=== PATIENT | male | born 1960 | race American Indian/Alaskan Native ===

== ENCOUNTER 2016-12-31 20:50 | Inpatient (IN) | payer MEDICAID ==
[2016-12-31 20:51] VITALS: BMI 26.4
[2016-12-31] MEDS ORDERED: Vitamins A & D Oint UD Foilpak ONE (23:17)
[2017-01-01 00:01] LABS: BASO % 0.5 % (0.0-2.0); EOS # 0.2 K/uL (0.0-0.7); EOS % 7.2 % (0.0-4.0); HEMATOCRIT 36.8 % (35.0-51.0); LYMPH # 1.5 K/uL (1.0-4.3); LYMPH % 43.6 % (20.0-40.0); MEAN CELL VOLUME 104.8 fL (80.0-94.0); MEAN CORPUSCULAR HEMOGLOBIN 35.3 pg (27.0-31.0); MEAN CORPUSCULAR HGB CONC 33.7 g/dL (33.0-37.0); MEAN PLATELET VOLUME 9.3 fL (7.2-11.7); MONO # 0.3 K/uL (0.0-0.8); NRBC % 0.4 % (0.0-2.0); RED CELL DISTRIBUTION WIDTH 13.4 % (11.5-14.5); WHITE BLOOD COUNT 3.4 K/uL (4.8-10.8)
[2017-01-01 00:06] LABS: CHLORIDE 97 mmol/L (98-107)
[2017-01-01 00:07] LABS: POTASSIUM 3.4 mmol/L (3.6-5.2)
[2017-01-01 00:09] LABS: AST/SGOT 153 U/L (17-59); BILIRUBIN,TOTAL 0.8 mg/dL (0.2-1.3); CARBON DIOXIDE 24 mmol/L (22-30); GFR AFRICAN-AMERICAN > 60
[2017-01-01 00:10] LABS: ALB/GLOB RATIO 0.9 (1.0-2.1); ALCOHOL SERUM 296 mg/dl (0-10); ALKALINE PHOSPHATASE 102 U/L (38-126); ALT/SGPT 23 U/L (21-72); BLOOD UREA NITROGEN 15 mg/dL (9-20); CALCIUM 8.8 mg/dl (8.6-10.4); GLUCOSE,RANDOM 123 mg/dL (75-110); TOTAL PROTEIN 9.1 g/dL (6.3-8.3)
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
[2017-01-01 01:11] LABS: SODIUM 147 mmol/L (132-148)
[2017-01-01] MEDS ORDERED: Potassium Chloride 20 mEq ER Tab PO STA (01:57)
--- NOTE | 2017-01-01 03:30 | CP.PCM.HP ---
<Carla Aldridge - Last Filed: 01/01/17 03:24> History of Present Illness - History of Present Illness History of Present Illness: CC: "seizures" HPI: Patient is a 56 year old male with medical history pertinent for alcohol abuse. Patient states he came to the hospital due to increased seizure activity today. Patient does not recall seizures. He admits to drinking 3 pints of vodka daily. He cannot recall when he last had seizures from withdrawal. Patient's last drink was earlier this evening. He denies tremors, visual, auditory and tactile hallucinations. He denies chest pain, shortness of breath, nausea, vomiting, urinary symptoms, diarrhea, constipation. Patient admits to umbilical and left lower quadrant abdominal pain. PMD: Dr. Huang PMH: Alcohol abuse, seizures, hypertension Medications: Dilantin 100 mg , Phenobarbital Allergies: NKDA Family History: not pertinent Social: Denies tobacco and illicit drug use. Drinks 3 pints of vodka daily. Present on Admission - Present on Admission Any Indicators Present on Admission: No History of DVT/PE: No History of Uncontrolled Diabetes: No Urinary Catheter: No Decubitus Ulcer Present: No Review of Systems - Constitutional Constitutional: absent: Chills, Fever - EENT Eyes: absent: Change in Vision - Cardiovascular Cardiovascular: absent: Chest Pain, Dyspnea - Respiratory Respiratory: absent: Cough, Dyspnea, Dyspnea on Exertion - Gastrointestinal Gastrointestinal: Abdominal Pain. absent: Constipation, Diarrhea, Nausea, Vomiting - Genitourinary Genitourinary: absent: Change in Urinary Stream - Integumentary Integumentary: Dry Skin - Neurological Neurological: absent: Tremor - Psychiatric Psychiatric: Anxiety, Depression. absent: Auditory Hallucinations, Hallucinations, Visual Hallucinations Past Patient History - Infectious Disease Hx of Infectious Diseases: None - Past Medical History & Family History Past Medical History?: Yes - Past Social History Smoking Status: Never Smoked - CARDIAC Hx Hypertension: Yes - PULMONARY Hx Bronchitis: Yes - NEUROLOGICAL Hx Seizures: Yes - HEENT Hx HEENT Problems: No - RENAL Hx Chronic Kidney Disease: Yes - ENDOCRINE/METABOLIC Hx Endocrine Disorders: No - INTEGUMENTARY Hx Dermatological Problems: Yes Other/Comment: multiple pimple like dark spots at the back/chest - MUSCULOSKELETAL/RHEUMATOLOGICAL Hx Arthritis: Yes Hx Fractures: Yes Hx Rheumatoid Arthritis: Yes - GASTROINTESTINAL Hx Gall Bladder Disease: Yes (s/p cholecystectomy) Hx Gastritis: Yes - PSYCHIATRIC Hx Anxiety: Yes Hx Depression: Yes Hx Post Traumatic Stress Disorder: Yes Hx Substance Use: No - SURGICAL HISTORY Hx Cholecystectomy: Yes - ANESTHESIA Hx Anesthesia: Yes Hx Anesthesia Reactions: No Hx Malignant Hyperthermia: No Meds Allergies/Adverse Reactions: Allergies Allergy/AdvReac Type Severity Reaction Status Date / Time No Known Allergies Allergy Verified 12/31/16 21:17 Physical Exam - Constitutional Appears: Non-toxic, No Acute Distress - Head Exam Head Exam: ATRAUMATIC, NORMAL INSPECTION, NORMOCEPHALIC - Eye Exam Eye Exam: EOMI, Normal appearance, PERRL - ENT Exam ENT Exam: Mucous Membranes Moist - Neck Exam Neck exam: Positive for: Normal Inspection - Respiratory Exam Respiratory Exam: Clear to Auscultation Bilateral, NORMAL BREATHING PATTERN. absent: Rales, Rhonchi, Wheezes - Cardiovascular Exam Cardiovascular Exam: +S1, +S2 - GI/Abdominal Exam GI & Abdominal Exam: Guarding, Normal Bowel Sounds, Soft, Tenderness - Extremities Exam Extremities exam: Positive for: normal inspection - Neurological Exam Neurological exam: Alert, Oriented x3 - Psychiatric Exam Psychiatric exam: Normal Affect, Normal Mood - Skin Skin Exam: Dry, Rash Results - Vital Signs Recent Vital Signs: Last Vital Signs Temp 98.1 F 01/01/17 02:30 Pulse 106 H 01/01/17 02:30 Resp 20 01/01/17 02:30 BP 131/76 01/01/17 02:30 Pulse Ox 96 01/01/17 02:30 - Labs Result Diagrams: 12/31/16 23:55 12/31/16 23:55 Assessment & Plan - Assessment and Plan (Free Text) Assessment: 1. EtOH Abuse Ativan 1 mg IVP Q3 PRN Ativan 1 mg po q6 MARISA Folic acid po daily MV po daily Thiamine po daily f/u CMP, Mag, Phos AM f/u hepatitis panel, hiv aspiration precautions seizure precautions 2. Seizures Dilantin 100 mg po TID Phenobarbital 32.4 mg po daily seizure precautions neuro checks 3. Prophylaxis SCD Protonix 20 mg po daily - Date & Time Date: 01/01/17 Time: 03:41 <Maxim Ugarte - Last Filed: 01/01/17 06:35> Results - Vital Signs Recent Vital Signs: Last Vital Signs Temp 98.1 F 01/01/17 02:30 Pulse 106 H 01/01/17 02:30 Resp 20 01/01/17 03:08 BP 131/76 01/01/17 02:30 Pulse Ox 96 01/01/17 03:08 - Labs Result Diagrams: 01/01/17 06:03 12/31/16 23:55 Labs: Laboratory Results - last 24 hr 01/01/17 06:03 WBC 3.1 L RBC 2.96 L Hgb 10.6 L Hct 30.9 L MCV 104.4 H MCH 35.8 H MCHC 34.2 RDW 12.9 Plt Count 83 L D MPV 8.5 Neut % (Auto) 39.3 L Lymph % (Auto) 35.5 [place] % (Auto) 18.1 H Eos % (Auto) 6.0 H Baso % (Auto) 1.1 Neut # 1.2 L Lymph # 1.1 [place] # 0.6 Eos # 0.2 Baso # 0.0 Assessment & Plan - Date & Time Date: 01/01/17 (I have seen and examined the patient. I agree with the findings and plan of care as documented by Dr. Aldridge. Patient with alcohol abuse and history of seizure. [facility] protocol. Monitor for withdrawal symptoms. Monitor for acute changes.) Time: 06:33 Attending/Attestation - Attestation I have personally seen and examined this patient.: Yes I have fully participated in the care of the patient.: Yes I have reviewed all pertinent clinical information: Yes
[2017-01-01 06:17] LABS: BASO % 1.1 % (0.0-2.0); EOS # 0.2 K/uL (0.0-0.7); HEMATOCRIT 30.9 % (35.0-51.0); LYMPH # 1.1 K/uL (1.0-4.3); LYMPH % 35.5 % (20.0-40.0); MEAN CELL VOLUME 104.4 fL (80.0-94.0); MEAN CORPUSCULAR HEMOGLOBIN 35.8 pg (27.0-31.0); MEAN CORPUSCULAR HGB CONC 34.2 g/dL (33.0-37.0); MEAN PLATELET VOLUME 8.5 fL (7.2-11.7); MONO # 0.6 K/uL (0.0-0.8); MONO % 18.1 % (0.0-10.0); NRBC % 0.4 % (0.0-2.0); RED CELL DISTRIBUTION WIDTH 12.9 % (11.5-14.5); WHITE BLOOD COUNT 3.1 K/uL (4.8-10.8)
[2017-01-01 06:21] LABS: CHLORIDE 97 mmol/L (98-107); POTASSIUM 3.1 mmol/L (3.6-5.2); SODIUM 141 mmol/L (132-148)
[2017-01-01 06:23] LABS: ALB/GLOB RATIO 0.9 (1.0-2.1); AST/SGOT 129 U/L (17-59); BILIRUBIN,TOTAL 0.8 mg/dL (0.2-1.3); CARBON DIOXIDE 26 mmol/L (22-30); GFR AFRICAN-AMERICAN > 60; TOTAL PROTEIN 7.5 g/dL (6.3-8.3)
[2017-01-01 06:24] LABS: ALKALINE PHOSPHATASE 85 U/L (38-126); ALT/SGPT 33 U/L (21-72); BLOOD UREA NITROGEN 12 mg/dL (9-20); GLUCOSE,RANDOM 96 mg/dL (75-110); MAGNESIUM 1.4 mg/dL (1.6-2.3); PHOSPHOROUS 3.9 mg/dL (2.5-4.5)
[2017-01-01] MEDS ORDERED: Potassium Chloride 20 mEq 100 ML IVPB ONE ×2 (08:00→10:00)
[2017-01-01] MEDS: Multiple Vitamins Tab PO SCH (10:24)
[2017-01-01] MEDS: Pantoprazole 20 mg EC Tab PO SCH (10:27)
--- NOTE | 2017-01-01 11:40 | CP.PCM.PN ---
<GovindimeldaBranden chappell - Last Filed: 01/01/17 11:43> Subjective - Date & Time of Evaluation Date of Evaluation: 01/01/17 Time of Evaluation: 08:00 - Subjective Subjective: PGY-1 Medicine Progress Note for Dr. Rich Patient seen and examined at bedside. No acute event overnight. Patient complaining of tremors which was not present yesterday. Patient currently denying any pain. Tolerating PO intake. Patient has no other complaints at this time. Denied fever/chills, cp, sob, palpitations, abd pain, n/v/d, constipation , incontinence. Objective - Vital Signs/Intake and Output Vital Signs (last 24 hours): Temp Pulse Resp BP Pulse Ox 98.1 F 97 H 18 166/96 H 96 01/01/17 08:57 01/01/17 08:57 01/01/17 08:57 01/01/17 08:57 01/01/17 03:08 Intake and Output: 01/01/17 01/01/17 06:59 18:59 Intake Total 280 Balance 280 - Medications Medications: Current Medications Chlordiazepoxide (Librium) 25 mg PO Q6 MARISA PRN Reason: Taper Stop: 01/04/17 11:59 Folic Acid (Folic Acid) 1 mg PO DAILY [facility] Last Admin: 01/01/17 10:24 Dose: 1 mg Potassium Chloride (Potassium Chloride 20 Meq/100 Ml) 100 mls @ 50 mls/hr IVPB ONCE ONE Stop: 01/01/17 11:59 Lorazepam (Ativan) 2 mg IVP Q2 PRN PRN Reason: Seizure activity Multivitamins (Hexavitamin) 1 tab PO DAILY [facility] Last Admin: 01/01/17 10:24 Dose: 1 tab Pantoprazole Sodium (Protonix Ec Tab) 20 mg PO DAILY [facility] Last Admin: 01/01/17 10:27 Dose: 20 mg Phenytoin Sodium (Dilantin) 100 mg PO TID [facility] Last Admin: 01/01/17 10:24 Dose: 100 mg Thiamine HCl (Vitamin B1 Tab) 100 mg PO DAILY [facility] Last Admin: 01/01/17 10:24 Dose: 100 mg - Labs Labs: 01/01/17 06:03 01/01/17 06:03 - Constitutional Appears: No Acute Distress - Head Exam Head Exam: ATRAUMATIC, NORMOCEPHALIC - Eye Exam Eye Exam: EOMI, Normal appearance Pupil Exam: PERRL - ENT Exam ENT Exam: Mucous Membranes Dry - Respiratory Exam Respiratory Exam: Clear to Ausculation Bilateral, NORMAL BREATHING PATTERN - Cardiovascular Exam Cardiovascular Exam: REGULAR RHYTHM, +S1, +S2 - GI/Abdominal Exam GI & Abdominal Exam: Soft, Normal Bowel Sounds. absent: Distended, Firm, Guarding, Rigid, Tenderness - Extremities Exam Extremities Exam: Normal Capillary Refill - Back Exam Back Exam: absent: CVA tenderness (L), CVA tenderness (R) - Neurological Exam Neurological Exam: Alert, Awake, CN II-XII Intact, Oriented x3 - Psychiatric Exam Psychiatric exam: Normal Affect, Normal Mood - Skin Skin Exam: Dry, Normal Color, Warm Assessment and Plan - Assessment and Plan (Free Text) Plan: 1. EtOH Abuse Ativan 2 mg IVP Q2 PRN Ativan 2 mg IM once Librium taper Folic acid po daily MV po daily Thiamine po daily f/u hepatitis panel, hiv aspiration precautions seizure precautions f/u daily labs 2. Seizures Dilantin 100 mg po TID seizure precautions neuro checks 3. Hypokalemia K+ 3.1 Potassium chloride 40 meq PO x 1 and 20 mEq IVPB 4. Hypomagnesemia Mg 1.4 Mag sulfate 1 gm x 1 5. Prophylaxis SCD Protonix 20 mg po daily <Ana Rich V - Last Filed: 01/01/17 19:25> Objective - Vital Signs/Intake and Output Vital Signs (last 24 hours): Temp Pulse Resp BP Pulse Ox 98.1 F 97 H 20 156/87 H 96 01/01/17 16:00 01/01/17 16:13 01/01/17 16:00 01/01/17 16:00 01/01/17 16:00 Intake and Output: 01/01/17 01/02/17 18:59 06:59 Intake Total 700 Balance 700 - Medications Medications: Current Medications Chlordiazepoxide (Librium) 25 mg PO Q8 MARISA PRN Reason: Taper Stop: 01/04/17 11:59 Last Admin: 01/01/17 14:25 Dose: 25 mg Folic Acid (Folic Acid) 1 mg PO DAILY [facility] Last Admin: 01/01/17 10:24 Dose: 1 mg Lorazepam (Ativan) 2 mg IVP Q2 PRN PRN Reason: Seizure activity Multivitamins (Hexavitamin) 1 tab PO DAILY [facility] Last Admin: 01/01/17 10:24 Dose: 1 tab Pantoprazole Sodium (Protonix Ec Tab) 20 mg PO DAILY [facility] Last Admin: 01/01/17 10:27 Dose: 20 mg Phenytoin Sodium (Dilantin) 100 mg PO TID [facility] Last Admin: 01/01/17 17:38 Dose: 100 mg Thiamine HCl (Vitamin B1 Tab) 100 mg PO DAILY [facility] Last Admin: 01/01/17 10:24 Dose: 100 mg - Labs Labs: 01/01/17 06:03 01/01/17 06:03 Attending/Attestation - Attestation I have personally seen and examined this patient.: Yes I have fully participated in the care of the patient.: Yes I have reviewed all pertinent clinical information, including history, physical exam and plan: Yes Notes (Text): patient seen, examined and case discussed with day time resident. patient seen at bedside. patient reporting mild tremors. patient had lack of peripheral IV access. Patient's Ativan changed to 2mg IV 2H PRN seizure activity and recieved IM dose at bedside while awaiting access. Patient started on librium taper 25mg PO Q 8 hours since patient is heavy alcohol user, daily user, and will monitor LFTs while on Librium. Hep panel is negative. Patient had mild tremors on examination but is conversant. Patient had lipase drawn which was negative. patient's electrolytes repleted. patient's phenobarbital d/c since it did not appear patient is actually on this medication. ordered for dilantin level. Patient is thrombocytopenia likely secondary to alcohol associated bone marrow suppression. Will continue to monitor. VTE contraindication secondary to thrombocytopenia.
[2017-01-02 08:11] LABS: BASO % 0.7 % (0.0-2.0); EOS # 0.1 K/uL (0.0-0.7); EOS % 3.9 % (0.0-4.0); HEMATOCRIT 35.3 % (35.0-51.0); LYMPH # 0.8 K/uL (1.0-4.3); MEAN CELL VOLUME 104.1 fL (80.0-94.0); MEAN CORPUSCULAR HEMOGLOBIN 35.9 pg (27.0-31.0); MEAN CORPUSCULAR HGB CONC 34.5 g/dL (33.0-37.0); MEAN PLATELET VOLUME 8.9 fL (7.2-11.7); MONO # 0.6 K/uL (0.0-0.8); MONO % 14.6 % (0.0-10.0); NRBC % 0.8 % (0.0-2.0); RED CELL DISTRIBUTION WIDTH 13.1 % (11.5-14.5); WHITE BLOOD COUNT 3.8 K/uL (4.8-10.8)
[2017-01-02 08:22] LABS: CHLORIDE 95 mmol/L (98-107); POTASSIUM 3.1 mmol/L (3.6-5.2); SODIUM 137 mmol/L (132-148)
[2017-01-02 08:24] LABS: ALB/GLOB RATIO 0.8 (1.0-2.1); ALKALINE PHOSPHATASE 75 U/L (38-126); AST/SGOT 117 U/L (17-59); BILIRUBIN,TOTAL 1.5 mg/dL (0.2-1.3); BLOOD UREA NITROGEN 7 mg/dL (9-20); CARBON DIOXIDE 27 mmol/L (22-30); GFR AFRICAN-AMERICAN > 60; TOTAL PROTEIN 8.3 g/dL (6.3-8.3)
[2017-01-02 08:25] LABS: ALT/SGPT 35 U/L (21-72); GLUCOSE,RANDOM 100 mg/dL (75-110); MAGNESIUM 1.9 mg/dL (1.6-2.3); PHOSPHOROUS 3.8 mg/dL (2.5-4.5)
--- NOTE | 2017-01-02 08:28 | CP.PCM.PN ---
<Moon Hansen - Last Filed: 01/02/17 11:41> Subjective - Date & Time of Evaluation Date of Evaluation: 01/02/17 Time of Evaluation: 07:15 - Subjective Subjective: Internal medicine progress note for Dr. Rich- Moon Hansen, PGY-1 Pt S & E at bedside. Pt reports that he has been sweating, feeling things crawling under his skin, been urinating more than usual, has had poor intermittent sleep, and hasn't had a BM in 2 days (reports usual BM daily). No other complaints at this time. Denies N/V/F/C, SOB, CP, abdominal pain. Objective - Vital Signs/Intake and Output Vital Signs (last 24 hours): Temp Pulse Resp BP Pulse Ox 98.4 F 97 H 20 144/94 H 98 01/02/17 07:30 01/02/17 07:30 01/02/17 07:30 01/02/17 07:30 01/02/17 07:30 Intake and Output: 01/02/17 01/02/17 06:59 18:59 Intake Total 540 Balance 540 - Medications Medications: Current Medications Chlordiazepoxide (Librium) 25 mg PO Q8 MARISA PRN Reason: Taper Stop: 01/04/17 11:59 Last Admin: 01/02/17 05:42 Dose: 25 mg Folic Acid (Folic Acid) 1 mg PO DAILY [facility] Last Admin: 01/01/17 10:24 Dose: 1 mg Lorazepam (Ativan) 2 mg IVP Q2 PRN PRN Reason: Seizure activity Multivitamins (Hexavitamin) 1 tab PO DAILY [facility] Last Admin: 01/01/17 10:24 Dose: 1 tab Pantoprazole Sodium (Protonix Ec Tab) 20 mg PO DAILY [facility] Last Admin: 01/01/17 10:27 Dose: 20 mg Phenytoin Sodium (Dilantin) 100 mg PO TID [facility] Last Admin: 01/01/17 17:38 Dose: 100 mg Thiamine HCl (Vitamin B1 Tab) 100 mg PO DAILY [facility] Last Admin: 01/01/17 10:24 Dose: 100 mg - Labs Labs: 01/02/17 08:03 01/01/17 06:03 - Constitutional Appears: Non-toxic, No Acute Distress - Head Exam Head Exam: ATRAUMATIC, NORMAL INSPECTION, NORMOCEPHALIC - Eye Exam Eye Exam: EOMI, Normal appearance, Nystagmus (lateral, B/L), PERRL Pupil Exam: NORMAL ACCOMODATION, PERRL - ENT Exam ENT Exam: Mucous Membranes Moist, Normal Exam Additional comments: Poor dentition - Neck Exam Neck Exam: Full ROM, Normal Inspection - Respiratory Exam Respiratory Exam: Clear to Ausculation Bilateral, NORMAL BREATHING PATTERN. absent: Accessory Muscle Use, Rales, Rhonchi, Wheezes - Cardiovascular Exam Cardiovascular Exam: REGULAR RHYTHM, +S1, +S2 - GI/Abdominal Exam GI & Abdominal Exam: Soft, Normal Bowel Sounds. absent: Distended, Firm, Guarding, Tenderness - Extremities Exam Extremities Exam: Full ROM. absent: Normal Inspection (Right hand with fine tremors upon inspection), Pedal Edema, Tenderness - Back Exam Back Exam: NORMAL INSPECTION. absent: CVA tenderness (L), CVA tenderness (R) - Neurological Exam Neurological Exam: Alert, Awake, CN II-XII Intact, Oriented x3 - Psychiatric Exam Psychiatric exam: Normal Affect, Normal Mood - Skin Skin Exam: Dry, Warm. absent: Normal Color (Multiple small circular scars over upper extremities, some in linear distribution) Assessment and Plan - Assessment and Plan (Free Text) Assessment: 1. EtOH Abuse/Withdrawal Ativan 2 mg IVP Q2 PRN Librium 25mg stat x 1 Librium taper Folic acid po daily MV po daily Thiamine po daily Hepatitis A, B, C neg HIV Neg aspiration precautions seizure precautions f/u daily labs Transfer to tele 2. Seizures Dilantin 100 mg po TID seizure precautions neuro checks Re-started Phenobarbitol 60mg daily 3. Hypokalemia K 3.1 Potassium chloride 60 meq PO x 1 Monitor 4. Hypomagnesemia- resolved Mg 1.9 Monitor 5. Pancytopenia likely 2/2 ETOH abuse WBC 3.8 Plt 92 Appears to be chronic Noted on previous labs 6. Prophylaxis SCD Protonix 20 mg po daily VTE ppx contraindicated 2/2 pancytopenia 7. Dispo Transfer to tele monitor for DTs DW attending <Ana Rich V - Last Filed: 01/03/17 09:27> Objective - Vital Signs/Intake and Output Vital Signs (last 24 hours): Temp Pulse Resp BP Pulse Ox 97.9 F 85 18 154/100 H 97 01/03/17 08:37 01/03/17 08:37 01/03/17 08:37 01/03/17 08:37 01/03/17 08:37 - Medications Medications: Current Medications Folic Acid (Folic Acid) 1 mg PO DAILY [facility] Last Admin: 01/03/17 09:11 Dose: 1 mg Lorazepam (Ativan) 2 mg IVP Q2 PRN PRN Reason: Seizure activity Last Admin: 01/03/17 00:46 Dose: 2 mg Lorazepam (Ativan) 1 mg PO Q4H PRN PRN Reason: Symptoms of alcohol withdrawl Last Admin: 01/03/17 05:57 Dose: 1 mg Lorazepam (Ativan) 1 mg PO Q4 MARISA PRN Reason: Taper Stop: 01/06/17 15:44 Last Admin: 01/03/17 09:10 Dose: 1 mg Multivitamins (Hexavitamin) 1 tab PO DAILY [facility] Last Admin: 01/03/17 09:11 Dose: 1 tab Pantoprazole Sodium (Protonix Ec Tab) 20 mg PO DAILY [facility] Last Admin: 01/03/17 09:11 Dose: 20 mg Phenobarbital (Phenobarbital Tab) 64.8 mg PO DAILY [facility] Last Admin: 01/03/17 09:11 Dose: 64.8 mg Phenytoin Sodium (Dilantin) 100 mg PO TID [facility] Last Admin: 01/03/17 09:11 Dose: 100 mg Thiamine HCl (Vitamin B1 Tab) 100 mg PO DAILY [facility] Last Admin: 01/03/17 09:11 Dose: 100 mg Trazodone HCl (Desyrel) 50 mg PO HS PRN PRN Reason: Insomnia - Labs Labs: 01/03/17 07:22 01/03/17 07:22 Attending/Attestation - Attestation I have personally seen and examined this patient.: Yes I have fully participated in the care of the patient.: Yes I have reviewed all pertinent clinical information, including history, physical exam and plan: Yes Notes (Text): This is late computer entry for 01/02/17. Patient seen, examined and case discussed with day-time resident. Patient reporting mild tremors and tactile hallucinations. Patient have received IV ativan prior to my arrival; reports symptoms have approved. Patient given additional Libirium 25mg PO X1 in addition to his current taper. Patient ient Discussed with patient's nurse, Sandy, ordered for telemetry given patient's heavy alcohol use and concern for DTs. Patient to move to [id number] per discussion with the nurse. Patient reports he takes both Dilantin and Phenobarbital, and he does not take them while he drinks. He has insight that it can kill if he does both. Patient is pending Dilantin level. Ordered again dilantin level. Patient's thrombocytopenia mildly improving. Electrolyte repleted today. Patient's status changed to inpatient given patient's is withdrawing from alcohol and further monitoring for possible delirium tremens.
[2017-01-02] MEDS: Multiple Vitamins Tab PO SCH (10:46)
[2017-01-02] MEDS: Pantoprazole 20 mg EC Tab PO SCH (10:48)
[2017-01-02] MEDS ORDERED: Potassium Chloride 20 mEq ER Tab PO ONE ×3 (11:45→15:00)
[2017-01-02] MEDS: Potassium Chloride 20 mEq ER Tab PO ONE (14:02)
--- NOTE | 2017-01-02 15:42 | PCM.PSYCH ---
Initial Psychiatric Evaluation - Initial Psychiatric Evaluation Type of Admission: Voluntary Legal Status: Capacity Chief Complaint (in patient's own words): "I need to stop drinking so much" History of Present Illness and Precipitating Events: Pt seen, chart reviewed, case discussed with team. 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 Previous notes indicates patient is homeless. Pt is well known to the ED staff for recurrent episodes of alcohol intoxication, the patient was admitted this time due to increase in seizure activity. Pt has extensive history of EtOH use d/o. Psych was consulted on this patient for treatment and management of EtOH use. The pt is aware of his problem and is aware of his need to stop and is concerned about how his drinking may effect a future with his son. The pt reported that he started drinking at 16 and drank progressively more as time went on, he currently drinks about 3 pints of vodka daily. He came to the ED due to increased withdrawal symptoms and stated that before he was given medication he was shaking so much he couldn't even hold a cup still. The pt was in rehab at the [facility] 1-2 years ago, and reported that was sober during those 8 months as well as 5 months afterwards before he relapsed. The pt attended AA meetings during that time as the only outpt therapy. He is very amenable to treatment and agrees that he needs help and is willing to work with the team here. Pt currently denies any suicidal ideation, self harming behaviors , hallucinations, or delusions. Psych: EtOH use d/o PMH: seizures, hypertension Medications: Dilantin 100 mg , Phenobarbital Allergies: NKDA Family History: no significant psychiatric history Social: Denies tobacco and illicit drug use. Drinks 3 pints of vodka daily. Current Medications: Active Medications Generic Name Dose Route Start Last Admin Trade Name Freq PRN Reason Stop Dose Admin Folic Acid 1 mg 01/01/17 10:00 01/02/17 13:31 Folic Acid PO 1 mg DAILY MARISA Administration Lorazepam 2 mg 01/02/17 11:17 Ativan IVP Q2 PRN Seizure activity Lorazepam 1 mg 01/02/17 15:38 Ativan PO Q4H PRN Symptoms of alcohol withdrawl Lorazepam 0 mg 01/02/17 15:45 Ativan PO 01/06/17 15:44 .TAPER MARISA Taper Multivitamins 1 tab 01/01/17 10:00 01/02/17 10:46 Hexavitamin PO 1 tab DAILY MARISA Administration Pantoprazole Sodium 20 mg 01/01/17 10:00 01/02/17 10:48 Protonix Ec Tab PO 20 mg DAILY MARISA Administration Phenobarbital 64.8 mg 01/02/17 14:00 01/02/17 13:36 Phenobarbital Tab PO 64.8 mg DAILY MARISA Administration Phenytoin Sodium 100 mg 01/01/17 10:00 01/02/17 13:22 Dilantin PO 100 mg TID MARISA Administration Thiamine HCl 100 mg 01/01/17 10:00 01/02/17 10:46 Vitamin B1 Tab PO 100 mg DAILY MARISA Administration Trazodone HCl 50 mg 01/02/17 15:38 Desyrel PO HS PRN Insomnia Past Psychiatric History - Past Psychiatric History Previous Treatment History: None Pertinent Medical Hx (Current Medical&Sleep Prob, Allergies): Allergies Allergy/AdvReac Type Severity Reaction Status Date / Time No Known Allergies Allergy Verified 12/31/16 21:17 Phenobarbital 60 mg PO DAILY 01/01/17 Phenytoin, Extended [Dilantin Kapseals] 100 mg PO TID 01/01/17 Review of Systems - Review of Systems All systems: reviewed and no additional remarkable complaints except - Neurological Neurological: Tremor (mild) - Psychiatric Psychiatric: Anxiety, Irritability. absent: Auditory Hallucinations, Suicidal Ideation, Visual Hallucinations Mental Status Examination - Personal Presentation Personal Presentation: Looks stated age - Affect Affect: Constricted - Motor Activity Motor Activity: Calm - Reliability in Providing Information Reliability in Providing Information: Good - Speech Speech: Organized - Mood Mood: Anxious - Formal Thought Process Formal Thought Process: No Impairment - Obsessions/Compulsions Obsessions: No Compulsions: No - Cognitive Functions Orientation: Person, Place, Situation, Time Sensorium: Alert Attention/Concentration: Attentive Abstract Thinking: [place] Estimate of Intelligence: Below average Judgement: Imparied, as evidence by: Poor judgement, Intact, as evidence by: Insight regarding need for hospitalization - Risk Risk: Elopement, Seizure, Withdrawal, Falls, Diminished functioning - Strength & Assets Inventory Strength & Assets Inventory: Employment history - Limitations Limitations: Living alone DSM 5 DX - DSM 5 DSM 5 Diagnosis: Alcohol use disorder severe Alcohol withdrawal uncomplicated - Recommended/Plan of Treatment Treatment Recommendations and Plan of Treatment: Alcohol use disorder severe CBT Psychoeducation Supportive therapy, individual therapy Use TX for abstinence Alcohol withdrawal uncomplicated CBT Psychoeducation Supportive therapy, individual therapy Ativan when necessary Start Ativan taper Start folic acid/thiamine/multivitamin - Smoking Cessation Smoking Cessation Initiated: No
[2017-01-03 07:41] LABS: BASO % 0.7 % (0.0-2.0); EOS # 0.2 K/uL (0.0-0.7); EOS % 6.7 % (0.0-4.0); HEMATOCRIT 36.6 % (35.0-51.0); LYMPH # 0.8 K/uL (1.0-4.3); LYMPH % 22.7 % (20.0-40.0); MEAN CELL VOLUME 105.7 fL (80.0-94.0); MEAN CORPUSCULAR HEMOGLOBIN 36.4 pg (27.0-31.0); MEAN CORPUSCULAR HGB CONC 34.5 g/dL (33.0-37.0); MEAN PLATELET VOLUME 8.6 fL (7.2-11.7); MONO # 0.6 K/uL (0.0-0.8); NRBC % 0.4 % (0.0-2.0); RED CELL DISTRIBUTION WIDTH 13.1 % (11.5-14.5); WHITE BLOOD COUNT 3.4 K/uL (4.8-10.8)
[2017-01-03 08:22] LABS: CHLORIDE 97 mmol/L (98-107)
[2017-01-03 08:23] LABS: POTASSIUM 3.4 mmol/L (3.6-5.2); SODIUM 139 mmol/L (132-148)
[2017-01-03 08:25] LABS: ALB/GLOB RATIO 0.8 (1.0-2.1); ALKALINE PHOSPHATASE 71 U/L (38-126); ALT/SGPT 40 U/L (21-72); AST/SGOT 145 U/L (17-59); BILIRUBIN,TOTAL 1.1 mg/dL (0.2-1.3); BLOOD UREA NITROGEN 8 mg/dL (9-20); CARBON DIOXIDE 28 mmol/L (22-30); GFR AFRICAN-AMERICAN > 60; TOTAL PROTEIN 8.3 g/dL (6.3-8.3)
[2017-01-03 08:26] LABS: GLUCOSE,RANDOM 102 mg/dL (75-110); PHOSPHOROUS 4.2 mg/dL (2.5-4.5)
[2017-01-03] MEDS: Multiple Vitamins Tab PO SCH (09:11)
[2017-01-03] MEDS: Pantoprazole 20 mg EC Tab PO SCH (09:11)
[2017-01-03] MEDS ORDERED: Potassium Chloride 20 mEq ER Tab PO ONE ×3 (10:00→12:00)
--- NOTE | 2017-01-03 16:34 | CP.PCM.PN ---
Subjective - Date & Time of Evaluation Date of Evaluation: 01/03/17 Time of Evaluation: 07:30 - Subjective Subjective: Internal medicine progress note for Dr. Mendez Hansen, PGY-1 Pt S & E at bedside. Pt continue to report diaphoresis, feeling things crawling under his skin, been urinating more than usual, poor intermittent sleep, and hasn't had a BM in 3 days (reports usual BM daily). No other complaints at this time. Denies N/V/F/C , SOB, CP, abdominal pain. Objective - Vital Signs/Intake and Output Vital Signs (last 24 hours): Temp Pulse Resp BP Pulse Ox 97.9 F 85 18 154/100 H 97 01/03/17 08:37 01/03/17 08:37 01/03/17 08:37 01/03/17 08:37 01/03/17 08:37 - Medications Medications: Current Medications Bisacodyl (Dulcolax) 5 mg PO ONCE ONE Stop: 01/03/17 16:27 Folic Acid (Folic Acid) 1 mg PO DAILY [facility] Last Admin: 01/03/17 09:11 Dose: 1 mg Lorazepam (Ativan) 2 mg IVP Q2 PRN PRN Reason: Seizure activity Last Admin: 01/03/17 00:46 Dose: 2 mg Lorazepam (Ativan) 1 mg PO Q4H PRN PRN Reason: Symptoms of alcohol withdrawl Last Admin: 01/03/17 05:57 Dose: 1 mg Lorazepam (Ativan) 1 mg PO Q6 MARISA PRN Reason: Taper Stop: 01/06/17 15:44 Last Admin: 01/03/17 13:55 Dose: 1 mg Multivitamins (Hexavitamin) 1 tab PO DAILY [facility] Last Admin: 01/03/17 09:11 Dose: 1 tab Pantoprazole Sodium (Protonix Ec Tab) 20 mg PO DAILY [facility] Last Admin: 01/03/17 09:11 Dose: 20 mg Phenobarbital (Phenobarbital Tab) 64.8 mg PO DAILY [facility] Last Admin: 01/03/17 09:11 Dose: 64.8 mg Phenytoin Sodium (Dilantin) 100 mg PO TID [facility] Last Admin: 01/03/17 13:57 Dose: 100 mg Thiamine HCl (Vitamin B1 Tab) 100 mg PO DAILY [facility] Last Admin: 01/03/17 09:11 Dose: 100 mg Trazodone HCl (Desyrel) 50 mg PO HS PRN PRN Reason: Insomnia - Labs Labs: 01/03/17 07:22 01/03/17 07:22 - Constitutional Appears: Non-toxic, No Acute Distress - Head Exam Head Exam: ATRAUMATIC, NORMAL INSPECTION, NORMOCEPHALIC - Eye Exam Eye Exam: EOMI, Normal appearance, PERRL Pupil Exam: NORMAL ACCOMODATION, PERRL - ENT Exam ENT Exam: Mucous Membranes Moist. absent: Normal Exam (poor dentition) - Neck Exam Neck Exam: Normal Inspection - Respiratory Exam Respiratory Exam: Clear to Ausculation Bilateral, NORMAL BREATHING PATTERN. absent: Rales, Rhonchi, Wheezes - Cardiovascular Exam Cardiovascular Exam: REGULAR RHYTHM, +S1, +S2 - GI/Abdominal Exam GI & Abdominal Exam: Soft, Normal Bowel Sounds. absent: Distended, Tenderness - Extremities Exam Extremities Exam: absent: Normal Inspection (Right hand with fine tremors), Pedal Edema - Neurological Exam Neurological Exam: Alert, Awake, CN II-XII Intact, Oriented x3 - Psychiatric Exam Psychiatric exam: Depressed, Normal Affect - Skin Skin Exam: Dry, Intact, Warm. absent: Normal Color (multiple well healed scars in over upper extremities, some in linear distribution) Assessment and Plan - Assessment and Plan (Free Text) Assessment: 1. EtOH Abuse/Withdrawal Ativan 2 mg IVP Q2 PRN Librium 25mg stat x 1 Librium taper Folic acid po daily MV po daily Thiamine po daily Hepatitis A, B, C neg HIV Neg aspiration precautions seizure precautions f/u daily labs Psych following- started pt on Ativan taper 2. Seizures Dilantin 100 mg po TID seizure precautions neuro checks Cont Phenobarbitol 60mg daily Ativan 2mg Q2H PRN 3. Hypokalemia K 3.4 Potassium chloride 60 meq PO x 1 Monitor 4. Constipation Dulcolax once Monitor 5. Pancytopenia likely 2/2 ETOH abuse WBC 3.4 from 3.8 Plt 103 from 92 Appears to be chronic Noted on previous labs 6. Prophylaxis SCD Protonix 20 mg po daily VTE ppx contraindicated 2/2 pancytopenia 7. Dispo Continue on tele monitor for DTs PT/OT clarita BLEVINS attending
[2017-01-03] MEDS ORDERED: Bisacodyl 5mg EC Tab PO ONE (16:45)
[2017-01-03 17:16] VITALS: RESP 20
[2017-01-04 06:55] LABS: CHLORIDE 97 mmol/L (98-107); SODIUM 140 mmol/L (132-148)
[2017-01-04 06:56] LABS: POTASSIUM 4.6 mmol/L (3.6-5.2)
[2017-01-04 06:57] LABS: GFR AFRICAN-AMERICAN > 60
[2017-01-04 06:58] LABS: ALB/GLOB RATIO 0.9 (1.0-2.1); ALKALINE PHOSPHATASE 70 U/L (38-126); ALT/SGPT 37 U/L (21-72); AST/SGOT 121 U/L (17-59); BILIRUBIN,TOTAL 1.2 mg/dL (0.2-1.3); BLOOD UREA NITROGEN 11 mg/dL (9-20); CALCIUM 9.4 mg/dl (8.6-10.4); CARBON DIOXIDE 30 mmol/L (22-30); GLUCOSE,RANDOM 94 mg/dL (75-110); PHOSPHOROUS 4.5 mg/dL (2.5-4.5); TOTAL PROTEIN 8.5 g/dL (6.3-8.3)
[2017-01-04 07:22] LABS: BASO % 0.7 % (0.0-2.0); EOS # 0.3 K/uL (0.0-0.7); EOS % 5.8 % (0.0-4.0); HEMATOCRIT 38.6 % (35.0-51.0); LYMPH # 1.1 K/uL (1.0-4.3); LYMPH % 21.9 % (20.0-40.0); MEAN CELL VOLUME 106.7 fL (80.0-94.0); MEAN CORPUSCULAR HEMOGLOBIN 35.9 pg (27.0-31.0); MEAN CORPUSCULAR HGB CONC 33.6 g/dL (33.0-37.0); MEAN PLATELET VOLUME 8.9 fL (7.2-11.7); MONO # 0.9 K/uL (0.0-0.8); MONO % 17.3 % (0.0-10.0); NRBC % 0.1 % (0.0-2.0); RED CELL DISTRIBUTION WIDTH 13.4 % (11.5-14.5); WHITE BLOOD COUNT 4.9 K/uL (4.8-10.8)
[2017-01-04 07:47] VITALS: BP 144/100; PULSE 88; TEMP 98.4; O2SAT 97
--- NOTE | 2017-01-04 08:46 | CP.PCM.PN ---
Subjective - Date & Time of Evaluation Date of Evaluation: 01/04/17 Time of Evaluation: 07:15 - Subjective Subjective: PGY1 Medicine note - Dr. Link Unfortunately, this patient eloped 01/04/17. A code echo was called, and he was gone without notifying staff. He had not fully completed his detox. Patient seen and examined at bedside. No overnight events per nursing. Pt reports he is starting to feel better today. Reports decreasing diaphoresis, decreasing feeling of things crawling under his skin. He again reports poor sleep, increased urination, and persistent constipation (reports usual BM daily) . No other complaints at this time. Asking when he can go home. Denies N/V/F/C , SOB, CP, abdominal pain. Objective - Vital Signs/Intake and Output Vital Signs (last 24 hours): Temp Pulse Resp BP Pulse Ox 98.4 F 88 20 144/100 H 97 01/04/17 07:45 01/04/17 08:00 01/04/17 07:45 01/04/17 07:45 01/04/17 07:45 Intake and Output: 01/04/17 01/04/17 06:59 18:59 Output Total 200 Balance -200 - Medications Medications: Current Medications Folic Acid (Folic Acid) 1 mg PO DAILY [facility] Last Admin: 01/03/17 09:11 Dose: 1 mg Lorazepam (Ativan) 2 mg IVP Q2 PRN PRN Reason: Seizure activity Last Admin: 01/03/17 00:46 Dose: 2 mg Lorazepam (Ativan) 1 mg PO Q4H PRN PRN Reason: Symptoms of alcohol withdrawl Last Admin: 01/03/17 21:43 Dose: 1 mg Lorazepam (Ativan) 1 mg PO Q6 MARISA PRN Reason: Taper Stop: 01/06/17 15:44 Last Admin: 01/04/17 05:53 Dose: 1 mg Multivitamins (Hexavitamin) 1 tab PO DAILY [facility] Last Admin: 01/03/17 09:11 Dose: 1 tab Pantoprazole Sodium (Protonix Ec Tab) 20 mg PO DAILY [facility] Last Admin: 01/03/17 09:11 Dose: 20 mg Phenobarbital (Phenobarbital Tab) 64.8 mg PO DAILY [facility] Last Admin: 01/03/17 09:11 Dose: 64.8 mg Phenytoin Sodium (Dilantin) 100 mg PO TID [facility] Last Admin: 01/03/17 17:19 Dose: 100 mg Thiamine HCl (Vitamin B1 Tab) 100 mg PO DAILY [facility] Last Admin: 01/03/17 09:11 Dose: 100 mg Trazodone HCl (Desyrel) 50 mg PO HS PRN PRN Reason: Insomnia - Labs Labs: 01/04/17 06:40 01/04/17 06:40 - Additional Findings Additional findings: - Constitutional Appears: Non-toxic, No Acute Distress - Head Exam Head Exam: ATRAUMATIC, NORMAL INSPECTION, NORMOCEPHALIC - Eye Exam Eye Exam: EOMI, Normal appearance, PERRL Pupil Exam: NORMAL ACCOMODATION, PERRL - ENT Exam ENT Exam: Mucous Membranes Moist. absent: Normal Exam (poor dentition) - Neck Exam Neck Exam: Normal Inspection - Respiratory Exam Respiratory Exam: Clear to Ausculation Bilateral, NORMAL BREATHING PATTERN. absent: Rales, Rhonchi, Wheezes - Cardiovascular Exam Cardiovascular Exam: REGULAR RHYTHM, +S1, +S2 - GI/Abdominal Exam GI & Abdominal Exam: Soft, Normal Bowel Sounds. absent: Distended, Tenderness - Extremities Exam Extremities Exam: absent: Normal Inspection (Right hand with fine tremors, improving), Pedal Edema - Neurological Exam Neurological Exam: Alert, Awake, CN II-XII Intact, Oriented x3 - Psychiatric Exam Psychiatric exam: Depressed, Normal Affect - Skin Skin Exam: Dry, Intact, Warm. absent: Normal Color (multiple well healed scars in over upper extremities, some in linear distribution) Assessment and Plan - Assessment and Plan (Free Text) Assessment: 1. EtOH Abuse/Withdrawal Ativan 2 mg IVP Q2 PRN Librium 25mg stat x 1 Librium taper Folic acid po daily MV po daily Thiamine po daily Hepatitis A, B, C neg HIV Neg aspiration precautions seizure precautions f/u daily labs Psych following, no room on psych floor on 01/04 for transfer- Continue Ativan taper 2. Seizures Dilantin 100 mg po TID seizure precautions neuro checks Cont Phenobarbitol 60mg daily Ativan 2mg Q2H PRN 3. Hypokalemia 01/04: resolved Monitor and replete Potassium chloride 60 meq PO x 1 Monitor 4. Constipation Dulcolax once Monitor 5. Pancytopenia 01/04: resolving likely 2/2 ETOH abuse WBC 3.4 from 3.8 Plt 103 from 92 Appears to be chronic Noted on previous labs 6. Prophylaxis SCD Protonix 20 mg po daily VTE ppx contraindicated 2/2 pancytopenia 7. Dispo Continue on tele monitor for DTs PT/OT eval
[2017-01-04] MEDS: Multiple Vitamins Tab PO SCH (09:30)
[2017-01-04] MEDS: Pantoprazole 20 mg EC Tab PO SCH (09:30)
== END 2017-01-04 17:14 | disposition left against medical advice (07) | DRG 749 ==
LOC: C.ER 20:50 → C.3T 01-01 01:30 → C.6T 01-02 14:35 → OBSVTOIN 01-02 14:42
PROVIDERS: ADMIT Hospitalist; ATTEND Hospitalist
DX: F10.120 Alcohol abuse with intoxication, uncomplicated (principal); E11.9 Type 2 diabetes mellitus without complications; Y90.8 Blood alcohol level of 240 mg/100 ml or more; I25.10 Atherosclerotic heart disease of native coronary artery without angina pectoris; F41.8 Other specified anxiety disorders; Z79.4 Long term (current) use of insulin

== ENCOUNTER 2017-01-05 03:04 | Observation (INO) | payer MEDICAID ==
[2017-01-05 03:04] VITALS: BMI 26.4
[2017-01-05 03:18] VITALS: RESP 18
--- NOTE | 2017-01-05 03:18 | C.PDOC ---
History Of Present Illness Patient presents to the emergency room with ETOH intoxication. Patient is well known to the ED with multiple prior visits for ETOH intoxication. Patient denies any physical complaints. Time Seen by Provider: 01/05/17 03:16 Chief Complaint (Nursing): Substance Abuse History Per: Patient History/Exam Limitations: no limitations Onset/Duration Of Symptoms: Hrs Current Symptoms Are (Timing): Still Present Suicide/Self Injury Attempted (Context): None Modifying Factor(s): Alcohol Severity: None Associated Symptoms: denies: Suicidal Thoughts, Suicidal Plan Involuntary Hold By: None Recent travel outside of the [place]: No Past Medical History Reviewed: Historical Data, Nursing Documentation, Vital Signs Vital Signs: Last Vital Signs Temp 98.1 F 01/05/17 05:57 Pulse 98 H 01/05/17 05:57 Resp 18 01/05/17 05:57 BP 120/85 01/05/17 05:57 Pulse Ox 98 01/05/17 05:57 - Medical History PMH: Anxiety, Arthritis, Bronchitis, CAD, Depression, 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 insurance underwriter sales, not aware), Fractures, Gastritis, Gall Bladder Disease (s/p cholecystectomy), HTN, Post Traumatic Stress Disorder, Chronic Kidney Disease, Rheumatoid Arthritis, Seizures, Chronic Pain Surgical History: Cholecystectomy - [facility] Procedures ALCOHOL DETOXIFICATION (07/04/15) APPLICATION OF SPLINT (03/20/13) CLOSURE SKIN & SUBCUTANEOUS NEC (08/14/13) DETOXIFICATION SERVICES FOR SUBSTANCE ABUSE TREATMENT (03/22/16) ESOPHAGOGASTRODUODENOSCOPY [EGD] W/CLOSED BIOPSY (02/16/15) OTHER GROUP THERAPY (03/12/13) PHYSICAL THERAPY NEC (07/04/15) TETANUS TOXOID ADMINIST (01/19/14) Family History: States: No Known Family Hx - Social History Hx Tobacco Use: No Hx Alcohol Use: Yes Hx Substance Use: No - Immunization History Hx Tetanus Toxoid Vaccination: Yes Hx Influenza Vaccination: No Hx Pneumococcal Vaccination: No Review Of Systems Constitutional: Positive for: Other (ETOH intoxication). Negative for: Fever, Chills Gastrointestinal: Negative for: Nausea, Vomiting, Diarrhea Physical Exam - Physical Exam Appears: Non-toxic, No Acute Distress, Other (ETOH on breath) Skin: Warm, Dry Extremity: Normal ROM, No Tenderness Neurological/Psych: Oriented x3 ED Course And Treatment O2 Sat by Pulse Oximetry: 99 Pulse Ox Interpretation: Normal - CT Scan/US CT Head Other Rad Studies (CT/US): Read By Radiologist, Radiology Report Reviewed CT/US Interpretation: IMPRESSION: 1. No evidence for acute intracranial abnormality or displaced calvarial fracture. 2. Additional incidental and/or chronic findings as described. Progress Note: 3:45AM Pt walked to the bathroom and fell aganist the wall. No LOC. Head - no crepitus., no evidence of bleeding. neuro - pt inibriated, buyt responds appropriatly Reevaluation Time: 06:23 Reassessment Condition: Improved Disposition Counseled Patient/Family Regarding: Studies Performed, Diagnosis, Need For Followup - Disposition Referrals: [facility] [Outside] Disposition: HOME/ ROUTINE Disposition Time: 03:17 Condition: FAIR - Clinical Impression Clinical Impression: Alcohol abuse with intoxication, Minor head injury without loss of consciousness - Scribe Statement The provider has reviewed the documentation as recorded by the Scribe Grey Orozco All medical record entries made by the Rominaibjosé miguel were at my direction and personally dictated by me. I have reviewed the chart and agree that the record accurately reflects my personal performance of the history, physical exam, medical decision making, and the department course for this patient. I have also personally directed, reviewed, and agree with the discharge instructions and disposition.
--- NOTE | 2017-01-05 04:35 | CT ---
EXAM: CT Head Without Intravenous Contrast. CLINICAL HISTORY: 56 years old, male; Pain; Headache and other: Fall; Patient HX: 12-03-16 TECHNIQUE: Axial computed tomography images of the head/brain without intravenous contrast. This CT exam was performed using one or more of the following dose reduction techniques: automated exposure control, adjustment of the mA and/or kV according to patient size, and/or use of iterative reconstruction technique. COMPARISON: CT - HEAD W/O CONTRAST 12/03/2016 10:12:02 PM FINDINGS: Brain: There is mild prominence of ventricles and sulci, compatible with mild atrophy. There is no evidence of intracranial hemorrhage. No evidence of acute territorial infarction. No significant white matter disease. No edema. Ventricles: See above. Bones/joints: Unremarkable. No acute fracture. Soft tissues: Unremarkable. Sinuses: There is opacification of both maxillary sinuses. Mastoid air cells: Unremarkable as visualized. No mastoid effusion. IMPRESSION: 1. No evidence for acute intracranial abnormality or displaced calvarial fracture. 2. Additional incidental and/or chronic findings as described.
[2017-01-05 05:59] VITALS: BP 120/85; PULSE 98; TEMP 98.1
[2017-01-05 06:26] VITALS: O2SAT 99
== END 2017-01-05 06:25 | disposition home or self-care (01) ==
LOC: C.ER 03:04 → C.9OBSV 03:20
PROVIDERS: ADMIT Emergency Medicine; ATTEND Emergency Medicine
DX: F10.120 Alcohol abuse with intoxication, uncomplicated (principal); S09.90XA Unspecified injury of head, initial encounter; W18.30XA Fall on same level, unspecified, initial encounter; Y92.231 Patient bathroom in hospital as the place of occurrence of the external cause

== ENCOUNTER → 2017-01-05 21:11 | Emergency (ER) | payer MEDICAID ==
[2017-01-05 21:11] VITALS: BMI 26.4
== END | disposition left against medical advice (07) ==
LOC: C.ER 21:11
DX: F19.10 Other psychoactive substance abuse, uncomplicated (principal); Z02.9 Encounter for administrative examinations, unspecified

== ENCOUNTER 2017-01-06 00:24 | Emergency (ER) | payer MEDICAID ==
[2017-01-06 00:25] VITALS: BMI 26.4
--- NOTE | 2017-01-06 01:39 | C.PDOC ---
History Of Present Illness Patient presents to the emergency room with ETOH intoxication. Patient is well known to the ED with multiple prior visits for ETOH intoxication. Patient denies any fever, nausea, vomiting, diarrhea, or any other complaints. Time Seen by Provider: 01/06/17 00:59 Chief Complaint (Nursing): Altered Mental Status History Per: Patient History/Exam Limitations: no limitations Onset/Duration Of Symptoms: Hrs Current Symptoms Are (Timing): Still Present Suicide/Self Injury Attempted (Context): None Modifying Factor(s): Alcohol Severity: None Recent travel outside of the [place]: No Past Medical History Reviewed: Historical Data, Nursing Documentation, Vital Signs Vital Signs: Last Vital Signs Temp 97.8 F 01/06/17 00:42 Pulse 90 01/06/17 00:42 Resp 14 01/06/17 00:42 BP 142/82 01/06/17 00:42 Pulse Ox 98 01/06/17 01:39 - Medical History PMH: Anxiety, Arthritis, Bronchitis, CAD, Depression, 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, not aware), Fractures, Gastritis, Gall Bladder Disease (s/p cholecystectomy), HTN, Post Traumatic Stress Disorder, Chronic Kidney Disease, Rheumatoid Arthritis, Seizures, Chronic Pain Surgical History: Cholecystectomy - [facility] Procedures ALCOHOL DETOXIFICATION (07/04/15) APPLICATION OF SPLINT (03/20/13) CLOSURE SKIN & SUBCUTANEOUS NEC (08/14/13) DETOXIFICATION SERVICES FOR SUBSTANCE ABUSE TREATMENT (03/22/16) ESOPHAGOGASTRODUODENOSCOPY [EGD] W/CLOSED BIOPSY (02/16/15) OTHER GROUP THERAPY (03/12/13) PHYSICAL THERAPY NEC (07/04/15) TETANUS TOXOID ADMINIST (01/19/14) Family History: States: Unknown Family Hx - Social History Hx Tobacco Use: No Hx Alcohol Use: Yes Hx Substance Use: No - Immunization History Hx Tetanus Toxoid Vaccination: Yes Hx Influenza Vaccination: No Hx Pneumococcal Vaccination: No Review Of Systems Constitutional: Positive for: Other (ETOH intoxication). Negative for: Fever Gastrointestinal: Negative for: Nausea, Vomiting, Diarrhea Physical Exam - Physical Exam Appears: No Acute Distress, Other (ETOH on breath) Skin: Normal Color, Warm, Dry Extremity: Normal ROM, No Tenderness Neurological/Psych: Oriented x3 ED Course And Treatment O2 Sat by Pulse Oximetry: 98 Medical Decision Making Medical Decision Making: Pt dc with steady gait, Disposition - Disposition Disposition: HOME/ ROUTINE Disposition Time: 05:58 Condition: FAIR Forms: General Discharge Instructions - Clinical Impression Clinical Impression: Homelessness - Scribe Statement The provider has reviewed the documentation as recorded by the Scribe Grey Orozco All medical record entries made by the Rominaibe were at my direction and personally dictated by me. I have reviewed the chart and agree that the record accurately reflects my personal performance of the history, physical exam, medical decision making, and the department course for this patient. I have also personally directed, reviewed, and agree with the discharge instructions and disposition.
[2017-01-06 06:26] VITALS: BP 139/84; PULSE 88; RESP 17; TEMP 98; O2SAT 99
== END 2017-01-06 06:32 | disposition home or self-care (01) ==
LOC: C.ER 00:24
DX: F10.120 Alcohol abuse with intoxication, uncomplicated (principal); Y90.9 Presence of alcohol in blood, level not specified; Z59.0 Homelessness

== ENCOUNTER 2017-01-07 20:49 | Emergency (ER) | payer MEDICAID ==
[2017-01-07 20:50] VITALS: BMI 26.4
[2017-01-07 23:02] VITALS: TEMP 97.9; O2SAT 98
--- NOTE | 2017-01-08 01:54 | C.PDOC ---
History Of Present Illness 56 year old patient presents to the ED for acute alcohol intoxication. Patient is well known in the ED. Patient admits to drinking alcohol today and requests a place to sleep. Patient denies all other complaints at this time. Time Seen by Provider: 01/08/17 00:46 Chief Complaint (Nursing): Substance Abuse History Per: Patient History/Exam Limitations: intoxication Onset/Duration Of Symptoms: Other Current Symptoms Are (Timing): Still Present Suicide/Self Injury Attempted (Context): None Modifying Factor(s): Alcohol Severity: None Pain Scale Rating Of: 0 Recent travel outside of the [place]: No Additional History Per: Prior Records Past Medical History Reviewed: Historical Data, Nursing Documentation, Vital Signs Vital Signs: Last Vital Signs Temp 97.9 F 01/07/17 22:55 Pulse 71 01/07/17 22:55 Resp 20 01/07/17 22:55 BP 137/89 01/07/17 22:55 Pulse Ox 98 01/08/17 01:54 - Medical History PMH: Anxiety, Arthritis, Bronchitis, CAD, Depression, 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 real estate underwriter, not aware), Fractures, Gastritis, Gall Bladder Disease (s/p cholecystectomy), HTN, Post Traumatic Stress Disorder, Chronic Kidney Disease, Rheumatoid Arthritis, Seizures, Chronic Pain Surgical History: Cholecystectomy - [facility] Procedures ALCOHOL DETOXIFICATION (07/04/15) APPLICATION OF SPLINT (03/20/13) CLOSURE SKIN & SUBCUTANEOUS NEC (08/14/13) DETOXIFICATION SERVICES FOR SUBSTANCE ABUSE TREATMENT (03/22/16) ESOPHAGOGASTRODUODENOSCOPY [EGD] W/CLOSED BIOPSY (02/16/15) OTHER GROUP THERAPY (03/12/13) PHYSICAL THERAPY NEC (07/04/15) TETANUS TOXOID ADMINIST (01/19/14) Family History: States: Unknown Family Hx - Social History Hx Tobacco Use: No Hx Alcohol Use: Yes Hx Substance Use: No - Immunization History Hx Tetanus Toxoid Vaccination: Yes Hx Influenza Vaccination: No Hx Pneumococcal Vaccination: No Review Of Systems Except As Marked, All Systems Reviewed And Found Negative. Constitutional: Negative for: Fever Cardiovascular: Negative for: Chest Pain Respiratory: Negative for: Shortness of Breath Gastrointestinal: Negative for: Abdominal Pain Psych: Negative for: Suicidal ideation Physical Exam - Physical Exam Appears: Non-toxic, No Acute Distress, Other (EtOH on breath) Skin: Warm, Dry Head: Atraumatic, Normacephalic Neck: Normal ROM, Supple Chest: Symmetrical Respiratory: No Accessory Muscle Use Gastrointestinal/Abdominal: Soft, No Tenderness Back: Normal Inspection Extremity: Normal ROM Neurological/Psych: Oriented x3 ED Course And Treatment O2 Sat by Pulse Oximetry: 98 (RA) Pulse Ox Interpretation: Normal Medical Decision Making Medical Decision Makin: pt awake alert ambulatory, steady gait, stable for d.c ED OBSERVATION Date of observation admission: 01/08/17 Time of observation admission: 00:57 - Observation admission statement Patient is being placed in observation because:: acute alcohol intoxication - Goals of Observation Goals of observation are:: sobriety Disposition - Disposition Disposition: HOME/ ROUTINE Disposition Time: 05:38 Condition: STABLE - Clinical Impression Clinical Impression: Alcohol abuse - Scribe Statement The provider has reviewed the documentation as recorded by the Rominaibjosé miguel Fajardo Provider Attestation: All medical record entries made by the Rominaibe were at my direction and personally dictated by me. I have reviewed the chart and agree that the record accurately reflects my personal performance of the history, physical exam, medical decision making, and the department course for this patient. I have also personally directed, reviewed, and agree with the discharge instructions and disposition.
[2017-01-08 06:24] VITALS: BP 146/83; PULSE 82; RESP 16
== END 2017-01-08 05:35 | disposition home or self-care (01) ==
LOC: C.ER 20:49
DX: F10.10 Alcohol abuse, uncomplicated (principal); Y90.9 Presence of alcohol in blood, level not specified

== ENCOUNTER 2017-01-08 21:42 | Observation (INO) | payer MEDICAID ==
[2017-01-08 21:42] VITALS: BMI 26.4
--- NOTE | 2017-01-08 21:56 | C.PDOC ---
History Of Present Illness 56 year old patient presents to the ED for acute alcohol intoxication. Patient is well known in the ED. Patient admits to drinking alcohol today and requests a place to sleep. Patient denies all other complaints at this time. Time Seen by Provider: 01/08/17 21:46 Chief Complaint (Nursing): Substance Abuse History Per: Patient History/Exam Limitations: no limitations Onset/Duration Of Symptoms: Hrs Current Symptoms Are (Timing): Still Present Suicide/Self Injury Attempted (Context): None Modifying Factor(s): Alcohol Severity: Mild Associated Symptoms: denies: Suicidal Thoughts, Suicidal Plan Past Medical History Reviewed: Historical Data, Nursing Documentation, Vital Signs Vital Signs: Last Vital Signs Temp 98.2 F 01/08/17 21:57 Pulse 87 01/09/17 02:29 Resp 20 01/09/17 02:29 BP 142/70 01/09/17 02:29 Pulse Ox 96 01/09/17 02:29 - Medical History PMH: Anxiety, Arthritis, Bronchitis, CAD, Depression, 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 pattern chart writer, not aware), Fractures, Gastritis, Gall Bladder Disease (s/p cholecystectomy), HTN, Post Traumatic Stress Disorder, Chronic Kidney Disease, Rheumatoid Arthritis, Seizures, Chronic Pain Surgical History: Cholecystectomy - [facility] Procedures ALCOHOL DETOXIFICATION (07/04/15) APPLICATION OF SPLINT (03/20/13) CLOSURE SKIN & SUBCUTANEOUS NEC (08/14/13) DETOXIFICATION SERVICES FOR SUBSTANCE ABUSE TREATMENT (03/22/16) ESOPHAGOGASTRODUODENOSCOPY [EGD] W/CLOSED BIOPSY (02/16/15) OTHER GROUP THERAPY (03/12/13) PHYSICAL THERAPY NEC (07/04/15) TETANUS TOXOID ADMINIST (01/19/14) Family History: States: Unknown Family Hx - Social History Hx Tobacco Use: No Hx Alcohol Use: Yes Hx Substance Use: No - Immunization History Hx Tetanus Toxoid Vaccination: Yes Hx Influenza Vaccination: No Hx Pneumococcal Vaccination: No Review Of Systems Except As Marked, All Systems Reviewed And Found Negative. Constitutional: Positive for: Other (+Intoxication). Negative for: Fever, Chills Respiratory: Negative for: Shortness of Breath Gastrointestinal: Negative for: Nausea, Vomiting Physical Exam - Physical Exam Appears: Non-toxic, No Acute Distress, Other (Intoxicated (+AOB)) Skin: Warm, Dry Head: Atraumatic, Normacephalic Eye(s): bilateral: Normal Inspection Oral Mucosa: Moist Chest: Symmetrical Cardiovascular: Rhythm Regular Respiratory: Normal Breath Sounds, No Accessory Muscle Use, No Rales, No Rhonchi , No Wheezing Gastrointestinal/Abdominal: Soft, No Tenderness, No Guarding, No Rebound Neurological/Psych: Oriented x3 ED Course And Treatment O2 Sat by Pulse Oximetry: 95 (Room air) Pulse Ox Interpretation: Normal Medical Decision Making Medical Decision Making: pt ambulatory with steady gait. ED OBSERVATION Date of observation admission: 01/08/17 Time of observation admission: 21:59 - Observation admission statement Patient is being placed in observation because:: Pending sobriety - Goals of Observation Goals of observation are:: Sobriety - Progress Note Progress Note: 01/08/17 22:00 Pending for sobriety Disposition - Disposition Disposition: HOME/ ROUTINE Disposition Time: 06:00 Condition: STABLE - Clinical Impression Clinical Impression: Alcohol intoxication - Scribe Statement The provider has reviewed the documentation as recorded by the Scribjosé miguel morillo All medical record entries made by the Rominaibjosé miguel were at my direction and personally dictated by me. I have reviewed the chart and agree that the record accurately reflects my personal performance of the history, physical exam, medical decision making, and the department course for this patient. I have also personally directed, reviewed, and agree with the discharge instructions and disposition.
[2017-01-08 21:57] VITALS: RESP 20
[2017-01-09 05:37] VITALS: BP 145/72; PULSE 90; TEMP 97.9; O2SAT 96
== END 2017-01-09 05:33 | disposition home or self-care (01) ==
LOC: C.ER 21:42 → C.9OBSV 22:00
PROVIDERS: ADMIT Student in an Organized Health Care Education/Training Program; ATTEND Student in an Organized Health Care Education/Training Program
DX: F10.129 Alcohol abuse with intoxication, unspecified (principal); E11.9 Type 2 diabetes mellitus without complications
CPT/HCPCS: 82948; G0378 ×2

== ENCOUNTER 2017-01-09 20:07 | Observation (INO) | payer MEDICAID ==
[2017-01-09 20:07] VITALS: BMI 26.4
--- NOTE | 2017-01-09 20:37 | C.PDOC ---
History Of Present Illness 56 year old male presents to the ED due to alcohol intoxication. Patient has a history of alcohol abuse and is well known to the ED for frequent visits. He has no physical complaints at this time. Chief Complaint (Nursing): Substance Abuse History Per: Patient History/Exam Limitations: no limitations Onset/Duration Of Symptoms: Hrs Current Symptoms Are (Timing): Still Present Suicide/Self Injury Attempted (Context): None Modifying Factor(s): Alcohol Severity: Mild Past Medical History Reviewed: Historical Data, Nursing Documentation, Vital Signs Vital Signs: Last Vital Signs Temp 98.2 F 01/10/17 04:36 Pulse 88 01/10/17 04:36 Resp 16 01/10/17 04:36 BP 104/65 01/10/17 04:36 Pulse Ox 95 01/10/17 04:36 - Medical History PMH: Anxiety, Arthritis, Bronchitis, CAD, Depression, 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 screen writer, not aware), Fractures, Gastritis, Gall Bladder Disease (s/p cholecystectomy), HTN, Post Traumatic Stress Disorder, Chronic Kidney Disease, Rheumatoid Arthritis, Seizures, Chronic Pain Surgical History: Cholecystectomy - [facility] Procedures ALCOHOL DETOXIFICATION (07/04/15) APPLICATION OF SPLINT (03/20/13) CLOSURE SKIN & SUBCUTANEOUS NEC (08/14/13) DETOXIFICATION SERVICES FOR SUBSTANCE ABUSE TREATMENT (03/22/16) ESOPHAGOGASTRODUODENOSCOPY [EGD] W/CLOSED BIOPSY (02/16/15) OTHER GROUP THERAPY (03/12/13) PHYSICAL THERAPY NEC (07/04/15) TETANUS TOXOID ADMINIST (01/19/14) Family History: States: Unknown Family Hx - Social History Hx Tobacco Use: No Hx Alcohol Use: Yes Hx Substance Use: No - Immunization History Hx Tetanus Toxoid Vaccination: Yes Hx Influenza Vaccination: No Hx Pneumococcal Vaccination: No Review Of Systems Except As Marked, All Systems Reviewed And Found Negative. Constitutional: Positive for: Other (+Intoxicated). Negative for: Fever, Chills Cardiovascular: Negative for: Chest Pain Respiratory: Negative for: Shortness of Breath Neurological: Negative for: Weakness, Numbness Physical Exam - Physical Exam Appears: Non-toxic, No Acute Distress, Other (+Intoxicated + AOB) Skin: Normal Color, Warm, Dry Head: Atraumatic, Normacephalic Eye(s): bilateral: Normal Inspection Oral Mucosa: Moist Chest: Symmetrical Cardiovascular: Rhythm Regular Respiratory: Normal Breath Sounds, No Accessory Muscle Use Extremity: Normal ROM Neurological/Psych: Oriented x3 ED Course And Treatment O2 Sat by Pulse Oximetry: 96 (Room air) Pulse Ox Interpretation: Normal ED OBSERVATION Date of observation admission: 01/09/17 Time of observation admission: 20:36 - Observation admission statement Patient is being placed in observation because:: Acute alcohol intoxication. - Goals of Observation Goals of observation are:: Sobriety. Disposition Counseled Patient/Family Regarding: Diagnosis - Disposition Disposition: HOME/ ROUTINE Disposition Time: 06:00 Condition: STABLE - POA Present On Arrival: None - Clinical Impression Clinical Impression: Alcohol abuse with intoxication - Scribe Statement The provider has reviewed the documentation as recorded by the Scribe john fenton. Provider Attestation: All medical record entries made by the Scribe were at my direction and personally dictated by me. I have reviewed the chart and agree that the record accurately reflects my personal performance of the history, physical exam, medical decision making, and the department course for this patient. I have also personally directed, reviewed, and agree with the discharge instructions and disposition.
[2017-01-10 04:39] VITALS: BP 104/65; PULSE 88; RESP 16; TEMP 98.2
[2017-01-10 06:05] VITALS: O2SAT 96
== END 2017-01-10 06:30 | disposition home or self-care (01) ==
LOC: C.ER 20:07 → C.9OBSV 20:53
PROVIDERS: ADMIT Emergency Medicine; ATTEND Emergency Medicine
DX: F10.129 Alcohol abuse with intoxication, unspecified (principal); I25.10 Atherosclerotic heart disease of native coronary artery without angina pectoris; E11.22 Type 2 diabetes mellitus with diabetic chronic kidney disease; I12.9 Hypertensive chronic kidney disease with stage 1 through stage 4 chronic kidney disease, or unspecified chronic kidney disease; N18.9 Chronic kidney disease, unspecified; M06.9 Rheumatoid arthritis, unspecified; R56.9 Unspecified convulsions; G89.29 Other chronic pain; F41.9 Anxiety disorder, unspecified; F32.9 Major depressive disorder, single episode, unspecified; F43.10 Post-traumatic stress disorder, unspecified; Z87.19 Personal history of other diseases of the digestive system; Z90.49 Acquired absence of other specified parts of digestive tract; Z98.890 Other specified postprocedural states

== ENCOUNTER 2017-01-10 20:15 | Observation (INO) | payer MEDICAID ==
[2017-01-10 20:15] VITALS: BMI 26.4
[2017-01-10 21:04] VITALS: TEMP 97.4
--- NOTE | 2017-01-10 22:30 | C.PDOC ---
History Of Present Illness Pt states that he is homeless and drunk. Time Seen by Provider: 01/10/17 21:52 Chief Complaint (Nursing): Substance Abuse History Per: Patient History/Exam Limitations: intoxication Onset/Duration Of Symptoms: Unknown (today) Current Symptoms Are (Timing): Still Present Suicide/Self Injury Attempted (Context): None Modifying Factor(s): Alcohol Severity: Moderate Associated Symptoms: denies: Suicidal Thoughts, Suicidal Plan Additional History Per: Prior Records Past Medical History Reviewed: Historical Data, Nursing Documentation, Vital Signs Vital Signs: Last Vital Signs Temp 97.4 F L 01/11/17 05:43 Pulse 84 01/11/17 05:43 Resp 16 01/11/17 05:43 BP 143/88 01/11/17 05:43 Pulse Ox 96 01/11/17 05:43 - Medical History PMH: Anxiety, Arthritis, Bronchitis, CAD, Depression, 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 mechanic, not aware), Fractures, Gastritis, Gall Bladder Disease (s/p cholecystectomy), HTN, Post Traumatic Stress Disorder, Chronic Kidney Disease, Rheumatoid Arthritis, Seizures, Chronic Pain Other PMH: Alcohol abuse Surgical History: Cholecystectomy - [facility] Procedures ALCOHOL DETOXIFICATION (07/04/15) APPLICATION OF SPLINT (03/20/13) CLOSURE SKIN & SUBCUTANEOUS NEC (08/14/13) DETOXIFICATION SERVICES FOR SUBSTANCE ABUSE TREATMENT (03/22/16) ESOPHAGOGASTRODUODENOSCOPY [EGD] W/CLOSED BIOPSY (02/16/15) OTHER GROUP THERAPY (03/12/13) PHYSICAL THERAPY NEC (07/04/15) TETANUS TOXOID ADMINIST (01/19/14) Family History: States: Unknown Family Hx - Social History Hx Tobacco Use: No Hx Alcohol Use: Yes Hx Substance Use: No - Immunization History Hx Tetanus Toxoid Vaccination: Yes Hx Influenza Vaccination: No Hx Pneumococcal Vaccination: No Review Of Systems Review Of Systems: ROS cannot be obtained secondary to pt's inabilty to answer questions. Physical Exam - Physical Exam Appears: No Acute Distress, Unkempt, Other (AOB, intoxicated) Skin: Normal Color, Warm, Dry Head: Atraumatic Eye(s): bilateral: PERRL Neck: Normal ROM, No Midline Cervical Tenderness, No Step Off Deformity, Supple Chest: Symmetrical, No Deformity Cardiovascular: Rhythm Regular Respiratory: Normal Breath Sounds, No Accessory Muscle Use Gastrointestinal/Abdominal: Soft Extremity: Normal ROM, No Deformity Neurological/Psych: Other (Moving all extremities. Sleeping but arrousable with loud verbal stimuli) Gait: Unable To Assess ED Course And Treatment O2 Sat by Pulse Oximetry: 97 Pulse Ox Interpretation: Normal Reassessment Condition: Improved ED OBSERVATION Discharge: Yes Date of observation admission: 01/10/17 Time of observation admission: 22:00 - Observation admission statement Patient is being placed in observation because:: Alcohol intoxication. - Goals of Observation Goals of observation are:: Sobriety. - Progress Note Progress Note: Pt was checked every 2 hours and remained stable throughout ED stay. Pt is now AAOx3. Clinically sober. Waking in a steady gait. Disposition Counseled Patient/Family Regarding: Diagnosis, Need For Followup - Disposition Disposition: HOME/ ROUTINE Disposition Time: 05:53 Condition: IMPROVED - Clinical Impression Clinical Impression: Alcoholism /alcohol abuse
[2017-01-11 05:44] VITALS: BP 143/88; PULSE 84; RESP 16
[2017-01-11 05:54] VITALS: O2SAT 97
== END 2017-01-11 05:54 | disposition home or self-care (01) ==
LOC: C.ER 20:15 → C.9OBSV 22:30
PROVIDERS: ADMIT Emergency Medicine; ATTEND Emergency Medicine
DX: F10.20 Alcohol dependence, uncomplicated (principal); Z59.0 Homelessness
CPT/HCPCS: 99285; G0378 ×2

== ENCOUNTER 2017-01-11 18:00 | Observation (INO) | payer MEDICAID ==
[2017-01-11 18:16] VITALS: BMI 29.7
[2017-01-11 18:24] VITALS: RESP 20
--- NOTE | 2017-01-11 23:55 | C.PDOC ---
History Of Present Illness Pt was BIBEMS due to public alcohol intoxication. Time Seen by Provider: 01/11/17 19:19 Chief Complaint (Nursing): Substance Abuse History Per: Patient, EMS History/Exam Limitations: intoxication Onset/Duration Of Symptoms: Unknown (today) Current Symptoms Are (Timing): Still Present Modifying Factor(s): Alcohol Severity: Severe Associated Symptoms: denies: Suicidal Thoughts, Suicidal Plan Additional History Per: Prior Records Past Medical History Reviewed: Historical Data, Nursing Documentation, Vital Signs Vital Signs: Last Vital Signs Temp 98.4 F 01/11/17 18:17 Pulse 88 01/11/17 18:17 Resp 20 01/11/17 18:17 BP 120/76 01/11/17 18:17 Pulse Ox 99 01/11/17 23:55 - Medical History PMH: Anxiety, Arthritis, Bronchitis, CAD, Depression, 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 chief writer, not aware), Fractures, Gastritis, Gall Bladder Disease (s/p cholecystectomy), HTN, Post Traumatic Stress Disorder, Chronic Kidney Disease, Rheumatoid Arthritis, Seizures, Chronic Pain Other PMH: Alcohol abuse Surgical History: Cholecystectomy - [facility] Procedures ALCOHOL DETOXIFICATION (07/04/15) APPLICATION OF SPLINT (03/20/13) CLOSURE SKIN & SUBCUTANEOUS NEC (08/14/13) DETOXIFICATION SERVICES FOR SUBSTANCE ABUSE TREATMENT (03/22/16) ESOPHAGOGASTRODUODENOSCOPY [EGD] W/CLOSED BIOPSY (02/16/15) OTHER GROUP THERAPY (03/12/13) PHYSICAL THERAPY NEC (07/04/15) TETANUS TOXOID ADMINIST (01/19/14) Family History: States: Unknown Family Hx - Social History Hx Tobacco Use: No Hx Alcohol Use: Yes Hx Substance Use: No - Immunization History Hx Tetanus Toxoid Vaccination: Yes Hx Influenza Vaccination: No Hx Pneumococcal Vaccination: No Review Of Systems Review Of Systems: ROS cannot be obtained secondary to pt's inabilty to answer questions. Physical Exam - Physical Exam Appears: No Acute Distress, Other (AOB. Intoxicated. ) Skin: Normal Color, Warm, Dry, No Rash Head: Atraumatic Eye(s): bilateral: PERRL Neck: Normal ROM, No Midline Cervical Tenderness, No Step Off Deformity, Supple Chest: Symmetrical, No Deformity Cardiovascular: Rhythm Regular Respiratory: Normal Breath Sounds, No Accessory Muscle Use Gastrointestinal/Abdominal: Soft Extremity: Normal ROM, No Deformity Neurological/Psych: Eyes Open With Command, Other (Moving all extremities) Pain Response: Withdraws With Pain Gait: Unable To Assess ED Course And Treatment O2 Sat by Pulse Oximetry: 99 Pulse Ox Interpretation: Normal Reassessment Condition: Improved ED OBSERVATION Discharge: Yes Date of observation admission: 01/11/17 Time of observation admission: 19:30 - Observation admission statement Patient is being placed in observation because:: Alcohol intoxication. - Goals of Observation Goals of observation are:: Sobriety. - Progress Note Progress Note: 01/12/17 03:44 Pt was checked every 2 hours and remained stable throughout ED stay. Pt is now AAOx3. Waking in at steady gait and requesting discharge. Disposition Counseled Patient/Family Regarding: Diagnosis, Need For Followup - Disposition Disposition: HOME/ ROUTINE Disposition Time: 03:45 Condition: IMPROVED - Clinical Impression Clinical Impression: Alcoholism /alcohol abuse
[2017-01-12 05:11] VITALS: BP 128/72; PULSE 82; TEMP 98; O2SAT 98
== END 2017-01-12 03:46 | disposition home or self-care (01) ==
LOC: C.ER 18:00 → C.9OBSV 23:55
PROVIDERS: ADMIT Emergency Medicine; ATTEND Emergency Medicine
DX: F10.229 Alcohol dependence with intoxication, unspecified (principal); E11.9 Type 2 diabetes mellitus without complications; I25.10 Atherosclerotic heart disease of native coronary artery without angina pectoris
CPT/HCPCS: 82948; 99283; G0378 ×2

== ENCOUNTER 2017-01-12 20:28 | Observation (INO) | payer MEDICAID ==
[2017-01-12 20:29] VITALS: BMI 29.7
[2017-01-12 20:49] VITALS: TEMP 98
--- NOTE | 2017-01-12 20:56 | C.PDOC ---
History Of Present Illness The patient, a 56y/o male, presents to the ED with public alcohol intoxication for an unknown duration. Patient is familiar to the ED and has had multiple visits concerning alcohol intoxication. Patient admits to drinking earlier today. He denies suicidal/homicidal ideation and has no physical complaints at this time. Time Seen by Provider: 01/12/17 20:55 Chief Complaint (Nursing): Substance Abuse History Per: Patient History/Exam Limitations: intoxication Onset/Duration Of Symptoms: Unknown Current Symptoms Are (Timing): Still Present Suicide/Self Injury Attempted (Context): None Modifying Factor(s): Alcohol Associated Symptoms: denies: Suicidal Thoughts, Suicidal Plan Involuntary Hold By: None Recent travel outside of the [place]: No Additional History Per: Patient Past Medical History Reviewed: Historical Data, Nursing Documentation, Vital Signs Vital Signs: Last Vital Signs Temp 98.0 F 01/12/17 20:46 Pulse 92 H 01/13/17 04:34 Resp 18 01/13/17 04:34 BP 132/79 01/13/17 04:34 Pulse Ox 97 01/13/17 04:34 - Medical History PMH: Anxiety, Arthritis, Bronchitis, CAD, Depression, 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 policy writer, not aware), Fractures, Gastritis, Gall Bladder Disease (s/p cholecystectomy), HTN, Post Traumatic Stress Disorder, Chronic Kidney Disease, Rheumatoid Arthritis, Seizures, Chronic Pain Surgical History: Cholecystectomy - [facility] Procedures ALCOHOL DETOXIFICATION (07/04/15) APPLICATION OF SPLINT (03/20/13) CLOSURE SKIN & SUBCUTANEOUS NEC (08/14/13) DETOXIFICATION SERVICES FOR SUBSTANCE ABUSE TREATMENT (03/22/16) ESOPHAGOGASTRODUODENOSCOPY [EGD] W/CLOSED BIOPSY (02/16/15) OTHER GROUP THERAPY (03/12/13) PHYSICAL THERAPY NEC (07/04/15) TETANUS TOXOID ADMINIST (01/19/14) Family History: States: Unknown Family Hx - Social History Hx Tobacco Use: No Hx Alcohol Use: Yes Hx Substance Use: No - Immunization History Hx Tetanus Toxoid Vaccination: Yes Hx Influenza Vaccination: No Hx Pneumococcal Vaccination: No Review Of Systems Except As Marked, All Systems Reviewed And Found Negative. Constitutional: Positive for: Other (+ETOH intoxication ) Psych: Negative for: Suicidal ideation Physical Exam - Physical Exam Appears: No Acute Distress, Other (visibly intoxicated ) Skin: Normal Color, Warm, Dry Head: Atraumatic Eye(s): bilateral: Normal Inspection Oral Mucosa: Moist, Other (alcohol on breath ) Neck: Supple Chest: Symmetrical, No Deformity, No Tenderness Cardiovascular: Rhythm Regular Respiratory: Normal Breath Sounds Extremity: Normal ROM, Capillary Refill (less than 2 seconds ) Neurological/Psych: Other (arousable to touch and verbal stimuli ) Gait: Unsteady ED Course And Treatment O2 Sat by Pulse Oximetry: 95 (on RA) Pulse Ox Interpretation: Normal Progress Note: Patient is placed in ED OBS for acute alcohol intoxication and is pending sobriety. ED OBSERVATION Discharge: Yes Date of observation admission: 01/12/17 Time of observation admission: 21:00 - Observation admission statement Patient is being placed in observation because:: ETOH INTOX - Goals of Observation Goals of observation are:: SOBRIETY - Progress Note Progress Note: 01/13/17 05:52 CLEAR SPEECH THOUGHT STEADY GAIT. NO ACUTE INTOX Disposition Counseled Patient/Family Regarding: Diagnosis, Need For Followup - Disposition Disposition: HOME/ ROUTINE Disposition Time: 05:52 Condition: IMPROVED - Clinical Impression Clinical Impression: Alcohol intoxication - Scribe Statement The provider has reviewed the documentation as recorded by the Scribe (Kari Fajardo) Provider Attestation: All medical record entries made by the Scribe were at my direction and personally dictated by me. I have reviewed the chart and agree that the record accurately reflects my personal performance of the history, physical exam, medical decision making, and the department course for this patient. I have also personally directed, reviewed, and agree with the discharge instructions and disposition.
[2017-01-13 04:36] VITALS: BP 132/79; PULSE 92; RESP 18
[2017-01-13 05:53] VITALS: O2SAT 95
== END 2017-01-13 05:53 | disposition home or self-care (01) ==
LOC: C.ER 20:28 → C.9OBSV 20:56
PROVIDERS: ADMIT Emergency Medicine; ATTEND Emergency Medicine
DX: F10.129 Alcohol abuse with intoxication, unspecified (principal)
CPT/HCPCS: 99283; G0378 ×2

== ENCOUNTER 2017-01-13 19:30 | Observation (INO) | payer MEDICAID ==
[2017-01-13 19:31] VITALS: BMI 29.7
--- NOTE | 2017-01-13 19:54 | C.PDOC ---
History Of Present Illness 56 y/o male with PMHx of etoh abuse presents to ED requesting a place to stay. Patient is well known to ER staff with multiple similar prior presentations. Denies any injuries or trauma. No other medical complaints at this time. Chief Complaint (Nursing): Substance Abuse History Per: Patient History/Exam Limitations: no limitations Onset/Duration Of Symptoms: Persistent Current Symptoms Are (Timing): Still Present Modifying Factor(s): Alcohol Associated Symptoms: denies: Anger, Agitation, Suicidal Thoughts, Suicidal Plan Recent travel outside of the [place]: No Past Medical History Reviewed: Historical Data, Nursing Documentation, Vital Signs Vital Signs: Last Vital Signs Temp 98.2 F 01/14/17 05:52 Pulse 85 01/14/17 05:52 Resp 20 01/14/17 05:52 BP 119/60 01/14/17 05:52 Pulse Ox 98 01/14/17 05:52 - Medical History PMH: Anxiety, Arthritis, Bronchitis, CAD, Depression, 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 writer, not aware), Fractures, Gastritis, Gall Bladder Disease (s/p cholecystectomy), HTN, Post Traumatic Stress Disorder, Chronic Kidney Disease, Rheumatoid Arthritis, Seizures, Chronic Pain Surgical History: Cholecystectomy - [facility] Procedures ALCOHOL DETOXIFICATION (07/04/15) APPLICATION OF SPLINT (03/20/13) CLOSURE SKIN & SUBCUTANEOUS NEC (08/14/13) DETOXIFICATION SERVICES FOR SUBSTANCE ABUSE TREATMENT (03/22/16) ESOPHAGOGASTRODUODENOSCOPY [EGD] W/CLOSED BIOPSY (02/16/15) OTHER GROUP THERAPY (03/12/13) PHYSICAL THERAPY NEC (07/04/15) TETANUS TOXOID ADMINIST (01/19/14) Family History: States: Unknown Family Hx - Social History Hx Tobacco Use: No Hx Alcohol Use: Yes Hx Substance Use: No - Immunization History Hx Tetanus Toxoid Vaccination: Yes Hx Influenza Vaccination: No Hx Pneumococcal Vaccination: No Review Of Systems Except As Marked, All Systems Reviewed And Found Negative. Constitutional: Negative for: Fever Cardiovascular: Negative for: Chest Pain Respiratory: Negative for: Shortness of Breath Gastrointestinal: Negative for: Vomiting, Abdominal Pain Skin: Negative for: Rash Neurological: Negative for: Headache, Dizziness Psych: Negative for: Withdrawal Physical Exam - Physical Exam Appears: Non-toxic, No Acute Distress, Other (+EtOH odor on breath) Skin: Normal Color, Warm, Dry Head: Atraumatic, Normacephalic Chest: Symmetrical Cardiovascular: Rhythm Regular Respiratory: Normal Breath Sounds, No Rales, No Rhonchi, No Wheezing Gastrointestinal/Abdominal: Soft, No Tenderness, No Guarding, No Rebound Back: Normal Inspection Extremity: Normal ROM, Capillary Refill (< 2 sec. ) Neurological/Psych: Oriented x3, Normal Speech, Normal Cognition ED Course And Treatment O2 Sat by Pulse Oximetry: 95 (RA) Pulse Ox Interpretation: Normal Disposition Counseled Patient/Family Regarding: Diagnosis - Disposition Disposition: HOME/ ROUTINE Disposition Time: 05:53 Condition: STABLE - POA Present On Arrival: None - Clinical Impression Clinical Impression: Alcohol intoxication - Scribe Statement The provider has reviewed the documentation as recorded by the Jada Castro Provider Attestation: Provider Scribe Attestation: All medical record entries made by the Scribe were at my direction and personally dictated by me. I have reviewed the chart and agree that the record accurately reflects my personal performance of the history, physical exam, medical decision making, and the department course for this patient. I have also personally directed, reviewed, and agree with the discharge instructions and disposition.
[2017-01-13 23:30] VITALS: RESP 20
[2017-01-14 05:52] VITALS: BP 119/60; PULSE 85; TEMP 98.2
[2017-01-14 05:54] VITALS: O2SAT 95
== END 2017-01-14 05:51 | disposition home or self-care (01) ==
LOC: C.ER 19:30 → C.9OBSV 19:47
PROVIDERS: ADMIT Emergency Medicine; ATTEND Emergency Medicine
DX: F10.229 Alcohol dependence with intoxication, unspecified (principal); F32.9 Major depressive disorder, single episode, unspecified; I25.10 Atherosclerotic heart disease of native coronary artery without angina pectoris; E11.9 Type 2 diabetes mellitus without complications; I10 Essential (primary) hypertension; F43.10 Post-traumatic stress disorder, unspecified; M06.9 Rheumatoid arthritis, unspecified
CPT/HCPCS: 82948; 99285; G0378 ×2

== ENCOUNTER 2017-01-14 21:19 | Observation (INO) | payer MEDICAID ==
[2017-01-14 21:20] VITALS: BMI 29.7
--- NOTE | 2017-01-14 23:47 | C.PDOC ---
History Of Present Illness 56 year old patient presents to the ED for acute alcohol intoxication. Patient admits to drinking alcohol prior to arrival. Patient is well known in the ED for intoxication. Patient denies all other complaints at this time. Time Seen by Provider: 01/14/17 22:48 Chief Complaint (Nursing): Substance Abuse History Per: Patient History/Exam Limitations: intoxication Onset/Duration Of Symptoms: Other Current Symptoms Are (Timing): Still Present Suicide/Self Injury Attempted (Context): None Modifying Factor(s): Alcohol Severity: None Pain Scale Rating Of: 0 Involuntary Hold By: None Recent travel outside of the [place]: No Additional History Per: Prior Records Past Medical History Reviewed: Historical Data, Nursing Documentation, Vital Signs Vital Signs: Last Vital Signs Temp 97.8 F 01/15/17 05:15 Pulse 92 H 01/15/17 05:15 Resp 18 01/15/17 05:15 BP 130/79 01/15/17 05:15 Pulse Ox 95 01/15/17 05:15 - Medical History PMH: Anxiety, Arthritis, Bronchitis, CAD, Depression, 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 sports writer, not aware), Fractures, Gastritis, Gall Bladder Disease (s/p cholecystectomy), HTN, Post Traumatic Stress Disorder, Chronic Kidney Disease, Rheumatoid Arthritis, Seizures, Chronic Pain Surgical History: Cholecystectomy - [facility] Procedures ALCOHOL DETOXIFICATION (07/04/15) APPLICATION OF SPLINT (03/20/13) CLOSURE SKIN & SUBCUTANEOUS NEC (08/14/13) DETOXIFICATION SERVICES FOR SUBSTANCE ABUSE TREATMENT (03/22/16) ESOPHAGOGASTRODUODENOSCOPY [EGD] W/CLOSED BIOPSY (02/16/15) OTHER GROUP THERAPY (03/12/13) PHYSICAL THERAPY NEC (07/04/15) TETANUS TOXOID ADMINIST (01/19/14) Family History: States: Unknown Family Hx - Social History Hx Tobacco Use: No Hx Alcohol Use: Yes Hx Substance Use: No - Immunization History Hx Tetanus Toxoid Vaccination: Yes Hx Influenza Vaccination: No Hx Pneumococcal Vaccination: No Review Of Systems Except As Marked, All Systems Reviewed And Found Negative. Constitutional: Negative for: Fever Cardiovascular: Negative for: Chest Pain Neurological: Negative for: Weakness, Numbness Psych: Negative for: Suicidal ideation Physical Exam - Physical Exam Appears: Non-toxic, No Acute Distress, Other (EtOH on breath) Skin: Warm, Dry Head: Atraumatic, Normacephalic Neck: Normal ROM, Supple Chest: Symmetrical Cardiovascular: Rhythm Regular Back: Normal Inspection, No CVA Tenderness Extremity: Normal ROM Neurological/Psych: Oriented x3 Gait: Unsteady ED Course And Treatment O2 Sat by Pulse Oximetry: 96 (RA) Pulse Ox Interpretation: Normal Reevaluation Time: 06:14 Reassessment Condition: Improved Disposition Doctor Will See Patient In The: Office Counseled Patient/Family Regarding: Studies Performed, Diagnosis - Disposition Disposition: HOME/ ROUTINE Disposition Time: 06:14 Condition: GOOD - Clinical Impression Clinical Impression: Alcohol abuse - Scribe Statement The provider has reviewed the documentation as recorded by the Scribjosé miguel Fajardo Provider Attestation: All medical record entries made by the Rominaibe were at my direction and personally dictated by me. I have reviewed the chart and agree that the record accurately reflects my personal performance of the history, physical exam, medical decision making, and the department course for this patient. I have also personally directed, reviewed, and agree with the discharge instructions and disposition.
[2017-01-15 05:27] VITALS: BP 130/79; PULSE 92; RESP 18; TEMP 97.8
[2017-01-15 06:15] VITALS: O2SAT 96
== END 2017-01-15 06:14 | disposition home or self-care (01) ==
LOC: C.ER 21:19 → C.9OBSV 22:48
PROVIDERS: ADMIT Internal Medicine; ATTEND Internal Medicine
DX: F10.229 Alcohol dependence with intoxication, unspecified (principal); E11.22 Type 2 diabetes mellitus with diabetic chronic kidney disease; I13.10 Hypertensive heart and chronic kidney disease without heart failure, with stage 1 through stage 4 chronic kidney disease, or unspecified chronic kidney disease; N18.9 Chronic kidney disease, unspecified; F41.8 Other specified anxiety disorders
CPT/HCPCS: 99284; G0378 ×2

== ENCOUNTER 2017-01-15 19:53 | Observation (INO) | payer MEDICAID ==
[2017-01-15 19:54] VITALS: BMI 29.7
[2017-01-15 20:21] VITALS: RESP 18
--- NOTE | 2017-01-15 20:21 | C.PDOC ---
History Of Present Illness Patient presents to the ER intoxicated, looking for a place to stay the night. Denies any injury or trauma. Time Seen by Provider: 01/15/17 20:19 Chief Complaint (Nursing): Substance Abuse History Per: Patient History/Exam Limitations: no limitations, intoxication Onset/Duration Of Symptoms: Hrs Current Symptoms Are (Timing): Still Present Modifying Factor(s): Alcohol Past Medical History Reviewed: Historical Data, Nursing Documentation, Vital Signs Vital Signs: Last Vital Signs Temp 97.9 F 01/15/17 20:13 Pulse 91 H 01/15/17 20:13 Resp 18 01/15/17 20:13 BP 167/108 H 01/15/17 20:13 Pulse Ox 99 01/16/17 00:40 - Medical History PMH: Anxiety, Arthritis, Bronchitis, CAD, Depression, 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 aware), Fractures, Gastritis, Gall Bladder Disease (s/p cholecystectomy), HTN, Post Traumatic Stress Disorder, Chronic Kidney Disease, Rheumatoid Arthritis, Seizures, Chronic Pain Surgical History: Cholecystectomy - [facility] Procedures ALCOHOL DETOXIFICATION (07/04/15) APPLICATION OF SPLINT (03/20/13) CLOSURE SKIN & SUBCUTANEOUS NEC (08/14/13) DETOXIFICATION SERVICES FOR SUBSTANCE ABUSE TREATMENT (03/22/16) ESOPHAGOGASTRODUODENOSCOPY [EGD] W/CLOSED BIOPSY (02/16/15) OTHER GROUP THERAPY (03/12/13) PHYSICAL THERAPY NEC (07/04/15) TETANUS TOXOID ADMINIST (01/19/14) Family History: States: No Known Family Hx - Social History Hx Tobacco Use: No Hx Alcohol Use: Yes Hx Substance Use: No - Immunization History Hx Tetanus Toxoid Vaccination: Yes Hx Influenza Vaccination: No Hx Pneumococcal Vaccination: No Review Of Systems Constitutional: Negative for: Fever, Chills Cardiovascular: Negative for: Chest Pain, Palpitations Gastrointestinal: Negative for: Nausea, Vomiting Physical Exam - Physical Exam Appears: Well, Non-toxic, Other (ETOH on breath) Skin: Warm, Dry Oral Mucosa: Moist Chest: Symmetrical Cardiovascular: Rhythm Regular Respiratory: No Rales, No Rhonchi, No Wheezing Gastrointestinal/Abdominal: Soft, No Tenderness ED Course And Treatment O2 Sat by Pulse Oximetry: 99 Pulse Ox Interpretation: Normal Progress Note: 21:19 pt with possible seizure. 2 mg IM ativan given. vitals stable Reevaluation Time: 05:22 Reassessment Condition: Improved ED OBSERVATION Discharge: Yes Date of observation admission: 01/15/17 Time of observation admission: 20:20 - Observation admission statement Patient is being placed in observation because:: acute alcohol intoxication - Goals of Observation Goals of observation are:: sobriety - Progress Note Progress Note: 01/15/17 20:20 vitals stable, no complaints 01/15/17 22:20 no complaints 01/16/17 00:21 vitals stable 01/16/17 02:22 arousable, 01/16/17 04:20 ambulating to the bathroom Disposition Counseled Patient/Family Regarding: Studies Performed, Diagnosis, Need For Followup - Disposition Disposition: HOME/ ROUTINE Disposition Time: 20:20 Condition: FAIR - Clinical Impression Clinical Impression: Seizure disorder, Alcohol abuse with intoxication - Scribe Statement Fabián Ramirez All medical record entries made by the Scribe were at my direction and personally dictated by me. I have reviewed the chart and agree that the record accurately reflects my personal performance of the history, physical exam, medical decision making, and the department course for this patient. I have also personally directed, reviewed, and agree with the discharge instructions and disposition.
[2017-01-16 05:43] VITALS: BP 136/89; PULSE 85; TEMP 98.4; O2SAT 97
== END 2017-01-16 05:23 | disposition home or self-care (01) ==
LOC: C.ER 19:53 → C.9OBSV 20:21
PROVIDERS: ADMIT Emergency Medicine; ATTEND Emergency Medicine
DX: F10.229 Alcohol dependence with intoxication, unspecified (principal); F41.8 Other specified anxiety disorders; E11.22 Type 2 diabetes mellitus with diabetic chronic kidney disease; I13.10 Hypertensive heart and chronic kidney disease without heart failure, with stage 1 through stage 4 chronic kidney disease, or unspecified chronic kidney disease; N18.9 Chronic kidney disease, unspecified; Z79.4 Long term (current) use of insulin; G40.909 Epilepsy, unspecified, not intractable, without status epilepticus
CPT/HCPCS: 96372; 99285; G0378; J2060

== ENCOUNTER 2017-01-16 19:10 | Observation (INO) | payer MEDICAID ==
[2017-01-16 19:11] VITALS: BMI 29.7
[2017-01-16 19:24] VITALS: O2SAT 98
--- NOTE | 2017-01-16 21:03 | C.PDOC ---
History Of Present Illness 56 y/o male presents to the ER intoxicated, looking for a place to stay for the night. Denies any injury or complaints. Chief Complaint (Nursing): Substance Abuse History Per: Patient History/Exam Limitations: no limitations Suicide/Self Injury Attempted (Context): None Modifying Factor(s): Alcohol Severity: Mild Involuntary Hold By: None Recent travel outside of the [place]: No Past Medical History Reviewed: Historical Data, Nursing Documentation, Vital Signs Vital Signs: Last Vital Signs Temp 98.1 F 01/16/17 21:59 Pulse 94 H 01/16/17 21:59 Resp 16 01/16/17 21:59 BP 149/88 01/16/17 21:59 Pulse Ox 98 01/17/17 04:11 - Medical History PMH: Anxiety, Arthritis, Bronchitis, CAD, Depression, 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 card writer hand, not aware), Fractures, Gastritis, Gall Bladder Disease (s/p cholecystectomy), HTN, Post Traumatic Stress Disorder, Chronic Kidney Disease, Rheumatoid Arthritis, Seizures, Chronic Pain Surgical History: Cholecystectomy - [facility] Procedures ALCOHOL DETOXIFICATION (07/04/15) APPLICATION OF SPLINT (03/20/13) CLOSURE SKIN & SUBCUTANEOUS NEC (08/14/13) DETOXIFICATION SERVICES FOR SUBSTANCE ABUSE TREATMENT (03/22/16) ESOPHAGOGASTRODUODENOSCOPY [EGD] W/CLOSED BIOPSY (02/16/15) OTHER GROUP THERAPY (03/12/13) PHYSICAL THERAPY NEC (07/04/15) TETANUS TOXOID ADMINIST (01/19/14) Family History: States: Unknown Family Hx - Social History Hx Tobacco Use: No Hx Alcohol Use: Yes Hx Substance Use: No - Immunization History Hx Tetanus Toxoid Vaccination: Yes Hx Influenza Vaccination: No Hx Pneumococcal Vaccination: No Review Of Systems Except As Marked, All Systems Reviewed And Found Negative. Physical Exam - Physical Exam Appears: Non-toxic, No Acute Distress Skin: Warm, Dry, No Rash Head: Atraumatic, Normacephalic Neck: Normal ROM, Supple Chest: Symmetrical Cardiovascular: Rhythm Regular, No Murmur Respiratory: Normal Breath Sounds, No Rales, No Rhonchi, No Wheezing Gastrointestinal/Abdominal: Soft Extremity: Normal ROM Extremity: Bilateral: Atraumatic Neurological/Psych: Oriented x3 ED Course And Treatment O2 Sat by Pulse Oximetry: 98 (on room air) Pulse Ox Interpretation: Normal Disposition Counseled Patient/Family Regarding: Diagnosis - Disposition Disposition: HOME/ ROUTINE Disposition Time: 04:13 Condition: STABLE - POA Present On Arrival: None - Clinical Impression Clinical Impression: Alcohol intoxication - Scribe Statement The provider has reviewed the documentation as recorded by the Jada Anaya Provider Attestation: All medical record entries made by the Jada were at my direction and personally dictated by me. I have reviewed the chart and agree that the record accurately reflects my personal performance of the history, physical exam, medical decision making, and the department course for this patient. I have also personally directed, reviewed, and agree with the discharge instructions and disposition.
[2017-01-16 22:00] VITALS: BP 149/88; PULSE 94; RESP 16; TEMP 98.1
== END 2017-01-17 04:10 | disposition home or self-care (01) ==
LOC: C.ER 19:10 → C.9OBSV 22:01
PROVIDERS: ADMIT Emergency Medicine; ATTEND Emergency Medicine
DX: F10.229 Alcohol dependence with intoxication, unspecified (principal); E11.9 Type 2 diabetes mellitus without complications; E11.22 Type 2 diabetes mellitus with diabetic chronic kidney disease; I13.10 Hypertensive heart and chronic kidney disease without heart failure, with stage 1 through stage 4 chronic kidney disease, or unspecified chronic kidney disease; N18.9 Chronic kidney disease, unspecified; Z79.4 Long term (current) use of insulin; F41.8 Other specified anxiety disorders
CPT/HCPCS: 82948; 99283; G0378

== ENCOUNTER 2017-01-17 19:30 | Observation (INO) | payer MEDICAID ==
--- NOTE | 2017-01-17 19:54 | C.PDOC ---
History Of Present Illness Patient presents to the emergency room with ETOH intoxication. Patient is well known to the ED with multiple visits for ETOH intoxication. Patient wants a place to stay. Patient denies any physical complaints. Time Seen by Provider: 01/17/17 19:51 History Per: Patient History/Exam Limitations: no limitations Onset/Duration Of Symptoms: Hrs Current Symptoms Are (Timing): Still Present Suicide/Self Injury Attempted (Context): None Modifying Factor(s): Alcohol Recent travel outside of the [place]: No Past Medical History Reviewed: Historical Data, Nursing Documentation, Vital Signs Vital Signs: Last Vital Signs Temp 98 F 01/18/17 03:04 Pulse 74 01/18/17 03:04 Resp 20 01/18/17 03:04 BP 145/74 01/18/17 03:04 Pulse Ox 100 01/18/17 03:04 - Medical History PMH: Anxiety, Arthritis, Bronchitis, CAD, Depression, 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, not aware), Fractures, Gastritis, Gall Bladder Disease (s/p cholecystectomy), HTN, Post Traumatic Stress Disorder, Chronic Kidney Disease, Rheumatoid Arthritis, Seizures, Chronic Pain Surgical History: Cholecystectomy - [facility] Procedures ALCOHOL DETOXIFICATION (07/04/15) APPLICATION OF SPLINT (03/20/13) CLOSURE SKIN & SUBCUTANEOUS NEC (08/14/13) DETOXIFICATION SERVICES FOR SUBSTANCE ABUSE TREATMENT (03/22/16) ESOPHAGOGASTRODUODENOSCOPY [EGD] W/CLOSED BIOPSY (02/16/15) OTHER GROUP THERAPY (03/12/13) PHYSICAL THERAPY NEC (07/04/15) TETANUS TOXOID ADMINIST (01/19/14) Family History: States: Unknown Family Hx - Social History Hx Tobacco Use: No Hx Alcohol Use: Yes Hx Substance Use: No - Immunization History Hx Tetanus Toxoid Vaccination: Yes Hx Influenza Vaccination: No Hx Pneumococcal Vaccination: No Review Of Systems Constitutional: Positive for: Other (ETOH intoxication) Gastrointestinal: Negative for: Nausea, Vomiting, Diarrhea Physical Exam - Physical Exam Appears: Non-toxic, No Acute Distress Skin: Warm, Dry Extremity: Normal ROM, No Tenderness Neurological/Psych: Oriented x3, Normal Speech ED Course And Treatment O2 Sat by Pulse Oximetry: 100 Pulse Ox Interpretation: Normal Reevaluation Time: 04:41 Reassessment Condition: Improved ED OBSERVATION Discharge: Yes Date of observation admission: 01/17/17 Time of observation admission: 19:53 - Observation admission statement Patient is being placed in observation because:: acute alcohol intoxication - Goals of Observation Goals of observation are:: sobriety - Progress Note Progress Note: 01/17/17 19:54 vitals stable, no complaints 01/17/17 21:54 vitals stable 01/17/17 23:55 arousable Disposition Counseled Patient/Family Regarding: Studies Performed, Diagnosis, Need For Followup - Disposition Disposition: HOME/ ROUTINE Disposition Time: 19:52 Condition: FAIR - Clinical Impression Clinical Impression: Alcohol abuse with intoxication - Scribe Statement The provider has reviewed the documentation as recorded by the Rominaibjosé miguel Orozco All medical record entries made by the Jada were at my direction and personally dictated by me. I have reviewed the chart and agree that the record accurately reflects my personal performance of the history, physical exam, medical decision making, and the department course for this patient. I have also personally directed, reviewed, and agree with the discharge instructions and disposition.
[2017-01-17 19:57] VITALS: BMI 31.9
[2017-01-17 20:07] VITALS: RESP 20
[2017-01-18 03:05] VITALS: BP 145/74; PULSE 74; TEMP 98; O2SAT 100
== END 2017-01-18 04:42 | disposition home or self-care (01) ==
LOC: C.ER 19:30 → C.9OBSV 19:53
PROVIDERS: ADMIT Emergency Medicine; ATTEND Emergency Medicine
DX: F10.229 Alcohol dependence with intoxication, unspecified (principal); E11.22 Type 2 diabetes mellitus with diabetic chronic kidney disease; I12.9 Hypertensive chronic kidney disease with stage 1 through stage 4 chronic kidney disease, or unspecified chronic kidney disease; N18.9 Chronic kidney disease, unspecified; Z79.4 Long term (current) use of insulin; F41.8 Other specified anxiety disorders; F43.10 Post-traumatic stress disorder, unspecified; M06.9 Rheumatoid arthritis, unspecified
CPT/HCPCS: 82948; 99284; G0378

== ENCOUNTER 2017-01-18 16:36 | Observation (INO) | payer MEDICAID ==
[2017-01-18 16:36] VITALS: BMI 31.9
[2017-01-18 17:20] VITALS: RESP 16; TEMP 97.5
--- NOTE | 2017-01-18 17:32 | C.PDOC ---
History Of Present Illness 56 year old homeless male with a history of alcohol abuse presents to the ED requesting a place to stay. Patient is well known to the ED for frequent visits for the same and admits to drinking today. He has no complaints at this time. Time Seen by Provider: 01/18/17 17:21 Chief Complaint (Nursing): Substance Abuse History Per: Patient History/Exam Limitations: no limitations Onset/Duration Of Symptoms: Hrs Current Symptoms Are (Timing): Still Present Suicide/Self Injury Attempted (Context): None Modifying Factor(s): Alcohol Past Medical History Reviewed: Historical Data, Nursing Documentation, Vital Signs Vital Signs: Last Vital Signs Temp 97.5 F L 01/18/17 17:17 Pulse 88 01/18/17 17:17 Resp 16 01/18/17 17:17 BP 122/88 01/18/17 17:17 Pulse Ox 99 01/18/17 17:52 - Medical History PMH: Anxiety, Arthritis, Bronchitis, CAD, Depression, 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 software writer, not aware), Fractures, Gastritis, Gall Bladder Disease (s/p cholecystectomy), HTN, Post Traumatic Stress Disorder, Chronic Kidney Disease, Rheumatoid Arthritis, Seizures, Chronic Pain Surgical History: Cholecystectomy - [facility] Procedures ALCOHOL DETOXIFICATION (07/04/15) APPLICATION OF SPLINT (03/20/13) CLOSURE SKIN & SUBCUTANEOUS NEC (08/14/13) DETOXIFICATION SERVICES FOR SUBSTANCE ABUSE TREATMENT (03/22/16) ESOPHAGOGASTRODUODENOSCOPY [EGD] W/CLOSED BIOPSY (02/16/15) OTHER GROUP THERAPY (03/12/13) PHYSICAL THERAPY NEC (07/04/15) TETANUS TOXOID ADMINIST (01/19/14) Family History: States: Unknown Family Hx - Social History Hx Tobacco Use: No Hx Alcohol Use: Yes Hx Substance Use: No - Immunization History Hx Tetanus Toxoid Vaccination: Yes Hx Influenza Vaccination: No Hx Pneumococcal Vaccination: No Review Of Systems Except As Marked, All Systems Reviewed And Found Negative. Constitutional: Positive for: Other (+Intoxication). Negative for: Fever, Chills Respiratory: Negative for: Shortness of Breath Gastrointestinal: Negative for: Vomiting Physical Exam - Physical Exam Appears: Non-toxic, No Acute Distress, Other (+AOB + Intoxicated) Skin: Normal Color, Warm, Dry Head: Atraumatic, Normacephalic Eye(s): bilateral: Normal Inspection Oral Mucosa: Moist Chest: Symmetrical, No Deformity Cardiovascular: Rhythm Regular Respiratory: Normal Breath Sounds, No Accessory Muscle Use Extremity: Normal ROM Neurological/Psych: Oriented x3 ED Course And Treatment O2 Sat by Pulse Oximetry: 99 (Room air) Pulse Ox Interpretation: Normal Reevaluation Time: 01:00 Reassessment Condition: Improved Disposition - Disposition Disposition Time: 01:00 Condition: GOOD - Clinical Impression Clinical Impression: Alcohol abuse - Scribe Statement The provider has reviewed the documentation as recorded by the Scribe Cory Lee. Provider Attestation: All medical record entries made by the Scribe were at my direction and personally dictated by me. I have reviewed the chart and agree that the record accurately reflects my personal performance of the history, physical exam, medical decision making, and the department course for this patient. I have also personally directed, reviewed, and agree with the discharge instructions and disposition. Physician Patient Turnover Patient Signed Over To: Radha Sow Handoff Comments: dispo in AM when sober
--- NOTE | 2017-01-18 17:37 | C.PDOC ---
<Andrey Craig - Last Filed: 01/18/17 17:37> <Radha Sow - Last Filed: 01/19/17 02:17> Time Seen by Provider: 01/18/17 17:21 Chief Complaint (Nursing): Substance Abuse Past Medical History - Medical History PMH: Anxiety, Arthritis, Bronchitis, CAD, Depression, 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 bond underwriter, not aware), Fractures, Gastritis, Gall Bladder Disease (s/p cholecystectomy), HTN, Post Traumatic Stress Disorder, Chronic Kidney Disease, Rheumatoid Arthritis, Seizures, Chronic Pain Surgical History: Cholecystectomy Family History: States: Unknown Family Hx - Social History Hx Tobacco Use: No Hx Alcohol Use: Yes Hx Substance Use: No - Immunization History Hx Tetanus Toxoid Vaccination: Yes Hx Influenza Vaccination: No Hx Pneumococcal Vaccination: No <Andrey Craig - Last Filed: 01/18/17 17:37> Family History: States: No Known Family Hx <Radha Sow - Last Filed: 01/19/17 02:17> Vital Signs: Last Vital Signs Temp 97.5 F L 01/19/17 00:57 Pulse 96 H 01/19/17 00:57 Resp 16 01/19/17 00:57 BP 122/78 01/19/17 00:57 Pulse Ox 97 01/19/17 00:57 - [facility] Procedures ALCOHOL DETOXIFICATION (07/04/15) APPLICATION OF SPLINT (03/20/13) CLOSURE SKIN & SUBCUTANEOUS NEC (08/14/13) DETOXIFICATION SERVICES FOR SUBSTANCE ABUSE TREATMENT (03/22/16) ESOPHAGOGASTRODUODENOSCOPY [EGD] W/CLOSED BIOPSY (02/16/15) OTHER GROUP THERAPY (03/12/13) PHYSICAL THERAPY NEC (07/04/15) TETANUS TOXOID ADMINIST (01/19/14) ED Course And Treatment O2 Sat by Pulse Oximetry: 99 <Andrey Craig - Last Filed: 01/18/17 17:37> Disposition <Andrey Craig - Last Filed: 01/18/17 17:37> Counseled Patient/Family Regarding: Studies Performed, Diagnosis, Need For Followup - Disposition Disposition Time: 01:00 <Radha Sow - Last Filed: 01/19/17 02:17> - Disposition Disposition: HOME/ ROUTINE Condition: FAIR - Clinical Impression Clinical Impression: Alcohol abuse
[2017-01-19 00:58] VITALS: BP 122/78; PULSE 96; O2SAT 97
== END 2017-01-19 02:18 | disposition home or self-care (01) ==
LOC: C.ER 16:36 → C.9OBSV 18:03
PROVIDERS: ADMIT Internal Medicine; ATTEND Internal Medicine
DX: F10.229 Alcohol dependence with intoxication, unspecified (principal); F41.8 Other specified anxiety disorders; E11.22 Type 2 diabetes mellitus with diabetic chronic kidney disease; I12.9 Hypertensive chronic kidney disease with stage 1 through stage 4 chronic kidney disease, or unspecified chronic kidney disease; N18.9 Chronic kidney disease, unspecified
CPT/HCPCS: 99284; G0378

== ENCOUNTER 2017-01-19 05:55 | Observation (INO) | payer MEDICAID ==
[2017-01-19 05:56] VITALS: BMI 31.9
[2017-01-19 06:54] VITALS: RESP 16
--- NOTE | 2017-01-19 07:27 | C.PDOC ---
History Of Present Illness 56 yr old male presents to the ER intoxicated. Patient has multiple ER visits in the past for alcohol intoxication. Patient was seen last night also for same , was discharged in stable condition but returned again today. Patient currently fever, chest pain, SOB, nausea, vomiting, weakness or numbness. Time Seen by Provider: 01/19/17 07:10 Chief Complaint (Nursing): Substance Abuse History Per: Patient History/Exam Limitations: no limitations Onset/Duration Of Symptoms: Persistent Current Symptoms Are (Timing): Still Present Suicide/Self Injury Attempted (Context): None Modifying Factor(s): Alcohol Severity: None Associated Symptoms: denies: Anger, Anxiety, Suicidal Thoughts Involuntary Hold By: None Recent travel outside of the [place]: No Additional History Per: Prior Records Past Medical History Reviewed: Historical Data, Nursing Documentation, Vital Signs Vital Signs: Last Vital Signs Temp 98.5 F 01/19/17 07:45 Pulse 92 H 01/19/17 07:45 Resp 16 01/19/17 07:45 BP 144/98 H 01/19/17 07:45 Pulse Ox 100 01/19/17 07:45 - Medical History PMH: Anxiety, Arthritis, Bronchitis, CAD, Depression, 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 entry writer, not aware), Fractures, Gastritis, Gall Bladder Disease (s/p cholecystectomy), HTN, Post Traumatic Stress Disorder, Chronic Kidney Disease, Rheumatoid Arthritis, Seizures, Chronic Pain Surgical History: Cholecystectomy - [facility] Procedures ALCOHOL DETOXIFICATION (07/04/15) APPLICATION OF SPLINT (03/20/13) CLOSURE SKIN & SUBCUTANEOUS NEC (08/14/13) DETOXIFICATION SERVICES FOR SUBSTANCE ABUSE TREATMENT (03/22/16) ESOPHAGOGASTRODUODENOSCOPY [EGD] W/CLOSED BIOPSY (02/16/15) OTHER GROUP THERAPY (03/12/13) PHYSICAL THERAPY NEC (07/04/15) TETANUS TOXOID ADMINIST (01/19/14) Family History: States: No Known Family Hx - Social History Hx Tobacco Use: No Hx Alcohol Use: Yes Hx Substance Use: No - Immunization History Hx Tetanus Toxoid Vaccination: Yes Review Of Systems Except As Marked, All Systems Reviewed And Found Negative. Constitutional: Negative for: Fever Cardiovascular: Negative for: Chest Pain Respiratory: Negative for: Shortness of Breath Gastrointestinal: Negative for: Nausea, Vomiting Neurological: Negative for: Weakness, Numbness Physical Exam - Physical Exam Appears: Non-toxic, No Acute Distress, Unkempt Skin: Warm, Dry, No Rash Head: Atraumatic, Normacephalic Oral Mucosa: Moist Cardiovascular: Rhythm Regular Respiratory: Normal Breath Sounds Extremity: Normal ROM Neurological/Psych: Oriented x3, Normal Speech ED Course And Treatment O2 Sat by Pulse Oximetry: 97 Medical Decision Making Medical Decision Making: Pt with steady gait Stable for DC Disposition - Disposition Disposition: HOME/ ROUTINE Disposition Time: 11:12 Condition: FAIR - Clinical Impression Clinical Impression: Homeless single person - Scribe Statement The provider has reviewed the documentation as recorded by the Scribe Lissett Alves Provider Attestation: All medical record entries made by the Scribe were at my direction and personally dictated by me. I have reviewed the chart and agree that the record accurately reflects my personal performance of the history, physical exam, medical decision making, and the department course for this patient. I have also personally directed, reviewed, and agree with the discharge instructions and disposition.
[2017-01-19 11:03] VITALS: BP 144/98; PULSE 92; TEMP 98.5
[2017-01-19 11:15] VITALS: O2SAT 97
== END 2017-01-19 11:12 | disposition home or self-care (01) ==
LOC: C.ER 05:55 → C.9OBSV 07:21
PROVIDERS: ADMIT Emergency Medicine; ATTEND Emergency Medicine
DX: F10.229 Alcohol dependence with intoxication, unspecified (principal); E11.22 Type 2 diabetes mellitus with diabetic chronic kidney disease; I13.10 Hypertensive heart and chronic kidney disease without heart failure, with stage 1 through stage 4 chronic kidney disease, or unspecified chronic kidney disease; N18.9 Chronic kidney disease, unspecified; F41.8 Other specified anxiety disorders; R56.9 Unspecified convulsions
CPT/HCPCS: 99283; G0378

== ENCOUNTER 2017-01-19 22:27 | Observation (INO) | payer MEDICAID ==
--- NOTE | 2017-01-19 22:32 | C.PDOC ---
History Of Present Illness Patient presents to the ER intoxicated and looking for a place to stay. Patient has multiple ER visits in the past for alcohol intoxication. Patient was seen earlier this morning for same the, was discharged in stable condition but returned again tonight. Patient currently denies fever, chills, nausea, and vomiting. Time Seen by Provider: 01/19/17 22:30 History Per: Patient History/Exam Limitations: no limitations Onset/Duration Of Symptoms: Hrs Current Symptoms Are (Timing): Still Present Suicide/Self Injury Attempted (Context): None Modifying Factor(s): Alcohol Past Medical History Reviewed: Historical Data, Nursing Documentation, Vital Signs Vital Signs: Last Vital Signs Temp 98.2 F 01/20/17 03:20 Pulse 83 01/20/17 03:20 Resp 18 01/20/17 03:20 BP 132/86 01/20/17 03:20 Pulse Ox 96 01/20/17 03:20 - Medical History PMH: Anxiety, Arthritis, Bronchitis, CAD, Depression, 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 policy writer typist, not aware), Fractures, Gastritis, Gall Bladder Disease (s/p cholecystectomy), HTN, Post Traumatic Stress Disorder, Chronic Kidney Disease, Rheumatoid Arthritis, Seizures, Chronic Pain Surgical History: Cholecystectomy - [facility] Procedures ALCOHOL DETOXIFICATION (07/04/15) APPLICATION OF SPLINT (03/20/13) CLOSURE SKIN & SUBCUTANEOUS NEC (08/14/13) DETOXIFICATION SERVICES FOR SUBSTANCE ABUSE TREATMENT (03/22/16) ESOPHAGOGASTRODUODENOSCOPY [EGD] W/CLOSED BIOPSY (02/16/15) OTHER GROUP THERAPY (03/12/13) PHYSICAL THERAPY NEC (07/04/15) TETANUS TOXOID ADMINIST (01/19/14) Family History: States: No Known Family Hx - Social History Hx Tobacco Use: No Hx Alcohol Use: Yes Hx Substance Use: No - Immunization History Hx Tetanus Toxoid Vaccination: Yes Hx Influenza Vaccination: No Hx Pneumococcal Vaccination: No Review Of Systems Constitutional: Negative for: Fever, Chills Cardiovascular: Negative for: Palpitations Respiratory: Negative for: Cough, Shortness of Breath Gastrointestinal: Negative for: Nausea, Vomiting Physical Exam - Physical Exam Appears: Well, Non-toxic, Other (ETOH on breath) Skin: Warm, Dry Oral Mucosa: Moist Chest: Symmetrical Cardiovascular: Rhythm Regular Respiratory: No Rales, No Rhonchi, No Wheezing Gastrointestinal/Abdominal: Soft, No Tenderness Neurological/Psych: Oriented x3, Normal Speech ED Course And Treatment O2 Sat by Pulse Oximetry: 99 Pulse Ox Interpretation: Normal Reevaluation Time: 04:46 Reassessment Condition: Improved ED OBSERVATION Discharge: Yes Disposition Counseled Patient/Family Regarding: Studies Performed, Diagnosis, Need For Followup - Disposition Disposition: HOME/ ROUTINE Disposition Time: 22:31 Condition: FAIR - Clinical Impression Clinical Impression: Acute alcohol intoxication, Noncompliance with medications, Alcohol abuse, daily use - Scribe Statement The provider has reviewed the documentation as recorded by the Scribjosé miguel Ramirez All medical record entries made by the Rominaibjos émiguel were at my direction and personally dictated by me. I have reviewed the chart and agree that the record accurately reflects my personal performance of the history, physical exam, medical decision making, and the department course for this patient. I have also personally directed, reviewed, and agree with the discharge instructions and disposition.
[2017-01-19 22:40] VITALS: BMI 29.8
[2017-01-20 03:22] VITALS: BP 132/86; PULSE 83; RESP 18; TEMP 98.2
[2017-01-20 04:49] VITALS: O2SAT 99
== END 2017-01-20 04:49 | disposition home or self-care (01) ==
LOC: C.ER 22:27 → C.9OBSV 22:40
PROVIDERS: ADMIT Emergency Medicine; ATTEND Emergency Medicine
DX: F10.229 Alcohol dependence with intoxication, unspecified (principal); E11.22 Type 2 diabetes mellitus with diabetic chronic kidney disease; I12.9 Hypertensive chronic kidney disease with stage 1 through stage 4 chronic kidney disease, or unspecified chronic kidney disease; N18.9 Chronic kidney disease, unspecified; F32.9 Major depressive disorder, single episode, unspecified
CPT/HCPCS: 82948; 99283; G0378

== ENCOUNTER 2017-01-20 22:24 | Emergency (ER) | payer MEDICAID ==
[2017-01-20 22:24] VITALS: BMI 29.8
[2017-01-20 22:31] VITALS: BP 151/90; PULSE 99; RESP 16; TEMP 98.1; O2SAT 97
--- NOTE | 2017-01-20 23:00 | C.PDOC ---
History Of Present Illness 56 year old male presents to the ED seeking a place to sleep and is intoxicated. Patient denies any other complaints at this time. Time Seen by Provider: 01/20/17 22:47 Chief Complaint (Nursing): Substance Abuse History Per: Patient History/Exam Limitations: no limitations Past Medical History Vital Signs: Last Vital Signs Temp 98.1 F 01/20/17 22:28 Pulse 99 H 01/20/17 22:28 Resp 16 01/20/17 22:28 BP 151/90 H 01/20/17 22:28 Pulse Ox 97 01/23/17 11:47 - Medical History PMH: Anxiety, Arthritis, Bronchitis, CAD, Depression, 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 promotion writer, not aware), Fractures, Gastritis, Gall Bladder Disease (s/p cholecystectomy), HTN, Post Traumatic Stress Disorder, Chronic Kidney Disease, Rheumatoid Arthritis, Seizures, Chronic Pain Surgical History: Cholecystectomy - [facility] Procedures ALCOHOL DETOXIFICATION (07/04/15) APPLICATION OF SPLINT (03/20/13) CLOSURE SKIN & SUBCUTANEOUS NEC (08/14/13) DETOXIFICATION SERVICES FOR SUBSTANCE ABUSE TREATMENT (03/22/16) ESOPHAGOGASTRODUODENOSCOPY [EGD] W/CLOSED BIOPSY (02/16/15) OTHER GROUP THERAPY (03/12/13) PHYSICAL THERAPY NEC (07/04/15) TETANUS TOXOID ADMINIST (01/19/14) Family History: States: No Known Family Hx - Social History Hx Tobacco Use: No Hx Alcohol Use: Yes Hx Substance Use: No - Immunization History Hx Tetanus Toxoid Vaccination: Yes Hx Influenza Vaccination: No Hx Pneumococcal Vaccination: No Review Of Systems Constitutional: Negative for: Fever Gastrointestinal: Negative for: Nausea, Vomiting, Diarrhea Physical Exam - Physical Exam Appears: Non-toxic, No Acute Distress, Other (alcohol on breath ) Skin: Warm, Dry Neck: Supple Cardiovascular: Rhythm Regular Respiratory: No Accessory Muscle Use, No Rales, No Rhonchi, No Stridor, No Wheezing ED Course And Treatment O2 Sat by Pulse Oximetry: 97 ED OBSERVATION Date of observation admission: 01/20/17 Time of observation admission: 22:58 - Observation admission statement Patient is being placed in observation because:: alcohol intoxication - Goals of Observation Goals of observation are:: sobriety - Progress Note Progress Note: 01/20/17 22:59 Patient sleeping, easily arousable. Unsteady gait. 01/21/17 00:11 Pending sobriety. Will sign out to ER night team. Disposition - Disposition Disposition Time: 00:00 Condition: STABLE - Clinical Impression Clinical Impression: Alcohol intoxication - Scribe Statement The provider has reviewed the documentation as recorded by the Scribe Tiffany Noel All medical record entries made by the Rominaibe were at my direction and personally dictated by me. I have reviewed the chart and agree that the record accurately reflects my personal performance of the history, physical exam, medical decision making, and the department course for this patient. I have also personally directed, reviewed, and agree with the discharge instructions and disposition.
== END 2017-01-21 05:36 | disposition home or self-care (01) ==
LOC: C.ER 22:24
DX: F10.120 Alcohol abuse with intoxication, uncomplicated (principal); Y90.9 Presence of alcohol in blood, level not specified

== ENCOUNTER 2017-01-21 23:02 | Emergency (ER) | payer MEDICAID ==
[2017-01-21 23:02] VITALS: BMI 29.8
--- NOTE | 2017-01-21 23:53 | C.PDOC ---
History Of Present Illness 56 year old patient is brought to the ED by ambulance for acute alcohol intoxication. Patient was found intoxicated on the street. Patient admits to drinking alcohol prior to arrival. Patient is well known in the ED for the same complaint. Patient denies any chest pain, shortness of breath, vomiting, abdominal pain, suicidal or homicidal ideation. Time Seen by Provider: 01/21/17 23:18 Chief Complaint (Nursing): Substance Abuse History Per: Patient, EMS History/Exam Limitations: intoxication Onset/Duration Of Symptoms: Other Suicide/Self Injury Attempted (Context): None Modifying Factor(s): Alcohol Severity: None Pain Scale Rating Of: 0 Recent travel outside of the [place]: No Additional History Per: Prior Records Past Medical History Reviewed: Historical Data, Nursing Documentation, Vital Signs Vital Signs: Last Vital Signs Temp 98.5 F 01/22/17 02:08 Pulse 70 01/22/17 02:08 Resp 20 01/22/17 02:08 BP 110/70 01/22/17 02:08 Pulse Ox 98 01/22/17 02:08 - Medical History PMH: Anxiety, Arthritis, Bronchitis, CAD, Depression, 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 creative services writer, not aware), Fractures, Gastritis, Gall Bladder Disease (s/p cholecystectomy), HTN, Post Traumatic Stress Disorder, Chronic Kidney Disease, Rheumatoid Arthritis, Seizures, Chronic Pain Surgical History: Cholecystectomy - [facility] Procedures ALCOHOL DETOXIFICATION (07/04/15) APPLICATION OF SPLINT (03/20/13) CLOSURE SKIN & SUBCUTANEOUS NEC (08/14/13) DETOXIFICATION SERVICES FOR SUBSTANCE ABUSE TREATMENT (03/22/16) ESOPHAGOGASTRODUODENOSCOPY [EGD] W/CLOSED BIOPSY (02/16/15) OTHER GROUP THERAPY (03/12/13) PHYSICAL THERAPY NEC (07/04/15) TETANUS TOXOID ADMINIST (01/19/14) Family History: States: Unknown Family Hx - Social History Hx Tobacco Use: No Hx Alcohol Use: Yes Hx Substance Use: No - Immunization History Hx Tetanus Toxoid Vaccination: Yes Hx Influenza Vaccination: No Hx Pneumococcal Vaccination: No Review Of Systems Except As Marked, All Systems Reviewed And Found Negative. Cardiovascular: Negative for: Chest Pain Respiratory: Negative for: Shortness of Breath Gastrointestinal: Negative for: Vomiting, Abdominal Pain Psych: Negative for: Suicidal ideation Physical Exam - Physical Exam Appears: Non-toxic, No Acute Distress, Other (EtOH on breath) Skin: Warm, Dry Head: Atraumatic, Normacephalic Neck: Normal ROM, Supple Chest: Symmetrical Cardiovascular: Rhythm Regular Respiratory: Normal Breath Sounds, No Accessory Muscle Use, No Rales, No Rhonchi , No Wheezing Gastrointestinal/Abdominal: Soft, No Tenderness Extremity: Normal ROM ED Course And Treatment O2 Sat by Pulse Oximetry: 97 (RA) Pulse Ox Interpretation: Normal Medical Decision Making Medical Decision Making: Pt ambulatory with usual gait Stable for DC ED OBSERVATION Date of observation admission: 01/21/17 Time of observation admission: 23:52 - Observation admission statement Patient is being placed in observation because:: homelessness - Goals of Observation Goals of observation are:: safe place to sleep - Progress Note Progress Note: 01/22/17 04:54 pt stable over night Disposition - Disposition Referrals: [facility] [Outside] Disposition: HOME/ ROUTINE Disposition Time: 04:55 Condition: FAIR Forms: General Discharge Instructions - Clinical Impression Clinical Impression: Alcoholic intoxication, Homeless single person - Scribe Statement The provider has reviewed the documentation as recorded by the Scribjosé miguel Fajardo Provider Attestation: All medical record entries made by the Scribe were at my direction and personally dictated by me. I have reviewed the chart and agree that the record accurately reflects my personal performance of the history, physical exam, medical decision making, and the department course for this patient. I have also personally directed, reviewed, and agree with the discharge instructions and disposition.
[2017-01-22 02:09] VITALS: RESP 20
[2017-01-22 05:55] VITALS: BP 112/60; PULSE 85; TEMP 98.2; O2SAT 99
== END 2017-01-22 05:56 | disposition home or self-care (01) ==
LOC: C.ER 23:02
DX: F10.129 Alcohol abuse with intoxication, unspecified (principal); Y90.9 Presence of alcohol in blood, level not specified; Z59.0 Homelessness

== ENCOUNTER 2017-01-22 22:32 | Observation (INO) | payer MEDICAID ==
[2017-01-22 22:32] VITALS: BMI 29.8
--- NOTE | 2017-01-22 22:42 | C.PDOC ---
History Of Present Illness 56 year old male with a history of seizures and alcohol abuse, presents to the ED via EMS s/p seizure in [facility]. Patient is also intoxicated and well known to the ED for frequent visits for the same. Time Seen by Provider: 01/22/17 22:41 History Per: EMS History/Exam Limitations: intoxication Onset/Duration Of Symptoms: Hrs Current Symptoms Are (Timing): Still Present Modifying Factor(s): Alcohol Past Medical History Reviewed: Historical Data Vital Signs: Last Vital Signs Temp 97.6 F 01/23/17 03:27 Pulse 86 01/23/17 03:27 Resp 16 01/23/17 03:27 BP 117/80 01/23/17 03:27 Pulse Ox 100 01/23/17 03:27 - Medical History PMH: Anxiety, Arthritis, Bronchitis, CAD, Depression, 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 newspaper writer, not aware), Fractures, Gastritis, Gall Bladder Disease (s/p cholecystectomy), HTN, Post Traumatic Stress Disorder, Chronic Kidney Disease, Rheumatoid Arthritis, Seizures, Chronic Pain Surgical History: Cholecystectomy - [facility] Procedures ALCOHOL DETOXIFICATION (07/04/15) APPLICATION OF SPLINT (03/20/13) CLOSURE SKIN & SUBCUTANEOUS NEC (08/14/13) DETOXIFICATION SERVICES FOR SUBSTANCE ABUSE TREATMENT (03/22/16) ESOPHAGOGASTRODUODENOSCOPY [EGD] W/CLOSED BIOPSY (02/16/15) OTHER GROUP THERAPY (03/12/13) PHYSICAL THERAPY NEC (07/04/15) TETANUS TOXOID ADMINIST (01/19/14) Family History: States: No Known Family Hx - Social History Hx Tobacco Use: No Hx Alcohol Use: Yes Hx Substance Use: No - Immunization History Hx Tetanus Toxoid Vaccination: Yes Hx Influenza Vaccination: No Hx Pneumococcal Vaccination: No Review Of Systems Review Of Systems: ROS cannot be obtained secondary to pt's inabilty to answer questions. (Intoxication) Physical Exam - Physical Exam Appears: Non-toxic, No Acute Distress, Other (+AOB + Intoxicated) Skin: Warm, Dry Head: Atraumatic, Normacephalic Oral Mucosa: Moist Neck: Supple Chest: Symmetrical Cardiovascular: Rhythm Regular Respiratory: No Accessory Muscle Use Extremity: No Deformity ED Course And Treatment - Laboratory Results Result Diagrams: 01/22/17 23:43 01/22/17 23:43 O2 Sat by Pulse Oximetry: 100 (Room air) Pulse Ox Interpretation: Normal Progress Note: Blood work ordered and reviewed. Reevaluation Time: 05:28 Reassessment Condition: Improved ED OBSERVATION Discharge: Yes Date of observation admission: 01/22/17 Time of observation admission: 23:01 - Observation admission statement Patient is being placed in observation because:: Acute alcohol intoxication. - Goals of Observation Goals of observation are:: Sobriety. - Progress Note Progress Note: 01/22/17 23:34 Vitals stable. patient resting 01/22/17 01:45 Patient resting, no complaints 01/23/17 02:10 vitals stable, patient continues to sleep 01/23/17 04:36 Patient resting comfortably 01/23/17 05:55 Patient is awake and sober and ready for discharge. Disposition Counseled Patient/Family Regarding: Studies Performed, Diagnosis, Need For Followup - Disposition Disposition: HOME/ ROUTINE Disposition Time: 22:42 Condition: FAIR - Clinical Impression Clinical Impression: Seizure disorder, Alcohol intoxication, Alcohol abuse with intoxication - Scribe Statement The provider has reviewed the documentation as recorded by the Scribe Cory Lee. Provider Attestation: All medical record entries made by the Scribe were at my direction and personally dictated by me. I have reviewed the chart and agree that the record accurately reflects my personal performance of the history, physical exam, medical decision making, and the department course for this patient. I have also personally directed, reviewed, and agree with the discharge instructions and disposition.
[2017-01-22 23:01] VITALS: TEMP 97.6
[2017-01-22] MEDS ORDERED: Sodium Chloride 0.9% 1,000 ML IV ONE (23:02)
[2017-01-22] MEDS ORDERED: Sodium Chloride 0.9% 1,000 ML ONE (23:44)
[2017-01-22 23:46] LABS: BASO # 0.1 K/uL (0.0-0.2); BASO % 1.2 % (0.0-2.0); EOS # 0.2 K/uL (0.0-0.7); EOS % 4.2 % (0.0-4.0); HEMATOCRIT 37.8 % (35.0-51.0); LYMPH # 1.5 K/uL (1.0-4.3); LYMPH % 36.2 % (20.0-40.0); MEAN CORPUSCULAR HEMOGLOBIN 35.4 pg (27.0-31.0); MEAN PLATELET VOLUME 8.4 fL (7.2-11.7); MONO # 0.5 K/uL (0.0-0.8); MONO % 12.2 % (0.0-10.0); NRBC % 0.1 % (0.0-2.0); RED CELL DISTRIBUTION WIDTH 13.1 % (11.5-14.5); WHITE BLOOD COUNT 4.1 K/uL (4.8-10.8)
[2017-01-22 23:52] LABS: MEAN CELL VOLUME 104.3 fL (80.0-94.0)
[2017-01-23] LABS: CHLORIDE 98 mmol/L (98-107)
[2017-01-23 00:01] LABS: POTASSIUM 4.1 mmol/L (3.6-5.2); SODIUM 144 mmol/L (132-148)
[2017-01-23 00:04] LABS: ALB/GLOB RATIO 0.9 (1.0-2.1); ALKALINE PHOSPHATASE 105 U/L (38-126); ALT/SGPT 28 U/L (21-72); AST/SGOT 141 U/L (17-59); BILIRUBIN,TOTAL 0.7 mg/dL (0.2-1.3); BLOOD UREA NITROGEN 11 mg/dL (9-20); CALCIUM 9.2 mg/dl (8.6-10.4); CARBON DIOXIDE 23 mmol/L (22-30); GFR AFRICAN-AMERICAN > 60; GLUCOSE,RANDOM 101 mg/dL (75-110); TOTAL PROTEIN 9.4 g/dL (6.3-8.3)
[2017-01-23] MEDS ORDERED: Fosphenytoin 1,000 MG in Sodium Chloride 0.9% 50 ML IV STA (01:05)
[2017-01-23 01:48] LABS: ALCOHOL SERUM 328 mg/dl (0-10)
[2017-01-23 03:28] VITALS: BP 117/80; PULSE 86; RESP 16; O2SAT 100
== END 2017-01-23 05:30 | disposition home or self-care (01) ==
LOC: C.ER 22:32 → C.9OBSV 23:01
PROVIDERS: ADMIT Emergency Medicine; ATTEND Emergency Medicine
DX: F10.120 Alcohol abuse with intoxication, uncomplicated (principal); G40.909 Epilepsy, unspecified, not intractable, without status epilepticus
CPT/HCPCS: 80053; 80185; 80320; 82948; 85025; 96360; 99283; G0378; J7040; Q2009

== ENCOUNTER 2017-01-24 00:27 | Emergency (ER) | payer MEDICAID ==
[2017-01-24 05:26] VITALS: BP 150/88; PULSE 87; RESP 20; TEMP 98.2; O2SAT 95
== END 2017-01-24 05:40 | disposition home or self-care (01) ==
LOC: C.ER 00:27
DX: F10.129 Alcohol abuse with intoxication, unspecified (principal); Y90.9 Presence of alcohol in blood, level not specified

== ENCOUNTER 2017-01-24 21:44 | Observation (INO) | payer MEDICAID ==
[2017-01-24 21:45] VITALS: BMI 29.8
--- NOTE | 2017-01-24 22:11 | C.PDOC ---
History Of Present Illness Patient is brought to the ED by ambulance for acute alcohol intoxication. Patient had a seizure prior to arrival in the ED. Patient is well known in the ED and to the staff for alcohol intoxication. Review of systems cannot be obtained at this time due to patient's inability to answer questions. Time Seen by Provider: 01/24/17 21:48 Chief Complaint (Nursing): Substance Abuse History Per: EMS History/Exam Limitations: clinical condition Onset/Duration Of Symptoms: Other Current Symptoms Are (Timing): Still Present Suicide/Self Injury Attempted (Context): None Modifying Factor(s): Alcohol Involuntary Hold By: None Recent travel outside of the [place]: No Additional History Per: Prior Records Past Medical History Reviewed: Historical Data, Nursing Documentation, Vital Signs Vital Signs: Last Vital Signs Temp 97.7 F 01/25/17 00:20 Pulse 85 01/25/17 00:20 Resp 15 01/25/17 00:20 BP 115/77 01/25/17 00:20 Pulse Ox 99 01/25/17 00:20 - Medical History PMH: Anxiety, Arthritis, Bronchitis, CAD, Depression, 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 copywriter, not aware), Fractures, Gastritis, Gall Bladder Disease (s/p cholecystectomy), HTN, Post Traumatic Stress Disorder, Chronic Kidney Disease, Rheumatoid Arthritis, Seizures, Chronic Pain Surgical History: Cholecystectomy - [facility] Procedures ALCOHOL DETOXIFICATION (07/04/15) APPLICATION OF SPLINT (03/20/13) CLOSURE SKIN & SUBCUTANEOUS NEC (08/14/13) DETOXIFICATION SERVICES FOR SUBSTANCE ABUSE TREATMENT (03/22/16) ESOPHAGOGASTRODUODENOSCOPY [EGD] W/CLOSED BIOPSY (02/16/15) OTHER GROUP THERAPY (03/12/13) PHYSICAL THERAPY NEC (07/04/15) TETANUS TOXOID ADMINIST (01/19/14) Family History: States: Unknown Family Hx - Social History Hx Tobacco Use: No Hx Alcohol Use: Yes Hx Substance Use: No - Immunization History Hx Tetanus Toxoid Vaccination: Yes Hx Influenza Vaccination: No Hx Pneumococcal Vaccination: No Review Of Systems Review Of Systems: ROS cannot be obtained secondary to pt's inabilty to answer questions. Physical Exam - Physical Exam Appears: Other (postictal, EtOH on breath) Skin: Warm, Dry Head: Atraumatic, Normacephalic Neck: Supple Chest: Symmetrical Cardiovascular: Rhythm Regular Respiratory: No Rales, No Rhonchi, No Wheezing Gastrointestinal/Abdominal: Soft, No Tenderness Back: No CVA Tenderness Extremity: Bilateral: Atraumatic ED Course And Treatment O2 Sat by Pulse Oximetry: 100 (RA) Pulse Ox Interpretation: Normal Reevaluation Time: 05:16 Reassessment Condition: Improved ED OBSERVATION Discharge: Yes Date of observation admission: 01/24/17 Time of observation admission: 22:37 - Observation admission statement Patient is being placed in observation because:: acute alcohol intoxication, seizure - Goals of Observation Goals of observation are:: sobriety - Progress Note Progress Note: 01/24/17 22:37 vitals stable, no complaints 01/25/17 00:36 no seizure 01/25/17 02:38 vitals stable Disposition Counseled Patient/Family Regarding: Studies Performed, Diagnosis, Need For Followup - Disposition Disposition: HOME/ ROUTINE Disposition Time: 01:00 Condition: FAIR - Clinical Impression Clinical Impression: Alcohol abuse with intoxication, Seizure - Scribe Statement The provider has reviewed the documentation as recorded by the Rominaibjosé miguel Fajardo Provider Attestation: All medical record entries made by the Rominaibjosé miguel were at my direction and personally dictated by me. I have reviewed the chart and agree that the record accurately reflects my personal performance of the history, physical exam, medical decision making, and the department course for this patient. I have also personally directed, reviewed, and agree with the discharge instructions and disposition.
[2017-01-25 05:46] VITALS: BP 122/73; PULSE 81; RESP 16; TEMP 98.1; O2SAT 98
== END 2017-01-25 05:19 | disposition left against medical advice (07) ==
LOC: C.ER 21:44 → C.9OBSV 22:31
PROVIDERS: ADMIT Emergency Medicine; ATTEND Emergency Medicine
DX: F10.129 Alcohol abuse with intoxication, unspecified (principal); R56.9 Unspecified convulsions; I25.10 Atherosclerotic heart disease of native coronary artery without angina pectoris; M19.90 Unspecified osteoarthritis, unspecified site; F32.9 Major depressive disorder, single episode, unspecified; F41.9 Anxiety disorder, unspecified; I12.9 Hypertensive chronic kidney disease with stage 1 through stage 4 chronic kidney disease, or unspecified chronic kidney disease; E11.22 Type 2 diabetes mellitus with diabetic chronic kidney disease; N18.9 Chronic kidney disease, unspecified; M06.9 Rheumatoid arthritis, unspecified; F43.10 Post-traumatic stress disorder, unspecified
CPT/HCPCS: 82948; 99284; G0378

== ENCOUNTER 2017-01-25 20:18 | Observation (INO) | payer MEDICAID ==
[2017-01-25 20:18] VITALS: BMI 29.8
--- NOTE | 2017-01-25 21:00 | C.PDOC ---
History Of Present Illness 56 y/o male with PMHx of etoh abuse presents to ED for public intoxication, requesting a place to stay. Patient denies trauma, pain, or any other associated symptoms. Time Seen by Provider: 01/25/17 20:57 Chief Complaint (Nursing): Substance Abuse History Per: Patient History/Exam Limitations: no limitations Onset/Duration Of Symptoms: Persistent Current Symptoms Are (Timing): Still Present Suicide/Self Injury Attempted (Context): None Modifying Factor(s): Alcohol Pain Scale Rating Of: 0 Associated Symptoms: denies: Agitation, Suicidal Thoughts, Suicidal Plan Involuntary Hold By: None Recent travel outside of the [place]: No Past Medical History Reviewed: Historical Data, Nursing Documentation, Vital Signs Vital Signs: Last Vital Signs Temp 97.4 F L 01/26/17 04:06 Pulse 98 H 01/26/17 04:06 Resp 18 01/26/17 04:06 BP 113/67 01/26/17 04:06 Pulse Ox 97 01/26/17 04:36 - Medical History PMH: Anxiety, Arthritis, Bronchitis, CAD, Depression, 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 mortgage loan underwriter, not aware), Fractures, Gastritis, Gall Bladder Disease (s/p cholecystectomy), HTN, Post Traumatic Stress Disorder, Chronic Kidney Disease, Rheumatoid Arthritis, Seizures, Chronic Pain Surgical History: Cholecystectomy - [facility] Procedures ALCOHOL DETOXIFICATION (07/04/15) APPLICATION OF SPLINT (03/20/13) CLOSURE SKIN & SUBCUTANEOUS NEC (08/14/13) DETOXIFICATION SERVICES FOR SUBSTANCE ABUSE TREATMENT (03/22/16) ESOPHAGOGASTRODUODENOSCOPY [EGD] W/CLOSED BIOPSY (02/16/15) OTHER GROUP THERAPY (03/12/13) PHYSICAL THERAPY NEC (07/04/15) TETANUS TOXOID ADMINIST (01/19/14) Family History: States: Unknown Family Hx - Social History Hx Tobacco Use: No Hx Alcohol Use: Yes Hx Substance Use: No - Immunization History Hx Tetanus Toxoid Vaccination: Yes Hx Influenza Vaccination: No Hx Pneumococcal Vaccination: No Review Of Systems Constitutional: Negative for: Fever Cardiovascular: Negative for: Chest Pain, Palpitations Respiratory: Negative for: Cough, Shortness of Breath, Wheezing Gastrointestinal: Negative for: Vomiting Skin: Negative for: Rash Physical Exam - Physical Exam Appears: Non-toxic, No Acute Distress Skin: Warm, Dry Head: Atraumatic Chest: Symmetrical Cardiovascular: Rhythm Regular Respiratory: No Rales, No Rhonchi, No Wheezing Gastrointestinal/Abdominal: Soft, No Tenderness, No Guarding, No Rebound Extremity: Normal ROM, Capillary Refill (< 2 sec.) Neurological/Psych: Oriented x3 ED Course And Treatment O2 Sat by Pulse Oximetry: 97 Pulse Ox Interpretation: Normal Progress Note: Plan is to oberve pt in ER pending sobriety. Reevaluation Time: 04:36 Reassessment Condition: Improved ED OBSERVATION Discharge: Yes Date of observation admission: 01/25/17 Time of observation admission: 20:58 - Observation admission statement Patient is being placed in observation because:: intoxication - Goals of Observation Goals of observation are:: sobriety Disposition Counseled Patient/Family Regarding: Studies Performed, Diagnosis, Need For Followup - Disposition Disposition Time: 20:57 Condition: FAIR - Clinical Impression Clinical Impression: Alcoholism /alcohol abuse, Alcoholic intoxication - Scribe Statement The provider has reviewed the documentation as recorded by the Jada Castro Provider Attestation: Provider Scribe Attestation: All medical record entries made by the Jada were at my direction and personally dictated by me. I have reviewed the chart and agree that the record accurately reflects my personal performance of the history, physical exam, medical decision making, and the department course for this patient. I have also personally directed, reviewed, and agree with the discharge instructions and disposition.
[2017-01-25 23:40] VITALS: RESP 18; O2SAT 97
[2017-01-26 04:08] VITALS: BP 113/67; PULSE 98; TEMP 97.4
== END 2017-01-26 05:00 | disposition home or self-care (01) ==
LOC: C.ER 20:18 → C.9OBSV 20:58
PROVIDERS: ADMIT Emergency Medicine; ATTEND Emergency Medicine
DX: F10.229 Alcohol dependence with intoxication, unspecified (principal); F41.8 Other specified anxiety disorders; I10 Essential (primary) hypertension; I25.10 Atherosclerotic heart disease of native coronary artery without angina pectoris; M06.9 Rheumatoid arthritis, unspecified
CPT/HCPCS: 82948; 99284; G0378

== ENCOUNTER 2017-01-26 19:52 | Observation (INO) | payer MEDICAID ==
[2017-01-26 19:53] VITALS: BMI 29.8
[2017-01-26 20:16] VITALS: TEMP 97.5
--- NOTE | 2017-01-26 20:44 | C.PDOC ---
History Of Present Illness The patient, a 56 y/o male, presents to the ED for evaluation of alcohol intoxication for an unknown duration. Patient is familiar to the ED and has had many prior visits concerning alcohol intoxication. Patient admits to drinking earlier today. He denies suicidal/homicidal ideation and has no physical complaints at this time. Chief Complaint (Nursing): Substance Abuse History Per: Patient History/Exam Limitations: intoxication Onset/Duration Of Symptoms: Unknown Current Symptoms Are (Timing): Still Present Suicide/Self Injury Attempted (Context): None Modifying Factor(s): Alcohol Associated Symptoms: denies: Suicidal Thoughts, Suicidal Plan Involuntary Hold By: None Recent travel outside of the [place]: No Additional History Per: Patient Past Medical History Reviewed: Historical Data, Nursing Documentation, Vital Signs Vital Signs: Last Vital Signs Temp 97.5 F L 01/26/17 20:13 Pulse 86 01/26/17 20:13 Resp 16 01/26/17 20:13 BP 122/76 01/26/17 20:13 Pulse Ox 97 01/26/17 20:53 - Medical History PMH: Anxiety, Arthritis, Bronchitis, CAD, Depression, 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), Fractures, Gastritis, Gall Bladder Disease (s/p cholecystectomy), HTN, Post Traumatic Stress Disorder, Chronic Kidney Disease, Rheumatoid Arthritis, Seizures, Chronic Pain Surgical History: Cholecystectomy - [facility] Procedures ALCOHOL DETOXIFICATION (07/04/15) APPLICATION OF SPLINT (03/20/13) CLOSURE SKIN & SUBCUTANEOUS NEC (08/14/13) DETOXIFICATION SERVICES FOR SUBSTANCE ABUSE TREATMENT (03/22/16) ESOPHAGOGASTRODUODENOSCOPY [EGD] W/CLOSED BIOPSY (02/16/15) OTHER GROUP THERAPY (03/12/13) PHYSICAL THERAPY NEC (07/04/15) TETANUS TOXOID ADMINIST (01/19/14) Family History: States: Unknown Family Hx - Social History Hx Tobacco Use: No Hx Alcohol Use: Yes Hx Substance Use: No - Immunization History Hx Tetanus Toxoid Vaccination: Yes Hx Influenza Vaccination: No Hx Pneumococcal Vaccination: No Review Of Systems Except As Marked, All Systems Reviewed And Found Negative. Constitutional: Positive for: Other (+ETOH intoxication ) Psych: Negative for: Suicidal ideation Physical Exam - Physical Exam Appears: No Acute Distress, Other (visibly intoxicated ) Skin: Normal Color, Warm, Dry Head: Atraumatic, Normacephalic Eye(s): bilateral: Normal Inspection, EOMI Oral Mucosa: Moist, Other (alcohol on breath ) Neck: Normal ROM, Supple Chest: Symmetrical, No Deformity, No Tenderness Cardiovascular: Rhythm Regular, No Murmur Respiratory: Normal Breath Sounds, No Rales, No Rhonchi, No Wheezing Back: Normal Inspection, No Vertebral Tenderness, No Paraspinal Tenderness Extremity: Normal ROM, Capillary Refill (less than 2 seconds ) Neurological/Psych: Other (arousable to touch and verbal stimuli ) Gait: Unsteady ED Course And Treatment O2 Sat by Pulse Oximetry: 97 (on RA) Pulse Ox Interpretation: Normal ED OBSERVATION Discharge: Yes Date of observation admission: 01/26/17 - Observation admission statement Patient is being placed in observation because:: acute alcohol intoxication - Goals of Observation Goals of observation are:: sobriety - Progress Note Progress Note: 01/26/17 20:53 Patient is resting comfortably, vital are stable. Disposition - Disposition Disposition: HOME/ ROUTINE Disposition Time: 06:00 Condition: IMPROVED - Clinical Impression Clinical Impression: Alcohol abuse
[2017-01-27 05:58] VITALS: BP 117/65; PULSE 79; RESP 17; O2SAT 98
== END 2017-01-27 05:42 | disposition home or self-care (01) ==
LOC: C.ER 19:52 → C.9OBSV 20:05
PROVIDERS: ADMIT Emergency Medicine; ATTEND Emergency Medicine
DX: F10.229 Alcohol dependence with intoxication, unspecified (principal); F43.10 Post-traumatic stress disorder, unspecified; I12.9 Hypertensive chronic kidney disease with stage 1 through stage 4 chronic kidney disease, or unspecified chronic kidney disease; N18.9 Chronic kidney disease, unspecified; G40.909 Epilepsy, unspecified, not intractable, without status epilepticus
CPT/HCPCS: 82948; 99283; G0378

== ENCOUNTER 2017-01-27 19:50 | Observation (INO) | payer MEDICAID ==
[2017-01-27 19:51] VITALS: BMI 29.8
[2017-01-27 20:31] VITALS: O2SAT 99
--- NOTE | 2017-01-27 21:05 | C.PDOC ---
History Of Present Illness The patient, a 56 y/o male, presents to the ED c/o right wrist pain that occurred prior to arrival and for evaluation of alcohol intoxication for an unknown duration. Patient is unaware of fall or injury to the hand or wrist. Patient is familiar to the ED and has had many prior visits concerning alcohol intoxication. Patient admits to drinking earlier today. He denies suicidal/ homicidal ideation and has no physical complaints at this time. Chief Complaint (Nursing): Substance Abuse History Per: Patient History/Exam Limitations: no limitations Onset/Duration Of Symptoms: Hrs Current Symptoms Are (Timing): Still Present Modifying Factor(s): Alcohol Severity: Mild Recent travel outside of the [place]: No Past Medical History Reviewed: Historical Data, Nursing Documentation, Vital Signs Vital Signs: Last Vital Signs Temp 97.9 F 01/28/17 00:07 Pulse 88 01/28/17 00:07 Resp 16 01/28/17 00:07 BP 129/77 01/28/17 00:07 Pulse Ox 99 01/28/17 00:07 - Medical History PMH: Anxiety, Arthritis, Bronchitis, CAD, Depression, 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 abstract writer, not aware), Fractures, Gastritis, Gall Bladder Disease (s/p cholecystectomy), HTN, Post Traumatic Stress Disorder, Chronic Kidney Disease, Rheumatoid Arthritis, Seizures, Chronic Pain Surgical History: Cholecystectomy - [facility] Procedures ALCOHOL DETOXIFICATION (07/04/15) APPLICATION OF SPLINT (03/20/13) CLOSURE SKIN & SUBCUTANEOUS NEC (08/14/13) DETOXIFICATION SERVICES FOR SUBSTANCE ABUSE TREATMENT (03/22/16) ESOPHAGOGASTRODUODENOSCOPY [EGD] W/CLOSED BIOPSY (02/16/15) OTHER GROUP THERAPY (03/12/13) PHYSICAL THERAPY NEC (07/04/15) TETANUS TOXOID ADMINIST (01/19/14) Family History: States: Unknown Family Hx - Social History Hx Tobacco Use: No Hx Alcohol Use: Yes Hx Substance Use: No - Immunization History Hx Tetanus Toxoid Vaccination: Yes Hx Influenza Vaccination: No Hx Pneumococcal Vaccination: No Review Of Systems Except As Marked, All Systems Reviewed And Found Negative. Constitutional: Positive for: Other (EtOH intoxicated) Musculoskeletal: Positive for: Hand Pain (Right wrist pain) Psych: Negative for: Suicidal ideation Physical Exam - Physical Exam Appears: Non-toxic, No Acute Distress, Other (+AOB. EtOH intoxicated) Skin: Warm, Dry Head: Atraumatic, Normacephalic Eye(s): bilateral: Normal Inspection Cardiovascular: Rhythm Regular, No Murmur Respiratory: Normal Breath Sounds, No Rales, No Rhonchi, No Wheezing Gastrointestinal/Abdominal: Soft, No Tenderness Neurological/Psych: Oriented x3, Normal Speech ED Course And Treatment O2 Sat by Pulse Oximetry: 99 (Room air) Pulse Ox Interpretation: Normal Medical Decision Making Medical Decision Making: Pt is admitted to ED Observation Plans: -X-Ray wrist -Reassess and disposition ED OBSERVATION Discharge: Yes Date of observation admission: 01/27/17 Time of observation admission: 21:10 - Observation admission statement Patient is being placed in observation because:: Alcohol intoxication - Goals of Observation Goals of observation are:: Alcohol detox Disposition - Disposition Disposition Time: 05:00 Condition: IMPROVED - Clinical Impression Clinical Impression: Alcohol intoxication - Scribe Statement The provider has reviewed the documentation as recorded by the Scribe Rhoda morillo All medical record entries made by the Scribe were at my direction and personally dictated by me. I have reviewed the chart and agree that the record accurately reflects my personal performance of the history, physical exam, medical decision making, and the department course for this patient. I have also personally directed, reviewed, and agree with the discharge instructions and disposition.
[2017-01-28 00:08] VITALS: BP 129/77; PULSE 88; RESP 16; TEMP 97.9
--- NOTE | 2017-01-28 10:53 | RAD ---
PROCEDURE: Right Wrist Radiographs. HISTORY: r/o fx COMPARISON: None. FINDINGS: BONES: No acute fracture. Radiographic findings adjacent to the distal radius and scaphoid likely the sequela of prior/ remote trauma. JOINTS: Normal. No dislocation. SOFT TISSUES: Normal. OTHER FINDINGS: None. IMPRESSION: No acute findings related to/accounting for the clinical presentation.
== END 2017-01-28 04:52 | disposition home or self-care (01) ==
LOC: C.ER 19:50 → C.9OBSV 20:33
PROVIDERS: ADMIT Emergency Medicine; ATTEND Emergency Medicine
DX: F10.129 Alcohol abuse with intoxication, unspecified (principal); I10 Essential (primary) hypertension; M06.9 Rheumatoid arthritis, unspecified
CPT/HCPCS: 73100; 82948; G0378

== ENCOUNTER 2017-01-29 21:47 | Observation (INO) | payer MEDICAID ==
[2017-01-29 21:48] VITALS: BMI 29.8
[2017-01-29 22:40] VITALS: RESP 20
--- NOTE | 2017-01-30 00:15 | C.PDOC ---
History Of Present Illness 56 year old male BIBA for alcohol intoxication. Patient has multiple prior visits to their ED for same. He denies physical complaints, and admits to drinking alcohol tdoay. Time Seen by Provider: 01/29/17 22:20 Chief Complaint (Nursing): Substance Abuse History Per: Patient History/Exam Limitations: intoxication Onset/Duration Of Symptoms: Persistent Current Symptoms Are (Timing): Still Present Modifying Factor(s): Alcohol Severity: Moderate Past Medical History Reviewed: Historical Data, Nursing Documentation, Vital Signs Vital Signs: Last Vital Signs Temp 98 F 01/30/17 06:58 Pulse 82 01/30/17 06:58 Resp 20 01/30/17 06:58 BP 130/76 01/30/17 06:58 Pulse Ox 95 02/07/17 18:48 - Medical History PMH: Anxiety, Arthritis, Bronchitis, CAD, Depression, 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 proposal writer, not aware), Fractures, Gastritis, Gall Bladder Disease (s/p cholecystectomy), HTN, Post Traumatic Stress Disorder, Chronic Kidney Disease, Rheumatoid Arthritis, Seizures, Chronic Pain Surgical History: Cholecystectomy - [facility] Procedures ALCOHOL DETOXIFICATION (07/04/15) APPLICATION OF SPLINT (03/20/13) CLOSURE SKIN & SUBCUTANEOUS NEC (08/14/13) DETOXIFICATION SERVICES FOR SUBSTANCE ABUSE TREATMENT (03/22/16) ESOPHAGOGASTRODUODENOSCOPY [EGD] W/CLOSED BIOPSY (02/16/15) OTHER GROUP THERAPY (03/12/13) PHYSICAL THERAPY NEC (07/04/15) TETANUS TOXOID ADMINIST (01/19/14) Family History: States: No Known Family Hx - Social History Hx Tobacco Use: No Hx Alcohol Use: Yes Hx Substance Use: No - Immunization History Hx Tetanus Toxoid Vaccination: Yes Hx Influenza Vaccination: No Hx Pneumococcal Vaccination: Yes Review Of Systems Except As Marked, All Systems Reviewed And Found Negative. Cardiovascular: Negative for: Chest Pain, Palpitations Respiratory: Negative for: Shortness of Breath Gastrointestinal: Negative for: Nausea, Vomiting, Abdominal Pain, Diarrhea Psych: Positive for: Other (ALCOHOL INTOXICATION) Physical Exam - Physical Exam Appears: Well, Non-toxic, Other (ETOH on breath) Skin: Normal Color, Warm Head: Atraumatic, Normacephalic Eye(s): bilateral: Normal Inspection Oral Mucosa: Moist Neck: Normal, Normal ROM, No Midline Cervical Tenderness, No Paracervical Tenderness, No Step Off Deformity, Supple Chest: Symmetrical Cardiovascular: Rhythm Regular Respiratory: Normal Breath Sounds, No Rales, No Rhonchi, No Wheezing Gastrointestinal/Abdominal: Normal Exam, Bowel Sounds, Soft, No Tenderness Extremity: Normal ROM, No Tenderness, No Deformity Neurological/Psych: Other (awake, alert, intoxicated, moving all 4 extremities spontaneously) ED Course And Treatment O2 Sat by Pulse Oximetry: 95 (Room air) Pulse Ox Interpretation: Normal Progress Note: Accucheck ordered and reviewed. Patient placed in ED observation pending sobriety. 2:50AM - Patient reassessed, is currently sleeping comfortably, easily arousable. Patient pending sobriety. Reevaluation Time: 06:05 Reassessment Condition: Improved (Patient reassessed, is currently AAOx3, ambulating normally in the ED. He is clinically sober at this time, will discharge.) Disposition Counseled Patient/Family Regarding: Diagnosis, Need For Followup - Disposition Disposition: HOME/ ROUTINE Disposition Time: 06:05 Condition: STABLE - POA Present On Arrival: None - Clinical Impression Clinical Impression: Alcohol intoxication - Scribe Statement The provider has reviewed the documentation as recorded by the Scribjosé miguel Ramirez All medical record entries made by the Rominaibjosé miguel were at my direction and personally dictated by me. I have reviewed the chart and agree that the record accurately reflects my personal performance of the history, physical exam, medical decision making, and the department course for this patient. I have also personally directed, reviewed, and agree with the discharge instructions and disposition.
[2017-01-30 06:59] VITALS: BP 130/76; PULSE 82; TEMP 98
[2017-02-07 18:02] VITALS: O2SAT 95
== END 2017-01-30 06:03 | disposition home or self-care (01) ==
LOC: C.ER 21:47 → C.9OBSV 22:28
PROVIDERS: ADMIT Emergency Medicine; ATTEND Emergency Medicine
DX: F10.120 Alcohol abuse with intoxication, uncomplicated (principal); I25.10 Atherosclerotic heart disease of native coronary artery without angina pectoris; E11.22 Type 2 diabetes mellitus with diabetic chronic kidney disease; I12.9 Hypertensive chronic kidney disease with stage 1 through stage 4 chronic kidney disease, or unspecified chronic kidney disease; N18.9 Chronic kidney disease, unspecified; M06.9 Rheumatoid arthritis, unspecified; R56.9 Unspecified convulsions; M19.90 Unspecified osteoarthritis, unspecified site; G89.29 Other chronic pain; F43.10 Post-traumatic stress disorder, unspecified; F32.9 Major depressive disorder, single episode, unspecified; F41.9 Anxiety disorder, unspecified; Z87.19 Personal history of other diseases of the digestive system; Z90.49 Acquired absence of other specified parts of digestive tract
CPT/HCPCS: 82948; G0378

== ENCOUNTER 2017-01-30 20:42 | Observation (INO) | payer MEDICAID ==
[2017-01-30 20:42] VITALS: BMI 29.8
--- NOTE | 2017-01-30 20:54 | C.PDOC ---
History Of Present Illness Patient presents to the ER for ETOH intoxication and looking for a place to spend the night. Has no physical complaints at this time. Time Seen by Provider: 01/30/17 20:51 Chief Complaint (Nursing): Substance Abuse History Per: Patient History/Exam Limitations: no limitations, intoxication Onset/Duration Of Symptoms: Hrs Current Symptoms Are (Timing): Still Present Modifying Factor(s): Alcohol Past Medical History Reviewed: Historical Data, Nursing Documentation, Vital Signs Vital Signs: Last Vital Signs Temp 98 F 01/31/17 03:23 Pulse 78 01/31/17 03:23 Resp 20 01/31/17 03:23 BP 128/76 01/31/17 03:23 Pulse Ox 97 01/31/17 03:23 - Medical History PMH: Anxiety, Arthritis, Bronchitis, CAD, Depression, 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 report writer, not aware), Fractures, Gastritis, Gall Bladder Disease (s/p cholecystectomy), HTN, Post Traumatic Stress Disorder, Chronic Kidney Disease, Rheumatoid Arthritis, Seizures, Chronic Pain Surgical History: Cholecystectomy - [facility] Procedures ALCOHOL DETOXIFICATION (07/04/15) APPLICATION OF SPLINT (03/20/13) CLOSURE SKIN & SUBCUTANEOUS NEC (08/14/13) DETOXIFICATION SERVICES FOR SUBSTANCE ABUSE TREATMENT (03/22/16) ESOPHAGOGASTRODUODENOSCOPY [EGD] W/CLOSED BIOPSY (02/16/15) OTHER GROUP THERAPY (03/12/13) PHYSICAL THERAPY NEC (07/04/15) TETANUS TOXOID ADMINIST (01/19/14) Family History: States: Unknown Family Hx - Social History Hx Tobacco Use: No Hx Alcohol Use: Yes Hx Substance Use: No - Immunization History Hx Tetanus Toxoid Vaccination: Yes Hx Influenza Vaccination: No Hx Pneumococcal Vaccination: Yes Review Of Systems Constitutional: Negative for: Fever, Chills Cardiovascular: Negative for: Chest Pain, Palpitations Respiratory: Negative for: Cough, Shortness of Breath Gastrointestinal: Negative for: Nausea, Vomiting, Abdominal Pain, Diarrhea Physical Exam - Physical Exam Appears: Non-toxic, Other (ETOH on breath) Skin: Warm, Dry Oral Mucosa: Moist Chest: Symmetrical Cardiovascular: Rhythm Regular Respiratory: No Rales, No Rhonchi, No Wheezing Gastrointestinal/Abdominal: Soft, No Tenderness Neurological/Psych: Oriented x3 ED Course And Treatment O2 Sat by Pulse Oximetry: 98 (Room air) Pulse Ox Interpretation: Normal Reevaluation Time: 04:09 Reassessment Condition: Improved ED OBSERVATION Discharge: Yes Date of observation admission: 01/30/17 Time of observation admission: 20:54 - Observation admission statement Patient is being placed in observation because:: acute alcohol intoxication - Goals of Observation Goals of observation are:: sobriety - Progress Note Progress Note: 01/30/17 20:54 vitals stable 01/30/17 22:54 arousable 01/31/17 00:54 no complaints 01/31/17 02:55 vitals stable 01/31/17 04:09 ambulating without difficulty Disposition Counseled Patient/Family Regarding: Studies Performed, Diagnosis, Need For Followup - Disposition Disposition: HOME/ ROUTINE Disposition Time: 20:51 Condition: FAIR - Clinical Impression Clinical Impression: Alcoholic intoxication, Alcoholism /alcohol abuse - Scribe Statement The provider has reviewed the documentation as recorded by the Scribe Fabián Ramirez All medical record entries made by the Rominaibe were at my direction and personally dictated by me. I have reviewed the chart and agree that the record accurately reflects my personal performance of the history, physical exam, medical decision making, and the department course for this patient. I have also personally directed, reviewed, and agree with the discharge instructions and disposition.
[2017-01-31 03:26] VITALS: BP 128/76; PULSE 78; RESP 20; TEMP 98
[2017-01-31 04:10] VITALS: O2SAT 98
== END 2017-01-31 04:10 | disposition home or self-care (01) ==
LOC: C.ER 20:42 → C.9OBSV 20:52
PROVIDERS: ADMIT Emergency Medicine; ATTEND Emergency Medicine
DX: F10.220 Alcohol dependence with intoxication, uncomplicated (principal); Y90.9 Presence of alcohol in blood, level not specified
CPT/HCPCS: 82948; G0378

== ENCOUNTER 2017-01-31 20:12 | Observation (INO) | payer MEDICAID ==
[2017-01-31 20:12] VITALS: BMI 29.8
[2017-01-31 20:51] VITALS: TEMP 98.2
--- NOTE | 2017-01-31 21:01 | C.PDOC ---
History Of Present Illness Patient presents to the emergency room with ETOH intoxication. Patient is well known to the ED with multiple prior visits for ETOH intoxication. Patient denies fever, chills, nausea, vomiting, diarrhea, or any complaints. Time Seen by Provider: 01/31/17 20:58 Chief Complaint (Nursing): Substance Abuse History Per: Patient History/Exam Limitations: no limitations Onset/Duration Of Symptoms: Hrs Current Symptoms Are (Timing): Still Present Suicide/Self Injury Attempted (Context): None Modifying Factor(s): Alcohol Severity: None Associated Symptoms: denies: Suicidal Thoughts, Suicidal Plan Recent travel outside of the [place]: No Past Medical History Reviewed: Historical Data, Nursing Documentation, Vital Signs Vital Signs: Last Vital Signs Temp 98.2 F 01/31/17 22:16 Pulse 82 02/01/17 01:11 Resp 18 02/01/17 01:11 BP 134/86 02/01/17 01:11 Pulse Ox 97 02/01/17 01:11 - Medical History PMH: Anxiety, Arthritis, Bronchitis, CAD, Depression, 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 credit underwriter, not aware), Fractures, Gastritis, Gall Bladder Disease (s/p cholecystectomy), HTN, Post Traumatic Stress Disorder, Chronic Kidney Disease, Rheumatoid Arthritis, Seizures, Chronic Pain Surgical History: Cholecystectomy - [facility] Procedures ALCOHOL DETOXIFICATION (07/04/15) APPLICATION OF SPLINT (03/20/13) CLOSURE SKIN & SUBCUTANEOUS NEC (08/14/13) DETOXIFICATION SERVICES FOR SUBSTANCE ABUSE TREATMENT (03/22/16) ESOPHAGOGASTRODUODENOSCOPY [EGD] W/CLOSED BIOPSY (02/16/15) OTHER GROUP THERAPY (03/12/13) PHYSICAL THERAPY NEC (07/04/15) TETANUS TOXOID ADMINIST (01/19/14) Family History: States: Unknown Family Hx - Social History Hx Tobacco Use: No Hx Alcohol Use: Yes Hx Substance Use: No - Immunization History Hx Tetanus Toxoid Vaccination: Yes Hx Influenza Vaccination: No Hx Pneumococcal Vaccination: Yes Review Of Systems Constitutional: Positive for: Other (ETOH intoxication). Negative for: Fever, Chills Gastrointestinal: Negative for: Nausea, Vomiting, Diarrhea Physical Exam - Physical Exam Appears: Non-toxic Skin: Warm, Dry Extremity: Normal ROM, No Tenderness Neurological/Psych: Oriented x3, Normal Speech ED Course And Treatment O2 Sat by Pulse Oximetry: 96 Pulse Ox Interpretation: Normal Reevaluation Time: 04:42 Reassessment Condition: Improved ED OBSERVATION Discharge: Yes Date of observation admission: 01/31/17 Time of observation admission: 21:00 - Observation admission statement Patient is being placed in observation because:: acute alcohol intoxication - Goals of Observation Goals of observation are:: sobriety - Progress Note Progress Note: 01/31/17 21:00 vitals stable, no complaints 01/31/17 23:01 vitals stable Disposition Counseled Patient/Family Regarding: Studies Performed, Diagnosis, Need For Followup - Disposition Disposition: HOME/ ROUTINE Disposition Time: 20:59 Condition: FAIR - Clinical Impression Clinical Impression: Alcohol abuse with intoxication - Scribe Statement The provider has reviewed the documentation as recorded by the Rominaibjosé miguel Orozco All medical record entries made by the Rominaibjosé miguel were at my direction and personally dictated by me. I have reviewed the chart and agree that the record accurately reflects my personal performance of the history, physical exam, medical decision making, and the department course for this patient. I have also personally directed, reviewed, and agree with the discharge instructions and disposition. Decision To Admit - . Patient Diagnosis: Alcohol abuse with intoxication
[2017-01-31 22:17] VITALS: RESP 18
[2017-02-01 04:59] VITALS: BP 140/82; PULSE 80; O2SAT 98
== END 2017-02-01 04:43 | disposition home or self-care (01) ==
LOC: C.ER 20:12 → C.9OBSV 21:01
PROVIDERS: ADMIT Emergency Medicine; ATTEND Emergency Medicine
DX: F10.129 Alcohol abuse with intoxication, unspecified (principal); I25.10 Atherosclerotic heart disease of native coronary artery without angina pectoris; M19.90 Unspecified osteoarthritis, unspecified site; F32.9 Major depressive disorder, single episode, unspecified; F41.9 Anxiety disorder, unspecified; F43.10 Post-traumatic stress disorder, unspecified; E11.22 Type 2 diabetes mellitus with diabetic chronic kidney disease; I12.9 Hypertensive chronic kidney disease with stage 1 through stage 4 chronic kidney disease, or unspecified chronic kidney disease; N18.9 Chronic kidney disease, unspecified; M06.9 Rheumatoid arthritis, unspecified
CPT/HCPCS: 82948; 99285; G0378

== ENCOUNTER 2017-02-01 18:34 | Observation (INO) | payer MEDICAID ==
[2017-02-01 18:35] VITALS: BMI 29.8
--- NOTE | 2017-02-01 19:25 | C.PDOC ---
History Of Present Illness 56 y/o M well known to this ER for alcohol intoxication p/w chest pain. He states it began yesterday. Appears intoxicated, full ROS unobtainable. Time Seen by Provider: 02/01/17 19:19 Chief Complaint (Nursing): Chest Pain Past Medical History Vital Signs: Last Vital Signs Temp 98.1 F 02/01/17 18:40 Pulse 84 02/02/17 02:58 Resp 14 02/02/17 02:58 BP 134/87 02/02/17 02:58 Pulse Ox 98 02/02/17 02:58 - Medical History PMH: Anxiety, Arthritis, Bronchitis, CAD, Depression, 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 instructional writer, not aware), Fractures, Gastritis, Gall Bladder Disease (s/p cholecystectomy), HTN, Post Traumatic Stress Disorder, Chronic Kidney Disease, Rheumatoid Arthritis, Seizures, Chronic Pain Surgical History: Cholecystectomy - [facility] Procedures ALCOHOL DETOXIFICATION (07/04/15) APPLICATION OF SPLINT (03/20/13) CLOSURE SKIN & SUBCUTANEOUS NEC (08/14/13) DETOXIFICATION SERVICES FOR SUBSTANCE ABUSE TREATMENT (03/22/16) ESOPHAGOGASTRODUODENOSCOPY [EGD] W/CLOSED BIOPSY (02/16/15) OTHER GROUP THERAPY (03/12/13) PHYSICAL THERAPY NEC (07/04/15) TETANUS TOXOID ADMINIST (01/19/14) Family History: States: Unknown Family Hx - Social History Hx Tobacco Use: No Hx Alcohol Use: Yes Hx Substance Use: No - Immunization History Hx Tetanus Toxoid Vaccination: Yes Hx Influenza Vaccination: No Hx Pneumococcal Vaccination: Yes Review Of Systems Review Of Systems: ROS cannot be obtained secondary to pt's inabilty to answer questions. Physical Exam - Physical Exam Additional Physical Exam Comments: Constitutional: No acute distress. Intoxicated. Head: Normocephalic. Atraumatic. Eyes: PERRL. ENT: Moist mucous membranes. Neck: Supple. Cardiovascular: Regular rate. Chest: L sided chest pain reproducible in focal area. Respiratory: Clear to auscultation bilaterally. GI: Soft. Nontender. Nondistended. Back: No CVA tenderness. Musculoskeletal: No tenderness or swelling of extremities. Skin: No rash. Neurologic: Alert, no focal deficit. ED Course And Treatment O2 Sat by Pulse Oximetry: 95 Medical Decision Making Medical Decision Making: EKG NSR 85 bpm, no ST elevations, normal intervals. Will rule out with 1 set cardiac enzymes for this pain since yesterday in this patient who typically does not complain of chest pain. ED OBSERVATION Discharge: Yes Date of observation admission: 02/01/17 Time of observation admission: 19:25 - Observation admission statement Patient is being placed in observation because:: alcohol intoxication - Progress Note Progress Note: 2124 In no distress. 2300 In no distress. 0100 Sleeping. 0300 Sleeping. 0500 Awake, steady gait. Disposition - Disposition Disposition: HOME/ ROUTINE Disposition Time: 05:16 Condition: STABLE - Clinical Impression Clinical Impression: Alcoholic intoxication, Chest pain - Scribe Statement The provider has reviewed the documentation as recorded by the Scribe Grey Orozco All medical record entries made by the Jada were at my direction and personally dictated by me. I have reviewed the chart and agree that the record accurately reflects my personal performance of the history, physical exam, medical decision making, and the department course for this patient. I have also personally directed, reviewed, and agree with the discharge instructions and disposition.
[2017-02-02 05:21] VITALS: BP 136/80; PULSE 82; RESP 16; TEMP 97.9; O2SAT 99
== END 2017-02-02 05:18 | disposition home or self-care (01) ==
LOC: C.ER 18:34 → C.9OBSV 19:25
PROVIDERS: ADMIT Student in an Organized Health Care Education/Training Program; ATTEND Student in an Organized Health Care Education/Training Program
DX: F10.129 Alcohol abuse with intoxication, unspecified (principal); R07.9 Chest pain, unspecified
CPT/HCPCS: 36415; 84484; 99285; G0378

== ENCOUNTER 2017-02-02 18:47 | Observation (INO) | payer MEDICAID ==
[2017-02-02 18:47] VITALS: BMI 29.8
--- NOTE | 2017-02-02 19:49 | C.PDOC ---
History Of Present Illness Patient is a 56 year old male who presents to the ER intoxicated and looking for a place to spend the night. Denies any physical complaints at this time. Time Seen by Provider: 02/02/17 19:27 Chief Complaint (Nursing): Substance Abuse History Per: Patient History/Exam Limitations: no limitations, intoxication Onset/Duration Of Symptoms: Hrs Current Symptoms Are (Timing): Still Present Modifying Factor(s): Alcohol Past Medical History Reviewed: Historical Data, Nursing Documentation, Vital Signs Vital Signs: Last Vital Signs Temp 96.4 F L 02/03/17 00:47 Pulse 76 02/03/17 00:47 Resp 20 02/03/17 00:47 BP 148/74 02/03/17 00:47 Pulse Ox 98 02/03/17 00:47 - Medical History PMH: Anxiety, Arthritis, Bronchitis, CAD, Depression, 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 commercial lines underwriter, not aware), Fractures, Gastritis, Gall Bladder Disease (s/p cholecystectomy), HTN, Post Traumatic Stress Disorder, Chronic Kidney Disease, Rheumatoid Arthritis, Seizures, Chronic Pain Surgical History: Cholecystectomy - [facility] Procedures ALCOHOL DETOXIFICATION (07/04/15) APPLICATION OF SPLINT (03/20/13) CLOSURE SKIN & SUBCUTANEOUS NEC (08/14/13) DETOXIFICATION SERVICES FOR SUBSTANCE ABUSE TREATMENT (03/22/16) ESOPHAGOGASTRODUODENOSCOPY [EGD] W/CLOSED BIOPSY (02/16/15) OTHER GROUP THERAPY (03/12/13) PHYSICAL THERAPY NEC (07/04/15) TETANUS TOXOID ADMINIST (01/19/14) Family History: States: Unknown Family Hx - Social History Hx Tobacco Use: No Hx Alcohol Use: Yes Hx Substance Use: No - Immunization History Hx Tetanus Toxoid Vaccination: Yes Hx Influenza Vaccination: No Hx Pneumococcal Vaccination: Yes Review Of Systems Constitutional: Negative for: Fever, Chills Cardiovascular: Negative for: Palpitations Respiratory: Negative for: Cough, Shortness of Breath Gastrointestinal: Negative for: Nausea, Vomiting Physical Exam - Physical Exam Additional Physical Exam Comments: Constitutional: No acute distress, ETOH on breath. Head: Normocephalic. Atraumatic. Eyes: PERRL. ENT: Moist mucous membranes. Neck: Supple. Cardiovascular: Regular rate. Radial pulses 2+ bilaterally. Chest: No tenderness. Respiratory: Clear to auscultation bilaterally. GI: Soft. No tenderness. Nondistended. Back: No tenderness. Musculoskeletal: No tenderness or swelling of extremities. Skin: No rash. Neurologic: Alert, no focal deficit. ED Course And Treatment O2 Sat by Pulse Oximetry: 99 ED OBSERVATION Discharge: Yes Date of observation admission: 02/02/17 Time of observation admission: 19:48 - Observation admission statement Patient is being placed in observation because:: Acute ETOH intoxication - Goals of Observation Goals of observation are:: Sobriety - Progress Note Progress Note: 2100 Sleeping. 2300 Sleeping. 0100 Sleeping. 0300 Sleeping. 0500 Awake, steady gait. Disposition - Disposition Disposition: HOME/ ROUTINE Disposition Time: 05:00 Condition: STABLE - Clinical Impression Clinical Impression: Alcoholic intoxication - Scribe Statement The provider has reviewed the documentation as recorded by the Scribjosé miguel Ramirez All medical record entries made by the Rominaibjosé miguel were at my direction and personally dictated by me. I have reviewed the chart and agree that the record accurately reflects my personal performance of the history, physical exam, medical decision making, and the department course for this patient. I have also personally directed, reviewed, and agree with the discharge instructions and disposition.
[2017-02-03 05:01] VITALS: O2SAT 99
[2017-02-03 05:38] VITALS: BP 140/78; PULSE 72; RESP 18; TEMP 98.2
== END 2017-02-03 05:01 | disposition home or self-care (01) ==
LOC: C.ER 18:47 → C.9OBSV 19:48
PROVIDERS: ADMIT Student in an Organized Health Care Education/Training Program; ATTEND Student in an Organized Health Care Education/Training Program
DX: F10.129 Alcohol abuse with intoxication, unspecified (principal); I25.10 Atherosclerotic heart disease of native coronary artery without angina pectoris; E11.9 Type 2 diabetes mellitus without complications; M19.90 Unspecified osteoarthritis, unspecified site; F32.9 Major depressive disorder, single episode, unspecified; F41.9 Anxiety disorder, unspecified; I12.9 Hypertensive chronic kidney disease with stage 1 through stage 4 chronic kidney disease, or unspecified chronic kidney disease; N18.9 Chronic kidney disease, unspecified; F43.10 Post-traumatic stress disorder, unspecified; M06.9 Rheumatoid arthritis, unspecified
CPT/HCPCS: G0378 ×2

== ENCOUNTER 2017-02-04 20:47 | Observation (INO) | payer MEDICAID ==
[2017-02-04 20:47] VITALS: BMI 29.8
[2017-02-04 21:44] VITALS: TEMP 98
--- NOTE | 2017-02-04 21:53 | C.PDOC ---
History Of Present Illness Patient presents to the ED for acute alcohol intoxication. Patient is well known in the ED for this. He admits to drinking alcohol prior to arrival. Patient denies any chest pain, shortness of breath, suicidal/homidical ideation , or any other complaints at this time. Time Seen by Provider: 02/04/17 21:52 Chief Complaint (Nursing): Substance Abuse History Per: Patient History/Exam Limitations: intoxication Onset/Duration Of Symptoms: Other Suicide/Self Injury Attempted (Context): None Modifying Factor(s): Alcohol Severity: None Pain Scale Rating Of: 0 Associated Symptoms: Other Involuntary Hold By: None Recent travel outside of the [place]: No Additional History Per: Prior Records Past Medical History Reviewed: Historical Data, Nursing Documentation, Vital Signs Vital Signs: Last Vital Signs Temp 98.0 F 02/04/17 21:40 Pulse 102 H 02/04/17 21:40 Resp 18 02/04/17 21:40 BP 114/78 02/04/17 21:40 Pulse Ox 98 02/04/17 22:00 - Medical History PMH: Anxiety, Arthritis, Bronchitis, CAD, Depression, 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 video games storywriter, not aware), Fractures, Gastritis, Gall Bladder Disease (s/p cholecystectomy), HTN, Post Traumatic Stress Disorder, Chronic Kidney Disease, Rheumatoid Arthritis, Seizures, Chronic Pain Surgical History: Cholecystectomy - [facility] Procedures ALCOHOL DETOXIFICATION (07/04/15) APPLICATION OF SPLINT (03/20/13) CLOSURE SKIN & SUBCUTANEOUS NEC (08/14/13) DETOXIFICATION SERVICES FOR SUBSTANCE ABUSE TREATMENT (03/22/16) ESOPHAGOGASTRODUODENOSCOPY [EGD] W/CLOSED BIOPSY (02/16/15) OTHER GROUP THERAPY (03/12/13) PHYSICAL THERAPY NEC (07/04/15) TETANUS TOXOID ADMINIST (01/19/14) Family History: States: Unknown Family Hx - Social History Hx Tobacco Use: No Hx Alcohol Use: Yes Hx Substance Use: No - Immunization History Hx Tetanus Toxoid Vaccination: Yes Hx Influenza Vaccination: No Hx Pneumococcal Vaccination: Yes Review Of Systems Cardiovascular: Negative for: Chest Pain Respiratory: Negative for: Shortness of Breath Psych: Negative for: Suicidal ideation Physical Exam - Physical Exam Appears: Non-toxic, No Acute Distress, Other (intoxicated) Skin: Warm, Dry Head: Atraumatic, Normacephalic Neck: Supple Chest: Symmetrical Cardiovascular: Rhythm Regular Respiratory: No Rales, No Rhonchi, No Wheezing Back: Normal Inspection Extremity: Bilateral: Atraumatic Neurological/Psych: Oriented x3 Gait: Unsteady ED Course And Treatment O2 Sat by Pulse Oximetry: 98 (RA) Pulse Ox Interpretation: Normal Reevaluation Time: 04:47 Reassessment Condition: Improved ED OBSERVATION Discharge: Yes Disposition Counseled Patient/Family Regarding: Studies Performed, Diagnosis, Need For Followup - Disposition Disposition: HOME/ ROUTINE Disposition Time: 21:52 Condition: FAIR - Clinical Impression Clinical Impression: Alcohol intoxication - Scribe Statement The provider has reviewed the documentation as recorded by the Scribe Bing Fajardo Provider Attestation: All medical record entries made by the Scribe were at my direction and personally dictated by me. I have reviewed the chart and agree that the record accurately reflects my personal performance of the history, physical exam, medical decision making, and the department course for this patient. I have also personally directed, reviewed, and agree with the discharge instructions and disposition.
[2017-02-05 05:28] VITALS: BP 114/74; PULSE 99; RESP 20; O2SAT 99
== END 2017-02-05 04:49 | disposition home or self-care (01) ==
LOC: C.ER 20:47 → C.9OBSV 21:53
PROVIDERS: ADMIT Emergency Medicine; ATTEND Emergency Medicine
DX: F10.120 Alcohol abuse with intoxication, uncomplicated (principal); Y90.9 Presence of alcohol in blood, level not specified
CPT/HCPCS: G0378 ×2

== ENCOUNTER 2017-02-05 18:12 | Observation (INO) | payer MEDICAID ==
[2017-02-05 18:12] VITALS: BMI 29.8
[2017-02-05 18:33] VITALS: RESP 18
[2017-02-05] MEDS ORDERED: Sodium Chloride 0.9% 1,000 ML IV ONE (19:20)
[2017-02-05] MEDS ORDERED: Sodium Chloride 0.9% 1,000 ML ONE (20:06)
[2017-02-05 20:11] LABS: EOS # 0.3 K/uL (0.0-0.7); LYMPH # 1.4 K/uL (1.0-4.3); MEAN CORPUSCULAR HEMOGLOBIN 35.5 pg (27.0-31.0); MONO # 0.5 K/uL (0.0-0.8)
[2017-02-05 20:17] LABS: EOS % 7.1 % (0.0-4.0); HEMATOCRIT 33.2 % (35.0-51.0); LYMPH % 36.6 % (20.0-40.0); MEAN CELL VOLUME 104.3 fL (80.0-94.0); MEAN CORPUSCULAR HGB CONC 34.1 g/dL (33.0-37.0); MEAN PLATELET VOLUME 8.9 fL (7.2-11.7); MONO % 11.9 % (0.0-10.0); NRBC % 0.3 % (0.0-2.0); RED CELL DISTRIBUTION WIDTH 13.7 % (11.5-14.5); WHITE BLOOD COUNT 3.8 K/uL (4.8-10.8)
[2017-02-05 20:18] LABS: CHLORIDE 106 mmol/L (98-107)
[2017-02-05 20:19] LABS: POTASSIUM 4.2 mmol/L (3.6-5.2); SODIUM 147 mmol/L (132-148)
[2017-02-05 20:21] LABS: ALKALINE PHOSPHATASE 92 U/L (38-126); AST/SGOT 101 U/L (17-59); BILIRUBIN,TOTAL 1.1 mg/dL (0.2-1.3); BLOOD UREA NITROGEN 9 mg/dL (9-20); CARBON DIOXIDE 23 mmol/L (22-30); GFR AFRICAN-AMERICAN > 60; TOTAL PROTEIN 8.3 g/dL (6.3-8.3)
[2017-02-05 20:22] LABS: CALCIUM 8.4 mg/dl (8.6-10.4); GLUCOSE,RANDOM 97 mg/dL (75-110)
[2017-02-05 20:26] LABS: ALT/SGPT < 6 U/L (21-72)
[2017-02-05 20:38] LABS: ALCOHOL SERUM 323 mg/dl (0-10)
[2017-02-05] MEDS ORDERED: Multivitamin With Minerals Tab PO STA (20:43)
--- NOTE | 2017-02-05 21:35 | C.PDOC ---
Time Seen by Provider: 02/05/17 19:12 Chief Complaint (Nursing): Abdominal Pain History Per: Patient History/Exam Limitations: intoxication Onset/Duration Of Symptoms: Unknown Current Symptoms Are (Timing): Still Present Context: Other (Alcohol abuse) Severity: Moderate Quality Of Discomfort: Unable To Describe, "Pain" Additional History Per: Prior Records Past Medical History Reviewed: Historical Data, Nursing Documentation, Vital Signs Vital Signs: Last Vital Signs Temp 97.6 F 02/06/17 04:09 Pulse 82 02/06/17 04:09 Resp 18 02/06/17 04:09 BP 150/83 02/06/17 04:09 Pulse Ox 98 02/06/17 04:09 - Medical History PMH: Anxiety, Arthritis, Bronchitis, CAD, Depression, 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 story writer, not aware), Fractures, Gastritis, Gall Bladder Disease (s/p cholecystectomy), HTN, Post Traumatic Stress Disorder, Chronic Kidney Disease, Rheumatoid Arthritis, Seizures, Chronic Pain Other PMH: Alcohol abuse Surgical History: Cholecystectomy - [facility] Procedures ALCOHOL DETOXIFICATION (07/04/15) APPLICATION OF SPLINT (03/20/13) CLOSURE SKIN & SUBCUTANEOUS NEC (08/14/13) DETOXIFICATION SERVICES FOR SUBSTANCE ABUSE TREATMENT (03/22/16) ESOPHAGOGASTRODUODENOSCOPY [EGD] W/CLOSED BIOPSY (02/16/15) OTHER GROUP THERAPY (03/12/13) PHYSICAL THERAPY NEC (07/04/15) TETANUS TOXOID ADMINIST (01/19/14) Family History: States: Unknown Family Hx - Social History Hx Tobacco Use: No Hx Alcohol Use: Yes Hx Substance Use: No - Immunization History Hx Tetanus Toxoid Vaccination: Yes Hx Influenza Vaccination: No Hx Pneumococcal Vaccination: Yes Review Of Systems Review Of Systems: ROS cannot be obtained secondary to pt's inabilty to answer questions. Physical Exam - Physical Exam Appears: No Acute Distress, Unkempt, Other (AOB) Skin: Warm, Dry Head: Atraumatic Eye(s): bilateral: PERRL Neck: Normal ROM, No Midline Cervical Tenderness, No Step Off Deformity, Supple Chest: Symmetrical, No Deformity Cardiovascular: Rhythm Regular Respiratory: Normal Breath Sounds, No Accessory Muscle Use Gastrointestinal/Abdominal: Soft Extremity: Normal ROM, No Deformity Neurological/Psych: Other (Moving all extremties) Gait: Unable To Assess ED Course And Treatment - Laboratory Results Result Diagrams: 02/05/17 20:05 02/05/17 20:05 O2 Sat by Pulse Oximetry: 97 Pulse Ox Interpretation: Normal Reassessment Condition: Improved ED OBSERVATION Discharge: Yes Date of observation admission: 02/05/17 Time of observation admission: 19:30 - Observation admission statement Patient is being placed in observation because:: Alcohol intoxication. Abdominal pain. - Goals of Observation Goals of observation are:: Sobriety. Reassessment of pain. - Progress Note Progress Note: Pt was checked every 2 hours and remained stable throughout ED stay. Pt is now clinically sober. AAOx3. Steady gait. He states that his abdominal pain is gone and wants to leave now. Disposition Counseled Patient/Family Regarding: Studies Performed, Diagnosis, Need For Followup, Rx Given - Disposition Disposition: HOME/ ROUTINE Disposition Time: 04:52 Condition: IMPROVED - Clinical Impression Clinical Impression: Abdominal pain, Alcoholism /alcohol abuse
[2017-02-06 04:09] VITALS: BP 150/83; PULSE 82; TEMP 97.6
[2017-02-06 04:53] VITALS: O2SAT 97
== END 2017-02-06 04:54 | disposition home or self-care (01) ==
LOC: C.ER 18:12 → C.9OBSV 21:35
PROVIDERS: ADMIT Emergency Medicine; ATTEND Emergency Medicine
DX: F10.220 Alcohol dependence with intoxication, uncomplicated (principal); Y90.8 Blood alcohol level of 240 mg/100 ml or more; R10.9 Unspecified abdominal pain
CPT/HCPCS: 80053; 80320; 83690; 83735; 85025; G0378

== ENCOUNTER 2017-02-06 19:28 | Observation (INO) | payer MEDICAID ==
[2017-02-06 19:28] VITALS: BMI 29.8
--- NOTE | 2017-02-06 20:30 | C.PDOC ---
History Of Present Illness Pt states that he is drunk. Time Seen by Provider: 02/06/17 20:02 Chief Complaint (Nursing): Substance Abuse History Per: Patient History/Exam Limitations: intoxication Onset/Duration Of Symptoms: Unknown (today) Current Symptoms Are (Timing): Still Present Suicide/Self Injury Attempted (Context): None Modifying Factor(s): Alcohol Severity: Moderate Associated Symptoms: denies: Suicidal Thoughts, Suicidal Plan Additional History Per: Prior Records Past Medical History Reviewed: Historical Data, Nursing Documentation, Vital Signs Vital Signs: Last Vital Signs Temp 98.1 F 02/06/17 19:48 Pulse 85 02/06/17 19:48 Resp 20 02/06/17 19:48 BP 144/86 02/06/17 19:48 Pulse Ox 96 02/06/17 20:30 - Medical History PMH: Anxiety, Arthritis, Bronchitis, CAD, Depression, 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 scientific technical writer, not aware), Fractures, Gastritis, Gall Bladder Disease (s/p cholecystectomy), HTN, Post Traumatic Stress Disorder, Chronic Kidney Disease, Rheumatoid Arthritis, Seizures, Chronic Pain Other PMH: Alcohol abuse Surgical History: Cholecystectomy - [facility] Procedures ALCOHOL DETOXIFICATION (07/04/15) APPLICATION OF SPLINT (03/20/13) CLOSURE SKIN & SUBCUTANEOUS NEC (08/14/13) DETOXIFICATION SERVICES FOR SUBSTANCE ABUSE TREATMENT (03/22/16) ESOPHAGOGASTRODUODENOSCOPY [EGD] W/CLOSED BIOPSY (02/16/15) OTHER GROUP THERAPY (03/12/13) PHYSICAL THERAPY NEC (07/04/15) TETANUS TOXOID ADMINIST (01/19/14) Family History: States: Unknown Family Hx - Social History Hx Tobacco Use: No Hx Alcohol Use: Yes Hx Substance Use: No - Immunization History Hx Tetanus Toxoid Vaccination: Yes Hx Influenza Vaccination: No Hx Pneumococcal Vaccination: Yes Review Of Systems Review Of Systems: ROS cannot be obtained secondary to pt's inabilty to answer questions. Physical Exam - Physical Exam Appears: No Acute Distress, Unkempt, Other (AOB, intoxicated) Skin: Normal Color, Warm, Dry Head: Atraumatic Eye(s): bilateral: PERRL Neck: Normal ROM, No Midline Cervical Tenderness, No Step Off Deformity, Supple Cardiovascular: Rhythm Regular Respiratory: Normal Breath Sounds, No Accessory Muscle Use Gastrointestinal/Abdominal: Soft Extremity: Normal ROM, No Deformity Neurological/Psych: Slow To Respond With Command, Other (Moving all extremities) Gait: Unable To Assess ED Course And Treatment O2 Sat by Pulse Oximetry: 96 Pulse Ox Interpretation: Normal Reassessment Condition: Improved ED OBSERVATION Discharge: Yes Date of observation admission: 02/06/17 Time of observation admission: 20:30 - Observation admission statement Patient is being placed in observation because:: Alcohol intoxication. - Goals of Observation Goals of observation are:: Sobriety. - Progress Note Progress Note: 02/07/17 04:33 Pt was checked every 2 hours and remained stable throughout ED stay. Pt is now AAOx3. Steady gait. He wants to leave right now. Disposition Counseled Patient/Family Regarding: Diagnosis, Need For Followup - Disposition Disposition: HOME/ ROUTINE Disposition Time: 04:34 Condition: IMPROVED - Clinical Impression Clinical Impression: Alcoholism /alcohol abuse
[2017-02-07 06:01] VITALS: BP 130/70; PULSE 80; RESP 14; TEMP 97; O2SAT 97
== END 2017-02-07 04:35 | disposition home or self-care (01) ==
LOC: C.ER 19:28 → C.9OBSV 20:30
PROVIDERS: ADMIT Emergency Medicine; ATTEND Emergency Medicine
DX: F10.220 Alcohol dependence with intoxication, uncomplicated (principal); Y90.9 Presence of alcohol in blood, level not specified
CPT/HCPCS: 82948; G0378

== ENCOUNTER 2017-02-08 21:20 | Observation (INO) | payer MEDICAID ==
[2017-02-08 21:20] VITALS: BMI 29.8
--- NOTE | 2017-02-08 22:11 | C.PDOC ---
History Of Present Illness Patient presents to the ED inebriated and seeking a place to sleep. Patient denies any complaints at this time. Time Seen by Provider: 02/08/17 22:08 Chief Complaint (Nursing): Substance Abuse History Per: Patient History/Exam Limitations: no limitations Onset/Duration Of Symptoms: Hrs Current Symptoms Are (Timing): Still Present Involuntary Hold By: None Recent travel outside of the [place]: No Past Medical History Reviewed: Historical Data, Nursing Documentation, Vital Signs Vital Signs: Last Vital Signs Temp 98.4 F 02/09/17 05:05 Pulse 94 H 02/09/17 05:05 Resp 16 02/09/17 05:05 BP 121/68 02/09/17 05:05 Pulse Ox 96 02/09/17 05:05 - Medical History PMH: Anxiety, Arthritis, Bronchitis, CAD, Depression, 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 commercial lines underwriter, not aware), Fractures, Gastritis, Gall Bladder Disease (s/p cholecystectomy), HTN, Post Traumatic Stress Disorder, Chronic Kidney Disease, Rheumatoid Arthritis, Seizures, Chronic Pain Surgical History: Cholecystectomy - [facility] Procedures ALCOHOL DETOXIFICATION (07/04/15) APPLICATION OF SPLINT (03/20/13) CLOSURE SKIN & SUBCUTANEOUS NEC (08/14/13) DETOXIFICATION SERVICES FOR SUBSTANCE ABUSE TREATMENT (03/22/16) ESOPHAGOGASTRODUODENOSCOPY [EGD] W/CLOSED BIOPSY (02/16/15) OTHER GROUP THERAPY (03/12/13) PHYSICAL THERAPY NEC (07/04/15) TETANUS TOXOID ADMINIST (01/19/14) Family History: States: No Known Family Hx - Social History Hx Tobacco Use: No Hx Alcohol Use: Yes Hx Substance Use: No - Immunization History Hx Tetanus Toxoid Vaccination: Yes Hx Influenza Vaccination: No Hx Pneumococcal Vaccination: Yes Review Of Systems Constitutional: Negative for: Fever, Chills, Sweats Cardiovascular: Negative for: Chest Pain Respiratory: Negative for: Shortness of Breath Gastrointestinal: Negative for: Nausea, Vomiting, Abdominal Pain, Diarrhea Physical Exam - Physical Exam Appears: Non-toxic, No Acute Distress, Other (EtOH on breath ) Skin: Warm, Dry Neck: Supple Cardiovascular: Rhythm Regular Respiratory: No Rales, No Rhonchi, No Stridor, No Wheezing Gastrointestinal/Abdominal: Soft, No Tenderness, No Distention, No Guarding, No Rebound Extremity: Normal ROM, No Tenderness Neurological/Psych: Oriented x3 ED Course And Treatment O2 Sat by Pulse Oximetry: 96 Pulse Ox Interpretation: Normal Reevaluation Time: 05:16 Reassessment Condition: Improved ED OBSERVATION Discharge: Yes Date of observation admission: 02/08/17 Time of observation admission: 22:14 - Goals of Observation Goals of observation are:: Sobriety Disposition Counseled Patient/Family Regarding: Studies Performed, Diagnosis, Need For Followup - Disposition Disposition: HOME/ ROUTINE Disposition Time: 22:09 Condition: FAIR - Clinical Impression Clinical Impression: Alcohol abuse with intoxication - Scribe Statement The provider has reviewed the documentation as recorded by the Rominaibjosé miguel Noel All medical record entries made by the Jada were at my direction and personally dictated by me. I have reviewed the chart and agree that the record accurately reflects my personal performance of the history, physical exam, medical decision making, and the department course for this patient. I have also personally directed, reviewed, and agree with the discharge instructions and disposition.
[2017-02-09 00:54] VITALS: PULSE 94
[2017-02-09 05:07] VITALS: BP 121/68; RESP 16; TEMP 98.4; O2SAT 96
== END 2017-02-09 06:25 | disposition home or self-care (01) ==
LOC: C.ER 21:20 → C.9OBSV 22:10
PROVIDERS: ADMIT Emergency Medicine; ATTEND Emergency Medicine
DX: F10.129 Alcohol abuse with intoxication, unspecified (principal); Y90.9 Presence of alcohol in blood, level not specified
CPT/HCPCS: 99284; G0378

== ENCOUNTER 2017-02-09 21:37 | Observation (INO) | payer MEDICAID ==
[2017-02-09 21:38] VITALS: BMI 29.8
--- NOTE | 2017-02-09 21:49 | C.PDOC ---
History Of Present Illness The patient, a 56 y/o male, presents to the ED with public alcohol intoxication for an unknown duration. Patient is familiar to the ED and has had many prior visits concerning alcohol intoxication. Patient admits to drinking earlier today. He denies suicidal/homicidal ideation and has no physical complaints at this time. Time Seen by Provider: 02/09/17 21:42 History Per: Patient History/Exam Limitations: intoxication Onset/Duration Of Symptoms: Unknown Current Symptoms Are (Timing): Still Present Suicide/Self Injury Attempted (Context): None Modifying Factor(s): Alcohol Associated Symptoms: denies: Suicidal Thoughts, Suicidal Plan Involuntary Hold By: None Recent travel outside of the [place]: No Additional History Per: Patient Past Medical History Reviewed: Historical Data, Nursing Documentation, Vital Signs Vital Signs: Last Vital Signs Temp 98.0 F 02/09/17 21:58 Pulse 94 H 02/09/17 21:58 Resp 18 02/09/17 21:58 BP 107/67 02/09/17 21:58 Pulse Ox 98 02/09/17 21:58 - Medical History PMH: Anxiety, Arthritis, Bronchitis, CAD, Depression, 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 procedure writer, not aware), Fractures, Gastritis, Gall Bladder Disease (s/p cholecystectomy), HTN, Post Traumatic Stress Disorder, Chronic Kidney Disease, Rheumatoid Arthritis, Seizures, Chronic Pain Surgical History: Cholecystectomy - [facility] Procedures ALCOHOL DETOXIFICATION (07/04/15) APPLICATION OF SPLINT (03/20/13) CLOSURE SKIN & SUBCUTANEOUS NEC (08/14/13) DETOXIFICATION SERVICES FOR SUBSTANCE ABUSE TREATMENT (03/22/16) ESOPHAGOGASTRODUODENOSCOPY [EGD] W/CLOSED BIOPSY (02/16/15) OTHER GROUP THERAPY (03/12/13) PHYSICAL THERAPY NEC (07/04/15) TETANUS TOXOID ADMINIST (01/19/14) Family History: States: Unknown Family Hx - Social History Hx Tobacco Use: No Hx Alcohol Use: Yes Hx Substance Use: No - Immunization History Hx Tetanus Toxoid Vaccination: Yes Hx Influenza Vaccination: No Hx Pneumococcal Vaccination: Yes Review Of Systems Except As Marked, All Systems Reviewed And Found Negative. Constitutional: Positive for: Other (+alcohol intoxication ) Psych: Negative for: Suicidal ideation Physical Exam - Physical Exam Additional Physical Exam Comments: Constitutional: No acute distress. Visibly intoxicated. Head: Normocephalic. Atraumatic. Eyes: PERRL. ENT: Moist mucous membranes. alcohol on breath. Neck: Supple. Cardiovascular: Regular rate. Chest: No tenderness. Respiratory: Clear to auscultation bilaterally. GI: Soft. Nontender. Nondistended. Back: No CVA tenderness. Musculoskeletal: No tenderness or swelling of extremities. Skin: No rash. Neurologic: Arousable to touch and verbal stimulation ED OBSERVATION Date of observation admission: 02/09/17 Time of observation admission: 23:14 - Observation admission statement Patient is being placed in observation because:: alcohol intoxication - Goals of Observation Goals of observation are:: sobriety - Progress Note Progress Note: 02/09/17 23:14 patient is resting comfortably, vitals are stable. 02/09/17 23:59 Will sign out to ER night team pending sobriety. Disposition - Disposition Disposition Time: 01:00 Condition: STABLE - Clinical Impression Clinical Impression: Alcohol intoxication - Scribe Statement The provider has reviewed the documentation as recorded by the Scribe (Kari Fajardo) Provider Attestation: All medical record entries made by the Scribe were at my direction and personally dictated by me. I have reviewed the chart and agree that the record accurately reflects my personal performance of the history, physical exam, medical decision making, and the department course for this patient. I have also personally directed, reviewed, and agree with the discharge instructions and disposition.
[2017-02-09 22:01] VITALS: RESP 18; TEMP 98; O2SAT 98
[2017-02-10 05:40] VITALS: BP 118/76; PULSE 86
== END 2017-02-10 05:27 | disposition home or self-care (01) ==
LOC: C.ER 21:37 → C.9OBSV 23:14
PROVIDERS: ADMIT Student in an Organized Health Care Education/Training Program; ATTEND Student in an Organized Health Care Education/Training Program
DX: F10.129 Alcohol abuse with intoxication, unspecified (principal); Y90.9 Presence of alcohol in blood, level not specified
CPT/HCPCS: 82948; G0378

== ENCOUNTER 2017-02-10 21:47 | Emergency (ER) | payer MEDICAID ==
[2017-02-10 21:48] VITALS: BMI 29.8
--- NOTE | 2017-02-11 00:02 | C.PDOC ---
History Of Present Illness 56year old male presents to the emergency department for alcohol intoxication. The patient is well known to emergency room staff and has a history of multiple prior visits for ETOH intoxication. Patient admits to ETOH use today, and has no other medical complaints at this time. He is requesting a place to stay overnight. He denies suicidal ideation, homicidal ideation, fever, chills, shortness of breath, cough, chest pain, palpitations, abdominal pain, nausea, vomiting, dysuria, hematuria, headache, and dizziness. Time Seen by Provider: 02/10/17 22:59 Chief Complaint (Nursing): Substance Abuse History Per: Patient History/Exam Limitations: no limitations Onset/Duration Of Symptoms: Persistent Current Symptoms Are (Timing): Still Present Modifying Factor(s): Alcohol Associated Symptoms: denies: Suicidal Thoughts, Suicidal Plan Recent travel outside of the [place]: No Past Medical History Reviewed: Historical Data, Nursing Documentation, Vital Signs Vital Signs: Last Vital Signs Temp 97.7 F 02/11/17 03:25 Pulse 69 02/11/17 03:25 Resp 20 02/11/17 03:25 BP 110/62 02/11/17 03:25 Pulse Ox 96 02/11/17 03:25 - Medical History PMH: Anxiety, Arthritis, Bronchitis, CAD, Depression, 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 copy writer, not aware), Fractures, Gastritis, Gall Bladder Disease (s/p cholecystectomy), HTN, Post Traumatic Stress Disorder, Chronic Kidney Disease, Rheumatoid Arthritis, Seizures, Chronic Pain Surgical History: Cholecystectomy - [facility] Procedures ALCOHOL DETOXIFICATION (07/04/15) APPLICATION OF SPLINT (03/20/13) CLOSURE SKIN & SUBCUTANEOUS NEC (08/14/13) DETOXIFICATION SERVICES FOR SUBSTANCE ABUSE TREATMENT (03/22/16) ESOPHAGOGASTRODUODENOSCOPY [EGD] W/CLOSED BIOPSY (02/16/15) OTHER GROUP THERAPY (03/12/13) PHYSICAL THERAPY NEC (07/04/15) TETANUS TOXOID ADMINIST (01/19/14) Family History: States: Unknown Family Hx - Social History Hx Tobacco Use: No Hx Alcohol Use: Yes Hx Substance Use: No - Immunization History Hx Tetanus Toxoid Vaccination: Yes Hx Influenza Vaccination: No Hx Pneumococcal Vaccination: Yes Review Of Systems Except As Marked, All Systems Reviewed And Found Negative. Constitutional: Negative for: Fever, Chills Cardiovascular: Negative for: Chest Pain Respiratory: Negative for: Shortness of Breath Gastrointestinal: Negative for: Nausea, Vomiting, Abdominal Pain Skin: Negative for: Rash Neurological: Negative for: Headache Physical Exam - Physical Exam Appears: Non-toxic, No Acute Distress, Other (EtOH on breath) Skin: Normal Color, Warm, Dry Head: Atraumatic, Normacephalic Chest: Symmetrical Cardiovascular: Rhythm Regular Respiratory: Normal Breath Sounds, No Rales, No Rhonchi, No Wheezing Gastrointestinal/Abdominal: Soft, No Tenderness, No Guarding, No Rebound Back: Normal Inspection Extremity: Normal ROM, Capillary Refill (< 2 sec. ) Neurological/Psych: Oriented x3, Normal Speech, Normal Cognition ED Course And Treatment O2 Sat by Pulse Oximetry: 97 (RA) Pulse Ox Interpretation: Normal Reevaluation Time: 05:30 Reassessment Condition: Improved Disposition Doctor Will See Patient In The: Office Counseled Patient/Family Regarding: Studies Performed, Diagnosis - Disposition Disposition: HOME/ ROUTINE Disposition Time: 04:53 Condition: GOOD - Clinical Impression Clinical Impression: Alcohol abuse - Scribe Statement The provider has reviewed the documentation as recorded by the Rominaibjosé miguel Castro All medical record entries made by the Jada were at my direction and personally dictated by me. I have reviewed the chart and agree that the record accurately reflects my personal performance of the history, physical exam, medical decision making, and the department course for this patient. I have also personally directed, reviewed, and agree with the discharge instructions and disposition.
[2017-02-11 01:25] VITALS: RESP 20
[2017-02-11 05:55] VITALS: BP 146/72; PULSE 72; TEMP 98.2; O2SAT 96
== END 2017-02-11 05:55 | disposition home or self-care (01) ==
LOC: C.ER 21:47
DX: F10.10 Alcohol abuse, uncomplicated (principal); Y90.9 Presence of alcohol in blood, level not specified

== ENCOUNTER 2017-02-11 20:39 | Observation (INO) | payer MEDICAID ==
[2017-02-11 20:39] VITALS: BMI 29.8
[2017-02-11 23:23] VITALS: TEMP 97.8
--- NOTE | 2017-02-11 23:51 | C.PDOC ---
History Of Present Illness Patient presents to the ED complaining of acute alcohol intoxication. Patient is well known in the ED and to the staff. He admits to drinking alcohol prior to arrival. Patient denies any chest pain, nausea, vomiting, shortness of breath , suicidal/homicidal ideation or any other complaints at this time. Time Seen by Provider: 02/11/17 23:49 Chief Complaint (Nursing): Substance Abuse History Per: Patient History/Exam Limitations: intoxication Onset/Duration Of Symptoms: Other Current Symptoms Are (Timing): Still Present Suicide/Self Injury Attempted (Context): None Modifying Factor(s): Alcohol Severity: None Pain Scale Rating Of: 0 Associated Symptoms: Other Involuntary Hold By: None Recent travel outside of the [place]: No Additional History Per: Prior Records Past Medical History Reviewed: Historical Data, Nursing Documentation, Vital Signs Vital Signs: Last Vital Signs Temp 97.8 F 02/11/17 23:20 Pulse 82 02/11/17 23:20 Resp 16 02/11/17 23:20 BP 148/94 H 02/11/17 23:20 Pulse Ox 96 02/12/17 00:59 - Medical History PMH: Anxiety, Arthritis, Bronchitis, CAD, Depression, 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 sports book writer, not aware), Fractures, Gastritis, Gall Bladder Disease (s/p cholecystectomy), HTN, Post Traumatic Stress Disorder, Chronic Kidney Disease, Rheumatoid Arthritis, Seizures, Chronic Pain Surgical History: Cholecystectomy - [facility] Procedures ALCOHOL DETOXIFICATION (07/04/15) APPLICATION OF SPLINT (03/20/13) CLOSURE SKIN & SUBCUTANEOUS NEC (08/14/13) DETOXIFICATION SERVICES FOR SUBSTANCE ABUSE TREATMENT (03/22/16) ESOPHAGOGASTRODUODENOSCOPY [EGD] W/CLOSED BIOPSY (02/16/15) OTHER GROUP THERAPY (03/12/13) PHYSICAL THERAPY NEC (07/04/15) TETANUS TOXOID ADMINIST (01/19/14) Family History: States: No Known Family Hx - Social History Hx Tobacco Use: No Hx Alcohol Use: Yes Hx Substance Use: No - Immunization History Hx Tetanus Toxoid Vaccination: Yes Hx Influenza Vaccination: No Hx Pneumococcal Vaccination: Yes Review Of Systems Cardiovascular: Negative for: Chest Pain Respiratory: Negative for: Shortness of Breath Gastrointestinal: Negative for: Nausea, Vomiting Psych: Negative for: Suicidal ideation Physical Exam - Physical Exam Appears: Non-toxic, No Acute Distress, Other (intoxicated) Skin: Warm, Dry Head: Atraumatic, Normacephalic Neck: Supple Chest: Symmetrical Cardiovascular: Rhythm Regular Respiratory: No Accessory Muscle Use, No Rales, No Rhonchi, No Wheezing Back: No CVA Tenderness Extremity: Bilateral: Atraumatic ED Course And Treatment O2 Sat by Pulse Oximetry: 96 (room air) Pulse Ox Interpretation: Normal Disposition Counseled Patient/Family Regarding: Studies Performed, Diagnosis, Need For Followup - Disposition Disposition Time: 23:50 Condition: FAIR - Clinical Impression Clinical Impression: Alcohol abuse, daily use - Scribe Statement The provider has reviewed the documentation as recorded by the Scribe Bing Fajardo Provider Attestation: All medical record entries made by the Scribe were at my direction and personally dictated by me. I have reviewed the chart and agree that the record accurately reflects my personal performance of the history, physical exam, medical decision making, and the department course for this patient. I have also personally directed, reviewed, and agree with the discharge instructions and disposition.
[2017-02-12 01:47] VITALS: BP 152/87; PULSE 89; RESP 15; O2SAT 97
== END 2017-02-12 06:00 | disposition home or self-care (01) ==
LOC: C.ER 20:39 → C.9OBSV 23:51
PROVIDERS: ADMIT Emergency Medicine; ATTEND Emergency Medicine
DX: F10.129 Alcohol abuse with intoxication, unspecified (principal); Y90.9 Presence of alcohol in blood, level not specified
CPT/HCPCS: 82948; G0378

== ENCOUNTER 2017-02-12 20:17 | Observation (INO) | payer MEDICAID ==
[2017-02-12 20:17] VITALS: BMI 29.8
--- NOTE | 2017-02-12 20:49 | C.PDOC ---
Time Seen by Provider: 02/12/17 20:47 Chief Complaint (Nursing): Substance Abuse Past Medical History - Medical History PMH: Anxiety, Arthritis, Bronchitis, CAD, Depression, 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 radio script writer, not aware), Fractures, Gastritis, Gall Bladder Disease (s/p cholecystectomy), HTN, Post Traumatic Stress Disorder, Chronic Kidney Disease, Rheumatoid Arthritis, Seizures, Chronic Pain Surgical History: Cholecystectomy - [facility] Procedures ALCOHOL DETOXIFICATION (07/04/15) APPLICATION OF SPLINT (03/20/13) CLOSURE SKIN & SUBCUTANEOUS NEC (08/14/13) DETOXIFICATION SERVICES FOR SUBSTANCE ABUSE TREATMENT (03/22/16) ESOPHAGOGASTRODUODENOSCOPY [EGD] W/CLOSED BIOPSY (02/16/15) OTHER GROUP THERAPY (03/12/13) PHYSICAL THERAPY NEC (07/04/15) TETANUS TOXOID ADMINIST (01/19/14) Family History: States: Unknown Family Hx - Social History Hx Tobacco Use: No Hx Alcohol Use: Yes Hx Substance Use: No - Immunization History Hx Tetanus Toxoid Vaccination: Yes Hx Influenza Vaccination: No Hx Pneumococcal Vaccination: Yes ED OBSERVATION Date of observation admission: 02/12/17 Time of observation admission: 20:48 - Observation admission statement Patient is being placed in observation because:: acute alcohol intoxication - Goals of Observation Goals of observation are:: sobriety - Progress Note Progress Note: 02/12/17 20:48 vitals stable, no complaints Disposition Counseled Patient/Family Regarding: Studies Performed, Diagnosis - Disposition Disposition Time: 20:48
--- NOTE | 2017-02-12 20:51 | C.PDOC ---
History Of Present Illness 56 y/o male presents to ED for public intoxication. Known to ER staff with multiple similar past visits. Denies any pain or medical complaints. Time Seen by Provider: 02/12/17 20:47 Chief Complaint (Nursing): Substance Abuse History Per: Patient History/Exam Limitations: no limitations Onset/Duration Of Symptoms: Persistent Current Symptoms Are (Timing): Still Present Modifying Factor(s): Alcohol Associated Symptoms: denies: Suicidal Thoughts, Suicidal Plan Recent travel outside of the [place]: No Past Medical History Reviewed: Historical Data, Nursing Documentation, Vital Signs Vital Signs: Last Vital Signs Temp 97.9 F 02/13/17 01:26 Pulse 79 02/13/17 01:26 Resp 14 02/13/17 01:26 BP 130/89 02/13/17 01:26 Pulse Ox 94 L 02/13/17 01:26 - Medical History PMH: Anxiety, Arthritis, Bronchitis, CAD, Depression, 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 underwriter solicitation director, not aware), Fractures, Gastritis, Gall Bladder Disease (s/p cholecystectomy), HTN, Post Traumatic Stress Disorder, Chronic Kidney Disease, Rheumatoid Arthritis, Seizures, Chronic Pain Surgical History: Cholecystectomy - [facility] Procedures ALCOHOL DETOXIFICATION (07/04/15) APPLICATION OF SPLINT (03/20/13) CLOSURE SKIN & SUBCUTANEOUS NEC (08/14/13) DETOXIFICATION SERVICES FOR SUBSTANCE ABUSE TREATMENT (03/22/16) ESOPHAGOGASTRODUODENOSCOPY [EGD] W/CLOSED BIOPSY (02/16/15) OTHER GROUP THERAPY (03/12/13) PHYSICAL THERAPY NEC (07/04/15) TETANUS TOXOID ADMINIST (01/19/14) Family History: States: Unknown Family Hx - Social History Hx Tobacco Use: No Hx Alcohol Use: Yes Hx Substance Use: No - Immunization History Hx Tetanus Toxoid Vaccination: Yes Hx Influenza Vaccination: No Hx Pneumococcal Vaccination: Yes Review Of Systems Constitutional: Negative for: Fever, Chills Cardiovascular: Negative for: Chest Pain Respiratory: Negative for: Shortness of Breath Gastrointestinal: Negative for: Nausea, Vomiting, Abdominal Pain Skin: Negative for: Rash Physical Exam - Physical Exam Appears: Non-toxic Skin: Warm, Dry Head: Atraumatic, Normacephalic Chest: Symmetrical Cardiovascular: Rhythm Regular Respiratory: No Rales, No Rhonchi, No Wheezing Gastrointestinal/Abdominal: Soft, No Tenderness Extremity: Normal ROM, Capillary Refill (< 2 sec. ) Neurological/Psych: Oriented x3 ED Course And Treatment O2 Sat by Pulse Oximetry: 97 (ra) Pulse Ox Interpretation: Normal Reevaluation Time: : Reassessment Condition: Improved ED OBSERVATION Discharge: Yes Date of observation admission: 02/12/17 Time of observation admission: 20:48 - Observation admission statement Patient is being placed in observation because:: acute alcohol intoxication - Goals of Observation Goals of observation are:: sobriety - Progress Note Progress Note: 02/12/17 20:48 vitals stable, no complaints 02/12/17 22:48 no complaints 02/13/17 00:48 vitals stable 02/13/17 02:50 ambulating to the bathroom 02/13/17 04:15 no complaints, wants to go home Disposition Counseled Patient/Family Regarding: Studies Performed, Diagnosis, Need For Followup - Disposition Disposition: HOME/ ROUTINE Disposition Time: 20:48 Condition: FAIR - Clinical Impression Clinical Impression: Alcohol abuse with intoxication - Scribe Statement The provider has reviewed the documentation as recorded by the Jada Castro Provider Scribe Attestation: All medical record entries made by the Jada were at my direction and personally dictated by me. I have reviewed the chart and agree that the record accurately reflects my personal performance of the history, physical exam, medical decision making, and the department course for this patient. I have also personally directed, reviewed, and agree with the discharge instructions and disposition.
[2017-02-13 01:26] VITALS: BP 130/89; PULSE 79; RESP 14; TEMP 97.9
[2017-02-13 04:15] VITALS: O2SAT 97
== END 2017-02-13 04:17 | disposition home or self-care (01) ==
LOC: C.ER 20:17 → C.9OBSV 20:49
PROVIDERS: ADMIT Emergency Medicine; ATTEND Emergency Medicine
DX: F10.129 Alcohol abuse with intoxication, unspecified (principal); Y90.9 Presence of alcohol in blood, level not specified
CPT/HCPCS: 82948; G0378

== ENCOUNTER 2017-02-14 20:27 | Observation (INO) | payer MEDICAID ==
[2017-02-14 20:27] VITALS: BMI 29.8
[2017-02-14 20:50] VITALS: TEMP 98.2
--- NOTE | 2017-02-14 21:30 | C.PDOC ---
History Of Present Illness 56 y/o male presents to ED for public intoxication. Known to ER staff with multiple similar past visits. Denies any pain or medical complaints. Chief Complaint (Nursing): Substance Abuse History Per: Patient History/Exam Limitations: no limitations Onset/Duration Of Symptoms: Hrs Current Symptoms Are (Timing): Still Present Suicide/Self Injury Attempted (Context): None Modifying Factor(s): Alcohol Severity: Mild Associated Symptoms: denies: Suicidal Thoughts, Suicidal Plan Involuntary Hold By: None Recent travel outside of the [place]: No Additional History Per: Patient, Prior Records Past Medical History Reviewed: Historical Data, Nursing Documentation, Vital Signs Vital Signs: Last Vital Signs Temp 98.2 F 02/14/17 20:48 Pulse 82 02/15/17 00:49 Resp 18 02/15/17 00:49 BP 134/75 02/15/17 00:49 Pulse Ox 95 02/15/17 05:31 - Medical History PMH: Anxiety, Arthritis, Bronchitis, CAD, Depression, 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 senior technical writer, not aware), Fractures, Gastritis, Gall Bladder Disease (s/p cholecystectomy), HTN, Post Traumatic Stress Disorder, Chronic Kidney Disease, Rheumatoid Arthritis, Seizures, Chronic Pain Surgical History: Cholecystectomy - [facility] Procedures ALCOHOL DETOXIFICATION (07/04/15) APPLICATION OF SPLINT (03/20/13) CLOSURE SKIN & SUBCUTANEOUS NEC (08/14/13) DETOXIFICATION SERVICES FOR SUBSTANCE ABUSE TREATMENT (03/22/16) ESOPHAGOGASTRODUODENOSCOPY [EGD] W/CLOSED BIOPSY (02/16/15) OTHER GROUP THERAPY (03/12/13) PHYSICAL THERAPY NEC (07/04/15) TETANUS TOXOID ADMINIST (01/19/14) Family History: States: Unknown Family Hx - Social History Hx Tobacco Use: No Hx Alcohol Use: Yes Hx Substance Use: No - Immunization History Hx Tetanus Toxoid Vaccination: Yes Hx Influenza Vaccination: No Hx Pneumococcal Vaccination: Yes Review Of Systems Except As Marked, All Systems Reviewed And Found Negative. Constitutional: Positive for: Other (Appears intoxicated). Negative for: Fever , Chills Gastrointestinal: Negative for: Nausea, Vomiting, Diarrhea Psych: Negative for: Suicidal ideation Physical Exam - Physical Exam Appears: Non-toxic, No Acute Distress, Other ((+) AOB, (+) intoxication) Skin: Warm, Dry Head: Atraumatic, Normacephalic Eye(s): bilateral: Normal Inspection Cardiovascular: Rhythm Regular, No Murmur Respiratory: Normal Breath Sounds, No Rales, No Rhonchi, No Wheezing Gastrointestinal/Abdominal: Soft, No Tenderness Neurological/Psych: Oriented x3, Normal Speech, Normal Cognition, Normal Motor, No Other (No focal deficit) ED Course And Treatment O2 Sat by Pulse Oximetry: 95 (Room air) Pulse Ox Interpretation: Normal Medical Decision Making Medical Decision Making: Plans: -ED observation -Reassess and disposition ED OBSERVATION Discharge: Yes Date of observation admission: 02/14/17 Time of observation admission: 21:35 - Observation admission statement Patient is being placed in observation because:: EToH Intoxicationalcohol intoxication. - Goals of Observation Goals of observation are:: sobriety - Progress Note Progress Note: 02/15/17 05:32 Patient noted to be alert , conscious, orientated and steady of gait. Disposition Counseled Patient/Family Regarding: Diagnosis - Disposition Disposition: HOME/ ROUTINE Disposition Time: 05:31 Condition: STABLE - POA Present On Arrival: None - Clinical Impression Clinical Impression: Alcohol intoxication - Scribe Statement The provider has reviewed the documentation as recorded by the Jada morillo Provider Attestation: All medical record entries made by the Jada were at my direction and personally dictated by me. I have reviewed the chart and agree that the record accurately reflects my personal performance of the history, physical exam, medical decision making, and the department course for this patient. I have also personally directed, reviewed, and agree with the discharge instructions and disposition.
[2017-02-15 00:50] VITALS: BP 134/75; PULSE 82; RESP 18
[2017-02-15 02:37] VITALS: O2SAT 95
== END 2017-02-15 05:30 | disposition home or self-care (01) ==
LOC: C.ER 20:27 → C.9OBSV 02-15 00:09
PROVIDERS: ADMIT Emergency Medicine; ATTEND Emergency Medicine
DX: F10.129 Alcohol abuse with intoxication, unspecified (principal); Y90.9 Presence of alcohol in blood, level not specified
CPT/HCPCS: 99283; G0378

== ENCOUNTER 2017-02-15 22:04 | Observation (INO) | payer MEDICAID ==
[2017-02-15 22:05] VITALS: BMI 29.8
--- NOTE | 2017-02-15 22:10 | C.PDOC ---
History Of Present Illness Patient presents to the ER for acute ETOH intoxication. Patient admits to ETOH use. Denies any physical complaints at this time. Time Seen by Provider: 02/15/17 22:09 Chief Complaint (Nursing): Substance Abuse History Per: Patient History/Exam Limitations: no limitations, intoxication Onset/Duration Of Symptoms: Hrs Current Symptoms Are (Timing): Still Present Suicide/Self Injury Attempted (Context): None Modifying Factor(s): Alcohol Associated Symptoms: denies: Depression, Suicidal Thoughts, Suicidal Plan Involuntary Hold By: None Recent travel outside of the [place]: No Past Medical History Reviewed: Historical Data, Nursing Documentation, Vital Signs Vital Signs: Last Vital Signs Temp 97.5 F L 02/15/17 22:07 Pulse 87 02/16/17 04:10 Resp 14 02/16/17 04:10 BP 120/70 02/16/17 04:10 Pulse Ox 96 02/16/17 04:10 - Medical History PMH: Anxiety, Arthritis, Bronchitis, CAD, Depression, 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), Fractures, Gastritis, Gall Bladder Disease (s/p cholecystectomy), HTN, Post Traumatic Stress Disorder, Chronic Kidney Disease, Rheumatoid Arthritis, Seizures, Chronic Pain Surgical History: Cholecystectomy - [facility] Procedures ALCOHOL DETOXIFICATION (07/04/15) APPLICATION OF SPLINT (03/20/13) CLOSURE SKIN & SUBCUTANEOUS NEC (08/14/13) DETOXIFICATION SERVICES FOR SUBSTANCE ABUSE TREATMENT (03/22/16) ESOPHAGOGASTRODUODENOSCOPY [EGD] W/CLOSED BIOPSY (02/16/15) OTHER GROUP THERAPY (03/12/13) PHYSICAL THERAPY NEC (07/04/15) TETANUS TOXOID ADMINIST (01/19/14) Family History: States: Unknown Family Hx - Social History Hx Tobacco Use: No Hx Alcohol Use: Yes Hx Substance Use: No - Immunization History Hx Tetanus Toxoid Vaccination: Yes Hx Influenza Vaccination: No Hx Pneumococcal Vaccination: Yes Review Of Systems Constitutional: Negative for: Fever, Chills Gastrointestinal: Negative for: Nausea, Vomiting, Diarrhea Physical Exam - Physical Exam Appears: Well, Non-toxic, Other (ETOH on breath) Skin: Warm, Dry Oral Mucosa: Moist Chest: Symmetrical, No Tenderness Cardiovascular: Rhythm Regular, No Murmur Respiratory: No Rales, No Rhonchi, No Wheezing Gastrointestinal/Abdominal: Soft, No Tenderness Neurological/Psych: Oriented x3 ED Course And Treatment O2 Sat by Pulse Oximetry: 97 Pulse Ox Interpretation: Normal Reevaluation Time: 05:34 Reassessment Condition: Improved ED OBSERVATION Discharge: Yes Date of observation admission: 02/15/17 Time of observation admission: 22:10 - Observation admission statement Patient is being placed in observation because:: Acute ETOH intoxication - Goals of Observation Goals of observation are:: Sobriety - Progress Note Progress Note: 02/15/17 22:10 no complaints, vitals stable Disposition Counseled Patient/Family Regarding: Studies Performed, Diagnosis - Disposition Disposition Time: 22:09 Condition: FAIR - Clinical Impression Clinical Impression: Alcohol abuse with intoxication - Scribe Statement The provider has reviewed the documentation as recorded by the Scribjosé miguel Ramirez All medical record entries made by the Rominaibjosé miguel were at my direction and personally dictated by me. I have reviewed the chart and agree that the record accurately reflects my personal performance of the history, physical exam, medical decision making, and the department course for this patient. I have also personally directed, reviewed, and agree with the discharge instructions and disposition.
[2017-02-16 04:10] VITALS: BP 120/70; PULSE 87; RESP 14
[2017-02-16 05:35] VITALS: O2SAT 97
[2017-02-16 06:01] VITALS: TEMP 97.2
== END 2017-02-16 05:35 | disposition home or self-care (01) ==
LOC: C.ER 22:04 → C.9OBSV 23:18
PROVIDERS: ADMIT Emergency Medicine; ATTEND Emergency Medicine
DX: F10.129 Alcohol abuse with intoxication, unspecified (principal); Y90.9 Presence of alcohol in blood, level not specified
CPT/HCPCS: 99283; G0378

== ENCOUNTER 2017-02-17 20:25 | Observation (INO) | payer MEDICAID ==
[2017-02-17 20:25] VITALS: BMI 29.8
--- NOTE | 2017-02-17 20:56 | C.PDOC ---
History Of Present Illness 56 yr old male presents to the ER intoxicated. Patient has multiple previous visits for alcohol intoxication. ROS is unable to be obtained due to intoxication. Time Seen by Provider: 02/17/17 20:55 Chief Complaint (Nursing): Substance Abuse History Per: Patient, Other (Prior records. ) History/Exam Limitations: intoxication Onset/Duration Of Symptoms: Persistent Current Symptoms Are (Timing): Still Present Modifying Factor(s): Alcohol Past Medical History Reviewed: Historical Data, Nursing Documentation, Vital Signs Vital Signs: Last Vital Signs Temp 97.7 F 02/18/17 05:11 Pulse 87 02/18/17 05:11 Resp 16 02/18/17 05:11 BP 142/90 02/18/17 05:11 Pulse Ox 100 02/18/17 05:11 - Medical History PMH: Anxiety, Arthritis, Bronchitis, CAD, Depression, 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), Fractures, Gastritis, Gall Bladder Disease (s/p cholecystectomy), HTN, Post Traumatic Stress Disorder, Chronic Kidney Disease, Rheumatoid Arthritis, Seizures, Chronic Pain Surgical History: Cholecystectomy - [facility] Procedures ALCOHOL DETOXIFICATION (07/04/15) APPLICATION OF SPLINT (03/20/13) CLOSURE SKIN & SUBCUTANEOUS NEC (08/14/13) DETOXIFICATION SERVICES FOR SUBSTANCE ABUSE TREATMENT (03/22/16) ESOPHAGOGASTRODUODENOSCOPY [EGD] W/CLOSED BIOPSY (02/16/15) OTHER GROUP THERAPY (03/12/13) PHYSICAL THERAPY NEC (07/04/15) TETANUS TOXOID ADMINIST (01/19/14) Family History: States: No Known Family Hx - Social History Hx Tobacco Use: No Hx Alcohol Use: Yes Hx Substance Use: No - Immunization History Hx Tetanus Toxoid Vaccination: Yes Hx Influenza Vaccination: No Hx Pneumococcal Vaccination: Yes Review Of Systems Review Of Systems: ROS cannot be obtained secondary to pt's inabilty to answer questions. Physical Exam - Physical Exam Appears: Non-toxic, Unkempt Skin: Warm, Dry, No Rash Head: Atraumatic, Normacephalic Oral Mucosa: Moist Chest: Symmetrical, No Tenderness Cardiovascular: Rhythm Regular, No Murmur Respiratory: No Rales, No Rhonchi, No Stridor, No Wheezing Extremity: No Tenderness, No Swelling Neurological/Psych: Other (Patient is intoxicated. Alert and oriented appropriately. ) ED Course And Treatment O2 Sat by Pulse Oximetry: 98 Pulse Ox Interpretation: Normal Reevaluation Time: 05:29 Reassessment Condition: Improved ED OBSERVATION Discharge: Yes Date of observation admission: 02/17/17 Time of observation admission: 20:56 Disposition Counseled Patient/Family Regarding: Studies Performed, Diagnosis, Need For Followup - Disposition Disposition: HOME/ ROUTINE Disposition Time: 20:55 Condition: FAIR - Clinical Impression Clinical Impression: Alcoholic intoxication - Scribe Statement The provider has reviewed the documentation as recorded by the Jada Alves Provider Attestation: All medical record entries made by the Jada were at my direction and personally dictated by me. I have reviewed the chart and agree that the record accurately reflects my personal performance of the history, physical exam, medical decision making, and the department course for this patient. I have also personally directed, reviewed, and agree with the discharge instructions and disposition.
[2017-02-18 05:11] VITALS: BP 142/90; PULSE 87; RESP 16; TEMP 97.7
[2017-02-18 05:29] VITALS: O2SAT 98
== END 2017-02-18 05:29 | disposition home or self-care (01) ==
LOC: C.ER 20:25 → C.9OBSV 20:56
PROVIDERS: ADMIT Emergency Medicine; ATTEND Emergency Medicine
DX: F10.120 Alcohol abuse with intoxication, uncomplicated (principal); Y90.9 Presence of alcohol in blood, level not specified
CPT/HCPCS: G0378 ×2

== ENCOUNTER 2017-02-18 21:11 | Observation (INO) | payer MEDICAID ==
[2017-02-18 21:12] VITALS: BMI 29.8
--- NOTE | 2017-02-18 21:41 | C.PDOC ---
History Of Present Illness The patient presents to the ED for acute alcohol intoxication for an unknown duration. Patient is familiar to the ED and has multiple prior ED evaluations for alcohol intoxication. Patient admits to drinking earlier today. He denies suicidal/homicidal ideation and has no physical complaints at this time. Chief Complaint (Nursing): Substance Abuse History Per: Patient History/Exam Limitations: intoxication Onset/Duration Of Symptoms: Unknown Current Symptoms Are (Timing): Still Present Suicide/Self Injury Attempted (Context): None Modifying Factor(s): Alcohol Associated Symptoms: denies: Suicidal Thoughts, Suicidal Plan Involuntary Hold By: None Recent travel outside of the [place]: No Additional History Per: Patient Past Medical History Reviewed: Historical Data, Nursing Documentation, Vital Signs Vital Signs: Last Vital Signs Temp 97.7 F 02/19/17 06:00 Pulse 85 02/19/17 06:00 Resp 16 02/19/17 06:00 BP 124/75 02/19/17 06:00 Pulse Ox 99 02/19/17 06:00 - Medical History PMH: Anxiety, Arthritis, Bronchitis, CAD, Depression, 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 senior copywriter, not aware), Fractures, Gastritis, Gall Bladder Disease (s/p cholecystectomy), HTN, Post Traumatic Stress Disorder, Chronic Kidney Disease, Rheumatoid Arthritis, Seizures, Chronic Pain Surgical History: Cholecystectomy - [facility] Procedures ALCOHOL DETOXIFICATION (07/04/15) APPLICATION OF SPLINT (03/20/13) CLOSURE SKIN & SUBCUTANEOUS NEC (08/14/13) DETOXIFICATION SERVICES FOR SUBSTANCE ABUSE TREATMENT (03/22/16) ESOPHAGOGASTRODUODENOSCOPY [EGD] W/CLOSED BIOPSY (02/16/15) OTHER GROUP THERAPY (03/12/13) PHYSICAL THERAPY NEC (07/04/15) TETANUS TOXOID ADMINIST (01/19/14) Family History: States: Unknown Family Hx - Social History Hx Tobacco Use: No Hx Alcohol Use: Yes Hx Substance Use: No - Immunization History Hx Tetanus Toxoid Vaccination: Yes Hx Influenza Vaccination: No Hx Pneumococcal Vaccination: Yes Review Of Systems Except As Marked, All Systems Reviewed And Found Negative. Constitutional: Positive for: Other (+alcohol intoxication ) Physical Exam - Physical Exam Appears: No Acute Distress, Other (visibly intoxicated ) Skin: Normal Color, Warm, Dry Head: Atraumatic Eye(s): bilateral: Normal Inspection Oral Mucosa: Moist, Other (+alcohol on breath ) Neck: Supple Chest: Symmetrical, No Deformity, No Tenderness Cardiovascular: Rhythm Regular, No Murmur Respiratory: Normal Breath Sounds, No Rales, No Rhonchi, No Wheezing Extremity: Normal ROM, Capillary Refill (less than 2 seconds ) Neurological/Psych: Other (arousable to touch and verbal stimuli ) Gait: Steady ED Course And Treatment O2 Sat by Pulse Oximetry: 95 (on RA) Pulse Ox Interpretation: Normal ED OBSERVATION Date of observation admission: 02/18/17 Time of observation admission: 22:51 - Observation admission statement Patient is being placed in observation because:: acute alcohol intoxication - Goals of Observation Goals of observation are:: sobriety - Progress Note Progress Note: 02/18/17 22:51 patient is resting comfortably, vitals are stable. Disposition Counseled Patient/Family Regarding: Diagnosis - Disposition Disposition: HOME/ ROUTINE Disposition Time: 06:27 Condition: STABLE - POA Present On Arrival: None - Clinical Impression Clinical Impression: Alcohol intoxication - Scribe Statement The provider has reviewed the documentation as recorded by the Scribe (Kari Fajardo) Provider Attestation: All medical record entries made by the Scribe were at my direction and personally dictated by me. I have reviewed the chart and agree that the record accurately reflects my personal performance of the history, physical exam, medical decision making, and the department course for this patient. I have also personally directed, reviewed, and agree with the discharge instructions and disposition.
[2017-02-18] MEDS ORDERED: Ammonia 2% Inhalant ONE (21:56)
[2017-02-19 04:23] VITALS: RESP 16
[2017-02-19 06:01] VITALS: BP 124/75; PULSE 85; TEMP 97.7
[2017-02-19 06:27] VITALS: O2SAT 95
== END 2017-02-19 06:27 | disposition home or self-care (01) ==
LOC: C.ER 21:11 → C.9OBSV 21:43
PROVIDERS: ADMIT Emergency Medicine; ATTEND Emergency Medicine
DX: F10.120 Alcohol abuse with intoxication, uncomplicated (principal); Y90.9 Presence of alcohol in blood, level not specified
CPT/HCPCS: 82948; G0378

== ENCOUNTER 2017-02-19 21:04 | Observation (INO) | payer MEDICAID ==
[2017-02-19 21:04] VITALS: BMI 29.8
--- NOTE | 2017-02-19 21:53 | C.PDOC ---
History Of Present Illness Pt c/o drinking too much alcohol tonight. Time Seen by Provider: 02/19/17 21:43 Chief Complaint (Nursing): Substance Abuse History Per: Patient History/Exam Limitations: intoxication Onset/Duration Of Symptoms: Unknown (today) Current Symptoms Are (Timing): Still Present Suicide/Self Injury Attempted (Context): None Modifying Factor(s): Alcohol Severity: Moderate Associated Symptoms: denies: Suicidal Thoughts, Suicidal Plan Additional History Per: Prior Records Past Medical History Reviewed: Historical Data, Nursing Documentation, Vital Signs Vital Signs: Last Vital Signs Temp 98.4 F 02/20/17 05:14 Pulse 92 H 02/20/17 05:14 Resp 18 02/20/17 05:14 BP 158/86 H 02/20/17 05:14 Pulse Ox 95 02/20/17 05:14 - Medical History PMH: Anxiety, Arthritis, Bronchitis, CAD, Depression, 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 senior copywriter, not aware), Fractures, Gastritis, Gall Bladder Disease (s/p cholecystectomy), HTN, Post Traumatic Stress Disorder, Chronic Kidney Disease, Rheumatoid Arthritis, Seizures, Chronic Pain Other PMH: Alcohol abuse Surgical History: Cholecystectomy - [facility] Procedures ALCOHOL DETOXIFICATION (07/04/15) APPLICATION OF SPLINT (03/20/13) CLOSURE SKIN & SUBCUTANEOUS NEC (08/14/13) DETOXIFICATION SERVICES FOR SUBSTANCE ABUSE TREATMENT (03/22/16) ESOPHAGOGASTRODUODENOSCOPY [EGD] W/CLOSED BIOPSY (02/16/15) OTHER GROUP THERAPY (03/12/13) PHYSICAL THERAPY NEC (07/04/15) TETANUS TOXOID ADMINIST (01/19/14) Family History: States: Unknown Family Hx - Social History Hx Tobacco Use: No Hx Alcohol Use: Yes Hx Substance Use: No - Immunization History Hx Tetanus Toxoid Vaccination: Yes Hx Influenza Vaccination: No Hx Pneumococcal Vaccination: Yes Review Of Systems Review Of Systems: ROS cannot be obtained secondary to pt's inabilty to answer questions. Physical Exam - Physical Exam Appears: Non-toxic, No Acute Distress, Unkempt, Other (AOB, intoxicated) Skin: Normal Color, Warm, Dry Head: Atraumatic Eye(s): bilateral: PERRL Neck: Normal ROM, No Midline Cervical Tenderness, No Step Off Deformity, Supple Cardiovascular: Rhythm Regular Respiratory: Normal Breath Sounds, No Accessory Muscle Use Gastrointestinal/Abdominal: Soft Extremity: Normal ROM, No Deformity Neurological/Psych: No Normal Speech (slurred), Eyes Open With Command, Slow To Respond With Command, Other (Moving all extremities) Gait: Unable To Assess ED Course And Treatment O2 Sat by Pulse Oximetry: 96 Pulse Ox Interpretation: Normal Reassessment Condition: Improved ED OBSERVATION Discharge: Yes Date of observation admission: 02/19/17 Time of observation admission: 22:00 - Observation admission statement Patient is being placed in observation because:: Alcohol intoxication. - Goals of Observation Goals of observation are:: Sobriety. - Progress Note Progress Note: 02/20/17 05:23 Pt was checked every 2 hours and remained stable throughout ED stay. Pt is now clinically sober. Disposition Counseled Patient/Family Regarding: Diagnosis, Need For Followup - Disposition Disposition: HOME/ ROUTINE Disposition Time: 05:23 Condition: IMPROVED - Clinical Impression Clinical Impression: Alcoholism /alcohol abuse
[2017-02-20 05:15] VITALS: BP 158/86; PULSE 92; RESP 18; TEMP 98.4
[2017-02-20 05:24] VITALS: O2SAT 96
== END 2017-02-20 05:24 | disposition home or self-care (01) ==
LOC: C.ER 21:04 → C.9OBSV 21:55
PROVIDERS: ADMIT Emergency Medicine; ATTEND Emergency Medicine
DX: F10.220 Alcohol dependence with intoxication, uncomplicated (principal); Y90.9 Presence of alcohol in blood, level not specified
CPT/HCPCS: 82948; G0378

== ENCOUNTER 2017-02-20 23:42 | Observation (INO) | payer MEDICAID ==
[2017-02-20 23:42] VITALS: BMI 29.8
--- NOTE | 2017-02-20 23:50 | C.PDOC ---
History Of Present Illness Patient was brought into the ER via EMS for public ETOH intoxication. Patient is homeless and denies any physical complaints at this time. Time Seen by Provider: 02/20/17 23:49 History Per: Patient, EMS History/Exam Limitations: no limitations Onset/Duration Of Symptoms: Hrs Current Symptoms Are (Timing): Still Present Suicide/Self Injury Attempted (Context): None Modifying Factor(s): Alcohol Severity: None Pain Scale Rating Of: 0 Associated Symptoms: denies: Depression, Suicidal Thoughts, Suicidal Plan Involuntary Hold By: None Recent travel outside of the [place]: No Past Medical History Reviewed: Historical Data, Nursing Documentation, Vital Signs Vital Signs: Last Vital Signs Temp 97.5 F L 02/20/17 23:55 Pulse 88 02/20/17 23:55 Resp 20 02/20/17 23:55 BP 132/79 02/20/17 23:55 Pulse Ox 96 02/20/17 23:55 - Medical History PMH: Anxiety, Arthritis, Bronchitis, CAD, Depression, 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 contract writer, not aware), Fractures, Gastritis, Gall Bladder Disease (s/p cholecystectomy), HTN, Post Traumatic Stress Disorder, Chronic Kidney Disease, Rheumatoid Arthritis, Seizures, Chronic Pain Surgical History: Cholecystectomy - [facility] Procedures ALCOHOL DETOXIFICATION (07/04/15) APPLICATION OF SPLINT (03/20/13) CLOSURE SKIN & SUBCUTANEOUS NEC (08/14/13) DETOXIFICATION SERVICES FOR SUBSTANCE ABUSE TREATMENT (03/22/16) ESOPHAGOGASTRODUODENOSCOPY [EGD] W/CLOSED BIOPSY (02/16/15) OTHER GROUP THERAPY (03/12/13) PHYSICAL THERAPY NEC (07/04/15) TETANUS TOXOID ADMINIST (01/19/14) Family History: States: No Known Family Hx - Social History Hx Tobacco Use: No Hx Alcohol Use: Yes Hx Substance Use: No - Immunization History Hx Tetanus Toxoid Vaccination: Yes Hx Influenza Vaccination: No Hx Pneumococcal Vaccination: Yes Review Of Systems Neurological: Positive for: Other (ETOH intoxication) Physical Exam - Physical Exam Appears: Well, Non-toxic, Other (ETOH on breath) Skin: Warm, Dry Oral Mucosa: Moist Chest: Symmetrical, No Tenderness Cardiovascular: Rhythm Regular, No Murmur Respiratory: No Rales, No Rhonchi, No Wheezing Gastrointestinal/Abdominal: Soft, No Tenderness Neurological/Psych: Oriented x3 ED Course And Treatment O2 Sat by Pulse Oximetry: 96 Pulse Ox Interpretation: Normal Reevaluation Time: 05:16 Reassessment Condition: Improved ED OBSERVATION Discharge: Yes Date of observation admission: 02/20/17 Time of observation admission: 23:53 - Observation admission statement Patient is being placed in observation because:: acute alcohol intoxication - Goals of Observation Goals of observation are:: sobriety - Progress Note Progress Note: 02/20/17 23:53 vitals stable, no complaints 02/21/17 01:55 no complaints 02/21/17 03:55 vitals stable Disposition Counseled Patient/Family Regarding: Studies Performed, Diagnosis, Need For Followup - Disposition Disposition: HOME/ ROUTINE Disposition Time: :17 Condition: FAIR - Clinical Impression Clinical Impression: Alcoholic intoxication - Scribe Statement The provider has reviewed the documentation as recorded by the Scribjosé miguel Ramirez All medical record entries made by the Rominaibjosé miguel were at my direction and personally dictated by me. I have reviewed the chart and agree that the record accurately reflects my personal performance of the history, physical exam, medical decision making, and the department course for this patient. I have also personally directed, reviewed, and agree with the discharge instructions and disposition. Decision To Admit - . Patient Diagnosis: Alcoholic intoxication
[2017-02-21 05:39] VITALS: BP 130/69; PULSE 77; RESP 16; TEMP 97.4; O2SAT 98
== END 2017-02-21 05:17 | disposition home or self-care (01) ==
LOC: C.ER 23:42 → C.9OBSV 23:52
PROVIDERS: ADMIT Emergency Medicine; ATTEND Emergency Medicine
DX: F10.120 Alcohol abuse with intoxication, uncomplicated (principal); Y90.9 Presence of alcohol in blood, level not specified; Z59.0 Homelessness
CPT/HCPCS: 82948; G0378

== ENCOUNTER 2017-02-21 20:05 | Observation (INO) | payer MEDICAID ==
[2017-02-21 20:05] VITALS: BMI 29.8
[2017-02-21 20:32] VITALS: TEMP 97
--- NOTE | 2017-02-21 20:52 | C.PDOC ---
History Of Present Illness Patient presents to the emergency room with ETOH intoxication. Patient is well known to the ED with multiple prior visits for ETOH intoxication. Patient denies any physical complaints. Time Seen by Provider: 02/21/17 20:49 Chief Complaint (Nursing): Abdominal Pain History Per: Patient History/Exam Limitations: no limitations Onset/Duration Of Symptoms: Hrs Current Symptoms Are (Timing): Still Present Severity: None Radiation Of Pain To:: None Quality Of Discomfort: denies: "Pain" Associated Symptoms: denies: Fever, Nausea, Vomiting, Diarrhea Exacerbating Factors: None Alleviating Factors: None Recent travel outside of the [place]: No Past Medical History Reviewed: Historical Data, Nursing Documentation, Vital Signs Vital Signs: Last Vital Signs Temp 97 F L 02/21/17 20:26 Pulse 89 02/21/17 23:17 Resp 18 02/21/17 23:17 BP 136/79 02/21/17 23:17 Pulse Ox 97 02/21/17 23:17 - Medical History PMH: Anxiety, Arthritis, Bronchitis, CAD, Depression, 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 jingle writer, not aware), Fractures, Gastritis, Gall Bladder Disease (s/p cholecystectomy), HTN, Post Traumatic Stress Disorder, Chronic Kidney Disease, Rheumatoid Arthritis, Seizures, Chronic Pain Surgical History: Cholecystectomy - [facility] Procedures ALCOHOL DETOXIFICATION (07/04/15) APPLICATION OF SPLINT (03/20/13) CLOSURE SKIN & SUBCUTANEOUS NEC (08/14/13) DETOXIFICATION SERVICES FOR SUBSTANCE ABUSE TREATMENT (03/22/16) ESOPHAGOGASTRODUODENOSCOPY [EGD] W/CLOSED BIOPSY (02/16/15) OTHER GROUP THERAPY (03/12/13) PHYSICAL THERAPY NEC (07/04/15) TETANUS TOXOID ADMINIST (01/19/14) Family History: States: Unknown Family Hx - Social History Hx Tobacco Use: No Hx Alcohol Use: Yes Hx Substance Use: No - Immunization History Hx Tetanus Toxoid Vaccination: Yes Hx Influenza Vaccination: Yes Hx Pneumococcal Vaccination: Yes Review Of Systems Constitutional: Positive for: Other (ETOH intoxication). Negative for: Fever, Chills Gastrointestinal: Negative for: Nausea, Vomiting, Diarrhea Physical Exam - Physical Exam Appears: Non-toxic, Other (ETOH on breath) Skin: Warm, Dry, No Rash Extremity: Normal ROM, No Tenderness Neurological/Psych: Oriented x3, Normal Speech ED Course And Treatment O2 Sat by Pulse Oximetry: 98 Pulse Ox Interpretation: Normal Reevaluation Time: 05:36 Reassessment Condition: Improved ED OBSERVATION Discharge: Yes Date of observation admission: 02/21/17 Time of observation admission: 20:51 - Observation admission statement Patient is being placed in observation because:: acute alcohol intoxication - Goals of Observation Goals of observation are:: sobriety - Progress Note Progress Note: 02/21/17 20:52 vitasl stable, no complaints 02/21/17 20:52 arousable 02/22/17 00:36 no complaints 02/22/17 02:37 vitals stable 02/22/17 04:37 ambulating unassisted to the bathroom Disposition Counseled Patient/Family Regarding: Studies Performed, Diagnosis, Need For Followup - Disposition Disposition: HOME/ ROUTINE Disposition Time: 20:50 Condition: FAIR - Clinical Impression Clinical Impression: Alcohol intoxication, Alcohol abuse with intoxication - Scribe Statement The provider has reviewed the documentation as recorded by the Jada Orozco Provider Scribe Attestation: All medical record entries made by the Jada were at my direction and personally dictated by me. I have reviewed the chart and agree that the record accurately reflects my personal performance of the history, physical exam, medical decision making, and the department course for this patient. I have also personally directed, reviewed, and agree with the discharge instructions and disposition.
[2017-02-21 21:25] VITALS: RESP 18
[2017-02-21 23:18] VITALS: BP 136/79; PULSE 89
[2017-02-22 05:37] VITALS: O2SAT 98
== END 2017-02-22 05:38 | disposition home or self-care (01) ==
LOC: C.ER 20:05 → C.9OBSV 20:50
PROVIDERS: ADMIT Emergency Medicine; ATTEND Emergency Medicine
DX: F10.120 Alcohol abuse with intoxication, uncomplicated (principal); Y90.9 Presence of alcohol in blood, level not specified
CPT/HCPCS: 99284; G0378

== ENCOUNTER 2017-02-22 21:00 | Observation (INO) | payer MEDICAID ==
[2017-02-22 21:01] VITALS: BMI 29.8
[2017-02-22 21:21] VITALS: RESP 18; TEMP 97.7
--- NOTE | 2017-02-22 22:04 | C.PDOC ---
History Of Present Illness 56 year old male brought in by EMS for public ETOH intoxication. Patient denies any physical complaints at this time. Time Seen by Provider: 02/22/17 21:06 Chief Complaint (Nursing): Substance Abuse History Per: Patient, EMS History/Exam Limitations: intoxication Onset/Duration Of Symptoms: Unknown Current Symptoms Are (Timing): Still Present Suicide/Self Injury Attempted (Context): None Modifying Factor(s): Alcohol Associated Symptoms: denies: Suicidal Thoughts, Suicidal Plan Involuntary Hold By: Emergency Physician Past Medical History Reviewed: Historical Data, Nursing Documentation, Vital Signs Vital Signs: Last Vital Signs Temp 97.7 F 02/22/17 21:19 Pulse 77 02/23/17 01:13 Resp 18 02/23/17 01:13 BP 123/74 02/23/17 01:13 Pulse Ox 96 02/23/17 01:14 - Medical History PMH: Anxiety, Arthritis, Bronchitis, CAD, Depression, 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 proposal lead writer, not aware), Fractures, Gastritis, Gall Bladder Disease (s/p cholecystectomy), HTN, Post Traumatic Stress Disorder, Chronic Kidney Disease, Rheumatoid Arthritis, Seizures, Chronic Pain Surgical History: Cholecystectomy - [facility] Procedures ALCOHOL DETOXIFICATION (07/04/15) APPLICATION OF SPLINT (03/20/13) CLOSURE SKIN & SUBCUTANEOUS NEC (08/14/13) DETOXIFICATION SERVICES FOR SUBSTANCE ABUSE TREATMENT (03/22/16) ESOPHAGOGASTRODUODENOSCOPY [EGD] W/CLOSED BIOPSY (02/16/15) OTHER GROUP THERAPY (03/12/13) PHYSICAL THERAPY NEC (07/04/15) TETANUS TOXOID ADMINIST (01/19/14) Family History: States: No Known Family Hx - Social History Hx Tobacco Use: No Hx Alcohol Use: Yes Hx Substance Use: No - Immunization History Hx Tetanus Toxoid Vaccination: Yes Hx Influenza Vaccination: Yes Hx Pneumococcal Vaccination: Yes Review Of Systems Except As Marked, All Systems Reviewed And Found Negative. Cardiovascular: Negative for: Chest Pain, Palpitations Respiratory: Negative for: Cough, Shortness of Breath Gastrointestinal: Negative for: Vomiting, Abdominal Pain Psych: Positive for: Other (alcohol intoxication) Physical Exam - Physical Exam Appears: Well, Non-toxic, Other (ETOH on breath) Skin: Normal Color, Warm, Dry Head: Atraumatic, Normacephalic Eye(s): bilateral: Normal Inspection Oral Mucosa: Moist Cardiovascular: Rhythm Regular Respiratory: Normal Breath Sounds, No Rales, No Rhonchi, No Wheezing Gastrointestinal/Abdominal: Normal Exam, Bowel Sounds, Soft, No Tenderness Neurological/Psych: Other (awake, alert, intoxicated, moving all 4 extremities spontaneously ) ED Course And Treatment O2 Sat by Pulse Oximetry: 96 (Room air) Pulse Ox Interpretation: Normal Progress Note: Accucheck ordered and reviewed. Patient placed in ED observation. 12:45am- Nurse noticed that patient has small bugs crawling on him. Permethrin ordered and patient will be cleaned/showered. Reevaluation Time: 01:15 Reassessment Condition: Improved (Patient apparently eloped from ED.) ED OBSERVATION Date of observation admission: 02/22/17 Time of observation admission: 21:12 - Observation admission statement Patient is being placed in observation because:: Acute ETOH intoxication - Goals of Observation Goals of observation are:: Sobriety Disposition - Disposition Disposition: ELOPEMENT - ER ONLY Disposition Time: 01:15 Condition: STABLE - Clinical Impression Clinical Impression: Acute alcohol intoxication - Scribe Statement The provider has reviewed the documentation as recorded by the Scribjosé miguel Ramirez All medical record entries made by the Rominaibjosé miguel were at my direction and personally dictated by me. I have reviewed the chart and agree that the record accurately reflects my personal performance of the history, physical exam, medical decision making, and the department course for this patient. I have also personally directed, reviewed, and agree with the discharge instructions and disposition.
[2017-02-23] MEDS ORDERED: Permethrin 1% Kit 59 ML BOTTLE TOP STA (00:54)
[2017-02-23 01:14] VITALS: BP 123/74; PULSE 77
[2017-02-23 01:15] VITALS: O2SAT 96
== END 2017-02-23 01:15 | disposition home or self-care (01) ==
LOC: C.ER 21:00 → C.9OBSV 21:48
PROVIDERS: ADMIT Emergency Medicine; ATTEND Emergency Medicine
DX: F10.120 Alcohol abuse with intoxication, uncomplicated (principal); Y90.9 Presence of alcohol in blood, level not specified
CPT/HCPCS: 82948; 99282; G0378

== ENCOUNTER 2017-02-24 21:12 | Observation (INO) | payer MEDICAID ==
[2017-02-24 21:13] VITALS: BMI 29.8
[2017-02-24 21:36] VITALS: TEMP 97.2
[2017-02-24] MEDS ORDERED: Permethrin 5% Cream(60 gm) TOP ONE (22:10)
--- NOTE | 2017-02-24 22:13 | C.PDOC ---
History Of Present Illness 56 y/o male brought to ED for acute alcohol intoxication. Patient is well known to ER staff with multiple similar past visits. Denies any pain, trauma, or injury. Time Seen by Provider: 02/24/17 22:08 Chief Complaint (Nursing): Substance Abuse History Per: Patient History/Exam Limitations: no limitations Onset/Duration Of Symptoms: Persistent Suicide/Self Injury Attempted (Context): None Modifying Factor(s): Alcohol Associated Symptoms: denies: Suicidal Thoughts, Suicidal Plan Recent travel outside of the [place]: No Past Medical History Reviewed: Historical Data, Nursing Documentation, Vital Signs Vital Signs: Last Vital Signs Temp 97.2 F L 02/24/17 21:35 Pulse 85 02/25/17 04:51 Resp 19 02/25/17 04:51 BP 118/76 02/25/17 04:51 Pulse Ox 99 02/25/17 04:51 - Medical History PMH: Anxiety, Arthritis, Bronchitis, CAD, Depression, 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 marketing copywriter, not aware), Fractures, Gastritis, Gall Bladder Disease (s/p cholecystectomy), HTN, Post Traumatic Stress Disorder, Chronic Kidney Disease, Rheumatoid Arthritis, Seizures, Chronic Pain Surgical History: Cholecystectomy - [facility] Procedures ALCOHOL DETOXIFICATION (07/04/15) APPLICATION OF SPLINT (03/20/13) CLOSURE SKIN & SUBCUTANEOUS NEC (08/14/13) DETOXIFICATION SERVICES FOR SUBSTANCE ABUSE TREATMENT (03/22/16) ESOPHAGOGASTRODUODENOSCOPY [EGD] W/CLOSED BIOPSY (02/16/15) OTHER GROUP THERAPY (03/12/13) PHYSICAL THERAPY NEC (07/04/15) TETANUS TOXOID ADMINIST (01/19/14) Family History: States: Unknown Family Hx - Social History Hx Tobacco Use: No Hx Alcohol Use: Yes Hx Substance Use: No - Immunization History Hx Tetanus Toxoid Vaccination: Yes Hx Influenza Vaccination: Yes Hx Pneumococcal Vaccination: Yes Review Of Systems Constitutional: Negative for: Fever, Chills Cardiovascular: Negative for: Chest Pain Respiratory: Negative for: Cough, Shortness of Breath, Wheezing Gastrointestinal: Negative for: Nausea, Vomiting, Abdominal Pain, Diarrhea Skin: Negative for: Rash Neurological: Negative for: Headache, Dizziness Physical Exam - Physical Exam Appears: Non-toxic, No Acute Distress, Other (+AOB) Skin: Warm, Dry Head: Atraumatic, Normacephalic Chest: Symmetrical Cardiovascular: Rhythm Regular, No Murmur Respiratory: No Rales, No Rhonchi, No Wheezing Gastrointestinal/Abdominal: Soft, No Tenderness Extremity: Normal ROM, Capillary Refill (< 2 sec. ) Neurological/Psych: Oriented x3, Normal Speech, Normal Cognition ED Course And Treatment O2 Sat by Pulse Oximetry: 98 (RA) Pulse Ox Interpretation: Normal Reevaluation Time: 05:21 Reassessment Condition: Improved ED OBSERVATION Discharge: Yes Date of observation admission: 02/24/17 Time of observation admission: 22:14 - Observation admission statement Patient is being placed in observation because:: acute alcohol intoxication - Goals of Observation Goals of observation are:: sobriety - Progress Note Progress Note: 02/24/17 22:14 vitals stable, no complaints 02/25/17 00:15 no complaints 02/25/17 02:15 vitals stable 02/25/17 04:17 ambulating to the bathroom unassisted Disposition Counseled Patient/Family Regarding: Studies Performed, Diagnosis, Need For Followup - Disposition Disposition: HOME/ ROUTINE Disposition Time: 23:00 Condition: FAIR - Clinical Impression Clinical Impression: Alcohol intoxication - Scribe Statement The provider has reviewed the documentation as recorded by the Jada Castro Provider Scribe Attestation: All medical record entries made by the Rominaibjosé miguel were at my direction and personally dictated by me. I have reviewed the chart and agree that the record accurately reflects my personal performance of the history, physical exam, medical decision making, and the department course for this patient. I have also personally directed, reviewed, and agree with the discharge instructions and disposition.
[2017-02-24] MEDS ORDERED: Permethrin 1% Kit 59 ML BOTTLE TOP ONE ×2 (22:15→22:30)
[2017-02-25 06:37] VITALS: BP 141/76; PULSE 81; RESP 18; O2SAT 99
== END 2017-02-25 05:22 | disposition home or self-care (01) ==
LOC: C.ER 21:12 → C.9OBSV 22:37
PROVIDERS: ADMIT Emergency Medicine; ATTEND Emergency Medicine
DX: F10.120 Alcohol abuse with intoxication, uncomplicated (principal); Y90.9 Presence of alcohol in blood, level not specified
CPT/HCPCS: 82948; G0378

== ENCOUNTER 2017-02-26 21:56 | Observation (INO) | payer MEDICAID ==
[2017-02-26 21:57] VITALS: BMI 29.8
[2017-02-26 22:02] VITALS: RESP 20
--- NOTE | 2017-02-26 22:06 | C.PDOC ---
History Of Present Illness 56 y/o male brought to ED for acute alcohol intoxication. Patient is well known to ER staff with multiple similar past visits. Denies any pain, trauma, injury, suicidal or homicidal ideation. Time Seen by Provider: 02/26/17 21:58 Chief Complaint (Nursing): Substance Abuse History Per: Patient History/Exam Limitations: no limitations Onset/Duration Of Symptoms: Hrs Current Symptoms Are (Timing): Still Present Suicide/Self Injury Attempted (Context): None Modifying Factor(s): Alcohol Severity: Mild Associated Symptoms: denies: Suicidal Thoughts, Suicidal Plan Past Medical History Reviewed: Historical Data, Nursing Documentation, Vital Signs Vital Signs: Last Vital Signs Temp 98.2 F 02/27/17 06:16 Pulse 86 02/27/17 06:16 Resp 20 02/27/17 06:16 BP 131/87 02/27/17 06:16 Pulse Ox 96 02/27/17 06:16 - Medical History PMH: Anxiety, Arthritis, Bronchitis, CAD, Depression, 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 loan underwriter, not aware), Fractures, Gastritis, Gall Bladder Disease (s/p cholecystectomy), HTN, Post Traumatic Stress Disorder, Chronic Kidney Disease, Rheumatoid Arthritis, Seizures, Chronic Pain Surgical History: Cholecystectomy - [facility] Procedures ALCOHOL DETOXIFICATION (07/04/15) APPLICATION OF SPLINT (03/20/13) CLOSURE SKIN & SUBCUTANEOUS NEC (08/14/13) DETOXIFICATION SERVICES FOR SUBSTANCE ABUSE TREATMENT (03/22/16) ESOPHAGOGASTRODUODENOSCOPY [EGD] W/CLOSED BIOPSY (02/16/15) OTHER GROUP THERAPY (03/12/13) PHYSICAL THERAPY NEC (07/04/15) TETANUS TOXOID ADMINIST (01/19/14) Family History: States: Unknown Family Hx - Social History Hx Tobacco Use: No Hx Alcohol Use: Yes Hx Substance Use: No - Immunization History Hx Tetanus Toxoid Vaccination: Yes Hx Influenza Vaccination: Yes Hx Pneumococcal Vaccination: Yes Review Of Systems Except As Marked, All Systems Reviewed And Found Negative. Constitutional: Positive for: Other (ETOH intoxication). Negative for: Fever, Chills Musculoskeletal: Negative for: Other (Trauma or injury) Psych: Negative for: Suicidal ideation Physical Exam - Physical Exam Appears: Non-toxic, No Acute Distress, Unkempt, Other ((+)AOB, ETOH intoxicated) Skin: Warm, Dry Head: Atraumatic, Normacephalic Eye(s): bilateral: Normal Inspection Cardiovascular: Rhythm Regular, No Murmur Respiratory: Normal Breath Sounds, No Rales, No Rhonchi, No Wheezing Gastrointestinal/Abdominal: Soft, No Tenderness Neurological/Psych: Oriented x3, Normal Speech, No Other (No focal deficit) ED Course And Treatment O2 Sat by Pulse Oximetry: 97 (RA) Pulse Ox Interpretation: Normal Medical Decision Making Medical Decision Making: Plans: -ED Obs -Reassess and disposition 410: pt sleeping in nad 550: pt awake ,alert, ambulatory in nad, stable for d/c. 620: pt reassessed. awake, alert ambulatory ED OBSERVATION Date of observation admission: 02/26/17 Time of observation admission: 22:14 - Observation admission statement Patient is being placed in observation because:: ETOH intoxication - Goals of Observation Goals of observation are:: Sobriety - Progress Note Progress Note: 02/27/17 02:00 pt sleeping in nad Disposition - Disposition Disposition: HOME/ ROUTINE Disposition Time: 06:00 Condition: STABLE - Clinical Impression Clinical Impression: Homelessness - Scribe Statement The provider has reviewed the documentation as recorded by the Scribe Rhoda morillo All medical record entries made by the Rominaibjosé miguel were at my direction and personally dictated by me. I have reviewed the chart and agree that the record accurately reflects my personal performance of the history, physical exam, medical decision making, and the department course for this patient. I have also personally directed, reviewed, and agree with the discharge instructions and disposition.
[2017-02-27 06:17] VITALS: BP 131/87; PULSE 86; TEMP 98.2
[2017-02-27 06:23] VITALS: O2SAT 97
== END 2017-02-27 05:40 | disposition home or self-care (01) ==
LOC: C.ER 21:56 → C.9OBSV 22:09
PROVIDERS: ADMIT Student in an Organized Health Care Education/Training Program; ATTEND Student in an Organized Health Care Education/Training Program
DX: F10.129 Alcohol abuse with intoxication, unspecified (principal); Z59.0 Homelessness
CPT/HCPCS: 82948; G0378

== ENCOUNTER 2017-02-27 22:09 | Observation (INO) | payer MEDICAID ==
[2017-02-27 22:10] VITALS: BMI 29.8
--- NOTE | 2017-02-27 22:45 | C.PDOC ---
History Of Present Illness 56 y/o male who is well known to this department presents this evening complaining of diffuse abdominal pain for an unknown duration. Denies nausea, vomiting, diarrhea, or other complaints. He has been drinking vodka all day. Of note: patient is intoxicated and is a poor historian secondary to this. Time Seen by Provider: 02/27/17 22:17 Chief Complaint (Nursing): Substance Abuse History Per: Patient History/Exam Limitations: intoxication Onset/Duration Of Symptoms: Unknown Current Symptoms Are (Timing): Still Present Modifying Factor(s): Alcohol Severity: Moderate Recent travel outside of the [place]: No Additional History Per: Patient Past Medical History Vital Signs: Last Vital Signs Temp 98.6 F 02/27/17 22:13 Pulse 80 02/27/17 22:13 Resp 18 02/27/17 22:13 BP 153/86 H 02/27/17 22:13 Pulse Ox 98 02/28/17 00:04 - Medical History PMH: Anxiety, Arthritis, Bronchitis, CAD, Depression, 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 speech writer, not aware), Fractures, Gastritis, Gall Bladder Disease (s/p cholecystectomy), HTN, Post Traumatic Stress Disorder, Chronic Kidney Disease, Rheumatoid Arthritis, Seizures, Chronic Pain Surgical History: Cholecystectomy - [facility] Procedures ALCOHOL DETOXIFICATION (07/04/15) APPLICATION OF SPLINT (03/20/13) CLOSURE SKIN & SUBCUTANEOUS NEC (08/14/13) DETOXIFICATION SERVICES FOR SUBSTANCE ABUSE TREATMENT (03/22/16) ESOPHAGOGASTRODUODENOSCOPY [EGD] W/CLOSED BIOPSY (02/16/15) OTHER GROUP THERAPY (03/12/13) PHYSICAL THERAPY NEC (07/04/15) TETANUS TOXOID ADMINIST (01/19/14) Family History: States: Unknown Family Hx - Social History Hx Tobacco Use: No Hx Alcohol Use: Yes Hx Substance Use: No - Immunization History Hx Tetanus Toxoid Vaccination: Yes Hx Influenza Vaccination: Yes Hx Pneumococcal Vaccination: Yes Review Of Systems Review Of Systems: ROS cannot be obtained secondary to pt's inabilty to answer questions. Gastrointestinal: Positive for: Abdominal Pain Physical Exam - Physical Exam Appears: Well, No Acute Distress, Other (intoxicated) Skin: Normal Color, Warm, Dry Eye(s): bilateral: Normal Inspection, PERRL, EOMI Nose: Normal Throat: Normal Neck: Normal Cardiovascular: Rhythm Regular Respiratory: Normal Breath Sounds Gastrointestinal/Abdominal: Tenderness (epigastric and RUQ) Back: Normal Inspection Extremity: Normal ROM Neurological/Psych: Other (intoxicated) ED Course And Treatment - Laboratory Results Result Diagrams: 02/27/17 23:15 Lab Interpretation: No Acute Changes (CMP hemolyzed) O2 Sat by Pulse Oximetry: 98 (RA) Pulse Ox Interpretation: Normal Reevaluation Time: 00:03 Reassessment Condition: Improved Medical Decision Making Medical Decision Making: Initial Plan: - Labs - Analgesia - Recheck Disposition - Disposition Disposition Time: 00:49 Condition: IMPROVED - Clinical Impression Clinical Impression: Alcohol intoxication - Scribe Statement The provider has reviewed the documentation as recorded by the Scribe Fransisca Herrera Physician Patient Turnover Patient Signed Over To: Valeriano Stuart Handoff Comments: pendig sobriety
[2017-02-27 23:29] LABS: BASO % 0.2 % (0.0-2.0); EOS # 0.2 K/uL (0.0-0.7); EOS % 5.2 % (0.0-4.0); HEMATOCRIT 35.2 % (35.0-51.0); LYMPH # 1.5 K/uL (1.0-4.3); LYMPH % 40.1 % (20.0-40.0); MEAN CORPUSCULAR HEMOGLOBIN 36.1 pg (27.0-31.0); MEAN CORPUSCULAR HGB CONC 34.2 g/dL (33.0-37.0); MEAN PLATELET VOLUME 8.2 fL (7.2-11.7); MONO # 0.6 K/uL (0.0-0.8); MONO % 16.9 % (0.0-10.0); NRBC % 0.3 % (0.0-2.0); RED CELL DISTRIBUTION WIDTH 15.4 % (11.5-14.5); WHITE BLOOD COUNT 3.7 K/uL (4.8-10.8)
[2017-02-28 00:57] LABS: MEAN CELL VOLUME 105.7 fL (80.0-94.0)
[2017-02-28 01:39] VITALS: RESP 16
[2017-02-28 04:58] VITALS: BP 115/72; PULSE 88; TEMP 97.9; O2SAT 98
== END 2017-02-28 05:29 | disposition home or self-care (01) ==
LOC: SUPCPDRO 22:09 → C.ER 22:09 → C.9OBSV 22:25
PROVIDERS: ADMIT Emergency Medicine; ATTEND Emergency Medicine
DX: F10.229 Alcohol dependence with intoxication, unspecified (principal); I10 Essential (primary) hypertension; M06.9 Rheumatoid arthritis, unspecified; F41.8 Other specified anxiety disorders; I25.10 Atherosclerotic heart disease of native coronary artery without angina pectoris
CPT/HCPCS: 36415; 82948; 85025; 99284; G0378

== ENCOUNTER 2017-02-28 20:36 | Emergency (ER) | payer MEDICAID ==
[2017-02-28 20:36] VITALS: BMI 29.8
== END 2017-02-28 20:59 | disposition left against medical advice (07) ==
LOC: C.ER 20:36
DX: F19.10 Other psychoactive substance abuse, uncomplicated (principal); Z02.9 Encounter for administrative examinations, unspecified

== ENCOUNTER 2017-03-01 20:15 | Observation (INO) | payer MEDICAID ==
[2017-03-01 20:16] VITALS: BMI 29.8
--- NOTE | 2017-03-01 21:57 | C.PDOC ---
History Of Present Illness Patient presents to the ER with acute ETOH intoxication. Patient is well known to the ER for chronic ETOH intoxication. Denies any physical complaints at this time. Time Seen by Provider: 03/01/17 21:53 Chief Complaint (Nursing): Substance Abuse History Per: Patient History/Exam Limitations: no limitations Onset/Duration Of Symptoms: Hrs Current Symptoms Are (Timing): Still Present Suicide/Self Injury Attempted (Context): None Modifying Factor(s): Alcohol Severity: None Pain Scale Rating Of: 0 Associated Symptoms: denies: Depression, Suicidal Thoughts, Suicidal Plan Involuntary Hold By: None Recent travel outside of the [place]: No Past Medical History Reviewed: Historical Data, Nursing Documentation, Vital Signs Vital Signs: Last Vital Signs Temp 97.7 F 03/02/17 01:38 Pulse 83 03/02/17 01:38 Resp 20 03/02/17 01:38 BP 119/75 03/02/17 01:38 Pulse Ox 95 03/02/17 01:38 - Medical History PMH: Anxiety, Arthritis, Bronchitis, CAD, Depression, 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 proposal writer, not aware), Fractures, Gastritis, Gall Bladder Disease (s/p cholecystectomy), HTN, Post Traumatic Stress Disorder, Chronic Kidney Disease, Rheumatoid Arthritis, Seizures, Chronic Pain Surgical History: Cholecystectomy - [facility] Procedures ALCOHOL DETOXIFICATION (07/04/15) APPLICATION OF SPLINT (03/20/13) CLOSURE SKIN & SUBCUTANEOUS NEC (08/14/13) DETOXIFICATION SERVICES FOR SUBSTANCE ABUSE TREATMENT (03/22/16) ESOPHAGOGASTRODUODENOSCOPY [EGD] W/CLOSED BIOPSY (02/16/15) OTHER GROUP THERAPY (03/12/13) PHYSICAL THERAPY NEC (07/04/15) TETANUS TOXOID ADMINIST (01/19/14) Family History: States: No Known Family Hx - Social History Hx Tobacco Use: No Hx Alcohol Use: Yes Hx Substance Use: No - Immunization History Hx Tetanus Toxoid Vaccination: Yes Hx Influenza Vaccination: Yes Hx Pneumococcal Vaccination: Yes Review Of Systems Constitutional: Negative for: Fever, Chills Gastrointestinal: Negative for: Nausea, Vomiting Neurological: Positive for: Other (ETOH intoxication) Physical Exam - Physical Exam Appears: Non-toxic, Other (ETOH on breath) Skin: Warm, Dry Oral Mucosa: Moist Chest: Symmetrical, No Tenderness Cardiovascular: Rhythm Regular, No Murmur Respiratory: No Rales, No Rhonchi, No Wheezing Gastrointestinal/Abdominal: Soft, No Tenderness Neurological/Psych: Oriented x3 ED Course And Treatment O2 Sat by Pulse Oximetry: 97 (Room air) ED OBSERVATION Discharge: Yes Date of observation admission: 03/01/17 Time of observation admission: 21:55 - Observation admission statement Patient is being placed in observation because:: acute alcohol intox - Goals of Observation Goals of observation are:: sobriety - Progress Note Progress Note: 03/01/17 21:56 vitals stable 03/01/17 23:56 no complaints Disposition Counseled Patient/Family Regarding: Studies Performed, Diagnosis, Need For Followup - Disposition Disposition: HOME/ ROUTINE Disposition Time: 21:55 Condition: FAIR - Clinical Impression Clinical Impression: Alcohol intoxication, Alcohol abuse with intoxication - Scribe Statement The provider has reviewed the documentation as recorded by the Scribjosé miguel Ramirez All medical record entries made by the Rominaibjosé miguel were at my direction and personally dictated by me. I have reviewed the chart and agree that the record accurately reflects my personal performance of the history, physical exam, medical decision making, and the department course for this patient. I have also personally directed, reviewed, and agree with the discharge instructions and disposition.
[2017-03-02 01:44] VITALS: BP 119/75
[2017-03-02 06:08] VITALS: PULSE 74; RESP 16; TEMP 97.8; O2SAT 96
== END 2017-03-02 05:44 | disposition home or self-care (01) ==
LOC: C.ER 20:15 → C.9OBSV 21:57
PROVIDERS: ADMIT Emergency Medicine; ATTEND Emergency Medicine
DX: F10.229 Alcohol dependence with intoxication, unspecified (principal); F41.8 Other specified anxiety disorders; I25.10 Atherosclerotic heart disease of native coronary artery without angina pectoris; E11.22 Type 2 diabetes mellitus with diabetic chronic kidney disease; I12.9 Hypertensive chronic kidney disease with stage 1 through stage 4 chronic kidney disease, or unspecified chronic kidney disease; N18.9 Chronic kidney disease, unspecified
CPT/HCPCS: 82948; 99284; G0378

== ENCOUNTER 2017-03-02 21:04 | Observation (INO) | payer MEDICAID ==
[2017-03-02 21:04] VITALS: BMI 29.8
[2017-03-02 21:31] VITALS: TEMP 98.2
--- NOTE | 2017-03-02 23:02 | C.PDOC ---
History Of Present Illness Patient presents to the ER with acute ETOH intoxication. Patient is well known to the ER for chronic ETOH intoxication. Denies any physical complaints at this time. Time Seen by Provider: 03/02/17 22:03 Chief Complaint (Nursing): Substance Abuse History Per: Patient History/Exam Limitations: no limitations Onset/Duration Of Symptoms: Hrs Current Symptoms Are (Timing): Still Present Suicide/Self Injury Attempted (Context): None Modifying Factor(s): Alcohol Severity: Mild Pain Scale Rating Of: 0 Associated Symptoms: denies: Suicidal Thoughts, Suicidal Plan Involuntary Hold By: None Additional History Per: Patient Past Medical History Reviewed: Historical Data, Nursing Documentation, Vital Signs Vital Signs: Last Vital Signs Temp 98.2 F 03/03/17 02:00 Pulse 87 03/03/17 04:00 Resp 16 03/03/17 04:00 BP 142/81 03/03/17 04:00 Pulse Ox 100 03/03/17 04:00 - Medical History PMH: Anxiety, Arthritis, Bronchitis, CAD, Depression, 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 writer producer, not aware), Fractures, Gastritis, Gall Bladder Disease (s/p cholecystectomy), HTN, Post Traumatic Stress Disorder, Chronic Kidney Disease, Rheumatoid Arthritis, Seizures, Chronic Pain Surgical History: Cholecystectomy - [facility] Procedures ALCOHOL DETOXIFICATION (07/04/15) APPLICATION OF SPLINT (03/20/13) CLOSURE SKIN & SUBCUTANEOUS NEC (08/14/13) DETOXIFICATION SERVICES FOR SUBSTANCE ABUSE TREATMENT (03/22/16) ESOPHAGOGASTRODUODENOSCOPY [EGD] W/CLOSED BIOPSY (02/16/15) OTHER GROUP THERAPY (03/12/13) PHYSICAL THERAPY NEC (07/04/15) TETANUS TOXOID ADMINIST (01/19/14) Family History: States: Unknown Family Hx - Social History Hx Tobacco Use: No Hx Alcohol Use: Yes Hx Substance Use: No - Immunization History Hx Tetanus Toxoid Vaccination: Yes Hx Influenza Vaccination: Yes Hx Pneumococcal Vaccination: Yes Review Of Systems Except As Marked, All Systems Reviewed And Found Negative. Constitutional: Positive for: Other (ETOH intoxicated) Gastrointestinal: Negative for: Abdominal Pain Psych: Negative for: Suicidal ideation Physical Exam - Physical Exam Appears: Non-toxic, No Acute Distress, Other (+AOB, ETOH intoxicated) Skin: Warm, Dry Head: Atraumatic, Normacephalic Cardiovascular: Rhythm Regular, No Murmur Respiratory: Normal Breath Sounds, No Rales, No Rhonchi, No Wheezing Gastrointestinal/Abdominal: Soft, No Tenderness Neurological/Psych: Oriented x3 ED Course And Treatment O2 Sat by Pulse Oximetry: 98 (RA) Pulse Ox Interpretation: Normal Medical Decision Making Medical Decision Making: Plans: -Reassess and disposition On reassessment, patient is resting comfortably, and is in no acute distress. Patient was instructed to follow up with physician/clinic in 1-2 days for further evaluation. Disposition Counseled Patient/Family Regarding: Diagnosis - Disposition Disposition: HOME/ ROUTINE Disposition Time: 06:00 Condition: STABLE - POA Present On Arrival: None - Clinical Impression Clinical Impression: Alcohol intoxication - Scribe Statement The provider has reviewed the documentation as recorded by the Scribe Rhoda morillo All medical record entries made by the Rominaibe were at my direction and personally dictated by me. I have reviewed the chart and agree that the record accurately reflects my personal performance of the history, physical exam, medical decision making, and the department course for this patient. I have also personally directed, reviewed, and agree with the discharge instructions and disposition.
[2017-03-03 01:18] VITALS: RESP 16
[2017-03-03 04:00] VITALS: BP 142/81; PULSE 87
[2017-03-03 06:01] VITALS: O2SAT 98
== END 2017-03-03 05:30 | disposition home or self-care (01) ==
LOC: C.ER 21:04 → C.9OBSV 03-03 04:13
PROVIDERS: ADMIT Emergency Medicine; ATTEND Emergency Medicine
DX: F10.229 Alcohol dependence with intoxication, unspecified (principal); F41.8 Other specified anxiety disorders; I25.10 Atherosclerotic heart disease of native coronary artery without angina pectoris; E11.9 Type 2 diabetes mellitus without complications; I10 Essential (primary) hypertension; F43.10 Post-traumatic stress disorder, unspecified
CPT/HCPCS: 99283; G0378

== ENCOUNTER 2017-03-03 19:26 | Observation (INO) | payer MEDICAID ==
[2017-03-03 19:27] VITALS: BMI 29.8
--- NOTE | 2017-03-03 19:38 | C.PDOC ---
History Of Present Illness 56 y/o male, well known to ER staff with multiple prior visits, presents to ER for alcohol intoxication. Pt with known history of alcohol abuse. Denies any medical complaints, trauma, or pain. Time Seen by Provider: 03/03/17 19:38 Chief Complaint (Nursing): Substance Abuse History Per: Patient History/Exam Limitations: no limitations Onset/Duration Of Symptoms: Persistent Current Symptoms Are (Timing): Still Present Modifying Factor(s): Alcohol Associated Symptoms: denies: Suicidal Thoughts, Suicidal Plan Recent travel outside of the [place]: No Past Medical History Reviewed: Historical Data, Nursing Documentation, Vital Signs Vital Signs: Last Vital Signs Temp 97.1 F L 03/04/17 06:32 Pulse 89 03/04/17 06:32 Resp 20 03/04/17 06:32 BP 141/77 03/04/17 06:32 Pulse Ox 99 03/04/17 06:32 - Medical History PMH: Anxiety, Arthritis, Bronchitis, CAD, Depression, 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, not aware), Fractures, Gastritis, Gall Bladder Disease (s/p cholecystectomy), HTN, Post Traumatic Stress Disorder, Chronic Kidney Disease, Rheumatoid Arthritis, Seizures, Chronic Pain Surgical History: Cholecystectomy - [facility] Procedures ALCOHOL DETOXIFICATION (07/04/15) APPLICATION OF SPLINT (03/20/13) CLOSURE SKIN & SUBCUTANEOUS NEC (08/14/13) DETOXIFICATION SERVICES FOR SUBSTANCE ABUSE TREATMENT (03/22/16) ESOPHAGOGASTRODUODENOSCOPY [EGD] W/CLOSED BIOPSY (02/16/15) OTHER GROUP THERAPY (03/12/13) PHYSICAL THERAPY NEC (07/04/15) TETANUS TOXOID ADMINIST (01/19/14) Family History: States: Unknown Family Hx - Social History Hx Tobacco Use: No Hx Alcohol Use: Yes Hx Substance Use: No - Immunization History Hx Tetanus Toxoid Vaccination: Yes Hx Influenza Vaccination: Yes Hx Pneumococcal Vaccination: Yes Review Of Systems Except As Marked, All Systems Reviewed And Found Negative. Constitutional: Negative for: Fever, Chills Cardiovascular: Negative for: Chest Pain Respiratory: Negative for: Cough Gastrointestinal: Negative for: Nausea, Vomiting Skin: Negative for: Rash Psych: Negative for: Withdrawal Physical Exam - Physical Exam Appears: Non-toxic, No Acute Distress, Other (+AOB) Skin: Normal Color, Warm, Dry Head: Atraumatic, Normacephalic Chest: Symmetrical Cardiovascular: Rhythm Regular Respiratory: Normal Breath Sounds, No Rales, No Rhonchi, No Wheezing Gastrointestinal/Abdominal: Soft, No Tenderness Back: Normal Inspection Extremity: Normal ROM, Capillary Refill (< 2 sec.) Neurological/Psych: Oriented x3, Normal Speech, Normal Cognition ED Course And Treatment O2 Sat by Pulse Oximetry: 98 (RA) Pulse Ox Interpretation: Normal ED OBSERVATION Discharge: Yes Date of observation admission: 03/03/17 Time of observation admission: 19:30 - Observation admission statement Patient is being placed in observation because:: intox - Goals of Observation Goals of observation are:: SOBRIETY - Progress Note Progress Note: 03/04/17 0600 clear speech and thought steady gait Disposition Counseled Patient/Family Regarding: Diagnosis, Need For Followup - Disposition Disposition: HOME/ ROUTINE Disposition Time: 18:00 Condition: IMPROVED - Clinical Impression Clinical Impression: Acute alcohol intoxication - Scribe Statement The provider has reviewed the documentation as recorded by the Jada Castro Provider Scribe Attestation: All medical record entries made by the Jada were at my direction and personally dictated by me. I have reviewed the chart and agree that the record accurately reflects my personal performance of the history, physical exam, medical decision making, and the department course for this patient. I have also personally directed, reviewed, and agree with the discharge instructions and disposition.
[2017-03-04 06:33] VITALS: BP 141/77; PULSE 89; RESP 20; TEMP 97.1
[2017-03-06 10:33] VITALS: O2SAT 98
== END 2017-03-04 05:52 | disposition home or self-care (01) ==
LOC: C.ER 19:26 → C.9OBSV 19:30
PROVIDERS: ADMIT Emergency Medicine; ATTEND Emergency Medicine
DX: F10.229 Alcohol dependence with intoxication, unspecified (principal); E11.22 Type 2 diabetes mellitus with diabetic chronic kidney disease; I12.9 Hypertensive chronic kidney disease with stage 1 through stage 4 chronic kidney disease, or unspecified chronic kidney disease; N18.9 Chronic kidney disease, unspecified; I25.10 Atherosclerotic heart disease of native coronary artery without angina pectoris; I10 Essential (primary) hypertension; M06.9 Rheumatoid arthritis, unspecified; R56.9 Unspecified convulsions
CPT/HCPCS: 82948; 99285; G0378

== ENCOUNTER → 2017-03-05 21:37 | Emergency (ER) | payer MEDICAID ==
[2017-03-05 21:39] VITALS: BMI 29.8
== END | disposition left against medical advice (07) ==
LOC: C.ER 21:37
DX: F19.10 Other psychoactive substance abuse, uncomplicated (principal); Z02.9 Encounter for administrative examinations, unspecified

== ENCOUNTER 2017-03-07 23:25 | Emergency (ER) | payer MEDICAID ==
[2017-03-07 23:26] VITALS: BMI 29.8
[2017-03-07 23:35] VITALS: RESP 20; O2SAT 96
--- NOTE | 2017-03-08 00:15 | C.PDOC ---
History Of Present Illness 56 year old patient presents to the ED for acute alcohol intoxication. Patient is well known in the ED for this complaint. Patient admits to drinking alcohol prior to arrival. Patient denies fever, chest pain, shortness of breath, nausea , vomiting, or any other complaints at this time. Time Seen by Provider: 03/07/17 23:49 Chief Complaint (Nursing): Substance Abuse History Per: Patient History/Exam Limitations: intoxication Onset/Duration Of Symptoms: Other Suicide/Self Injury Attempted (Context): None Modifying Factor(s): Alcohol Severity: None Pain Scale Rating Of: 0 Recent travel outside of the [place]: No Additional History Per: Prior Records Past Medical History Reviewed: Historical Data, Nursing Documentation, Vital Signs Vital Signs: Last Vital Signs Temp 97.8 F 03/08/17 06:48 Pulse 88 03/08/17 06:48 Resp 20 03/08/17 06:48 BP 131/77 03/08/17 06:48 Pulse Ox 96 03/08/17 06:48 - Medical History PMH: Anxiety, Arthritis, Bronchitis, CAD, Depression, 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 aware), Fractures, Gastritis, Gall Bladder Disease (s/p cholecystectomy), HTN, Post Traumatic Stress Disorder, Chronic Kidney Disease, Rheumatoid Arthritis, Seizures, Chronic Pain Surgical History: Cholecystectomy - [facility] Procedures ALCOHOL DETOXIFICATION (07/04/15) APPLICATION OF SPLINT (03/20/13) CLOSURE SKIN & SUBCUTANEOUS NEC (08/14/13) DETOXIFICATION SERVICES FOR SUBSTANCE ABUSE TREATMENT (03/22/16) ESOPHAGOGASTRODUODENOSCOPY [EGD] W/CLOSED BIOPSY (02/16/15) OTHER GROUP THERAPY (03/12/13) PHYSICAL THERAPY NEC (07/04/15) TETANUS TOXOID ADMINIST (01/19/14) Family History: States: Unknown Family Hx - Social History Hx Tobacco Use: No Hx Alcohol Use: Yes Hx Substance Use: No - Immunization History Hx Tetanus Toxoid Vaccination: Yes Hx Influenza Vaccination: Yes Hx Pneumococcal Vaccination: Yes Review Of Systems Except As Marked, All Systems Reviewed And Found Negative. Constitutional: Negative for: Fever Cardiovascular: Negative for: Chest Pain Respiratory: Negative for: Shortness of Breath Gastrointestinal: Negative for: Nausea, Vomiting Physical Exam - Physical Exam Appears: Non-toxic, No Acute Distress, Other (intoxicated) Skin: Warm, Dry Head: Atraumatic, Normacephalic Neck: Normal ROM, Supple Chest: Symmetrical Cardiovascular: Rhythm Regular Respiratory: Normal Breath Sounds, No Rales, No Rhonchi, No Wheezing Extremity: Normal ROM Neurological/Psych: Oriented x3 ED Course And Treatment O2 Sat by Pulse Oximetry: 96 (room air) Pulse Ox Interpretation: Normal ED OBSERVATION Date of observation admission: 03/08/17 Time of observation admission: 23:49 - Observation admission statement Patient is being placed in observation because:: acute alcohol intoxication - Goals of Observation Goals of observation are:: sobriety Disposition Counseled Patient/Family Regarding: Diagnosis - Disposition Referrals: [facility] [Outside] Disposition: HOME/ ROUTINE Disposition Time: 05:30 Condition: STABLE - POA Present On Arrival: None - Clinical Impression Clinical Impression: Acute alcohol intoxication - Scribe Statement The provider has reviewed the documentation as recorded by the Scribe Bing Fajardo Provider Attestation: All medical record entries made by the Scribe were at my direction and personally dictated by me. I have reviewed the chart and agree that the record accurately reflects my personal performance of the history, physical exam, medical decision making, and the department course for this patient. I have also personally directed, reviewed, and agree with the discharge instructions and disposition.
[2017-03-08 07:21] VITALS: BP 131/77; PULSE 88; TEMP 97.8
== END 2017-03-08 06:54 | disposition home or self-care (01) ==
LOC: C.ER 23:25
DX: F10.129 Alcohol abuse with intoxication, unspecified (principal); Y90.9 Presence of alcohol in blood, level not specified

== ENCOUNTER 2017-03-09 23:13 | Observation (INO) | payer MEDICAID ==
[2017-03-09 23:13] VITALS: BMI 29.8
--- NOTE | 2017-03-09 23:14 | C.PDOC ---
History Of Present Illness Patient was brought to the ED by EMS after being found intoxicated. Patient has EtOH on breath and denies any diarrhea, fever, or other complaints at this time. Time Seen by Provider: 03/09/17 23:14 History/Exam Limitations: no limitations Onset/Duration Of Symptoms: Hrs Current Symptoms Are (Timing): Still Present Suicide/Self Injury Attempted (Context): None Modifying Factor(s): Alcohol Associated Symptoms: denies: Anger, Agitation, Suicidal Thoughts, Suicidal Plan Involuntary Hold By: None Recent travel outside of the [place]: No Additional History Per: EMS Past Medical History Reviewed: Historical Data, Nursing Documentation, Vital Signs Vital Signs: Last Vital Signs Temp 97.4 F L 03/09/17 23:24 Pulse 91 H 03/09/17 23:24 Resp 18 03/09/17 23:24 BP 129/83 03/09/17 23:24 Pulse Ox 97 03/09/17 23:24 - Medical History PMH: Anxiety, Arthritis, Bronchitis, CAD, Depression, 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 music writer, not aware), Fractures, Gastritis, Gall Bladder Disease (s/p cholecystectomy), HTN, Post Traumatic Stress Disorder, Chronic Kidney Disease, Rheumatoid Arthritis, Seizures, Chronic Pain Surgical History: Cholecystectomy - [facility] Procedures ALCOHOL DETOXIFICATION (07/04/15) APPLICATION OF SPLINT (03/20/13) CLOSURE SKIN & SUBCUTANEOUS NEC (08/14/13) DETOXIFICATION SERVICES FOR SUBSTANCE ABUSE TREATMENT (03/22/16) ESOPHAGOGASTRODUODENOSCOPY [EGD] W/CLOSED BIOPSY (02/16/15) OTHER GROUP THERAPY (03/12/13) PHYSICAL THERAPY NEC (07/04/15) TETANUS TOXOID ADMINIST (01/19/14) Family History: States: Unknown Family Hx - Social History Hx Tobacco Use: No Hx Alcohol Use: Yes Hx Substance Use: No - Immunization History Hx Tetanus Toxoid Vaccination: Yes Hx Influenza Vaccination: Yes Hx Pneumococcal Vaccination: Yes Review Of Systems Constitutional: Negative for: Fever, Chills, Sweats Cardiovascular: Negative for: Chest Pain, Palpitations Respiratory: Negative for: Cough, Shortness of Breath Gastrointestinal: Negative for: Nausea, Vomiting, Abdominal Pain, Diarrhea Physical Exam - Physical Exam Appears: Non-toxic, No Acute Distress, Other (EtOH on breath ) Skin: Warm, Dry Head: Atraumatic Neck: Supple Cardiovascular: Rhythm Regular Respiratory: No Rales, No Rhonchi, No Stridor, No Wheezing Gastrointestinal/Abdominal: Soft, No Tenderness, No Distention, No Guarding, No Rebound Extremity: Normal ROM, No Tenderness Neurological/Psych: Oriented x3 ED Course And Treatment O2 Sat by Pulse Oximetry: 97 Pulse Ox Interpretation: Normal Reevaluation Time: 04:56 Reassessment Condition: Improved ED OBSERVATION Discharge: Yes Date of observation admission: 03/09/17 Time of observation admission: 23:31 - Observation admission statement Patient is being placed in observation because:: acute alcohol intoxication - Goals of Observation Goals of observation are:: sobriety - Progress Note Progress Note: 03/09/17 23:31 vitals stable, no complaints 03/10/17 01:36 vitals stable 03/10/17 03:37 arousable Disposition Counseled Patient/Family Regarding: Studies Performed, Diagnosis, Need For Followup - Disposition Disposition: HOME/ ROUTINE Disposition Time: 23:14 Condition: FAIR - Clinical Impression Clinical Impression: Alcohol abuse with intoxication, Chronic alcoholism - Scribe Statement Tiffany Noel All medical record entries made by the Scribe were at my direction and personally dictated by me. I have reviewed the chart and agree that the record accurately reflects my personal performance of the history, physical exam, medical decision making, and the department course for this patient. I have also personally directed, reviewed, and agree with the discharge instructions and disposition.
[2017-03-09 23:26] VITALS: TEMP 97.4
[2017-03-10 06:01] VITALS: BP 133/84; PULSE 83; RESP 16; O2SAT 96
== END 2017-03-10 05:00 | disposition home or self-care (01) ==
LOC: C.ER 23:13 → C.9OBSV 23:30
PROVIDERS: ADMIT Emergency Medicine; ATTEND Emergency Medicine
DX: F10.220 Alcohol dependence with intoxication, uncomplicated (principal); Y90.9 Presence of alcohol in blood, level not specified; E11.9 Type 2 diabetes mellitus without complications
CPT/HCPCS: G0378 ×2

== ENCOUNTER 2017-03-12 22:52 | Emergency (ER) | payer MEDICAID ==
[2017-03-12 22:52] VITALS: BMI 29.8
== END 2017-03-12 22:57 | disposition left against medical advice (07) ==
LOC: C.ER 22:52
DX: Z02.89 Encounter for other administrative examinations (principal); F19.10 Other psychoactive substance abuse, uncomplicated

== ENCOUNTER 2017-03-15 23:50 | Observation (INO) | payer MEDICAID ==
[2017-03-15 23:51] VITALS: BMI 29.8
--- NOTE | 2017-03-15 23:59 | C.PDOC ---
History Of Present Illness Patient is a 56 year old male brought in by EMS for acute ETOH intoxication. Denies any physical complaints at this time. Chief Complaint (Nursing): Substance Abuse History Per: Patient History/Exam Limitations: no limitations Onset/Duration Of Symptoms: Hrs Current Symptoms Are (Timing): Still Present Suicide/Self Injury Attempted (Context): None Modifying Factor(s): Alcohol Associated Symptoms: denies: Depression, Suicidal Thoughts, Suicidal Plan Involuntary Hold By: None Recent travel outside of the [place]: No Past Medical History Reviewed: Historical Data, Nursing Documentation, Vital Signs Vital Signs: Last Vital Signs Temp 97.7 F 03/15/17 23:53 Pulse 83 03/16/17 04:00 Resp 20 03/16/17 04:00 BP 134/65 03/16/17 04:00 Pulse Ox 97 03/16/17 04:00 - Medical History PMH: Anxiety, Arthritis, Bronchitis, CAD, Depression, 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 signwriter, not aware), Fractures, Gastritis, Gall Bladder Disease (s/p cholecystectomy), HTN, Post Traumatic Stress Disorder, Chronic Kidney Disease, Rheumatoid Arthritis, Seizures, Chronic Pain Surgical History: Cholecystectomy - [facility] Procedures ALCOHOL DETOXIFICATION (07/04/15) APPLICATION OF SPLINT (03/20/13) CLOSURE SKIN & SUBCUTANEOUS NEC (08/14/13) DETOXIFICATION SERVICES FOR SUBSTANCE ABUSE TREATMENT (03/22/16) ESOPHAGOGASTRODUODENOSCOPY [EGD] W/CLOSED BIOPSY (02/16/15) OTHER GROUP THERAPY (03/12/13) PHYSICAL THERAPY NEC (07/04/15) TETANUS TOXOID ADMINIST (01/19/14) Family History: States: Unknown Family Hx - Social History Hx Tobacco Use: No Hx Alcohol Use: Yes Hx Substance Use: No - Immunization History Hx Tetanus Toxoid Vaccination: Yes Hx Influenza Vaccination: Yes Hx Pneumococcal Vaccination: Yes Review Of Systems Constitutional: Negative for: Fever, Chills Gastrointestinal: Negative for: Nausea, Vomiting, Diarrhea Neurological: Positive for: Other (ETOH intoxication) Physical Exam - Physical Exam Appears: Non-toxic, No Acute Distress, Other (ETOH on breath) Skin: Normal Color, Warm, Dry Head: Atraumatic, Normacephalic Eye(s): bilateral: Normal Inspection, EOMI Oral Mucosa: Moist Chest: Symmetrical, No Tenderness Cardiovascular: Rhythm Regular, No Murmur Respiratory: Normal Breath Sounds, No Rales, No Rhonchi, No Wheezing Gastrointestinal/Abdominal: Soft, No Tenderness Neurological/Psych: Oriented x3, Normal Speech, Normal Cognition ED OBSERVATION Date of observation admission: 03/16/17 Time of observation admission: 00:03 - Observation admission statement Patient is being placed in observation because:: Acute ETOH intoxication - Goals of Observation Goals of observation are:: Sobriety Disposition Counseled Patient/Family Regarding: Diagnosis - Disposition Disposition: HOME/ ROUTINE Disposition Time: 05:39 Condition: STABLE - POA Present On Arrival: None - Clinical Impression Clinical Impression: Alcohol intoxication - Scribe Statement The provider has reviewed the documentation as recorded by the Scribe Fabián Ramirez All medical record entries made by the Rominaibjosé miguel were at my direction and personally dictated by me. I have reviewed the chart and agree that the record accurately reflects my personal performance of the history, physical exam, medical decision making, and the department course for this patient. I have also personally directed, reviewed, and agree with the discharge instructions and disposition.
[2017-03-16] VITALS: RESP 20; TEMP 97.7
[2017-03-16 05:50] VITALS: BP 136/70; PULSE 90; O2SAT 99
== END 2017-03-16 04:49 | disposition home or self-care (01) ==
LOC: C.ER 23:50 → C.9OBSV 03-16 03:22
PROVIDERS: ADMIT Emergency Medicine; ATTEND Emergency Medicine
DX: F10.120 Alcohol abuse with intoxication, uncomplicated (principal); I25.10 Atherosclerotic heart disease of native coronary artery without angina pectoris; E11.9 Type 2 diabetes mellitus without complications; M19.90 Unspecified osteoarthritis, unspecified site; J40 Bronchitis, not specified as acute or chronic; F41.9 Anxiety disorder, unspecified; F32.9 Major depressive disorder, single episode, unspecified
CPT/HCPCS: 82948; 99284; G0378

== ENCOUNTER 2017-03-23 22:02 | Emergency (ER) | payer MEDICAID, OTHER ==
[2017-03-23 22:05] VITALS: BP 136/83; PULSE 100; RESP 18; TEMP 98; O2SAT 95
--- NOTE | 2017-03-23 22:11 | C.PDOC ---
History Of Present Illness Patient presents to the ED inebriated and seeking a place to stay. Upon exam, patient was found to have bugs and was informed he would be showered. Patient refused the shower and eloped. Time Seen by Provider: 03/23/17 22:10 History Per: Patient History/Exam Limitations: no limitations Onset/Duration Of Symptoms: Hrs Current Symptoms Are (Timing): Still Present Suicide/Self Injury Attempted (Context): None Pain Scale Rating Of: 0 Involuntary Hold By: None Recent travel outside of the [place]: No Past Medical History Reviewed: Historical Data, Nursing Documentation, Vital Signs Vital Signs: Last Vital Signs Temp 98.0 F 03/23/17 22:04 Pulse 100 H 03/23/17 22:04 Resp 18 03/23/17 22:04 BP 136/83 03/23/17 22:04 Pulse Ox 95 03/23/17 22:21 - Medical History PMH: Anxiety, Arthritis, Bronchitis, CAD, Depression, 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 sports book writer, not aware), Fractures, Gastritis, Gall Bladder Disease (s/p cholecystectomy), HTN, Post Traumatic Stress Disorder, Chronic Kidney Disease, Rheumatoid Arthritis, Seizures, Chronic Pain Surgical History: Cholecystectomy - [facility] Procedures ALCOHOL DETOXIFICATION (07/04/15) APPLICATION OF SPLINT (03/20/13) CLOSURE SKIN & SUBCUTANEOUS NEC (08/14/13) DETOXIFICATION SERVICES FOR SUBSTANCE ABUSE TREATMENT (03/22/16) ESOPHAGOGASTRODUODENOSCOPY [EGD] W/CLOSED BIOPSY (02/16/15) OTHER GROUP THERAPY (03/12/13) PHYSICAL THERAPY NEC (07/04/15) TETANUS TOXOID ADMINIST (01/19/14) Family History: States: No Known Family Hx - Social History Hx Tobacco Use: No Hx Alcohol Use: Yes Hx Substance Use: No - Immunization History Hx Tetanus Toxoid Vaccination: Yes Hx Influenza Vaccination: Yes Hx Pneumococcal Vaccination: Yes Review Of Systems Constitutional: Negative for: Fever, Chills, Sweats Cardiovascular: Negative for: Chest Pain, Palpitations Respiratory: Negative for: Cough, Shortness of Breath Gastrointestinal: Negative for: Nausea, Vomiting, Abdominal Pain, Diarrhea Psych: Negative for: Suicidal ideation Physical Exam - Physical Exam Appears: Non-toxic, No Acute Distress, Unkempt (patient had bugs on himself and his clothes that appeared to be flees ) Skin: Warm, Dry Head: Atraumatic Cardiovascular: Rhythm Regular Respiratory: No Rales, No Rhonchi, No Stridor, No Wheezing ED Course And Treatment O2 Sat by Pulse Oximetry: 95 Pulse Ox Interpretation: Normal Progress Note: pt refused to shower(pt infested with bugs ) and left ED OBSERVATION Discharge: Yes Date of observation admission: 03/23/17 Time of observation admission: 22:11 - Observation admission statement Patient is being placed in observation because:: acute alcohol intoxication - Goals of Observation Goals of observation are:: sobriety - Progress Note Progress Note: 03/23/17 22:12 vitals stable Disposition Counseled Patient/Family Regarding: Studies Performed, Diagnosis, Need For Followup - Disposition Referrals: [facility] at [facility] [Outside] Disposition: ELOPEMENT - ER ONLY Disposition Time: 22:11 Condition: FAIR Instructions: Alcohol Intoxication (DC) - Clinical Impression Clinical Impression: Alcohol abuse with intoxication, Chronic alcoholism - Scribe Statement The provider has reviewed the documentation as recorded by the Scribjosé miguel Noel All medical record entries made by the Rominaibjosé miguel were at my direction and personally dictated by me. I have reviewed the chart and agree that the record accurately reflects my personal performance of the history, physical exam, medical decision making, and the department course for this patient. I have also personally directed, reviewed, and agree with the discharge instructions and disposition.
[2017-03-23 22:14] VITALS: BMI 26.4
== END 2017-03-23 22:28 | disposition left against medical advice (07) ==
LOC: C.ER 22:02
DX: F10.229 Alcohol dependence with intoxication, unspecified (principal); Y90.9 Presence of alcohol in blood, level not specified; B88.9 Infestation, unspecified

== ENCOUNTER 2017-03-25 21:23 | Emergency (ER) | payer MEDICAID, OTHER ==
[2017-03-25 21:23] VITALS: BMI 26.4
== END 2017-03-25 21:28 | disposition left against medical advice (07) ==
LOC: C.ER 21:23
DX: Z02.89 Encounter for other administrative examinations (principal); R26.81 Unsteadiness on feet

== ENCOUNTER → 2017-03-25 22:32 | Emergency (ER) | payer MEDICAID, OTHER ==
[2017-03-25 22:32] VITALS: BMI 26.4
== END | disposition left against medical advice (07) ==
LOC: C.ER 22:32
DX: Z02.89 Encounter for other administrative examinations (principal); F19.10 Other psychoactive substance abuse, uncomplicated

== ENCOUNTER 2017-03-27 23:06 | Emergency (ER) | payer MEDICAID ==
[2017-03-27 23:06] VITALS: BMI 26.4
[2017-03-27 23:22] VITALS: TEMP 98.7
--- NOTE | 2017-03-27 23:52 | C.PDOC ---
History Of Present Illness Patient is brought to the ED by ambulance for acute alcohol intoxication. Patient is well known in the ED for the same complaint. He admits to drinking alcohol today. Patient denies any other complaints at this time. Time Seen by Provider: 03/27/17 23:50 Chief Complaint (Nursing): Substance Abuse History Per: Patient History/Exam Limitations: intoxication Onset/Duration Of Symptoms: Other Current Symptoms Are (Timing): Still Present Suicide/Self Injury Attempted (Context): None Modifying Factor(s): Alcohol Severity: None Pain Scale Rating Of: 0 Recent travel outside of the [place]: No Additional History Per: Prior Records Past Medical History Reviewed: Historical Data, Nursing Documentation, Vital Signs Vital Signs: Last Vital Signs Temp 98.7 F 03/27/17 23:20 Pulse 104 H 03/28/17 03:22 Resp 18 03/28/17 03:22 BP 143/96 H 03/28/17 03:22 Pulse Ox 100 03/28/17 03:22 - Medical History PMH: Anxiety, Arthritis, Bronchitis, CAD, Depression, 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 administrative underwriter, not aware), Fractures, Gastritis, Gall Bladder Disease (s/p cholecystectomy), HTN, Post Traumatic Stress Disorder, Chronic Kidney Disease, Rheumatoid Arthritis, Seizures, Chronic Pain Surgical History: Cholecystectomy - [facility] Procedures ALCOHOL DETOXIFICATION (07/04/15) APPLICATION OF SPLINT (03/20/13) CLOSURE SKIN & SUBCUTANEOUS NEC (08/14/13) DETOXIFICATION SERVICES FOR SUBSTANCE ABUSE TREATMENT (03/22/16) ESOPHAGOGASTRODUODENOSCOPY [EGD] W/CLOSED BIOPSY (02/16/15) OTHER GROUP THERAPY (03/12/13) PHYSICAL THERAPY NEC (07/04/15) TETANUS TOXOID ADMINIST (01/19/14) Family History: States: Unknown Family Hx - Social History Hx Tobacco Use: No Hx Alcohol Use: Yes Hx Substance Use: No - Immunization History Hx Tetanus Toxoid Vaccination: Yes Hx Influenza Vaccination: Yes Hx Pneumococcal Vaccination: Yes Review Of Systems Constitutional: Positive for: Other (intoxication). Negative for: Fever Gastrointestinal: Negative for: Nausea, Vomiting Psych: Negative for: Suicidal ideation Physical Exam - Physical Exam Appears: Other (intoxicated) Skin: Warm, Dry Head: Atraumatic, Normacephalic Neck: Normal ROM, Supple Cardiovascular: Rhythm Regular Respiratory: No Accessory Muscle Use, No Rales, No Rhonchi, No Wheezing Extremity: Bilateral: Atraumatic Neurological/Psych: Oriented x3 ED Course And Treatment O2 Sat by Pulse Oximetry: 98 (room air) Pulse Ox Interpretation: Normal Reevaluation Time: 05:08 Reassessment Condition: Improved ED OBSERVATION Discharge: Yes Date of observation admission: 03/27/17 Time of observation admission: 23:52 - Observation admission statement Patient is being placed in observation because:: acute alcohol intoxication - Goals of Observation Goals of observation are:: sobriety - Progress Note Progress Note: 03/27/17 23:52 vitals stable Disposition Counseled Patient/Family Regarding: Studies Performed, Diagnosis, Need For Followup - Disposition Referrals: [facility] at [facility] [Outside] Disposition: HOME/ ROUTINE Disposition Time: 23:51 Condition: FAIR Instructions: Alcohol Intoxication (DC) - Clinical Impression Clinical Impression: Alcohol abuse with intoxication - Scribe Statement The provider has reviewed the documentation as recorded by the Scribe Bing Fajardo Provider Attestation: All medical record entries made by the Scribe were at my direction and personally dictated by me. I have reviewed the chart and agree that the record accurately reflects my personal performance of the history, physical exam, medical decision making, and the department course for this patient. I have also personally directed, reviewed, and agree with the discharge instructions and disposition. Decision To Admit - . Patient Diagnosis: Alcohol abuse with intoxication
[2017-03-28 03:22] VITALS: BP 143/96; PULSE 104; RESP 18
[2017-03-28 05:09] VITALS: O2SAT 98
== END 2017-03-28 05:39 | disposition home or self-care (01) ==
LOC: C.ER 23:06
DX: F10.129 Alcohol abuse with intoxication, unspecified (principal); E11.9 Type 2 diabetes mellitus without complications

== ENCOUNTER 2017-04-02 02:17 | Emergency (ER) | payer MEDICAID ==
[2017-04-02 02:17] VITALS: BMI 26.4
--- NOTE | 2017-04-02 02:23 | C.PDOC ---
History Of Present Illness Patient presents to the ER with acute ETOH intoxication. Denies any physical complaints at this time. Time Seen by Provider: 04/02/17 02:21 History Per: Patient History/Exam Limitations: no limitations Onset/Duration Of Symptoms: Hrs Current Symptoms Are (Timing): Still Present Suicide/Self Injury Attempted (Context): None Modifying Factor(s): Alcohol Severity: None Pain Scale Rating Of: 0 Associated Symptoms: denies: Depression, Suicidal Thoughts, Suicidal Plan Involuntary Hold By: None Recent travel outside of the [place]: No Past Medical History Reviewed: Historical Data, Nursing Documentation, Vital Signs Vital Signs: Last Vital Signs Temp 98.1 F 04/02/17 02:27 Pulse 88 04/02/17 02:27 Resp 16 04/02/17 02:27 BP 136/84 04/02/17 02:27 Pulse Ox 97 04/02/17 02:27 - Medical History PMH: Anxiety, Arthritis, Bronchitis, CAD, Depression, 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, not aware), Fractures, Gastritis, Gall Bladder Disease (s/p cholecystectomy), HTN, Post Traumatic Stress Disorder, Chronic Kidney Disease, Rheumatoid Arthritis, Seizures, Chronic Pain Surgical History: Cholecystectomy - [facility] Procedures ALCOHOL DETOXIFICATION (07/04/15) APPLICATION OF SPLINT (03/20/13) CLOSURE SKIN & SUBCUTANEOUS NEC (08/14/13) DETOXIFICATION SERVICES FOR SUBSTANCE ABUSE TREATMENT (03/22/16) ESOPHAGOGASTRODUODENOSCOPY [EGD] W/CLOSED BIOPSY (02/16/15) OTHER GROUP THERAPY (03/12/13) PHYSICAL THERAPY NEC (07/04/15) TETANUS TOXOID ADMINIST (01/19/14) Family History: States: No Known Family Hx - Social History Hx Tobacco Use: No Hx Alcohol Use: Yes Hx Substance Use: No - Immunization History Hx Tetanus Toxoid Vaccination: Yes Hx Influenza Vaccination: Yes Hx Pneumococcal Vaccination: Yes Review Of Systems Constitutional: Negative for: Fever, Chills Gastrointestinal: Negative for: Nausea, Vomiting, Diarrhea Neurological: Positive for: Other (ETOH intoxication) Physical Exam - Physical Exam Appears: Non-toxic, Other (ETOH on breath) Skin: Warm, Dry Oral Mucosa: Moist Chest: Symmetrical, No Tenderness Cardiovascular: Rhythm Regular, No Murmur Respiratory: No Rales, No Rhonchi, No Wheezing Gastrointestinal/Abdominal: Soft, No Tenderness Neurological/Psych: Oriented x3 ED Course And Treatment O2 Sat by Pulse Oximetry: 97 Pulse Ox Interpretation: Normal Reevaluation Time: 06:29 Reassessment Condition: Improved ED OBSERVATION Discharge: Yes Date of observation admission: 04/02/17 Time of observation admission: 02:33 - Observation admission statement Patient is being placed in observation because:: acute alcohol intoxication - Goals of Observation Goals of observation are:: sobriety - Progress Note Progress Note: 04/02/17 02:33 vitals stable 04/02/17 05:29 no complaints Disposition Counseled Patient/Family Regarding: Studies Performed, Diagnosis, Need For Followup - Disposition Referrals: [facility] at [facility] [Outside] Disposition: HOME/ ROUTINE Disposition Time: 02:22 Condition: FAIR Instructions: Alcohol Intoxication (DC) - Clinical Impression Clinical Impression: Alcohol abuse with intoxication - Scribe Statement The provider has reviewed the documentation as recorded by the Scribe Fabián Ramirez All medical record entries made by the Scribe were at my direction and personally dictated by me. I have reviewed the chart and agree that the record accurately reflects my personal performance of the history, physical exam, medical decision making, and the department course for this patient. I have also personally directed, reviewed, and agree with the discharge instructions and disposition.
[2017-04-02 02:29] VITALS: BP 136/84; PULSE 88; RESP 16; TEMP 98.1; O2SAT 97
== END 2017-04-02 06:48 | disposition home or self-care (01) ==
LOC: C.ER 02:17
DX: F10.120 Alcohol abuse with intoxication, uncomplicated (principal); Y90.9 Presence of alcohol in blood, level not specified

== ENCOUNTER 2017-04-03 22:39 | Emergency (ER) | payer MEDICAID ==
[2017-04-03 22:39] VITALS: BMI 26.4
--- NOTE | 2017-04-03 23:06 | C.PDOC ---
History Of Present Illness Patient presents to the ER with acute ETOH intoxication. Denies any physical complaints at this time. Time Seen by Provider: 04/03/17 23:06 Chief Complaint (Nursing): Substance Abuse History Per: Patient History/Exam Limitations: no limitations Onset/Duration Of Symptoms: Hrs Current Symptoms Are (Timing): Still Present Suicide/Self Injury Attempted (Context): None Modifying Factor(s): Alcohol Severity: None Pain Scale Rating Of: 0 Associated Symptoms: denies: Depression, Suicidal Thoughts, Suicidal Plan Involuntary Hold By: None Recent travel outside of the [place]: No Past Medical History Reviewed: Historical Data, Nursing Documentation, Vital Signs Vital Signs: Last Vital Signs Temp 97.9 F 04/03/17 22:49 Pulse 91 H 04/03/17 22:49 Resp 17 04/03/17 22:49 BP 129/80 04/03/17 22:49 Pulse Ox 96 04/03/17 23:19 - Medical History PMH: Anxiety, Arthritis, Bronchitis, CAD, Depression, 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 automotive service writer, not aware), Fractures, Gastritis, Gall Bladder Disease (s/p cholecystectomy), HTN, Post Traumatic Stress Disorder, Chronic Kidney Disease, Rheumatoid Arthritis, Seizures, Chronic Pain Surgical History: Cholecystectomy - [facility] Procedures ALCOHOL DETOXIFICATION (07/04/15) APPLICATION OF SPLINT (03/20/13) CLOSURE SKIN & SUBCUTANEOUS NEC (08/14/13) DETOXIFICATION SERVICES FOR SUBSTANCE ABUSE TREATMENT (03/22/16) ESOPHAGOGASTRODUODENOSCOPY [EGD] W/CLOSED BIOPSY (02/16/15) OTHER GROUP THERAPY (03/12/13) PHYSICAL THERAPY NEC (07/04/15) TETANUS TOXOID ADMINIST (01/19/14) Family History: States: No Known Family Hx - Social History Hx Tobacco Use: No Hx Alcohol Use: Yes Hx Substance Use: No - Immunization History Hx Tetanus Toxoid Vaccination: Yes Hx Influenza Vaccination: Yes Hx Pneumococcal Vaccination: Yes Review Of Systems Constitutional: Negative for: Fever, Chills Gastrointestinal: Negative for: Nausea, Vomiting, Diarrhea Neurological: Positive for: Other (ETOH intoxication) Physical Exam - Physical Exam Appears: Non-toxic Skin: Warm, Dry Oral Mucosa: Moist Chest: Symmetrical, No Tenderness Cardiovascular: Rhythm Regular, No Murmur Respiratory: No Rales, No Rhonchi, No Wheezing Gastrointestinal/Abdominal: Soft, No Tenderness Neurological/Psych: Oriented x3 ED Course And Treatment O2 Sat by Pulse Oximetry: 96 Pulse Ox Interpretation: Normal ED OBSERVATION Discharge: Yes Date of observation admission: 04/03/17 Time of observation admission: 23:08 - Observation admission statement Patient is being placed in observation because:: acute alcohol intoxication - Goals of Observation Goals of observation are:: sobriety - Progress Note Progress Note: 04/03/17 23:08 vitals stable 04/04/17 03:30 no complaints Disposition Counseled Patient/Family Regarding: Studies Performed, Diagnosis, Need For Followup - Disposition Disposition: HOME/ ROUTINE Disposition Time: 23:06 Condition: FAIR Instructions: Alcohol Intoxication (DC) - Clinical Impression Clinical Impression: Alcohol intoxication, Chronic alcoholism - Scribe Statement The provider has reviewed the documentation as recorded by the Scribjosé miguel Ramirez All medical record entries made by the Rominaibjosé miguel were at my direction and personally dictated by me. I have reviewed the chart and agree that the record accurately reflects my personal performance of the history, physical exam, medical decision making, and the department course for this patient. I have also personally directed, reviewed, and agree with the discharge instructions and disposition.
[2017-04-04 06:04] VITALS: RESP 20
[2017-04-04 06:07] VITALS: BP 118/82; PULSE 90; TEMP 98.2; O2SAT 97
== END 2017-04-04 06:07 | disposition home or self-care (01) ==
LOC: C.ER 22:39
DX: F10.229 Alcohol dependence with intoxication, unspecified (principal); Y90.9 Presence of alcohol in blood, level not specified

== ENCOUNTER 2017-04-06 20:24 | Observation (INO) | payer MEDICAID ==
[2017-04-06 20:25] VITALS: BMI 26.4
[2017-04-06 20:44] VITALS: RESP 18
--- NOTE | 2017-04-06 21:05 | C.PDOC ---
History Of Present Illness 56 y/o male presents to the ED for public intoxication. Pt with frequent visits to the ED for same. No physical complaints at this time. Time Seen by Provider: 04/06/17 21:00 Chief Complaint (Nursing): Substance Abuse History Per: Patient History/Exam Limitations: no limitations Onset/Duration Of Symptoms: Hrs Current Symptoms Are (Timing): Still Present Suicide/Self Injury Attempted (Context): None Modifying Factor(s): Alcohol Severity: Mild Associated Symptoms: denies: Suicidal Thoughts Involuntary Hold By: None Recent travel outside of the [place]: No Past Medical History Reviewed: Historical Data, Nursing Documentation, Vital Signs Vital Signs: Last Vital Signs Temp 98.3 F 04/06/17 20:31 Pulse 88 04/06/17 20:31 Resp 18 04/06/17 20:31 BP 132/86 04/06/17 20:31 Pulse Ox 98 04/06/17 21:05 - Medical History PMH: Anxiety, Arthritis, Bronchitis, CAD, Depression, 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 script writer, not aware), Fractures, Gastritis, Gall Bladder Disease (s/p cholecystectomy), HTN, Post Traumatic Stress Disorder, Chronic Kidney Disease, Rheumatoid Arthritis, Seizures, Chronic Pain Surgical History: Cholecystectomy - [facility] Procedures ALCOHOL DETOXIFICATION (07/04/15) APPLICATION OF SPLINT (03/20/13) CLOSURE SKIN & SUBCUTANEOUS NEC (08/14/13) DETOXIFICATION SERVICES FOR SUBSTANCE ABUSE TREATMENT (03/22/16) ESOPHAGOGASTRODUODENOSCOPY [EGD] W/CLOSED BIOPSY (02/16/15) OTHER GROUP THERAPY (03/12/13) PHYSICAL THERAPY NEC (07/04/15) TETANUS TOXOID ADMINIST (01/19/14) Family History: States: Unknown Family Hx - Social History Hx Tobacco Use: No Hx Alcohol Use: Yes Hx Substance Use: No - Immunization History Hx Tetanus Toxoid Vaccination: Yes Hx Influenza Vaccination: Yes Hx Pneumococcal Vaccination: Yes Review Of Systems Except As Marked, All Systems Reviewed And Found Negative. Constitutional: Negative for: Fever Cardiovascular: Negative for: Chest Pain Respiratory: Negative for: Shortness of Breath Gastrointestinal: Negative for: Vomiting, Abdominal Pain Psych: Negative for: Suicidal ideation Physical Exam - Physical Exam Appears: Non-toxic, No Acute Distress, Other (intoxicated, alcohol on breath) Skin: Warm, Dry, No Rash Head: Atraumatic, Normacephalic Nose: Normal, No Epistaxis Oral Mucosa: Moist Throat: Normal, No Erythema Neck: Normal, Normal ROM, Supple Chest: Symmetrical Cardiovascular: Rhythm Regular, No Murmur Respiratory: Normal Breath Sounds, No Rales, No Rhonchi, No Wheezing Gastrointestinal/Abdominal: Normal Exam, Soft, No Tenderness Extremity: No Pedal Edema Extremity: Bilateral: Atraumatic Neurological/Psych: Oriented x3 ED Course And Treatment O2 Sat by Pulse Oximetry: 98 (room air) Pulse Ox Interpretation: Normal Reevaluation Time: :14 Reassessment Condition: Improved (stable gait) Medical Decision Making Medical Decision Making: persistent alcohol abuse. Disposition Doctor Will See Patient In The: Office Counseled Patient/Family Regarding: Studies Performed, Diagnosis - Disposition Disposition: HOME/ ROUTINE Disposition Time: :15 Condition: GOOD - Clinical Impression Clinical Impression: Alcohol abuse with intoxication - Scribe Statement The provider has reviewed the documentation as recorded by the Jada Anaya Provider Attestation: All medical record entries made by the Jada were at my direction and personally dictated by me. I have reviewed the chart and agree that the record accurately reflects my personal performance of the history, physical exam, medical decision making, and the department course for this patient. I have also personally directed, reviewed, and agree with the discharge instructions and disposition.
[2017-04-07 01:20] VITALS: BP 112/70; PULSE 95; TEMP 97.5; O2SAT 95
== END 2017-04-07 01:14 | disposition home or self-care (01) ==
LOC: C.ER 20:24 → C.9OBSV 21:02
PROVIDERS: ADMIT Internal Medicine; ATTEND Internal Medicine
DX: F10.129 Alcohol abuse with intoxication, unspecified (principal); Y90.9 Presence of alcohol in blood, level not specified
CPT/HCPCS: 99284; G0378

== ENCOUNTER 2017-04-08 21:50 | Observation (INO) | payer MEDICAID ==
[2017-04-08 21:50] VITALS: BMI 26.4
[2017-04-08 21:56] VITALS: O2SAT 98
--- NOTE | 2017-04-08 22:47 | C.PDOC ---
History Of Present Illness Patient presents to the ER with acute ETOH intoxication. Patient denies any physical complaints at this time. Time Seen by Provider: 04/08/17 22:46 Chief Complaint (Nursing): Substance Abuse History Per: Patient History/Exam Limitations: no limitations Onset/Duration Of Symptoms: Hrs Current Symptoms Are (Timing): Still Present Suicide/Self Injury Attempted (Context): None Modifying Factor(s): Alcohol Severity: None Pain Scale Rating Of: 0 Associated Symptoms: denies: Depression, Suicidal Thoughts, Suicidal Plan Involuntary Hold By: None Recent travel outside of the [place]: No Past Medical History Reviewed: Historical Data, Nursing Documentation, Vital Signs Vital Signs: Last Vital Signs Temp 98.1 F 04/08/17 21:53 Pulse 94 H 04/08/17 21:53 Resp 16 04/08/17 21:53 BP 140/91 H 04/08/17 21:53 Pulse Ox 98 04/09/17 00:23 - Medical History PMH: Anxiety, Arthritis, Bronchitis, CAD, Depression, 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), Fractures, Gastritis, Gall Bladder Disease (s/p cholecystectomy), HTN, Post Traumatic Stress Disorder, Chronic Kidney Disease, Rheumatoid Arthritis, Seizures, Chronic Pain Surgical History: Cholecystectomy - [facility] Procedures ALCOHOL DETOXIFICATION (07/04/15) APPLICATION OF SPLINT (03/20/13) CLOSURE SKIN & SUBCUTANEOUS NEC (08/14/13) DETOXIFICATION SERVICES FOR SUBSTANCE ABUSE TREATMENT (03/22/16) ESOPHAGOGASTRODUODENOSCOPY [EGD] W/CLOSED BIOPSY (02/16/15) OTHER GROUP THERAPY (03/12/13) PHYSICAL THERAPY NEC (07/04/15) TETANUS TOXOID ADMINIST (01/19/14) Family History: States: No Known Family Hx - Social History Hx Tobacco Use: No Hx Alcohol Use: Yes Hx Substance Use: No - Immunization History Hx Tetanus Toxoid Vaccination: Yes Hx Influenza Vaccination: Yes Hx Pneumococcal Vaccination: Yes Review Of Systems Constitutional: Negative for: Fever, Chills Gastrointestinal: Negative for: Nausea, Vomiting, Diarrhea Neurological: Positive for: Other (ETOH intoxication) Physical Exam - Physical Exam Appears: Non-toxic, Other (ETOH on breath) Skin: Warm, Dry Oral Mucosa: Moist Chest: Symmetrical, No Tenderness Cardiovascular: Rhythm Regular, No Murmur Respiratory: No Rales, No Rhonchi, No Wheezing Gastrointestinal/Abdominal: Soft, No Tenderness Neurological/Psych: Oriented x3 ED Course And Treatment O2 Sat by Pulse Oximetry: 98 (Room air) Pulse Ox Interpretation: Normal ED OBSERVATION Discharge: Yes Date of observation admission: 04/08/17 Time of observation admission: 22:48 - Observation admission statement Patient is being placed in observation because:: acute alcohol intoxication - Goals of Observation Goals of observation are:: sobriety - Progress Note Progress Note: 04/08/17 22:48 vitals stable 04/09/17 02:56 vitals stable 04/09/17 04:56 no complaints Disposition Counseled Patient/Family Regarding: Studies Performed, Diagnosis - Disposition Disposition: HOME/ ROUTINE Disposition Time: 22:47 Condition: FAIR - Clinical Impression Clinical Impression: Acute alcohol intoxication - Scribe Statement The provider has reviewed the documentation as recorded by the Rominaibjosé miguel Ramirez All medical record entries made by the Rominaibjosé miguel were at my direction and personally dictated by me. I have reviewed the chart and agree that the record accurately reflects my personal performance of the history, physical exam, medical decision making, and the department course for this patient. I have also personally directed, reviewed, and agree with the discharge instructions and disposition.
[2017-04-09 06:41] VITALS: RESP 20
[2017-04-09 06:43] VITALS: BP 148/76; PULSE 89; TEMP 97.7
== END 2017-04-09 05:57 | disposition home or self-care (01) ==
LOC: C.ER 21:50 → C.9OBSV 22:47
PROVIDERS: ADMIT Emergency Medicine; ATTEND Emergency Medicine
DX: F10.120 Alcohol abuse with intoxication, uncomplicated (principal)
CPT/HCPCS: G0378 ×2

== ENCOUNTER 2017-04-14 01:20 | Observation (INO) | payer MEDICAID ==
[2017-04-14 01:21] VITALS: BMI 26.4
[2017-04-14 01:37] VITALS: PULSE 83
--- NOTE | 2017-04-14 03:14 | C.PDOC ---
History Of Present Illness Pt was BIBEMS due to public alcohol intoxication. Time Seen by Provider: 04/14/17 02:33 Chief Complaint (Nursing): Substance Abuse History Per: Patient, EMS History/Exam Limitations: intoxication Onset/Duration Of Symptoms: Unknown (tonight) Current Symptoms Are (Timing): Still Present Modifying Factor(s): Alcohol Severity: Severe Additional History Per: Prior Records Past Medical History Reviewed: Historical Data, Nursing Documentation, Vital Signs Vital Signs: Last Vital Signs Temp 97.4 F L 04/14/17 01:23 Pulse 83 04/14/17 01:23 Resp 20 04/14/17 01:23 BP 136/89 04/14/17 01:23 Pulse Ox 96 04/14/17 03:14 - Medical History PMH: Anxiety, Arthritis, Bronchitis, CAD, Depression, 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 hand sign writer, not aware), Fractures, Gastritis, Gall Bladder Disease (s/p cholecystectomy), HTN, Post Traumatic Stress Disorder, Chronic Kidney Disease, Rheumatoid Arthritis, Seizures, Chronic Pain Other PMH: Alcohol abuse Surgical History: Cholecystectomy - [facility] Procedures ALCOHOL DETOXIFICATION (07/04/15) APPLICATION OF SPLINT (03/20/13) CLOSURE SKIN & SUBCUTANEOUS NEC (08/14/13) DETOXIFICATION SERVICES FOR SUBSTANCE ABUSE TREATMENT (03/22/16) ESOPHAGOGASTRODUODENOSCOPY [EGD] W/CLOSED BIOPSY (02/16/15) OTHER GROUP THERAPY (03/12/13) PHYSICAL THERAPY NEC (07/04/15) TETANUS TOXOID ADMINIST (01/19/14) Family History: States: Unknown Family Hx - Social History Hx Tobacco Use: No Hx Alcohol Use: Yes Hx Substance Use: No - Immunization History Hx Tetanus Toxoid Vaccination: Yes Hx Influenza Vaccination: Yes Hx Pneumococcal Vaccination: Yes Review Of Systems Review Of Systems: ROS cannot be obtained secondary to pt's inabilty to answer questions. Physical Exam - Physical Exam Appears: No Acute Distress, Unkempt, Other (AOB, intoxicated) Skin: Normal Color, Warm, Dry Head: Atraumatic Eye(s): bilateral: PERRL Neck: Normal ROM, No Midline Cervical Tenderness, No Step Off Deformity, Supple Chest: Symmetrical, No Deformity Cardiovascular: Rhythm Regular Respiratory: Normal Breath Sounds, No Accessory Muscle Use Gastrointestinal/Abdominal: Soft Extremity: Normal ROM, No Deformity Neurological/Psych: Eyes Open With Command, Other (Moving all extremities) Gait: Unable To Assess ED Course And Treatment O2 Sat by Pulse Oximetry: 96 Pulse Ox Interpretation: Normal Reassessment Condition: Improved ED OBSERVATION Discharge: Yes Date of observation admission: 04/14/17 Time of observation admission: 03:00 - Observation admission statement Patient is being placed in observation because:: Alcohol intoxication. - Goals of Observation Goals of observation are:: Sobriety. - Progress Note Progress Note: 04/14/17 05:46 Pt was checked every 2 hours and remained stable. Pt is now clinically sober. AAOx3. Steady gait. Disposition Counseled Patient/Family Regarding: Diagnosis, Need For Followup - Disposition Disposition: HOME/ ROUTINE Disposition Time: 05:46 Condition: IMPROVED - Clinical Impression Clinical Impression: Alcohol abuse
[2017-04-14 06:18] VITALS: BP 136/80; RESP 18; TEMP 98.6; O2SAT 99
== END 2017-04-14 05:48 | disposition home or self-care (01) ==
LOC: C.ER 01:20 → C.9OBSV 03:14
PROVIDERS: ADMIT Emergency Medicine; ATTEND Emergency Medicine
DX: F10.129 Alcohol abuse with intoxication, unspecified (principal); Y90.9 Presence of alcohol in blood, level not specified
CPT/HCPCS: 99282; G0378

== ENCOUNTER 2017-04-16 02:46 | Observation (INO) | payer MEDICAID ==
[2017-04-16 02:46] VITALS: BMI 26.4
--- NOTE | 2017-04-16 05:28 | C.PDOC ---
History Of Present Illness Patient is a 56 year old male who presents to the ER with acute ETOH intoxication. Denies any physical complaints at this time. Time Seen by Provider: 04/16/17 03:54 Chief Complaint (Nursing): Substance Abuse History Per: Patient History/Exam Limitations: no limitations Onset/Duration Of Symptoms: Hrs Current Symptoms Are (Timing): Still Present Suicide/Self Injury Attempted (Context): None Modifying Factor(s): Alcohol Associated Symptoms: denies: Depression, Suicidal Thoughts, Suicidal Plan Involuntary Hold By: None Recent travel outside of the [place]: No Past Medical History Reviewed: Historical Data, Nursing Documentation, Vital Signs Vital Signs: Last Vital Signs Temp 98.9 F 04/16/17 06:33 Pulse 92 H 04/16/17 06:33 Resp 16 04/16/17 06:33 BP 131/82 04/16/17 06:33 Pulse Ox 98 04/16/17 06:33 - Medical History PMH: Anxiety, Arthritis, Bronchitis, CAD, Depression, 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 ticket writer, not aware), Fractures, Gastritis, Gall Bladder Disease (s/p cholecystectomy), HTN, Post Traumatic Stress Disorder, Chronic Kidney Disease, Rheumatoid Arthritis, Seizures, Chronic Pain Surgical History: Cholecystectomy - [facility] Procedures ALCOHOL DETOXIFICATION (07/04/15) APPLICATION OF SPLINT (03/20/13) CLOSURE SKIN & SUBCUTANEOUS NEC (08/14/13) DETOXIFICATION SERVICES FOR SUBSTANCE ABUSE TREATMENT (03/22/16) ESOPHAGOGASTRODUODENOSCOPY [EGD] W/CLOSED BIOPSY (02/16/15) OTHER GROUP THERAPY (03/12/13) PHYSICAL THERAPY NEC (07/04/15) TETANUS TOXOID ADMINIST (01/19/14) Family History: States: Unknown Family Hx - Social History Hx Tobacco Use: No Hx Alcohol Use: Yes Hx Substance Use: No - Immunization History Hx Tetanus Toxoid Vaccination: Yes Hx Influenza Vaccination: Yes Hx Pneumococcal Vaccination: Yes Review Of Systems Constitutional: Negative for: Fever, Chills Gastrointestinal: Negative for: Nausea, Vomiting, Diarrhea Physical Exam - Physical Exam Appears: Non-toxic, No Acute Distress, Other (ETOH on breath) Skin: Normal Color, Warm, Dry Head: Atraumatic, Normacephalic Oral Mucosa: Moist Neck: Normal Chest: Symmetrical, No Tenderness Cardiovascular: Rhythm Regular, No Murmur Respiratory: Normal Breath Sounds, No Wheezing Gastrointestinal/Abdominal: Soft, No Tenderness Neurological/Psych: Oriented x3, Other (slurred speech) Gait: Unsteady ED Course And Treatment O2 Sat by Pulse Oximetry: 100 (Room air) Pulse Ox Interpretation: Normal Disposition - Disposition Disposition Time: 07:15 Condition: STABLE - Clinical Impression Clinical Impression: Alcohol intoxication - Scribe Statement The provider has reviewed the documentation as recorded by the Scribe Fabián Ramirez All medical record entries made by the Rominaibjosé miguel were at my direction and personally dictated by me. I have reviewed the chart and agree that the record accurately reflects my personal performance of the history, physical exam, medical decision making, and the department course for this patient. I have also personally directed, reviewed, and agree with the discharge instructions and disposition.
[2017-04-16 06:34] VITALS: BP 131/82; PULSE 92; RESP 16; TEMP 98.9
[2017-04-16 07:16] VITALS: O2SAT 100
== END 2017-04-16 10:27 | disposition home or self-care (01) ==
LOC: C.ER 02:46 → C.9OBSV 08:02
PROVIDERS: ADMIT Emergency Medicine; ATTEND Emergency Medicine
DX: F10.129 Alcohol abuse with intoxication, unspecified (principal); Y90.9 Presence of alcohol in blood, level not specified
CPT/HCPCS: 99284; G0378

== ENCOUNTER 2017-04-16 21:34 | Emergency (ER) | payer MEDICAID ==
[2017-04-16 21:34] VITALS: BMI 26.4
[2017-04-16 22:01] VITALS: RESP 20
--- NOTE | 2017-04-16 23:32 | C.PDOC ---
History Of Present Illness Patient presents to the ED after being found wandering intoxicated. Patient is a chronic alcoholic whom presents to the ED on numerous occasions for intoxication. Patient denies any physical complaints at this time. Time Seen by Provider: 04/16/17 23:29 Chief Complaint (Nursing): Substance Abuse History Per: Patient History/Exam Limitations: no limitations Onset/Duration Of Symptoms: Hrs, Other (Chronic Alcoholism ) Current Symptoms Are (Timing): Still Present Suicide/Self Injury Attempted (Context): None Severity: None Pain Scale Rating Of: 0 Associated Symptoms: denies: Suicidal Thoughts, Suicidal Plan Involuntary Hold By: None Recent travel outside of the [place]: No Additional History Per: Prior Records Past Medical History Reviewed: Historical Data, Nursing Documentation, Vital Signs Vital Signs: Last Vital Signs Temp 97.9 F 04/16/17 21:59 Pulse 89 04/16/17 21:59 Resp 20 04/16/17 21:59 BP 164/98 H 04/16/17 21:59 Pulse Ox 97 04/17/17 00:31 - Medical History PMH: Anxiety, Arthritis, Bronchitis, CAD, Depression, 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 communications writer, not aware), Fractures, Gastritis, Gall Bladder Disease (s/p cholecystectomy), HTN, Post Traumatic Stress Disorder, Chronic Kidney Disease, Rheumatoid Arthritis, Seizures, Chronic Pain Surgical History: Cholecystectomy - [facility] Procedures ALCOHOL DETOXIFICATION (07/04/15) APPLICATION OF SPLINT (03/20/13) CLOSURE SKIN & SUBCUTANEOUS NEC (08/14/13) DETOXIFICATION SERVICES FOR SUBSTANCE ABUSE TREATMENT (03/22/16) ESOPHAGOGASTRODUODENOSCOPY [EGD] W/CLOSED BIOPSY (02/16/15) OTHER GROUP THERAPY (03/12/13) PHYSICAL THERAPY NEC (07/04/15) TETANUS TOXOID ADMINIST (01/19/14) Family History: States: Unknown Family Hx - Social History Hx Tobacco Use: No Hx Alcohol Use: Yes Hx Substance Use: No - Immunization History Hx Tetanus Toxoid Vaccination: Yes Hx Influenza Vaccination: Yes Hx Pneumococcal Vaccination: Yes Review Of Systems Constitutional: Negative for: Fever, Chills Cardiovascular: Negative for: Chest Pain, Palpitations Respiratory: Negative for: Cough, Shortness of Breath Gastrointestinal: Negative for: Nausea, Vomiting, Abdominal Pain, Diarrhea Psych: Negative for: Suicidal ideation Physical Exam - Physical Exam Appears: Non-toxic, No Acute Distress, Other (EtOH on breath ) Skin: Warm, Dry Oral Mucosa: Moist Neck: Supple Chest: Symmetrical, No Deformity Cardiovascular: Rhythm Regular Respiratory: No Rales, No Rhonchi, No Wheezing Gastrointestinal/Abdominal: Soft, No Tenderness, No Distention, No Guarding, No Rebound Extremity: Normal ROM, No Tenderness Neurological/Psych: Oriented x3 ED Course And Treatment O2 Sat by Pulse Oximetry: 97 (room air ) Pulse Ox Interpretation: Normal Reevaluation Time: 04:28 Reassessment Condition: Improved ED OBSERVATION Discharge: Yes Date of observation admission: 04/16/17 Time of observation admission: 23:31 - Observation admission statement Patient is being placed in observation because:: acute alcohol intoxication - Goals of Observation Goals of observation are:: sobriety - Progress Note Progress Note: 04/16/17 23:31 vitals stable, 04/17/17 02:28 no complaints Disposition Counseled Patient/Family Regarding: Studies Performed, Diagnosis, Need For Followup - Disposition Referrals: [facility] [Outside] Disposition: HOME/ ROUTINE Disposition Time: 23:30 Condition: FAIR Instructions: Alcohol Intoxication (DC) - Clinical Impression Clinical Impression: Alcoholic intoxication, Chronic alcoholism - Scribe Statement The provider has reviewed the documentation as recorded by the Scribe Tiffany Noel All medical record entries made by the Scribe were at my direction and personally dictated by me. I have reviewed the chart and agree that the record accurately reflects my personal performance of the history, physical exam, medical decision making, and the department course for this patient. I have also personally directed, reviewed, and agree with the discharge instructions and disposition. Decision To Admit - . Patient Diagnosis: Alcoholic intoxication, Chronic alcoholism
[2017-04-17 04:42] VITALS: BP 140/75; PULSE 72; TEMP 98.2; O2SAT 98
== END 2017-04-17 04:44 | disposition home or self-care (01) ==
LOC: C.ER 21:34
DX: F10.229 Alcohol dependence with intoxication, unspecified (principal)

== ENCOUNTER 2017-04-17 22:04 | Emergency (ER) | payer MEDICAID ==
[2017-04-17 22:06] VITALS: BMI 26.4
[2017-04-17 23:28] VITALS: TEMP 97.8
--- NOTE | 2017-04-18 00:34 | C.PDOC ---
History Of Present Illness Patient is a 56 year old male who presents to the ER with acute ETOH intoxication. Denies any physical complaints at this time. Chief Complaint (Nursing): Substance Abuse History Per: Patient History/Exam Limitations: no limitations Onset/Duration Of Symptoms: Hrs Current Symptoms Are (Timing): Still Present Suicide/Self Injury Attempted (Context): None Modifying Factor(s): Alcohol Associated Symptoms: denies: Depression, Suicidal Thoughts, Suicidal Plan Involuntary Hold By: None Recent travel outside of the [place]: No Past Medical History Reviewed: Historical Data, Nursing Documentation, Vital Signs Vital Signs: Last Vital Signs Temp 97.8 F 04/17/17 23:17 Pulse 78 04/18/17 04:15 Resp 14 04/18/17 04:15 BP 130/80 04/18/17 04:15 Pulse Ox 96 04/18/17 04:15 - Medical History PMH: Anxiety, Arthritis, Bronchitis, CAD, Depression, 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 gag writer, not aware), Fractures, Gastritis, Gall Bladder Disease (s/p cholecystectomy), HTN, Post Traumatic Stress Disorder, Rheumatoid Arthritis, Seizures, Chronic Pain Surgical History: Cholecystectomy - [facility] Procedures ALCOHOL DETOXIFICATION (07/04/15) APPLICATION OF SPLINT (03/20/13) CLOSURE SKIN & SUBCUTANEOUS NEC (08/14/13) DETOXIFICATION SERVICES FOR SUBSTANCE ABUSE TREATMENT (03/22/16) ESOPHAGOGASTRODUODENOSCOPY [EGD] W/CLOSED BIOPSY (02/16/15) OTHER GROUP THERAPY (03/12/13) PHYSICAL THERAPY NEC (07/04/15) TETANUS TOXOID ADMINIST (01/19/14) Family History: States: Unknown Family Hx - Social History Hx Tobacco Use: No Hx Alcohol Use: Yes Hx Substance Use: No - Immunization History Hx Tetanus Toxoid Vaccination: Yes Hx Influenza Vaccination: Yes Hx Pneumococcal Vaccination: Yes Review Of Systems Constitutional: Negative for: Fever, Chills Gastrointestinal: Negative for: Nausea, Vomiting, Diarrhea Physical Exam - Physical Exam Appears: Non-toxic, No Acute Distress, Other (ETOH on breath) Skin: Normal Color, Warm, Dry Head: Atraumatic, Normacephalic Oral Mucosa: Moist Chest: Symmetrical, No Tenderness Cardiovascular: Rhythm Regular, No Murmur Respiratory: Normal Breath Sounds, No Rales, No Rhonchi, No Wheezing Gastrointestinal/Abdominal: Soft, No Tenderness Neurological/Psych: Oriented x3, Normal Speech, Normal Cognition ED Course And Treatment O2 Sat by Pulse Oximetry: 97 (Room air) Pulse Ox Interpretation: Normal Disposition Counseled Patient/Family Regarding: Diagnosis - Disposition Referrals: [facility] [Outside] Disposition Time: 05:41 Condition: STABLE Instructions: Abuse of Alcohol (ED) - POA Present On Arrival: None - Clinical Impression Clinical Impression: Alcohol intoxication - Scribe Statement The provider has reviewed the documentation as recorded by the Scribjosé miguel Ramirez All medical record entries made by the Rominaibe were at my direction and personally dictated by me. I have reviewed the chart and agree that the record accurately reflects my personal performance of the history, physical exam, medical decision making, and the department course for this patient. I have also personally directed, reviewed, and agree with the discharge instructions and disposition.
[2017-04-18 04:16] VITALS: BP 130/80; PULSE 78; RESP 14
[2017-04-18 05:43] VITALS: O2SAT 97
== END 2017-04-18 05:53 | disposition home or self-care (01) ==
LOC: C.ER 22:04
DX: F10.120 Alcohol abuse with intoxication, uncomplicated (principal); Y90.9 Presence of alcohol in blood, level not specified

== ENCOUNTER 2017-04-18 22:06 | Observation (INO) | payer MEDICAID ==
[2017-04-18 22:07] VITALS: BMI 26.4
[2017-04-18 23:02] VITALS: O2SAT 95
--- NOTE | 2017-04-18 23:10 | C.PDOC ---
History Of Present Illness 56 year old male was brought to the ED by EMS after being found wandering while intoxicated. Patient denies any suicidal, homicidal ideations, or physical complaints at this time. Time Seen by Provider: 04/18/17 22:26 Chief Complaint (Nursing): Substance Abuse History Per: Patient, EMS History/Exam Limitations: no limitations Onset/Duration Of Symptoms: Hrs Current Symptoms Are (Timing): Still Present Suicide/Self Injury Attempted (Context): None Modifying Factor(s): Alcohol Severity: None Pain Scale Rating Of: 0 Associated Symptoms: denies: Suicidal Thoughts, Suicidal Plan Involuntary Hold By: None Recent travel outside of the [place]: No Additional History Per: Prior Records Past Medical History Reviewed: Historical Data, Nursing Documentation, Vital Signs Vital Signs: Last Vital Signs Temp 98.4 F 04/19/17 02:12 Pulse 93 H 04/19/17 02:12 Resp 16 04/19/17 02:12 BP 123/72 04/19/17 02:12 Pulse Ox 95 04/19/17 02:12 - Medical History PMH: Anxiety, Arthritis, Bronchitis, CAD, Depression, 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 mechanic, not aware), Fractures, Gastritis, Gall Bladder Disease (s/p cholecystectomy), HTN, Post Traumatic Stress Disorder, Rheumatoid Arthritis, Seizures, Chronic Pain Surgical History: Cholecystectomy - [facility] Procedures ALCOHOL DETOXIFICATION (07/04/15) APPLICATION OF SPLINT (03/20/13) CLOSURE SKIN & SUBCUTANEOUS NEC (08/14/13) DETOXIFICATION SERVICES FOR SUBSTANCE ABUSE TREATMENT (03/22/16) ESOPHAGOGASTRODUODENOSCOPY [EGD] W/CLOSED BIOPSY (02/16/15) OTHER GROUP THERAPY (03/12/13) PHYSICAL THERAPY NEC (07/04/15) TETANUS TOXOID ADMINIST (01/19/14) Family History: States: Unknown Family Hx - Social History Hx Tobacco Use: No Hx Alcohol Use: Yes Hx Substance Use: No - Immunization History Hx Tetanus Toxoid Vaccination: Yes Hx Influenza Vaccination: Yes Hx Pneumococcal Vaccination: Yes Review Of Systems Except As Marked, All Systems Reviewed And Found Negative. Constitutional: Negative for: Fever Cardiovascular: Negative for: Chest Pain Respiratory: Negative for: Shortness of Breath Physical Exam - Physical Exam Additional Physical Exam Comments: Constitutional: No acute distress. Head: Normocephalic. Atraumatic. Eyes: PERRL. ENT: Moist mucous membranes. Neck: Supple. Cardiovascular: Regular rate. Radial pulse 2+ bilaterally. Chest: No tenderness. Respiratory: Clear to auscultation bilaterally. GI: Soft. Nontender. Nondistended. Back: No CVA tenderness. Musculoskeletal: No tenderness or swelling of extremities. Skin: No rash. Neurologic: Alert, no focal deficit. ED Course And Treatment O2 Sat by Pulse Oximetry: 95 (room air ) ED OBSERVATION Discharge: Yes Date of observation admission: 04/18/17 Time of observation admission: 23:08 - Observation admission statement Patient is being placed in observation because:: Patient is intoxicated. - Goals of Observation Goals of observation are:: Sobriety. - Progress Note Progress Note: 2308 Sleeping. 0100 Sleeping. 0300 Sleeping. 0500 Sleeping. 0600 Awake, alert, steady on feet. Will discharge. Disposition - Disposition Disposition: HOME/ ROUTINE Disposition Time: 06:00 Condition: STABLE - Clinical Impression Clinical Impression: Alcohol intoxication - Scribe Statement The provider has reviewed the documentation as recorded by the Scribjosé miguel Noel All medical record entries made by the Jada were at my direction and personally dictated by me. I have reviewed the chart and agree that the record accurately reflects my personal performance of the history, physical exam, medical decision making, and the department course for this patient. I have also personally directed, reviewed, and agree with the discharge instructions and disposition.
[2017-04-19 02:13] VITALS: RESP 16
[2017-04-19 05:46] VITALS: BP 138/78; PULSE 88; TEMP 97.6
== END 2017-04-19 05:37 | disposition home or self-care (01) ==
LOC: C.ER 22:06 → C.9OBSV 23:05
PROVIDERS: ADMIT Student in an Organized Health Care Education/Training Program; ATTEND Student in an Organized Health Care Education/Training Program
DX: F10.129 Alcohol abuse with intoxication, unspecified (principal); E11.9 Type 2 diabetes mellitus without complications; Y90.9 Presence of alcohol in blood, level not specified
CPT/HCPCS: 82948; 99284; G0378

== ENCOUNTER 2017-04-19 22:55 | Emergency (ER) | payer MEDICAID ==
[2017-04-19 22:56] VITALS: BMI 26.4
--- NOTE | 2017-04-20 05:00 | C.PDOC ---
History Of Present Illness 56 year old male presents to the ED intoxicated with EtOH on breath. Patient admits to consuming alcohol and alcohol abuse but denies any physical complaints at this time. Time Seen by Provider: 04/20/17 00:47 Chief Complaint (Nursing): Substance Abuse History Per: Patient History/Exam Limitations: no limitations Onset/Duration Of Symptoms: Hrs Current Symptoms Are (Timing): Still Present Suicide/Self Injury Attempted (Context): None Modifying Factor(s): Alcohol Associated Symptoms: denies: Suicidal Thoughts, Suicidal Plan Involuntary Hold By: None Recent travel outside of the [place]: No Additional History Per: Prior Records Past Medical History Reviewed: Historical Data, Nursing Documentation, Vital Signs - Medical History PMH: Anxiety, Arthritis, Bronchitis, CAD, Depression, 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 sheet writer, not aware), Fractures, Gastritis, Gall Bladder Disease (s/p cholecystectomy), HTN, Post Traumatic Stress Disorder, Rheumatoid Arthritis, Seizures, Chronic Pain Surgical History: Cholecystectomy - [facility] Procedures ALCOHOL DETOXIFICATION (07/04/15) APPLICATION OF SPLINT (03/20/13) CLOSURE SKIN & SUBCUTANEOUS NEC (08/14/13) DETOXIFICATION SERVICES FOR SUBSTANCE ABUSE TREATMENT (03/22/16) ESOPHAGOGASTRODUODENOSCOPY [EGD] W/CLOSED BIOPSY (02/16/15) OTHER GROUP THERAPY (03/12/13) PHYSICAL THERAPY NEC (07/04/15) TETANUS TOXOID ADMINIST (01/19/14) Family History: States: Unknown Family Hx - Social History Hx Tobacco Use: No Hx Alcohol Use: Yes Hx Substance Use: No - Immunization History Hx Tetanus Toxoid Vaccination: Yes Hx Influenza Vaccination: Yes Hx Pneumococcal Vaccination: Yes Review Of Systems Constitutional: Positive for: Fever, Chills Cardiovascular: Negative for: Chest Pain, Palpitations Respiratory: Negative for: Cough, Shortness of Breath Gastrointestinal: Negative for: Nausea, Abdominal Pain, Diarrhea Neurological: Negative for: Headache Psych: Negative for: Suicidal ideation Physical Exam - Physical Exam Appears: Non-toxic, No Acute Distress Skin: Warm, Dry Head: Atraumatic Eye(s): bilateral: Normal Inspection Oral Mucosa: Moist Neck: Supple Chest: Symmetrical, No Deformity Cardiovascular: Rhythm Regular Respiratory: No Rales, No Rhonchi, No Stridor, No Wheezing Gastrointestinal/Abdominal: Soft, No Tenderness, No Distention, No Guarding, No Rebound Extremity: Normal ROM, No Tenderness Neurological/Psych: Oriented x3 ED Course And Treatment Reevaluation Time: 05:04 Reassessment Condition: Improved Medical Decision Making Medical Decision Making: chronic substance abuse ED OBSERVATION Date of observation admission: 04/20/17 Time of observation admission: 02:00 - Observation admission statement Patient is being placed in observation because:: Intoxication - Goals of Observation Goals of observation are:: sobriety - Progress Note Progress Note: 04/20/17 02:03 Patient is resting comfortably and in no acute distress. Disposition Doctor Will See Patient In The: Office Counseled Patient/Family Regarding: Studies Performed, Diagnosis - Disposition Disposition: HOME/ ROUTINE Disposition Time: 05:04 Condition: GOOD - Clinical Impression Clinical Impression: Alcohol intoxication - Scribe Statement The provider has reviewed the documentation as recorded by the Rominaibjosé miguel Noel All medical record entries made by the Jada were at my direction and personally dictated by me. I have reviewed the chart and agree that the record accurately reflects my personal performance of the history, physical exam, medical decision making, and the department course for this patient. I have also personally directed, reviewed, and agree with the discharge instructions and disposition.
[2017-04-20 05:15] VITALS: BP 150/86; PULSE 76; RESP 16; TEMP 97.5; O2SAT 100
== END 2017-04-20 05:02 | disposition home or self-care (01) ==
LOC: C.ER 22:55
DX: F10.129 Alcohol abuse with intoxication, unspecified (principal)

== ENCOUNTER 2017-04-21 22:15 | Observation (INO) | payer MEDICAID ==
[2017-04-21 22:16] VITALS: BMI 26.4
[2017-04-21 22:22] VITALS: RESP 20; O2SAT 95
--- NOTE | 2017-04-22 02:22 | C.PDOC ---
History Of Present Illness 56 year old male presents to the ED intoxicated with EtOH on breath. Patient has numerous visit in the ER for the same complaints. Patient admits to consuming alcohol and alcohol abuse but denies any physical complaints at this time. Time Seen by Provider: 04/21/17 23:11 Chief Complaint (Nursing): Abdominal Pain History Per: Patient History/Exam Limitations: no limitations Onset/Duration Of Symptoms: Hrs Current Symptoms Are (Timing): Still Present Severity: Mild Associated Symptoms: denies: Fever, Chills, Nausea, Vomiting Recent travel outside of the [place]: No Additional History Per: Patient Past Medical History Reviewed: Historical Data, Nursing Documentation, Vital Signs Vital Signs: Last Vital Signs Temp 97.9 F 04/21/17 22:19 Pulse 97 H 04/21/17 22:19 Resp 20 04/21/17 22:19 BP 133/83 04/21/17 22:19 Pulse Ox 95 04/22/17 02:28 - Medical History PMH: Anxiety, Arthritis, Bronchitis, CAD, Depression, 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 continuity writer, not aware), Fractures, Gastritis, Gall Bladder Disease (s/p cholecystectomy), HTN, Post Traumatic Stress Disorder, Rheumatoid Arthritis, Seizures, Chronic Pain Denies: Chronic Kidney Disease Surgical History: Cholecystectomy - [facility] Procedures ALCOHOL DETOXIFICATION (07/04/15) APPLICATION OF SPLINT (03/20/13) CLOSURE SKIN & SUBCUTANEOUS NEC (08/14/13) DETOXIFICATION SERVICES FOR SUBSTANCE ABUSE TREATMENT (03/22/16) ESOPHAGOGASTRODUODENOSCOPY [EGD] W/CLOSED BIOPSY (02/16/15) OTHER GROUP THERAPY (03/12/13) PHYSICAL THERAPY NEC (07/04/15) TETANUS TOXOID ADMINIST (01/19/14) Family History: States: Unknown Family Hx - Social History Hx Tobacco Use: No Hx Alcohol Use: Yes Hx Substance Use: No - Immunization History Hx Tetanus Toxoid Vaccination: Yes Hx Influenza Vaccination: Yes Hx Pneumococcal Vaccination: Yes Review Of Systems Except As Marked, All Systems Reviewed And Found Negative. Constitutional: Positive for: Other (ETOH Intoxicated). Negative for: Fever, Chills Cardiovascular: Negative for: Chest Pain Respiratory: Negative for: Shortness of Breath Gastrointestinal: Negative for: Nausea, Vomiting, Abdominal Pain, Diarrhea Psych: Negative for: Suicidal ideation, Other (Homicidal ideation) Physical Exam - Physical Exam Appears: Non-toxic, No Acute Distress, Other (Intoxicated, (+) AOB) Skin: Warm, Dry Head: Atraumatic, Normacephalic Eye(s): bilateral: Normal Inspection Cardiovascular: Rhythm Regular Respiratory: Normal Breath Sounds, No Accessory Muscle Use, No Rales, No Rhonchi , No Wheezing Gastrointestinal/Abdominal: Soft, No Tenderness Neurological/Psych: Oriented x3, No Normal Speech (Slurred speak), Other (No focal deficit) Gait: Unsteady ED Course And Treatment O2 Sat by Pulse Oximetry: 95 (RA) Pulse Ox Interpretation: Normal Reevaluation Time: 04:41 Reassessment Condition: Improved Medical Decision Making Medical Decision Making: Impression: 56 year old male presents to the ED intoxicated with EtOH on breath. Plans: -ED Obs -Reassess ED OBSERVATION Date of observation admission: 04/21/17 Time of observation admission: 23:26 - Observation admission statement Patient is being placed in observation because:: ETOH intoxication - Goals of Observation Goals of observation are:: Sobriety Disposition Doctor Will See Patient In The: Office Counseled Patient/Family Regarding: Studies Performed, Diagnosis - Disposition Disposition: HOME/ ROUTINE Disposition Time: 04:41 Condition: GOOD - Clinical Impression Clinical Impression: Alcohol abuse with intoxication - Scribe Statement The provider has reviewed the documentation as recorded by the Scribe Rhoda morillo All medical record entries made by the Rominaibjosé miguel were at my direction and personally dictated by me. I have reviewed the chart and agree that the record accurately reflects my personal performance of the history, physical exam, medical decision making, and the department course for this patient. I have also personally directed, reviewed, and agree with the discharge instructions and disposition.
[2017-04-22 05:37] VITALS: BP 131/79; PULSE 90; TEMP 98
== END 2017-04-22 04:41 | disposition home or self-care (01) ==
LOC: C.ER 22:15 → C.9OBSV 23:12
PROVIDERS: ADMIT Internal Medicine; ATTEND Internal Medicine
DX: F10.129 Alcohol abuse with intoxication, unspecified (principal); E11.9 Type 2 diabetes mellitus without complications
CPT/HCPCS: 82948; 99285; G0378

== ENCOUNTER 2017-04-24 22:11 | Observation (INO) | payer MEDICAID ==
[2017-04-24 22:11] VITALS: BMI 26.4
[2017-04-24 23:01] VITALS: TEMP 97.8
--- NOTE | 2017-04-24 23:15 | C.PDOC ---
History Of Present Illness Patient presents to ER with acute ETOH intoxication. Denies any physical complaints at this time. Time Seen by Provider: 04/24/17 23:13 Chief Complaint (Nursing): Substance Abuse History Per: Patient History/Exam Limitations: no limitations Onset/Duration Of Symptoms: Hrs Current Symptoms Are (Timing): Still Present Suicide/Self Injury Attempted (Context): None Modifying Factor(s): Alcohol Severity: None Pain Scale Rating Of: 0 Associated Symptoms: denies: Depression, Suicidal Thoughts, Suicidal Plan Involuntary Hold By: None Recent travel outside of the [place]: No Past Medical History Reviewed: Historical Data, Nursing Documentation, Vital Signs Vital Signs: Last Vital Signs Temp 97.8 F 04/24/17 23:01 Pulse 82 04/25/17 03:27 Resp 16 04/25/17 03:27 BP 135/85 04/25/17 03:27 Pulse Ox 97 04/25/17 03:27 - Medical History PMH: Anxiety, Arthritis, Bronchitis, CAD, Depression, 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 sports book writer, not aware), Fractures, Gastritis, Gall Bladder Disease (s/p cholecystectomy), HTN, Post Traumatic Stress Disorder, Rheumatoid Arthritis, Seizures, Chronic Pain Surgical History: [facility]cystectomy - [facility] Procedures ALCOHOL DETOXIFICATION (07/04/15) APPLICATION OF SPLINT (03/20/13) CLOSURE SKIN & SUBCUTANEOUS NEC (08/14/13) DETOXIFICATION SERVICES FOR SUBSTANCE ABUSE TREATMENT (03/22/16) ESOPHAGOGASTRODUODENOSCOPY [EGD] W/CLOSED BIOPSY (02/16/15) OTHER GROUP THERAPY (03/12/13) PHYSICAL THERAPY NEC (07/04/15) TETANUS TOXOID ADMINIST (01/19/14) Family History: States: No Known Family Hx - Social History Hx Tobacco Use: No Hx Alcohol Use: Yes Hx Substance Use: No - Immunization History Hx Tetanus Toxoid Vaccination: Yes Hx Influenza Vaccination: Yes Hx Pneumococcal Vaccination: Yes Review Of Systems Constitutional: Negative for: Fever, Chills Gastrointestinal: Negative for: Nausea, Vomiting Physical Exam - Physical Exam Appears: Non-toxic, Other (ETOH on breath) Skin: Warm, Dry Oral Mucosa: Moist Chest: Symmetrical, No Tenderness Cardiovascular: Rhythm Regular, No Murmur Respiratory: No Rales, No Rhonchi, No Wheezing Gastrointestinal/Abdominal: Soft, No Tenderness Neurological/Psych: Oriented x3 ED Course And Treatment O2 Sat by Pulse Oximetry: 98 Pulse Ox Interpretation: Normal Reevaluation Time: 05:20 Reassessment Condition: Improved ED OBSERVATION Discharge: Yes Date of observation admission: 04/24/17 Time of observation admission: 22:51 - Observation admission statement Patient is being placed in observation because:: Acute ETOH intoxication - Goals of Observation Goals of observation are:: Sobriety - Progress Note Progress Note: 04/25/17 00:21 vitals stable 04/25/17 01:26 arousable Disposition Counseled Patient/Family Regarding: Studies Performed, Diagnosis, Need For Followup - Disposition Disposition: HOME/ ROUTINE Disposition Time: 23:14 Condition: FAIR - Clinical Impression Clinical Impression: Alcohol abuse with intoxication - Scribe Statement The provider has reviewed the documentation as recorded by the Scribjosé miguel Ramirez All medical record entries made by the Rominaibjosé miguel were at my direction and personally dictated by me. I have reviewed the chart and agree that the record accurately reflects my personal performance of the history, physical exam, medical decision making, and the department course for this patient. I have also personally directed, reviewed, and agree with the discharge instructions and disposition.
[2017-04-25 03:27] VITALS: BP 135/85; PULSE 82; RESP 16
[2017-04-25 05:21] VITALS: O2SAT 98
== END 2017-04-25 05:21 | disposition home or self-care (01) ==
LOC: C.ER 22:11 → C.9OBSV 23:15
PROVIDERS: ADMIT Emergency Medicine; ATTEND Emergency Medicine
DX: F10.129 Alcohol abuse with intoxication, unspecified (principal); Y90.9 Presence of alcohol in blood, level not specified
CPT/HCPCS: G0378 ×2

== ENCOUNTER 2017-04-25 20:54 | Emergency (ER) | payer MEDICAID ==
[2017-04-25 20:54] VITALS: BMI 26.4
[2017-04-25 21:46] VITALS: RESP 16
--- NOTE | 2017-04-26 03:07 | C.PDOC ---
History Of Present Illness 56 year old male who presents to the ER with acute ETOH intoxication. Denies physical complaints at this time. Time Seen by Provider: 04/26/17 00:07 Chief Complaint (Nursing): Substance Abuse History Per: Patient History/Exam Limitations: no limitations Onset/Duration Of Symptoms: Hrs Current Symptoms Are (Timing): Still Present Suicide/Self Injury Attempted (Context): None Modifying Factor(s): Alcohol Associated Symptoms: denies: Depression, Suicidal Thoughts, Suicidal Plan Involuntary Hold By: None Recent travel outside of the [place]: No Past Medical History Reviewed: Historical Data, Nursing Documentation, Vital Signs Vital Signs: Last Vital Signs Temp 97.7 F 04/26/17 01:23 Pulse 73 04/26/17 01:23 Resp 16 04/26/17 01:23 BP 143/80 04/26/17 01:23 Pulse Ox 99 04/26/17 03:09 - Medical History PMH: Anxiety, Arthritis, Bronchitis, CAD, Depression, 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 chief, not aware), Fractures, Gastritis, Gall Bladder Disease (s/p cholecystectomy), HTN, Post Traumatic Stress Disorder, Rheumatoid Arthritis, Seizures, Chronic Pain Surgical History: Cholecystectomy - [facility] Procedures ALCOHOL DETOXIFICATION (07/04/15) APPLICATION OF SPLINT (03/20/13) CLOSURE SKIN & SUBCUTANEOUS NEC (08/14/13) DETOXIFICATION SERVICES FOR SUBSTANCE ABUSE TREATMENT (03/22/16) ESOPHAGOGASTRODUODENOSCOPY [EGD] W/CLOSED BIOPSY (02/16/15) OTHER GROUP THERAPY (03/12/13) PHYSICAL THERAPY NEC (07/04/15) TETANUS TOXOID ADMINIST (01/19/14) Family History: States: Unknown Family Hx - Social History Hx Tobacco Use: No Hx Alcohol Use: Yes Hx Substance Use: No - Immunization History Hx Tetanus Toxoid Vaccination: Yes Hx Influenza Vaccination: Yes Hx Pneumococcal Vaccination: Yes Review Of Systems Constitutional: Negative for: Fever, Chills Gastrointestinal: Negative for: Nausea, Vomiting Physical Exam - Physical Exam Appears: Non-toxic, No Acute Distress, Other (ETOH on breath) Skin: Normal Color, Warm, Dry Head: Atraumatic, Normacephalic Oral Mucosa: Moist Chest: Symmetrical, No Tenderness Cardiovascular: Rhythm Regular, No Murmur Respiratory: Normal Breath Sounds, No Rales, No Rhonchi, No Wheezing Neurological/Psych: Oriented x3, Normal Speech, Normal Cognition ED Course And Treatment O2 Sat by Pulse Oximetry: 99 (Room air) Pulse Ox Interpretation: Normal Reevaluation Time: 05:18 Reassessment Condition: Improved (stable gait, as usual) Disposition Doctor Will See Patient In The: Office Counseled Patient/Family Regarding: Studies Performed, Diagnosis - Disposition Disposition: HOME/ ROUTINE Disposition Time: 05:18 Condition: GOOD - Clinical Impression Clinical Impression: Alcoholic intoxication - Scribe Statement The provider has reviewed the documentation as recorded by the Scribjosé miguel Ramirez All medical record entries made by the Rominaibjosé miguel were at my direction and personally dictated by me. I have reviewed the chart and agree that the record accurately reflects my personal performance of the history, physical exam, medical decision making, and the department course for this patient. I have also personally directed, reviewed, and agree with the discharge instructions and disposition.
[2017-04-26 05:32] VITALS: BP 132/78; PULSE 78; TEMP 97.9; O2SAT 98
== END 2017-04-26 05:32 | disposition home or self-care (01) ==
LOC: C.ER 20:54
DX: F10.129 Alcohol abuse with intoxication, unspecified (principal); Y90.9 Presence of alcohol in blood, level not specified

== ENCOUNTER 2017-04-27 23:55 | Observation (INO) | payer MEDICAID ==
[2017-04-27 23:56] VITALS: BMI 26.4
--- NOTE | 2017-04-28 00:12 | C.PDOC ---
History Of Present Illness Patient presents to the ER with acute ETOH intoxication. Denies any physical complaints at this time. Time Seen by Provider: 04/28/17 00:09 Chief Complaint (Nursing): Substance Abuse History Per: Patient History/Exam Limitations: no limitations Onset/Duration Of Symptoms: Hrs Current Symptoms Are (Timing): Still Present Suicide/Self Injury Attempted (Context): None Modifying Factor(s): Alcohol Severity: None Pain Scale Rating Of: 0 Associated Symptoms: denies: Depression, Suicidal Thoughts, Suicidal Plan Involuntary Hold By: None Recent travel outside of the [place]: No Past Medical History Reviewed: Historical Data, Nursing Documentation, Vital Signs Vital Signs: Last Vital Signs Temp 97.1 F L 04/28/17 05:04 Pulse 82 04/28/17 05:04 Resp 20 04/28/17 05:04 BP 157/84 H 04/28/17 05:04 Pulse Ox 96 04/28/17 05:04 - Medical History PMH: Anxiety, Arthritis, Bronchitis, CAD, Depression, 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 letterer or painter, not aware), Fractures, Gastritis, Gall Bladder Disease (s/p cholecystectomy), HTN, Post Traumatic Stress Disorder, Rheumatoid Arthritis, Seizures, Chronic Pain Surgical History: Cholecystectomy - [facility] Procedures ALCOHOL DETOXIFICATION (07/04/15) APPLICATION OF SPLINT (03/20/13) CLOSURE SKIN & SUBCUTANEOUS NEC (08/14/13) DETOXIFICATION SERVICES FOR SUBSTANCE ABUSE TREATMENT (03/22/16) ESOPHAGOGASTRODUODENOSCOPY [EGD] W/CLOSED BIOPSY (02/16/15) OTHER GROUP THERAPY (03/12/13) PHYSICAL THERAPY NEC (07/04/15) TETANUS TOXOID ADMINIST (01/19/14) Family History: States: No Known Family Hx - Social History Hx Tobacco Use: No Hx Alcohol Use: Yes Hx Substance Use: No - Immunization History Hx Tetanus Toxoid Vaccination: Yes Hx Influenza Vaccination: Yes Hx Pneumococcal Vaccination: Yes Review Of Systems Constitutional: Negative for: Fever, Chills Gastrointestinal: Negative for: Nausea, Vomiting, Diarrhea Physical Exam - Physical Exam Appears: Non-toxic, No Acute Distress, Other (ETOH on breath) Skin: Warm, Dry Oral Mucosa: Moist Chest: Symmetrical, No Tenderness Cardiovascular: Rhythm Regular, No Murmur Respiratory: No Rales, No Rhonchi, No Wheezing Gastrointestinal/Abdominal: Soft, No Tenderness Neurological/Psych: Oriented x3 ED OBSERVATION Discharge: Yes Date of observation admission: 04/28/17 Time of observation admission: 00:11 - Observation admission statement Patient is being placed in observation because:: acute alcohol intoxication - Goals of Observation Goals of observation are:: sobriety - Progress Note Progress Note: 04/28/17 00:11 vitals stable 04/28/17 04:06 no complaints. arousable Disposition Counseled Patient/Family Regarding: Studies Performed, Diagnosis, Need For Followup - Disposition Disposition: HOME/ ROUTINE Disposition Time: 00:09 Condition: FAIR - Clinical Impression Clinical Impression: Alcoholism /alcohol abuse, Alcohol abuse with intoxication - Scribe Statement The provider has reviewed the documentation as recorded by the Scribjosé miguel Ramirez All medical record entries made by the Rominaibjosé miguel were at my direction and personally dictated by me. I have reviewed the chart and agree that the record accurately reflects my personal performance of the history, physical exam, medical decision making, and the department course for this patient. I have also personally directed, reviewed, and agree with the discharge instructions and disposition.
[2017-04-28 01:06] VITALS: TEMP 97.1
[2017-04-28 05:05] VITALS: BP 157/84; PULSE 82; RESP 20; O2SAT 96
== END 2017-04-28 05:58 | disposition home or self-care (01) ==
LOC: C.ER 23:55 → C.9OBSV 04-28 00:12
PROVIDERS: ADMIT Emergency Medicine; ATTEND Emergency Medicine
DX: F10.129 Alcohol abuse with intoxication, unspecified (principal)
CPT/HCPCS: 82948; 99284; G0378

== ENCOUNTER 2017-04-28 22:06 | Observation (INO) | payer MEDICAID ==
[2017-04-28 22:07] VITALS: BMI 26.4
[2017-04-28 22:21] VITALS: RESP 18
--- NOTE | 2017-04-28 22:36 | C.PDOC ---
History Of Present Illness Patient presents to the ED for evaluation of acute alcohol intoxication for an unknown duration. Patient is familiar to ED staff and has had many prior presentations concerning alcohol intoxication. Patient admits to drinking earlier today. He denies suicidal/homicidal ideation and has no physical complaints at this time. Time Seen by Provider: 04/28/17 22:32 Chief Complaint (Nursing): Substance Abuse History Per: Patient History/Exam Limitations: intoxication Onset/Duration Of Symptoms: Unknown Current Symptoms Are (Timing): Still Present Suicide/Self Injury Attempted (Context): None Modifying Factor(s): Alcohol Severity: Mild Pain Scale Rating Of: 3 Associated Symptoms: denies: Suicidal Thoughts, Suicidal Plan Involuntary Hold By: None Recent travel outside of the [place]: No Additional History Per: Patient Past Medical History Reviewed: Historical Data, Nursing Documentation, Vital Signs Vital Signs: Last Vital Signs Temp 98.1 F 04/28/17 22:38 Pulse 80 04/28/17 22:38 Resp 18 04/28/17 22:38 BP 132/84 04/28/17 22:38 Pulse Ox 96 04/28/17 22:54 - Medical History PMH: Anxiety, Arthritis, Bronchitis, CAD, Depression, 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 appeals writer, not aware), Fractures, Gastritis, Gall Bladder Disease (s/p cholecystectomy), HTN, Post Traumatic Stress Disorder, Rheumatoid Arthritis, Seizures, Chronic Pain Surgical History: Cholecystectomy - [facility] Procedures ALCOHOL DETOXIFICATION (07/04/15) APPLICATION OF SPLINT (03/20/13) CLOSURE SKIN & SUBCUTANEOUS NEC (08/14/13) DETOXIFICATION SERVICES FOR SUBSTANCE ABUSE TREATMENT (03/22/16) ESOPHAGOGASTRODUODENOSCOPY [EGD] W/CLOSED BIOPSY (02/16/15) OTHER GROUP THERAPY (03/12/13) PHYSICAL THERAPY NEC (07/04/15) TETANUS TOXOID ADMINIST (01/19/14) Family History: States: Unknown Family Hx - Social History Hx Tobacco Use: No Hx Alcohol Use: Yes Hx Substance Use: No - Immunization History Hx Tetanus Toxoid Vaccination: Yes Hx Influenza Vaccination: Yes Hx Pneumococcal Vaccination: Yes Review Of Systems Constitutional: Negative for: Fever, Chills Cardiovascular: Negative for: Chest Pain, Palpitations Gastrointestinal: Negative for: Nausea, Vomiting, Abdominal Pain, Diarrhea, Constipation Skin: Negative for: Rash, Lesions, Jaundice, Bruising Psych: Positive for: Other (+ETOH intoxication ). Negative for: Suicidal ideation Physical Exam - Physical Exam Appears: No Acute Distress, Other (+visibly intoxicated ) Skin: Normal Color, Warm, Dry Head: Normacephalic Eye(s): bilateral: Normal Inspection Oral Mucosa: Moist, Other (+alcohol on breath ) Neck: Supple Chest: Symmetrical, No Deformity, No Tenderness Cardiovascular: Rhythm Regular, No Murmur Respiratory: No Rales, No Rhonchi, No Wheezing Extremity: Normal ROM, Capillary Refill (less than 2 seconds ) Neurological/Psych: Other (arousable to touch and verbal stimuli ) Gait: Unsteady ED Course And Treatment O2 Sat by Pulse Oximetry: 96 (on RA) Pulse Ox Interpretation: Normal Reevaluation Time: 05:26 Reassessment Condition: Improved ED OBSERVATION Discharge: Yes Date of observation admission: 04/28/17 Time of observation admission: 22:34 - Observation admission statement Patient is being placed in observation because:: acute alcohol intoxication - Goals of Observation Goals of observation are:: sobriety - Progress Note Progress Note: 04/28/17 22:34 vitals stable 04/29/17 02:26 no complaints 04/29/17 05:27 ambulating to the bathroom unassisted Disposition Counseled Patient/Family Regarding: Studies Performed, Diagnosis, Need For Followup - Disposition Disposition: HOME/ ROUTINE Disposition Time: 22:33 Condition: FAIR - Clinical Impression Clinical Impression: Acute alcohol intoxication, Chronic alcoholism
[2017-04-28 22:39] VITALS: TEMP 98.1
[2017-04-29 07:12] VITALS: BP 136/87; PULSE 78; O2SAT 100
== END 2017-04-29 05:28 | disposition home or self-care (01) ==
LOC: C.ER 22:06 → C.9OBSV 22:34
PROVIDERS: ADMIT Emergency Medicine; ATTEND Emergency Medicine
DX: F10.129 Alcohol abuse with intoxication, unspecified (principal); E11.9 Type 2 diabetes mellitus without complications
CPT/HCPCS: 82948; G0378

== ENCOUNTER 2017-04-30 22:26 | Emergency (ER) | payer MEDICAID ==
[2017-04-30 22:27] VITALS: BMI 26.4
[2017-04-30 22:58] VITALS: TEMP 98.3
--- NOTE | 2017-04-30 23:00 | C.PDOC ---
History Of Present Illness 56 year old male who presents to the ER with acute ETOH intoxication. Denies any physical complaints at this time. Time Seen by Provider: 04/30/17 22:59 Chief Complaint (Nursing): Substance Abuse History Per: Patient History/Exam Limitations: no limitations Onset/Duration Of Symptoms: Hrs Current Symptoms Are (Timing): Still Present Suicide/Self Injury Attempted (Context): None Modifying Factor(s): Alcohol Associated Symptoms: denies: Depression, Suicidal Thoughts, Suicidal Plan Involuntary Hold By: None Recent travel outside of the [place]: No Past Medical History Reviewed: Historical Data, Nursing Documentation, Vital Signs Vital Signs: Last Vital Signs Temp 98.3 F 04/30/17 22:54 Pulse 77 05/01/17 04:55 Resp 16 05/01/17 04:55 BP 154/86 H 05/01/17 04:55 Pulse Ox 97 05/01/17 05:33 - Medical History PMH: Anxiety, Arthritis, Bronchitis, CAD, Depression, 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 senior grant writer, not aware), Fractures, Gastritis, Gall Bladder Disease (s/p cholecystectomy), HTN, Post Traumatic Stress Disorder, Rheumatoid Arthritis, Seizures, Chronic Pain Surgical History: Cholecystectomy - [facility] Procedures ALCOHOL DETOXIFICATION (07/04/15) APPLICATION OF SPLINT (03/20/13) CLOSURE SKIN & SUBCUTANEOUS NEC (08/14/13) DETOXIFICATION SERVICES FOR SUBSTANCE ABUSE TREATMENT (03/22/16) ESOPHAGOGASTRODUODENOSCOPY [EGD] W/CLOSED BIOPSY (02/16/15) OTHER GROUP THERAPY (03/12/13) PHYSICAL THERAPY NEC (07/04/15) TETANUS TOXOID ADMINIST (01/19/14) Family History: States: Unknown Family Hx - Social History Hx Tobacco Use: No Hx Alcohol Use: Yes Hx Substance Use: No - Immunization History Hx Tetanus Toxoid Vaccination: Yes Hx Influenza Vaccination: Yes Hx Pneumococcal Vaccination: Yes Review Of Systems Constitutional: Negative for: Fever, Chills Cardiovascular: Negative for: Chest Pain, Palpitations Respiratory: Negative for: Cough, Shortness of Breath, Wheezing Gastrointestinal: Negative for: Nausea, Vomiting, Abdominal Pain, Diarrhea Skin: Negative for: Rash Neurological: Negative for: Weakness, Numbness Physical Exam - Physical Exam Appears: Non-toxic, No Acute Distress, Other (ETOH on breath) Skin: Normal Color, Warm, Dry Head: Atraumatic, Normacephalic Oral Mucosa: Moist Chest: Symmetrical, No Tenderness Cardiovascular: Rhythm Regular, No Murmur Respiratory: Normal Breath Sounds, No Rales, No Rhonchi, No Wheezing Gastrointestinal/Abdominal: Soft, No Tenderness Neurological/Psych: Oriented x3, Normal Speech, Normal Cognition ED Course And Treatment O2 Sat by Pulse Oximetry: 97 (Room air) Pulse Ox Interpretation: Normal Medical Decision Making Medical Decision Making: the pt was a&ox3 and ambulatory w steady gait prior to dc ED OBSERVATION Discharge: Yes Date of observation admission: 04/30/17 Time of observation admission: 23:28 - Observation admission statement Patient is being placed in observation because:: Acute ETOH intoxication - Goals of Observation Goals of observation are:: Sobriety Disposition - Disposition Referrals: Non [facility] Provider, [Primary Care Provider] - Disposition: HOME/ ROUTINE Disposition Time: 05:32 Condition: STABLE Forms: General Discharge Instructions - Clinical Impression Clinical Impression: Alcohol intoxication - Scribe Statement The provider has reviewed the documentation as recorded by the Scribjosé miguel Ramirez All medical record entries made by the Scribe were at my direction and personally dictated by me. I have reviewed the chart and agree that the record accurately reflects my personal performance of the history, physical exam, medical decision making, and the department course for this patient. I have also personally directed, reviewed, and agree with the discharge instructions and disposition.
[2017-05-01 04:55] VITALS: BP 154/86; PULSE 77; RESP 16
[2017-05-01 05:33] VITALS: O2SAT 97
== END 2017-05-01 06:17 | disposition home or self-care (01) ==
LOC: C.ER 22:26 → SUPCPDRO 22:26 → C.ER 05-01 06:17
DX: F10.120 Alcohol abuse with intoxication, uncomplicated (principal); Y90.9 Presence of alcohol in blood, level not specified

== ENCOUNTER 2017-05-01 21:32 | Observation (INO) | payer MEDICAID ==
[2017-05-01 21:32] VITALS: BMI 26.4
--- NOTE | 2017-05-01 22:48 | C.PDOC ---
History Of Present Illness Patient is a 56 y/o male that presents to the ED requesting a place to stay. Patient is well known to ED staff for multiple prior visits for alcohol intoxication. Patient admits to drinking today. Otherwise, denies any injury, trauma, or any other physical complaints at this time. Chief Complaint (Nursing): Substance Abuse History Per: Patient History/Exam Limitations: intoxication Onset/Duration Of Symptoms: Gradual Current Symptoms Are (Timing): Still Present Suicide/Self Injury Attempted (Context): None Modifying Factor(s): Alcohol Severity: None Pain Scale Rating Of: 0 Associated Symptoms: denies: Suicidal Thoughts, Suicidal Plan Involuntary Hold By: None Recent travel outside of the [place]: No Additional History Per: Prior Records Past Medical History Reviewed: Historical Data, Nursing Documentation, Vital Signs Vital Signs: Last Vital Signs Temp 98.0 F 05/02/17 05:51 Pulse 93 H 05/02/17 05:51 Resp 20 05/02/17 05:51 BP 119/78 05/02/17 05:51 Pulse Ox 98 05/02/17 05:51 - Medical History PMH: Anxiety, Arthritis, Bronchitis, CAD, Depression, 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 news writer, not aware), Fractures (Rt. Fa.), Gastritis, Gall Bladder Disease (s/p cholecystectomy), HTN, Post Traumatic Stress Disorder, Rheumatoid Arthritis, Seizures, Chronic Pain Denies: Chronic Kidney Disease Surgical History: Cholecystectomy - [facility] Procedures ALCOHOL DETOXIFICATION (07/04/15) APPLICATION OF SPLINT (03/20/13) CLOSURE SKIN & SUBCUTANEOUS NEC (08/14/13) DETOXIFICATION SERVICES FOR SUBSTANCE ABUSE TREATMENT (03/22/16) ESOPHAGOGASTRODUODENOSCOPY [EGD] W/CLOSED BIOPSY (02/16/15) OTHER GROUP THERAPY (03/12/13) PHYSICAL THERAPY NEC (07/04/15) TETANUS TOXOID ADMINIST (01/19/14) Family History: States: Unknown Family Hx - Social History Hx Tobacco Use: No Hx Alcohol Use: Yes Hx Substance Use: No - Immunization History Hx Tetanus Toxoid Vaccination: Yes Hx Influenza Vaccination: Yes Hx Pneumococcal Vaccination: Yes Review Of Systems Except As Marked, All Systems Reviewed And Found Negative. Constitutional: Negative for: Fever, Chills Cardiovascular: Negative for: Chest Pain, Palpitations Respiratory: Negative for: Cough, Shortness of Breath Gastrointestinal: Negative for: Nausea, Vomiting, Abdominal Pain Skin: Negative for: Rash, Bruising Neurological: Negative for: Headache, Dizziness Psych: Negative for: Suicidal ideation Physical Exam - Physical Exam Appears: Non-toxic, No Acute Distress, Other (EtOH on breath; no signs of injury ) Skin: Normal Color, Warm, Dry Head: Atraumatic, Normacephalic Neck: Normal ROM, Supple Chest: Symmetrical Extremity: Normal ROM, No Deformity Neurological/Psych: Oriented x3, Normal Speech ED Course And Treatment O2 Sat by Pulse Oximetry: 97 (on RA) Pulse Ox Interpretation: Normal ED OBSERVATION Date of observation admission: 05/01/17 Time of observation admission: 22:50 - Observation admission statement Patient is being placed in observation because:: Alcohol intoxication - Goals of Observation Goals of observation are:: Sobriety - Progress Note Progress Note: 05/01/17 22:51 Patient is resting comfortably in bed, no acute distress. 05/02/17 05:07 Patient resting comfortably, denies any complaints. Disposition Counseled Patient/Family Regarding: Diagnosis - Disposition Disposition: HOME/ ROUTINE Disposition Time: 05:50 Condition: STABLE - POA Present On Arrival: None - Clinical Impression Clinical Impression: Alcohol intoxication - Scribe Statement The provider has reviewed the documentation as recorded by the Rominaibjosé miguel Fajardo All medical record entries made by the Jada were at my direction and personally dictated by me. I have reviewed the chart and agree that the record accurately reflects my personal performance of the history, physical exam, medical decision making, and the department course for this patient. I have also personally directed, reviewed, and agree with the discharge instructions and disposition.
[2017-05-02 05:51] VITALS: BP 119/78; PULSE 93; RESP 20; TEMP 98
[2017-05-02 13:00] VITALS: O2SAT 97
== END 2017-05-02 05:58 | disposition home or self-care (01) ==
LOC: C.ER 21:32 → C.9OBSV 22:17
PROVIDERS: ADMIT Emergency Medicine; ATTEND Emergency Medicine
DX: F10.129 Alcohol abuse with intoxication, unspecified (principal); I25.10 Atherosclerotic heart disease of native coronary artery without angina pectoris; E11.9 Type 2 diabetes mellitus without complications; I10 Essential (primary) hypertension; M19.90 Unspecified osteoarthritis, unspecified site; J40 Bronchitis, not specified as acute or chronic; R56.9 Unspecified convulsions; G89.29 Other chronic pain; F43.10 Post-traumatic stress disorder, unspecified; F41.9 Anxiety disorder, unspecified; F32.9 Major depressive disorder, single episode, unspecified; Z87.19 Personal history of other diseases of the digestive system; Z90.49 Acquired absence of other specified parts of digestive tract; Z98.890 Other specified postprocedural states

== ENCOUNTER 2017-05-02 21:24 | Observation (INO) | payer MEDICAID ==
[2017-05-02 21:25] VITALS: BMI 26.4
--- NOTE | 2017-05-02 21:41 | C.PDOC ---
History Of Present Illness Patient is a 56 y/o male that is brought to the ED by EMS for alcohol intoxication. Pt is well known to ED staff for multiple prior visits for intoxication. Pt admits to drinking today. Otherwise, denies any injury, fall, or any other physical complaints at this time. Time Seen by Provider: 05/02/17 21:29 Chief Complaint (Nursing): Abdominal Pain History Per: Patient History/Exam Limitations: no limitations Onset/Duration Of Symptoms: Gradual Current Symptoms Are (Timing): Still Present Severity: None Pain Scale Rating Of: 0 Radiation Of Pain To:: None Exacerbating Factors: None Alleviating Factors: None Recent travel outside of the [place]: No Additional History Per: Prior Records Past Medical History Reviewed: Historical Data, Nursing Documentation, Vital Signs - Medical History PMH: Anxiety, Arthritis, Bronchitis, CAD, Depression, 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 short story writer, not aware), Fractures (Rt. Fa.), Gastritis, Gall Bladder Disease (s/p cholecystectomy), HTN, Post Traumatic Stress Disorder, Rheumatoid Arthritis, Seizures, Chronic Pain Denies: Chronic Kidney Disease Surgical History: Cholecystectomy - [facility] Procedures ALCOHOL DETOXIFICATION (07/04/15) APPLICATION OF SPLINT (03/20/13) CLOSURE SKIN & SUBCUTANEOUS NEC (08/14/13) DETOXIFICATION SERVICES FOR SUBSTANCE ABUSE TREATMENT (03/22/16) ESOPHAGOGASTRODUODENOSCOPY [EGD] W/CLOSED BIOPSY (02/16/15) OTHER GROUP THERAPY (03/12/13) PHYSICAL THERAPY NEC (07/04/15) TETANUS TOXOID ADMINIST (01/19/14) Family History: States: Unknown Family Hx - Social History Hx Tobacco Use: No Hx Alcohol Use: Yes Hx Substance Use: No - Immunization History Hx Tetanus Toxoid Vaccination: Yes Hx Influenza Vaccination: Yes Hx Pneumococcal Vaccination: Yes Review Of Systems Except As Marked, All Systems Reviewed And Found Negative. Constitutional: Negative for: Fever, Chills Cardiovascular: Negative for: Chest Pain, Palpitations Respiratory: Negative for: Cough, Shortness of Breath Gastrointestinal: Negative for: Nausea, Vomiting, Abdominal Pain Skin: Negative for: Rash, Bruising Neurological: Negative for: Headache, Dizziness Psych: Negative for: Suicidal ideation Physical Exam - Physical Exam Appears: Non-toxic, No Acute Distress, Other (EtOH on breath; no signs of injury ) Skin: Normal Color, Warm, Dry, No Rash Head: Atraumatic, Normacephalic Eye(s): bilateral: Normal Inspection Neck: Normal ROM, Supple Chest: Symmetrical Cardiovascular: Rhythm Regular, No Murmur Respiratory: Normal Breath Sounds, No Accessory Muscle Use, No Rales, No Rhonchi , No Wheezing Gastrointestinal/Abdominal: Normal Exam, Soft, No Tenderness, No Distention, No Guarding, No Rebound Extremity: Normal ROM, No Deformity Extremity: Bilateral: Atraumatic Neurological/Psych: Oriented x3, Normal Speech Gait: Unsteady ED Course And Treatment - Laboratory Results Result Diagrams: 05/02/17 22:18 05/02/17 22:58 Medical Decision Making Medical Decision Making: Blood work ordered and reviewed. Patient was given IV fluids, and Thiamine. Contrary to triage, abdomen in neither firm nor distended. Abdomen is soft, and non-tender. 515 pt up and ambulatory w steady gait, says "I'm on the move." ED OBSERVATION Discharge: Yes Date of observation admission: 05/02/17 Time of observation admission: 21:43 - Observation admission statement Patient is being placed in observation because:: alcohol intoxication - Goals of Observation Goals of observation are:: sobriety - Progress Note Progress Note: 05/02/17 21:43 Patient is resting comfortably, no acute distress. Disposition - Disposition Disposition: HOME/ ROUTINE Disposition Time: 05:21 Condition: IMPROVED - Clinical Impression Clinical Impression: Alcohol intoxication - Scribe Statement The provider has reviewed the documentation as recorded by the Rominaibjosé miguel Fajardo All medical record entries made by the Rominaibjosé miguel were at my direction and personally dictated by me. I have reviewed the chart and agree that the record accurately reflects my personal performance of the history, physical exam, medical decision making, and the department course for this patient. I have also personally directed, reviewed, and agree with the discharge instructions and disposition.
[2017-05-02] MEDS ORDERED: Sodium Chloride 0.9% 1,000 ML IV ONE (21:51)
[2017-05-02] MEDS ORDERED: Thiamine 100 mg/ml Inj IV ONE (21:51)
[2017-05-02 22:36] LABS: BASO % 1.2 % (0.0-2.0); EOS # 0.1 K/uL (0.0-0.7); EOS % 3.5 % (0.0-4.0); LYMPH # 1.1 K/uL (1.0-4.3); LYMPH % 29.4 % (20.0-40.0); MEAN CELL VOLUME 108.1 fL (80.0-94.0); MEAN CORPUSCULAR HEMOGLOBIN 35.6 pg (27.0-31.0); MEAN CORPUSCULAR HGB CONC 32.9 g/dL (33.0-37.0); MEAN PLATELET VOLUME 9.1 fL (7.2-11.7); MONO # 0.7 K/uL (0.0-0.8); MONO % 18.4 % (0.0-10.0); NEUT # 1.8 K/uL (1.8-7.0); NEUT % 47.5 % (50.0-75.0); NRBC % 0.3 % (0.0-2.0); RBC 3.1 Mil/uL (4.40-5.90); RED CELL DISTRIBUTION WIDTH 15.9 % (11.5-14.5); WHITE BLOOD COUNT 3.8 K/uL (4.8-10.8)
[2017-05-02 23:11] LABS: ALBUMIN 3.8 g/dL (3.5-5.0)
[2017-05-02 23:14] LABS: ALB/GLOB RATIO 0.9 (1.0-2.1); ALT/SGPT 47 U/L (21-72); AST/SGOT 239 U/L (17-59); BLOOD UREA NITROGEN 8 mg/dL (9-20); GFR AFRICAN-AMERICAN > 60; GFR NON-AFRICAN AMERICAN > 60
[2017-05-02 23:15] LABS: CALCIUM 8.4 mg/dl (8.6-10.4)
[2017-05-03] MEDS ORDERED: Potassium Chloride 20 mEq ER Tab PO STA (00:18)
[2017-05-03 06:49] VITALS: BP 134/88; PULSE 88; RESP 20; TEMP 98.4; O2SAT 97
== END 2017-05-03 05:22 | disposition home or self-care (01) ==
LOC: C.ER 21:24 → C.9OBSV 21:41
PROVIDERS: ADMIT Emergency Medicine; ATTEND Emergency Medicine
DX: F10.129 Alcohol abuse with intoxication, unspecified (principal); R10.9 Unspecified abdominal pain; I25.10 Atherosclerotic heart disease of native coronary artery without angina pectoris; E11.9 Type 2 diabetes mellitus without complications; M19.90 Unspecified osteoarthritis, unspecified site; F41.9 Anxiety disorder, unspecified; F32.9 Major depressive disorder, single episode, unspecified
CPT/HCPCS: 80053; 82948; 85025; 99285; G0378; J3411; J7040

== ENCOUNTER 2017-05-03 22:33 | Observation (INO) | payer MEDICAID ==
[2017-05-03 22:34] VITALS: BMI 26.4
--- NOTE | 2017-05-03 23:34 | C.PDOC ---
History Of Present Illness A 56 y/o M with numerous ER visits, c/o ETOH intoxication. Denies suicidal, homicidal ideation or any physical complaints at this time. Time Seen by Provider: 05/03/17 23:00 Chief Complaint (Nursing): Substance Abuse History Per: Patient History/Exam Limitations: no limitations Onset/Duration Of Symptoms: Hrs Current Symptoms Are (Timing): Still Present Suicide/Self Injury Attempted (Context): None Modifying Factor(s): Alcohol Severity: Mild Associated Symptoms: denies: Suicidal Thoughts, Suicidal Plan Involuntary Hold By: None Recent travel outside of the [place]: No Additional History Per: Patient Past Medical History Reviewed: Historical Data, Nursing Documentation, Vital Signs Vital Signs: Last Vital Signs Temp 97.5 F L 05/04/17 02:01 Pulse 82 05/04/17 02:01 Resp 20 05/04/17 02:01 BP 144/83 05/04/17 02:01 Pulse Ox 96 05/04/17 02:01 - Medical History PMH: Anxiety, Arthritis, Bronchitis, CAD, Depression, 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 sheet writer, not aware), Fractures (Rt. Fa.), Gastritis, Gall Bladder Disease (s/p cholecystectomy), HTN, Post Traumatic Stress Disorder, Rheumatoid Arthritis, Seizures, Chronic Pain Denies: Chronic Kidney Disease Surgical History: Cholecystectomy - [facility] Procedures ALCOHOL DETOXIFICATION (07/04/15) APPLICATION OF SPLINT (03/20/13) CLOSURE SKIN & SUBCUTANEOUS NEC (08/14/13) DETOXIFICATION SERVICES FOR SUBSTANCE ABUSE TREATMENT (03/22/16) ESOPHAGOGASTRODUODENOSCOPY [EGD] W/CLOSED BIOPSY (02/16/15) OTHER GROUP THERAPY (03/12/13) PHYSICAL THERAPY NEC (07/04/15) TETANUS TOXOID ADMINIST (01/19/14) Family History: States: Unknown Family Hx - Social History Hx Tobacco Use: No Hx Alcohol Use: Yes Hx Substance Use: No - Immunization History Hx Tetanus Toxoid Vaccination: Yes Hx Influenza Vaccination: Yes Hx Pneumococcal Vaccination: Yes Review Of Systems Except As Marked, All Systems Reviewed And Found Negative. Constitutional: Positive for: Other (ETOH Intoxicated). Negative for: Fever, Chills Cardiovascular: Negative for: Chest Pain Respiratory: Negative for: Shortness of Breath Gastrointestinal: Negative for: Nausea, Vomiting, Abdominal Pain, Diarrhea Psych: Negative for: Suicidal ideation, Other (Homicidal ideation) Physical Exam - Physical Exam Appears: Non-toxic, No Acute Distress, Other (ETOH intoxicated, (+) AOB) Skin: Warm, Dry Head: Atraumatic, Normacephalic Eye(s): bilateral: Normal Inspection Cardiovascular: Rhythm Regular Respiratory: Normal Breath Sounds, No Accessory Muscle Use, No Rales, No Rhonchi , No Wheezing Gastrointestinal/Abdominal: Soft, No Tenderness Neurological/Psych: Oriented x3, Other (Awake and alert. No focal deficit) ED Course And Treatment O2 Sat by Pulse Oximetry: 97 (RA) Pulse Ox Interpretation: Normal Medical Decision Making Medical Decision Making: Impression: A 56 y/o M with numerous ER visits, c/o ETOH intoxication. ED OBSERVATION Date of observation admission: 05/04/17 Time of observation admission: 00:40 - Observation admission statement Patient is being placed in observation because:: ETOH intoxication - Goals of Observation Goals of observation are:: Sobriety Disposition Counseled Patient/Family Regarding: Diagnosis - Disposition Disposition: HOME/ ROUTINE Disposition Time: 06:24 Condition: STABLE - POA Present On Arrival: None - Clinical Impression Clinical Impression: Alcohol intoxication - Scribe Statement The provider has reviewed the documentation as recorded by the Scribe Rhoda morillo All medical record entries made by the Scribe were at my direction and personally dictated by me. I have reviewed the chart and agree that the record accurately reflects my personal performance of the history, physical exam, medical decision making, and the department course for this patient. I have also personally directed, reviewed, and agree with the discharge instructions and disposition.
[2017-05-04 12:18] VITALS: BP 139/78; PULSE 89; RESP 20; TEMP 97.7; O2SAT 98
== END 2017-05-04 06:23 | disposition home or self-care (01) ==
LOC: C.ER 22:33 → C.9OBSV 23:39
PROVIDERS: ADMIT Emergency Medicine; ATTEND Emergency Medicine
DX: F10.129 Alcohol abuse with intoxication, unspecified (principal); I25.10 Atherosclerotic heart disease of native coronary artery without angina pectoris; E11.9 Type 2 diabetes mellitus without complications; M19.90 Unspecified osteoarthritis, unspecified site; F41.9 Anxiety disorder, unspecified; F32.9 Major depressive disorder, single episode, unspecified; I10 Essential (primary) hypertension; M06.9 Rheumatoid arthritis, unspecified
CPT/HCPCS: 99285; G0378

== ENCOUNTER 2017-05-04 21:11 | Observation (INO) | payer MEDICAID ==
[2017-05-04 21:12] VITALS: BMI 26.4
[2017-05-04] MEDS ORDERED: Multivitamin With Minerals Tab PO STA (21:47)
[2017-05-04] MEDS ORDERED: Pantoprazole 40 mg EC Tab PO STA (21:47)
[2017-05-04] MEDS ORDERED: Pantoprazole 40 mg EC Tab PO ONE (22:11)
--- NOTE | 2017-05-04 22:41 | C.PDOC ---
History Of Present Illness Pt was BIBEMS due to public alcohol intoxication. Time Seen by Provider: 05/04/17 21:42 Chief Complaint (Nursing): Substance Abuse History Per: Patient, EMS History/Exam Limitations: intoxication Onset/Duration Of Symptoms: Unknown (tonight) Current Symptoms Are (Timing): Still Present Suicide/Self Injury Attempted (Context): None Modifying Factor(s): Alcohol Severity: Severe Associated Symptoms: denies: Suicidal Thoughts, Suicidal Plan Additional History Per: Prior Records Past Medical History Reviewed: Historical Data, Nursing Documentation, Vital Signs Vital Signs: Last Vital Signs Temp 97.9 F 05/05/17 03:04 Pulse 89 05/05/17 03:04 Resp 16 05/05/17 03:04 BP 145/84 05/05/17 03:04 Pulse Ox 97 05/05/17 03:04 - Medical History PMH: Anxiety, Arthritis, Bronchitis, CAD, Depression, 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 commercial lines underwriter, not aware), Fractures (Rt. Fa.), Gastritis, Gall Bladder Disease (s/p cholecystectomy), HTN, Post Traumatic Stress Disorder, Rheumatoid Arthritis, Seizures, Chronic Pain Other PMH: Alcohol abuse Surgical History: Cholecystectomy - [facility] Procedures ALCOHOL DETOXIFICATION (07/04/15) APPLICATION OF SPLINT (03/20/13) CLOSURE SKIN & SUBCUTANEOUS NEC (08/14/13) DETOXIFICATION SERVICES FOR SUBSTANCE ABUSE TREATMENT (03/22/16) ESOPHAGOGASTRODUODENOSCOPY [EGD] W/CLOSED BIOPSY (02/16/15) OTHER GROUP THERAPY (03/12/13) PHYSICAL THERAPY NEC (07/04/15) TETANUS TOXOID ADMINIST (01/19/14) Family History: States: Unknown Family Hx - Social History Hx Tobacco Use: No Hx Alcohol Use: Yes Hx Substance Use: No - Immunization History Hx Tetanus Toxoid Vaccination: Yes Hx Influenza Vaccination: Yes Hx Pneumococcal Vaccination: Yes Review Of Systems Review Of Systems: ROS cannot be obtained secondary to pt's inabilty to answer questions. Physical Exam - Physical Exam Appears: No Acute Distress, Unkempt, Other (AOB, intoxicated) Skin: Normal Color, Warm, Dry Head: Atraumatic Eye(s): bilateral: PERRL Neck: Normal ROM, No Midline Cervical Tenderness, No Step Off Deformity, Supple Chest: Symmetrical, No Deformity Cardiovascular: Rhythm Regular Respiratory: Normal Breath Sounds, No Accessory Muscle Use Gastrointestinal/Abdominal: Soft Extremity: Normal ROM, No Deformity Neurological/Psych: Eyes Open With Command, Other (Moving all extremities) Gait: Unable To Assess ED Course And Treatment O2 Sat by Pulse Oximetry: 98 Pulse Ox Interpretation: Normal Reassessment Condition: Improved ED OBSERVATION Discharge: Yes Date of observation admission: 05/04/17 Time of observation admission: 22:00 - Observation admission statement Patient is being placed in observation because:: Alcohol intoxication. - Goals of Observation Goals of observation are:: Sobriety - Progress Note Progress Note: 05/05/17 05:02 Pt is now AAOx3. Steady gait. Clinically sober. Disposition Counseled Patient/Family Regarding: Diagnosis, Need For Followup - Disposition Disposition: HOME/ ROUTINE Disposition Time: 05:03 Condition: IMPROVED - Clinical Impression Clinical Impression: Alcoholism /alcohol abuse
[2017-05-05 03:06] VITALS: RESP 16
[2017-05-05 05:11] VITALS: BP 144/84; PULSE 88; TEMP 97.5; O2SAT 97
== END 2017-05-05 05:03 | disposition home or self-care (01) ==
LOC: C.ER 21:11 → C.9OBSV 22:42
PROVIDERS: ADMIT Emergency Medicine; ATTEND Emergency Medicine
DX: F10.229 Alcohol dependence with intoxication, unspecified (principal); I25.10 Atherosclerotic heart disease of native coronary artery without angina pectoris; E11.9 Type 2 diabetes mellitus without complications; M19.90 Unspecified osteoarthritis, unspecified site; F41.9 Anxiety disorder, unspecified; F32.9 Major depressive disorder, single episode, unspecified
CPT/HCPCS: 82948; G0378

== ENCOUNTER 2017-05-05 22:03 | Emergency (ER) | payer MEDICAID ==
[2017-05-05 22:03] VITALS: BMI 26.4
[2017-05-05] MEDS ORDERED: Pantoprazole 40 mg EC Tab PO STA (22:18)
[2017-05-05] MEDS ORDERED: Multivitamin With Minerals Tab PO STA (22:19)
[2017-05-05] MEDS ORDERED: Pantoprazole 40 mg EC Tab PO ONE (22:24)
--- NOTE | 2017-05-05 23:43 | C.PDOC ---
Time Seen by Provider: 05/05/17 22:13 Chief Complaint (Nursing): Substance Abuse History Per: Patient, EMS History/Exam Limitations: intoxication Onset/Duration Of Symptoms: Unknown (tonight) Current Symptoms Are (Timing): Still Present Suicide/Self Injury Attempted (Context): None Modifying Factor(s): Alcohol Severity: Moderate Associated Symptoms: denies: Suicidal Thoughts, Suicidal Plan Additional History Per: Prior Records Past Medical History Reviewed: Historical Data, Nursing Documentation, Vital Signs Vital Signs: Last Vital Signs Temp 98.0 F 05/06/17 05:41 Pulse 80 05/06/17 05:41 Resp 16 05/06/17 05:41 BP 149/94 H 05/06/17 05:41 Pulse Ox 98 05/06/17 05:41 - Medical History PMH: Anxiety, Arthritis, Bronchitis, CAD, Depression, 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 policy writer sales, not aware), Fractures (Rt. Fa.), Gastritis, Gall Bladder Disease (s/p cholecystectomy), HTN, Post Traumatic Stress Disorder, Rheumatoid Arthritis, Seizures, Chronic Pain Other PMH: Alcohol abuse Surgical History: Cholecystectomy - [facility] Procedures ALCOHOL DETOXIFICATION (07/04/15) APPLICATION OF SPLINT (03/20/13) CLOSURE SKIN & SUBCUTANEOUS NEC (08/14/13) DETOXIFICATION SERVICES FOR SUBSTANCE ABUSE TREATMENT (03/22/16) ESOPHAGOGASTRODUODENOSCOPY [EGD] W/CLOSED BIOPSY (02/16/15) OTHER GROUP THERAPY (03/12/13) PHYSICAL THERAPY NEC (07/04/15) TETANUS TOXOID ADMINIST (01/19/14) Family History: States: Unknown Family Hx - Social History Hx Tobacco Use: No Hx Alcohol Use: Yes Hx Substance Use: No - Immunization History Hx Tetanus Toxoid Vaccination: Yes Hx Influenza Vaccination: Yes Hx Pneumococcal Vaccination: Yes Review Of Systems Review Of Systems: ROS cannot be obtained secondary to pt's inabilty to answer questions. Physical Exam - Physical Exam Appears: Non-toxic, No Acute Distress, Other (AOB, intoxicated) Skin: Normal Color, Warm, Dry, No Rash Head: Atraumatic, Normacephalic Eye(s): bilateral: Normal Inspection, PERRL, EOMI Neck: Normal ROM, No Midline Cervical Tenderness, No Step Off Deformity, Supple Chest: Symmetrical, No Deformity Cardiovascular: Rhythm Regular Respiratory: Normal Breath Sounds, No Accessory Muscle Use Gastrointestinal/Abdominal: Soft Extremity: Normal ROM, No Deformity Neurological/Psych: Eyes Open With Command, Other (Moving all extremities) Gait: Unable To Assess ED Course And Treatment O2 Sat by Pulse Oximetry: 95 Pulse Ox Interpretation: Normal Reassessment Condition: Improved ED OBSERVATION Discharge: Yes Date of observation admission: 05/05/17 Time of observation admission: 22:30 - Observation admission statement Patient is being placed in observation because:: Alcohol intoxication. - Goals of Observation Goals of observation are:: Sobriety. - Progress Note Progress Note: 05/06/17 05:49 Pt is now clinically sober. AAOx3. Steady gait. Disposition Counseled Patient/Family Regarding: Diagnosis, Need For Followup - Disposition Referrals: [facility] at [facility] [Outside] Disposition: HOME/ ROUTINE Disposition Time: 05:50 Condition: IMPROVED Additional Instructions: Follow up with your doctor or in the clinic. Return to the ER if you develop worsening of symptoms or if you have any other concerns. Instructions: Abuse of Alcohol (ED) - Clinical Impression Clinical Impression: Alcoholism /alcohol abuse
[2017-05-06 00:43] VITALS: RESP 16
[2017-05-06 05:42] VITALS: BP 149/94; PULSE 80; TEMP 98
[2017-05-06 05:51] VITALS: O2SAT 95
== END 2017-05-06 05:56 | disposition home or self-care (01) ==
LOC: C.ER 22:03
DX: F10.229 Alcohol dependence with intoxication, unspecified (principal); Y90.9 Presence of alcohol in blood, level not specified

== ENCOUNTER 2017-05-06 20:13 | Emergency (ER) | payer MEDICAID ==
[2017-05-06 20:13] VITALS: BMI 26.4
--- NOTE | 2017-05-06 20:33 | C.PDOC ---
History Of Present Illness 56 year old male who presents to the ER with acute ETOH intoxication. Denies any physical complaints at this time. Chief Complaint (Nursing): Substance Abuse History Per: Patient History/Exam Limitations: no limitations Onset/Duration Of Symptoms: Hrs Current Symptoms Are (Timing): Still Present Suicide/Self Injury Attempted (Context): None Modifying Factor(s): Alcohol Associated Symptoms: denies: Depression, Suicidal Thoughts, Suicidal Plan Involuntary Hold By: None Recent travel outside of the [place]: No Past Medical History Reviewed: Historical Data, Nursing Documentation, Vital Signs Vital Signs: Last Vital Signs Temp 98.2 F 05/07/17 02:13 Pulse 82 05/07/17 02:13 Resp 18 05/07/17 02:13 BP 117/66 05/07/17 02:13 Pulse Ox 95 05/07/17 02:13 - Medical History PMH: Anxiety, Arthritis, Bronchitis, CAD, Depression, 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 chart writer, not aware), Fractures (Rt. Fa.), Gastritis, Gall Bladder Disease (s/p cholecystectomy), HTN, Post Traumatic Stress Disorder, Rheumatoid Arthritis, Seizures, Chronic Pain Surgical History: Cholecystectomy - [facility] Procedures ALCOHOL DETOXIFICATION (07/04/15) APPLICATION OF SPLINT (03/20/13) CLOSURE SKIN & SUBCUTANEOUS NEC (08/14/13) DETOXIFICATION SERVICES FOR SUBSTANCE ABUSE TREATMENT (03/22/16) ESOPHAGOGASTRODUODENOSCOPY [EGD] W/CLOSED BIOPSY (02/16/15) OTHER GROUP THERAPY (03/12/13) PHYSICAL THERAPY NEC (07/04/15) TETANUS TOXOID ADMINIST (01/19/14) Family History: States: Unknown Family Hx - Social History Hx Tobacco Use: No Hx Alcohol Use: Yes Hx Substance Use: No - Immunization History Hx Tetanus Toxoid Vaccination: Yes Hx Influenza Vaccination: Yes Hx Pneumococcal Vaccination: Yes Review Of Systems Constitutional: Negative for: Fever, Chills Gastrointestinal: Negative for: Nausea, Vomiting, Diarrhea Physical Exam - Physical Exam Appears: Non-toxic, No Acute Distress, Other (ETOH on breath) Skin: Normal Color, Warm, Dry Head: Atraumatic, Normacephalic Oral Mucosa: Moist Chest: Symmetrical, No Tenderness Cardiovascular: Rhythm Regular, No Murmur Respiratory: Normal Breath Sounds, No Rales, No Rhonchi, No Wheezing Gastrointestinal/Abdominal: Soft, No Tenderness Neurological/Psych: Oriented x3, Normal Speech, Normal Cognition ED Course And Treatment - Laboratory Results Result Diagrams: 05/06/17 21:27 05/06/17 22:31 - CT Scan/US CT Head Other Rad Studies (CT/US): Read By Radiologist, Radiology Report Reviewed CT/US Interpretation: EXAM: CT Head Without Intravenous Contrast. CLINICAL HISTORY: 56 years old, male; Pain; Headache; Patient HX: 3-17; Additional info: Seizure/alcoholic. TECHNIQUE: Axial computed tomography images of the head/brain without intravenous contrast. This CT exam. was performed using one or more of the following dose reduction techniques: automated exposure. control , adjustment of the mA and/or kV according to patient size, and/or use of iterative. reconstruction technique. COMPARISON: CT - HEAD W/O CONTRAST 2015 9:48:14 PM. FINDINGS: Brain: Iqby-kv-octihixo atrophy. No intracranial hemorrhage. No mass. No definite edema. Ventricles: No hydrocephalus. Bones/ joints: No acute fracture. Soft tissues: Unremarkable. Sinuses: Complete opacification of maxillary sinuses. Scattered minimal to mild mucosal thickening. of frontal, ethmoid sinuses. Mastoid air cells: No mastoid effusion. Orbits: Unremarkable as visualized. Dental: Dental caries. IMPRESSION: 1. No definite acute intracranial abnormality. 2. Sinus disease. 3. Incidental/non-acute findings are described above. Progress Note: While in his bed in the hallway, patient had a seizure with positive foam in the mouth. Patient was moved into bed 12; EKG and blood work ordered. Ativan and IV fluids administered. ED OBSERVATION Date of observation admission: 05/06/17 Time of observation admission: 20:00 - Observation admission statement Patient is being placed in observation because:: Acute ETOH intoxication - Goals of Observation Goals of observation are:: Sobriety Disposition Counseled Patient/Family Regarding: Diagnosis - Disposition Referrals: [facility] at [facility] [Outside] Disposition: HOME/ ROUTINE Disposition Time: 06:45 Condition: STABLE Prescriptions: Phenytoin [Dilantin Oral Susp] 100 mg PO TID #60 udc Potassium Chloride 10 meq PO BID #20 [email or web address] Instructions: Hypokalemia (DC), Epilepsy (GEN), Abuse of Alcohol (ED) - POA Present On Arrival: None - Clinical Impression Clinical Impression: Alcohol intoxication, Seizure, Hypokalemia - Scribe Statement The provider has reviewed the documentation as recorded by the Scribe Fabián Ramirez All medical record entries made by the Rominaibe were at my direction and personally dictated by me. I have reviewed the chart and agree that the record accurately reflects my personal performance of the history, physical exam, medical decision making, and the department course for this patient. I have also personally directed, reviewed, and agree with the discharge instructions and disposition.
[2017-05-06] MEDS ORDERED: Multivitamin (MVI) 10 ML, Thiamine 100 MG, Folic Acid 1 MG in Sodium Chloride 0.9% 1,00... IV ONE (20:54)
[2017-05-06 21:34] LABS: EOS # 0.1 K/uL (0.0-0.7); EOS % 2.8 % (0.0-4.0); HEMOGLOBIN 11.1 g/dL (12.0-18.0); LYMPH # 1.2 K/uL (1.0-4.3); LYMPH % 27.8 % (20.0-40.0); MEAN CELL VOLUME 107.5 fL (80.0-94.0); MEAN CORPUSCULAR HEMOGLOBIN 36.1 pg (27.0-31.0); MEAN CORPUSCULAR HGB CONC 33.5 g/dL (33.0-37.0); MONO # 0.9 K/uL (0.0-0.8); MONO % 20.6 % (0.0-10.0); NEUT # 2.1 K/uL (1.8-7.0); NEUT % 47.8 % (50.0-75.0); NRBC % 0.3 % (0.0-2.0); PLATELET COUNT 110 K/uL (130-400); RBC 3.07 Mil/uL (4.40-5.90); RED CELL DISTRIBUTION WIDTH 15.6 % (11.5-14.5); WHITE BLOOD COUNT 4.3 K/uL (4.8-10.8)
[2017-05-06 22:08] LABS: ANISOCYTOSIS SLIGHT; BANDS 1 % (0-2); EOSINOPHIL 2 % (0-4); HYPOCHROMIC SLIGHT; LYMPHOCYTE 32 % (20-40); MONOCYTE 19 % (0-10); NEUTROPHIL 46 % (50-75); PLATELET ESTIMATE SLIGHTLY DECREASED (NORMAL); POIKILOCYTOSIS SLIGHT; TOTAL CELLS COUNTED 100
[2017-05-06] MEDS ORDERED: Fosphenytoin 1,000 MG in Sodium Chloride 0.9% 50 ML IV STA (22:29)
[2017-05-06 22:47] LABS: ALBUMIN 3.7 g/dL (3.5-5.0)
[2017-05-06 22:49] LABS: GFR AFRICAN-AMERICAN > 60; GFR NON-AFRICAN AMERICAN > 60
[2017-05-06 22:50] LABS: ALB/GLOB RATIO 0.9 (1.0-2.1); ALT/SGPT 48 U/L (21-72); AST/SGOT 252 U/L (17-59); BLOOD UREA NITROGEN 7 mg/dL (9-20)
--- NOTE | 2017-05-07 04:17 | CT ---
EXAM: CT Head Without Intravenous Contrast CLINICAL HISTORY: 56 years old, male; Pain; Headache; Patient HX: 3; Additional info: Seizure/alcoholic TECHNIQUE: Axial computed tomography images of the head/brain without intravenous contrast. This CT exam was performed using one or more of the following dose reduction techniques: automated exposure control, adjustment of the mA and/or kV according to patient size, and/or use of iterative reconstruction technique. COMPARISON: CT - HEAD W/O CONTRAST 01/24/2016 9:48:14 PM FINDINGS: Brain: Upel-zv-rouyidht atrophy. No intracranial hemorrhage. No mass. No definite edema. Ventricles: No hydrocephalus. Bones/joints: No acute fracture. Soft tissues: Unremarkable. Sinuses: Complete opacification of maxillary sinuses. Scattered minimal to mild mucosal thickening of frontal, ethmoid sinuses. Mastoid air cells: No mastoid effusion. Orbits: Unremarkable as visualized. Dental: Dental caries. IMPRESSION: 1. No definite acute intracranial abnormality. 2. Sinus disease. 3. Incidental/non-acute findings are described above.
[2017-05-07 06:31] VITALS: BP 145/87; PULSE 85; RESP 19; TEMP 98.3; O2SAT 96
== END 2017-05-07 06:34 | disposition home or self-care (01) ==
LOC: C.ER 20:13
DX: F10.120 Alcohol abuse with intoxication, uncomplicated (principal); Y90.8 Blood alcohol level of 240 mg/100 ml or more; E87.6 Hypokalemia; G40.909 Epilepsy, unspecified, not intractable, without status epilepticus
CPT/HCPCS: 70450; 80053; 80185; 80320; 82948; 85025; 96365; 96372; 96375; 99285; J2060; J3411; J7040; Q2009

== ENCOUNTER 2017-05-09 00:05 | Emergency (ER) | payer MEDICAID ==
[2017-05-09 00:05] VITALS: BMI 26.4
[2017-05-09 00:42] VITALS: RESP 16
--- NOTE | 2017-05-09 00:46 | C.PDOC ---
History Of Present Illness Patient presents to the ER with acute ETOH intoxication. Denies physical complaints at this time. Time Seen by Provider: 05/09/17 00:45 Chief Complaint (Nursing): Substance Abuse History Per: Patient History/Exam Limitations: no limitations Onset/Duration Of Symptoms: Hrs Current Symptoms Are (Timing): Still Present Suicide/Self Injury Attempted (Context): None Modifying Factor(s): Alcohol Severity: None Pain Scale Rating Of: 0 Associated Symptoms: denies: Depression, Suicidal Thoughts, Suicidal Plan Involuntary Hold By: None Recent travel outside of the [place]: No Past Medical History Reviewed: Historical Data, Nursing Documentation, Vital Signs Vital Signs: Last Vital Signs Temp 97 F L 05/09/17 04:23 Pulse 90 05/09/17 04:23 Resp 16 05/09/17 04:23 BP 150/85 05/09/17 04:23 Pulse Ox 97 05/09/17 04:23 - Medical History PMH: Anxiety, Arthritis, Bronchitis, CAD, Depression, 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 software writer, not aware), Fractures (Rt. Fa.), Gastritis, Gall Bladder Disease (s/p cholecystectomy), HTN, Post Traumatic Stress Disorder, Rheumatoid Arthritis, Seizures, Chronic Pain Surgical History: Cholecystectomy - [facility] Procedures ALCOHOL DETOXIFICATION (07/04/15) APPLICATION OF SPLINT (03/20/13) CLOSURE SKIN & SUBCUTANEOUS NEC (08/14/13) DETOXIFICATION SERVICES FOR SUBSTANCE ABUSE TREATMENT (03/22/16) ESOPHAGOGASTRODUODENOSCOPY [EGD] W/CLOSED BIOPSY (02/16/15) OTHER GROUP THERAPY (03/12/13) PHYSICAL THERAPY NEC (07/04/15) TETANUS TOXOID ADMINIST (01/19/14) Family History: States: Unknown Family Hx - Social History Hx Tobacco Use: No Hx Alcohol Use: Yes Hx Substance Use: No - Immunization History Hx Tetanus Toxoid Vaccination: Yes Hx Influenza Vaccination: Yes Hx Pneumococcal Vaccination: Yes Review Of Systems Constitutional: Negative for: Fever, Chills Gastrointestinal: Negative for: Nausea, Vomiting, Diarrhea Physical Exam - Physical Exam Appears: Non-toxic, Other (ETOH on breath) Skin: Warm, Dry Oral Mucosa: Moist Chest: Symmetrical, No Tenderness Cardiovascular: Rhythm Regular, No Murmur Respiratory: No Rales, No Rhonchi, No Wheezing Gastrointestinal/Abdominal: Soft, No Tenderness Neurological/Psych: Oriented x3 ED Course And Treatment O2 Sat by Pulse Oximetry: 98 (Room air) Pulse Ox Interpretation: Normal Reevaluation Time: 05:36 Reassessment Condition: Improved ED OBSERVATION Discharge: Yes Date of observation admission: 05/09/17 Time of observation admission: 00:47 - Observation admission statement Patient is being placed in observation because:: acute alcohol intoxication - Goals of Observation Goals of observation are:: sobriety - Progress Note Progress Note: 05/09/17 00:47 vitals stable Disposition Counseled Patient/Family Regarding: Studies Performed, Diagnosis, Need For Followup - Disposition Referrals: [facility] at [facility] [Outside] Disposition: HOME/ ROUTINE Disposition Time: 00:45 Condition: FAIR Instructions: Alcohol Intoxication (DC) - Clinical Impression Clinical Impression: Alcohol abuse, Acute alcohol intoxication - Scribe Statement The provider has reviewed the documentation as recorded by the Scribe Fabián Ramirez All medical record entries made by the Scribe were at my direction and personally dictated by me. I have reviewed the chart and agree that the record accurately reflects my personal performance of the history, physical exam, medical decision making, and the department course for this patient. I have also personally directed, reviewed, and agree with the discharge instructions and disposition.
[2017-05-09 04:24] VITALS: TEMP 97
[2017-05-09 05:47] VITALS: BP 150/89; PULSE 95; O2SAT 100
== END 2017-05-09 05:45 | disposition home or self-care (01) ==
LOC: C.ER 00:05
DX: F10.129 Alcohol abuse with intoxication, unspecified (principal); Y90.9 Presence of alcohol in blood, level not specified

== ENCOUNTER 2017-05-09 21:16 | Observation (INO) | payer MEDICAID ==
[2017-05-09 21:16] VITALS: BMI 26.4
[2017-05-09 21:49] VITALS: RESP 20
--- NOTE | 2017-05-09 21:53 | C.PDOC ---
History Of Present Illness 56 y/o male presents to ED with ETOH intoxication and looking for a place to stay. No physical complaints at this time. Time Seen by Provider: 05/09/17 21:52 Chief Complaint (Nursing): Substance Abuse History Per: Patient History/Exam Limitations: no limitations Onset/Duration Of Symptoms: Hrs Current Symptoms Are (Timing): Still Present Modifying Factor(s): Alcohol Past Medical History Reviewed: Historical Data, Nursing Documentation, Vital Signs Vital Signs: Last Vital Signs Temp 97.3 F L 05/09/17 21:47 Pulse 90 05/09/17 21:47 Resp 20 05/09/17 21:47 BP 124/83 05/09/17 21:47 Pulse Ox 96 05/09/17 21:57 - Medical History PMH: Anxiety, Arthritis, Bronchitis, CAD, Depression, 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 proposal manager writer, not aware), Fractures (Rt. Fa.), Gastritis, Gall Bladder Disease (s/p cholecystectomy), HTN, Post Traumatic Stress Disorder, Rheumatoid Arthritis, Seizures, Chronic Pain Surgical History: Cholecystectomy - [facility] Procedures ALCOHOL DETOXIFICATION (07/04/15) APPLICATION OF SPLINT (03/20/13) CLOSURE SKIN & SUBCUTANEOUS NEC (08/14/13) DETOXIFICATION SERVICES FOR SUBSTANCE ABUSE TREATMENT (03/22/16) ESOPHAGOGASTRODUODENOSCOPY [EGD] W/CLOSED BIOPSY (02/16/15) OTHER GROUP THERAPY (03/12/13) PHYSICAL THERAPY NEC (07/04/15) TETANUS TOXOID ADMINIST (01/19/14) Family History: States: Unknown Family Hx - Social History Hx Tobacco Use: No Hx Alcohol Use: Yes Hx Substance Use: No - Immunization History Hx Tetanus Toxoid Vaccination: Yes Hx Influenza Vaccination: Yes Hx Pneumococcal Vaccination: Yes Review Of Systems Constitutional: Negative for: Fever, Chills Gastrointestinal: Negative for: Nausea, Vomiting, Diarrhea Psych: Negative for: Anxiety Physical Exam - Physical Exam Appears: No Acute Distress, Other (ETOH in breath) Skin: Warm Head: Normacephalic Oral Mucosa: Moist Cardiovascular: No Murmur Respiratory: No Rales, No Rhonchi, No Wheezing Gastrointestinal/Abdominal: No Tenderness, No Guarding, No Rebound Neurological/Psych: Oriented x3 ED Course And Treatment O2 Sat by Pulse Oximetry: 96 (RA) ED OBSERVATION Date of observation admission: 05/09/17 Time of observation admission: 21:59 - Observation admission statement Patient is being placed in observation because:: Alcohol intoxication - Goals of Observation Goals of observation are:: Sobriety - Progress Note Progress Note: 05/09/17 22:00 vital stable Disposition Counseled Patient/Family Regarding: Studies Performed, Diagnosis, Need For Followup - Disposition Referrals: [facility] at [facility] [Outside] Disposition Time: 21:52 Condition: FAIR Instructions: Alcohol Intoxication (DC) - Clinical Impression Clinical Impression: Chronic alcoholism, Alcohol abuse with intoxication - Scribe Statement The provider has reviewed the documentation as recorded by the Scribe Raffy Contreras All medical record entries made by the Rominaibjosé miguel were at my direction and personally dictated by me. I have reviewed the chart and agree that the record accurately reflects my personal performance of the history, physical exam, medical decision making, and the department course for this patient. I have also personally directed, reviewed, and agree with the discharge instructions and disposition.
--- NOTE | 2017-05-09 21:53 | C.PDOC ---
Time Seen by Provider: 05/09/17 21:52 Chief Complaint (Nursing): Substance Abuse Past Medical History Vital Signs: Last Vital Signs Temp 97.3 F L 05/09/17 21:47 Pulse 90 05/09/17 21:47 Resp 20 05/09/17 21:47 BP 124/83 05/09/17 21:47 Pulse Ox 96 05/09/17 21:47 - Medical History PMH: Anxiety, Arthritis, Bronchitis, CAD, Depression, 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 designer/writer, not aware), Fractures (Rt. Fa.), Gastritis, Gall Bladder Disease (s/p cholecystectomy), HTN, Post Traumatic Stress Disorder, Rheumatoid Arthritis, Seizures, Chronic Pain Denies: Chronic Kidney Disease Surgical History: Cholecystectomy - [facility] Procedures ALCOHOL DETOXIFICATION (07/04/15) APPLICATION OF SPLINT (03/20/13) CLOSURE SKIN & SUBCUTANEOUS NEC (08/14/13) DETOXIFICATION SERVICES FOR SUBSTANCE ABUSE TREATMENT (03/22/16) ESOPHAGOGASTRODUODENOSCOPY [EGD] W/CLOSED BIOPSY (02/16/15) OTHER GROUP THERAPY (03/12/13) PHYSICAL THERAPY NEC (07/04/15) TETANUS TOXOID ADMINIST (01/19/14) Family History: States: Unknown Family Hx - Social History Hx Tobacco Use: No Hx Alcohol Use: Yes Hx Substance Use: No - Immunization History Hx Tetanus Toxoid Vaccination: Yes Hx Influenza Vaccination: Yes Hx Pneumococcal Vaccination: Yes ED Course And Treatment O2 Sat by Pulse Oximetry: 96 ED OBSERVATION Date of observation admission: 05/09/17
[2017-05-09] MEDS ORDERED: Albuterol 0.042% Inhal Sol (1.25 mg/3 mL) UD ONE (23:32)
[2017-05-10 01:51] VITALS: O2SAT 98
[2017-05-10 05:55] VITALS: BP 132/82; PULSE 87; TEMP 98.3
== END 2017-05-10 05:15 | disposition home or self-care (01) ==
LOC: C.ER 21:16 → C.9OBSV 21:53
PROVIDERS: ADMIT Emergency Medicine; ATTEND Emergency Medicine
DX: F10.129 Alcohol abuse with intoxication, unspecified (principal); E11.9 Type 2 diabetes mellitus without complications; I25.10 Atherosclerotic heart disease of native coronary artery without angina pectoris
CPT/HCPCS: 82948; 99284; G0378

== ENCOUNTER 2017-05-10 22:40 | Emergency (ER) | payer MEDICAID ==
[2017-05-10 22:41] VITALS: BMI 26.4
[2017-05-10 22:50] VITALS: RESP 20
--- NOTE | 2017-05-11 01:37 | C.PDOC ---
History Of Present Illness 56 year old male who presents to the ER with acute ETOH intoxication. Denies physical complaints at this time. Chief Complaint (Nursing): Substance Abuse History Per: Patient History/Exam Limitations: no limitations Onset/Duration Of Symptoms: Hrs Current Symptoms Are (Timing): Still Present Suicide/Self Injury Attempted (Context): None Modifying Factor(s): Alcohol Associated Symptoms: denies: Depression, Suicidal Thoughts, Suicidal Plan Involuntary Hold By: None Recent travel outside of the [place]: No Past Medical History Reviewed: Historical Data, Nursing Documentation, Vital Signs Vital Signs: Last Vital Signs Temp 97.6 F 05/11/17 05:23 Pulse 88 05/11/17 05:23 Resp 20 05/11/17 05:23 BP 141/88 05/11/17 05:23 Pulse Ox 96 05/11/17 05:25 - Medical History PMH: Anxiety, Arthritis, Bronchitis, CAD, Depression, 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 short story writer, not aware), Fractures (Rt. Fa.), Gastritis, Gall Bladder Disease (s/p cholecystectomy), HTN, Post Traumatic Stress Disorder, Rheumatoid Arthritis, Seizures, Chronic Pain Surgical History: Cholecystectomy - [facility] Procedures ALCOHOL DETOXIFICATION (07/04/15) APPLICATION OF SPLINT (03/20/13) CLOSURE SKIN & SUBCUTANEOUS NEC (08/14/13) DETOXIFICATION SERVICES FOR SUBSTANCE ABUSE TREATMENT (03/22/16) ESOPHAGOGASTRODUODENOSCOPY [EGD] W/CLOSED BIOPSY (02/16/15) OTHER GROUP THERAPY (03/12/13) PHYSICAL THERAPY NEC (07/04/15) TETANUS TOXOID ADMINIST (01/19/14) Family History: States: Unknown Family Hx - Social History Hx Tobacco Use: No Hx Alcohol Use: Yes Hx Substance Use: No - Immunization History Hx Tetanus Toxoid Vaccination: Yes Hx Influenza Vaccination: Yes Hx Pneumococcal Vaccination: Yes Review Of Systems Constitutional: Negative for: Fever, Chills Gastrointestinal: Negative for: Nausea, Vomiting, Diarrhea Physical Exam - Physical Exam Appears: Non-toxic, No Acute Distress, Other (ETOH on breath) Skin: Normal Color, Warm, Dry Head: Atraumatic, Normacephalic Oral Mucosa: Moist Chest: Symmetrical, No Tenderness Cardiovascular: Rhythm Regular, No Murmur Respiratory: Normal Breath Sounds, No Rales, No Rhonchi, No Wheezing Gastrointestinal/Abdominal: Soft, No Tenderness Neurological/Psych: Oriented x3, Normal Speech, Normal Cognition ED Course And Treatment O2 Sat by Pulse Oximetry: 96 (Room air) Pulse Ox Interpretation: Normal Progress Note: On reevaluation, patient is alert, awake, conscious, and walking with a steady gait; will discharge home. Disposition Counseled Patient/Family Regarding: Diagnosis - Disposition Referrals: [facility] at [facility] [Outside] Disposition: HOME/ ROUTINE Disposition Time: 05:20 Condition: STABLE Instructions: Alcohol Intoxication (ED) - POA Present On Arrival: None - Clinical Impression Clinical Impression: Alcohol intoxication - Scribe Statement The provider has reviewed the documentation as recorded by the Scribe Fabián Ramirez All medical record entries made by the Scribe were at my direction and personally dictated by me. I have reviewed the chart and agree that the record accurately reflects my personal performance of the history, physical exam, medical decision making, and the department course for this patient. I have also personally directed, reviewed, and agree with the discharge instructions and disposition.
[2017-05-11 05:22] VITALS: O2SAT 96
[2017-05-11 05:44] VITALS: BP 141/88; PULSE 88; TEMP 97.6
== END 2017-05-11 05:44 | disposition home or self-care (01) ==
LOC: C.ER 22:40
DX: F10.120 Alcohol abuse with intoxication, uncomplicated (principal); Y90.9 Presence of alcohol in blood, level not specified

== ENCOUNTER 2017-05-11 21:29 | Observation (INO) | payer MEDICAID ==
[2017-05-11 21:29] VITALS: BMI 26.4
--- NOTE | 2017-05-11 22:26 | C.PDOC ---
History Of Present Illness 56 year old male who presents to the ER with acute ETOH intoxication. Denies physical complaints at this time. Time Seen by Provider: 05/11/17 22:11 Chief Complaint (Nursing): Substance Abuse History Per: Patient History/Exam Limitations: no limitations Onset/Duration Of Symptoms: Hrs Current Symptoms Are (Timing): Still Present Suicide/Self Injury Attempted (Context): None Modifying Factor(s): Alcohol Associated Symptoms: denies: Depression, Suicidal Thoughts, Suicidal Plan Involuntary Hold By: None Recent travel outside of the [place]: No Past Medical History Reviewed: Historical Data, Nursing Documentation, Vital Signs Vital Signs: Last Vital Signs Temp 98.1 F 05/11/17 22:21 Pulse 97 H 05/11/17 22:21 Resp 18 05/11/17 22:21 BP 124/79 05/11/17 22:21 Pulse Ox 98 05/12/17 05:14 - Medical History PMH: Anxiety, Arthritis, Bronchitis, CAD, Depression, 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 scenario writer, not aware), Fractures (Rt. Fa.), Gastritis, Gall Bladder Disease (s/p cholecystectomy), HTN, Post Traumatic Stress Disorder, Rheumatoid Arthritis, Seizures, Chronic Pain Surgical History: Cholecystectomy - [facility] Procedures ALCOHOL DETOXIFICATION (07/04/15) APPLICATION OF SPLINT (03/20/13) CLOSURE SKIN & SUBCUTANEOUS NEC (08/14/13) DETOXIFICATION SERVICES FOR SUBSTANCE ABUSE TREATMENT (03/22/16) ESOPHAGOGASTRODUODENOSCOPY [EGD] W/CLOSED BIOPSY (02/16/15) OTHER GROUP THERAPY (03/12/13) PHYSICAL THERAPY NEC (07/04/15) TETANUS TOXOID ADMINIST (01/19/14) Family History: States: Unknown Family Hx - Social History Hx Tobacco Use: No Hx Alcohol Use: Yes Hx Substance Use: No - Immunization History Hx Tetanus Toxoid Vaccination: Yes Hx Influenza Vaccination: Yes Hx Pneumococcal Vaccination: Yes Review Of Systems Constitutional: Negative for: Fever, Chills Gastrointestinal: Negative for: Nausea, Vomiting, Diarrhea Physical Exam - Physical Exam Appears: Non-toxic, No Acute Distress, Other (ETOH on breath) Skin: Normal Color, Warm, Dry Head: Atraumatic, Normacephalic Oral Mucosa: Moist Chest: Symmetrical, No Tenderness Cardiovascular: Rhythm Regular, No Murmur Respiratory: Normal Breath Sounds, No Rales, No Rhonchi, No Wheezing Gastrointestinal/Abdominal: Soft, No Tenderness Neurological/Psych: Oriented x3, Normal Speech, Normal Cognition ED Course And Treatment O2 Sat by Pulse Oximetry: 98 (Room air) Pulse Ox Interpretation: Normal Medical Decision Making Medical Decision Making: Impression: 56 year old male with acute ETOH intoxication. Plan: * Observation * 1130: pt sleeping in nad. 300: pt sleeping in nad 530: pt awake, aler,t in and, ambulatory steady gait, seen ambulating out of er. ED OBSERVATION Date of observation admission: 05/11/17 Time of observation admission: 22:17 - Observation admission statement Patient is being placed in observation because:: Acute ETOH intoxication - Goals of Observation Goals of observation are:: Sobriety Disposition - Disposition Disposition: HOME/ ROUTINE Disposition Time: 05:13 Condition: STABLE - Clinical Impression Clinical Impression: Alcohol abuse - Scribe Statement The provider has reviewed the documentation as recorded by the Scribjosé miguel Ramirez All medical record entries made by the Rominaibjosé miguel were at my direction and personally dictated by me. I have reviewed the chart and agree that the record accurately reflects my personal performance of the history, physical exam, medical decision making, and the department course for this patient. I have also personally directed, reviewed, and agree with the discharge instructions and disposition.
[2017-05-12 05:26] VITALS: BP 120/74; PULSE 88; RESP 16; TEMP 98; O2SAT 97
== END 2017-05-12 05:12 | disposition home or self-care (01) ==
LOC: C.ER 21:29 → C.9OBSV 22:16
PROVIDERS: ADMIT Student in an Organized Health Care Education/Training Program; ATTEND Student in an Organized Health Care Education/Training Program
DX: F10.129 Alcohol abuse with intoxication, unspecified (principal); I25.10 Atherosclerotic heart disease of native coronary artery without angina pectoris; E11.9 Type 2 diabetes mellitus without complications; Y90.9 Presence of alcohol in blood, level not specified
CPT/HCPCS: 82948; 99284; G0378

== ENCOUNTER 2017-05-12 20:47 | Observation (INO) | payer MEDICAID ==
[2017-05-12 20:48] VITALS: BMI 26.4
--- NOTE | 2017-05-12 21:08 | C.PDOC ---
History Of Present Illness A 56 y/o M presents to the ER c/o alcohol intoxication. Pt admits to drinking alcohol [employer]. Pt has numerous prior visits to the ER for the same complaint. Denies suicidal, homicidal ideation, or any physical complaints. Time Seen by Provider: 05/12/17 20:59 Chief Complaint (Nursing): Substance Abuse History Per: Patient History/Exam Limitations: no limitations Onset/Duration Of Symptoms: Hrs Current Symptoms Are (Timing): Still Present Suicide/Self Injury Attempted (Context): None Modifying Factor(s): Alcohol Severity: Mild Associated Symptoms: denies: Suicidal Thoughts, Suicidal Plan Involuntary Hold By: None Recent travel outside of the [place]: No Additional History Per: Patient Past Medical History Reviewed: Historical Data, Nursing Documentation, Vital Signs Vital Signs: Last Vital Signs Temp 97.6 F 05/12/17 21:02 Pulse 87 05/12/17 21:02 Resp 14 05/12/17 21:02 BP 130/70 05/12/17 21:02 Pulse Ox 97 05/13/17 05:12 - Medical History PMH: Anxiety, Arthritis, Bronchitis, CAD, Depression, 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 chief underwriter, not aware), Fractures (Rt. Fa.), Gastritis, Gall Bladder Disease (s/p cholecystectomy), HTN, Post Traumatic Stress Disorder, Rheumatoid Arthritis, Seizures, Chronic Pain Denies: Chronic Kidney Disease Surgical History: Cholecystectomy - [facility] Procedures ALCOHOL DETOXIFICATION (07/04/15) APPLICATION OF SPLINT (03/20/13) CLOSURE SKIN & SUBCUTANEOUS NEC (08/14/13) DETOXIFICATION SERVICES FOR SUBSTANCE ABUSE TREATMENT (03/22/16) ESOPHAGOGASTRODUODENOSCOPY [EGD] W/CLOSED BIOPSY (02/16/15) OTHER GROUP THERAPY (03/12/13) PHYSICAL THERAPY NEC (07/04/15) TETANUS TOXOID ADMINIST (01/19/14) Family History: States: Unknown Family Hx - Social History Hx Tobacco Use: No Hx Alcohol Use: Yes Hx Substance Use: No - Immunization History Hx Tetanus Toxoid Vaccination: Yes Hx Influenza Vaccination: Yes Hx Pneumococcal Vaccination: Yes Review Of Systems Except As Marked, All Systems Reviewed And Found Negative. Constitutional: Positive for: Other (Alcohol intoxication) Psych: Negative for: Suicidal ideation, Other (Homicidal ideation) Physical Exam - Physical Exam Appears: Non-toxic, No Acute Distress, Other ((+) AOB, Alcohol intoxicated) Skin: Warm, Dry Head: Atraumatic, Normacephalic Cardiovascular: Rhythm Regular Respiratory: Normal Breath Sounds, No Rales, No Rhonchi, No Wheezing Gastrointestinal/Abdominal: Soft, No Tenderness Neurological/Psych: Oriented x3 (Awake and alert), Other (No focal deficit. ) ED Course And Treatment O2 Sat by Pulse Oximetry: 97 (RA) Pulse Ox Interpretation: Normal Medical Decision Making Medical Decision Making: Impression: A 56 y/o M presents to the ER c/o alcohol intoxication. Multiple prior ER visits for the same complaint. Plans: -ED obs -Blood sugar -Reassess 1150 pt sleeping in nad 511: pt awake alert in nad. ambulatory. stable for d/c ED OBSERVATION Date of observation admission: 05/12/17 Time of observation admission: 21:08 - Observation admission statement Patient is being placed in observation because:: ALcohol intoxication - Goals of Observation Goals of observation are:: Sobriety - Progress Note Progress Note: 05/13/17 04:16 Resting comfortably, no acute distress Disposition - Disposition Disposition: HOME/ ROUTINE Disposition Time: 05:13 Condition: STABLE - Clinical Impression Clinical Impression: Alcohol intoxication, Homelessness - Scribe Statement The provider has reviewed the documentation as recorded by the Scribjosé miguel morillo All medical record entries made by the Rominaibjosé miguel were at my direction and personally dictated by me. I have reviewed the chart and agree that the record accurately reflects my personal performance of the history, physical exam, medical decision making, and the department course for this patient. I have also personally directed, reviewed, and agree with the discharge instructions and disposition.
[2017-05-12 21:10] VITALS: RESP 14; TEMP 97.6; O2SAT 97
[2017-05-13 05:57] VITALS: BP 118/78; PULSE 89
== END 2017-05-13 04:59 | disposition home or self-care (01) ==
LOC: C.ER 20:47 → C.9OBSV 21:08
PROVIDERS: ADMIT Student in an Organized Health Care Education/Training Program; ATTEND Student in an Organized Health Care Education/Training Program
DX: F10.129 Alcohol abuse with intoxication, unspecified (principal); Z59.0 Homelessness; Y90.9 Presence of alcohol in blood, level not specified
CPT/HCPCS: 82948; G0378

== ENCOUNTER 2017-05-13 21:22 | Observation (INO) | payer MEDICAID ==
[2017-05-13 21:23] VITALS: BMI 26.4
--- NOTE | 2017-05-13 21:43 | C.PDOC ---
History Of Present Illness 56 y/o male presents to ED with alcohol intoxication. Pt with frequent visits to ED for the same. No physical complaints at this time. Time Seen by Provider: 05/13/17 21:42 Chief Complaint (Nursing): Substance Abuse History Per: Patient History/Exam Limitations: no limitations Suicide/Self Injury Attempted (Context): None Modifying Factor(s): Alcohol Severity: Mild Associated Symptoms: denies: Suicidal Thoughts Involuntary Hold By: None Recent travel outside of the [place]: No Past Medical History Reviewed: Historical Data, Nursing Documentation, Vital Signs - Medical History PMH: Anxiety, Arthritis, Bronchitis, CAD, Depression, 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 Fa.), Gastritis, Gall Bladder Disease (s/p cholecystectomy), HTN, Post Traumatic Stress Disorder, Rheumatoid Arthritis, Seizures, Chronic Pain Surgical History: Cholecystectomy - [facility] Procedures ALCOHOL DETOXIFICATION (07/04/15) APPLICATION OF SPLINT (03/20/13) CLOSURE SKIN & SUBCUTANEOUS NEC (08/14/13) DETOXIFICATION SERVICES FOR SUBSTANCE ABUSE TREATMENT (03/22/16) ESOPHAGOGASTRODUODENOSCOPY [EGD] W/CLOSED BIOPSY (02/16/15) OTHER GROUP THERAPY (03/12/13) PHYSICAL THERAPY NEC (07/04/15) TETANUS TOXOID ADMINIST (01/19/14) Family History: States: Unknown Family Hx - Social History Hx Tobacco Use: No Hx Alcohol Use: Yes Hx Substance Use: No - Immunization History Hx Tetanus Toxoid Vaccination: Yes Hx Influenza Vaccination: Yes Hx Pneumococcal Vaccination: Yes Review Of Systems Constitutional: Negative for: Fever Cardiovascular: Negative for: Chest Pain Respiratory: Negative for: Shortness of Breath Gastrointestinal: Negative for: Vomiting, Abdominal Pain Neurological: Negative for: Headache Physical Exam - Physical Exam Appears: Non-toxic, No Acute Distress, Other (intoxicated) Skin: Warm, Dry, No Rash Head: Atraumatic, Normacephalic Neck: Supple Chest: Symmetrical Cardiovascular: Rhythm Regular, No Murmur Respiratory: No Accessory Muscle Use, No Rales, No Rhonchi, No Wheezing Gastrointestinal/Abdominal: Soft, No Tenderness Extremity: No Pedal Edema Extremity: Bilateral: Atraumatic Neurological/Psych: Oriented x3 ED Course And Treatment O2 Sat by Pulse Oximetry: 98 Pulse Ox Interpretation: Normal ED OBSERVATION Discharge: Yes Date of observation admission: 05/13/17 Time of observation admission: 21:45 - Observation admission statement Patient is being placed in observation because:: Pending sobriety. Disposition Counseled Patient/Family Regarding: Studies Performed, Diagnosis, Need For Followup - Disposition Disposition: HOME/ ROUTINE Disposition Time: 21:42 Condition: FAIR - Clinical Impression Clinical Impression: Alcohol abuse with intoxication - Scribe Statement The provider has reviewed the documentation as recorded by the Jada Anaya Provider Attestation: All medical record entries made by the Jada were at my direction and personally dictated by me. I have reviewed the chart and agree that the record accurately reflects my personal performance of the history, physical exam, medical decision making, and the department course for this patient. I have also personally directed, reviewed, and agree with the discharge instructions and disposition.
[2017-05-14 05:31] VITALS: BP 142/96; PULSE 90; RESP 18; TEMP 98.4; O2SAT 96
== END 2017-05-14 05:01 | disposition home or self-care (01) ==
LOC: C.ER 21:22 → C.9OBSV 21:43
PROVIDERS: ADMIT Emergency Medicine; ATTEND Emergency Medicine
DX: F10.129 Alcohol abuse with intoxication, unspecified (principal); Y90.9 Presence of alcohol in blood, level not specified
CPT/HCPCS: 99284; G0378

== ENCOUNTER 2017-05-14 21:09 | Observation (INO) | payer MEDICAID ==
[2017-05-14 21:09] VITALS: BMI 26.4
[2017-05-14 21:51] VITALS: TEMP 98
--- NOTE | 2017-05-14 22:13 | C.PDOC ---
History Of Present Illness A 56 y/o M here for acute alcohol intoxication and wants a place to stay. Pt has numerous visits in the ER for the same complaint. Denies suicidal, homicidal ideation, or any physical complaints at this time. Time Seen by Provider: 05/14/17 22:12 Chief Complaint (Nursing): Substance Abuse History Per: Patient History/Exam Limitations: no limitations Onset/Duration Of Symptoms: Hrs Current Symptoms Are (Timing): Still Present Suicide/Self Injury Attempted (Context): None Modifying Factor(s): Alcohol Severity: Mild Associated Symptoms: denies: Suicidal Thoughts, Suicidal Plan Involuntary Hold By: None Recent travel outside of the [place]: No Additional History Per: Patient Past Medical History Reviewed: Historical Data, Nursing Documentation, Vital Signs Vital Signs: Last Vital Signs Temp 98 F 05/14/17 21:48 Pulse 83 05/14/17 21:48 Resp 20 05/14/17 21:48 BP 136/94 H 05/14/17 21:48 Pulse Ox 98 05/14/17 22:25 - Medical History PMH: Anxiety, Arthritis, Bronchitis, CAD, Depression, 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 conventional mortgage underwriter, not aware), Fractures (Rt. Fa.), Gastritis, Gall Bladder Disease (s/p cholecystectomy), HTN, Post Traumatic Stress Disorder, Rheumatoid Arthritis, Seizures, Chronic Pain Denies: Chronic Kidney Disease Surgical History: Cholecystectomy - [facility] Procedures ALCOHOL DETOXIFICATION (07/04/15) APPLICATION OF SPLINT (03/20/13) CLOSURE SKIN & SUBCUTANEOUS NEC (08/14/13) DETOXIFICATION SERVICES FOR SUBSTANCE ABUSE TREATMENT (03/22/16) ESOPHAGOGASTRODUODENOSCOPY [EGD] W/CLOSED BIOPSY (02/16/15) OTHER GROUP THERAPY (03/12/13) PHYSICAL THERAPY NEC (07/04/15) TETANUS TOXOID ADMINIST (01/19/14) Family History: States: No Known Family Hx - Social History Hx Tobacco Use: No Hx Alcohol Use: Yes Hx Substance Use: No - Immunization History Hx Tetanus Toxoid Vaccination: Yes Hx Influenza Vaccination: Yes Hx Pneumococcal Vaccination: Yes Review Of Systems Constitutional: Positive for: Other (Acute alcohol intoxication). Negative for : Fever, Chills Cardiovascular: Negative for: Chest Pain Respiratory: Negative for: Shortness of Breath Gastrointestinal: Negative for: Nausea, Vomiting, Abdominal Pain, Diarrhea Skin: Negative for: Rash Psych: Negative for: Suicidal ideation, Other (Homicidal ideation) Physical Exam - Physical Exam Appears: Non-toxic, No Acute Distress, Other ((+) AOB, Acute alcohol intoxication) Skin: Warm, Dry Head: Normacephalic Neck: Supple Cardiovascular: Rhythm Regular Respiratory: No Rales, No Rhonchi, No Wheezing Gastrointestinal/Abdominal: Soft, No Tenderness Neurological/Psych: Oriented x3 (Awake and alert) Gait: Unsteady ED Course And Treatment O2 Sat by Pulse Oximetry: 98 (RA) Pulse Ox Interpretation: Normal Reevaluation Time: 05:07 Reassessment Condition: Improved ED OBSERVATION Discharge: Yes Date of observation admission: 05/14/17 Time of observation admission: 22:15 - Observation admission statement Patient is being placed in observation because:: acute alcohol intoxication - Goals of Observation Goals of observation are:: sobriety - Progress Note Progress Note: 05/14/17 22:15 vitals stable 05/15/17 02:08 no complaints Disposition Counseled Patient/Family Regarding: Studies Performed, Diagnosis, Need For Followup - Disposition Disposition: HOME/ ROUTINE Disposition Time: 22:13 Condition: FAIR - Clinical Impression Clinical Impression: Alcohol intoxication, Alcoholism /alcohol abuse - Scribe Statement The provider has reviewed the documentation as recorded by the Scribjosé miguel morillo All medical record entries made by the Rominaibjosé miguel were at my direction and personally dictated by me. I have reviewed the chart and agree that the record accurately reflects my personal performance of the history, physical exam, medical decision making, and the department course for this patient. I have also personally directed, reviewed, and agree with the discharge instructions and disposition.
[2017-05-15 06:36] VITALS: BP 128/72; PULSE 84; RESP 20; O2SAT 95
== END 2017-05-15 05:08 | disposition home or self-care (01) ==
LOC: C.ER 21:09 → C.9OBSV 22:13
PROVIDERS: ADMIT Emergency Medicine; ATTEND Emergency Medicine
DX: F10.229 Alcohol dependence with intoxication, unspecified (principal); E11.9 Type 2 diabetes mellitus without complications; I25.10 Atherosclerotic heart disease of native coronary artery without angina pectoris; F41.9 Anxiety disorder, unspecified; M19.90 Unspecified osteoarthritis, unspecified site; J40 Bronchitis, not specified as acute or chronic; F32.89 Other specified depressive episodes; K29.70 Gastritis, unspecified, without bleeding; I10 Essential (primary) hypertension; Z90.49 Acquired absence of other specified parts of digestive tract; F43.10 Post-traumatic stress disorder, unspecified; M06.9 Rheumatoid arthritis, unspecified; R56.9 Unspecified convulsions; G89.29 Other chronic pain; Z87.81 Personal history of (healed) traumatic fracture; Y90.8 Blood alcohol level of 240 mg/100 ml or more
CPT/HCPCS: 82948; 99285; G0378

== ENCOUNTER 2017-05-15 20:57 | Observation (INO) | payer MEDICAID ==
[2017-05-15 20:58] VITALS: BMI 26.4
--- NOTE | 2017-05-15 21:05 | C.PDOC ---
History Of Present Illness A 56 y/o M here for acute alcohol intoxication and wants a place to stay. Pt has numerous visits in the ER for the same complaint. Denies suicidal, homicidal ideation, or any physical complaints at this time. Time Seen by Provider: 05/15/17 21:06 Chief Complaint (Nursing): Substance Abuse History Per: Patient History/Exam Limitations: no limitations Onset/Duration Of Symptoms: Hrs Current Symptoms Are (Timing): Still Present Suicide/Self Injury Attempted (Context): None Modifying Factor(s): Alcohol Severity: Mild Associated Symptoms: denies: Suicidal Thoughts, Suicidal Plan Involuntary Hold By: None Recent travel outside of the [place]: No Additional History Per: Patient Past Medical History Reviewed: Historical Data, Nursing Documentation, Vital Signs Vital Signs: Last Vital Signs Temp 97.8 F 05/15/17 21:02 Pulse 81 05/15/17 21:02 Resp 18 05/15/17 21:02 BP 136/93 H 05/15/17 21:02 Pulse Ox 97 05/16/17 04:52 - Medical History PMH: Anxiety, Arthritis, Bronchitis, CAD, Depression, 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 news writer, not aware), Fractures (Rt. Fa.), Gastritis, Gall Bladder Disease (s/p cholecystectomy), HTN, Post Traumatic Stress Disorder, Rheumatoid Arthritis, Seizures, Chronic Pain Denies: Chronic Kidney Disease Surgical History: Cholecystectomy - [facility] Procedures ALCOHOL DETOXIFICATION (07/04/15) APPLICATION OF SPLINT (03/20/13) CLOSURE SKIN & SUBCUTANEOUS NEC (08/14/13) DETOXIFICATION SERVICES FOR SUBSTANCE ABUSE TREATMENT (03/22/16) ESOPHAGOGASTRODUODENOSCOPY [EGD] W/CLOSED BIOPSY (02/16/15) OTHER GROUP THERAPY (03/12/13) PHYSICAL THERAPY NEC (07/04/15) TETANUS TOXOID ADMINIST (01/19/14) Family History: States: Unknown Family Hx - Social History Hx Tobacco Use: No Hx Alcohol Use: Yes Hx Substance Use: No - Immunization History Hx Tetanus Toxoid Vaccination: Yes Hx Influenza Vaccination: Yes Hx Pneumococcal Vaccination: Yes Review Of Systems Except As Marked, All Systems Reviewed And Found Negative. Constitutional: Positive for: Other Psych: Negative for: Suicidal ideation, Other (Homicidal ideation) Physical Exam - Physical Exam Appears: Non-toxic, No Acute Distress, Other ((+) AOB, Acute alcohol intoxication) Skin: Warm, Dry Head: Atraumatic, Normacephalic Cardiovascular: Rhythm Regular Respiratory: Normal Breath Sounds, No Rales, No Rhonchi, No Wheezing Gastrointestinal/Abdominal: Soft, No Tenderness Neurological/Psych: Oriented x3 Gait: Unsteady ED Course And Treatment O2 Sat by Pulse Oximetry: 97 (RA) Pulse Ox Interpretation: Normal Medical Decision Making Medical Decision Making: Impression: A 56 y/o M here for acute alcohol intoxication and wants a place to stay. Plans: -ED Obs -Reassess ED OBSERVATION Date of observation admission: 05/15/17 Time of observation admission: 21:09 - Observation admission statement Patient is being placed in observation because:: Acute alcohol intoxication - Goals of Observation Goals of observation are:: Sobriety Disposition Counseled Patient/Family Regarding: Diagnosis - Disposition Disposition: HOME/ ROUTINE Disposition Time: 05:15 Condition: STABLE - POA Present On Arrival: None - Clinical Impression Clinical Impression: Alcohol intoxication, Alcohol abuse - Scribe Statement The provider has reviewed the documentation as recorded by the Scribjosé miguel morillo All medical record entries made by the Rominaibjosé miguel were at my direction and personally dictated by me. I have reviewed the chart and agree that the record accurately reflects my personal performance of the history, physical exam, medical decision making, and the department course for this patient. I have also personally directed, reviewed, and agree with the discharge instructions and disposition.
[2017-05-16 05:39] VITALS: BP 140/82; PULSE 80; RESP 16; TEMP 98; O2SAT 98
== END 2017-05-16 04:51 | disposition home or self-care (01) ==
LOC: C.ER 20:57 → C.9OBSV 21:08
PROVIDERS: ADMIT Emergency Medicine; ATTEND Emergency Medicine
DX: F10.129 Alcohol abuse with intoxication, unspecified (principal); I25.10 Atherosclerotic heart disease of native coronary artery without angina pectoris; E11.9 Type 2 diabetes mellitus without complications; Y90.9 Presence of alcohol in blood, level not specified
CPT/HCPCS: 82948; G0378

== ENCOUNTER 2017-05-16 21:26 | Observation (INO) | payer MEDICAID ==
[2017-05-16 21:27] VITALS: BMI 26.4
--- NOTE | 2017-05-16 21:40 | C.PDOC ---
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 Fa.), Gastritis, Gall Bladder Disease (s/p cholecystectomy), HTN, Post Traumatic Stress Disorder, Rheumatoid Arthritis, Seizures, Chronic Pain Denies: Chronic Kidney Disease Surgical History: Cholecystectomy - [facility] Procedures ALCOHOL DETOXIFICATION (07/04/15) APPLICATION OF SPLINT (03/20/13) CLOSURE SKIN & SUBCUTANEOUS NEC (08/14/13) DETOXIFICATION SERVICES FOR SUBSTANCE ABUSE TREATMENT (03/22/16) ESOPHAGOGASTRODUODENOSCOPY [EGD] W/CLOSED BIOPSY (02/16/15) OTHER GROUP THERAPY (03/12/13) PHYSICAL THERAPY NEC (07/04/15) TETANUS TOXOID ADMINIST (01/19/14) Family History: States: Unknown Family Hx - Social History Hx Tobacco Use: No Hx Alcohol Use: Yes Hx Substance Use: No - Immunization History Hx Tetanus Toxoid Vaccination: Yes Hx Influenza Vaccination: Yes Hx Pneumococcal Vaccination: Yes Disposition Counseled Patient/Family Regarding: Studies Performed, Diagnosis - Disposition Disposition Time: 21:40 Forms: [employer] (Romansh)
--- NOTE | 2017-05-16 21:42 | C.PDOC ---
History Of Present Illness 56 year old male presents to the emergency department for alcohol intoxication. The patient is well known to the emergency room staff and has a history of multiple prior visits for ETOH intoxication. Patient admits to ETOH use today, and has no other medical complaints at this time. He is requesting a place to stay overnight. Denies fever, chills, nausea, vomiting. Time Seen by Provider: 05/16/17 21:39 Chief Complaint (Nursing): Substance Abuse History Per: Patient History/Exam Limitations: no limitations Onset/Duration Of Symptoms: Persistent Current Symptoms Are (Timing): Still Present Modifying Factor(s): Alcohol Associated Symptoms: denies: Suicidal Thoughts, Suicidal Plan Recent travel outside of the [place]: No Past Medical History Reviewed: Historical Data, Nursing Documentation, Vital Signs Vital Signs: Last Vital Signs Temp 97.4 F L 05/16/17 21:35 Pulse 80 05/17/17 02:14 Resp 18 05/17/17 02:14 BP 132/75 05/17/17 02:14 Pulse Ox 98 05/17/17 02:14 - Medical History PMH: Anxiety, Arthritis, Bronchitis, CAD, Depression, 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 Fa.), Gastritis, Gall Bladder Disease (s/p cholecystectomy), HTN, Post Traumatic Stress Disorder, Rheumatoid Arthritis, Seizures, Chronic Pain Surgical History: Cholecystectomy - [facility] Procedures ALCOHOL DETOXIFICATION (07/04/15) APPLICATION OF SPLINT (03/20/13) CLOSURE SKIN & SUBCUTANEOUS NEC (08/14/13) DETOXIFICATION SERVICES FOR SUBSTANCE ABUSE TREATMENT (03/22/16) ESOPHAGOGASTRODUODENOSCOPY [EGD] W/CLOSED BIOPSY (02/16/15) OTHER GROUP THERAPY (03/12/13) PHYSICAL THERAPY NEC (07/04/15) TETANUS TOXOID ADMINIST (01/19/14) Family History: States: Unknown Family Hx - Social History Hx Tobacco Use: No Hx Alcohol Use: Yes Hx Substance Use: No - Immunization History Hx Tetanus Toxoid Vaccination: Yes Hx Influenza Vaccination: Yes Hx Pneumococcal Vaccination: Yes Review Of Systems Constitutional: Negative for: Fever, Chills Cardiovascular: Negative for: Chest Pain Respiratory: Negative for: Shortness of Breath, Wheezing Gastrointestinal: Negative for: Nausea, Vomiting Skin: Negative for: Rash Psych: Negative for: Suicidal ideation, Withdrawal Physical Exam - Physical Exam Appears: Non-toxic, No Acute Distress, Other (etoh on breath) Skin: Warm, Dry Head: Atraumatic, Normacephalic Chest: Symmetrical Cardiovascular: Rhythm Regular Respiratory: No Rales, No Rhonchi, No Wheezing Gastrointestinal/Abdominal: Soft, No Tenderness, No Guarding Extremity: Normal ROM, Capillary Refill (< 2 sec. ) Neurological/Psych: Oriented x3 ED Course And Treatment O2 Sat by Pulse Oximetry: 98 Pulse Ox Interpretation: Normal Reevaluation Time: 05:51 Reassessment Condition: Improved ED OBSERVATION Discharge: Yes Date of observation admission: 05/16/17 Time of observation admission: 21:42 - Observation admission statement Patient is being placed in observation because:: etoh intoxication - Goals of Observation Goals of observation are:: clinical sobriety - Progress Note Progress Note: 05/17/17 01:15 vitals stable Disposition Counseled Patient/Family Regarding: Studies Performed, Need For Followup - Disposition Disposition: HOME/ ROUTINE Disposition Time: 21:40 Condition: FAIR - Clinical Impression Clinical Impression: Alcoholic intoxication - Scribe Statement The provider has reviewed the documentation as recorded by the Rominaibjosé miguel Castro All medical record entries made by the Rominaibjosé miguel were at my direction and personally dictated by me. I have reviewed the chart and agree that the record accurately reflects my personal performance of the history, physical exam, medical decision making, and the department course for this patient. I have also personally directed, reviewed, and agree with the discharge instructions and disposition.
[2017-05-17 02:14] VITALS: O2SAT 98
[2017-05-17 06:01] VITALS: BP 136/72; PULSE 84; RESP 20; TEMP 97.9
== END 2017-05-17 05:52 | disposition home or self-care (01) ==
LOC: SUPCPDRO 21:26 → C.ER 21:26 → C.9OBSV 21:55
PROVIDERS: ADMIT Emergency Medicine; ATTEND Emergency Medicine
DX: F10.129 Alcohol abuse with intoxication, unspecified (principal); Y90.9 Presence of alcohol in blood, level not specified
CPT/HCPCS: 96372; 99284; G0378; J2060

== ENCOUNTER 2017-05-17 20:17 | Observation (INO) | payer MEDICAID ==
[2017-05-17 20:18] VITALS: BMI 26.4
[2017-05-17 20:33] VITALS: RESP 16; TEMP 97.9; O2SAT 97
--- NOTE | 2017-05-17 21:23 | C.PDOC ---
History Of Present Illness 56 year old male was brought to the emergency department by EMS after being found wandering with alcohol on breath. Patient is well known to this emergency department and denies any physical complaints at this time. Chief Complaint (Nursing): Substance Abuse History Per: Patient History/Exam Limitations: no limitations Suicide/Self Injury Attempted (Context): None Associated Symptoms: denies: Suicidal Thoughts, Suicidal Plan Involuntary Hold By: None Recent travel outside of the [place]: No Additional History Per: EMS Past Medical History Reviewed: Historical Data, Nursing Documentation, Vital Signs Vital Signs: Last Vital Signs Temp 97.9 F 05/18/17 04:11 Pulse 84 05/18/17 04:11 Resp 16 05/18/17 04:11 BP 160/82 H 05/18/17 04:11 Pulse Ox 97 05/18/17 04:11 - Medical History PMH: Anxiety, Arthritis, Bronchitis, CAD, Depression, 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 writer/runner, not aware), Fractures (Rt. Fa.), Gastritis, Gall Bladder Disease (s/p cholecystectomy), HTN, Post Traumatic Stress Disorder, Rheumatoid Arthritis, Seizures, Chronic Pain Surgical History: Cholecystectomy - [facility] Procedures ALCOHOL DETOXIFICATION (07/04/15) APPLICATION OF SPLINT (03/20/13) CLOSURE SKIN & SUBCUTANEOUS NEC (08/14/13) DETOXIFICATION SERVICES FOR SUBSTANCE ABUSE TREATMENT (03/22/16) ESOPHAGOGASTRODUODENOSCOPY [EGD] W/CLOSED BIOPSY (02/16/15) OTHER GROUP THERAPY (03/12/13) PHYSICAL THERAPY NEC (07/04/15) TETANUS TOXOID ADMINIST (01/19/14) Family History: States: Unknown Family Hx - Social History Hx Tobacco Use: No Hx Alcohol Use: Yes Hx Substance Use: No - Immunization History Hx Tetanus Toxoid Vaccination: Yes Hx Influenza Vaccination: Yes Hx Pneumococcal Vaccination: Yes Review Of Systems Constitutional: Negative for: Fever, Chills Cardiovascular: Negative for: Chest Pain Respiratory: Negative for: Shortness of Breath Gastrointestinal: Negative for: Nausea, Vomiting, Abdominal Pain, Diarrhea Psych: Negative for: Suicidal ideation Physical Exam - Physical Exam Appears: Non-toxic, No Acute Distress, Other (EtOH on breath ) Skin: Warm, Dry Head: Atraumatic Oral Mucosa: Moist Neck: Supple Chest: Symmetrical, No Deformity Cardiovascular: Rhythm Regular Respiratory: Normal Breath Sounds, No Rhonchi, No Wheezing Gastrointestinal/Abdominal: Soft, No Tenderness, No Distention, No Guarding, No Rebound Extremity: Normal ROM, No Tenderness Neurological/Psych: Oriented x3 ED Course And Treatment O2 Sat by Pulse Oximetry: 97 (room air ) ED OBSERVATION Date of observation admission: 05/17/17 Time of observation admission: 21:23 - Observation admission statement Patient is being placed in observation because:: intoxication. - Goals of Observation Goals of observation are:: sobriety. Disposition Counseled Patient/Family Regarding: Diagnosis - Disposition Disposition: HOME/ ROUTINE Disposition Time: 05:30 Condition: STABLE - POA Present On Arrival: None - Clinical Impression Clinical Impression: Acute alcohol intoxication - Scribe Statement The provider has reviewed the documentation as recorded by the Rominaibjosé miguel Noel All medical record entries made by the Rominaibjosé miguel were at my direction and personally dictated by me. I have reviewed the chart and agree that the record accurately reflects my personal performance of the history, physical exam, medical decision making, and the department course for this patient. I have also personally directed, reviewed, and agree with the discharge instructions and disposition.
[2017-05-18 04:12] VITALS: BP 160/82; PULSE 84
== END 2017-05-18 05:26 | disposition home or self-care (01) ==
LOC: C.ER 20:17 → C.9E 21:18 → C.9OBSV 22:57
PROVIDERS: ADMIT Emergency Medicine; ATTEND Emergency Medicine
DX: F10.129 Alcohol abuse with intoxication, unspecified (principal); Y90.9 Presence of alcohol in blood, level not specified
CPT/HCPCS: 99282; G0378

== ENCOUNTER 2017-05-18 20:59 | Observation (INO) | payer MEDICAID ==
[2017-05-18 21:00] VITALS: BMI 26.4
[2017-05-18 21:08] VITALS: RESP 20
--- NOTE | 2017-05-18 21:15 | C.PDOC ---
History Of Present Illness Patient presents to the ER with acute ETOH intoxication. Denies physical complaints at this time. Time Seen by Provider: 05/18/17 21:12 Chief Complaint (Nursing): Substance Abuse History Per: Patient History/Exam Limitations: no limitations Onset/Duration Of Symptoms: Hrs Current Symptoms Are (Timing): Still Present Suicide/Self Injury Attempted (Context): None Modifying Factor(s): Alcohol Severity: None Pain Scale Rating Of: 0 Associated Symptoms: denies: Depression, Suicidal Thoughts, Suicidal Plan Involuntary Hold By: None Recent travel outside of the [place]: No Past Medical History Reviewed: Historical Data, Nursing Documentation, Vital Signs Vital Signs: Last Vital Signs Temp 97.9 F 05/18/17 21:07 Pulse 92 H 05/18/17 21:07 Resp 20 05/18/17 21:07 BP 120/79 05/18/17 21:07 Pulse Ox 98 05/18/17 22:18 - Medical History PMH: Anxiety, Arthritis, Bronchitis, CAD, Depression, 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 insurance underwriter, not aware), Fractures (Rt. Fa.), Gastritis, Gall Bladder Disease (s/p cholecystectomy), HTN, Post Traumatic Stress Disorder, Rheumatoid Arthritis, Seizures, Chronic Pain Surgical History: Cholecystectomy - [facility] Procedures ALCOHOL DETOXIFICATION (07/04/15) APPLICATION OF SPLINT (03/20/13) CLOSURE SKIN & SUBCUTANEOUS NEC (08/14/13) DETOXIFICATION SERVICES FOR SUBSTANCE ABUSE TREATMENT (03/22/16) ESOPHAGOGASTRODUODENOSCOPY [EGD] W/CLOSED BIOPSY (02/16/15) OTHER GROUP THERAPY (03/12/13) PHYSICAL THERAPY NEC (07/04/15) TETANUS TOXOID ADMINIST (01/19/14) Family History: States: Unknown Family Hx - Social History Hx Tobacco Use: No Hx Alcohol Use: Yes Hx Substance Use: No - Immunization History Hx Tetanus Toxoid Vaccination: Yes Hx Influenza Vaccination: Yes Hx Pneumococcal Vaccination: Yes Review Of Systems Constitutional: Negative for: Fever, Chills Gastrointestinal: Negative for: Nausea, Vomiting, Diarrhea Physical Exam - Physical Exam Appears: Non-toxic, No Acute Distress, Other (ETOH on breath) Skin: Warm, Dry Oral Mucosa: Moist Chest: Symmetrical, No Tenderness Cardiovascular: Rhythm Regular, No Murmur Respiratory: No Rales, No Rhonchi, No Wheezing Gastrointestinal/Abdominal: Soft, No Tenderness Neurological/Psych: Oriented x3 ED Course And Treatment O2 Sat by Pulse Oximetry: 98 (Room air) Pulse Ox Interpretation: Normal ED OBSERVATION Discharge: Yes Date of observation admission: 05/18/17 Time of observation admission: 21:14 - Observation admission statement Patient is being placed in observation because:: acute alcohol intoxication - Goals of Observation Goals of observation are:: sobriety - Progress Note Progress Note: 05/18/17 21:14 vitals stable 05/19/17 01:39 no complaints 05/19/17 04:40 vitals stable Disposition Counseled Patient/Family Regarding: Studies Performed, Diagnosis, Need For Followup - Disposition Disposition: HOME/ ROUTINE Disposition Time: 21:13 Condition: FAIR - Clinical Impression Clinical Impression: Alcohol abuse - Scribe Statement The provider has reviewed the documentation as recorded by the Scribjosé miguel Ramirez All medical record entries made by the Rominaibjosé miguel were at my direction and personally dictated by me. I have reviewed the chart and agree that the record accurately reflects my personal performance of the history, physical exam, medical decision making, and the department course for this patient. I have also personally directed, reviewed, and agree with the discharge instructions and disposition.
[2017-05-19 06:20] VITALS: TEMP 98.1
[2017-05-19 06:24] VITALS: BP 149/80; PULSE 90; O2SAT 100
== END 2017-05-19 05:40 | disposition home or self-care (01) ==
LOC: C.ER 20:59 → C.9OBSV 21:15
PROVIDERS: ADMIT Emergency Medicine; ATTEND Emergency Medicine
DX: F10.120 Alcohol abuse with intoxication, uncomplicated (principal); Y90.9 Presence of alcohol in blood, level not specified
CPT/HCPCS: 82948; 99284; G0378

== ENCOUNTER 2017-05-19 22:48 | Emergency (ER) | payer MEDICAID ==
[2017-05-19 22:48] VITALS: BMI 26.4
[2017-05-19 23:13] VITALS: RESP 20
--- NOTE | 2017-05-19 23:22 | C.PDOC ---
History Of Present Illness Patient presents to the ER with acute ETOH intoxication. Denies physical complaints at this time. Time Seen by Provider: 05/19/17 23:21 Chief Complaint (Nursing): Substance Abuse History Per: Patient History/Exam Limitations: no limitations Onset/Duration Of Symptoms: Hrs Current Symptoms Are (Timing): Still Present Suicide/Self Injury Attempted (Context): None Modifying Factor(s): Alcohol Severity: None Pain Scale Rating Of: 0 Associated Symptoms: denies: Depression, Suicidal Thoughts, Suicidal Plan Involuntary Hold By: None Recent travel outside of the [place]: No Past Medical History Reviewed: Historical Data, Nursing Documentation, Vital Signs Vital Signs: Last Vital Signs Temp 97.6 F 05/20/17 04:31 Pulse 81 05/20/17 04:31 Resp 20 05/20/17 04:31 BP 134/85 05/20/17 04:31 Pulse Ox 96 05/20/17 04:31 - Medical History PMH: Anxiety, Arthritis, Bronchitis, CAD, Depression, 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 check writer, not aware), Fractures (Rt. Fa.), Gastritis, Gall Bladder Disease (s/p cholecystectomy), HTN, Post Traumatic Stress Disorder, Rheumatoid Arthritis, Seizures, Chronic Pain Surgical History: Cholecystectomy - [facility] Procedures ALCOHOL DETOXIFICATION (07/04/15) APPLICATION OF SPLINT (03/20/13) CLOSURE SKIN & SUBCUTANEOUS NEC (08/14/13) DETOXIFICATION SERVICES FOR SUBSTANCE ABUSE TREATMENT (03/22/16) ESOPHAGOGASTRODUODENOSCOPY [EGD] W/CLOSED BIOPSY (02/16/15) OTHER GROUP THERAPY (03/12/13) PHYSICAL THERAPY NEC (07/04/15) TETANUS TOXOID ADMINIST (01/19/14) Family History: States: Unknown Family Hx - Social History Hx Tobacco Use: No Hx Alcohol Use: Yes Hx Substance Use: No - Immunization History Hx Tetanus Toxoid Vaccination: Yes Hx Influenza Vaccination: Yes Hx Pneumococcal Vaccination: Yes Review Of Systems Constitutional: Negative for: Fever, Chills Gastrointestinal: Negative for: Nausea, Vomiting, Diarrhea Physical Exam - Physical Exam Appears: Non-toxic Skin: Warm, Dry Oral Mucosa: Moist Chest: Symmetrical, No Tenderness Cardiovascular: Rhythm Regular, No Murmur Respiratory: No Rales, No Rhonchi, No Wheezing Gastrointestinal/Abdominal: Soft, No Tenderness Neurological/Psych: Oriented x3 ED Course And Treatment O2 Sat by Pulse Oximetry: 99 (Room air) Pulse Ox Interpretation: Normal Reevaluation Time: 05:21 Reassessment Condition: Improved ED OBSERVATION Discharge: Yes Date of observation admission: 05/19/17 Time of observation admission: 23:23 - Observation admission statement Patient is being placed in observation because:: acute alcohol intoxication - Goals of Observation Goals of observation are:: sobriety - Progress Note Progress Note: 05/19/17 23:24 vitals stable 05/20/17 03:24 no complaints Disposition Counseled Patient/Family Regarding: Studies Performed, Diagnosis, Need For Followup - Disposition Referrals: Fabián Huang MD [Primary Care Provider] - Disposition: HOME/ ROUTINE Disposition Time: 23:21 Condition: FAIR Instructions: Alcohol Intoxication (DC) Forms: [facility] (Belarusian) - Clinical Impression Clinical Impression: Alcohol abuse with intoxication - Scribe Statement The provider has reviewed the documentation as recorded by the Scribe Fabián Ramirez All medical record entries made by the Scribe were at my direction and personally dictated by me. I have reviewed the chart and agree that the record accurately reflects my personal performance of the history, physical exam, medical decision making, and the department course for this patient. I have also personally directed, reviewed, and agree with the discharge instructions and disposition.
[2017-05-20 04:31] VITALS: BP 134/85; PULSE 81; TEMP 97.6
[2017-05-20 05:21] VITALS: O2SAT 99
== END 2017-05-20 05:30 | disposition home or self-care (01) ==
LOC: C.ER 22:48 → SUPCPDRO 22:48 → C.ER 05-20 05:30
DX: F10.129 Alcohol abuse with intoxication, unspecified (principal)

== ENCOUNTER 2017-05-20 22:28 | Observation (INO) | payer MEDICAID ==
[2017-05-20 22:28] VITALS: BMI 26.4
--- NOTE | 2017-05-20 23:15 | C.PDOC ---
History Of Present Illness 56 year old male who presents to the ER with acute ETOH intoxication. Denies physical complaints at this time. Time Seen by Provider: 05/20/17 22:49 Chief Complaint (Nursing): Substance Abuse History Per: Patient History/Exam Limitations: no limitations Onset/Duration Of Symptoms: Hrs Current Symptoms Are (Timing): Still Present Suicide/Self Injury Attempted (Context): None Modifying Factor(s): Alcohol Associated Symptoms: denies: Depression, Suicidal Thoughts, Suicidal Plan Involuntary Hold By: None Recent travel outside of the [place]: No Past Medical History Reviewed: Historical Data, Nursing Documentation, Vital Signs Vital Signs: Last Vital Signs Temp 97.7 F 05/21/17 05:44 Pulse 73 05/21/17 05:44 Resp 20 05/21/17 05:44 BP 159/89 H 05/21/17 05:44 Pulse Ox 96 05/21/17 05:44 - Medical History PMH: Anxiety, Arthritis, Bronchitis, CAD, Depression, 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 writer, not aware), Fractures (Rt. Fa.), Gastritis, Gall Bladder Disease (s/p cholecystectomy), HTN, Post Traumatic Stress Disorder, Rheumatoid Arthritis, Seizures, Chronic Pain Surgical History: Cholecystectomy - [facility] Procedures ALCOHOL DETOXIFICATION (07/04/15) APPLICATION OF SPLINT (03/20/13) CLOSURE SKIN & SUBCUTANEOUS NEC (08/14/13) DETOXIFICATION SERVICES FOR SUBSTANCE ABUSE TREATMENT (03/22/16) ESOPHAGOGASTRODUODENOSCOPY [EGD] W/CLOSED BIOPSY (02/16/15) OTHER GROUP THERAPY (03/12/13) PHYSICAL THERAPY NEC (07/04/15) TETANUS TOXOID ADMINIST (01/19/14) Family History: States: Unknown Family Hx - Social History Hx Tobacco Use: No Hx Alcohol Use: Yes Hx Substance Use: No - Immunization History Hx Tetanus Toxoid Vaccination: Yes Hx Influenza Vaccination: Yes Hx Pneumococcal Vaccination: Yes Review Of Systems Except As Marked, All Systems Reviewed And Found Negative. Constitutional: Negative for: Fever, Chills Gastrointestinal: Negative for: Nausea, Vomiting, Diarrhea Physical Exam - Physical Exam Appears: Non-toxic, No Acute Distress, Other (ETOH on breath) Skin: Normal Color, Warm, Dry Head: Atraumatic, Normacephalic Oral Mucosa: Moist Chest: Symmetrical, No Tenderness Cardiovascular: Rhythm Regular, No Murmur Respiratory: Other (Speaking in complete sentences, no respiratory distress) Gastrointestinal/Abdominal: Soft, No Tenderness Neurological/Psych: Oriented x3, Normal Speech, Normal Cognition ED Course And Treatment O2 Sat by Pulse Oximetry: 97 ED OBSERVATION Discharge: Yes Date of observation admission: 05/20/17 Time of observation admission: 23:00 - Observation admission statement Patient is being placed in observation because:: ETOH INTOX - Goals of Observation Goals of observation are:: SOBRIETY - Progress Note Progress Note: 05/21/17 05:43 CLEAR SPEECH AND THOUGHT STEADY GAIT. NO SIGNS ACUTE INTOX Disposition Counseled Patient/Family Regarding: Diagnosis - Disposition Disposition: HOME/ ROUTINE Disposition Time: 06:00 Condition: IMPROVED - Clinical Impression Clinical Impression: Alcohol intoxication - Scribe Statement The provider has reviewed the documentation as recorded by the Scribjosé miguel Ramirez All medical record entries made by the Rominaibjosé miguel were at my direction and personally dictated by me. I have reviewed the chart and agree that the record accurately reflects my personal performance of the history, physical exam, medical decision making, and the department course for this patient. I have also personally directed, reviewed, and agree with the discharge instructions and disposition.
[2017-05-21 05:45] VITALS: BP 159/89; PULSE 73; RESP 20; TEMP 97.7
[2017-05-23 10:06] VITALS: O2SAT 97
== END 2017-05-21 05:43 | disposition home or self-care (01) ==
LOC: C.ER 22:28 → C.9OBSV 23:00
PROVIDERS: ADMIT Emergency Medicine; ATTEND Emergency Medicine
DX: F10.129 Alcohol abuse with intoxication, unspecified (principal); Y90.9 Presence of alcohol in blood, level not specified
CPT/HCPCS: 82948; 99283; G0378

== ENCOUNTER 2017-05-21 22:49 | Emergency (ER) | payer MEDICAID ==
[2017-05-21 22:50] VITALS: BMI 26.4
--- NOTE | 2017-05-22 00:20 | C.PDOC ---
History Of Present Illness 56 year old male who presents to the ER with acute ETOH intoxication. Denies physical complaints at this time. Chief Complaint (Nursing): Substance Abuse History Per: Patient History/Exam Limitations: no limitations Onset/Duration Of Symptoms: Hrs Current Symptoms Are (Timing): Still Present Suicide/Self Injury Attempted (Context): None Modifying Factor(s): Alcohol Associated Symptoms: denies: Depression, Suicidal Thoughts, Suicidal Plan Involuntary Hold By: None Recent travel outside of the [place]: No Past Medical History Reviewed: Historical Data, Nursing Documentation, Vital Signs Vital Signs: Last Vital Signs Temp 98.3 F 05/21/17 22:57 Pulse 90 05/21/17 22:57 Resp 20 05/21/17 22:57 BP 119/71 05/21/17 22:57 Pulse Ox 96 05/22/17 00:22 - Medical History PMH: Anxiety, Arthritis, Bronchitis, CAD, Depression, 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 medical underwriter, not aware), Fractures (Rt. Fa.), Gastritis, Gall Bladder Disease (s/p cholecystectomy), HTN, Post Traumatic Stress Disorder, Rheumatoid Arthritis, Seizures, Chronic Pain Surgical History: Cholecystectomy - [facility] Procedures ALCOHOL DETOXIFICATION (07/04/15) APPLICATION OF SPLINT (03/20/13) CLOSURE SKIN & SUBCUTANEOUS NEC (08/14/13) DETOXIFICATION SERVICES FOR SUBSTANCE ABUSE TREATMENT (03/22/16) ESOPHAGOGASTRODUODENOSCOPY [EGD] W/CLOSED BIOPSY (02/16/15) OTHER GROUP THERAPY (03/12/13) PHYSICAL THERAPY NEC (07/04/15) TETANUS TOXOID ADMINIST (01/19/14) Family History: States: Unknown Family Hx - Social History Hx Tobacco Use: No Hx Alcohol Use: Yes Hx Substance Use: No - Immunization History Hx Tetanus Toxoid Vaccination: Yes Hx Influenza Vaccination: Yes Hx Pneumococcal Vaccination: Yes Review Of Systems Constitutional: Negative for: Fever, Chills Gastrointestinal: Negative for: Nausea, Vomiting, Diarrhea Physical Exam - Physical Exam Appears: Non-toxic, No Acute Distress, Other (ETOH on breath) Skin: Normal Color, Warm, Dry Head: Atraumatic, Normacephalic Oral Mucosa: Moist Chest: Symmetrical, No Tenderness Cardiovascular: Rhythm Regular, No Murmur Respiratory: Normal Breath Sounds, No Rales, No Rhonchi, No Wheezing Gastrointestinal/Abdominal: Soft, No Tenderness Neurological/Psych: Oriented x3, Normal Speech, Normal Cognition ED Course And Treatment O2 Sat by Pulse Oximetry: 96 (Room air) Pulse Ox Interpretation: Normal Disposition - Disposition Referrals: [facility] [Outside] Disposition: HOME/ ROUTINE Disposition Time: 05:52 Condition: STABLE Instructions: Alcohol Intoxication (GEN) Forms: [facility] (Trinidadian) - Clinical Impression Clinical Impression: Alcohol intoxication - Scribe Statement The provider has reviewed the documentation as recorded by the Scribe Fabián Ramirez All medical record entries made by the Scribe were at my direction and personally dictated by me. I have reviewed the chart and agree that the record accurately reflects my personal performance of the history, physical exam, medical decision making, and the department course for this patient. I have also personally directed, reviewed, and agree with the discharge instructions and disposition.
[2017-05-22 05:57] VITALS: BP 142/88; PULSE 91; RESP 16; TEMP 97.9; O2SAT 98
== END 2017-05-22 06:01 | disposition home or self-care (01) ==
LOC: C.ER 22:49
DX: F10.129 Alcohol abuse with intoxication, unspecified (principal)

== ENCOUNTER 2017-05-22 22:29 | Emergency (ER) | payer MEDICAID ==
[2017-05-22 22:30] VITALS: BMI 26.4
[2017-05-22 22:44] VITALS: O2SAT 96
--- NOTE | 2017-05-22 22:48 | C.PDOC ---
History Of Present Illness Patient presents to the ER with acute ETOH intoxication. Denies physical complaints at this time. Time Seen by Provider: 05/22/17 22:46 Chief Complaint (Nursing): Substance Abuse History Per: Patient History/Exam Limitations: no limitations Onset/Duration Of Symptoms: Hrs Current Symptoms Are (Timing): Still Present Suicide/Self Injury Attempted (Context): None Modifying Factor(s): Alcohol Severity: None Pain Scale Rating Of: 0 Associated Symptoms: denies: Depression, Suicidal Thoughts, Suicidal Plan Involuntary Hold By: None Recent travel outside of the [place]: No Past Medical History Reviewed: Historical Data, Nursing Documentation, Vital Signs Vital Signs: Last Vital Signs Temp 97.8 F 05/23/17 04:33 Pulse 82 05/23/17 04:33 Resp 18 05/23/17 04:33 BP 124/71 05/23/17 04:33 Pulse Ox 96 05/23/17 04:33 - Medical History PMH: Anxiety, Arthritis, Bronchitis, CAD, Depression, 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 automatic typewriter inspector, not aware), Fractures (Rt. Fa.), Gastritis, Gall Bladder Disease (s/p cholecystectomy), HTN, Post Traumatic Stress Disorder, Rheumatoid Arthritis, Seizures, Chronic Pain Surgical History: Cholecystectomy - [facility] Procedures ALCOHOL DETOXIFICATION (07/04/15) APPLICATION OF SPLINT (03/20/13) CLOSURE SKIN & SUBCUTANEOUS NEC (08/14/13) DETOXIFICATION SERVICES FOR SUBSTANCE ABUSE TREATMENT (03/22/16) ESOPHAGOGASTRODUODENOSCOPY [EGD] W/CLOSED BIOPSY (02/16/15) OTHER GROUP THERAPY (03/12/13) PHYSICAL THERAPY NEC (07/04/15) TETANUS TOXOID ADMINIST (01/19/14) Family History: States: Unknown Family Hx - Social History Hx Tobacco Use: No Hx Alcohol Use: Yes Hx Substance Use: No - Immunization History Hx Tetanus Toxoid Vaccination: Yes Hx Influenza Vaccination: Yes Hx Pneumococcal Vaccination: Yes Review Of Systems Constitutional: Negative for: Fever, Chills Gastrointestinal: Negative for: Nausea, Vomiting, Diarrhea Physical Exam - Physical Exam Appears: Non-toxic, No Acute Distress, Other (ETOH on breath) Skin: Warm, Dry Oral Mucosa: Moist Chest: Symmetrical, No Tenderness Cardiovascular: Rhythm Regular, No Murmur Respiratory: No Rales, No Rhonchi, No Wheezing Gastrointestinal/Abdominal: Soft, No Tenderness Neurological/Psych: Oriented x3 ED Course And Treatment O2 Sat by Pulse Oximetry: 96 (Room air) Pulse Ox Interpretation: Normal Reevaluation Time: 05:08 Reassessment Condition: Improved ED OBSERVATION Discharge: Yes Date of observation admission: 05/22/17 Time of observation admission: 22:48 - Observation admission statement Patient is being placed in observation because:: acute alcohol intoxication - Goals of Observation Goals of observation are:: sobriety - Progress Note Progress Note: 05/22/17 22:48 vitals stable 05/23/17 01:38 no complaints 05/23/17 04:38 ambulating without difficulty Disposition Counseled Patient/Family Regarding: Studies Performed, Diagnosis, Need For Followup - Disposition Referrals: [facility] [Outside] Disposition: HOME/ ROUTINE Disposition Time: 22:47 Condition: FAIR Instructions: Alcohol Intoxication (DC) Forms: [facility] (Nigerian) - Clinical Impression Clinical Impression: Alcoholic intoxication - Scribe Statement The provider has reviewed the documentation as recorded by the Scribjosé miguel Ramirez All medical record entries made by the Scribe were at my direction and personally dictated by me. I have reviewed the chart and agree that the record accurately reflects my personal performance of the history, physical exam, medical decision making, and the department course for this patient. I have also personally directed, reviewed, and agree with the discharge instructions and disposition.
[2017-05-23 02:41] VITALS: RESP 18
[2017-05-23 04:34] VITALS: BP 124/71; PULSE 82; TEMP 97.8
== END 2017-05-23 05:40 | disposition home or self-care (01) ==
LOC: C.ER 22:29
DX: F10.129 Alcohol abuse with intoxication, unspecified (principal)

== ENCOUNTER 2017-05-23 21:31 | Observation (INO) | payer MEDICAID ==
[2017-05-23 21:32] VITALS: BMI 26.4
--- NOTE | 2017-05-23 22:31 | C.PDOC ---
History Of Present Illness Patient presents to ED with acute ETOH intoxication. No physical complaints at this time Time Seen by Provider: 05/23/17 22:25 Chief Complaint (Nursing): Substance Abuse History Per: Patient History/Exam Limitations: no limitations Onset/Duration Of Symptoms: Hrs Current Symptoms Are (Timing): Still Present Suicide/Self Injury Attempted (Context): None Modifying Factor(s): Alcohol Severity: Mild Pain Scale Rating Of: 2 Associated Symptoms: denies: Anxiety Involuntary Hold By: None Recent travel outside of the [place]: No Past Medical History Reviewed: Historical Data, Nursing Documentation, Vital Signs Vital Signs: Last Vital Signs Temp 98.3 F 05/24/17 03:13 Pulse 86 05/24/17 03:13 Resp 18 05/24/17 03:13 BP 153/84 H 05/24/17 03:13 Pulse Ox 98 05/24/17 03:13 - Medical History PMH: Anxiety, Arthritis, Bronchitis, CAD, Depression, 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 rfp writer, not aware), Fractures (Rt. Fa.), Gastritis, Gall Bladder Disease (s/p cholecystectomy), HTN, Post Traumatic Stress Disorder, Rheumatoid Arthritis, Seizures, Chronic Pain Surgical History: Cholecystectomy - [facility] Procedures ALCOHOL DETOXIFICATION (07/04/15) APPLICATION OF SPLINT (03/20/13) CLOSURE SKIN & SUBCUTANEOUS NEC (08/14/13) DETOXIFICATION SERVICES FOR SUBSTANCE ABUSE TREATMENT (03/22/16) ESOPHAGOGASTRODUODENOSCOPY [EGD] W/CLOSED BIOPSY (02/16/15) OTHER GROUP THERAPY (03/12/13) PHYSICAL THERAPY NEC (07/04/15) TETANUS TOXOID ADMINIST (01/19/14) Family History: States: No Known Family Hx - Social History Hx Tobacco Use: No Hx Alcohol Use: Yes Hx Substance Use: No - Immunization History Hx Tetanus Toxoid Vaccination: Yes Hx Influenza Vaccination: Yes Hx Pneumococcal Vaccination: Yes Review Of Systems Constitutional: Negative for: Fever, Chills Gastrointestinal: Negative for: Nausea, Vomiting, Diarrhea Skin: Negative for: Rash Psych: Negative for: Anxiety Physical Exam - Physical Exam Appears: Non-toxic, No Acute Distress, Other (Alcohol in breath) Skin: Warm, Dry Head: Normacephalic Oral Mucosa: Moist Chest: Symmetrical Cardiovascular: Rhythm Regular Respiratory: No Rales, No Rhonchi, No Wheezing Gastrointestinal/Abdominal: Soft, No Tenderness, No Guarding, No Rebound Neurological/Psych: Oriented x3 ED Course And Treatment O2 Sat by Pulse Oximetry: 96 (RA) Pulse Ox Interpretation: Normal Reevaluation Time: 04:56 Reassessment Condition: Improved ED OBSERVATION Discharge: Yes Date of observation admission: 05/23/17 Time of observation admission: 22:31 - Observation admission statement Patient is being placed in observation because:: acute alcohol intoxication - Goals of Observation Goals of observation are:: sobriety - Progress Note Progress Note: 05/23/17 22:32 vitals stable 05/24/17 01:57 no complaints 05/24/17 04:57 ambulating without difficulty Disposition Counseled Patient/Family Regarding: Studies Performed, Diagnosis, Need For Followup - Disposition Disposition: HOME/ ROUTINE Disposition Time: 22:25 Condition: FAIR - Clinical Impression Clinical Impression: Acute alcohol intoxication - Scribe Statement The provider has reviewed the documentation as recorded by the Jada Contreras All medical record entries made by the Rominaibjosé miguel were at my direction and personally dictated by me. I have reviewed the chart and agree that the record accurately reflects my personal performance of the history, physical exam, medical decision making, and the department course for this patient. I have also personally directed, reviewed, and agree with the discharge instructions and disposition. Decision To Admit - . Patient Diagnosis: Acute alcohol intoxication
[2017-05-24 03:14] VITALS: RESP 18; TEMP 98.3
[2017-05-24 05:28] VITALS: BP 151/83; PULSE 83; O2SAT 95
== END 2017-05-24 04:57 | disposition home or self-care (01) ==
LOC: C.ER 21:31 → C.9OBSV 22:32
PROVIDERS: ADMIT Emergency Medicine; ATTEND Emergency Medicine
DX: F10.129 Alcohol abuse with intoxication, unspecified (principal); Y90.9 Presence of alcohol in blood, level not specified
CPT/HCPCS: 82948; 99285; G0378

== ENCOUNTER 2017-05-24 20:23 | Observation (INO) | payer MEDICAID ==
[2017-05-24 20:23] VITALS: BMI 26.4
--- NOTE | 2017-05-24 20:34 | C.PDOC ---
History Of Present Illness 56 year old male who presents to the ER with acute ETOH intoxication. Denies physical complaints at this time. Time Seen by Provider: 05/24/17 20:34 History Per: Patient History/Exam Limitations: no limitations Onset/Duration Of Symptoms: Days Current Symptoms Are (Timing): Still Present Suicide/Self Injury Attempted (Context): None Modifying Factor(s): Alcohol Severity: None Pain Scale Rating Of: 0 Associated Symptoms: denies: Depression, Suicidal Thoughts, Suicidal Plan Involuntary Hold By: None Recent travel outside of the [place]: No Past Medical History Reviewed: Historical Data, Nursing Documentation, Vital Signs Vital Signs: Last Vital Signs Temp 98 F 05/24/17 20:44 Pulse 79 05/24/17 20:44 Resp 20 05/24/17 20:44 BP 123/67 05/24/17 20:44 Pulse Ox 97 05/24/17 20:44 - Medical History PMH: Anxiety, Arthritis, Bronchitis, CAD, Depression, 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 investment underwriter, not aware), Fractures (Rt. Fa.), Gastritis, Gall Bladder Disease (s/p cholecystectomy), HTN, Post Traumatic Stress Disorder, Rheumatoid Arthritis, Seizures, Chronic Pain Surgical History: Cholecystectomy - [facility] Procedures ALCOHOL DETOXIFICATION (07/04/15) APPLICATION OF SPLINT (03/20/13) CLOSURE SKIN & SUBCUTANEOUS NEC (08/14/13) DETOXIFICATION SERVICES FOR SUBSTANCE ABUSE TREATMENT (03/22/16) ESOPHAGOGASTRODUODENOSCOPY [EGD] W/CLOSED BIOPSY (02/16/15) OTHER GROUP THERAPY (03/12/13) PHYSICAL THERAPY NEC (07/04/15) TETANUS TOXOID ADMINIST (01/19/14) Family History: States: No Known Family Hx - Social History Hx Tobacco Use: No Hx Alcohol Use: Yes Hx Substance Use: No - Immunization History Hx Tetanus Toxoid Vaccination: Yes Hx Influenza Vaccination: Yes Hx Pneumococcal Vaccination: Yes Review Of Systems Constitutional: Negative for: Fever, Chills Gastrointestinal: Negative for: Nausea, Vomiting, Diarrhea Physical Exam - Physical Exam Appears: Non-toxic, No Acute Distress, Other (ETOH on breath) Skin: Warm, Dry Oral Mucosa: Moist Chest: Symmetrical, No Tenderness Cardiovascular: Rhythm Regular, No Murmur Respiratory: No Rales, No Rhonchi, No Wheezing Gastrointestinal/Abdominal: Soft, No Tenderness Neurological/Psych: Oriented x3 ED Course And Treatment O2 Sat by Pulse Oximetry: 97 Pulse Ox Interpretation: Normal ED OBSERVATION Discharge: Yes Date of observation admission: 05/24/17 Time of observation admission: 20:50 - Observation admission statement Patient is being placed in observation because:: Acute ETOH intoxication - Goals of Observation Goals of observation are:: Sobriety - Progress Note Progress Note: 05/24/17 22:42 vitals stable 05/25/17 01:52 no complaints 05/25/17 04:52 ambulating to the bathroom with steady gait Disposition Counseled Patient/Family Regarding: Studies Performed, Diagnosis - Disposition Disposition: HOME/ ROUTINE Disposition Time: 20:34 Condition: FAIR - Clinical Impression Clinical Impression: Acute alcohol intoxication - Scribe Statement The provider has reviewed the documentation as recorded by the Scribjosé miguel Ramirez All medical record entries made by the Rominaibjosé miguel were at my direction and personally dictated by me. I have reviewed the chart and agree that the record accurately reflects my personal performance of the history, physical exam, medical decision making, and the department course for this patient. I have also personally directed, reviewed, and agree with the discharge instructions and disposition.
[2017-05-24 20:49] VITALS: RESP 20
[2017-05-25 06:06] VITALS: BP 135/85; PULSE 80; TEMP 98; O2SAT 99
== END 2017-05-25 04:53 | disposition home or self-care (01) ==
LOC: C.ER 20:23 → C.9OBSV 22:41
PROVIDERS: ADMIT Emergency Medicine; ATTEND Emergency Medicine
DX: F10.129 Alcohol abuse with intoxication, unspecified (principal); Y90.9 Presence of alcohol in blood, level not specified
CPT/HCPCS: 82948; 99283; G0378

== ENCOUNTER 2017-05-25 21:33 | Observation (INO) | payer MEDICAID ==
[2017-05-25 21:34] VITALS: BMI 26.4
[2017-05-25 21:42] VITALS: BP 127/69; PULSE 84; RESP 16; TEMP 97.9; O2SAT 95
--- NOTE | 2017-05-25 22:05 | C.PDOC ---
History Of Present Illness 56 year old male was brought to the ED by EMS after being found with EtOH on breath. Patient is well known to this ED and is seeking a place to stay. He denies any physical complaints at this time. Chief Complaint (Nursing): Substance Abuse History Per: Patient, EMS History/Exam Limitations: no limitations Suicide/Self Injury Attempted (Context): None Associated Symptoms: denies: Suicidal Thoughts, Suicidal Plan Involuntary Hold By: None Recent travel outside of the [place]: No Additional History Per: Prior Records Past Medical History Reviewed: Historical Data, Nursing Documentation, Vital Signs Vital Signs: Last Vital Signs Temp 97.9 F 05/25/17 21:41 Pulse 84 05/25/17 21:41 Resp 16 05/25/17 21:41 BP 127/69 05/25/17 21:41 Pulse Ox 95 05/26/17 00:41 - Medical History PMH: Anxiety, Arthritis, Bronchitis, CAD, Depression, 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 commercial real estate underwriter, not aware), Fractures (Rt. Fa.), Gastritis, Gall Bladder Disease (s/p cholecystectomy), HTN, Post Traumatic Stress Disorder, Rheumatoid Arthritis, Seizures, Chronic Pain Surgical History: Cholecystectomy - [facility] Procedures ALCOHOL DETOXIFICATION (07/04/15) APPLICATION OF SPLINT (03/20/13) CLOSURE SKIN & SUBCUTANEOUS NEC (08/14/13) DETOXIFICATION SERVICES FOR SUBSTANCE ABUSE TREATMENT (03/22/16) ESOPHAGOGASTRODUODENOSCOPY [EGD] W/CLOSED BIOPSY (02/16/15) OTHER GROUP THERAPY (03/12/13) PHYSICAL THERAPY NEC (07/04/15) TETANUS TOXOID ADMINIST (01/19/14) Family History: States: Unknown Family Hx - Social History Hx Tobacco Use: No Hx Alcohol Use: Yes Hx Substance Use: No - Immunization History Hx Tetanus Toxoid Vaccination: Yes Hx Influenza Vaccination: Yes Hx Pneumococcal Vaccination: Yes Review Of Systems Constitutional: Negative for: Fever, Chills Cardiovascular: Negative for: Chest Pain Respiratory: Negative for: Shortness of Breath Gastrointestinal: Negative for: Nausea, Vomiting, Abdominal Pain Psych: Negative for: Suicidal ideation Physical Exam - Physical Exam Appears: Non-toxic, No Acute Distress, Unkempt Skin: Warm, Dry Head: Atraumatic Eye(s): bilateral: Normal Inspection, PERRL, EOMI Oral Mucosa: Moist Neck: Supple Chest: Symmetrical, No Deformity Cardiovascular: Rhythm Regular Respiratory: Normal Breath Sounds, No Rhonchi, No Wheezing Gastrointestinal/Abdominal: Soft, No Tenderness, No Distention, No Guarding, No Rebound Neurological/Psych: Oriented x3 ED Course And Treatment O2 Sat by Pulse Oximetry: 95 (room air ) ED OBSERVATION Date of observation admission: 05/25/17 Time of observation admission: 21:50 - Observation admission statement Patient is being placed in observation because:: patient is intoxicated. - Goals of Observation Goals of observation are:: sobriety. - Progress Note Progress Note: 05/26/17 00:40 Patient is resting comfortably and is in no acute distress. Disposition Counseled Patient/Family Regarding: Diagnosis - Disposition Disposition: HOME/ ROUTINE Disposition Time: 06:09 Condition: STABLE - POA Present On Arrival: None - Clinical Impression Clinical Impression: Alcohol intoxication - Scribe Statement The provider has reviewed the documentation as recorded by the Rominaibjosé miguel Noel All medical record entries made by the Rominaibjosé miguel were at my direction and personally dictated by me. I have reviewed the chart and agree that the record accurately reflects my personal performance of the history, physical exam, medical decision making, and the department course for this patient. I have also personally directed, reviewed, and agree with the discharge instructions and disposition.
== END 2017-05-26 06:08 | disposition home or self-care (01) ==
LOC: C.ER 21:33 → C.9OBSV 22:07
PROVIDERS: ADMIT Emergency Medicine; ATTEND Emergency Medicine
DX: F10.129 Alcohol abuse with intoxication, unspecified (principal); Y90.9 Presence of alcohol in blood, level not specified
CPT/HCPCS: 82948; 99283; G0378

== ENCOUNTER 2017-05-26 22:44 | Emergency (ER) | payer MEDICAID ==
[2017-05-26 22:45] VITALS: BMI 26.4
[2017-05-26 23:35] VITALS: RESP 20
--- NOTE | 2017-05-27 01:33 | C.PDOC ---
History Of Present Illness 56 year old male presents to the ED intoxicated and seeking a place to stay. Patient is well known to this ED and denies any physical complaints at this time. Time Seen by Provider: 05/26/17 23:14 Chief Complaint (Nursing): Substance Abuse History Per: Patient History/Exam Limitations: no limitations Suicide/Self Injury Attempted (Context): None Associated Symptoms: denies: Suicidal Thoughts Involuntary Hold By: None Recent travel outside of the [place]: No Additional History Per: Prior Records Past Medical History Reviewed: Historical Data, Nursing Documentation, Vital Signs Vital Signs: Last Vital Signs Temp 98.2 F 05/27/17 04:19 Pulse 74 05/27/17 04:19 Resp 20 05/27/17 04:19 BP 134/84 05/27/17 04:19 Pulse Ox 98 05/27/17 04:19 - Medical History PMH: Anxiety, Arthritis, Bronchitis, CAD, Depression, 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), Fractures (Rt. Fa.), Gastritis, Gall Bladder Disease (s/p cholecystectomy), HTN, Post Traumatic Stress Disorder, Rheumatoid Arthritis, Seizures, Chronic Pain Surgical History: Cholecystectomy - [facility] Procedures ALCOHOL DETOXIFICATION (07/04/15) APPLICATION OF SPLINT (03/20/13) CLOSURE SKIN & SUBCUTANEOUS NEC (08/14/13) DETOXIFICATION SERVICES FOR SUBSTANCE ABUSE TREATMENT (03/22/16) ESOPHAGOGASTRODUODENOSCOPY [EGD] W/CLOSED BIOPSY (02/16/15) OTHER GROUP THERAPY (03/12/13) PHYSICAL THERAPY NEC (07/04/15) TETANUS TOXOID ADMINIST (01/19/14) Family History: States: Unknown Family Hx - Social History Hx Tobacco Use: No Hx Alcohol Use: Yes Hx Substance Use: No - Immunization History Hx Tetanus Toxoid Vaccination: Yes Hx Influenza Vaccination: Yes Hx Pneumococcal Vaccination: Yes Review Of Systems Constitutional: Negative for: Fever Cardiovascular: Negative for: Chest Pain Respiratory: Negative for: Shortness of Breath Gastrointestinal: Negative for: Nausea, Vomiting, Abdominal Pain, Diarrhea Physical Exam - Physical Exam Appears: Non-toxic, No Acute Distress, Unkempt, Other (Disheveled and foul smelling ) Skin: Warm, Dry Head: Atraumatic Eye(s): bilateral: Normal Inspection, PERRL, EOMI Oral Mucosa: Moist Neck: Supple Chest: Symmetrical, No Deformity Cardiovascular: Rhythm Regular Respiratory: Normal Breath Sounds, No Wheezing Gastrointestinal/Abdominal: Soft, No Tenderness, No Distention, No Guarding, No Rebound Neurological/Psych: Oriented x3 ED Course And Treatment O2 Sat by Pulse Oximetry: 95 (room air ) Reevaluation Time: 05:30 Reassessment Condition: Improved Medical Decision Making Medical Decision Making: typical alcohol abuse and malingering ED OBSERVATION Discharge: Yes Date of observation admission: 05/27/17 Time of observation admission: 01:31 - Observation admission statement Patient is being placed in observation because:: patient is intoxicated. - Goals of Observation Goals of observation are:: sobriety. Disposition Doctor Will See Patient In The: Office Counseled Patient/Family Regarding: Studies Performed, Diagnosis - Disposition Disposition: HOME/ ROUTINE Disposition Time: 04:47 Condition: GOOD Forms: [facility] (Micronesian) - Clinical Impression Clinical Impression: Alcohol abuse with intoxication - Scribe Statement The provider has reviewed the documentation as recorded by the Rominaibjosé miguel Noel All medical record entries made by the Jada were at my direction and personally dictated by me. I have reviewed the chart and agree that the record accurately reflects my personal performance of the history, physical exam, medical decision making, and the department course for this patient. I have also personally directed, reviewed, and agree with the discharge instructions and disposition.
[2017-05-27 02:14] VITALS: TEMP 98.2
[2017-05-27 04:20] VITALS: BP 134/84; PULSE 74
[2017-05-27 04:47] VITALS: O2SAT 95
== END 2017-05-27 05:20 | disposition home or self-care (01) ==
LOC: C.ER 22:44
DX: F10.129 Alcohol abuse with intoxication, unspecified (principal); Y90.9 Presence of alcohol in blood, level not specified

== ENCOUNTER 2017-05-27 21:18 | Observation (INO) | payer MEDICAID ==
[2017-05-27 21:19] VITALS: BMI 26.4
--- NOTE | 2017-05-27 21:24 | C.PDOC ---
History Of Present Illness Patient presents to the ER with acute ETOH intoxication. Denies physical complaints at this time. Time Seen by Provider: 05/27/17 21:21 History Per: Patient History/Exam Limitations: no limitations Onset/Duration Of Symptoms: Hrs Current Symptoms Are (Timing): Still Present Suicide/Self Injury Attempted (Context): None Modifying Factor(s): Alcohol Severity: None Pain Scale Rating Of: 0 Associated Symptoms: denies: Depression, Suicidal Thoughts, Suicidal Plan Involuntary Hold By: None Recent travel outside of the [place]: No Past Medical History Reviewed: Historical Data, Nursing Documentation, Vital Signs Vital Signs: Last Vital Signs Temp 98 F 05/28/17 05:46 Pulse 82 05/28/17 05:46 Resp 12 05/28/17 05:46 BP 130/70 05/28/17 05:46 Pulse Ox 98 05/28/17 05:46 - Medical History PMH: Anxiety, Arthritis, Bronchitis, CAD, Depression, 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 proposal manager writer, not aware), Fractures (Rt. Fa.), Gastritis, Gall Bladder Disease (s/p cholecystectomy), HTN, Post Traumatic Stress Disorder, Rheumatoid Arthritis, Seizures, Chronic Pain Surgical History: Cholecystectomy - [facility] Procedures ALCOHOL DETOXIFICATION (07/04/15) APPLICATION OF SPLINT (03/20/13) CLOSURE SKIN & SUBCUTANEOUS NEC (08/14/13) DETOXIFICATION SERVICES FOR SUBSTANCE ABUSE TREATMENT (03/22/16) ESOPHAGOGASTRODUODENOSCOPY [EGD] W/CLOSED BIOPSY (02/16/15) OTHER GROUP THERAPY (03/12/13) PHYSICAL THERAPY NEC (07/04/15) TETANUS TOXOID ADMINIST (01/19/14) Family History: States: No Known Family Hx - Social History Hx Tobacco Use: No Hx Alcohol Use: Yes Hx Substance Use: No - Immunization History Hx Tetanus Toxoid Vaccination: Yes Hx Influenza Vaccination: Yes Hx Pneumococcal Vaccination: Yes Review Of Systems Constitutional: Negative for: Fever, Chills Gastrointestinal: Negative for: Nausea, Vomiting, Diarrhea Physical Exam - Physical Exam Appears: Non-toxic, Other (ETOH on breath) Skin: Warm, Dry Oral Mucosa: Moist Chest: Symmetrical, No Tenderness Cardiovascular: Rhythm Regular, No Murmur Respiratory: No Rales, No Rhonchi, No Wheezing Gastrointestinal/Abdominal: Soft, No Tenderness Neurological/Psych: Oriented x3 ED Course And Treatment O2 Sat by Pulse Oximetry: 98 Pulse Ox Interpretation: Normal ED OBSERVATION Discharge: Yes Date of observation admission: 05/27/17 Time of observation admission: 21:39 - Observation admission statement Patient is being placed in observation because:: acute alcohol intoxication - Goals of Observation Goals of observation are:: sobriety - Progress Note Progress Note: 05/27/17 21:39 vitals stable 05/28/17 00:39 no complaints 05/28/17 04:39 vitals stable, ambulating to the bathroom unassisted Disposition Counseled Patient/Family Regarding: Studies Performed, Diagnosis - Disposition Disposition: HOME/ ROUTINE Disposition Time: 21:23 Condition: FAIR - Clinical Impression Clinical Impression: Alcohol abuse with intoxication - Scribe Statement The provider has reviewed the documentation as recorded by the Scribjosé miguel Ramirez All medical record entries made by the Rominaibjosé miguel were at my direction and personally dictated by me. I have reviewed the chart and agree that the record accurately reflects my personal performance of the history, physical exam, medical decision making, and the department course for this patient. I have also personally directed, reviewed, and agree with the discharge instructions and disposition.
[2017-05-28 05:47] VITALS: BP 130/70; PULSE 82; RESP 12; TEMP 98; O2SAT 98
== END 2017-05-28 06:35 | disposition home or self-care (01) ==
LOC: C.ER 21:18 → C.9OBSV 21:38
PROVIDERS: ADMIT Emergency Medicine; ATTEND Emergency Medicine
DX: F10.129 Alcohol abuse with intoxication, unspecified (principal); Y90.9 Presence of alcohol in blood, level not specified
CPT/HCPCS: 82948; G0378

== ENCOUNTER 2017-05-28 21:12 | Observation (INO) | payer MEDICAID | END 2017-05-29 05:07 | disposition home or self-care (01) | LOC: C.ER 21:12 → C.9OBSV 21:58 | PROVIDERS: ADMIT Emergency Medicine | CPT/HCPCS: G0378 ×2 ==

== ENCOUNTER 2017-05-29 20:26 | Emergency (ER) | payer MEDICAID ==
[2017-05-29 20:26] VITALS: BMI 26.4
--- NOTE | 2017-05-30 00:52 | C.PDOC ---
History Of Present Illness 56 year old male who presents to the ER with acute ETOH intoxication. Denies physical complaints at this time. Chief Complaint (Nursing): Substance Abuse History Per: Patient History/Exam Limitations: no limitations Onset/Duration Of Symptoms: Hrs Current Symptoms Are (Timing): Still Present Suicide/Self Injury Attempted (Context): None Modifying Factor(s): Alcohol Associated Symptoms: denies: Depression, Suicidal Thoughts, Suicidal Plan Involuntary Hold By: None Recent travel outside of the [place]: No Past Medical History Reviewed: Historical Data, Nursing Documentation, Vital Signs Vital Signs: Last Vital Signs Temp 98.5 F 05/30/17 04:35 Pulse 86 05/30/17 04:35 Resp 16 05/30/17 04:35 BP 150/87 05/30/17 04:35 Pulse Ox 98 05/30/17 04:35 - Medical History PMH: Anxiety, Arthritis, Bronchitis, CAD, Depression, 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 senior mortgage underwriter, not aware), Fractures (Rt. Fa.), Gastritis, Gall Bladder Disease (s/p cholecystectomy), HTN, Post Traumatic Stress Disorder, Rheumatoid Arthritis, Seizures, Chronic Pain Surgical History: Cholecystectomy - [facility] Procedures ALCOHOL DETOXIFICATION (07/04/15) APPLICATION OF SPLINT (03/20/13) CLOSURE SKIN & SUBCUTANEOUS NEC (08/14/13) DETOXIFICATION SERVICES FOR SUBSTANCE ABUSE TREATMENT (03/22/16) ESOPHAGOGASTRODUODENOSCOPY [EGD] W/CLOSED BIOPSY (02/16/15) OTHER GROUP THERAPY (03/12/13) PHYSICAL THERAPY NEC (07/04/15) TETANUS TOXOID ADMINIST (01/19/14) Family History: States: Unknown Family Hx - Social History Hx Tobacco Use: No Hx Alcohol Use: Yes Hx Substance Use: No - Immunization History Hx Tetanus Toxoid Vaccination: Yes Hx Influenza Vaccination: Yes Hx Pneumococcal Vaccination: Yes Review Of Systems Constitutional: Negative for: Fever, Chills Gastrointestinal: Negative for: Nausea, Vomiting, Diarrhea Physical Exam - Physical Exam Appears: Non-toxic, No Acute Distress, Other (ETOH on breath) Skin: Normal Color, Warm, Dry Head: Atraumatic, Normacephalic Oral Mucosa: Moist Chest: Symmetrical, No Tenderness Cardiovascular: Rhythm Regular, No Murmur Respiratory: Normal Breath Sounds, No Rales, No Rhonchi, No Wheezing Gastrointestinal/Abdominal: Soft, No Tenderness Neurological/Psych: Oriented x3, Normal Speech, Normal Cognition ED Course And Treatment O2 Sat by Pulse Oximetry: 96 (Room air) Pulse Ox Interpretation: Normal ED OBSERVATION Date of observation admission: 05/29/17 Time of observation admission: 22:30 - Observation admission statement Patient is being placed in observation because:: Acute ETOH intoxication - Goals of Observation Goals of observation are:: Sobriety Disposition Counseled Patient/Family Regarding: Diagnosis - Disposition Referrals: [facility] [Outside] Disposition: HOME/ ROUTINE Disposition Time: 05:49 Condition: STABLE Instructions: Abuse of Alcohol (ED) Forms: [employer] (Syriac) - POA Present On Arrival: None - Clinical Impression Clinical Impression: Alcohol intoxication - Scribe Statement The provider has reviewed the documentation as recorded by the Scribe Fabián Ramirez All medical record entries made by the Scribe were at my direction and personally dictated by me. I have reviewed the chart and agree that the record accurately reflects my personal performance of the history, physical exam, medical decision making, and the department course for this patient. I have also personally directed, reviewed, and agree with the discharge instructions and disposition.
[2017-05-30 04:36] VITALS: BP 150/87; PULSE 86; RESP 16; TEMP 98.5
[2017-05-30 05:50] VITALS: O2SAT 96
== END 2017-05-30 05:30 | disposition home or self-care (01) ==
LOC: C.ER 20:26
DX: F10.120 Alcohol abuse with intoxication, uncomplicated (principal); Y90.9 Presence of alcohol in blood, level not specified

== ENCOUNTER 2017-05-30 21:12 | Observation (INO) | payer MEDICAID ==
[2017-05-30 21:12] VITALS: BMI 26.4
--- NOTE | 2017-05-30 21:49 | C.PDOC ---
History Of Present Illness Pt states he is here because he drank too much alcohol. Time Seen by Provider: 05/30/17 21:36 Chief Complaint (Nursing): Substance Abuse History Per: Patient History/Exam Limitations: intoxication Onset/Duration Of Symptoms: Unknown (tonight) Current Symptoms Are (Timing): Still Present Suicide/Self Injury Attempted (Context): None Modifying Factor(s): Alcohol Severity: Moderate Associated Symptoms: denies: Suicidal Thoughts, Suicidal Plan Additional History Per: Prior Records Past Medical History Reviewed: Historical Data, Nursing Documentation, Vital Signs Vital Signs: Last Vital Signs Temp 98.1 F 05/31/17 05:25 Pulse 88 05/31/17 05:25 Resp 18 05/31/17 05:25 BP 137/77 05/31/17 05:25 Pulse Ox 96 05/31/17 05:25 - Medical History PMH: Anxiety, Arthritis, Bronchitis, CAD, Depression, 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 pattern chart writer, not aware), Fractures (Rt. Fa.), Gastritis, Gall Bladder Disease (s/p cholecystectomy), HTN, Post Traumatic Stress Disorder, Rheumatoid Arthritis, Seizures, Chronic Pain Other PMH: Alcohol abuse Surgical History: Cholecystectomy - [facility] Procedures ALCOHOL DETOXIFICATION (07/04/15) APPLICATION OF SPLINT (03/20/13) CLOSURE SKIN & SUBCUTANEOUS NEC (08/14/13) DETOXIFICATION SERVICES FOR SUBSTANCE ABUSE TREATMENT (03/22/16) ESOPHAGOGASTRODUODENOSCOPY [EGD] W/CLOSED BIOPSY (02/16/15) OTHER GROUP THERAPY (03/12/13) PHYSICAL THERAPY NEC (07/04/15) TETANUS TOXOID ADMINIST (01/19/14) Family History: States: Unknown Family Hx - Social History Hx Tobacco Use: No Hx Alcohol Use: Yes Hx Substance Use: No - Immunization History Hx Tetanus Toxoid Vaccination: Yes Hx Influenza Vaccination: Yes Hx Pneumococcal Vaccination: Yes Review Of Systems Review Of Systems: ROS cannot be obtained secondary to pt's inabilty to answer questions. Physical Exam - Physical Exam Appears: Non-toxic, No Acute Distress, Other (AOB, intoxicated) Skin: Normal Color, Warm, Dry Head: Atraumatic, Normacephalic Eye(s): bilateral: PERRL, EOMI Neck: Normal ROM, No Midline Cervical Tenderness, No Step Off Deformity, Supple Chest: Symmetrical, No Deformity Cardiovascular: Rhythm Regular Respiratory: Normal Breath Sounds, No Accessory Muscle Use Gastrointestinal/Abdominal: Soft Extremity: Normal ROM, No Deformity Neurological/Psych: No Normal Speech (slurred), Slow To Respond With Command, Other (Moving all extremities) Gait: Unsteady ED Course And Treatment O2 Sat by Pulse Oximetry: 97 Pulse Ox Interpretation: Normal Reassessment Condition: Improved ED OBSERVATION Discharge: Yes Date of observation admission: 05/30/17 Time of observation admission: 21:49 - Observation admission statement Patient is being placed in observation because:: Alcohol intoxication. - Goals of Observation Goals of observation are:: Sobriety. - Progress Note Progress Note: 05/31/17 05:42 Pt was checked every 2 hours and remained stable throughout ED stay. He is now AAOx3. Clinically sober. Steady gait. Disposition Counseled Patient/Family Regarding: Diagnosis, Need For Followup - Disposition Disposition: HOME/ ROUTINE Disposition Time: 05:43 Condition: IMPROVED - Clinical Impression Clinical Impression: Alcoholism /alcohol abuse
[2017-05-31 01:11] VITALS: RESP 18
[2017-05-31 05:26] VITALS: BP 137/77; PULSE 88; TEMP 98.1
[2017-05-31 05:43] VITALS: O2SAT 97
== END 2017-05-31 05:43 | disposition home or self-care (01) ==
LOC: C.ER 21:12 → C.9OBSV 21:50
PROVIDERS: ADMIT Emergency Medicine; ATTEND Emergency Medicine
DX: F10.20 Alcohol dependence, uncomplicated (principal); F41.9 Anxiety disorder, unspecified; E11.9 Type 2 diabetes mellitus without complications; I10 Essential (primary) hypertension; F43.10 Post-traumatic stress disorder, unspecified; M06.9 Rheumatoid arthritis, unspecified; G89.29 Other chronic pain

== ENCOUNTER 2017-06-01 01:12 | Observation (INO) | payer MEDICAID ==
--- NOTE | 2017-06-01 01:21 | C.PDOC ---
History Of Present Illness Patient presents to the ED for evaluation of acute alcohol intoxication for an unknown duration. Patient is familiar to the ED and has had multiple prior presentations to the ED for similar complaints. Patient admits to drinking earlier today. He denies suicidal/homicidal ideation and has no physical complaints at this time. Time Seen by Provider: 06/01/17 01:21 History Per: Patient History/Exam Limitations: intoxication Onset/Duration Of Symptoms: Unknown Current Symptoms Are (Timing): Still Present Suicide/Self Injury Attempted (Context): None Modifying Factor(s): Alcohol Severity: Mild Pain Scale Rating Of: 3 Associated Symptoms: denies: Suicidal Thoughts, Suicidal Plan Involuntary Hold By: None Recent travel outside of the [place]: No Additional History Per: Patient Past Medical History Reviewed: Historical Data, Nursing Documentation, Vital Signs Vital Signs: Last Vital Signs Temp 97.3 F L 06/01/17 01:25 Pulse 74 06/01/17 01:25 Resp 20 06/01/17 01:25 BP 156/97 H 06/01/17 01:25 Pulse Ox 100 06/01/17 02:16 - Medical History PMH: Anxiety, Arthritis, Bronchitis, CAD, Depression, 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 chart writer, not aware), Fractures (Rt. Fa.), Gastritis, Gall Bladder Disease (s/p cholecystectomy), HTN, Post Traumatic Stress Disorder, Rheumatoid Arthritis, Seizures, Chronic Pain Surgical History: Cholecystectomy - [facility] Procedures ALCOHOL DETOXIFICATION (07/04/15) APPLICATION OF SPLINT (03/20/13) CLOSURE SKIN & SUBCUTANEOUS NEC (08/14/13) DETOXIFICATION SERVICES FOR SUBSTANCE ABUSE TREATMENT (03/22/16) ESOPHAGOGASTRODUODENOSCOPY [EGD] W/CLOSED BIOPSY (02/16/15) OTHER GROUP THERAPY (03/12/13) PHYSICAL THERAPY NEC (07/04/15) TETANUS TOXOID ADMINIST (01/19/14) Family History: States: Unknown Family Hx - Social History Hx Tobacco Use: No Hx Alcohol Use: Yes Hx Substance Use: No - Immunization History Hx Tetanus Toxoid Vaccination: Yes Hx Influenza Vaccination: Yes Hx Pneumococcal Vaccination: Yes Review Of Systems Constitutional: Positive for: Other (+ETOH intoxication ) Cardiovascular: Negative for: Chest Pain Respiratory: Negative for: Cough, Shortness of Breath Gastrointestinal: Negative for: Nausea, Vomiting, Abdominal Pain Skin: Negative for: Rash, Lesions, Jaundice, Bruising Neurological: Negative for: Weakness, Numbness Psych: Negative for: Suicidal ideation Physical Exam - Physical Exam Appears: No Acute Distress, Other (+visibly intoxicated ) Skin: Warm, Dry Head: Normacephalic Eye(s): bilateral: Normal Inspection Oral Mucosa: Moist, Other (alcohol on breath ) Neck: Supple Chest: Symmetrical, No Deformity, No Tenderness Cardiovascular: Rhythm Regular, No Murmur Respiratory: No Rales, No Rhonchi, No Wheezing Extremity: Normal ROM, Capillary Refill (less than 2 seconds ) Neurological/Psych: Other (arousable to touch and verbal stimuli ) Gait: Steady ED Course And Treatment O2 Sat by Pulse Oximetry: 100 (on RA) Pulse Ox Interpretation: Normal Progress Note: Patient placed in ED observation and is pending sobriety. Reevaluation Time: 05:41 Reassessment Condition: Improved ED OBSERVATION Date of observation admission: 06/01/17 Time of observation admission: 01:25 - Observation admission statement Patient is being placed in observation because:: acute alcohol intoxication - Goals of Observation Goals of observation are:: sobriety - Progress Note Progress Note: 06/01/17 01:25 vitals stable Disposition Counseled Patient/Family Regarding: Studies Performed, Diagnosis, Need For Followup - Disposition Disposition: HOME/ ROUTINE Disposition Time: 01:21 Condition: FAIR - Clinical Impression Clinical Impression: Alcohol intoxication - Scribe Statement The provider has reviewed the documentation as recorded by the Scribe (Kari Fajardo) Provider Attestation: All medical record entries made by the Scribe were at my direction and personally dictated by me. I have reviewed the chart and agree that the record accurately reflects my personal performance of the history, physical exam, medical decision making, and the department course for this patient. I have also personally directed, reviewed, and agree with the discharge instructions and disposition.
[2017-06-01 01:24] VITALS: BMI 28.9
[2017-06-01 01:26] VITALS: BP 156/97; PULSE 74; RESP 20; TEMP 97.3; O2SAT 100
== END 2017-06-02 05:00 | disposition home or self-care (01) ==
LOC: C.ER 01:12 → C.9OBSV 01:24
PROVIDERS: ADMIT Emergency Medicine; ATTEND Emergency Medicine
DX: F10.129 Alcohol abuse with intoxication, unspecified (principal); Y90.9 Presence of alcohol in blood, level not specified; I25.10 Atherosclerotic heart disease of native coronary artery without angina pectoris

== ENCOUNTER 2017-06-02 02:56 | Observation (INO) | payer MEDICAID ==
--- NOTE | 2017-06-02 03:04 | C.PDOC ---
History Of Present Illness Patient presents to the ED seeking a place to stay and admits to drinking alcohol prior to arrival. Patient denies physical complaints, suicidal, or homicidal ideations at this time. Time Seen by Provider: 06/02/17 03:04 History Per: Patient History/Exam Limitations: no limitations Suicide/Self Injury Attempted (Context): None Modifying Factor(s): Alcohol Severity: None Pain Scale Rating Of: 0 Associated Symptoms: denies: Suicidal Thoughts, Suicidal Plan Involuntary Hold By: None Recent travel outside of the [place]: No Additional History Per: Prior Records Past Medical History Reviewed: Historical Data, Nursing Documentation, Vital Signs Vital Signs: Last Vital Signs Temp 98 F 06/02/17 03:44 Pulse 82 06/02/17 03:44 Resp 20 06/02/17 03:44 BP 129/76 06/02/17 03:44 Pulse Ox 97 06/02/17 03:44 - Medical History PMH: Anxiety, Arthritis, Bronchitis, CAD, Depression, 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 medical technical writer, not aware), Fractures (Rt. Fa.), Gastritis, Gall Bladder Disease (s/p cholecystectomy), HTN, Post Traumatic Stress Disorder, Rheumatoid Arthritis, Seizures, Chronic Pain Surgical History: Cholecystectomy - [facility] Procedures ALCOHOL DETOXIFICATION (07/04/15) APPLICATION OF SPLINT (03/20/13) CLOSURE SKIN & SUBCUTANEOUS NEC (08/14/13) DETOXIFICATION SERVICES FOR SUBSTANCE ABUSE TREATMENT (03/22/16) ESOPHAGOGASTRODUODENOSCOPY [EGD] W/CLOSED BIOPSY (02/16/15) OTHER GROUP THERAPY (03/12/13) PHYSICAL THERAPY NEC (07/04/15) TETANUS TOXOID ADMINIST (01/19/14) Family History: States: No Known Family Hx - Social History Hx Tobacco Use: No Hx Alcohol Use: Yes Hx Substance Use: No - Immunization History Hx Tetanus Toxoid Vaccination: Yes Hx Influenza Vaccination: Yes Hx Pneumococcal Vaccination: Yes Review Of Systems Constitutional: Negative for: Fever, Chills Cardiovascular: Negative for: Chest Pain Respiratory: Negative for: Shortness of Breath Gastrointestinal: Negative for: Nausea, Vomiting Psych: Negative for: Suicidal ideation Physical Exam - Physical Exam Appears: Non-toxic, No Acute Distress, Unkempt Skin: Warm, Dry Head: Atraumatic Eye(s): bilateral: Normal Inspection, EOMI Oral Mucosa: Moist Neck: Supple Chest: Symmetrical Cardiovascular: Rhythm Regular Respiratory: No Rales, No Rhonchi, No Wheezing Gastrointestinal/Abdominal: Soft, No Tenderness, No Distention, No Guarding, No Rebound Extremity: Normal ROM, No Tenderness Neurological/Psych: Oriented x3 ED OBSERVATION Date of observation admission: 06/02/17 Time of observation admission: 03:14 - Observation admission statement Patient is being placed in observation because:: patient is intoxicated. - Goals of Observation Goals of observation are:: sobriety. - Progress Note Progress Note: 06/02/17 03:29 vitals stable, Disposition Counseled Patient/Family Regarding: Studies Performed, Diagnosis - Disposition Disposition Time: 03:04 Condition: UNKNOWN - Clinical Impression Clinical Impression: Alcohol intoxication, Chronic alcoholism - Scribe Statement The provider has reviewed the documentation as recorded by the Scribjosé miguel Noel All medical record entries made by the Rominaibjosé miguel were at my direction and personally dictated by me. I have reviewed the chart and agree that the record accurately reflects my personal performance of the history, physical exam, medical decision making, and the department course for this patient. I have also personally directed, reviewed, and agree with the discharge instructions and disposition. Physician Patient Turnover Patient Signed Over To: Maine Romero Handoff Comments: pending sobriety and disposition
[2017-06-02 03:28] VITALS: BMI 28.8
[2017-06-02 06:59] VITALS: BP 128/76; PULSE 80; RESP 16; TEMP 97.9; O2SAT 99
== END 2017-06-02 06:59 | disposition home or self-care (01) ==
LOC: C.ER 02:56 → C.9OBSV 03:28
PROVIDERS: ADMIT Emergency Medicine; ATTEND Emergency Medicine
DX: F10.220 Alcohol dependence with intoxication, uncomplicated (principal); Y90.9 Presence of alcohol in blood, level not specified
CPT/HCPCS: 82948; G0378

== ENCOUNTER 2017-06-02 22:12 | Observation (INO) | payer MEDICAID ==
[2017-06-02 22:12] VITALS: BMI 28.8
[2017-06-02 22:23] VITALS: PULSE 79; RESP 16
--- NOTE | 2017-06-02 22:32 | C.PDOC ---
History Of Present Illness Patient presents to the ED for evaluation of acute alcohol intoxication for an unknown duration. Patient is familiar to the ED and has had multiple visits concerning alcohol intoxication. Patient admits to drinking earlier today. He denies any physical complaints at this time. Time Seen by Provider: 06/02/17 22:30 Chief Complaint (Nursing): Substance Abuse History Per: Patient History/Exam Limitations: intoxication Onset/Duration Of Symptoms: Unknown Current Symptoms Are (Timing): Still Present Suicide/Self Injury Attempted (Context): None Modifying Factor(s): Alcohol Severity: Mild Pain Scale Rating Of: 3 Associated Symptoms: denies: Suicidal Thoughts, Suicidal Plan Involuntary Hold By: None Recent travel outside of the [place]: No Additional History Per: Patient Past Medical History Reviewed: Historical Data, Nursing Documentation, Vital Signs Vital Signs: Last Vital Signs Temp 97.4 F L 06/03/17 03:16 Pulse 79 06/03/17 03:16 Resp 16 06/03/17 03:16 BP 134/78 06/03/17 03:16 Pulse Ox 99 06/03/17 03:16 - Medical History PMH: Anxiety, Arthritis, Bronchitis, CAD, Depression, 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 automatic typewriter inspector, not aware), Fractures (Rt. Fa.), Gastritis, Gall Bladder Disease (s/p cholecystectomy), HTN, Post Traumatic Stress Disorder, Rheumatoid Arthritis, Seizures, Chronic Pain Surgical History: Cholecystectomy - [facility] Procedures ALCOHOL DETOXIFICATION (07/04/15) APPLICATION OF SPLINT (03/20/13) CLOSURE SKIN & SUBCUTANEOUS NEC (08/14/13) DETOXIFICATION SERVICES FOR SUBSTANCE ABUSE TREATMENT (03/22/16) ESOPHAGOGASTRODUODENOSCOPY [EGD] W/CLOSED BIOPSY (02/16/15) OTHER GROUP THERAPY (03/12/13) PHYSICAL THERAPY NEC (07/04/15) TETANUS TOXOID ADMINIST (01/19/14) Family History: States: Unknown Family Hx - Social History Hx Tobacco Use: No Hx Alcohol Use: Yes Hx Substance Use: No - Immunization History Hx Tetanus Toxoid Vaccination: Yes Hx Influenza Vaccination: Yes Hx Pneumococcal Vaccination: Yes Review Of Systems Constitutional: Positive for: Other (+ETOH intoxicatoin ) Cardiovascular: Negative for: Chest Pain, Palpitations Respiratory: Negative for: Cough, Shortness of Breath Gastrointestinal: Negative for: Nausea, Vomiting, Abdominal Pain Skin: Negative for: Rash, Lesions, Jaundice, Bruising Neurological: Negative for: Weakness, Numbness Psych: Negative for: Suicidal ideation Physical Exam - Physical Exam Appears: No Acute Distress, Other (visibly intoxicated ) Skin: Warm, Dry Head: Normacephalic Eye(s): bilateral: Normal Inspection Oral Mucosa: Moist, Other (alcohol on breath ) Neck: Supple Chest: Symmetrical, No Deformity Cardiovascular: Rhythm Regular, No Murmur Respiratory: No Rales, No Rhonchi, No Wheezing Gastrointestinal/Abdominal: Soft, No Tenderness Extremity: Normal ROM, Capillary Refill (less than 2 seconds ) Neurological/Psych: Other (arousable to touch and verbal stimuli ) Gait: Unsteady ED Course And Treatment O2 Sat by Pulse Oximetry: 96 (on RA) Pulse Ox Interpretation: Normal Progress Note: Patient placed in ED OBS for acute alcohol intoxication and is pending sobriety. Reevaluation Time: 05:01 Reassessment Condition: Improved ED OBSERVATION Date of observation admission: 06/02/17 Time of observation admission: 22:31 - Observation admission statement Patient is being placed in observation because:: acute alcohol intoxication - Goals of Observation Goals of observation are:: sobriety - Progress Note Progress Note: 06/02/17 22:32 vitals stable 06/03/17 02:36 arousable Disposition Counseled Patient/Family Regarding: Studies Performed, Diagnosis - Disposition Disposition: HOME/ ROUTINE Disposition Time: 05:01 Condition: FAIR - Clinical Impression Clinical Impression: Acute alcohol intoxication, Chronic alcoholism - Scribe Statement The provider has reviewed the documentation as recorded by the Scribe (Kari Fajardo) Provider Attestation: All medical record entries made by the Rominaibe were at my direction and personally dictated by me. I have reviewed the chart and agree that the record accurately reflects my personal performance of the history, physical exam, medical decision making, and the department course for this patient. I have also personally directed, reviewed, and agree with the discharge instructions and disposition.
[2017-06-03 03:19] VITALS: TEMP 97.4
[2017-06-03 05:16] VITALS: BP 128/81; O2SAT 97
== END 2017-06-03 05:48 | disposition home or self-care (01) ==
LOC: C.ER 22:12 → C.9OBSV 22:32
PROVIDERS: ADMIT Emergency Medicine; ATTEND Emergency Medicine
DX: F10.129 Alcohol abuse with intoxication, unspecified (principal); Y90.9 Presence of alcohol in blood, level not specified
CPT/HCPCS: 82948; G0378

== ENCOUNTER 2017-06-03 22:25 | Emergency (ER) | payer MEDICAID ==
[2017-06-03 22:26] VITALS: BMI 28.8
[2017-06-03 23:03] VITALS: RESP 16; O2SAT 97
--- NOTE | 2017-06-04 03:08 | C.PDOC ---
History Of Present Illness 56 year old male who presents to the ER with acute ETOH intoxication. Denies physical complaints at this time. Chief Complaint (Nursing): Substance Abuse History Per: Patient History/Exam Limitations: no limitations Onset/Duration Of Symptoms: Hrs Current Symptoms Are (Timing): Still Present Suicide/Self Injury Attempted (Context): None Modifying Factor(s): Alcohol Associated Symptoms: denies: Depression, Suicidal Thoughts, Suicidal Plan Involuntary Hold By: None Recent travel outside of the [place]: No Past Medical History Reviewed: Historical Data, Nursing Documentation, Vital Signs Vital Signs: Last Vital Signs Temp 97.8 F 06/04/17 03:00 Pulse 78 06/04/17 03:00 Resp 16 06/04/17 03:00 BP 117/70 06/04/17 03:00 Pulse Ox 97 06/04/17 03:13 - Medical History PMH: Anxiety, Arthritis, Bronchitis, CAD, Depression, 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), Fractures (Rt. Fa.), Gastritis, Gall Bladder Disease (s/p cholecystectomy), HTN, Post Traumatic Stress Disorder, Rheumatoid Arthritis, Seizures, Chronic Pain Surgical History: Cholecystectomy - [facility] Procedures ALCOHOL DETOXIFICATION (07/04/15) APPLICATION OF SPLINT (03/20/13) CLOSURE SKIN & SUBCUTANEOUS NEC (08/14/13) DETOXIFICATION SERVICES FOR SUBSTANCE ABUSE TREATMENT (03/22/16) ESOPHAGOGASTRODUODENOSCOPY [EGD] W/CLOSED BIOPSY (02/16/15) OTHER GROUP THERAPY (03/12/13) PHYSICAL THERAPY NEC (07/04/15) TETANUS TOXOID ADMINIST (01/19/14) Family History: States: Unknown Family Hx - Social History Hx Tobacco Use: No Hx Alcohol Use: Yes Hx Substance Use: No - Immunization History Hx Tetanus Toxoid Vaccination: Yes Hx Influenza Vaccination: Yes Hx Pneumococcal Vaccination: Yes Review Of Systems Constitutional: Negative for: Fever, Chills Gastrointestinal: Negative for: Nausea, Vomiting, Diarrhea Physical Exam - Physical Exam Appears: Non-toxic, No Acute Distress, Other (ETOH on breath) Skin: Normal Color, Warm, Dry Head: Atraumatic, Normacephalic Oral Mucosa: Moist Chest: Symmetrical, No Tenderness Cardiovascular: Rhythm Regular, No Murmur Respiratory: Normal Breath Sounds, No Rales, No Rhonchi, No Wheezing Gastrointestinal/Abdominal: Soft, No Tenderness Neurological/Psych: Oriented x3, Normal Speech, Normal Cognition ED Course And Treatment O2 Sat by Pulse Oximetry: 97 (Room air) Pulse Ox Interpretation: Normal ED OBSERVATION Date of observation admission: 06/03/17 Time of observation admission: 21:00 - Observation admission statement Patient is being placed in observation because:: Acute ETOH intoxication - Goals of Observation Goals of observation are:: Sobriety Disposition Counseled Patient/Family Regarding: Diagnosis - Disposition Referrals: [facility] [Outside] Disposition: HOME/ ROUTINE Disposition Time: 05:32 Condition: STABLE Instructions: Alcohol Intoxication (GEN) Forms: [employer] (Latvian) - POA Present On Arrival: None - Clinical Impression Clinical Impression: Alcohol intoxication - Scribe Statement The provider has reviewed the documentation as recorded by the Scribe Fabián Ramirez All medical record entries made by the Scribe were at my direction and personally dictated by me. I have reviewed the chart and agree that the record accurately reflects my personal performance of the history, physical exam, medical decision making, and the department course for this patient. I have also personally directed, reviewed, and agree with the discharge instructions and disposition.
[2017-06-04 03:38] VITALS: BP 117/70; PULSE 78; TEMP 97.8
== END 2017-06-04 05:38 | disposition home or self-care (01) ==
LOC: C.ER 22:25
DX: F10.129 Alcohol abuse with intoxication, unspecified (principal); Y90.9 Presence of alcohol in blood, level not specified

== ENCOUNTER 2017-06-04 20:35 | Emergency (ER) | payer MEDICAID ==
[2017-06-04 20:36] VITALS: BMI 28.8
[2017-06-04] MEDS ORDERED: Sodium Chloride 0.9% 1,000 ML IV ONE (21:20)
--- NOTE | 2017-06-04 21:23 | C.PDOC ---
History Of Present Illness 56 y/o male brought to ED by EMS for evaluation of alcohol intoxication while walking on street with unsteady gait. 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 He denies chest pain, SOB, fever, dysuria. Time Seen by Provider: 06/04/17 21:05 Chief Complaint (Nursing): Substance Abuse History Per: Patient, EMS History/Exam Limitations: intoxication Onset/Duration Of Symptoms: Hrs Current Symptoms Are (Timing): Better Suicide/Self Injury Attempted (Context): None Modifying Factor(s): Alcohol Severity: Moderate Past Medical History Reviewed: Historical Data, Nursing Documentation, Vital Signs Vital Signs: Last Vital Signs Temp 98.2 F 06/04/17 20:39 Pulse 81 06/04/17 20:39 Resp 20 06/04/17 20:39 BP 148/98 H 06/04/17 20:39 Pulse Ox 96 06/04/17 21:24 - Medical History PMH: Anxiety, Arthritis, Bronchitis, CAD, Depression, 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 marketing copywriter, not aware), Fractures (Rt. Fa.), Gastritis, Gall Bladder Disease (s/p cholecystectomy), HTN, Post Traumatic Stress Disorder, Rheumatoid Arthritis, Seizures, Chronic Pain Surgical History: Cholecystectomy - [facility] Procedures ALCOHOL DETOXIFICATION (07/04/15) APPLICATION OF SPLINT (03/20/13) CLOSURE SKIN & SUBCUTANEOUS NEC (08/14/13) DETOXIFICATION SERVICES FOR SUBSTANCE ABUSE TREATMENT (03/22/16) ESOPHAGOGASTRODUODENOSCOPY [EGD] W/CLOSED BIOPSY (02/16/15) OTHER GROUP THERAPY (03/12/13) PHYSICAL THERAPY NEC (07/04/15) TETANUS TOXOID ADMINIST (01/19/14) Family History: States: No Known Family Hx - Social History Hx Tobacco Use: No Hx Alcohol Use: Yes Hx Substance Use: No - Immunization History Hx Tetanus Toxoid Vaccination: Yes Hx Influenza Vaccination: Yes Hx Pneumococcal Vaccination: Yes Review Of Systems Except As Marked, All Systems Reviewed And Found Negative. Constitutional: Negative for: Fever, Chills Cardiovascular: Negative for: Chest Pain, Palpitations Respiratory: Negative for: Cough, Shortness of Breath Gastrointestinal: Positive for: Nausea, Vomiting, Abdominal Pain. Negative for : Diarrhea, Constipation Genitourinary: Negative for: Dysuria Skin: Negative for: Rash Physical Exam - Physical Exam Appears: Well, Non-toxic, Unkempt, Other (ETOH on breath, Intoxicated, Malodorous) Skin: Normal Color, Warm, Dry, No Rash Head: Atraumatic, Normacephalic Eye(s): bilateral: Normal Inspection Oral Mucosa: Moist Cardiovascular: Rhythm Regular Respiratory: Normal Breath Sounds, No Rales, No Rhonchi, No Wheezing Gastrointestinal/Abdominal: Bowel Sounds, Soft, Tenderness (mild epigastric TTP) , Distention (Mild), No Guarding, No Rebound, Other ((-) Montero's, (-) McBurney' s) Back: No CVA Tenderness Extremity: Normal ROM Extremity: Bilateral: Atraumatic Neurological/Psych: Other (awake, alert, intoxicated) ED Course And Treatment - Laboratory Results Result Diagrams: 06/04/17 21:54 06/04/17 21:54 O2 Sat by Pulse Oximetry: 96 (RA) Pulse Ox Interpretation: Normal Progress Note: Blood work ordered and reviewed. Patient given IV NS bolus, IV Zofran, IV protonic, and IV banana bag. On reassessment, patient sleeping comfortably, easily arousable, states his abdominal pain has improved. Medical Decision Making Medical Decision Making: Plan: * Blood work * IV fluids * Protonic * Zofran Disposition - Disposition Referrals: Non [facility] Provider, [Primary Care Provider] - Disposition Time: 01:00 Condition: STABLE Forms: [facility] (Turkish) - Clinical Impression Clinical Impression: Alcohol intoxication, Abdominal pain - PA / PARTY PLAN SALES CONSULTANT / Resident Statement MD/DO has examined the patient and agrees with the treatment plan. - Scribe Statement The provider has reviewed the documentation as recorded by the Rominaibjosé miguel Contreras All medical record entries made by the Rominaibjosé miguel were at my direction and personally dictated by me. I have reviewed the chart and agree that the record accurately reflects my personal performance of the history, physical exam, medical decision making, and the department course for this patient. I have also personally directed, reviewed, and agree with the discharge instructions and disposition. Physician Patient Turnover Patient Signed Over To: Andrey Craig Handoff Comments: pending reassessment, disposition
[2017-06-04] MEDS ORDERED: Sodium Chloride 0.9% 1,000 ML ONE (21:50)
[2017-06-04 22:01] LABS: EOS # 0.1 K/uL (0.0-0.7); HEMATOCRIT 33.7 % (35.0-51.0); LYMPH # 1.3 K/uL (1.0-4.3); MEAN CELL VOLUME 106.1 fL (80.0-94.0); MEAN CORPUSCULAR HEMOGLOBIN 35.9 pg (27.0-31.0); MEAN CORPUSCULAR HGB CONC 33.8 g/dL (33.0-37.0); MEAN PLATELET VOLUME 8.3 fL (7.2-11.7); MONO # 0.7 K/uL (0.0-0.8); MONO % 17.6 % (0.0-10.0); NRBC % 0.2 % (0.0-2.0); WHITE BLOOD COUNT 4.1 K/uL (4.8-10.8)
[2017-06-04 22:11] LABS: CHLORIDE 101 mmol/L (98-107); SODIUM 145 mmol/L (132-148)
[2017-06-04 22:12] LABS: POTASSIUM 3.7 mmol/L (3.6-5.2)
[2017-06-04 22:14] LABS: ALB/GLOB RATIO 0.8 (1.0-2.1); ALKALINE PHOSPHATASE 107 U/L (38-126); ALT/SGPT 49 U/L (21-72); AST/SGOT 265 U/L (17-59); BLOOD UREA NITROGEN 8 mg/dL (9-20); CALCIUM 8.9 mg/dl (8.6-10.4); CARBON DIOXIDE 28 mmol/L (22-30); GFR AFRICAN-AMERICAN > 60; GLUCOSE,RANDOM 100 mg/dL (75-110); TOTAL PROTEIN 8.5 g/dL (6.3-8.3)
[2017-06-04] MEDS ORDERED: Multivitamin (MVI) 10 ML, Thiamine 100 MG, Folic Acid 1 MG in Sodium Chloride 0.9% 1,00... IVPB ONE (23:34)
[2017-06-05 02:15] VITALS: RESP 18
[2017-06-05 05:23] VITALS: BP 120/79; PULSE 82; TEMP 98.3; O2SAT 99
== END 2017-06-05 05:25 | disposition home or self-care (01) ==
LOC: C.ER 20:35 → SUPCPDRO 20:35 → C.ER 06-05 05:25
DX: F10.120 Alcohol abuse with intoxication, uncomplicated (principal); Y90.9 Presence of alcohol in blood, level not specified; R10.13 Epigastric pain
CPT/HCPCS: 80053; 83690; 85025; 96361; 96365; 96366; 96375; 99285; C9113; J2405; J3411; J7040

== ENCOUNTER 2017-06-05 20:52 | Observation (INO) | payer MEDICAID ==
[2017-06-05 20:53] VITALS: BMI 28.8
--- NOTE | 2017-06-05 21:30 | C.PDOC ---
History Of Present Illness 56 y/o male here because of acute alcohol intoxication. Patient has numerous prior visits in the ER for the same condition. Denies any somatic complaints. Time Seen by Provider: 06/05/17 21:29 Chief Complaint (Nursing): Substance Abuse History Per: Patient History/Exam Limitations: no limitations Onset/Duration Of Symptoms: Hrs Current Symptoms Are (Timing): Still Present Suicide/Self Injury Attempted (Context): None Modifying Factor(s): Alcohol Severity: Mild Associated Symptoms: denies: Suicidal Thoughts, Suicidal Plan Involuntary Hold By: None Recent travel outside of the [place]: No Additional History Per: Patient Past Medical History Reviewed: Historical Data, Nursing Documentation, Vital Signs Vital Signs: Last Vital Signs Temp 97.9 F 06/06/17 03:08 Pulse 77 06/06/17 03:08 Resp 18 06/06/17 03:08 BP 128/81 06/06/17 03:08 Pulse Ox 98 06/06/17 03:08 - Medical History PMH: Anxiety, Arthritis, Bronchitis, CAD, Depression, 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 service writer advisor, not aware), Fractures (Rt. Fa.), Gastritis, Gall Bladder Disease (s/p cholecystectomy), HTN, Post Traumatic Stress Disorder, Rheumatoid Arthritis, Seizures, Chronic Pain Denies: Chronic Kidney Disease Surgical History: Cholecystectomy - [facility] Procedures ALCOHOL DETOXIFICATION (07/04/15) APPLICATION OF SPLINT (03/20/13) CLOSURE SKIN & SUBCUTANEOUS NEC (08/14/13) DETOXIFICATION SERVICES FOR SUBSTANCE ABUSE TREATMENT (03/22/16) ESOPHAGOGASTRODUODENOSCOPY [EGD] W/CLOSED BIOPSY (02/16/15) OTHER GROUP THERAPY (03/12/13) PHYSICAL THERAPY NEC (07/04/15) TETANUS TOXOID ADMINIST (01/19/14) Family History: States: Unknown Family Hx - Social History Hx Tobacco Use: No Hx Alcohol Use: Yes Hx Substance Use: No - Immunization History Hx Tetanus Toxoid Vaccination: Yes Hx Influenza Vaccination: No Hx Pneumococcal Vaccination: No Review Of Systems Constitutional: Positive for: Other (Alcohol intoxicated. NO trauma). Negative for: Fever, Chills ENT: Negative for: Ear Pain, Throat Pain Cardiovascular: Negative for: Chest Pain, Palpitations Respiratory: Negative for: Cough, Shortness of Breath Gastrointestinal: Negative for: Nausea, Vomiting, Abdominal Pain, Diarrhea Genitourinary: Negative for: Dysuria Musculoskeletal: Negative for: Leg Pain, Foot Pain Skin: Negative for: Rash, Lesions Neurological: Negative for: Headache Psych: Negative for: Anxiety Physical Exam - Physical Exam Appears: Non-toxic, No Acute Distress, Other (Acute alcohol intoxicated, (+)AOB) Skin: Warm, Dry Head: Normacephalic Oral Mucosa: Moist Neck: Supple Cardiovascular: Rhythm Regular Respiratory: No Rales, No Rhonchi, No Wheezing Gastrointestinal/Abdominal: Soft, No Tenderness Back: No CVA Tenderness Extremity: Normal ROM Extremity: Bilateral: Normal ROM Neurological/Psych: Oriented x3, Other (No focal deficit) Gait: Unsteady ED Course And Treatment O2 Sat by Pulse Oximetry: 98 (RA) Pulse Ox Interpretation: Normal Reevaluation Time: 05:03 Reassessment Condition: Improved ED OBSERVATION Discharge: Yes Date of observation admission: 06/05/17 Time of observation admission: 21:00 - Observation admission statement Patient is being placed in observation because:: acute alcohol intoxication - Goals of Observation Goals of observation are:: sobriety - Progress Note Progress Note: 06/05/17 21:00 vitals stable 06/06/17 02:49 no complaints 06/06/17 05:03 ambulating to the bathroom unassisted Disposition Counseled Patient/Family Regarding: Studies Performed, Diagnosis, Need For Followup - Disposition Disposition Time: 21:30 Condition: FAIR - Clinical Impression Clinical Impression: Chronic alcoholism, Alcohol abuse with intoxication - Scribe Statement The provider has reviewed the documentation as recorded by the Rominaibjosé miguel morillo All medical record entries made by the Jada were at my direction and personally dictated by me. I have reviewed the chart and agree that the record accurately reflects my personal performance of the history, physical exam, medical decision making, and the department course for this patient. I have also personally directed, reviewed, and agree with the discharge instructions and disposition.
[2017-06-05 23:48] VITALS: RESP 18
[2017-06-06 02:49] VITALS: O2SAT 98
[2017-06-06 03:11] VITALS: BP 128/81; PULSE 77; TEMP 97.9
== END 2017-06-06 05:03 | disposition home or self-care (01) ==
LOC: C.ER 20:52 → C.9OBSV 21:31
PROVIDERS: ADMIT Emergency Medicine; ATTEND Emergency Medicine
DX: F10.229 Alcohol dependence with intoxication, unspecified (principal); Y90.9 Presence of alcohol in blood, level not specified
CPT/HCPCS: 82948; G0378

== ENCOUNTER 2017-06-07 20:27 | Observation (INO) | payer MEDICAID ==
[2017-06-07 20:28] VITALS: BMI 28.8
--- NOTE | 2017-06-07 21:50 | C.PDOC ---
History Of Present Illness 56 year old male who presents to the ER with acute ETOH intoxication. Denies physical complaints at this time. Chief Complaint (Nursing): Substance Abuse History Per: Patient History/Exam Limitations: no limitations Onset/Duration Of Symptoms: Hrs Current Symptoms Are (Timing): Still Present Suicide/Self Injury Attempted (Context): None Modifying Factor(s): Alcohol Associated Symptoms: denies: Depression, Suicidal Thoughts, Suicidal Plan Involuntary Hold By: None Recent travel outside of the [place]: No Past Medical History Reviewed: Historical Data, Nursing Documentation, Vital Signs Vital Signs: Last Vital Signs Temp 97.6 F 06/08/17 02:54 Pulse 69 06/08/17 02:54 Resp 20 06/08/17 02:54 BP 154/72 H 06/08/17 02:54 Pulse Ox 97 06/08/17 02:54 - Medical History PMH: Anxiety, Arthritis, Bronchitis, CAD, Depression, 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 abstract writer, not aware), Fractures (Rt. Fa.), Gastritis, Gall Bladder Disease (s/p cholecystectomy), HTN, Post Traumatic Stress Disorder, Rheumatoid Arthritis, Seizures, Chronic Pain Surgical History: Cholecystectomy - [facility] Procedures ALCOHOL DETOXIFICATION (07/04/15) APPLICATION OF SPLINT (03/20/13) CLOSURE SKIN & SUBCUTANEOUS NEC (08/14/13) DETOXIFICATION SERVICES FOR SUBSTANCE ABUSE TREATMENT (03/22/16) ESOPHAGOGASTRODUODENOSCOPY [EGD] W/CLOSED BIOPSY (02/16/15) OTHER GROUP THERAPY (03/12/13) PHYSICAL THERAPY NEC (07/04/15) TETANUS TOXOID ADMINIST (01/19/14) Family History: States: Unknown Family Hx - Social History Hx Tobacco Use: No Hx Alcohol Use: Yes Hx Substance Use: No - Immunization History Hx Tetanus Toxoid Vaccination: Yes Hx Influenza Vaccination: No Hx Pneumococcal Vaccination: No Review Of Systems Constitutional: Negative for: Fever, Chills Gastrointestinal: Negative for: Nausea, Vomiting, Diarrhea Physical Exam - Physical Exam Appears: Non-toxic, Other (ETOH on breath) Skin: Normal Color, Warm, Dry Head: Atraumatic, Normacephalic Oral Mucosa: Moist Chest: Symmetrical, No Tenderness Cardiovascular: Rhythm Regular, No Murmur Respiratory: Normal Breath Sounds, No Rales, No Rhonchi, No Wheezing Gastrointestinal/Abdominal: Soft, No Tenderness Neurological/Psych: Oriented x3, Normal Speech, Normal Cognition Disposition Counseled Patient/Family Regarding: Diagnosis - Disposition Disposition: HOME/ ROUTINE Disposition Time: 05:11 Condition: STABLE - POA Present On Arrival: None - Clinical Impression Clinical Impression: Alcohol abuse with intoxication - Scribe Statement The provider has reviewed the documentation as recorded by the Scribe Fabián Ramirez All medical record entries made by the Rominaibe were at my direction and personally dictated by me. I have reviewed the chart and agree that the record accurately reflects my personal performance of the history, physical exam, medical decision making, and the department course for this patient. I have also personally directed, reviewed, and agree with the discharge instructions and disposition.
[2017-06-08 02:55] VITALS: RESP 20
[2017-06-08 05:16] VITALS: BP 149/70; PULSE 82; TEMP 97.5; O2SAT 98
== END 2017-06-08 05:10 | disposition home or self-care (01) ==
LOC: C.ER 20:27 → C.9OBSV 21:48
PROVIDERS: ADMIT Emergency Medicine; ATTEND Emergency Medicine
DX: F10.129 Alcohol abuse with intoxication, unspecified (principal); Y90.9 Presence of alcohol in blood, level not specified
CPT/HCPCS: 82948; 99284; G0378

== ENCOUNTER 2017-06-08 23:49 | Observation (INO) | payer MEDICAID ==
[2017-06-08 23:50] VITALS: BMI 28.8
--- NOTE | 2017-06-09 00:48 | C.PDOC ---
History Of Present Illness 56 year old male presents to the ER with acute ETOH intoxication. He denies physical complaints at this time. Time Seen by Provider: 06/09/17 00:12 Chief Complaint (Nursing): Substance Abuse History Per: Patient History/Exam Limitations: no limitations Onset/Duration Of Symptoms: Hrs Current Symptoms Are (Timing): Still Present Suicide/Self Injury Attempted (Context): None Modifying Factor(s): Alcohol Severity: Moderate Associated Symptoms: denies: Depression, Suicidal Thoughts, Suicidal Plan Involuntary Hold By: Emergency Physician Past Medical History Reviewed: Historical Data, Nursing Documentation, Vital Signs Vital Signs: Last Vital Signs Temp 98.4 F 06/09/17 05:39 Pulse 85 06/09/17 05:39 Resp 20 06/09/17 05:39 BP 150/87 06/09/17 05:39 Pulse Ox 95 06/09/17 05:48 - Medical History PMH: Anxiety, Arthritis, Bronchitis, CAD, Depression, 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 service writer advisor, not aware), Fractures (Rt. Fa.), Gastritis, Gall Bladder Disease (s/p cholecystectomy), HTN, Post Traumatic Stress Disorder, Rheumatoid Arthritis, Seizures, Chronic Pain Surgical History: Cholecystectomy - [facility] Procedures ALCOHOL DETOXIFICATION (07/04/15) APPLICATION OF SPLINT (03/20/13) CLOSURE SKIN & SUBCUTANEOUS NEC (08/14/13) DETOXIFICATION SERVICES FOR SUBSTANCE ABUSE TREATMENT (03/22/16) ESOPHAGOGASTRODUODENOSCOPY [EGD] W/CLOSED BIOPSY (02/16/15) OTHER GROUP THERAPY (03/12/13) PHYSICAL THERAPY NEC (07/04/15) TETANUS TOXOID ADMINIST (01/19/14) Family History: States: No Known Family Hx - Social History Hx Tobacco Use: No Hx Alcohol Use: Yes Hx Substance Use: No - Immunization History Hx Tetanus Toxoid Vaccination: Yes Hx Influenza Vaccination: No Hx Pneumococcal Vaccination: No Review Of Systems Except As Marked, All Systems Reviewed And Found Negative. Constitutional: Positive for: Other (alcohol intoxication) Cardiovascular: Negative for: Chest Pain Respiratory: Negative for: Shortness of Breath Gastrointestinal: Negative for: Vomiting Physical Exam - Physical Exam Appears: Non-toxic, No Acute Distress, Unkempt, Other (ETOH on breath) Skin: Normal Color, Warm, Dry Head: Atraumatic, Normacephalic Oral Mucosa: Moist Neck: Normal, Normal ROM, Supple Cardiovascular: Rhythm Regular Respiratory: Normal Breath Sounds, No Rales, No Rhonchi, No Wheezing Gastrointestinal/Abdominal: Normal Exam, Bowel Sounds, Soft, No Tenderness Extremity: Normal ROM, No Pedal Edema, No Deformity Extremity: Bilateral: Atraumatic, Normal ROM Neurological/Psych: Other (awake, alert, intoxicated ) ED Course And Treatment O2 Sat by Pulse Oximetry: 95 (Room air) Pulse Ox Interpretation: Normal Progress Note: Accucheck ordered and reviewed. Patient placed in ED observation pending sobriety. 2:50am - Patient reassessed, is sleeping comfortably, arousable to verbal stimuli. Reevaluation Time: 06:10 Reassessment Condition: Improved (Patient currently AAOx3, ambulating normally in the ED. Patient clinically sober at this time, will discharge.) Disposition Counseled Patient/Family Regarding: Diagnosis, Need For Followup - Disposition Disposition: HOME/ ROUTINE Disposition Time: 06:00 Condition: STABLE - POA Present On Arrival: None - Clinical Impression Clinical Impression: Acute alcohol intoxication - Scribe Statement The provider has reviewed the documentation as recorded by the Scribjosé miguel Ramirez All medical record entries made by the Rominaibjosé miguel were at my direction and personally dictated by me. I have reviewed the chart and agree that the record accurately reflects my personal performance of the history, physical exam, medical decision making, and the department course for this patient. I have also personally directed, reviewed, and agree with the discharge instructions and disposition.
[2017-06-09 05:40] VITALS: BP 150/87; PULSE 85; RESP 20; TEMP 98.4
[2017-06-09 05:48] VITALS: O2SAT 95
== END 2017-06-09 05:48 | disposition home or self-care (01) ==
LOC: C.ER 23:49 → C.9OBSV 06-09 00:19
PROVIDERS: ADMIT Emergency Medicine; ATTEND Emergency Medicine
DX: F10.129 Alcohol abuse with intoxication, unspecified (principal); E11.9 Type 2 diabetes mellitus without complications; I25.10 Atherosclerotic heart disease of native coronary artery without angina pectoris
CPT/HCPCS: 82948; 99283; G0378

== ENCOUNTER 2017-06-09 21:45 | Observation (INO) | payer MEDICAID ==
[2017-06-09 21:45] VITALS: BMI 28.8
[2017-06-09 22:29] VITALS: O2SAT 97
--- NOTE | 2017-06-09 23:15 | C.PDOC ---
History Of Present Illness 56 year old male presents to the ED looking for a place to sleep, admits to drinking alcohol today. Patient denies phyiscal complaints at this time. Time Seen by Provider: 06/09/17 22:18 Chief Complaint (Nursing): Substance Abuse History Per: Patient History/Exam Limitations: intoxication Modifying Factor(s): Alcohol Severity: Moderate Associated Symptoms: denies: Suicidal Thoughts, Suicidal Plan Involuntary Hold By: Emergency Physician Additional History Per: Prior Records Past Medical History Reviewed: Historical Data, Nursing Documentation, Vital Signs Vital Signs: Last Vital Signs Temp 97.9 F 06/10/17 06:20 Pulse 78 06/10/17 06:20 Resp 16 06/10/17 06:20 BP 130/78 06/10/17 06:20 Pulse Ox 97 06/10/17 06:20 - Medical History PMH: Anxiety, Arthritis, Bronchitis, CAD, Depression, 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 financial writer, not aware), Fractures (Rt. Fa.), Gastritis, Gall Bladder Disease (s/p cholecystectomy), HTN, Post Traumatic Stress Disorder, Rheumatoid Arthritis, Seizures, Chronic Pain Surgical History: Cholecystectomy - [facility] Procedures ALCOHOL DETOXIFICATION (07/04/15) APPLICATION OF SPLINT (03/20/13) CLOSURE SKIN & SUBCUTANEOUS NEC (08/14/13) DETOXIFICATION SERVICES FOR SUBSTANCE ABUSE TREATMENT (03/22/16) ESOPHAGOGASTRODUODENOSCOPY [EGD] W/CLOSED BIOPSY (02/16/15) OTHER GROUP THERAPY (03/12/13) PHYSICAL THERAPY NEC (07/04/15) TETANUS TOXOID ADMINIST (01/19/14) Family History: States: No Known Family Hx - Social History Hx Tobacco Use: No Hx Alcohol Use: Yes Hx Substance Use: No - Immunization History Hx Tetanus Toxoid Vaccination: Yes Hx Influenza Vaccination: No Hx Pneumococcal Vaccination: No Review Of Systems Except As Marked, All Systems Reviewed And Found Negative. Constitutional: Negative for: Fever Cardiovascular: Negative for: Chest Pain, Palpitations Respiratory: Negative for: Cough, Shortness of Breath Gastrointestinal: Negative for: Nausea, Vomiting, Abdominal Pain, Diarrhea Neurological: Negative for: Headache Psych: Negative for: Suicidal ideation Physical Exam - Physical Exam Appears: Well, Non-toxic, No Acute Distress Skin: Warm, Dry Head: Atraumatic, Normacephalic Eye(s): bilateral: Normal Inspection Oral Mucosa: Moist Neck: Supple Cardiovascular: Rhythm Regular Respiratory: Normal Breath Sounds, No Rhonchi, No Wheezing Gastrointestinal/Abdominal: Normal Exam, Bowel Sounds, Soft, No Tenderness Extremity: Normal ROM, No Tenderness Neurological/Psych: Other (awake, alert, intoxicated, moving all 4 extremities spontaneously ) ED Course And Treatment O2 Sat by Pulse Oximetry: 97 (room air ) Pulse Ox Interpretation: Normal Progress Note: Accucheck ordered and reviewed. Patient placed in ED observation , pending sobriety. 2:10am- Patient sleeping on stretcher comfortably, arousable to verbal stimuli. Pending sobriety. Reevaluation Time: 06:00 Reassessment Condition: Improved (Patient currently AAOx3, ambulating normally in the ED. He is clinically sober at this time, will discharge.) ED OBSERVATION Date of observation admission: 06/09/17 Time of observation admission: 22:20 - Observation admission statement Patient is being placed in observation because:: patient is intoxicated. - Goals of Observation Goals of observation are:: sobriety. Disposition Counseled Patient/Family Regarding: Diagnosis, Need For Followup - Disposition Disposition: HOME/ ROUTINE Disposition Time: 06:05 Condition: STABLE - Clinical Impression Clinical Impression: Alcohol intoxication - Scribe Statement The provider has reviewed the documentation as recorded by the Scribjosé miguel Noel All medical record entries made by the Rominaibjosé miguel were at my direction and personally dictated by me. I have reviewed the chart and agree that the record accurately reflects my personal performance of the history, physical exam, medical decision making, and the department course for this patient. I have also personally directed, reviewed, and agree with the discharge instructions and disposition.
[2017-06-10 06:21] VITALS: BP 130/78; PULSE 78; RESP 16; TEMP 97.9
== END 2017-06-10 05:53 | disposition home or self-care (01) ==
LOC: C.ER 21:45 → C.9OBSV 22:40
PROVIDERS: ADMIT Emergency Medicine; ATTEND Emergency Medicine
DX: F10.129 Alcohol abuse with intoxication, unspecified (principal); Y90.9 Presence of alcohol in blood, level not specified
CPT/HCPCS: 82948; 99284; G0378

== ENCOUNTER 2017-06-10 22:26 | Emergency (ER) | payer MEDICAID ==
[2017-06-10 22:26] VITALS: BMI 28.8
[2017-06-10 23:37] VITALS: BP 121/79; PULSE 85; RESP 18; TEMP 97.5; O2SAT 95
--- NOTE | 2017-06-11 00:34 | C.PDOC ---
History Of Present Illness 56 year old male who presents to the ER with acute ETOH intoxication. Denies physical complaints at this time. Chief Complaint (Nursing): Substance Abuse History Per: Patient History/Exam Limitations: no limitations Onset/Duration Of Symptoms: Hrs Current Symptoms Are (Timing): Still Present Suicide/Self Injury Attempted (Context): None Modifying Factor(s): Alcohol Associated Symptoms: denies: Depression, Suicidal Thoughts, Suicidal Plan Involuntary Hold By: None Recent travel outside of the [place]: No Past Medical History Reviewed: Historical Data, Nursing Documentation, Vital Signs Vital Signs: Last Vital Signs Temp 97.5 F L 06/10/17 23:37 Pulse 85 06/10/17 23:37 Resp 18 06/10/17 23:37 BP 121/79 06/10/17 23:37 Pulse Ox 95 06/11/17 05:46 - Medical History PMH: Anxiety, Arthritis, Bronchitis, CAD, Depression, 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 writer producer, not aware), Fractures (Rt. Fa.), Gastritis, Gall Bladder Disease (s/p cholecystectomy), HTN, Post Traumatic Stress Disorder, Rheumatoid Arthritis, Seizures, Chronic Pain Surgical History: Cholecystectomy - [facility] Procedures ALCOHOL DETOXIFICATION (07/04/15) APPLICATION OF SPLINT (03/20/13) CLOSURE SKIN & SUBCUTANEOUS NEC (08/14/13) DETOXIFICATION SERVICES FOR SUBSTANCE ABUSE TREATMENT (03/22/16) ESOPHAGOGASTRODUODENOSCOPY [EGD] W/CLOSED BIOPSY (02/16/15) OTHER GROUP THERAPY (03/12/13) PHYSICAL THERAPY NEC (07/04/15) TETANUS TOXOID ADMINIST (01/19/14) Family History: States: Unknown Family Hx - Social History Hx Tobacco Use: No Hx Alcohol Use: Yes Hx Substance Use: No - Immunization History Hx Tetanus Toxoid Vaccination: Yes Hx Influenza Vaccination: No Hx Pneumococcal Vaccination: No Review Of Systems Constitutional: Negative for: Fever, Chills Gastrointestinal: Negative for: Nausea, Vomiting, Abdominal Pain, Diarrhea Neurological: Negative for: Weakness, Numbness Physical Exam - Physical Exam Appears: Non-toxic, No Acute Distress, Other (ETOH on breath) Skin: Normal Color, Warm, Dry Head: Atraumatic, Normacephalic Oral Mucosa: Moist Chest: Symmetrical, No Tenderness Cardiovascular: Rhythm Regular, No Murmur Respiratory: Normal Breath Sounds, No Rales, No Rhonchi, No Wheezing Gastrointestinal/Abdominal: Soft, No Tenderness Neurological/Psych: Oriented x3, Normal Speech, Normal Cognition ED Course And Treatment O2 Sat by Pulse Oximetry: 95 (Room air) Pulse Ox Interpretation: Normal Disposition - Disposition Referrals: [facility] [Outside] Disposition: HOME/ ROUTINE Disposition Time: 05:46 Condition: STABLE Instructions: Abuse of Alcohol (ED) Forms: [employer] (Mac[place]) - POA Present On Arrival: None - Clinical Impression Clinical Impression: Alcohol intoxication - Scribe Statement The provider has reviewed the documentation as recorded by the Scribe Fabián Ramirez All medical record entries made by the Scribe were at my direction and personally dictated by me. I have reviewed the chart and agree that the record accurately reflects my personal performance of the history, physical exam, medical decision making, and the department course for this patient. I have also personally directed, reviewed, and agree with the discharge instructions and disposition.
== END 2017-06-11 05:43 | disposition home or self-care (01) ==
LOC: C.ER 22:26
DX: F10.120 Alcohol abuse with intoxication, uncomplicated (principal); Y90.9 Presence of alcohol in blood, level not specified

== ENCOUNTER 2017-06-11 22:41 | Observation (INO) | payer MEDICAID ==
[2017-06-11 22:41] VITALS: BMI 28.8
[2017-06-11 22:59] VITALS: TEMP 98
--- NOTE | 2017-06-11 23:04 | C.PDOC ---
History Of Present Illness 56 y/o male comes in for acute alcohol intoxication. Patient has multiple prior visits for the same complaints. Denies SI, HI, or somatic complaints. Time Seen by Provider: 06/11/17 23:02 Chief Complaint (Nursing): Substance Abuse History Per: Patient History/Exam Limitations: no limitations Onset/Duration Of Symptoms: Hrs Current Symptoms Are (Timing): Still Present Suicide/Self Injury Attempted (Context): None Modifying Factor(s): Alcohol Severity: Mild Associated Symptoms: denies: Suicidal Thoughts, Suicidal Plan Involuntary Hold By: None Recent travel outside of the [place]: No Additional History Per: Patient Past Medical History Reviewed: Historical Data, Nursing Documentation, Vital Signs Vital Signs: Last Vital Signs Temp 98.0 F 06/11/17 22:58 Pulse 82 06/12/17 00:47 Resp 18 06/12/17 00:47 BP 132/79 06/12/17 00:47 Pulse Ox 95 06/12/17 02:39 - Medical History PMH: Anxiety, Arthritis, Bronchitis, CAD, Depression, 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 medical technical writer, not aware), Fractures (Rt. Fa.), Gastritis, Gall Bladder Disease (s/p cholecystectomy), HTN, Post Traumatic Stress Disorder, Rheumatoid Arthritis, Seizures, Chronic Pain Denies: Chronic Kidney Disease Surgical History: Cholecystectomy - [facility] Procedures ALCOHOL DETOXIFICATION (07/04/15) APPLICATION OF SPLINT (03/20/13) CLOSURE SKIN & SUBCUTANEOUS NEC (08/14/13) DETOXIFICATION SERVICES FOR SUBSTANCE ABUSE TREATMENT (03/22/16) ESOPHAGOGASTRODUODENOSCOPY [EGD] W/CLOSED BIOPSY (02/16/15) OTHER GROUP THERAPY (03/12/13) PHYSICAL THERAPY NEC (07/04/15) TETANUS TOXOID ADMINIST (01/19/14) Family History: States: Unknown Family Hx - Social History Hx Tobacco Use: No Hx Alcohol Use: Yes Hx Substance Use: No - Immunization History Hx Tetanus Toxoid Vaccination: Yes Hx Influenza Vaccination: No Hx Pneumococcal Vaccination: No Review Of Systems Constitutional: Positive for: Other (Alcohol intoxicated). Negative for: Fever , Chills Eyes: Negative for: Vision Change ENT: Negative for: Throat Pain Cardiovascular: Negative for: Chest Pain, Palpitations Respiratory: Negative for: Shortness of Breath Gastrointestinal: Negative for: Nausea, Vomiting, Abdominal Pain, Diarrhea Skin: Negative for: Rash Neurological: Negative for: Headache Psych: Negative for: Suicidal ideation, Other (Homicidal ideation) Physical Exam - Physical Exam Appears: Non-toxic, No Acute Distress, Other (Alcohol intoxicated, (+) AOB) Skin: Warm, Dry Head: Atraumatic, Normacephalic Oral Mucosa: Moist Cardiovascular: Rhythm Regular Respiratory: No Rales, No Rhonchi, No Wheezing Gastrointestinal/Abdominal: Soft, No Tenderness Back: No CVA Tenderness Neurological/Psych: Oriented x3, Normal Speech, Normal Cognition ED Course And Treatment O2 Sat by Pulse Oximetry: 95 (RA) Pulse Ox Interpretation: Normal ED OBSERVATION Discharge: Yes Date of observation admission: 06/11/17 Time of observation admission: 23:03 - Observation admission statement Patient is being placed in observation because:: acute alcohol intoxication - Goals of Observation Goals of observation are:: sobriety - Progress Note Progress Note: 06/11/17 23:03 vitals stable 06/12/17 02:38 no complaints 06/12/17 04:39 arousable Disposition Counseled Patient/Family Regarding: Studies Performed, Diagnosis, Need For Followup - Disposition Disposition: HOME/ ROUTINE Disposition Time: 23:02 Condition: FAIR - Clinical Impression Clinical Impression: Alcohol intoxication - Scribe Statement The provider has reviewed the documentation as recorded by the Scribjosé miguel morillo All medical record entries made by the Rominaibjosé miguel were at my direction and personally dictated by me. I have reviewed the chart and agree that the record accurately reflects my personal performance of the history, physical exam, medical decision making, and the department course for this patient. I have also personally directed, reviewed, and agree with the discharge instructions and disposition.
[2017-06-12 02:39] VITALS: O2SAT 95
[2017-06-12 05:17] VITALS: BP 132/76; PULSE 78; RESP 18
== END 2017-06-12 05:09 | disposition home or self-care (01) ==
LOC: SUPCPDRO 22:41 → C.ER 22:41 → C.9OBSV 23:04
PROVIDERS: ADMIT Emergency Medicine; ATTEND Emergency Medicine
DX: F10.129 Alcohol abuse with intoxication, unspecified (principal); Y90.9 Presence of alcohol in blood, level not specified
CPT/HCPCS: G0378 ×2

== ENCOUNTER 2017-06-12 20:23 | Observation (INO) | payer MEDICAID ==
[2017-06-12 20:23] VITALS: BMI 28.8
--- NOTE | 2017-06-12 20:31 | C.PDOC ---
History Of Present Illness 56 y/o male comes in for acute alcohol intoxication. Patient admits to drinking tonight. Patient has numerous prior visits for the same complaints. Denies suicidal, homicidal ideation, or any somatic complaints. Time Seen by Provider: 06/12/17 20:30 History Per: Patient History/Exam Limitations: no limitations Onset/Duration Of Symptoms: Hrs Current Symptoms Are (Timing): Still Present Suicide/Self Injury Attempted (Context): None Modifying Factor(s): Alcohol Severity: Mild Associated Symptoms: denies: Suicidal Thoughts, Suicidal Plan Involuntary Hold By: None Recent travel outside of the [place]: No Additional History Per: Patient Past Medical History Reviewed: Historical Data, Nursing Documentation, Vital Signs Vital Signs: Last Vital Signs Temp 97.8 F 06/12/17 20:44 Pulse 78 06/13/17 01:40 Resp 18 06/13/17 01:40 BP 122/86 06/13/17 01:40 Pulse Ox 99 06/13/17 01:40 - Medical History PMH: Anxiety, Arthritis, Bronchitis, CAD, Depression, 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 mortgage underwriter, not aware), Fractures (Rt. Fa.), Gastritis, Gall Bladder Disease (s/p cholecystectomy), HTN, Post Traumatic Stress Disorder, Rheumatoid Arthritis, Seizures, Chronic Pain Denies: Chronic Kidney Disease Surgical History: Cholecystectomy - [facility] Procedures ALCOHOL DETOXIFICATION (07/04/15) APPLICATION OF SPLINT (03/20/13) CLOSURE SKIN & SUBCUTANEOUS NEC (08/14/13) DETOXIFICATION SERVICES FOR SUBSTANCE ABUSE TREATMENT (03/22/16) ESOPHAGOGASTRODUODENOSCOPY [EGD] W/CLOSED BIOPSY (02/16/15) OTHER GROUP THERAPY (03/12/13) PHYSICAL THERAPY NEC (07/04/15) TETANUS TOXOID ADMINIST (01/19/14) Family History: States: Unknown Family Hx - Social History Hx Tobacco Use: No Hx Alcohol Use: Yes Hx Substance Use: No - Immunization History Hx Tetanus Toxoid Vaccination: Yes Hx Influenza Vaccination: No Hx Pneumococcal Vaccination: No Review Of Systems Except As Marked, All Systems Reviewed And Found Negative. Constitutional: Positive for: Other (Acute alcohol intoxication, no signs of trauma). Negative for: Fever, Chills Cardiovascular: Negative for: Chest Pain Respiratory: Negative for: Shortness of Breath Gastrointestinal: Negative for: Abdominal Pain Genitourinary: Negative for: Dysuria Psych: Negative for: Suicidal ideation, Other (Homicidal ideation) Physical Exam - Physical Exam Appears: Non-toxic, No Acute Distress, Other (Alcohol intoxicated, (+) AOB) Skin: Warm, Dry Head: Atraumatic, Normacephalic Throat: Normal, No Erythema, No Exudate Neck: Supple Cardiovascular: Rhythm Regular Respiratory: Normal Breath Sounds, No Rales, No Rhonchi, No Wheezing Gastrointestinal/Abdominal: Soft, No Tenderness Neurological/Psych: Oriented x3 (Awake and alert) ED Course And Treatment Pulse Ox Interpretation: Normal Medical Decision Making Medical Decision Making: Impression: 56 y/o male comes in for acute alcohol intoxication. Patient admits to drinking tonight. Plans: * ED Obs ED OBSERVATION Date of observation admission: 06/12/17 Time of observation admission: 20:44 - Observation admission statement Patient is being placed in observation because:: Acute alcohol intoxication - Goals of Observation Goals of observation are:: Sobriety Disposition Counseled Patient/Family Regarding: Diagnosis - Disposition Disposition: HOME/ ROUTINE Disposition Time: 04:33 Condition: STABLE - POA Present On Arrival: None - Clinical Impression Clinical Impression: Alcohol abuse with intoxication - Scribe Statement The provider has reviewed the documentation as recorded by the Scribe Rhoda morillo All medical record entries made by the Rominaibe were at my direction and personally dictated by me. I have reviewed the chart and agree that the record accurately reflects my personal performance of the history, physical exam, medical decision making, and the department course for this patient. I have also personally directed, reviewed, and agree with the discharge instructions and disposition.
[2017-06-12 20:45] VITALS: TEMP 97.8
[2017-06-13 02:10] VITALS: BP 122/86; PULSE 78; RESP 18; O2SAT 99
== END 2017-06-13 04:30 | disposition home or self-care (01) ==
LOC: C.ER 20:23 → C.9OBSV 20:58
PROVIDERS: ADMIT Emergency Medicine; ATTEND Emergency Medicine
DX: F10.129 Alcohol abuse with intoxication, unspecified (principal); Y90.9 Presence of alcohol in blood, level not specified

== ENCOUNTER 2017-06-13 20:18 | Observation (INO) | payer MEDICAID ==
[2017-06-13 20:18] VITALS: BMI 28.8
--- NOTE | 2017-06-13 20:26 | C.PDOC ---
History Of Present Illness Patient is a 56 y/o male brought to ED by ambulance for alcohol intoxication. Patient is well known to ED staff for multiple prior visits for alcohol intoxication. Patient denies any trauma, fall, SI, HI, or any physical complaints at this time. Time Seen by Provider: 06/13/17 20:25 Chief Complaint (Nursing): Substance Abuse History Per: Patient History/Exam Limitations: intoxication Onset/Duration Of Symptoms: Gradual Current Symptoms Are (Timing): Still Present Suicide/Self Injury Attempted (Context): None Modifying Factor(s): Alcohol Severity: None Pain Scale Rating Of: 0 Associated Symptoms: denies: Suicidal Thoughts, Suicidal Plan Involuntary Hold By: None Recent travel outside of the [place]: No Additional History Per: Prior Records Past Medical History Reviewed: Historical Data, Nursing Documentation, Vital Signs Vital Signs: Last Vital Signs Temp 98.1 F 06/14/17 02:45 Pulse 86 06/14/17 04:55 Resp 16 06/14/17 04:55 BP 118/72 06/14/17 04:55 Pulse Ox 95 06/14/17 04:55 - Medical History PMH: Anxiety, Arthritis, Bronchitis, CAD, Depression, 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 magazine writer, not aware), Fractures (Rt. Fa.), Gastritis, Gall Bladder Disease (s/p cholecystectomy), HTN, Post Traumatic Stress Disorder, Rheumatoid Arthritis, Seizures, Chronic Pain Denies: Chronic Kidney Disease Surgical History: Cholecystectomy - [facility] Procedures ALCOHOL DETOXIFICATION (07/04/15) APPLICATION OF SPLINT (03/20/13) CLOSURE SKIN & SUBCUTANEOUS NEC (08/14/13) DETOXIFICATION SERVICES FOR SUBSTANCE ABUSE TREATMENT (03/22/16) ESOPHAGOGASTRODUODENOSCOPY [EGD] W/CLOSED BIOPSY (02/16/15) OTHER GROUP THERAPY (03/12/13) PHYSICAL THERAPY NEC (07/04/15) TETANUS TOXOID ADMINIST (01/19/14) Family History: States: Unknown Family Hx - Social History Hx Tobacco Use: No Hx Alcohol Use: Yes Hx Substance Use: No - Immunization History Hx Tetanus Toxoid Vaccination: Yes Hx Influenza Vaccination: No Hx Pneumococcal Vaccination: No Review Of Systems Constitutional: Positive for: Other (+EtOH intoxication). Negative for: Fever, Chills Cardiovascular: Negative for: Chest Pain, Palpitations, Light Headedness Respiratory: Negative for: Cough, Shortness of Breath Gastrointestinal: Negative for: Nausea, Vomiting, Abdominal Pain, Diarrhea, Constipation Musculoskeletal: Negative for: Neck Pain, Back Pain Skin: Negative for: Rash, Lesions, Bruising Neurological: Negative for: Headache, Dizziness Psych: Negative for: Suicidal ideation Physical Exam - Physical Exam Appears: Non-toxic, No Acute Distress, Other (+visibly intoxicated) Skin: Warm, Dry Head: Normacephalic Eye(s): bilateral: Normal Inspection Oral Mucosa: Moist, Other (+EtOH on breath) Neck: Supple Chest: Symmetrical Cardiovascular: Rhythm Regular Respiratory: No Rales, No Rhonchi, No Wheezing Gastrointestinal/Abdominal: Soft, No Tenderness Extremity: Normal ROM Extremity: Bilateral: Atraumatic, Normal ROM Neurological/Psych: Oriented x3 ED OBSERVATION Discharge: Yes Date of observation admission: 06/13/17 Time of observation admission: 20:52 - Observation admission statement Patient is being placed in observation because:: Alcohol intoxication - Goals of Observation Goals of observation are:: Sobriety - Progress Note Progress Note: 06/13/17 20:53 Patient is resting comfortably, no acute distress. No physical complaints at this time. 06/13/17 22:50 vitals stable Disposition Counseled Patient/Family Regarding: Studies Performed, Diagnosis, Need For Followup - Disposition Disposition: HOME/ ROUTINE Disposition Time: 20:25 Condition: FAIR - Clinical Impression Clinical Impression: Alcoholic intoxication, Chronic alcoholism - Scribe Statement The provider has reviewed the documentation as recorded by the Jada Fajardo All medical record entries made by the Jada were at my direction and personally dictated by me. I have reviewed the chart and agree that the record accurately reflects my personal performance of the history, physical exam, medical decision making, and the department course for this patient. I have also personally directed, reviewed, and agree with the discharge instructions and disposition.
[2017-06-14 05:48] VITALS: O2SAT 95
[2017-06-14 05:49] VITALS: TEMP 98.1
[2017-06-14 05:50] VITALS: BP 118/72; PULSE 86; RESP 16
== END 2017-06-14 05:56 | disposition home or self-care (01) ==
LOC: C.ER 20:18 → C.9OBSV 20:26
PROVIDERS: ADMIT Emergency Medicine; ATTEND Emergency Medicine
DX: F10.229 Alcohol dependence with intoxication, unspecified (principal); Y90.9 Presence of alcohol in blood, level not specified
CPT/HCPCS: 82948; 99285; G0378

== ENCOUNTER 2017-06-14 20:56 | Observation (INO) | payer MEDICAID ==
[2017-06-14 20:57] VITALS: BMI 28.8
--- NOTE | 2017-06-14 20:59 | C.PDOC ---
History Of Present Illness Patient presents to the ER with acute ETOH intoxication; denies physical complaints at this time. Time Seen by Provider: 06/14/17 20:58 History Per: Patient History/Exam Limitations: no limitations Onset/Duration Of Symptoms: Hrs Current Symptoms Are (Timing): Still Present Suicide/Self Injury Attempted (Context): None Modifying Factor(s): Alcohol Severity: None Pain Scale Rating Of: 0 Associated Symptoms: denies: Depression, Suicidal Thoughts, Suicidal Plan Involuntary Hold By: None Recent travel outside of the [place]: No Past Medical History Reviewed: Historical Data, Nursing Documentation, Vital Signs - Medical History PMH: Anxiety, Arthritis, Bronchitis, CAD, Depression, 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 mechanic, not aware), Fractures (Rt. Fa.), Gastritis, Gall Bladder Disease (s/p cholecystectomy), HTN, Post Traumatic Stress Disorder, Rheumatoid Arthritis, Seizures, Chronic Pain Surgical History: Cholecystectomy - [facility] Procedures ALCOHOL DETOXIFICATION (07/04/15) APPLICATION OF SPLINT (03/20/13) CLOSURE SKIN & SUBCUTANEOUS NEC (08/14/13) DETOXIFICATION SERVICES FOR SUBSTANCE ABUSE TREATMENT (03/22/16) ESOPHAGOGASTRODUODENOSCOPY [EGD] W/CLOSED BIOPSY (02/16/15) OTHER GROUP THERAPY (03/12/13) PHYSICAL THERAPY NEC (07/04/15) TETANUS TOXOID ADMINIST (01/19/14) Family History: States: No Known Family Hx - Social History Hx Tobacco Use: No Hx Alcohol Use: Yes Hx Substance Use: No - Immunization History Hx Tetanus Toxoid Vaccination: Yes Hx Influenza Vaccination: No Hx Pneumococcal Vaccination: No Review Of Systems Constitutional: Negative for: Fever, Chills Gastrointestinal: Negative for: Nausea, Vomiting, Diarrhea Physical Exam - Physical Exam Appears: Non-toxic, Other (ETOH on breath) Skin: Warm, Dry Oral Mucosa: Moist Chest: Symmetrical, No Tenderness Cardiovascular: Rhythm Regular, No Murmur Respiratory: No Rales, No Rhonchi, No Wheezing Gastrointestinal/Abdominal: Soft, No Tenderness Neurological/Psych: Oriented x3 ED OBSERVATION Date of observation admission: 06/14/17 Time of observation admission: 21:04 - Observation admission statement Patient is being placed in observation because:: Acute ETOH intoxication - Goals of Observation Goals of observation are:: Sobriety Disposition Counseled Patient/Family Regarding: Studies Performed, Diagnosis, Need For Followup - Disposition Referrals: [facility] [Outside] Disposition: HOME/ ROUTINE Disposition Time: 20:59 Condition: FAIR Instructions: Alcohol Intoxication (DC) - Clinical Impression Clinical Impression: Alcohol abuse with intoxication - Scribe Statement The provider has reviewed the documentation as recorded by the Scribjosé miguel Ramirez All medical record entries made by the Rominaibe were at my direction and personally dictated by me. I have reviewed the chart and agree that the record accurately reflects my personal performance of the history, physical exam, medical decision making, and the department course for this patient. I have also personally directed, reviewed, and agree with the discharge instructions and disposition.
[2017-06-14 21:07] VITALS: TEMP 97.7
[2017-06-15 01:53] VITALS: BP 118/70; PULSE 70; RESP 14; O2SAT 96
== END 2017-06-15 05:25 | disposition home or self-care (01) ==
LOC: C.ER 20:56 → C.9OBSV 21:10
PROVIDERS: ADMIT Emergency Medicine; ATTEND Emergency Medicine
DX: F10.129 Alcohol abuse with intoxication, unspecified (principal); Y90.9 Presence of alcohol in blood, level not specified
CPT/HCPCS: 82948; 99283; G0378

== ENCOUNTER 2017-06-16 21:48 | Observation (INO) | payer MEDICAID ==
[2017-06-16 21:48] VITALS: BMI 28.8
--- NOTE | 2017-06-16 22:07 | C.PDOC ---
History Of Present Illness 56 year old male who presents to the ER with acute ETOH intoxication. Denies physical complaints a this time. Chief Complaint (Nursing): Substance Abuse History Per: Patient History/Exam Limitations: no limitations Onset/Duration Of Symptoms: Hrs Current Symptoms Are (Timing): Still Present Suicide/Self Injury Attempted (Context): None Modifying Factor(s): Alcohol Associated Symptoms: denies: Depression, Suicidal Thoughts, Suicidal Plan Involuntary Hold By: None Recent travel outside of the [place]: No Past Medical History Reviewed: Historical Data, Nursing Documentation, Vital Signs Vital Signs: Last Vital Signs Temp 97.7 F 06/17/17 04:01 Pulse 88 06/17/17 04:01 Resp 16 06/17/17 04:01 BP 128/84 06/17/17 04:01 Pulse Ox 98 06/17/17 05:13 - Medical History PMH: Anxiety, Arthritis, Bronchitis, CAD, Depression, 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 signwriter, not aware), Fractures (Rt. Fa.), Gastritis, Gall Bladder Disease (s/p cholecystectomy), HTN, Post Traumatic Stress Disorder, Rheumatoid Arthritis, Seizures, Chronic Pain Surgical History: Cholecystectomy - [facility] Procedures ALCOHOL DETOXIFICATION (07/04/15) APPLICATION OF SPLINT (03/20/13) CLOSURE SKIN & SUBCUTANEOUS NEC (08/14/13) DETOXIFICATION SERVICES FOR SUBSTANCE ABUSE TREATMENT (03/22/16) ESOPHAGOGASTRODUODENOSCOPY [EGD] W/CLOSED BIOPSY (02/16/15) OTHER GROUP THERAPY (03/12/13) PHYSICAL THERAPY NEC (07/04/15) TETANUS TOXOID ADMINIST (01/19/14) Family History: States: Unknown Family Hx - Social History Hx Tobacco Use: No Hx Alcohol Use: Yes Hx Substance Use: No - Immunization History Hx Tetanus Toxoid Vaccination: Yes Hx Influenza Vaccination: No Hx Pneumococcal Vaccination: No Review Of Systems Constitutional: Negative for: Fever, Chills Gastrointestinal: Negative for: Nausea, Vomiting, Diarrhea Physical Exam - Physical Exam Appears: Non-toxic, No Acute Distress, Other (ETOH on breath) Skin: Normal Color, Warm, Dry Head: Atraumatic, Normacephalic Oral Mucosa: Moist Chest: Symmetrical, No Tenderness Cardiovascular: Rhythm Regular, No Murmur Respiratory: Normal Breath Sounds, No Rales, No Rhonchi, No Wheezing Gastrointestinal/Abdominal: Soft, No Tenderness Neurological/Psych: Oriented x3, Normal Speech, Normal Cognition ED Course And Treatment O2 Sat by Pulse Oximetry: 98 (Room air) Pulse Ox Interpretation: Normal ED OBSERVATION Date of observation admission: 06/16/17 Time of observation admission: 22:00 - Observation admission statement Patient is being placed in observation because:: Acute ETOH intoxication - Goals of Observation Goals of observation are:: Sobriety Disposition Counseled Patient/Family Regarding: Diagnosis - Disposition Disposition: HOME/ ROUTINE Disposition Time: 06:01 Condition: STABLE - Clinical Impression Clinical Impression: Alcohol intoxication - Scribe Statement The provider has reviewed the documentation as recorded by the Scribe Fabián Ramirez All medical record entries made by the Rominaibjosé miguel were at my direction and personally dictated by me. I have reviewed the chart and agree that the record accurately reflects my personal performance of the history, physical exam, medical decision making, and the department course for this patient. I have also personally directed, reviewed, and agree with the discharge instructions and disposition.
[2017-06-17 04:01] VITALS: BP 128/84; PULSE 88; RESP 16; TEMP 97.7
[2017-06-17 05:10] VITALS: O2SAT 98
== END 2017-06-17 05:09 | disposition home or self-care (01) ==
LOC: C.ER 21:48 → C.9OBSV 22:45
PROVIDERS: ADMIT Emergency Medicine; ATTEND Emergency Medicine
DX: F10.229 Alcohol dependence with intoxication, unspecified (principal); F41.8 Other specified anxiety disorders; I25.10 Atherosclerotic heart disease of native coronary artery without angina pectoris; I10 Essential (primary) hypertension
CPT/HCPCS: 82948; G0378

== ENCOUNTER 2017-06-18 20:35 | Observation (INO) | payer MEDICAID ==
[2017-06-18 20:36] VITALS: BMI 28.8
[2017-06-18 20:45] VITALS: TEMP 98
--- NOTE | 2017-06-18 20:52 | C.PDOC ---
History Of Present Illness 56 y/o male presents to ED with an acute ETOH intoxication and requesting a place to sleep. Patient is well known at ED for similar complaints. No physical complaints at this time. Time Seen by Provider: 06/18/17 20:45 Chief Complaint (Nursing): Substance Abuse History Per: Patient History/Exam Limitations: no limitations Onset/Duration Of Symptoms: Hrs Current Symptoms Are (Timing): Still Present Suicide/Self Injury Attempted (Context): None Modifying Factor(s): Alcohol Past Medical History Reviewed: Historical Data, Nursing Documentation, Vital Signs Vital Signs: Last Vital Signs Temp 98 F 06/18/17 20:42 Pulse 80 06/19/17 02:56 Resp 20 06/19/17 02:56 BP 134/86 06/19/17 02:56 Pulse Ox 95 06/19/17 02:56 - Medical History PMH: Anxiety, Arthritis, Bronchitis, CAD, Depression, 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 card writer hand, not aware), Fractures (Rt. Fa.), Gastritis, Gall Bladder Disease (s/p cholecystectomy), HTN, Post Traumatic Stress Disorder, Rheumatoid Arthritis, Seizures, Chronic Pain Surgical History: Cholecystectomy - [facility] Procedures ALCOHOL DETOXIFICATION (07/04/15) APPLICATION OF SPLINT (03/20/13) CLOSURE SKIN & SUBCUTANEOUS NEC (08/14/13) DETOXIFICATION SERVICES FOR SUBSTANCE ABUSE TREATMENT (03/22/16) ESOPHAGOGASTRODUODENOSCOPY [EGD] W/CLOSED BIOPSY (02/16/15) OTHER GROUP THERAPY (03/12/13) PHYSICAL THERAPY NEC (07/04/15) TETANUS TOXOID ADMINIST (01/19/14) Family History: States: Unknown Family Hx - Social History Hx Tobacco Use: No Hx Alcohol Use: Yes Hx Substance Use: No - Immunization History Hx Tetanus Toxoid Vaccination: Yes Hx Influenza Vaccination: No Hx Pneumococcal Vaccination: No Review Of Systems Except As Marked, All Systems Reviewed And Found Negative. Gastrointestinal: Negative for: Nausea, Vomiting Skin: Negative for: Rash Physical Exam - Physical Exam Additional Physical Exam Comments: Constitutional: No acute distress. ETOH on breath Head: Normocephalic. Atraumatic. Eyes: PERRL. ENT: Moist mucous membranes. Neck: Supple. Cardiovascular: Regular rate. Radial pulse 2+ bilaterally. Chest: Midsternal chest tenderness Respiratory: Clear to auscultation bilaterally. GI: Soft. Nontender. Nondistended. Back: No CVA tenderness. Musculoskeletal: No tenderness or swelling of extremities. Skin: No rash. Neurologic: Alert, no focal deficit. ED Course And Treatment O2 Sat by Pulse Oximetry: 98 (RA) Pulse Ox Interpretation: Normal - Radiology CXR: Interpreted by Me CXR Interpretation: Yes: No Acute Disease, Mediastinum. No: Fracture, Pnemothorax Medical Decision Making Medical Decision Making: Plan: * ED observation * CXR ED OBSERVATION Discharge: Yes Date of observation admission: 06/18/17 Time of observation admission: 20:52 - Observation admission statement Patient is being placed in observation because:: ETOH intoxication - Goals of Observation Goals of observation are:: Sobreity - Progress Note Progress Note: 06/18/17 20:52 Vital signs stable 2252 Sleeping. 0050 Sleeping. 0250 Sleeping. 0450 Sleeping. 0600 Awake, steady gait. Disposition - Disposition Disposition Time: 20:52 Condition: STABLE - Clinical Impression Clinical Impression: Alcohol intoxication - PA / BATTERY PARTS ASSEMBLER / Resident Statement MD/DO has examined the patient and agrees with the treatment plan. - Scribe Statement The provider has reviewed the documentation as recorded by the Rominaibjosé miguel Contreras All medical record entries made by the Jada were at my direction and personally dictated by me. I have reviewed the chart and agree that the record accurately reflects my personal performance of the history, physical exam, medical decision making, and the department course for this patient. I have also personally directed, reviewed, and agree with the discharge instructions and disposition.
[2017-06-19 02:56] VITALS: PULSE 80; RESP 20
[2017-06-19 06:06] VITALS: O2SAT 98
[2017-06-19 06:38] VITALS: BP 140/81
--- NOTE | 2017-06-19 11:13 | RAD ---
HISTORY: chest tenderness COMPARISON: 12/14/2016. FINDINGS: LUNGS: There are low lung volumes. No focal consolidation. PLEURA: No significant pleural effusion identified, no pneumothorax apparent. CARDIOVASCULAR: Normal. OSSEOUS STRUCTURES: No significant abnormalities. VISUALIZED UPPER ABDOMEN: Normal. OTHER FINDINGS: None. IMPRESSION: No active pulmonary disease. Low lung volumes may be related to poor inspiratory effort.
== END 2017-06-19 06:06 | disposition home or self-care (01) ==
LOC: SUPCPDRO 20:35 → C.ER 20:35 → C.9OBSV 20:49
PROVIDERS: ADMIT Student in an Organized Health Care Education/Training Program; ATTEND Student in an Organized Health Care Education/Training Program
DX: F10.129 Alcohol abuse with intoxication, unspecified (principal); M06.9 Rheumatoid arthritis, unspecified; E11.9 Type 2 diabetes mellitus without complications; I10 Essential (primary) hypertension
CPT/HCPCS: 71010; 82948; G0378

== ENCOUNTER 2017-06-19 21:38 | Emergency (ER) | payer MEDICAID ==
[2017-06-19 21:39] VITALS: BMI 28.8
[2017-06-19 21:56] VITALS: RESP 20
--- NOTE | 2017-06-19 22:08 | C.PDOC ---
History Of Present Illness Patient comes in for acute alcohol intoxication. 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 Patient has numerous visits in the ER for the same complaint. Denies SI, HI, or somatic complaints. Time Seen by Provider: 06/19/17 22:06 Chief Complaint (Nursing): Substance Abuse History Per: Patient History/Exam Limitations: no limitations Onset/Duration Of Symptoms: Hrs Current Symptoms Are (Timing): Still Present Suicide/Self Injury Attempted (Context): None Modifying Factor(s): Alcohol Severity: Mild Associated Symptoms: denies: Suicidal Thoughts, Suicidal Plan Involuntary Hold By: None Recent travel outside of the [place]: No Additional History Per: Patient Past Medical History Reviewed: Historical Data, Nursing Documentation, Vital Signs Vital Signs: Last Vital Signs Temp 97.2 F L 06/19/17 21:52 Pulse 87 06/20/17 02:15 Resp 20 06/20/17 02:15 BP 141/70 06/20/17 02:15 Pulse Ox 96 06/20/17 04:54 - Medical History PMH: Anxiety, Arthritis, Bronchitis, CAD, Depression, 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 financial underwriter, not aware), Fractures (Rt. Fa.), Gastritis, Gall Bladder Disease (s/p cholecystectomy), HTN, Post Traumatic Stress Disorder, Rheumatoid Arthritis, Seizures, Chronic Pain Denies: Chronic Kidney Disease Surgical History: Cholecystectomy - [facility] Procedures ALCOHOL DETOXIFICATION (07/04/15) APPLICATION OF SPLINT (03/20/13) CLOSURE SKIN & SUBCUTANEOUS NEC (08/14/13) DETOXIFICATION SERVICES FOR SUBSTANCE ABUSE TREATMENT (03/22/16) ESOPHAGOGASTRODUODENOSCOPY [EGD] W/CLOSED BIOPSY (02/16/15) OTHER GROUP THERAPY (03/12/13) PHYSICAL THERAPY NEC (07/04/15) TETANUS TOXOID ADMINIST (01/19/14) Family History: States: Unknown Family Hx - Social History Hx Tobacco Use: No Hx Alcohol Use: Yes Hx Substance Use: No - Immunization History Hx Tetanus Toxoid Vaccination: Yes Hx Influenza Vaccination: No Hx Pneumococcal Vaccination: No Review Of Systems Except As Marked, All Systems Reviewed And Found Negative. Constitutional: Positive for: Other (Acute alcohol intoxication) Psych: Negative for: Suicidal ideation, Other (HOmicidal ideation) Physical Exam - Physical Exam Appears: Non-toxic, No Acute Distress, Other ((+) AOB) Skin: Warm, Dry Head: Atraumatic, Normacephalic Oral Mucosa: Moist Throat: Normal, No Erythema Cardiovascular: Rhythm Regular Respiratory: Normal Breath Sounds, No Rales, No Rhonchi, No Wheezing Gastrointestinal/Abdominal: Soft, No Tenderness Back: Normal Inspection, No CVA Tenderness Neurological/Psych: Oriented x3 (Awake and alert), No Normal Speech (Slurred ) Gait: Unsteady ED Course And Treatment - Laboratory Results Result Diagrams: 06/19/17 22:45 06/19/17 22:45 O2 Sat by Pulse Oximetry: 96 (RA) Pulse Ox Interpretation: Normal Medical Decision Making Medical Decision Making: Impression: Patient comes in for acute alcohol intoxication. Plans: * ED Obs ED OBSERVATION Date of observation admission: 06/19/17 Time of observation admission: 22:09 - Observation admission statement Patient is being placed in observation because:: Acute alcohol intoxication - Goals of Observation Goals of observation are:: Sobriety Disposition Counseled Patient/Family Regarding: Diagnosis - Disposition Referrals: [facility] [Outside] Disposition: HOME/ ROUTINE Disposition Time: 05:45 Condition: STABLE Prescriptions: Potassium Chloride [K-Dur 20] 20 meq PO DAILY #14 tab Instructions: Abuse of Alcohol (ED) Forms: [facility] ([place]) - POA Present On Arrival: None - Clinical Impression Clinical Impression: Alcohol intoxication, Hypokalemia - Scribe Statement The provider has reviewed the documentation as recorded by the Scribe Zoie morillo All medical record entries made by the Scribe were at my direction and personally dictated by me. I have reviewed the chart and agree that the record accurately reflects my personal performance of the history, physical exam, medical decision making, and the department course for this patient. I have also personally directed, reviewed, and agree with the discharge instructions and disposition.
[2017-06-19 22:58] LABS: CHLORIDE 101 mmol/L (98-107)
[2017-06-19 22:59] LABS: POTASSIUM 3.2 mmol/L (3.6-5.2); SODIUM 145 mmol/L (132-148)
[2017-06-19 23:01] LABS: ALB/GLOB RATIO 0.8 (1.0-2.1); ALKALINE PHOSPHATASE 109 U/L (38-126); AST/SGOT 241 U/L (17-59); BILIRUBIN,TOTAL 0.9 mg/dL (0.2-1.3); BLOOD UREA NITROGEN 11 mg/dL (9-20); CARBON DIOXIDE 26 mmol/L (22-30); GFR AFRICAN-AMERICAN > 60; TOTAL PROTEIN 8.2 g/dL (6.3-8.3)
[2017-06-19 23:02] LABS: ALT/SGPT 45 U/L (21-72); CALCIUM 8.9 mg/dl (8.6-10.4); EOS # 0.1 K/uL (0.0-0.7); EOS % 2.5 % (0.0-4.0); GLUCOSE,RANDOM 101 mg/dL (75-110); HEMATOCRIT 33.6 % (35.0-51.0); LYMPH # 1.4 K/uL (1.0-4.3); LYMPH % 37.7 % (20.0-40.0); MEAN CELL VOLUME 104.4 fL (80.0-94.0); MEAN CORPUSCULAR HEMOGLOBIN 35.6 pg (27.0-31.0); MEAN CORPUSCULAR HGB CONC 34.1 g/dL (33.0-37.0); MEAN PLATELET VOLUME 8.5 fL (7.2-11.7); MONO # 0.6 K/uL (0.0-0.8); MONO % 15.7 % (0.0-10.0); NRBC % 0.4 % (0.0-2.0); RED CELL DISTRIBUTION WIDTH 13.6 % (11.5-14.5); WHITE BLOOD COUNT 3.8 K/uL (4.8-10.8)
[2017-06-19 23:21] LABS: INR 1.3
[2017-06-19] MEDS ORDERED: Potassium Chloride 20 mEq ER Tab PO STA (23:31)
[2017-06-19] MEDS ORDERED: Potassium Chloride 20 mEq ER Tab PO ONE (23:34)
[2017-06-19 23:39] LABS: ALCOHOL SERUM 341 mg/dl (0-10)
[2017-06-20 03:37] VITALS: BP 141/70
[2017-06-20 06:04] VITALS: PULSE 69; TEMP 97.1; O2SAT 97
== END 2017-06-20 06:04 | disposition home or self-care (01) ==
LOC: C.ER 21:38
DX: E87.6 Hypokalemia (principal); F10.129 Alcohol abuse with intoxication, unspecified; Y90.8 Blood alcohol level of 240 mg/100 ml or more; E11.9 Type 2 diabetes mellitus without complications; I10 Essential (primary) hypertension; I25.10 Atherosclerotic heart disease of native coronary artery without angina pectoris

== ENCOUNTER 2017-06-20 20:45 | Observation (INO) | payer MEDICAID ==
--- NOTE | 2017-06-20 21:06 | C.PDOC ---
History Of Present Illness 56 year old male who presents to the ER with acute ETOH intoxication. Denies physical complaints at this time. Time Seen by Provider: 06/20/17 21:03 History Per: Patient History/Exam Limitations: no limitations Onset/Duration Of Symptoms: Hrs Current Symptoms Are (Timing): Still Present Suicide/Self Injury Attempted (Context): None Modifying Factor(s): Alcohol Associated Symptoms: denies: Depression, Suicidal Thoughts, Suicidal Plan Involuntary Hold By: None Recent travel outside of the [place]: No Past Medical History Reviewed: Historical Data, Nursing Documentation, Vital Signs Vital Signs: Last Vital Signs Temp 98.2 F 06/21/17 05:08 Pulse 82 06/21/17 05:08 Resp 18 06/21/17 05:08 BP 122/68 06/21/17 05:08 Pulse Ox 97 06/21/17 05:08 - Medical History PMH: Anxiety, Arthritis, Bronchitis, CAD, Depression, 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 database report writer, not aware), Fractures (Rt. Fa.), Gastritis, Gall Bladder Disease (s/p cholecystectomy), HTN, Post Traumatic Stress Disorder, Rheumatoid Arthritis, Seizures, Chronic Pain Surgical History: Cholecystectomy - [facility] Procedures ALCOHOL DETOXIFICATION (07/04/15) APPLICATION OF SPLINT (03/20/13) CLOSURE SKIN & SUBCUTANEOUS NEC (08/14/13) DETOXIFICATION SERVICES FOR SUBSTANCE ABUSE TREATMENT (03/22/16) ESOPHAGOGASTRODUODENOSCOPY [EGD] W/CLOSED BIOPSY (02/16/15) OTHER GROUP THERAPY (03/12/13) PHYSICAL THERAPY NEC (07/04/15) TETANUS TOXOID ADMINIST (01/19/14) Family History: States: Unknown Family Hx - Social History Hx Tobacco Use: No Hx Alcohol Use: Yes Hx Substance Use: No - Immunization History Hx Tetanus Toxoid Vaccination: Yes Hx Influenza Vaccination: No Hx Pneumococcal Vaccination: No Review Of Systems Constitutional: Negative for: Fever, Chills Gastrointestinal: Negative for: Nausea, Vomiting, Diarrhea Physical Exam - Physical Exam Appears: Non-toxic, No Acute Distress, Other (ETOH on breath) Skin: Normal Color, Warm, Dry Head: Atraumatic, Normacephalic Oral Mucosa: Moist Chest: Symmetrical, No Tenderness Cardiovascular: Rhythm Regular, No Murmur Respiratory: Other (Speaking in complete sentences. No respiratory distress.) Gastrointestinal/Abdominal: Soft, No Tenderness Neurological/Psych: Oriented x3, Normal Speech, Normal Cognition Progress - Data Reviewed Data Reviewed: Old records ED OBSERVATION Discharge: Yes Date of observation admission: 06/20/17 Time of observation admission: 21:00 - Observation admission statement Patient is being placed in observation because:: INTOX - Goals of Observation Goals of observation are:: SOBRIETY, NEURO INTACT - Progress Note Progress Note: 06/21/17 05:14 CLEAR SPEECH AND THOUGHT STEADY GAIT NO S/S ACUTE INTOX Disposition Counseled Patient/Family Regarding: Diagnosis, Need For Followup - Disposition Disposition: HOME/ ROUTINE Disposition Time: 05:00 Condition: IMPROVED - Clinical Impression Clinical Impression: Alcohol intoxication - Scribe Statement The provider has reviewed the documentation as recorded by the Scribjosé miguel Ramirez All medical record entries made by the Rominaibjosé miguel were at my direction and personally dictated by me. I have reviewed the chart and agree that the record accurately reflects my personal performance of the history, physical exam, medical decision making, and the department course for this patient. I have also personally directed, reviewed, and agree with the discharge instructions and disposition.
[2017-06-20 22:07] VITALS: RESP 18
[2017-06-21 05:08] VITALS: BP 122/68; PULSE 82; TEMP 98.2; O2SAT 97
== END 2017-06-21 05:14 | disposition home or self-care (01) ==
LOC: C.ER 20:45 → C.9OBSV 21:00
PROVIDERS: ADMIT Emergency Medicine; ATTEND Emergency Medicine
DX: F10.129 Alcohol abuse with intoxication, unspecified (principal); I25.10 Atherosclerotic heart disease of native coronary artery without angina pectoris; E11.9 Type 2 diabetes mellitus without complications; M19.90 Unspecified osteoarthritis, unspecified site; F41.9 Anxiety disorder, unspecified; F32.9 Major depressive disorder, single episode, unspecified
CPT/HCPCS: 99285; G0378

== ENCOUNTER 2017-06-21 19:55 | Observation (INO) | payer MEDICAID ==
--- NOTE | 2017-06-21 20:11 | C.PDOC ---
History Of Present Illness Patient is a 56 yo male presented to the ER with acute ETOH intoxication. Denies physical complaints at this time. History Per: Patient History/Exam Limitations: no limitations Onset/Duration Of Symptoms: Hrs Current Symptoms Are (Timing): Still Present Suicide/Self Injury Attempted (Context): None Modifying Factor(s): Alcohol Associated Symptoms: denies: Depression, Suicidal Thoughts, Suicidal Plan Recent travel outside of the [place]: No Past Medical History Reviewed: Historical Data, Nursing Documentation, Vital Signs Vital Signs: Last Vital Signs Temp 98.3 F 06/22/17 02:13 Pulse 87 06/22/17 02:13 Resp 18 06/22/17 05:30 BP 142/90 06/22/17 02:13 Pulse Ox 98 06/22/17 05:30 - Medical History PMH: No Chronic Diseases, Anxiety, Arthritis, Bronchitis, CAD, Depression, 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 promotion writer, not aware), Fractures (Rt. Fa.), Gastritis, Gall Bladder Disease (s/p cholecystectomy), HTN, Post Traumatic Stress Disorder, Rheumatoid Arthritis, Seizures, Chronic Pain Surgical History: Cholecystectomy - [facility] Procedures ALCOHOL DETOXIFICATION (07/04/15) APPLICATION OF SPLINT (03/20/13) CLOSURE SKIN & SUBCUTANEOUS NEC (08/14/13) DETOXIFICATION SERVICES FOR SUBSTANCE ABUSE TREATMENT (03/22/16) ESOPHAGOGASTRODUODENOSCOPY [EGD] W/CLOSED BIOPSY (02/16/15) OTHER GROUP THERAPY (03/12/13) PHYSICAL THERAPY NEC (07/04/15) TETANUS TOXOID ADMINIST (01/19/14) Family History: States: Unknown Family Hx - Social History Hx Tobacco Use: No Hx Alcohol Use: Yes Hx Substance Use: No - Immunization History Hx Tetanus Toxoid Vaccination: Yes Hx Influenza Vaccination: No Hx Pneumococcal Vaccination: No Review Of Systems Constitutional: Negative for: Fever, Chills, Sweats Cardiovascular: Negative for: Chest Pain, Palpitations Respiratory: Negative for: Shortness of Breath, Wheezing Gastrointestinal: Negative for: Nausea, Vomiting Physical Exam - Physical Exam Appears: Non-toxic, Other (ETOH on breath) Skin: Normal Color, Warm, Dry Head: Atraumatic, Normacephalic Oral Mucosa: Moist Chest: Symmetrical, No Tenderness Cardiovascular: Rhythm Regular, No Murmur Respiratory: Normal Breath Sounds, No Rales, No Rhonchi, No Wheezing Gastrointestinal/Abdominal: Soft, No Tenderness Extremity: Normal ROM (x4) Neurological/Psych: Oriented x3, Normal Speech, Normal Cognition, Other ED OBSERVATION Date of observation admission: 06/21/17 Time of observation admission: 20:33 - Observation admission statement Patient is being placed in observation because:: Acute ETOH intoxication - Goals of Observation Goals of observation are:: Sobriety Disposition Counseled Patient/Family Regarding: Diagnosis - Disposition Disposition: HOME/ ROUTINE Disposition Time: 05:50 Condition: STABLE - POA Present On Arrival: None - Clinical Impression Clinical Impression: Alcohol intoxication - Scribe Statement The provider has reviewed the documentation as recorded by the Scribe Yamilet Madrigal All medical record entries made by the Scribe were at my direction and personally dictated by me. I have reviewed the chart and agree that the record accurately reflects my personal performance of the history, physical exam, medical decision making, and the department course for this patient. I have also personally directed, reviewed, and agree with the discharge instructions and disposition.
[2017-06-21 23:02] VITALS: O2SAT 98
[2017-06-22 02:14] VITALS: BP 142/90; PULSE 87; TEMP 98.3
[2017-06-22 05:45] VITALS: RESP 18
== END 2017-06-22 05:48 | disposition home or self-care (01) ==
LOC: C.ER 19:55 → C.9OBSV 21:55
PROVIDERS: ADMIT Emergency Medicine; ATTEND Emergency Medicine
DX: F10.129 Alcohol abuse with intoxication, unspecified (principal)
CPT/HCPCS: 82948; 99285; G0378

== ENCOUNTER 2017-06-23 20:37 | Observation (INO) | payer MEDICAID ==
[2017-06-23 20:51] VITALS: TEMP 97.9
--- NOTE | 2017-06-23 21:47 | C.PDOC ---
History Of Present Illness 56 yo male presents to the ED with acute ETOH intoxication; [facility] ambulance. Patient admits to having several drinks today. Consistent hx of prior visits to ED for the same complaints. Denies any physical complaints at this time. Time Seen by Provider: 06/23/17 20:43 Chief Complaint (Nursing): Substance Abuse History Per: Patient, EMS History/Exam Limitations: intoxication Onset/Duration Of Symptoms: Unknown Current Symptoms Are (Timing): Still Present Suicide/Self Injury Attempted (Context): None Modifying Factor(s): Alcohol Severity: Moderate Associated Symptoms: denies: Depression, Suicidal Thoughts, Suicidal Plan Involuntary Hold By: Emergency Physician Past Medical History Reviewed: Historical Data, Nursing Documentation, Vital Signs Vital Signs: Last Vital Signs Temp 97.9 F 06/23/17 20:43 Pulse 83 06/24/17 06:18 Resp 18 06/24/17 06:18 BP 132/76 06/24/17 06:18 Pulse Ox 100 06/24/17 06:18 - Medical History PMH: Anxiety, Arthritis, Bronchitis, CAD, Depression, 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 assembly instructions writer, not aware), Fractures (Rt. Fa.), Gastritis, Gall Bladder Disease (s/p cholecystectomy), HTN, Post Traumatic Stress Disorder, Rheumatoid Arthritis, Seizures, Chronic Pain Surgical History: Cholecystectomy - [facility] Procedures ALCOHOL DETOXIFICATION (07/04/15) APPLICATION OF SPLINT (03/20/13) CLOSURE SKIN & SUBCUTANEOUS NEC (08/14/13) DETOXIFICATION SERVICES FOR SUBSTANCE ABUSE TREATMENT (03/22/16) ESOPHAGOGASTRODUODENOSCOPY [EGD] W/CLOSED BIOPSY (02/16/15) OTHER GROUP THERAPY (03/12/13) PHYSICAL THERAPY NEC (07/04/15) TETANUS TOXOID ADMINIST (01/19/14) Family History: States: No Known Family Hx - Social History Hx Tobacco Use: No Hx Alcohol Use: Yes Hx Substance Use: No - Immunization History Hx Tetanus Toxoid Vaccination: Yes Hx Influenza Vaccination: No Hx Pneumococcal Vaccination: No Review Of Systems Except As Marked, All Systems Reviewed And Found Negative. Cardiovascular: Negative for: Chest Pain Respiratory: Negative for: Shortness of Breath Gastrointestinal: Negative for: Nausea, Vomiting, Abdominal Pain, Diarrhea Neurological: Negative for: Headache Psych: Positive for: Other (alcohol intoxication) Physical Exam - Physical Exam Appears: Well, Non-toxic, Unkempt, Other (intoxicated.) Skin: Normal Color, Warm, Dry Head: Atraumatic, Normacephalic Eye(s): bilateral: Normal Inspection Oral Mucosa: Moist Cardiovascular: Rhythm Regular Respiratory: Normal Breath Sounds, No Rales, No Rhonchi, No Wheezing Gastrointestinal/Abdominal: Normal Exam, Bowel Sounds, Soft, No Tenderness Extremity: Normal ROM, No Deformity Extremity: Bilateral: Atraumatic, Normal Color And Temperature, Normal ROM Neurological/Psych: Other (awake, alert, intoxicated, moving all 4 extremities spontaneously) ED Course And Treatment O2 Sat by Pulse Oximetry: 97 (Room air.) Pulse Ox Interpretation: Normal Progress Note: Accucheck ordered and reviewed. Patient placed in ED observation pending sobriety. 11:35pm- Patient sleeping comfortably, arousable to verbal stimuli. Pending sobriety. 2:20am - Patient sleeping comfortably, arousable to verbal stimuli. Pending sobriety. 5:50am- Patient currently AAOx3 , ambulating normally in the ED. Patient is clinically sober at this time, will discharge. Reevaluation Time: 05:50 Reassessment Condition: Improved Disposition - Disposition Disposition: HOME/ ROUTINE Disposition Time: 05:50 Condition: STABLE - Clinical Impression Clinical Impression: Alcohol intoxication - Scribe Statement The provider has reviewed the documentation as recorded by the Scribe Yamilet Madrigal All medical record entries made by the Scribe were at my direction and personally dictated by me. I have reviewed the chart and agree that the record accurately reflects my personal performance of the history, physical exam, medical decision making, and the department course for this patient. I have also personally directed, reviewed, and agree with the discharge instructions and disposition.
[2017-06-24 06:19] VITALS: BP 132/76; PULSE 83; RESP 18
[2017-06-24 06:23] VITALS: O2SAT 97
== END 2017-06-24 05:46 | disposition home or self-care (01) ==
LOC: C.ER 20:37 → C.9OBSV 20:58
PROVIDERS: ADMIT Emergency Medicine; ATTEND Emergency Medicine
DX: F10.229 Alcohol dependence with intoxication, unspecified (principal); F32.9 Major depressive disorder, single episode, unspecified
CPT/HCPCS: 82948; 99284; G0378

== ENCOUNTER 2017-06-27 20:11 | Emergency (ER) | payer MEDICAID ==
--- NOTE | 2017-06-27 21:07 | C.PDOC ---
History Of Present Illness 56 y/o male here for acute alcohol intoxication. Patient has numerous prior visits for the same complaint. Denies SI, HI, and somatic complaints. Time Seen by Provider: 06/27/17 20:41 Chief Complaint (Nursing): Substance Abuse History Per: Patient History/Exam Limitations: no limitations Onset/Duration Of Symptoms: Hrs Current Symptoms Are (Timing): Still Present Suicide/Self Injury Attempted (Context): None Modifying Factor(s): Alcohol Severity: Mild Associated Symptoms: denies: Suicidal Thoughts, Suicidal Plan Involuntary Hold By: None Recent travel outside of the [place]: No Additional History Per: Patient Past Medical History Reviewed: Historical Data, Nursing Documentation, Vital Signs Vital Signs: Last Vital Signs Temp 97.9 F 06/28/17 04:18 Pulse 78 06/28/17 04:18 Resp 18 06/28/17 04:18 BP 139/78 06/28/17 04:18 Pulse Ox 99 06/28/17 04:18 - Medical History PMH: Anxiety, Arthritis, Bronchitis, CAD, Depression, 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, not aware), Fractures (Rt. Fa.), Gastritis, Gall Bladder Disease (s/p cholecystectomy), HTN, Post Traumatic Stress Disorder, Rheumatoid Arthritis, Seizures, Chronic Pain Denies: Chronic Kidney Disease Surgical History: Cholecystectomy - [facility] Procedures ALCOHOL DETOXIFICATION (07/04/15) APPLICATION OF SPLINT (03/20/13) CLOSURE SKIN & SUBCUTANEOUS NEC (08/14/13) DETOXIFICATION SERVICES FOR SUBSTANCE ABUSE TREATMENT (03/22/16) ESOPHAGOGASTRODUODENOSCOPY [EGD] W/CLOSED BIOPSY (02/16/15) OTHER GROUP THERAPY (03/12/13) PHYSICAL THERAPY NEC (07/04/15) TETANUS TOXOID ADMINIST (01/19/14) Family History: States: Unknown Family Hx - Social History Hx Tobacco Use: No Hx Alcohol Use: Yes Hx Substance Use: No - Immunization History Hx Tetanus Toxoid Vaccination: Yes Hx Influenza Vaccination: No Hx Pneumococcal Vaccination: No Review Of Systems Except As Marked, All Systems Reviewed And Found Negative. Constitutional: Positive for: Other (Acute alcohol intoxication) Psych: Negative for: Suicidal ideation, Other (Homicidal ideation) Physical Exam - Physical Exam Additional Physical Exam Comments: Constitutional: No acute distress. Acute alcohol intoxication (+) AOB Head: Normocephalic. Atraumatic. Eyes: PERRL. ENT: Moist mucous membranes. Neck: Supple. Cardiovascular: Regular rate. Radial pulse 2+ bilaterally. Chest: No tenderness. Respiratory: Clear to auscultation bilaterally. GI: Soft. Nontender. Nondistended. Back: No CVA tenderness. Musculoskeletal: No tenderness or swelling of extremities. Skin: No rash. Neurologic: Alert, no focal deficit. Slurred speech. Gait: Unsteady ED Course And Treatment O2 Sat by Pulse Oximetry: 98 (RA) Pulse Ox Interpretation: Normal Medical Decision Making Medical Decision Making: Plans: EDS obs, reassess ED OBSERVATION Discharge: Yes Date of observation admission: 06/27/17 Time of observation admission: 21:05 - Observation admission statement Patient is being placed in observation because:: Acute alcohol intoxication - Goals of Observation Goals of observation are:: Sobriety - Progress Note Progress Note: 2105 Sleeping. 2305 Sleeping. 0100 Sleeping. 0300 Sleeping. 0500 Sleeping. 0520 Patient awake, walking steadily, walked out of ED without papers. Disposition - Disposition Disposition: HOME/ ROUTINE Disposition Time: 21:05 Condition: STABLE Forms: [facility] (Irish) - Clinical Impression Clinical Impression: Alcohol intoxication - Scribe Statement The provider has reviewed the documentation as recorded by the Scribe Rhoda morillo All medical record entries made by the Rominaibjosé miguel were at my direction and personally dictated by me. I have reviewed the chart and agree that the record accurately reflects my personal performance of the history, physical exam, medical decision making, and the department course for this patient. I have also personally directed, reviewed, and agree with the discharge instructions and disposition.
[2017-06-28 04:18] VITALS: BP 139/78; PULSE 78; RESP 18; TEMP 97.9
[2017-06-28 05:25] VITALS: O2SAT 98
== END 2017-06-28 05:26 | disposition home or self-care (01) ==
LOC: C.ER 20:11
DX: F10.129 Alcohol abuse with intoxication, unspecified (principal); Y90.9 Presence of alcohol in blood, level not specified

== ENCOUNTER 2017-06-28 20:14 | Observation (INO) | payer MEDICAID ==
--- NOTE | 2017-06-28 21:34 | C.PDOC ---
History Of Present Illness Patient is a 56 y/o male with a hx of substance abuse who presents to the ED with ETOH intoxication and an unsteady gait. Patient has extensive hx of similar visits with same complaint; denies SI, HI, or somatic complaints at this time. Chief Complaint (Nursing): Substance Abuse History Per: Patient History/Exam Limitations: no limitations Onset/Duration Of Symptoms: Hrs Current Symptoms Are (Timing): Still Present Associated Symptoms: denies: Suicidal Thoughts, Suicidal Plan Recent travel outside of the [place]: No Past Medical History Reviewed: Historical Data, Nursing Documentation, Vital Signs Vital Signs: Last Vital Signs Temp 97.9 F 06/29/17 00:59 Pulse 89 06/29/17 00:59 Resp 18 06/29/17 00:59 BP 148/90 06/29/17 00:59 Pulse Ox 95 06/29/17 00:59 - Medical History PMH: Anxiety, Arthritis, Bronchitis, CAD, Depression, 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 mechanic, not aware), Fractures (Rt. Fa.), Gastritis, Gall Bladder Disease (s/p cholecystectomy), HTN, Post Traumatic Stress Disorder, Rheumatoid Arthritis, Seizures, Chronic Pain Denies: Chronic Kidney Disease Surgical History: Cholecystectomy - [facility] Procedures ALCOHOL DETOXIFICATION (07/04/15) APPLICATION OF SPLINT (03/20/13) CLOSURE SKIN & SUBCUTANEOUS NEC (08/14/13) DETOXIFICATION SERVICES FOR SUBSTANCE ABUSE TREATMENT (03/22/16) ESOPHAGOGASTRODUODENOSCOPY [EGD] W/CLOSED BIOPSY (02/16/15) OTHER GROUP THERAPY (03/12/13) PHYSICAL THERAPY NEC (07/04/15) TETANUS TOXOID ADMINIST (01/19/14) Family History: States: Unknown Family Hx - Social History Hx Tobacco Use: No Hx Alcohol Use: Yes Hx Substance Use: No - Immunization History Hx Tetanus Toxoid Vaccination: Yes Hx Influenza Vaccination: No Hx Pneumococcal Vaccination: No Review Of Systems Constitutional: Negative for: Fever, Chills Cardiovascular: Negative for: Chest Pain Respiratory: Negative for: Shortness of Breath Gastrointestinal: Negative for: Nausea, Vomiting, Diarrhea Psych: Negative for: Suicidal ideation Physical Exam - Physical Exam Appears: Well, No Acute Distress, Other (ETOH on breath) Skin: Normal Color, Warm, Dry Head: Atraumatic, Normacephalic Oral Mucosa: Moist Chest: Symmetrical Cardiovascular: Rhythm Regular, No Murmur Respiratory: Normal Breath Sounds, No Rales, No Rhonchi, No Wheezing Gastrointestinal/Abdominal: Soft, No Tenderness Extremity: Normal ROM (x4) Neurological/Psych: Oriented x3, Normal Speech, Normal Cognition Gait: Unsteady ED Course And Treatment O2 Sat by Pulse Oximetry: 94 (room air) Pulse Ox Interpretation: Normal Disposition Counseled Patient/Family Regarding: Diagnosis - Disposition Disposition: HOME/ ROUTINE Disposition Time: 05:25 Condition: STABLE - POA Present On Arrival: None - Clinical Impression Clinical Impression: Alcohol intoxication - Scribe Statement The provider has reviewed the documentation as recorded by the Scribe Yamilet Madrigal All medical record entries made by the Scribe were at my direction and personally dictated by me. I have reviewed the chart and agree that the record accurately reflects my personal performance of the history, physical exam, medical decision making, and the department course for this patient. I have also personally directed, reviewed, and agree with the discharge instructions and disposition.
[2017-06-29 01:06] VITALS: RESP 18
[2017-06-29 05:25] VITALS: O2SAT 94
[2017-06-29 05:30] VITALS: BP 133/87; PULSE 84; TEMP 98
== END 2017-06-29 05:26 | disposition home or self-care (01) ==
LOC: C.ER 20:14 → C.9OBSV 06-29 00:25
PROVIDERS: ADMIT Emergency Medicine; ATTEND Emergency Medicine
DX: F10.129 Alcohol abuse with intoxication, unspecified (principal)
CPT/HCPCS: 99284; G0378

== ENCOUNTER 2017-06-30 20:33 | Observation (INO) | payer MEDICAID ==
[2017-06-30 20:53] VITALS: O2SAT 98
--- NOTE | 2017-06-30 20:59 | C.PDOC ---
History Of Present Illness Patient presents to the ER with acute ETOH intoxication. Denies physical complaints at this time. Time Seen by Provider: 06/30/17 20:57 Chief Complaint (Nursing): Substance Abuse History Per: Patient History/Exam Limitations: no limitations Onset/Duration Of Symptoms: Hrs Current Symptoms Are (Timing): Still Present Suicide/Self Injury Attempted (Context): None Modifying Factor(s): Alcohol Severity: None Pain Scale Rating Of: 0 Associated Symptoms: denies: Depression, Suicidal Thoughts, Suicidal Plan Involuntary Hold By: None Recent travel outside of the [place]: No Past Medical History Reviewed: Historical Data, Nursing Documentation, Vital Signs Vital Signs: Last Vital Signs Temp 97.8 F 07/01/17 02:46 Pulse 81 07/01/17 02:46 Resp 16 07/01/17 02:46 BP 126/78 07/01/17 02:46 Pulse Ox 98 07/01/17 04:01 - Medical History PMH: Anxiety, Arthritis, Bronchitis, CAD, Depression, 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 data analyst report writer, not aware), Fractures (Rt. Fa.), Gastritis, Gall Bladder Disease (s/p cholecystectomy), HTN, Post Traumatic Stress Disorder, Rheumatoid Arthritis, Seizures, Chronic Pain Surgical History: Cholecystectomy - [facility] Procedures ALCOHOL DETOXIFICATION (07/04/15) APPLICATION OF SPLINT (03/20/13) CLOSURE SKIN & SUBCUTANEOUS NEC (08/14/13) DETOXIFICATION SERVICES FOR SUBSTANCE ABUSE TREATMENT (03/22/16) ESOPHAGOGASTRODUODENOSCOPY [EGD] W/CLOSED BIOPSY (02/16/15) OTHER GROUP THERAPY (03/12/13) PHYSICAL THERAPY NEC (07/04/15) TETANUS TOXOID ADMINIST (01/19/14) Family History: States: Unknown Family Hx - Social History Hx Tobacco Use: No Hx Alcohol Use: Yes Hx Substance Use: No - Immunization History Hx Tetanus Toxoid Vaccination: Yes Hx Influenza Vaccination: No Hx Pneumococcal Vaccination: No Review Of Systems Constitutional: Negative for: Fever, Chills Gastrointestinal: Negative for: Nausea, Vomiting, Diarrhea Physical Exam - Physical Exam Appears: Non-toxic, No Acute Distress, Other (ETOH on breath) Skin: Warm, Dry Oral Mucosa: Moist Chest: Symmetrical Cardiovascular: Rhythm Regular Respiratory: No Rales, No Rhonchi, No Wheezing Gastrointestinal/Abdominal: Soft, No Tenderness Neurological/Psych: Oriented x3 ED Course And Treatment O2 Sat by Pulse Oximetry: 98 Pulse Ox Interpretation: Normal Reevaluation Time: 05:02 Reassessment Condition: Improved ED OBSERVATION Discharge: Yes Date of observation admission: 06/30/17 Time of observation admission: 21:43 - Observation admission statement Patient is being placed in observation because:: Acute ETOH intoxication - Goals of Observation Goals of observation are:: Sobriety - Progress Note Progress Note: 06/30/17 21:43 Vitals stable 07/01/17 01:00 no complaints 07/01/17 04:00 vitals stable Disposition Counseled Patient/Family Regarding: Studies Performed, Diagnosis, Need For Followup - Disposition Disposition: HOME/ ROUTINE Disposition Time: 20:58 Condition: FAIR - Clinical Impression Clinical Impression: Alcoholic intoxication - Scribe Statement The provider has reviewed the documentation as recorded by the Scribjosé miguel Ramirez All medical record entries made by the Rominaibjosé miguel were at my direction and personally dictated by me. I have reviewed the chart and agree that the record accurately reflects my personal performance of the history, physical exam, medical decision making, and the department course for this patient. I have also personally directed, reviewed, and agree with the discharge instructions and disposition.
[2017-07-01 02:47] VITALS: PULSE 81
[2017-07-01 05:06] VITALS: BP 129/76; RESP 18; TEMP 97
== END 2017-07-01 05:02 | disposition home or self-care (01) ==
LOC: C.ER 20:33 → C.9OBSV 21:03
PROVIDERS: ADMIT Emergency Medicine; ATTEND Emergency Medicine
DX: F10.129 Alcohol abuse with intoxication, unspecified (principal); E11.9 Type 2 diabetes mellitus without complications; I10 Essential (primary) hypertension; M06.9 Rheumatoid arthritis, unspecified
CPT/HCPCS: 82948; G0378

== ENCOUNTER 2017-07-01 20:47 | Observation (INO) | payer MEDICAID ==
[2017-07-01 21:12] VITALS: RESP 18
--- NOTE | 2017-07-02 00:27 | C.PDOC ---
History Of Present Illness 56 year old male who presents to the ER with acute ETOH intoxication. Denies physical complaints at this time. Chief Complaint (Nursing): Substance Abuse History Per: Patient History/Exam Limitations: no limitations Onset/Duration Of Symptoms: Hrs Current Symptoms Are (Timing): Still Present Suicide/Self Injury Attempted (Context): None Modifying Factor(s): Alcohol Associated Symptoms: denies: Depression, Suicidal Thoughts, Suicidal Plan Involuntary Hold By: None Recent travel outside of the [place]: No Past Medical History Reviewed: Historical Data, Nursing Documentation, Vital Signs Vital Signs: Last Vital Signs Temp 97.8 F 07/02/17 02:44 Pulse 96 H 07/02/17 02:44 Resp 18 07/02/17 02:44 BP 155/80 H 07/02/17 02:44 Pulse Ox 95 07/02/17 02:44 - Medical History PMH: Anxiety, Arthritis, Bronchitis, CAD, Depression, 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 automotive service writer, not aware), Fractures (Rt. Fa.), Gastritis, Gall Bladder Disease (s/p cholecystectomy), HTN, Post Traumatic Stress Disorder, Rheumatoid Arthritis, Seizures, Chronic Pain Surgical History: Cholecystectomy - [facility] Procedures ALCOHOL DETOXIFICATION (07/04/15) APPLICATION OF SPLINT (03/20/13) CLOSURE SKIN & SUBCUTANEOUS NEC (08/14/13) DETOXIFICATION SERVICES FOR SUBSTANCE ABUSE TREATMENT (03/22/16) ESOPHAGOGASTRODUODENOSCOPY [EGD] W/CLOSED BIOPSY (02/16/15) OTHER GROUP THERAPY (03/12/13) PHYSICAL THERAPY NEC (07/04/15) TETANUS TOXOID ADMINIST (01/19/14) Family History: States: Unknown Family Hx - Social History Hx Tobacco Use: No Hx Alcohol Use: Yes Hx Substance Use: No - Immunization History Hx Tetanus Toxoid Vaccination: Yes Hx Influenza Vaccination: No Hx Pneumococcal Vaccination: No Review Of Systems Constitutional: Negative for: Fever, Chills Gastrointestinal: Negative for: Nausea, Vomiting, Diarrhea Physical Exam - Physical Exam Appears: Non-toxic, No Acute Distress, Other (ETOH on breath) Skin: Normal Color, Warm, Dry Head: Atraumatic, Normacephalic Oral Mucosa: Moist Chest: Symmetrical, No Tenderness Cardiovascular: Rhythm Regular, No Murmur Respiratory: Normal Breath Sounds, No Rales, No Rhonchi, No Wheezing Gastrointestinal/Abdominal: Soft, No Tenderness Neurological/Psych: Oriented x3, Normal Speech, Normal Cognition ED Course And Treatment O2 Sat by Pulse Oximetry: 98 (Room air) Pulse Ox Interpretation: Normal ED OBSERVATION Date of observation admission: 07/01/17 Time of observation admission: 21:45 - Observation admission statement Patient is being placed in observation because:: Acute ETOH intoxication - Goals of Observation Goals of observation are:: Sobriety - Progress Note Progress Note: 07/02/17 00:29 Vitals stable Disposition Counseled Patient/Family Regarding: Diagnosis - Disposition Disposition: HOME/ ROUTINE Disposition Time: 05:35 Condition: STABLE - POA Present On Arrival: None - Clinical Impression Clinical Impression: Alcohol intoxication - Scribe Statement The provider has reviewed the documentation as recorded by the Scribjosé miguel Ramirez All medical record entries made by the Rominaibjosé miguel were at my direction and personally dictated by me. I have reviewed the chart and agree that the record accurately reflects my personal performance of the history, physical exam, medical decision making, and the department course for this patient. I have also personally directed, reviewed, and agree with the discharge instructions and disposition.
[2017-07-02 02:44] VITALS: PULSE 96
[2017-07-02 05:40] VITALS: BP 149/73; TEMP 98; O2SAT 95
== END 2017-07-02 05:33 | disposition home or self-care (01) ==
LOC: C.ER 20:47 → C.9OBSV 21:49
PROVIDERS: ADMIT Emergency Medicine; ATTEND Emergency Medicine
DX: F10.229 Alcohol dependence with intoxication, unspecified (principal); F41.9 Anxiety disorder, unspecified; I25.10 Atherosclerotic heart disease of native coronary artery without angina pectoris; I10 Essential (primary) hypertension; F43.10 Post-traumatic stress disorder, unspecified
CPT/HCPCS: 82948; G0378

== ENCOUNTER 2017-07-02 21:41 | Observation (INO) | payer MEDICAID ==
--- NOTE | 2017-07-02 21:53 | C.PDOC ---
History Of Present Illness 56 y/o male brought to ED by EMS after being found in street with unsteady gait and in an acute ETOH intoxication. Patient is well known at ED for prior visits with similar complaints. No other complaints at this time Time Seen by Provider: 07/02/17 21:48 Chief Complaint (Nursing): Substance Abuse History Per: Patient History/Exam Limitations: no limitations Onset/Duration Of Symptoms: Hrs Current Symptoms Are (Timing): Still Present Suicide/Self Injury Attempted (Context): None Modifying Factor(s): Alcohol Past Medical History Reviewed: Historical Data, Nursing Documentation, Vital Signs Vital Signs: Last Vital Signs Temp 97.5 F L 07/03/17 04:15 Pulse 89 07/03/17 04:15 Resp 18 07/03/17 04:15 BP 115/77 07/03/17 04:15 Pulse Ox 95 07/03/17 04:15 - Medical History PMH: Anxiety, Arthritis, Bronchitis, CAD, Depression, 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 mortgage or loan underwriter, not aware), Fractures (Rt. Fa.), Gastritis, Gall Bladder Disease (s/p cholecystectomy), HTN, Post Traumatic Stress Disorder, Rheumatoid Arthritis, Seizures, Chronic Pain Surgical History: Cholecystectomy - [facility] Procedures ALCOHOL DETOXIFICATION (07/04/15) APPLICATION OF SPLINT (03/20/13) CLOSURE SKIN & SUBCUTANEOUS NEC (08/14/13) DETOXIFICATION SERVICES FOR SUBSTANCE ABUSE TREATMENT (03/22/16) ESOPHAGOGASTRODUODENOSCOPY [EGD] W/CLOSED BIOPSY (02/16/15) OTHER GROUP THERAPY (03/12/13) PHYSICAL THERAPY NEC (07/04/15) TETANUS TOXOID ADMINIST (01/19/14) Family History: States: No Known Family Hx - Social History Hx Tobacco Use: No Hx Alcohol Use: Yes Hx Substance Use: No - Immunization History Hx Tetanus Toxoid Vaccination: Yes Hx Influenza Vaccination: No Hx Pneumococcal Vaccination: No Review Of Systems Constitutional: Negative for: Fever, Chills Cardiovascular: Negative for: Chest Pain Respiratory: Negative for: Shortness of Breath Skin: Negative for: Rash Neurological: Negative for: Weakness, Numbness Psych: Negative for: Suicidal ideation Physical Exam - Physical Exam Appears: Other (ETOH on breath) Skin: Warm, Dry, No Rash Head: Atraumatic, Normacephalic Eye(s): bilateral: PERRL, EOMI Nose: No Epistaxis Oral Mucosa: Moist Neck: Normal ROM, Supple Chest: Symmetrical Cardiovascular: Rhythm Regular, No Murmur Respiratory: Normal Breath Sounds, No Rales, No Rhonchi, No Wheezing Gastrointestinal/Abdominal: Soft, No Tenderness, No Guarding, No Rebound Neurological/Psych: Oriented x3 ED Course And Treatment O2 Sat by Pulse Oximetry: 100 (RA) Pulse Ox Interpretation: Normal Medical Decision Making Medical Decision Makinam pt is up and amb w steady gait, a&ox3 ED OBSERVATION Discharge: Yes Date of observation admission: 07/02/17 Time of observation admission: 21:52 - Observation admission statement Patient is being placed in observation because:: ETOH intoxication - Goals of Observation Goals of observation are:: Sobreity - Progress Note Progress Note: 07/02/17 21:52 Vital signs stable Disposition - Disposition Disposition: HOME/ ROUTINE Disposition Time: 05:07 Condition: STABLE - Clinical Impression Clinical Impression: Alcohol intoxication - Scribe Statement The provider has reviewed the documentation as recorded by the Jada Contreras All medical record entries made by the Jada were at my direction and personally dictated by me. I have reviewed the chart and agree that the record accurately reflects my personal performance of the history, physical exam, medical decision making, and the department course for this patient. I have also personally directed, reviewed, and agree with the discharge instructions and disposition.
[2017-07-03 04:17] VITALS: BP 115/77; PULSE 89; RESP 18; TEMP 97.5
[2017-07-03 05:08] VITALS: O2SAT 100
== END 2017-07-03 05:08 | disposition home or self-care (01) ==
LOC: SUPCPDRO 21:41 → C.ER 21:41 → C.9OBSV 22:09
PROVIDERS: ADMIT Emergency Medicine; ATTEND Emergency Medicine
DX: F10.129 Alcohol abuse with intoxication, unspecified (principal); Y90.9 Presence of alcohol in blood, level not specified
CPT/HCPCS: 82948; G0378

== ENCOUNTER 2017-07-03 21:45 | Emergency (ER) | payer MEDICAID ==
--- NOTE | 2017-07-03 22:31 | C.PDOC ---
History Of Present Illness Patient presents to the ER with acute ETOH intoxication. Denies physical complaints at this time. Time Seen by Provider: 07/03/17 22:29 Chief Complaint (Nursing): Substance Abuse History Per: Patient History/Exam Limitations: no limitations Onset/Duration Of Symptoms: Hrs Current Symptoms Are (Timing): Still Present Suicide/Self Injury Attempted (Context): None Modifying Factor(s): Alcohol Associated Symptoms: denies: Depression, Suicidal Thoughts, Suicidal Plan Involuntary Hold By: None Recent travel outside of the [place]: No Past Medical History Reviewed: Historical Data, Nursing Documentation, Vital Signs Vital Signs: Last Vital Signs Temp 98 F 07/04/17 04:59 Pulse 90 07/04/17 04:59 Resp 20 07/04/17 04:59 BP 142/80 07/04/17 04:59 Pulse Ox 97 07/04/17 04:59 - Medical History PMH: Anxiety, Arthritis, Bronchitis, CAD, Depression, 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 investigative writer, not aware), Fractures (Rt. Fa.), Gastritis, Gall Bladder Disease (s/p cholecystectomy), HTN, Post Traumatic Stress Disorder, Rheumatoid Arthritis, Seizures, Chronic Pain Surgical History: Cholecystectomy - [facility] Procedures ALCOHOL DETOXIFICATION (07/04/15) APPLICATION OF SPLINT (03/20/13) CLOSURE SKIN & SUBCUTANEOUS NEC (08/14/13) DETOXIFICATION SERVICES FOR SUBSTANCE ABUSE TREATMENT (03/22/16) ESOPHAGOGASTRODUODENOSCOPY [EGD] W/CLOSED BIOPSY (02/16/15) OTHER GROUP THERAPY (03/12/13) PHYSICAL THERAPY NEC (07/04/15) TETANUS TOXOID ADMINIST (01/19/14) Family History: States: Unknown Family Hx - Social History Hx Tobacco Use: No Hx Alcohol Use: Yes Hx Substance Use: No - Immunization History Hx Tetanus Toxoid Vaccination: Yes Hx Influenza Vaccination: No Hx Pneumococcal Vaccination: No Review Of Systems Constitutional: Negative for: Fever, Chills Gastrointestinal: Negative for: Nausea, Vomiting, Diarrhea Physical Exam - Physical Exam Appears: Non-toxic, No Acute Distress, Other (ETOH on breath) Skin: Warm, Dry Head: Normacephalic Oral Mucosa: Moist Chest: Symmetrical, No Tenderness Cardiovascular: Rhythm Regular Respiratory: No Rales, No Rhonchi, No Wheezing Gastrointestinal/Abdominal: Soft, No Tenderness Neurological/Psych: Oriented x3 ED Course And Treatment O2 Sat by Pulse Oximetry: 97 Pulse Ox Interpretation: Normal Reevaluation Time: 05:04 Reassessment Condition: Improved ED OBSERVATION Discharge: Yes Date of observation admission: 07/03/17 Time of observation admission: 23:04 - Observation admission statement Patient is being placed in observation because:: acute alcohol intoxication - Goals of Observation Goals of observation are:: sobriety - Progress Note Progress Note: 07/03/17 23:08 vitals stable 07/04/17 02:32 arousable 07/04/17 04:32 vitals stable Disposition Counseled Patient/Family Regarding: Studies Performed, Diagnosis - Disposition Referrals: [facility] [Outside] Disposition: HOME/ ROUTINE Disposition Time: 22:30 Condition: FAIR Instructions: Alcohol Intoxication (DC) Forms: [facility] [employer] [facility] (French) - Clinical Impression Clinical Impression: Alcoholism /alcohol abuse, Alcohol abuse with intoxication - Scribe Statement The provider has reviewed the documentation as recorded by the Scribe Fabián Ramirez All medical record entries made by the Scribe were at my direction and personally dictated by me. I have reviewed the chart and agree that the record accurately reflects my personal performance of the history, physical exam, medical decision making, and the department course for this patient. I have also personally directed, reviewed, and agree with the discharge instructions and disposition.
[2017-07-03 22:41] VITALS: RESP 20
[2017-07-04 05:00] VITALS: BP 142/80; PULSE 90; TEMP 98; O2SAT 97
== END 2017-07-04 05:11 | disposition home or self-care (01) ==
LOC: C.ER 21:45
DX: F10.129 Alcohol abuse with intoxication, unspecified (principal); Y90.9 Presence of alcohol in blood, level not specified

== ENCOUNTER 2017-07-04 20:27 | Observation (INO) | payer MEDICAID ==
--- NOTE | 2017-07-04 21:01 | C.PDOC ---
History Of Present Illness Patient presents to the ER with acute ETOH intoxication. He currently offers no medical complaints. Time Seen by Provider: 07/04/17 20:59 Chief Complaint (Nursing): Substance Abuse History Per: Patient History/Exam Limitations: intoxication Onset/Duration Of Symptoms: Hrs Current Symptoms Are (Timing): Still Present Suicide/Self Injury Attempted (Context): None Modifying Factor(s): Alcohol Severity: Mild Pain Scale Rating Of: 3 Associated Symptoms: denies: Suicidal Thoughts, Suicidal Plan Involuntary Hold By: None Recent travel outside of the [place]: No Additional History Per: Patient Past Medical History Reviewed: Historical Data, Nursing Documentation, Vital Signs Vital Signs: Last Vital Signs Temp 98.4 F 07/04/17 20:46 Pulse 84 07/05/17 00:35 Resp 14 07/05/17 00:35 BP 129/73 07/05/17 00:35 Pulse Ox 97 07/05/17 03:24 - Medical History PMH: Anxiety, Arthritis, Bronchitis, CAD, Depression, 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 junior underwriter, not aware), Fractures (Rt. Fa.), Gastritis, Gall Bladder Disease (s/p cholecystectomy), HTN, Post Traumatic Stress Disorder, Rheumatoid Arthritis, Seizures, Chronic Pain Denies: Chronic Kidney Disease Surgical History: Cholecystectomy - [facility] Procedures ALCOHOL DETOXIFICATION (07/04/15) APPLICATION OF SPLINT (03/20/13) CLOSURE SKIN & SUBCUTANEOUS NEC (08/14/13) DETOXIFICATION SERVICES FOR SUBSTANCE ABUSE TREATMENT (03/22/16) ESOPHAGOGASTRODUODENOSCOPY [EGD] W/CLOSED BIOPSY (02/16/15) OTHER GROUP THERAPY (03/12/13) PHYSICAL THERAPY NEC (07/04/15) TETANUS TOXOID ADMINIST (01/19/14) Family History: States: Unknown Family Hx - Social History Hx Tobacco Use: No Hx Alcohol Use: Yes Hx Substance Use: No - Immunization History Hx Tetanus Toxoid Vaccination: Yes Hx Influenza Vaccination: No Hx Pneumococcal Vaccination: No Review Of Systems Constitutional: Negative for: Fever, Chills Cardiovascular: Negative for: Chest Pain Respiratory: Negative for: Shortness of Breath Gastrointestinal: Negative for: Abdominal Pain Psych: Positive for: Other (EtOH intoxication). Negative for: Suicidal ideation Physical Exam - Physical Exam Appears: No Acute Distress, Other (visibly intoxicated) Skin: Warm, Dry Head: Normacephalic Oral Mucosa: Moist, Other (alcohol on breath) Neck: Supple Chest: Symmetrical Cardiovascular: Rhythm Regular Respiratory: No Decreased Breath Sounds, No Accessory Muscle Use Gastrointestinal/Abdominal: Bowel Sounds, Soft, No Tenderness Extremity: No Deformity, No Swelling Neurological/Psych: Oriented x3 Gait: Unsteady ED Course And Treatment O2 Sat by Pulse Oximetry: 97 (RA) Pulse Ox Interpretation: Normal ED OBSERVATION Discharge: Yes Date of observation admission: 07/04/17 Time of observation admission: 21:00 - Observation admission statement Patient is being placed in observation because:: patient acutely intoxicated - Goals of Observation Goals of observation are:: patient awaiting clinical sobriety - Progress Note Progress Note: 07/04/17 21:07 patient resting in room, vitals stable. 07/04/17 23:24 Vitals stable. 07/05/17 02:24 Vitals stable. 07/05/17 04:56 ambulating to the bathroom unassisted Disposition Counseled Patient/Family Regarding: Studies Performed, Diagnosis, Need For Followup - Disposition Disposition: HOME/ ROUTINE Disposition Time: 21:00 Condition: FAIR - Clinical Impression Clinical Impression: Acute alcohol intoxication - Scribe Statement The provider has reviewed the documentation as recorded by the Jada Estrada Provider Attestation: All medical record entries made by the Jada were at my direction and personally dictated by me. I have reviewed the chart and agree that the record accurately reflects my personal performance of the history, physical exam, medical decision making, and the department course for this patient. I have also personally directed, reviewed, and agree with the discharge instructions and disposition.
[2017-07-05 04:57] VITALS: BP 122/70; PULSE 80; RESP 16; TEMP 97.8; O2SAT 97
== END 2017-07-05 05:30 | disposition home or self-care (01) ==
LOC: C.ER 20:27 → C.9OBSV 21:01
PROVIDERS: ADMIT Emergency Medicine; ATTEND Emergency Medicine
DX: F10.129 Alcohol abuse with intoxication, unspecified (principal); I25.10 Atherosclerotic heart disease of native coronary artery without angina pectoris; E11.9 Type 2 diabetes mellitus without complications; Y90.9 Presence of alcohol in blood, level not specified
CPT/HCPCS: 99285; G0378

== ENCOUNTER 2017-07-05 20:49 | Observation (INO) | payer MEDICAID ==
--- NOTE | 2017-07-05 21:51 | C.PDOC ---
History Of Present Illness Patient presents to the ER with acute ETOH intoxication. He denies any suicidal or homicidal ideation and at present, offers no additional medical complaints. Time Seen by Provider: 07/05/17 21:48 Chief Complaint (Nursing): Substance Abuse History Per: Patient History/Exam Limitations: intoxication Onset/Duration Of Symptoms: Days Current Symptoms Are (Timing): Still Present Suicide/Self Injury Attempted (Context): None Modifying Factor(s): Alcohol Severity: Mild Pain Scale Rating Of: 3 Associated Symptoms: denies: Suicidal Thoughts, Suicidal Plan Involuntary Hold By: None Recent travel outside of the [place]: No Additional History Per: Patient Past Medical History Reviewed: Historical Data, Nursing Documentation, Vital Signs Vital Signs: Last Vital Signs Temp 97.5 F L 07/05/17 21:16 Pulse 68 07/06/17 03:40 Resp 20 07/06/17 03:40 BP 139/70 07/06/17 03:40 Pulse Ox 98 07/06/17 05:07 - Medical History PMH: Anxiety, Arthritis, Bronchitis, CAD, Depression, 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 creative services writer, not aware), Fractures (Rt. Fa.), Gastritis, Gall Bladder Disease (s/p cholecystectomy), HTN, Post Traumatic Stress Disorder, Rheumatoid Arthritis, Seizures, Chronic Pain Denies: Chronic Kidney Disease Surgical History: Cholecystectomy - [facility] Procedures ALCOHOL DETOXIFICATION (07/04/15) APPLICATION OF SPLINT (03/20/13) CLOSURE SKIN & SUBCUTANEOUS NEC (08/14/13) DETOXIFICATION SERVICES FOR SUBSTANCE ABUSE TREATMENT (03/22/16) ESOPHAGOGASTRODUODENOSCOPY [EGD] W/CLOSED BIOPSY (02/16/15) OTHER GROUP THERAPY (03/12/13) PHYSICAL THERAPY NEC (07/04/15) TETANUS TOXOID ADMINIST (01/19/14) Family History: States: Unknown Family Hx - Social History Hx Tobacco Use: No Hx Alcohol Use: Yes Hx Substance Use: No - Immunization History Hx Tetanus Toxoid Vaccination: Yes Hx Influenza Vaccination: No Hx Pneumococcal Vaccination: No Review Of Systems Constitutional: Negative for: Fever, Chills Cardiovascular: Negative for: Chest Pain Respiratory: Negative for: Shortness of Breath Gastrointestinal: Negative for: Abdominal Pain Psych: Positive for: Other (EtOH ingestion) Physical Exam - Physical Exam Appears: No Acute Distress, Other (visibly intoxicated) Skin: Warm, Dry Head: Normacephalic Oral Mucosa: Moist, Other (alcohol on breath) Neck: Supple Chest: Symmetrical Cardiovascular: Rhythm Regular Respiratory: No Rales, No Rhonchi, No Wheezing Extremity: No Deformity, No Swelling Neurological/Psych: Oriented x3, Normal Speech, Normal Cognition Gait: Unsteady ED Course And Treatment O2 Sat by Pulse Oximetry: 98 (RA) Pulse Ox Interpretation: Normal ED OBSERVATION Discharge: Yes Date of observation admission: 07/05/17 Time of observation admission: 21:50 - Observation admission statement Patient is being placed in observation because:: acute alcohol intoxication - Goals of Observation Goals of observation are:: sobriety - Progress Note Progress Note: 07/05/17 21:50 vitals stable 07/05/17 23:55 resting in bed, vitals stable. 07/06/17 02:11 Resting in bed, vitals stable. 07/06/17 04:17 Vitals stable. 07/06/17 05:06 Patient awake, alert and oriented x3 with steady gait. Stable for discharge home. Disposition Counseled Patient/Family Regarding: Studies Performed, Diagnosis - Disposition Disposition: HOME/ ROUTINE Disposition Time: 21:49 Condition: FAIR - Clinical Impression Clinical Impression: Chronic alcoholism, Alcohol abuse with intoxication - Scribe Statement The provider has reviewed the documentation as recorded by the Jada Estrada Provider Attestation: All medical record entries made by the Jada were at my direction and personally dictated by me. I have reviewed the chart and agree that the record accurately reflects my personal performance of the history, physical exam, medical decision making, and the department course for this patient. I have also personally directed, reviewed, and agree with the discharge instructions and disposition.
[2017-07-06 04:05] VITALS: RESP 20
[2017-07-06 05:40] VITALS: BP 131/70; PULSE 69; TEMP 97.6; O2SAT 97
== END 2017-07-06 05:14 | disposition home or self-care (01) ==
LOC: C.ER 20:49 → C.9OBSV 21:48
PROVIDERS: ADMIT Emergency Medicine; ATTEND Emergency Medicine
DX: F10.129 Alcohol abuse with intoxication, unspecified (principal); Y90.9 Presence of alcohol in blood, level not specified
CPT/HCPCS: 99284; G0378

== ENCOUNTER 2017-07-06 22:21 | Emergency (ER) | payer MEDICAID ==
[2017-07-06 22:45] VITALS: BP 132/78; PULSE 79; RESP 20; TEMP 98; O2SAT 97
--- NOTE | 2017-07-07 00:26 | C.PDOC ---
History Of Present Illness Pt was BIBEMS due to public alcohol intoxication. Time Seen by Provider: 07/06/17 23:50 Chief Complaint (Nursing): Substance Abuse History Per: Patient, EMS History/Exam Limitations: intoxication Onset/Duration Of Symptoms: Unknown (tonight) Current Symptoms Are (Timing): Still Present Suicide/Self Injury Attempted (Context): None Modifying Factor(s): Alcohol Severity: Severe Associated Symptoms: denies: Suicidal Thoughts, Suicidal Plan Additional History Per: Prior Records Past Medical History Reviewed: Historical Data, Nursing Documentation, Vital Signs Vital Signs: Last Vital Signs Temp 98 F 07/06/17 22:42 Pulse 79 07/06/17 22:42 Resp 20 07/06/17 22:42 BP 132/78 07/06/17 22:42 Pulse Ox 97 07/07/17 00:26 - Medical History PMH: Anxiety, Arthritis, Bronchitis, CAD, Depression, 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 script writer, not aware), Fractures (Rt. Fa.), Gastritis, Gall Bladder Disease (s/p cholecystectomy), HTN, Post Traumatic Stress Disorder, Rheumatoid Arthritis, Seizures, Chronic Pain Other PMH: Alcohol abuse Surgical History: Cholecystectomy - [facility] Procedures ALCOHOL DETOXIFICATION (07/04/15) APPLICATION OF SPLINT (03/20/13) CLOSURE SKIN & SUBCUTANEOUS NEC (08/14/13) DETOXIFICATION SERVICES FOR SUBSTANCE ABUSE TREATMENT (03/22/16) ESOPHAGOGASTRODUODENOSCOPY [EGD] W/CLOSED BIOPSY (02/16/15) OTHER GROUP THERAPY (03/12/13) PHYSICAL THERAPY NEC (07/04/15) TETANUS TOXOID ADMINIST (01/19/14) Family History: States: Unknown Family Hx - Social History Hx Tobacco Use: No Hx Alcohol Use: Yes Hx Substance Use: No - Immunization History Hx Tetanus Toxoid Vaccination: Yes Hx Influenza Vaccination: No Hx Pneumococcal Vaccination: No Review Of Systems Review Of Systems: ROS cannot be obtained secondary to pt's inabilty to answer questions. Physical Exam - Physical Exam Appears: Non-toxic, No Acute Distress, Other (AOB, intoxicated) Skin: Normal Color, Warm, Dry Head: Atraumatic Eye(s): bilateral: PERRL Neck: Normal ROM, No Midline Cervical Tenderness, No Step Off Deformity, Supple Chest: Symmetrical, No Deformity Cardiovascular: Rhythm Regular Respiratory: Normal Breath Sounds, No Accessory Muscle Use Gastrointestinal/Abdominal: Soft Extremity: Normal ROM, No Deformity Neurological/Psych: Eyes Open With Command, Other (Moving all extremities) Gait: Unable To Assess ED Course And Treatment O2 Sat by Pulse Oximetry: 97 Pulse Ox Interpretation: Normal ED OBSERVATION Discharge: Yes Date of observation admission: 07/06/17 Time of observation admission: 23:55 - Observation admission statement Patient is being placed in observation because:: Alcohol intoxication. - Goals of Observation Goals of observation are:: Sobriety. - Progress Note Progress Note: 07/07/17 03:06 Pt is now AAOx3. Steady gait. Clinically sober and is requesting to be discharged. Disposition Counseled Patient/Family Regarding: Diagnosis, Need For Followup - Disposition Referrals: [facility] [Outside] Disposition: HOME/ ROUTINE Disposition Time: 03:07 Condition: IMPROVED Instructions: Abuse of Alcohol (ED) - Clinical Impression Clinical Impression: Alcoholism /alcohol abuse
== END 2017-07-07 03:09 | disposition home or self-care (01) ==
LOC: C.ER 22:21
DX: F10.20 Alcohol dependence, uncomplicated (principal)

== ENCOUNTER 2017-07-07 21:26 | Observation (INO) | payer MEDICAID ==
[2017-07-07 21:35] VITALS: RESP 18; O2SAT 95
--- NOTE | 2017-07-07 22:11 | C.PDOC ---
History Of Present Illness 56 year old male who presents to the ER with acute ETOH intoxication. Denies physical complaints at this time. Chief Complaint (Nursing): Substance Abuse History Per: Patient History/Exam Limitations: no limitations Onset/Duration Of Symptoms: Hrs Current Symptoms Are (Timing): Still Present Suicide/Self Injury Attempted (Context): None Modifying Factor(s): Alcohol Associated Symptoms: denies: Depression, Suicidal Thoughts, Suicidal Plan Involuntary Hold By: None Recent travel outside of the [place]: No Past Medical History Reviewed: Historical Data, Nursing Documentation, Vital Signs Vital Signs: Last Vital Signs Temp 97.6 F 07/07/17 21:33 Pulse 89 07/07/17 21:33 Resp 18 07/07/17 21:33 BP 119/66 07/07/17 21:33 Pulse Ox 95 07/08/17 03:15 - Medical History PMH: Anxiety, Arthritis, Bronchitis, CAD, Depression, 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 technical publications writer, not aware), Fractures (Rt. Fa.), Gastritis, Gall Bladder Disease (s/p cholecystectomy), HTN, Post Traumatic Stress Disorder, Rheumatoid Arthritis, Seizures, Chronic Pain Surgical History: Cholecystectomy - [facility] Procedures ALCOHOL DETOXIFICATION (07/04/15) APPLICATION OF SPLINT (03/20/13) CLOSURE SKIN & SUBCUTANEOUS NEC (08/14/13) DETOXIFICATION SERVICES FOR SUBSTANCE ABUSE TREATMENT (03/22/16) ESOPHAGOGASTRODUODENOSCOPY [EGD] W/CLOSED BIOPSY (02/16/15) OTHER GROUP THERAPY (03/12/13) PHYSICAL THERAPY NEC (07/04/15) TETANUS TOXOID ADMINIST (01/19/14) Family History: States: Unknown Family Hx - Social History Hx Tobacco Use: No Hx Alcohol Use: Yes Hx Substance Use: No - Immunization History Hx Tetanus Toxoid Vaccination: Yes Hx Influenza Vaccination: No Hx Pneumococcal Vaccination: No Review Of Systems Constitutional: Negative for: Fever, Chills Gastrointestinal: Negative for: Nausea, Vomiting, Diarrhea Physical Exam - Physical Exam Appears: Non-toxic, No Acute Distress, Other (ETOH on breath) Skin: Normal Color, Warm, Dry Head: Atraumatic, Normacephalic Oral Mucosa: Moist Chest: Symmetrical, No Tenderness Cardiovascular: Rhythm Regular, No Murmur Respiratory: Normal Breath Sounds, No Rales, No Rhonchi, No Wheezing Gastrointestinal/Abdominal: Soft, No Tenderness Extremity: Normal ROM (x4) Neurological/Psych: Oriented x3, Normal Speech, Normal Cognition ED Course And Treatment O2 Sat by Pulse Oximetry: 95 (Room air) Pulse Ox Interpretation: Normal ED OBSERVATION Date of observation admission: 07/07/17 Time of observation admission: 21:30 - Observation admission statement Patient is being placed in observation because:: Acute ETOH intoxication - Goals of Observation Goals of observation are:: Sobriety - Progress Note Progress Note: 07/08/17 00:15 Vitals stable. Disposition - Disposition Disposition: HOME/ ROUTINE Disposition Time: 03:17 Condition: STABLE - POA Present On Arrival: None - Clinical Impression Clinical Impression: Alcohol intoxication - Scribe Statement The provider has reviewed the documentation as recorded by the Scribjosé miguel Ramirez All medical record entries made by the Rominaibjosé miguel were at my direction and personally dictated by me. I have reviewed the chart and agree that the record accurately reflects my personal performance of the history, physical exam, medical decision making, and the department course for this patient. I have also personally directed, reviewed, and agree with the discharge instructions and disposition.
[2017-07-08 03:18] VITALS: BP 127/89; PULSE 81; TEMP 98
== END 2017-07-08 03:15 | disposition home or self-care (01) ==
LOC: SUPCPDRO 21:26 → C.ER 21:26 → C.9OBSV 22:38
PROVIDERS: ADMIT Emergency Medicine; ATTEND Emergency Medicine
DX: F10.129 Alcohol abuse with intoxication, unspecified (principal); I25.10 Atherosclerotic heart disease of native coronary artery without angina pectoris; E11.9 Type 2 diabetes mellitus without complications; Y90.9 Presence of alcohol in blood, level not specified
CPT/HCPCS: 99283; G0378

== ENCOUNTER 2017-07-08 23:04 | Emergency (ER) | payer MEDICAID ==
[2017-07-08 23:36] VITALS: TEMP 97.5
--- NOTE | 2017-07-08 23:44 | C.PDOC ---
History Of Present Illness Patient presents to the ER via EMS after being found intoxicated in public. Denies physical complaints at this time. Time Seen by Provider: 07/08/17 23:42 Chief Complaint (Nursing): Substance Abuse History Per: Patient, EMS History/Exam Limitations: no limitations Onset/Duration Of Symptoms: Hrs Current Symptoms Are (Timing): Still Present Suicide/Self Injury Attempted (Context): None Modifying Factor(s): Alcohol Severity: None Pain Scale Rating Of: 0 Associated Symptoms: denies: Depression, Suicidal Thoughts, Suicidal Plan Involuntary Hold By: None Recent travel outside of the [place]: No Past Medical History Reviewed: Historical Data, Nursing Documentation, Vital Signs Vital Signs: Last Vital Signs Temp 97.5 F L 07/08/17 23:29 Pulse 79 07/09/17 05:30 Resp 18 07/09/17 05:30 BP 127/88 07/09/17 05:30 Pulse Ox 98 07/09/17 05:30 - Medical History PMH: Anxiety, Arthritis, Bronchitis, CAD, Depression, 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 commercial underwriter, not aware), Fractures (Rt. Fa.), Gastritis, Gall Bladder Disease (s/p cholecystectomy), HTN, Post Traumatic Stress Disorder, Rheumatoid Arthritis, Seizures, Chronic Pain Surgical History: Cholecystectomy - [facility] Procedures ALCOHOL DETOXIFICATION (07/04/15) APPLICATION OF SPLINT (03/20/13) CLOSURE SKIN & SUBCUTANEOUS NEC (08/14/13) DETOXIFICATION SERVICES FOR SUBSTANCE ABUSE TREATMENT (03/22/16) ESOPHAGOGASTRODUODENOSCOPY [EGD] W/CLOSED BIOPSY (02/16/15) OTHER GROUP THERAPY (03/12/13) PHYSICAL THERAPY NEC (07/04/15) TETANUS TOXOID ADMINIST (01/19/14) Family History: States: No Known Family Hx - Social History Hx Tobacco Use: No Hx Alcohol Use: Yes Hx Substance Use: No - Immunization History Hx Tetanus Toxoid Vaccination: Yes Hx Influenza Vaccination: No Hx Pneumococcal Vaccination: No Review Of Systems Constitutional: Negative for: Fever, Chills Gastrointestinal: Negative for: Nausea, Vomiting, Diarrhea Physical Exam - Physical Exam Appears: Non-toxic, Other (ETOH on breath) Skin: Warm, Dry Head: Normacephalic Oral Mucosa: Moist Chest: Symmetrical, No Tenderness Cardiovascular: Rhythm Regular Respiratory: No Rales, No Rhonchi, No Wheezing Gastrointestinal/Abdominal: Soft, No Tenderness Neurological/Psych: Oriented x3 ED Course And Treatment O2 Sat by Pulse Oximetry: 95 ED OBSERVATION Discharge: Yes Date of observation admission: 07/08/17 Time of observation admission: 23:43 - Observation admission statement Patient is being placed in observation because:: acute alcohol intoxication - Goals of Observation Goals of observation are:: sobriety - Progress Note Progress Note: 07/08/17 23:44 vitals stable Disposition Counseled Patient/Family Regarding: Studies Performed, Diagnosis, Need For Followup - Disposition Referrals: [facility] at [facility] [Outside] Disposition: HOME/ ROUTINE Disposition Time: 23:43 Condition: FAIR Instructions: Alcohol Intoxication (DC) Forms: VCV (Chinese) - Clinical Impression Clinical Impression: Alcohol intoxication - Scribe Statement The provider has reviewed the documentation as recorded by the Scribjosé miguel Ramirez All medical record entries made by the Scribe were at my direction and personally dictated by me. I have reviewed the chart and agree that the record accurately reflects my personal performance of the history, physical exam, medical decision making, and the department course for this patient. I have also personally directed, reviewed, and agree with the discharge instructions and disposition.
[2017-07-09 04:05] VITALS: RESP 18
[2017-07-09 06:31] VITALS: BP 127/88; PULSE 79
[2017-07-09 06:52] VITALS: O2SAT 95
== END 2017-07-09 05:35 | disposition home or self-care (01) ==
LOC: C.ER 23:04
DX: F10.129 Alcohol abuse with intoxication, unspecified (principal); E11.9 Type 2 diabetes mellitus without complications

== ENCOUNTER 2017-07-09 23:01 | Emergency (ER) | payer MEDICAID ==
--- NOTE | 2017-07-09 23:11 | C.PDOC ---
History Of Present Illness Patient presents to the ED with acute alcohol intoxication for an unknown duration. Patient is familiar to the ED and has had many prior visits concerning alcohol intoxication. Patient has no physical complaints at this time. History Per: Patient History/Exam Limitations: intoxication Onset/Duration Of Symptoms: Unknown Current Symptoms Are (Timing): Still Present Suicide/Self Injury Attempted (Context): None Modifying Factor(s): Alcohol Severity: None Pain Scale Rating Of: 0 Associated Symptoms: denies: Suicidal Thoughts, Suicidal Plan Involuntary Hold By: None Recent travel outside of the [place]: No Additional History Per: Patient Past Medical History Reviewed: Historical Data, Nursing Documentation, Vital Signs Vital Signs: Last Vital Signs Temp 97.5 F L 07/10/17 03:51 Pulse 83 07/10/17 03:51 Resp 18 07/10/17 03:51 BP 142/87 07/10/17 03:51 Pulse Ox 96 07/10/17 03:51 - Medical History PMH: Anxiety, Arthritis, Bronchitis, CAD, Depression, 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 aware), Fractures (Rt. Fa.), Gastritis, Gall Bladder Disease (s/p cholecystectomy), HTN, Post Traumatic Stress Disorder, Rheumatoid Arthritis, Seizures, Chronic Pain Denies: Chronic Kidney Disease Surgical History: Cholecystectomy - [facility] Procedures ALCOHOL DETOXIFICATION (07/04/15) APPLICATION OF SPLINT (03/20/13) CLOSURE SKIN & SUBCUTANEOUS NEC (08/14/13) DETOXIFICATION SERVICES FOR SUBSTANCE ABUSE TREATMENT (03/22/16) ESOPHAGOGASTRODUODENOSCOPY [EGD] W/CLOSED BIOPSY (02/16/15) OTHER GROUP THERAPY (03/12/13) PHYSICAL THERAPY NEC (07/04/15) TETANUS TOXOID ADMINIST (01/19/14) Family History: States: Unknown Family Hx - Social History Hx Tobacco Use: No Hx Alcohol Use: Yes Hx Substance Use: No - Immunization History Hx Tetanus Toxoid Vaccination: Yes Hx Influenza Vaccination: No Hx Pneumococcal Vaccination: No Review Of Systems Constitutional: Positive for: Other (+ETOH intoxication). Negative for: Fever, Chills Cardiovascular: Negative for: Chest Pain, Palpitations Respiratory: Negative for: Cough, Shortness of Breath Gastrointestinal: Negative for: Nausea, Vomiting, Abdominal Pain Skin: Negative for: Rash, Lesions, Jaundice, Bruising Neurological: Negative for: Weakness, Numbness Psych: Negative for: Suicidal ideation Physical Exam - Physical Exam Appears: No Acute Distress, Other (visibly intoxicated ) Skin: Warm, Dry Head: Normacephalic Eye(s): bilateral: Normal Inspection Oral Mucosa: Moist, Other (alcohol on breath ) Neck: Supple Chest: Symmetrical Cardiovascular: Rhythm Regular Respiratory: No Rales, No Rhonchi, No Wheezing Extremity: Normal ROM, Capillary Refill (less than 2 seconds ) Neurological/Psych: Other (arousable to touch and verbal stimuli ) Gait: Unsteady ED Course And Treatment O2 Sat by Pulse Oximetry: 96 Pulse Ox Interpretation: Normal Reevaluation Time: 05:19 Reassessment Condition: Improved ED OBSERVATION Discharge: Yes Date of observation admission: 07/09/17 Time of observation admission: 23:53 - Observation admission statement Patient is being placed in observation because:: acute alcohol intoxication - Goals of Observation Goals of observation are:: sobriety - Progress Note Progress Note: 07/09/17 23:53 vitals stable 07/10/17 02:20 arousable 07/10/17 05:00 vitals stable Disposition Counseled Patient/Family Regarding: Studies Performed, Diagnosis, Need For Followup - Disposition Referrals: [facility] [place] [Outside] Disposition: HOME/ ROUTINE Disposition Time: 23:10 Condition: FAIR Instructions: Alcohol Intoxication (DC) - Clinical Impression Clinical Impression: Alcohol intoxication, Alcoholism /alcohol abuse - Scribe Statement The provider has reviewed the documentation as recorded by the Scribe (Kari Fajardo) Provider Attestation: All medical record entries made by the Scribe were at my direction and personally dictated by me. I have reviewed the chart and agree that the record accurately reflects my personal performance of the history, physical exam, medical decision making, and the department course for this patient. I have also personally directed, reviewed, and agree with the discharge instructions and disposition.
--- NOTE | 2017-07-09 23:12 | C.PDOC ---
History Of Present Illness Patient presents to the ED with acute alcohol intoxication for an unknown duration. Patient is familiar to the ED and has had many prior visits concerning alcohol intoxication. Patient has no physical complaints at this time. History Per: Patient History/Exam Limitations: intoxication Onset/Duration Of Symptoms: Hrs Current Symptoms Are (Timing): Still Present Suicide/Self Injury Attempted (Context): None Modifying Factor(s): Alcohol Severity: Mild Pain Scale Rating Of: 3 Associated Symptoms: denies: Suicidal Thoughts, Suicidal Plan Involuntary Hold By: None Recent travel outside of the [place]: No Additional History Per: Patient Past Medical History Reviewed: Historical Data, Nursing Documentation, Vital Signs - Medical History PMH: Anxiety, Arthritis, Bronchitis, CAD, Depression, 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 racebook writer, not aware), Fractures (Rt. Fa.), Gastritis, Gall Bladder Disease (s/p cholecystectomy), HTN, Post Traumatic Stress Disorder, Rheumatoid Arthritis, Seizures, Chronic Pain Denies: Chronic Kidney Disease Surgical History: Cholecystectomy - [facility] Procedures ALCOHOL DETOXIFICATION (07/04/15) APPLICATION OF SPLINT (03/20/13) CLOSURE SKIN & SUBCUTANEOUS NEC (08/14/13) DETOXIFICATION SERVICES FOR SUBSTANCE ABUSE TREATMENT (03/22/16) ESOPHAGOGASTRODUODENOSCOPY [EGD] W/CLOSED BIOPSY (02/16/15) OTHER GROUP THERAPY (03/12/13) PHYSICAL THERAPY NEC (07/04/15) TETANUS TOXOID ADMINIST (01/19/14) Family History: States: Unknown Family Hx - Social History Hx Tobacco Use: No Hx Alcohol Use: Yes Hx Substance Use: No - Immunization History Hx Tetanus Toxoid Vaccination: Yes Hx Influenza Vaccination: No Hx Pneumococcal Vaccination: No Review Of Systems Constitutional: Positive for: Other (+ETOH intoxication ). Negative for: Fever , Chills Cardiovascular: Negative for: Chest Pain, Palpitations Respiratory: Negative for: Shortness of Breath Gastrointestinal: Negative for: Nausea, Vomiting Skin: Negative for: Rash, Lesions, Jaundice, Bruising Neurological: Negative for: Weakness, Numbness Psych: Negative for: Suicidal ideation Physical Exam - Physical Exam Appears: No Acute Distress, Other (visibly intoxicated ) Skin: Warm, Dry Head: Normacephalic Eye(s): bilateral: Normal Inspection Oral Mucosa: Moist, Other (alcohol on breath ) Neck: Supple Chest: Symmetrical Cardiovascular: Rhythm Regular Respiratory: No Rales, No Rhonchi, No Wheezing Extremity: Normal ROM Neurological/Psych: Other (arousable to touch and verbal stimuli ) Gait: Unsteady ED OBSERVATION Date of observation admission: 07/09/17 - Observation admission statement Patient is being placed in observation because:: acute alcohol intoxication - Goals of Observation Goals of observation are:: sobriety - Scribe Statement The provider has reviewed the documentation as recorded by the Scribe (Kari Fajardo) Provider Attestation: All medical record entries made by the Scribe were at my direction and personally dictated by me. I have reviewed the chart and agree that the record accurately reflects my personal performance of the history, physical exam, medical decision making, and the department course for this patient. I have also personally directed, reviewed, and agree with the discharge instructions and disposition.
[2017-07-09 23:14] VITALS: RESP 18
[2017-07-10 03:51] VITALS: O2SAT 96
[2017-07-10 05:36] VITALS: BP 135/79; PULSE 78; TEMP 98
== END 2017-07-10 05:38 | disposition home or self-care (01) ==
LOC: C.ER 23:01 → SUPCPDRO 23:01 → C.ER 07-10 05:38
DX: F10.229 Alcohol dependence with intoxication, unspecified (principal); Y90.9 Presence of alcohol in blood, level not specified

== ENCOUNTER 2017-07-10 20:18 | Observation (INO) | payer MEDICAID ==
[2017-07-10 20:46] VITALS: O2SAT 96
--- NOTE | 2017-07-10 20:51 | C.PDOC ---
History Of Present Illness 56 y/o male presents to ED for acute EtOH intoxication. Denies trauma or any injuries. No other medical complaints upon arrival. Patient well known to ED staff with many prior similar presentations. Chief Complaint (Nursing): Substance Abuse History Per: Patient History/Exam Limitations: no limitations Onset/Duration Of Symptoms: Days Current Symptoms Are (Timing): Still Present Modifying Factor(s): Alcohol Recent travel outside of the [place]: No Past Medical History Reviewed: Historical Data, Nursing Documentation, Vital Signs Vital Signs: Last Vital Signs Temp 98.2 F 07/11/17 04:08 Pulse 72 07/11/17 04:08 Resp 20 07/11/17 04:08 BP 123/78 07/11/17 04:08 Pulse Ox 96 07/11/17 04:08 - Medical History PMH: Anxiety, Arthritis, Bronchitis, CAD, Depression, 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 Fa.), Gastritis, Gall Bladder Disease (s/p cholecystectomy), HTN, Post Traumatic Stress Disorder, Rheumatoid Arthritis, Seizures, Chronic Pain Surgical History: Cholecystectomy - [facility] Procedures ALCOHOL DETOXIFICATION (07/04/15) APPLICATION OF SPLINT (03/20/13) CLOSURE SKIN & SUBCUTANEOUS NEC (08/14/13) DETOXIFICATION SERVICES FOR SUBSTANCE ABUSE TREATMENT (03/22/16) ESOPHAGOGASTRODUODENOSCOPY [EGD] W/CLOSED BIOPSY (02/16/15) OTHER GROUP THERAPY (03/12/13) PHYSICAL THERAPY NEC (07/04/15) TETANUS TOXOID ADMINIST (01/19/14) Family History: States: Unknown Family Hx - Social History Hx Tobacco Use: No Hx Alcohol Use: Yes Hx Substance Use: No - Immunization History Hx Tetanus Toxoid Vaccination: Yes Hx Influenza Vaccination: No Hx Pneumococcal Vaccination: No Review Of Systems Except As Marked, All Systems Reviewed And Found Negative. Constitutional: Negative for: Fever, Chills Cardiovascular: Negative for: Chest Pain Respiratory: Negative for: Cough, Shortness of Breath, Wheezing Gastrointestinal: Negative for: Nausea, Vomiting, Abdominal Pain Skin: Negative for: Rash Physical Exam - Physical Exam Appears: Non-toxic, No Acute Distress Skin: Normal Color, Warm, Dry Head: Atraumatic, Normacephalic Chest: Symmetrical Cardiovascular: Rhythm Regular Respiratory: Normal Breath Sounds, No Rales, No Rhonchi, No Wheezing Gastrointestinal/Abdominal: Soft, No Tenderness, No Guarding, No Rebound Back: Normal Inspection Extremity: Normal ROM, Capillary Refill (< 2 sec.) Neurological/Psych: Oriented x3, Normal Speech, Normal Cognition ED Course And Treatment O2 Sat by Pulse Oximetry: 96 (RA) Pulse Ox Interpretation: Normal Disposition Counseled Patient/Family Regarding: Diagnosis - Disposition Disposition: HOME/ ROUTINE Disposition Time: 05:45 Condition: GOOD - Clinical Impression Clinical Impression: Alcohol intoxication - Scribe Statement The provider has reviewed the documentation as recorded by the Scribe SM All medical record entries made by the Scribe were at my direction and personally dictated by me. I have reviewed the chart and agree that the record accurately reflects my personal performance of the history, physical exam, medical decision making, and the department course for this patient. I have also personally directed, reviewed, and agree with the discharge instructions and disposition.
[2017-07-11 04:09] VITALS: BP 123/78; PULSE 72; RESP 20; TEMP 98.2
== END 2017-07-11 06:00 | disposition home or self-care (01) ==
LOC: C.ER 20:18 → C.9OBSV 21:02
PROVIDERS: ADMIT Emergency Medicine; ATTEND Emergency Medicine
DX: F10.120 Alcohol abuse with intoxication, uncomplicated (principal); Y90.8 Blood alcohol level of 240 mg/100 ml or more; E11.9 Type 2 diabetes mellitus without complications; I25.10 Atherosclerotic heart disease of native coronary artery without angina pectoris; I10 Essential (primary) hypertension
CPT/HCPCS: G0378 ×2

== ENCOUNTER 2017-07-11 21:26 | Observation (INO) | payer MEDICAID ==
--- NOTE | 2017-07-11 21:40 | C.PDOC ---
History Of Present Illness 56 y/o male presents to the ED s/p four witnessed seizures which occurred prior to arrival. Patient was witnessed by bystanders to have two seizures, and had two more en route with EMS. Symptoms have now resolved. Patient states he has not drank all day. Additional history limited secondary to patient's clinical condition. LIMITED DUE TO CLIN COND S/P WITNESSED SZ X 4 WET SANDER. WITNESSED BY BYSTANDERS TO HAVE 2, HAD 2 EN ROUTE W EMS. NOW RESOLVED. PT SAID HASNT DRANK ALL DAY EXAM NARD NONTOXIC HEENT +TONGUE TRAUMA NO ACTIVE BLEED NEURO NO ACTIVE SZ PSYCH MILD ACUTE INTOX Time Seen by Provider: 07/11/17 21:38 Chief Complaint (Nursing): Seizure History Per: Patient, EMS History/Exam Limitations: clinical condition Recent Seizure Activity Began: Just Before Arrival Number Of Seizures: Multiple (4) Length Of Seizures (Duration): Unknown Additional History Per: Patient, EMS Past Medical History Reviewed: Historical Data, Nursing Documentation, Vital Signs Vital Signs: Last Vital Signs Temp 98.4 F 07/12/17 04:50 Pulse 87 07/12/17 04:50 Resp 20 07/12/17 04:50 BP 131/89 07/12/17 04:50 Pulse Ox 95 07/12/17 04:50 - Medical History PMH: Anxiety, Arthritis, Bronchitis, CAD, Depression, 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 public relations writer, not aware), Fractures (Rt. Fa.), Gastritis, Gall Bladder Disease (s/p cholecystectomy), HTN, Post Traumatic Stress Disorder, Rheumatoid Arthritis, Seizures, Chronic Pain Denies: Chronic Kidney Disease Surgical History: Cholecystectomy - [facility] Procedures ALCOHOL DETOXIFICATION (07/04/15) APPLICATION OF SPLINT (03/20/13) CLOSURE SKIN & SUBCUTANEOUS NEC (08/14/13) DETOXIFICATION SERVICES FOR SUBSTANCE ABUSE TREATMENT (03/22/16) ESOPHAGOGASTRODUODENOSCOPY [EGD] W/CLOSED BIOPSY (02/16/15) OTHER GROUP THERAPY (03/12/13) PHYSICAL THERAPY NEC (07/04/15) TETANUS TOXOID ADMINIST (01/19/14) Family History: States: Unknown Family Hx - Social History Hx Tobacco Use: No Hx Alcohol Use: Yes Hx Substance Use: No - Immunization History Hx Tetanus Toxoid Vaccination: Yes Hx Influenza Vaccination: No Hx Pneumococcal Vaccination: No Review Of Systems Neurological: Positive for: Seizures Physical Exam - Physical Exam Appears: Non-toxic, Other (no acute respiratory distress ) Skin: Normal Color, Warm, Dry Head: Atraumatic, Normacephalic Eye(s): bilateral: Normal Inspection Ear(s): Bilateral: Normal Nose: Normal, No Discharge Oral Mucosa: Moist Tongue: Other (trauma. no active bleeding) Neck: Supple Chest: Symmetrical, No Deformity, No Tenderness Cardiovascular: Rhythm Regular, No Murmur Respiratory: Normal Breath Sounds, No Rales, No Rhonchi, No Wheezing Extremity: Normal ROM, Capillary Refill (less than 2 seconds ) Neurological/Psych: Other (no active seizure. mild acute intoxication ) ED Course And Treatment - Laboratory Results Result Diagrams: 07/11/17 22:18 07/11/17 22:18 O2 Sat by Pulse Oximetry: 94 (on RA) Pulse Ox Interpretation: Normal Progress Note: labs ordered and reviewed. Patient received Ativan IVP and IV Fluids. Progress - Data Reviewed Data Reviewed: Lab, Old records ED OBSERVATION Discharge: Yes Date of observation admission: 07/11/17 Time of observation admission: 21:30 - Observation admission statement Patient is being placed in observation because:: BREAKTHROUGH SZ; ETOH ABUSE - Goals of Observation Goals of observation are:: SOBRIETY, NEURO INTACT - Progress Note Progress Note: 07/12/17 05:55 CLEAR SPEECH AND STEADY GAIT. NO S/S ACUT EINTOX. NO SZ DURING ER EVAL Disposition Counseled Patient/Family Regarding: Studies Performed, Diagnosis - Disposition Disposition: HOME/ ROUTINE Disposition Time: 04:45 Condition: IMPROVED - Clinical Impression Clinical Impression: Alcoholism /alcohol abuse, Breakthrough seizure - Scribe Statement The provider has reviewed the documentation as recorded by the Scribe (Kari Fajardo) Provider Attestation: All medical record entries made by the Scribe were at my direction and personally dictated by me. I have reviewed the chart and agree that the record accurately reflects my personal performance of the history, physical exam, medical decision making, and the department course for this patient. I have also personally directed, reviewed, and agree with the discharge instructions and disposition.
[2017-07-11] MEDS ORDERED: Sodium Chloride 0.9% 1,000 ML IV ONE (21:46)
[2017-07-11] MEDS ORDERED: Sodium Chloride 0.9% 1,000 ML ONE (22:01)
[2017-07-11 22:23] LABS: HEMATOCRIT 33.1 % (35.0-51.0); MEAN CELL VOLUME 105.6 fL (80.0-94.0); MEAN CORPUSCULAR HEMOGLOBIN 35.8 pg (27.0-31.0); MEAN CORPUSCULAR HGB CONC 33.9 g/dL (33.0-37.0); MEAN PLATELET VOLUME 8.3 fL (7.2-11.7); RED CELL DISTRIBUTION WIDTH 14.4 % (11.5-14.5); WHITE BLOOD COUNT 4.8 K/uL (4.8-10.8)
[2017-07-11 22:33] LABS: CHLORIDE 105 mmol/L (98-107); POTASSIUM 3.3 mmol/L (3.6-5.2); SODIUM 145 mmol/L (132-148)
[2017-07-11 22:35] LABS: GFR AFRICAN-AMERICAN > 60
[2017-07-11 22:36] LABS: BLOOD UREA NITROGEN 7 mg/dL (9-20); CALCIUM 8.5 mg/dl (8.6-10.4); CARBON DIOXIDE 22 mmol/L (22-30); GLUCOSE,RANDOM 100 mg/dL (75-110)
[2017-07-12 05:54] VITALS: BP 131/89; PULSE 87; RESP 20; TEMP 98.4
[2017-07-12 05:56] VITALS: O2SAT 94
== END 2017-07-12 05:56 | disposition home or self-care (01) ==
LOC: C.ER 21:26 → C.9OBSV 21:30
PROVIDERS: ADMIT Emergency Medicine; ATTEND Emergency Medicine
DX: R56.9 Unspecified convulsions (principal); F10.20 Alcohol dependence, uncomplicated
CPT/HCPCS: 36415; 80048; 80320; 85027; 96361; 96374; 99285; G0378

== ENCOUNTER 2017-07-12 20:10 | Observation (INO) | payer MEDICAID ==
[2017-07-12 20:38] VITALS: TEMP 98.2
--- NOTE | 2017-07-12 20:58 | C.PDOC ---
History Of Present Illness Patient presents to the ED seeking a place to sleep. Patient has EtOH on breath and denies any physical complaints, suicidal, or homicidal ideations. Time Seen by Provider: 07/12/17 20:58 Chief Complaint (Nursing): Substance Abuse History Per: Patient History/Exam Limitations: no limitations Suicide/Self Injury Attempted (Context): None Modifying Factor(s): Alcohol Severity: None Pain Scale Rating Of: 0 Associated Symptoms: denies: Suicidal Thoughts, Suicidal Plan Involuntary Hold By: None Recent travel outside of the [place]: No Past Medical History Reviewed: Historical Data, Nursing Documentation, Vital Signs Vital Signs: Last Vital Signs Temp 98.2 F 07/12/17 20:35 Pulse 82 07/13/17 04:34 Resp 16 07/13/17 04:34 BP 137/79 07/13/17 04:34 Pulse Ox 97 07/13/17 04:34 - Medical History PMH: Anxiety, Arthritis, Bronchitis, CAD, Depression, 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 mortgage or loan underwriter, not aware), Fractures (Rt. Fa.), Gastritis, Gall Bladder Disease (s/p cholecystectomy), HTN, Post Traumatic Stress Disorder, Rheumatoid Arthritis, Seizures, Chronic Pain Surgical History: Cholecystectomy - [facility] Procedures ALCOHOL DETOXIFICATION (07/04/15) APPLICATION OF SPLINT (03/20/13) CLOSURE SKIN & SUBCUTANEOUS NEC (08/14/13) DETOXIFICATION SERVICES FOR SUBSTANCE ABUSE TREATMENT (03/22/16) ESOPHAGOGASTRODUODENOSCOPY [EGD] W/CLOSED BIOPSY (02/16/15) OTHER GROUP THERAPY (03/12/13) PHYSICAL THERAPY NEC (07/04/15) TETANUS TOXOID ADMINIST (01/19/14) Family History: States: Unknown Family Hx - Social History Hx Tobacco Use: No Hx Alcohol Use: Yes Hx Substance Use: No - Immunization History Hx Tetanus Toxoid Vaccination: Yes Hx Influenza Vaccination: No Hx Pneumococcal Vaccination: No Review Of Systems Constitutional: Negative for: Fever, Chills Cardiovascular: Negative for: Chest Pain, Palpitations Respiratory: Negative for: Cough, Shortness of Breath Gastrointestinal: Negative for: Nausea, Vomiting, Abdominal Pain Psych: Negative for: Suicidal ideation Physical Exam - Physical Exam Appears: Non-toxic, No Acute Distress, Other (EtOH on breath ) Skin: Warm, Dry Head: Atraumatic Eye(s): bilateral: Normal Inspection Oral Mucosa: Moist Neck: Supple Chest: Symmetrical, No Deformity Cardiovascular: Rhythm Regular, No Murmur Respiratory: No Rales, No Rhonchi, No Wheezing Gastrointestinal/Abdominal: Soft, No Tenderness Extremity: Normal ROM, No Tenderness Neurological/Psych: Oriented x3 ED Course And Treatment O2 Sat by Pulse Oximetry: 96 (room air ) Pulse Ox Interpretation: Normal Reevaluation Time: 05:16 Reassessment Condition: Improved ED OBSERVATION Date of observation admission: 07/12/17 Time of observation admission: 21:00 - Observation admission statement Patient is being placed in observation because:: acute alcohol intoxication - Goals of Observation Goals of observation are:: sobriety - Progress Note Progress Note: 07/12/17 21:00 vitals stable 07/13/17 00:02 no complaints 07/13/17 02:02 vitals stable 07/13/17 05:16 ambulating unassisted to the bathroom Disposition Counseled Patient/Family Regarding: Studies Performed, Diagnosis - Disposition Disposition: HOME/ ROUTINE Disposition Time: 20:58 Condition: FAIR - Clinical Impression Clinical Impression: Alcohol intoxication - Scribe Statement The provider has reviewed the documentation as recorded by the Scribe Tiffany Noel All medical record entries made by the Scribe were at my direction and personally dictated by me. I have reviewed the chart and agree that the record accurately reflects my personal performance of the history, physical exam, medical decision making, and the department course for this patient. I have also personally directed, reviewed, and agree with the discharge instructions and disposition. Decision To Admit - . Patient Diagnosis: Acute alcohol intoxication, Chronic alcoholism
[2017-07-13 04:35] VITALS: BP 137/79; PULSE 82; RESP 16
[2017-07-13 05:17] VITALS: O2SAT 96
== END 2017-07-13 05:17 | disposition home or self-care (01) ==
LOC: C.ER 20:10 → C.9OBSV 20:59
PROVIDERS: ADMIT Emergency Medicine; ATTEND Emergency Medicine
DX: F10.229 Alcohol dependence with intoxication, unspecified (principal); E11.9 Type 2 diabetes mellitus without complications; I25.10 Atherosclerotic heart disease of native coronary artery without angina pectoris; I10 Essential (primary) hypertension

== ENCOUNTER 2017-07-15 20:54 | Emergency (ER) | payer MEDICAID ==
--- NOTE | 2017-07-16 03:01 | C.PDOC ---
History Of Present Illness 56 year old male presents to the ED seeking a place to stay. Patient admits to drinking alcohol today and denies any physical complaints, suicidal, or homicidal ideations. Chief Complaint (Nursing): Substance Abuse History Per: Patient History/Exam Limitations: no limitations Suicide/Self Injury Attempted (Context): None Modifying Factor(s): Alcohol Severity: None Pain Scale Rating Of: 0 Associated Symptoms: denies: Suicidal Thoughts, Suicidal Plan Involuntary Hold By: None Recent travel outside of the [place]: No Additional History Per: Prior Records Past Medical History Reviewed: Historical Data, Nursing Documentation, Vital Signs Vital Signs: Last Vital Signs Temp 97.6 F 07/16/17 06:02 Pulse 83 07/16/17 06:02 Resp 20 07/16/17 06:02 BP 128/74 07/16/17 06:02 Pulse Ox 96 07/16/17 06:02 - Medical History PMH: Anxiety, Arthritis, Bronchitis, CAD, Depression, 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 aware), Fractures (Rt. Fa.), Gastritis, Gall Bladder Disease (s/p cholecystectomy), HTN, Post Traumatic Stress Disorder, Rheumatoid Arthritis, Seizures, Chronic Pain Surgical History: Cholecystectomy - [facility] Procedures ALCOHOL DETOXIFICATION (07/04/15) APPLICATION OF SPLINT (03/20/13) CLOSURE SKIN & SUBCUTANEOUS NEC (08/14/13) DETOXIFICATION SERVICES FOR SUBSTANCE ABUSE TREATMENT (03/22/16) ESOPHAGOGASTRODUODENOSCOPY [EGD] W/CLOSED BIOPSY (02/16/15) OTHER GROUP THERAPY (03/12/13) PHYSICAL THERAPY NEC (07/04/15) TETANUS TOXOID ADMINIST (01/19/14) Family History: States: Unknown Family Hx - Social History Hx Tobacco Use: No Hx Alcohol Use: Yes Hx Substance Use: No - Immunization History Hx Tetanus Toxoid Vaccination: Yes Hx Influenza Vaccination: No Hx Pneumococcal Vaccination: No Review Of Systems Constitutional: Negative for: Fever, Chills Cardiovascular: Negative for: Chest Pain, Palpitations Respiratory: Negative for: Cough, Shortness of Breath Gastrointestinal: Negative for: Nausea, Vomiting, Abdominal Pain, Diarrhea Psych: Negative for: Suicidal ideation Physical Exam - Physical Exam Appears: Non-toxic, No Acute Distress, Other (EtOH on breath ) Skin: Warm, Dry Head: Atraumatic, Normacephalic Eye(s): bilateral: Normal Inspection Oral Mucosa: Moist Neck: Supple Chest: Symmetrical, No Deformity Cardiovascular: Rhythm Regular, No Murmur Respiratory: Normal Breath Sounds, No Rales, No Rhonchi, No Wheezing Gastrointestinal/Abdominal: Soft, No Tenderness, No Distention, No Guarding, No Rebound Extremity: Normal ROM, No Tenderness Neurological/Psych: Oriented x3 ED Course And Treatment O2 Sat by Pulse Oximetry: 98 (room air ) ED OBSERVATION Date of observation admission: 07/15/17 Time of observation admission: 23:25 - Observation admission statement Patient is being placed in observation because:: patient is intoxicated. - Goals of Observation Goals of observation are:: Sobriety. Disposition - Disposition Referrals: [facility] [Outside] Disposition: HOME/ ROUTINE Disposition Time: 06:25 Condition: STABLE Instructions: Alcohol Intoxication (GEN), Abuse of Alcohol (ED) Forms: [employer] (Azeri) - Clinical Impression Clinical Impression: Acute alcohol intoxication - Scribe Statement The provider has reviewed the documentation as recorded by the Scribjosé miguel Noel All medical record entries made by the Scribe were at my direction and personally dictated by me. I have reviewed the chart and agree that the record accurately reflects my personal performance of the history, physical exam, medical decision making, and the department course for this patient. I have also personally directed, reviewed, and agree with the discharge instructions and disposition.
[2017-07-16 06:23] VITALS: BP 128/74; PULSE 83; RESP 20; TEMP 97.6
[2017-07-16 06:25] VITALS: O2SAT 98
== END 2017-07-16 06:18 | disposition home or self-care (01) ==
LOC: C.ER 20:54
DX: F10.129 Alcohol abuse with intoxication, unspecified (principal); Y90.9 Presence of alcohol in blood, level not specified

== ENCOUNTER 2017-07-16 21:21 | Emergency (ER) | payer MEDICAID ==
[2017-07-16 22:16] VITALS: TEMP 97.9; O2SAT 97
--- NOTE | 2017-07-16 23:14 | C.PDOC ---
History Of Present Illness Patient presents to the ED with alcohol on breath and admits to drinking prior to arrival. Patient denies physical complaints, suicidal, or homicidal ideations. Time Seen by Provider: 07/16/17 23:10 Chief Complaint (Nursing): Substance Abuse History Per: Patient History/Exam Limitations: no limitations Suicide/Self Injury Attempted (Context): None Modifying Factor(s): Alcohol Severity: None Pain Scale Rating Of: 0 Associated Symptoms: denies: Suicidal Thoughts, Suicidal Plan Involuntary Hold By: None Recent travel outside of the [place]: No Additional History Per: Prior Records Past Medical History Reviewed: Historical Data, Nursing Documentation, Vital Signs Vital Signs: Last Vital Signs Temp 97.9 F 07/16/17 22:13 Pulse 93 H 07/16/17 22:13 Resp 20 07/16/17 22:13 BP 143/73 07/16/17 22:13 Pulse Ox 97 07/17/17 03:08 - Medical History PMH: Anxiety, Arthritis, Bronchitis, CAD, Depression, 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 signwriter, not aware), Fractures (Rt. Fa.), Gastritis, Gall Bladder Disease (s/p cholecystectomy), HTN, Post Traumatic Stress Disorder, Rheumatoid Arthritis, Seizures, Chronic Pain Surgical History: Cholecystectomy - [facility] Procedures ALCOHOL DETOXIFICATION (07/04/15) APPLICATION OF SPLINT (03/20/13) CLOSURE SKIN & SUBCUTANEOUS NEC (08/14/13) DETOXIFICATION SERVICES FOR SUBSTANCE ABUSE TREATMENT (03/22/16) ESOPHAGOGASTRODUODENOSCOPY [EGD] W/CLOSED BIOPSY (02/16/15) OTHER GROUP THERAPY (03/12/13) PHYSICAL THERAPY NEC (07/04/15) TETANUS TOXOID ADMINIST (01/19/14) Family History: States: Unknown Family Hx - Social History Hx Tobacco Use: No Hx Alcohol Use: Yes Hx Substance Use: No - Immunization History Hx Tetanus Toxoid Vaccination: Yes Hx Influenza Vaccination: No Hx Pneumococcal Vaccination: No Review Of Systems Constitutional: Negative for: Fever, Chills Gastrointestinal: Negative for: Nausea, Vomiting Physical Exam - Physical Exam Appears: Non-toxic, No Acute Distress, Other (EtOH on breath ) Skin: Warm, Dry Head: Atraumatic Eye(s): bilateral: Normal Inspection Oral Mucosa: Moist Neck: Supple Chest: Symmetrical, No Deformity Cardiovascular: Rhythm Regular, No Murmur Respiratory: No Rales, No Rhonchi, No Wheezing Gastrointestinal/Abdominal: Soft, No Tenderness, No Distention, No Guarding, No Rebound Extremity: Normal ROM, No Tenderness Neurological/Psych: Oriented x3 Gait: Steady ED Course And Treatment O2 Sat by Pulse Oximetry: 97 (room air ) ED OBSERVATION Discharge: Yes Date of observation admission: 07/16/17 Time of observation admission: 23:14 - Observation admission statement Patient is being placed in observation because:: acute alcohol intoxication - Goals of Observation Goals of observation are:: sobriety - Progress Note Progress Note: 07/16/17 23:15 vitals stable 07/17/17 02:08 vitals stable 07/17/17 05:31 ambulating to the bathroom unassisted Disposition Counseled Patient/Family Regarding: Studies Performed, Diagnosis, Need For Followup - Disposition Referrals: [facility] [Outside] Disposition: HOME/ ROUTINE Disposition Time: 23:11 Condition: FAIR Instructions: Alcohol Intoxication (DC) Forms: [employer] (Amharic) - Clinical Impression Clinical Impression: Alcohol intoxication, Chronic alcoholism - Scribe Statement The provider has reviewed the documentation as recorded by the Scribe Tiffany Noel All medical record entries made by the Scribe were at my direction and personally dictated by me. I have reviewed the chart and agree that the record accurately reflects my personal performance of the history, physical exam, medical decision making, and the department course for this patient. I have also personally directed, reviewed, and agree with the discharge instructions and disposition.
[2017-07-17 06:19] VITALS: BP 139/82; PULSE 71; RESP 20
== END 2017-07-17 06:22 | disposition home or self-care (01) ==
LOC: C.ER 21:21
DX: F10.229 Alcohol dependence with intoxication, unspecified (principal)

== ENCOUNTER 2017-07-17 22:13 | Observation (INO) | payer MEDICAID ==
[2017-07-17 22:30] VITALS: RESP 20
--- NOTE | 2017-07-17 22:41 | C.PDOC ---
History Of Present Illness Patient presents to the ED seeking a place to sleep and has alcohol on breath. Patient admits to drinking alcohol prior to arrival and denies physical complaints, suicidal, or homicidal ideations. Time Seen by Provider: 07/17/17 22:39 Chief Complaint (Nursing): Substance Abuse History Per: Patient History/Exam Limitations: no limitations Suicide/Self Injury Attempted (Context): None Modifying Factor(s): Alcohol Severity: None Pain Scale Rating Of: 0 Associated Symptoms: denies: Suicidal Thoughts, Suicidal Plan Involuntary Hold By: None Recent travel outside of the [place]: No Additional History Per: Prior Records Past Medical History Reviewed: Historical Data, Nursing Documentation, Vital Signs Vital Signs: Last Vital Signs Temp 98.3 F 07/17/17 22:20 Pulse 72 07/18/17 02:56 Resp 20 07/18/17 02:56 BP 144/72 07/18/17 02:56 Pulse Ox 96 07/18/17 04:17 - Medical History PMH: Anxiety, Arthritis, Bronchitis, CAD, Depression, 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 aligner, not aware), Fractures (Rt. Fa.), Gastritis, Gall Bladder Disease (s/p cholecystectomy), HTN, Post Traumatic Stress Disorder, Rheumatoid Arthritis, Seizures, Chronic Pain Surgical History: Cholecystectomy - [facility] Procedures ALCOHOL DETOXIFICATION (07/04/15) APPLICATION OF SPLINT (03/20/13) CLOSURE SKIN & SUBCUTANEOUS NEC (08/14/13) DETOXIFICATION SERVICES FOR SUBSTANCE ABUSE TREATMENT (03/22/16) ESOPHAGOGASTRODUODENOSCOPY [EGD] W/CLOSED BIOPSY (02/16/15) OTHER GROUP THERAPY (03/12/13) PHYSICAL THERAPY NEC (07/04/15) TETANUS TOXOID ADMINIST (01/19/14) Family History: States: No Known Family Hx - Social History Hx Tobacco Use: No Hx Alcohol Use: Yes Hx Substance Use: No - Immunization History Hx Tetanus Toxoid Vaccination: Yes Hx Influenza Vaccination: No Hx Pneumococcal Vaccination: No Review Of Systems Constitutional: Negative for: Fever, Chills Gastrointestinal: Negative for: Nausea, Vomiting, Abdominal Pain, Diarrhea Physical Exam - Physical Exam Appears: Non-toxic, No Acute Distress, Other (EtOH on breath ) Skin: Warm, Dry Head: Atraumatic Eye(s): bilateral: Normal Inspection Oral Mucosa: Moist Neck: Supple Chest: Symmetrical, No Deformity Cardiovascular: Rhythm Regular, No Murmur Respiratory: No Rales, No Rhonchi, No Wheezing Gastrointestinal/Abdominal: Soft, No Tenderness, No Distention, No Guarding, No Rebound Extremity: Normal ROM Neurological/Psych: Oriented x3 Gait: Steady ED Course And Treatment O2 Sat by Pulse Oximetry: 96 (RA) Pulse Ox Interpretation: Normal ED OBSERVATION Discharge: Yes Date of observation admission: 07/17/17 Time of observation admission: 22:41 - Observation admission statement Patient is being placed in observation because:: acute alcohol intoxication - Goals of Observation Goals of observation are:: sobriety - Progress Note Progress Note: 07/17/17 22:41 vitals stable 07/18/17 01:16 vitals stable 07/18/17 04:17 no complaints Disposition Counseled Patient/Family Regarding: Studies Performed, Diagnosis, Need For Followup - Disposition Disposition: HOME/ ROUTINE Disposition Time: 22:40 Condition: FAIR - Clinical Impression Clinical Impression: Alcohol abuse with intoxication, Chronic alcoholism - Scribe Statement The provider has reviewed the documentation as recorded by the Rominaibjosé miguel Noel All medical record entries made by the Rominaibjosé miguel were at my direction and personally dictated by me. I have reviewed the chart and agree that the record accurately reflects my personal performance of the history, physical exam, medical decision making, and the department course for this patient. I have also personally directed, reviewed, and agree with the discharge instructions and disposition. Decision To Admit - . Patient Diagnosis: Alcohol abuse with intoxication, Chronic alcoholism
[2017-07-18 02:57] VITALS: BP 144/72
[2017-07-18 04:17] VITALS: O2SAT 96
[2017-07-18 05:11] VITALS: PULSE 70; TEMP 98
== END 2017-07-18 05:10 | disposition home or self-care (01) ==
LOC: C.ER 22:13 → C.9OBSV 22:41
PROVIDERS: ADMIT Emergency Medicine; ATTEND Emergency Medicine
DX: F10.229 Alcohol dependence with intoxication, unspecified (principal); Y90.9 Presence of alcohol in blood, level not specified
CPT/HCPCS: G0378 ×2

== ENCOUNTER 2017-07-18 21:11 | Observation (INO) | payer MEDICAID ==
--- NOTE | 2017-07-18 21:49 | C.PDOC ---
History Of Present Illness Patient brought in via EMS after he was found intoxicated in public. Denies physical complaints at this time. Time Seen by Provider: 07/18/17 21:47 Chief Complaint (Nursing): Substance Abuse History Per: Patient History/Exam Limitations: no limitations Onset/Duration Of Symptoms: Hrs Current Symptoms Are (Timing): Still Present Suicide/Self Injury Attempted (Context): None Modifying Factor(s): Alcohol Severity: None Pain Scale Rating Of: 0 Associated Symptoms: denies: Depression, Suicidal Thoughts, Suicidal Plan Involuntary Hold By: None Recent travel outside of the [place]: No Past Medical History Reviewed: Historical Data, Nursing Documentation, Vital Signs Vital Signs: Last Vital Signs Temp 98.7 F 07/19/17 02:10 Pulse 88 07/19/17 02:10 Resp 18 07/19/17 02:10 BP 135/80 07/19/17 02:10 Pulse Ox 95 07/19/17 02:10 - Medical History PMH: Anxiety, Arthritis, Bronchitis, CAD, Depression, 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 check writer, not aware), Fractures (Rt. Fa.), Gastritis, Gall Bladder Disease (s/p cholecystectomy), HTN, Post Traumatic Stress Disorder, Rheumatoid Arthritis, Seizures, Chronic Pain Surgical History: Cholecystectomy - [facility] Procedures ALCOHOL DETOXIFICATION (07/04/15) APPLICATION OF SPLINT (03/20/13) CLOSURE SKIN & SUBCUTANEOUS NEC (08/14/13) DETOXIFICATION SERVICES FOR SUBSTANCE ABUSE TREATMENT (03/22/16) ESOPHAGOGASTRODUODENOSCOPY [EGD] W/CLOSED BIOPSY (02/16/15) OTHER GROUP THERAPY (03/12/13) PHYSICAL THERAPY NEC (07/04/15) TETANUS TOXOID ADMINIST (01/19/14) Family History: States: No Known Family Hx - Social History Hx Tobacco Use: No Hx Alcohol Use: Yes Hx Substance Use: No - Immunization History Hx Tetanus Toxoid Vaccination: Yes Hx Influenza Vaccination: No Hx Pneumococcal Vaccination: No Review Of Systems Constitutional: Negative for: Fever, Chills Gastrointestinal: Negative for: Nausea, Vomiting, Diarrhea Physical Exam - Physical Exam Appears: Non-toxic, Other (ETOH on breath) Skin: Warm, Dry Head: Normacephalic Oral Mucosa: Moist Chest: Symmetrical, No Tenderness Cardiovascular: Rhythm Regular Respiratory: No Rales, No Rhonchi, No Wheezing Gastrointestinal/Abdominal: Soft, No Tenderness Neurological/Psych: Oriented x3 ED Course And Treatment O2 Sat by Pulse Oximetry: 98 (Room air) Pulse Ox Interpretation: Normal Reevaluation Time: 05:07 Reassessment Condition: Improved ED OBSERVATION Discharge: Yes Date of observation admission: 07/18/17 Time of observation admission: 21:50 - Observation admission statement Patient is being placed in observation because:: acute alcohol intoxication - Goals of Observation Goals of observation are:: sobriety - Progress Note Progress Note: 07/18/17 21:50 vitals stable 07/19/17 00:07 no complaints 07/19/17 03:07 vitals stable Disposition Counseled Patient/Family Regarding: Studies Performed, Diagnosis, Need For Followup - Disposition Disposition: HOME/ ROUTINE Disposition Time: 21:48 Condition: FAIR - Clinical Impression Clinical Impression: Alcohol intoxication, Chronic alcoholism - Scribe Statement The provider has reviewed the documentation as recorded by the Scribjosé miguel Ramirez All medical record entries made by the Rominaibjosé miguel were at my direction and personally dictated by me. I have reviewed the chart and agree that the record accurately reflects my personal performance of the history, physical exam, medical decision making, and the department course for this patient. I have also personally directed, reviewed, and agree with the discharge instructions and disposition.
[2017-07-19 06:30] VITALS: BP 130/82; PULSE 84; RESP 20; TEMP 98; O2SAT 97
== END 2017-07-19 05:08 | disposition home or self-care (01) ==
LOC: C.ER 21:11 → C.9OBSV 21:49
PROVIDERS: ADMIT Emergency Medicine; ATTEND Emergency Medicine
DX: F10.220 Alcohol dependence with intoxication, uncomplicated (principal); Y90.9 Presence of alcohol in blood, level not specified
CPT/HCPCS: 82948; 99283; G0378

== ENCOUNTER 2017-07-19 20:49 | Observation (INO) | payer MEDICAID ==
--- NOTE | 2017-07-19 21:21 | C.PDOC ---
History Of Present Illness 56 year old male presents to the ED seeking a place to sleep. Patient had EtOH on breath and admits to drinking alcohol prior to arrival. He denies any physical complaints, suicidal, or homicidal ideations. Chief Complaint (Nursing): Substance Abuse History Per: Patient History/Exam Limitations: no limitations Suicide/Self Injury Attempted (Context): None Modifying Factor(s): Alcohol Associated Symptoms: denies: Suicidal Thoughts, Suicidal Plan Involuntary Hold By: None Recent travel outside of the [place]: No Past Medical History Vital Signs: Last Vital Signs Temp 97.9 F 07/20/17 03:59 Pulse 94 H 07/20/17 03:59 Resp 16 07/20/17 03:59 BP 130/80 07/20/17 03:59 Pulse Ox 95 07/20/17 03:59 - Medical History PMH: Anxiety, Arthritis, Bronchitis, CAD, Depression, 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 real estate underwriter, not aware), Fractures (Rt. Fa.), Gastritis, Gall Bladder Disease (s/p cholecystectomy), HTN, Post Traumatic Stress Disorder, Rheumatoid Arthritis, Seizures, Chronic Pain Denies: Chronic Kidney Disease Surgical History: Cholecystectomy - [facility] Procedures ALCOHOL DETOXIFICATION (07/04/15) APPLICATION OF SPLINT (03/20/13) CLOSURE SKIN & SUBCUTANEOUS NEC (08/14/13) DETOXIFICATION SERVICES FOR SUBSTANCE ABUSE TREATMENT (03/22/16) ESOPHAGOGASTRODUODENOSCOPY [EGD] W/CLOSED BIOPSY (02/16/15) OTHER GROUP THERAPY (03/12/13) PHYSICAL THERAPY NEC (07/04/15) TETANUS TOXOID ADMINIST (01/19/14) Family History: States: Unknown Family Hx - Social History Hx Tobacco Use: No Hx Alcohol Use: Yes Hx Substance Use: No - Immunization History Hx Tetanus Toxoid Vaccination: Yes Hx Influenza Vaccination: No Hx Pneumococcal Vaccination: No Review Of Systems Constitutional: Negative for: Fever, Chills Cardiovascular: Negative for: Chest Pain, Palpitations Respiratory: Negative for: Cough, Shortness of Breath Gastrointestinal: Negative for: Nausea, Vomiting, Abdominal Pain, Diarrhea Physical Exam - Physical Exam Appears: Non-toxic, No Acute Distress, Other (EtOH on breath) Skin: Warm, Dry Head: Atraumatic, Normacephalic Eye(s): bilateral: Normal Inspection, PERRL, EOMI Oral Mucosa: Moist Neck: Supple Chest: Symmetrical, No Deformity Cardiovascular: Rhythm Regular, No Murmur Respiratory: Normal Breath Sounds, No Rales, No Rhonchi, No Wheezing Gastrointestinal/Abdominal: Soft, No Tenderness, No Distention, No Guarding, No Rebound Extremity: Normal ROM, No Tenderness Neurological/Psych: Oriented x3 Gait: Steady ED Course And Treatment O2 Sat by Pulse Oximetry: 99 (RA) ED OBSERVATION Date of observation admission: 07/19/17 Time of observation admission: 21:21 - Observation admission statement Patient is being placed in observation because:: Patient is intoxicated. - Goals of Observation Goals of observation are:: Sobriety. Disposition Counseled Patient/Family Regarding: Diagnosis - Disposition Disposition: HOME/ ROUTINE Disposition Time: 04:30 Condition: STABLE - POA Present On Arrival: None - Clinical Impression Clinical Impression: Alcohol intoxication, Alcohol abuse - Scribe Statement The provider has reviewed the documentation as recorded by the Rominaibjosé miguel Noel All medical record entries made by the Rominaibjosé miguel were at my direction and personally dictated by me. I have reviewed the chart and agree that the record accurately reflects my personal performance of the history, physical exam, medical decision making, and the department course for this patient. I have also personally directed, reviewed, and agree with the discharge instructions and disposition.
[2017-07-20 03:59] VITALS: BP 130/80; PULSE 94; RESP 16; TEMP 97.9
[2017-07-20 04:31] VITALS: O2SAT 99
== END 2017-07-20 04:29 | disposition home or self-care (01) ==
LOC: C.ER 20:49 → C.9OBSV 22:23
PROVIDERS: ADMIT Emergency Medicine; ATTEND Emergency Medicine
DX: F10.129 Alcohol abuse with intoxication, unspecified (principal); Y90.9 Presence of alcohol in blood, level not specified
CPT/HCPCS: 82948; 99283; G0378

== ENCOUNTER 2017-07-20 22:41 | Observation (INO) | payer MEDICAID ==
--- NOTE | 2017-07-20 23:11 | C.PDOC ---
History Of Present Illness 56 year old male presents to the ED seeking a place to sleep. Patient admits to drinking alcohol prior to arrival and has EtOH on breath. He denies physical complaints, suicidal, or homicidal ideations. Time Seen by Provider: 07/20/17 22:42 Chief Complaint (Nursing): Substance Abuse History Per: Patient History/Exam Limitations: no limitations Suicide/Self Injury Attempted (Context): None Modifying Factor(s): Alcohol Severity: None Pain Scale Rating Of: 0 Associated Symptoms: denies: Suicidal Thoughts, Suicidal Plan Involuntary Hold By: None Recent travel outside of the [place]: No Additional History Per: Prior Records Past Medical History Reviewed: Historical Data, Nursing Documentation, Vital Signs Vital Signs: Last Vital Signs Temp 97.5 F L 07/21/17 03:23 Pulse 89 07/21/17 03:23 Resp 18 07/21/17 03:23 BP 130/83 07/21/17 03:23 Pulse Ox 96 07/21/17 03:23 - Medical History PMH: Anxiety, Arthritis, Bronchitis, CAD, Depression, 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 procedure writer, not aware), Fractures (Rt. Fa.), Gastritis, Gall Bladder Disease (s/p cholecystectomy), HTN, Post Traumatic Stress Disorder, Rheumatoid Arthritis, Seizures, Chronic Pain Surgical History: Cholecystectomy - [facility] Procedures ALCOHOL DETOXIFICATION (07/04/15) APPLICATION OF SPLINT (03/20/13) CLOSURE SKIN & SUBCUTANEOUS NEC (08/14/13) DETOXIFICATION SERVICES FOR SUBSTANCE ABUSE TREATMENT (03/22/16) ESOPHAGOGASTRODUODENOSCOPY [EGD] W/CLOSED BIOPSY (02/16/15) OTHER GROUP THERAPY (03/12/13) PHYSICAL THERAPY NEC (07/04/15) TETANUS TOXOID ADMINIST (01/19/14) Family History: States: Unknown Family Hx - Social History Hx Tobacco Use: No Hx Alcohol Use: Yes Hx Substance Use: No - Immunization History Hx Tetanus Toxoid Vaccination: Yes Hx Influenza Vaccination: No Hx Pneumococcal Vaccination: No Review Of Systems Constitutional: Negative for: Fever, Chills Cardiovascular: Negative for: Chest Pain, Palpitations Respiratory: Negative for: Cough, Shortness of Breath Gastrointestinal: Negative for: Nausea, Vomiting, Abdominal Pain Physical Exam - Physical Exam Appears: Non-toxic, No Acute Distress, Other (EtOh on breath ) Skin: Warm, Dry Head: Atraumatic Eye(s): bilateral: Normal Inspection Oral Mucosa: Moist Neck: Supple Chest: Symmetrical, No Deformity Cardiovascular: Rhythm Regular, No Murmur Respiratory: Normal Breath Sounds, No Rales, No Rhonchi, No Wheezing Gastrointestinal/Abdominal: Soft, No Tenderness, No Distention, No Guarding, No Rebound Extremity: Normal ROM, No Tenderness Neurological/Psych: Oriented x3 ED OBSERVATION Date of observation admission: 07/20/17 Time of observation admission: 23:08 - Observation admission statement Patient is being placed in observation because:: Patient is intoxicated. - Goals of Observation Goals of observation are:: Sobriety. - Progress Note Progress Note: 07/21/17 04:40 Patient is awake, alert, and oriented. He is ambulatory and was given water. Patient states he is "on the move" and ready for discharge. Disposition - Disposition Disposition: HOME/ ROUTINE Disposition Time: 04:45 Condition: STABLE - Clinical Impression Clinical Impression: Alcohol intoxication, Homelessness - Scribe Statement The provider has reviewed the documentation as recorded by the Scribjosé miguel Noel All medical record entries made by the Rominaibjosé miguel were at my direction and personally dictated by me. I have reviewed the chart and agree that the record accurately reflects my personal performance of the history, physical exam, medical decision making, and the department course for this patient. I have also personally directed, reviewed, and agree with the discharge instructions and disposition.
[2017-07-20 23:15] VITALS: RESP 18
[2017-07-21 03:44] VITALS: BP 130/83; PULSE 89; TEMP 97.5; O2SAT 96
== END 2017-07-21 04:32 | disposition home or self-care (01) ==
LOC: C.ER 22:41 → C.9OBSV 23:01
PROVIDERS: ADMIT Student in an Organized Health Care Education/Training Program; ATTEND Student in an Organized Health Care Education/Training Program
DX: F10.129 Alcohol abuse with intoxication, unspecified (principal); Z59.0 Homelessness; Y90.9 Presence of alcohol in blood, level not specified
CPT/HCPCS: 82948; 99284; G0378

== ENCOUNTER 2017-07-21 20:50 | Observation (INO) | payer MEDICAID ==
--- NOTE | 2017-07-21 21:40 | C.PDOC ---
History Of Present Illness The patient presents to the ED with acute alcohol intoxication for an unknown duration. Patient is familiar to this ED and has had multiple evaluations related to alcohol intoxication. Patient admits to drinking earlier tonight and has no physical complaints at this time. Time Seen by Provider: 07/21/17 21:37 Chief Complaint (Nursing): Substance Abuse History Per: Patient History/Exam Limitations: intoxication Onset/Duration Of Symptoms: Unknown Current Symptoms Are (Timing): Still Present Suicide/Self Injury Attempted (Context): None Modifying Factor(s): Alcohol Severity: None Pain Scale Rating Of: 0 Associated Symptoms: denies: Suicidal Thoughts, Suicidal Plan Involuntary Hold By: None Recent travel outside of the [place]: No Additional History Per: Patient Past Medical History Reviewed: Historical Data, Nursing Documentation, Vital Signs Vital Signs: Last Vital Signs Temp 97.5 F L 07/21/17 21:31 Pulse 80 07/21/17 21:31 Resp 14 07/21/17 21:31 BP 106/74 07/21/17 21:31 Pulse Ox 97 07/21/17 21:58 - Medical History PMH: Anxiety, Arthritis, Bronchitis, CAD, Depression, 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 Fa.), Gastritis, Gall Bladder Disease (s/p cholecystectomy), HTN, Post Traumatic Stress Disorder, Rheumatoid Arthritis, Seizures, Chronic Pain Surgical History: Cholecystectomy - [facility] Procedures ALCOHOL DETOXIFICATION (07/04/15) APPLICATION OF SPLINT (03/20/13) CLOSURE SKIN & SUBCUTANEOUS NEC (08/14/13) DETOXIFICATION SERVICES FOR SUBSTANCE ABUSE TREATMENT (03/22/16) ESOPHAGOGASTRODUODENOSCOPY [EGD] W/CLOSED BIOPSY (02/16/15) OTHER GROUP THERAPY (03/12/13) PHYSICAL THERAPY NEC (07/04/15) TETANUS TOXOID ADMINIST (01/19/14) Family History: States: Unknown Family Hx - Social History Hx Tobacco Use: No Hx Alcohol Use: Yes Hx Substance Use: No - Immunization History Hx Tetanus Toxoid Vaccination: Yes Hx Influenza Vaccination: No Hx Pneumococcal Vaccination: No Review Of Systems Constitutional: Positive for: Other (EtOH intoxication ). Negative for: Fever, Chills Cardiovascular: Negative for: Chest Pain, Palpitations Respiratory: Negative for: Cough, Shortness of Breath Gastrointestinal: Negative for: Nausea, Vomiting, Abdominal Pain Skin: Negative for: Rash, Lesions, Jaundice, Bruising Neurological: Negative for: Weakness, Numbness Psych: Negative for: Suicidal ideation Physical Exam - Physical Exam Appears: No Acute Distress, Other (visibly intoxicated ) Skin: Warm, Dry Head: Atraumatic Eye(s): bilateral: Normal Inspection Oral Mucosa: Moist, Other (alcohol on breath ) Neck: Supple Chest: Symmetrical, No Deformity Cardiovascular: Rhythm Regular, No Murmur Respiratory: No Rales, No Rhonchi, No Wheezing Extremity: Normal ROM, Capillary Refill (less than 2 seconds ) Neurological/Psych: Other (arousable to touch verbal stimuli ) Gait: Unsteady ED Course And Treatment O2 Sat by Pulse Oximetry: 97 (on RA) Pulse Ox Interpretation: Normal ED OBSERVATION Date of observation admission: 07/21/17 Time of observation admission: 21:40 - Observation admission statement Patient is being placed in observation because:: acute alcohol intoxication - Goals of Observation Goals of observation are:: sobriety - Progress Note Progress Note: 07/21/17 21:40 vitals stable 07/22/17 00:14 vitals stable 07/22/17 02:16 no complaints Disposition Counseled Patient/Family Regarding: Studies Performed, Diagnosis, Need For Followup - Disposition Disposition Time: 21:38 Condition: FAIR - Clinical Impression Clinical Impression: Alcohol intoxication, Chronic alcoholism
--- NOTE | 2017-07-21 21:43 | C.PDOC ---
History Of Present Illness 56 year old male presents to the ED for evaluation of acute alcohol intoxication for an unknown duration. Patient is familiar to this ED and has had multiple prior presentations concerning similar symptoms. Patient admits to drinking alcohol earlier today and has no physical complaints at this time. Time Seen by Provider: 07/21/17 21:37 Chief Complaint (Nursing): Substance Abuse History Per: Patient History/Exam Limitations: intoxication Onset/Duration Of Symptoms: Unknown Current Symptoms Are (Timing): Gone Suicide/Self Injury Attempted (Context): None Modifying Factor(s): Alcohol Severity: None Pain Scale Rating Of: 0 Associated Symptoms: denies: Suicidal Thoughts, Suicidal Plan Involuntary Hold By: None Recent travel outside of the [place]: No Additional History Per: Patient Past Medical History Reviewed: Historical Data, Nursing Documentation, Vital Signs Vital Signs: Last Vital Signs Temp 97.5 F L 07/21/17 21:31 Pulse 80 07/21/17 21:31 Resp 14 07/21/17 21:31 BP 106/74 07/21/17 21:31 Pulse Ox 97 07/21/17 21:31 - Medical History PMH: Anxiety, Arthritis, Bronchitis, CAD, Depression, 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 web content writer, not aware), Fractures (Rt. Fa.), Gastritis, Gall Bladder Disease (s/p cholecystectomy), HTN, Post Traumatic Stress Disorder, Rheumatoid Arthritis, Seizures, Chronic Pain Surgical History: Cholecystectomy - [facility] Procedures ALCOHOL DETOXIFICATION (07/04/15) APPLICATION OF SPLINT (03/20/13) CLOSURE SKIN & SUBCUTANEOUS NEC (08/14/13) DETOXIFICATION SERVICES FOR SUBSTANCE ABUSE TREATMENT (03/22/16) ESOPHAGOGASTRODUODENOSCOPY [EGD] W/CLOSED BIOPSY (02/16/15) OTHER GROUP THERAPY (03/12/13) PHYSICAL THERAPY NEC (07/04/15) TETANUS TOXOID ADMINIST (01/19/14) Family History: States: Unknown Family Hx - Social History Hx Tobacco Use: No Hx Alcohol Use: Yes Hx Substance Use: No - Immunization History Hx Tetanus Toxoid Vaccination: Yes Hx Influenza Vaccination: No Hx Pneumococcal Vaccination: No Review Of Systems Constitutional: Negative for: Fever, Chills Cardiovascular: Negative for: Chest Pain, Palpitations Respiratory: Negative for: Cough, Shortness of Breath Gastrointestinal: Negative for: Nausea, Vomiting Neurological: Negative for: Weakness, Numbness Psych: Positive for: Other (EtOH intoxication ). Negative for: Suicidal ideation Physical Exam - Physical Exam Appears: No Acute Distress, Other (visibly intoxicated ) Skin: Warm, Dry Head: Atraumatic Eye(s): bilateral: Normal Inspection Oral Mucosa: Moist, Other (alcohol on breath ) Neck: Supple Chest: Symmetrical, No Deformity Cardiovascular: Rhythm Regular, No Murmur Respiratory: No Rales, No Rhonchi, No Wheezing Extremity: Normal ROM, Capillary Refill (less than 2 seconds ) Neurological/Psych: Other (arousable to touch and verbal stimuli ) Gait: Unsteady ED Course And Treatment O2 Sat by Pulse Oximetry: 97 (on RA) Pulse Ox Interpretation: Normal ED OBSERVATION Date of observation admission: 07/21/17 Time of observation admission: 21:38 - Observation admission statement Patient is being placed in observation because:: acute alcohol intoxication - Goals of Observation Goals of observation are:: sobriety - Progress Note Progress Note: 07/21/17 21:46 Patient is resting comfortably, with no complaints. Vitals are stable. Disposition - Disposition Forms: [employer] Connect (Ar[place]ine) - Scribe Statement The provider has reviewed the documentation as recorded by the Scribe (Kari Fajardo) Provider Attestation: All medical record entries made by the Scribe were at my direction and personally dictated by me. I have reviewed the chart and agree that the record accurately reflects my personal performance of the history, physical exam, medical decision making, and the department course for this patient. I have also personally directed, reviewed, and agree with the discharge instructions and disposition.
[2017-07-22 04:59] VITALS: RESP 20
[2017-07-22 05:10] VITALS: BP 124/78; PULSE 82; TEMP 98.2; O2SAT 97
== END 2017-07-22 06:47 | disposition home or self-care (01) ==
LOC: C.ER 20:50 → C.9OBSV 21:38
PROVIDERS: ADMIT Emergency Medicine; ATTEND Emergency Medicine
DX: F10.220 Alcohol dependence with intoxication, uncomplicated (principal); Y90.9 Presence of alcohol in blood, level not specified; I25.10 Atherosclerotic heart disease of native coronary artery without angina pectoris; E11.9 Type 2 diabetes mellitus without complications
CPT/HCPCS: 99285; G0378

== ENCOUNTER 2017-07-22 20:19 | Observation (INO) | payer MEDICAID ==
--- NOTE | 2017-07-22 21:47 | C.PDOC ---
History Of Present Illness Patient presents to the ER with acute ETOH intoxication. Denies physical complaints at this time. Time Seen by Provider: 07/22/17 21:45 History Per: Patient History/Exam Limitations: no limitations Onset/Duration Of Symptoms: Hrs Current Symptoms Are (Timing): Still Present Suicide/Self Injury Attempted (Context): None Modifying Factor(s): Alcohol Severity: None Pain Scale Rating Of: 0 Associated Symptoms: denies: Depression, Suicidal Thoughts, Suicidal Plan Involuntary Hold By: None Recent travel outside of the [place]: No Past Medical History Reviewed: Historical Data, Nursing Documentation, Vital Signs Vital Signs: Last Vital Signs Temp 98.3 F 07/23/17 04:41 Pulse 90 07/23/17 04:41 Resp 20 07/23/17 04:41 BP 109/72 07/23/17 04:41 Pulse Ox 95 07/23/17 04:41 - Medical History PMH: Anxiety, Arthritis, Bronchitis, CAD, Depression, 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 law writer, not aware), Fractures (Rt. Fa.), Gastritis, Gall Bladder Disease (s/p cholecystectomy), HTN, Post Traumatic Stress Disorder, Rheumatoid Arthritis, Seizures, Chronic Pain Surgical History: Cholecystectomy - [facility] Procedures ALCOHOL DETOXIFICATION (07/04/15) APPLICATION OF SPLINT (03/20/13) CLOSURE SKIN & SUBCUTANEOUS NEC (08/14/13) DETOXIFICATION SERVICES FOR SUBSTANCE ABUSE TREATMENT (03/22/16) ESOPHAGOGASTRODUODENOSCOPY [EGD] W/CLOSED BIOPSY (02/16/15) OTHER GROUP THERAPY (03/12/13) PHYSICAL THERAPY NEC (07/04/15) TETANUS TOXOID ADMINIST (01/19/14) Family History: States: No Known Family Hx - Social History Hx Tobacco Use: No Hx Alcohol Use: Yes Hx Substance Use: No - Immunization History Hx Tetanus Toxoid Vaccination: Yes Hx Influenza Vaccination: No Hx Pneumococcal Vaccination: No Review Of Systems Constitutional: Negative for: Fever, Chills Gastrointestinal: Negative for: Nausea, Vomiting, Diarrhea Physical Exam - Physical Exam Appears: Non-toxic, No Acute Distress, Other (ETOH on breath) Skin: Warm, Dry Head: Normacephalic Oral Mucosa: Moist Chest: Symmetrical Cardiovascular: Rhythm Regular Respiratory: No Rales, No Rhonchi, No Wheezing Gastrointestinal/Abdominal: Soft, No Tenderness Neurological/Psych: Oriented x3 ED Course And Treatment O2 Sat by Pulse Oximetry: 98 Pulse Ox Interpretation: Normal Reevaluation Time: 05:27 Reassessment Condition: Improved ED OBSERVATION Discharge: Yes Date of observation admission: 07/22/17 Time of observation admission: 21:47 - Observation admission statement Patient is being placed in observation because:: acute alcohol intoxication - Goals of Observation Goals of observation are:: sobriety - Progress Note Progress Note: 07/22/17 21:47 vitals stable 07/23/17 00:31 arousable 07/23/17 03:31 vitals stable Disposition Counseled Patient/Family Regarding: Studies Performed, Diagnosis, Need For Followup - Disposition Disposition: HOME/ ROUTINE Disposition Time: 21:46 Condition: FAIR - Clinical Impression Clinical Impression: Alcohol intoxication - Scribe Statement The provider has reviewed the documentation as recorded by the Scribjosé miguel Ramirez All medical record entries made by the Rominaibjosé miguel were at my direction and personally dictated by me. I have reviewed the chart and agree that the record accurately reflects my personal performance of the history, physical exam, medical decision making, and the department course for this patient. I have also personally directed, reviewed, and agree with the discharge instructions and disposition.
[2017-07-22 21:50] VITALS: BMI 23.1
[2017-07-23 04:42] VITALS: BP 109/72; PULSE 90; RESP 20; TEMP 98.3
[2017-07-23 05:27] VITALS: O2SAT 98
== END 2017-07-23 05:30 | disposition home or self-care (01) ==
LOC: C.ER 20:19 → C.9OBSV 21:50
PROVIDERS: ADMIT Emergency Medicine; ATTEND Emergency Medicine
DX: F10.129 Alcohol abuse with intoxication, unspecified (principal); Y90.9 Presence of alcohol in blood, level not specified
CPT/HCPCS: 82948; 99283; G0378

== ENCOUNTER 2017-07-23 19:37 | Emergency (ER) | payer MEDICAID ==
[2017-07-23 19:37] VITALS: BMI 23.1
[2017-07-23 21:11] VITALS: RESP 20; TEMP 98; O2SAT 99
--- NOTE | 2017-07-23 21:48 | C.PDOC ---
History Of Present Illness 56 year old male presents to the emergency department for alcohol intoxication. The patient is well known to the emergency room and has a history of multiple prior visits for ETOH intoxication. Patient admits to ETOH use today, and has no other medical complaints at this time. He is requesting a place to stay overnight. He denies suicidal ideation, homicidal ideation, fever, chills, shortness of breath, cough, chest pain, palpitations, abdominal pain, nausea, vomiting, dysuria, hematuria, headache, and dizziness. Chief Complaint (Nursing): Substance Abuse History Per: Patient History/Exam Limitations: no limitations Current Symptoms Are (Timing): Still Present Modifying Factor(s): Alcohol Associated Symptoms: denies: Suicidal Thoughts, Suicidal Plan Recent travel outside of the [place]: No Past Medical History Reviewed: Historical Data, Nursing Documentation, Vital Signs Vital Signs: Last Vital Signs Temp 98.0 F 07/23/17 21:08 Pulse 87 07/23/17 21:08 Resp 20 07/23/17 21:08 BP 112/73 07/23/17 21:08 Pulse Ox 99 07/24/17 05:03 - Medical History PMH: Anxiety, Arthritis, Bronchitis, CAD, Depression, 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 remote mortgage underwriter, not aware), Fractures (Rt. Fa.), Gastritis, Gall Bladder Disease (s/p cholecystectomy), HTN, Post Traumatic Stress Disorder, Rheumatoid Arthritis, Seizures, Chronic Pain Surgical History: Cholecystectomy - [facility] Procedures ALCOHOL DETOXIFICATION (07/04/15) APPLICATION OF SPLINT (03/20/13) CLOSURE SKIN & SUBCUTANEOUS NEC (08/14/13) DETOXIFICATION SERVICES FOR SUBSTANCE ABUSE TREATMENT (03/22/16) ESOPHAGOGASTRODUODENOSCOPY [EGD] W/CLOSED BIOPSY (02/16/15) OTHER GROUP THERAPY (03/12/13) PHYSICAL THERAPY NEC (07/04/15) TETANUS TOXOID ADMINIST (01/19/14) Family History: States: Unknown Family Hx - Social History Hx Tobacco Use: No Hx Alcohol Use: Yes Hx Substance Use: No - Immunization History Hx Tetanus Toxoid Vaccination: Yes Hx Influenza Vaccination: No Hx Pneumococcal Vaccination: No Review Of Systems Except As Marked, All Systems Reviewed And Found Negative. Constitutional: Negative for: Fever, Chills Cardiovascular: Negative for: Chest Pain, Palpitations Respiratory: Negative for: Cough, Shortness of Breath, Wheezing Gastrointestinal: Negative for: Nausea, Vomiting Skin: Negative for: Rash Neurological: Negative for: Headache, Dizziness Physical Exam - Physical Exam Appears: Non-toxic, No Acute Distress Skin: Normal Color, Warm, Dry Head: Atraumatic, Normacephalic Oral Mucosa: Moist Neck: Normal ROM, Supple Chest: Symmetrical Cardiovascular: Rhythm Regular, No Murmur Respiratory: Normal Breath Sounds, No Rales, No Rhonchi, No Wheezing Gastrointestinal/Abdominal: Soft, No Tenderness, No Guarding, No Rebound Back: Normal Inspection Extremity: Normal ROM, Capillary Refill (< 2 sec. ) Neurological/Psych: Oriented x3, Normal Speech, Normal Cognition ED Course And Treatment O2 Sat by Pulse Oximetry: 99 (RA) Pulse Ox Interpretation: Normal Disposition Counseled Patient/Family Regarding: Diagnosis - Disposition Referrals: [facility] [Outside] Disposition: HOME/ ROUTINE Disposition Time: 05:03 Condition: STABLE Instructions: Abuse of Alcohol (ED) Forms: [employer] Connect (Filipino) - POA Present On Arrival: None - Clinical Impression Clinical Impression: Alcohol intoxication - Scribe Statement The provider has reviewed the documentation as recorded by the Scribe Miguel Angel Castro All medical record entries made by the Scribe were at my direction and personally dictated by me. I have reviewed the chart and agree that the record accurately reflects my personal performance of the history, physical exam, medical decision making, and the department course for this patient. I have also personally directed, reviewed, and agree with the discharge instructions and disposition.
[2017-07-24 05:16] VITALS: BP 140/81; PULSE 90
== END 2017-07-24 04:30 | disposition home or self-care (01) ==
LOC: C.ER 19:37
DX: F10.129 Alcohol abuse with intoxication, unspecified (principal); Y90.9 Presence of alcohol in blood, level not specified

== ENCOUNTER 2017-07-24 20:24 | Observation (INO) | payer MEDICAID ==
[2017-07-24 20:25] VITALS: BMI 23.1
[2017-07-24 21:00] VITALS: RESP 18; O2SAT 96
--- NOTE | 2017-07-24 21:01 | C.PDOC ---
History Of Present Illness Patient is a 56 y/o male who presents to the ED with a complaint of acute EtOH intoxication. Patient admits to drinking alcohol today and is a frequent ED visitor. Patient has an unsteady gait. Denies any fever or chills. No other complaints at this time. Time Seen by Provider: 07/24/17 21:01 Chief Complaint (Nursing): Substance Abuse History Per: Patient History/Exam Limitations: no limitations Onset/Duration Of Symptoms: Hrs Current Symptoms Are (Timing): Still Present Modifying Factor(s): Alcohol Recent travel outside of the [place]: No Past Medical History Reviewed: Historical Data, Nursing Documentation, Vital Signs Vital Signs: Last Vital Signs Temp 98.4 F 07/24/17 20:58 Pulse 91 H 07/25/17 00:25 Resp 18 07/25/17 00:25 BP 104/65 07/25/17 00:25 Pulse Ox 96 07/25/17 04:32 - Medical History PMH: Anxiety, Arthritis, Bronchitis, CAD, Depression, 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 board writer, not aware), Fractures (Rt. Fa.), Gastritis, Gall Bladder Disease (s/p cholecystectomy), HTN, Post Traumatic Stress Disorder, Rheumatoid Arthritis, Seizures, Chronic Pain Denies: Chronic Kidney Disease Surgical History: Cholecystectomy - [facility] Procedures ALCOHOL DETOXIFICATION (07/04/15) APPLICATION OF SPLINT (03/20/13) CLOSURE SKIN & SUBCUTANEOUS NEC (08/14/13) DETOXIFICATION SERVICES FOR SUBSTANCE ABUSE TREATMENT (03/22/16) ESOPHAGOGASTRODUODENOSCOPY [EGD] W/CLOSED BIOPSY (02/16/15) OTHER GROUP THERAPY (03/12/13) PHYSICAL THERAPY NEC (07/04/15) TETANUS TOXOID ADMINIST (01/19/14) Family History: States: Unknown Family Hx - Social History Hx Tobacco Use: No Hx Alcohol Use: Yes Hx Substance Use: No - Immunization History Hx Tetanus Toxoid Vaccination: Yes Hx Influenza Vaccination: No Hx Pneumococcal Vaccination: No Review Of Systems Constitutional: Negative for: Fever, Chills Cardiovascular: Negative for: Chest Pain Respiratory: Negative for: Shortness of Breath Gastrointestinal: Negative for: Nausea, Vomiting, Abdominal Pain Physical Exam - Physical Exam Appears: Well, Non-toxic, Other (AAOx3) Skin: Warm, Dry Head: Normacephalic Oral Mucosa: Moist Chest: Symmetrical Cardiovascular: Rhythm Regular, No Murmur Respiratory: No Rales, No Rhonchi, No Wheezing Gastrointestinal/Abdominal: Soft, No Tenderness Neurological/Psych: Oriented x3 ED Course And Treatment O2 Sat by Pulse Oximetry: 96 ED OBSERVATION Discharge: Yes Date of observation admission: 07/24/17 - Observation admission statement Patient is placed on observation because of need: for resolution of acute symptoms - Goals of Observation Goals of Observation: Clinical sobriety - Progress Note Time:: 21:05 Observation Progress Note: Patient is awake, vitals are stable, but symptoms persist Progress Note: 07/25/17 04:31 vitals stable Disposition Counseled Patient/Family Regarding: Studies Performed, Diagnosis - Disposition Disposition: HOME/ ROUTINE Disposition Time: 21:01 Condition: FAIR - Clinical Impression Clinical Impression: Alcohol intoxication - Scribe Statement The provider has reviewed the documentation as recorded by the Scribe Yamilet Madrigal All medical record entries made by the Rominaibe were at my direction and personally dictated by me. I have reviewed the chart and agree that the record accurately reflects my personal performance of the history, physical exam, medical decision making, and the department course for this patient. I have also personally directed, reviewed, and agree with the discharge instructions and disposition.
[2017-07-25 05:08] VITALS: BP 110/69; PULSE 90; TEMP 98.5
== END 2017-07-25 05:00 | disposition home or self-care (01) ==
LOC: C.ER 20:24 → C.9OBSV 21:03
PROVIDERS: ADMIT Emergency Medicine; ATTEND Emergency Medicine
DX: F10.129 Alcohol abuse with intoxication, unspecified (principal); Y90.9 Presence of alcohol in blood, level not specified
CPT/HCPCS: G0378 ×2

== ENCOUNTER 2017-07-25 20:56 | Observation (INO) | payer MEDICAID, OTHER ==
--- NOTE | 2017-07-25 21:20 | C.PDOC ---
History Of Present Illness Patient presents to the ER with acute ETOH intoxication. Denies physical complaints at this time. Time Seen by Provider: 07/25/17 21:19 History Per: Patient History/Exam Limitations: no limitations Onset/Duration Of Symptoms: Hrs Current Symptoms Are (Timing): Still Present Suicide/Self Injury Attempted (Context): None Modifying Factor(s): Alcohol Severity: None Pain Scale Rating Of: 0 Associated Symptoms: denies: Depression, Suicidal Thoughts, Suicidal Plan Involuntary Hold By: None Recent travel outside of the [place]: No Past Medical History Reviewed: Historical Data, Nursing Documentation, Vital Signs Vital Signs: Last Vital Signs Temp 97.6 F 07/26/17 05:19 Pulse 78 07/26/17 05:19 Resp 20 07/26/17 05:19 BP 138/78 07/26/17 05:19 Pulse Ox 98 07/26/17 05:19 - Medical History PMH: Anxiety, Arthritis, Bronchitis, CAD, Depression, 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 film writer, not aware), Fractures (Rt. Fa.), Gastritis, Gall Bladder Disease (s/p cholecystectomy), HTN, Post Traumatic Stress Disorder, Rheumatoid Arthritis, Seizures, Chronic Pain Surgical History: Cholecystectomy - [facility] Procedures ALCOHOL DETOXIFICATION (07/04/15) APPLICATION OF SPLINT (03/20/13) CLOSURE SKIN & SUBCUTANEOUS NEC (08/14/13) DETOXIFICATION SERVICES FOR SUBSTANCE ABUSE TREATMENT (03/22/16) ESOPHAGOGASTRODUODENOSCOPY [EGD] W/CLOSED BIOPSY (02/16/15) OTHER GROUP THERAPY (03/12/13) PHYSICAL THERAPY NEC (07/04/15) TETANUS TOXOID ADMINIST (01/19/14) Family History: States: No Known Family Hx - Social History Hx Tobacco Use: No Hx Alcohol Use: Yes Hx Substance Use: No - Immunization History Hx Tetanus Toxoid Vaccination: Yes Hx Influenza Vaccination: No Hx Pneumococcal Vaccination: No Review Of Systems Constitutional: Negative for: Fever, Chills Gastrointestinal: Negative for: Nausea, Vomiting, Diarrhea Physical Exam - Physical Exam Appears: Non-toxic, No Acute Distress, Other (ETOH on breath) Skin: Warm, Dry Head: Normacephalic Oral Mucosa: Moist Chest: Symmetrical Cardiovascular: Rhythm Regular Respiratory: No Rales, No Rhonchi, No Wheezing Gastrointestinal/Abdominal: Soft, No Tenderness Neurological/Psych: Oriented x3 ED OBSERVATION Discharge: Yes Date of observation admission: 07/25/17 Time of observation admission: 21:20 - Observation admission statement Patient is placed on observation because of need: for serial examinations to determine stability for disposition - Goals of Observation Goals of Observation: Clinical sobriety - Progress Note Time:: 21:20 Observation Progress Note: Patient is awake, vitals are stable, but symptoms persist Progress Note: 07/26/17 01:57 vitals stable 07/26/17 04:58 no complaints 07/26/17 05:58 Disposition Counseled Patient/Family Regarding: Studies Performed, Diagnosis - Disposition Disposition: HOME/ ROUTINE Disposition Time: 21:20 Condition: FAIR - Clinical Impression Clinical Impression: Alcohol intoxication - Scribe Statement The provider has reviewed the documentation as recorded by the Scribjosé miguel Ramirez All medical record entries made by the Rominaibjosé miguel were at my direction and personally dictated by me. I have reviewed the chart and agree that the record accurately reflects my personal performance of the history, physical exam, medical decision making, and the department course for this patient. I have also personally directed, reviewed, and agree with the discharge instructions and disposition.
[2017-07-25 21:22] VITALS: BMI 26.4
[2017-07-25 21:30] VITALS: RESP 20
[2017-07-26 05:20] VITALS: BP 138/78; PULSE 78; TEMP 97.6; O2SAT 98
== END 2017-07-26 05:59 | disposition home or self-care (01) ==
LOC: C.ER 20:56 → C.9OBSV 21:21
PROVIDERS: ADMIT Emergency Medicine; ATTEND Emergency Medicine
DX: F10.129 Alcohol abuse with intoxication, unspecified (principal); E11.9 Type 2 diabetes mellitus without complications; I25.10 Atherosclerotic heart disease of native coronary artery without angina pectoris; M06.9 Rheumatoid arthritis, unspecified; F32.9 Major depressive disorder, single episode, unspecified
CPT/HCPCS: 82948; 99284; G0378

== ENCOUNTER 2017-07-26 19:47 | Emergency (ER) | payer MEDICAID, OTHER ==
[2017-07-26 19:47] VITALS: BMI 26.4
[2017-07-26 20:38] VITALS: O2SAT 96
[2017-07-26 23:03] VITALS: BP 146/96; PULSE 86; RESP 18; TEMP 97.7
--- NOTE | 2017-07-27 00:54 | C.PDOC ---
History Of Present Illness 56 year old male who presents to the ER with acute ETOH intoxication. Denies physical complaints at this time. Time Seen by Provider: 07/26/17 23:19 Chief Complaint (Nursing): Substance Abuse History Per: Patient History/Exam Limitations: no limitations Onset/Duration Of Symptoms: Hrs Current Symptoms Are (Timing): Still Present Suicide/Self Injury Attempted (Context): None Modifying Factor(s): Alcohol Associated Symptoms: denies: Depression, Suicidal Thoughts, Suicidal Plan Involuntary Hold By: None Recent travel outside of the [place]: No Past Medical History Reviewed: Historical Data, Nursing Documentation, Vital Signs Vital Signs: Last Vital Signs Temp 97.7 F 07/26/17 23:02 Pulse 86 07/26/17 23:02 Resp 18 07/26/17 23:02 BP 146/96 H 07/26/17 23:02 Pulse Ox 96 07/27/17 00:53 - Medical History PMH: Anxiety, Arthritis, Bronchitis, CAD, Depression, 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 screen writer, not aware), Fractures (Rt. Fa.), Gastritis, Gall Bladder Disease (s/p cholecystectomy), HTN, Post Traumatic Stress Disorder, Rheumatoid Arthritis, Seizures, Chronic Pain Surgical History: Cholecystectomy - [facility] Procedures ALCOHOL DETOXIFICATION (07/04/15) APPLICATION OF SPLINT (03/20/13) CLOSURE SKIN & SUBCUTANEOUS NEC (08/14/13) DETOXIFICATION SERVICES FOR SUBSTANCE ABUSE TREATMENT (03/22/16) ESOPHAGOGASTRODUODENOSCOPY [EGD] W/CLOSED BIOPSY (02/16/15) OTHER GROUP THERAPY (03/12/13) PHYSICAL THERAPY NEC (07/04/15) TETANUS TOXOID ADMINIST (01/19/14) Family History: States: Unknown Family Hx - Social History Hx Tobacco Use: No Hx Alcohol Use: Yes Hx Substance Use: No - Immunization History Hx Tetanus Toxoid Vaccination: Yes Hx Influenza Vaccination: No Hx Pneumococcal Vaccination: No Review Of Systems Except As Marked, All Systems Reviewed And Found Negative. Constitutional: Positive for: Other (Intoxicated). Negative for: Fever, Chills Physical Exam - Physical Exam Additional Physical Exam Comments: Constitutional: ETOH on breath. Head: Normocephalic. Atraumatic. Eyes: PERRL. EOMI. ENT: Moist mucous membranes. Neck: Supple. Cardiovascular: Regular rate. Radial pulses 2+ bilaterally. Chest: No tenderness. Respiratory: Clear to auscultation bilaterally. GI: Soft. Nontender. Nondistended. Back: No CVA tenderness. Musculoskeletal: No tenderness or swelling of extremities. Skin: No rash. Neurologic: Alert, no focal deficit. ED Course And Treatment O2 Sat by Pulse Oximetry: 96 Disposition - Disposition Disposition: ELOPEMENT - ER ONLY Disposition Time: 00:53 Condition: STABLE Forms: [facility] (Arabic) - Clinical Impression Clinical Impression: Alcohol intoxication - Scribe Statement The provider has reviewed the documentation as recorded by the Scribjosé miguel Ramirez All medical record entries made by the Rominaibjosé miguel were at my direction and personally dictated by me. I have reviewed the chart and agree that the record accurately reflects my personal performance of the history, physical exam, medical decision making, and the department course for this patient. I have also personally directed, reviewed, and agree with the discharge instructions and disposition.
== END 2017-07-27 00:40 | disposition left against medical advice (07) ==
LOC: C.ER 19:47
DX: F10.129 Alcohol abuse with intoxication, unspecified (principal)

== ENCOUNTER 2017-07-28 21:20 | Emergency (ER) | payer MEDICAID ==
[2017-07-28 21:20] VITALS: BMI 26.4
[2017-07-28 22:46] VITALS: BP 137/79; PULSE 84; RESP 20; TEMP 98; O2SAT 96
== END 2017-07-28 22:03 | disposition left against medical advice (07) ==
LOC: C.ER 21:20
DX: Z02.89 Encounter for other administrative examinations (principal)

== ENCOUNTER 2017-07-29 21:51 | Emergency (ER) | payer MEDICAID ==
[2017-07-29 21:52] VITALS: BMI 26.4
--- NOTE | 2017-07-29 22:02 | C.PDOC ---
History Of Present Illness Patient brought to ED by EMS with acute ETOH intoxication. 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 Patient denies any physical complaints at this time. Time Seen by Provider: 07/29/17 22:02 Chief Complaint (Nursing): Substance Abuse History Per: Patient History/Exam Limitations: no limitations Onset/Duration Of Symptoms: Hrs Current Symptoms Are (Timing): Still Present Suicide/Self Injury Attempted (Context): None Modifying Factor(s): Alcohol Severity: Mild Pain Scale Rating Of: 2 Associated Symptoms: denies: Anxiety, Suicidal Thoughts Involuntary Hold By: None Recent travel outside of the [place]: No Past Medical History Reviewed: Historical Data, Nursing Documentation, Vital Signs Vital Signs: Last Vital Signs Temp 97.9 F 07/29/17 22:00 Pulse 76 07/30/17 02:11 Resp 18 07/30/17 02:11 BP 142/77 07/30/17 02:11 Pulse Ox 98 07/30/17 02:11 - Medical History PMH: Anxiety, Arthritis, Bronchitis, CAD, Depression, 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 medical writer, not aware), Fractures (Rt. Fa.), Gastritis, Gall Bladder Disease (s/p cholecystectomy), HTN, Post Traumatic Stress Disorder, Rheumatoid Arthritis, Seizures, Chronic Pain Surgical History: Cholecystectomy - [facility] Procedures ALCOHOL DETOXIFICATION (07/04/15) APPLICATION OF SPLINT (03/20/13) CLOSURE SKIN & SUBCUTANEOUS NEC (08/14/13) DETOXIFICATION SERVICES FOR SUBSTANCE ABUSE TREATMENT (03/22/16) ESOPHAGOGASTRODUODENOSCOPY [EGD] W/CLOSED BIOPSY (02/16/15) OTHER GROUP THERAPY (03/12/13) PHYSICAL THERAPY NEC (07/04/15) TETANUS TOXOID ADMINIST (01/19/14) Family History: States: No Known Family Hx - Social History Hx Tobacco Use: No Hx Alcohol Use: Yes Hx Substance Use: No - Immunization History Hx Tetanus Toxoid Vaccination: Yes Hx Influenza Vaccination: No Hx Pneumococcal Vaccination: No Review Of Systems Constitutional: Negative for: Fever, Chills Cardiovascular: Negative for: Chest Pain Respiratory: Negative for: Shortness of Breath Gastrointestinal: Negative for: Nausea, Vomiting Skin: Negative for: Rash Psych: Negative for: Anxiety, Suicidal ideation Physical Exam - Physical Exam Appears: No Acute Distress, Other (Intoxicated, ETOH on breath) Skin: Warm, Dry, No Rash Head: Normacephalic Oral Mucosa: Moist Cardiovascular: Rhythm Regular Respiratory: No Rales, No Rhonchi, No Wheezing Gastrointestinal/Abdominal: Soft, No Tenderness, No Guarding, No Rebound Neurological/Psych: Oriented x3 ED Course And Treatment O2 Sat by Pulse Oximetry: 100 (RA) Pulse Ox Interpretation: Normal Disposition Counseled Patient/Family Regarding: Studies Performed, Diagnosis, Need For Followup - Disposition Referrals: [facility] [Outside] Disposition: HOME/ ROUTINE Disposition Time: 22:02 Condition: FAIR Instructions: Alcohol Intoxication (DC) Forms: [employer] (Slovak) - Clinical Impression Clinical Impression: Alcohol intoxication, Alcoholism /alcohol abuse - Scribe Statement The provider has reviewed the documentation as recorded by the Scribjosé miguel Contreras All medical record entries made by the Rominaibjosé miguel were at my direction and personally dictated by me. I have reviewed the chart and agree that the record accurately reflects my personal performance of the history, physical exam, medical decision making, and the department course for this patient. I have also personally directed, reviewed, and agree with the discharge instructions and disposition.
[2017-07-29 22:04] VITALS: RESP 18; TEMP 97.9
[2017-07-30 02:13] VITALS: BP 142/77; PULSE 76
[2017-07-30 05:22] VITALS: O2SAT 100
== END 2017-07-30 05:30 | disposition home or self-care (01) ==
LOC: C.ER 21:51 → SUPCPDRO 21:51 → C.ER 07-30 05:30
DX: F10.229 Alcohol dependence with intoxication, unspecified (principal); Y90.9 Presence of alcohol in blood, level not specified

== ENCOUNTER 2017-07-30 23:10 | Emergency (ER) | payer MEDICAID ==
[2017-07-30 23:11] VITALS: BMI 26.4
--- NOTE | 2017-07-30 23:17 | C.PDOC ---
History Of Present Illness Patient presents to the ED with acute ETOH intoxication. Patient denies any physical complaints. Time Seen by Provider: 07/30/17 23:15 History Per: Patient History/Exam Limitations: no limitations Onset/Duration Of Symptoms: Hrs, Sudden Onset Suicide/Self Injury Attempted (Context): None Modifying Factor(s): Alcohol Severity: None Pain Scale Rating Of: 0 Associated Symptoms: denies: Suicidal Thoughts, Suicidal Plan Recent travel outside of the [place]: No Additional History Per: Patient Past Medical History Reviewed: Historical Data, Nursing Documentation, Vital Signs Vital Signs: Last Vital Signs Temp 98.1 F 07/30/17 23:50 Pulse 79 07/30/17 23:50 Resp 18 07/30/17 23:50 BP 137/90 07/30/17 23:50 Pulse Ox 97 07/31/17 00:17 - Medical History PMH: Anxiety, Arthritis, Bronchitis, CAD, Depression, 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 creative writer, not aware), Fractures (Rt. Fa.), Gastritis, Gall Bladder Disease (s/p cholecystectomy), HTN, Post Traumatic Stress Disorder, Rheumatoid Arthritis, Seizures, Chronic Pain Denies: Chronic Kidney Disease Surgical History: Cholecystectomy - [facility] Procedures ALCOHOL DETOXIFICATION (07/04/15) APPLICATION OF SPLINT (03/20/13) CLOSURE SKIN & SUBCUTANEOUS NEC (08/14/13) DETOXIFICATION SERVICES FOR SUBSTANCE ABUSE TREATMENT (03/22/16) ESOPHAGOGASTRODUODENOSCOPY [EGD] W/CLOSED BIOPSY (02/16/15) OTHER GROUP THERAPY (03/12/13) PHYSICAL THERAPY NEC (07/04/15) TETANUS TOXOID ADMINIST (01/19/14) Family History: States: Unknown Family Hx - Social History Hx Tobacco Use: No Hx Alcohol Use: Yes Hx Substance Use: No - Immunization History Hx Tetanus Toxoid Vaccination: Yes Hx Influenza Vaccination: No Hx Pneumococcal Vaccination: No Review Of Systems Constitutional: Negative for: Fever Gastrointestinal: Negative for: Nausea, Vomiting Skin: Positive for: Other (bed bugs) Neurological: Negative for: Altered Mental Status Psych: Negative for: Anxiety, Depression, Suicidal ideation Physical Exam - Physical Exam Appears: Non-toxic, Other (ETOH on breath) Skin: Warm, Dry Head: Normacephalic Oral Mucosa: Moist Chest: Symmetrical Cardiovascular: Rhythm Regular Respiratory: No Rales, No Rhonchi, No Wheezing Gastrointestinal/Abdominal: Soft, No Tenderness Neurological/Psych: Oriented x3 Gait: Unsteady ED Course And Treatment O2 Sat by Pulse Oximetry: 97 (room air) Pulse Ox Interpretation: Normal Reevaluation Time: 05:12 Reassessment Condition: Improved Disposition Counseled Patient/Family Regarding: Studies Performed, Diagnosis, Need For Followup - Disposition Referrals: [facility] [Outside] Disposition: HOME/ ROUTINE Disposition Time: 23:16 Condition: FAIR Instructions: Alcohol Intoxication (DC), Bed Bugs (ED) - Clinical Impression Clinical Impression: Alcohol abuse with intoxication, Infestation by bed bug - Scribe Statement The provider has reviewed the documentation as recorded by the Jada Lopez Provider Attestation: All medical record entries made by the Jada were at my direction and personally dictated by me. I have reviewed the chart and agree that the record accurately reflects my personal performance of the history, physical exam, medical decision making, and the department course for this patient. I have also personally directed, reviewed, and agree with the discharge instructions and disposition.
[2017-07-30 23:53] VITALS: RESP 18; TEMP 98.1
[2017-07-31] MEDS ORDERED: Permethrin 5% Cream(60 gm) TOP ONE (00:18)
[2017-07-31 06:31] VITALS: BP 142/81; PULSE 74; O2SAT 99
== END 2017-07-31 06:31 | disposition home or self-care (01) ==
LOC: C.ER 23:10
DX: F10.120 Alcohol abuse with intoxication, uncomplicated (principal); Y90.9 Presence of alcohol in blood, level not specified; B88.8 Other specified infestations; E11.9 Type 2 diabetes mellitus without complications

== ENCOUNTER 2017-07-31 22:28 | Emergency (ER) | payer MEDICAID ==
[2017-07-31 22:39] VITALS: BMI 24.3
[2017-07-31 22:43] VITALS: RESP 16; TEMP 97.8
--- NOTE | 2017-08-01 01:00 | C.PDOC ---
History Of Present Illness Patient is a 56 y/o male who presents to the ED with complaint of acute EtOH intoxication. Patient has Hx of SI, depression, and anxiety. Patient frequently visits ED with similar complaints. Denies fever or chills. No other physical complaints at this time. Chief Complaint (Nursing): Substance Abuse History Per: Patient History/Exam Limitations: no limitations Onset/Duration Of Symptoms: Hrs Current Symptoms Are (Timing): Still Present Modifying Factor(s): Alcohol Associated Symptoms: Suicidal Thoughts Recent travel outside of the [place]: No Additional History Per: Patient Past Medical History Reviewed: Historical Data, Nursing Documentation, Vital Signs Vital Signs: Last Vital Signs Temp 97.8 F 07/31/17 22:41 Pulse 83 08/01/17 02:51 Resp 16 08/01/17 02:51 BP 138/86 08/01/17 02:51 Pulse Ox 97 08/01/17 03:47 - Medical History PMH: Anxiety, Arthritis, Bronchitis, CAD, Depression, 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), Fractures (Rt. Fa.), Gastritis, Gall Bladder Disease (s/p cholecystectomy), HTN, Post Traumatic Stress Disorder, Rheumatoid Arthritis, Seizures, Chronic Pain Denies: Chronic Kidney Disease Surgical History: Cholecystectomy - [facility] Procedures ALCOHOL DETOXIFICATION (07/04/15) APPLICATION OF SPLINT (03/20/13) CLOSURE SKIN & SUBCUTANEOUS NEC (08/14/13) DETOXIFICATION SERVICES FOR SUBSTANCE ABUSE TREATMENT (03/22/16) ESOPHAGOGASTRODUODENOSCOPY [EGD] W/CLOSED BIOPSY (02/16/15) OTHER GROUP THERAPY (03/12/13) PHYSICAL THERAPY NEC (07/04/15) TETANUS TOXOID ADMINIST (01/19/14) Family History: States: Unknown Family Hx - Social History Hx Tobacco Use: No Hx Alcohol Use: Yes Hx Substance Use: No - Immunization History Hx Tetanus Toxoid Vaccination: Yes Hx Influenza Vaccination: No Hx Pneumococcal Vaccination: No Review Of Systems Constitutional: Negative for: Fever, Chills Cardiovascular: Negative for: Chest Pain Respiratory: Negative for: Shortness of Breath Gastrointestinal: Negative for: Nausea, Vomiting Neurological: Positive for: Incoordination Psych: Positive for: Anxiety, Depression Physical Exam - Physical Exam Appears: No Acute Distress, Other (intoxicated; EtOH on breath. ) Skin: Normal Color, Warm, Dry Head: Atraumatic, Normacephalic Oral Mucosa: Moist Chest: Symmetrical Cardiovascular: Rhythm Regular, No Murmur Respiratory: Normal Breath Sounds, No Rales, No Rhonchi, No Wheezing Gastrointestinal/Abdominal: Soft, No Tenderness Neurological/Psych: Oriented x3, Other Gait: Unsteady ED Course And Treatment O2 Sat by Pulse Oximetry: 97 (room air) Pulse Ox Interpretation: Normal Disposition Counseled Patient/Family Regarding: Diagnosis - Disposition Referrals: [facility] [Outside] Disposition: HOME/ ROUTINE Disposition Time: 05:43 Condition: STABLE Instructions: Abuse of Alcohol (ED) Forms: [employer] (Greenlandic) - POA Present On Arrival: None - Clinical Impression Clinical Impression: Alcohol intoxication, Alcohol abuse - Scribe Statement The provider has reviewed the documentation as recorded by the Scribe Yamilet Madrigal All medical record entries made by the Scribe were at my direction and personally dictated by me. I have reviewed the chart and agree that the record accurately reflects my personal performance of the history, physical exam, medical decision making, and the department course for this patient. I have also personally directed, reviewed, and agree with the discharge instructions and disposition.
[2017-08-01 02:52] VITALS: BP 138/86; PULSE 83
[2017-08-01 03:47] VITALS: O2SAT 97
== END 2017-08-01 06:15 | disposition home or self-care (01) ==
LOC: C.ER 22:28
DX: F10.129 Alcohol abuse with intoxication, unspecified (principal); Y90.9 Presence of alcohol in blood, level not specified

== ENCOUNTER 2017-08-01 21:44 | Emergency (ER) | payer MEDICAID ==
[2017-08-01 21:44] VITALS: BMI 24.3
--- NOTE | 2017-08-01 22:47 | C.PDOC ---
History Of Present Illness 56 year old male brought in by EMS after being found intoxicated in public with a bottle of vodka in his hand. Patient has no physical complaints at his time. Chief Complaint (Nursing): Substance Abuse History Per: Patient History/Exam Limitations: no limitations Onset/Duration Of Symptoms: Hrs Current Symptoms Are (Timing): Still Present Suicide/Self Injury Attempted (Context): None Modifying Factor(s): Alcohol Associated Symptoms: denies: Depression, Suicidal Thoughts, Suicidal Plan Involuntary Hold By: None Recent travel outside of the [place]: No Past Medical History Reviewed: Historical Data, Nursing Documentation, Vital Signs Vital Signs: Last Vital Signs Temp 98 F 08/02/17 05:29 Pulse 85 08/02/17 05:29 Resp 16 08/02/17 05:29 BP 125/76 08/02/17 05:29 Pulse Ox 97 08/02/17 05:34 - Medical History PMH: Anxiety, Arthritis, Bronchitis, CAD, Depression, 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 policy writer sales, not aware), Fractures (Rt. Fa.), Gastritis, Gall Bladder Disease (s/p cholecystectomy), HTN, Post Traumatic Stress Disorder, Rheumatoid Arthritis, Seizures, Chronic Pain Surgical History: Cholecystectomy - [facility] Procedures ALCOHOL DETOXIFICATION (07/04/15) APPLICATION OF SPLINT (03/20/13) CLOSURE SKIN & SUBCUTANEOUS NEC (08/14/13) DETOXIFICATION SERVICES FOR SUBSTANCE ABUSE TREATMENT (03/22/16) ESOPHAGOGASTRODUODENOSCOPY [EGD] W/CLOSED BIOPSY (02/16/15) OTHER GROUP THERAPY (03/12/13) PHYSICAL THERAPY NEC (07/04/15) TETANUS TOXOID ADMINIST (01/19/14) Family History: States: Unknown Family Hx - Social History Hx Tobacco Use: No Hx Alcohol Use: Yes Hx Substance Use: No - Immunization History Hx Tetanus Toxoid Vaccination: Yes Hx Influenza Vaccination: No Hx Pneumococcal Vaccination: No Review Of Systems Constitutional: Positive for: Other (Inebriated). Negative for: Fever, Chills Gastrointestinal: Negative for: Nausea, Vomiting, Diarrhea Physical Exam - Physical Exam Appears: Non-toxic, No Acute Distress, Other (Arousable, ETOH on breath) Skin: Normal Color, Warm, Dry Head: Atraumatic, Normacephalic Oral Mucosa: Moist Chest: Symmetrical Cardiovascular: Rhythm Regular Respiratory: Normal Breath Sounds, No Rales, No Rhonchi, No Wheezing Gastrointestinal/Abdominal: Soft, No Tenderness Neurological/Psych: Oriented x3 Additional Physical Exam Comments: No signs of injury or trauma noted. ED Course And Treatment O2 Sat by Pulse Oximetry: 97 (Room air) Pulse Ox Interpretation: Normal Disposition - Disposition Referrals: [facility] [Outside] Disposition: HOME/ ROUTINE Disposition Time: 05:23 Condition: FAIR Forms: [employer] [facility] (Djiboutian) - Clinical Impression Clinical Impression: Alcohol intoxication, Alcohol abuse counseling and surveillance of alcoholic - Scribe Statement The provider has reviewed the documentation as recorded by the Scribjosé miguel Ramirez All medical record entries made by the Rominaibe were at my direction and personally dictated by me. I have reviewed the chart and agree that the record accurately reflects my personal performance of the history, physical exam, medical decision making, and the department course for this patient. I have also personally directed, reviewed, and agree with the discharge instructions and disposition.
[2017-08-02 02:46] VITALS: TEMP 98
[2017-08-02 05:30] VITALS: BP 125/76; PULSE 85; RESP 16
[2017-08-02 05:34] VITALS: O2SAT 97
== END 2017-08-02 05:31 | disposition home or self-care (01) ==
LOC: C.ER 21:44
DX: F10.129 Alcohol abuse with intoxication, unspecified (principal); Y90.9 Presence of alcohol in blood, level not specified

== ENCOUNTER 2017-08-02 20:22 | Emergency (ER) | payer MEDICAID ==
[2017-08-02 20:22] VITALS: BMI 24.3
[2017-08-02 20:32] VITALS: O2SAT 98
--- NOTE | 2017-08-02 20:36 | C.PDOC ---
History Of Present Illness 56 y/o male presents to the ER with acute ETOH intoxication. Patient does not report any physical complaints. Time Seen by Provider: 08/02/17 20:34 Chief Complaint (Nursing): Substance Abuse History Per: Patient History/Exam Limitations: no limitations Onset/Duration Of Symptoms: Hrs Suicide/Self Injury Attempted (Context): None Modifying Factor(s): Alcohol Severity: None Pain Scale Rating Of: 0 Associated Symptoms: denies: Suicidal Thoughts, Suicidal Plan Recent travel outside of the [place]: No Past Medical History Reviewed: Historical Data, Nursing Documentation, Vital Signs Vital Signs: Last Vital Signs Temp 97.8 F 08/02/17 20:29 Pulse 80 08/02/17 20:29 Resp 18 08/02/17 20:29 BP 155/94 H 08/02/17 20:29 Pulse Ox 98 08/02/17 21:20 - Medical History PMH: Anxiety, Arthritis, Bronchitis, CAD, Depression, 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 life insurance underwriter, not aware), Fractures (Rt. Fa.), Gastritis, Gall Bladder Disease (s/p cholecystectomy), HTN, Post Traumatic Stress Disorder, Rheumatoid Arthritis, Seizures, Chronic Pain Surgical History: Cholecystectomy - [facility] Procedures ALCOHOL DETOXIFICATION (07/04/15) APPLICATION OF SPLINT (03/20/13) CLOSURE SKIN & SUBCUTANEOUS NEC (08/14/13) DETOXIFICATION SERVICES FOR SUBSTANCE ABUSE TREATMENT (03/22/16) ESOPHAGOGASTRODUODENOSCOPY [EGD] W/CLOSED BIOPSY (02/16/15) OTHER GROUP THERAPY (03/12/13) PHYSICAL THERAPY NEC (07/04/15) TETANUS TOXOID ADMINIST (01/19/14) Family History: States: No Known Family Hx - Social History Hx Tobacco Use: No Hx Alcohol Use: Yes Hx Substance Use: No - Immunization History Hx Tetanus Toxoid Vaccination: Yes Hx Influenza Vaccination: No Hx Pneumococcal Vaccination: No Review Of Systems Constitutional: Negative for: Fever Gastrointestinal: Negative for: Nausea, Vomiting Psych: Negative for: Suicidal ideation Physical Exam - Physical Exam Appears: Non-toxic, Other (ETOH on breath) Skin: Warm, Dry Head: Normacephalic Oral Mucosa: Moist Chest: Symmetrical Cardiovascular: Rhythm Regular Respiratory: No Rales, No Rhonchi, No Wheezing Gastrointestinal/Abdominal: Soft, No Tenderness Neurological/Psych: Oriented x3 ED Course And Treatment O2 Sat by Pulse Oximetry: 98 (room air) Pulse Ox Interpretation: Normal Reevaluation Time: 04:54 Reassessment Condition: Improved Disposition Counseled Patient/Family Regarding: Studies Performed, Diagnosis - Disposition Referrals: [facility] [Outside] Disposition: HOME/ ROUTINE Disposition Time: 20:35 Condition: FAIR Instructions: Alcohol Intoxication (DC) Forms: [employer] [employer] (Dutch) - Clinical Impression Clinical Impression: Chronic alcoholism, Alcohol intoxication - Scribe Statement The provider has reviewed the documentation as recorded by the Jada Lopez Provider Attestation: All medical record entries made by the Jada were at my direction and personally dictated by me. I have reviewed the chart and agree that the record accurately reflects my personal performance of the history, physical exam, medical decision making, and the department course for this patient. I have also personally directed, reviewed, and agree with the discharge instructions and disposition.
[2017-08-03 06:59] VITALS: BP 129/67; PULSE 83; RESP 20; TEMP 98
== END 2017-08-03 06:57 | disposition home or self-care (01) ==
LOC: C.ER 20:22
DX: F10.229 Alcohol dependence with intoxication, unspecified (principal); Y90.9 Presence of alcohol in blood, level not specified; E11.9 Type 2 diabetes mellitus without complications

== ENCOUNTER 2017-08-03 21:46 | Emergency (ER) | payer MEDICAID ==
[2017-08-03 21:47] VITALS: BMI 24.3
[2017-08-03 22:14] VITALS: RESP 18
--- NOTE | 2017-08-03 22:37 | C.PDOC ---
History Of Present Illness Patient presents to the ED seeking a place to sleep. Patient admits to drinking alcohol prior to arrival. He denies any physical complaints, suicidal, or homicidal ideations. Time Seen by Provider: 08/03/17 22:36 Chief Complaint (Nursing): Substance Abuse History Per: Patient History/Exam Limitations: no limitations Onset/Duration Of Symptoms: Hrs Current Symptoms Are (Timing): Still Present Suicide/Self Injury Attempted (Context): None Modifying Factor(s): Alcohol Severity: None Pain Scale Rating Of: 0 Associated Symptoms: denies: Suicidal Thoughts, Suicidal Plan Involuntary Hold By: None Recent travel outside of the [place]: No Additional History Per: Prior Records Past Medical History Reviewed: Historical Data, Nursing Documentation, Vital Signs Vital Signs: Last Vital Signs Temp 97.8 F 08/04/17 02:30 Pulse 88 08/04/17 02:30 Resp 18 08/04/17 02:30 BP 116/72 08/04/17 02:30 Pulse Ox 95 08/04/17 02:30 - Medical History PMH: Anxiety, Arthritis, Bronchitis, CAD, Depression, 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 aligner typewriter, not aware), Fractures (Rt. Fa.), Gastritis, Gall Bladder Disease (s/p cholecystectomy), HTN, Post Traumatic Stress Disorder, Rheumatoid Arthritis, Seizures, Chronic Pain Surgical History: Cholecystectomy - [facility] Procedures ALCOHOL DETOXIFICATION (07/04/15) APPLICATION OF SPLINT (03/20/13) CLOSURE SKIN & SUBCUTANEOUS NEC (08/14/13) DETOXIFICATION SERVICES FOR SUBSTANCE ABUSE TREATMENT (03/22/16) ESOPHAGOGASTRODUODENOSCOPY [EGD] W/CLOSED BIOPSY (02/16/15) OTHER GROUP THERAPY (03/12/13) PHYSICAL THERAPY NEC (07/04/15) TETANUS TOXOID ADMINIST (01/19/14) Family History: States: Unknown Family Hx - Social History Hx Tobacco Use: No Hx Alcohol Use: Yes Hx Substance Use: No - Immunization History Hx Tetanus Toxoid Vaccination: Yes Hx Influenza Vaccination: No Hx Pneumococcal Vaccination: No Review Of Systems Constitutional: Negative for: Fever, Chills Gastrointestinal: Negative for: Nausea, Vomiting Physical Exam - Physical Exam Appears: Non-toxic, No Acute Distress, Other (EtOH on breath ) Skin: Warm, Dry Head: Atraumatic Eye(s): bilateral: Normal Inspection Oral Mucosa: Moist Neck: Supple Chest: Symmetrical, No Deformity Cardiovascular: Rhythm Regular, No Murmur Respiratory: No Rales, No Rhonchi, No Wheezing Gastrointestinal/Abdominal: Soft, No Tenderness, No Distention, No Guarding, No Rebound Neurological/Psych: Oriented x3 ED Course And Treatment O2 Sat by Pulse Oximetry: 95 Pulse Ox Interpretation: Normal Disposition Counseled Patient/Family Regarding: Studies Performed, Diagnosis, Need For Followup - Disposition Referrals: [facility] at [facility] [Outside] Disposition: HOME/ ROUTINE Disposition Time: 22:36 Condition: FAIR Instructions: Alcohol Intoxication (DC) Forms: [employer] (Hungarian) - Clinical Impression Clinical Impression: Chronic alcoholism, Alcohol intoxication - Scribe Statement The provider has reviewed the documentation as recorded by the Scribe Tiffany Noel All medical record entries made by the Scribe were at my direction and personally dictated by me. I have reviewed the chart and agree that the record accurately reflects my personal performance of the history, physical exam, medical decision making, and the department course for this patient. I have also personally directed, reviewed, and agree with the discharge instructions and disposition.
[2017-08-04 03:14] VITALS: O2SAT 95
[2017-08-04 05:41] VITALS: BP 145/87; PULSE 80; TEMP 97.7
== END 2017-08-04 06:35 | disposition home or self-care (01) ==
LOC: C.ER 21:46
DX: F10.229 Alcohol dependence with intoxication, unspecified (principal); Y90.9 Presence of alcohol in blood, level not specified

== ENCOUNTER 2017-08-04 22:57 | Emergency (ER) | payer MEDICAID ==
[2017-08-04 22:57] VITALS: BMI 24.3
--- NOTE | 2017-08-04 23:17 | C.PDOC ---
History Of Present Illness 56 y/o male comes in for acute alcohol intoxication and wanting to spend a night. Patient has numerous prior visits for the same complaint. Denies SI, HI, or somatic complaints. Time Seen by Provider: 08/04/17 23:16 Chief Complaint (Nursing): Substance Abuse History Per: Patient History/Exam Limitations: no limitations Onset/Duration Of Symptoms: Hrs Current Symptoms Are (Timing): Still Present Suicide/Self Injury Attempted (Context): None Modifying Factor(s): Alcohol Severity: Mild Associated Symptoms: denies: Suicidal Thoughts, Suicidal Plan Involuntary Hold By: None Recent travel outside of the [place]: No Additional History Per: Patient Past Medical History Reviewed: Historical Data, Nursing Documentation, Vital Signs Vital Signs: Last Vital Signs Temp 98.2 F 08/05/17 04:49 Pulse 85 08/05/17 04:49 Resp 20 08/05/17 04:49 BP 158/85 H 08/05/17 04:49 Pulse Ox 97 08/05/17 04:49 - Medical History PMH: Anxiety, Arthritis, Bronchitis, CAD, Depression, 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 aware), Fractures (Rt. Fa.), Gastritis, Gall Bladder Disease (s/p cholecystectomy), HTN, Post Traumatic Stress Disorder, Rheumatoid Arthritis, Seizures, Chronic Pain Denies: Chronic Kidney Disease Surgical History: Cholecystectomy - [facility] Procedures ALCOHOL DETOXIFICATION (07/04/15) APPLICATION OF SPLINT (03/20/13) CLOSURE SKIN & SUBCUTANEOUS NEC (08/14/13) DETOXIFICATION SERVICES FOR SUBSTANCE ABUSE TREATMENT (03/22/16) ESOPHAGOGASTRODUODENOSCOPY [EGD] W/CLOSED BIOPSY (02/16/15) OTHER GROUP THERAPY (03/12/13) PHYSICAL THERAPY NEC (07/04/15) TETANUS TOXOID ADMINIST (01/19/14) Family History: States: Unknown Family Hx - Social History Hx Tobacco Use: No Hx Alcohol Use: Yes Hx Substance Use: No - Immunization History Hx Tetanus Toxoid Vaccination: Yes Hx Influenza Vaccination: No Hx Pneumococcal Vaccination: No Review Of Systems Except As Marked, All Systems Reviewed And Found Negative. Constitutional: Positive for: Other (Acute alcohol intoxication) Psych: Negative for: Suicidal ideation, Other (HI) Physical Exam - Physical Exam Appears: Non-toxic, No Acute Distress, Other (Acute alcohol intoxication. (+) AOB) Skin: Warm, Dry Head: Atraumatic, Normacephalic Oral Mucosa: Moist Chest: Symmetrical Cardiovascular: Rhythm Regular, No Murmur Respiratory: Normal Breath Sounds, No Rales, No Rhonchi, No Wheezing Gastrointestinal/Abdominal: Soft, No Tenderness Neurological/Psych: Oriented x3 Gait: Steady ED Course And Treatment Pulse Ox Interpretation: Normal Medical Decision Making Medical Decision Making: Patient has numerous visits for the same complaint. Wants a place to stay for the night. Disposition Counseled Patient/Family Regarding: Diagnosis - Disposition Referrals: [facility] at [facility] [Outside] Disposition Time: 05:12 Condition: STABLE Instructions: Abuse of Alcohol (ED), Alcohol Use Disorder (ED) Forms: [employer] (Citizen Of [place]) - POA Present On Arrival: None - Clinical Impression Clinical Impression: Alcohol abuse with intoxication - Scribe Statement The provider has reviewed the documentation as recorded by the Scribe Rhoda morillo All medical record entries made by the Scribe were at my direction and personally dictated by me. I have reviewed the chart and agree that the record accurately reflects my personal performance of the history, physical exam, medical decision making, and the department course for this patient. I have also personally directed, reviewed, and agree with the discharge instructions and disposition.
[2017-08-05 01:55] VITALS: RESP 20
[2017-08-05 04:50] VITALS: BP 158/85; PULSE 85
[2017-08-05 05:25] VITALS: TEMP 97.9; O2SAT 95
== END 2017-08-05 05:25 | disposition home or self-care (01) ==
LOC: C.ER 22:57
DX: F10.120 Alcohol abuse with intoxication, uncomplicated (principal); Y90.9 Presence of alcohol in blood, level not specified; E11.9 Type 2 diabetes mellitus without complications

== ENCOUNTER 2017-08-05 20:34 | Emergency (ER) | payer MEDICAID ==
[2017-08-05 20:34] VITALS: BMI 24.3
--- NOTE | 2017-08-05 20:50 | C.PDOC ---
History Of Present Illness Patient presents to the ER with acute ETOH intoxication; denies physical complaints at this time. Time Seen by Provider: 08/05/17 20:45 History Per: Patient History/Exam Limitations: no limitations Onset/Duration Of Symptoms: Hrs Current Symptoms Are (Timing): Still Present Suicide/Self Injury Attempted (Context): None Modifying Factor(s): Alcohol Severity: None Pain Scale Rating Of: 0 Associated Symptoms: denies: Depression, Suicidal Thoughts, Suicidal Plan Involuntary Hold By: None Recent travel outside of the [place]: No Past Medical History Reviewed: Historical Data, Nursing Documentation, Vital Signs Vital Signs: Last Vital Signs Temp 98 F 08/05/17 22:34 Pulse 92 H 08/06/17 03:44 Resp 18 08/06/17 03:44 BP 122/78 08/06/17 03:44 Pulse Ox 100 08/06/17 03:44 - Medical History PMH: Anxiety, Arthritis, Bronchitis, CAD, Depression, 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 Fa.), Gastritis, Gall Bladder Disease (s/p cholecystectomy), HTN, Post Traumatic Stress Disorder, Rheumatoid Arthritis, Seizures, Chronic Pain Surgical History: Cholecystectomy - [facility] Procedures ALCOHOL DETOXIFICATION (07/04/15) APPLICATION OF SPLINT (03/20/13) CLOSURE SKIN & SUBCUTANEOUS NEC (08/14/13) DETOXIFICATION SERVICES FOR SUBSTANCE ABUSE TREATMENT (03/22/16) ESOPHAGOGASTRODUODENOSCOPY [EGD] W/CLOSED BIOPSY (02/16/15) OTHER GROUP THERAPY (03/12/13) PHYSICAL THERAPY NEC (07/04/15) TETANUS TOXOID ADMINIST (01/19/14) Family History: States: No Known Family Hx - Social History Hx Tobacco Use: No Hx Alcohol Use: Yes Hx Substance Use: No - Immunization History Hx Tetanus Toxoid Vaccination: Yes Hx Influenza Vaccination: No Hx Pneumococcal Vaccination: No Review Of Systems Constitutional: Negative for: Fever, Chills Gastrointestinal: Negative for: Nausea, Vomiting, Diarrhea Physical Exam - Physical Exam Appears: Non-toxic, No Acute Distress, Other (ETOH on breath) Skin: Warm, Dry Head: Normacephalic Oral Mucosa: Moist Chest: Symmetrical Cardiovascular: Rhythm Regular Respiratory: No Rales, No Rhonchi, No Wheezing Gastrointestinal/Abdominal: Soft, No Tenderness Neurological/Psych: Oriented x3 ED Course And Treatment O2 Sat by Pulse Oximetry: 100 Pulse Ox Interpretation: Normal Disposition Counseled Patient/Family Regarding: Studies Performed, Diagnosis, Need For Followup - Disposition Referrals: [facility] at [facility] [Outside] Disposition: HOME/ ROUTINE Disposition Time: 20:50 Condition: FAIR Instructions: Alcohol Intoxication (DC) - Clinical Impression Clinical Impression: Alcohol intoxication, Chronic alcoholism - Scribe Statement The provider has reviewed the documentation as recorded by the Scribjosé miguel Ramirez All medical record entries made by the Rominaibjosé miguel were at my direction and personally dictated by me. I have reviewed the chart and agree that the record accurately reflects my personal performance of the history, physical exam, medical decision making, and the department course for this patient. I have also personally directed, reviewed, and agree with the discharge instructions and disposition.
[2017-08-05 22:35] VITALS: TEMP 98
[2017-08-06 03:08] VITALS: RESP 18
[2017-08-06 05:48] VITALS: BP 138/71; PULSE 75; O2SAT 98
== END 2017-08-06 05:48 | disposition home or self-care (01) ==
LOC: C.ER 20:34
DX: F10.229 Alcohol dependence with intoxication, unspecified (principal); Y90.9 Presence of alcohol in blood, level not specified

== ENCOUNTER 2017-08-06 19:38 | Emergency (ER) | payer MEDICAID ==
[2017-08-06 19:38] VITALS: BMI 24.3
[2017-08-06 20:08] VITALS: RESP 18
--- NOTE | 2017-08-06 20:10 | C.PDOC ---
Time Seen by Provider: 08/06/17 20:08 Chief Complaint (Nursing): Substance Abuse Past Medical History Vital Signs: Last Vital Signs Temp 98.3 F 08/06/17 20:07 Pulse 83 08/06/17 20:07 Resp 18 08/06/17 20:07 BP 141/97 H 08/06/17 20:07 Pulse Ox 97 08/06/17 20:07 - Medical History PMH: Anxiety, Arthritis, Bronchitis, CAD, Depression, 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 writer / runner, not aware), Fractures (Rt. Fa.), Gastritis, Gall Bladder Disease (s/p cholecystectomy), HTN, Post Traumatic Stress Disorder, Rheumatoid Arthritis, Seizures, Chronic Pain Denies: Chronic Kidney Disease Surgical History: Cholecystectomy - [facility] Procedures ALCOHOL DETOXIFICATION (07/04/15) APPLICATION OF SPLINT (03/20/13) CLOSURE SKIN & SUBCUTANEOUS NEC (08/14/13) DETOXIFICATION SERVICES FOR SUBSTANCE ABUSE TREATMENT (03/22/16) ESOPHAGOGASTRODUODENOSCOPY [EGD] W/CLOSED BIOPSY (02/16/15) OTHER GROUP THERAPY (03/12/13) PHYSICAL THERAPY NEC (07/04/15) TETANUS TOXOID ADMINIST (01/19/14) Family History: States: Unknown Family Hx - Social History Hx Tobacco Use: No Hx Alcohol Use: Yes Hx Substance Use: No - Immunization History Hx Tetanus Toxoid Vaccination: Yes Hx Influenza Vaccination: No Hx Pneumococcal Vaccination: No ED Course And Treatment O2 Sat by Pulse Oximetry: 97 Disposition Counseled Patient/Family Regarding: Studies Performed, Diagnosis, Need For Followup - Disposition Referrals: [facility] at [facility] [Outside] Disposition Time: 20:09 Condition: FAIR Instructions: Alcohol Intoxication (DC) - Clinical Impression Clinical Impression: Alcohol intoxication, Chronic alcoholism
--- NOTE | 2017-08-06 20:15 | C.PDOC ---
History Of Present Illness Patient presents to the ED with alcohol on breath, seeking a place to sleep. Patient admits to drinking alcohol earlier today and denies physical complaints , suicidal, or homicidal ideations. Time Seen by Provider: 08/06/17 20:08 Chief Complaint (Nursing): Substance Abuse History Per: Patient History/Exam Limitations: no limitations Onset/Duration Of Symptoms: Hrs Current Symptoms Are (Timing): Still Present Suicide/Self Injury Attempted (Context): None Modifying Factor(s): Alcohol Severity: None Pain Scale Rating Of: 0 Associated Symptoms: denies: Suicidal Thoughts, Suicidal Plan Involuntary Hold By: None Recent travel outside of the [place]: No Additional History Per: Prior Records Past Medical History Reviewed: Historical Data, Nursing Documentation, Vital Signs Vital Signs: Last Vital Signs Temp 98.2 F 08/07/17 04:13 Pulse 83 08/07/17 04:13 Resp 18 08/07/17 04:13 BP 147/81 08/07/17 04:13 Pulse Ox 97 08/07/17 04:13 - Medical History PMH: Anxiety, Arthritis, Bronchitis, CAD, Depression, 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), Fractures (Rt. Fa.), Gastritis, Gall Bladder Disease (s/p cholecystectomy), HTN, Post Traumatic Stress Disorder, Rheumatoid Arthritis, Seizures, Chronic Pain Surgical History: Cholecystectomy - [facility] Procedures ALCOHOL DETOXIFICATION (07/04/15) APPLICATION OF SPLINT (03/20/13) CLOSURE SKIN & SUBCUTANEOUS NEC (08/14/13) DETOXIFICATION SERVICES FOR SUBSTANCE ABUSE TREATMENT (03/22/16) ESOPHAGOGASTRODUODENOSCOPY [EGD] W/CLOSED BIOPSY (02/16/15) OTHER GROUP THERAPY (03/12/13) PHYSICAL THERAPY NEC (07/04/15) TETANUS TOXOID ADMINIST (01/19/14) Family History: States: Unknown Family Hx - Social History Hx Tobacco Use: No Hx Alcohol Use: Yes Hx Substance Use: No - Immunization History Hx Tetanus Toxoid Vaccination: Yes Hx Influenza Vaccination: No Hx Pneumococcal Vaccination: No Review Of Systems Constitutional: Negative for: Fever, Chills Cardiovascular: Negative for: Chest Pain Respiratory: Negative for: Shortness of Breath Gastrointestinal: Negative for: Nausea, Vomiting, Abdominal Pain Psych: Negative for: Suicidal ideation Physical Exam - Physical Exam Appears: Non-toxic, No Acute Distress Skin: Warm, Dry Head: Atraumatic Eye(s): bilateral: Normal Inspection Oral Mucosa: Moist Neck: Supple Chest: Symmetrical, No Deformity Cardiovascular: Rhythm Regular, No Murmur Respiratory: No Rales, No Rhonchi, No Wheezing Gastrointestinal/Abdominal: Soft, No Tenderness, No Distention, No Guarding, No Rebound Extremity: Normal ROM, No Tenderness Neurological/Psych: Oriented x3 Gait: Steady ED Course And Treatment O2 Sat by Pulse Oximetry: 97 (RA) Pulse Ox Interpretation: Normal Reevaluation Time: 05:19 Reassessment Condition: Improved Disposition Counseled Patient/Family Regarding: Studies Performed, Diagnosis, Need For Followup - Disposition Referrals: [facility] at [facility] [Outside] Disposition: HOME/ ROUTINE Disposition Time: 20:09 Condition: FAIR Instructions: Alcohol Intoxication (DC) Forms: [facility] (Georgian) - Clinical Impression Clinical Impression: Alcohol intoxication, Chronic alcoholism - Scribe Statement The provider has reviewed the documentation as recorded by the Scribjosé miguel Noel All medical record entries made by the Scribe were at my direction and personally dictated by me. I have reviewed the chart and agree that the record accurately reflects my personal performance of the history, physical exam, medical decision making, and the department course for this patient. I have also personally directed, reviewed, and agree with the discharge instructions and disposition.
[2017-08-07 02:04] VITALS: O2SAT 97
[2017-08-07 04:13] VITALS: TEMP 98.2
[2017-08-07 05:26] VITALS: BP 137/68; PULSE 84
== END 2017-08-07 05:39 | disposition home or self-care (01) ==
LOC: SUPCPDRO 19:38 → C.ER 19:38
DX: F10.229 Alcohol dependence with intoxication, unspecified (principal); Y90.9 Presence of alcohol in blood, level not specified; E11.9 Type 2 diabetes mellitus without complications

== ENCOUNTER 2017-08-07 20:30 | Emergency (ER) | payer MEDICAID ==
[2017-08-07 20:30] VITALS: BMI 24.3
--- NOTE | 2017-08-07 20:59 | C.PDOC ---
History Of Present Illness 56 y/o male comes in for acute alcohol intoxication and wanting to spend a night. Patient has numerous prior visits for the same complaint. Denies SI, HI, or somatic complaints. Time Seen by Provider: 08/07/17 21:01 Chief Complaint (Nursing): Substance Abuse History Per: Patient History/Exam Limitations: no limitations Onset/Duration Of Symptoms: Hrs Current Symptoms Are (Timing): Still Present Suicide/Self Injury Attempted (Context): None Modifying Factor(s): Alcohol Severity: Mild Associated Symptoms: denies: Suicidal Thoughts, Suicidal Plan Recent travel outside of the [place]: No Additional History Per: Patient Past Medical History Reviewed: Historical Data, Nursing Documentation, Vital Signs Vital Signs: Last Vital Signs Temp 97.2 F L 08/08/17 02:14 Pulse 81 08/08/17 02:14 Resp 16 08/08/17 02:14 BP 131/80 08/08/17 02:14 Pulse Ox 98 08/08/17 02:14 - Medical History PMH: Anxiety, Arthritis, Bronchitis, CAD, Depression, 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 casualty underwriter, not aware), Fractures (Rt. Fa.), Gastritis, Gall Bladder Disease (s/p cholecystectomy), HTN, Post Traumatic Stress Disorder, Rheumatoid Arthritis, Seizures, Chronic Pain Denies: Chronic Kidney Disease Surgical History: Cholecystectomy - [facility] Procedures ALCOHOL DETOXIFICATION (07/04/15) APPLICATION OF SPLINT (03/20/13) CLOSURE SKIN & SUBCUTANEOUS NEC (08/14/13) DETOXIFICATION SERVICES FOR SUBSTANCE ABUSE TREATMENT (03/22/16) ESOPHAGOGASTRODUODENOSCOPY [EGD] W/CLOSED BIOPSY (02/16/15) OTHER GROUP THERAPY (03/12/13) PHYSICAL THERAPY NEC (07/04/15) TETANUS TOXOID ADMINIST (01/19/14) Family History: States: Unknown Family Hx - Social History Hx Tobacco Use: No Hx Alcohol Use: Yes Hx Substance Use: No - Immunization History Hx Tetanus Toxoid Vaccination: Yes Hx Influenza Vaccination: No Hx Pneumococcal Vaccination: No Review Of Systems Except As Marked, All Systems Reviewed And Found Negative. Constitutional: Positive for: Other (Alcohol intoxicated) Psych: Negative for: Suicidal ideation, Other (HI) Physical Exam - Physical Exam Appears: Non-toxic, No Acute Distress, Other (Alcohol intoxication. (+) AOB. No signs of trauma.) Skin: Warm, Dry Head: Atraumatic, Normacephalic Oral Mucosa: Moist Chest: Symmetrical Cardiovascular: Rhythm Regular, No Murmur Respiratory: Normal Breath Sounds, No Rales, No Rhonchi, No Wheezing Gastrointestinal/Abdominal: Soft, No Tenderness Neurological/Psych: Oriented x3, No Normal Speech (Slurred), Other (No focal deficit) Gait: Unsteady ED Course And Treatment O2 Sat by Pulse Oximetry: 96 (RA) Pulse Ox Interpretation: Normal Disposition Counseled Patient/Family Regarding: Diagnosis - Disposition Referrals: [facility] at [facility] [Outside] Disposition: HOME/ ROUTINE Disposition Time: 05:06 Condition: STABLE Instructions: Abuse of Alcohol (ED) Forms: [employer] [facility] (Vietnamese) - POA Present On Arrival: None - Clinical Impression Clinical Impression: Alcohol abuse with intoxication, uncomplicated - Scribe Statement The provider has reviewed the documentation as recorded by the Scribe Rhoda morillo All medical record entries made by the Scribe were at my direction and personally dictated by me. I have reviewed the chart and agree that the record accurately reflects my personal performance of the history, physical exam, medical decision making, and the department course for this patient. I have also personally directed, reviewed, and agree with the discharge instructions and disposition.
[2017-08-08 02:15] VITALS: RESP 16
[2017-08-08 05:20] VITALS: BP 151/91; PULSE 94; TEMP 98.6; O2SAT 97
== END 2017-08-08 05:20 | disposition home or self-care (01) ==
LOC: C.ER 20:30
DX: F10.129 Alcohol abuse with intoxication, unspecified (principal); Y90.9 Presence of alcohol in blood, level not specified

== ENCOUNTER 2017-08-08 19:45 | Emergency (ER) | payer MEDICAID ==
[2017-08-08 19:45] VITALS: BMI 24.3
[2017-08-08 19:57] VITALS: TEMP 98
--- NOTE | 2017-08-08 23:00 | C.PDOC ---
History Of Present Illness 56 year old male presents to the ED with acute alcohol intoxication for an unknown duration. Patient is familiar to the ED and has had multiple prior visits concerning alcohol intoxication. Patient admits to drinking earlier today and denies any physical complaints at this time. Time Seen by Provider: 08/08/17 22:59 Chief Complaint (Nursing): Substance Abuse History Per: Patient History/Exam Limitations: intoxication Onset/Duration Of Symptoms: Hrs Current Symptoms Are (Timing): Still Present Suicide/Self Injury Attempted (Context): None Modifying Factor(s): Alcohol Associated Symptoms: denies: Suicidal Thoughts, Suicidal Plan Involuntary Hold By: None Recent travel outside of the [place]: No Additional History Per: Patient Past Medical History Reviewed: Historical Data, Nursing Documentation, Vital Signs Vital Signs: Last Vital Signs Temp 98 F 08/08/17 19:54 Pulse 80 08/09/17 00:00 Resp 18 08/09/17 00:00 BP 131/80 08/09/17 00:00 Pulse Ox 99 08/09/17 00:00 - Medical History PMH: Anxiety, Arthritis, Bronchitis, CAD, Depression, 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 financial underwriter, not aware), Fractures (Rt. Fa.), Gastritis, Gall Bladder Disease (s/p cholecystectomy), HTN, Post Traumatic Stress Disorder, Rheumatoid Arthritis, Seizures, Chronic Pain Surgical History: Cholecystectomy - [facility] Procedures ALCOHOL DETOXIFICATION (07/04/15) APPLICATION OF SPLINT (03/20/13) CLOSURE SKIN & SUBCUTANEOUS NEC (08/14/13) DETOXIFICATION SERVICES FOR SUBSTANCE ABUSE TREATMENT (03/22/16) ESOPHAGOGASTRODUODENOSCOPY [EGD] W/CLOSED BIOPSY (02/16/15) OTHER GROUP THERAPY (03/12/13) PHYSICAL THERAPY NEC (07/04/15) TETANUS TOXOID ADMINIST (01/19/14) Family History: States: Unknown Family Hx - Social History Hx Tobacco Use: No Hx Alcohol Use: Yes Hx Substance Use: No - Immunization History Hx Tetanus Toxoid Vaccination: Yes Hx Influenza Vaccination: No Hx Pneumococcal Vaccination: No Review Of Systems Psych: Positive for: Other (EtOH intoxication ) Physical Exam - Physical Exam Appears: No Acute Distress, Other (visibly intoxicated ) Skin: Normal Color, Warm, Dry Head: Atraumatic, Normacephalic Eye(s): bilateral: Normal Inspection Oral Mucosa: Moist, Other (alcohol on breath ) Neck: Supple Chest: Symmetrical, No Deformity, No Tenderness Cardiovascular: Rhythm Regular, No Murmur Respiratory: Normal Breath Sounds Extremity: Normal ROM, Capillary Refill (less than 2 seconds ) Neurological/Psych: Other (arousable to touch and verbal stimuli ) Gait: Unsteady ED Course And Treatment O2 Sat by Pulse Oximetry: 98 (on RA) Pulse Ox Interpretation: Normal Reevaluation Time: 05:22 Reassessment Condition: Improved (CLEAR SPEECH AND THOUGHT STEADY GAIT NO S/S ACUTE INTOX) Disposition Counseled Patient/Family Regarding: Diagnosis, Need For Followup - Disposition Disposition: HOME/ ROUTINE Disposition Time: 05:22 Condition: IMPROVED Forms: [facility] (Mozambican), General Discharge Instructions - Clinical Impression Clinical Impression: Alcohol intoxication - Scribe Statement The provider has reviewed the documentation as recorded by the Scribe (Kari Fajardo) Provider Attestation: All medical record entries made by the Scribe were at my direction and personally dictated by me. I have reviewed the chart and agree that the record accurately reflects my personal performance of the history, physical exam, medical decision making, and the department course for this patient. I have also personally directed, reviewed, and agree with the discharge instructions and disposition.
[2017-08-09 05:23] VITALS: O2SAT 98
[2017-08-09 05:24] VITALS: BP 127/69; PULSE 79; RESP 22
== END 2017-08-09 05:28 | disposition home or self-care (01) ==
LOC: C.ER 19:45
DX: F10.129 Alcohol abuse with intoxication, unspecified (principal); E11.9 Type 2 diabetes mellitus without complications; I10 Essential (primary) hypertension; I25.10 Atherosclerotic heart disease of native coronary artery without angina pectoris

== ENCOUNTER 2017-08-09 19:34 | Emergency (ER) | payer MEDICAID ==
[2017-08-09 19:34] VITALS: BMI 24.3
--- NOTE | 2017-08-10 01:55 | C.PDOC ---
History Of Present Illness 56 year old male is a well known visitor to the ED, presents today with ETOH intoxication. Patient is somnolent, unable to speak, currently in deep sleep and is responsive to tactile touch, patient opens his eyes but does not speak. Patient shows no other visible medical problems at the time. Chief Complaint (Nursing): Substance Abuse History Per: Patient History/Exam Limitations: intoxication Onset/Duration Of Symptoms: Hrs Current Symptoms Are (Timing): Still Present Suicide/Self Injury Attempted (Context): None Modifying Factor(s): Alcohol Associated Symptoms: denies: Suicidal Thoughts, Suicidal Plan Involuntary Hold By: None Recent travel outside of the [place]: No Additional History Per: Patient Past Medical History Reviewed: Historical Data, Nursing Documentation, Vital Signs Vital Signs: Last Vital Signs Temp 97.8 F 08/10/17 05:28 Pulse 89 08/10/17 05:28 Resp 16 08/10/17 05:28 BP 152/93 H 08/10/17 05:28 Pulse Ox 100 08/10/17 05:28 - Medical History PMH: Anxiety, Arthritis, Bronchitis, CAD, Depression, 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 chart writer, not aware), Fractures (Rt. Fa.), Gastritis, Gall Bladder Disease (s/p cholecystectomy), HTN, Post Traumatic Stress Disorder, Rheumatoid Arthritis, Seizures, Chronic Pain Denies: Chronic Kidney Disease Surgical History: Cholecystectomy - [facility] Procedures ALCOHOL DETOXIFICATION (07/04/15) APPLICATION OF SPLINT (03/20/13) CLOSURE SKIN & SUBCUTANEOUS NEC (08/14/13) DETOXIFICATION SERVICES FOR SUBSTANCE ABUSE TREATMENT (03/22/16) ESOPHAGOGASTRODUODENOSCOPY [EGD] W/CLOSED BIOPSY (02/16/15) OTHER GROUP THERAPY (03/12/13) PHYSICAL THERAPY NEC (07/04/15) TETANUS TOXOID ADMINIST (01/19/14) Family History: States: Unknown Family Hx - Social History Hx Tobacco Use: No Hx Alcohol Use: Yes Hx Substance Use: No - Immunization History Hx Tetanus Toxoid Vaccination: Yes Hx Influenza Vaccination: No Hx Pneumococcal Vaccination: No Review Of Systems Constitutional: Negative for: Fever, Chills, Sweats Cardiovascular: Negative for: Chest Pain, Palpitations Respiratory: Negative for: Shortness of Breath Gastrointestinal: Negative for: Nausea, Vomiting Neurological: Negative for: Weakness, Numbness Physical Exam - Physical Exam Appears: Non-toxic, No Acute Distress, Other (somnolent) Skin: Normal Color, Warm, Dry Head: Atraumatic, Normacephalic Cardiovascular: Rhythm Regular, No Friction Rub, No Murmur Respiratory: Normal Breath Sounds, No Rales, No Rhonchi, No Wheezing Gastrointestinal/Abdominal: Soft, No Tenderness, No Guarding, No Rebound Neurological/Psych: Eyes Open With Command ED Course And Treatment O2 Sat by Pulse Oximetry: 96 (On RA) Pulse Ox Interpretation: Normal Medical Decision Making Medical Decision Making: Impression : 56 y/o male present with ETOH intoxication ETOH intoxication, patient will be observed thought the night or until he is medically sober. Disposition - Disposition Referrals: Alcoholics Anonymous [Outside] Disposition: HOME/ ROUTINE Disposition Time: 05:09 Condition: FAIR Forms: [employer] (Telugu) - Clinical Impression Clinical Impression: Alcohol abuse - Scribe Statement The provider has reviewed the documentation as recorded by the Scribe Woo Brown All medical record entries made by the Scribe were at my direction and personally dictated by me. I have reviewed the chart and agree that the record accurately reflects my personal performance of the history, physical exam, medical decision making, and the department course for this patient. I have also personally directed, reviewed, and agree with the discharge instructions and disposition.
[2017-08-10 05:29] VITALS: BP 152/93; PULSE 89; RESP 16; TEMP 97.8
[2017-08-10 19:25] VITALS: O2SAT 96
== END 2017-08-10 05:15 | disposition home or self-care (01) ==
LOC: C.ER 19:34
DX: F10.10 Alcohol abuse, uncomplicated (principal); Y90.9 Presence of alcohol in blood, level not specified

== ENCOUNTER 2017-08-11 00:28 | Emergency (ER) | payer MEDICAID ==
[2017-08-11 00:28] VITALS: BMI 24.3
[2017-08-11] MEDS ORDERED: Sodium Chloride 0.9% 1,000 ML IV ONE (00:51)
[2017-08-11 01:14] LABS: BASO % 0.7 % (0.0-2.0); EOS # 0.2 K/uL (0.0-0.7); EOS % 3.1 % (0.0-4.0); HEMATOCRIT 35.2 % (35.0-51.0); LYMPH # 1.1 K/uL (1.0-4.3); LYMPH % 18.6 % (20.0-40.0); MEAN CELL VOLUME 106.5 fL (80.0-94.0); MEAN CORPUSCULAR HEMOGLOBIN 35.8 pg (27.0-31.0); MEAN CORPUSCULAR HGB CONC 33.7 g/dL (33.0-37.0); MEAN PLATELET VOLUME 9.4 fL (7.2-11.7); MONO # 1.1 K/uL (0.0-0.8); MONO % 18.1 % (0.0-10.0); NRBC % 0.3 % (0.0-2.0); RED CELL DISTRIBUTION WIDTH 15.5 % (11.5-14.5); WHITE BLOOD COUNT 6.1 K/uL (4.8-10.8)
--- NOTE | 2017-08-11 01:20 | C.PDOC ---
History Of Present Illness <JasonRyan Sarah - Last Filed: 08/11/17 09:02> <Billie Atkins - Last Filed: 08/12/17 15:19> 56 y/o male presents to the ER with seizures. Patient also presents with acute ETOH intoxication. Patient was found seizing on the sidewalk. Patient denies any nausea or vomiting. (Billie Atkins) <Ryan Gomez - Last Filed: 08/11/17 09:02> History Per: Patient History/Exam Limitations: no limitations Onset/Duration Of Symptoms: Hrs Suicide/Self Injury Attempted (Context): None Modifying Factor(s): Alcohol Associated Symptoms: denies: Suicidal Thoughts, Suicidal Plan Recent travel outside of the [place]: No <Billie Atkins - Last Filed: 08/12/17 15:19> Time Seen by Provider: 08/11/17 00:51 Chief Complaint (Nursing): Seizure Past Medical History Reviewed: Historical Data, Nursing Documentation, Vital Signs - Medical History PMH: Anxiety, Arthritis, Bronchitis, CAD, Depression, 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 story writer, not aware), Fractures (Rt. Fa.), Gastritis, Gall Bladder Disease (s/p cholecystectomy), HTN, Post Traumatic Stress Disorder, Rheumatoid Arthritis, Seizures, Chronic Pain Surgical History: Cholecystectomy Family History: States: Unknown Family Hx - Social History Hx Tobacco Use: No Hx Alcohol Use: Yes Hx Substance Use: No - Immunization History Hx Tetanus Toxoid Vaccination: Yes Hx Influenza Vaccination: No Hx Pneumococcal Vaccination: No <Billie Atkins - Last Filed: 08/12/17 15:19> Vital Signs: Last Vital Signs Temp 98.2 F 08/11/17 09:00 Pulse 84 08/11/17 09:00 Resp 18 08/11/17 09:00 BP 142/93 H 08/11/17 09:00 Pulse Ox 100 08/11/17 09:00 - [facility] Procedures ALCOHOL DETOXIFICATION (07/04/15) APPLICATION OF SPLINT (03/20/13) CLOSURE SKIN & SUBCUTANEOUS NEC (08/14/13) DETOXIFICATION SERVICES FOR SUBSTANCE ABUSE TREATMENT (03/22/16) ESOPHAGOGASTRODUODENOSCOPY [EGD] W/CLOSED BIOPSY (02/16/15) OTHER GROUP THERAPY (03/12/13) PHYSICAL THERAPY NEC (07/04/15) TETANUS TOXOID ADMINIST (01/19/14) Review Of Systems Except As Marked, All Systems Reviewed And Found Negative. Constitutional: Negative for: Fever, Chills Gastrointestinal: Negative for: Nausea, Vomiting Psych: Negative for: Suicidal ideation <Billie Atkins - Last Filed: 08/12/17 15:19> Physical Exam - Physical Exam Appears: Non-toxic, No Acute Distress Skin: Normal Color, Warm, Dry Head: Atraumatic, Normacephalic Eye(s): bilateral: PERRL, Scleral Icterus (muddy sclera) Neck: Supple Chest: Symmetrical Cardiovascular: No JVD, Other (S1,S2 normal limits) Respiratory: Normal Breath Sounds Gastrointestinal/Abdominal: Soft, No Tenderness, No Guarding, No Rebound Neurological/Psych: Oriented x3, Normal Speech, Normal Cognition <Billie Atkins - Last Filed: 08/12/17 15:19> ED Course And Treatment - Laboratory Results Result Diagrams: 08/11/17 01:05 08/11/17 01:05 <Ryan Gomez - Last Filed: 08/11/17 09:02> - Laboratory Results Result Diagrams: 08/11/17 01:05 08/11/17 01:05 O2 Sat by Pulse Oximetry: 96 (room air) Pulse Ox Interpretation: Normal Progress Note: Impressions: alcohol withdrawal with seizures, will begin alcohol withdrawal protocol, inquire into admission <Billie Atkins - Last Filed: 08/12/17 15:19> Medical Decision Making <Ryan Gomez - Last Filed: 08/11/17 09:02> <Billie Atkins - Last Filed: 08/12/17 15:19> Medical Decision Making: Patient signed out to me at change of shift pending sobriety. No further seizures in ED. Head atraumatic. Patient awake at 9am, steady gait, normal behavior as compared to many previous ED visits. Will discharge. (Ryan Gomez) Plans- Blood tests, Urinalysis Meds- Ativan, IV fluid (Billie Atkins) Disposition - Disposition Disposition Time: 09:03 <Ryan Gomez - Last Filed: 08/11/17 09:02> <Billie Atkins - Last Filed: 08/12/17 15:19> - Disposition Disposition: HOME/ ROUTINE Condition: STABLE Instructions: Abuse of Alcohol (ED) Forms: [employer] (Thai) - Clinical Impression Clinical Impression: Seizure, Alcohol intoxication <Ryan Gomez - Last Filed: 08/11/17 09:02> - Scribe Statement The provider has reviewed the documentation as recorded by the Scribe <Billie Atkins - Last Filed: 08/12/17 15:19> - Scribe Statement Donaldo Lopez (Billie Atkins) Provider Attestation: All medical record entries made by the Scribe were at my direction and personally dictated by me. I have reviewed the chart and agree that the record accurately reflects my personal performance of the history, physical exam, medical decision making, and the department course for this patient. I have also personally directed, reviewed, and agree with the discharge instructions and disposition. (Billie Atkins)
[2017-08-11 01:22] LABS: CHLORIDE 99 mmol/L (98-107); SODIUM 142 mmol/L (132-148)
[2017-08-11 01:25] LABS: ALB/GLOB RATIO 0.7 (1.0-2.1); ALKALINE PHOSPHATASE 108 U/L (38-126); AST/SGOT 209 U/L (17-59); BILIRUBIN,TOTAL 1.5 mg/dL (0.2-1.3); BLOOD UREA NITROGEN 11 mg/dL (9-20); CARBON DIOXIDE 24 mmol/L (22-30); GFR AFRICAN-AMERICAN > 60; TOTAL PROTEIN 9.5 g/dL (6.3-8.3)
[2017-08-11 01:26] LABS: ALT/SGPT 39 U/L (21-72); CALCIUM 8.8 mg/dl (8.6-10.4); GLUCOSE,RANDOM 100 mg/dL (75-110)
[2017-08-11] MEDS ORDERED: Potassium Chloride 20 mEq ER Tab PO ONE (08:59)
[2017-08-11 09:10] VITALS: BP 142/93; PULSE 84; RESP 18; TEMP 98.2
[2017-08-11] MEDS ORDERED: Potassium Chloride 20 mEq ER Tab PO SCH (10:00)
[2017-08-12 15:19] VITALS: O2SAT 96
== END 2017-08-11 09:19 | disposition home or self-care (01) ==
LOC: C.ER 00:28
DX: G40.909 Epilepsy, unspecified, not intractable, without status epilepticus (principal); F10.129 Alcohol abuse with intoxication, unspecified; Y90.8 Blood alcohol level of 240 mg/100 ml or more; E87.6 Hypokalemia
CPT/HCPCS: 80053; 80185; 80320; 85025; 96361; 96374; 99285; J2060; J7040

== ENCOUNTER 2017-08-11 19:12 | Emergency (ER) | payer MEDICAID ==
[2017-08-11 19:13] VITALS: BMI 24.3
[2017-08-11 20:01] VITALS: O2SAT 97
--- NOTE | 2017-08-11 20:20 | C.PDOC ---
History Of Present Illness 56 year old male well known to the ED, history of alcohol abuse, BIBA for alcohol intoxication. Patient appears intoxicated, and admits alcohol use. No acute complaints at this time. Time Seen by Provider: 08/11/17 19:14 Chief Complaint (Nursing): Substance Abuse History Per: Patient, EMS History/Exam Limitations: intoxication Modifying Factor(s): Alcohol Severity: Moderate Past Medical History Reviewed: Historical Data, Nursing Documentation, Vital Signs Vital Signs: Last Vital Signs Temp 98 F 08/12/17 05:36 Pulse 88 08/12/17 05:36 Resp 20 08/12/17 05:36 BP 134/88 08/12/17 05:36 Pulse Ox 97 08/12/17 05:36 - Medical History PMH: Anxiety, Arthritis, Bronchitis, CAD, Depression, 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 life insurance underwriter, not aware), Fractures (Rt. Fa.), Gastritis, Gall Bladder Disease (s/p cholecystectomy), HTN, Post Traumatic Stress Disorder, Rheumatoid Arthritis, Seizures, Chronic Pain Denies: Chronic Kidney Disease Surgical History: Cholecystectomy - [facility] Procedures ALCOHOL DETOXIFICATION (07/04/15) APPLICATION OF SPLINT (03/20/13) CLOSURE SKIN & SUBCUTANEOUS NEC (08/14/13) DETOXIFICATION SERVICES FOR SUBSTANCE ABUSE TREATMENT (03/22/16) ESOPHAGOGASTRODUODENOSCOPY [EGD] W/CLOSED BIOPSY (02/16/15) OTHER GROUP THERAPY (03/12/13) PHYSICAL THERAPY NEC (07/04/15) TETANUS TOXOID ADMINIST (01/19/14) Family History: States: No Known Family Hx - Social History Hx Tobacco Use: No Hx Alcohol Use: Yes Hx Substance Use: No - Immunization History Hx Tetanus Toxoid Vaccination: Yes Hx Influenza Vaccination: No Hx Pneumococcal Vaccination: No Review Of Systems Review Of Systems: ROS cannot be obtained secondary to pt's inabilty to answer questions. (Intoxicated) Physical Exam - Physical Exam Appears: Non-toxic, No Acute Distress, Other (Malododorous and appears intoxicated ) Skin: Normal Color, Warm, Dry Head: Atraumatic, Normacephalic Eye(s): bilateral: Normal Inspection, PERRL, EOMI Neck: Normal, Normal ROM, Supple Cardiovascular: Rhythm Regular (Rate Regular ) Respiratory: Normal Breath Sounds, No Rales, No Rhonchi, No Wheezing Gastrointestinal/Abdominal: Normal Exam, Bowel Sounds, Soft, No Tenderness Extremity: Normal ROM, No Pedal Edema, No Calf Tenderness Extremity: Bilateral: Atraumatic, Normal Color And Temperature, Normal ROM Neurological/Psych: Other (awake, alert, intoxicated, moving all 4 extremities spontaneously) ED Course And Treatment O2 Sat by Pulse Oximetry: 97 (RA) Pulse Ox Interpretation: Normal Progress Note: Accucheck ordered and reviewed - WNL. 10:40pm- Patient arousable to verbal stimuli. Pending sobriety. 3:15am- Patient arousable to verbal stimuli. Pending sobriety. 5:35am- Patient AAOx3, ambulating normally in ED. He is clinically sober at this time, will discharge. Reevaluation Time: 05:35 Reassessment Condition: Improved Disposition Counseled Patient/Family Regarding: Diagnosis, Need For Followup - Disposition Referrals: [facility] [Outside] Disposition: HOME/ ROUTINE Disposition Time: 05:35 Condition: STABLE Instructions: Alcohol Intoxication (ED) Forms: [employer] (South Sudanese) Print Language: SAUDI ARABIAN - Clinical Impression Clinical Impression: Alcoholic intoxication - Scribe Statement The provider has reviewed the documentation as recorded by the Rominaibjosé miguel Sanchez Provider Attestation: All medical record entries made by the Rominaibe were at my direction and personally dictated by me. I have reviewed the chart and agree that the record accurately reflects my personal performance of the history, physical exam, medical decision making, and the department course for this patient. I have also personally directed, reviewed, and agree with the discharge instructions and disposition.
[2017-08-12 05:37] VITALS: BP 134/88; PULSE 88; RESP 20; TEMP 98
== END 2017-08-12 05:40 | disposition home or self-care (01) ==
LOC: C.ER 19:12
DX: F10.129 Alcohol abuse with intoxication, unspecified (principal); Y90.9 Presence of alcohol in blood, level not specified

== ENCOUNTER 2017-08-12 18:59 | Emergency (ER) | payer MEDICAID ==
[2017-08-12 18:59] VITALS: BMI 24.3
[2017-08-12 21:06] LABS: BASO # 0.1 K/uL (0.0-0.2); BASO % 1.3 % (0.0-2.0); EOS # 0.2 K/uL (0.0-0.7); EOS % 4.2 % (0.0-4.0); HEMATOCRIT 31.7 % (35.0-51.0); LYMPH # 1.1 K/uL (1.0-4.3); LYMPH % 22.3 % (20.0-40.0); MEAN CELL VOLUME 106.8 fL (80.0-94.0); MEAN CORPUSCULAR HEMOGLOBIN 35.9 pg (27.0-31.0); MEAN CORPUSCULAR HGB CONC 33.6 g/dL (33.0-37.0); MEAN PLATELET VOLUME 8.1 fL (7.2-11.7); MONO # 0.8 K/uL (0.0-0.8); MONO % 17.3 % (0.0-10.0); NRBC % 0.3 % (0.0-2.0); RED CELL DISTRIBUTION WIDTH 15.7 % (11.5-14.5); WHITE BLOOD COUNT 4.8 K/uL (4.8-10.8)
[2017-08-12 21:26] LABS: CHLORIDE 102 mmol/L (98-107); POTASSIUM 3.1 mmol/L (3.6-5.2); SODIUM 140 mmol/L (132-148)
[2017-08-12 21:28] LABS: ALB/GLOB RATIO 0.7 (1.0-2.1); ALKALINE PHOSPHATASE 94 U/L (38-126); ALT/SGPT 35 U/L (21-72); AST/SGOT 176 U/L (17-59); BILIRUBIN,TOTAL 0.9 mg/dL (0.2-1.3); BLOOD UREA NITROGEN 8 mg/dL (9-20); CARBON DIOXIDE 27 mmol/L (22-30); GFR AFRICAN-AMERICAN > 60; GLUCOSE,RANDOM 95 mg/dL (75-110); TOTAL PROTEIN 8.7 g/dL (6.3-8.3)
[2017-08-12 21:29] LABS: CALCIUM 8.8 mg/dl (8.6-10.4); MAGNESIUM 1.6 mg/dL (1.6-2.3)
[2017-08-12] MEDS ORDERED: Potassium Chloride 20 mEq ER Tab PO STA (21:38)
[2017-08-12] MEDS ORDERED: Multivitamin (MVI) 10 ML, Thiamine 100 MG, Folic Acid 1 MG in Sodium Chloride 0.9% 1,00... IV STA (21:39)
[2017-08-12] MEDS ORDERED: Potassium Chloride 20 mEq ER Tab PO ONE (21:49)
[2017-08-12 21:53] LABS: ALCOHOL SERUM 306 mg/dl (0-10)
--- NOTE | 2017-08-12 21:57 | C.PDOC ---
Time Seen by Provider: 08/12/17 19:27 Chief Complaint (Nursing): Substance Abuse History Per: Patient History/Exam Limitations: intoxication Onset/Duration Of Symptoms: Unknown Current Symptoms Are (Timing): Still Present Suicide/Self Injury Attempted (Context): None Modifying Factor(s): Alcohol Severity: Moderate Associated Symptoms: denies: Suicidal Thoughts, Suicidal Plan Additional History Per: Prior Records Past Medical History Reviewed: Historical Data, Nursing Documentation, Vital Signs Vital Signs: Last Vital Signs Temp 98 F 08/12/17 22:15 Pulse 82 08/12/17 22:15 Resp 18 08/12/17 22:15 BP 130/72 08/12/17 22:15 Pulse Ox 98 08/12/17 22:15 - Medical History PMH: Anxiety, Arthritis, Bronchitis, CAD, Depression, 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 aligner typewriter, not aware), Fractures (Rt. Fa.), Gastritis, Gall Bladder Disease (s/p cholecystectomy), HTN, Post Traumatic Stress Disorder, Rheumatoid Arthritis, Seizures, Chronic Pain Other PMH: Alcohol abuse Surgical History: Cholecystectomy - [facility] Procedures ALCOHOL DETOXIFICATION (07/04/15) APPLICATION OF SPLINT (03/20/13) CLOSURE SKIN & SUBCUTANEOUS NEC (08/14/13) DETOXIFICATION SERVICES FOR SUBSTANCE ABUSE TREATMENT (03/22/16) ESOPHAGOGASTRODUODENOSCOPY [EGD] W/CLOSED BIOPSY (02/16/15) OTHER GROUP THERAPY (03/12/13) PHYSICAL THERAPY NEC (07/04/15) TETANUS TOXOID ADMINIST (01/19/14) Family History: States: Unknown Family Hx - Social History Hx Tobacco Use: No Hx Alcohol Use: Yes Hx Substance Use: No - Immunization History Hx Tetanus Toxoid Vaccination: Yes Hx Influenza Vaccination: No Hx Pneumococcal Vaccination: No Review Of Systems Constitutional: Negative for: Fever Cardiovascular: Negative for: Chest Pain Respiratory: Negative for: Shortness of Breath Gastrointestinal: Positive for: Abdominal Pain Genitourinary: Negative for: Dysuria Musculoskeletal: Negative for: Neck Pain Physical Exam - Physical Exam Appears: No Acute Distress, Unkempt, Other (AOB, intoxicated. ) Skin: Warm, Dry Head: Atraumatic Eye(s): bilateral: PERRL Neck: Normal ROM, No Midline Cervical Tenderness, No Step Off Deformity, Supple Chest: Symmetrical, No Deformity Cardiovascular: Rhythm Regular Respiratory: Normal Breath Sounds, No Accessory Muscle Use Gastrointestinal/Abdominal: Soft Extremity: Normal ROM, No Deformity Neurological/Psych: Eyes Open With Command, Slow To Respond With Command, Other (Moving all extremities) Gait: Unable To Assess ED Course And Treatment - Laboratory Results Result Diagrams: 08/12/17 21:03 08/12/17 21:03 O2 Sat by Pulse Oximetry: 97 Pulse Ox Interpretation: Normal Progress Note: Pt is now AAOx3. Steady gait. Clinically sober. Reassessment Condition: Improved Disposition Counseled Patient/Family Regarding: Studies Performed, Diagnosis, Need For Followup - Disposition Disposition: HOME/ ROUTINE Disposition Time: 05:45 Condition: IMPROVED Instructions: Abuse of Alcohol (ED) - Clinical Impression Clinical Impression: Alcohol intoxication
[2017-08-13 06:29] VITALS: BP 147/94; PULSE 72; RESP 20; TEMP 98.7; O2SAT 96
== END 2017-08-13 06:25 | disposition home or self-care (01) ==
LOC: C.ER 18:59
DX: F10.129 Alcohol abuse with intoxication, unspecified (principal); E11.9 Type 2 diabetes mellitus without complications; I10 Essential (primary) hypertension
CPT/HCPCS: 80053; 80320; 82948; 83690; 83735; 85025; 96374; 99285; C9113; J3411; J7040

== ENCOUNTER 2017-08-13 18:46 | Emergency (ER) | payer MEDICAID ==
[2017-08-13 18:46] VITALS: BMI 24.3
[2017-08-13 19:45] VITALS: PULSE 89
--- NOTE | 2017-08-13 21:17 | C.PDOC ---
History Of Present Illness Pt came to the ED due to alcohol intoxication. Time Seen by Provider: 08/13/17 19:20 Chief Complaint (Nursing): Substance Abuse History Per: Patient History/Exam Limitations: intoxication Onset/Duration Of Symptoms: Unknown (today) Current Symptoms Are (Timing): Still Present Suicide/Self Injury Attempted (Context): None Modifying Factor(s): Alcohol Severity: Moderate Associated Symptoms: denies: Suicidal Thoughts, Suicidal Plan Additional History Per: Prior Records Past Medical History Reviewed: Historical Data, Nursing Documentation, Vital Signs Vital Signs: Last Vital Signs Temp 98 F 08/14/17 02:09 Pulse 89 08/14/17 02:09 Resp 18 08/14/17 02:09 BP 123/69 08/14/17 02:09 Pulse Ox 98 08/14/17 02:09 - Medical History PMH: Anxiety, Arthritis, Bronchitis, CAD, Depression, 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 greeting card writer, not aware), Fractures (Rt. Fa.), Gastritis, Gall Bladder Disease (s/p cholecystectomy), HTN, Post Traumatic Stress Disorder, Rheumatoid Arthritis, Seizures, Chronic Pain Other PMH: Alcohol abuse Surgical History: Cholecystectomy - [facility] Procedures ALCOHOL DETOXIFICATION (07/04/15) APPLICATION OF SPLINT (03/20/13) CLOSURE SKIN & SUBCUTANEOUS NEC (08/14/13) DETOXIFICATION SERVICES FOR SUBSTANCE ABUSE TREATMENT (03/22/16) ESOPHAGOGASTRODUODENOSCOPY [EGD] W/CLOSED BIOPSY (02/16/15) OTHER GROUP THERAPY (03/12/13) PHYSICAL THERAPY NEC (07/04/15) TETANUS TOXOID ADMINIST (01/19/14) Family History: States: Unknown Family Hx - Social History Hx Tobacco Use: No Hx Alcohol Use: Yes Hx Substance Use: No - Immunization History Hx Tetanus Toxoid Vaccination: Yes Hx Influenza Vaccination: No Hx Pneumococcal Vaccination: No Review Of Systems Review Of Systems: ROS cannot be obtained secondary to pt's inabilty to answer questions. Physical Exam - Physical Exam Appears: No Acute Distress, Unkempt, Other (AOB, intoxicated) Skin: Normal Color, Warm, Dry Head: Atraumatic, Normacephalic Eye(s): bilateral: PERRL Neck: Normal ROM, No Midline Cervical Tenderness, No Step Off Deformity, Supple Chest: Symmetrical, No Deformity Cardiovascular: Rhythm Regular Respiratory: Normal Breath Sounds, No Accessory Muscle Use Gastrointestinal/Abdominal: Soft, No Tenderness Extremity: Normal ROM, No Deformity Neurological/Psych: Eyes Open With Command, Other (Moving all extremities) Gait: Unable To Assess ED Course And Treatment O2 Sat by Pulse Oximetry: 97 Pulse Ox Interpretation: Normal Progress Note: Pt is now AAOx3. Steady gait. Requesting discharge. Reevaluation Time: 05:00 Reassessment Condition: Improved Disposition Counseled Patient/Family Regarding: Diagnosis, Need For Followup - Disposition Referrals: [facility] [Outside] Disposition: HOME/ ROUTINE Disposition Time: 05:15 Condition: IMPROVED Instructions: Abuse of Alcohol (ED) - Clinical Impression Clinical Impression: Alcohol abuse, daily use
[2017-08-14 02:09] VITALS: TEMP 98
[2017-08-14 05:15] VITALS: O2SAT 97
[2017-08-14 05:16] VITALS: BP 118/69; RESP 16
== END 2017-08-14 05:15 | disposition home or self-care (01) ==
LOC: C.ER 18:46
DX: F10.10 Alcohol abuse, uncomplicated (principal); Y90.9 Presence of alcohol in blood, level not specified

== ENCOUNTER 2017-08-14 19:52 | Emergency (ER) | payer MEDICAID ==
[2017-08-14 19:52] VITALS: BMI 24.3
--- NOTE | 2017-08-14 22:48 | C.PDOC ---
History Of Present Illness Patient is a 56 y/o male who presents to the ED with a complaint of acute EtOH intoxication. Patient is frequent ED visitor with extensive history of similar symptoms. Patient walks with unsteady gait and requests for a place to sleep. Denies fever or chills. No other physical complaints. Chief Complaint (Nursing): Substance Abuse History Per: Patient History/Exam Limitations: no limitations Onset/Duration Of Symptoms: Hrs Current Symptoms Are (Timing): Still Present Modifying Factor(s): Alcohol Recent travel outside of the [place]: No Past Medical History Reviewed: Historical Data, Nursing Documentation, Vital Signs Vital Signs: Last Vital Signs Temp 98.1 F 08/15/17 03:08 Pulse 88 08/15/17 03:08 Resp 18 08/15/17 05:39 BP 138/94 H 08/15/17 03:08 Pulse Ox 98 08/15/17 03:08 - Medical History PMH: Anxiety, Arthritis, Bronchitis, CAD, Depression, 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 procedure writer, not aware), Fractures (Rt. Fa.), Gastritis, Gall Bladder Disease (s/p cholecystectomy), HTN, Post Traumatic Stress Disorder, Rheumatoid Arthritis, Seizures, Chronic Pain Denies: Chronic Kidney Disease Surgical History: Cholecystectomy - [facility] Procedures ALCOHOL DETOXIFICATION (07/04/15) APPLICATION OF SPLINT (03/20/13) CLOSURE SKIN & SUBCUTANEOUS NEC (08/14/13) DETOXIFICATION SERVICES FOR SUBSTANCE ABUSE TREATMENT (03/22/16) ESOPHAGOGASTRODUODENOSCOPY [EGD] W/CLOSED BIOPSY (02/16/15) OTHER GROUP THERAPY (03/12/13) PHYSICAL THERAPY NEC (07/04/15) TETANUS TOXOID ADMINIST (01/19/14) Family History: States: Unknown Family Hx - Social History Hx Tobacco Use: No Hx Alcohol Use: Yes Hx Substance Use: No - Immunization History Hx Tetanus Toxoid Vaccination: Yes Hx Influenza Vaccination: No Hx Pneumococcal Vaccination: No Review Of Systems Constitutional: Negative for: Fever, Chills Cardiovascular: Negative for: Chest Pain Respiratory: Negative for: Shortness of Breath Neurological: Positive for: Incoordination (unsteady gait) Physical Exam - Physical Exam Appears: No Acute Distress, Other (appears drunk) Skin: Normal Color, Warm, Dry Head: Atraumatic, Normacephalic Oral Mucosa: Moist Chest: Symmetrical Cardiovascular: Rhythm Regular, No Murmur Respiratory: Normal Breath Sounds, No Rales, No Rhonchi, No Stridor Gastrointestinal/Abdominal: Soft, No Tenderness Gait: Unsteady ED Course And Treatment O2 Sat by Pulse Oximetry: 96 Disposition - Disposition Referrals: [facility] [Outside] [facility] [Outside] Disposition: HOME/ ROUTINE Disposition Time: 05:00 Condition: IMPROVED Additional Instructions: Thank you for letting us take care of you today. You were treated for alcohol intoxication. The emergency medical care you received today was directed at your acute symptoms. If you were prescribed any medication, please fill it and take as directed. It may take several days for your symptoms to resolve. Return to the Emergency Department if your symptoms worsen, do not improve, or if you have any other problems. Please contact your doctor or call one of the physicians/clinics you have been referred to that are listed on the Patient Visit Information form that is included in your discharge packet. Bring any paperwork you were given at discharge with you along with any medications you are taking to your follow up visit. Our treatment cannot replace ongoing medical care by a primary care provider (PCP) outside of the emergency department. Thank you for allowing the [facility] team to be part of your care today. Follow up in the clinic for outpatient care. Instructions: Alcohol Intoxication (ED) Forms: [employer] (Hungarian) - Clinical Impression Clinical Impression: Alcohol intoxication - Scribe Statement The provider has reviewed the documentation as recorded by the Scribe Yamilet Madrigal All medical record entries made by the Scribe were at my direction and personally dictated by me. I have reviewed the chart and agree that the record accurately reflects my personal performance of the history, physical exam, medical decision making, and the department course for this patient. I have also personally directed, reviewed, and agree with the discharge instructions and disposition.
[2017-08-15 03:10] VITALS: BP 138/94; PULSE 88; TEMP 98.1
[2017-08-15 05:43] VITALS: RESP 18
[2017-08-15 06:02] VITALS: O2SAT 96
== END 2017-08-15 05:38 | disposition home or self-care (01) ==
LOC: C.ER 19:52
DX: F10.129 Alcohol abuse with intoxication, unspecified (principal); Y90.9 Presence of alcohol in blood, level not specified

== ENCOUNTER 2017-08-15 20:00 | Emergency (ER) | payer MEDICAID ==
[2017-08-15 20:00] VITALS: BMI 24.3
[2017-08-15 20:31] VITALS: BP 132/84; PULSE 79; RESP 20; TEMP 97.7; O2SAT 96
--- NOTE | 2017-08-16 00:20 | C.PDOC ---
History Of Present Illness 56 y/o male presents to ED with an unsteady gait and ETOH odor. Patient is well known at ED for ETOH intoxication. Patient states he wants to sleep at ED and has no physical complaints at this time. Chief Complaint (Nursing): Substance Abuse History Per: Patient History/Exam Limitations: no limitations Onset/Duration Of Symptoms: Days Current Symptoms Are (Timing): Still Present Suicide/Self Injury Attempted (Context): None Modifying Factor(s): Alcohol Past Medical History Reviewed: Historical Data, Nursing Documentation, Vital Signs Vital Signs: Last Vital Signs Temp 97.7 F 08/15/17 20:26 Pulse 79 08/15/17 20:26 Resp 20 08/15/17 20:26 BP 132/84 08/15/17 20: Pulse Ox 96 08/16/17 00:21 - Medical History PMH: Anxiety, Arthritis, Bronchitis, CAD, Depression, 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 letterer or painter, not aware), Fractures (Rt. Fa.), Gastritis, Gall Bladder Disease (s/p cholecystectomy), HTN, Post Traumatic Stress Disorder, Rheumatoid Arthritis, Seizures, Chronic Pain Surgical History: Cholecystectomy - [facility] Procedures ALCOHOL DETOXIFICATION (07/04/15) APPLICATION OF SPLINT (03/20/13) CLOSURE SKIN & SUBCUTANEOUS NEC (08/14/13) DETOXIFICATION SERVICES FOR SUBSTANCE ABUSE TREATMENT (03/22/16) ESOPHAGOGASTRODUODENOSCOPY [EGD] W/CLOSED BIOPSY (02/16/15) OTHER GROUP THERAPY (03/12/13) PHYSICAL THERAPY NEC (07/04/15) TETANUS TOXOID ADMINIST (01/19/14) Family History: States: No Known Family Hx - Social History Hx Tobacco Use: No Hx Alcohol Use: Yes Hx Substance Use: No - Immunization History Hx Tetanus Toxoid Vaccination: Yes Hx Influenza Vaccination: No Hx Pneumococcal Vaccination: No Review Of Systems Constitutional: Negative for: Fever, Chills Cardiovascular: Negative for: Chest Pain Respiratory: Negative for: Shortness of Breath Gastrointestinal: Negative for: Nausea, Vomiting Skin: Negative for: Rash Physical Exam - Physical Exam Appears: Well, Non-toxic, Other (ETOH on breath) Skin: Warm, Dry, No Rash Head: Atraumatic, Normacephalic Eye(s): bilateral: Normal Inspection Oral Mucosa: Moist Neck: Normal ROM, Supple Chest: Symmetrical Cardiovascular: Rhythm Regular Respiratory: Normal Breath Sounds, No Rales, No Rhonchi, No Wheezing Gastrointestinal/Abdominal: Soft, No Tenderness, No Guarding, No Rebound Neurological/Psych: Oriented x3, Normal Speech, Normal Motor, Normal Sensation ED Course And Treatment O2 Sat by Pulse Oximetry: 96 (RA) Pulse Ox Interpretation: Normal Disposition - Disposition Referrals: [facility] [Outside] [facility] [Outside] Disposition: HOME/ ROUTINE Disposition Time: 05:30 Condition: IMPROVED Additional Instructions: Thank you for letting us take care of you today. The emergency medical care you received today was directed at your acute symptoms. If you were prescribed any medication, please fill it and take as directed. It may take several days for your symptoms to resolve. Return to the Emergency Department if your symptoms worsen, do not improve, or if you have any other problems. Please contact your doctor or call one of the physicians/clinics you have been referred to that are listed on the Patient Visit Information form that is included in your discharge packet. Bring any paperwork you were given at discharge with you along with any medications you are taking to your follow up visit. Our treatment cannot replace ongoing medical care by a primary care provider (PCP) outside of the emergency department. Thank you for allowing the [facility] team to be part of your care today. Follow up in the clinic for outpatient care. Instructions: Alcohol Intoxication (ED) Forms: [facility] (Serbian) - Clinical Impression Clinical Impression: Alcohol intoxication - Scribe Statement The provider has reviewed the documentation as recorded by the Rominaibjosé miguel Contreras All medical record entries made by the Scribe were at my direction and personally dictated by me. I have reviewed the chart and agree that the record accurately reflects my personal performance of the history, physical exam, medical decision making, and the department course for this patient. I have also personally directed, reviewed, and agree with the discharge instructions and disposition.
== END 2017-08-16 05:39 | disposition home or self-care (01) ==
LOC: C.ER 20:00
DX: F10.129 Alcohol abuse with intoxication, unspecified (principal); E11.9 Type 2 diabetes mellitus without complications; I10 Essential (primary) hypertension; I25.10 Atherosclerotic heart disease of native coronary artery without angina pectoris

== ENCOUNTER 2017-08-17 02:09 | Emergency (ER) | payer MEDICAID ==
[2017-08-17 02:10] VITALS: BMI 24.3
--- NOTE | 2017-08-17 05:23 | C.PDOC ---
History Of Present Illness 56 year old male brought in by EMS for public intoxication. Denies physical complaints at this time. Time Seen by Provider: 08/17/17 02:16 Chief Complaint (Nursing): Substance Abuse History Per: Patient History/Exam Limitations: no limitations Onset/Duration Of Symptoms: Hrs Current Symptoms Are (Timing): Still Present Suicide/Self Injury Attempted (Context): None Modifying Factor(s): Alcohol Associated Symptoms: denies: Depression, Suicidal Thoughts, Suicidal Plan Involuntary Hold By: None Recent travel outside of the [place]: No Past Medical History Reviewed: Historical Data, Nursing Documentation, Vital Signs Vital Signs: Last Vital Signs Temp 97.8 F 08/17/17 02:24 Pulse 83 08/17/17 02:24 Resp 20 08/17/17 02:24 BP 135/84 08/17/17 02:24 Pulse Ox 95 08/17/17 05:22 - Medical History PMH: Anxiety, Arthritis, Bronchitis, CAD, Depression, 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 aware), Fractures (Rt. Fa.), Gastritis, Gall Bladder Disease (s/p cholecystectomy), HTN, Post Traumatic Stress Disorder, Rheumatoid Arthritis, Seizures, Chronic Pain Surgical History: Cholecystectomy - [facility] Procedures ALCOHOL DETOXIFICATION (07/04/15) APPLICATION OF SPLINT (03/20/13) CLOSURE SKIN & SUBCUTANEOUS NEC (08/14/13) DETOXIFICATION SERVICES FOR SUBSTANCE ABUSE TREATMENT (03/22/16) ESOPHAGOGASTRODUODENOSCOPY [EGD] W/CLOSED BIOPSY (02/16/15) OTHER GROUP THERAPY (03/12/13) PHYSICAL THERAPY NEC (07/04/15) TETANUS TOXOID ADMINIST (01/19/14) Family History: States: Unknown Family Hx - Social History Hx Tobacco Use: No Hx Alcohol Use: Yes Hx Substance Use: No - Immunization History Hx Tetanus Toxoid Vaccination: Yes Hx Influenza Vaccination: No Hx Pneumococcal Vaccination: No Review Of Systems Constitutional: Negative for: Fever, Chills Gastrointestinal: Negative for: Nausea, Vomiting, Diarrhea Physical Exam - Physical Exam Appears: Non-toxic, No Acute Distress, Other (ETOH on breath, clean shaven) Skin: Normal Color, Warm, Dry Head: Atraumatic, Normacephalic Eye(s): bilateral: Normal Inspection Oral Mucosa: Moist Chest: Symmetrical, No Tenderness Cardiovascular: Rhythm Regular Respiratory: Normal Breath Sounds, No Accessory Muscle Use Gastrointestinal/Abdominal: Soft, No Tenderness Extremity: Normal ROM (x4) Neurological/Psych: Oriented x3, Normal Speech, Normal Cognition ED Course And Treatment O2 Sat by Pulse Oximetry: 95 Reevaluation Time: 05:22 Reassessment Condition: Improved (stable gait) Disposition Doctor Will See Patient In The: Office Counseled Patient/Family Regarding: Studies Performed, Diagnosis - Disposition Referrals: [facility] [Outside] [facility] [Outside] [facility] [Outside] Disposition: HOME/ ROUTINE Disposition Time: 05:22 Condition: GOOD Additional Instructions: seek nightly [facility] placement and alcohol detox services Instructions: Abuse of Alcohol (ED) Forms: [facility] (Occitan) - Clinical Impression Clinical Impression: Alcoholic intoxication - Scribe Statement The provider has reviewed the documentation as recorded by the Scribjosé miguel Ramirez All medical record entries made by the Scribe were at my direction and personally dictated by me. I have reviewed the chart and agree that the record accurately reflects my personal performance of the history, physical exam, medical decision making, and the department course for this patient. I have also personally directed, reviewed, and agree with the discharge instructions and disposition.
[2017-08-17 05:40] VITALS: BP 154/84; PULSE 96; RESP 18; TEMP 97.7; O2SAT 94
== END 2017-08-17 06:15 | disposition home or self-care (01) ==
LOC: C.ER 02:09
DX: F10.129 Alcohol abuse with intoxication, unspecified (principal)

== ENCOUNTER 2017-08-17 19:18 | Emergency (ER) | payer MEDICAID ==
[2017-08-17 19:18] VITALS: BMI 24.3
[2017-08-17 20:21] VITALS: PULSE 78; RESP 16; TEMP 97.6; O2SAT 97
--- NOTE | 2017-08-17 20:31 | C.PDOC ---
History Of Present Illness 56 y/o male presents of the ED with EtOH abuse. The patient denies fever, dizziness, headaches, vomiting, and diarrhea. Time Seen by Provider: 08/17/17 20:22 Chief Complaint (Nursing): Substance Abuse Past Medical History Vital Signs: Last Vital Signs Temp 97.6 F 08/17/17 20:19 Pulse 78 08/17/17 20:19 Resp 16 08/18/17 05:56 BP 119/66 08/18/17 05:56 Pulse Ox 97 08/18/17 05:56 - Medical History PMH: Anxiety, Arthritis, Bronchitis, CAD, Depression, 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 underwriter, not aware), Fractures (Rt. Fa.), Gastritis, Gall Bladder Disease (s/p cholecystectomy), HTN, Post Traumatic Stress Disorder, Rheumatoid Arthritis, Seizures, Chronic Pain Denies: Chronic Kidney Disease Surgical History: Cholecystectomy - [facility] Procedures ALCOHOL DETOXIFICATION (07/04/15) APPLICATION OF SPLINT (03/20/13) CLOSURE SKIN & SUBCUTANEOUS NEC (08/14/13) DETOXIFICATION SERVICES FOR SUBSTANCE ABUSE TREATMENT (03/22/16) ESOPHAGOGASTRODUODENOSCOPY [EGD] W/CLOSED BIOPSY (02/16/15) OTHER GROUP THERAPY (03/12/13) PHYSICAL THERAPY NEC (07/04/15) TETANUS TOXOID ADMINIST (01/19/14) Family History: States: Unknown Family Hx - Social History Hx Tobacco Use: No Hx Alcohol Use: Yes Hx Substance Use: No - Immunization History Hx Tetanus Toxoid Vaccination: Yes Hx Influenza Vaccination: No Hx Pneumococcal Vaccination: No Review Of Systems Except As Marked, All Systems Reviewed And Found Negative. Constitutional: Negative for: Fever, Chills Respiratory: Negative for: Cough, Shortness of Breath Gastrointestinal: Negative for: Nausea, Vomiting, Diarrhea Physical Exam - Physical Exam Appears: Non-toxic, Other (intoxicated ) Skin: Warm, Dry, No Diaphoretic Head: Atraumatic, Normacephalic Oral Mucosa: Moist Neck: Supple Chest: Symmetrical Cardiovascular: Rhythm Regular Respiratory: Normal Breath Sounds, No Rales, No Rhonchi, No Wheezing Gastrointestinal/Abdominal: Soft, No Tenderness, No Guarding, No Rebound Extremity: Normal ROM, Capillary Refill (<2sec.) Neurological/Psych: Other (under the influence) ED Course And Treatment O2 Sat by Pulse Oximetry: 97 (RA) Medical Decision Making Medical Decision Making: Plan: The patient is being monitored for any further changes. Patient slept in ED. Now awake, alert, steady gait. Walked out. Disposition - Disposition Disposition: HOME/ ROUTINE Disposition Time: 05:30 Condition: GOOD Forms: [facility] (Bermudian) - Clinical Impression Clinical Impression: Alcohol intoxication - Scribe Statement The provider has reviewed the documentation as recorded by the Scribjosé miguel Worthington All medical record entries made by the Rominaibjosé miguel were at my direction and personally dictated by me. I have reviewed the chart and agree that the record accurately reflects my personal performance of the history, physical exam, medical decision making, and the department course for this patient. I have also personally directed, reviewed, and agree with the discharge instructions and disposition.
[2017-08-18 05:58] VITALS: BP 119/66
== END 2017-08-18 05:56 | disposition home or self-care (01) ==
LOC: C.ER 19:18
DX: F10.129 Alcohol abuse with intoxication, unspecified (principal); E11.9 Type 2 diabetes mellitus without complications; I10 Essential (primary) hypertension; I25.10 Atherosclerotic heart disease of native coronary artery without angina pectoris

== ENCOUNTER 2017-08-19 18:52 | Emergency (ER) | payer MEDICAID ==
[2017-08-19 18:52] VITALS: BMI 24.3
--- NOTE | 2017-08-19 23:13 | C.PDOC ---
History Of Present Illness 56 y/o male with a hx of alcohol abuse, comes in complaining of dizziness today. Patient admits drinking today. Denies HI, SI, or somatic complaints. Time Seen by Provider: 08/19/17 22:21 Chief Complaint (Nursing): Dizziness/Lightheaded History Per: Patient History/Exam Limitations: no limitations Onset/Duration Of Symptoms: Hrs Current Symptoms Are (Timing): Still Present Severity: Mild Recent travel outside of the [place]: No Additional History Per: Patient Past Medical History Reviewed: Historical Data, Nursing Documentation, Vital Signs Vital Signs: Last Vital Signs Temp 97.5 F L 08/20/17 00:19 Pulse 89 08/20/17 03:06 Resp 18 08/20/17 03:06 BP 143/84 08/20/17 03:06 Pulse Ox 98 08/20/17 03:07 - Medical History PMH: Anxiety, Arthritis, Bronchitis, CAD, Depression, 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 senior technical writer, not aware), Fractures (Rt. Fa.), Gastritis, Gall Bladder Disease (s/p cholecystectomy), HTN, Post Traumatic Stress Disorder, Rheumatoid Arthritis, Seizures, Chronic Pain Denies: Chronic Kidney Disease Surgical History: Cholecystectomy - [facility] Procedures ALCOHOL DETOXIFICATION (07/04/15) APPLICATION OF SPLINT (03/20/13) CLOSURE SKIN & SUBCUTANEOUS NEC (08/14/13) DETOXIFICATION SERVICES FOR SUBSTANCE ABUSE TREATMENT (03/22/16) ESOPHAGOGASTRODUODENOSCOPY [EGD] W/CLOSED BIOPSY (02/16/15) OTHER GROUP THERAPY (03/12/13) PHYSICAL THERAPY NEC (07/04/15) TETANUS TOXOID ADMINIST (01/19/14) Family History: States: Unknown Family Hx - Social History Hx Tobacco Use: No Hx Alcohol Use: Yes Hx Substance Use: No - Immunization History Hx Tetanus Toxoid Vaccination: Yes Hx Influenza Vaccination: No Hx Pneumococcal Vaccination: No Review Of Systems Except As Marked, All Systems Reviewed And Found Negative. Constitutional: Positive for: Other (Alcohol use. No signs of injury) Neurological: Positive for: Dizziness Psych: Negative for: Suicidal ideation, Other (HI) Physical Exam - Physical Exam Appears: Non-toxic Skin: Warm, Dry Head: Atraumatic, Normacephalic Chest: Symmetrical Cardiovascular: Rhythm Regular, No Murmur Respiratory: Normal Breath Sounds, No Rales, No Rhonchi, No Wheezing Gastrointestinal/Abdominal: Soft, No Tenderness Neurological/Psych: Oriented x3 ED Course And Treatment O2 Sat by Pulse Oximetry: 98 (RA) Pulse Ox Interpretation: Normal Disposition - Disposition Disposition Time: 03:14 Condition: STABLE Forms: [facility] (Macanese) - Clinical Impression Clinical Impression: Alcohol intoxication - Scribe Statement The provider has reviewed the documentation as recorded by the Scribe Rhoda morillo All medical record entries made by the Scribe were at my direction and personally dictated by me. I have reviewed the chart and agree that the record accurately reflects my personal performance of the history, physical exam, medical decision making, and the department course for this patient. I have also personally directed, reviewed, and agree with the discharge instructions and disposition. Physician Patient Turnover Patient Signed Over To: Victoriano Pierson Handoff Comments: sobriety
[2017-08-20 00:19] VITALS: RESP 18; TEMP 97.5
[2017-08-20 03:07] VITALS: BP 143/84; PULSE 89; O2SAT 98
== END 2017-08-20 05:02 | disposition home or self-care (01) ==
LOC: C.ER 18:52
DX: F10.129 Alcohol abuse with intoxication, unspecified (principal); Y90.9 Presence of alcohol in blood, level not specified

== ENCOUNTER 2017-08-20 20:30 | Emergency (ER) | payer MEDICAID ==
[2017-08-20 20:31] VITALS: BMI 24.3
--- NOTE | 2017-08-20 21:39 | C.PDOC ---
History Of Present Illness 56 year old male presents to the ER with acute ETOH intoxication. He denies physical complaints at this time. Time Seen by Provider: 08/20/17 20:34 Chief Complaint (Nursing): Substance Abuse History Per: Patient History/Exam Limitations: intoxication Onset/Duration Of Symptoms: Persistent Current Symptoms Are (Timing): Still Present Suicide/Self Injury Attempted (Context): None Modifying Factor(s): Alcohol Severity: Moderate Associated Symptoms: denies: Depression, Suicidal Thoughts, Suicidal Plan Involuntary Hold By: Emergency Physician Past Medical History Reviewed: Historical Data, Nursing Documentation, Vital Signs Vital Signs: Last Vital Signs Temp 98 F 08/21/17 05:34 Pulse 90 08/21/17 05:34 Resp 20 08/21/17 05:34 BP 148/70 08/21/17 05:34 Pulse Ox 98 08/21/17 05:34 - Medical History PMH: Anxiety, Arthritis, Bronchitis, CAD, Depression, 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 Fa.), Gastritis, Gall Bladder Disease (s/p cholecystectomy), HTN, Post Traumatic Stress Disorder, Rheumatoid Arthritis, Seizures, Chronic Pain Surgical History: Cholecystectomy - [facility] Procedures ALCOHOL DETOXIFICATION (07/04/15) APPLICATION OF SPLINT (03/20/13) CLOSURE SKIN & SUBCUTANEOUS NEC (08/14/13) DETOXIFICATION SERVICES FOR SUBSTANCE ABUSE TREATMENT (03/22/16) ESOPHAGOGASTRODUODENOSCOPY [EGD] W/CLOSED BIOPSY (02/16/15) OTHER GROUP THERAPY (03/12/13) PHYSICAL THERAPY NEC (07/04/15) TETANUS TOXOID ADMINIST (01/19/14) Family History: States: No Known Family Hx - Social History Hx Tobacco Use: No Hx Alcohol Use: Yes Hx Substance Use: No - Immunization History Hx Tetanus Toxoid Vaccination: Yes Hx Influenza Vaccination: No Hx Pneumococcal Vaccination: No Review Of Systems Except As Marked, All Systems Reviewed And Found Negative. Constitutional: Negative for: Fever Cardiovascular: Negative for: Chest Pain Respiratory: Negative for: Shortness of Breath Gastrointestinal: Negative for: Nausea, Vomiting, Abdominal Pain Psych: Positive for: Other (alcohol intoxication). Negative for: Depression, Suicidal ideation Physical Exam - Physical Exam Appears: Well, Non-toxic, No Acute Distress, Other (ETOH on breath) Skin: Normal Color, Warm, Dry Head: Atraumatic, Normacephalic Eye(s): bilateral: Normal Inspection Oral Mucosa: Moist Neck: Normal, No Midline Cervical Tenderness, No Paracervical Tenderness, No Step Off Deformity, Supple Cardiovascular: Rhythm Regular Respiratory: Normal Breath Sounds, No Rales, No Rhonchi, No Wheezing Gastrointestinal/Abdominal: Normal Exam, Bowel Sounds, Soft, No Tenderness Extremity: Normal ROM Extremity: Bilateral: Atraumatic, Normal Color And Temperature, Normal ROM Neurological/Psych: Other (awake, alert, intoxicated, moving all 4 extremities spontaneously) ED Course And Treatment O2 Sat by Pulse Oximetry: 99 (Room air) Pulse Ox Interpretation: Normal Progress Note: Accucheck ordered and reviewed. Patient pending sobriety. 23:30 - Patient sleeping, arousable to verbal stimuli. In no distress. 2:45- Patient arousable to verbal stimuli, still mildly intoxicated. Pending sobriety. Reevaluation Time: 05:30 Reassessment Condition: Improved (Patient is AAOx3, ambulating normally in ED, and clinically sober at this time. Will discharge.) Disposition Counseled Patient/Family Regarding: Diagnosis, Need For Followup - Disposition Referrals: [facility] [Outside] Disposition: HOME/ ROUTINE Disposition Time: 05:30 Condition: STABLE Instructions: Alcohol Intoxication (ED) Forms: [facility] (Kazakh) Print Language: YORUBA - POA Present On Arrival: None - Clinical Impression Clinical Impression: Alcohol intoxication - Scribe Statement The provider has reviewed the documentation as recorded by the Scribe Fabián Ramirez All medical record entries made by the Scribe were at my direction and personally dictated by me. I have reviewed the chart and agree that the record accurately reflects my personal performance of the history, physical exam, medical decision making, and the department course for this patient. I have also personally directed, reviewed, and agree with the discharge instructions and disposition.
[2017-08-21 02:24] VITALS: RESP 20
[2017-08-21 05:36] VITALS: BP 148/70; PULSE 90; TEMP 98
[2017-08-21 19:51] VITALS: O2SAT 99
== END 2017-08-21 05:35 | disposition home or self-care (01) ==
LOC: C.ER 20:30
DX: F10.129 Alcohol abuse with intoxication, unspecified (principal); E11.9 Type 2 diabetes mellitus without complications; I10 Essential (primary) hypertension; I25.10 Atherosclerotic heart disease of native coronary artery without angina pectoris

== ENCOUNTER 2017-08-22 19:02 | Emergency (ER) | payer MEDICAID ==
[2017-08-22 19:03] VITALS: BMI 24.3
--- NOTE | 2017-08-22 19:34 | C.PDOC ---
History Of Present Illness 56 y/o male presents to ED with alcohol intoxication. Pt is well known to ED staff for multiple prior visits for similar reason. Denies any active physical complaints at this time. Time Seen by Provider: 08/22/17 19:33 Chief Complaint (Nursing): Medical Clearance History Per: Patient History/Exam Limitations: no limitations Onset/Duration Of Symptoms: Gradual Current Symptoms Are (Timing): Still Present Severity: None Pain Scale Rating Of: 0 Reports Recently: Seen In ED, Treated By A Physician Recent travel outside of the [place]: No Additional History Per: Prior Records Past Medical History Reviewed: Historical Data, Nursing Documentation, Vital Signs Vital Signs: Last Vital Signs Temp 97.2 F L 08/23/17 04:51 Pulse 79 08/23/17 04:51 Resp 20 08/23/17 04:51 BP 123/74 08/23/17 04:51 Pulse Ox 96 08/23/17 04:51 - Medical History PMH: Anxiety, Arthritis, Bronchitis, CAD, Depression, 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 life underwriter, not aware), Fractures (Rt. Fa.), Gastritis, Gall Bladder Disease (s/p cholecystectomy), HTN, Post Traumatic Stress Disorder, Rheumatoid Arthritis, Seizures, Chronic Pain Denies: Chronic Kidney Disease Surgical History: Cholecystectomy - [facility] Procedures ALCOHOL DETOXIFICATION (07/04/15) APPLICATION OF SPLINT (03/20/13) CLOSURE SKIN & SUBCUTANEOUS NEC (08/14/13) DETOXIFICATION SERVICES FOR SUBSTANCE ABUSE TREATMENT (03/22/16) ESOPHAGOGASTRODUODENOSCOPY [EGD] W/CLOSED BIOPSY (02/16/15) OTHER GROUP THERAPY (03/12/13) PHYSICAL THERAPY NEC (07/04/15) TETANUS TOXOID ADMINIST (01/19/14) Family History: States: No Known Family Hx - Social History Hx Tobacco Use: No Hx Alcohol Use: Yes Hx Substance Use: No - Immunization History Hx Tetanus Toxoid Vaccination: Yes Hx Influenza Vaccination: No Hx Pneumococcal Vaccination: No Review Of Systems Constitutional: Negative for: Fever, Chills Cardiovascular: Negative for: Chest Pain, Palpitations Respiratory: Negative for: Cough, Shortness of Breath Gastrointestinal: Negative for: Nausea, Vomiting, Abdominal Pain, Diarrhea Genitourinary: Negative for: Dysuria, Frequency, Hematuria Neurological: Negative for: Headache, Dizziness Psych: Negative for: Suicidal ideation Physical Exam - Physical Exam Appears: Non-toxic, No Acute Distress Skin: Warm, Dry Head: Normacephalic Oral Mucosa: Moist Neck: Supple Chest: Symmetrical Cardiovascular: Rhythm Regular, No Murmur Respiratory: No Accessory Muscle Use, No Rales, No Rhonchi, No Wheezing Extremity: Normal ROM, No Deformity Neurological/Psych: Oriented x3 ED Course And Treatment O2 Sat by Pulse Oximetry: 96 (RA) Pulse Ox Interpretation: Normal Progress Note: On re-eval, pt is resting comfortably, no acute distress. Disposition Counseled Patient/Family Regarding: Studies Performed, Diagnosis, Need For Followup - Disposition Referrals: [facility] [Outside] Disposition: HOME/ ROUTINE Disposition Time: 19:33 Condition: FAIR Instructions: Alcohol Intoxication (DC) Forms: [facility] (Barbadian) - Clinical Impression Clinical Impression: Alcohol intoxication - Scribe Statement The provider has reviewed the documentation as recorded by the Scribe Channing Fajardo All medical record entries made by the Scribe were at my direction and personally dictated by me. I have reviewed the chart and agree that the record accurately reflects my personal performance of the history, physical exam, medical decision making, and the department course for this patient. I have also personally directed, reviewed, and agree with the discharge instructions and disposition.
[2017-08-23 02:43] VITALS: RESP 20; O2SAT 96
[2017-08-23 04:52] VITALS: BP 123/74; PULSE 79; TEMP 97.2
== END 2017-08-23 05:15 | disposition home or self-care (01) ==
LOC: C.ER 19:02
DX: F10.129 Alcohol abuse with intoxication, unspecified (principal); E11.9 Type 2 diabetes mellitus without complications; I10 Essential (primary) hypertension

== ENCOUNTER 2017-08-29 21:00 | Emergency (ER) | payer MEDICAID ==
[2017-08-29 21:04] VITALS: BMI 24.3
--- NOTE | 2017-08-29 22:11 | C.PDOC ---
History Of Present Illness Patient is a 56 y/o male who presents to the ED with a complaint of EtOH intoxication. Patient has extremely extensive history of ED visits for the same complaint. Denies fever or chills. No other physical complaints at this time. Time Seen by Provider: 08/29/17 21:28 Chief Complaint (Nursing): Substance Abuse History Per: Patient History/Exam Limitations: no limitations Onset/Duration Of Symptoms: Hrs Current Symptoms Are (Timing): Still Present Modifying Factor(s): Alcohol Recent travel outside of the [place]: No Past Medical History Reviewed: Historical Data, Nursing Documentation, Vital Signs Vital Signs: Last Vital Signs Temp 97.9 F 08/30/17 05:23 Pulse 83 08/30/17 05:23 Resp 20 08/30/17 05:23 BP 136/84 08/30/17 05:23 Pulse Ox 98 08/30/17 05:23 - Medical History PMH: Anxiety, Arthritis, Bronchitis, CAD, Depression, 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 play writer, not aware), Fractures (Rt. Fa.), Gastritis, Gall Bladder Disease (s/p cholecystectomy), HTN, Post Traumatic Stress Disorder, Rheumatoid Arthritis, Seizures, Chronic Pain Denies: Chronic Kidney Disease Surgical History: Cholecystectomy - [facility] Procedures ALCOHOL DETOXIFICATION (07/04/15) APPLICATION OF SPLINT (03/20/13) CLOSURE SKIN & SUBCUTANEOUS NEC (08/14/13) DETOXIFICATION SERVICES FOR SUBSTANCE ABUSE TREATMENT (03/22/16) ESOPHAGOGASTRODUODENOSCOPY [EGD] W/CLOSED BIOPSY (02/16/15) OTHER GROUP THERAPY (03/12/13) PHYSICAL THERAPY NEC (07/04/15) TETANUS TOXOID ADMINIST (01/19/14) Family History: States: Unknown Family Hx - Social History Hx Tobacco Use: No Hx Alcohol Use: Yes Hx Substance Use: No - Immunization History Hx Tetanus Toxoid Vaccination: No Hx Influenza Vaccination: No Hx Pneumococcal Vaccination: No Review Of Systems Constitutional: Negative for: Fever, Chills Physical Exam - Physical Exam Appears: Well, Non-toxic, Other (EtOH on breath) Skin: Normal Color, Warm, Dry Head: Atraumatic, Normacephalic Oral Mucosa: Moist Chest: Symmetrical Cardiovascular: Rhythm Regular, No Murmur Respiratory: Normal Breath Sounds, No Rales, No Rhonchi, No Wheezing Gait: Unsteady ED Course And Treatment O2 Sat by Pulse Oximetry: 96 Disposition - Disposition Referrals: Alcoholics Anonymous [Outside] Disposition: HOME/ ROUTINE Disposition Time: 06:17 Condition: FAIR Instructions: Alcohol Intoxication (ED), At-Risk Alcohol Use (ED) Forms: [employer] (Hungarian) Print Language: PRYDEINIG - Clinical Impression Clinical Impression: Alcohol intoxication - Scribe Statement The provider has reviewed the documentation as recorded by the Scribe Yamilet Madrigal All medical record entries made by the Scribe were at my direction and personally dictated by me. I have reviewed the chart and agree that the record accurately reflects my personal performance of the history, physical exam, medical decision making, and the department course for this patient. I have also personally directed, reviewed, and agree with the discharge instructions and disposition.
[2017-08-30 05:31] VITALS: BP 136/84; PULSE 83; RESP 20; TEMP 97.9
[2017-08-30 06:17] VITALS: O2SAT 96
== END 2017-08-30 05:32 | disposition home or self-care (01) ==
LOC: C.ER 21:00
DX: F10.129 Alcohol abuse with intoxication, unspecified (principal); Y90.9 Presence of alcohol in blood, level not specified

== ENCOUNTER 2017-08-31 13:51 | Emergency (ER) | payer MEDICAID ==
[2017-08-31 13:51] VITALS: BMI 24.3
[2017-08-31 14:11] VITALS: BP 133/89; PULSE 73; RESP 18; TEMP 97.4; O2SAT 98
--- NOTE | 2017-08-31 14:17 | C.PDOC ---
History Of Present Illness 56 year old male presents to the ED for evaluation of public alcohol intoxication for an unknown duration. Patient is familiar to this ED and has had many prior visits concerning alcohol intoxication. Patient admits to drinking earlier today and has no physical complaints at this time. Time Seen by Provider: 08/31/17 14:12 Chief Complaint (Nursing): Substance Abuse History Per: Patient History/Exam Limitations: intoxication Onset/Duration Of Symptoms: Unknown Current Symptoms Are (Timing): Still Present Suicide/Self Injury Attempted (Context): None Modifying Factor(s): Alcohol Associated Symptoms: denies: Suicidal Thoughts, Suicidal Plan Involuntary Hold By: None Recent travel outside of the [place]: No Additional History Per: Patient Past Medical History Reviewed: Historical Data, Nursing Documentation, Vital Signs Vital Signs: Last Vital Signs Temp 97.4 F L 08/31/17 14:10 Pulse 73 08/31/17 14:10 Resp 18 08/31/17 14:10 BP 133/89 08/31/17 14:10 Pulse Ox 98 08/31/17 17:40 - Medical History PMH: Anxiety, Arthritis, Bronchitis, CAD, Depression, 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 advertising writer, not aware), Fractures (Rt. Fa.), Gastritis, Gall Bladder Disease (s/p cholecystectomy), HTN, Post Traumatic Stress Disorder, Rheumatoid Arthritis, Seizures, Chronic Pain Denies: Chronic Kidney Disease Surgical History: Cholecystectomy - [facility] Procedures ALCOHOL DETOXIFICATION (07/04/15) APPLICATION OF SPLINT (03/20/13) CLOSURE SKIN & SUBCUTANEOUS NEC (08/14/13) DETOXIFICATION SERVICES FOR SUBSTANCE ABUSE TREATMENT (03/22/16) ESOPHAGOGASTRODUODENOSCOPY [EGD] W/CLOSED BIOPSY (02/16/15) OTHER GROUP THERAPY (03/12/13) PHYSICAL THERAPY NEC (07/04/15) TETANUS TOXOID ADMINIST (01/19/14) Family History: States: Unknown Family Hx - Social History Hx Tobacco Use: No Hx Alcohol Use: Yes Hx Substance Use: No - Immunization History Hx Tetanus Toxoid Vaccination: No Hx Influenza Vaccination: No Hx Pneumococcal Vaccination: No Review Of Systems Psych: Positive for: Other (EtOH intoxication ) Physical Exam - Physical Exam Appears: No Acute Distress, Other (visibly intoxicated) Skin: Normal Color, Warm, Dry Head: Atraumatic, Normacephalic Eye(s): bilateral: Normal Inspection Oral Mucosa: Moist, Other (alcohol on breath ) Neck: Supple Chest: Symmetrical, No Deformity, No Tenderness Cardiovascular: Rhythm Regular, No Murmur Respiratory: Normal Breath Sounds, No Rales, No Rhonchi, No Wheezing Extremity: Normal ROM, Capillary Refill (less than 2 seconds ) Neurological/Psych: Other (arousable to touch and verbal stimuli ) Gait: Unsteady ED Course And Treatment O2 Sat by Pulse Oximetry: 98 (on RA) Pulse Ox Interpretation: Normal Reevaluation Time: 17:55 Reassessment Condition: Improved (stable gait in hallway, wants d/c to street now. Sheltere placement or with his Sister aramis encouraged due to cold temperatures.) Disposition Doctor Will See Patient In The: Office Counseled Patient/Family Regarding: Studies Performed, Diagnosis - Disposition Disposition: HOME/ ROUTINE Disposition Time: 17:56 Condition: GOOD Forms: [facility] (Tongan) - Clinical Impression Clinical Impression: Alcohol abuse, daily use - Scribe Statement The provider has reviewed the documentation as recorded by the Scribe (Kari Fajardo) Provider Attestation: All medical record entries made by the Scribe were at my direction and personally dictated by me. I have reviewed the chart and agree that the record accurately reflects my personal performance of the history, physical exam, medical decision making, and the department course for this patient. I have also personally directed, reviewed, and agree with the discharge instructions and disposition.
== END 2017-08-31 18:47 | disposition home or self-care (01) ==
LOC: C.ER 13:51
DX: F10.129 Alcohol abuse with intoxication, unspecified (principal); Y90.9 Presence of alcohol in blood, level not specified

== ENCOUNTER 2017-09-01 18:11 | Emergency (ER) | payer MEDICAID ==
[2017-09-01 18:11] VITALS: BMI 24.3
--- NOTE | 2017-09-01 19:12 | C.PDOC ---
History Of Present Illness Patient presents to the ER with acute ETOH intoxication. Patient is well known to the ER for ETOH abuse. Denies physical complaints at this time. Time Seen by Provider: 09/01/17 19:10 Chief Complaint (Nursing): Substance Abuse History Per: Patient History/Exam Limitations: no limitations Onset/Duration Of Symptoms: Hrs Current Symptoms Are (Timing): Still Present Suicide/Self Injury Attempted (Context): None Modifying Factor(s): Alcohol Severity: None Pain Scale Rating Of: 0 Associated Symptoms: denies: Depression, Suicidal Thoughts, Suicidal Plan Involuntary Hold By: None Recent travel outside of the [place]: No Past Medical History Reviewed: Historical Data, Nursing Documentation, Vital Signs Vital Signs: Last Vital Signs Temp 98 F 09/02/17 04:15 Pulse 90 09/02/17 04:15 Resp 18 09/02/17 04:15 BP 146/94 H 09/02/17 04:15 Pulse Ox 95 09/02/17 04:15 - Medical History PMH: Anxiety, Arthritis, Bronchitis, CAD, Depression, 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 assembly instructions writer, not aware), Fractures (Rt. Fa.), Gastritis, Gall Bladder Disease (s/p cholecystectomy), HTN, Post Traumatic Stress Disorder, Rheumatoid Arthritis, Seizures, Chronic Pain Surgical History: Cholecystectomy - [facility] Procedures ALCOHOL DETOXIFICATION (07/04/15) APPLICATION OF SPLINT (03/20/13) CLOSURE SKIN & SUBCUTANEOUS NEC (08/14/13) DETOXIFICATION SERVICES FOR SUBSTANCE ABUSE TREATMENT (03/22/16) ESOPHAGOGASTRODUODENOSCOPY [EGD] W/CLOSED BIOPSY (02/16/15) OTHER GROUP THERAPY (03/12/13) PHYSICAL THERAPY NEC (07/04/15) TETANUS TOXOID ADMINIST (01/19/14) Family History: States: Unknown Family Hx - Social History Hx Tobacco Use: No Hx Alcohol Use: Yes Hx Substance Use: No - Immunization History Hx Tetanus Toxoid Vaccination: No Hx Influenza Vaccination: No Hx Pneumococcal Vaccination: No Review Of Systems Constitutional: Negative for: Fever, Chills Gastrointestinal: Negative for: Nausea, Vomiting, Diarrhea Physical Exam - Physical Exam Appears: Non-toxic, No Acute Distress, Other (ETOH on breath) Skin: Warm, Dry Head: Normacephalic Oral Mucosa: Moist Chest: Symmetrical, No Tenderness Cardiovascular: Rhythm Regular Respiratory: No Rales, No Rhonchi, No Wheezing Gastrointestinal/Abdominal: Soft, No Tenderness Neurological/Psych: Oriented x3 ED Course And Treatment O2 Sat by Pulse Oximetry: 98 (Room air) Pulse Ox Interpretation: Normal Reevaluation Time: 05:37 Reassessment Condition: Improved Disposition Counseled Patient/Family Regarding: Studies Performed, Diagnosis, Need For Followup - Disposition Referrals: [facility] [Outside] Disposition: HOME/ ROUTINE Disposition Time: 19:11 Condition: FAIR Instructions: Alcohol Intoxication (DC) Forms: [employer] (Romansh) - Clinical Impression Clinical Impression: Chronic alcoholism, Alcoholic intoxication - Scribe Statement The provider has reviewed the documentation as recorded by the Scribe Fabián Ramirez All medical record entries made by the Scribe were at my direction and personally dictated by me. I have reviewed the chart and agree that the record accurately reflects my personal performance of the history, physical exam, medical decision making, and the department course for this patient. I have also personally directed, reviewed, and agree with the discharge instructions and disposition.
[2017-09-02 05:20] VITALS: BP 146/94; PULSE 90; RESP 18; TEMP 98
[2017-09-02 05:38] VITALS: O2SAT 98
== END 2017-09-02 05:15 | disposition home or self-care (01) ==
LOC: C.ER 18:11
DX: F10.229 Alcohol dependence with intoxication, unspecified (principal); Y90.9 Presence of alcohol in blood, level not specified

== ENCOUNTER 2017-09-02 18:19 | Emergency (ER) | payer MEDICAID ==
[2017-09-02 18:20] VITALS: BMI 24.3
--- NOTE | 2017-09-02 19:47 | C.PDOC ---
History Of Present Illness Patient presents to ED in an acute ETOH intoxication. Patient at ED states "I was drinking". No physical complaints at this time. Time Seen by Provider: 09/02/17 19:33 Chief Complaint (Nursing): Substance Abuse History Per: Patient History/Exam Limitations: no limitations Onset/Duration Of Symptoms: Hrs Current Symptoms Are (Timing): Still Present Suicide/Self Injury Attempted (Context): None Modifying Factor(s): Alcohol Severity: Mild Pain Scale Rating Of: 2 Associated Symptoms: denies: Anger, Anxiety, Suicidal Thoughts Involuntary Hold By: None Past Medical History Reviewed: Historical Data, Nursing Documentation, Vital Signs Vital Signs: Last Vital Signs Temp 97.6 F 09/02/17 18:31 Pulse 72 09/03/17 00:43 Resp 18 09/03/17 00:43 BP 144/68 09/03/17 00:43 Pulse Ox 97 09/03/17 00:43 - Medical History PMH: Anxiety, Arthritis, Bronchitis, CAD, Depression, 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 credit underwriter, not aware), Fractures (Rt. Fa.), Gastritis, Gall Bladder Disease (s/p cholecystectomy), HTN, Post Traumatic Stress Disorder, Rheumatoid Arthritis, Seizures, Chronic Pain Surgical History: Cholecystectomy - [facility] Procedures ALCOHOL DETOXIFICATION (07/04/15) APPLICATION OF SPLINT (03/20/13) CLOSURE SKIN & SUBCUTANEOUS NEC (08/14/13) DETOXIFICATION SERVICES FOR SUBSTANCE ABUSE TREATMENT (03/22/16) ESOPHAGOGASTRODUODENOSCOPY [EGD] W/CLOSED BIOPSY (02/16/15) OTHER GROUP THERAPY (03/12/13) PHYSICAL THERAPY NEC (07/04/15) TETANUS TOXOID ADMINIST (01/19/14) Family History: States: No Known Family Hx - Social History Hx Tobacco Use: No Hx Alcohol Use: Yes Hx Substance Use: No - Immunization History Hx Tetanus Toxoid Vaccination: No Hx Influenza Vaccination: No Hx Pneumococcal Vaccination: No Review Of Systems Constitutional: Negative for: Fever, Chills Cardiovascular: Negative for: Chest Pain Respiratory: Negative for: Shortness of Breath Gastrointestinal: Negative for: Nausea, Vomiting Skin: Negative for: Rash Psych: Negative for: Anxiety, Suicidal ideation Physical Exam - Physical Exam Appears: Non-toxic, No Acute Distress, Other (ETOH on breath) Skin: Warm, Dry, No Rash Head: Normacephalic Oral Mucosa: Moist Cardiovascular: Rhythm Regular Respiratory: No Rales, No Rhonchi, No Wheezing Gastrointestinal/Abdominal: Soft, No Tenderness, No Guarding, No Rebound Neurological/Psych: Oriented x3 ED Course And Treatment O2 Sat by Pulse Oximetry: 96 (RA) Pulse Ox Interpretation: Normal Reevaluation Time: 05:17 Reassessment Condition: Improved Disposition Counseled Patient/Family Regarding: Studies Performed, Diagnosis, Need For Followup - Disposition Referrals: [facility] [Outside] Disposition: HOME/ ROUTINE Disposition Time: 05:17 Condition: FAIR Instructions: Alcohol Intoxication (DC) Forms: [employer] (Hungarian) - Clinical Impression Clinical Impression: Alcohol intoxication, H/O alcohol abuse, Alcohol abuse, daily use - Scribe Statement The provider has reviewed the documentation as recorded by the Scribjosé miguel Contreras All medical record entries made by the Scribe were at my direction and personally dictated by me. I have reviewed the chart and agree that the record accurately reflects my personal performance of the history, physical exam, medical decision making, and the department course for this patient. I have also personally directed, reviewed, and agree with the discharge instructions and disposition.
[2017-09-03 06:03] VITALS: BP 138/76; PULSE 79; RESP 20; TEMP 97.4; O2SAT 97
== END 2017-09-03 06:03 | disposition home or self-care (01) ==
LOC: C.ER 18:19
DX: F10.129 Alcohol abuse with intoxication, unspecified (principal); Y90.9 Presence of alcohol in blood, level not specified

== ENCOUNTER 2017-09-03 19:46 | Emergency (ER) | payer MEDICAID ==
[2017-09-03 19:46] VITALS: BMI 24.3
[2017-09-03 20:29] VITALS: RESP 18; O2SAT 98
[2017-09-03 22:44] VITALS: BP 117/71; PULSE 86; TEMP 98.2
--- NOTE | 2017-09-04 00:45 | C.PDOC ---
History Of Present Illness 56 year old male with Hx of ETOH abuse presents to the ED intoxicated. Patient is a local homeless man that is intoxicated, disheveled, malodorous. He denies any physical complaints at the time. Time Seen by Provider: 09/03/17 21:28 Chief Complaint (Nursing): Substance Abuse History Per: Patient History/Exam Limitations: intoxication Onset/Duration Of Symptoms: Hrs Current Symptoms Are (Timing): Still Present Suicide/Self Injury Attempted (Context): None Modifying Factor(s): Alcohol Associated Symptoms: denies: Suicidal Thoughts, Suicidal Plan Involuntary Hold By: None Recent travel outside of the [place]: No Additional History Per: Patient Past Medical History Reviewed: Historical Data, Nursing Documentation, Vital Signs Vital Signs: Last Vital Signs Temp 98.2 F 09/03/17 22:43 Pulse 86 09/03/17 22:43 Resp 18 09/03/17 22:43 BP 117/71 09/03/17 22:43 Pulse Ox 98 09/04/17 00:47 - Medical History PMH: Anxiety, Arthritis, Bronchitis, CAD, Depression, 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 senior medical writer, not aware), Fractures (Rt. Fa.), Gastritis, Gall Bladder Disease (s/p cholecystectomy), HTN, Post Traumatic Stress Disorder, Rheumatoid Arthritis, Seizures, Chronic Pain Denies: Chronic Kidney Disease Surgical History: Cholecystectomy - [facility] Procedures ALCOHOL DETOXIFICATION (07/04/15) APPLICATION OF SPLINT (03/20/13) CLOSURE SKIN & SUBCUTANEOUS NEC (08/14/13) DETOXIFICATION SERVICES FOR SUBSTANCE ABUSE TREATMENT (03/22/16) ESOPHAGOGASTRODUODENOSCOPY [EGD] W/CLOSED BIOPSY (02/16/15) OTHER GROUP THERAPY (03/12/13) PHYSICAL THERAPY NEC (07/04/15) TETANUS TOXOID ADMINIST (01/19/14) Family History: States: Unknown Family Hx - Social History Hx Tobacco Use: No Hx Alcohol Use: Yes Hx Substance Use: No - Immunization History Hx Tetanus Toxoid Vaccination: No Hx Influenza Vaccination: No Hx Pneumococcal Vaccination: No Review Of Systems Constitutional: Negative for: Fever, Chills, Weakness Cardiovascular: Negative for: Chest Pain, Palpitations Respiratory: Negative for: Cough, Shortness of Breath Gastrointestinal: Negative for: Nausea, Vomiting, Abdominal Pain Genitourinary: Negative for: Incontinence Neurological: Negative for: Weakness, Numbness Psych: Negative for: Suicidal ideation Physical Exam - Physical Exam Appears: Other (Intoxicated, disheveled, malodorous) Skin: Normal Color, Warm, Dry Head: Atraumatic, Normacephalic Oral Mucosa: Moist Chest: Symmetrical Cardiovascular: Rhythm Regular, No Murmur Respiratory: Normal Breath Sounds, No Accessory Muscle Use, No Rales, No Rhonchi , No Wheezing Gastrointestinal/Abdominal: Soft, No Tenderness Extremity: Normal ROM, No Pedal Edema, No Calf Tenderness, No Swelling Neurological/Psych: Oriented x3, Normal Speech, Normal Cognition Gait: Steady ED Course And Treatment O2 Sat by Pulse Oximetry: 98 (On RA) Pulse Ox Interpretation: Normal Disposition Doctor Will See Patient In The: Office Counseled Patient/Family Regarding: Studies Performed, Diagnosis - Disposition Disposition: HOME/ ROUTINE Disposition Time: 22:00 Condition: GOOD Forms: [facility] (Maldivian) - Clinical Impression Clinical Impression: Chronic alcoholism - Scribe Statement The provider has reviewed the documentation as recorded by the Scribe Woo Brown All medical record entries made by the Scribe were at my direction and personally dictated by me. I have reviewed the chart and agree that the record accurately reflects my personal performance of the history, physical exam, medical decision making, and the department course for this patient. I have also personally directed, reviewed, and agree with the discharge instructions and disposition.
== END 2017-09-03 23:33 | disposition home or self-care (01) ==
LOC: C.ER 19:46
DX: F10.20 Alcohol dependence, uncomplicated (principal); Y90.9 Presence of alcohol in blood, level not specified; Z59.0 Homelessness

== ENCOUNTER 2017-09-04 19:56 | Emergency (ER) | payer MEDICAID ==
[2017-09-04 19:56] VITALS: BMI 24.3
--- NOTE | 2017-09-04 20:16 | C.PDOC ---
History Of Present Illness 56 y/o male presents with acute alcohol intoxication. Patient has multiple prior visit to the ER for the same complaint. Patient denies HI, SI, or somatic complaints. Time Seen by Provider: 09/04/17 20:17 History Per: Patient Onset/Duration Of Symptoms: Hrs Current Symptoms Are (Timing): Still Present Suicide/Self Injury Attempted (Context): None Modifying Factor(s): Alcohol Severity: Mild Associated Symptoms: denies: Suicidal Thoughts, Suicidal Plan Involuntary Hold By: None Recent travel outside of the [place]: No Additional History Per: Patient Past Medical History Reviewed: Historical Data, Nursing Documentation, Vital Signs Vital Signs: Last Vital Signs Temp 97.9 F 09/04/17 21:24 Pulse 82 09/04/17 21:24 Resp 18 09/04/17 21:24 BP 126/72 09/04/17 21:24 Pulse Ox 96 09/04/17 21:24 - Medical History PMH: Anxiety, Arthritis, Bronchitis, CAD, Depression, 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 chart writer, not aware), Fractures (Rt. Fa.), Gastritis, Gall Bladder Disease (s/p cholecystectomy), HTN, Post Traumatic Stress Disorder, Rheumatoid Arthritis, Seizures, Chronic Pain Denies: Chronic Kidney Disease Surgical History: Cholecystectomy - [facility] Procedures ALCOHOL DETOXIFICATION (07/04/15) APPLICATION OF SPLINT (03/20/13) CLOSURE SKIN & SUBCUTANEOUS NEC (08/14/13) DETOXIFICATION SERVICES FOR SUBSTANCE ABUSE TREATMENT (03/22/16) ESOPHAGOGASTRODUODENOSCOPY [EGD] W/CLOSED BIOPSY (02/16/15) OTHER GROUP THERAPY (03/12/13) PHYSICAL THERAPY NEC (07/04/15) TETANUS TOXOID ADMINIST (01/19/14) Family History: States: Unknown Family Hx - Social History Hx Tobacco Use: No Hx Alcohol Use: Yes Hx Substance Use: No - Immunization History Hx Tetanus Toxoid Vaccination: No Hx Influenza Vaccination: No Hx Pneumococcal Vaccination: No Review Of Systems Except As Marked, All Systems Reviewed And Found Negative. Constitutional: Positive for: Other (Acute alcohol intoxication). Negative for : Fever, Chills Cardiovascular: Negative for: Chest Pain, Palpitations Respiratory: Negative for: Shortness of Breath Gastrointestinal: Negative for: Abdominal Pain Psych: Negative for: Suicidal ideation, Other (HI) Physical Exam - Physical Exam Appears: Non-toxic, No Acute Distress, Other (Acute alcohol intoxication, (+) AOB, no signs of truma) Skin: Warm, Dry Head: Atraumatic, Normacephalic Eye(s): bilateral: Normal Inspection Oral Mucosa: Moist Chest: Symmetrical Cardiovascular: Rhythm Regular, No Murmur Respiratory: Normal Breath Sounds, No Rales, No Rhonchi, No Wheezing Gastrointestinal/Abdominal: Soft, No Tenderness Back: No CVA Tenderness Neurological/Psych: Oriented x3, No Normal Speech (Slurred) Gait: Unsteady ED Course And Treatment Pulse Ox Interpretation: Normal Disposition Counseled Patient/Family Regarding: Diagnosis - Disposition Referrals: [facility] [Outside] Disposition: HOME/ ROUTINE Disposition Time: 05:36 Condition: GOOD Instructions: Abuse of Alcohol (ED) Forms: [facility] (Croatian) - POA Present On Arrival: None - Clinical Impression Clinical Impression: Alcohol abuse with intoxication - Scribe Statement The provider has reviewed the documentation as recorded by the Scribe Rhoda morillo All medical record entries made by the Scribe were at my direction and personally dictated by me. I have reviewed the chart and agree that the record accurately reflects my personal performance of the history, physical exam, medical decision making, and the department course for this patient. I have also personally directed, reviewed, and agree with the discharge instructions and disposition.
[2017-09-04 21:27] VITALS: BP 126/72; PULSE 82; RESP 18; TEMP 97.9; O2SAT 96
== END 2017-09-05 04:30 | disposition home or self-care (01) ==
LOC: C.ER 19:56
DX: F10.129 Alcohol abuse with intoxication, unspecified (principal); Y90.9 Presence of alcohol in blood, level not specified

== ENCOUNTER 2017-09-05 19:54 | Emergency (ER) | payer MEDICAID ==
[2017-09-05 19:54] VITALS: BMI 24.3
--- NOTE | 2017-09-05 20:23 | C.PDOC ---
History Of Present Illness Patient presents to ED in an acute ETOH intoxication and with an unsteady gait looking for a place to rest. Patient is a frequent ED visitor for same reasons. No physical complaints at this time. Time Seen by Provider: 09/05/17 20:22 History Per: Patient History/Exam Limitations: no limitations Onset/Duration Of Symptoms: Days Current Symptoms Are (Timing): Still Present Suicide/Self Injury Attempted (Context): None Modifying Factor(s): Alcohol Severity: Mild Pain Scale Rating Of: 2 Associated Symptoms: denies: Anger, Anxiety Involuntary Hold By: None Past Medical History Reviewed: Historical Data, Nursing Documentation, Vital Signs Vital Signs: Last Vital Signs Temp 97.5 F L 09/05/17 20:23 Pulse 80 09/05/17 20:23 Resp 14 09/05/17 20:23 BP 150/80 09/05/17 20:23 Pulse Ox 100 09/05/17 20:34 - Medical History PMH: Anxiety, Arthritis, Bronchitis, CAD, Depression, 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), Fractures (Rt. Fa.), Gastritis, Gall Bladder Disease (s/p cholecystectomy), HTN, Post Traumatic Stress Disorder, Rheumatoid Arthritis, Seizures, Chronic Pain Surgical History: Cholecystectomy - [facility] Procedures ALCOHOL DETOXIFICATION (07/04/15) APPLICATION OF SPLINT (03/20/13) CLOSURE SKIN & SUBCUTANEOUS NEC (08/14/13) DETOXIFICATION SERVICES FOR SUBSTANCE ABUSE TREATMENT (03/22/16) ESOPHAGOGASTRODUODENOSCOPY [EGD] W/CLOSED BIOPSY (02/16/15) OTHER GROUP THERAPY (03/12/13) PHYSICAL THERAPY NEC (07/04/15) TETANUS TOXOID ADMINIST (01/19/14) Family History: States: No Known Family Hx - Social History Hx Tobacco Use: No Hx Alcohol Use: Yes Hx Substance Use: No - Immunization History Hx Tetanus Toxoid Vaccination: No Hx Influenza Vaccination: No Hx Pneumococcal Vaccination: No Review Of Systems Constitutional: Negative for: Fever, Chills Cardiovascular: Negative for: Chest Pain Respiratory: Negative for: Shortness of Breath Gastrointestinal: Negative for: Nausea, Vomiting Skin: Negative for: Rash Psych: Negative for: Anxiety, Suicidal ideation Physical Exam - Physical Exam Appears: Non-toxic, Other (ETOH on breath) Skin: Warm, Dry, No Rash Head: Normacephalic Eye(s): bilateral: PERRL, EOMI Oral Mucosa: Moist Neck: Supple Cardiovascular: Rhythm Regular Respiratory: No Rales, No Rhonchi, No Wheezing Gastrointestinal/Abdominal: Soft, No Tenderness, No Guarding, No Rebound Neurological/Psych: Oriented x3 Gait: Unsteady ED Course And Treatment O2 Sat by Pulse Oximetry: 100 (RA) Pulse Ox Interpretation: Normal Reevaluation Time: 05:14 Reassessment Condition: Improved Disposition Counseled Patient/Family Regarding: Studies Performed, Diagnosis, Need For Followup - Disposition Referrals: [facility] at [facility] [Outside] Disposition: HOME/ ROUTINE Disposition Time: 20:23 Condition: FAIR Instructions: Alcohol Intoxication (DC) - Clinical Impression Clinical Impression: Chronic alcoholism, Alcohol intoxication - Scribe Statement The provider has reviewed the documentation as recorded by the Scribjosé miguel Contreras All medical record entries made by the Scribe were at my direction and personally dictated by me. I have reviewed the chart and agree that the record accurately reflects my personal performance of the history, physical exam, medical decision making, and the department course for this patient. I have also personally directed, reviewed, and agree with the discharge instructions and disposition.
[2017-09-06 05:45] VITALS: BP 134/78; PULSE 95; RESP 20; TEMP 98; O2SAT 97
== END 2017-09-06 05:45 | disposition home or self-care (01) ==
LOC: C.ER 19:54
DX: F10.229 Alcohol dependence with intoxication, unspecified (principal); E11.9 Type 2 diabetes mellitus without complications; I10 Essential (primary) hypertension; M06.9 Rheumatoid arthritis, unspecified

== ENCOUNTER 2017-09-06 21:13 | Emergency (ER) | payer MEDICAID ==
[2017-09-06 21:14] VITALS: BMI 24.3
--- NOTE | 2017-09-06 21:17 | C.PDOC ---
History Of Present Illness Patient brought in via EMS after being found intoxicated in public. Denies physical complaints at this time. Time Seen by Provider: 09/06/17 21:16 History Per: Patient History/Exam Limitations: no limitations Onset/Duration Of Symptoms: Hrs Current Symptoms Are (Timing): Still Present Suicide/Self Injury Attempted (Context): None Modifying Factor(s): Alcohol Severity: None Pain Scale Rating Of: 0 Associated Symptoms: denies: Depression, Suicidal Thoughts, Suicidal Plan Involuntary Hold By: None Recent travel outside of the [place]: No Past Medical History Reviewed: Historical Data, Nursing Documentation, Vital Signs Vital Signs: Last Vital Signs Temp 97.6 F 09/06/17 21:25 Pulse 70 09/07/17 01:05 Resp 14 09/07/17 01:05 BP 120/70 09/07/17 01:05 Pulse Ox 96 09/07/17 01:05 - Medical History PMH: Anxiety, Arthritis, Bronchitis, CAD, Depression, 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 handbook writer, not aware), Fractures (Rt. Fa.), Gastritis, Gall Bladder Disease (s/p cholecystectomy), HTN, Post Traumatic Stress Disorder, Rheumatoid Arthritis, Seizures, Chronic Pain Surgical History: Cholecystectomy - [facility] Procedures ALCOHOL DETOXIFICATION (07/04/15) APPLICATION OF SPLINT (03/20/13) CLOSURE SKIN & SUBCUTANEOUS NEC (08/14/13) DETOXIFICATION SERVICES FOR SUBSTANCE ABUSE TREATMENT (03/22/16) ESOPHAGOGASTRODUODENOSCOPY [EGD] W/CLOSED BIOPSY (02/16/15) OTHER GROUP THERAPY (03/12/13) PHYSICAL THERAPY NEC (07/04/15) TETANUS TOXOID ADMINIST (01/19/14) Family History: States: No Known Family Hx - Social History Hx Tobacco Use: No Hx Alcohol Use: Yes Hx Substance Use: No - Immunization History Hx Tetanus Toxoid Vaccination: No Hx Influenza Vaccination: No Hx Pneumococcal Vaccination: No Review Of Systems Constitutional: Negative for: Fever, Chills Gastrointestinal: Negative for: Nausea, Vomiting, Diarrhea Physical Exam - Physical Exam Appears: Non-toxic, No Acute Distress, Other (ETOH on breath) Skin: Warm, Dry Head: Normacephalic Oral Mucosa: Moist Chest: Symmetrical Cardiovascular: Rhythm Regular Respiratory: No Rales, No Rhonchi, No Wheezing Gastrointestinal/Abdominal: Soft, No Tenderness Neurological/Psych: Oriented x3 ED Course And Treatment O2 Sat by Pulse Oximetry: 96 Pulse Ox Interpretation: Normal Reevaluation Time: 05:20 Reassessment Condition: Improved Disposition Counseled Patient/Family Regarding: Studies Performed, Diagnosis, Need For Followup - Disposition Referrals: [facility] at [facility] [Outside] Disposition: HOME/ ROUTINE Disposition Time: 21:16 Condition: FAIR Instructions: Alcohol Intoxication (DC) - Clinical Impression Clinical Impression: Alcohol intoxication, Alcohol abuse, daily use - Scribe Statement The provider has reviewed the documentation as recorded by the Scribjosé miguel Ramirez All medical record entries made by the Scribe were at my direction and personally dictated by me. I have reviewed the chart and agree that the record accurately reflects my personal performance of the history, physical exam, medical decision making, and the department course for this patient. I have also personally directed, reviewed, and agree with the discharge instructions and disposition.
[2017-09-06 21:28] VITALS: TEMP 97.6; O2SAT 96
[2017-09-07 01:06] VITALS: BP 120/70; PULSE 70; RESP 14
== END 2017-09-07 05:32 | disposition home or self-care (01) ==
LOC: C.ER 21:13
DX: F10.129 Alcohol abuse with intoxication, unspecified (principal); E11.9 Type 2 diabetes mellitus without complications; I10 Essential (primary) hypertension; I25.10 Atherosclerotic heart disease of native coronary artery without angina pectoris

== ENCOUNTER 2017-09-07 19:52 | Emergency (ER) | payer MEDICAID ==
[2017-09-07 19:52] VITALS: BMI 24.3
[2017-09-07 20:40] VITALS: RESP 20; TEMP 97.2
--- NOTE | 2017-09-07 20:43 | C.PDOC ---
History Of Present Illness 56 year old male presents to ED with ETOH intoxication. Patient is a well known homeless that has Hx with ETOH intoxication, he denies any physical complaints at the time. Time Seen by Provider: 09/07/17 20:41 Chief Complaint (Nursing): Substance Abuse History Per: Patient History/Exam Limitations: intoxication Onset/Duration Of Symptoms: Hrs Current Symptoms Are (Timing): Still Present Suicide/Self Injury Attempted (Context): None Modifying Factor(s): Alcohol Associated Symptoms: denies: Suicidal Thoughts, Suicidal Plan Involuntary Hold By: None Recent travel outside of the [place]: No Additional History Per: Patient Past Medical History Reviewed: Historical Data, Nursing Documentation, Vital Signs Vital Signs: Last Vital Signs Temp 97.2 F L 09/07/17 20:37 Pulse 97 H 09/07/17 20:37 Resp 20 09/07/17 20:37 BP 141/93 H 09/07/17 20:37 Pulse Ox 95 09/07/17 20:43 - Medical History PMH: Anxiety, Arthritis, Bronchitis, CAD, Depression, 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 journalists and other writers, not aware), Fractures (Rt. Fa.), Gastritis, Gall Bladder Disease (s/p cholecystectomy), HTN, Post Traumatic Stress Disorder, Rheumatoid Arthritis, Seizures, Chronic Pain Denies: Chronic Kidney Disease Surgical History: Cholecystectomy - [facility] Procedures ALCOHOL DETOXIFICATION (07/04/15) APPLICATION OF SPLINT (03/20/13) CLOSURE SKIN & SUBCUTANEOUS NEC (08/14/13) DETOXIFICATION SERVICES FOR SUBSTANCE ABUSE TREATMENT (03/22/16) ESOPHAGOGASTRODUODENOSCOPY [EGD] W/CLOSED BIOPSY (02/16/15) OTHER GROUP THERAPY (03/12/13) PHYSICAL THERAPY NEC (07/04/15) TETANUS TOXOID ADMINIST (01/19/14) Family History: States: Unknown Family Hx - Social History Hx Tobacco Use: No Hx Alcohol Use: Yes Hx Substance Use: No - Immunization History Hx Tetanus Toxoid Vaccination: No Hx Influenza Vaccination: No Hx Pneumococcal Vaccination: No Review Of Systems Constitutional: Negative for: Fever, Chills Cardiovascular: Negative for: Chest Pain, Palpitations Respiratory: Negative for: Cough, Shortness of Breath Gastrointestinal: Negative for: Nausea, Vomiting, Abdominal Pain Neurological: Negative for: Weakness, Numbness Psych: Negative for: Suicidal ideation Physical Exam - Physical Exam Appears: Other (Intoxicated, malodorous ) Skin: Normal Color, Warm, Dry Head: Atraumatic, Normacephalic Oral Mucosa: Moist Neck: Normal ROM, Supple Chest: Symmetrical Cardiovascular: Rhythm Regular, No Murmur Respiratory: Normal Breath Sounds, No Rales, No Rhonchi, No Wheezing Gastrointestinal/Abdominal: Soft, No Tenderness Extremity: Normal ROM, No Pedal Edema, No Calf Tenderness, No Swelling Neurological/Psych: Oriented x3, Normal Speech, Normal Cognition Gait: Steady ED Course And Treatment O2 Sat by Pulse Oximetry: 95 (On RA) Pulse Ox Interpretation: Normal Medical Decision Making Medical Decision Making: alcohol abuse, malingering stable gait ok to d/c Custodial placement info given Disposition Doctor Will See Patient In The: Office Counseled Patient/Family Regarding: Studies Performed, Diagnosis - Disposition Referrals: [facility] [Outside] [facility] [Outside] [facility] [Outside] Disposition: HOME/ ROUTINE Disposition Time: 20:42 Condition: GOOD Additional Instructions: seek help for your alcohol abuse Seek nightly Custodial placement Instructions: Abuse of Alcohol (ED) Forms: [facility] (Sao Tomean) - Clinical Impression Clinical Impression: Alcohol abuse, Malingering - Scribe Statement The provider has reviewed the documentation as recorded by the Scribe Woo Brown All medical record entries made by the Scribe were at my direction and personally dictated by me. I have reviewed the chart and agree that the record accurately reflects my personal performance of the history, physical exam, medical decision making, and the department course for this patient. I have also personally directed, reviewed, and agree with the discharge instructions and disposition.
[2017-09-07 23:54] VITALS: BP 139/90; PULSE 84; O2SAT 96
== END 2017-09-08 00:20 | disposition home or self-care (01) ==
LOC: C.ER 19:52
DX: F10.129 Alcohol abuse with intoxication, unspecified (principal); I10 Essential (primary) hypertension; E11.9 Type 2 diabetes mellitus without complications; I25.10 Atherosclerotic heart disease of native coronary artery without angina pectoris; Z59.0 Homelessness

== ENCOUNTER 2017-09-08 18:21 | Emergency (ER) | payer MEDICAID ==
[2017-09-08 18:22] VITALS: BMI 24.3
--- NOTE | 2017-09-08 19:23 | C.PDOC ---
History Of Present Illness Wally Pina is a 56-year-old male who presents to the ED for alcohol intoxication. Patient admits to alcohol use today. Ambulates with unsteady gait. No obvious injury or trauma noted. PMD: None Time Seen by Provider: 09/08/17 19:10 Chief Complaint (Nursing): Substance Abuse History Per: Patient History/Exam Limitations: no limitations Onset/Duration Of Symptoms: Days (x 1) Current Symptoms Are (Timing): Still Present Modifying Factor(s): Alcohol Past Medical History Reviewed: Historical Data, Nursing Documentation, Vital Signs Vital Signs: Last Vital Signs Temp 98 F 09/09/17 03:13 Pulse 85 09/09/17 03:13 Resp 16 09/09/17 03:13 BP 145/86 09/09/17 03:13 Pulse Ox 99 09/09/17 03:13 - Medical History PMH: Anxiety, Arthritis, Bronchitis, CAD, Depression, 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 tester, not aware), Fractures (Rt. Fa.), Gastritis, Gall Bladder Disease (s/p cholecystectomy), HTN, Post Traumatic Stress Disorder, Rheumatoid Arthritis, Seizures, Chronic Pain Denies: Chronic Kidney Disease Surgical History: Cholecystectomy - [facility] Procedures ALCOHOL DETOXIFICATION (07/04/15) APPLICATION OF SPLINT (03/20/13) CLOSURE SKIN & SUBCUTANEOUS NEC (08/14/13) DETOXIFICATION SERVICES FOR SUBSTANCE ABUSE TREATMENT (03/22/16) ESOPHAGOGASTRODUODENOSCOPY [EGD] W/CLOSED BIOPSY (02/16/15) OTHER GROUP THERAPY (03/12/13) PHYSICAL THERAPY NEC (07/04/15) TETANUS TOXOID ADMINIST (01/19/14) Family History: States: Unknown Family Hx - Social History Hx Tobacco Use: No Hx Alcohol Use: Yes Hx Substance Use: No - Immunization History Hx Tetanus Toxoid Vaccination: No Hx Influenza Vaccination: No Hx Pneumococcal Vaccination: No Review Of Systems Except As Marked, All Systems Reviewed And Found Negative. Musculoskeletal: Negative for: Other (pain or injury) Psych: Positive for: Other (Alcohol use) Physical Exam - Physical Exam Appears: Non-toxic, No Acute Distress Skin: Normal Color, Warm, Dry Head: Atraumatic, Normacephalic Eye(s): bilateral: Normal Inspection, PERRL, EOMI Oral Mucosa: Moist Neck: Normal, Supple Chest: Symmetrical Cardiovascular: Rhythm Regular, No Murmur Respiratory: Normal Breath Sounds, No Accessory Muscle Use Gastrointestinal/Abdominal: Normal Exam, Soft, No Tenderness Back: Normal Inspection Extremity: Normal ROM, No Pedal Edema, No Deformity Neurological/Psych: Oriented x3, Other (Slurred speech. Alcohol on breath) Gait: Unsteady ED Course And Treatment O2 Sat by Pulse Oximetry: 95 (RA) Pulse Ox Interpretation: Normal Progress Note: Pt is pending clinical sobriety Disposition Counseled Patient/Family Regarding: Diagnosis - Disposition Referrals: [facility] at [facility] [Outside] Disposition: HOME/ ROUTINE Disposition Time: 04:33 Condition: STABLE Instructions: Abuse of Alcohol (ED) Forms: [facility] (Hungarian) - POA Present On Arrival: None - Clinical Impression Clinical Impression: Alcohol abuse with intoxication - Scribe Statement The provider has reviewed the documentation as recorded by the Scribjosé miguel Gunter All medical record entries made by the Scribe were at my direction and personally dictated by me. I have reviewed the chart and agree that the record accurately reflects my personal performance of the history, physical exam, medical decision making, and the department course for this patient. I have also personally directed, reviewed, and agree with the discharge instructions and disposition.
[2017-09-08 22:55] VITALS: RESP 16; TEMP 98
[2017-09-09 03:13] VITALS: BP 145/86
[2017-09-09 04:37] VITALS: PULSE 83; O2SAT 99
== END 2017-09-09 04:37 | disposition home or self-care (01) ==
LOC: C.ER 18:21
DX: F10.129 Alcohol abuse with intoxication, unspecified (principal); Y90.9 Presence of alcohol in blood, level not specified

== ENCOUNTER 2017-09-09 17:12 | Emergency (ER) | payer MEDICAID ==
[2017-09-09 17:12] VITALS: BMI 24.3
--- NOTE | 2017-09-09 19:19 | C.PDOC ---
Time Seen by Provider: 09/09/17 19:17 Chief Complaint (Nursing): Substance Abuse Past Medical History Vital Signs: Last Vital Signs Temp 98.7 F 09/09/17 17:33 Pulse 88 09/09/17 17:33 Resp 20 09/09/17 17:33 BP 125/84 09/09/17 17:33 Pulse Ox 97 09/09/17 17:33 - Medical History PMH: Anxiety, Arthritis, Bronchitis, CAD, Depression, 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 commercial lines underwriter, not aware), Fractures (Rt. Fa.), Gastritis, Gall Bladder Disease (s/p cholecystectomy), HTN, Post Traumatic Stress Disorder, Rheumatoid Arthritis, Seizures (etoh induced), Chronic Pain Denies: Chronic Kidney Disease Surgical History: Cholecystectomy - [facility] Procedures ALCOHOL DETOXIFICATION (07/04/15) APPLICATION OF SPLINT (03/20/13) CLOSURE SKIN & SUBCUTANEOUS NEC (08/14/13) DETOXIFICATION SERVICES FOR SUBSTANCE ABUSE TREATMENT (03/22/16) ESOPHAGOGASTRODUODENOSCOPY [EGD] W/CLOSED BIOPSY (02/16/15) OTHER GROUP THERAPY (03/12/13) PHYSICAL THERAPY NEC (07/04/15) TETANUS TOXOID ADMINIST (01/19/14) Family History: States: Unknown Family Hx - Social History Hx Tobacco Use: No Hx Alcohol Use: Yes Hx Substance Use: No - Immunization History Hx Tetanus Toxoid Vaccination: No Hx Influenza Vaccination: No Hx Pneumococcal Vaccination: No ED Course And Treatment O2 Sat by Pulse Oximetry: 97 Disposition Counseled Patient/Family Regarding: Studies Performed, Diagnosis - Disposition Referrals: [facility] at [facility] [Outside] Disposition: HOME/ ROUTINE Disposition Time: 19:18 Condition: FAIR Instructions: Alcohol Intoxication (DC) - Clinical Impression Clinical Impression: Alcoholic intoxication, Chronic alcoholism
--- NOTE | 2017-09-09 19:20 | C.PDOC ---
History Of Present Illness Patient presents to ED in an acute ETOH intoxication. Patient has frequent visits to ED for ETOH intoxication. No physical complaints at this time. Time Seen by Provider: 09/09/17 19:17 Chief Complaint (Nursing): Substance Abuse History Per: Patient History/Exam Limitations: no limitations Onset/Duration Of Symptoms: Hrs Current Symptoms Are (Timing): Still Present Suicide/Self Injury Attempted (Context): None Modifying Factor(s): Alcohol Associated Symptoms: denies: Anger, Anxiety Past Medical History Reviewed: Historical Data, Nursing Documentation, Vital Signs Vital Signs: Last Vital Signs Temp 98.7 F 09/09/17 17:33 Pulse 88 09/09/17 17:33 Resp 20 09/09/17 17:33 BP 125/84 09/09/17 17:33 Pulse Ox 97 09/09/17 19:22 - Medical History PMH: Anxiety, Arthritis, Bronchitis, CAD, Depression, 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 public relations writer, not aware), Fractures (Rt. Fa.), Gastritis, Gall Bladder Disease (s/p cholecystectomy), HTN, Post Traumatic Stress Disorder, Rheumatoid Arthritis, Seizures (etoh induced), Chronic Pain Surgical History: Cholecystectomy - [facility] Procedures ALCOHOL DETOXIFICATION (07/04/15) APPLICATION OF SPLINT (03/20/13) CLOSURE SKIN & SUBCUTANEOUS NEC (08/14/13) DETOXIFICATION SERVICES FOR SUBSTANCE ABUSE TREATMENT (03/22/16) ESOPHAGOGASTRODUODENOSCOPY [EGD] W/CLOSED BIOPSY (02/16/15) OTHER GROUP THERAPY (03/12/13) PHYSICAL THERAPY NEC (07/04/15) TETANUS TOXOID ADMINIST (01/19/14) Family History: States: No Known Family Hx - Social History Hx Tobacco Use: No Hx Alcohol Use: Yes Hx Substance Use: No - Immunization History Hx Tetanus Toxoid Vaccination: No Hx Influenza Vaccination: No Hx Pneumococcal Vaccination: No Review Of Systems Constitutional: Negative for: Fever, Chills Cardiovascular: Negative for: Chest Pain Respiratory: Negative for: Shortness of Breath Gastrointestinal: Negative for: Nausea, Vomiting Skin: Negative for: Rash Psych: Negative for: Anxiety Physical Exam - Physical Exam Appears: Non-toxic, Other (ETOH on breath) Skin: Warm, Dry, No Rash Head: Normacephalic Eye(s): bilateral: Normal Inspection Oral Mucosa: Moist Neck: Supple Chest: Symmetrical Cardiovascular: Rhythm Regular Respiratory: No Rales, No Rhonchi, No Wheezing Gastrointestinal/Abdominal: Soft, No Tenderness, No Guarding, No Rebound Neurological/Psych: Oriented x3 Gait: Unsteady ED Course And Treatment O2 Sat by Pulse Oximetry: 97 (RA) Pulse Ox Interpretation: Normal Disposition - Disposition Referrals: [facility] [Outside] Disposition Time: 19:18 Condition: STABLE Instructions: Alcohol Intoxication (DC) Forms: [facility] (Romansh) - Clinical Impression Clinical Impression: Alcoholic intoxication, Chronic alcoholism - Scribe Statement The provider has reviewed the documentation as recorded by the Scribe Raffy Contreras All medical record entries made by the Rominaibe were at my direction and personally dictated by me. I have reviewed the chart and agree that the record accurately reflects my personal performance of the history, physical exam, medical decision making, and the department course for this patient. I have also personally directed, reviewed, and agree with the discharge instructions and disposition.
[2017-09-09 21:54] VITALS: BP 138/79; PULSE 79; RESP 18; TEMP 98.2; O2SAT 95
== END 2017-09-09 21:57 | disposition home or self-care (01) ==
LOC: C.ER 17:12
DX: F10.229 Alcohol dependence with intoxication, unspecified (principal); Y90.9 Presence of alcohol in blood, level not specified

== ENCOUNTER 2017-09-10 18:14 | Emergency (ER) | payer MEDICAID ==
[2017-09-10 18:14] VITALS: BMI 24.3
[2017-09-10 20:17] VITALS: RESP 18
--- NOTE | 2017-09-10 20:35 | C.PDOC ---
History Of Present Illness Patient presents to the ER with acute ETOH intoxication. Denies physical complaints at this time. Time Seen by Provider: 09/10/17 20:34 Chief Complaint (Nursing): Substance Abuse History Per: Patient History/Exam Limitations: no limitations Onset/Duration Of Symptoms: Hrs Current Symptoms Are (Timing): Still Present Suicide/Self Injury Attempted (Context): None Modifying Factor(s): Alcohol Severity: None Pain Scale Rating Of: 0 Associated Symptoms: denies: Depression, Suicidal Thoughts, Suicidal Plan Involuntary Hold By: None Recent travel outside of the [place]: No Past Medical History Reviewed: Historical Data, Nursing Documentation, Vital Signs Vital Signs: Last Vital Signs Temp 98.4 F 09/10/17 20:14 Pulse 92 H 09/10/17 20:14 Resp 18 09/10/17 20:14 BP 136/74 09/10/17 20:14 Pulse Ox 98 09/10/17 20:35 - Medical History PMH: Anxiety, Arthritis, Bronchitis, CAD, Depression, 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 screenplay writer, not aware), Fractures (Rt. Fa.), Gastritis, Gall Bladder Disease (s/p cholecystectomy), HTN, Post Traumatic Stress Disorder, Rheumatoid Arthritis, Seizures (etoh induced), Chronic Pain Surgical History: Cholecystectomy - [facility] Procedures ALCOHOL DETOXIFICATION (07/04/15) APPLICATION OF SPLINT (03/20/13) CLOSURE SKIN & SUBCUTANEOUS NEC (08/14/13) DETOXIFICATION SERVICES FOR SUBSTANCE ABUSE TREATMENT (03/22/16) ESOPHAGOGASTRODUODENOSCOPY [EGD] W/CLOSED BIOPSY (02/16/15) OTHER GROUP THERAPY (03/12/13) PHYSICAL THERAPY NEC (07/04/15) TETANUS TOXOID ADMINIST (01/19/14) Family History: States: No Known Family Hx - Social History Hx Tobacco Use: No Hx Alcohol Use: Yes Hx Substance Use: No - Immunization History Hx Tetanus Toxoid Vaccination: No Hx Influenza Vaccination: No Hx Pneumococcal Vaccination: No Review Of Systems Constitutional: Negative for: Fever, Chills Gastrointestinal: Negative for: Nausea, Vomiting, Diarrhea Physical Exam - Physical Exam Appears: Non-toxic, Other (ETOH on breath) Skin: Warm, Dry Head: Normacephalic Oral Mucosa: Moist Chest: Symmetrical Cardiovascular: Rhythm Regular Respiratory: No Rales, No Rhonchi, No Wheezing Gastrointestinal/Abdominal: Soft, No Tenderness Neurological/Psych: Oriented x3 ED Course And Treatment O2 Sat by Pulse Oximetry: 98 (Room air) Pulse Ox Interpretation: Normal Disposition Counseled Patient/Family Regarding: Studies Performed, Diagnosis - Disposition Referrals: [facility] [Outside] Disposition Time: 20:35 Condition: FAIR Instructions: Alcohol Intoxication (DC) Forms: [facility] (South Korean) - Clinical Impression Clinical Impression: Alcohol intoxication, Alcohol abuse, daily use - Scribe Statement The provider has reviewed the documentation as recorded by the Scribe Fabián Ramirez All medical record entries made by the Scribe were at my direction and personally dictated by me. I have reviewed the chart and agree that the record accurately reflects my personal performance of the history, physical exam, medical decision making, and the department course for this patient. I have also personally directed, reviewed, and agree with the discharge instructions and disposition.
[2017-09-11 00:54] VITALS: O2SAT 95
[2017-09-11 03:32] VITALS: BP 122/75; PULSE 90; TEMP 98.2
== END 2017-09-11 03:32 | disposition home or self-care (01) ==
LOC: SUPCPDRO 18:14 → C.ER 18:14
DX: F10.129 Alcohol abuse with intoxication, unspecified (principal); Y90.9 Presence of alcohol in blood, level not specified

== ENCOUNTER 2017-09-11 19:49 | Emergency (ER) | payer MEDICAID ==
[2017-09-11 19:49] VITALS: BMI 24.3
[2017-09-11 20:15] VITALS: RESP 20
--- NOTE | 2017-09-11 21:00 | C.PDOC ---
History Of Present Illness 56 year old male presents to the ER with acute ETOH intoxication, requesting a place to stay the night. Denies physical complaints at this time. Chief Complaint (Nursing): Substance Abuse History Per: Patient History/Exam Limitations: no limitations Onset/Duration Of Symptoms: Hrs Current Symptoms Are (Timing): Still Present Suicide/Self Injury Attempted (Context): None Modifying Factor(s): Alcohol Associated Symptoms: denies: Depression, Suicidal Thoughts, Suicidal Plan Involuntary Hold By: None Recent travel outside of the [place]: No Past Medical History Reviewed: Historical Data, Nursing Documentation, Vital Signs Vital Signs: Last Vital Signs Temp 97.2 F L 09/12/17 04:11 Pulse 69 09/12/17 04:11 Resp 20 09/12/17 04:11 BP 149/79 09/12/17 04:11 Pulse Ox 98 09/12/17 04:53 - Medical History PMH: Anxiety, Arthritis, Bronchitis, CAD, Depression, 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 data analyst report writer, not aware), Fractures (Rt. Fa.), Gastritis, Gall Bladder Disease (s/p cholecystectomy), HTN, Post Traumatic Stress Disorder, Rheumatoid Arthritis, Seizures (etoh induced), Chronic Pain Surgical History: Cholecystectomy - [facility] Procedures ALCOHOL DETOXIFICATION (07/04/15) APPLICATION OF SPLINT (03/20/13) CLOSURE SKIN & SUBCUTANEOUS NEC (08/14/13) DETOXIFICATION SERVICES FOR SUBSTANCE ABUSE TREATMENT (03/22/16) ESOPHAGOGASTRODUODENOSCOPY [EGD] W/CLOSED BIOPSY (02/16/15) OTHER GROUP THERAPY (03/12/13) PHYSICAL THERAPY NEC (07/04/15) TETANUS TOXOID ADMINIST (01/19/14) Family History: States: Unknown Family Hx - Social History Hx Tobacco Use: No Hx Alcohol Use: Yes Hx Substance Use: No - Immunization History Hx Tetanus Toxoid Vaccination: No Hx Influenza Vaccination: No Hx Pneumococcal Vaccination: No Review Of Systems Constitutional: Negative for: Fever, Chills Gastrointestinal: Negative for: Nausea, Vomiting, Diarrhea Physical Exam - Physical Exam Appears: Non-toxic, No Acute Distress, Other (ETOH on breath) Skin: Normal Color, Warm, Dry Head: Atraumatic, Normacephalic Eye(s): bilateral: Normal Inspection, PERRL, EOMI Oral Mucosa: Moist Neck: Normal, Supple Chest: Symmetrical Cardiovascular: Rhythm Regular Respiratory: Normal Breath Sounds, No Rales, No Rhonchi, No Wheezing Gastrointestinal/Abdominal: Soft, No Tenderness Neurological/Psych: Oriented x3, Normal Speech, Normal Cognition ED Course And Treatment O2 Sat by Pulse Oximetry: 98 Disposition Counseled Patient/Family Regarding: Diagnosis - Disposition Referrals: [facility] at [facility] [Outside] Disposition: HOME/ ROUTINE Disposition Time: 04:53 Condition: STABLE Forms: [facility] (Hungarian) - POA Present On Arrival: None - Clinical Impression Clinical Impression: Alcohol abuse with intoxication - Scribe Statement The provider has reviewed the documentation as recorded by the Scribe Fabián Ramirez All medical record entries made by the Scribe were at my direction and personally dictated by me. I have reviewed the chart and agree that the record accurately reflects my personal performance of the history, physical exam, medical decision making, and the department course for this patient. I have also personally directed, reviewed, and agree with the discharge instructions and disposition.
[2017-09-12 04:12] VITALS: BP 149/79; PULSE 69; TEMP 97.2
[2017-09-12 04:54] VITALS: O2SAT 98
== END 2017-09-12 05:02 | disposition home or self-care (01) ==
LOC: C.ER 19:49
DX: F10.129 Alcohol abuse with intoxication, unspecified (principal); Y90.9 Presence of alcohol in blood, level not specified

== ENCOUNTER 2017-09-12 18:14 | Emergency (ER) | payer MEDICAID ==
[2017-09-12 18:15] VITALS: BMI 24.3
--- NOTE | 2017-09-12 19:07 | C.PDOC ---
History Of Present Illness 56 y/o male presents to the ED inebriated . The patient denies vomiting, dizziness, nausea, and headaches. Just wants a place to sleep Time Seen by Provider: 09/12/17 19:06 Chief Complaint (Nursing): Substance Abuse History Per: Patient History/Exam Limitations: intoxication Onset/Duration Of Symptoms: Hrs Current Symptoms Are (Timing): Still Present Suicide/Self Injury Attempted (Context): None Modifying Factor(s): Alcohol Severity: None Associated Symptoms: denies: Anger, Anxiety Involuntary Hold By: None Recent travel outside of the [place]: No Additional History Per: Patient Past Medical History Reviewed: Historical Data, Nursing Documentation, Vital Signs Vital Signs: Last Vital Signs Temp 98 F 09/13/17 01:00 Pulse 87 09/13/17 01:00 Resp 16 09/13/17 01:00 BP 135/79 09/13/17 01:00 Pulse Ox 99 09/13/17 01:00 - Medical History PMH: Anxiety, Arthritis, Bronchitis, CAD, Depression, 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 proposal writer, not aware), Fractures (Rt. Fa.), Gastritis, Gall Bladder Disease (s/p cholecystectomy), HTN, Post Traumatic Stress Disorder, Rheumatoid Arthritis, Seizures (etoh induced), Chronic Pain Denies: Chronic Kidney Disease Surgical History: Cholecystectomy - [facility] Procedures ALCOHOL DETOXIFICATION (07/04/15) APPLICATION OF SPLINT (03/20/13) CLOSURE SKIN & SUBCUTANEOUS NEC (08/14/13) DETOXIFICATION SERVICES FOR SUBSTANCE ABUSE TREATMENT (03/22/16) ESOPHAGOGASTRODUODENOSCOPY [EGD] W/CLOSED BIOPSY (02/16/15) OTHER GROUP THERAPY (03/12/13) PHYSICAL THERAPY NEC (07/04/15) TETANUS TOXOID ADMINIST (01/19/14) Family History: States: No Known Family Hx - Social History Hx Tobacco Use: No Hx Alcohol Use: Yes Hx Substance Use: No - Immunization History Hx Tetanus Toxoid Vaccination: No Hx Influenza Vaccination: No Hx Pneumococcal Vaccination: No Review Of Systems Except As Marked, All Systems Reviewed And Found Negative. Constitutional: Negative for: Fever, Chills Cardiovascular: Negative for: Chest Pain Respiratory: Negative for: Shortness of Breath Gastrointestinal: Negative for: Nausea, Vomiting, Abdominal Pain Neurological: Negative for: Headache, Dizziness Psych: Negative for: Anxiety Physical Exam - Physical Exam Appears: Non-toxic, No Acute Distress Skin: Warm, Dry Head: Normacephalic Oral Mucosa: Moist Neck: Supple Chest: Symmetrical Cardiovascular: Rhythm Regular Respiratory: No Decreased Breath Sounds, No Rales, No Rhonchi, No Wheezing Gastrointestinal/Abdominal: Soft, No Tenderness, No Guarding Extremity: Capillary Refill (2<sec.) Extremity: Bilateral: Normal ROM Neurological/Psych: Oriented x3 Gait: Unsteady ED Course And Treatment O2 Sat by Pulse Oximetry: 96 (RA) Pulse Ox Interpretation: Normal Reevaluation Time: 05:06 Reassessment Condition: Improved Disposition Counseled Patient/Family Regarding: Studies Performed, Diagnosis, Need For Followup - Disposition Referrals: [facility] [Outside] Disposition: HOME/ ROUTINE Disposition Time: 19:07 Condition: FAIR Instructions: Alcohol Intoxication (DC) Forms: [facility] (Korean) - Clinical Impression Clinical Impression: Alcohol intoxication, Alcohol abuse - PA / NIB ASSEMBLER / 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 - Scribe Statement The provider has reviewed the documentation as recorded by the Scribjosé miguel Worthington All medical record entries made by the Rominaibjosé miguel were at my direction and personally dictated by me. I have reviewed the chart and agree that the record accurately reflects my personal performance of the history, physical exam, medical decision making, and the department course for this patient. I have also personally directed, reviewed, and agree with the discharge instructions and disposition.
[2017-09-13 01:00] VITALS: RESP 16
[2017-09-13 05:43] VITALS: BP 134/84; PULSE 84; TEMP 97.9; O2SAT 99
== END 2017-09-13 05:42 | disposition home or self-care (01) ==
LOC: C.ER 18:14
DX: F10.129 Alcohol abuse with intoxication, unspecified (principal)

== ENCOUNTER 2017-09-13 19:00 | Emergency (ER) | payer MEDICAID ==
[2017-09-13 19:00] VITALS: BMI 24.3
[2017-09-13 20:45] VITALS: RESP 18; TEMP 97.2
--- NOTE | 2017-09-13 20:49 | C.PDOC ---
History Of Present Illness 56 y/o male presents to the ED intoxicated. The patient appeared in [facility] ED yesterday for the same behavior.The patient denies dizziness, vomiting, and headaches. Time Seen by Provider: 09/13/17 20:47 Chief Complaint (Nursing): Substance Abuse History Per: Patient History/Exam Limitations: intoxication Onset/Duration Of Symptoms: Hrs Current Symptoms Are (Timing): Still Present Modifying Factor(s): Alcohol Additional History Per: Patient Past Medical History Reviewed: Historical Data, Nursing Documentation, Vital Signs Vital Signs: Last Vital Signs Temp 97.2 F L 09/13/17 20:40 Pulse 97 H 09/13/17 21:05 Resp 18 09/13/17 21:05 BP 120/69 09/13/17 21:05 Pulse Ox 96 09/13/17 21:40 - Medical History PMH: Anxiety, Arthritis, Bronchitis, CAD, Depression, 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 script writer, not aware), Fractures (Rt. Fa.), Gastritis, Gall Bladder Disease (s/p cholecystectomy), HTN, Post Traumatic Stress Disorder, Rheumatoid Arthritis, Seizures (etoh induced), Chronic Pain Denies: Chronic Kidney Disease Surgical History: Cholecystectomy - [facility] Procedures ALCOHOL DETOXIFICATION (07/04/15) APPLICATION OF SPLINT (03/20/13) CLOSURE SKIN & SUBCUTANEOUS NEC (08/14/13) DETOXIFICATION SERVICES FOR SUBSTANCE ABUSE TREATMENT (03/22/16) ESOPHAGOGASTRODUODENOSCOPY [EGD] W/CLOSED BIOPSY (02/16/15) OTHER GROUP THERAPY (03/12/13) PHYSICAL THERAPY NEC (07/04/15) TETANUS TOXOID ADMINIST (01/19/14) Family History: States: No Known Family Hx - Social History Hx Tobacco Use: No Hx Alcohol Use: Yes Hx Substance Use: No - Immunization History Hx Tetanus Toxoid Vaccination: No Hx Influenza Vaccination: No Hx Pneumococcal Vaccination: No Review Of Systems Except As Marked, All Systems Reviewed And Found Negative. Constitutional: Negative for: Fever, Chills Respiratory: Negative for: Cough, Shortness of Breath Gastrointestinal: Negative for: Nausea, Vomiting, Abdominal Pain Neurological: Positive for: Other (intoxicated ) Physical Exam - Physical Exam Appears: Other (disheveled, and alcohol on the breath) Skin: Warm, Dry Head: Normacephalic Eye(s): bilateral: Normal Inspection Oral Mucosa: Moist Neck: Supple Chest: Symmetrical Cardiovascular: Rhythm Regular Respiratory: Normal Breath Sounds, No Rales, No Rhonchi, No Wheezing Gastrointestinal/Abdominal: Soft, No Tenderness, No Guarding, No Rebound Extremity: Capillary Refill (2<sec.) Neurological/Psych: Other (intoxicated and is ambulatory around the ED) Gait: Unsteady ED Course And Treatment O2 Sat by Pulse Oximetry: 96 (RA) Medical Decision Making Medical Decision Making: typical alcohol abuse and malingering stable gait, conversing casually and walking w stable gait into and around ED Disposition Doctor Will See Patient In The: Office Counseled Patient/Family Regarding: Studies Performed, Diagnosis - Disposition Referrals: [facility] [Outside] [facility] [Outside] [facility] [Outside] Disposition: HOME/ ROUTINE Disposition Time: 20:48 Condition: GOOD Additional Instructions: seek nightly correction placement you may NOT stay in the Emergency Department overnight without an acute medical issue. Instructions: Abuse of Alcohol (ED) Forms: [facility] (Polish) - Clinical Impression Clinical Impression: Alcohol abuse, Malingering - Scribe Statement The provider has reviewed the documentation as recorded by the Scribe Denita Worthington All medical record entries made by the Scribe were at my direction and personally dictated by me. I have reviewed the chart and agree that the record accurately reflects my personal performance of the history, physical exam, medical decision making, and the department course for this patient. I have also personally directed, reviewed, and agree with the discharge instructions and disposition.
[2017-09-13 21:06] VITALS: BP 120/69; PULSE 97
[2017-09-13 21:40] VITALS: O2SAT 96
== END 2017-09-13 21:06 | disposition home or self-care (01) ==
LOC: C.ER 19:00
DX: F10.10 Alcohol abuse, uncomplicated (principal); Y90.9 Presence of alcohol in blood, level not specified; Z76.5 Malingerer [conscious simulation]

== ENCOUNTER 2017-09-14 20:39 | Emergency (ER) | payer MEDICAID ==
[2017-09-14 20:40] VITALS: BMI 24.3
--- NOTE | 2017-09-14 22:02 | C.PDOC ---
History Of Present Illness 56 year old male presents to the ER with acute ETOH intoxication. Denies physical complaints at this time. Time Seen by Provider: 09/14/17 20:44 Chief Complaint (Nursing): Substance Abuse History Per: Patient History/Exam Limitations: no limitations Onset/Duration Of Symptoms: Hrs Current Symptoms Are (Timing): Still Present Suicide/Self Injury Attempted (Context): None Modifying Factor(s): Alcohol Associated Symptoms: denies: Depression, Suicidal Thoughts, Suicidal Plan Involuntary Hold By: None Recent travel outside of the [place]: No Past Medical History Reviewed: Historical Data, Nursing Documentation, Vital Signs Vital Signs: Last Vital Signs Temp 98.1 F 09/15/17 05:37 Pulse 81 09/15/17 05:37 Resp 18 09/15/17 05:37 BP 124/73 09/15/17 05:37 Pulse Ox 96 09/15/17 05:37 - Medical History PMH: Anxiety, Arthritis, Bronchitis, CAD, Depression, 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 content writer, not aware), Fractures (Rt. Fa.), Gastritis, Gall Bladder Disease (s/p cholecystectomy), HTN, Post Traumatic Stress Disorder, Rheumatoid Arthritis, Seizures (etoh induced), Chronic Pain Surgical History: Cholecystectomy - [facility] Procedures ALCOHOL DETOXIFICATION (07/04/15) APPLICATION OF SPLINT (03/20/13) CLOSURE SKIN & SUBCUTANEOUS NEC (08/14/13) DETOXIFICATION SERVICES FOR SUBSTANCE ABUSE TREATMENT (03/22/16) ESOPHAGOGASTRODUODENOSCOPY [EGD] W/CLOSED BIOPSY (02/16/15) OTHER GROUP THERAPY (03/12/13) PHYSICAL THERAPY NEC (07/04/15) TETANUS TOXOID ADMINIST (01/19/14) Family History: States: Unknown Family Hx - Social History Hx Tobacco Use: No Hx Alcohol Use: Yes Hx Substance Use: No - Immunization History Hx Tetanus Toxoid Vaccination: No Hx Influenza Vaccination: No Hx Pneumococcal Vaccination: No Review Of Systems Constitutional: Negative for: Fever, Chills Gastrointestinal: Negative for: Nausea, Vomiting, Diarrhea Physical Exam - Physical Exam Appears: Non-toxic, No Acute Distress, Other (ETOH on breath, no injuries noted) Skin: Normal Color, Warm, Dry Head: Atraumatic, Normacephalic Eye(s): bilateral: Normal Inspection Oral Mucosa: Moist Chest: Symmetrical, No Tenderness Cardiovascular: Rhythm Regular Respiratory: Normal Breath Sounds, No Rales, No Rhonchi, No Wheezing Gastrointestinal/Abdominal: Soft, No Tenderness Neurological/Psych: Oriented x3, Normal Speech, Other (No focal deficits) ED Course And Treatment O2 Sat by Pulse Oximetry: 97 (Room air) Pulse Ox Interpretation: Normal Disposition - Disposition Disposition: HOME/ ROUTINE Disposition Time: 11:29 Condition: STABLE Forms: [facility] (Lithuanian) - Clinical Impression Clinical Impression: Homelessness - Scribe Statement The provider has reviewed the documentation as recorded by the Scribjosé miguel Ramirez All medical record entries made by the Rominaibjosé miguel were at my direction and personally dictated by me. I have reviewed the chart and agree that the record accurately reflects my personal performance of the history, physical exam, medical decision making, and the department course for this patient. I have also personally directed, reviewed, and agree with the discharge instructions and disposition.
[2017-09-15 05:38] VITALS: BP 124/73; PULSE 81; RESP 18; TEMP 98.1
[2017-09-16 11:29] VITALS: O2SAT 97
== END 2017-09-15 05:38 | disposition home or self-care (01) ==
LOC: C.ER 20:39
DX: Z59.0 Homelessness (principal)

== ENCOUNTER 2017-09-15 19:39 | Emergency (ER) | payer MEDICAID ==
[2017-09-15 19:39] VITALS: BMI 24.3
[2017-09-15 19:59] VITALS: BP 113/65; PULSE 102; RESP 16; TEMP 98.2; O2SAT 97
--- NOTE | 2017-09-15 20:44 | C.PDOC ---
History Of Present Illness 56 year old male presents to the ER intoxicated and requesting a place to spend the night. Denies physical complaints at this time. Chief Complaint (Nursing): Substance Abuse History Per: Patient History/Exam Limitations: no limitations Onset/Duration Of Symptoms: Hrs Current Symptoms Are (Timing): Still Present Suicide/Self Injury Attempted (Context): None Modifying Factor(s): Alcohol Associated Symptoms: denies: Depression, Suicidal Thoughts, Suicidal Plan Involuntary Hold By: None Recent travel outside of the [place]: No Past Medical History Reviewed: Historical Data, Nursing Documentation, Vital Signs Vital Signs: Last Vital Signs Temp 98.2 F 09/15/17 19:57 Pulse 102 H 09/15/17 19:57 Resp 16 09/15/17 19:57 BP 113/65 09/15/17 19:57 Pulse Ox 97 09/15/17 20:44 - Medical History PMH: Anxiety, Arthritis, Bronchitis, CAD, Depression, 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 sba underwriter, not aware), Fractures (Rt. Fa.), Gastritis, Gall Bladder Disease (s/p cholecystectomy), HTN, Post Traumatic Stress Disorder, Rheumatoid Arthritis, Seizures (etoh induced), Chronic Pain Surgical History: Cholecystectomy - [facility] Procedures ALCOHOL DETOXIFICATION (07/04/15) APPLICATION OF SPLINT (03/20/13) CLOSURE SKIN & SUBCUTANEOUS NEC (08/14/13) DETOXIFICATION SERVICES FOR SUBSTANCE ABUSE TREATMENT (03/22/16) ESOPHAGOGASTRODUODENOSCOPY [EGD] W/CLOSED BIOPSY (02/16/15) OTHER GROUP THERAPY (03/12/13) PHYSICAL THERAPY NEC (07/04/15) TETANUS TOXOID ADMINIST (01/19/14) Family History: States: Unknown Family Hx - Social History Hx Tobacco Use: No Hx Alcohol Use: Yes Hx Substance Use: No - Immunization History Hx Tetanus Toxoid Vaccination: No Hx Influenza Vaccination: No Hx Pneumococcal Vaccination: No Review Of Systems Constitutional: Negative for: Fever, Chills Gastrointestinal: Negative for: Nausea, Vomiting, Diarrhea Physical Exam - Physical Exam Appears: Non-toxic, No Acute Distress, Other (ETOH on breath) Skin: Normal Color, Warm, Dry Head: Atraumatic, Normacephalic Eye(s): bilateral: Normal Inspection Oral Mucosa: Moist Chest: Symmetrical Cardiovascular: Rhythm Regular Respiratory: Normal Breath Sounds, No Rales, No Rhonchi, No Wheezing Gastrointestinal/Abdominal: Soft, No Tenderness Neurological/Psych: Oriented x3, Normal Speech, Other (No focal deficits) ED Course And Treatment O2 Sat by Pulse Oximetry: 97 Disposition - Disposition Referrals: [facility] [Outside] Disposition: HOME/ ROUTINE Disposition Time: 21:02 Condition: STABLE Instructions: Abuse of Alcohol (ED) Forms: [facility] (Maori) - POA Present On Arrival: None - Clinical Impression Clinical Impression: Alcoholism /alcohol abuse - Scribe Statement The provider has reviewed the documentation as recorded by the Scribe Fabián Ramirez All medical record entries made by the Scribe were at my direction and personally dictated by me. I have reviewed the chart and agree that the record accurately reflects my personal performance of the history, physical exam, medical decision making, and the department course for this patient. I have also personally directed, reviewed, and agree with the discharge instructions and disposition.
== END 2017-09-15 21:11 | disposition home or self-care (01) ==
LOC: C.ER 19:39
DX: F10.20 Alcohol dependence, uncomplicated (principal); Y90.9 Presence of alcohol in blood, level not specified

== ENCOUNTER 2017-09-16 04:15 | Emergency (ER) | payer MEDICAID ==
[2017-09-16 04:15] VITALS: BMI 24.3
--- NOTE | 2017-09-16 04:38 | C.PDOC ---
History Of Present Illness <StuartValeriano R - Last Filed: 09/16/17 05:06> <Nara Perez A - Last Filed: 09/16/17 09:14> 56 year old male presents to the ER with acute ETOH intoxication. Patient was seen earlier and left; he comes back now intoxicated again. Denies new complaints. (Valeriano Stuart) History Per: Patient History/Exam Limitations: no limitations Onset/Duration Of Symptoms: Hrs Current Symptoms Are (Timing): Still Present Suicide/Self Injury Attempted (Context): None Modifying Factor(s): Alcohol Associated Symptoms: denies: Depression, Suicidal Thoughts, Suicidal Plan Involuntary Hold By: None Recent travel outside of the [place]: No <NarcisoValeriano Bautista - Last Filed: 09/16/17 05:06> <Nara Perez A - Last Filed: 09/16/17 09:14> Chief Complaint (Nursing): Substance Abuse Past Medical History Reviewed: Historical Data, Nursing Documentation, Vital Signs - Medical History PMH: Anxiety, Arthritis, Bronchitis, CAD, Depression, 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 lead technical writer, not aware), Fractures (Rt. Fa.), Gastritis, Gall Bladder Disease (s/p cholecystectomy), HTN, Post Traumatic Stress Disorder, Rheumatoid Arthritis, Seizures (etoh induced), Chronic Pain Surgical History: Cholecystectomy Family History: States: Unknown Family Hx - Social History Hx Tobacco Use: No Hx Alcohol Use: Yes Hx Substance Use: No - Immunization History Hx Tetanus Toxoid Vaccination: No Hx Influenza Vaccination: No Hx Pneumococcal Vaccination: No <NarcisoValeriano Bautista - Last Filed: 09/16/17 05:06> Vital Signs: Last Vital Signs Temp 98.0 F 09/16/17 08:55 Pulse 92 H 09/16/17 08:55 Resp 18 09/16/17 08:55 BP 129/79 09/16/17 08:55 Pulse Ox 98 09/16/17 08:55 - [facility] Procedures ALCOHOL DETOXIFICATION (07/04/15) APPLICATION OF SPLINT (03/20/13) CLOSURE SKIN & SUBCUTANEOUS NEC (08/14/13) DETOXIFICATION SERVICES FOR SUBSTANCE ABUSE TREATMENT (03/22/16) ESOPHAGOGASTRODUODENOSCOPY [EGD] W/CLOSED BIOPSY (02/16/15) OTHER GROUP THERAPY (03/12/13) PHYSICAL THERAPY NEC (07/04/15) TETANUS TOXOID ADMINIST (01/19/14) Review Of Systems Constitutional: Negative for: Fever, Chills Gastrointestinal: Negative for: Nausea, Vomiting, Diarrhea <Valeriano Stuart - Last Filed: 09/16/17 05:06> Physical Exam - Physical Exam Appears: Non-toxic, No Acute Distress, Other (ETOH on breath) Skin: Normal Color, Warm, Dry Head: Atraumatic, Normacephalic Oral Mucosa: Moist Chest: Symmetrical Cardiovascular: Rhythm Regular Respiratory: Normal Breath Sounds, No Rales, No Rhonchi, No Wheezing Gastrointestinal/Abdominal: Soft, No Tenderness Neurological/Psych: Oriented x3, Normal Speech, Other (No focal deficits) <Valeriano Stuart - Last Filed: 09/16/17 05:06> ED Course And Treatment O2 Sat by Pulse Oximetry: 96 <Valeriano Stuart - Last Filed: 09/16/17 05:06> Disposition Counseled Patient/Family Regarding: Diagnosis - POA Present On Arrival: None <Valeriano Stuart - Last Filed: 09/16/17 05:06> - Disposition Disposition Time: 09:15 <Nara Perez - Last Filed: 09/16/17 09:14> - Disposition Referrals: [facility] [Outside] Disposition: HOME/ ROUTINE Condition: STABLE Instructions: Alcohol Intoxication (GEN) Forms: [facility] (Ugandan) - Clinical Impression Clinical Impression: Alcohol intoxication - Scribe Statement The provider has reviewed the documentation as recorded by the Scribe <Valeriano Stuart - Last Filed: 09/16/17 05:06> <Nara Perez - Last Filed: 09/16/17 09:14> - Scribe Statement Fabián Ramirez All medical record entries made by the Scribe were at my direction and personally dictated by me. I have reviewed the chart and agree that the record accurately reflects my personal performance of the history, physical exam, medical decision making, and the department course for this patient. I have also personally directed, reviewed, and agree with the discharge instructions and disposition. (Valeriano Stuart)
[2017-09-16 08:56] VITALS: BP 129/79; PULSE 92; RESP 18; TEMP 98; O2SAT 98
== END 2017-09-16 09:00 | disposition home or self-care (01) ==
LOC: C.ER 04:15
DX: F10.129 Alcohol abuse with intoxication, unspecified (principal); Y90.9 Presence of alcohol in blood, level not specified

== ENCOUNTER 2017-09-16 18:01 | Emergency (ER) | payer MEDICAID ==
[2017-09-16 18:01] VITALS: BMI 24.3
--- NOTE | 2017-09-16 18:22 | C.PDOC ---
History Of Present Illness 56 year old male with prior Hx of ETOH abuse presents to the ED looking for a place to sleep. 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 Otherwise, Patient denies any associated complaints. Time Seen by Provider: 09/16/17 18:20 History Per: Patient History/Exam Limitations: intoxication Onset/Duration Of Symptoms: Hrs Current Symptoms Are (Timing): Still Present Suicide/Self Injury Attempted (Context): None Modifying Factor(s): Alcohol Associated Symptoms: denies: Suicidal Thoughts, Suicidal Plan Involuntary Hold By: None Recent travel outside of the [place]: No Additional History Per: Patient Past Medical History Reviewed: Historical Data, Nursing Documentation, Vital Signs Vital Signs: Last Vital Signs Temp 98.2 F 09/16/17 18:54 Pulse 100 H 09/16/17 18:54 Resp 20 09/16/17 18:54 BP 114/75 09/16/17 18:54 Pulse Ox 99 09/16/17 18:54 - Medical History PMH: Anxiety, Arthritis, Bronchitis, CAD, Depression, 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, not aware), Fractures (Rt. Fa.), Gastritis, Gall Bladder Disease (s/p cholecystectomy), HTN, Post Traumatic Stress Disorder, Rheumatoid Arthritis, Seizures (etoh induced), Chronic Pain Denies: Chronic Kidney Disease Surgical History: Cholecystectomy - [facility] Procedures ALCOHOL DETOXIFICATION (07/04/15) APPLICATION OF SPLINT (03/20/13) CLOSURE SKIN & SUBCUTANEOUS NEC (08/14/13) DETOXIFICATION SERVICES FOR SUBSTANCE ABUSE TREATMENT (03/22/16) ESOPHAGOGASTRODUODENOSCOPY [EGD] W/CLOSED BIOPSY (02/16/15) OTHER GROUP THERAPY (03/12/13) PHYSICAL THERAPY NEC (07/04/15) TETANUS TOXOID ADMINIST (01/19/14) Family History: States: Unknown Family Hx - Social History Hx Tobacco Use: No Hx Alcohol Use: Yes Hx Substance Use: No - Immunization History Hx Tetanus Toxoid Vaccination: No Hx Influenza Vaccination: No Hx Pneumococcal Vaccination: No Review Of Systems Constitutional: Negative for: Fever, Chills Cardiovascular: Negative for: Chest Pain, Palpitations Respiratory: Negative for: Cough, Shortness of Breath Gastrointestinal: Negative for: Nausea, Vomiting, Abdominal Pain Skin: Negative for: Rash Neurological: Negative for: Weakness, Numbness, Headache Psych: Negative for: Suicidal ideation Physical Exam - Physical Exam Appears: Other (Disheveled, foul smelling, intoxicated) Skin: Normal Color, Warm, Dry Head: Atraumatic, Normacephalic Nose: No Discharge, No Deformity Oral Mucosa: Moist, No Drooling Throat: Normal, No Erythema, No Exudate Neck: Normal ROM, Supple Cardiovascular: Rhythm Regular, No Murmur Respiratory: Normal Breath Sounds, No Rales, No Rhonchi, No Wheezing Gastrointestinal/Abdominal: Soft, No Tenderness, No Guarding, No Rebound Back: No CVA Tenderness Extremity: Normal ROM, No Deformity, No Swelling Neurological/Psych: Oriented x3, Normal Speech, Normal Cognition Gait: Steady Medical Decision Making Medical Decision Making: malingering, stable gait, foul smelling Disposition Doctor Will See Patient In The: Office Counseled Patient/Family Regarding: Studies Performed, Diagnosis - Disposition Referrals: Alcoholics Anonymous [Outside] [facility] [Outside] [facility] [Outside] Disposition: HOME/ ROUTINE Disposition Time: 18:21 Condition: GOOD Additional Instructions: seek [place] [facility] Seek AA Instructions: Abuse of Alcohol (ED) - Clinical Impression Clinical Impression: Alcohol abuse, Malingering - Scribe Statement The provider has reviewed the documentation as recorded by the Scribe Woo Brown All medical record entries made by the Scribe were at my direction and personally dictated by me. I have reviewed the chart and agree that the record accurately reflects my personal performance of the history, physical exam, medical decision making, and the department course for this patient. I have also personally directed, reviewed, and agree with the discharge instructions and disposition.
[2017-09-16 18:55] VITALS: TEMP 98.2; O2SAT 99
[2017-09-16 21:27] VITALS: BP 138/81; PULSE 97; RESP 18
== END 2017-09-16 21:28 | disposition home or self-care (01) ==
LOC: C.ER 18:01
DX: F10.10 Alcohol abuse, uncomplicated (principal); Y90.9 Presence of alcohol in blood, level not specified; Z76.5 Malingerer [conscious simulation]

== ENCOUNTER 2017-09-17 20:06 | Emergency (ER) | payer MEDICAID ==
[2017-09-17 20:06] VITALS: BMI 24.3
--- NOTE | 2017-09-18 00:13 | C.PDOC ---
History Of Present Illness 57 year old male presents to the ER with acute ETOH intoxication, requesting a place to spend the night. Denies complaints at this time. Chief Complaint (Nursing): Substance Abuse History Per: Patient History/Exam Limitations: no limitations Onset/Duration Of Symptoms: Hrs Current Symptoms Are (Timing): Still Present Suicide/Self Injury Attempted (Context): None Modifying Factor(s): Alcohol Associated Symptoms: denies: Depression, Suicidal Thoughts, Suicidal Plan Involuntary Hold By: None Recent travel outside of the [place]: No Past Medical History Reviewed: Historical Data, Nursing Documentation, Vital Signs Vital Signs: Last Vital Signs Temp 98.0 F 09/18/17 00:16 Pulse 104 H 09/18/17 00:16 Resp 20 09/18/17 00:16 BP 110/66 09/18/17 00:16 Pulse Ox 99 09/18/17 00:16 - Medical History PMH: Anxiety, Arthritis, Bronchitis, CAD, Depression, 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 health underwriter, not aware), Fractures (Rt. Fa.), Gastritis, Gall Bladder Disease (s/p cholecystectomy), HTN, Post Traumatic Stress Disorder, Rheumatoid Arthritis, Seizures (etoh induced), Chronic Pain Surgical History: Cholecystectomy - [facility] Procedures ALCOHOL DETOXIFICATION (07/04/15) APPLICATION OF SPLINT (03/20/13) CLOSURE SKIN & SUBCUTANEOUS NEC (08/14/13) DETOXIFICATION SERVICES FOR SUBSTANCE ABUSE TREATMENT (03/22/16) ESOPHAGOGASTRODUODENOSCOPY [EGD] W/CLOSED BIOPSY (02/16/15) OTHER GROUP THERAPY (03/12/13) PHYSICAL THERAPY NEC (07/04/15) TETANUS TOXOID ADMINIST (01/19/14) Family History: States: Unknown Family Hx - Social History Hx Tobacco Use: No Hx Alcohol Use: Yes Hx Substance Use: No - Immunization History Hx Tetanus Toxoid Vaccination: No Hx Influenza Vaccination: No Hx Pneumococcal Vaccination: No Review Of Systems Constitutional: Negative for: Fever, Chills Gastrointestinal: Negative for: Nausea, Vomiting, Diarrhea Physical Exam - Physical Exam Appears: Non-toxic, No Acute Distress, Other (ETOH on breath, no injury noted) Skin: Normal Color, Warm, Dry Head: Atraumatic, Normacephalic Eye(s): bilateral: Normal Inspection Oral Mucosa: Moist Neck: Normal, Supple Chest: Symmetrical, No Tenderness Cardiovascular: Rhythm Regular Respiratory: Normal Breath Sounds, No Rales, No Rhonchi, No Wheezing Gastrointestinal/Abdominal: Soft, No Tenderness Extremity: Normal ROM (x4) Neurological/Psych: Oriented x3, Normal Speech, Other (No focal deficits) ED Course And Treatment O2 Sat by Pulse Oximetry: 96 (Room air) Pulse Ox Interpretation: Normal Disposition Counseled Patient/Family Regarding: Diagnosis - Disposition Referrals: [facility] at [facility] [Outside] Disposition: HOME/ ROUTINE Disposition Time: 03:12 Condition: STABLE Instructions: Abuse of Alcohol (ED) Forms: [employer] (Japanese) - POA Present On Arrival: None - Clinical Impression Clinical Impression: Alcoholism /alcohol abuse - Scribe Statement The provider has reviewed the documentation as recorded by the Scribe Fabián Ramirez All medical record entries made by the Scribe were at my direction and personally dictated by me. I have reviewed the chart and agree that the record accurately reflects my personal performance of the history, physical exam, medical decision making, and the department course for this patient. I have also personally directed, reviewed, and agree with the discharge instructions and disposition.
[2017-09-18 00:17] VITALS: BP 110/66; PULSE 104; RESP 20; TEMP 98
[2017-09-18 03:13] VITALS: O2SAT 96
== END 2017-09-18 03:00 | disposition home or self-care (01) ==
LOC: C.ER 20:06
DX: F10.229 Alcohol dependence with intoxication, unspecified (principal); Y90.9 Presence of alcohol in blood, level not specified

== ENCOUNTER 2017-09-18 18:14 | Emergency (ER) | payer MEDICAID ==
[2017-09-18 18:15] VITALS: BMI 24.3
--- NOTE | 2017-09-18 21:47 | C.PDOC ---
History Of Present Illness Patient is a 57 y/o male who presents to the ED with a complaint of acute EtOH and requesting a place to stay for the night. Patient has an extensive history of similar ED visits. Denies any physical complaints at this time. Time Seen by Provider: 09/18/17 21:46 Chief Complaint (Nursing): Substance Abuse History Per: Patient History/Exam Limitations: no limitations Modifying Factor(s): Alcohol Recent travel outside of the [place]: No Past Medical History Reviewed: Historical Data, Nursing Documentation, Vital Signs Vital Signs: Last Vital Signs Temp 97.8 F 09/18/17 21:42 Pulse 72 09/19/17 02:30 Resp 20 09/19/17 02:30 BP 149/91 H 09/19/17 02:30 Pulse Ox 98 09/19/17 02:30 - Medical History PMH: Anxiety, Arthritis, Bronchitis, CAD, Depression, 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 auto service writer, not aware), Fractures (Rt. Fa.), Gastritis, Gall Bladder Disease (s/p cholecystectomy), HTN, Post Traumatic Stress Disorder, Rheumatoid Arthritis, Seizures (etoh induced), Chronic Pain Denies: Chronic Kidney Disease Surgical History: Cholecystectomy - [facility] Procedures ALCOHOL DETOXIFICATION (07/04/15) APPLICATION OF SPLINT (03/20/13) CLOSURE SKIN & SUBCUTANEOUS NEC (08/14/13) DETOXIFICATION SERVICES FOR SUBSTANCE ABUSE TREATMENT (03/22/16) ESOPHAGOGASTRODUODENOSCOPY [EGD] W/CLOSED BIOPSY (02/16/15) OTHER GROUP THERAPY (03/12/13) PHYSICAL THERAPY NEC (07/04/15) TETANUS TOXOID ADMINIST (01/19/14) Family History: States: Unknown Family Hx - Social History Hx Tobacco Use: No Hx Alcohol Use: Yes Hx Substance Use: No - Immunization History Hx Tetanus Toxoid Vaccination: No Hx Influenza Vaccination: No Hx Pneumococcal Vaccination: No Review Of Systems Constitutional: Negative for: Fever, Chills Gastrointestinal: Negative for: Abdominal Pain Physical Exam - Physical Exam Appears: Well, No Acute Distress, Other (EtOH intoxicated) Skin: Normal Color Head: Normacephalic Oral Mucosa: Moist Respiratory: Normal Breath Sounds, No Rhonchi, No Stridor, No Wheezing Gastrointestinal/Abdominal: Soft, No Tenderness Neurological/Psych: Other ED Course And Treatment O2 Sat by Pulse Oximetry: 98 (room air) Pulse Ox Interpretation: Normal Reevaluation Time: 04:49 Reassessment Condition: Improved Disposition Counseled Patient/Family Regarding: Studies Performed, Diagnosis, Need For Followup - Disposition Referrals: [facility] [Outside] Disposition: HOME/ ROUTINE Disposition Time: 21:46 Condition: FAIR Instructions: Alcohol Intoxication (DC) Forms: [facility] (Norwegian) - Clinical Impression Clinical Impression: Alcohol abuse, Alcohol intoxication - Scribe Statement The provider has reviewed the documentation as recorded by the Scribe Yamilet Madrigal All medical record entries made by the Scribe were at my direction and personally dictated by me. I have reviewed the chart and agree that the record accurately reflects my personal performance of the history, physical exam, medical decision making, and the department course for this patient. I have also personally directed, reviewed, and agree with the discharge instructions and disposition.
[2017-09-19 04:42] VITALS: RESP 20
[2017-09-19 04:55] VITALS: BP 144/69; PULSE 77; TEMP 97.1; O2SAT 97
== END 2017-09-19 04:55 | disposition home or self-care (01) ==
LOC: C.ER 18:14
DX: F10.129 Alcohol abuse with intoxication, unspecified (principal); Y90.9 Presence of alcohol in blood, level not specified

== ENCOUNTER 2017-09-19 21:06 | Emergency (ER) | payer MEDICAID ==
[2017-09-19 21:06] VITALS: BMI 24.3
--- NOTE | 2017-09-19 21:37 | C.PDOC ---
History Of Present Illness 57 year old male presents to the ED with acute alcohol intoxication for an unknown duration. Patient is familiar to this ED and has had multiple visits concerning alcohol intoxication. He admits to drinking earlier today and has no other complaints at this time. Chief Complaint (Nursing): Substance Abuse History Per: Patient History/Exam Limitations: intoxication Onset/Duration Of Symptoms: Unknown Current Symptoms Are (Timing): Still Present Suicide/Self Injury Attempted (Context): None Modifying Factor(s): Alcohol Associated Symptoms: denies: Suicidal Thoughts, Suicidal Plan Involuntary Hold By: None Recent travel outside of the [place]: No Additional History Per: Patient Past Medical History Reviewed: Historical Data, Nursing Documentation, Vital Signs Vital Signs: Last Vital Signs Temp 98 F 09/20/17 05:08 Pulse 86 09/20/17 05:08 Resp 18 09/20/17 05:08 BP 141/82 09/20/17 05:08 Pulse Ox 96 09/20/17 05:08 - Medical History PMH: Anxiety, Arthritis, Bronchitis, CAD, Depression, 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 software writer, not aware), Fractures (Rt. Fa.), Gastritis, Gall Bladder Disease (s/p cholecystectomy), HTN, Post Traumatic Stress Disorder, Rheumatoid Arthritis, Seizures (etoh induced), Chronic Pain Denies: Chronic Kidney Disease Surgical History: Cholecystectomy - [facility] Procedures ALCOHOL DETOXIFICATION (07/04/15) APPLICATION OF SPLINT (03/20/13) CLOSURE SKIN & SUBCUTANEOUS NEC (08/14/13) DETOXIFICATION SERVICES FOR SUBSTANCE ABUSE TREATMENT (03/22/16) ESOPHAGOGASTRODUODENOSCOPY [EGD] W/CLOSED BIOPSY (02/16/15) OTHER GROUP THERAPY (03/12/13) PHYSICAL THERAPY NEC (07/04/15) TETANUS TOXOID ADMINIST (01/19/14) Family History: States: Unknown Family Hx - Social History Hx Tobacco Use: No Hx Alcohol Use: Yes Hx Substance Use: No - Immunization History Hx Tetanus Toxoid Vaccination: No Hx Influenza Vaccination: No Hx Pneumococcal Vaccination: No Review Of Systems Psych: Positive for: Other (EtOH intoxication ). Negative for: Suicidal ideation Physical Exam - Physical Exam Appears: Non-toxic, No Acute Distress, Other (visibly intoxicated ) Skin: Normal Color, Warm, Dry Head: Atraumatic, Normacephalic Eye(s): bilateral: Normal Inspection Oral Mucosa: Moist, Other (alcohol on breath ) Neck: Supple Chest: Symmetrical, No Deformity, No Tenderness Cardiovascular: Rhythm Regular, No Murmur Respiratory: Normal Breath Sounds, No Rales, No Rhonchi, No Wheezing Extremity: Normal ROM, Capillary Refill (less than 2 seconds ) Neurological/Psych: Other (arousable to touch and verbal stimuli ) Gait: Unsteady ED Course And Treatment O2 Sat by Pulse Oximetry: 96 (on RA) Pulse Ox Interpretation: Normal Disposition - Disposition Referrals: [facility] [Outside] Disposition: HOME/ ROUTINE Disposition Time: 05:25 Condition: STABLE Forms: [employer] (Sami) - POA Present On Arrival: None - Clinical Impression Clinical Impression: Alcoholism /alcohol abuse - Scribe Statement The provider has reviewed the documentation as recorded by the Scribe (Kari Fajardo) Provider Attestation: All medical record entries made by the Scribe were at my direction and personally dictated by me. I have reviewed the chart and agree that the record accurately reflects my personal performance of the history, physical exam, medical decision making, and the department course for this patient. I have also personally directed, reviewed, and agree with the discharge instructions and disposition.
[2017-09-20 05:52] VITALS: BP 141/82; PULSE 86; RESP 18; TEMP 98; O2SAT 96
== END 2017-09-20 05:42 | disposition home or self-care (01) ==
LOC: C.ER 21:06
DX: F10.229 Alcohol dependence with intoxication, unspecified (principal); Y90.9 Presence of alcohol in blood, level not specified

== ENCOUNTER 2017-09-20 18:31 | Emergency (ER) | payer SELFPAY ==
[2017-09-20 18:31] VITALS: BMI 24.3
--- NOTE | 2017-09-20 21:42 | C.PDOC ---
History Of Present Illness 57 year old male presents to the ER with acute ETOH intoxication, asking for bed to sleep in. He admits to drinking alcohol, and denies physical complaints. Time Seen by Provider: 09/20/17 19:09 Chief Complaint (Nursing): Substance Abuse History Per: Patient History/Exam Limitations: intoxication Onset/Duration Of Symptoms: Unknown Current Symptoms Are (Timing): Still Present Suicide/Self Injury Attempted (Context): None Modifying Factor(s): Alcohol Severity: Moderate Associated Symptoms: denies: Depression, Suicidal Thoughts, Suicidal Plan Involuntary Hold By: Emergency Physician Past Medical History Reviewed: Historical Data, Nursing Documentation, Vital Signs Vital Signs: Last Vital Signs Temp 98.4 F 09/21/17 00:10 Pulse 101 H 09/21/17 00:10 Resp 17 09/21/17 00:10 BP 144/92 H 09/21/17 00:10 Pulse Ox 99 09/21/17 00:14 - Medical History PMH: Anxiety, Arthritis, Bronchitis, CAD, Depression, Diabetes (Pt. did not disclose to medical technical writer, not aware), Fractures (Rt. Fa.), Gastritis, Gall Bladder Disease (s/p cholecystectomy), HTN, Post Traumatic Stress Disorder, Rheumatoid Arthritis, Seizures (etoh induced), Chronic Pain Surgical History: Cholecystectomy - [facility] Procedures ALCOHOL DETOXIFICATION (07/04/15) APPLICATION OF SPLINT (03/20/13) CLOSURE SKIN & SUBCUTANEOUS NEC (08/14/13) DETOXIFICATION SERVICES FOR SUBSTANCE ABUSE TREATMENT (03/22/16) ESOPHAGOGASTRODUODENOSCOPY [EGD] W/CLOSED BIOPSY (02/16/15) OTHER GROUP THERAPY (03/12/13) PHYSICAL THERAPY NEC (07/04/15) TETANUS TOXOID ADMINIST (01/19/14) Family History: States: No Known Family Hx - Social History Hx Tobacco Use: No Hx Alcohol Use: Yes Hx Substance Use: No - Immunization History Hx Tetanus Toxoid Vaccination: No Hx Influenza Vaccination: No Hx Pneumococcal Vaccination: No Review Of Systems Except As Marked, All Systems Reviewed And Found Negative. Constitutional: Positive for: Other (Intoxicated) Cardiovascular: Negative for: Chest Pain Respiratory: Negative for: Cough, Shortness of Breath Gastrointestinal: Negative for: Nausea, Vomiting, Abdominal Pain, Diarrhea Physical Exam - Physical Exam Appears: Well, Non-toxic, No Acute Distress, Unkempt, Other (ETOH on breath) Skin: Normal Color, Warm, Dry Head: Atraumatic, Normacephalic Eye(s): bilateral: Normal Inspection Oral Mucosa: Moist Cardiovascular: Rhythm Regular Respiratory: Normal Breath Sounds, No Rales, No Rhonchi, No Wheezing Gastrointestinal/Abdominal: Normal Exam, Bowel Sounds, Soft, No Tenderness Extremity: Bilateral: Atraumatic Neurological/Psych: Other (awake, alert, intoxicated ) ED Course And Treatment O2 Sat by Pulse Oximetry: 99 (room air) Pulse Ox Interpretation: Normal Progress Note: Accucheck ordered and reviewed. Patient pending sobriety. 9: 45pm- Patient sleeping on stretcher, arousable to verbal stimuli. Pending sobriety. 12:45am- Patient arousable to verbal stimuli. He is resting on stretcher, in no acute distress. Pending sobriety. Disposition - Disposition Disposition Time: 01:00 Condition: STABLE Forms: [facility] (Malagasy) - Clinical Impression Clinical Impression: Acute alcohol intoxication - Scribe Statement The provider has reviewed the documentation as recorded by the Scribe Fabián Ramirez All medical record entries made by the Scribe were at my direction and personally dictated by me. I have reviewed the chart and agree that the record accurately reflects my personal performance of the history, physical exam, medical decision making, and the department course for this patient. I have also personally directed, reviewed, and agree with the discharge instructions and disposition. Physician Patient Turnover Patient Signed Over To: Billie Atkins Handoff Comments: pending sobriety
[2017-09-21 03:35] VITALS: BP 141/81; PULSE 91; RESP 20; TEMP 97.8; O2SAT 96
== END 2017-09-21 04:58 | disposition home or self-care (01) ==
LOC: C.ER 18:31
DX: F10.129 Alcohol abuse with intoxication, unspecified (principal); E11.9 Type 2 diabetes mellitus without complications; I25.10 Atherosclerotic heart disease of native coronary artery without angina pectoris; I10 Essential (primary) hypertension

== ENCOUNTER 2017-09-21 17:41 | Emergency (ER) | payer SELFPAY ==
[2017-09-21 18:30] VITALS: RESP 18; BMI 29.7
--- NOTE | 2017-09-21 19:18 | C.PDOC ---
History Of Present Illness 57 year old male with Hx of ETOH abuse presents to the ED intoxicated. Patient ambulated into the ED with unstable gait, no signs of external trauma, answering questions ,calm and cooperative. Patient denies any other physical complaints at the time. Chief Complaint (Nursing): Substance Abuse History Per: Patient History/Exam Limitations: intoxication Onset/Duration Of Symptoms: Hrs Current Symptoms Are (Timing): Still Present Suicide/Self Injury Attempted (Context): None Modifying Factor(s): Alcohol Associated Symptoms: denies: Depression, Suicidal Thoughts, Suicidal Plan Recent travel outside of the [place]: No Additional History Per: Patient Past Medical History Reviewed: Historical Data, Nursing Documentation, Vital Signs Vital Signs: Last Vital Signs Temp 98.6 F 09/21/17 23:39 Pulse 94 H 09/21/17 23:39 Resp 18 09/21/17 23:39 BP 130/80 09/21/17 23:39 Pulse Ox 95 09/21/17 23:39 - Medical History PMH: Anxiety, Arthritis, Bronchitis, CAD, Depression, Diabetes (Pt. did not disclose to business writer, not aware), Fractures (Rt. Fa.), Gastritis, Gall Bladder Disease (s/p cholecystectomy), HTN, Post Traumatic Stress Disorder, Rheumatoid Arthritis, Seizures (etoh induced), Chronic Pain Surgical History: Cholecystectomy - [facility] Procedures ALCOHOL DETOXIFICATION (07/04/15) APPLICATION OF SPLINT (03/20/13) CLOSURE SKIN & SUBCUTANEOUS NEC (08/14/13) DETOXIFICATION SERVICES FOR SUBSTANCE ABUSE TREATMENT (03/22/16) ESOPHAGOGASTRODUODENOSCOPY [EGD] W/CLOSED BIOPSY (02/16/15) OTHER GROUP THERAPY (03/12/13) PHYSICAL THERAPY NEC (07/04/15) TETANUS TOXOID ADMINIST (01/19/14) Family History: States: Unknown Family Hx - Social History Hx Tobacco Use: No Hx Alcohol Use: Yes Hx Substance Use: No - Immunization History Hx Tetanus Toxoid Vaccination: No Hx Influenza Vaccination: No Hx Pneumococcal Vaccination: No Review Of Systems Constitutional: Negative for: Fever, Chills Cardiovascular: Negative for: Chest Pain, Palpitations Respiratory: Negative for: Cough, Shortness of Breath Gastrointestinal: Negative for: Nausea, Vomiting, Abdominal Pain Skin: Negative for: Rash Neurological: Negative for: Weakness, Numbness Psych: Negative for: Depression, Suicidal ideation Physical Exam - Physical Exam Appears: Other (Intoxicated) Skin: Normal Color, Warm, Dry Head: Atraumatic, Normacephalic Eye(s): bilateral: Normal Inspection Ear(s): Bilateral: Normal Nose: No Discharge, No Deformity Oral Mucosa: Moist, No Drooling Throat: Normal, No Erythema, No Exudate Neck: Normal ROM, Supple Chest: Symmetrical Cardiovascular: Rhythm Regular, Murmur Respiratory: Normal Breath Sounds, No Rales, No Rhonchi, No Wheezing Gastrointestinal/Abdominal: Soft, No Tenderness, No Distention, No Guarding, No Rebound Extremity: Normal ROM, No Pedal Edema, No Calf Tenderness, No Swelling Neurological/Psych: Slow To Respond With Command (Only to tactile stimuli) Gait: Unsteady (due to ETOH intoxciation) ED Course And Treatment O2 Sat by Pulse Oximetry: 97 (On RA) Pulse Ox Interpretation: Normal Medical Decision Making Medical Decision Making: Impression : 57 y/o male well known homeless alcoholic. Disposition - Disposition Disposition: HOME/ ROUTINE Disposition Time: 04:35 Condition: GOOD Forms: [employer] [employer] (New Zealander) - Clinical Impression Clinical Impression: Alcohol intoxication, Homeless single person - Scribe Statement The provider has reviewed the documentation as recorded by the Scribe Woo Brown All medical record entries made by the Scribe were at my direction and personally dictated by me. I have reviewed the chart and agree that the record accurately reflects my personal performance of the history, physical exam, medical decision making, and the department course for this patient. I have also personally directed, reviewed, and agree with the discharge instructions and disposition.
[2017-09-21 23:41] VITALS: BP 130/80; PULSE 94; TEMP 98.6
[2017-09-22 04:35] VITALS: O2SAT 97
== END 2017-09-22 02:45 | disposition home or self-care (01) ==
LOC: C.ER 17:41
DX: F10.129 Alcohol abuse with intoxication, unspecified (principal); Z59.0 Homelessness; E11.9 Type 2 diabetes mellitus without complications; I10 Essential (primary) hypertension; I25.10 Atherosclerotic heart disease of native coronary artery without angina pectoris

== ENCOUNTER 2017-09-22 18:16 | Emergency (ER) | payer SELFPAY ==
[2017-09-22 18:35] VITALS: BMI 29.7
[2017-09-22 19:26] VITALS: RESP 18; TEMP 98.4
--- NOTE | 2017-09-22 19:27 | C.PDOC ---
History Of Present Illness 57 year old male presents to the ED intoxicated looking for a place to sleep. 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 Patient denies any other physical complaints at the time. Chief Complaint (Nursing): Substance Abuse History Per: Patient History/Exam Limitations: intoxication Onset/Duration Of Symptoms: Hrs Current Symptoms Are (Timing): Still Present Suicide/Self Injury Attempted (Context): None Modifying Factor(s): Alcohol Associated Symptoms: denies: Depression, Suicidal Thoughts, Suicidal Plan Involuntary Hold By: None Recent travel outside of the [place]: No Additional History Per: Patient Past Medical History Reviewed: Historical Data, Nursing Documentation, Vital Signs Vital Signs: Last Vital Signs Temp 98.4 F 09/22/17 19:25 Pulse 82 09/22/17 22:00 Resp 18 09/22/17 22:00 BP 126/85 09/22/17 22:00 Pulse Ox 96 09/22/17 22:13 - Medical History PMH: Anxiety, Arthritis, Bronchitis, CAD, Depression, Diabetes (Pt. did not disclose to newspaper writer, not aware), Fractures (Rt. Fa.), Gastritis, Gall Bladder Disease (s/p cholecystectomy), HTN, Post Traumatic Stress Disorder, Rheumatoid Arthritis, Seizures (etoh induced), Chronic Pain Surgical History: Cholecystectomy - [facility] Procedures ALCOHOL DETOXIFICATION (07/04/15) APPLICATION OF SPLINT (03/20/13) CLOSURE SKIN & SUBCUTANEOUS NEC (08/14/13) DETOXIFICATION SERVICES FOR SUBSTANCE ABUSE TREATMENT (03/22/16) ESOPHAGOGASTRODUODENOSCOPY [EGD] W/CLOSED BIOPSY (02/16/15) OTHER GROUP THERAPY (03/12/13) PHYSICAL THERAPY NEC (07/04/15) TETANUS TOXOID ADMINIST (01/19/14) Family History: States: Unknown Family Hx - Social History Hx Tobacco Use: No Hx Alcohol Use: Yes Hx Substance Use: No - Immunization History Hx Tetanus Toxoid Vaccination: No Hx Influenza Vaccination: No Hx Pneumococcal Vaccination: No Review Of Systems Constitutional: Negative for: Fever, Chills Cardiovascular: Negative for: Chest Pain Respiratory: Negative for: Cough, Shortness of Breath Gastrointestinal: Negative for: Nausea, Vomiting, Abdominal Pain Skin: Negative for: Rash Neurological: Negative for: Weakness, Numbness Physical Exam - Physical Exam Appears: Non-toxic, Other (Intoxicated, strong ETOH smell) Skin: Normal Color, Warm, Dry Head: Atraumatic, Normacephalic Nose: No Discharge, No Deformity Oral Mucosa: Moist Neck: Normal ROM, Supple Chest: Symmetrical Cardiovascular: Rhythm Regular, No Murmur Respiratory: Normal Breath Sounds, No Rales, No Rhonchi, No Wheezing Gastrointestinal/Abdominal: Soft, No Tenderness, No Guarding, No Rebound Extremity: Normal ROM, No Pedal Edema, No Calf Tenderness, No Deformity, No Swelling Neurological/Psych: Oriented x3, Normal Speech, Normal Cognition ED Course And Treatment O2 Sat by Pulse Oximetry: 96 (On RA) Pulse Ox Interpretation: Normal Disposition Counseled Patient/Family Regarding: Diagnosis - Disposition Referrals: [facility] at [facility] [Outside] Disposition Time: 22:14 Condition: STABLE Instructions: Abuse of Alcohol (ED) Forms: [facility] (Angolan) - POA Present On Arrival: None - Clinical Impression Clinical Impression: Alcohol abuse - Scribe Statement The provider has reviewed the documentation as recorded by the Scribe Woo Brown All medical record entries made by the Scribe were at my direction and personally dictated by me. I have reviewed the chart and agree that the record accurately reflects my personal performance of the history, physical exam, medical decision making, and the department course for this patient. I have also personally directed, reviewed, and agree with the discharge instructions and disposition.
[2017-09-22 22:01] VITALS: BP 126/85; PULSE 82
[2017-09-22 22:14] VITALS: O2SAT 96
== END 2017-09-22 22:17 | disposition home or self-care (01) ==
LOC: C.ER 18:16
DX: F10.10 Alcohol abuse, uncomplicated (principal); Y90.9 Presence of alcohol in blood, level not specified

== ENCOUNTER 2017-09-23 18:44 | Emergency (ER) | payer SELFPAY ==
[2017-09-23 18:45] VITALS: BMI 29.7
--- NOTE | 2017-09-23 19:23 | C.PDOC ---
History Of Present Illness Patient presents to the ER with acute ETOH intoxication, requesting a place to spend the night. Denies physical complaints at this time. Time Seen by Provider: 09/23/17 19:23 Chief Complaint (Nursing): Substance Abuse History Per: Patient History/Exam Limitations: no limitations Onset/Duration Of Symptoms: Hrs Current Symptoms Are (Timing): Still Present Suicide/Self Injury Attempted (Context): None Modifying Factor(s): Alcohol Severity: None Pain Scale Rating Of: 0 Associated Symptoms: denies: Depression, Suicidal Thoughts, Suicidal Plan Involuntary Hold By: None Recent travel outside of the [place]: No Past Medical History Reviewed: Historical Data, Nursing Documentation, Vital Signs Vital Signs: Last Vital Signs Temp 98.6 F 09/23/17 20:33 Pulse 68 09/23/17 20:33 Resp 20 09/23/17 20:33 BP 138/77 09/23/17 20:33 Pulse Ox 98 09/23/17 20:33 - Medical History PMH: Anxiety, Arthritis, Bronchitis, CAD, Depression, 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 Fa.), Gastritis, Gall Bladder Disease (s/p cholecystectomy), HTN, Post Traumatic Stress Disorder, Rheumatoid Arthritis, Seizures (etoh induced), Chronic Pain Surgical History: Cholecystectomy - [facility] Procedures ALCOHOL DETOXIFICATION (07/04/15) APPLICATION OF SPLINT (03/20/13) CLOSURE SKIN & SUBCUTANEOUS NEC (08/14/13) DETOXIFICATION SERVICES FOR SUBSTANCE ABUSE TREATMENT (03/22/16) ESOPHAGOGASTRODUODENOSCOPY [EGD] W/CLOSED BIOPSY (02/16/15) OTHER GROUP THERAPY (03/12/13) PHYSICAL THERAPY NEC (07/04/15) TETANUS TOXOID ADMINIST (01/19/14) Family History: States: No Known Family Hx - Social History Hx Tobacco Use: No Hx Alcohol Use: Yes Hx Substance Use: No - Immunization History Hx Tetanus Toxoid Vaccination: No Hx Influenza Vaccination: No Hx Pneumococcal Vaccination: No Review Of Systems Constitutional: Negative for: Fever, Chills Gastrointestinal: Negative for: Nausea, Vomiting, Diarrhea Physical Exam - Physical Exam Appears: Non-toxic, No Acute Distress, Other (ETOH on breath) Skin: Warm, Dry Head: Normacephalic Oral Mucosa: Moist Chest: Symmetrical Cardiovascular: Rhythm Regular Respiratory: No Rales, No Rhonchi, No Wheezing Gastrointestinal/Abdominal: Soft, No Tenderness Neurological/Psych: Oriented x3 ED Course And Treatment O2 Sat by Pulse Oximetry: 98 (Room air) Pulse Ox Interpretation: Normal Disposition Counseled Patient/Family Regarding: Studies Performed, Diagnosis, Need For Followup - Disposition Referrals: [facility] at [facility] [Outside] Disposition: HOME/ ROUTINE Disposition Time: 19:23 Condition: FAIR Instructions: Alcohol Intoxication (DC) Forms: [employer] (Israeli) - Clinical Impression Clinical Impression: Alcohol intoxication, Alcohol intoxication, Chronic alcoholism - Scribe Statement The provider has reviewed the documentation as recorded by the Scribe Fabián Ramirez All medical record entries made by the Scribe were at my direction and personally dictated by me. I have reviewed the chart and agree that the record accurately reflects my personal performance of the history, physical exam, medical decision making, and the department course for this patient. I have also personally directed, reviewed, and agree with the discharge instructions and disposition.
[2017-09-23 23:38] VITALS: RESP 18; TEMP 98; O2SAT 99
[2017-09-24 03:54] VITALS: BP 139/87; PULSE 101
== END 2017-09-24 03:54 | disposition home or self-care (01) ==
LOC: C.ER 18:44
DX: F10.229 Alcohol dependence with intoxication, unspecified (principal); I10 Essential (primary) hypertension; I25.10 Atherosclerotic heart disease of native coronary artery without angina pectoris

== ENCOUNTER 2017-09-24 20:47 | Emergency (ER) | payer SELFPAY ==
[2017-09-24 20:48] VITALS: BMI 29.7
--- NOTE | 2017-09-24 21:19 | C.PDOC ---
History Of Present Illness The patient presents to the ED for evaluation of acute alcohol intoxication for an unknown duration. Patient is familiar to this ED and has had multiple presentations concerning alcohol intoxication. Patient admits to drinking earlier today and has no complaints at this time. Time Seen by Provider: 09/24/17 21:18 Chief Complaint (Nursing): Substance Abuse History Per: Patient History/Exam Limitations: intoxication Onset/Duration Of Symptoms: Unknown Current Symptoms Are (Timing): Still Present Suicide/Self Injury Attempted (Context): None Modifying Factor(s): Alcohol Severity: None Pain Scale Rating Of: 0 Associated Symptoms: denies: Suicidal Thoughts, Suicidal Plan Involuntary Hold By: None Recent travel outside of the [place]: No Additional History Per: Patient Past Medical History Reviewed: Historical Data, Nursing Documentation, Vital Signs Vital Signs: Last Vital Signs Temp 97.8 F 09/24/17 21:08 Pulse 87 09/25/17 00:15 Resp 20 09/25/17 00:15 BP 141/89 09/25/17 00:15 Pulse Ox 100 09/25/17 00:15 - Medical History PMH: Anxiety, Arthritis, Bronchitis, CAD, Depression, Diabetes (Pt. did not disclose to fiction writer, not aware), Fractures (Rt. Fa.), Gastritis, Gall Bladder Disease (s/p cholecystectomy), HTN, Post Traumatic Stress Disorder, Rheumatoid Arthritis, Seizures (etoh induced), Chronic Pain Surgical History: Cholecystectomy - [facility] Procedures ALCOHOL DETOXIFICATION (07/04/15) APPLICATION OF SPLINT (03/20/13) CLOSURE SKIN & SUBCUTANEOUS NEC (08/14/13) DETOXIFICATION SERVICES FOR SUBSTANCE ABUSE TREATMENT (03/22/16) ESOPHAGOGASTRODUODENOSCOPY [EGD] W/CLOSED BIOPSY (02/16/15) OTHER GROUP THERAPY (03/12/13) PHYSICAL THERAPY NEC (07/04/15) TETANUS TOXOID ADMINIST (01/19/14) Family History: States: Unknown Family Hx - Social History Hx Tobacco Use: No Hx Alcohol Use: Yes Hx Substance Use: No - Immunization History Hx Tetanus Toxoid Vaccination: No Hx Influenza Vaccination: No Hx Pneumococcal Vaccination: No Review Of Systems Constitutional: Negative for: Fever, Chills Cardiovascular: Negative for: Chest Pain, Palpitations Respiratory: Negative for: Cough, Shortness of Breath Gastrointestinal: Negative for: Nausea, Vomiting, Abdominal Pain Skin: Negative for: Rash, Lesions, Jaundice, Bruising Neurological: Negative for: Weakness, Numbness Psych: Positive for: Other (EtOH intoxication ). Negative for: Suicidal ideation Physical Exam - Physical Exam Appears: No Acute Distress, Other (visibly intoxicated ) Skin: Warm, Dry Head: Normacephalic Oral Mucosa: Moist, Other (alcohol on breath ) Neck: Supple Chest: Symmetrical, No Deformity, No Tenderness Cardiovascular: Rhythm Regular, No Murmur Respiratory: No Rales, No Rhonchi, No Wheezing Extremity: Normal ROM, Capillary Refill (less than 2 seconds ) Neurological/Psych: Other (arousable to touch and verbal stimuli ) Gait: Unsteady ED Course And Treatment O2 Sat by Pulse Oximetry: 100 Pulse Ox Interpretation: Normal Reevaluation Time: 05:22 Reassessment Condition: Improved Disposition Counseled Patient/Family Regarding: Studies Performed, Diagnosis - Disposition Referrals: [facility] at [facility] [Outside] Disposition: HOME/ ROUTINE Disposition Time: 21:18 Condition: FAIR Instructions: Alcohol Intoxication (DC) Forms: [employer] (Belarusian) - Clinical Impression Clinical Impression: Alcohol intoxication, Chronic alcoholism - Scribe Statement The provider has reviewed the documentation as recorded by the Scribe (Kari Fajardo) Provider Attestation: All medical record entries made by the Scribe were at my direction and personally dictated by me. I have reviewed the chart and agree that the record accurately reflects my personal performance of the history, physical exam, medical decision making, and the department course for this patient. I have also personally directed, reviewed, and agree with the discharge instructions and disposition.
[2017-09-24 23:35] VITALS: TEMP 97.8
[2017-09-25 03:50] VITALS: O2SAT 100
[2017-09-25 05:24] VITALS: BP 131/76; PULSE 77; RESP 18
== END 2017-09-25 05:15 | disposition home or self-care (01) ==
LOC: SUPCPDRO 20:47 → C.ER 20:47
DX: F10.229 Alcohol dependence with intoxication, unspecified (principal); Y90.9 Presence of alcohol in blood, level not specified

== ENCOUNTER 2017-09-25 18:32 | Emergency (ER) | payer SELFPAY ==
[2017-09-25 18:33] VITALS: BMI 29.7
[2017-09-25 19:11] VITALS: O2SAT 95
--- NOTE | 2017-09-25 19:32 | C.PDOC ---
History Of Present Illness 57 year old male with Hx of ETOH abuse presents to the ED intoxicated and looking for a place to sleep. 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 Chief Complaint (Nursing): Substance Abuse History Per: Patient History/Exam Limitations: intoxication Onset/Duration Of Symptoms: Hrs Current Symptoms Are (Timing): Still Present Suicide/Self Injury Attempted (Context): None Modifying Factor(s): Alcohol Associated Symptoms: denies: Depression, Suicidal Thoughts, Suicidal Plan Involuntary Hold By: None Recent travel outside of the [place]: No Additional History Per: Patient Past Medical History Reviewed: Historical Data, Nursing Documentation, Vital Signs Vital Signs: Last Vital Signs Temp 98.0 F 09/26/17 04:28 Pulse 91 H 09/26/17 04:28 Resp 16 09/26/17 04:28 BP 131/63 09/26/17 04:28 Pulse Ox 95 09/26/17 04:28 - Medical History PMH: Anxiety, Arthritis, Bronchitis, CAD, Depression, Diabetes (Pt. did not disclose to ticket writer, not aware), Fractures (Rt. Fa.), Gastritis, Gall Bladder Disease (s/p cholecystectomy), HTN, Post Traumatic Stress Disorder, Rheumatoid Arthritis, Seizures (withdrawal induced), Chronic Pain Surgical History: Cholecystectomy - [facility] Procedures ALCOHOL DETOXIFICATION (07/04/15) APPLICATION OF SPLINT (03/20/13) CLOSURE SKIN & SUBCUTANEOUS NEC (08/14/13) DETOXIFICATION SERVICES FOR SUBSTANCE ABUSE TREATMENT (03/22/16) ESOPHAGOGASTRODUODENOSCOPY [EGD] W/CLOSED BIOPSY (02/16/15) OTHER GROUP THERAPY (03/12/13) PHYSICAL THERAPY NEC (07/04/15) TETANUS TOXOID ADMINIST (01/19/14) Family History: States: Unknown Family Hx - Social History Hx Tobacco Use: No Hx Alcohol Use: Yes Hx Substance Use: No - Immunization History Hx Tetanus Toxoid Vaccination: No Hx Influenza Vaccination: No Hx Pneumococcal Vaccination: No Review Of Systems Constitutional: Negative for: Fever, Chills Cardiovascular: Negative for: Chest Pain, Palpitations Respiratory: Negative for: Cough, Shortness of Breath Gastrointestinal: Negative for: Nausea, Vomiting, Abdominal Pain Genitourinary: Negative for: Dysuria, Hematuria Musculoskeletal: Negative for: Back Pain Skin: Negative for: Rash Neurological: Negative for: Weakness, Numbness Psych: Negative for: Depression, Suicidal ideation Physical Exam - Physical Exam Appears: Non-toxic, No Acute Distress Skin: Normal Color, Warm, Dry Head: Atraumatic, Normacephalic Nose: No Discharge Oral Mucosa: Moist Neck: Normal ROM, Supple Chest: Symmetrical Cardiovascular: Rhythm Regular, No Murmur Respiratory: Normal Breath Sounds, No Rales, No Rhonchi, No Wheezing Gastrointestinal/Abdominal: Soft, No Tenderness Extremity: Normal ROM, No Pedal Edema, No Calf Tenderness, No Swelling Neurological/Psych: Oriented x3, Normal Speech, Normal Cognition Gait: Steady ED Course And Treatment O2 Sat by Pulse Oximetry: 95 (On RA) Pulse Ox Interpretation: Normal Disposition Counseled Patient/Family Regarding: Diagnosis - Disposition Referrals: [facility] at [facility] [Outside] Disposition: HOME/ ROUTINE Disposition Time: 06:00 Condition: STABLE Instructions: Alcohol Intoxication (GEN), Abuse of Alcohol (ED) Forms: [employer] (Niuean) - POA Present On Arrival: None - Clinical Impression Clinical Impression: Alcohol intoxication, H/O alcohol abuse - Scribe Statement The provider has reviewed the documentation as recorded by the Scribe Woo Brown All medical record entries made by the Scribe were at my direction and personally dictated by me. I have reviewed the chart and agree that the record accurately reflects my personal performance of the history, physical exam, medical decision making, and the department course for this patient. I have also personally directed, reviewed, and agree with the discharge instructions and disposition.
[2017-09-26 04:29] VITALS: BP 131/63; PULSE 91; RESP 16; TEMP 98
== END 2017-09-26 05:17 | disposition home or self-care (01) ==
LOC: C.ER 18:32
DX: F10.129 Alcohol abuse with intoxication, unspecified (principal); Y90.9 Presence of alcohol in blood, level not specified

== ENCOUNTER 2017-09-26 17:33 | Emergency (ER) | payer SELFPAY ==
[2017-09-26 17:33] VITALS: BMI 29.7
[2017-09-26 17:44] VITALS: BP 123/79; TEMP 98.3; O2SAT 97
--- NOTE | 2017-09-26 17:56 | C.PDOC ---
History Of Present Illness 57 year old male with Hx of ETOH abuse is brought to the ED via EMS for ETOH intoxication. Patient has no visible signs of trauma, injury, presents disheveled, and intoxicated. Patient denies any SI/HI, auditory or visual hallucinations. Time Seen by Provider: 09/26/17 17:38 Chief Complaint (Nursing): Substance Abuse History Per: Patient, EMS History/Exam Limitations: intoxication Onset/Duration Of Symptoms: Hrs Current Symptoms Are (Timing): Still Present Suicide/Self Injury Attempted (Context): None Modifying Factor(s): Alcohol Associated Symptoms: denies: Depression, Suicidal Thoughts, Suicidal Plan Recent travel outside of the [place]: No Additional History Per: Patient, EMS Past Medical History Reviewed: Historical Data, Nursing Documentation, Vital Signs Vital Signs: Last Vital Signs Temp 98.3 F 09/26/17 17:35 Pulse 83 09/26/17 19:56 Resp 20 09/26/17 19:56 BP 123/79 09/26/17 17:35 Pulse Ox 97 09/26/17 19:47 - Medical History PMH: Anxiety, Arthritis, Bronchitis, CAD, Depression, Diabetes (Pt. did not disclose to curriculum writer, not aware), Fractures (Rt. Fa.), Gastritis, Gall Bladder Disease (s/p cholecystectomy), HTN, Post Traumatic Stress Disorder, Rheumatoid Arthritis, Seizures (withdrawal induced), Chronic Pain Surgical History: Cholecystectomy - [facility] Procedures ALCOHOL DETOXIFICATION (07/04/15) APPLICATION OF SPLINT (03/20/13) CLOSURE SKIN & SUBCUTANEOUS NEC (08/14/13) DETOXIFICATION SERVICES FOR SUBSTANCE ABUSE TREATMENT (03/22/16) ESOPHAGOGASTRODUODENOSCOPY [EGD] W/CLOSED BIOPSY (02/16/15) OTHER GROUP THERAPY (03/12/13) PHYSICAL THERAPY NEC (07/04/15) TETANUS TOXOID ADMINIST (01/19/14) Family History: States: Unknown Family Hx - Social History Hx Tobacco Use: No Hx Alcohol Use: Yes Hx Substance Use: No - Immunization History Hx Tetanus Toxoid Vaccination: No Hx Influenza Vaccination: No Hx Pneumococcal Vaccination: No Review Of Systems Constitutional: Negative for: Fever, Chills Cardiovascular: Negative for: Chest Pain, Palpitations Respiratory: Negative for: Cough, Shortness of Breath Gastrointestinal: Negative for: Nausea, Vomiting, Abdominal Pain Skin: Negative for: Rash Neurological: Negative for: Weakness, Numbness Psych: Negative for: Depression, Suicidal ideation Physical Exam - Physical Exam Appears: Non-toxic, No Acute Distress, Other (Intoxicated ) Skin: Normal Color, Warm, Dry Head: Atraumatic, Normacephalic Nose: No Discharge, No Deformity Oral Mucosa: Moist Neck: Normal ROM, Supple Chest: Symmetrical Cardiovascular: Rhythm Regular, No Murmur Respiratory: Normal Breath Sounds, No Rales, No Rhonchi, No Wheezing Gastrointestinal/Abdominal: Soft, No Tenderness Extremity: Normal ROM, No Calf Tenderness, No Deformity, No Swelling Neurological/Psych: Oriented x3 ED Course And Treatment O2 Sat by Pulse Oximetry: 97 (On RA) Pulse Ox Interpretation: Normal Medical Decision Making Medical Decision Making: FS:85 7:47PM On reevaluation, patient is AAOx3. He is ambulating around ED with steady gait and has no complaints. Will dc Disposition - Disposition Disposition: HOME/ ROUTINE Disposition Time: 19:47 Condition: GOOD Forms: [facility] (Brazilian) - Clinical Impression Clinical Impression: Alcohol abuse - Scribe Statement The provider has reviewed the documentation as recorded by the Scribe Woo Brown All medical record entries made by the Scribe were at my direction and personally dictated by me. I have reviewed the chart and agree that the record accurately reflects my personal performance of the history, physical exam, medical decision making, and the department course for this patient. I have also personally directed, reviewed, and agree with the discharge instructions and disposition.
[2017-09-26 19:57] VITALS: PULSE 83; RESP 20
== END 2017-09-26 19:55 | disposition home or self-care (01) ==
LOC: C.ER 17:33
DX: F10.10 Alcohol abuse, uncomplicated (principal); Y90.9 Presence of alcohol in blood, level not specified

== ENCOUNTER 2017-09-28 00:32 | Emergency (ER) | payer SELFPAY ==
[2017-09-28 00:33] VITALS: BMI 29.7
[2017-09-28 00:43] VITALS: TEMP 98.1
--- NOTE | 2017-09-28 01:30 | C.PDOC ---
History Of Present Illness 57 yr old male presents to ED intoxicated, states last drink was in the afternoon "while the sun was still up". Patient is arousable to verbal stimuli and reports no acute complaints. Chief Complaint (Nursing): Substance Abuse History Per: Patient History/Exam Limitations: intoxication Onset/Duration Of Symptoms: Hrs Current Symptoms Are (Timing): Still Present Suicide/Self Injury Attempted (Context): None Modifying Factor(s): Alcohol Associated Symptoms: denies: Depression, Suicidal Thoughts, Suicidal Plan Involuntary Hold By: None Recent travel outside of the [place]: No Past Medical History Reviewed: Historical Data, Nursing Documentation, Vital Signs Vital Signs: Last Vital Signs Temp 98.1 F 09/28/17 00:38 Pulse 81 09/28/17 01:53 Resp 16 09/28/17 01:53 BP 119/76 09/28/17 01:53 Pulse Ox 94 L 09/28/17 01:53 - Medical History PMH: Anxiety, Arthritis, Bronchitis, CAD, Depression, Diabetes (Pt. did not disclose to resume writer, not aware), Fractures (RIGHT ARM), Gastritis, Gall Bladder Disease (s/p cholecystectomy), HTN, Post Traumatic Stress Disorder, Rheumatoid Arthritis, Seizures, Chronic Pain Surgical History: Cholecystectomy - [facility] Procedures ALCOHOL DETOXIFICATION (07/04/15) APPLICATION OF SPLINT (03/20/13) CLOSURE SKIN & SUBCUTANEOUS NEC (08/14/13) DETOXIFICATION SERVICES FOR SUBSTANCE ABUSE TREATMENT (03/22/16) ESOPHAGOGASTRODUODENOSCOPY [EGD] W/CLOSED BIOPSY (02/16/15) OTHER GROUP THERAPY (03/12/13) PHYSICAL THERAPY NEC (07/04/15) TETANUS TOXOID ADMINIST (01/19/14) Family History: States: Unknown Family Hx - Social History Hx Tobacco Use: No Hx Alcohol Use: Yes Hx Substance Use: No - Immunization History Hx Tetanus Toxoid Vaccination: No Hx Influenza Vaccination: No Hx Pneumococcal Vaccination: No Review Of Systems Constitutional: Negative for: Fever, Chills Gastrointestinal: Negative for: Nausea, Vomiting, Diarrhea Physical Exam - Physical Exam Appears: No Acute Distress, Other (Somnolent, No trauma noted, arousable to verbal stimuli) Skin: Normal Color, Warm, Dry Head: Atraumatic, Normacephalic Eye(s): bilateral: Normal Inspection Oral Mucosa: Moist Neck: Normal, Supple Chest: Symmetrical Cardiovascular: Rhythm Regular Respiratory: Normal Breath Sounds, No Rales, No Rhonchi, No Wheezing Gastrointestinal/Abdominal: Soft, No Tenderness Neurological/Psych: Oriented x3, No Normal Speech (Slurred speech ) ED Course And Treatment O2 Sat by Pulse Oximetry: 97 (Room air) Pulse Ox Interpretation: Normal Medical Decision Making Medical Decision Making: Impression: Chronic Alcoholism, will be observed with frequent neuro checks until sober. Disposition - Disposition Referrals: at [facility] [Outside] Disposition: HOME/ ROUTINE Disposition Time: 06:16 Condition: FAIR Instructions: Alcohol Dependence (ED) Forms: [employer] (Moldovan) - Clinical Impression Clinical Impression: Alcohol intoxication - Scribe Statement The provider has reviewed the documentation as recorded by the Scribjosé miguel Rosales All medical record entries made by the Scribe were at my direction and personally dictated by me. I have reviewed the chart and agree that the record accurately reflects my personal performance of the history, physical exam, medical decision making, and the department course for this patient. I have also personally directed, reviewed, and agree with the discharge instructions and disposition.
[2017-09-28 01:54] VITALS: BP 119/76; PULSE 81; RESP 16
[2017-09-28 06:18] VITALS: O2SAT 97
== END 2017-09-28 06:37 | disposition home or self-care (01) ==
LOC: C.ER 00:32
DX: F10.129 Alcohol abuse with intoxication, unspecified (principal); Y90.9 Presence of alcohol in blood, level not specified

== ENCOUNTER → 2017-09-28 20:11 | Emergency (ER) | payer SELFPAY ==
[2017-09-28 20:12] VITALS: BMI 29.7
== END | disposition left against medical advice (07) ==
LOC: C.ER 20:11
DX: Z02.89 Encounter for other administrative examinations (principal); F10.10 Alcohol abuse, uncomplicated

== ENCOUNTER 2017-10-01 22:23 | Emergency (ER) | payer SELFPAY ==
[2017-10-01 22:23] VITALS: BMI 29.7
--- NOTE | 2017-10-01 23:25 | C.PDOC ---
History Of Present Illness 57 year male presents to the ER with acute ETOH intoxication. Denies physical complaints at this time. Time Seen by Provider: 10/01/17 23:20 Chief Complaint (Nursing): Substance Abuse History Per: Patient History/Exam Limitations: no limitations Onset/Duration Of Symptoms: Hrs Current Symptoms Are (Timing): Still Present Suicide/Self Injury Attempted (Context): None Modifying Factor(s): Alcohol Associated Symptoms: denies: Depression, Suicidal Thoughts, Suicidal Plan Involuntary Hold By: None Recent travel outside of the [place]: No Past Medical History Reviewed: Historical Data, Nursing Documentation, Vital Signs Vital Signs: Last Vital Signs Temp 98.1 F 10/02/17 05:00 Pulse 99 H 10/02/17 05:00 Resp 18 10/02/17 05:00 BP 114/62 10/02/17 05:00 Pulse Ox 95 10/02/17 05:00 - Medical History PMH: Anxiety, Arthritis, Bronchitis, CAD, Depression, Diabetes (Pt. did not disclose to television script writer, not aware), Fractures (RIGHT ARM), Gastritis, Gall Bladder Disease (s/p cholecystectomy), HTN, Post Traumatic Stress Disorder, Rheumatoid Arthritis, Seizures, Chronic Pain Surgical History: Cholecystectomy - [facility] Procedures ALCOHOL DETOXIFICATION (07/04/15) APPLICATION OF SPLINT (03/20/13) CLOSURE SKIN & SUBCUTANEOUS NEC (08/14/13) DETOXIFICATION SERVICES FOR SUBSTANCE ABUSE TREATMENT (03/22/16) ESOPHAGOGASTRODUODENOSCOPY [EGD] W/CLOSED BIOPSY (02/16/15) OTHER GROUP THERAPY (03/12/13) PHYSICAL THERAPY NEC (07/04/15) TETANUS TOXOID ADMINIST (01/19/14) Family History: States: Unknown Family Hx - Social History Hx Tobacco Use: No Hx Alcohol Use: Yes Hx Substance Use: No - Immunization History Hx Tetanus Toxoid Vaccination: No Hx Influenza Vaccination: No Hx Pneumococcal Vaccination: No Review Of Systems Constitutional: Negative for: Fever, Chills Gastrointestinal: Negative for: Nausea, Vomiting, Diarrhea Physical Exam - Physical Exam Appears: Non-toxic, No Acute Distress, Other (ETOH on breath) Skin: Normal Color, Warm, Dry Head: Atraumatic, Normacephalic Eye(s): bilateral: Normal Inspection Oral Mucosa: Moist Chest: Symmetrical Cardiovascular: Rhythm Regular Respiratory: Normal Breath Sounds, No Rales, No Rhonchi, No Wheezing Gastrointestinal/Abdominal: Soft, No Tenderness Neurological/Psych: Oriented x3, Normal Speech ED Course And Treatment O2 Sat by Pulse Oximetry: 97 (room air) Pulse Ox Interpretation: Normal Disposition - Disposition Referrals: [facility] [Outside] [facility] [Outside] Disposition: HOME/ ROUTINE Disposition Time: 05:00 Condition: IMPROVED Additional Instructions: Thank you for letting us take care of you today. The emergency medical care you received today was directed at your acute symptoms. If you were prescribed any medication, please fill it and take as directed. It may take several days for your symptoms to resolve. Return to the Emergency Department if your symptoms worsen, do not improve, or if you have any other problems. Please contact your doctor or call one of the physicians/clinics you have been referred to that are listed on the Patient Visit Information form that is included in your discharge packet. Bring any paperwork you were given at discharge with you along with any medications you are taking to your follow up visit. Our treatment cannot replace ongoing medical care by a primary care provider (PCP) outside of the emergency department. Thank you for allowing the [facility] team to be part of your care today. Follow up in the clinic in 3-5 days for outpatient care and further management. Instructions: Alcohol Intoxication (ED) Forms: [employer] (Ukrainian) - Clinical Impression Clinical Impression: Alcohol intoxication - Scribe Statement The provider has reviewed the documentation as recorded by the Scribe Fabián Ramierz All medical record entries made by the Scribe were at my direction and personally dictated by me. I have reviewed the chart and agree that the record accurately reflects my personal performance of the history, physical exam, medical decision making, and the department course for this patient. I have also personally directed, reviewed, and agree with the discharge instructions and disposition.
[2017-10-02 00:58] VITALS: RESP 18
[2017-10-02 05:01] VITALS: BP 114/62; PULSE 99; TEMP 98.1
[2017-10-02 05:54] VITALS: O2SAT 97
== END 2017-10-02 05:44 | disposition home or self-care (01) ==
LOC: C.ER 22:23
DX: F10.129 Alcohol abuse with intoxication, unspecified (principal); E11.9 Type 2 diabetes mellitus without complications; I25.10 Atherosclerotic heart disease of native coronary artery without angina pectoris

== ENCOUNTER 2017-10-02 21:46 | Emergency (ER) | payer SELFPAY ==
[2017-10-02 21:46] VITALS: BMI 29.7
[2017-10-02 21:52] VITALS: RESP 16
--- NOTE | 2017-10-02 22:09 | C.PDOC ---
History Of Present Illness The patient presents to the ED with acute alcohol intoxication for an unknown duration. Patient is familiar to this ED and has had many prior visits concerning alcohol intoxication. Patient admits to drinking earlier today and has no physical complaints at this time. Time Seen by Provider: 10/02/17 22:08 Chief Complaint (Nursing): Substance Abuse History Per: Patient History/Exam Limitations: intoxication Onset/Duration Of Symptoms: Unknown Current Symptoms Are (Timing): Still Present Suicide/Self Injury Attempted (Context): None Modifying Factor(s): Alcohol Severity: None Pain Scale Rating Of: 0 Associated Symptoms: denies: Suicidal Thoughts, Suicidal Plan Involuntary Hold By: None Recent travel outside of the [place]: No Additional History Per: Patient Past Medical History Reviewed: Historical Data, Nursing Documentation, Vital Signs Vital Signs: Last Vital Signs Temp 98.6 F 10/02/17 21:50 Pulse 86 10/03/17 01:45 Resp 16 10/03/17 01:45 BP 102/78 10/03/17 01:45 Pulse Ox 97 10/03/17 01:45 - Medical History PMH: Anxiety, Arthritis, Bronchitis, CAD, Depression, Diabetes (Pt. did not disclose to information writer, not aware), Fractures (RIGHT ARM), Gastritis, Gall Bladder Disease (s/p cholecystectomy), HTN, Post Traumatic Stress Disorder, Rheumatoid Arthritis, Seizures, Chronic Pain Surgical History: Cholecystectomy - [facility] Procedures ALCOHOL DETOXIFICATION (07/04/15) APPLICATION OF SPLINT (03/20/13) CLOSURE SKIN & SUBCUTANEOUS NEC (08/14/13) DETOXIFICATION SERVICES FOR SUBSTANCE ABUSE TREATMENT (03/22/16) ESOPHAGOGASTRODUODENOSCOPY [EGD] W/CLOSED BIOPSY (02/16/15) OTHER GROUP THERAPY (03/12/13) PHYSICAL THERAPY NEC (07/04/15) TETANUS TOXOID ADMINIST (01/19/14) Family History: States: Unknown Family Hx - Social History Hx Tobacco Use: No Hx Alcohol Use: Yes Hx Substance Use: No - Immunization History Hx Tetanus Toxoid Vaccination: No Hx Influenza Vaccination: No Hx Pneumococcal Vaccination: No Review Of Systems Constitutional: Negative for: Fever, Chills Cardiovascular: Negative for: Chest Pain, Palpitations Respiratory: Negative for: Cough, Shortness of Breath Gastrointestinal: Negative for: Nausea, Vomiting, Abdominal Pain Skin: Negative for: Rash, Lesions, Jaundice, Bruising Neurological: Negative for: Weakness, Numbness Psych: Positive for: Other (EtOH intoxication ) Physical Exam - Physical Exam Appears: Non-toxic, No Acute Distress, Other (visibly intoxicated ) Skin: Warm, Dry Head: Normacephalic Eye(s): bilateral: Normal Inspection Oral Mucosa: Moist, Other (alcohol on breath ) Neck: Supple Chest: Symmetrical, No Deformity, No Tenderness Cardiovascular: Rhythm Regular, No Murmur Respiratory: No Rales, No Rhonchi, No Wheezing Extremity: Normal ROM, Capillary Refill (less than 2 seconds ) Neurological/Psych: Other (arousable to touch and verbal stimuli ) Gait: Unsteady ED Course And Treatment O2 Sat by Pulse Oximetry: 100 (on RA) Pulse Ox Interpretation: Normal Reevaluation Time: 04:58 Reassessment Condition: Improved Disposition Counseled Patient/Family Regarding: Studies Performed, Diagnosis - Disposition Referrals: [facility] [Outside] Disposition: HOME/ ROUTINE Disposition Time: 22:08 Condition: FAIR Instructions: Alcohol Intoxication (DC) Forms: [employer] (Irish) - Clinical Impression Clinical Impression: Alcohol intoxication, Chronic alcoholism - Scribe Statement The provider has reviewed the documentation as recorded by the Scribe (Kari Fajardo) Provider Attestation: All medical record entries made by the Scribe were at my direction and personally dictated by me. I have reviewed the chart and agree that the record accurately reflects my personal performance of the history, physical exam, medical decision making, and the department course for this patient. I have also personally directed, reviewed, and agree with the discharge instructions and disposition.
[2017-10-03 05:36] VITALS: BP 112/83; PULSE 79; TEMP 98; O2SAT 99
== END 2017-10-03 05:36 | disposition home or self-care (01) ==
LOC: C.ER 21:46
DX: F10.229 Alcohol dependence with intoxication, unspecified (principal); Y90.9 Presence of alcohol in blood, level not specified

== ENCOUNTER 2017-10-03 21:47 | Emergency (ER) | payer SELFPAY ==
[2017-10-03 21:47] VITALS: BMI 29.7
--- NOTE | 2017-10-03 22:09 | C.PDOC ---
History Of Present Illness Patient presents to the ER with acute ETOH intoxication. Denies physical complaints at this time. Time Seen by Provider: 10/03/17 22:08 Chief Complaint (Nursing): Substance Abuse History Per: Patient History/Exam Limitations: no limitations Onset/Duration Of Symptoms: Hrs Current Symptoms Are (Timing): Still Present Suicide/Self Injury Attempted (Context): None Modifying Factor(s): Alcohol Severity: None Pain Scale Rating Of: 0 Associated Symptoms: denies: Depression, Suicidal Thoughts, Suicidal Plan Involuntary Hold By: None Recent travel outside of the [place]: No Past Medical History Reviewed: Historical Data, Nursing Documentation, Vital Signs Vital Signs: Last Vital Signs Temp 98.6 F 10/03/17 22:05 Pulse 74 10/04/17 02:32 Resp 12 10/04/17 02:32 BP 120/78 10/04/17 02:32 Pulse Ox 97 10/04/17 02:32 - Medical History PMH: Anxiety, Arthritis, Bronchitis, CAD, Depression, Diabetes (Pt. did not disclose to investigative writer, not aware), Fractures (RIGHT ARM), Gastritis, Gall Bladder Disease (s/p cholecystectomy), HTN, Post Traumatic Stress Disorder, Rheumatoid Arthritis, Seizures, Chronic Pain Surgical History: Cholecystectomy - [facility] Procedures ALCOHOL DETOXIFICATION (07/04/15) APPLICATION OF SPLINT (03/20/13) CLOSURE SKIN & SUBCUTANEOUS NEC (08/14/13) DETOXIFICATION SERVICES FOR SUBSTANCE ABUSE TREATMENT (03/22/16) ESOPHAGOGASTRODUODENOSCOPY [EGD] W/CLOSED BIOPSY (02/16/15) OTHER GROUP THERAPY (03/12/13) PHYSICAL THERAPY NEC (07/04/15) TETANUS TOXOID ADMINIST (01/19/14) Family History: States: No Known Family Hx - Social History Hx Tobacco Use: No Hx Alcohol Use: Yes Hx Substance Use: No - Immunization History Hx Tetanus Toxoid Vaccination: No Hx Influenza Vaccination: No Hx Pneumococcal Vaccination: No Review Of Systems Constitutional: Negative for: Fever, Chills Gastrointestinal: Negative for: Nausea, Vomiting, Diarrhea Physical Exam - Physical Exam Appears: Non-toxic, No Acute Distress, Other (ETOH on breath. No injuries noted. ) Skin: Warm, Dry Head: Normacephalic Oral Mucosa: Moist Chest: Symmetrical, No Tenderness Cardiovascular: Rhythm Regular Respiratory: No Rales, No Rhonchi, No Wheezing Gastrointestinal/Abdominal: Soft, No Tenderness Neurological/Psych: Oriented x3 ED Course And Treatment O2 Sat by Pulse Oximetry: 98 (room air) Pulse Ox Interpretation: Normal Reevaluation Time: 05:46 Reassessment Condition: Improved Disposition Counseled Patient/Family Regarding: Studies Performed, Diagnosis, Need For Followup - Disposition Referrals: [facility] [Outside] Disposition Time: 22:09 Condition: FAIR Instructions: Alcohol Intoxication (DC) Forms: [employer] (Upper Sorbian) - Clinical Impression Clinical Impression: Alcohol intoxication, Chronic alcoholism - Scribe Statement The provider has reviewed the documentation as recorded by the Scribe Fabián Ramirez All medical record entries made by the Scribe were at my direction and personally dictated by me. I have reviewed the chart and agree that the record accurately reflects my personal performance of the history, physical exam, medical decision making, and the department course for this patient. I have also personally directed, reviewed, and agree with the discharge instructions and disposition.
--- NOTE | 2017-10-03 22:16 | C.PDOC ---
Time Seen by Provider: 10/03/17 22:08 Chief Complaint (Nursing): Substance Abuse Past Medical History Vital Signs: Last Vital Signs Temp 98.6 F 10/03/17 22:05 Pulse 84 10/03/17 22:05 Resp 18 10/03/17 22:05 BP 128/79 10/03/17 22:05 Pulse Ox 98 10/03/17 22:05 - Medical History PMH: Anxiety, Arthritis, Bronchitis, CAD, Depression, Diabetes (Pt. did not disclose to junior underwriter, not aware), Fractures (RIGHT ARM), Gastritis, Gall Bladder Disease (s/p cholecystectomy), HTN, Post Traumatic Stress Disorder, Rheumatoid Arthritis, Seizures, Chronic Pain Surgical History: Cholecystectomy - [facility] Procedures ALCOHOL DETOXIFICATION (07/04/15) APPLICATION OF SPLINT (03/20/13) CLOSURE SKIN & SUBCUTANEOUS NEC (08/14/13) DETOXIFICATION SERVICES FOR SUBSTANCE ABUSE TREATMENT (03/22/16) ESOPHAGOGASTRODUODENOSCOPY [EGD] W/CLOSED BIOPSY (02/16/15) OTHER GROUP THERAPY (03/12/13) PHYSICAL THERAPY NEC (07/04/15) TETANUS TOXOID ADMINIST (01/19/14) Family History: States: Unknown Family Hx - Social History Hx Tobacco Use: No Hx Alcohol Use: Yes Hx Substance Use: No - Immunization History Hx Tetanus Toxoid Vaccination: No Hx Influenza Vaccination: No Hx Pneumococcal Vaccination: No ED Course And Treatment O2 Sat by Pulse Oximetry: 98 Disposition - Disposition
[2017-10-04 05:03] VITALS: PULSE 74
[2017-10-04 05:58] VITALS: BP 121/70; RESP 14; TEMP 98; O2SAT 99
== END 2017-10-04 06:07 | disposition home or self-care (01) ==
LOC: C.ER 21:47
DX: F10.229 Alcohol dependence with intoxication, unspecified (principal); E11.9 Type 2 diabetes mellitus without complications; I25.10 Atherosclerotic heart disease of native coronary artery without angina pectoris

== ENCOUNTER 2017-10-04 20:03 | Emergency (ER) | payer SELFPAY ==
[2017-10-04 20:03] VITALS: BMI 29.7
--- NOTE | 2017-10-04 21:04 | C.PDOC ---
History Of Present Illness <Jing Riley - Last Filed: 10/04/17 21:01> <Hugo Collins - Last Filed: 10/05/17 05:55> 57yo male, presents to ED requesting his blood pressure to be checked. Patient admits to drinking alcohol today and when informed his blood pressure was within normal limits, he states "that's good." Patient has no somatic complaints , denies any chest pain, back pain or trauma. Contrary to triage note, patient denies any shortness of breath as well. (Jing Riley) History Per: Patient History/Exam Limitations: no limitations Onset/Duration Of Symptoms: Hrs Current Symptoms Are (Timing): Still Present Modifying Factor(s): Alcohol <Jing Riley - Last Filed: 10/04/17 21:01> <Hugo Collins - Last Filed: 10/05/17 05:55> Time Seen by Provider: 10/04/17 20:54 Chief Complaint (Nursing): Substance Abuse Past Medical History Reviewed: Historical Data, Nursing Documentation, Vital Signs - Medical History PMH: Anxiety, Arthritis, Bronchitis, CAD, Depression, Diabetes (Pt. 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, not aware), Fractures (RIGHT ARM), Gastritis, Gall Bladder Disease (s/p cholecystectomy), HTN, Post Traumatic Stress Disorder, Rheumatoid Arthritis, Seizures, Chronic Pain Surgical History: Cholecystectomy Family History: States: Unknown Family Hx - Social History Hx Tobacco Use: No Hx Alcohol Use: Yes Hx Substance Use: No - Immunization History Hx Tetanus Toxoid Vaccination: No Hx Influenza Vaccination: No Hx Pneumococcal Vaccination: No <Jing Riley - Last Filed: 10/04/17 21:01> Vital Signs: Last Vital Signs Temp 98.3 F 10/05/17 04:51 Pulse 97 H 10/05/17 04:51 Resp 18 10/05/17 04:51 BP 137/81 10/05/17 04:51 Pulse Ox 97 10/05/17 04:51 - [facility] Procedures ALCOHOL DETOXIFICATION (07/04/15) APPLICATION OF SPLINT (03/20/13) CLOSURE SKIN & SUBCUTANEOUS NEC (08/14/13) DETOXIFICATION SERVICES FOR SUBSTANCE ABUSE TREATMENT (03/22/16) ESOPHAGOGASTRODUODENOSCOPY [EGD] W/CLOSED BIOPSY (02/16/15) OTHER GROUP THERAPY (03/12/13) PHYSICAL THERAPY NEC (07/04/15) TETANUS TOXOID ADMINIST (01/19/14) Review Of Systems Except As Marked, All Systems Reviewed And Found Negative. Cardiovascular: Negative for: Chest Pain Respiratory: Negative for: Shortness of Breath Musculoskeletal: Negative for: Back Pain <Jing Riley - Last Filed: 10/04/17 21:01> Physical Exam - Physical Exam Appears: No Acute Distress Head: Atraumatic Neck: Supple Cardiovascular: Rhythm Regular Respiratory: Normal Breath Sounds Gastrointestinal/Abdominal: Soft, No Tenderness Back: Normal Inspection Extremity: Normal ROM (moving all extremities) <Jing Riley - Last Filed: 10/04/17 21:01> ED Course And Treatment O2 Sat by Pulse Oximetry: 95 <Jing Riley - Last Filed: 10/04/17 21:01> Reevaluation Time: 05:45 (stable for d/c) <Hugo Collins - Last Filed: 10/05/17 05:55> Medical Decision Making <Jing Riley - Last Filed: 10/04/17 21:01> <Hugo Collins - Last Filed: 10/05/17 05:55> Medical Decision Making: Fingerstick 97, within normal limits. (Jing Riley) Time: 2350 Patient signed out to me pending clinical sobriety. (Hugo Collins) Disposition <Jing Riley - Last Filed: 10/04/17 21:01> - Disposition Disposition Time: 06:00 <Hugo Collins - Last Filed: 10/05/17 05:55> - Disposition Disposition: HOME/ ROUTINE Condition: IMPROVED Forms: [facility] (Guinean) - Clinical Impression Clinical Impression: Alcohol abuse, Alcohol intoxication - Scribe Statement The provider has reviewed the documentation as recorded by the Scribe <Jing Rilye - Last Filed: 10/04/17 21:01> <Hugo Collins - Last Filed: 10/05/17 05:55> - Scribe Statement Val Estrada (Jing Riley) Provider Attestation: All medical record entries made by the Scribe were at my direction and personally dictated by me. I have reviewed the chart and agree that the record accurately reflects my personal performance of the history, physical exam, medical decision making, and the department course for this patient. I have also personally directed, reviewed, and agree with the discharge instructions and disposition. (Jing Riley)
[2017-10-05 04:53] VITALS: BP 137/81; PULSE 97; RESP 18; TEMP 98.3; O2SAT 97
== END 2017-10-05 06:00 | disposition home or self-care (01) ==
LOC: C.ER 20:03
DX: F10.129 Alcohol abuse with intoxication, unspecified (principal); Y90.9 Presence of alcohol in blood, level not specified

== ENCOUNTER 2017-10-05 18:33 | Emergency (ER) | payer SELFPAY ==
[2017-10-05 18:33] VITALS: BMI 29.7
--- NOTE | 2017-10-05 21:25 | C.PDOC ---
Time Seen by Provider: 10/05/17 19:57 Chief Complaint (Nursing): Substance Abuse Past Medical History Vital Signs: Last Vital Signs Temp 98.0 F 10/05/17 19:02 Pulse 103 H 10/05/17 19:02 Resp 20 10/05/17 19:02 BP 120/79 10/05/17 19:02 Pulse Ox 94 L 10/05/17 19:02 - Medical History PMH: Anxiety, Arthritis, Bronchitis, CAD, Depression, Diabetes (Pt. did not disclose to writer editor, not aware), Fractures (RIGHT ARM), Gastritis, Gall Bladder Disease (s/p cholecystectomy), HTN, Post Traumatic Stress Disorder, Rheumatoid Arthritis, Seizures, Chronic Pain Surgical History: Cholecystectomy - [facility] Procedures ALCOHOL DETOXIFICATION (07/04/15) APPLICATION OF SPLINT (03/20/13) CLOSURE SKIN & SUBCUTANEOUS NEC (08/14/13) DETOXIFICATION SERVICES FOR SUBSTANCE ABUSE TREATMENT (03/22/16) ESOPHAGOGASTRODUODENOSCOPY [EGD] W/CLOSED BIOPSY (02/16/15) OTHER GROUP THERAPY (03/12/13) PHYSICAL THERAPY NEC (07/04/15) TETANUS TOXOID ADMINIST (01/19/14) Family History: States: Unknown Family Hx - Social History Hx Tobacco Use: No Hx Alcohol Use: Yes Hx Substance Use: No - Immunization History Hx Tetanus Toxoid Vaccination: No Hx Influenza Vaccination: No Hx Pneumococcal Vaccination: No ED Course And Treatment O2 Sat by Pulse Oximetry: 94 Disposition - Disposition Disposition: HOME/ ROUTINE Condition: IMPROVED - Clinical Impression Clinical Impression: Alcohol abuse, Alcohol intoxication
--- NOTE | 2017-10-05 21:30 | C.PDOC ---
History Of Present Illness 57 year old male with Hx of ETOH abuse presents to the ED intoxicated. Patient shows no clear signs of injury, trauma or fall, still presents with ETOH on breath. Patient looks disheveled, unkept, malodorous. Patient denies any SI/HI, hallucinations or other physical complaints at this time. Time Seen by Provider: 10/05/17 19:57 Chief Complaint (Nursing): Substance Abuse History Per: Patient History/Exam Limitations: intoxication Onset/Duration Of Symptoms: Hrs Current Symptoms Are (Timing): Still Present Suicide/Self Injury Attempted (Context): None Modifying Factor(s): Alcohol Associated Symptoms: denies: Depression, Suicidal Thoughts, Suicidal Plan Involuntary Hold By: None Recent travel outside of the [place]: No Additional History Per: Patient Past Medical History Reviewed: Historical Data, Nursing Documentation, Vital Signs Vital Signs: Last Vital Signs Temp 98.9 F 10/05/17 21:33 Pulse 88 10/05/17 21:33 Resp 16 10/05/17 21:33 BP 122/72 10/05/17 21:33 Pulse Ox 97 10/05/17 21:33 - Medical History PMH: Anxiety, Arthritis, Bronchitis, CAD, Depression, Diabetes (Pt. did not disclose to racebook writer, not aware), Fractures (RIGHT ARM), Gastritis, Gall Bladder Disease (s/p cholecystectomy), HTN, Post Traumatic Stress Disorder, Rheumatoid Arthritis, Seizures, Chronic Pain Surgical History: Cholecystectomy - [facility] Procedures ALCOHOL DETOXIFICATION (07/04/15) APPLICATION OF SPLINT (03/20/13) CLOSURE SKIN & SUBCUTANEOUS NEC (08/14/13) DETOXIFICATION SERVICES FOR SUBSTANCE ABUSE TREATMENT (03/22/16) ESOPHAGOGASTRODUODENOSCOPY [EGD] W/CLOSED BIOPSY (02/16/15) OTHER GROUP THERAPY (03/12/13) PHYSICAL THERAPY NEC (07/04/15) TETANUS TOXOID ADMINIST (01/19/14) Family History: States: Unknown Family Hx - Social History Hx Tobacco Use: No Hx Alcohol Use: Yes Hx Substance Use: No - Immunization History Hx Tetanus Toxoid Vaccination: No Hx Influenza Vaccination: No Hx Pneumococcal Vaccination: No Review Of Systems Constitutional: Negative for: Fever, Chills Cardiovascular: Negative for: Chest Pain, Palpitations Respiratory: Negative for: Cough, Shortness of Breath Gastrointestinal: Negative for: Nausea, Vomiting, Abdominal Pain Musculoskeletal: Negative for: Back Pain Skin: Negative for: Rash Neurological: Negative for: Weakness, Numbness, Headache Psych: Negative for: Depression, Suicidal ideation Physical Exam - Physical Exam Appears: Non-toxic, Unkempt, Other (Intoxicated) Skin: Normal Color, Warm, Dry Head: Atraumatic, Normacephalic Nose: No Discharge, No Deformity Oral Mucosa: Moist Neck: Normal ROM, Supple Chest: Symmetrical Cardiovascular: Rhythm Regular, No Murmur Respiratory: Normal Breath Sounds, No Rales, No Rhonchi, No Wheezing Gastrointestinal/Abdominal: Soft, No Tenderness Extremity: Normal ROM, No Pedal Edema, No Calf Tenderness, No Deformity, No Swelling Neurological/Psych: Oriented x3, Normal Speech, Normal Cognition Gait: Steady ED Course And Treatment O2 Sat by Pulse Oximetry: 94 (On RA) Pulse Ox Interpretation: Normal Medical Decision Making Medical Decision Making: On reevaluation patient is waling around the ED with a stable gait and stable enough to be d/c. Disposition - Disposition Disposition: HOME/ ROUTINE Disposition Time: 21:30 Condition: IMPROVED Forms: [email or web address] (Ecuadorean) - Clinical Impression Clinical Impression: Alcohol abuse, Alcohol intoxication - Scribe Statement The provider has reviewed the documentation as recorded by the Scribe Woo Brown All medical record entries made by the Scribe were at my direction and personally dictated by me. I have reviewed the chart and agree that the record accurately reflects my personal performance of the history, physical exam, medical decision making, and the department course for this patient. I have also personally directed, reviewed, and agree with the discharge instructions and disposition.
[2017-10-05 21:35] VITALS: BP 122/72; PULSE 88; RESP 16; TEMP 98.9
[2017-10-05 21:37] VITALS: O2SAT 94
== END 2017-10-05 21:33 | disposition home or self-care (01) ==
LOC: C.ER 18:33
DX: F10.129 Alcohol abuse with intoxication, unspecified (principal); E11.9 Type 2 diabetes mellitus without complications; I25.10 Atherosclerotic heart disease of native coronary artery without angina pectoris

== ENCOUNTER 2017-10-06 19:51 | Emergency (ER) | payer SELFPAY ==
[2017-10-06 19:51] VITALS: BMI 29.7
--- NOTE | 2017-10-06 20:15 | C.PDOC ---
History Of Present Illness Patient presents to ED with acute ETOH intoxication. Denies physcial complaints at this time. Time Seen by Provider: 10/06/17 20:13 History Per: Patient History/Exam Limitations: no limitations Onset/Duration Of Symptoms: Hrs Current Symptoms Are (Timing): Still Present Suicide/Self Injury Attempted (Context): None Modifying Factor(s): Alcohol Severity: None Pain Scale Rating Of: 0 Associated Symptoms: denies: Depression, Suicidal Thoughts, Suicidal Plan Involuntary Hold By: None Recent travel outside of the [place]: No Past Medical History Reviewed: Historical Data, Nursing Documentation, Vital Signs Vital Signs: Last Vital Signs Temp 98.2 F 10/06/17 20:18 Pulse 93 H 10/06/17 20:18 Resp 20 10/06/17 20:18 BP 137/78 10/06/17 20:18 Pulse Ox 98 10/06/17 20:18 - Medical History PMH: Anxiety, Arthritis, Bronchitis, CAD, Depression, Diabetes (Pt. did not disclose to report writer, not aware), Fractures (RIGHT ARM), Gastritis, Gall Bladder Disease (s/p cholecystectomy), HTN, Post Traumatic Stress Disorder, Rheumatoid Arthritis, Seizures, Chronic Pain Surgical History: Cholecystectomy - [facility] Procedures ALCOHOL DETOXIFICATION (07/04/15) APPLICATION OF SPLINT (03/20/13) CLOSURE SKIN & SUBCUTANEOUS NEC (08/14/13) DETOXIFICATION SERVICES FOR SUBSTANCE ABUSE TREATMENT (03/22/16) ESOPHAGOGASTRODUODENOSCOPY [EGD] W/CLOSED BIOPSY (02/16/15) OTHER GROUP THERAPY (03/12/13) PHYSICAL THERAPY NEC (07/04/15) TETANUS TOXOID ADMINIST (01/19/14) Family History: States: No Known Family Hx - Social History Hx Tobacco Use: No Hx Alcohol Use: Yes Hx Substance Use: No - Immunization History Hx Tetanus Toxoid Vaccination: No Hx Influenza Vaccination: No Hx Pneumococcal Vaccination: No Review Of Systems Constitutional: Negative for: Fever, Chills Gastrointestinal: Negative for: Nausea, Vomiting, Diarrhea Physical Exam - Physical Exam Appears: Non-toxic, Other (ETOH on breath) Skin: Warm, Dry Head: Normacephalic Eye(s): bilateral: Normal Inspection Oral Mucosa: Moist Chest: Symmetrical, No Tenderness Cardiovascular: Rhythm Regular Respiratory: No Rales, No Rhonchi, No Wheezing Gastrointestinal/Abdominal: Soft, No Tenderness Neurological/Psych: Oriented x3 Disposition Counseled Patient/Family Regarding: Studies Performed, Diagnosis, Need For Followup - Disposition Referrals: [facility] [Outside] Disposition: HOME/ ROUTINE Disposition Time: 20:14 Condition: FAIR Instructions: Alcohol Intoxication (DC) - Clinical Impression Clinical Impression: Alcohol intoxication, Chronic alcoholism - Scribe Statement The provider has reviewed the documentation as recorded by the Rominaibjosé miguel Rosales All medical record entries made by the Rominaibjosé miguel were at my direction and personally dictated by me. I have reviewed the chart and agree that the record accurately reflects my personal performance of the history, physical exam, medical decision making, and the department course for this patient. I have also personally directed, reviewed, and agree with the discharge instructions and disposition.
[2017-10-07 02:23] VITALS: TEMP 98.3
[2017-10-07 05:47] VITALS: BP 113/78; PULSE 90; RESP 20; O2SAT 97
== END 2017-10-07 05:30 | disposition home or self-care (01) ==
LOC: C.ER 19:51
DX: F10.229 Alcohol dependence with intoxication, unspecified (principal); Y90.9 Presence of alcohol in blood, level not specified

== ENCOUNTER 2017-10-07 18:30 | Emergency (ER) | payer SELFPAY ==
[2017-10-07 18:31] VITALS: BMI 29.7
--- NOTE | 2017-10-07 20:18 | C.PDOC ---
History Of Present Illness Patient is a 57 y/o male who presents to the ED with acute EtOH intoxication. Patient has extensive past ED visits. Patient has PMHx of anxiety, depression, and SI/HI. Denies any SI/HI or plan. No other physical complaints at this time. Time Seen by Provider: 10/07/17 20:17 Chief Complaint (Nursing): Substance Abuse History Per: Patient History/Exam Limitations: no limitations Onset/Duration Of Symptoms: Hrs Current Symptoms Are (Timing): Still Present Modifying Factor(s): Alcohol Associated Symptoms: Anxiety, Depression. denies: Suicidal Thoughts, Suicidal Plan Past Medical History Reviewed: Historical Data, Nursing Documentation, Vital Signs Vital Signs: Last Vital Signs Temp 97.8 F 10/08/17 01:10 Pulse 104 H 10/08/17 01:10 Resp 15 10/08/17 01:10 BP 114/58 L 10/08/17 01:10 Pulse Ox 97 10/08/17 05:01 - Medical History PMH: Anxiety, Arthritis, Bronchitis, CAD, Depression, Diabetes (Pt. did not disclose to investment underwriter, not aware), Fractures (RIGHT ARM), Gastritis, Gall Bladder Disease (s/p cholecystectomy), HTN, Post Traumatic Stress Disorder, Rheumatoid Arthritis, Seizures, Chronic Pain Surgical History: Cholecystectomy - [facility] Procedures ALCOHOL DETOXIFICATION (07/04/15) APPLICATION OF SPLINT (03/20/13) CLOSURE SKIN & SUBCUTANEOUS NEC (08/14/13) DETOXIFICATION SERVICES FOR SUBSTANCE ABUSE TREATMENT (03/22/16) ESOPHAGOGASTRODUODENOSCOPY [EGD] W/CLOSED BIOPSY (02/16/15) OTHER GROUP THERAPY (03/12/13) PHYSICAL THERAPY NEC (07/04/15) TETANUS TOXOID ADMINIST (01/19/14) Family History: States: Unknown Family Hx - Social History Hx Tobacco Use: No Hx Alcohol Use: Yes Hx Substance Use: No - Immunization History Hx Tetanus Toxoid Vaccination: No Hx Influenza Vaccination: No Hx Pneumococcal Vaccination: No Review Of Systems Constitutional: Negative for: Fever, Chills Gastrointestinal: Negative for: Nausea, Vomiting Psych: Positive for: Anxiety, Depression Physical Exam - Physical Exam Appears: Well, No Acute Distress, Other (EtOH on breath) Skin: Normal Color, Warm, Diaphoretic Head: Normacephalic Oral Mucosa: Moist Chest: Symmetrical Cardiovascular: Rhythm Regular, No Murmur Respiratory: Normal Breath Sounds, No Rales, No Rhonchi, No Wheezing Gastrointestinal/Abdominal: Soft, No Tenderness ED Course And Treatment O2 Sat by Pulse Oximetry: 97 (room air) Pulse Ox Interpretation: Normal Progress Note: . Reevaluation Time: 05:36 Disposition Counseled Patient/Family Regarding: Studies Performed, Diagnosis, Need For Followup - Disposition Referrals: [facility] [Outside] Disposition: HOME/ ROUTINE Disposition Time: 20:18 Condition: FAIR Instructions: Alcohol Intoxication (DC) Forms: [employer] (Iraqi) - Clinical Impression Clinical Impression: Alcohol intoxication, Chronic alcoholism - Scribe Statement The provider has reviewed the documentation as recorded by the Scribe Yamilet Madrigal All medical record entries made by the Scribe were at my direction and personally dictated by me. I have reviewed the chart and agree that the record accurately reflects my personal performance of the history, physical exam, medical decision making, and the department course for this patient. I have also personally directed, reviewed, and agree with the discharge instructions and disposition.
[2017-10-08 06:32] VITALS: BP 156/88; PULSE 78; RESP 18; TEMP 97.3; O2SAT 96
== END 2017-10-08 05:30 | disposition home or self-care (01) ==
LOC: C.ER 18:30
DX: F10.229 Alcohol dependence with intoxication, unspecified (principal); E11.9 Type 2 diabetes mellitus without complications; I25.10 Atherosclerotic heart disease of native coronary artery without angina pectoris

== ENCOUNTER 2017-10-08 18:48 | Emergency (ER) | payer SELFPAY ==
[2017-10-08 18:48] VITALS: BMI 29.7
[2017-10-08 20:06] VITALS: BP 132/83; PULSE 104; RESP 18; TEMP 98.1; O2SAT 97
== END 2017-10-08 23:32 | disposition left against medical advice (07) ==
LOC: C.ER 18:48
DX: Z02.89 Encounter for other administrative examinations (principal)

== ENCOUNTER 2017-10-09 21:00 | Emergency (ER) | payer SELFPAY ==
[2017-10-09 21:00] VITALS: BMI 29.7
[2017-10-09 21:16] VITALS: O2SAT 98
--- NOTE | 2017-10-09 23:36 | C.PDOC ---
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 Patient smells of EtOH and has extensive history for similar symptoms and ED visits. Patient denies SI/HI, fever, or chills. No other physical complaints at this time. Time Seen by Provider: 10/09/17 22:57 Chief Complaint (Nursing): Substance Abuse History Per: Patient History/Exam Limitations: no limitations Onset/Duration Of Symptoms: Hrs Current Symptoms Are (Timing): Still Present Modifying Factor(s): Alcohol Associated Symptoms: denies: Suicidal Thoughts, Suicidal Plan Recent travel outside of the [place]: No Past Medical History Reviewed: Historical Data, Nursing Documentation, Vital Signs Vital Signs: Last Vital Signs Temp 98.4 F 10/09/17 21:06 Pulse 103 H 10/09/17 21:06 Resp 20 10/09/17 21:06 BP 123/76 10/09/17 21:06 Pulse Ox 98 10/09/17 23:38 - Medical History PMH: Anxiety, Arthritis, Bronchitis, CAD, Depression, Diabetes (Pt. did not disclose to technical document writer, not aware), Fractures (RIGHT ARM), Gastritis, Gall Bladder Disease (s/p cholecystectomy), HTN, Post Traumatic Stress Disorder, Rheumatoid Arthritis, Seizures, Chronic Pain Denies: Chronic Kidney Disease Surgical History: Cholecystectomy - [facility] Procedures ALCOHOL DETOXIFICATION (07/04/15) APPLICATION OF SPLINT (03/20/13) CLOSURE SKIN & SUBCUTANEOUS NEC (08/14/13) DETOXIFICATION SERVICES FOR SUBSTANCE ABUSE TREATMENT (03/22/16) ESOPHAGOGASTRODUODENOSCOPY [EGD] W/CLOSED BIOPSY (02/16/15) OTHER GROUP THERAPY (03/12/13) PHYSICAL THERAPY NEC (07/04/15) TETANUS TOXOID ADMINIST (01/19/14) Family History: States: Unknown Family Hx - Social History Hx Tobacco Use: No Hx Alcohol Use: Yes Hx Substance Use: No - Immunization History Hx Tetanus Toxoid Vaccination: No Hx Influenza Vaccination: No Hx Pneumococcal Vaccination: No Review Of Systems Constitutional: Negative for: Fever, Chills Neurological: Positive for: Headache Psych: Negative for: Suicidal ideation Physical Exam - Physical Exam Appears: Well, No Acute Distress, Other (disheveled, EtOH on breath) Skin: Normal Color, Warm, Dry, Ecchymosis (bruise to left zygoma ) Head: Normacephalic Oral Mucosa: Moist Chest: Symmetrical Cardiovascular: Rhythm Regular, No Murmur Respiratory: Normal Breath Sounds, No Rales, No Rhonchi, No Wheezing Neurological/Psych: Oriented x3 ED Course And Treatment O2 Sat by Pulse Oximetry: 98 (room air) Pulse Ox Interpretation: Normal Progress Note: CT head ordered. Disposition - Disposition Disposition Time: 00:23 Condition: STABLE Forms: [facility] (Sami) - Clinical Impression Clinical Impression: Alcohol intoxication - Scribe Statement The provider has reviewed the documentation as recorded by the Scribe Yamilet Madrigal All medical record entries made by the Scribe were at my direction and personally dictated by me. I have reviewed the chart and agree that the record accurately reflects my personal performance of the history, physical exam, medical decision making, and the department course for this patient. I have also personally directed, reviewed, and agree with the discharge instructions and disposition. Physician Patient Turnover Handoff Comments: pending sobriety and CT results
[2017-10-10 00:25] VITALS: TEMP 97.9
--- NOTE | 2017-10-10 00:45 | CT ---
EXAM: CT Head Without Intravenous Contrast CLINICAL HISTORY: 57 years old, male; Pain and injury or trauma; Fall; Initial encounter; Swelling (edema); Headache; Patient HX: 05-07-17; Additional info: Head injury TECHNIQUE: Axial computed tomography images of the head/brain without intravenous contrast. All CT scans at this facility use one or more dose reduction techniques, viz.: automated exposure control; ma/kV adjustment per patient size (including targeted exams where dose is matched to indication; i.e. head); or iterative reconstruction technique. Coronal and sagittal reformatted images were created and reviewed. COMPARISON: CT - HEAD W/O CONTRAST 2016-01-24 21:48 FINDINGS: Limitations: Suboptimal positioning. Brain: [id number] atrophy. No intracranial hemorrhage. No mass. No edema. Ventricles: No hydrocephalus. Bones/joints: No acute fracture. Soft tissues: Unremarkable. Vasculature: Minimal atherosclerotic disease of intracranial arteries. Sinuses: Near complete opacification of RIGHT maxillary sinus. Moderate mucosal thickening of LEFT maxillary sinus. Mastoid air cells: No mastoid effusion. Orbits: Unremarkable as visualized. Dental: Dental caries. IMPRESSION: 1. No intracranial hemorrhage. 2. Incidental/non-acute findings are described above.
[2017-10-10 03:44] VITALS: BP 121/75; PULSE 93; RESP 18
== END 2017-10-10 05:52 | disposition home or self-care (01) ==
LOC: C.ER 21:00
DX: F10.129 Alcohol abuse with intoxication, unspecified (principal); I25.10 Atherosclerotic heart disease of native coronary artery without angina pectoris; E11.9 Type 2 diabetes mellitus without complications

== ENCOUNTER 2017-10-10 20:42 | Emergency (ER) | payer SELFPAY ==
[2017-10-10 20:42] VITALS: BMI 29.7
[2017-10-10 20:55] VITALS: RESP 20
--- NOTE | 2017-10-10 21:18 | C.PDOC ---
History Of Present Illness 57 year old male presents to the ED with acute alcohol intoxication for an unknown duration. Patient is familiar to this ED and has had multiple visits concerning alcohol intoxication. Patient admits to drinking earlier today and has no physical complaints at this time. (Azar Welch) History Per: Patient History/Exam Limitations: intoxication Onset/Duration Of Symptoms: Unknown Current Symptoms Are (Timing): Still Present Suicide/Self Injury Attempted (Context): None Modifying Factor(s): Alcohol Associated Symptoms: denies: Suicidal Thoughts, Suicidal Plan Involuntary Hold By: None Recent travel outside of the [place]: No Additional History Per: Patient Time Seen by Provider: 10/10/17 21:15 Chief Complaint (Nursing): Substance Abuse Past Medical History Reviewed: Historical Data, Nursing Documentation, Vital Signs - Medical History PMH: Anxiety, Arthritis, Bronchitis, CAD, Depression, Diabetes (Pt. 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 mechanic, not aware), Fractures (RIGHT ARM), Gastritis, Gall Bladder Disease (s/p cholecystectomy), HTN, Post Traumatic Stress Disorder, Rheumatoid Arthritis, Seizures, Chronic Pain Denies: Chronic Kidney Disease Surgical History: Cholecystectomy Family History: States: Unknown Family Hx - Social History Hx Tobacco Use: No Hx Alcohol Use: Yes Hx Substance Use: No - Immunization History Hx Tetanus Toxoid Vaccination: No Hx Influenza Vaccination: No Hx Pneumococcal Vaccination: No Vital Signs: Last Vital Signs Temp 98 F 10/11/17 04:17 Pulse 69 10/11/17 04:17 Resp 20 10/11/17 04:17 BP 138/66 10/11/17 04:17 Pulse Ox 98 10/11/17 04:17 - [facility] Procedures ALCOHOL DETOXIFICATION (07/04/15) APPLICATION OF SPLINT (03/20/13) CLOSURE SKIN & SUBCUTANEOUS NEC (08/14/13) DETOXIFICATION SERVICES FOR SUBSTANCE ABUSE TREATMENT (03/22/16) ESOPHAGOGASTRODUODENOSCOPY [EGD] W/CLOSED BIOPSY (02/16/15) OTHER GROUP THERAPY (03/12/13) PHYSICAL THERAPY NEC (07/04/15) TETANUS TOXOID ADMINIST (01/19/14) Review Of Systems Psych: Positive for: Other (EtOH intoxication ) Physical Exam - Physical Exam Appears: No Acute Distress, Other (visibly intoxicated ) Skin: Normal Color, Warm, Dry Head: Atraumatic, Normacephalic Eye(s): bilateral: Normal Inspection Oral Mucosa: Moist, Other (alcohol on breath ) Neck: Supple Chest: Symmetrical, No Deformity, No Tenderness Cardiovascular: Rhythm Regular, No Murmur Respiratory: Normal Breath Sounds Extremity: Normal ROM, Capillary Refill (less than 2 seconds ) Neurological/Psych: Other (arousable to touch and verbal stimuli ) Gait: Unsteady ED Course And Treatment O2 Sat by Pulse Oximetry: 100 (on RA) Pulse Ox Interpretation: Normal Medical Decision Making Medical Decision Makin:35 - Patient was drunk, sleeping on the ED, now pt is walking clinically sober and stable enough for d/c (Victoriano Pierson) Disposition - Disposition Disposition Time: 23:00 - Disposition Referrals: [facility] [place] [facility] [Outside] [facility] [place] [Outside] Disposition: HOME/ ROUTINE Condition: STABLE Additional Instructions: return for worsening symptoms. pt reached clinical sobriety prior to discharge with steady gait and clear speech. Forms: [employer] ([place] [employer]) - Clinical Impression Clinical Impression: Alcohol intoxication - Scribe Statement The provider has reviewed the documentation as recorded by the Scribe (Kari Fajardo) - Scribe Statement Provider Attestation: All medical record entries made by the Scribe were at my direction and personally dictated by me. I have reviewed the chart and agree that the record accurately reflects my personal performance of the history, physical exam, medical decision making, and the department course for this patient. I have also personally directed, reviewed, and agree with the discharge instructions and disposition. (Azar Welch) Physician Patient Turnover Patient Signed Over To: Victoriano Pierson Handoff Comments: [id number] pending sobriety
[2017-10-11 04:17] VITALS: BP 138/66; PULSE 69; TEMP 98; O2SAT 98
== END 2017-10-11 04:47 | disposition home or self-care (01) ==
LOC: C.ER 20:42
DX: F10.129 Alcohol abuse with intoxication, unspecified (principal); E11.9 Type 2 diabetes mellitus without complications; I25.10 Atherosclerotic heart disease of native coronary artery without angina pectoris

== ENCOUNTER 2017-10-11 19:30 | Emergency (ER) | payer SELFPAY ==
[2017-10-11 19:30] VITALS: BMI 29.7
--- NOTE | 2017-10-11 21:31 | C.PDOC ---
History Of Present Illness Patient is a 57 y/o male who presents to the ED with a complaint of acute EtOH intoxication. Patient has extensive history of similar ED presentations for the same symptoms. Patient has a PMHx of anxiety, depression, and SI. No other physical complaints at this time. Time Seen by Provider: 10/11/17 20:22 Chief Complaint (Nursing): Substance Abuse History Per: Patient History/Exam Limitations: no limitations Onset/Duration Of Symptoms: Hrs Current Symptoms Are (Timing): Still Present Modifying Factor(s): Alcohol Associated Symptoms: Anxiety, Depression Recent travel outside of the [place]: No Past Medical History Reviewed: Historical Data, Nursing Documentation, Vital Signs Vital Signs: Last Vital Signs Temp 98.2 F 10/11/17 19:46 Pulse 97 H 10/11/17 19:46 Resp 16 10/11/17 19:46 BP 120/90 10/11/17 19:46 Pulse Ox 97 10/11/17 19:46 - Medical History PMH: Anxiety, Arthritis, Bronchitis, CAD, Depression, Diabetes (Pt. did not disclose to job specification writer, not aware), Fractures (RIGHT ARM), Gastritis, Gall Bladder Disease (s/p cholecystectomy), HTN, Post Traumatic Stress Disorder, Rheumatoid Arthritis, Seizures, Chronic Pain Denies: Chronic Kidney Disease Surgical History: Cholecystectomy - [facility] Procedures ALCOHOL DETOXIFICATION (07/04/15) APPLICATION OF SPLINT (03/20/13) CLOSURE SKIN & SUBCUTANEOUS NEC (08/14/13) DETOXIFICATION SERVICES FOR SUBSTANCE ABUSE TREATMENT (03/22/16) ESOPHAGOGASTRODUODENOSCOPY [EGD] W/CLOSED BIOPSY (02/16/15) OTHER GROUP THERAPY (03/12/13) PHYSICAL THERAPY NEC (07/04/15) TETANUS TOXOID ADMINIST (01/19/14) Family History: States: Unknown Family Hx - Social History Hx Tobacco Use: No Hx Alcohol Use: Yes Hx Substance Use: No - Immunization History Hx Tetanus Toxoid Vaccination: No Hx Influenza Vaccination: No Hx Pneumococcal Vaccination: No Review Of Systems Constitutional: Negative for: Fever, Chills Psych: Positive for: Anxiety, Depression Physical Exam - Physical Exam Appears: Well, Non-toxic, No Acute Distress, Other (EtOH on breath) Skin: Normal Color, Warm, Dry Head: Atraumatic, Normacephalic Oral Mucosa: Moist Chest: Symmetrical Cardiovascular: Rhythm Regular, No Murmur Respiratory: Normal Breath Sounds, No Rales, No Rhonchi, No Wheezing Gastrointestinal/Abdominal: Soft, No Tenderness Neurological/Psych: Oriented x3 ED Course And Treatment O2 Sat by Pulse Oximetry: 97 Progress Note: Patient to be discharged upon sobriety. Disposition - Disposition - Scribe Statement The provider has reviewed the documentation as recorded by the Scribe Yamilet Madrigal All medical record entries made by the Scribe were at my direction and personally dictated by me. I have reviewed the chart and agree that the record accurately reflects my personal performance of the history, physical exam, medical decision making, and the department course for this patient. I have also personally directed, reviewed, and agree with the discharge instructions and disposition.
[2017-10-12 02:01] VITALS: BP 135/64; PULSE 100; RESP 20; TEMP 98.5
[2017-10-12 03:17] VITALS: O2SAT 97
== END 2017-10-12 03:10 | disposition home or self-care (01) ==
LOC: C.ER 19:30
DX: F10.20 Alcohol dependence, uncomplicated (principal); E11.9 Type 2 diabetes mellitus without complications; I25.10 Atherosclerotic heart disease of native coronary artery without angina pectoris

== ENCOUNTER 2017-10-12 20:11 | Emergency (ER) | payer OTHER ==
[2017-10-12 20:11] VITALS: BMI 29.7
--- NOTE | 2017-10-12 20:45 | C.PDOC ---
History Of Present Illness 57 year old male with Hx of ETOH abuse presents to the ED intoxicated. Patient has many visits to the ED for similar symptoms in the past. Upon arrival to the ED patient is lethargic, intoxicated, with poor hygiene. Patient denies any injuries, trauma, SI/HI, hallucinations. Time Seen by Provider: 10/12/17 20:42 History Per: Patient History/Exam Limitations: intoxication Onset/Duration Of Symptoms: Hrs Current Symptoms Are (Timing): Still Present Suicide/Self Injury Attempted (Context): None Modifying Factor(s): Alcohol Associated Symptoms: denies: Depression, Suicidal Thoughts, Suicidal Plan Recent travel outside of the [place]: No Additional History Per: Patient Past Medical History Reviewed: Historical Data, Nursing Documentation, Vital Signs Vital Signs: Last Vital Signs Temp 97.9 F 10/13/17 02:42 Pulse 95 H 10/13/17 02:42 Resp 20 10/13/17 02:42 BP 135/85 10/13/17 02:42 Pulse Ox 98 10/13/17 02:42 - Medical History PMH: Anxiety, Arthritis, Bronchitis, CAD, Depression, Diabetes (Pt. 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s functional tester, not aware), Fractures (RIGHT ARM), Gastritis, Gall Bladder Disease (s/p cholecystectomy), HTN, Post Traumatic Stress Disorder, Rheumatoid Arthritis, Seizures, Chronic Pain Denies: Chronic Kidney Disease Surgical History: Cholecystectomy - [facility] Procedures ALCOHOL DETOXIFICATION (07/04/15) APPLICATION OF SPLINT (03/20/13) CLOSURE SKIN & SUBCUTANEOUS NEC (08/14/13) DETOXIFICATION SERVICES FOR SUBSTANCE ABUSE TREATMENT (03/22/16) ESOPHAGOGASTRODUODENOSCOPY [EGD] W/CLOSED BIOPSY (02/16/15) OTHER GROUP THERAPY (03/12/13) PHYSICAL THERAPY NEC (07/04/15) TETANUS TOXOID ADMINIST (01/19/14) Family History: States: Unknown Family Hx - Social History Hx Tobacco Use: No Hx Alcohol Use: Yes Hx Substance Use: No - Immunization History Hx Tetanus Toxoid Vaccination: No Hx Influenza Vaccination: No Hx Pneumococcal Vaccination: No Review Of Systems Constitutional: Negative for: Fever, Chills Cardiovascular: Negative for: Chest Pain, Palpitations Respiratory: Negative for: Cough, Shortness of Breath Gastrointestinal: Negative for: Nausea, Vomiting, Abdominal Pain Skin: Negative for: Rash Neurological: Negative for: Weakness, Numbness Psych: Negative for: Depression, Suicidal ideation Physical Exam - Physical Exam Appears: Non-toxic, No Acute Distress Skin: Normal Color, Warm, Dry Head: Atraumatic, Normacephalic Nose: No Discharge, No Deformity Oral Mucosa: Moist Neck: Normal ROM, Supple Chest: Symmetrical Cardiovascular: Rhythm Regular, No Murmur Respiratory: Normal Breath Sounds, No Rales, No Rhonchi, No Wheezing Gastrointestinal/Abdominal: Soft, No Tenderness Extremity: Normal ROM, No Pedal Edema, No Calf Tenderness, No Swelling Neurological/Psych: Oriented x3 Disposition - Disposition Disposition: HOME/ ROUTINE Disposition Time: 06:00 Condition: IMPROVED - Clinical Impression Clinical Impression: Alcoholism, Alcohol intoxication - Scribe Statement The provider has reviewed the documentation as recorded by the Scribe Woo Brown All medical record entries made by the Scribe were at my direction and personally dictated by me. I have reviewed the chart and agree that the record accurately reflects my personal performance of the history, physical exam, medical decision making, and the department course for this patient. I have also personally directed, reviewed, and agree with the discharge instructions and disposition.
[2017-10-13 02:42] VITALS: RESP 20
[2017-10-13 04:59] VITALS: BP 120/79; PULSE 90; TEMP 98.1; O2SAT 96
== END 2017-10-13 05:29 | disposition home or self-care (01) ==
LOC: SUPCPDRO 20:11 → C.ER 20:11
DX: F10.229 Alcohol dependence with intoxication, unspecified (principal); Y90.9 Presence of alcohol in blood, level not specified

== ENCOUNTER 2017-10-13 18:12 | Emergency (ER) | payer OTHER ==
[2017-10-13 18:37] VITALS: BMI 30.5
[2017-10-13 18:39] VITALS: TEMP 98.2
--- NOTE | 2017-10-13 19:20 | C.PDOC ---
History Of Present Illness Wally Pina is a 57 year old male, with a past medical history of alcohol abuse, who presents to the emergency department intoxicated. Patient is well known in the ED for similar symptoms in the past. Patient appears intoxicated, and with poor hygiene. He denies any injuries, suicidal or homicidal ideation. No further medical complaints. PMD: Fabián Huang Time Seen by Provider: 10/13/17 19:18 Chief Complaint (Nursing): Substance Abuse History Per: Patient History/Exam Limitations: no limitations Onset/Duration Of Symptoms: Days (x1) Current Symptoms Are (Timing): Still Present Suicide/Self Injury Attempted (Context): None Severity: None Pain Scale Rating Of: 0 Associated Symptoms: denies: Suicidal Thoughts, Suicidal Plan Involuntary Hold By: None Recent travel outside of the [place]: No Past Medical History Reviewed: Historical Data, Nursing Documentation, Vital Signs Vital Signs: Last Vital Signs Temp 98.2 F 10/13/17 18:38 Pulse 80 10/13/17 23:36 Resp 18 10/13/17 21:00 BP 147/88 10/13/17 21:00 Pulse Ox 100 10/13/17 23:36 - Medical History PMH: Anxiety, Arthritis, Bronchitis, CAD, Depression, Diabetes (Pt. did not disclose to fiction and nonfiction prose writer, not aware), Fractures (RIGHT ARM), Gastritis, Gall Bladder Disease (s/p cholecystectomy), HTN, Post Traumatic Stress Disorder, Rheumatoid Arthritis, Seizures, Chronic Pain Denies: Chronic Kidney Disease Surgical History: Cholecystectomy - [facility] Procedures ALCOHOL DETOXIFICATION (07/04/15) APPLICATION OF SPLINT (03/20/13) CLOSURE SKIN & SUBCUTANEOUS NEC (08/14/13) DETOXIFICATION SERVICES FOR SUBSTANCE ABUSE TREATMENT (03/22/16) ESOPHAGOGASTRODUODENOSCOPY [EGD] W/CLOSED BIOPSY (02/16/15) OTHER GROUP THERAPY (03/12/13) PHYSICAL THERAPY NEC (07/04/15) TETANUS TOXOID ADMINIST (01/19/14) Family History: States: Unknown Family Hx - Social History Hx Tobacco Use: No Hx Alcohol Use: Yes Hx Substance Use: No - Immunization History Hx Tetanus Toxoid Vaccination: No Hx Influenza Vaccination: No Hx Pneumococcal Vaccination: No Review Of Systems Constitutional: Positive for: Other (ETOH intoxicated) Psych: Negative for: Suicidal ideation (or homicidal ideation) Physical Exam - Physical Exam Skin: Warm, Dry Head: Normacephalic Neck: Normal ROM, Supple Cardiovascular: Rhythm Regular Respiratory: Normal Breath Sounds (clear lungs), No Accessory Muscle Use Gastrointestinal/Abdominal: Soft, No Tenderness Extremity: Normal ROM, No Deformity, No Swelling Neurological/Psych: Normal Speech, Other (Awake and alert) Gait: Steady ED Course And Treatment O2 Sat by Pulse Oximetry: 97 (RA) Pulse Ox Interpretation: Normal Progress Note: Initial Impression: ETOH abuse Reevaluation Time: 01:55 Reassessment Condition: Improved Disposition Counseled Patient/Family Regarding: Studies Performed, Diagnosis, Need For Followup - Disposition Referrals: [facility] at [facility] [Outside] Disposition: HOME/ ROUTINE Disposition Time: 19:18 Condition: FAIR Instructions: Alcohol Intoxication (DC) Forms: [employer] (Greek) - Clinical Impression Clinical Impression: Alcohol intoxication - Scribe Statement Blake Denise Provider Attestation: All medical record entries made by the Scribe were at my direction and personally dictated by me. I have reviewed the chart and agree that the record accurately reflects my personal performance of the history, physical exam, medical decision making, and the department course for this patient. I have also personally directed, reviewed, and agree with the discharge instructions and disposition.
[2017-10-13 21:01] VITALS: BP 147/88; RESP 18
[2017-10-13 23:37] VITALS: PULSE 80
[2017-10-14 01:56] VITALS: O2SAT 97
== END 2017-10-13 23:36 | disposition home or self-care (01) ==
LOC: C.ER 18:12
DX: F10.129 Alcohol abuse with intoxication, unspecified (principal); Y90.9 Presence of alcohol in blood, level not specified

== ENCOUNTER 2017-10-14 16:44 | Emergency (ER) | payer SELFPAY ==
[2017-10-14 16:44] VITALS: BMI 30.5
--- NOTE | 2017-10-14 18:04 | C.PDOC ---
History Of Present Illness Patient LWOBS. Time Seen by Provider: 10/14/17 18:02 Chief Complaint (Nursing): Dizziness/Lightheaded Past Medical History Vital Signs: Last Vital Signs Temp Pulse Resp 20 10/14/17 18:12 BP Pulse Ox - Medical History PMH: Anxiety, Arthritis, Bronchitis, CAD, Depression, Diabetes (Pt. did not disclose to video game script writer, not aware), Fractures (RIGHT ARM), Gastritis, Gall Bladder Disease (s/p cholecystectomy), HTN, Post Traumatic Stress Disorder, Rheumatoid Arthritis, Seizures, Chronic Pain Denies: Chronic Kidney Disease Surgical History: Cholecystectomy - [facility] Procedures ALCOHOL DETOXIFICATION (07/04/15) APPLICATION OF SPLINT (03/20/13) CLOSURE SKIN & SUBCUTANEOUS NEC (08/14/13) DETOXIFICATION SERVICES FOR SUBSTANCE ABUSE TREATMENT (03/22/16) ESOPHAGOGASTRODUODENOSCOPY [EGD] W/CLOSED BIOPSY (02/16/15) OTHER GROUP THERAPY (03/12/13) PHYSICAL THERAPY NEC (07/04/15) TETANUS TOXOID ADMINIST (01/19/14) Family History: States: Unknown Family Hx - Social History Hx Tobacco Use: No Hx Alcohol Use: Yes Hx Substance Use: No - Immunization History Hx Tetanus Toxoid Vaccination: No Hx Influenza Vaccination: No Hx Pneumococcal Vaccination: No Disposition - Disposition Disposition: HOME/ ROUTINE Disposition Time: 18:12 Condition: UNKNOWN Forms: [facility] (Sami) - Clinical Impression Clinical Impression: Patient left without being seen
[2017-10-14 18:12] VITALS: RESP 20
== END 2017-10-14 18:11 | disposition left against medical advice (07) ==
LOC: C.ER 16:44
DX: Z02.89 Encounter for other administrative examinations (principal); R42 Dizziness and giddiness

== ENCOUNTER 2017-10-15 02:12 | Emergency (ER) | payer SELFPAY ==
[2017-10-15 02:12] VITALS: BMI 30.5
--- NOTE | 2017-10-15 02:49 | C.PDOC ---
History Of Present Illness Patient brought in via EMS after he was found intoxicated in public. Denies physical complaints at this time. Time Seen by Provider: 10/15/17 02:48 Chief Complaint (Nursing): Substance Abuse History Per: Patient, EMS History/Exam Limitations: no limitations Onset/Duration Of Symptoms: Hrs Current Symptoms Are (Timing): Still Present Suicide/Self Injury Attempted (Context): None Modifying Factor(s): Alcohol Severity: None Pain Scale Rating Of: 0 Associated Symptoms: denies: Depression, Suicidal Thoughts, Suicidal Plan Involuntary Hold By: None Recent travel outside of the [place]: No Past Medical History Reviewed: Historical Data, Nursing Documentation, Vital Signs Vital Signs: Last Vital Signs Temp 97.9 F 10/15/17 02:35 Pulse 88 10/15/17 02:35 Resp 20 10/15/17 02:35 BP 126/88 10/15/17 02:35 Pulse Ox 97 10/15/17 02:35 - Medical History PMH: Anxiety, Arthritis, Bronchitis, CAD, Depression, Diabetes (Pt. did not disclose to senior medical writer, not aware), Fractures (RIGHT ARM), Gastritis, Gall Bladder Disease (s/p cholecystectomy), HTN, Post Traumatic Stress Disorder, Rheumatoid Arthritis, Seizures, Chronic Pain Surgical History: Cholecystectomy - [facility] Procedures ALCOHOL DETOXIFICATION (07/04/15) APPLICATION OF SPLINT (03/20/13) CLOSURE SKIN & SUBCUTANEOUS NEC (08/14/13) DETOXIFICATION SERVICES FOR SUBSTANCE ABUSE TREATMENT (03/22/16) ESOPHAGOGASTRODUODENOSCOPY [EGD] W/CLOSED BIOPSY (02/16/15) OTHER GROUP THERAPY (03/12/13) PHYSICAL THERAPY NEC (07/04/15) TETANUS TOXOID ADMINIST (01/19/14) Family History: States: No Known Family Hx - Social History Hx Tobacco Use: No Hx Alcohol Use: Yes Hx Substance Use: No - Immunization History Hx Tetanus Toxoid Vaccination: No Hx Influenza Vaccination: No Hx Pneumococcal Vaccination: No Review Of Systems Constitutional: Negative for: Fever, Chills Gastrointestinal: Negative for: Nausea, Vomiting, Diarrhea Physical Exam - Physical Exam Appears: Non-toxic, No Acute Distress, Other (ETOH on breath) Skin: Warm, Dry Head: Normacephalic Oral Mucosa: Moist Chest: Symmetrical, No Tenderness Cardiovascular: Rhythm Regular Respiratory: No Rales, No Rhonchi, No Wheezing Gastrointestinal/Abdominal: Soft, No Tenderness Neurological/Psych: Oriented x3 Disposition Counseled Patient/Family Regarding: Studies Performed, Diagnosis - Disposition Referrals: [facility] [Outside] Disposition: HOME/ ROUTINE Disposition Time: 02:49 Condition: FAIR Instructions: Alcohol Intoxication (DC) Forms: [employer] (German) - Clinical Impression Clinical Impression: Alcohol intoxication, Chronic alcoholism - Scribe Statement The provider has reviewed the documentation as recorded by the Scribjosé miguel Ramirez All medical record entries made by the Rominaibjosé miguel were at my direction and personally dictated by me. I have reviewed the chart and agree that the record accurately reflects my personal performance of the history, physical exam, medical decision making, and the department course for this patient. I have also personally directed, reviewed, and agree with the discharge instructions and disposition.
[2017-10-15 05:54] VITALS: BP 135/86; PULSE 89; RESP 16; TEMP 98; O2SAT 98
== END 2017-10-15 05:54 | disposition home or self-care (01) ==
LOC: C.ER 02:12
DX: F10.229 Alcohol dependence with intoxication, unspecified (principal); E11.9 Type 2 diabetes mellitus without complications; I25.10 Atherosclerotic heart disease of native coronary artery without angina pectoris

== ENCOUNTER 2017-10-15 21:05 | Emergency (ER) | payer SELFPAY ==
[2017-10-15 21:06] VITALS: BMI 30.5
--- NOTE | 2017-10-15 22:12 | C.PDOC ---
History Of Present Illness Patient presents to ED with acute ETOH intoxication. Patient states admits to drinking today and denies any other complaints. Time Seen by Provider: 10/15/17 22:10 Chief Complaint (Nursing): Substance Abuse History Per: Patient History/Exam Limitations: no limitations Onset/Duration Of Symptoms: Hrs Current Symptoms Are (Timing): Still Present Suicide/Self Injury Attempted (Context): None Modifying Factor(s): Alcohol Severity: None Pain Scale Rating Of: 0 Associated Symptoms: denies: Depression, Suicidal Thoughts, Suicidal Plan Involuntary Hold By: None Recent travel outside of the [place]: No Past Medical History Reviewed: Historical Data, Nursing Documentation, Vital Signs Vital Signs: Last Vital Signs Temp 99 F 10/15/17 22:01 Pulse 96 H 10/15/17 22:01 Resp 20 10/15/17 22:01 BP 117/66 10/15/17 22:01 Pulse Ox 95 10/15/17 22:46 - Medical History PMH: Anxiety, Arthritis, Bronchitis, CAD, Depression, Diabetes (Pt. did not disclose to automotive service writer, not aware), Fractures (RIGHT ARM), Gastritis, Gall Bladder Disease (s/p cholecystectomy), HTN, Post Traumatic Stress Disorder, Rheumatoid Arthritis, Seizures, Chronic Pain Surgical History: Cholecystectomy - [facility] Procedures ALCOHOL DETOXIFICATION (07/04/15) APPLICATION OF SPLINT (03/20/13) CLOSURE SKIN & SUBCUTANEOUS NEC (08/14/13) DETOXIFICATION SERVICES FOR SUBSTANCE ABUSE TREATMENT (03/22/16) ESOPHAGOGASTRODUODENOSCOPY [EGD] W/CLOSED BIOPSY (02/16/15) OTHER GROUP THERAPY (03/12/13) PHYSICAL THERAPY NEC (07/04/15) TETANUS TOXOID ADMINIST (01/19/14) Family History: States: No Known Family Hx - Social History Hx Tobacco Use: No Hx Alcohol Use: Yes Hx Substance Use: No - Immunization History Hx Tetanus Toxoid Vaccination: No Hx Influenza Vaccination: No Hx Pneumococcal Vaccination: No Review Of Systems Constitutional: Negative for: Fever, Chills Gastrointestinal: Negative for: Nausea, Vomiting, Diarrhea Physical Exam - Physical Exam Appears: Non-toxic, Other (Awake and alert, ETOH on breath) Skin: Warm, Dry Head: Normacephalic Eye(s): bilateral: Normal Inspection Oral Mucosa: Moist Chest: Symmetrical, No Tenderness Cardiovascular: Rhythm Regular Respiratory: No Rales, No Rhonchi, No Wheezing Gastrointestinal/Abdominal: Soft, No Tenderness Neurological/Psych: Oriented x3 ED Course And Treatment O2 Sat by Pulse Oximetry: 95 (Room air) Pulse Ox Interpretation: Normal Disposition Counseled Patient/Family Regarding: Studies Performed, Diagnosis, Need For Followup - Disposition Referrals: [facility] at [facility] [Outside] Disposition: HOME/ ROUTINE Disposition Time: 22:11 Condition: FAIR Instructions: Alcohol Intoxication (DC) Forms: [employer] (Kinyarwanda) - Clinical Impression Clinical Impression: Alcohol intoxication, Chronic alcoholism - Scribe Statement The provider has reviewed the documentation as recorded by the Scribe Jessenia Rosales All medical record entries made by the Rominaibe were at my direction and personally dictated by me. I have reviewed the chart and agree that the record accurately reflects my personal performance of the history, physical exam, medical decision making, and the department course for this patient. I have also personally directed, reviewed, and agree with the discharge instructions and disposition.
[2017-10-16 04:44] VITALS: BP 125/70; PULSE 92; RESP 18; TEMP 98.5; O2SAT 95
== END 2017-10-16 05:08 | disposition home or self-care (01) ==
LOC: C.ER 21:05
DX: F10.229 Alcohol dependence with intoxication, unspecified (principal); E11.9 Type 2 diabetes mellitus without complications; I25.10 Atherosclerotic heart disease of native coronary artery without angina pectoris

== ENCOUNTER 2017-10-16 18:28 | Emergency (ER) | payer SELFPAY ==
[2017-10-16 18:47] VITALS: BMI 29.7
[2017-10-16] MEDS ORDERED: Albuterol-Ipratrop 3 mg / 0.5 (3 ml) UD IH STA (19:10)
[2017-10-16] MEDS ORDERED: Albuterol 0.083% Inhal Sol (2.5 mg/3 mL) UD IH STA (19:10)
[2017-10-16] MEDS ORDERED: Albuterol 0.083% Inhal Sol (2.5 mg/3 mL) UD ONE (19:17)
[2017-10-16] MEDS ORDERED: Albuterol-Ipratrop 3 mg / 0.5 (3 ml) UD ONE (19:17)
--- NOTE | 2017-10-16 20:14 | C.PDOC ---
History Of Present Illness 57 year old male presents to the ER with acute ETOH intoxication, stating "it's too cold outside" and requesting a place to sleep. Patient also complains of a cough and feeling some chest tightness. Denies fever or other complaints. Time Seen by Provider: 10/16/17 19:00 Chief Complaint (Nursing): Substance Abuse History Per: Patient History/Exam Limitations: no limitations Onset/Duration Of Symptoms: Hrs Current Symptoms Are (Timing): Still Present Suicide/Self Injury Attempted (Context): None Modifying Factor(s): Alcohol Associated Symptoms: denies: Depression, Suicidal Thoughts, Suicidal Plan Involuntary Hold By: None Recent travel outside of the [place]: No Past Medical History Reviewed: Historical Data, Nursing Documentation, Vital Signs Vital Signs: Last Vital Signs Temp 97.9 F 10/16/17 18:46 Pulse 100 H 10/16/17 23:31 Resp 24 10/16/17 23:31 BP 143/95 H 10/16/17 18:46 Pulse Ox 93 L 10/16/17 23:59 - Medical History PMH: Anxiety, Arthritis, Bronchitis, CAD, Depression, 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), Fractures (RIGHT ARM), Gastritis, Gall Bladder Disease (s/p cholecystectomy), HTN, Post Traumatic Stress Disorder, Rheumatoid Arthritis, Seizures, Chronic Pain Surgical History: Cholecystectomy - [facility] Procedures ALCOHOL DETOXIFICATION (07/04/15) APPLICATION OF SPLINT (03/20/13) CLOSURE SKIN & SUBCUTANEOUS NEC (08/14/13) DETOXIFICATION SERVICES FOR SUBSTANCE ABUSE TREATMENT (03/22/16) ESOPHAGOGASTRODUODENOSCOPY [EGD] W/CLOSED BIOPSY (02/16/15) OTHER GROUP THERAPY (03/12/13) PHYSICAL THERAPY NEC (07/04/15) TETANUS TOXOID ADMINIST (01/19/14) Family History: States: Unknown Family Hx - Social History Hx Tobacco Use: No Hx Alcohol Use: Yes Hx Substance Use: No - Immunization History Hx Tetanus Toxoid Vaccination: No Hx Influenza Vaccination: No Hx Pneumococcal Vaccination: No Review Of Systems Constitutional: Negative for: Fever, Chills Respiratory: Positive for: Cough, Wheezing Gastrointestinal: Negative for: Nausea, Vomiting Physical Exam - Physical Exam Appears: Non-toxic, Other (ETOH on breath) Skin: Normal Color, Warm, Dry Head: Atraumatic, Normacephalic Eye(s): bilateral: Normal Inspection Oral Mucosa: Moist Chest: Symmetrical, No Tenderness Cardiovascular: Rhythm Regular Respiratory: No Rales, No Rhonchi, Wheezing (Throughout) Gastrointestinal/Abdominal: Soft, No Tenderness Neurological/Psych: Oriented x3, Normal Speech ED Course And Treatment O2 Sat by Pulse Oximetry: 93 Progress Note: EKG ordered. Albuterol nebulizer treatment administered. Reevaluation Time: 23:59 Reassessment Condition: Improved (sleeping quietly) Disposition - Disposition Disposition Time: 00:26 Condition: STABLE - Clinical Impression Clinical Impression: Alcohol intoxication - Scribe Statement The provider has reviewed the documentation as recorded by the Scribe Fabián Ramirez All medical record entries made by the Scribe were at my direction and personally dictated by me. I have reviewed the chart and agree that the record accurately reflects my personal performance of the history, physical exam, medical decision making, and the department course for this patient. I have also personally directed, reviewed, and agree with the discharge instructions and disposition. Physician Patient Turnover Patient Signed Over To: Radha Sow Handoff Comments: pending sobriety
[2017-10-17 06:06] VITALS: BP 148/74; PULSE 74; RESP 18; TEMP 98.3; O2SAT 98
== END 2017-10-17 05:59 | disposition home or self-care (01) ==
LOC: C.ER 18:28
DX: F10.129 Alcohol abuse with intoxication, unspecified (principal); E11.9 Type 2 diabetes mellitus without complications; I25.10 Atherosclerotic heart disease of native coronary artery without angina pectoris

== ENCOUNTER 2017-10-17 20:19 | Emergency (ER) | payer SELFPAY ==
[2017-10-17 20:20] VITALS: BMI 29.7
--- NOTE | 2017-10-17 21:07 | C.PDOC ---
History Of Present Illness 57 y/o male with Hx of depression, anxiety, and alcoholism presents to the ED with a complaint of being cold. Patient has extensive history of ED presentations for alcohol intoxication/homelessness, etc. The patient denies physical complaints at this time. Time Seen by Provider: 10/17/17 20:43 Chief Complaint (Nursing): Substance Abuse History Per: Patient History/Exam Limitations: no limitations Recent travel outside of the [place]: No Past Medical History Reviewed: Historical Data, Nursing Documentation, Vital Signs Vital Signs: Last Vital Signs Temp 98 F 10/17/17 21:33 Pulse 82 10/17/17 21:33 Resp 18 10/17/17 21:33 BP 134/82 10/17/17 21:33 Pulse Ox 96 10/18/17 00:36 - Medical History PMH: Anxiety, Arthritis, Bronchitis, CAD, Depression, Diabetes (Pt. did not disclose to report writer, not aware), Fractures (RIGHT ARM), Gastritis, Gall Bladder Disease (s/p cholecystectomy), HTN, Post Traumatic Stress Disorder, Rheumatoid Arthritis, Seizures, Chronic Pain Surgical History: Cholecystectomy - [facility] Procedures ALCOHOL DETOXIFICATION (07/04/15) APPLICATION OF SPLINT (03/20/13) CLOSURE SKIN & SUBCUTANEOUS NEC (08/14/13) DETOXIFICATION SERVICES FOR SUBSTANCE ABUSE TREATMENT (03/22/16) ESOPHAGOGASTRODUODENOSCOPY [EGD] W/CLOSED BIOPSY (02/16/15) OTHER GROUP THERAPY (03/12/13) PHYSICAL THERAPY NEC (07/04/15) TETANUS TOXOID ADMINIST (01/19/14) Family History: States: No Known Family Hx - Social History Hx Tobacco Use: No Hx Alcohol Use: Yes Hx Substance Use: No - Immunization History Hx Tetanus Toxoid Vaccination: No Hx Influenza Vaccination: No Hx Pneumococcal Vaccination: No Review Of Systems Except As Marked, All Systems Reviewed And Found Negative. Constitutional: Negative for: Fever, Chills Cardiovascular: Negative for: Chest Pain, Palpitations Respiratory: Negative for: Cough, Shortness of Breath Gastrointestinal: Negative for: Nausea, Vomiting, Abdominal Pain, Diarrhea Physical Exam - Physical Exam Appears: Well, Non-toxic, No Acute Distress Skin: Normal Color, Warm, Dry Head: Atraumatic, Normacephalic Eye(s): bilateral: Normal Inspection Oral Mucosa: Moist Chest: Symmetrical Cardiovascular: Rhythm Regular Respiratory: Normal Breath Sounds, No Rales, No Rhonchi, No Wheezing Gastrointestinal/Abdominal: Normal Exam, Bowel Sounds, Soft, No Tenderness Neurological/Psych: Oriented x3 ED Course And Treatment O2 Sat by Pulse Oximetry: 96 (room air) Pulse Ox Interpretation: Normal Progress Note: Patient discharged with taxi to homeless [facility]. Disposition Counseled Patient/Family Regarding: Studies Performed, Diagnosis, Need For Followup - Disposition Referrals: [facility] at [facility] [Outside] Fabián Huang MD [Staff Provider] - Disposition: HOME/ ROUTINE Disposition Time: 21:10 Condition: STABLE Forms: [facility] (Hebrew), General Discharge Instructions Print Language: ARABIC - Clinical Impression Clinical Impression: Homelessness - Scribe Statement The provider has reviewed the documentation as recorded by the Scribe Yamilet Madrigal All medical record entries made by the Scribe were at my direction and personally dictated by me. I have reviewed the chart and agree that the record accurately reflects my personal performance of the history, physical exam, medical decision making, and the department course for this patient. I have also personally directed, reviewed, and agree with the discharge instructions and disposition.
[2017-10-17 21:34] VITALS: BP 134/82; PULSE 82; RESP 18; TEMP 98
[2017-10-18 00:35] VITALS: O2SAT 96
== END 2017-10-17 21:25 | disposition home or self-care (01) ==
LOC: C.ER 20:19
DX: Z59.0 Homelessness (principal)

== ENCOUNTER 2017-10-17 22:43 | Emergency (ER) | payer SELFPAY ==
[2017-10-17 22:44] VITALS: BMI 29.7
--- NOTE | 2017-10-18 00:02 | C.PDOC ---
History Of Present Illness 57 y/o male presents to the ED for evaluation of EtOH intoxication. Patient has extensive history of similar ED presentations. He denies falls/injuries, and admits to drinking alcohol today. Time Seen by Provider: 10/17/17 23:11 Chief Complaint (Nursing): Medical Clearance History Per: Patient History/Exam Limitations: intoxication Onset/Duration Of Symptoms: Persistent Severity: Moderate Recent travel outside of the [place]: No Past Medical History Reviewed: Historical Data, Nursing Documentation, Vital Signs Vital Signs: Last Vital Signs Temp 97.9 F 10/18/17 05:54 Pulse 99 H 10/18/17 05:54 Resp 20 10/18/17 05:54 BP 133/82 10/18/17 05:54 Pulse Ox 97 10/18/17 05:54 - Medical History PMH: Anxiety, Arthritis, Bronchitis, CAD, Depression, Diabetes (Pt. 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 aware), Fractures (RIGHT ARM), Gastritis, Gall Bladder Disease (s/p cholecystectomy), HTN, Post Traumatic Stress Disorder, Rheumatoid Arthritis, Seizures, Chronic Pain Surgical History: Cholecystectomy - [facility] Procedures ALCOHOL DETOXIFICATION (07/04/15) APPLICATION OF SPLINT (03/20/13) CLOSURE SKIN & SUBCUTANEOUS NEC (08/14/13) DETOXIFICATION SERVICES FOR SUBSTANCE ABUSE TREATMENT (03/22/16) ESOPHAGOGASTRODUODENOSCOPY [EGD] W/CLOSED BIOPSY (02/16/15) OTHER GROUP THERAPY (03/12/13) PHYSICAL THERAPY NEC (07/04/15) TETANUS TOXOID ADMINIST (01/19/14) Family History: States: No Known Family Hx - Social History Hx Tobacco Use: No Hx Alcohol Use: Yes Hx Substance Use: No - Immunization History Hx Tetanus Toxoid Vaccination: No Hx Influenza Vaccination: No Hx Pneumococcal Vaccination: No Review Of Systems Except As Marked, All Systems Reviewed And Found Negative. Constitutional: Negative for: Fever, Chills Cardiovascular: Negative for: Chest Pain Respiratory: Negative for: Shortness of Breath Gastrointestinal: Negative for: Abdominal Pain Neurological: Negative for: Headache Physical Exam - Physical Exam Appears: Well, Non-toxic, No Acute Distress, Unkempt, Other (EtOH on breath) Skin: Normal Color, Warm, Dry Head: Atraumatic, Normacephalic Eye(s): bilateral: Normal Inspection Oral Mucosa: Moist Cardiovascular: Rhythm Regular Respiratory: Normal Breath Sounds, No Rales, No Rhonchi, No Wheezing Extremity: Normal ROM, No Tenderness Extremity: Bilateral: Atraumatic, Normal Color And Temperature, Normal ROM Neurological/Psych: Other (awake, alert, moving all 4 extremities spontaneously) ED Course And Treatment O2 Sat by Pulse Oximetry: 96 (room air) Pulse Ox Interpretation: Normal Progress Note: Patient pending sobriety. 1:00am- Patieny arousable to verbal stimuli, in no distress. Pending sobriety. Reevaluation Time: 06:00 Reassessment Condition: Improved (Patient is AA)x3, ambulating normally in ED. He is clinically sober at this time, will discharge.) Disposition Counseled Patient/Family Regarding: Studies Performed, Diagnosis, Need For Followup - Disposition Referrals: [facility] [Outside] Disposition: HOME/ ROUTINE Disposition Time: 06:00 Condition: STABLE Forms: [facility] (Sami), General Discharge Instructions Print Language: KYRGYZ - Clinical Impression Clinical Impression: Homelessness, Alcohol intoxication - Scribe Statement The provider has reviewed the documentation as recorded by the Scribjosé miguel Madrigal All medical record entries made by the Scribe were at my direction and personally dictated by me. I have reviewed the chart and agree that the record accurately reflects my personal performance of the history, physical exam, medical decision making, and the department course for this patient. I have also personally directed, reviewed, and agree with the discharge instructions and disposition.
[2017-10-18 05:55] VITALS: BP 133/82; PULSE 99; RESP 20; TEMP 97.9
[2017-10-18 19:51] VITALS: O2SAT 96
== END 2017-10-18 06:13 | disposition home or self-care (01) ==
LOC: C.ER 22:43
DX: F10.129 Alcohol abuse with intoxication, unspecified (principal); Z59.0 Homelessness

== ENCOUNTER 2017-10-18 22:06 | Emergency (ER) | payer SELFPAY ==
[2017-10-18 22:07] VITALS: BMI 29.7
[2017-10-18 22:45] VITALS: TEMP 97.2
--- NOTE | 2017-10-18 22:57 | C.PDOC ---
History Of Present Illness 57 year old male presents to the ER with acute ETOH intoxication. Denies physical complaints at this time. Time Seen by Provider: 10/18/17 22:39 Chief Complaint (Nursing): Substance Abuse History Per: Patient History/Exam Limitations: no limitations Onset/Duration Of Symptoms: Hrs Current Symptoms Are (Timing): Still Present Suicide/Self Injury Attempted (Context): None Modifying Factor(s): Alcohol Severity: Moderate Associated Symptoms: denies: Depression, Suicidal Thoughts, Suicidal Plan Involuntary Hold By: Emergency Physician Past Medical History Reviewed: Historical Data, Nursing Documentation, Vital Signs Vital Signs: Last Vital Signs Temp 97.2 F L 10/18/17 22:42 Pulse 75 10/19/17 06:05 Resp 18 10/19/17 06:05 BP 128/71 10/19/17 06:05 Pulse Ox 99 10/19/17 06:05 - Medical History PMH: Anxiety, Arthritis, Bronchitis, CAD, Depression, Diabetes (Pt. did not disclose to science writer, not aware), Fractures (RIGHT ARM), Gastritis, Gall Bladder Disease (s/p cholecystectomy), HTN, Post Traumatic Stress Disorder, Rheumatoid Arthritis, Seizures, Chronic Pain Surgical History: Cholecystectomy - [facility] Procedures ALCOHOL DETOXIFICATION (07/04/15) APPLICATION OF SPLINT (03/20/13) CLOSURE SKIN & SUBCUTANEOUS NEC (08/14/13) DETOXIFICATION SERVICES FOR SUBSTANCE ABUSE TREATMENT (03/22/16) ESOPHAGOGASTRODUODENOSCOPY [EGD] W/CLOSED BIOPSY (02/16/15) OTHER GROUP THERAPY (03/12/13) PHYSICAL THERAPY NEC (07/04/15) TETANUS TOXOID ADMINIST (01/19/14) Family History: States: No Known Family Hx - Social History Hx Tobacco Use: No Hx Alcohol Use: Yes Hx Substance Use: No - Immunization History Hx Tetanus Toxoid Vaccination: No Hx Influenza Vaccination: No Hx Pneumococcal Vaccination: No Review Of Systems Except As Marked, All Systems Reviewed And Found Negative. Constitutional: Positive for: Other (ETOH intoxication) Cardiovascular: Negative for: Chest Pain Respiratory: Negative for: Shortness of Breath Gastrointestinal: Negative for: Nausea, Vomiting, Abdominal Pain, Diarrhea Psych: Positive for: Other (alcohol intoxication) Physical Exam - Physical Exam Appears: Well, Non-toxic, No Acute Distress, Unkempt (malodorous), Other (ETOH on breath) Skin: Normal Color, Warm, Dry Head: Atraumatic, Normacephalic Eye(s): bilateral: Normal Inspection Oral Mucosa: Moist Cardiovascular: Rhythm Regular Respiratory: Normal Breath Sounds, No Rales, No Rhonchi, No Wheezing Gastrointestinal/Abdominal: Normal Exam, Bowel Sounds, Soft, No Tenderness Extremity: Normal ROM Extremity: Bilateral: Atraumatic, Normal Color And Temperature, Normal ROM Neurological/Psych: Other (awkae, alert, intoxicated, moving all 4 extremities spontaneously) ED Course And Treatment O2 Sat by Pulse Oximetry: 97 (Room air) Pulse Ox Interpretation: Normal Progress Note: Accucheck ordered and reviewed - WML at 133. Patient pending sobriety. 1:35am- Patient arousable to verbal stimuli, intoxicated but in no distress. 5:45am- Patient is AAOx3, ambulating normally in ED. He is clinically sober at this time, will discharge. Disposition Counseled Patient/Family Regarding: Studies Performed, Diagnosis, Need For Followup - Disposition Referrals: Fabián Hunag MD [Staff Provider] - Disposition: HOME/ ROUTINE Disposition Time: 05:50 Condition: STABLE Instructions: Alcohol Intoxication (ED) Forms: [employer] (Slovenian) Print Language: MALDIVIAN - POA Present On Arrival: None - Clinical Impression Clinical Impression: Alcohol intoxication - Scribe Statement The provider has reviewed the documentation as recorded by the Scribe Fabián Ramirez All medical record entries made by the Scribe were at my direction and personally dictated by me. I have reviewed the chart and agree that the record accurately reflects my personal performance of the history, physical exam, medical decision making, and the department course for this patient. I have also personally directed, reviewed, and agree with the discharge instructions and disposition.
[2017-10-19 07:02] VITALS: BP 128/71; PULSE 75; RESP 18
[2017-10-21 07:34] VITALS: O2SAT 97
== END 2017-10-19 06:05 | disposition home or self-care (01) ==
LOC: C.ER 22:06
DX: F10.129 Alcohol abuse with intoxication, unspecified (principal); Y90.9 Presence of alcohol in blood, level not specified

== ENCOUNTER 2017-10-19 21:14 | Emergency (ER) | payer SELFPAY ==
[2017-10-19 21:15] VITALS: BMI 29.7
--- NOTE | 2017-10-19 21:34 | C.PDOC ---
History Of Present Illness 57 year old homeless male presents to the ED intoxicated and looking for a place to sleep. Patient has prior history of ETOH abuse and upon arrival is not able to walk without assistance. Patient denies SI/HI, hallucinations, other physical complaints. Time Seen by Provider: 10/19/17 21:33 History Per: Patient History/Exam Limitations: intoxication Onset/Duration Of Symptoms: Hrs Current Symptoms Are (Timing): Still Present Suicide/Self Injury Attempted (Context): None Modifying Factor(s): Alcohol Associated Symptoms: denies: Depression, Suicidal Thoughts, Suicidal Plan Involuntary Hold By: None Recent travel outside of the [place]: No Additional History Per: Patient Past Medical History Reviewed: Historical Data, Nursing Documentation, Vital Signs Vital Signs: Last Vital Signs Temp 98.1 F 10/20/17 00:41 Pulse 88 10/20/17 03:57 Resp 18 10/20/17 03:57 BP 125/74 10/20/17 03:57 Pulse Ox 96 10/20/17 03:57 - Medical History PMH: Anxiety, Arthritis, Bronchitis, CAD, Depression, Diabetes (Pt. did not disclose to ticket writer, not aware), Fractures (RIGHT ARM), Gastritis, Gall Bladder Disease (s/p cholecystectomy), HTN, Post Traumatic Stress Disorder, Rheumatoid Arthritis, Seizures, Chronic Pain Denies: Chronic Kidney Disease Surgical History: Cholecystectomy - [facility] Procedures ALCOHOL DETOXIFICATION (07/04/15) APPLICATION OF SPLINT (03/20/13) CLOSURE SKIN & SUBCUTANEOUS NEC (08/14/13) DETOXIFICATION SERVICES FOR SUBSTANCE ABUSE TREATMENT (03/22/16) ESOPHAGOGASTRODUODENOSCOPY [EGD] W/CLOSED BIOPSY (02/16/15) OTHER GROUP THERAPY (03/12/13) PHYSICAL THERAPY NEC (07/04/15) TETANUS TOXOID ADMINIST (01/19/14) Family History: States: Unknown Family Hx - Social History Hx Tobacco Use: No Hx Alcohol Use: Yes Hx Substance Use: No - Immunization History Hx Tetanus Toxoid Vaccination: No Hx Influenza Vaccination: No Hx Pneumococcal Vaccination: No Review Of Systems Constitutional: Negative for: Fever, Chills Cardiovascular: Negative for: Chest Pain, Palpitations Respiratory: Negative for: Cough, Shortness of Breath Gastrointestinal: Negative for: Nausea, Vomiting, Abdominal Pain Skin: Negative for: Rash Neurological: Negative for: Weakness, Numbness Psych: Negative for: Depression, Suicidal ideation Physical Exam - Physical Exam Appears: Non-toxic, Unkempt, Other (Intoxicated) Skin: Warm, Dry Head: Normacephalic Nose: No Discharge, No Deformity Oral Mucosa: Moist Neck: Normal ROM, Supple Chest: Symmetrical Cardiovascular: Rhythm Regular, No Murmur Respiratory: No Decreased Breath Sounds, No Rales, No Rhonchi, No Wheezing Gastrointestinal/Abdominal: Soft, No Tenderness, No Guarding, No Rebound Extremity: Normal ROM, No Pedal Edema, No Calf Tenderness, No Deformity, No Swelling Neurological/Psych: Oriented x3 ED Course And Treatment O2 Sat by Pulse Oximetry: 97 (On RA) Pulse Ox Interpretation: Normal Progress Note: Patient is awake, clinically sober and has a stable gait. He is stable enough for d/c. Reevaluation Time: 05:30 Reassessment Condition: Improved Disposition Counseled Patient/Family Regarding: Studies Performed, Diagnosis, Need For Followup - Disposition Referrals: [facility] [Outside] Disposition: HOME/ ROUTINE Disposition Time: 21:33 Condition: FAIR Instructions: Alcohol Intoxication (DC) - Clinical Impression Clinical Impression: Alcohol intoxication, Chronic alcoholism - Scribe Statement The provider has reviewed the documentation as recorded by the Scribe Woo Brown All medical record entries made by the Scribe were at my direction and personally dictated by me. I have reviewed the chart and agree that the record accurately reflects my personal performance of the history, physical exam, medical decision making, and the department course for this patient. I have also personally directed, reviewed, and agree with the discharge instructions and disposition.
[2017-10-20 00:42] VITALS: RESP 18
[2017-10-20 05:51] VITALS: BP 131/80; PULSE 87; TEMP 98; O2SAT 95
== END 2017-10-20 06:03 | disposition home or self-care (01) ==
LOC: C.ER 21:14
DX: F10.229 Alcohol dependence with intoxication, unspecified (principal); Z59.0 Homelessness

== ENCOUNTER 2017-10-20 18:39 | Emergency (ER) | payer SELFPAY ==
[2017-10-20 18:39] VITALS: BMI 29.7
--- NOTE | 2017-10-20 19:24 | C.PDOC ---
History Of Present Illness 57 year old homeless male presents to the ED intoxicated and looking for a place to sleep. Patient has prior history of ETOH abuse, ambulatory in the ED with ETOH on his breath. Patient denies SI/HI, hallucinations, other physical complaints. Time Seen by Provider: 10/20/17 19:22 Chief Complaint (Nursing): Substance Abuse History Per: Patient History/Exam Limitations: intoxication Onset/Duration Of Symptoms: Hrs Current Symptoms Are (Timing): Still Present Suicide/Self Injury Attempted (Context): None Modifying Factor(s): Alcohol Associated Symptoms: denies: Depression, Suicidal Thoughts, Suicidal Plan Involuntary Hold By: None Recent travel outside of the [place]: No Additional History Per: Patient Past Medical History Reviewed: Historical Data, Nursing Documentation, Vital Signs Vital Signs: Last Vital Signs Temp 98.1 F 10/21/17 00:22 Pulse 88 10/21/17 00:22 Resp 18 10/21/17 00:22 BP 117/76 10/21/17 00:22 Pulse Ox 96 10/21/17 00:22 - Medical History PMH: Anxiety, Arthritis, Bronchitis, CAD, Depression, Diabetes (Pt. did not disclose to proposal lead writer, not aware), Fractures (RIGHT ARM), Gastritis, Gall Bladder Disease (s/p cholecystectomy), HTN, Post Traumatic Stress Disorder, Rheumatoid Arthritis, Seizures, Chronic Pain Denies: Chronic Kidney Disease Surgical History: Cholecystectomy - [facility] Procedures ALCOHOL DETOXIFICATION (07/04/15) APPLICATION OF SPLINT (03/20/13) CLOSURE SKIN & SUBCUTANEOUS NEC (08/14/13) DETOXIFICATION SERVICES FOR SUBSTANCE ABUSE TREATMENT (03/22/16) ESOPHAGOGASTRODUODENOSCOPY [EGD] W/CLOSED BIOPSY (02/16/15) OTHER GROUP THERAPY (03/12/13) PHYSICAL THERAPY NEC (07/04/15) TETANUS TOXOID ADMINIST (01/19/14) Family History: States: Unknown Family Hx - Social History Hx Tobacco Use: No Hx Alcohol Use: Yes Hx Substance Use: No - Immunization History Hx Tetanus Toxoid Vaccination: No Hx Influenza Vaccination: No Hx Pneumococcal Vaccination: No Review Of Systems Except As Marked, All Systems Reviewed And Found Negative. Psych: Negative for: Depression, Suicidal ideation Physical Exam - Physical Exam Additional Physical Exam Comments: Constitutional: No acute distress. Head: Normocephalic. Atraumatic. Eyes: PERRL. ENT: Moist mucous membranes. Neck: Supple. Cardiovascular: Regular rate. Radial pulse 2+ bilaterally. Chest: No tenderness. Respiratory: Clear to auscultation bilaterally. GI: Soft. Nontender. Nondistended. Back: No CVA tenderness. Musculoskeletal: No tenderness or swelling of extremities. Skin: No rash. Neurologic: Alert, no focal deficit. ED Course And Treatment O2 Sat by Pulse Oximetry: 99 (On RA) Pulse Ox Interpretation: Normal Medical Decision Making Medical Decision Making: Will sign out to ED night team pending sobriety. Disposition - Disposition Disposition Time: 00:23 Condition: STABLE Forms: [employer] (Moroccan) - Clinical Impression Clinical Impression: Alcohol intoxication - Scribe Statement The provider has reviewed the documentation as recorded by the Scribe Woo Brown All medical record entries made by the Scribe were at my direction and personally dictated by me. I have reviewed the chart and agree that the record accurately reflects my personal performance of the history, physical exam, medical decision making, and the department course for this patient. I have also personally directed, reviewed, and agree with the discharge instructions and disposition.
[2017-10-21 06:56] VITALS: BP 146/95; PULSE 84; RESP 20; TEMP 96.4; O2SAT 94
== END 2017-10-21 06:51 | disposition home or self-care (01) ==
LOC: C.ER 18:39
DX: F10.129 Alcohol abuse with intoxication, unspecified (principal); Y90.9 Presence of alcohol in blood, level not specified

== ENCOUNTER 2017-10-21 17:59 | Emergency (ER) | payer OTHER ==
[2017-10-21 17:59] VITALS: BMI 29.7
[2017-10-21 18:28] VITALS: BP 134/84; PULSE 84; RESP 20; TEMP 97.6; O2SAT 98
--- NOTE | 2017-10-21 18:38 | C.PDOC ---
History Of Present Illness 57 year old male with a Hx of chronic ETOH abuse presents to the ER with acute ETOH intoxication and requesting a place to spend the night. Denies physical complaints at this time. Time Seen by Provider: 10/21/17 18:17 Chief Complaint (Nursing): Substance Abuse History Per: Patient History/Exam Limitations: no limitations Onset/Duration Of Symptoms: Hrs Current Symptoms Are (Timing): Still Present Suicide/Self Injury Attempted (Context): None Modifying Factor(s): Alcohol Associated Symptoms: denies: Depression, Suicidal Thoughts, Suicidal Plan Involuntary Hold By: None Recent travel outside of the [place]: No Past Medical History Reviewed: Historical Data, Nursing Documentation, Vital Signs Vital Signs: Last Vital Signs Temp 97.6 F 10/21/17 18:15 Pulse 84 10/21/17 18:15 Resp 20 10/21/17 18:15 BP 134/84 10/21/17 18:15 Pulse Ox 98 10/21/17 18:47 - Medical History PMH: Anxiety, Arthritis, Bronchitis, CAD, Depression, Diabetes (Pt. 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 writer, not aware), Fractures (RIGHT ARM), Gastritis, Gall Bladder Disease (s/p cholecystectomy), HTN, Post Traumatic Stress Disorder, Rheumatoid Arthritis, Seizures, Chronic Pain Surgical History: Cholecystectomy - [facility] Procedures ALCOHOL DETOXIFICATION (07/04/15) APPLICATION OF SPLINT (03/20/13) CLOSURE SKIN & SUBCUTANEOUS NEC (08/14/13) DETOXIFICATION SERVICES FOR SUBSTANCE ABUSE TREATMENT (03/22/16) ESOPHAGOGASTRODUODENOSCOPY [EGD] W/CLOSED BIOPSY (02/16/15) OTHER GROUP THERAPY (03/12/13) PHYSICAL THERAPY NEC (07/04/15) TETANUS TOXOID ADMINIST (01/19/14) Family History: States: Unknown Family Hx - Social History Hx Tobacco Use: No Hx Alcohol Use: Yes Hx Substance Use: No - Immunization History Hx Tetanus Toxoid Vaccination: No Hx Influenza Vaccination: No Hx Pneumococcal Vaccination: No Review Of Systems Except As Marked, All Systems Reviewed And Found Negative. Constitutional: Negative for: Fever, Chills Gastrointestinal: Negative for: Abdominal Pain Physical Exam - Physical Exam Additional Physical Exam Comments: Constitutional: No acute distress. ETOH on breath. Head: Normocephalic. Atraumatic. Eyes: PERRL. ENT: Moist mucous membranes. Neck: Supple. Cardiovascular: Regular rate. Radial pulses 2+ bilaterally. Chest: No tenderness. Respiratory: Clear to auscultation bilaterally. GI: Soft. Nontender. Nondistended. Back: No CVA tenderness. Musculoskeletal: No tenderness or swelling of extremities. Skin: No rash. Neurologic: Alert, no focal deficit. ED Course And Treatment O2 Sat by Pulse Oximetry: 98 Medical Decision Making Medical Decision Making: The weather is currently 18 F and will reach a low of 13 F; patient will be kept until clinically sober and given refuge through the night due to hostile weather conditions. Patient wishes to leave at 926pm, states he will go to his sister's home for warmth. Disposition - Disposition Disposition: HOME/ ROUTINE Disposition Time: 21:26 Condition: STABLE Instructions: Acute Hypothermia (ED) Forms: [facility] (Swedish) - Clinical Impression Clinical Impression: Alcohol intoxication - Scribe Statement The provider has reviewed the documentation as recorded by the Scribe Fabián Ramirez
== END 2017-10-21 21:43 | disposition home or self-care (01) ==
LOC: C.ER 17:59
DX: F10.129 Alcohol abuse with intoxication, unspecified (principal); E11.9 Type 2 diabetes mellitus without complications; I25.10 Atherosclerotic heart disease of native coronary artery without angina pectoris

== ENCOUNTER 2017-10-22 00:08 | Emergency (ER) | payer SELFPAY ==
[2017-10-22 00:08] VITALS: BMI 29.7
--- NOTE | 2017-10-22 02:31 | C.PDOC ---
History Of Present Illness 57 year old male presents to the ED with acute alcohol intoxication. Patient was seen in this ED earlier today for same complaint and eloped. Patient returns to the ED, appearing more intoxicated than before, stating he needs a place to sleep for the night. This patient is familiar to this ED and has had many prior evaluations concerning alcohol intoxication. He has no physical complaints at this time. Time Seen by Provider: 10/22/17 00:50 Chief Complaint (Nursing): Substance Abuse History Per: Patient History/Exam Limitations: no limitations Onset/Duration Of Symptoms: Unknown Current Symptoms Are (Timing): Still Present Suicide/Self Injury Attempted (Context): None Modifying Factor(s): Alcohol Associated Symptoms: denies: Suicidal Thoughts, Suicidal Plan Involuntary Hold By: None Recent travel outside of the [place]: No Additional History Per: Patient Past Medical History Reviewed: Historical Data, Nursing Documentation, Vital Signs Vital Signs: Last Vital Signs Temp 97.9 F 10/22/17 03:31 Pulse 72 10/22/17 03:31 Resp 18 10/22/17 03:31 BP 128/78 10/22/17 03:31 Pulse Ox 97 10/22/17 03:31 - Medical History PMH: Anxiety, Arthritis, Bronchitis, CAD, Depression, Diabetes (Pt. did not disclose to staff writer, not aware), Fractures (RIGHT ARM), Gastritis, Gall Bladder Disease (s/p cholecystectomy), HTN, Post Traumatic Stress Disorder, Rheumatoid Arthritis, Seizures, Chronic Pain Denies: Chronic Kidney Disease Surgical History: Cholecystectomy - [facility] Procedures ALCOHOL DETOXIFICATION (07/04/15) APPLICATION OF SPLINT (03/20/13) CLOSURE SKIN & SUBCUTANEOUS NEC (08/14/13) DETOXIFICATION SERVICES FOR SUBSTANCE ABUSE TREATMENT (03/22/16) ESOPHAGOGASTRODUODENOSCOPY [EGD] W/CLOSED BIOPSY (02/16/15) OTHER GROUP THERAPY (03/12/13) PHYSICAL THERAPY NEC (07/04/15) TETANUS TOXOID ADMINIST (01/19/14) Family History: States: Unknown Family Hx - Social History Hx Tobacco Use: No Hx Alcohol Use: Yes Hx Substance Use: No - Immunization History Hx Tetanus Toxoid Vaccination: No Hx Influenza Vaccination: No Hx Pneumococcal Vaccination: No Review Of Systems Psych: Positive for: Other (EtOH intoxication ) Physical Exam - Physical Exam Appears: Non-toxic, No Acute Distress, Other (visibly intoxicated ) Skin: Normal Color, Warm, Dry Head: Atraumatic, Normacephalic Eye(s): bilateral: Normal Inspection Oral Mucosa: Moist, Other (alcohol on breath ) Neck: Supple Chest: Symmetrical, No Deformity, No Tenderness Cardiovascular: Rhythm Regular, No Murmur Respiratory: Normal Breath Sounds, No Rales, No Rhonchi, No Wheezing Extremity: Normal ROM, Capillary Refill (less than 2 seconds ) Neurological/Psych: Other (arousable to touch and verbal stimuli ) Gait: Unsteady ED Course And Treatment O2 Sat by Pulse Oximetry: 97 Reevaluation Time: 06:00 Reassessment Condition: Improved (slept well overnight, easily arousable.) Disposition Doctor Will See Patient In The: Office Counseled Patient/Family Regarding: Studies Performed, Diagnosis - Disposition Disposition: HOME/ ROUTINE Disposition Time: 06:00 Condition: GOOD Forms: [facility] (Polish) - Clinical Impression Clinical Impression: Alcohol abuse - Scribe Statement The provider has reviewed the documentation as recorded by the Scribe Provider Attestation: All medical record entries made by the Scribe were at my direction and personally dictated by me. I have reviewed the chart and agree that the record accurately reflects my personal performance of the history, physical exam, medical decision making, and the department course for this patient. I have also personally directed, reviewed, and agree with the discharge instructions and disposition.
[2017-10-22 05:55] VITALS: BP 120/75; PULSE 74; RESP 16; TEMP 98; O2SAT 98
== END 2017-10-22 05:55 | disposition home or self-care (01) ==
LOC: C.ER 00:08
DX: F10.129 Alcohol abuse with intoxication, unspecified (principal); Y90.9 Presence of alcohol in blood, level not specified

== ENCOUNTER 2017-10-22 18:33 | Emergency (ER) | payer SELFPAY ==
[2017-10-22 18:33] VITALS: BMI 29.7
--- NOTE | 2017-10-22 19:27 | C.PDOC ---
History Of Present Illness Patient presents to the ER with acute ETOH intoxication and requesting a place to spend the night. Denies physical complaints at this time. Time Seen by Provider: 10/22/17 19:27 History Per: Patient History/Exam Limitations: no limitations Onset/Duration Of Symptoms: Hrs Current Symptoms Are (Timing): Still Present Suicide/Self Injury Attempted (Context): None Modifying Factor(s): Alcohol Severity: None Pain Scale Rating Of: 0 Associated Symptoms: denies: Depression, Suicidal Thoughts, Suicidal Plan Involuntary Hold By: None Recent travel outside of the [place]: No Past Medical History Reviewed: Historical Data, Nursing Documentation, Vital Signs - Medical History PMH: Anxiety, Arthritis, Bronchitis, CAD, Depression, Diabetes (Pt. did not disclose to manual writer, not aware), Fractures (RIGHT ARM), Gastritis, Gall Bladder Disease (s/p cholecystectomy), HTN, Post Traumatic Stress Disorder, Rheumatoid Arthritis, Seizures, Chronic Pain Surgical History: Cholecystectomy - [facility] Procedures ALCOHOL DETOXIFICATION (07/04/15) APPLICATION OF SPLINT (03/20/13) CLOSURE SKIN & SUBCUTANEOUS NEC (08/14/13) DETOXIFICATION SERVICES FOR SUBSTANCE ABUSE TREATMENT (03/22/16) ESOPHAGOGASTRODUODENOSCOPY [EGD] W/CLOSED BIOPSY (02/16/15) OTHER GROUP THERAPY (03/12/13) PHYSICAL THERAPY NEC (07/04/15) TETANUS TOXOID ADMINIST (01/19/14) Family History: States: No Known Family Hx - Social History Hx Tobacco Use: No Hx Alcohol Use: Yes Hx Substance Use: No - Immunization History Hx Tetanus Toxoid Vaccination: No Hx Influenza Vaccination: No Hx Pneumococcal Vaccination: No Review Of Systems Constitutional: Negative for: Fever, Chills Gastrointestinal: Negative for: Nausea, Vomiting, Diarrhea Physical Exam - Physical Exam Appears: Non-toxic, No Acute Distress, Other (ETOH on breath) Skin: Warm, Dry Head: Normacephalic Oral Mucosa: Moist Chest: Symmetrical, No Tenderness Cardiovascular: Rhythm Regular Respiratory: No Rales, No Rhonchi, No Wheezing Gastrointestinal/Abdominal: Soft, No Tenderness Neurological/Psych: Oriented x3 Disposition Counseled Patient/Family Regarding: Studies Performed, Diagnosis, Need For Followup - Disposition Referrals: [facility] [Outside] Disposition: HOME/ ROUTINE Disposition Time: 19:27 Condition: FAIR Instructions: Alcohol Intoxication (DC) - Clinical Impression Clinical Impression: Alcohol intoxication - Scribe Statement The provider has reviewed the documentation as recorded by the Scribe Fabián Ramirez All medical record entries made by the Scribe were at my direction and personally dictated by me. I have reviewed the chart and agree that the record accurately reflects my personal performance of the history, physical exam, medical decision making, and the department course for this patient. I have also personally directed, reviewed, and agree with the discharge instructions and disposition.
[2017-10-22 23:00] VITALS: BP 132/90; PULSE 90; RESP 18; TEMP 97.4; O2SAT 96
== END 2017-10-23 01:45 | disposition home or self-care (01) ==
LOC: C.ER 18:33
DX: F10.129 Alcohol abuse with intoxication, unspecified (principal); Y90.9 Presence of alcohol in blood, level not specified

== ENCOUNTER 2017-10-23 20:19 | Emergency (ER) | payer OTHER ==
[2017-10-23 20:20] VITALS: BMI 29.7
--- NOTE | 2017-10-24 04:36 | C.PDOC ---
History Of Present Illness 57 year old homeless male presents to the ED intoxicated looking for a place to spend the night. Patient is a well known homeless man with ,any prior visits to the ED for similar reasons in the past. Patient has ETOH on breath, denies SI/HI , hallucinations, physical complaints at this time. Time Seen by Provider: 10/23/17 22:41 Chief Complaint (Nursing): Substance Abuse History Per: Patient History/Exam Limitations: intoxication Onset/Duration Of Symptoms: Hrs Current Symptoms Are (Timing): Still Present Suicide/Self Injury Attempted (Context): None Modifying Factor(s): Alcohol Severity: None Associated Symptoms: denies: Depression, Suicidal Thoughts, Suicidal Plan Involuntary Hold By: None Recent travel outside of the [place]: No Additional History Per: Patient Past Medical History Reviewed: Historical Data, Nursing Documentation, Vital Signs Vital Signs: Last Vital Signs Temp 98 F 10/24/17 06:08 Pulse 89 10/24/17 06:08 Resp 16 10/24/17 06:08 BP 130/79 10/24/17 06:08 Pulse Ox 98 10/24/17 06:08 - Medical History PMH: Anxiety, Arthritis, Bronchitis, CAD, Depression, Diabetes (Pt. did not disclose to group underwriter, not aware), Fractures (RIGHT ARM), Gastritis, Gall Bladder Disease (s/p cholecystectomy), HTN, Post Traumatic Stress Disorder, Rheumatoid Arthritis, Seizures, Chronic Pain Denies: Chronic Kidney Disease Surgical History: Cholecystectomy - [facility] Procedures ALCOHOL DETOXIFICATION (07/04/15) APPLICATION OF SPLINT (03/20/13) CLOSURE SKIN & SUBCUTANEOUS NEC (08/14/13) DETOXIFICATION SERVICES FOR SUBSTANCE ABUSE TREATMENT (03/22/16) ESOPHAGOGASTRODUODENOSCOPY [EGD] W/CLOSED BIOPSY (02/16/15) OTHER GROUP THERAPY (03/12/13) PHYSICAL THERAPY NEC (07/04/15) TETANUS TOXOID ADMINIST (01/19/14) Family History: States: Unknown Family Hx - Social History Hx Tobacco Use: No Hx Alcohol Use: Yes Hx Substance Use: No - Immunization History Hx Tetanus Toxoid Vaccination: No Hx Influenza Vaccination: No Hx Pneumococcal Vaccination: No Review Of Systems Constitutional: Negative for: Fever, Chills Cardiovascular: Negative for: Chest Pain, Palpitations Respiratory: Negative for: Cough, Shortness of Breath Gastrointestinal: Negative for: Nausea, Vomiting, Abdominal Pain Skin: Negative for: Rash Neurological: Negative for: Weakness, Numbness Psych: Negative for: Depression, Suicidal ideation Physical Exam - Physical Exam Appears: Non-toxic, No Acute Distress Skin: Normal Color, Warm, Dry Head: Atraumatic, Normacephalic Nose: No Discharge, No Deformity Oral Mucosa: Moist Neck: Normal ROM, Supple Chest: Symmetrical Cardiovascular: Rhythm Regular, Murmur Respiratory: Normal Breath Sounds, No Rales, No Rhonchi, No Wheezing Gastrointestinal/Abdominal: Soft, No Tenderness Extremity: Normal ROM, No Pedal Edema, No Calf Tenderness, No Deformity, No Swelling Neurological/Psych: Oriented x3 ED Course And Treatment O2 Sat by Pulse Oximetry: 97 (On RA) Pulse Ox Interpretation: Normal Disposition - Disposition Referrals: [facility] at [facility] [place] [Outside] [facility] at [facility] [Outside] [facility] [place] [Outside] Disposition: HOME/ ROUTINE Disposition Time: 00:34 Condition: GOOD Additional Instructions: return for chest pain/ sob/ fever/ chills or other worrisome symptoms Forms: [employer] (Danish) - Clinical Impression Clinical Impression: Alcohol intoxication, Homeless single person - Scribe Statement The provider has reviewed the documentation as recorded by the Scribe Woo Brown All medical record entries made by the Scribe were at my direction and personally dictated by me. I have reviewed the chart and agree that the record accurately reflects my personal performance of the history, physical exam, medical decision making, and the department course for this patient. I have also personally directed, reviewed, and agree with the discharge instructions and disposition.
[2017-10-24 06:09] VITALS: BP 130/79; PULSE 89; RESP 16; TEMP 98
[2018-01-12 00:34] VITALS: O2SAT 97
== END 2017-10-24 06:40 | disposition home or self-care (01) ==
LOC: C.ER 20:19
DX: F10.129 Alcohol abuse with intoxication, unspecified (principal); Z59.0 Homelessness

== ENCOUNTER 2017-10-24 19:51 | Emergency (ER) | payer SELFPAY ==
[2017-10-24 19:53] VITALS: BMI 29.7
--- NOTE | 2017-10-24 20:26 | C.PDOC ---
History Of Present Illness 57 year old male with a past medical history of alcohol abuse, presents to the emergency room requesting a place to stay the night. Patient is well known to the ER for alcohol intoxication. He offers no complaints at this time. Able to ambulate in the ER. Time Seen by Provider: 10/24/17 20:12 Chief Complaint (Nursing): Substance Abuse History Per: Patient History/Exam Limitations: intoxication Onset/Duration Of Symptoms: Days (x1) Current Symptoms Are (Timing): Still Present Past Medical History Reviewed: Historical Data, Nursing Documentation, Vital Signs Vital Signs: Last Vital Signs Temp 98.2 F 10/25/17 01:23 Pulse 98 H 10/25/17 04:58 Resp 18 10/25/17 04:58 BP 129/73 10/25/17 04:58 Pulse Ox 97 10/25/17 04:58 - Medical History PMH: Anxiety, Arthritis, Bronchitis, CAD, Depression, Diabetes (Pt. did not disclose to service writer advisor, not aware), Fractures (RIGHT ARM), Gastritis, Gall Bladder Disease (s/p cholecystectomy), HTN, Post Traumatic Stress Disorder, Rheumatoid Arthritis, Seizures, Chronic Pain Denies: Chronic Kidney Disease Surgical History: Cholecystectomy - [facility] Procedures ALCOHOL DETOXIFICATION (07/04/15) APPLICATION OF SPLINT (03/20/13) CLOSURE SKIN & SUBCUTANEOUS NEC (08/14/13) DETOXIFICATION SERVICES FOR SUBSTANCE ABUSE TREATMENT (03/22/16) ESOPHAGOGASTRODUODENOSCOPY [EGD] W/CLOSED BIOPSY (02/16/15) OTHER GROUP THERAPY (03/12/13) PHYSICAL THERAPY NEC (07/04/15) TETANUS TOXOID ADMINIST (01/19/14) Family History: States: Unknown Family Hx - Social History Hx Tobacco Use: No Hx Alcohol Use: Yes Hx Substance Use: No - Immunization History Hx Tetanus Toxoid Vaccination: No Hx Influenza Vaccination: No Hx Pneumococcal Vaccination: No Review Of Systems Review Of Systems: ROS cannot be obtained secondary to pt's inabilty to answer questions. Physical Exam - Physical Exam Appears: Non-toxic, Other (Alcohol on breath, appears intoxicated) Skin: Normal Color, Warm, Dry Head: Atraumatic, Normacephalic Eye(s): bilateral: Normal Inspection, PERRL, EOMI Nose: Normal Neck: Normal, Normal ROM, Supple Chest: Symmetrical Cardiovascular: Rhythm Regular, No Murmur Respiratory: Normal Breath Sounds, No Accessory Muscle Use Gastrointestinal/Abdominal: Normal Exam, Soft, No Tenderness Back: Normal Inspection, No Vertebral Tenderness Extremity: Normal ROM, No Pedal Edema, No Calf Tenderness, No Deformity, Other ( seen ambulating in the ER) Neurological/Psych: Oriented x3 ED Course And Treatment O2 Sat by Pulse Oximetry: 98 (RA) Pulse Ox Interpretation: Normal Medical Decision Making Medical Decision Making: Time: 20:24 Initial Impression: 57 y/o male with ETOH intoxication Initial Plan: * Accucheck Disposition - Disposition Referrals: [facility] at [facility] [place] [Outside] [facility] at [facility] [Outside] [facility] [Outside] Disposition: HOME/ ROUTINE Disposition Time: 01:00 Condition: STABLE Additional Instructions: return if symptoms worsen Instructions: Alcohol Intoxication (ED) Forms: [facility] (Occitan) - Clinical Impression Clinical Impression: Homeless single person - Scribe Statement The provider has reviewed the documentation as recorded by the Scribe (Leah Gunter) All medical record entries made by the Scribe were at my direction and personally dictated by me. I have reviewed the chart and agree that the record accurately reflects my personal performance of the history, physical exam, medical decision making, and the department course for this patient. I have also personally directed, reviewed, and agree with the discharge instructions and disposition.
[2017-10-25 01:24] VITALS: TEMP 98.2
[2017-10-25 04:58] VITALS: BP 129/73; PULSE 98; RESP 18
[2017-10-27 16:57] VITALS: O2SAT 98
== END 2017-10-25 06:00 | disposition home or self-care (01) ==
LOC: C.ER 19:51
DX: F10.129 Alcohol abuse with intoxication, unspecified (principal); Y90.9 Presence of alcohol in blood, level not specified; Z59.0 Homelessness

== ENCOUNTER 2017-10-25 20:37 | Emergency (ER) | payer OTHER ==
[2017-10-25 20:37] VITALS: BMI 29.7
--- NOTE | 2017-10-25 23:32 | C.PDOC ---
History Of Present Illness Patient presents to ED intoxicated. Patient denies any physical complaints and states its cold outside and wants a place to stay for the night. ETOH on breath. Time Seen by Provider: 10/25/17 23:30 Chief Complaint (Nursing): Substance Abuse History Per: Patient History/Exam Limitations: no limitations Onset/Duration Of Symptoms: Hrs Current Symptoms Are (Timing): Still Present Modifying Factor(s): Alcohol Severity: Mild Pain Scale Rating Of: 2 Associated Symptoms: denies: Anger, Anxiety, Depression, Suicidal Thoughts Involuntary Hold By: None Recent travel outside of the [place]: No Past Medical History Reviewed: Historical Data, Nursing Documentation, Vital Signs Vital Signs: Last Vital Signs Temp 97.8 F 10/26/17 00:45 Pulse 92 H 10/26/17 04:17 Resp 18 10/26/17 04:17 BP 106/56 L 10/26/17 04:17 Pulse Ox 96 10/26/17 04:17 - Medical History PMH: Anxiety, Arthritis, Bronchitis, CAD, Depression, Diabetes (Pt. did not disclose to journalists and other writers, not aware), Fractures (RIGHT ARM), Gastritis, Gall Bladder Disease (s/p cholecystectomy), HTN, Post Traumatic Stress Disorder, Rheumatoid Arthritis, Seizures, Chronic Pain Surgical History: Cholecystectomy - [facility] Procedures ALCOHOL DETOXIFICATION (07/04/15) APPLICATION OF SPLINT (03/20/13) CLOSURE SKIN & SUBCUTANEOUS NEC (08/14/13) DETOXIFICATION SERVICES FOR SUBSTANCE ABUSE TREATMENT (03/22/16) ESOPHAGOGASTRODUODENOSCOPY [EGD] W/CLOSED BIOPSY (02/16/15) OTHER GROUP THERAPY (03/12/13) PHYSICAL THERAPY NEC (07/04/15) TETANUS TOXOID ADMINIST (01/19/14) Family History: States: No Known Family Hx - Social History Hx Tobacco Use: No Hx Alcohol Use: Yes Hx Substance Use: No - Immunization History Hx Tetanus Toxoid Vaccination: No Hx Influenza Vaccination: No Hx Pneumococcal Vaccination: No Review Of Systems Constitutional: Negative for: Fever, Chills Gastrointestinal: Negative for: Nausea, Vomiting Skin: Negative for: Rash Neurological: Negative for: Weakness, Numbness Psych: Negative for: Depression, Suicidal ideation Physical Exam - Physical Exam Appears: Non-toxic, Other (Awake and alert; ETOH on breath) Skin: Warm, Dry Head: Normacephalic Eye(s): bilateral: Normal Inspection Oral Mucosa: Moist Neck: Supple Chest: Symmetrical, No Tenderness Cardiovascular: Rhythm Regular Respiratory: No Rales, No Rhonchi, No Wheezing Gastrointestinal/Abdominal: Soft, No Tenderness Neurological/Psych: Oriented x3, Normal Speech, Normal Cognition ED Course And Treatment O2 Sat by Pulse Oximetry: 98 (Room air) Pulse Ox Interpretation: Normal Reevaluation Time: 05:30 Reassessment Condition: Improved Disposition Counseled Patient/Family Regarding: Studies Performed, Diagnosis, Need For Followup - Disposition Referrals: [facility] at [facility] [Outside] Disposition: HOME/ ROUTINE Disposition Time: 23:31 Condition: FAIR Instructions: Alcohol Intoxication (DC) Forms: [employer] (Eritrean) - Clinical Impression Clinical Impression: Alcohol intoxication, Chronic alcoholism - Scribe Statement The provider has reviewed the documentation as recorded by the Scribjosé miguel Rosales All medical record entries made by the Scribe were at my direction and personally dictated by me. I have reviewed the chart and agree that the record accurately reflects my personal performance of the history, physical exam, medical decision making, and the department course for this patient. I have also personally directed, reviewed, and agree with the discharge instructions and disposition.
[2017-10-26 00:47] VITALS: PULSE 92; RESP 18; TEMP 97.8
[2017-10-26 04:20] VITALS: BP 106/56
[2017-10-26 05:30] VITALS: O2SAT 98
== END 2017-10-26 06:17 | disposition home or self-care (01) ==
LOC: C.ER 20:37
DX: F10.229 Alcohol dependence with intoxication, unspecified (principal); Y90.9 Presence of alcohol in blood, level not specified; E11.9 Type 2 diabetes mellitus without complications

== ENCOUNTER 2017-10-26 19:38 | Emergency (ER) | payer SELFPAY ==
[2017-10-26 19:39] VITALS: BMI 29.7
[2017-10-26 19:58] VITALS: BP 140/90; PULSE 78; RESP 14; TEMP 97.5; O2SAT 97
--- NOTE | 2017-10-26 20:00 | C.PDOC ---
History Of Present Illness Patient presents to ED intoxicated and states it is cold outside and he needs a place to stay for the night. ETOH on breath. Patient denies any physical complaints. Time Seen by Provider: 10/26/17 20:00 Chief Complaint (Nursing): Substance Abuse History Per: Patient History/Exam Limitations: no limitations Onset/Duration Of Symptoms: Hrs Current Symptoms Are (Timing): Still Present Suicide/Self Injury Attempted (Context): None Modifying Factor(s): Alcohol Associated Symptoms: denies: Anger, Anxiety, Depression, Suicidal Thoughts, Suicidal Plan Recent travel outside of the [place]: No Past Medical History Reviewed: Historical Data, Nursing Documentation, Vital Signs Vital Signs: Last Vital Signs Temp 97.5 F L 10/26/17 19:55 Pulse 78 10/26/17 19:55 Resp 14 10/26/17 19:55 BP 140/90 10/26/17 19:55 Pulse Ox 97 10/26/17 20:51 - Medical History PMH: Anxiety, Arthritis, Bronchitis, CAD, Depression, Diabetes (Pt. did not disclose to commercial lines underwriter, not aware), Fractures (RIGHT ARM), Gastritis, Gall Bladder Disease (s/p cholecystectomy), HTN, Post Traumatic Stress Disorder, Rheumatoid Arthritis, Seizures, Chronic Pain Surgical History: Cholecystectomy - [facility] Procedures ALCOHOL DETOXIFICATION (07/04/15) APPLICATION OF SPLINT (03/20/13) CLOSURE SKIN & SUBCUTANEOUS NEC (08/14/13) DETOXIFICATION SERVICES FOR SUBSTANCE ABUSE TREATMENT (03/22/16) ESOPHAGOGASTRODUODENOSCOPY [EGD] W/CLOSED BIOPSY (02/16/15) OTHER GROUP THERAPY (03/12/13) PHYSICAL THERAPY NEC (07/04/15) TETANUS TOXOID ADMINIST (01/19/14) Family History: States: No Known Family Hx - Social History Hx Tobacco Use: No Hx Alcohol Use: Yes Hx Substance Use: No - Immunization History Hx Tetanus Toxoid Vaccination: No Hx Influenza Vaccination: No Hx Pneumococcal Vaccination: No Review Of Systems Constitutional: Negative for: Fever Gastrointestinal: Negative for: Nausea, Vomiting Neurological: Negative for: Weakness Psych: Negative for: Depression, Suicidal ideation Physical Exam - Physical Exam Appears: Non-toxic, Other (Awake and alert; ETOH on breath) Skin: Warm, Dry Head: Normacephalic Eye(s): bilateral: Normal Inspection Oral Mucosa: Moist Chest: Symmetrical, No Tenderness Cardiovascular: Rhythm Regular Respiratory: No Rales, No Rhonchi, No Wheezing Gastrointestinal/Abdominal: Soft, No Tenderness Neurological/Psych: Oriented x3, Normal Speech, Normal Cognition ED Course And Treatment O2 Sat by Pulse Oximetry: 97 (Room air) Pulse Ox Interpretation: Normal Reevaluation Time: 23:29 Reassessment Condition: Improved Disposition Counseled Patient/Family Regarding: Studies Performed, Diagnosis, Need For Followup - Disposition Referrals: [facility] at [facility] [Outside] Disposition: HOME/ ROUTINE Disposition Time: 20:00 Condition: FAIR Instructions: Alcohol Intoxication (DC) Forms: [employer] (Serbian) - Clinical Impression Clinical Impression: Alcohol intoxication, Chronic alcoholism - Scribe Statement The provider has reviewed the documentation as recorded by the Scribjosé miguel Rosales All medical record entries made by the Rominaibjosé miguel were at my direction and personally dictated by me. I have reviewed the chart and agree that the record accurately reflects my personal performance of the history, physical exam, medical decision making, and the department course for this patient. I have also personally directed, reviewed, and agree with the discharge instructions and disposition.
== END 2017-10-26 21:00 | disposition home or self-care (01) ==
LOC: C.ER 19:38
DX: F10.229 Alcohol dependence with intoxication, unspecified (principal); Y90.9 Presence of alcohol in blood, level not specified

== ENCOUNTER 2017-10-27 19:41 | Emergency (ER) | payer OTHER ==
[2017-10-27 19:42] VITALS: BMI 29.7
--- NOTE | 2017-10-27 20:43 | C.PDOC ---
History Of Present Illness 57 yr old male presents to the ER for alcohol intoxication. Patient is very well known to the [facility] ER with multiple visit. Patient states it is cold outside and needs a place to stay. Denies any physical complaints. Time Seen by Provider: 10/27/17 20:41 Chief Complaint (Nursing): Substance Abuse History Per: Patient History/Exam Limitations: no limitations Onset/Duration Of Symptoms: Persistent Modifying Factor(s): Alcohol Past Medical History Reviewed: Historical Data, Nursing Documentation, Vital Signs Vital Signs: Last Vital Signs Temp 98.7 F 10/28/17 01:24 Pulse 88 10/28/17 01:24 Resp 20 10/28/17 01:24 BP 125/86 10/28/17 01:24 Pulse Ox 95 10/28/17 01:24 - Medical History PMH: Anxiety, Arthritis, Bronchitis, CAD, Depression, Diabetes (Pt. did not disclose to public relations writer, not aware), Fractures (RIGHT ARM), Gastritis, Gall Bladder Disease (s/p cholecystectomy), HTN, Post Traumatic Stress Disorder, Rheumatoid Arthritis, Seizures, Chronic Pain Surgical History: Cholecystectomy - [facility] Procedures ALCOHOL DETOXIFICATION (07/04/15) APPLICATION OF SPLINT (03/20/13) CLOSURE SKIN & SUBCUTANEOUS NEC (08/14/13) DETOXIFICATION SERVICES FOR SUBSTANCE ABUSE TREATMENT (03/22/16) ESOPHAGOGASTRODUODENOSCOPY [EGD] W/CLOSED BIOPSY (02/16/15) OTHER GROUP THERAPY (03/12/13) PHYSICAL THERAPY NEC (07/04/15) TETANUS TOXOID ADMINIST (01/19/14) Family History: States: No Known Family Hx - Social History Hx Tobacco Use: No Hx Alcohol Use: Yes Hx Substance Use: No - Immunization History Hx Tetanus Toxoid Vaccination: No Hx Influenza Vaccination: No Hx Pneumococcal Vaccination: No Review Of Systems Except As Marked, All Systems Reviewed And Found Negative. Constitutional: Negative for: Fever Cardiovascular: Negative for: Chest Pain Respiratory: Negative for: Shortness of Breath Neurological: Negative for: Weakness, Numbness Physical Exam - Physical Exam Appears: Non-toxic, No Acute Distress, Other ((+) eTOH on breath) Skin: Warm, Dry, No Rash Head: Atraumatic, Normacephalic Oral Mucosa: Moist Cardiovascular: No Murmur Respiratory: No Rales, No Rhonchi, No Stridor, No Wheezing Extremity: No Swelling Neurological/Psych: Oriented x3, Normal Speech ED Course And Treatment O2 Sat by Pulse Oximetry: 95 Pulse Ox Interpretation: Normal Reevaluation Time: 05:33 Reassessment Condition: Improved Disposition Counseled Patient/Family Regarding: Studies Performed, Diagnosis, Need For Followup - Disposition Referrals: [facility] at [facility] [Outside] Disposition: HOME/ ROUTINE Disposition Time: 20:42 Condition: FAIR Instructions: Alcohol Intoxication (DC) Forms: [employer] (Irish) - Clinical Impression Clinical Impression: Alcohol intoxication, Chronic alcoholism - Scribe Statement The provider has reviewed the documentation as recorded by the Rominaibe Lissett Alves Provider Attestation: All medical record entries made by the Rominaibjosé miguel were at my direction and personally dictated by me. I have reviewed the chart and agree that the record accurately reflects my personal performance of the history, physical exam, medical decision making, and the department course for this patient. I have also personally directed, reviewed, and agree with the discharge instructions and disposition.
[2017-10-28 07:03] VITALS: BP 136/74; PULSE 78; RESP 16; TEMP 96.1; O2SAT 98
== END 2017-10-28 07:00 | disposition home or self-care (01) ==
LOC: C.ER 19:41
DX: F10.229 Alcohol dependence with intoxication, unspecified (principal); Y90.9 Presence of alcohol in blood, level not specified

== ENCOUNTER 2017-10-28 21:23 | Emergency (ER) | payer OTHER ==
[2017-10-28 21:27] VITALS: BMI 29.7
--- NOTE | 2017-10-29 00:37 | C.PDOC ---
History Of Present Illness <Andrey Craig - Last Filed: 10/29/17 00:46> <Victoriano Pierson - Last Filed: 10/29/17 05:34> Patient is a 57 y/o homeless male who presents to the ED with a complaint of alcohol intoxication. Patient has an extensive history of prior ED visits for the same complaints. Denies fever or chills. No other physical complaints at this time. (Andrey Craig) History Per: Patient History/Exam Limitations: no limitations Onset/Duration Of Symptoms: Hrs Current Symptoms Are (Timing): Still Present Modifying Factor(s): Alcohol Recent travel outside of the [place]: No <Andrey Craig - Last Filed: 10/29/17 00:46> <Victoriano Pierson - Last Filed: 10/29/17 05:34> Time Seen by Provider: 10/28/17 23:25 Chief Complaint (Nursing): Substance Abuse Past Medical History Reviewed: Historical Data, Nursing Documentation, Vital Signs - Medical History PMH: Anxiety, Arthritis, Bronchitis, CAD, Depression, Diabetes (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 aware), Fractures (RIGHT ARM), Gastritis, Gall Bladder Disease (s/p cholecystectomy), HTN, Post Traumatic Stress Disorder, Rheumatoid Arthritis, Seizures, Chronic Pain Denies: Chronic Kidney Disease Surgical History: Cholecystectomy Family History: States: Unknown Family Hx - Social History Hx Tobacco Use: No Hx Alcohol Use: Yes Hx Substance Use: No - Immunization History Hx Tetanus Toxoid Vaccination: No Hx Influenza Vaccination: No Hx Pneumococcal Vaccination: No <Andrey Craig - Last Filed: 10/29/17 00:46> Vital Signs: Last Vital Signs Temp 97.9 F 10/29/17 04:54 Pulse 106 H 10/29/17 04:54 Resp 19 10/29/17 04:54 BP 109/63 10/29/17 04:54 Pulse Ox 98 10/29/17 04:54 - [facility] Procedures ALCOHOL DETOXIFICATION (07/04/15) APPLICATION OF SPLINT (03/20/13) CLOSURE SKIN & SUBCUTANEOUS NEC (08/14/13) DETOXIFICATION SERVICES FOR SUBSTANCE ABUSE TREATMENT (03/22/16) ESOPHAGOGASTRODUODENOSCOPY [EGD] W/CLOSED BIOPSY (02/16/15) OTHER GROUP THERAPY (03/12/13) PHYSICAL THERAPY NEC (07/04/15) TETANUS TOXOID ADMINIST (01/19/14) Review Of Systems Constitutional: Negative for: Fever, Chills Neurological: Positive for: Other (EtOH intoxication) <Andrey Craig - Last Filed: 10/29/17 00:46> Physical Exam - Physical Exam Appears: Well, Non-toxic, Other (EtOH on breath) Skin: Normal Color, Warm, Dry Head: Atraumatic, Normacephalic Oral Mucosa: Moist Cardiovascular: Rhythm Regular, No Murmur Respiratory: Normal Breath Sounds, No Rales, No Rhonchi, No Wheezing <Andrey Craig - Last Filed: 10/29/17 00:46> ED Course And Treatment O2 Sat by Pulse Oximetry: 98 Progress Note: Patient to be discharged upon sobriety. <Andrey Craig - Last Filed: 10/29/17 00:46> Disposition <Andrey Craig - Last Filed: 10/29/17 00:46> - Disposition Disposition Time: 05:34 <Victoriano Pierson - Last Filed: 10/29/17 05:34> - Disposition Disposition: HOME/ ROUTINE Condition: STABLE Forms: [facility] (Irish) - Clinical Impression Clinical Impression: Alcohol intoxication, Alcohol abuse with intoxication, Alcohol abuse with intoxication, uncomplicated, Alcohol abuse, daily use - Scribe Statement The provider has reviewed the documentation as recorded by the Scribe <Andrey Craig - Last Filed: 10/29/17 00:46> <Victoriano Pierson - Last Filed: 10/29/17 05:34> - Scribe Statement Yamilet Madrigal All medical record entries made by the Scribe were at my direction and personally dictated by me. I have reviewed the chart and agree that the record accurately reflects my personal performance of the history, physical exam, medical decision making, and the department course for this patient. I have also personally directed, reviewed, and agree with the discharge instructions and disposition. (Andrey Craig) Physician Patient Turnover Patient Signed Over To: Victoriano Pierson Handoff Comments: dispo in AM when sober <Rafa,Jeromy - Last Filed: 10/29/17 00:46>
[2017-10-29 04:54] VITALS: BP 109/63; PULSE 106; RESP 19; TEMP 97.9; O2SAT 98
== END 2017-10-29 05:37 | disposition home or self-care (01) ==
LOC: C.ER 21:23
DX: F10.129 Alcohol abuse with intoxication, unspecified (principal); Y90.9 Presence of alcohol in blood, level not specified

== ENCOUNTER 2017-10-29 20:15 | Emergency (ER) | payer OTHER ==
[2017-10-29 20:16] VITALS: BMI 29.7
--- NOTE | 2017-10-30 01:45 | C.PDOC ---
History Of Present Illness 57 y/o male presents to ED intoxicated and states he wants to spend the night. Denies any physical complaints Time Seen by Provider: 10/30/17 01:34 Chief Complaint (Nursing): Substance Abuse History Per: Patient History/Exam Limitations: no limitations Onset/Duration Of Symptoms: Hrs Current Symptoms Are (Timing): Still Present Suicide/Self Injury Attempted (Context): None Modifying Factor(s): Alcohol Associated Symptoms: denies: Anger, Agitation, Depression, Suicidal Thoughts Involuntary Hold By: None Recent travel outside of the [place]: No Past Medical History Reviewed: Historical Data, Nursing Documentation, Vital Signs Vital Signs: Last Vital Signs Temp 97 F L 10/30/17 04:12 Pulse 71 10/30/17 04:12 Resp 16 10/30/17 04:12 BP 127/64 10/30/17 04:12 Pulse Ox 97 10/30/17 04:12 - Medical History PMH: Anxiety, Arthritis, Bronchitis, CAD, Depression, Diabetes (Pt. did not disclose to magazine writer, not aware), Fractures (RIGHT ARM), Gastritis, Gall Bladder Disease (s/p cholecystectomy), HTN, Post Traumatic Stress Disorder, Rheumatoid Arthritis, Seizures, Chronic Pain Surgical History: Cholecystectomy - [facility] Procedures ALCOHOL DETOXIFICATION (07/04/15) APPLICATION OF SPLINT (03/20/13) CLOSURE SKIN & SUBCUTANEOUS NEC (08/14/13) DETOXIFICATION SERVICES FOR SUBSTANCE ABUSE TREATMENT (03/22/16) ESOPHAGOGASTRODUODENOSCOPY [EGD] W/CLOSED BIOPSY (02/16/15) OTHER GROUP THERAPY (03/12/13) PHYSICAL THERAPY NEC (07/04/15) TETANUS TOXOID ADMINIST (01/19/14) Family History: States: Unknown Family Hx - Social History Hx Tobacco Use: No Hx Alcohol Use: Yes Hx Substance Use: No - Immunization History Hx Tetanus Toxoid Vaccination: No Hx Influenza Vaccination: No Hx Pneumococcal Vaccination: No Review Of Systems Constitutional: Negative for: Fever Cardiovascular: Negative for: Chest Pain Respiratory: Negative for: Cough, Shortness of Breath Gastrointestinal: Negative for: Nausea, Vomiting, Abdominal Pain, Diarrhea Neurological: Negative for: Weakness, Numbness Physical Exam - Physical Exam Appears: Well, Non-toxic, No Acute Distress Skin: Warm, Dry Head: Atraumatic Eye(s): bilateral: PERRL Nose: No Discharge Oral Mucosa: Moist Throat: Normal Neck: Supple Chest: Symmetrical, No Tenderness Cardiovascular: Rhythm Regular Respiratory: No Decreased Breath Sounds, No Accessory Muscle Use, No Rales, No Rhonchi, No Wheezing Gastrointestinal/Abdominal: Soft, No Tenderness, No Distention, No Guarding, No Rebound Neurological/Psych: Oriented x3, Other (no focal deficits) ED Course And Treatment O2 Sat by Pulse Oximetry: 98 (RA) Pulse Ox Interpretation: Normal Medical Decision Making Medical Decision Makin pt a&ox3 and ambulatory w steady gait prior to dc Disposition - Disposition Disposition: HOME/ ROUTINE Disposition Time: 04:12 Condition: STABLE Forms: [facility] (Citizen [place]) - Clinical Impression Clinical Impression: Alcohol intoxication - Scribe Statement The provider has reviewed the documentation as recorded by the Scribjosé miguel Rosales All medical record entries made by the Scribe were at my direction and personally dictated by me. I have reviewed the chart and agree that the record accurately reflects my personal performance of the history, physical exam, medical decision making, and the department course for this patient. I have also personally directed, reviewed, and agree with the discharge instructions and disposition.
[2017-10-30 04:14] VITALS: TEMP 97
[2017-10-30 05:49] VITALS: BP 118/76; PULSE 79; RESP 18
[2017-10-30 05:51] VITALS: O2SAT 98
== END 2017-10-30 04:15 | disposition home or self-care (01) ==
LOC: C.ER 20:15
DX: F10.129 Alcohol abuse with intoxication, unspecified (principal); Y90.9 Presence of alcohol in blood, level not specified

== ENCOUNTER 2017-11-01 20:48 | Emergency (ER) | payer OTHER ==
[2017-11-01 20:48] VITALS: BMI 29.7
[2017-11-01 21:36] VITALS: RESP 16
--- NOTE | 2017-11-02 00:49 | C.PDOC ---
History Of Present Illness 57 year old male well known to the ER for ETOH dependency presents to the ER with acute ETOH intoxication. Patient is somnolent but arousbale, states "it's too cold outside" and is requesting a place to stay the night. Denies chest pain , SOB, trauma, nausea, vomiting, or abdominal pain. Chief Complaint (Nursing): Substance Abuse History Per: Patient History/Exam Limitations: no limitations Onset/Duration Of Symptoms: Hrs Current Symptoms Are (Timing): Still Present Suicide/Self Injury Attempted (Context): None Modifying Factor(s): Alcohol Associated Symptoms: denies: Depression, Suicidal Thoughts, Suicidal Plan Involuntary Hold By: None Recent travel outside of the [place]: No Past Medical History Reviewed: Historical Data, Nursing Documentation, Vital Signs Vital Signs: Last Vital Signs Temp 98.2 F 11/02/17 04:28 Pulse 87 11/02/17 04:28 Resp 16 11/02/17 04:28 BP 134/89 11/02/17 04:28 Pulse Ox 96 11/02/17 06:02 - Medical History PMH: Anxiety, Arthritis, Bronchitis, CAD, Depression, Diabetes (Pt. did not disclose to report writer, not aware), Fractures (RIGHT ARM), Gastritis, Gall Bladder Disease (s/p cholecystectomy), HTN, Post Traumatic Stress Disorder, Rheumatoid Arthritis, Seizures, Chronic Pain Surgical History: Cholecystectomy - [facility] Procedures ALCOHOL DETOXIFICATION (07/04/15) APPLICATION OF SPLINT (03/20/13) CLOSURE SKIN & SUBCUTANEOUS NEC (08/14/13) DETOXIFICATION SERVICES FOR SUBSTANCE ABUSE TREATMENT (03/22/16) ESOPHAGOGASTRODUODENOSCOPY [EGD] W/CLOSED BIOPSY (02/16/15) OTHER GROUP THERAPY (03/12/13) PHYSICAL THERAPY NEC (07/04/15) TETANUS TOXOID ADMINIST (01/19/14) Family History: States: Unknown Family Hx - Social History Hx Tobacco Use: No Hx Alcohol Use: Yes Hx Substance Use: No - Immunization History Hx Tetanus Toxoid Vaccination: No Hx Influenza Vaccination: No Hx Pneumococcal Vaccination: No Review Of Systems Constitutional: Negative for: Fever, Chills Cardiovascular: Negative for: Chest Pain, Palpitations Respiratory: Negative for: Shortness of Breath Gastrointestinal: Negative for: Nausea, Vomiting, Abdominal Pain, Diarrhea Physical Exam - Physical Exam Appears: Non-toxic, Other (Somnolent but arousable to tactile stimuli, ETOH on breath, no evidence of trauma) Skin: Normal Color, Warm, Dry Head: Atraumatic, Normacephalic Eye(s): bilateral: Normal Inspection Oral Mucosa: Moist Neck: Normal, No Midline Cervical Tenderness, No Paracervical Tenderness, Supple Chest: Symmetrical, No Tenderness Cardiovascular: Rhythm Regular Respiratory: Normal Breath Sounds, No Rales, No Rhonchi, No Wheezing Gastrointestinal/Abdominal: Soft, No Tenderness Extremity: Normal ROM (x4) Neurological/Psych: Oriented x3, Normal Speech, Normal Motor, Normal Sensation ED Course And Treatment O2 Sat by Pulse Oximetry: 96 (Room air) Medical Decision Making Medical Decision Making: Impression: ETOH intoxication, will assess periodically and discharge when sobriety is achieved. Disposition - Disposition Referrals: Alcoholics Anonymous [Outside] Disposition: HOME/ ROUTINE Disposition Time: 06:02 Condition: GOOD Instructions: Abuse of Alcohol (ED) Forms: [facility] (Maldivian) - Clinical Impression Clinical Impression: Acute alcohol intoxication - Scribe Statement The provider has reviewed the documentation as recorded by the Scribjosé miguel Ramirez All medical record entries made by the Scribe were at my direction and personally dictated by me. I have reviewed the chart and agree that the record accurately reflects my personal performance of the history, physical exam, medical decision making, and the department course for this patient. I have also personally directed, reviewed, and agree with the discharge instructions and disposition.
[2017-11-02 04:30] VITALS: BP 134/89; PULSE 87; TEMP 98.2
[2017-11-02 06:03] VITALS: O2SAT 96
== END 2017-11-02 06:16 | disposition home or self-care (01) ==
LOC: C.ER 20:48
DX: F10.129 Alcohol abuse with intoxication, unspecified (principal); E11.9 Type 2 diabetes mellitus without complications; I25.10 Atherosclerotic heart disease of native coronary artery without angina pectoris

== ENCOUNTER 2017-11-02 19:36 | Emergency (ER) | payer OTHER ==
[2017-11-02 19:37] VITALS: BMI 29.7
--- NOTE | 2017-11-03 00:46 | C.PDOC ---
History Of Present Illness 57 years old male presents to ED intoxicated. Patient states he wants a place to stay for the night. Denies any physical complaints. Time Seen by Provider: 11/02/17 20:41 Chief Complaint (Nursing): Substance Abuse History Per: Patient History/Exam Limitations: no limitations Onset/Duration Of Symptoms: Hrs Current Symptoms Are (Timing): Still Present Suicide/Self Injury Attempted (Context): None Modifying Factor(s): Alcohol Associated Symptoms: denies: Anger, Agitation, Suicidal Thoughts, Suicidal Plan Involuntary Hold By: None Recent travel outside of the [place]: No Past Medical History Reviewed: Historical Data, Nursing Documentation, Vital Signs Vital Signs: Last Vital Signs Temp 98.1 F 11/03/17 05:09 Pulse 90 11/03/17 05:09 Resp 18 11/03/17 05:09 BP 126/70 11/03/17 05:09 Pulse Ox 95 11/03/17 05:09 - Medical History PMH: Anxiety, Arthritis, Bronchitis, CAD, Depression, Diabetes (Pt. did not disclose to program writer, not aware), Fractures (RIGHT ARM), Gastritis, Gall Bladder Disease (s/p cholecystectomy), HTN, Post Traumatic Stress Disorder, Rheumatoid Arthritis, Seizures, Chronic Pain Surgical History: Cholecystectomy - [facility] Procedures ALCOHOL DETOXIFICATION (07/04/15) APPLICATION OF SPLINT (03/20/13) CLOSURE SKIN & SUBCUTANEOUS NEC (08/14/13) DETOXIFICATION SERVICES FOR SUBSTANCE ABUSE TREATMENT (03/22/16) ESOPHAGOGASTRODUODENOSCOPY [EGD] W/CLOSED BIOPSY (02/16/15) OTHER GROUP THERAPY (03/12/13) PHYSICAL THERAPY NEC (07/04/15) TETANUS TOXOID ADMINIST (01/19/14) Family History: States: Unknown Family Hx - Social History Hx Tobacco Use: No Hx Alcohol Use: Yes Hx Substance Use: No - Immunization History Hx Tetanus Toxoid Vaccination: No Hx Influenza Vaccination: No Hx Pneumococcal Vaccination: No Review Of Systems Constitutional: Negative for: Fever Gastrointestinal: Negative for: Nausea, Vomiting, Diarrhea Neurological: Negative for: Weakness, Numbness Psych: Negative for: Anxiety, Suicidal ideation Physical Exam - Physical Exam Appears: Well, Non-toxic, No Acute Distress, Other (Awake and aler; ETOH on breath) Skin: Normal Color, Warm, Dry Head: Atraumatic, Normacephalic Eye(s): bilateral: Normal Inspection Oral Mucosa: Moist Neck: Supple Chest: Symmetrical, No Tenderness Cardiovascular: Rhythm Regular Respiratory: No Decreased Breath Sounds, No Rales, No Rhonchi, No Wheezing Gastrointestinal/Abdominal: Soft, No Tenderness, No Distention, No Guarding, No Rebound Pulses: Left Radial: Normal, Right Radial: Normal Neurological/Psych: Oriented x3, Normal Speech, Normal Cognition, Other (no focal deficits) ED Course And Treatment O2 Sat by Pulse Oximetry: 96 (RA) Pulse Ox Interpretation: Normal Disposition - Disposition Disposition: HOME/ ROUTINE Disposition Time: 06:17 Condition: GOOD Instructions: At-Risk Alcohol Use (ED) Forms: [facility] (Romansh) - Clinical Impression Clinical Impression: Homeless single person, Alcohol abuse with intoxication - Scribe Statement The provider has reviewed the documentation as recorded by the Scribjosé miguel Rosales All medical record entries made by the Scribe were at my direction and personally dictated by me. I have reviewed the chart and agree that the record accurately reflects my personal performance of the history, physical exam, medical decision making, and the department course for this patient. I have also personally directed, reviewed, and agree with the discharge instructions and disposition.
[2017-11-03 01:32] VITALS: RESP 18
[2017-11-03 05:11] VITALS: BP 126/70; PULSE 90; TEMP 98.1
[2017-11-03 06:18] VITALS: O2SAT 96
== END 2017-11-03 06:00 | disposition home or self-care (01) ==
LOC: C.ER 19:36
DX: F10.129 Alcohol abuse with intoxication, unspecified (principal); Y90.9 Presence of alcohol in blood, level not specified; Z59.0 Homelessness

== ENCOUNTER 2017-11-03 20:39 | Emergency (ER) | payer OTHER, SELFPAY ==
[2017-11-03 20:40] VITALS: BMI 29.7
[2017-11-03 21:29] VITALS: RESP 20; TEMP 98.3; O2SAT 100
--- NOTE | 2017-11-03 23:15 | C.PDOC ---
History Of Present Illness <Vincent Noe - Last Filed: 11/04/17 00:40> <Billie Atkins - Last Filed: 11/04/17 05:17> 57 yo male hx of etoh abuse, well known to er, presents with requesting a place to sleep. immediately observed sleeping in nad. well known to er for similar. denies any trauma or any complaints. (Vincent Noe) <Vincent Noe - Last Filed: 11/04/17 00:40> <Billie Atkins - Last Filed: 11/04/17 05:17> Time Seen by Provider: 11/03/17 23:04 Chief Complaint (Nursing): Substance Abuse Past Medical History Reviewed: Historical Data, Nursing Documentation, Vital Signs - Medical History PMH: Anxiety, Arthritis, Bronchitis, CAD, Depression, 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 aware), Fractures (RIGHT ARM), Gastritis, Gall Bladder Disease (s/p cholecystectomy), HTN, Post Traumatic Stress Disorder, Rheumatoid Arthritis, Seizures, Chronic Pain Denies: Chronic Kidney Disease Surgical History: Cholecystectomy Family History: States: Unknown Family Hx - Social History Hx Tobacco Use: No Hx Alcohol Use: Yes Hx Substance Use: No - Immunization History Hx Tetanus Toxoid Vaccination: No Hx Influenza Vaccination: No Hx Pneumococcal Vaccination: No <Vincent Noe - Last Filed: 11/04/17 00:40> Vital Signs: Last Vital Signs Temp 98.3 F 11/03/17 21:27 Pulse 89 11/03/17 21:27 Resp 20 11/03/17 21:27 BP 148/99 H 11/03/17 21:27 Pulse Ox 100 11/04/17 00:40 - [facility] Procedures ALCOHOL DETOXIFICATION (07/04/15) APPLICATION OF SPLINT (03/20/13) CLOSURE SKIN & SUBCUTANEOUS NEC (08/14/13) DETOXIFICATION SERVICES FOR SUBSTANCE ABUSE TREATMENT (03/22/16) ESOPHAGOGASTRODUODENOSCOPY [EGD] W/CLOSED BIOPSY (02/16/15) OTHER GROUP THERAPY (03/12/13) PHYSICAL THERAPY NEC (07/04/15) TETANUS TOXOID ADMINIST (01/19/14) Review Of Systems Except As Marked, All Systems Reviewed And Found Negative. <Vincent Noe - Last Filed: 11/04/17 00:40> Physical Exam - Physical Exam Appears: No Acute Distress, Unkempt Skin: Normal Color, Warm, Dry Eye(s): bilateral: Normal Inspection, PERRL, EOMI Nose: Normal Throat: Normal Neck: Normal Cardiovascular: Rhythm Regular Respiratory: Normal Breath Sounds Gastrointestinal/Abdominal: Normal Exam, Soft, No Tenderness, No Guarding, No Rebound Back: Normal Inspection Extremity: Normal ROM <Vincent Noe - Last Filed: 11/04/17 00:40> ED Course And Treatment O2 Sat by Pulse Oximetry: 100 <Vincent Noe - Last Filed: 11/04/17 00:40> Medical Decision Making <Vincent Noe - Last Filed: 11/04/17 00:40> <Billie Atkins - Last Filed: 11/04/17 05:17> Medical Decision Making: well known to er for etoh abuse- will pend sobriety 1240: pt sleeping in nad. (Vincent Noe) Disposition <Vincent Noe - Last Filed: 11/04/17 00:40> - Disposition Disposition Time: 05:17 <Billie Atkins - Last Filed: 11/04/17 05:17> - Disposition Disposition: HOME/ ROUTINE Condition: GOOD Forms: [facility] (Russian) - Clinical Impression Clinical Impression: Alcohol intoxication
[2017-11-04 06:15] VITALS: BP 130/81; PULSE 80
== END 2017-11-04 06:10 | disposition home or self-care (01) ==
LOC: C.ER 20:39
DX: F10.129 Alcohol abuse with intoxication, unspecified (principal); E11.9 Type 2 diabetes mellitus without complications; I25.10 Atherosclerotic heart disease of native coronary artery without angina pectoris

== ENCOUNTER 2017-11-04 20:47 | Emergency (ER) | payer SELFPAY ==
[2017-11-04 20:47] VITALS: BMI 29.7
--- NOTE | 2017-11-04 23:00 | C.PDOC ---
History Of Present Illness pt presents with alcohol intoxication, which is chronic. Requests a place to sleep. denies any suicidal or homicidal ideation. Time Seen by Provider: 11/04/17 22:56 Chief Complaint (Nursing): Substance Abuse Past Medical History Reviewed: Historical Data, Nursing Documentation, Vital Signs Vital Signs: Last Vital Signs Temp 98 F 11/05/17 04:19 Pulse 86 11/05/17 04:19 Resp 18 11/05/17 04:19 BP 136/86 11/05/17 04:19 Pulse Ox 97 11/05/17 04:19 - Medical History PMH: Anxiety, Arthritis, Bronchitis, CAD, Depression, Diabetes (Pt. did not disclose to account underwriter, not aware), Fractures (RIGHT ARM), Gastritis, Gall Bladder Disease (s/p cholecystectomy), HTN, Post Traumatic Stress Disorder, Rheumatoid Arthritis, Seizures, Chronic Pain Denies: Chronic Kidney Disease Surgical History: Cholecystectomy - [facility] Procedures ALCOHOL DETOXIFICATION (07/04/15) APPLICATION OF SPLINT (03/20/13) CLOSURE SKIN & SUBCUTANEOUS NEC (08/14/13) DETOXIFICATION SERVICES FOR SUBSTANCE ABUSE TREATMENT (03/22/16) ESOPHAGOGASTRODUODENOSCOPY [EGD] W/CLOSED BIOPSY (02/16/15) OTHER GROUP THERAPY (03/12/13) PHYSICAL THERAPY NEC (07/04/15) TETANUS TOXOID ADMINIST (01/19/14) Family History: States: No Known Family Hx - Social History Hx Tobacco Use: No Hx Alcohol Use: Yes Hx Substance Use: No - Immunization History Hx Tetanus Toxoid Vaccination: No Hx Influenza Vaccination: No Hx Pneumococcal Vaccination: No Review Of Systems Constitutional: Negative for: Fever Cardiovascular: Negative for: Chest Pain Respiratory: Negative for: Shortness of Breath Gastrointestinal: Negative for: Abdominal Pain Musculoskeletal: Negative for: Back Pain Neurological: Negative for: Weakness Psych: Negative for: Suicidal ideation Physical Exam - Physical Exam Appears: Non-toxic, No Acute Distress Skin: Warm, Dry Neck: Supple Chest: Symmetrical Cardiovascular: Rhythm Regular Respiratory: No Rales, No Rhonchi Gastrointestinal/Abdominal: Soft, No Tenderness Extremity: Normal ROM Neurological/Psych: Oriented x3 Gait: Unsteady (due to inebriation) ED Course And Treatment O2 Sat by Pulse Oximetry: 99 Pulse Ox Interpretation: Normal Reevaluation Time: 05:31 Reassessment Condition: Improved Disposition Counseled Patient/Family Regarding: Studies Performed, Diagnosis, Need For Followup - Disposition Referrals: [facility] [Outside] Disposition: HOME/ ROUTINE Disposition Time: 23:00 Condition: FAIR Instructions: Alcohol Intoxication (DC) Forms: [facility] (Tamazight) - Clinical Impression Clinical Impression: Alcohol intoxication, Alcoholism /alcohol abuse
[2017-11-05 04:20] VITALS: PULSE 86; TEMP 98
[2017-11-05 05:52] VITALS: BP 145/86; RESP 16; O2SAT 98
== END 2017-11-05 05:35 | disposition home or self-care (01) ==
LOC: C.ER 20:47
DX: F10.229 Alcohol dependence with intoxication, unspecified (principal); Y90.9 Presence of alcohol in blood, level not specified

== ENCOUNTER 2017-11-05 20:17 | Emergency (ER) | payer SELFPAY ==
[2017-11-05 20:17] VITALS: BMI 29.7
--- NOTE | 2017-11-05 20:21 | C.PDOC ---
History Of Present Illness 57 year old male with previous hx of ETOH abuse is brought into the ED by EMS for public intoxication. upon arrival patient has alcohol on breath and is carrying a bottle of vodka on his jacket. Patient denies SI/HI, hallucinations, physical complaints. Time Seen by Provider: 11/05/17 20:19 History Per: Patient, EMS History/Exam Limitations: intoxication Onset/Duration Of Symptoms: Hrs Current Symptoms Are (Timing): Still Present Suicide/Self Injury Attempted (Context): None Modifying Factor(s): Alcohol Associated Symptoms: denies: Depression, Suicidal Thoughts, Suicidal Plan Recent travel outside of the [place]: No Additional History Per: Patient, EMS Past Medical History Reviewed: Historical Data, Nursing Documentation, Vital Signs Vital Signs: Last Vital Signs Temp 97.7 F 11/05/17 20:26 Pulse 91 H 11/05/17 20:26 Resp 16 11/05/17 20:26 BP 115/73 11/05/17 20:26 Pulse Ox 99 11/05/17 20:42 - Medical History PMH: Anxiety, Arthritis, Bronchitis, CAD, Depression, Diabetes (Pt. did not disclose to property underwriter, not aware), Fractures (RIGHT ARM), Gastritis, Gall Bladder Disease (s/p cholecystectomy), HTN, Post Traumatic Stress Disorder, Rheumatoid Arthritis, Seizures, Chronic Pain Denies: Chronic Kidney Disease Surgical History: Cholecystectomy - [facility] Procedures ALCOHOL DETOXIFICATION (07/04/15) APPLICATION OF SPLINT (03/20/13) CLOSURE SKIN & SUBCUTANEOUS NEC (08/14/13) DETOXIFICATION SERVICES FOR SUBSTANCE ABUSE TREATMENT (03/22/16) ESOPHAGOGASTRODUODENOSCOPY [EGD] W/CLOSED BIOPSY (02/16/15) OTHER GROUP THERAPY (03/12/13) PHYSICAL THERAPY NEC (07/04/15) TETANUS TOXOID ADMINIST (01/19/14) Family History: States: Unknown Family Hx - Social History Hx Tobacco Use: No Hx Alcohol Use: Yes Hx Substance Use: No - Immunization History Hx Tetanus Toxoid Vaccination: No Hx Influenza Vaccination: No Hx Pneumococcal Vaccination: No Review Of Systems Constitutional: Negative for: Fever, Chills Cardiovascular: Negative for: Chest Pain, Palpitations Respiratory: Negative for: Cough, Shortness of Breath Gastrointestinal: Negative for: Nausea, Vomiting, Abdominal Pain Skin: Negative for: Rash Neurological: Negative for: Weakness, Numbness Psych: Negative for: Depression, Suicidal ideation Physical Exam - Physical Exam Appears: Non-toxic, No Acute Distress Skin: Warm, Dry Head: Normacephalic Eye(s): bilateral: Normal Inspection Nose: No Discharge, No Deformity Oral Mucosa: Moist Neck: Normal ROM, Supple Chest: Symmetrical Cardiovascular: Rhythm Regular, No Murmur Respiratory: No Decreased Breath Sounds, No Rales, No Rhonchi, No Wheezing Gastrointestinal/Abdominal: Soft, No Tenderness, No Guarding, No Rebound Extremity: Normal ROM, No Pedal Edema, No Calf Tenderness, No Deformity, No Swelling Neurological/Psych: Oriented x3 ED Course And Treatment O2 Sat by Pulse Oximetry: 99 (On RA) Pulse Ox Interpretation: Normal Reevaluation Time: 05:23 Reassessment Condition: Improved Disposition Counseled Patient/Family Regarding: Studies Performed, Diagnosis, Need For Followup - Disposition Referrals: [facility] [Outside] Disposition: HOME/ ROUTINE Disposition Time: 20:19 Condition: FAIR Instructions: Alcohol Intoxication (DC) - Clinical Impression Clinical Impression: Alcohol intoxication, Alcohol abuse, daily use - Scribe Statement The provider has reviewed the documentation as recorded by the Scribe Woo Brown All medical record entries made by the Scribe were at my direction and personally dictated by me. I have reviewed the chart and agree that the record accurately reflects my personal performance of the history, physical exam, medical decision making, and the department course for this patient. I have also personally directed, reviewed, and agree with the discharge instructions and disposition.
[2017-11-05 20:27] VITALS: RESP 16; O2SAT 99
[2017-11-06 05:39] VITALS: BP 130/79; PULSE 96; TEMP 98.1
== END 2017-11-06 05:46 | disposition home or self-care (01) ==
LOC: C.ER 20:17
DX: F10.129 Alcohol abuse with intoxication, unspecified (principal); E11.9 Type 2 diabetes mellitus without complications; I25.10 Atherosclerotic heart disease of native coronary artery without angina pectoris

== ENCOUNTER 2017-11-06 20:14 | Emergency (ER) | payer SELFPAY ==
[2017-11-06 20:14] VITALS: BMI 29.7
--- NOTE | 2017-11-06 20:27 | C.PDOC ---
History Of Present Illness 57 y/o male presents to the ER requesting for bed to sleep in overnight. Patient admits that drank ETOH today. Of note, patient is well known to [facility] ER as he visited the ER many times in the past for substance abuse. Time Seen by Provider: 11/06/17 20:26 Chief Complaint (Nursing): Substance Abuse History Per: Patient History/Exam Limitations: no limitations Past Medical History Reviewed: Historical Data, Nursing Documentation, Vital Signs Vital Signs: Last Vital Signs Temp 97.6 F 11/07/17 02:41 Pulse 93 H 11/07/17 02:41 Resp 22 11/07/17 02:41 BP 134/88 11/07/17 02:41 Pulse Ox 98 11/07/17 02:41 - Medical History PMH: Anxiety, Arthritis, Bronchitis, CAD, Depression, Diabetes (Pt. did not disclose to marketing underwriter, not aware), Fractures (RIGHT ARM), Gastritis, Gall Bladder Disease (s/p cholecystectomy), HTN, Post Traumatic Stress Disorder, Rheumatoid Arthritis, Seizures, Chronic Pain Denies: Chronic Kidney Disease Surgical History: Cholecystectomy - [facility] Procedures ALCOHOL DETOXIFICATION (07/04/15) APPLICATION OF SPLINT (03/20/13) CLOSURE SKIN & SUBCUTANEOUS NEC (08/14/13) DETOXIFICATION SERVICES FOR SUBSTANCE ABUSE TREATMENT (03/22/16) ESOPHAGOGASTRODUODENOSCOPY [EGD] W/CLOSED BIOPSY (02/16/15) OTHER GROUP THERAPY (03/12/13) PHYSICAL THERAPY NEC (07/04/15) TETANUS TOXOID ADMINIST (01/19/14) Family History: States: No Known Family Hx - Social History Hx Tobacco Use: No Hx Alcohol Use: Yes Hx Substance Use: No - Immunization History Hx Tetanus Toxoid Vaccination: No Hx Influenza Vaccination: No Hx Pneumococcal Vaccination: No Review Of Systems Except As Marked, All Systems Reviewed And Found Negative. Physical Exam - Physical Exam Appears: No Acute Distress Skin: Normal Color, Warm Head: Atraumatic, Normacephalic Eye(s): bilateral: Normal Inspection, PERRL Nose: Normal Oral Mucosa: Moist Neck: Supple Chest: Symmetrical Cardiovascular: Rhythm Regular Respiratory: Normal Breath Sounds, No Accessory Muscle Use Extremity: Normal ROM Neurological/Psych: Oriented x3, Normal Speech, Normal Cognition, Normal Motor, Normal Sensation ED Course And Treatment O2 Sat by Pulse Oximetry: 99 (RA) Pulse Ox Interpretation: Normal Disposition - Disposition Referrals: [facility] [Outside] Disposition: HOME/ ROUTINE Disposition Time: 06:07 Condition: STABLE Instructions: Abuse of Alcohol (ED) Forms: [facility] (Turkmen) - POA Present On Arrival: None - Clinical Impression Clinical Impression: Alcoholism /alcohol abuse - Scribe Statement The provider has reviewed the documentation as recorded by the Rominaibe Gianni Jackson Provider Attestation: All medical record entries made by the Rominaibe were at my direction and personally dictated by me. I have reviewed the chart and agree that the record accurately reflects my personal performance of the history, physical exam, medical decision making, and the department course for this patient. I have also personally directed, reviewed, and agree with the discharge instructions and disposition.
[2017-11-07 06:46] VITALS: BP 138/74; PULSE 68; RESP 20; TEMP 97.3; O2SAT 96
== END 2017-11-07 06:40 | disposition home or self-care (01) ==
LOC: C.ER 20:14
DX: F10.20 Alcohol dependence, uncomplicated (principal); Y90.9 Presence of alcohol in blood, level not specified

== ENCOUNTER 2017-11-07 21:25 | Emergency (ER) | payer SELFPAY ==
[2017-11-07 21:25] VITALS: BMI 29.7
[2017-11-07 23:05] VITALS: RESP 20
--- NOTE | 2017-11-08 00:27 | C.PDOC ---
History Of Present Illness 57 year old male with well known history of alcohol abuse presents to the ED intoxicated. 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 Patient denies SI/HI, hallucinations, physical complaints. Time Seen by Provider: 11/07/17 23:25 Chief Complaint (Nursing): Substance Abuse History Per: Patient History/Exam Limitations: intoxication Onset/Duration Of Symptoms: Hrs Current Symptoms Are (Timing): Still Present Suicide/Self Injury Attempted (Context): None Modifying Factor(s): Alcohol Associated Symptoms: denies: Depression, Suicidal Thoughts, Suicidal Plan Recent travel outside of the [place]: No Additional History Per: Patient Past Medical History Reviewed: Historical Data, Nursing Documentation, Vital Signs Vital Signs: Last Vital Signs Temp 98.1 F 11/08/17 05:45 Pulse 72 11/08/17 05:45 Resp 20 11/08/17 05:45 BP 128/76 11/08/17 05:45 Pulse Ox 97 11/08/17 06:23 - Medical History PMH: Anxiety, Arthritis, Bronchitis, CAD, Depression, Diabetes (Pt. 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, not aware), Fractures (RIGHT ARM), Gastritis, Gall Bladder Disease (s/p cholecystectomy), HTN, Post Traumatic Stress Disorder, Rheumatoid Arthritis, Seizures, Chronic Pain Denies: Chronic Kidney Disease Surgical History: Cholecystectomy - [facility] Procedures ALCOHOL DETOXIFICATION (07/04/15) APPLICATION OF SPLINT (03/20/13) CLOSURE SKIN & SUBCUTANEOUS NEC (08/14/13) DETOXIFICATION SERVICES FOR SUBSTANCE ABUSE TREATMENT (03/22/16) ESOPHAGOGASTRODUODENOSCOPY [EGD] W/CLOSED BIOPSY (02/16/15) OTHER GROUP THERAPY (03/12/13) PHYSICAL THERAPY NEC (07/04/15) TETANUS TOXOID ADMINIST (01/19/14) Family History: States: Unknown Family Hx - Social History Hx Tobacco Use: No Hx Alcohol Use: Yes Hx Substance Use: No - Immunization History Hx Tetanus Toxoid Vaccination: No Hx Influenza Vaccination: No Hx Pneumococcal Vaccination: No Review Of Systems Except As Marked, All Systems Reviewed And Found Negative. Psych: Negative for: Depression, Suicidal ideation Physical Exam - Physical Exam Appears: Non-toxic, Unkempt Skin: Normal Color, Warm, Dry Head: Atraumatic, Normacephalic Eye(s): bilateral: Normal Inspection Nose: No Discharge, No Deformity Oral Mucosa: Moist Neck: Normal ROM, Supple Chest: Symmetrical Cardiovascular: Rhythm Regular, No Murmur Respiratory: Normal Breath Sounds, No Rales, No Rhonchi, No Wheezing Gastrointestinal/Abdominal: Soft, No Tenderness, No Guarding, No Rebound Extremity: Normal ROM, No Pedal Edema, No Calf Tenderness, No Deformity, No Swelling Neurological/Psych: Oriented x3, Normal Speech, Normal Cognition ED Course And Treatment O2 Sat by Pulse Oximetry: 97 (On RA) Pulse Ox Interpretation: Normal Medical Decision Making Medical Decision Making: Patient is awake, alert, and ambulating in the ED with a steady gait. Patient is stable enough for d/c. Disposition - Disposition Disposition: HOME/ ROUTINE Disposition Time: 06:00 Condition: STABLE Forms: [facility] (Mongolian) - Clinical Impression Clinical Impression: Homeless single person - Scribe Statement The provider has reviewed the documentation as recorded by the Scribe Woo Brown All medical record entries made by the Scribe were at my direction and personally dictated by me. I have reviewed the chart and agree that the record accurately reflects my personal performance of the history, physical exam, medical decision making, and the department course for this patient. I have also personally directed, reviewed, and agree with the discharge instructions and disposition.
[2017-11-08 06:23] VITALS: BP 128/76; PULSE 72; TEMP 98.1; O2SAT 97
== END 2017-11-08 05:45 | disposition home or self-care (01) ==
LOC: C.ER 21:25
DX: Z59.0 Homelessness (principal)

== ENCOUNTER 2017-11-08 20:58 | Emergency (ER) | payer MEDICAID, OTHER ==
[2017-11-08 20:58] VITALS: BMI 29.7
--- NOTE | 2017-11-08 22:27 | C.PDOC ---
History Of Present Illness Patient presents to the ER with acute ETOH intoxication. Denies any physical complaints at this time. Time Seen by Provider: 11/08/17 22:25 Chief Complaint (Nursing): Trauma History Per: Patient History/Exam Limitations: no limitations Onset/Duration Of Symptoms: Hrs Current Symptoms Are (Timing): Still Present Suicide/Self Injury Attempted (Context): None Modifying Factor(s): Alcohol Severity: None Pain Scale Rating Of: 0 Associated Symptoms: denies: Depression, Suicidal Thoughts, Suicidal Plan Recent travel outside of the [place]: No Past Medical History Reviewed: Historical Data, Nursing Documentation, Vital Signs Vital Signs: Last Vital Signs Temp 98 F 11/08/17 21:03 Pulse 74 11/09/17 02:30 Resp 16 11/09/17 02:30 BP 146/74 11/09/17 02:30 Pulse Ox 97 11/09/17 02:30 - Medical History PMH: Anxiety, Arthritis, Bronchitis, CAD, Depression, Diabetes (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 aware), Fractures (RIGHT ARM), Gastritis, Gall Bladder Disease (s/p cholecystectomy), HTN, Post Traumatic Stress Disorder, Rheumatoid Arthritis, Seizures, Chronic Pain Surgical History: Cholecystectomy - [facility] Procedures ALCOHOL DETOXIFICATION (07/04/15) APPLICATION OF SPLINT (03/20/13) CLOSURE SKIN & SUBCUTANEOUS NEC (08/14/13) DETOXIFICATION SERVICES FOR SUBSTANCE ABUSE TREATMENT (03/22/16) ESOPHAGOGASTRODUODENOSCOPY [EGD] W/CLOSED BIOPSY (02/16/15) OTHER GROUP THERAPY (03/12/13) PHYSICAL THERAPY NEC (07/04/15) TETANUS TOXOID ADMINIST (01/19/14) Family History: States: No Known Family Hx - Social History Hx Tobacco Use: No Hx Alcohol Use: Yes Hx Substance Use: No - Immunization History Hx Tetanus Toxoid Vaccination: No Hx Influenza Vaccination: No Hx Pneumococcal Vaccination: No Review Of Systems Constitutional: Negative for: Fever, Chills Gastrointestinal: Negative for: Nausea, Vomiting, Diarrhea Skin: Negative for: Bruising Neurological: Negative for: Weakness, Altered Mental Status Psych: Negative for: Anxiety Physical Exam - Physical Exam Appears: Non-toxic, Other (ETOH on breath. No signs of injury.) Skin: Warm, Dry Head: Normacephalic, No Tenderness, No Abrasion Eye(s): bilateral: Normal Inspection Oral Mucosa: Moist Neck: Supple Chest: Symmetrical, No Tenderness Cardiovascular: Rhythm Regular Respiratory: No Rales, No Rhonchi, No Wheezing Gastrointestinal/Abdominal: Soft, No Tenderness Extremity: Bilateral: Normal ROM Pulses: Left Dorsalis Pedis: Normal, Right Dorsalis Pedis: Normal Neurological/Psych: Oriented x3, Normal Speech Gait: Steady ED Course And Treatment O2 Sat by Pulse Oximetry: 97 (Room air) Pulse Ox Interpretation: Normal Progress Note: 11:45 pm arousable., no complaints. 2;55am vitals stable. 5: 15 am arousable, ambulating without difficulty Reevaluation Time: 06:09 Reassessment Condition: Improved Disposition Counseled Patient/Family Regarding: Studies Performed, Diagnosis, Need For Followup - Disposition Referrals: [facility] at [facility] [Outside] Disposition: HOME/ ROUTINE Disposition Time: 22:26 Condition: FAIR Instructions: Alcohol Intoxication (DC) Forms: [facility] (Nepali) - Clinical Impression Clinical Impression: Alcohol intoxication, Alcohol abuse, daily use - Scribe Statement The provider has reviewed the documentation as recorded by the Scribjosé miguel Ramirez All medical record entries made by the Scribe were at my direction and personally dictated by me. I have reviewed the chart and agree that the record accurately reflects my personal performance of the history, physical exam, medical decision making, and the department course for this patient. I have also personally directed, reviewed, and agree with the discharge instructions and disposition.
[2017-11-09 06:54] VITALS: BP 150/70; PULSE 82; RESP 18; TEMP 98.4; O2SAT 99
== END 2017-11-09 06:54 | disposition home or self-care (01) ==
LOC: SUPCPDRO 20:58 → C.ER 20:58
DX: F10.129 Alcohol abuse with intoxication, unspecified (principal); Y90.9 Presence of alcohol in blood, level not specified

== ENCOUNTER 2017-11-09 20:07 | Emergency (ER) | payer OTHER ==
[2017-11-09 20:08] VITALS: BMI 29.7
--- NOTE | 2017-11-09 21:51 | C.PDOC ---
History Of Present Illness Wally Pina is a 57 year old male who presents to the emergency department with acute ETOH intoxication. Patient is well known in the ER for multiple visits. He denies any physical complaints at this time. PMD: None provided. Time Seen by Provider: 11/09/17 21:49 Chief Complaint (Nursing): Substance Abuse History Per: Patient History/Exam Limitations: no limitations Onset/Duration Of Symptoms: Hrs Current Symptoms Are (Timing): Still Present Suicide/Self Injury Attempted (Context): None Modifying Factor(s): Alcohol Pain Scale Rating Of: 0 Associated Symptoms: denies: Depression, Suicidal Thoughts, Suicidal Plan Involuntary Hold By: None Past Medical History Reviewed: Historical Data, Nursing Documentation, Vital Signs Vital Signs: Last Vital Signs Temp Pulse Resp BP Pulse Ox 98 11/10/17 04:14 - Medical History PMH: Anxiety, Arthritis, Bronchitis, CAD, Depression, Diabetes (Pt. 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 aware), Fractures (RIGHT ARM), Gastritis, Gall Bladder Disease (s/p cholecystectomy), HTN, Post Traumatic Stress Disorder, Rheumatoid Arthritis, Seizures, Chronic Pain Denies: Chronic Kidney Disease Surgical History: Cholecystectomy - [facility] Procedures ALCOHOL DETOXIFICATION (07/04/15) APPLICATION OF SPLINT (03/20/13) CLOSURE SKIN & SUBCUTANEOUS NEC (08/14/13) DETOXIFICATION SERVICES FOR SUBSTANCE ABUSE TREATMENT (03/22/16) ESOPHAGOGASTRODUODENOSCOPY [EGD] W/CLOSED BIOPSY (02/16/15) OTHER GROUP THERAPY (03/12/13) PHYSICAL THERAPY NEC (07/04/15) TETANUS TOXOID ADMINIST (01/19/14) Family History: States: Unknown Family Hx - Social History Hx Tobacco Use: No Hx Alcohol Use: Yes Hx Substance Use: No - Immunization History Hx Tetanus Toxoid Vaccination: No Hx Influenza Vaccination: No Hx Pneumococcal Vaccination: No Review Of Systems Constitutional: Negative for: Fever, Chills Gastrointestinal: Negative for: Nausea, Vomiting, Diarrhea Skin: Negative for: Bruising Neurological: Negative for: Weakness, Altered Mental Status Psych: Negative for: Anxiety Physical Exam - Physical Exam Appears: Non-toxic, Other (ETOH on breath, no signs of injury. ) Skin: Warm, Dry Head: Normacephalic, No Tenderness, No Abrasion Eye(s): bilateral: Normal Inspection Oral Mucosa: Moist Neck: Supple Chest: Symmetrical, No Tenderness Cardiovascular: Rhythm Regular Respiratory: No Rales, No Rhonchi, No Wheezing Gastrointestinal/Abdominal: Soft, No Tenderness Extremity: Normal ROM Pulses: Left Dorsalis Pedis: Normal, Right Dorsalis Pedis: Normal Neurological/Psych: Oriented x3, Normal Speech Gait: Steady ED Course And Treatment O2 Sat by Pulse Oximetry: 98 Pulse Ox Interpretation: Normal Progress Note: ambulating unassisted to the bathroom Reevaluation Time: 04:13 Reassessment Condition: Improved Disposition Counseled Patient/Family Regarding: Studies Performed, Diagnosis, Need For Followup - Disposition Referrals: [facility] [Outside] Disposition: HOME/ ROUTINE Disposition Time: 21:50 Condition: FAIR Instructions: Alcohol Intoxication (DC) Forms: [facility] [employer] (Barbadian) - Clinical Impression Clinical Impression: Alcohol intoxication, Alcohol abuse, daily use - Scribe Statement Blake Denise Provider Attestation: All medical record entries made by the Scribe were at my direction and personally dictated by me. I have reviewed the chart and agree that the record accurately reflects my personal performance of the history, physical exam, medical decision making, and the department course for this patient. I have also personally directed, reviewed, and agree with the discharge instructions and disposition.
[2017-11-10 05:52] VITALS: BP 130/74; PULSE 80; RESP 20; TEMP 98; O2SAT 97
== END 2017-11-10 05:48 | disposition home or self-care (01) ==
LOC: C.ER 20:07
DX: F10.229 Alcohol dependence with intoxication, unspecified (principal); Y90.9 Presence of alcohol in blood, level not specified

== ENCOUNTER 2017-11-10 19:42 | Emergency (ER) | payer OTHER ==
[2017-11-10 19:42] VITALS: BMI 29.7
--- NOTE | 2017-11-10 20:18 | C.PDOC ---
History Of Present Illness 57-year-old male, PMHx includes EtOH Abuse, presents to the emergency department with complaints of intoxication. Patient has a Hx of multiple visits to the ER for same complaint in the past. Time Seen by Provider: 11/10/17 19:48 Chief Complaint (Nursing): Substance Abuse History Per: Patient History/Exam Limitations: no limitations Past Medical History Reviewed: Historical Data, Nursing Documentation, Vital Signs Vital Signs: Last Vital Signs Temp 98.6 F 11/11/17 00:29 Pulse 95 H 11/11/17 00:29 Resp 18 11/11/17 00:29 BP 144/94 H 11/11/17 00:29 Pulse Ox 98 11/11/17 00:29 - Medical History PMH: Anxiety, Arthritis, Bronchitis, CAD, Depression, Diabetes (Pt. 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 not disclose to job specification writer, not aware), Fractures (RIGHT ARM), Gastritis, Gall Bladder Disease (s/p cholecystectomy), HTN, Post Traumatic Stress Disorder, Rheumatoid Arthritis, Seizures, Chronic Pain Surgical History: Cholecystectomy - [facility] Procedures ALCOHOL DETOXIFICATION (07/04/15) APPLICATION OF SPLINT (03/20/13) CLOSURE SKIN & SUBCUTANEOUS NEC (08/14/13) DETOXIFICATION SERVICES FOR SUBSTANCE ABUSE TREATMENT (03/22/16) ESOPHAGOGASTRODUODENOSCOPY [EGD] W/CLOSED BIOPSY (02/16/15) OTHER GROUP THERAPY (03/12/13) PHYSICAL THERAPY NEC (07/04/15) TETANUS TOXOID ADMINIST (01/19/14) Family History: States: No Known Family Hx - Social History Hx Tobacco Use: No Hx Alcohol Use: Yes Hx Substance Use: No - Immunization History Hx Tetanus Toxoid Vaccination: No Hx Influenza Vaccination: No Hx Pneumococcal Vaccination: No Review Of Systems Constitutional: Negative for: Fever Cardiovascular: Negative for: Chest Pain Respiratory: Negative for: Shortness of Breath Gastrointestinal: Negative for: Vomiting Neurological: Negative for: Headache, Dizziness Psych: Negative for: Suicidal ideation Physical Exam - Physical Exam Appears: Non-toxic, No Acute Distress Skin: Warm, Dry, No Rash, Other (intoxicated, ETOH on breath) Head: Atraumatic, Normacephalic Eye(s): bilateral: Normal Inspection Nose: Normal Oral Mucosa: Moist Lips: Normal Appearing Neck: Normal ROM Extremity: Normal ROM Neurological/Psych: Oriented x3 ED Course And Treatment O2 Sat by Pulse Oximetry: 96 (on RA) Pulse Ox Interpretation: Normal Disposition - Disposition Disposition: HOME/ ROUTINE Disposition Time: 00:40 Condition: STABLE Instructions: Alcohol Intoxication (ED) Forms: [facility] (Anguillan) Print Language: SETSWANA - Clinical Impression Clinical Impression: Acute alcohol intoxication - Scribe Statement The provider has reviewed the documentation as recorded by the Scribe (Florinda Valentino) All medical record entries made by the Scribe were at my direction and personally dictated by me. I have reviewed the chart and agree that the record accurately reflects my personal performance of the history, physical exam, medical decision making, and the department course for this patient. I have also personally directed, reviewed, and agree with the discharge instructions and disposition.
[2017-11-11 00:30] VITALS: BP 144/94; PULSE 95; RESP 18; TEMP 98.6
[2017-11-11 00:50] VITALS: O2SAT 96
== END 2017-11-11 00:56 | disposition home or self-care (01) ==
LOC: C.ER 19:42
DX: F10.129 Alcohol abuse with intoxication, unspecified (principal); Y90.9 Presence of alcohol in blood, level not specified

== ENCOUNTER 2017-11-11 20:57 | Emergency (ER) | payer OTHER ==
[2017-11-11 20:58] VITALS: BMI 29.7
[2017-11-11 22:09] VITALS: BP 135/82; PULSE 94; RESP 20; TEMP 97.9; O2SAT 96
== END 2017-11-11 22:30 | disposition left against medical advice (07) ==
LOC: C.ER 20:57
DX: Z02.89 Encounter for other administrative examinations (principal); F10.10 Alcohol abuse, uncomplicated

== ENCOUNTER 2017-11-12 19:28 | Emergency (ER) | payer OTHER ==
[2017-11-12 19:28] VITALS: BMI 29.7
[2017-11-12 23:53] VITALS: O2SAT 97
--- NOTE | 2017-11-13 01:17 | C.PDOC ---
History Of Present Illness 57 year old male presents to the ER with acute ETOH intoxication, requesting a place to spend the night. Denies physical complaints at this time. Chief Complaint (Nursing): Substance Abuse History Per: Patient History/Exam Limitations: no limitations Onset/Duration Of Symptoms: Hrs Current Symptoms Are (Timing): Still Present Suicide/Self Injury Attempted (Context): None Modifying Factor(s): None Associated Symptoms: denies: Depression, Suicidal Thoughts, Suicidal Plan Involuntary Hold By: None Recent travel outside of the [place]: No Past Medical History Reviewed: Historical Data, Nursing Documentation, Vital Signs Vital Signs: Last Vital Signs Temp 98.6 F 11/12/17 23:52 Pulse 95 H 11/12/17 23:52 Resp 18 11/12/17 23:52 BP 127/81 11/12/17 23:52 Pulse Ox 97 11/13/17 01:17 - Medical History PMH: Anxiety, Arthritis, Bronchitis, CAD, Depression, Diabetes (Pt. 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 book writer, not aware), Fractures (RIGHT ARM), Gastritis, Gall Bladder Disease (s/p cholecystectomy), HTN, Post Traumatic Stress Disorder, Rheumatoid Arthritis, Seizures, Chronic Pain Surgical History: Cholecystectomy - [facility] Procedures ALCOHOL DETOXIFICATION (07/04/15) APPLICATION OF SPLINT (03/20/13) CLOSURE SKIN & SUBCUTANEOUS NEC (08/14/13) DETOXIFICATION SERVICES FOR SUBSTANCE ABUSE TREATMENT (03/22/16) ESOPHAGOGASTRODUODENOSCOPY [EGD] W/CLOSED BIOPSY (02/16/15) OTHER GROUP THERAPY (03/12/13) PHYSICAL THERAPY NEC (07/04/15) TETANUS TOXOID ADMINIST (01/19/14) Family History: States: Unknown Family Hx - Social History Hx Tobacco Use: No Hx Alcohol Use: Yes Hx Substance Use: No - Immunization History Hx Tetanus Toxoid Vaccination: No Hx Influenza Vaccination: No Hx Pneumococcal Vaccination: No Review Of Systems Constitutional: Negative for: Fever, Chills Gastrointestinal: Negative for: Nausea, Vomiting, Diarrhea Physical Exam - Physical Exam Appears: Non-toxic, No Acute Distress, Other (ETOH on breath, no sign of injury) Skin: Normal Color, Warm, Dry Head: Atraumatic, Normacephalic Eye(s): bilateral: Normal Inspection Oral Mucosa: Moist Chest: Symmetrical, No Tenderness Respiratory: Normal Breath Sounds, No Rales, No Rhonchi, No Wheezing Gastrointestinal/Abdominal: Soft, No Tenderness Neurological/Psych: Oriented x3, Normal Speech ED Course And Treatment O2 Sat by Pulse Oximetry: 97 (Room air) Pulse Ox Interpretation: Normal Disposition Counseled Patient/Family Regarding: Diagnosis - Disposition Referrals: [facility] [Outside] Disposition: HOME/ ROUTINE Disposition Time: 03:30 Condition: STABLE Instructions: Abuse of Alcohol (ED) Forms: [facility] (Mozambican) - POA Present On Arrival: None - Clinical Impression Clinical Impression: Alcohol abuse with intoxication - Scribe Statement The provider has reviewed the documentation as recorded by the Scribe Fabián Ramirez All medical record entries made by the Scribe were at my direction and personally dictated by me. I have reviewed the chart and agree that the record accurately reflects my personal performance of the history, physical exam, medical decision making, and the department course for this patient. I have also personally directed, reviewed, and agree with the discharge instructions and disposition.
[2017-11-13 06:25] VITALS: BP 135/89; PULSE 79; RESP 20; TEMP 98.1
== END 2017-11-13 06:25 | disposition home or self-care (01) ==
LOC: C.ER 19:28
DX: F10.129 Alcohol abuse with intoxication, unspecified (principal); Y90.9 Presence of alcohol in blood, level not specified

== ENCOUNTER 2017-11-13 20:20 | Emergency (ER) | payer OTHER ==
[2017-11-13 20:20] VITALS: BMI 29.7
--- NOTE | 2017-11-13 20:55 | C.PDOC ---
History Of Present Illness 57 year old male with known substance abuse presents to the ED intoxicated. Patient walked into the ED intoxicated, admits to drinking alcohol and has alcohol on breath. Patient requesting a place to sleep. Patient denies SI/HI, hallucinations, nausea, vomit, CP, SOB, weakness, numbness. Time Seen by Provider: 11/13/17 20:53 Chief Complaint (Nursing): Substance Abuse History Per: Patient History/Exam Limitations: no limitations Onset/Duration Of Symptoms: Days Current Symptoms Are (Timing): Still Present Suicide/Self Injury Attempted (Context): None Modifying Factor(s): Alcohol Associated Symptoms: denies: Depression, Suicidal Thoughts, Suicidal Plan Involuntary Hold By: None Recent travel outside of the [place]: No Additional History Per: Patient Past Medical History Reviewed: Historical Data, Nursing Documentation, Vital Signs Vital Signs: Last Vital Signs Temp 98.2 F 11/13/17 20:52 Pulse 90 11/14/17 03:55 Resp 18 11/14/17 03:55 BP 111/72 11/14/17 03:55 Pulse Ox 96 11/14/17 03:55 - Medical History PMH: Anxiety, Arthritis, Bronchitis, CAD, Depression, Diabetes (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, not aware), Fractures (RIGHT ARM), Gastritis, Gall Bladder Disease (s/p cholecystectomy), HTN, Post Traumatic Stress Disorder, Rheumatoid Arthritis, Seizures, Chronic Pain Denies: Chronic Kidney Disease Surgical History: Cholecystectomy - [facility] Procedures ALCOHOL DETOXIFICATION (07/04/15) APPLICATION OF SPLINT (03/20/13) CLOSURE SKIN & SUBCUTANEOUS NEC (08/14/13) DETOXIFICATION SERVICES FOR SUBSTANCE ABUSE TREATMENT (03/22/16) ESOPHAGOGASTRODUODENOSCOPY [EGD] W/CLOSED BIOPSY (02/16/15) OTHER GROUP THERAPY (03/12/13) PHYSICAL THERAPY NEC (07/04/15) TETANUS TOXOID ADMINIST (01/19/14) Family History: States: Unknown Family Hx - Social History Hx Tobacco Use: No Hx Alcohol Use: Yes Hx Substance Use: No - Immunization History Hx Tetanus Toxoid Vaccination: No Hx Influenza Vaccination: No Hx Pneumococcal Vaccination: No Review Of Systems Constitutional: Negative for: Fever, Chills Cardiovascular: Negative for: Chest Pain Respiratory: Negative for: Cough, Shortness of Breath Gastrointestinal: Negative for: Nausea, Vomiting, Abdominal Pain Skin: Negative for: Rash Neurological: Negative for: Weakness, Numbness, Headache Physical Exam - Physical Exam Appears: Non-toxic, No Acute Distress Skin: Warm, Dry Head: Normacephalic Eye(s): bilateral: Normal Inspection Nose: No Discharge, No Deformity Oral Mucosa: Moist Neck: Normal ROM, Supple Chest: Symmetrical Cardiovascular: Rhythm Regular, No Murmur Respiratory: No Decreased Breath Sounds, No Rales, No Rhonchi, No Wheezing Gastrointestinal/Abdominal: Soft, No Tenderness, No Guarding, No Rebound Extremity: Normal ROM, No Pedal Edema, No Calf Tenderness, No Deformity, No Swelling Neurological/Psych: Oriented x3 Gait: Steady ED Course And Treatment ECG: Interpreted By Me, Viewed By Me ECG Rhythm: Sinus Rhythm (96), Nonspecific Changes O2 Sat by Pulse Oximetry: 97 (On RA) Pulse Ox Interpretation: Normal Progress Note: 10:03 PM . pt without any complaints. RN thought pt was seizing, but pt is aaox3, answering appropriatly, no seizure observed Reevaluation Time: 05:10 Reassessment Condition: Improved Disposition Counseled Patient/Family Regarding: Studies Performed, Diagnosis, Need For Followup - Disposition Referrals: [facility] at [facility] [Outside] Disposition: HOME/ ROUTINE Disposition Time: 20:53 Condition: FAIR Instructions: Alcohol Intoxication (DC) Forms: [facility] (Italian) - Clinical Impression Clinical Impression: Alcohol intoxication, Alcohol abuse, daily use - Scribe Statement The provider has reviewed the documentation as recorded by the Scribe Woo Brown All medical record entries made by the Scribe were at my direction and personally dictated by me. I have reviewed the chart and agree that the record accurately reflects my personal performance of the history, physical exam, medical decision making, and the department course for this patient. I have also personally directed, reviewed, and agree with the discharge instructions and disposition.
[2017-11-13] MEDS ORDERED: Ammonia 2% Inhalant ONE (21:46)
[2017-11-14 06:22] VITALS: BP 118/72; PULSE 88; RESP 20; TEMP 98.3; O2SAT 95
--- NOTE | 2017-11-14 12:49 | CARD ---
APPROVED REPORT EKG Measurement Heart [id number] <Conclusion> Normal sinus rhythm Prolonged QT Abnormal ECG
== END 2017-11-14 05:11 | disposition home or self-care (01) ==
LOC: C.ER 20:20
DX: F10.129 Alcohol abuse with intoxication, unspecified (principal); Y90.9 Presence of alcohol in blood, level not specified

== ENCOUNTER 2017-11-14 20:08 | Emergency (ER) | payer OTHER ==
[2017-11-14 20:08] VITALS: BMI 29.7
--- NOTE | 2017-11-14 22:38 | C.PDOC ---
History Of Present Illness Patient presents to the ER with acute ETOH intoxication, requesting a place to spend the night. Denies physical complaints at this time. Time Seen by Provider: 11/14/17 22:36 Chief Complaint (Nursing): Substance Abuse History Per: Patient History/Exam Limitations: no limitations Onset/Duration Of Symptoms: Hrs Current Symptoms Are (Timing): Still Present Suicide/Self Injury Attempted (Context): None Modifying Factor(s): Alcohol Severity: None Pain Scale Rating Of: 0 Associated Symptoms: denies: Depression, Suicidal Thoughts, Suicidal Plan Involuntary Hold By: None Recent travel outside of the [place]: No Past Medical History Reviewed: Historical Data, Nursing Documentation, Vital Signs Vital Signs: Last Vital Signs Temp 98 F 11/15/17 04:11 Pulse 77 11/15/17 04:11 Resp 18 11/15/17 04:11 BP 133/76 11/15/17 04:11 Pulse Ox 96 11/15/17 04:11 - Medical History PMH: Anxiety, Arthritis, Bronchitis, CAD, Depression, Diabetes (Pt. did not disclose to public relations writer, not aware), Fractures (RIGHT ARM), Gastritis, Gall Bladder Disease (s/p cholecystectomy), HTN, Post Traumatic Stress Disorder, Rheumatoid Arthritis, Seizures, Chronic Pain Surgical History: Cholecystectomy - [facility] Procedures ALCOHOL DETOXIFICATION (07/04/15) APPLICATION OF SPLINT (03/20/13) CLOSURE SKIN & SUBCUTANEOUS NEC (08/14/13) DETOXIFICATION SERVICES FOR SUBSTANCE ABUSE TREATMENT (03/22/16) ESOPHAGOGASTRODUODENOSCOPY [EGD] W/CLOSED BIOPSY (02/16/15) OTHER GROUP THERAPY (03/12/13) PHYSICAL THERAPY NEC (07/04/15) TETANUS TOXOID ADMINIST (01/19/14) Family History: States: No Known Family Hx - Social History Hx Tobacco Use: No Hx Alcohol Use: Yes Hx Substance Use: No - Immunization History Hx Tetanus Toxoid Vaccination: No Hx Influenza Vaccination: No Hx Pneumococcal Vaccination: No Review Of Systems Constitutional: Negative for: Fever, Chills Gastrointestinal: Negative for: Nausea, Vomiting, Diarrhea Physical Exam - Physical Exam Appears: Non-toxic, Other (ETOH on breath. No signs of injury.) Skin: Warm, Dry Head: Normacephalic Oral Mucosa: Moist Chest: Symmetrical, No Tenderness Cardiovascular: Rhythm Regular Respiratory: No Rales, No Rhonchi, No Wheezing Gastrointestinal/Abdominal: Soft, No Tenderness Neurological/Psych: Oriented x3 ED Course And Treatment O2 Sat by Pulse Oximetry: 100 (Room air) Pulse Ox Interpretation: Normal Reevaluation Time: 05:22 Reassessment Condition: Improved Disposition Counseled Patient/Family Regarding: Studies Performed, Diagnosis, Need For Followup - Disposition Referrals: [facility] [Outside] Disposition: HOME/ ROUTINE Disposition Time: 22:37 Condition: FAIR Instructions: Alcohol Intoxication (DC) Forms: [employer] (Danish) - Clinical Impression Clinical Impression: Alcohol intoxication, Alcohol abuse, daily use - Scribe Statement The provider has reviewed the documentation as recorded by the Scribe Fabián Ramirez All medical record entries made by the Scribe were at my direction and personally dictated by me. I have reviewed the chart and agree that the record accurately reflects my personal performance of the history, physical exam, medical decision making, and the department course for this patient. I have also personally directed, reviewed, and agree with the discharge instructions and disposition.
[2017-11-15 05:37] VITALS: BP 112/75; PULSE 96; RESP 20; TEMP 98.4; O2SAT 95
--- NOTE | 2017-11-16 18:36 | CARD ---
APPROVED REPORT EKG Measurement Heart [id number] <Conclusion> Normal sinus rhythm Normal ECG
== END 2017-11-15 06:12 | disposition home or self-care (01) ==
LOC: SUPCPDRO 20:08 → C.ER 20:08
DX: F10.129 Alcohol abuse with intoxication, unspecified (principal); E11.9 Type 2 diabetes mellitus without complications; I25.10 Atherosclerotic heart disease of native coronary artery without angina pectoris

== ENCOUNTER 2017-11-15 06:44 | Observation (INO) | payer OTHER ==
[2017-11-15 06:45] VITALS: BMI 29.7
[2017-11-15] MEDS ORDERED: Sodium Chloride 0.9% 1,000 ML IV ONE (07:24)
--- NOTE | 2017-11-15 07:30 | C.PDOC ---
History Of Present Illness Patient is a 57 year old male, with PMHx of HTN, seizures, presents to ED for evaluation of chest pain. Pt was discharged overnight but felt sudden left sided chest pain and generalized weakness on his way out, and was brought back to the ER by security incident handler for further evaluation. Pt was reported to have tonic-clonic seizure, notes taking his last dose of Dilantin 2 days ago. Notes taking Phenobarbital. Otherwise, denies n/v/d, shortness of breath, cough, or fever. Time Seen by Provider: 11/15/17 07:07 Chief Complaint (Nursing): Chest Pain History Per: Patient History/Exam Limitations: no limitations Onset/Duration Of Symptoms: Hrs, Sudden Onset Current Symptoms Are (Timing): Still Present Quality: "Pain" Associated Symptoms: denies: Nausea, Dyspnea, Diaphoresis, Syncope Exacerbating Factors: None Alleviating Factors: None Past Medical History Reviewed: Historical Data, Nursing Documentation, Vital Signs Vital Signs: Last Vital Signs Temp 98.2 F 11/15/17 06:50 Pulse 94 H 11/15/17 06:50 Resp 18 11/15/17 06:50 BP 128/93 H 11/15/17 06:50 Pulse Ox 100 11/15/17 07:56 - Medical History PMH: Anxiety, Arthritis, Bronchitis, CAD, Depression, Diabetes (Pt. did not disclose to insurance writer, not aware), Fractures (RIGHT ARM), Gastritis, Gall Bladder Disease (s/p cholecystectomy), HTN, Post Traumatic Stress Disorder, Rheumatoid Arthritis, Seizures, Chronic Pain Denies: Chronic Kidney Disease Surgical History: Cholecystectomy - [facility] Procedures ALCOHOL DETOXIFICATION (07/04/15) APPLICATION OF SPLINT (03/20/13) CLOSURE SKIN & SUBCUTANEOUS NEC (08/14/13) DETOXIFICATION SERVICES FOR SUBSTANCE ABUSE TREATMENT (03/22/16) ESOPHAGOGASTRODUODENOSCOPY [EGD] W/CLOSED BIOPSY (02/16/15) OTHER GROUP THERAPY (03/12/13) PHYSICAL THERAPY NEC (07/04/15) TETANUS TOXOID ADMINIST (01/19/14) Family History: States: Unknown Family Hx - Social History Hx Tobacco Use: No Hx Alcohol Use: Yes Hx Substance Use: No - Immunization History Hx Tetanus Toxoid Vaccination: No Hx Influenza Vaccination: No Hx Pneumococcal Vaccination: No Review Of Systems Except As Marked, All Systems Reviewed And Found Negative. Constitutional: Positive for: Weakness. Negative for: Fever, Chills Cardiovascular: Positive for: Chest Pain. Negative for: Palpitations, Light Headedness Respiratory: Negative for: Cough, Shortness of Breath, SOB with Excertion Gastrointestinal: Negative for: Nausea, Vomiting, Abdominal Pain, Diarrhea Neurological: Negative for: Headache, Dizziness Physical Exam - Physical Exam Appears: Non-toxic, No Acute Distress Skin: Normal Color, Warm, Dry Head: Normacephalic Eye(s): bilateral: Normal Inspection Oral Mucosa: Moist Neck: Supple Cardiovascular: Rhythm Regular, No Murmur Respiratory: Normal Breath Sounds, No Accessory Muscle Use, No Rales, No Rhonchi , No Wheezing Gastrointestinal/Abdominal: Soft, No Tenderness Extremity: Normal ROM, No Pedal Edema, No Deformity Neurological/Psych: Oriented x3, Normal Speech ED Course And Treatment - Laboratory Results Result Diagrams: 11/15/17 07:35 ECG: Interpreted By Me, Viewed By Me ECG Rhythm: Sinus Rhythm ECG Interpretation: No Acute Changes Interpretation Of ECG: Normal axis. No acute ST/T wave changes. Rate From EC (bpm) O2 Sat by Pulse Oximetry: 100 (RA) Pulse Ox Interpretation: Normal Progress Note: Blood work, Phenobarbital, CXR, EKG ordered and reviewed. Pt was given Ativan IM, Dilantin IVPB, and IV fluids. Disposition - Disposition Referrals: Non [facility] Provider, [Primary Care Provider] - Forms: [employer] (Frisian) - Scribe Statement The provider has reviewed the documentation as recorded by the Scribe Channing Fajardo All medical record entries made by the Scribe were at my direction and personally dictated by me. I have reviewed the chart and agree that the record accurately reflects my personal performance of the history, physical exam, medical decision making, and the department course for this patient. I have also personally directed, reviewed, and agree with the discharge instructions and disposition.
[2017-11-15 07:53] LABS: BASO % 0.4 % (0.0-2.0); EOS # 0.1 K/uL (0.0-0.7); EOS % 2.1 % (0.0-4.0); HEMOGLOBIN 11.2 g/dL (12.0-18.0); LYMPH # 1.4 K/uL (1.0-4.3); LYMPH % 37.9 % (20.0-40.0); MEAN CORPUSCULAR HEMOGLOBIN 35.4 pg (27.0-31.0); MEAN CORPUSCULAR HGB CONC 34.5 g/dL (33.0-37.0); MONO # 0.5 K/uL (0.0-0.8); NEUT # 1.6 K/uL (1.8-7.0); NEUT % 45.6 % (50.0-75.0); NRBC % 0.2 % (0.0-2.0); RBC 3.18 Mil/uL (4.40-5.90); RED CELL DISTRIBUTION WIDTH 14.8 % (11.5-14.5); WHITE BLOOD COUNT 3.6 K/uL (4.8-10.8)
[2017-11-15 07:54] LABS: MEAN CELL VOLUME 102.5 fL (80.0-94.0)
[2017-11-15 07:59] LABS: ALBUMIN 3.4 g/dL (3.5-5.0); ALT/SGPT 31 U/L (21-72); AST/SGOT 209 U/L (17-59); BLOOD UREA NITROGEN 10 mg/dL (9-20); GFR AFRICAN-AMERICAN > 60; GFR NON-AFRICAN AMERICAN > 60
[2017-11-15 08:02] LABS: INR 1.3; PROTHROMBIN TIME 14.4 SECONDS (9.7-12.2)
[2017-11-15 08:10] LABS: ALB/GLOB RATIO 0.7 (1.0-2.1)
--- NOTE | 2017-11-15 08:11 | RAD ---
PROCEDURE: CHEST RADIOGRAPH, 1 VIEW. Portable study 07:30 HISTORY: CHEST PAIN COMPARISON: 08/25/2017 FINDINGS: LUNGS: Clear. PLEURA: No pneumothorax or pleural fluid seen. CARDIOVASCULAR: No radiographic findings to suggest acute or significant cardiovascular disease. OSSEOUS STRUCTURES: No significant abnormalities. VISUALIZED UPPER ABDOMEN: Normal. OTHER FINDINGS: None. IMPRESSION: No active disease. No acute/significant interval changes.
[2017-11-15 08:12] LABS: CK-MB 2.27 ng/mL (0.0-3.38)
[2017-11-15] MEDS: Phenytoin 1,000 MG in Sodium Chloride 0.9% 100 ML IVPB ONE (08:35)
[2017-11-15] MEDS ORDERED: Aspirin 325 mg EC Tablets PO STA (11:20)
[2017-11-15] MEDS ORDERED: Aspirin 325 mg EC Tablets PO ONE (11:42)
[2017-11-15] MEDS ORDERED: Sodium Chloride 0.9% 1,000 ML ONE (11:43)
[2017-11-15 12:22] LABS: BARBITURATES, UR NEGATIVE (NEGATIVE); BENZODIAZEPINES, UR NEGATIVE (NEGATIVE); OPIATES, UR NEGATIVE (NEGATIVE); PHENCYCLIDINE, UR NEGATIVE (NEGATIVE)
--- NOTE | 2017-11-15 13:51 | CP.PCM.HP ---
<Papo Seth - Last Filed: 11/15/17 19:06> History of Present Illness - History of Present Illness History of Present Illness: 57 year old male with a past medical history of seizures and hypertension who comes in today after experiencing chest pain and a seizure after being discharged from the emergency room shortly before. Of note, the patient has an extensive medical history for repeat admissions into the emergency department for alcohol intoxication. The patient denies biting his tongue and losing bowel and bladder incontinence. The patient also reports chest pain in the left side of his chest. He rates it as sharp in nature without radiation to any part of his body. The patient denies any abdominal pain, changes in vision, headaches, nausea, vomiting, fevers, chills, constipation ,diarrhea, or any other complaints. PMD: Dr. Huang Past medical history: Hypertension, seizures Medications: MAR reviewed Allergies: Denies Surgery: Removal of gallstones Social: Chronic alcohol abuser. States he only drinks occasionally one pint of Vodka. Jose L smoking. Denies illicit drug use. Lives with Sister Full code In case of emergency selected sister Cecilia :([phone]) as the medical decision maker. Present on Admission - Present on Admission Any Indicators Present on Admission: No Review of Systems - Constitutional Constitutional: absent: Daytime Sleepiness, Headache, Snoring, Other - EENT Eyes: absent: Blurred Vision, Discharge, Loss of Peripheral Vision, Sees Flashes , Loss of Vision Ears: absent: Ear Discharge, Dizziness Nose/Mouth/Throat: absent: Nasal Congestion, Nose Pain, Odynophagia, Facial Pain , Neck Pain - Cardiovascular Cardiovascular: Chest Pain. absent: Diaphoresis, Irregular Heart Rhythm, Leg Edema, Palpitations, Pedal Edema, Syncope - Respiratory Respiratory: absent: Hemoptysis, Pain on Inspiration, Change in Mucous Color - Gastrointestinal Gastrointestinal: absent: Change in Stool Character, Dyspepsia, Dysphagia, Heartburn, Melena, Nausea, Vomiting - Genitourinary Genitourinary: absent: Nocturia, Urinary Hesitance, Bladder Distension - Musculoskeletal Musculoskeletal: absent: Atrophy, Myalgias, Neck Pain, Stiffness - Integumentary Integumentary: absent: Rash, Striae, Swelling - Neurological Neurological: Vertigo. absent: Dizziness, Numbness, Focal Weakness, Tingling, Weakness - Psychiatric Psychiatric: absent: Anhedonia, Anxiety, Change in Appetite, Panic Attacks, Paranoia - Endocrine Endocrine: absent: Polydipsia, Polyphagia, Polyuria - Hematologic/Lymphatic Hematologic: absent: As Per HPI, Easy Bleeding, Easy Bruising Past Patient History - Infectious Disease Hx of Infectious Diseases: None - Past Medical History & Family History Past Medical History?: Yes - Past Social History Smoking Status: Never Smoked - CARDIAC Hx Hypertension: Yes - PULMONARY Hx Bronchitis: Yes - NEUROLOGICAL Hx Seizures: Yes - HEENT Hx HEENT Problems: No - RENAL Hx Chronic Kidney Disease: No - ENDOCRINE/METABOLIC Hx Endocrine Disorders: No - INTEGUMENTARY Hx Dermatological Problems: No - MUSCULOSKELETAL/RHEUMATOLOGICAL Hx Arthritis: Yes Hx Fractures: Yes (RIGHT ARM) Hx Rheumatoid Arthritis: Yes - GASTROINTESTINAL Hx Gall Bladder Disease: Yes (s/p cholecystectomy) Hx Gastritis: Yes - PSYCHIATRIC Hx Anxiety: Yes Hx Depression: Yes Hx Post Traumatic Stress Disorder: Yes Hx Substance Use: No - SURGICAL HISTORY Hx Cholecystectomy: Yes - ANESTHESIA Hx Anesthesia: Yes Hx Anesthesia Reactions: No Hx Malignant Hyperthermia: No Meds Allergies/Adverse Reactions: Allergies Allergy/AdvReac Type Severity Reaction Status Date / Time No Known Allergies Allergy Verified 11/15/17 06:58 Physical Exam - Head Exam Head Exam: ATRAUMATIC, NORMAL INSPECTION, NORMOCEPHALIC - Eye Exam Eye Exam: EOMI, Normal appearance, PERRL. absent: Nystagmus, Periorbital tenderness Pupil Exam: Irregular, NORMAL ACCOMODATION, PERRL. absent: Unequal - ENT Exam ENT Exam: Mucous Membranes Moist, Normal Oropharynx - Neck Exam Neck exam: Positive for: Normal Inspection. Negative for: Lymphadenopathy, Thyromegaly - Respiratory Exam Respiratory Exam: Clear to Auscultation Bilateral, NORMAL BREATHING PATTERN. absent: Chest Wall Tenderness, Prolonged Expiratory Phase, Respiratory Distress - Cardiovascular Exam Cardiovascular Exam: Tachycardia, REGULAR RHYTHM, +S1, +S2 - GI/Abdominal Exam GI & Abdominal Exam: Normal Bowel Sounds, Soft. absent: Hypoactive Bowel Sounds , Organomegaly, Tenderness - Extremities Exam Extremities exam: Positive for: full ROM, normal inspection. Negative for: joint swelling, pedal edema - Back Exam Back exam: NORMAL INSPECTION. absent: CVA tenderness (L), CVA tenderness (R), paraspinal tenderness - Neurological Exam Neurological exam: Alert, CN II-XII Intact, Oriented x3 - Psychiatric Exam Psychiatric exam: Normal Affect, Normal Mood - Skin Skin Exam: Dry, Intact, Normal Color Results - Vital Signs Recent Vital Signs: Last Vital Signs Temp 97.8 F 11/15/17 11:09 Pulse 103 H 11/15/17 11:09 Resp 16 11/15/17 11:09 BP 117/83 11/15/17 11:09 Pulse Ox 100 11/15/17 11:09 - Labs Result Diagrams: 11/15/17 07:35 11/15/17 07:35 Labs: Laboratory Results - last 24 hr 11/15/17 11/15/17 11/15/17 07:26 07:35 07:35 WBC 3.6 L RBC 3.18 L Hgb 11.2 L Hct 32.6 L MCV 102.5 H D MCH 35.4 H MCHC 34.5 RDW 14.8 H Plt Count 104 L MPV 9.0 Neut % (Auto) 45.6 L Lymph % (Auto) 37.9 Bulloch % (Auto) 14.0 H Eos % (Auto) 2.1 Baso % (Auto) 0.4 Neut # 1.6 L Lymph # 1.4 Bulloch # 0.5 Eos # 0.1 Baso # 0.0 Differential Comment PT 14.4 H INR 1.3 APTT 32 Sodium Potassium Chloride Carbon Dioxide Anion Gap BUN Creatinine Est GFR ( Amer) Est GFR (Non-Af Amer) POC Glucose (mg/dL) 89 Random Glucose Calcium Total Bilirubin AST ALT Alkaline Phosphatase Total Creatine Kinase CK-MB (Mass) Troponin I Total Protein Albumin Globulin Albumin/Globulin Ratio Urine Opiates Screen Urine Methadone Screen Ur Barbiturates Screen Phenytoin Ur Phencyclidine Scrn Ur Amphetamines Screen U Benzodiazepines Scrn U Oth Cocaine Metabols U Cannabinoids Screen 11/15/17 11/15/17 11/15/17 07:35 07:35 11:49 WBC RBC Hgb Hct MCV MCH MCHC RDW Plt Count MPV Neut % (Auto) Lymph % (Auto) Bulloch % (Auto) Eos % (Auto) Baso % (Auto) Neut # Lymph # Bulloch # Eos # Baso # Differential Comment PT INR APTT Sodium 143 Potassium 3.6 Chloride 106 Carbon Dioxide 21 L Anion Gap 19 BUN 10 Creatinine 0.8 Est GFR ( Amer) > 60 Est GFR (Non-Af Amer) > 60 POC Glucose (mg/dL) Random Glucose 101 Calcium 8.0 L Total Bilirubin 0.7 AST 209 H ALT 31 Alkaline Phosphatase 103 Total Creatine Kinase 256 H CK-MB (Mass) 2.27 Troponin I < 0.0120 Total Protein 8.4 H Albumin 3.4 L Globulin 4.9 H Albumin/Globulin Ratio 0.7 L Urine Opiates Screen Negative Urine Methadone Screen Negative Ur Barbiturates Screen Negative Phenytoin < 3.0 L Ur Phencyclidine Scrn Negative Ur Amphetamines Screen Negative U Benzodiazepines Scrn Negative U Oth Cocaine Metabols Negative U Cannabinoids Screen Negative Assessment & Plan - Assessment and Plan (Free Text) Assessment: 57 year old male with past medical history of seizures and hypertension who was admitted for chest pain and seizures. Plan: 1.Chest pain r/o ACS -EKG done in the E.D. ordered. Showed NSR @[address]-T changes. -Troponins ordered x3. Will f/u with results. -UDS. Will f/u with results. -TSH ordered. Will f/u with results. 2.Alcohol abuse -Patient reports drinking yesterday. -Patient has extensive drinking history. Drinks 1 pint of vodka in a day. -Ativan 1q4 PRN. -Seizure precautions -Banana bag. Will switch to PO Thiamine, Folic acid, Mulitvitamin after it completes. 3.History of seizures -?if seizure was witnessed outside of the emergency department. Was escorted back in by security. -Denies tongue biting or loss of bowel and bladder function. -Restarted home medications. -Seizure precautions. PPX -Pepcid <Sal Masters H - Last Filed: 11/16/17 07:23> Results - Vital Signs Recent Vital Signs: Last Vital Signs Temp 98.1 F 11/15/17 23:40 Pulse 84 11/16/17 03:30 Resp 20 11/15/17 23:40 BP 155/86 H 11/15/17 23:40 Pulse Ox 99 11/15/17 23:40 - Labs Result Diagrams: 11/15/17 07:35 11/15/17 07:35 Labs: Laboratory Results - last 24 hr 11/15/17 11/15/17 11/15/17 07:26 07:35 07:35 WBC 3.6 L RBC 3.18 L Hgb 11.2 L Hct 32.6 L MCV 102.5 H D MCH 35.4 H MCHC 34.5 RDW 14.8 H Plt Count 104 L MPV 9.0 Neut % (Auto) 45.6 L Lymph % (Auto) 37.9 Bulloch % (Auto) 14.0 H Eos % (Auto) 2.1 Baso % (Auto) 0.4 Neut # 1.6 L Lymph # 1.4 Bulloch # 0.5 Eos # 0.1 Baso # 0.0 Differential Comment PT 14.4 H INR 1.3 APTT 32 Sodium Potassium Chloride Carbon Dioxide Anion Gap BUN Creatinine Est GFR ( Amer) Est GFR (Non-Af Amer) POC Glucose (mg/dL) 89 Random Glucose Calcium Total Bilirubin AST ALT Alkaline Phosphatase Total Creatine Kinase CK-MB (Mass) Troponin I Total Protein Albumin Globulin Albumin/Globulin Ratio Urine Opiates Screen Urine Methadone Screen Ur Barbiturates Screen Phenytoin Ur Phencyclidine Scrn Ur Amphetamines Screen U Benzodiazepines Scrn U Oth Cocaine Metabols U Cannabinoids Screen 11/15/17 11/15/17 11/15/17 07:35 07:35 11:49 WBC RBC Hgb Hct MCV MCH MCHC RDW Plt Count MPV Neut % (Auto) Lymph % (Auto) Bulloch % (Auto) Eos % (Auto) Baso % (Auto) Neut # Lymph # Bulloch # Eos # Baso # Differential Comment PT INR APTT Sodium 143 Potassium 3.6 Chloride 106 Carbon Dioxide 21 L Anion Gap 19 BUN 10 Creatinine 0.8 Est GFR ( Amer) > 60 Est GFR (Non-Af Amer) > 60 POC Glucose (mg/dL) Random Glucose 101 Calcium 8.0 L Total Bilirubin 0.7 AST 209 H ALT 31 Alkaline Phosphatase 103 Total Creatine Kinase 256 H CK-MB (Mass) 2.27 Troponin I < 0.0120 Total Protein 8.4 H Albumin 3.4 L Globulin 4.9 H Albumin/Globulin Ratio 0.7 L Urine Opiates Screen Negative Urine Methadone Screen Negative Ur Barbiturates Screen Negative Phenytoin < 3.0 L Ur Phencyclidine Scrn Negative Ur Amphetamines Screen Negative U Benzodiazepines Scrn Negative U Oth Cocaine Metabols Negative U Cannabinoids Screen Negative 11/15/17 11/15/17 11/15/17 13:59 16:57 21:20 WBC RBC Hgb Hct MCV MCH MCHC RDW Plt Count MPV Neut % (Auto) Lymph % (Auto) Bulloch % (Auto) Eos % (Auto) Baso % (Auto) Neut # Lymph # Bulloch # Eos # Baso # Differential Comment PT INR APTT Sodium Potassium Chloride Carbon Dioxide Anion Gap BUN Creatinine Est GFR ( Amer) Est GFR (Non-Af Amer) POC Glucose (mg/dL) 89 108 Random Glucose Calcium Total Bilirubin AST ALT Alkaline Phosphatase Total Creatine Kinase CK-MB (Mass) Troponin I 0.0170 Total Protein Albumin Globulin Albumin/Globulin Ratio Urine Opiates Screen Urine Methadone Screen Ur Barbiturates Screen Phenytoin Ur Phencyclidine Scrn Ur Amphetamines Screen U Benzodiazepines Scrn U Oth Cocaine Metabols U Cannabinoids Screen 11/15/17 21:25 WBC RBC Hgb Hct MCV MCH MCHC RDW Plt Count MPV Neut % (Auto) Lymph % (Auto) Bulloch % (Auto) Eos % (Auto) Baso % (Auto) Neut # Lymph # Bulloch # Eos # Baso # Differential Comment PT INR APTT Sodium Potassium Chloride Carbon Dioxide Anion Gap BUN Creatinine Est GFR ( Amer) Est GFR (Non-Af Amer) POC Glucose (mg/dL) Random Glucose Calcium Total Bilirubin AST ALT Alkaline Phosphatase Total Creatine Kinase 253 H CK-MB (Mass) 1.70 Troponin I < 0.0120 Total Protein Albumin Globulin Albumin/Globulin Ratio Urine Opiates Screen Urine Methadone Screen Ur Barbiturates Screen Phenytoin Ur Phencyclidine Scrn Ur Amphetamines Screen U Benzodiazepines Scrn U Oth Cocaine Metabols U Cannabinoids Screen Attending/Attestation - Attestation I have personally seen and examined this patient.: Yes I have fully participated in the care of the patient.: Yes I have reviewed all pertinent clinical information: Yes Notes (Text): Medical attending: Patient was seen and examined by me. Agree with the above note by the resident. The patient comes to the hospital very frequently and does not get admitted however this time fell down and reported chest pain. And so we are going to check cardiac enzymes and repeat EKGs. He did not appear to be in any acute distress in the ER The patient has an extensive history of ETOH and frequent seizures, will monitor in case of withdrawl. Sal Masters
[2017-11-15] MEDS ORDERED: Phenytoin 100 mg/4 ml Oral Susp UD PO SCH (14:00)
[2017-11-15] MEDS ORDERED: Multivitamin (MVI) 10 ML, Thiamine 100 MG, Folic Acid 1 MG in Sodium Chloride 0.9% 1,00... IV ONE (15:15)
[2017-11-16] MEDS ORDERED: Enoxaparin 40 mg Syringe SC SCH (11:00)
[2017-11-16 15:56] VITALS: PULSE 103
[2017-11-16 16:09] VITALS: BP 138/84; RESP 20; TEMP 98.1; O2SAT 96
[2017-11-16 17:22] LABS: ALB/GLOB RATIO 0.7 (1.0-2.1); ALBUMIN 3.6 g/dL (3.5-5.0); ALT/SGPT 27 U/L (21-72); AST/SGOT 143 U/L (17-59); BLOOD UREA NITROGEN 9 mg/dL (9-20); CALCIUM 8.6 mg/dl (8.6-10.4); GFR AFRICAN-AMERICAN > 60; GFR NON-AFRICAN AMERICAN > 60
--- NOTE | 2017-11-16 17:30 | CP.PCM.DIS ---
<DorindaMigeln - Last Filed: 11/16/17 18:43> Provider - Provider Date of Admission: 11/15/17 11:24 Attending physician: Sal Masters DO Primary care physician: PMD: None Consults: PMD: None Time Spent in preparation of Discharge (in minutes): 45 Hospital Course - Lab Results Lab Results: Most Recent Lab Values WBC 3.6 K/uL (4.8-10.8) L 11/15/17 07:35 RBC 3.18 Mil/uL (4.40-5.90) L 11/15/17 07:35 Hgb 11.2 g/dL (12.0-18.0) L 11/15/17 07:35 Hct 32.6 % (35.0-51.0) L 11/15/17 07:35 MCV 102.5 fL (80.0-94.0) H D 11/15/17 07:35 MCH 35.4 pg (27.0-31.0) H 11/15/17 07:35 MCHC 34.5 g/dL (33.0-37.0) 11/15/17 07:35 RDW 14.8 % (11.5-14.5) H 11/15/17 07:35 Plt Count 104 K/uL (130-400) L 11/15/17 07:35 MPV 9.0 fL (7.2-11.7) 11/15/17 07:35 Neut % (Auto) 45.6 % (50.0-75.0) L 11/15/17 07:35 Lymph % (Auto) 37.9 % (20.0-40.0) 11/15/17 07:35 [place] % (Auto) 14.0 % (0.0-10.0) H 11/15/17 07:35 Eos % (Auto) 2.1 % (0.0-4.0) 11/15/17 07:35 Baso % (Auto) 0.4 % (0.0-2.0) 11/15/17 07:35 Neut # 1.6 K/uL (1.8-7.0) L 11/15/17 07:35 Lymph # 1.4 K/uL (1.0-4.3) 11/15/17 07:35 [place] # 0.5 K/uL (0.0-0.8) 11/15/17 07:35 Eos # 0.1 K/uL (0.0-0.7) 11/15/17 07:35 Baso # 0.0 K/uL (0.0-0.2) 11/15/17 07:35 Differential Comment 11/15/17 07:35 PT 14.4 SECONDS (9.7-12.2) H 11/15/17 07:35 INR 1.3 11/15/17 07:35 APTT 32 SECONDS (21-34) 11/15/17 07:35 Sodium 130 mmol/L (132-148) L 11/16/17 16:53 Potassium 3.6 mmol/L (3.6-5.2) 11/16/17 16:53 Chloride 96 mmol/L (98-107) L 11/16/17 16:53 Carbon Dioxide 24 mmol/L (22-30) 11/16/17 16:53 Anion Gap 14 (10-20) 11/16/17 16:53 BUN 9 mg/dL (9-20) 11/16/17 16:53 Creatinine 0.7 mg/dL (0.8-1.5) L 11/16/17 16:53 Est GFR ( Amer) > 60 11/16/17 16:53 Est GFR (Non-Af Amer) > 60 11/16/17 16:53 POC Glucose (mg/dL) 108 mg/dL (65-110) 11/15/17 21:20 Random Glucose 103 mg/dL (75-110) 11/16/17 16:53 Calcium 8.6 mg/dl (8.6-10.4) 11/16/17 16:53 Total Bilirubin 1.4 mg/dL (0.2-1.3) H 11/16/17 16:53 AST 143 U/L (17-59) H D 11/16/17 16:53 ALT 27 U/L (21-72) 11/16/17 16:53 Alkaline Phosphatase 78 U/L (38-126) 11/16/17 16:53 Total Creatine Kinase 253 U/L (55-170) H 11/15/17 21:25 CK-MB (Mass) 1.70 ng/mL (0.0-3.38) 11/15/17 21:25 Troponin I < 0.0120 ng/mL (0.00-0.120) 11/15/17 21:25 Total Protein 8.7 g/dL (6.3-8.3) H 11/16/17 16:53 Albumin 3.6 g/dL (3.5-5.0) 11/16/17 16:53 Globulin 5.2 gm/dL (2.2-3.9) H 11/16/17 16:53 Albumin/Globulin Ratio 0.7 (1.0-2.1) L 11/16/17 16:53 Urine Opiates Screen Negative (NEGATIVE) 11/15/17 11:49 Urine Methadone Screen Negative (NEGATIVE) 11/15/17 11:49 Ur Barbiturates Screen Negative (NEGATIVE) 11/15/17 11:49 Phenytoin < 3.0 ug/mL (10-20) L 11/15/17 07:35 Ur Phencyclidine Scrn Negative (NEGATIVE) 11/15/17 11:49 Ur Amphetamines Screen Negative (NEGATIVE) 11/15/17 11:49 Phenobarbital <5.0 mg/L (15.0-40.0) L 11/15/17 08:02 U Benzodiazepines Scrn Negative (NEGATIVE) 11/15/17 11:49 U Oth Cocaine Metabols Negative (NEGATIVE) 11/15/17 11:49 U Cannabinoids Screen Negative (NEGATIVE) 11/15/17 11:49 - Hospital Course Hospital Course: Discharge Summary PMD: Dr. Huang ? Consults: None PRINCIPAL DISCHARGE DIAGNOSES: Hypertension Seizures CC: chest pain HISTORY OF PRESENT ILLNESS: 57 year old male with a past medical history of seizures and hypertension who comes in today after experiencing chest pain and a seizure after being discharged from the emergency room shortly before. Of note, the patient has an extensive medical history for repeat admissions into the emergency department for alcohol intoxication. The patient denies biting his tongue and losing bowel and bladder incontinence. The patient also reports chest pain in the left side of his chest. He rates it as sharp in nature without radiation to any part of his body. The patient denies any abdominal pain, changes in vision, headaches, nausea, vomiting, fevers, chills, constipation ,diarrhea, or any other complaints. PMD: Dr. Huang? Past medical history: Hypertension, seizures Medications: MAR reviewed Allergies: Denies Surgery: Removal of gallstones Social: Chronic alcohol abuser. States he only drinks occasionally one pint of Vodka. Jose L smoking. Denies illicit drug use. Lives with Sister Full code In case of emergency selected sister Cecilia [phone]) as the medical decision maker. SUMMARY OF COURSE: Patient is a 57 year old male who was admitted to [facility] on 11/15[facility]17-11/16/17 for chest pain and ?seizure. While admitted blood was drawn. Patient was found to have three negative troponins and an EKG that was normal sinus rhythm. Patient was discharged with instructions to follow up in the [facility] in the basement of the hospital( Number was provided at bedside along with the address). Imaging: EKG: NSR @93bpm. No ST/T changes noted Chext xray: Negative for active disease. No medications upon discharge. Discharge Exam - Head Exam Head Exam: ATRAUMATIC, NORMAL INSPECTION, NORMOCEPHALIC - Eye Exam Eye Exam: EOMI, Normal appearance Pupil Exam: NORMAL ACCOMODATION, PERRL. absent: Irregular, Unequal - ENT Exam ENT Exam: Mucous Membranes Moist, Normal Oropharynx - Respiratory Exam Respiratory Exam: Clear to PA & Lateral, NORMAL BREATHING PATTERN, UNREMARKABLE. absent: Rales, Rhonchi - Cardiovascular Exam Cardiovascular Exam: REGULAR RHYTHM, +S1, +S2 - GI/Abdominal Exam GI & Abdominal Exam: Normal Bowel Sounds, Unremarkable. absent: Organomegaly - Extremities Exam Extremities exam: full ROM - Back Exam Back exam: NORMAL INSPECTION. absent: CVA tenderness (L), CVA tenderness (R), paraspinal tenderness - Neurological Exam Neurological exam: Alert, CN II-XII Intact, Oriented x3 - Psychiatric Exam Psychiatric exam: Normal Affect, Normal Mood - Skin Skin Exam: Dry, Intact, Normal Color Discharge Plan - Follow Up Plan Condition: GOOD Disposition: HOME/ ROUTINE Instructions: Chest Pain (DC), Alcohol Withdrawal (DC), Recurrent Seizures in Adults (DC) Referrals: Non [facility] Provider, [Non-Staff] - <Sal Masters - Last Filed: 11/17/17 07:46> Provider - Provider Date of Admission: 11/15/17 11:24 Attending physician: Peter H Masters, DO Hospital Course - Lab Results Lab Results: Most Recent Lab Values WBC 3.6 K/uL (4.8-10.8) L 11/15/17 07:35 RBC 3.18 Mil/uL (4.40-5.90) L 11/15/17 07:35 Hgb 11.2 g/dL (12.0-18.0) L 11/15/17 07:35 Hct 32.6 % (35.0-51.0) L 11/15/17 07:35 MCV 102.5 fL (80.0-94.0) H D 11/15/17 07:35 MCH 35.4 pg (27.0-31.0) H 11/15/17 07:35 MCHC 34.5 g/dL (33.0-37.0) 11/15/17 07:35 RDW 14.8 % (11.5-14.5) H 11/15/17 07:35 Plt Count 104 K/uL (130-400) L 11/15/17 07:35 MPV 9.0 fL (7.2-11.7) 11/15/17 07:35 Neut % (Auto) 45.6 % (50.0-75.0) L 11/15/17 07:35 Lymph % (Auto) 37.9 % (20.0-40.0) 11/15/17 07:35 [place] % (Auto) 14.0 % (0.0-10.0) H 11/15/17 07:35 Eos % (Auto) 2.1 % (0.0-4.0) 11/15/17 07:35 Baso % (Auto) 0.4 % (0.0-2.0) 11/15/17 07:35 Neut # 1.6 K/uL (1.8-7.0) L 11/15/17 07:35 Lymph # 1.4 K/uL (1.0-4.3) 11/15/17 07:35 [place] # 0.5 K/uL (0.0-0.8) 11/15/17 07:35 Eos # 0.1 K/uL (0.0-0.7) 11/15/17 07:35 Baso # 0.0 K/uL (0.0-0.2) 11/15/17 07:35 Differential Comment 11/15/17 07:35 PT 14.4 SECONDS (9.7-12.2) H 11/15/17 07:35 INR 1.3 11/15/17 07:35 APTT 32 SECONDS (21-34) 11/15/17 07:35 Sodium 130 mmol/L (132-148) L 11/16/17 16:53 Potassium 3.6 mmol/L (3.6-5.2) 11/16/17 16:53 Chloride 96 mmol/L (98-107) L 11/16/17 16:53 Carbon Dioxide 24 mmol/L (22-30) 11/16/17 16:53 Anion Gap 14 (10-20) 11/16/17 16:53 BUN 9 mg/dL (9-20) 11/16/17 16:53 Creatinine 0.7 mg/dL (0.8-1.5) L 11/16/17 16:53 Est GFR ( Amer) > 60 11/16/17 16:53 Est GFR (Non-Af Amer) > 60 11/16/17 16:53 POC Glucose (mg/dL) 108 mg/dL (65-110) 11/15/17 21:20 Random Glucose 103 mg/dL (75-110) 11/16/17 16:53 Calcium 8.6 mg/dl (8.6-10.4) 11/16/17 16:53 Total Bilirubin 1.4 mg/dL (0.2-1.3) H 11/16/17 16:53 AST 143 U/L (17-59) H D 11/16/17 16:53 ALT 27 U/L (21-72) 11/16/17 16:53 Alkaline Phosphatase 78 U/L (38-126) 11/16/17 16:53 Total Creatine Kinase 253 U/L (55-170) H 11/15/17 21:25 CK-MB (Mass) 1.70 ng/mL (0.0-3.38) 11/15/17 21:25 Troponin I < 0.0120 ng/mL (0.00-0.120) 11/15/17 21:25 Total Protein 8.7 g/dL (6.3-8.3) H 01/27/18 16:53 Albumin 3.6 g/dL (3.5-5.0) 11/16/17 16:53 Globulin 5.2 gm/dL (2.2-3.9) H 11/16/17 16:53 Albumin/Globulin Ratio 0.7 (1.0-2.1) L 11/16/17 16:53 Urine Opiates Screen Negative (NEGATIVE) 11/15/17 11:49 Urine Methadone Screen Negative (NEGATIVE) 11/15/17 11:49 Ur Barbiturates Screen Negative (NEGATIVE) 11/15/17 11:49 Phenytoin < 3.0 ug/mL (10-20) L 11/15/17 07:35 Ur Phencyclidine Scrn Negative (NEGATIVE) 11/15/17 11:49 Ur Amphetamines Screen Negative (NEGATIVE) 11/15/17 11:49 Phenobarbital <5.0 mg/L (15.0-40.0) L 11/15/17 08:02 U Benzodiazepines Scrn Negative (NEGATIVE) 11/15/17 11:49 U Oth Cocaine Metabols Negative (NEGATIVE) 11/15/17 11:49 U Cannabinoids Screen Negative (NEGATIVE) 11/15/17 11:49 Attending/Attestation - Attestation I have personally seen and examined this patient.: Yes I have fully participated in the care of the patient.: Yes I have reviewed all pertinent clinical information, including history, physical exam and plan: Yes Notes (Text): Medical attending: Patient was seen and examined by me, agrees the above note by medical records tech. As documented before, this is a patient with a history of alcoholism and seizures related to his alcohol that comes to the hospital almost every single day. He is usually in the emergency room for some period of time and is discharged from the ER only to return shortly thereafter. We've currently been over seen his chest pain, troponins have been negative, EKGs are stable. My concern was due to the patient's situation that he could've taken other substances such as cocaine, however this was not the case the cocaine was negative on the urine drug screen. So at this time we encouraged the patient to avoid alcohol, avoid polysubstance abuse. Thank you very much, Sal Masters
[2017-11-18 00:14] LABS: PHENYTOIN,FREE <0.5 mg/L (1.0-2.0)
== END 2017-11-16 18:55 | disposition home or self-care (01) ==
LOC: C.ER 06:44 → SUPCPDRO 06:44 → C.9E 11:24 → C.6T 15:46
PROVIDERS: ADMIT Hospitalist; ATTEND Hospitalist
DX: R07.9 Chest pain, unspecified (principal); E11.9 Type 2 diabetes mellitus without complications; F43.10 Post-traumatic stress disorder, unspecified; I10 Essential (primary) hypertension; I25.10 Atherosclerotic heart disease of native coronary artery without angina pectoris; M06.9 Rheumatoid arthritis, unspecified; F10.10 Alcohol abuse, uncomplicated; Z79.899 Other long term (current) drug therapy
CPT/HCPCS: 36415; 71045; 80053; 80184; 80185; 80186; 80324; 80345; 80346; 80349; 80353; 80358; 80361; 82550; 82553; 82948; 83992; 84484; 85025; 85610; 85730; 96361; 96365; 96366; 96372; 96375; 99285; G0378; J1165; J1650; J2060; J3411; J7040

== ENCOUNTER 2017-11-16 22:44 | Emergency (ER) | payer OTHER ==
[2017-11-16 22:44] VITALS: BMI 29.7
[2017-11-16] MEDS ORDERED: Bacitracin 500 Units/gm Oint Foilpak UD TOP STA (23:02)
--- NOTE | 2017-11-16 23:52 | C.PDOC ---
History Of Present Illness <Andrey Craig E - Last Filed: 11/17/17 00:24> <Valeriano Stuart - Last Filed: 11/17/17 06:27> 57 year old male presents to the ER with acute ETOH intoxication, requesting a place to spend the night. Denies complaints at this time. (Andrey Craig) - HPI History Per: Patient History/Exam Limitations: no limitations Onset/Duration Of Symptoms: Hrs Recent travel outside of the [place]: No <Andrey Craig - Last Filed: 11/17/17 00:24> <Valeriano Stuart - Last Filed: 11/17/17 06:27> - HPI Time Seen by Provider: 11/16/17 22:56 Chief Complaint (Nursing): Trauma Past Medical History Reviewed: Historical Data, Nursing Documentation, Vital Signs - Medical History PMH: Anxiety, Arthritis, Bronchitis, CAD, Depression, Diabetes (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, not aware), Fractures (RIGHT ARM), Gastritis, Gall Bladder Disease (s/p cholecystectomy), HTN, Post Traumatic Stress Disorder, Rheumatoid Arthritis, Seizures, Chronic Pain Surgical History: Cholecystectomy Family History: States: Unknown Family Hx - Social History Hx Tobacco Use: No Hx Alcohol Use: Yes Hx Substance Use: No - Immunization History Hx Tetanus Toxoid Vaccination: No Hx Influenza Vaccination: No Hx Pneumococcal Vaccination: No <RafaAndrey Briscoe - Last Filed: 11/17/17 00:24> Vital Signs: Last Vital Signs Temp 98 F 11/16/17 22:49 Pulse 114 H 11/16/17 22:49 Resp 20 11/16/17 22:49 BP 142/102 H 11/16/17 22:49 Pulse Ox 100 11/17/17 00:25 - [facility] Procedures ALCOHOL DETOXIFICATION (07/04/15) APPLICATION OF SPLINT (03/20/13) CLOSURE SKIN & SUBCUTANEOUS NEC (08/14/13) DETOXIFICATION SERVICES FOR SUBSTANCE ABUSE TREATMENT (03/22/16) ESOPHAGOGASTRODUODENOSCOPY [EGD] W/CLOSED BIOPSY (02/16/15) OTHER GROUP THERAPY (03/12/13) PHYSICAL THERAPY NEC (07/04/15) TETANUS TOXOID ADMINIST (01/19/14) Review Of Systems Constitutional: Negative for: Fever, Chills Gastrointestinal: Negative for: Nausea, Vomiting, Diarrhea Skin: Positive for: Other (Superficial abrasions to right hand) <Andrey Craig - Last Filed: 11/17/17 00:24> Physical Exam - Physical Exam Appears: Non-toxic, No Acute Distress, Other (ETOH on breath) Skin: Warm, Dry Head: Atraumatic, Normacephalic Eye(s): bilateral: Normal Inspection Oral Mucosa: Moist Chest: Symmetrical, No Tenderness Cardiovascular: Rhythm Regular Respiratory: Normal Breath Sounds, No Rales, No Rhonchi, No Wheezing Gastrointestinal/Abdominal: Soft, No Tenderness Extremity: Normal ROM (x4), Capillary Refill (<2 seconds), No Deformity, No Swelling, Other (2 superficial abrasions to dorsal right hand. No laceration, no bleeding.) Pulses: Left Radial: Normal, Right Radial: Normal Neurological/Psych: Oriented x3, Normal Speech, Normal Motor, Normal Sensation <Andrey Craig E - Last Filed: 11/17/17 00:24> ED Course And Treatment O2 Sat by Pulse Oximetry: 100 (Room air) Pulse Ox Interpretation: Normal Progress Note: Bacitracin applied. <Andrey Craig - Last Filed: 11/17/17 00:24> Disposition - Disposition Disposition Time: 01:00 <Andrey Craig - Last Filed: 11/17/17 00:24> Counseled Patient/Family Regarding: Diagnosis - Disposition Disposition Time: 06:00 - POA Present On Arrival: None <Valeriano Stuart - Last Filed: 11/17/17 06:27> - Disposition Referrals: [facility] [Outside] Condition: STABLE Instructions: Abuse of Alcohol (ED) Forms: [employer] (Greek) - Clinical Impression Clinical Impression: Alcohol abuse, Hand abrasion Critical Care Time - Scribe Statement The provider has reviewed the documentation as recorded by the Scribe <Andrey Craig - Last Filed: 11/17/17 00:24> <Valeriano Stuart - Last Filed: 11/17/17 06:27> - Scribe Statement Fabián Ramirez All medical record entries made by the Scribe were at my direction and personally dictated by me. I have reviewed the chart and agree that the record accurately reflects my personal performance of the history, physical exam, medical decision making, and the department course for this patient. I have also personally directed, reviewed, and agree with the discharge instructions and disposition. (Andrey Craig) Physician Patient Turnover Patient Signed Over To: Valeriano Stuart Handoff Comments: dispo in AM when sober <Andrey Craig - Last Filed: 11/17/17 00:24>
[2017-11-17 06:41] VITALS: TEMP 98.1
[2017-11-17 06:44] VITALS: BP 126/68; PULSE 90; RESP 20; O2SAT 97
== END 2017-11-17 05:55 | disposition home or self-care (01) ==
LOC: C.ER 22:44
DX: F10.129 Alcohol abuse with intoxication, unspecified (principal); S60.511A Abrasion of right hand, initial encounter; X58.XXXA Exposure to other specified factors, initial encounter; E11.9 Type 2 diabetes mellitus without complications; I25.10 Atherosclerotic heart disease of native coronary artery without angina pectoris

== ENCOUNTER 2017-11-17 20:04 | Emergency (ER) | payer OTHER ==
[2017-11-17 20:05] VITALS: BMI 29.7
[2017-11-17 20:48] VITALS: RESP 18
== END 2017-11-17 20:45 | disposition left against medical advice (07) ==
LOC: C.ER 20:04
DX: Z02.89 Encounter for other administrative examinations (principal); Z00.00 Encounter for general adult medical examination without abnormal findings

== ENCOUNTER 2017-11-18 01:51 | Emergency (ER) | payer OTHER ==
[2017-11-18 01:52] VITALS: BMI 29.7
[2017-11-18 02:14] VITALS: O2SAT 98
--- NOTE | 2017-11-18 05:00 | C.PDOC ---
History Of Present Illness Pt was BIBEMS due to public alcohol intoxication. Time Seen by Provider: 11/18/17 02:14 Chief Complaint (Nursing): Substance Abuse History Per: Patient, EMS History/Exam Limitations: intoxication Onset/Duration Of Symptoms: Unknown Current Symptoms Are (Timing): Still Present Suicide/Self Injury Attempted (Context): None Modifying Factor(s): Alcohol Severity: Severe Associated Symptoms: denies: Suicidal Thoughts, Suicidal Plan Additional History Per: Prior Records Past Medical History Reviewed: Historical Data, Nursing Documentation, Vital Signs Vital Signs: Last Vital Signs Temp 97.4 F L 11/18/17 02:09 Pulse 78 11/18/17 04:08 Resp 18 11/18/17 04:08 BP 123/84 11/18/17 04:08 Pulse Ox 98 11/18/17 05:00 - Medical History PMH: Anxiety, Arthritis, Bronchitis, CAD, Depression, 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), Fractures (RIGHT ARM), Gastritis, Gall Bladder Disease (s/p cholecystectomy), HTN, Post Traumatic Stress Disorder, Rheumatoid Arthritis, Seizures, Chronic Pain Other PMH: Alcohol abuse Surgical History: Cholecystectomy - [facility] Procedures ALCOHOL DETOXIFICATION (07/04/15) APPLICATION OF SPLINT (03/20/13) CLOSURE SKIN & SUBCUTANEOUS NEC (08/14/13) DETOXIFICATION SERVICES FOR SUBSTANCE ABUSE TREATMENT (03/22/16) ESOPHAGOGASTRODUODENOSCOPY [EGD] W/CLOSED BIOPSY (02/16/15) OTHER GROUP THERAPY (03/12/13) PHYSICAL THERAPY NEC (07/04/15) TETANUS TOXOID ADMINIST (01/19/14) Family History: States: Unknown Family Hx - Social History Hx Tobacco Use: No Hx Alcohol Use: Yes Hx Substance Use: No - Immunization History Hx Tetanus Toxoid Vaccination: No Hx Influenza Vaccination: No Hx Pneumococcal Vaccination: No Review Of Systems Review Of Systems: ROS cannot be obtained secondary to pt's inabilty to answer questions. Physical Exam - Physical Exam Appears: Non-toxic, No Acute Distress, Unkempt, Other (AOB, intoxicated) Skin: Normal Color, Warm, Dry Head: Atraumatic Eye(s): bilateral: PERRL Neck: Normal ROM, No Midline Cervical Tenderness, No Step Off Deformity, Supple Cardiovascular: Rhythm Regular Respiratory: Normal Breath Sounds, No Accessory Muscle Use Gastrointestinal/Abdominal: Soft Extremity: Normal ROM, No Deformity Neurological/Psych: Eyes Open With Command, Other (Moving all extremities) Gait: Unable To Assess ED Course And Treatment O2 Sat by Pulse Oximetry: 98 Pulse Ox Interpretation: Normal Progress Note: Pt is now clinically sober. AAOx3. Steady gait. Reassessment Condition: Improved Disposition Counseled Patient/Family Regarding: Diagnosis, Need For Followup - Disposition Referrals: [facility] at [facility] [Outside] Disposition: HOME/ ROUTINE Disposition Time: 05:55 Condition: IMPROVED Additional Instructions: Follow up with your doctor or in the clinic. Return to the ER if you develop worsening of symptoms or if you have any other concerns. Instructions: Abuse of Alcohol (ED) - Clinical Impression Clinical Impression: Alcoholism /alcohol abuse
[2017-11-18 05:57] VITALS: BP 110/69; PULSE 86; RESP 16; TEMP 97.5
== END 2017-11-18 06:00 | disposition home or self-care (01) ==
LOC: C.ER 01:51
DX: F10.20 Alcohol dependence, uncomplicated (principal); E11.9 Type 2 diabetes mellitus without complications; I25.10 Atherosclerotic heart disease of native coronary artery without angina pectoris

== ENCOUNTER 2017-11-18 21:29 | Emergency (ER) | payer OTHER ==
[2017-11-18 21:29] VITALS: BMI 29.7
[2017-11-18 21:50] VITALS: RESP 18
[2017-11-18] MEDS ORDERED: Sucralfate 1 gm/10 ml Oral Susp UD PO STA (22:28)
[2017-11-18] MEDS ORDERED: Sucralfate 1 gm/10 ml Oral Susp UD ONE (22:54)
--- NOTE | 2017-11-18 22:57 | C.PDOC ---
History Of Present Illness 57 year old male presents to the ER with acute ETOH intoxication, complaining of epigastric and substernal lower chest pain. Denies SOB, nausea, or vomiting. Chief Complaint (Nursing): Substance Abuse History Per: Patient History/Exam Limitations: no limitations Onset/Duration Of Symptoms: Hrs Current Symptoms Are (Timing): Still Present Suicide/Self Injury Attempted (Context): None Modifying Factor(s): Alcohol Associated Symptoms: denies: Depression, Suicidal Thoughts, Suicidal Plan Involuntary Hold By: None Recent travel outside of the [place]: No Past Medical History Reviewed: Historical Data, Nursing Documentation, Vital Signs Vital Signs: Last Vital Signs Temp 97.4 F L 11/19/17 04:46 Pulse 94 H 11/19/17 04:46 Resp 18 11/19/17 04:46 BP 115/73 11/19/17 04:46 Pulse Ox 98 11/19/17 04:58 - Medical History PMH: Anxiety, Arthritis, Bronchitis, CAD, Depression, 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), Fractures (RIGHT ARM), Gastritis, Gall Bladder Disease (s/p cholecystectomy), HTN, Post Traumatic Stress Disorder, Rheumatoid Arthritis, Seizures, Chronic Pain Surgical History: Cholecystectomy - [facility] Procedures ALCOHOL DETOXIFICATION (07/04/15) APPLICATION OF SPLINT (03/20/13) CLOSURE SKIN & SUBCUTANEOUS NEC (08/14/13) DETOXIFICATION SERVICES FOR SUBSTANCE ABUSE TREATMENT (03/22/16) ESOPHAGOGASTRODUODENOSCOPY [EGD] W/CLOSED BIOPSY (02/16/15) OTHER GROUP THERAPY (03/12/13) PHYSICAL THERAPY NEC (07/04/15) TETANUS TOXOID ADMINIST (01/19/14) Family History: States: Unknown Family Hx - Social History Hx Tobacco Use: No Hx Alcohol Use: Yes Hx Substance Use: No - Immunization History Hx Tetanus Toxoid Vaccination: No Hx Influenza Vaccination: No Hx Pneumococcal Vaccination: No Review Of Systems Constitutional: Negative for: Fever, Chills Cardiovascular: Positive for: Chest Pain (Lower substernal) Respiratory: Negative for: Shortness of Breath Gastrointestinal: Positive for: Abdominal Pain. Negative for: Nausea, Vomiting Physical Exam - Physical Exam Appears: Non-toxic, Other (ETOH on breath) Skin: Normal Color, Warm, Dry Head: Atraumatic, Normacephalic Eye(s): bilateral: Normal Inspection Oral Mucosa: Moist Chest: Symmetrical, Tenderness (Lower substernal) Cardiovascular: Rhythm Regular Respiratory: Normal Breath Sounds, No Rales, No Rhonchi, No Wheezing Gastrointestinal/Abdominal: Soft, Tenderness (Epigastric), No Guarding, No Rebound Neurological/Psych: Oriented x3, Normal Speech ED Course And Treatment - Laboratory Results Result Diagrams: 11/18/17 22:53 11/18/17 22:53 ECG: Interpreted By Me, Viewed By Me ECG Interpretation: Normal, No Acute Changes Interpretation Of ECG: NSR, normal tracings. Rate From EC O2 Sat by Pulse Oximetry: 98 (Room air) Pulse Ox Interpretation: Normal Interpretation Of Abnormal: Repeat EKG, no acute change, normal tracings, rate of 92/min. Progress Note: EKG and blood work ordered. Carafate and pepcid administered. Disposition - Disposition Referrals: [facility] [Outside] Disposition: HOME/ ROUTINE Disposition Time: 05:02 Condition: STABLE Prescriptions: Famotidine [Pepcid] 20 mg PO BID #20 tab Instructions: Abuse of Alcohol (ED), Gastritis (GEN) Forms: [employer] (Pashto) - POA Present On Arrival: None - Clinical Impression Clinical Impression: Gastritis, Acute alcohol intoxication - Scribe Statement The provider has reviewed the documentation as recorded by the Scribjosé miguel Ramirez All medical record entries made by the Scribe were at my direction and personally dictated by me. I have reviewed the chart and agree that the record accurately reflects my personal performance of the history, physical exam, medical decision making, and the department course for this patient. I have also personally directed, reviewed, and agree with the discharge instructions and disposition.
[2017-11-18 23:01] LABS: BASO % 0.8 % (0.0-2.0); EOS # 0.1 K/uL (0.0-0.7); EOS % 1.9 % (0.0-4.0); LYMPH # 1.3 K/uL (1.0-4.3); LYMPH % 21.9 % (20.0-40.0); MEAN CELL VOLUME 102.2 fL (80.0-94.0); MEAN CORPUSCULAR HEMOGLOBIN 34.8 pg (27.0-31.0); MEAN PLATELET VOLUME 9.2 fL (7.2-11.7); MONO # 1.3 K/uL (0.0-0.8); MONO % 22.2 % (0.0-10.0); NEUT # 3.1 K/uL (1.8-7.0); NEUT % 53.2 % (50.0-75.0); NRBC % 0.1 % (0.0-2.0); PLATELET COUNT 120 K/uL (130-400); RBC 3.44 Mil/uL (4.40-5.90); RED CELL DISTRIBUTION WIDTH 14.2 % (11.5-14.5)
[2017-11-18 23:03] LABS: WHITE BLOOD COUNT 5.9 K/uL (4.8-10.8)
[2017-11-18 23:12] LABS: ALB/GLOB RATIO 0.7 (1.0-2.1); ALBUMIN 3.8 g/dL (3.5-5.0); ALT/SGPT 29 U/L (21-72); AST/SGOT 145 U/L (17-59); BLOOD UREA NITROGEN 24 mg/dL (9-20); CALCIUM 8.8 mg/dl (8.6-10.4); GFR AFRICAN-AMERICAN > 60; GFR NON-AFRICAN AMERICAN > 60; LIPASE 69 U/L (23-300)
[2017-11-18 23:53] LABS: EOSINOPHIL 5 % (0-4); LYMPHOCYTE 20 % (20-40); MONOCYTE 23 % (0-10); NEUTROPHIL 52 % (50-75); TOTAL CELLS COUNTED 100
[2017-11-18 23:54] LABS: PLATELET ESTIMATE SLIGHTLY DECREASED (NORMAL)
[2017-11-19 04:47] VITALS: BP 115/73; PULSE 94; TEMP 97.4; O2SAT 98
--- NOTE | 2017-11-20 11:03 | CARD ---
APPROVED REPORT EKG Measurement Heart [id number] NM [id number] <Conclusion> Normal sinus rhythm Possible Left atrial enlargement Abnormal ECG
--- NOTE | 2017-11-22 04:20 | CARD ---
APPROVED REPORT EKG Measurement Heart [id number] MT [id number] <Conclusion> Normal sinus rhythm Minimal voltage criteria for LVH, may be normal variant Borderline ECG
== END 2017-11-19 05:13 | disposition home or self-care (01) ==
LOC: C.ER 21:29
DX: F10.129 Alcohol abuse with intoxication, unspecified (principal); K29.70 Gastritis, unspecified, without bleeding; E11.9 Type 2 diabetes mellitus without complications; I25.10 Atherosclerotic heart disease of native coronary artery without angina pectoris

== ENCOUNTER 2017-11-19 21:09 | Emergency (ER) | payer OTHER ==
[2017-11-19 21:09] VITALS: BMI 29.7
--- NOTE | 2017-11-19 21:43 | C.PDOC ---
History Of Present Illness The patient presents to the ED for evaluation of acute alcohol intoxication. Patient is familiar to the ED and has had many prior evaluations for similar complaints. Patient has no other complaints at this time. Time Seen by Provider: 11/19/17 21:42 History Per: Patient History/Exam Limitations: intoxication Onset/Duration Of Symptoms: Hrs Current Symptoms Are (Timing): Still Present Suicide/Self Injury Attempted (Context): None Modifying Factor(s): Alcohol Severity: None Pain Scale Rating Of: 0 Associated Symptoms: denies: Suicidal Thoughts, Suicidal Plan Involuntary Hold By: None Recent travel outside of the [place]: No Additional History Per: Patient Past Medical History Reviewed: Historical Data, Nursing Documentation, Vital Signs Vital Signs: Last Vital Signs Temp 97.8 F 11/20/17 03:43 Pulse 88 11/20/17 03:43 Resp 17 11/20/17 03:43 BP 131/81 11/20/17 03:43 Pulse Ox 97 11/20/17 03:43 - Medical History PMH: Anxiety, Arthritis, Bronchitis, CAD, Depression, Diabetes (Pt. did not disclose to advertising copy writer, not aware), Fractures (RIGHT ARM), Gastritis, Gall Bladder Disease (s/p cholecystectomy), HTN, Post Traumatic Stress Disorder, Rheumatoid Arthritis, Seizures, Chronic Pain Denies: Chronic Kidney Disease Surgical History: Cholecystectomy - [facility] Procedures ALCOHOL DETOXIFICATION (07/04/15) APPLICATION OF SPLINT (03/20/13) CLOSURE SKIN & SUBCUTANEOUS NEC (08/14/13) DETOXIFICATION SERVICES FOR SUBSTANCE ABUSE TREATMENT (03/22/16) ESOPHAGOGASTRODUODENOSCOPY [EGD] W/CLOSED BIOPSY (02/16/15) OTHER GROUP THERAPY (03/12/13) PHYSICAL THERAPY NEC (07/04/15) TETANUS TOXOID ADMINIST (01/19/14) Family History: States: Unknown Family Hx - Social History Hx Tobacco Use: No Hx Alcohol Use: Yes Hx Substance Use: No - Immunization History Hx Tetanus Toxoid Vaccination: No Hx Influenza Vaccination: No Hx Pneumococcal Vaccination: No Review Of Systems Constitutional: Negative for: Fever, Chills Cardiovascular: Negative for: Chest Pain Respiratory: Negative for: Cough, Shortness of Breath Gastrointestinal: Negative for: Nausea, Vomiting Skin: Negative for: Rash, Lesions, Jaundice, Bruising Neurological: Negative for: Weakness, Numbness Psych: Positive for: Other (EtOH intoxication ). Negative for: Anxiety, Depression, Suicidal ideation Physical Exam - Physical Exam Appears: No Acute Distress, Other (visibly intoxicated ) Skin: Warm, Dry Head: Normacephalic Eye(s): bilateral: Normal Inspection Oral Mucosa: Moist, Other (alcohol on breath ) Neck: Supple Chest: Symmetrical, No Deformity, No Tenderness Cardiovascular: Rhythm Regular, No Murmur Respiratory: No Rales, No Rhonchi, No Wheezing Extremity: Normal ROM, Capillary Refill (less than 2 seconds ) Neurological/Psych: Other (arousable to touch and verbal stimuli ) Gait: Unsteady ED Course And Treatment O2 Sat by Pulse Oximetry: 99 (on RA) Pulse Ox Interpretation: Normal Progress Note: 2:47 vitals stable, arousable Reevaluation Time: 06:02 Reassessment Condition: Improved Disposition Counseled Patient/Family Regarding: Studies Performed, Diagnosis, Need For Followup - Disposition Referrals: [facility] at [facility] [Outside] Disposition: HOME/ ROUTINE Disposition Time: 21:42 Condition: FAIR Instructions: Alcohol Intoxication (DC) - Clinical Impression Clinical Impression: Alcohol intoxication, Alcohol abuse, daily use - Scribe Statement The provider has reviewed the documentation as recorded by the Scribe (Kari Fajardo) Provider Attestation: All medical record entries made by the Scribe were at my direction and personally dictated by me. I have reviewed the chart and agree that the record accurately reflects my personal performance of the history, physical exam, medical decision making, and the department course for this patient. I have also personally directed, reviewed, and agree with the discharge instructions and disposition.
[2017-11-20 06:50] VITALS: BP 136/79; PULSE 83; RESP 18; TEMP 98.1; O2SAT 98
== END 2017-11-20 06:50 | disposition home or self-care (01) ==
LOC: C.ER 21:09
DX: F10.129 Alcohol abuse with intoxication, unspecified (principal); Y90.9 Presence of alcohol in blood, level not specified

== ENCOUNTER 2017-11-20 21:30 | Emergency (ER) | payer OTHER ==
[2017-11-20 21:31] VITALS: BMI 29.7
--- NOTE | 2017-11-20 21:59 | C.PDOC ---
History Of Present Illness Patient is a 57 y/o male, with a Hx of anxiety, depression, and EtOH abuse, who presents to the ED with a complaint of acute EtOH intoxication and a request for a place to stay. Patient has an extensive history for similar presentations to the ED. Patient has no physical complaints at this time. Time Seen by Provider: 11/20/17 21:57 Chief Complaint (Nursing): Substance Abuse History Per: Patient History/Exam Limitations: no limitations Onset/Duration Of Symptoms: Hrs Current Symptoms Are (Timing): Still Present Modifying Factor(s): Alcohol Severity: None Recent travel outside of the [place]: No Past Medical History Reviewed: Historical Data, Nursing Documentation, Vital Signs Vital Signs: Last Vital Signs Temp 98.7 F 11/21/17 02:31 Pulse 103 H 11/21/17 02:31 Resp 20 11/21/17 02:31 BP 105/67 11/21/17 02:31 Pulse Ox 97 11/21/17 02:31 - Medical History PMH: Anxiety, Arthritis, Bronchitis, CAD, Depression, Diabetes (Pt. did not disclose to mortgage underwriter, not aware), Fractures (RIGHT ARM), Gastritis, Gall Bladder Disease (s/p cholecystectomy), HTN, Post Traumatic Stress Disorder, Rheumatoid Arthritis, Seizures, Chronic Pain Denies: Chronic Kidney Disease Surgical History: Cholecystectomy - [facility] Procedures ALCOHOL DETOXIFICATION (07/04/15) APPLICATION OF SPLINT (03/20/13) CLOSURE SKIN & SUBCUTANEOUS NEC (08/14/13) DETOXIFICATION SERVICES FOR SUBSTANCE ABUSE TREATMENT (03/22/16) ESOPHAGOGASTRODUODENOSCOPY [EGD] W/CLOSED BIOPSY (02/16/15) OTHER GROUP THERAPY (03/12/13) PHYSICAL THERAPY NEC (07/04/15) TETANUS TOXOID ADMINIST (01/19/14) Family History: States: No Known Family Hx - Social History Hx Tobacco Use: No Hx Alcohol Use: Yes Hx Substance Use: No - Immunization History Hx Tetanus Toxoid Vaccination: No Hx Influenza Vaccination: No Hx Pneumococcal Vaccination: No Review Of Systems Constitutional: Negative for: Fever, Chills Cardiovascular: Negative for: Chest Pain Respiratory: Negative for: Shortness of Breath Neurological: Positive for: Other (EtOH intoxication) Physical Exam - Physical Exam Appears: No Acute Distress, Other (EtOH on breath) Skin: Warm, Dry Head: Normacephalic Oral Mucosa: Moist Chest: Symmetrical Cardiovascular: Rhythm Regular, No Murmur Respiratory: No Decreased Breath Sounds, No Rales, No Rhonchi, No Wheezing Gastrointestinal/Abdominal: Soft, No Tenderness Gait: Unsteady ED Course And Treatment O2 Sat by Pulse Oximetry: 96 (room air) Pulse Ox Interpretation: Normal Progress Note: Patient to be discharge upon sobriety. pt is clinically sober Reevaluation Time: 05:46 Reassessment Condition: Improved Disposition Counseled Patient/Family Regarding: Studies Performed, Diagnosis, Need For Followup - Disposition Referrals: [facility] at [facility] [Outside] Disposition: HOME/ ROUTINE Disposition Time: 21:58 Condition: FAIR Instructions: Alcohol Intoxication (DC) Forms: [employer] (Danish) - Clinical Impression Clinical Impression: Alcohol intoxication, Alcohol abuse, daily use - Scribe Statement The provider has reviewed the documentation as recorded by the Scribe Yamilet Madrigal All medical record entries made by the Scribe were at my direction and personally dictated by me. I have reviewed the chart and agree that the record accurately reflects my personal performance of the history, physical exam, medical decision making, and the department course for this patient. I have also personally directed, reviewed, and agree with the discharge instructions and disposition.
[2017-11-21 05:46] VITALS: O2SAT 96
[2017-11-21 05:53] VITALS: BP 119/73; PULSE 98; RESP 18; TEMP 98.5
== END 2017-11-21 05:53 | disposition home or self-care (01) ==
LOC: C.ER 21:30
DX: F10.129 Alcohol abuse with intoxication, unspecified (principal); E11.9 Type 2 diabetes mellitus without complications; I25.10 Atherosclerotic heart disease of native coronary artery without angina pectoris

== ENCOUNTER 2017-11-21 20:48 | Emergency (ER) | payer OTHER ==
[2017-11-21 20:48] VITALS: BMI 29.7
[2017-11-21 21:25] VITALS: RESP 20
--- NOTE | 2017-11-21 21:39 | C.PDOC ---
History Of Present Illness 57 year old male presents to the ER with acute ETOH intoxication, requesting a place to spend the night. Denies physical complaints at this time. Time Seen by Provider: 11/21/17 21:22 Chief Complaint (Nursing): Substance Abuse History Per: Patient History/Exam Limitations: no limitations Onset/Duration Of Symptoms: Hrs Current Symptoms Are (Timing): Still Present Suicide/Self Injury Attempted (Context): None Modifying Factor(s): Alcohol Associated Symptoms: denies: Depression, Suicidal Thoughts Involuntary Hold By: None Recent travel outside of the [place]: No Past Medical History Reviewed: Historical Data, Nursing Documentation, Vital Signs Vital Signs: Last Vital Signs Temp 98.3 F 11/21/17 23:08 Pulse 88 11/21/17 23:08 Resp 20 11/21/17 23:08 BP 133/81 11/21/17 23:08 Pulse Ox 98 11/21/17 23:08 - Medical History PMH: Anxiety, Arthritis, Bronchitis, CAD, Depression, Diabetes (Pt. 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, not aware), Fractures (RIGHT ARM), Gastritis, Gall Bladder Disease (s/p cholecystectomy), HTN, Post Traumatic Stress Disorder, Rheumatoid Arthritis, Seizures, Chronic Pain Surgical History: Cholecystectomy - [facility] Procedures ALCOHOL DETOXIFICATION (07/04/15) APPLICATION OF SPLINT (03/20/13) CLOSURE SKIN & SUBCUTANEOUS NEC (08/14/13) DETOXIFICATION SERVICES FOR SUBSTANCE ABUSE TREATMENT (03/22/16) ESOPHAGOGASTRODUODENOSCOPY [EGD] W/CLOSED BIOPSY (02/16/15) OTHER GROUP THERAPY (03/12/13) PHYSICAL THERAPY NEC (07/04/15) TETANUS TOXOID ADMINIST (01/19/14) Family History: States: Unknown Family Hx - Social History Hx Tobacco Use: No Hx Alcohol Use: Yes Hx Substance Use: No - Immunization History Hx Tetanus Toxoid Vaccination: No Hx Influenza Vaccination: No Hx Pneumococcal Vaccination: No Review Of Systems Except As Marked, All Systems Reviewed And Found Negative. Constitutional: Positive for: Other (ETOH intoxication) Physical Exam - Physical Exam Appears: Non-toxic, Other (ETOH on breath, No signs of acute injury) Skin: Normal Color, Warm, Dry Head: Atraumatic, Normacephalic Eye(s): bilateral: Normal Inspection Oral Mucosa: Moist Neck: Normal, Supple Chest: Symmetrical, No Tenderness Cardiovascular: Rhythm Regular Respiratory: Normal Breath Sounds, No Rales, No Rhonchi, No Wheezing Gastrointestinal/Abdominal: Soft, No Tenderness Extremity: No Deformity Neurological/Psych: Oriented x3, Normal Speech ED Course And Treatment O2 Sat by Pulse Oximetry: 99 (Room air) Pulse Ox Interpretation: Normal Disposition Counseled Patient/Family Regarding: Diagnosis, Need For Followup - Disposition Referrals: [facility] at [facility] [Outside] Disposition: HOME/ ROUTINE Disposition Time: 05:15 Condition: STABLE Instructions: Alcohol Intoxication (ED) Forms: [employer] (Citizen Of [place]) Print Language: VIETNAMESE - Clinical Impression Clinical Impression: Alcohol intoxication - Scribe Statement The provider has reviewed the documentation as recorded by the Scribe Fabián Ramirez All medical record entries made by the Scribe were at my direction and personally dictated by me. I have reviewed the chart and agree that the record accurately reflects my personal performance of the history, physical exam, medical decision making, and the department course for this patient. I have also personally directed, reviewed, and agree with the discharge instructions and disposition.
[2017-11-21 23:08] VITALS: TEMP 98.3
[2017-11-22 05:21] VITALS: O2SAT 99
[2017-11-22 05:33] VITALS: BP 141/86; PULSE 86
== END 2017-11-22 05:20 | disposition home or self-care (01) ==
LOC: C.ER 20:48
DX: F10.129 Alcohol abuse with intoxication, unspecified (principal); Y90.9 Presence of alcohol in blood, level not specified

== ENCOUNTER 2017-11-22 20:24 | Emergency (ER) | payer OTHER ==
[2017-11-22 20:24] VITALS: BMI 29.7
[2017-11-22 20:34] VITALS: RESP 18
--- NOTE | 2017-11-23 01:03 | C.PDOC ---
History Of Present Illness 57 year old male well known to the ED presents intoxicated looking for a place to sleep. Patient admits to drinking alcohol today, patient presets wit an unsteady gait. Patient denies SI/HI, hallucinations, fever, chills, CP, SOB, abdominal pain. Chief Complaint (Nursing): Substance Abuse History Per: Patient History/Exam Limitations: no limitations Onset/Duration Of Symptoms: Hrs Current Symptoms Are (Timing): Still Present Suicide/Self Injury Attempted (Context): None Modifying Factor(s): Alcohol Associated Symptoms: denies: Depression, Suicidal Thoughts, Suicidal Plan Involuntary Hold By: None Additional History Per: Patient Past Medical History Reviewed: Historical Data, Nursing Documentation, Vital Signs Vital Signs: Last Vital Signs Temp 97.9 F 11/23/17 03:45 Pulse 98 H 11/23/17 03:45 Resp 18 11/23/17 03:45 BP 145/83 11/23/17 03:45 Pulse Ox 100 11/23/17 04:23 - Medical History PMH: Anxiety, Arthritis, Bronchitis, CAD, Depression, Diabetes (Pt. did not disclose to software writer, not aware), Fractures (RIGHT ARM), Gastritis, Gall Bladder Disease (s/p cholecystectomy), HTN, Post Traumatic Stress Disorder, Rheumatoid Arthritis, Seizures, Chronic Pain Denies: Chronic Kidney Disease Surgical History: Cholecystectomy - [facility] Procedures ALCOHOL DETOXIFICATION (07/04/15) APPLICATION OF SPLINT (03/20/13) CLOSURE SKIN & SUBCUTANEOUS NEC (08/14/13) DETOXIFICATION SERVICES FOR SUBSTANCE ABUSE TREATMENT (03/22/16) ESOPHAGOGASTRODUODENOSCOPY [EGD] W/CLOSED BIOPSY (02/16/15) OTHER GROUP THERAPY (03/12/13) PHYSICAL THERAPY NEC (07/04/15) TETANUS TOXOID ADMINIST (01/19/14) Family History: States: Unknown Family Hx - Social History Hx Tobacco Use: No Hx Alcohol Use: Yes Hx Substance Use: No - Immunization History Hx Tetanus Toxoid Vaccination: No Hx Influenza Vaccination: No Hx Pneumococcal Vaccination: No Review Of Systems Constitutional: Negative for: Fever, Chills Cardiovascular: Negative for: Chest Pain, Palpitations Respiratory: Negative for: Cough, Shortness of Breath Gastrointestinal: Negative for: Nausea, Vomiting, Abdominal Pain Musculoskeletal: Negative for: Back Pain Skin: Negative for: Rash Neurological: Negative for: Weakness, Numbness, Headache Psych: Negative for: Depression, Suicidal ideation Physical Exam - Physical Exam Appears: Non-toxic, Unkempt Skin: Normal Color, Warm, Dry Head: Atraumatic, Normacephalic Eye(s): bilateral: Normal Inspection Nose: No Discharge, No Deformity Oral Mucosa: Moist Neck: Normal ROM, Supple Chest: Symmetrical Cardiovascular: Rhythm Regular, No Murmur Respiratory: Normal Breath Sounds, No Rales, No Rhonchi, No Wheezing Gastrointestinal/Abdominal: Soft, No Tenderness, No Guarding, No Rebound Extremity: Normal ROM, No Deformity, No Swelling Neurological/Psych: Oriented x3 ED Course And Treatment O2 Sat by Pulse Oximetry: 100 (On RA) Pulse Ox Interpretation: Normal Medical Decision Making Medical Decision Making: Impression : alcohol abuse Disposition Counseled Patient/Family Regarding: Diagnosis - Disposition Referrals: at [facility] [Outside] Disposition: HOME/ ROUTINE Disposition Time: 05:30 Condition: STABLE Instructions: Abuse of Alcohol (ED) Forms: [employer] (Hungarian) - POA Present On Arrival: None - Clinical Impression Clinical Impression: Alcohol abuse with intoxication - Scribe Statement The provider has reviewed the documentation as recorded by the Scribe Woo Brown All medical record entries made by the Scribe were at my direction and personally dictated by me. I have reviewed the chart and agree that the record accurately reflects my personal performance of the history, physical exam, medical decision making, and the department course for this patient. I have also personally directed, reviewed, and agree with the discharge instructions and disposition.
[2017-11-23 03:46] VITALS: BP 145/83; PULSE 98; TEMP 97.9
[2017-11-23 04:24] VITALS: O2SAT 100
== END 2017-11-23 05:45 | disposition home or self-care (01) ==
LOC: C.ER 20:24
DX: F10.129 Alcohol abuse with intoxication, unspecified (principal); Y90.9 Presence of alcohol in blood, level not specified

== ENCOUNTER 2017-11-23 21:13 | Emergency (ER) | payer OTHER ==
[2017-11-23 21:14] VITALS: BMI 29.7
--- NOTE | 2017-11-24 00:51 | C.PDOC ---
History Of Present Illness 57 y/o male presents to ED stating he wants to stay the night. ETOH on breath. Pt admits to drinking tonight. Denies any physical complaints. Chief Complaint (Nursing): Substance Abuse History Per: Patient History/Exam Limitations: no limitations Onset/Duration Of Symptoms: Hrs Current Symptoms Are (Timing): Still Present Suicide/Self Injury Attempted (Context): None Modifying Factor(s): Alcohol Associated Symptoms: denies: Anger, Suicidal Thoughts, Suicidal Plan Involuntary Hold By: None Recent travel outside of the [place]: No Past Medical History Reviewed: Historical Data, Nursing Documentation, Vital Signs Vital Signs: Last Vital Signs Temp 98.6 F 11/24/17 05:21 Pulse 123 H 11/24/17 05:21 Resp 20 11/24/17 05:21 BP 150/102 H 11/24/17 05:21 Pulse Ox 94 L 11/24/17 05:21 - Medical History PMH: Anxiety, Arthritis, Bronchitis, CAD, Depression, Diabetes (Pt. did not disclose to functional tester typewriters, not aware), Fractures (RIGHT ARM), Gastritis, Gall Bladder Disease (s/p cholecystectomy), HTN, Post Traumatic Stress Disorder, Rheumatoid Arthritis, Seizures, Chronic Pain Surgical History: Cholecystectomy - [facility] Procedures ALCOHOL DETOXIFICATION (07/04/15) APPLICATION OF SPLINT (03/20/13) CLOSURE SKIN & SUBCUTANEOUS NEC (08/14/13) DETOXIFICATION SERVICES FOR SUBSTANCE ABUSE TREATMENT (03/22/16) ESOPHAGOGASTRODUODENOSCOPY [EGD] W/CLOSED BIOPSY (02/16/15) OTHER GROUP THERAPY (03/12/13) PHYSICAL THERAPY NEC (07/04/15) TETANUS TOXOID ADMINIST (01/19/14) Family History: States: Unknown Family Hx - Social History Hx Tobacco Use: No Hx Alcohol Use: Yes Hx Substance Use: No - Immunization History Hx Tetanus Toxoid Vaccination: No Hx Influenza Vaccination: No Hx Pneumococcal Vaccination: No Review Of Systems Constitutional: Negative for: Fever, Chills Cardiovascular: Negative for: Chest Pain, Palpitations Respiratory: Negative for: Cough, Shortness of Breath Skin: Negative for: Rash Neurological: Negative for: Weakness, Numbness Psych: Negative for: Suicidal ideation Physical Exam - Physical Exam Appears: Well, Non-toxic, No Acute Distress, Other (ETOH on breath) Skin: Normal Color, Warm, Dry Head: Atraumatic, Normacephalic Eye(s): bilateral: Normal Inspection Oral Mucosa: Moist Neck: Supple Chest: Symmetrical, No Tenderness Cardiovascular: Rhythm Regular Respiratory: Normal Breath Sounds, No Decreased Breath Sounds, No Rales, No Rhonchi, No Wheezing Gastrointestinal/Abdominal: Soft, No Tenderness, No Distention Extremity: Normal ROM, No Tenderness, No Pedal Edema Neurological/Psych: Oriented x3, Normal Speech, Normal Cognition ED Course And Treatment O2 Sat by Pulse Oximetry: 96 (RA) Pulse Ox Interpretation: Normal Disposition - Disposition Referrals: [facility] at [facility] [Outside] Disposition: HOME/ ROUTINE Disposition Time: 05:33 Condition: FAIR Instructions: Alcohol Dependence (ED) Forms: [employer] (Spanish) Print Language: SRI LANKAN - Clinical Impression Clinical Impression: Alcohol intoxication - Scribe Statement The provider has reviewed the documentation as recorded by the Scribjosé miguel Rosales All medical record entries made by the Scribe were at my direction and personally dictated by me. I have reviewed the chart and agree that the record accurately reflects my personal performance of the history, physical exam, medical decision making, and the department course for this patient. I have also personally directed, reviewed, and agree with the discharge instructions and disposition.
[2017-11-24 05:22] VITALS: BP 150/102; PULSE 123; RESP 20; TEMP 98.6
[2017-11-24 05:33] VITALS: O2SAT 96
== END 2017-11-24 05:31 | disposition home or self-care (01) ==
LOC: C.ER 21:13
DX: F10.129 Alcohol abuse with intoxication, unspecified (principal); Y90.9 Presence of alcohol in blood, level not specified

== ENCOUNTER 2017-11-24 19:13 | Emergency (ER) | payer OTHER ==
[2017-11-24 19:14] VITALS: BMI 29.7
--- NOTE | 2017-11-24 19:20 | C.PDOC ---
History Of Present Illness Patient is a 57 y/o male, with a Hx of anxiety, depression, and EtOH abuse, who presents to the ED with a complaint of acute EtOH intoxication and a request for a place to stay. Patient has an extensive history for similar presentations to the ED. Patient has no physical complaints at this time. Time Seen by Provider: 11/24/17 19:18 History Per: Patient Current Symptoms Are (Timing): Still Present Modifying Factor(s): Alcohol Past Medical History Reviewed: Historical Data, Nursing Documentation, Vital Signs Vital Signs: Last Vital Signs Temp 99 F 11/25/17 05:30 Pulse 86 11/25/17 05:30 Resp 18 11/25/17 05:30 BP 156/86 H 11/25/17 05:30 Pulse Ox 98 11/25/17 05:30 - Medical History PMH: Anxiety, Arthritis, Bronchitis, CAD, Depression, Diabetes (Pt. did not disclose to rewriter, not aware), Fractures (RIGHT ARM), Gastritis, Gall Bladder Disease (s/p cholecystectomy), HTN, Post Traumatic Stress Disorder, Rheumatoid Arthritis, Seizures, Chronic Pain Denies: Chronic Kidney Disease Surgical History: Cholecystectomy - [facility] Procedures ALCOHOL DETOXIFICATION (07/04/15) APPLICATION OF SPLINT (03/20/13) CLOSURE SKIN & SUBCUTANEOUS NEC (08/14/13) DETOXIFICATION SERVICES FOR SUBSTANCE ABUSE TREATMENT (03/22/16) ESOPHAGOGASTRODUODENOSCOPY [EGD] W/CLOSED BIOPSY (02/16/15) OTHER GROUP THERAPY (03/12/13) PHYSICAL THERAPY NEC (07/04/15) TETANUS TOXOID ADMINIST (01/19/14) Family History: States: Unknown Family Hx - Social History Hx Tobacco Use: No Hx Alcohol Use: Yes Hx Substance Use: No - Immunization History Hx Tetanus Toxoid Vaccination: No Hx Influenza Vaccination: No Hx Pneumococcal Vaccination: No Review Of Systems Constitutional: Negative for: Fever Cardiovascular: Negative for: Chest Pain Respiratory: Negative for: Shortness of Breath Gastrointestinal: Negative for: Vomiting Neurological: Negative for: Weakness, Numbness Psych: Negative for: Depression, Psychosis, Suicidal ideation, Withdrawal Physical Exam - Physical Exam Appears: Non-toxic, No Acute Distress, Other (Visibly intoxicated) Skin: Warm, Dry, No Rash, No Jaundice, No Ecchymosis Head: Atraumatic, Normacephalic Neck: Normal ROM Chest: Symmetrical Cardiovascular: Rhythm Regular, No Murmur Respiratory: Normal Breath Sounds, No Accessory Muscle Use, Other (alcohol on breath) Extremity: Normal ROM, Capillary Refill (<2 seconds) Gait: Unsteady (secondary to intoxication) ED Course And Treatment O2 Sat by Pulse Oximetry: 98 Pulse Ox Interpretation: Normal Reevaluation Time: 05:32 Reassessment Condition: Improved Disposition Counseled Patient/Family Regarding: Studies Performed, Diagnosis - Disposition Referrals: [facility] at [facility] [Outside] [facility] [Outside] Disposition: HOME/ ROUTINE Disposition Time: 19:18 Condition: FAIR Instructions: Alcohol Intoxication (DC) Forms: [employer] (Maltese) - Clinical Impression Clinical Impression: Alcohol intoxication, Alcohol abuse, daily use - Scribe Statement The provider has reviewed the documentation as recorded by the Scribe (Florinda Valentino) All medical record entries made by the Scribe were at my direction and personally dictated by me. I have reviewed the chart and agree that the record accurately reflects my personal performance of the history, physical exam, medical decision making, and the department course for this patient. I have also personally directed, reviewed, and agree with the discharge instructions and disposition.
[2017-11-25 02:48] VITALS: O2SAT 98
[2017-11-25 05:32] VITALS: BP 156/86; PULSE 86; RESP 18; TEMP 99
== END 2017-11-25 05:32 | disposition home or self-care (01) ==
LOC: C.ER 19:13
DX: F10.129 Alcohol abuse with intoxication, unspecified (principal); Y90.9 Presence of alcohol in blood, level not specified

== ENCOUNTER 2017-11-25 22:40 | Emergency (ER) | payer OTHER ==
[2017-11-25 22:41] VITALS: BMI 29.7
[2017-11-25 23:34] VITALS: O2SAT 100
--- NOTE | 2017-11-26 02:17 | C.PDOC ---
History Of Present Illness 57 year old male presents to the ER with acute ETOH intoxication, requesting a place to spend the night. Denies physical complaints at this time. Chief Complaint (Nursing): Medical Clearance History Per: Patient History/Exam Limitations: no limitations Onset/Duration Of Symptoms: Hrs Current Symptoms Are (Timing): Still Present Suicide/Self Injury Attempted (Context): None Modifying Factor(s): Alcohol Associated Symptoms: denies: Depression, Suicidal Thoughts, Suicidal Plan Involuntary Hold By: None Recent travel outside of the [place]: No Past Medical History Reviewed: Historical Data, Nursing Documentation, Vital Signs Vital Signs: Last Vital Signs Temp 98.3 F 11/26/17 02:50 Pulse 99 H 11/26/17 02:50 Resp 20 11/26/17 02:50 BP 106/93 H 11/26/17 02:50 Pulse Ox 100 11/26/17 02:50 - Medical History PMH: Anxiety, Arthritis, Bronchitis, CAD, Depression, Diabetes (Pt. did not disclose to automotive service writer, not aware), Fractures (RIGHT ARM), Gastritis, Gall Bladder Disease (s/p cholecystectomy), HTN, Post Traumatic Stress Disorder, Rheumatoid Arthritis, Seizures, Chronic Pain Surgical History: Cholecystectomy - [facility] Procedures ALCOHOL DETOXIFICATION (07/04/15) APPLICATION OF SPLINT (03/20/13) CLOSURE SKIN & SUBCUTANEOUS NEC (08/14/13) DETOXIFICATION SERVICES FOR SUBSTANCE ABUSE TREATMENT (03/22/16) ESOPHAGOGASTRODUODENOSCOPY [EGD] W/CLOSED BIOPSY (02/16/15) OTHER GROUP THERAPY (03/12/13) PHYSICAL THERAPY NEC (07/04/15) TETANUS TOXOID ADMINIST (01/19/14) Family History: States: Unknown Family Hx - Social History Hx Tobacco Use: No Hx Alcohol Use: Yes Hx Substance Use: No - Immunization History Hx Tetanus Toxoid Vaccination: No Hx Influenza Vaccination: No Hx Pneumococcal Vaccination: No Review Of Systems Constitutional: Negative for: Fever, Chills Gastrointestinal: Negative for: Nausea, Vomiting, Diarrhea Physical Exam - Physical Exam Appears: Non-toxic, No Acute Distress, Other (ETOH on breath, no sign of injury) Skin: Normal Color, Warm, Dry Head: Atraumatic, Normacephalic Eye(s): bilateral: Normal Inspection Oral Mucosa: Moist Chest: Symmetrical, No Tenderness Cardiovascular: Rhythm Regular Respiratory: Normal Breath Sounds, No Rales, No Rhonchi, No Wheezing Gastrointestinal/Abdominal: Soft, No Tenderness Neurological/Psych: Oriented x3, Normal Speech ED Course And Treatment O2 Sat by Pulse Oximetry: 100 (Room air) Pulse Ox Interpretation: Normal Disposition - Disposition Referrals: Fabián Huang MD [Primary Care Provider] - [facility] [Outside] Disposition: HOME/ ROUTINE Disposition Time: 05:46 Condition: STABLE Forms: [facility] (Wallisian) - POA Present On Arrival: None - Clinical Impression Clinical Impression: Alcoholism /alcohol abuse, Intoxication - Scribe Statement The provider has reviewed the documentation as recorded by the Scribe Fabián Ramirez All medical record entries made by the Scribe were at my direction and personally dictated by me. I have reviewed the chart and agree that the record accurately reflects my personal performance of the history, physical exam, medical decision making, and the department course for this patient. I have also personally directed, reviewed, and agree with the discharge instructions and disposition.
[2017-11-26 02:51] VITALS: BP 106/93; PULSE 99; TEMP 98.3
[2017-11-26 05:56] VITALS: RESP 18
== END 2017-11-26 05:51 | disposition home or self-care (01) ==
LOC: SUPCPDRO 22:40 → C.ER 22:40
DX: F10.229 Alcohol dependence with intoxication, unspecified (principal); Y90.9 Presence of alcohol in blood, level not specified

== ENCOUNTER 2017-11-26 20:34 | Emergency (ER) | payer OTHER ==
[2017-11-26 20:35] VITALS: BMI 29.7
--- NOTE | 2017-11-27 00:29 | C.PDOC ---
History Of Present Illness Patient presents to the ER with acute ETOH intoxication, requesting a place to spend the night. Denies any physical complaints at this time. Time Seen by Provider: 11/27/17 00:27 Chief Complaint (Nursing): Substance Abuse History Per: Patient History/Exam Limitations: no limitations Onset/Duration Of Symptoms: Hrs Current Symptoms Are (Timing): Still Present Suicide/Self Injury Attempted (Context): None Modifying Factor(s): Alcohol Severity: None Pain Scale Rating Of: 0 Associated Symptoms: denies: Depression, Suicidal Thoughts, Suicidal Plan Involuntary Hold By: None Recent travel outside of the [place]: No Past Medical History Reviewed: Historical Data, Nursing Documentation, Vital Signs Vital Signs: Last Vital Signs Temp 97.6 F 11/27/17 03:36 Pulse 94 H 11/27/17 03:36 Resp 18 11/27/17 03:36 BP 112/71 11/27/17 03:36 Pulse Ox 98 11/27/17 03:36 - Medical History PMH: Anxiety, Arthritis, Bronchitis, CAD, Depression, Diabetes (Pt. 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 not disclose to press writer, not aware), Fractures (RIGHT ARM), Gastritis, Gall Bladder Disease (s/p cholecystectomy), HTN, Post Traumatic Stress Disorder, Rheumatoid Arthritis, Seizures, Chronic Pain Surgical History: Cholecystectomy - [facility] Procedures ALCOHOL DETOXIFICATION (07/04/15) APPLICATION OF SPLINT (03/20/13) CLOSURE SKIN & SUBCUTANEOUS NEC (08/14/13) DETOXIFICATION SERVICES FOR SUBSTANCE ABUSE TREATMENT (03/22/16) ESOPHAGOGASTRODUODENOSCOPY [EGD] W/CLOSED BIOPSY (02/16/15) OTHER GROUP THERAPY (03/12/13) PHYSICAL THERAPY NEC (07/04/15) TETANUS TOXOID ADMINIST (01/19/14) Family History: States: No Known Family Hx - Social History Hx Tobacco Use: No Hx Alcohol Use: Yes Hx Substance Use: No - Immunization History Hx Tetanus Toxoid Vaccination: No Hx Influenza Vaccination: No Hx Pneumococcal Vaccination: No Review Of Systems Constitutional: Negative for: Fever, Chills Gastrointestinal: Negative for: Nausea, Vomiting, Diarrhea Physical Exam - Physical Exam Appears: Non-toxic, No Acute Distress, Other (ETOH on breath, no sign of injury) Skin: Warm, Dry Head: Normacephalic Oral Mucosa: Moist Chest: Symmetrical, No Tenderness Cardiovascular: Rhythm Regular Respiratory: No Rales, No Rhonchi, No Wheezing Gastrointestinal/Abdominal: Soft, No Tenderness Neurological/Psych: Oriented x3 ED Course And Treatment O2 Sat by Pulse Oximetry: 96 Pulse Ox Interpretation: Normal Reevaluation Time: 06:03 Reassessment Condition: Improved Disposition Counseled Patient/Family Regarding: Studies Performed, Diagnosis, Need For Followup - Disposition Referrals: [facility] at [facility] [Outside] Disposition: HOME/ ROUTINE Disposition Time: 00:28 Condition: FAIR Instructions: Alcohol Intoxication (DC) Forms: [employer] (Romansh) - Clinical Impression Clinical Impression: Alcohol intoxication, Alcoholic intoxication - Scribe Statement The provider has reviewed the documentation as recorded by the Scribe Fabián Ramirez All medical record entries made by the Scribe were at my direction and personally dictated by me. I have reviewed the chart and agree that the record accurately reflects my personal performance of the history, physical exam, medical decision making, and the department course for this patient. I have also personally directed, reviewed, and agree with the discharge instructions and disposition.
[2017-11-27 03:40] VITALS: RESP 18
[2017-11-27 06:03] VITALS: O2SAT 96
[2017-11-27 06:19] VITALS: BP 129/75; PULSE 80; TEMP 97.8
== END 2017-11-27 06:40 | disposition home or self-care (01) ==
LOC: C.ER 20:34
DX: F10.129 Alcohol abuse with intoxication, unspecified (principal); Y90.9 Presence of alcohol in blood, level not specified

== ENCOUNTER 2017-11-27 20:51 | Emergency (ER) | payer OTHER ==
[2017-11-27 20:51] VITALS: BMI 29.7
[2017-11-27 21:47] VITALS: O2SAT 96
--- NOTE | 2017-11-27 23:18 | C.PDOC ---
History Of Present Illness Wally Pina is a 57 year old male presenting to the ED requesting somewhere to sleep. Patient is well known to the ED for similar visits. Denies suicidal/ homicidal ideation. Offers no physical complaints at this time. Time Seen by Provider: 11/27/17 23:15 Chief Complaint (Nursing): Substance Abuse History Per: Patient History/Exam Limitations: no limitations Onset/Duration Of Symptoms: Days Current Symptoms Are (Timing): Still Present Suicide/Self Injury Attempted (Context): None Modifying Factor(s): Alcohol Severity: Moderate Associated Symptoms: denies: Suicidal Thoughts Involuntary Hold By: None Recent travel outside of the [place]: No Past Medical History Reviewed: Historical Data, Nursing Documentation, Vital Signs Vital Signs: Last Vital Signs Temp 98.0 F 11/28/17 01:25 Pulse 89 11/28/17 01:25 Resp 18 11/28/17 01:25 BP 123/79 11/28/17 01:25 Pulse Ox 96 11/28/17 02:17 - Medical History PMH: Anxiety, Arthritis, Bronchitis, CAD, Depression, Diabetes (Pt. did not disclose to residential mortgage underwriter, not aware), Fractures (RIGHT ARM), Gastritis, Gall Bladder Disease (s/p cholecystectomy), HTN, Post Traumatic Stress Disorder, Rheumatoid Arthritis, Seizures, Chronic Pain Denies: Chronic Kidney Disease Surgical History: Cholecystectomy - [facility] Procedures ALCOHOL DETOXIFICATION (07/04/15) APPLICATION OF SPLINT (03/20/13) CLOSURE SKIN & SUBCUTANEOUS NEC (08/14/13) DETOXIFICATION SERVICES FOR SUBSTANCE ABUSE TREATMENT (03/22/16) ESOPHAGOGASTRODUODENOSCOPY [EGD] W/CLOSED BIOPSY (02/16/15) OTHER GROUP THERAPY (03/12/13) PHYSICAL THERAPY NEC (07/04/15) TETANUS TOXOID ADMINIST (01/19/14) Family History: States: Unknown Family Hx - Social History Hx Tobacco Use: No Hx Alcohol Use: Yes Hx Substance Use: No - Immunization History Hx Tetanus Toxoid Vaccination: No Hx Influenza Vaccination: No Hx Pneumococcal Vaccination: No Review Of Systems Constitutional: Negative for: Fever, Chills Psych: Negative for: Suicidal ideation Physical Exam - Physical Exam Appears: Non-toxic, No Acute Distress, Other (alcohol on breath) Skin: Warm, Dry Head: Atraumatic, Normacephalic Eye(s): bilateral: Normal Inspection Oral Mucosa: Moist Neck: Trachea Midline, Supple Chest: Symmetrical Cardiovascular: Rhythm Regular Respiratory: No Rales, No Rhonchi, No Wheezing Gastrointestinal/Abdominal: Soft, No Tenderness, No Distention Back: Normal Inspection Extremity: Normal ROM Extremity: Bilateral: Atraumatic, No Pedal Edema Neurological/Psych: Oriented x3 ED Course And Treatment O2 Sat by Pulse Oximetry: 96 (RA) Pulse Ox Interpretation: Normal Progress Note: Patient is resting comfortably. Vital signs stable. Stable for discharge. Reevaluation Time: 05:27 Reassessment Condition: Improved Disposition Counseled Patient/Family Regarding: Studies Performed, Diagnosis - Disposition Referrals: [facility] [Outside] Disposition: HOME/ ROUTINE Disposition Time: 23:16 Condition: FAIR Instructions: Alcohol Intoxication (DC) Forms: [facility] (Greek) - POA Present On Arrival: None - Clinical Impression Clinical Impression: Alcohol intoxication, Alcohol abuse, daily use - Scribe Statement The provider has reviewed the documentation as recorded by the Scribe (Leah Gunter) Provider Attestation: All medical record entries made by the Scribe were at my direction and personally dictated by me. I have reviewed the chart and agree that the record accurately reflects my personal performance of the history, physical exam, medical decision making, and the department course for this patient. I have also personally directed, reviewed, and agree with the discharge instructions and disposition.
[2017-11-28 06:07] VITALS: BP 131/81; PULSE 82; RESP 20; TEMP 98.2
== END 2017-11-28 06:08 | disposition home or self-care (01) ==
LOC: C.ER 20:51
DX: F10.229 Alcohol dependence with intoxication, unspecified (principal); Y90.9 Presence of alcohol in blood, level not specified

== ENCOUNTER 2017-11-28 23:06 | Emergency (ER) | payer OTHER ==
[2017-11-28 23:07] VITALS: BMI 29.7
[2017-11-29 02:44] VITALS: BP 132/81; PULSE 103; RESP 20; TEMP 98; O2SAT 97
--- NOTE | 2017-11-29 06:31 | C.PDOC ---
History Of Present Illness Patient is a 57 year old male who presents to the ER with alcohol intoxication. He denies having any physical complaints at this time. No signs of injury or trauma. Time Seen by Provider: 11/29/17 01:00 Chief Complaint (Nursing): Substance Abuse History Per: Patient History/Exam Limitations: intoxication Onset/Duration Of Symptoms: Days Modifying Factor(s): Alcohol Past Medical History Reviewed: Historical Data, Nursing Documentation, Vital Signs Vital Signs: Last Vital Signs Temp 98 F 11/29/17 02:43 Pulse 103 H 11/29/17 02:43 Resp 20 11/29/17 02:43 BP 132/81 11/29/17 02:43 Pulse Ox 97 11/29/17 06:33 - Medical History PMH: Anxiety, Arthritis, Bronchitis, CAD, Depression, Diabetes (Pt. 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 writer / runner, not aware), Fractures (RIGHT ARM), Gastritis, Gall Bladder Disease (s/p cholecystectomy), HTN, Post Traumatic Stress Disorder, Rheumatoid Arthritis, Seizures, Chronic Pain Denies: Chronic Kidney Disease Surgical History: Cholecystectomy - [facility] Procedures ALCOHOL DETOXIFICATION (07/04/15) APPLICATION OF SPLINT (03/20/13) CLOSURE SKIN & SUBCUTANEOUS NEC (08/14/13) DETOXIFICATION SERVICES FOR SUBSTANCE ABUSE TREATMENT (03/22/16) ESOPHAGOGASTRODUODENOSCOPY [EGD] W/CLOSED BIOPSY (02/16/15) OTHER GROUP THERAPY (03/12/13) PHYSICAL THERAPY NEC (07/04/15) TETANUS TOXOID ADMINIST (01/19/14) Family History: States: Unknown Family Hx - Social History Hx Tobacco Use: No Hx Alcohol Use: Yes Hx Substance Use: No - Immunization History Hx Tetanus Toxoid Vaccination: No Hx Influenza Vaccination: No Hx Pneumococcal Vaccination: No Review Of Systems Except As Marked, All Systems Reviewed And Found Negative. Physical Exam - Physical Exam Appears: Non-toxic, No Acute Distress Skin: Normal Color, Warm, Dry Head: Atraumatic, Normacephalic Eye(s): bilateral: Normal Inspection, PERRL, EOMI Oral Mucosa: Moist Neck: Normal ROM, Supple Chest: Symmetrical Cardiovascular: Rhythm Regular, No Murmur Respiratory: Normal Breath Sounds, No Accessory Muscle Use Gastrointestinal/Abdominal: Soft, No Tenderness Back: Normal Inspection, No Vertebral Tenderness Extremity: Bilateral: Atraumatic, Normal Color And Temperature, Normal ROM Neurological/Psych: Normal Speech ED Course And Treatment O2 Sat by Pulse Oximetry: 97 (RA) Pulse Ox Interpretation: Normal Disposition - Disposition Disposition: HOME/ ROUTINE Disposition Time: 05:43 Condition: STABLE Forms: [facility] (Malawian) - POA Present On Arrival: None - Clinical Impression Clinical Impression: Alcohol intoxication - Scribe Statement The provider has reviewed the documentation as recorded by the Scribjosé miguel Gunter All medical record entries made by the Rominaibe were at my direction and personally dictated by me. I have reviewed the chart and agree that the record accurately reflects my personal performance of the history, physical exam, medical decision making, and the department course for this patient. I have also personally directed, reviewed, and agree with the discharge instructions and disposition.
== END 2017-11-29 07:06 | disposition home or self-care (01) ==
LOC: C.ER 23:06
DX: F10.129 Alcohol abuse with intoxication, unspecified (principal); E11.9 Type 2 diabetes mellitus without complications; I25.10 Atherosclerotic heart disease of native coronary artery without angina pectoris

== ENCOUNTER 2017-11-29 22:07 | Emergency (ER) | payer OTHER ==
[2017-11-29 22:11] VITALS: BMI 29.7
[2017-11-29 23:39] VITALS: RESP 20
--- NOTE | 2017-11-30 00:56 | C.PDOC ---
History Of Present Illness Patient is a 57 y/o male, with a Hx of depression, anxiety, alcoholism, and homelessness, who presents to the ED with alcohol intoxication and requesting a place to stay. Patient has extensive history of similar ED presentations. No physical complaints at this time. Time Seen by Provider: 11/30/17 00:55 Chief Complaint (Nursing): Substance Abuse History Per: Patient History/Exam Limitations: no limitations Onset/Duration Of Symptoms: Hrs Current Symptoms Are (Timing): Still Present Suicide/Self Injury Attempted (Context): None Modifying Factor(s): Alcohol Associated Symptoms: Anxiety, Depression Recent travel outside of the [place]: No Past Medical History Reviewed: Historical Data, Nursing Documentation, Vital Signs Vital Signs: Last Vital Signs Temp 98.2 F 11/29/17 23:37 Pulse 77 11/30/17 03:30 Resp 20 11/30/17 03:30 BP 136/70 11/30/17 03:30 Pulse Ox 97 11/30/17 03:30 - Medical History PMH: Anxiety, Arthritis, Bronchitis, CAD, Depression, Diabetes (Pt. did not disclose to food writer, not aware), Fractures (RIGHT ARM), Gastritis, Gall Bladder Disease (s/p cholecystectomy), HTN, Post Traumatic Stress Disorder, Rheumatoid Arthritis, Seizures, Chronic Pain Denies: Chronic Kidney Disease Surgical History: Cholecystectomy - [facility] Procedures ALCOHOL DETOXIFICATION (07/04/15) APPLICATION OF SPLINT (03/20/13) CLOSURE SKIN & SUBCUTANEOUS NEC (08/14/13) DETOXIFICATION SERVICES FOR SUBSTANCE ABUSE TREATMENT (03/22/16) ESOPHAGOGASTRODUODENOSCOPY [EGD] W/CLOSED BIOPSY (02/16/15) OTHER GROUP THERAPY (03/12/13) PHYSICAL THERAPY NEC (07/04/15) TETANUS TOXOID ADMINIST (01/19/14) Family History: States: No Known Family Hx - Social History Hx Tobacco Use: No Hx Alcohol Use: Yes Hx Substance Use: No - Immunization History Hx Tetanus Toxoid Vaccination: No Hx Influenza Vaccination: No Hx Pneumococcal Vaccination: No Review Of Systems Constitutional: Negative for: Fever, Chills Neurological: Positive for: Other (EtOH intoxication) Physical Exam - Physical Exam Appears: No Acute Distress Skin: Warm, Dry Head: Normacephalic Oral Mucosa: Moist Chest: Symmetrical Cardiovascular: Rhythm Regular, No Murmur Respiratory: Normal Breath Sounds, No Rales, No Rhonchi, No Wheezing Gastrointestinal/Abdominal: Soft, No Tenderness Neurological/Psych: Oriented x3, Normal Speech, Normal Cognition ED Course And Treatment O2 Sat by Pulse Oximetry: 98 Pulse Ox Interpretation: Normal Progress Note: Patient to be under ED observation until sobriety is reached. Reevaluation Time: 05:41 Reassessment Condition: Improved Disposition Counseled Patient/Family Regarding: Studies Performed, Diagnosis, Need For Followup - Disposition Referrals: [facility] at [facility] [Outside] Disposition: HOME/ ROUTINE Disposition Time: 00:55 Condition: FAIR Instructions: Alcohol Intoxication (DC) Forms: [employer] (Georgian) - Clinical Impression Clinical Impression: Alcohol intoxication, Chronic alcoholism, Alcohol abuse, daily use - Scribe Statement The provider has reviewed the documentation as recorded by the Scribe Yamilet Madrigal All medical record entries made by the Scribe were at my direction and personally dictated by me. I have reviewed the chart and agree that the record accurately reflects my personal performance of the history, physical exam, medical decision making, and the department course for this patient. I have also personally directed, reviewed, and agree with the discharge instructions and disposition.
[2017-11-30 06:06] VITALS: BP 144/70; PULSE 82; TEMP 97.1; O2SAT 97
== END 2017-11-30 06:06 | disposition home or self-care (01) ==
LOC: C.ER 22:07
DX: F10.229 Alcohol dependence with intoxication, unspecified (principal); Z59.0 Homelessness; E11.9 Type 2 diabetes mellitus without complications; I25.10 Atherosclerotic heart disease of native coronary artery without angina pectoris

== ENCOUNTER 2017-11-30 20:53 | Emergency (ER) | payer OTHER ==
[2017-11-30 20:53] VITALS: BMI 29.7
--- NOTE | 2017-11-30 22:18 | C.PDOC ---
History Of Present Illness 57 year old male with multiple prior visits to the ED presets intoxicated. Patient admits to drinking alcohol today and is requesting for a place to stay the night. Patient denies SI/HI, hallucinations, other physical complaints. Time Seen by Provider: 11/30/17 22:15 Chief Complaint (Nursing): Substance Abuse History Per: Patient History/Exam Limitations: intoxication Onset/Duration Of Symptoms: Hrs Current Symptoms Are (Timing): Still Present Suicide/Self Injury Attempted (Context): None Modifying Factor(s): Alcohol Associated Symptoms: denies: Depression, Suicidal Thoughts, Suicidal Plan Involuntary Hold By: None Recent travel outside of the [place]: No Additional History Per: Patient Past Medical History Reviewed: Historical Data, Nursing Documentation, Vital Signs Vital Signs: Last Vital Signs Temp 98.4 F 11/30/17 21:16 Pulse 112 H 11/30/17 21:16 Resp 20 11/30/17 21:16 BP 133/85 11/30/17 21:16 Pulse Ox 95 11/30/17 22:17 - Medical History PMH: Anxiety, Arthritis, Bronchitis, CAD, Depression, Diabetes (Pt. did not disclose to automotive service writer, not aware), Fractures (RIGHT ARM), Gastritis, Gall Bladder Disease (s/p cholecystectomy), HTN, Post Traumatic Stress Disorder, Rheumatoid Arthritis, Seizures, Chronic Pain Denies: Chronic Kidney Disease Surgical History: Cholecystectomy - [facility] Procedures ALCOHOL DETOXIFICATION (07/04/15) APPLICATION OF SPLINT (03/20/13) CLOSURE SKIN & SUBCUTANEOUS NEC (08/14/13) DETOXIFICATION SERVICES FOR SUBSTANCE ABUSE TREATMENT (03/22/16) ESOPHAGOGASTRODUODENOSCOPY [EGD] W/CLOSED BIOPSY (02/16/15) OTHER GROUP THERAPY (03/12/13) PHYSICAL THERAPY NEC (07/04/15) TETANUS TOXOID ADMINIST (01/19/14) Family History: States: Unknown Family Hx - Social History Hx Tobacco Use: No Hx Alcohol Use: Yes Hx Substance Use: No - Immunization History Hx Tetanus Toxoid Vaccination: No Hx Influenza Vaccination: No Hx Pneumococcal Vaccination: No Review Of Systems Constitutional: Negative for: Fever, Chills Cardiovascular: Negative for: Chest Pain Respiratory: Negative for: Cough, Shortness of Breath Gastrointestinal: Negative for: Nausea, Vomiting, Abdominal Pain Musculoskeletal: Negative for: Back Pain Skin: Negative for: Rash Psych: Negative for: Depression, Suicidal ideation Physical Exam - Physical Exam Appears: Non-toxic, No Acute Distress Skin: Warm, Dry Head: Normacephalic Nose: No Discharge, No Deformity Oral Mucosa: Moist Neck: Supple Chest: Symmetrical Cardiovascular: Rhythm Regular, No Murmur Respiratory: No Decreased Breath Sounds, No Rales, No Rhonchi, No Wheezing Gastrointestinal/Abdominal: Soft, No Tenderness, No Guarding, No Rebound Extremity: Normal ROM, No Tenderness, No Deformity, No Swelling ED Course And Treatment O2 Sat by Pulse Oximetry: 95 (On RA) Pulse Ox Interpretation: Normal Disposition Counseled Patient/Family Regarding: Studies Performed, Diagnosis, Need For Followup - Disposition Referrals: [facility] at [facility] [Outside] Disposition: HOME/ ROUTINE Disposition Time: 22:17 Condition: FAIR Instructions: Alcohol Intoxication (DC) Forms: [facility] (American) - Clinical Impression Clinical Impression: Alcohol intoxication, Alcohol abuse, daily use - Scribe Statement The provider has reviewed the documentation as recorded by the Scribe Woo Brown All medical record entries made by the Scribe were at my direction and personally dictated by me. I have reviewed the chart and agree that the record accurately reflects my personal performance of the history, physical exam, medical decision making, and the department course for this patient. I have also personally directed, reviewed, and agree with the discharge instructions and disposition.
[2017-11-30 23:30] VITALS: BP 133/79; PULSE 95; RESP 16; TEMP 97.5
[2017-12-01 05:15] VITALS: O2SAT 95
== END 2017-12-01 05:37 | disposition home or self-care (01) ==
LOC: C.ER 20:53
DX: F10.129 Alcohol abuse with intoxication, unspecified (principal); Y90.9 Presence of alcohol in blood, level not specified

== ENCOUNTER 2017-12-01 22:00 | Emergency (ER) | payer OTHER ==
[2017-12-01 22:01] VITALS: BMI 29.7
--- NOTE | 2017-12-01 22:54 | C.PDOC ---
History Of Present Illness Patient is a 57 year old male who presents to the ER with alcohol intoxication. He denies having any physical complaints at this time. No signs of injury or trauma. Patient is well known to ER and provider for multiple visits with similar presentation. History/Exam Limitations: intoxication Onset/Duration Of Symptoms: Persistent Modifying Factor(s): Alcohol Past Medical History Reviewed: Historical Data, Nursing Documentation, Vital Signs Vital Signs: Last Vital Signs Temp 98.6 F 12/02/17 04:05 Pulse 83 12/02/17 04:05 Resp 20 12/02/17 04:05 BP 120/75 12/02/17 04:05 Pulse Ox 96 12/02/17 04:05 - Medical History PMH: Anxiety, Arthritis, Bronchitis, CAD, Depression, Diabetes (Pt. 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 not disclose to manual writer, not aware), Fractures (RIGHT ARM), Gastritis, Gall Bladder Disease (s/p cholecystectomy), HTN, Post Traumatic Stress Disorder, Rheumatoid Arthritis, Seizures, Chronic Pain Denies: Chronic Kidney Disease Surgical History: Cholecystectomy - [facility] Procedures ALCOHOL DETOXIFICATION (07/04/15) APPLICATION OF SPLINT (03/20/13) CLOSURE SKIN & SUBCUTANEOUS NEC (08/14/13) DETOXIFICATION SERVICES FOR SUBSTANCE ABUSE TREATMENT (03/22/16) ESOPHAGOGASTRODUODENOSCOPY [EGD] W/CLOSED BIOPSY (02/16/15) OTHER GROUP THERAPY (03/12/13) PHYSICAL THERAPY NEC (07/04/15) TETANUS TOXOID ADMINIST (01/19/14) Family History: States: No Known Family Hx, Unknown Family Hx - Social History Hx Tobacco Use: No Hx Alcohol Use: Yes Hx Substance Use: No - Immunization History Hx Tetanus Toxoid Vaccination: No Hx Influenza Vaccination: No Hx Pneumococcal Vaccination: No Review Of Systems Except As Marked, All Systems Reviewed And Found Negative. Physical Exam - Physical Exam Appears: No Acute Distress Skin: Warm Head: Normacephalic Eye(s): bilateral: Normal Inspection Neck: Normal ROM, Supple Cardiovascular: Rhythm Regular, No Murmur Respiratory: Normal Breath Sounds, No Wheezing Gastrointestinal/Abdominal: Normal Exam, Soft, No Tenderness Back: Normal Inspection Extremity: Normal ROM Neurological/Psych: Oriented x3 Gait: Unsteady Disposition Counseled Patient/Family Regarding: Diagnosis - Disposition Referrals: [facility] [Outside] Disposition: HOME/ ROUTINE Disposition Time: 05:42 Condition: STABLE Instructions: Abuse of Alcohol (ED) - POA Present On Arrival: None - Clinical Impression Clinical Impression: Alcohol intoxication - Scribe Statement The provider has reviewed the documentation as recorded by the Scribe (Val Estrada) Provider Attestation: All medical record entries made by the Rominaibe were at my direction and personally dictated by me. I have reviewed the chart and agree that the record accurately reflects my personal performance of the history, physical exam, medical decision making, and the department course for this patient. I have also personally directed, reviewed, and agree with the discharge instructions and disposition.
[2017-12-02 04:07] VITALS: TEMP 98.6
[2017-12-02 06:07] VITALS: BP 124/71; PULSE 88; RESP 18; O2SAT 99
== END 2017-12-02 06:06 | disposition home or self-care (01) ==
LOC: C.ER 22:00
DX: F10.129 Alcohol abuse with intoxication, unspecified (principal); E11.9 Type 2 diabetes mellitus without complications; I25.10 Atherosclerotic heart disease of native coronary artery without angina pectoris

== ENCOUNTER 2017-12-02 20:40 | Emergency (ER) | payer OTHER ==
[2017-12-02 20:41] VITALS: BMI 29.7
[2017-12-02 21:48] VITALS: O2SAT 97
--- NOTE | 2017-12-03 00:29 | C.PDOC ---
History Of Present Illness Patient presents to the ER with acute ETOH intoxication. Denies physical complaints at this time. Time Seen by Provider: 12/03/17 00:27 Chief Complaint (Nursing): Substance Abuse History Per: Patient History/Exam Limitations: no limitations Onset/Duration Of Symptoms: Hrs Current Symptoms Are (Timing): Still Present Suicide/Self Injury Attempted (Context): None Modifying Factor(s): Alcohol Severity: None Pain Scale Rating Of: 0 Associated Symptoms: denies: Depression, Suicidal Thoughts Involuntary Hold By: None Recent travel outside of the [place]: No Past Medical History Reviewed: Historical Data, Nursing Documentation, Vital Signs Vital Signs: Last Vital Signs Temp 97.9 F 12/03/17 05:18 Pulse 105 H 12/03/17 05:18 Resp 18 12/03/17 05:18 BP 146/83 12/03/17 05:18 Pulse Ox 97 12/03/17 05:18 - Medical History PMH: Anxiety, Arthritis, Bronchitis, CAD, Depression, Diabetes (Pt. did not disclose to casualty underwriter, not aware), Fractures (RIGHT ARM), Gastritis, Gall Bladder Disease (s/p cholecystectomy), HTN, Post Traumatic Stress Disorder, Rheumatoid Arthritis, Seizures, Chronic Pain Surgical History: Cholecystectomy - [facility] Procedures ALCOHOL DETOXIFICATION (07/04/15) APPLICATION OF SPLINT (03/20/13) CLOSURE SKIN & SUBCUTANEOUS NEC (08/14/13) DETOXIFICATION SERVICES FOR SUBSTANCE ABUSE TREATMENT (03/22/16) ESOPHAGOGASTRODUODENOSCOPY [EGD] W/CLOSED BIOPSY (02/16/15) OTHER GROUP THERAPY (03/12/13) PHYSICAL THERAPY NEC (07/04/15) TETANUS TOXOID ADMINIST (01/19/14) Family History: States: No Known Family Hx - Social History Hx Tobacco Use: No Hx Alcohol Use: Yes Hx Substance Use: No - Immunization History Hx Tetanus Toxoid Vaccination: No Hx Influenza Vaccination: No Hx Pneumococcal Vaccination: No Review Of Systems Constitutional: Negative for: Fever, Chills Gastrointestinal: Negative for: Nausea, Vomiting, Diarrhea Physical Exam - Physical Exam Appears: Non-toxic, No Acute Distress, Other (ETOH on breath, No sign of injury) Skin: Warm, Dry Head: Normacephalic Oral Mucosa: Moist Chest: Symmetrical, No Tenderness Cardiovascular: Rhythm Regular Respiratory: No Rales, No Rhonchi, No Wheezing Gastrointestinal/Abdominal: Soft, No Tenderness Neurological/Psych: Oriented x3 ED Course And Treatment O2 Sat by Pulse Oximetry: 97 (Room air) Pulse Ox Interpretation: Normal Progress Note: pt clinically sober. ambulating without difficulty Reevaluation Time: 05:44 Reassessment Condition: Improved Disposition Counseled Patient/Family Regarding: Studies Performed, Diagnosis, Need For Followup - Disposition Referrals: [facility] [Outside] Disposition: HOME/ ROUTINE Disposition Time: 00:28 Condition: FAIR Instructions: Alcohol Intoxication (DC) Forms: [employer] (Egyptian) - Clinical Impression Clinical Impression: Alcohol intoxication, Alcohol abuse with intoxication, Alcohol abuse, daily use - Scribe Statement The provider has reviewed the documentation as recorded by the Scribe Fabián Ramirez All medical record entries made by the Scribe were at my direction and personally dictated by me. I have reviewed the chart and agree that the record accurately reflects my personal performance of the history, physical exam, medical decision making, and the department course for this patient. I have also personally directed, reviewed, and agree with the discharge instructions and disposition.
[2017-12-03 05:19] VITALS: BP 146/83; PULSE 105; RESP 18; TEMP 97.9
== END 2017-12-03 06:00 | disposition home or self-care (01) ==
LOC: C.ER 20:40
DX: F10.129 Alcohol abuse with intoxication, unspecified (principal); Y90.9 Presence of alcohol in blood, level not specified

== ENCOUNTER 2017-12-03 21:57 | Emergency (ER) | payer OTHER ==
[2017-12-03 21:57] VITALS: BMI 29.7
--- NOTE | 2017-12-03 23:01 | C.PDOC ---
History Of Present Illness 57 y/o male presents to the ED for evaluation of acute alcohol intoxication for an unknown duration. Patient is familiar to this ED and has had many prior visits with similar complaints. Patient admits to drinking earlier today. Patient is answering questions appropriately, offers no acute complaints and has no physical signs of trauma/injury. Chief Complaint (Nursing): Substance Abuse History Per: Patient History/Exam Limitations: intoxication Onset/Duration Of Symptoms: Unknown Current Symptoms Are (Timing): Still Present Suicide/Self Injury Attempted (Context): None Modifying Factor(s): Alcohol Associated Symptoms: denies: Suicidal Thoughts, Suicidal Plan Involuntary Hold By: None Recent travel outside of the [place]: No Additional History Per: Patient Past Medical History Reviewed: Historical Data, Nursing Documentation, Vital Signs Vital Signs: Last Vital Signs Temp 98 F 12/04/17 05:20 Pulse 101 H 12/04/17 05:20 Resp 18 12/04/17 05:20 BP 129/82 12/04/17 05:20 Pulse Ox 98 12/04/17 05:20 - Medical History PMH: Anxiety, Arthritis, Bronchitis, CAD, Depression, Diabetes (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 aware), Fractures (RIGHT ARM), Gastritis, Gall Bladder Disease (s/p cholecystectomy), HTN, Post Traumatic Stress Disorder, Rheumatoid Arthritis, Seizures, Chronic Pain Denies: Chronic Kidney Disease Surgical History: Cholecystectomy - [facility] Procedures ALCOHOL DETOXIFICATION (07/04/15) APPLICATION OF SPLINT (03/20/13) CLOSURE SKIN & SUBCUTANEOUS NEC (08/14/13) DETOXIFICATION SERVICES FOR SUBSTANCE ABUSE TREATMENT (03/22/16) ESOPHAGOGASTRODUODENOSCOPY [EGD] W/CLOSED BIOPSY (02/16/15) OTHER GROUP THERAPY (03/12/13) PHYSICAL THERAPY NEC (07/04/15) TETANUS TOXOID ADMINIST (01/19/14) Family History: States: Unknown Family Hx - Social History Hx Tobacco Use: No Hx Alcohol Use: Yes Hx Substance Use: No - Immunization History Hx Tetanus Toxoid Vaccination: No Hx Influenza Vaccination: No Hx Pneumococcal Vaccination: No Review Of Systems Psych: Positive for: Other (EtOH intoxication ). Negative for: Suicidal ideation Physical Exam - Physical Exam Appears: Non-toxic, No Acute Distress, Other (visibly intoxicated ) Skin: Normal Color, Warm, Dry Head: Atraumatic, Normacephalic Eye(s): bilateral: Normal Inspection Oral Mucosa: Moist, Other (alcohol on breath ) Neck: Supple Chest: Symmetrical, No Deformity, No Tenderness Cardiovascular: Rhythm Regular, No Murmur Respiratory: Normal Breath Sounds, No Rales, No Rhonchi, No Wheezing Gastrointestinal/Abdominal: Soft, No Tenderness Extremity: Normal ROM, Capillary Refill (less than 2 seconds ) Neurological/Psych: Other (arousable to touch and verbal stimuli ) Disposition - Disposition Referrals: Alcoholics Anonymous [Outside] Disposition: HOME/ ROUTINE Disposition Time: 05:55 Condition: FAIR Instructions: Alcohol Intoxication (ED) Forms: [employer] (Korean) - Clinical Impression Clinical Impression: Alcohol intoxication - Scribe Statement The provider has reviewed the documentation as recorded by the Scribe (Kari Fajardo) Provider Attestation: All medical record entries made by the Scribe were at my direction and personally dictated by me. I have reviewed the chart and agree that the record accurately reflects my personal performance of the history, physical exam, medical decision making, and the department course for this patient. I have also personally directed, reviewed, and agree with the discharge instructions and disposition.
[2017-12-04 05:20] VITALS: BP 129/82; PULSE 101; RESP 18; TEMP 98; O2SAT 98
== END 2017-12-04 05:46 | disposition home or self-care (01) ==
LOC: C.ER 21:57
DX: F10.129 Alcohol abuse with intoxication, unspecified (principal); E11.9 Type 2 diabetes mellitus without complications; I25.10 Atherosclerotic heart disease of native coronary artery without angina pectoris

== ENCOUNTER 2017-12-04 22:03 | Emergency (ER) | payer OTHER ==
[2017-12-04 22:04] VITALS: BMI 29.7
--- NOTE | 2017-12-04 22:11 | C.PDOC ---
History Of Present Illness The patient presents to the ED with acute alcohol intoxication for an unknown duration. Patient is familiar to this ED and has had many prior visits for the same complaint. He admits to drinking earlier today and has no physical complaints at this time. Time Seen by Provider: 12/04/17 22:09 Chief Complaint (Nursing): Substance Abuse History Per: Patient History/Exam Limitations: intoxication Onset/Duration Of Symptoms: Unknown Current Symptoms Are (Timing): Still Present Suicide/Self Injury Attempted (Context): None Modifying Factor(s): Alcohol Severity: None Pain Scale Rating Of: 0 Associated Symptoms: denies: Suicidal Thoughts, Suicidal Plan Involuntary Hold By: None Recent travel outside of the [place]: No Additional History Per: Patient Past Medical History Reviewed: Historical Data, Nursing Documentation, Vital Signs Vital Signs: Last Vital Signs Temp 97.7 F 12/04/17 22:10 Pulse 89 12/04/17 22:10 Resp 18 12/04/17 22:10 BP 129/74 12/04/17 22:10 Pulse Ox 97 12/04/17 22:22 - Medical History PMH: Anxiety, Arthritis, Bronchitis, CAD, Depression, 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 aware), Fractures (RIGHT ARM), Gastritis, Gall Bladder Disease (s/p cholecystectomy), HTN, Post Traumatic Stress Disorder, Rheumatoid Arthritis, Seizures, Chronic Pain Denies: Chronic Kidney Disease Surgical History: Cholecystectomy - [facility] Procedures ALCOHOL DETOXIFICATION (07/04/15) APPLICATION OF SPLINT (03/20/13) CLOSURE SKIN & SUBCUTANEOUS NEC (08/14/13) DETOXIFICATION SERVICES FOR SUBSTANCE ABUSE TREATMENT (03/22/16) ESOPHAGOGASTRODUODENOSCOPY [EGD] W/CLOSED BIOPSY (02/16/15) OTHER GROUP THERAPY (03/12/13) PHYSICAL THERAPY NEC (07/04/15) TETANUS TOXOID ADMINIST (01/19/14) Family History: States: Unknown Family Hx - Social History Hx Tobacco Use: No Hx Alcohol Use: Yes Hx Substance Use: No - Immunization History Hx Tetanus Toxoid Vaccination: No Hx Influenza Vaccination: No Hx Pneumococcal Vaccination: No Review Of Systems Constitutional: Negative for: Fever, Chills Cardiovascular: Negative for: Chest Pain, Palpitations Respiratory: Negative for: Cough, Shortness of Breath Gastrointestinal: Negative for: Nausea, Vomiting, Abdominal Pain, Diarrhea Skin: Negative for: Rash, Lesions, Jaundice, Bruising Psych: Positive for: Other (EtOH intoxication ). Negative for: Suicidal ideation Physical Exam - Physical Exam Appears: Non-toxic, No Acute Distress, Other (visibly intoxicated ) Skin: Warm, Dry Head: Normacephalic Eye(s): bilateral: Normal Inspection Oral Mucosa: Moist, Other (alcohol on breath ) Neck: Supple Chest: Symmetrical, No Deformity, No Tenderness Cardiovascular: Rhythm Regular, No Murmur Respiratory: No Rales, No Rhonchi, No Wheezing Extremity: Normal ROM, Capillary Refill (less than 2 seconds ) Neurological/Psych: Other (arousable to touch and verbal stimuli ) Gait: Steady ED Course And Treatment O2 Sat by Pulse Oximetry: 97 (on RA) Pulse Ox Interpretation: Normal Reevaluation Time: 05:37 Reassessment Condition: Improved Disposition Counseled Patient/Family Regarding: Studies Performed, Diagnosis, Need For Followup - Disposition Referrals: [facility] [Outside] Disposition: HOME/ ROUTINE Disposition Time: 22:10 Condition: FAIR Instructions: Alcohol Intoxication (DC) Forms: [employer] (Chadian) - Clinical Impression Clinical Impression: Alcohol intoxication, Alcohol abuse, daily use - Scribe Statement The provider has reviewed the documentation as recorded by the Scribe (Kari Fajardo) Provider Attestation: All medical record entries made by the Scribe were at my direction and personally dictated by me. I have reviewed the chart and agree that the record accurately reflects my personal performance of the history, physical exam, medical decision making, and the department course for this patient. I have also personally directed, reviewed, and agree with the discharge instructions and disposition.
[2017-12-04 22:12] VITALS: O2SAT 97
[2017-12-05 06:27] VITALS: BP 128/72; PULSE 80; RESP 20; TEMP 98
== END 2017-12-05 06:26 | disposition home or self-care (01) ==
LOC: C.ER 22:03
DX: F10.129 Alcohol abuse with intoxication, unspecified (principal); E11.9 Type 2 diabetes mellitus without complications; I25.10 Atherosclerotic heart disease of native coronary artery without angina pectoris

== ENCOUNTER 2017-12-05 20:37 | Emergency (ER) | payer OTHER ==
[2017-12-05 20:38] VITALS: BMI 29.7
[2017-12-05 22:55] VITALS: RESP 16; O2SAT 97
[2017-12-06 03:15] VITALS: BP 190/70; PULSE 97; TEMP 98.2
--- NOTE | 2017-12-06 04:05 | C.PDOC ---
History Of Present Illness 57 year old male presents to the ED for alcohol intoxication. Patient is well known to the ED with multiple prior visit for the same complaint. Patient admits to drinking alcohol tonight and states he wants a place to stay as well. Patient denies SI/HI, hallucinations, physical complaints. Chief Complaint (Nursing): Substance Abuse History Per: Patient History/Exam Limitations: intoxication Onset/Duration Of Symptoms: Hrs Current Symptoms Are (Timing): Still Present Suicide/Self Injury Attempted (Context): None Modifying Factor(s): Alcohol Associated Symptoms: denies: Depression, Suicidal Thoughts, Suicidal Plan Recent travel outside of the [place]: No Additional History Per: Patient Past Medical History Reviewed: Historical Data, Nursing Documentation, Vital Signs Vital Signs: Last Vital Signs Temp 98.2 F 12/06/17 03:15 Pulse 97 H 12/06/17 03:15 Resp 16 12/06/17 03:15 BP 190/70 H 12/06/17 03:15 Pulse Ox 97 12/06/17 04:05 - Medical History PMH: Anxiety, Arthritis, Bronchitis, CAD, Depression, Diabetes (Pt. did not disclose to production underwriter, not aware), Fractures (RIGHT ARM), Gastritis, Gall Bladder Disease (s/p cholecystectomy), HTN, Post Traumatic Stress Disorder, Rheumatoid Arthritis, Seizures, Chronic Pain Denies: Chronic Kidney Disease Surgical History: Cholecystectomy - [facility] Procedures ALCOHOL DETOXIFICATION (07/04/15) APPLICATION OF SPLINT (03/20/13) CLOSURE SKIN & SUBCUTANEOUS NEC (08/14/13) DETOXIFICATION SERVICES FOR SUBSTANCE ABUSE TREATMENT (03/22/16) ESOPHAGOGASTRODUODENOSCOPY [EGD] W/CLOSED BIOPSY (02/16/15) OTHER GROUP THERAPY (03/12/13) PHYSICAL THERAPY NEC (07/04/15) TETANUS TOXOID ADMINIST (01/19/14) Family History: States: Unknown Family Hx - Social History Hx Tobacco Use: No Hx Alcohol Use: Yes Hx Substance Use: No - Immunization History Hx Tetanus Toxoid Vaccination: No Hx Influenza Vaccination: No Hx Pneumococcal Vaccination: No Review Of Systems Constitutional: Negative for: Fever, Chills Cardiovascular: Negative for: Chest Pain Respiratory: Negative for: Cough, Shortness of Breath Gastrointestinal: Negative for: Nausea, Vomiting, Abdominal Pain Skin: Negative for: Rash Neurological: Negative for: Headache Psych: Negative for: Depression, Suicidal ideation Physical Exam - Physical Exam Appears: Non-toxic, Unkempt Skin: Normal Color, Warm, Dry Head: Atraumatic, Normacephalic Eye(s): bilateral: Normal Inspection Nose: No Discharge, No Deformity Oral Mucosa: Moist Neck: Normal ROM, Supple Chest: Symmetrical Cardiovascular: Rhythm Regular, No Murmur Respiratory: Normal Breath Sounds, No Rales, No Rhonchi, No Wheezing Gastrointestinal/Abdominal: Soft, No Tenderness, No Guarding, No Rebound Extremity: Normal ROM, No Pedal Edema, No Deformity, No Swelling Neurological/Psych: Oriented x3, Normal Speech, Normal Cognition ED Course And Treatment O2 Sat by Pulse Oximetry: 97 (On RA) Pulse Ox Interpretation: Normal Disposition - Disposition Disposition: HOME/ ROUTINE Disposition Time: 05:31 Condition: FAIR Forms: [facility] (Liberian) - Clinical Impression Clinical Impression: Alcohol intoxication - Scribe Statement The provider has reviewed the documentation as recorded by the Scribe Woo Brown All medical record entries made by the Scribe were at my direction and personally dictated by me. I have reviewed the chart and agree that the record accurately reflects my personal performance of the history, physical exam, medical decision making, and the department course for this patient. I have also personally directed, reviewed, and agree with the discharge instructions and disposition.
== END 2017-12-06 04:00 | disposition home or self-care (01) ==
LOC: C.ER 20:37
DX: F10.129 Alcohol abuse with intoxication, unspecified (principal); Y90.9 Presence of alcohol in blood, level not specified

== ENCOUNTER 2017-12-06 20:57 | Emergency (ER) | payer OTHER ==
[2017-12-06 20:58] VITALS: BMI 29.7
--- NOTE | 2017-12-06 22:14 | C.PDOC ---
History Of Present Illness 57 year old male presents to the ED with alcohol intoxication and requesting a place to sleep. Patient is well known to the ED and has multiple visit for the same complaints. Patient admits to drinking alcohol tonight. Patient denies SI/ HI, hallucinations, SOB, CP, abdominal pain. Chief Complaint (Nursing): Substance Abuse History Per: Patient History/Exam Limitations: intoxication Onset/Duration Of Symptoms: Days Current Symptoms Are (Timing): Still Present Suicide/Self Injury Attempted (Context): None Modifying Factor(s): Alcohol Associated Symptoms: denies: Depression, Suicidal Thoughts, Suicidal Plan Involuntary Hold By: None Recent travel outside of the [place]: No Additional History Per: Patient Past Medical History Reviewed: Historical Data, Nursing Documentation, Vital Signs Vital Signs: Last Vital Signs Temp 97.8 F 12/07/17 05:37 Pulse 92 H 12/07/17 05:37 Resp 18 12/07/17 05:37 BP 133/58 L 12/07/17 05:37 Pulse Ox 98 12/07/17 05:37 - Medical History PMH: Anxiety, Arthritis, Bronchitis, CAD, Depression, Diabetes (Pt. 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 writer, not aware), Fractures (RIGHT ARM), Gastritis, Gall Bladder Disease (s/p cholecystectomy), HTN, Post Traumatic Stress Disorder, Rheumatoid Arthritis, Seizures, Chronic Pain Denies: Chronic Kidney Disease Surgical History: Cholecystectomy - [facility] Procedures ALCOHOL DETOXIFICATION (07/04/15) APPLICATION OF SPLINT (03/20/13) CLOSURE SKIN & SUBCUTANEOUS NEC (08/14/13) DETOXIFICATION SERVICES FOR SUBSTANCE ABUSE TREATMENT (03/22/16) ESOPHAGOGASTRODUODENOSCOPY [EGD] W/CLOSED BIOPSY (02/16/15) OTHER GROUP THERAPY (03/12/13) PHYSICAL THERAPY NEC (07/04/15) TETANUS TOXOID ADMINIST (01/19/14) Family History: States: Unknown Family Hx - Social History Hx Tobacco Use: No Hx Alcohol Use: Yes Hx Substance Use: No - Immunization History Hx Tetanus Toxoid Vaccination: No Hx Influenza Vaccination: No Hx Pneumococcal Vaccination: No Review Of Systems Constitutional: Negative for: Fever, Chills Cardiovascular: Negative for: Chest Pain, Palpitations Respiratory: Negative for: Cough, Shortness of Breath Gastrointestinal: Negative for: Nausea, Vomiting, Abdominal Pain Skin: Negative for: Rash Neurological: Negative for: Weakness, Numbness, Headache Psych: Negative for: Depression, Suicidal ideation Physical Exam - Physical Exam Appears: Non-toxic, No Acute Distress Skin: Normal Color, Warm, Dry Head: Atraumatic, Normacephalic Eye(s): bilateral: Normal Inspection Nose: No Discharge, No Deformity Oral Mucosa: Moist Neck: Normal ROM, Supple Chest: Symmetrical Cardiovascular: Rhythm Regular, No Murmur Respiratory: Normal Breath Sounds, No Rales, No Rhonchi, No Wheezing Gastrointestinal/Abdominal: Soft, No Tenderness, No Guarding, No Rebound Extremity: Normal ROM, No Tenderness, No Deformity, No Swelling ED Course And Treatment O2 Sat by Pulse Oximetry: 97 (On RA) Pulse Ox Interpretation: Normal Medical Decision Making Medical Decision Making: Impression: acute alcohol intoxication Disposition - Disposition Referrals: Alcoholics Anonymous [Outside] Disposition: HOME/ ROUTINE Disposition Time: 05:45 Condition: FAIR Forms: [facility] (Nicaraguan) - Clinical Impression Clinical Impression: Alcohol intoxication - Scribe Statement The provider has reviewed the documentation as recorded by the Scribe Woo Brown All medical record entries made by the Scribe were at my direction and personally dictated by me. I have reviewed the chart and agree that the record accurately reflects my personal performance of the history, physical exam, medical decision making, and the department course for this patient. I have also personally directed, reviewed, and agree with the discharge instructions and disposition.
[2017-12-07 05:38] VITALS: BP 133/58; PULSE 92; RESP 18; TEMP 97.8
[2017-12-07 05:46] VITALS: O2SAT 97
== END 2017-12-07 05:37 | disposition home or self-care (01) ==
LOC: C.ER 20:57
DX: F10.129 Alcohol abuse with intoxication, unspecified (principal); Y90.9 Presence of alcohol in blood, level not specified; E11.9 Type 2 diabetes mellitus without complications

== ENCOUNTER 2017-12-07 19:29 | Emergency (ER) | payer OTHER ==
[2017-12-07 19:29] VITALS: BMI 29.7
--- NOTE | 2017-12-07 23:02 | C.PDOC ---
History Of Present Illness Pt was BIBEMS due to public alcohol intoxication. Time Seen by Provider: 12/07/17 20:15 Chief Complaint (Nursing): Substance Abuse History Per: Patient, EMS History/Exam Limitations: intoxication Onset/Duration Of Symptoms: Unknown Current Symptoms Are (Timing): Still Present Suicide/Self Injury Attempted (Context): None Modifying Factor(s): Alcohol Severity: Severe Associated Symptoms: denies: Suicidal Thoughts, Suicidal Plan Additional History Per: Prior Records Past Medical History Reviewed: Historical Data, Nursing Documentation, Vital Signs Vital Signs: Last Vital Signs Temp 98.9 F 12/08/17 03:15 Pulse 90 12/08/17 03:15 Resp 24 12/08/17 03:15 BP 110/68 12/08/17 03:15 Pulse Ox 97 12/08/17 03:15 - Medical History PMH: Anxiety, Arthritis, Bronchitis, CAD, Depression, Diabetes (Pt. did not disclose to procedure writer, not aware), Fractures (RIGHT ARM), Gastritis, Gall Bladder Disease (s/p cholecystectomy), HTN, Post Traumatic Stress Disorder, Rheumatoid Arthritis, Seizures, Chronic Pain Other PMH: Alcohol abuse Surgical History: Cholecystectomy - [facility] Procedures ALCOHOL DETOXIFICATION (07/04/15) APPLICATION OF SPLINT (03/20/13) CLOSURE SKIN & SUBCUTANEOUS NEC (08/14/13) DETOXIFICATION SERVICES FOR SUBSTANCE ABUSE TREATMENT (03/22/16) ESOPHAGOGASTRODUODENOSCOPY [EGD] W/CLOSED BIOPSY (02/16/15) OTHER GROUP THERAPY (03/12/13) PHYSICAL THERAPY NEC (07/04/15) TETANUS TOXOID ADMINIST (01/19/14) Family History: States: Unknown Family Hx - Social History Hx Tobacco Use: No Hx Alcohol Use: Yes Hx Substance Use: No - Immunization History Hx Tetanus Toxoid Vaccination: No Hx Influenza Vaccination: No Hx Pneumococcal Vaccination: No Review Of Systems Review Of Systems: ROS cannot be obtained secondary to pt's inabilty to answer questions. Physical Exam - Physical Exam Appears: Unkempt, Other (AOB, intoxicated) Skin: Normal Color, Warm, Dry Head: Atraumatic Eye(s): bilateral: PERRL Neck: Normal ROM, Supple Cardiovascular: Rhythm Regular Respiratory: Normal Breath Sounds, No Accessory Muscle Use Gastrointestinal/Abdominal: Soft, No Tenderness Back: No Vertebral Tenderness Extremity: Normal ROM, No Deformity Neurological/Psych: Eyes Open With Command, Other (Moving all extremities) Gait: Unable To Assess ED Course And Treatment O2 Sat by Pulse Oximetry: 98 Pulse Ox Interpretation: Normal Progress Note: Pt is now clinically sober. AAOx3. Steady gait. Reassessment Condition: Improved Disposition - Disposition Referrals: [facility] [Outside] Disposition: HOME/ ROUTINE Disposition Time: 04:30 Condition: IMPROVED Instructions: Alcohol Abuse and Alcoholism (DC) - Clinical Impression Clinical Impression: Alcohol abuse
[2017-12-08 04:41] VITALS: PULSE 90; TEMP 98.9
[2017-12-08 04:44] VITALS: BP 110/68; RESP 24
[2017-12-08 04:53] VITALS: O2SAT 98
== END 2017-12-08 03:15 | disposition home or self-care (01) ==
LOC: C.ER 19:29
DX: F10.10 Alcohol abuse, uncomplicated (principal); Y90.9 Presence of alcohol in blood, level not specified

== ENCOUNTER 2017-12-08 21:24 | Emergency (ER) | payer OTHER ==
[2017-12-08 21:25] VITALS: BMI 29.7
[2017-12-08 22:41] VITALS: RESP 20
[2017-12-09 04:18] VITALS: BP 120/83; PULSE 90; TEMP 97.8; O2SAT 97
--- NOTE | 2017-12-09 06:03 | C.PDOC ---
Time Seen by Provider: 12/08/17 22:42 Chief Complaint (Nursing): Substance Abuse History Per: Patient History/Exam Limitations: intoxication Onset/Duration Of Symptoms: Hrs Current Symptoms Are (Timing): Still Present Suicide/Self Injury Attempted (Context): None Modifying Factor(s): Alcohol Severity: Moderate Associated Symptoms: denies: Suicidal Thoughts, Suicidal Plan Additional History Per: Prior Records Past Medical History Reviewed: Historical Data, Nursing Documentation, Vital Signs Vital Signs: Last Vital Signs Temp 97.8 F 12/09/17 04:16 Pulse 90 12/09/17 04:16 Resp 20 12/09/17 04:16 BP 120/83 12/09/17 04:16 Pulse Ox 97 12/09/17 04:16 - Medical History PMH: Anxiety, Arthritis, Bronchitis, CAD, Depression, Diabetes (Pt. 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 not disclose to headline writer, not aware), Fractures (RIGHT ARM), Gastritis, Gall Bladder Disease (s/p cholecystectomy), HTN, Post Traumatic Stress Disorder, Rheumatoid Arthritis, Seizures, Chronic Pain Other PMH: Alcohol abuse Surgical History: Cholecystectomy - [facility] Procedures ALCOHOL DETOXIFICATION (07/04/15) APPLICATION OF SPLINT (03/20/13) CLOSURE SKIN & SUBCUTANEOUS NEC (08/14/13) DETOXIFICATION SERVICES FOR SUBSTANCE ABUSE TREATMENT (03/22/16) ESOPHAGOGASTRODUODENOSCOPY [EGD] W/CLOSED BIOPSY (02/16/15) OTHER GROUP THERAPY (03/12/13) PHYSICAL THERAPY NEC (07/04/15) TETANUS TOXOID ADMINIST (01/19/14) Family History: States: Unknown Family Hx - Social History Hx Tobacco Use: No Hx Alcohol Use: Yes Hx Substance Use: No - Immunization History Hx Tetanus Toxoid Vaccination: No Hx Influenza Vaccination: No Hx Pneumococcal Vaccination: No Review Of Systems Review Of Systems: ROS cannot be obtained secondary to pt's inabilty to answer questions. Physical Exam - Physical Exam Appears: Non-toxic, No Acute Distress, Unkempt, Other (AOB) Skin: Normal Color, Warm, Dry Head: Atraumatic, Normacephalic Eye(s): bilateral: PERRL, EOMI Neck: Normal ROM, No Midline Cervical Tenderness, No Step Off Deformity, Supple Chest: Symmetrical Cardiovascular: Rhythm Regular Respiratory: Normal Breath Sounds, No Accessory Muscle Use Gastrointestinal/Abdominal: Soft, No Tenderness Extremity: Normal ROM Neurological/Psych: Slow To Respond With Command Gait: Unable To Assess ED Course And Treatment O2 Sat by Pulse Oximetry: 97 Pulse Ox Interpretation: Normal Progress Note: Pt is now AAOx3. Steady gait. Clinically sober and requesting discharge home. Reassessment Condition: Improved Disposition Counseled Patient/Family Regarding: Diagnosis, Need For Followup - Disposition Referrals: [facility] at [facility] [Outside] Disposition: HOME/ ROUTINE Disposition Time: 06:02 Condition: IMPROVED Additional Instructions: Avoid alcohol. Follow up in the clinic. Return to the ER if you develop worsening of symptoms or if you have any other concerns. Instructions: Alcohol Abuse and Alcoholism (DC) - Clinical Impression Clinical Impression: Alcohol abuse
== END 2017-12-09 06:02 | disposition home or self-care (01) ==
LOC: C.ER 21:24
DX: F10.10 Alcohol abuse, uncomplicated (principal); Y90.9 Presence of alcohol in blood, level not specified

== ENCOUNTER 2017-12-09 17:46 | Emergency (ER) | payer OTHER ==
[2017-12-09 17:47] VITALS: BMI 29.7
--- NOTE | 2017-12-10 00:38 | C.PDOC ---
Time Seen by Provider: 12/09/17 21:26 Chief Complaint (Nursing): Substance Abuse Past Medical History Vital Signs: Last Vital Signs Temp 97.8 F 12/09/17 19:05 Pulse 84 12/09/17 19:05 Resp 18 12/09/17 19:05 BP 114/77 12/09/17 19:05 Pulse Ox 97 12/09/17 19:05 - Medical History PMH: Anxiety, Arthritis, Bronchitis, CAD, Depression, Diabetes (Pt. did not disclose to life underwriter, not aware), Fractures (RIGHT ARM), Gastritis, Gall Bladder Disease (s/p cholecystectomy), HTN, Post Traumatic Stress Disorder, Rheumatoid Arthritis, Seizures, Chronic Pain Denies: Chronic Kidney Disease Surgical History: Cholecystectomy - [facility] Procedures ALCOHOL DETOXIFICATION (07/04/15) APPLICATION OF SPLINT (03/20/13) CLOSURE SKIN & SUBCUTANEOUS NEC (08/14/13) DETOXIFICATION SERVICES FOR SUBSTANCE ABUSE TREATMENT (03/22/16) ESOPHAGOGASTRODUODENOSCOPY [EGD] W/CLOSED BIOPSY (02/16/15) OTHER GROUP THERAPY (03/12/13) PHYSICAL THERAPY NEC (07/04/15) TETANUS TOXOID ADMINIST (01/19/14) Family History: States: Unknown Family Hx - Social History Hx Tobacco Use: No Hx Alcohol Use: Yes Hx Substance Use: No - Immunization History Hx Tetanus Toxoid Vaccination: No Hx Influenza Vaccination: No Hx Pneumococcal Vaccination: No ED Course And Treatment O2 Sat by Pulse Oximetry: 97 Reevaluation Time: 01:00 Reassessment Condition: Improved Medical Decision Making Medical Decision Making: typical alcohol abuse no new issues. signed over @ 0100 pending sobriety in AM Disposition - Disposition Disposition Time: 01:00 Condition: FAIR - Clinical Impression Clinical Impression: Alcoholism /alcohol abuse Physician Patient Turnover Patient Signed Over To: Billie Atkins Handoff Comments: dispo when sober in AM
--- NOTE | 2017-12-10 00:39 | C.PDOC ---
History Of Present Illness 57 year old male presents to the ED ambulatory on his own for evaluation of public intoxication. Patient is a local homeless alcoholic and is well known to ED staff. No other acute complaints at this time. (Andrey Craig) History Per: Patient History/Exam Limitations: intoxication Onset/Duration Of Symptoms: Unknown Modifying Factor(s): Alcohol Involuntary Hold By: None Time Seen by Provider: 12/09/17 21:26 Chief Complaint (Nursing): Substance Abuse Past Medical History Reviewed: Historical Data, Nursing Documentation, Vital Signs - Medical History PMH: Anxiety, Arthritis, Bronchitis, CAD, Depression, Diabetes (Pt. 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 automatic, not aware), Fractures (RIGHT ARM), Gastritis, Gall Bladder Disease (s/p cholecystectomy), HTN, Post Traumatic Stress Disorder, Rheumatoid Arthritis, Seizures, Chronic Pain Denies: Chronic Kidney Disease Surgical History: Cholecystectomy Family History: States: Unknown Family Hx - Social History Hx Tobacco Use: No Hx Alcohol Use: Yes Hx Substance Use: No - Immunization History Hx Tetanus Toxoid Vaccination: No Hx Influenza Vaccination: No Hx Pneumococcal Vaccination: No Vital Signs: Last Vital Signs Temp 97.6 F 12/10/17 01:50 Pulse 94 H 12/10/17 05:04 Resp 18 12/10/17 05:04 BP 140/80 12/10/17 05:04 Pulse Ox 97 12/10/17 05:04 - [facility] Procedures ALCOHOL DETOXIFICATION (07/04/15) APPLICATION OF SPLINT (03/20/13) CLOSURE SKIN & SUBCUTANEOUS NEC (08/14/13) DETOXIFICATION SERVICES FOR SUBSTANCE ABUSE TREATMENT (03/22/16) ESOPHAGOGASTRODUODENOSCOPY [EGD] W/CLOSED BIOPSY (02/16/15) OTHER GROUP THERAPY (03/12/13) PHYSICAL THERAPY NEC (07/04/15) TETANUS TOXOID ADMINIST (01/19/14) Review Of Systems Except As Marked, All Systems Reviewed And Found Negative. Constitutional: Negative for: Fever, Chills ENT: Negative for: Ear Pain, Throat Pain Cardiovascular: Negative for: Chest Pain Respiratory: Negative for: Shortness of Breath Gastrointestinal: Negative for: Nausea, Vomiting, Abdominal Pain, Diarrhea Skin: Negative for: Rash Neurological: Negative for: Headache Psych: Positive for: Other (Alcohol abuse ) Physical Exam - Physical Exam Appears: No Acute Distress, Unkempt (Disheveled, foul smelling ) Skin: Normal Color, Warm, Dry Head: Atraumatic, Normacephalic Eye(s): bilateral: Normal Inspection, PERRL, EOMI Oral Mucosa: Moist Tongue: Normal Appearing Lips: Normal Appearing Throat: Normal Neck: Normal, Normal ROM, Supple Cardiovascular: Rhythm Regular Respiratory: Normal Breath Sounds Gastrointestinal/Abdominal: Soft, No Tenderness Back: Normal Inspection Extremity: Normal ROM, No Deformity Neurological/Psych: Oriented x3 Gait: Other (Shuffling gait) ED Course And Treatment O2 Sat by Pulse Oximetry: 97 Medical Decision Making Medical Decision Making: typical alcohol abuse no new issues. signed over @ 0100 pending sobriety in AM (Andrey Craig) Disposition - Disposition Disposition Time: 01:00 - Disposition Referrals: Alcoholics Anonymous [Outside] Disposition: HOME/ ROUTINE Condition: FAIR Forms: [facility] (Albanian) Print Language: VINCENTIAN - Clinical Impression Clinical Impression: Alcoholism /alcohol abuse - Scribe Statement The provider has reviewed the documentation as recorded by the Scribe (Neftali Sanchez) (Andrey Craig) Provider Attestation: All medical record entries made by the Scribe were at my direction and personally dictated by me. I have reviewed the chart and agree that the record accurately reflects my personal performance of the history, physical exam, medical decision making, and the department course for this patient. I have also personally directed, reviewed, and agree with the discharge instructions and disposition. (Andrey Craig) Physician Patient Turnover Patient Signed Over To: Billie Atkins Handoff Comments: dispo when sober in AM
[2017-12-10 01:50] VITALS: TEMP 97.6
[2017-12-10 05:05] VITALS: BP 140/80; PULSE 94; RESP 18; O2SAT 97
== END 2017-12-10 05:31 | disposition home or self-care (01) ==
LOC: C.ER 17:46
DX: F10.229 Alcohol dependence with intoxication, unspecified (principal); Y90.9 Presence of alcohol in blood, level not specified

== ENCOUNTER 2017-12-10 20:17 | Emergency (ER) | payer MEDICAID, OTHER ==
[2017-12-10 20:17] VITALS: BMI 29.7
[2017-12-10 21:35] VITALS: RESP 20; TEMP 98
--- NOTE | 2017-12-11 01:08 | C.PDOC ---
History Of Present Illness 57 year old male presents to the ED for evaluation of acute alcohol intoxication for an unknown duration. Patient is familiar to the ED and has had many prior visits concerning alcohol intoxication. Patient admits to drinking earlier today. He denies suicidal/homicidal ideation and has no physical complaints at this time. Chief Complaint (Nursing): Substance Abuse History Per: Patient History/Exam Limitations: intoxication Onset/Duration Of Symptoms: Unknown Current Symptoms Are (Timing): Still Present Suicide/Self Injury Attempted (Context): None Modifying Factor(s): Alcohol Associated Symptoms: denies: Suicidal Thoughts, Suicidal Plan Involuntary Hold By: None Recent travel outside of the [place]: No Additional History Per: Patient Past Medical History Reviewed: Historical Data, Nursing Documentation, Vital Signs Vital Signs: Last Vital Signs Temp 98 F 12/10/17 21:25 Pulse 89 12/11/17 04:00 Resp 20 12/11/17 04:00 BP 129/78 12/11/17 04:00 Pulse Ox 97 12/11/17 05:39 - Medical History PMH: Anxiety, Arthritis, Bronchitis, CAD, Depression, Diabetes (Pt. did not disclose to policy writer, not aware), Fractures (RIGHT ARM), Gastritis, Gall Bladder Disease (s/p cholecystectomy), HTN, Post Traumatic Stress Disorder, Rheumatoid Arthritis, Seizures, Chronic Pain Denies: Chronic Kidney Disease Surgical History: Cholecystectomy - [facility] Procedures ALCOHOL DETOXIFICATION (07/04/15) APPLICATION OF SPLINT (03/20/13) CLOSURE SKIN & SUBCUTANEOUS NEC (08/14/13) DETOXIFICATION SERVICES FOR SUBSTANCE ABUSE TREATMENT (03/22/16) ESOPHAGOGASTRODUODENOSCOPY [EGD] W/CLOSED BIOPSY (02/16/15) OTHER GROUP THERAPY (03/12/13) PHYSICAL THERAPY NEC (07/04/15) TETANUS TOXOID ADMINIST (01/19/14) Family History: States: Unknown Family Hx - Social History Hx Tobacco Use: No Hx Alcohol Use: Yes Hx Substance Use: No - Immunization History Hx Tetanus Toxoid Vaccination: No Hx Influenza Vaccination: No Hx Pneumococcal Vaccination: No Review Of Systems Psych: Positive for: Other (EtOH intoxication ). Negative for: Suicidal ideation Physical Exam - Physical Exam Appears: Non-toxic, No Acute Distress, Other (visibly intoxicated ) Skin: Normal Color, Warm, Dry Head: Atraumatic, Normacephalic Eye(s): bilateral: Normal Inspection Oral Mucosa: Moist, Other (alcohol on breath ) Neck: Supple Chest: Symmetrical, No Deformity, No Tenderness Cardiovascular: Rhythm Regular, No Murmur Respiratory: Normal Breath Sounds, No Rales, No Rhonchi, No Wheezing Extremity: Normal ROM, Capillary Refill (less than 2 seconds ) Neurological/Psych: Other (arousable to touch and verbal stimuli ) Gait: Unsteady ED Course And Treatment O2 Sat by Pulse Oximetry: 97 (on RA ) Pulse Ox Interpretation: Normal Progress Note: Pt is now AAOx3, fully ambulatory in ED, VSS Disposition - Disposition Referrals: Non [facility] Provider, [Primary Care Provider] - Disposition: HOME/ ROUTINE Disposition Time: 03:17 Condition: STABLE Additional Instructions: Follow up in clinic Return if worse Instructions: Alcohol Abuse and Alcoholism (DC) Forms: [employer] [facility] (Cymro) - Clinical Impression Clinical Impression: Alcohol intoxication - 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 - Scribe Statement The provider has reviewed the documentation as recorded by the Scribe (Kari Fajardo) All medical record entries made by the Scribe were at my direction and personally dictated by me. I have reviewed the chart and agree that the record accurately reflects my personal performance of the history, physical exam, medical decision making, and the department course for this patient. I have also personally directed, reviewed, and agree with the discharge instructions and disposition.
[2017-12-11 05:11] VITALS: BP 129/78; PULSE 89
[2017-12-11 05:39] VITALS: O2SAT 97
== END 2017-12-11 04:30 | disposition home or self-care (01) ==
LOC: SUPCPDRO 20:17 → C.ER 20:17
DX: F10.129 Alcohol abuse with intoxication, unspecified (principal); Y90.9 Presence of alcohol in blood, level not specified

== ENCOUNTER 2017-12-11 19:40 | Emergency (ER) | payer OTHER ==
[2017-12-11 19:40] VITALS: BMI 29.7
--- NOTE | 2017-12-11 22:02 | C.PDOC ---
History Of Present Illness 57 year old male presents to the ED for evaluation of acute alcohol intoxication for an unknown duration. Patient is familiar to the ED and has had many prior visits concerning alcohol intoxication. Patient admits to drinking earlier today. He denies suicidal/homicidal ideation and has no physical complaints at this time. Time Seen by Provider: 12/11/17 22:00 Chief Complaint (Nursing): Substance Abuse History Per: Patient History/Exam Limitations: intoxication Onset/Duration Of Symptoms: Unknown Current Symptoms Are (Timing): Still Present Suicide/Self Injury Attempted (Context): None Modifying Factor(s): Alcohol Severity: None Associated Symptoms: denies: Suicidal Thoughts, Suicidal Plan Involuntary Hold By: None Recent travel outside of the [place]: No Past Medical History Reviewed: Historical Data, Nursing Documentation, Vital Signs Vital Signs: Last Vital Signs Temp 97.7 F 12/12/17 00:45 Pulse 81 12/12/17 00:45 Resp 16 12/12/17 00:45 BP 123/75 12/12/17 00:45 Pulse Ox 97 12/12/17 00:45 - Medical History PMH: Anxiety, Arthritis, Bronchitis, CAD, Depression, Diabetes (Pt. 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, not aware), Fractures (RIGHT ARM), Gastritis, Gall Bladder Disease (s/p cholecystectomy), HTN, Post Traumatic Stress Disorder, Rheumatoid Arthritis, Seizures, Chronic Pain Denies: Chronic Kidney Disease Surgical History: Cholecystectomy - [facility] Procedures ALCOHOL DETOXIFICATION (07/04/15) APPLICATION OF SPLINT (03/20/13) CLOSURE SKIN & SUBCUTANEOUS NEC (08/14/13) DETOXIFICATION SERVICES FOR SUBSTANCE ABUSE TREATMENT (03/22/16) ESOPHAGOGASTRODUODENOSCOPY [EGD] W/CLOSED BIOPSY (02/16/15) OTHER GROUP THERAPY (03/12/13) PHYSICAL THERAPY NEC (07/04/15) TETANUS TOXOID ADMINIST (01/19/14) Family History: States: Unknown Family Hx - Social History Hx Tobacco Use: No Hx Alcohol Use: Yes Hx Substance Use: No - Immunization History Hx Tetanus Toxoid Vaccination: No Hx Influenza Vaccination: No Hx Pneumococcal Vaccination: No Review Of Systems Constitutional: Negative for: Fever, Chills ENT: Negative for: Ear Pain, Throat Pain Cardiovascular: Negative for: Chest Pain Respiratory: Negative for: Shortness of Breath Gastrointestinal: Negative for: Nausea, Vomiting, Abdominal Pain, Diarrhea Genitourinary: Negative for: Dysuria Skin: Negative for: Rash Neurological: Negative for: Headache Psych: Positive for: Other (Alcohol abuse). Negative for: Suicidal ideation Physical Exam - Physical Exam Appears: Non-toxic, No Acute Distress, Other (Appears intoxicated ) Skin: Warm, Dry Head: Normacephalic Eye(s): bilateral: Normal Inspection Oral Mucosa: Moist, Other (alcohol on breath) Neck: Trachea Midline, Supple Chest: Symmetrical Cardiovascular: Rhythm Regular Respiratory: No Rales, No Rhonchi, No Wheezing Gastrointestinal/Abdominal: Soft, No Tenderness, No Distention Back: Normal Inspection Extremity: Normal ROM, Other (DP pulses 2+ bilaterally ) Extremity: Bilateral: Atraumatic Neurological/Psych: Other (Arousable to verbal stimuli) ED Course And Treatment O2 Sat by Pulse Oximetry: 96 Pulse Ox Interpretation: Normal Disposition Counseled Patient/Family Regarding: Studies Performed, Diagnosis, Need For Followup - Disposition Referrals: [facility] at [facility] [Outside] Disposition: HOME/ ROUTINE Disposition Time: 22:01 Condition: FAIR Instructions: Alcohol Abuse and Alcoholism (DC) Forms: [employer] (French) - Clinical Impression Clinical Impression: Alcohol intoxication, Chronic alcoholism - Scribe Statement The provider has reviewed the documentation as recorded by the Rominaibe Neftali Sanchez Provider Attestation: All medical record entries made by the Rominaibe were at my direction and personally dictated by me. I have reviewed the chart and agree that the record accurately reflects my personal performance of the history, physical exam, medical decision making, and the department course for this patient. I have also personally directed, reviewed, and agree with the discharge instructions and disposition.
[2017-12-12] MEDS ORDERED: Vitamins A & D Oint UD Foilpak ONE (00:25)
[2017-12-12 05:33] VITALS: BP 128/84; PULSE 79; RESP 15; TEMP 98.6; O2SAT 99
== END 2017-12-12 05:44 | disposition home or self-care (01) ==
LOC: C.ER 19:40
DX: F10.229 Alcohol dependence with intoxication, unspecified (principal); Y90.9 Presence of alcohol in blood, level not specified

== ENCOUNTER 2017-12-12 18:59 | Emergency (ER) | payer OTHER ==
[2017-12-12 18:59] VITALS: BMI 29.7
--- NOTE | 2017-12-12 20:40 | C.PDOC ---
History Of Present Illness 57 year old male presents to the ER with acute ETOH intoxication, requesting a place to spend the night. Denies physical complaints at this time. Time Seen by Provider: 12/12/17 20:38 Chief Complaint (Nursing): Substance Abuse History Per: Patient History/Exam Limitations: no limitations Onset/Duration Of Symptoms: Hrs Current Symptoms Are (Timing): Still Present Suicide/Self Injury Attempted (Context): None Modifying Factor(s): Alcohol Severity: None Pain Scale Rating Of: 0 Associated Symptoms: denies: Depression, Suicidal Thoughts Involuntary Hold By: None Recent travel outside of the [place]: No Past Medical History Reviewed: Historical Data, Nursing Documentation, Vital Signs Vital Signs: Last Vital Signs Temp 98.1 F 12/13/17 04:06 Pulse 82 12/13/17 04:06 Resp 19 12/13/17 04:06 BP 123/82 12/13/17 04:06 Pulse Ox 97 12/13/17 04:06 - Medical History PMH: Anxiety, Arthritis, Bronchitis, CAD, Depression, Diabetes (Pt. did not disclose to automatic typewriter inspector, not aware), Fractures (RIGHT ARM), Gastritis, Gall Bladder Disease (s/p cholecystectomy), HTN, Post Traumatic Stress Disorder, Rheumatoid Arthritis, Seizures, Chronic Pain Surgical History: Cholecystectomy - [facility] Procedures ALCOHOL DETOXIFICATION (07/04/15) APPLICATION OF SPLINT (03/20/13) CLOSURE SKIN & SUBCUTANEOUS NEC (08/14/13) DETOXIFICATION SERVICES FOR SUBSTANCE ABUSE TREATMENT (03/22/16) ESOPHAGOGASTRODUODENOSCOPY [EGD] W/CLOSED BIOPSY (02/16/15) OTHER GROUP THERAPY (03/12/13) PHYSICAL THERAPY NEC (07/04/15) TETANUS TOXOID ADMINIST (01/19/14) Family History: States: Unknown Family Hx - Social History Hx Tobacco Use: No Hx Alcohol Use: Yes Hx Substance Use: No - Immunization History Hx Tetanus Toxoid Vaccination: No Hx Influenza Vaccination: No Hx Pneumococcal Vaccination: No Review Of Systems Constitutional: Negative for: Fever, Chills Gastrointestinal: Negative for: Nausea, Vomiting, Diarrhea Physical Exam - Physical Exam Appears: Non-toxic, Other (ETOH on breath, no injuries noted) Skin: Warm, Dry Head: Normacephalic Oral Mucosa: Moist Chest: Symmetrical, No Tenderness Cardiovascular: Rhythm Regular Respiratory: No Rales, No Rhonchi, No Wheezing Gastrointestinal/Abdominal: Soft, No Tenderness Neurological/Psych: Oriented x3 ED Course And Treatment O2 Sat by Pulse Oximetry: 99 Pulse Ox Interpretation: Normal Reevaluation Time: 05:18 Reassessment Condition: Improved Disposition Counseled Patient/Family Regarding: Studies Performed, Diagnosis, Need For Followup - Disposition Referrals: [facility] at [facility] [Outside] Disposition: HOME/ ROUTINE Disposition Time: 20:38 Condition: FAIR Instructions: Alcohol Abuse and Alcoholism (DC) Forms: [employer] (Lithuanian) - Clinical Impression Clinical Impression: Alcohol intoxication, Alcohol abuse - Scribe Statement The provider has reviewed the documentation as recorded by the Scribe Fabián Ramirez All medical record entries made by the Scribe were at my direction and personally dictated by me. I have reviewed the chart and agree that the record accurately reflects my personal performance of the history, physical exam, medical decision making, and the department course for this patient. I have also personally directed, reviewed, and agree with the discharge instructions and disposition.
[2017-12-13 06:06] VITALS: BP 141/88; PULSE 91; RESP 20; TEMP 97.6; O2SAT 98
== END 2017-12-13 06:07 | disposition home or self-care (01) ==
LOC: C.ER 18:59
DX: F10.129 Alcohol abuse with intoxication, unspecified (principal); E11.9 Type 2 diabetes mellitus without complications; I25.10 Atherosclerotic heart disease of native coronary artery without angina pectoris

== ENCOUNTER 2017-12-13 20:26 | Emergency (ER) | payer OTHER ==
[2017-12-13 20:26] VITALS: BMI 29.7
--- NOTE | 2017-12-13 20:44 | C.PDOC ---
History Of Present Illness 57 y/o male presents to ED with acute alcohol intoxication. Pt is well known to ED staff for multiple prior visits for alcohol intoxication. Pt denies SI, HI, or any active physical complaints at this time. Time Seen by Provider: 12/13/17 20:42 Chief Complaint (Nursing): Substance Abuse History Per: Patient History/Exam Limitations: intoxication Onset/Duration Of Symptoms: Gradual Current Symptoms Are (Timing): Still Present Suicide/Self Injury Attempted (Context): None Modifying Factor(s): Alcohol Severity: None Pain Scale Rating Of: 0 Associated Symptoms: denies: Suicidal Thoughts, Suicidal Plan Involuntary Hold By: None Recent travel outside of the [place]: No Additional History Per: Prior Records Past Medical History Reviewed: Historical Data, Nursing Documentation, Vital Signs Vital Signs: Last Vital Signs Temp 98.4 F 12/14/17 00:11 Pulse 95 H 12/14/17 00:11 Resp 18 12/14/17 00:11 BP 140/87 12/14/17 00:11 Pulse Ox 96 12/14/17 00:11 - Medical History PMH: Anxiety, Arthritis, Bronchitis, CAD, Depression, Diabetes (Pt. did not disclose to speech writer, not aware), Fractures (RIGHT ARM), Gastritis, Gall Bladder Disease (s/p cholecystectomy), HTN, Post Traumatic Stress Disorder, Rheumatoid Arthritis, Seizures, Chronic Pain Denies: Chronic Kidney Disease Surgical History: Cholecystectomy - [facility] Procedures ALCOHOL DETOXIFICATION (07/04/15) APPLICATION OF SPLINT (03/20/13) CLOSURE SKIN & SUBCUTANEOUS NEC (08/14/13) DETOXIFICATION SERVICES FOR SUBSTANCE ABUSE TREATMENT (03/22/16) ESOPHAGOGASTRODUODENOSCOPY [EGD] W/CLOSED BIOPSY (02/16/15) OTHER GROUP THERAPY (03/12/13) PHYSICAL THERAPY NEC (07/04/15) TETANUS TOXOID ADMINIST (01/19/14) Family History: States: Unknown Family Hx - Social History Hx Tobacco Use: No Hx Alcohol Use: Yes Hx Substance Use: No - Immunization History Hx Tetanus Toxoid Vaccination: No Hx Influenza Vaccination: No Hx Pneumococcal Vaccination: No Review Of Systems Constitutional: Negative for: Fever, Chills Cardiovascular: Negative for: Chest Pain, Palpitations Respiratory: Negative for: Cough, Shortness of Breath Gastrointestinal: Negative for: Nausea, Vomiting, Abdominal Pain Genitourinary: Negative for: Dysuria, Frequency, Hematuria Neurological: Negative for: Headache, Dizziness Psych: Negative for: Suicidal ideation Physical Exam - Physical Exam Appears: Non-toxic, No Acute Distress, Other (EtOH on breath, no signs of injury ) Skin: Warm, Dry Head: Atraumatic, Normacephalic Eye(s): bilateral: EOMI Oral Mucosa: Moist Cardiovascular: Rhythm Regular Respiratory: No Accessory Muscle Use, No Rales, No Rhonchi, No Wheezing Extremity: Normal ROM Neurological/Psych: Oriented x3 ED Course And Treatment O2 Sat by Pulse Oximetry: 96 Pulse Ox Interpretation: Normal Reevaluation Time: 05:30 Reassessment Condition: Improved Disposition Counseled Patient/Family Regarding: Studies Performed, Diagnosis, Need For Followup - Disposition Referrals: [facility] at [facility] [Outside] Disposition: HOME/ ROUTINE Disposition Time: 20:43 Condition: FAIR Instructions: Alcohol Abuse and Alcoholism (DC) Forms: [employer] [facility] (Turkish) - Clinical Impression Clinical Impression: Alcohol abuse, Alcoholic intoxication - Scribe Statement The provider has reviewed the documentation as recorded by the Scribjosé miguel [email or web address] All medical record entries made by the Scribe were at my direction and personally dictated by me. I have reviewed the chart and agree that the record accurately reflects my personal performance of the history, physical exam, medical decision making, and the department course for this patient. I have also personally directed, reviewed, and agree with the discharge instructions and disposition.
[2017-12-14 00:12] VITALS: RESP 18; TEMP 98.4
[2017-12-14 06:14] VITALS: BP 118/75; PULSE 76; O2SAT 99
== END 2017-12-14 06:50 | disposition home or self-care (01) ==
LOC: C.ER 20:26
DX: F10.129 Alcohol abuse with intoxication, unspecified (principal); Y90.9 Presence of alcohol in blood, level not specified

== ENCOUNTER 2017-12-14 19:36 | Emergency (ER) | payer OTHER ==
[2017-12-14 19:37] VITALS: BMI 29.7
[2017-12-14 20:33] VITALS: TEMP 98
--- NOTE | 2017-12-14 20:55 | C.PDOC ---
History Of Present Illness 57 year old male presents to the ED for evaluation of acute alcohol intoxication. Patient is seen frequently with the same complaint and is well known to ED staff. No trauma, SI, or HI. He has no new acute complaints at this time. Time Seen by Provider: 12/14/17 20:54 Chief Complaint (Nursing): Substance Abuse History Per: Patient History/Exam Limitations: intoxication Onset/Duration Of Symptoms: Unknown Current Symptoms Are (Timing): Still Present Suicide/Self Injury Attempted (Context): None Modifying Factor(s): Alcohol Associated Symptoms: denies: Suicidal Thoughts Involuntary Hold By: None Recent travel outside of the [place]: No Past Medical History Reviewed: Historical Data, Nursing Documentation, Vital Signs Vital Signs: Last Vital Signs Temp 98 F 12/14/17 20:29 Pulse 83 12/14/17 20:29 Resp 20 12/14/17 20:29 BP 128/72 12/14/17 20:29 Pulse Ox 96 12/15/17 00:55 - Medical History PMH: Anxiety, Arthritis, Bronchitis, CAD, Depression, Diabetes (Pt. did not disclose to program writer, not aware), Fractures (RIGHT ARM), Gastritis, Gall Bladder Disease (s/p cholecystectomy), HTN, Post Traumatic Stress Disorder, Rheumatoid Arthritis, Seizures, Chronic Pain Denies: Chronic Kidney Disease Surgical History: Cholecystectomy - [facility] Procedures ALCOHOL DETOXIFICATION (07/04/15) APPLICATION OF SPLINT (03/20/13) CLOSURE SKIN & SUBCUTANEOUS NEC (08/14/13) DETOXIFICATION SERVICES FOR SUBSTANCE ABUSE TREATMENT (03/22/16) ESOPHAGOGASTRODUODENOSCOPY [EGD] W/CLOSED BIOPSY (02/16/15) OTHER GROUP THERAPY (03/12/13) PHYSICAL THERAPY NEC (07/04/15) TETANUS TOXOID ADMINIST (01/19/14) Family History: States: Unknown Family Hx - Social History Hx Tobacco Use: No Hx Alcohol Use: Yes Hx Substance Use: No - Immunization History Hx Tetanus Toxoid Vaccination: No Hx Influenza Vaccination: No Hx Pneumococcal Vaccination: No Review Of Systems Constitutional: Negative for: Fever, Chills ENT: Negative for: Ear Pain, Throat Pain Cardiovascular: Negative for: Chest Pain Respiratory: Negative for: Cough, Shortness of Breath Gastrointestinal: Negative for: Nausea, Vomiting, Abdominal Pain, Diarrhea Skin: Negative for: Rash Neurological: Negative for: Headache Psych: Positive for: Other (Alcohol abuse). Negative for: Suicidal ideation Physical Exam - Physical Exam Appears: Non-toxic, No Acute Distress Skin: Warm, Dry Head: Normacephalic, Other (No evidence of trauma) Eye(s): bilateral: Normal Inspection Oral Mucosa: Moist, Other (Alcohol on breath) Neck: Trachea Midline, Supple Chest: Symmetrical Cardiovascular: Rhythm Regular (Rate Regular) Respiratory: No Rales, No Rhonchi, No Wheezing Gastrointestinal/Abdominal: Soft, No Tenderness Back: Normal Inspection Extremity: Normal ROM, Other (DP pulses 2+) Extremity: Bilateral: Atraumatic Neurological/Psych: Other (Sleeping but arousable to verbal stimuli ) ED Course And Treatment O2 Sat by Pulse Oximetry: 96 Pulse Ox Interpretation: Normal Reevaluation Time: 05:10 Reassessment Condition: Improved Disposition Counseled Patient/Family Regarding: Studies Performed, Diagnosis - Disposition Referrals: [facility] at [facility] [Outside] Disposition: HOME/ ROUTINE Disposition Time: 20:54 Condition: FAIR Instructions: Alcohol Abuse and Alcoholism (DC) Forms: [employer] (Latvian) - Clinical Impression Clinical Impression: Alcohol intoxication, Alcohol abuse, daily use - Scribe Statement The provider has reviewed the documentation as recorded by the Rominaibjosé miguel Sanchez Provider Attestation: All medical record entries made by the Scribe were at my direction and personally dictated by me. I have reviewed the chart and agree that the record accurately reflects my personal performance of the history, physical exam, medical decision making, and the department course for this patient. I have also personally directed, reviewed, and agree with the discharge instructions and disposition.
[2017-12-14 21:54] VITALS: RESP 20
[2017-12-15 06:46] VITALS: BP 130/80; PULSE 80; O2SAT 97
== END 2017-12-15 06:45 | disposition home or self-care (01) ==
LOC: C.ER 19:36
DX: F10.129 Alcohol abuse with intoxication, unspecified (principal); E11.9 Type 2 diabetes mellitus without complications; I25.10 Atherosclerotic heart disease of native coronary artery without angina pectoris

== ENCOUNTER 2017-12-15 20:08 | Emergency (ER) | payer OTHER ==
[2017-12-15 20:09] VITALS: BMI 29.7
--- NOTE | 2017-12-15 20:52 | C.PDOC ---
History Of Present Illness 57 year old male with hx of alcoholism presents to the ED for evaluation of acute alcohol intoxication. Patient is well known to ED staff and has had many visits for the same complaint. He has no new acute complaints at this time. Chief Complaint (Nursing): Substance Abuse History Per: Patient History/Exam Limitations: no limitations Onset/Duration Of Symptoms: Unknown Suicide/Self Injury Attempted (Context): None Modifying Factor(s): Alcohol Involuntary Hold By: None Recent travel outside of the [place]: No Past Medical History Reviewed: Historical Data, Nursing Documentation, Vital Signs Vital Signs: Last Vital Signs Temp 98.3 F 12/16/17 01:31 Pulse 72 12/16/17 01:31 Resp 18 12/16/17 01:31 BP 102/76 12/16/17 01:31 Pulse Ox 98 12/16/17 06:00 - Medical History PMH: Anxiety, Arthritis, Bronchitis, CAD, Depression, Diabetes (Pt. did not disclose to program writer, not aware), Fractures (RIGHT ARM), Gastritis, Gall Bladder Disease (s/p cholecystectomy), HTN, Post Traumatic Stress Disorder, Rheumatoid Arthritis, Seizures, Chronic Pain Denies: Chronic Kidney Disease Surgical History: Cholecystectomy - [facility] Procedures ALCOHOL DETOXIFICATION (07/04/15) APPLICATION OF SPLINT (03/20/13) CLOSURE SKIN & SUBCUTANEOUS NEC (08/14/13) DETOXIFICATION SERVICES FOR SUBSTANCE ABUSE TREATMENT (03/22/16) ESOPHAGOGASTRODUODENOSCOPY [EGD] W/CLOSED BIOPSY (02/16/15) OTHER GROUP THERAPY (03/12/13) PHYSICAL THERAPY NEC (07/04/15) TETANUS TOXOID ADMINIST (01/19/14) Family History: States: Unknown Family Hx - Social History Hx Tobacco Use: No Hx Alcohol Use: Yes Hx Substance Use: No - Immunization History Hx Tetanus Toxoid Vaccination: No Hx Influenza Vaccination: No Hx Pneumococcal Vaccination: No Review Of Systems Except As Marked, All Systems Reviewed And Found Negative. Constitutional: Negative for: Fever, Chills ENT: Negative for: Ear Pain, Throat Pain Cardiovascular: Negative for: Chest Pain Respiratory: Negative for: Cough, Shortness of Breath Gastrointestinal: Negative for: Nausea, Vomiting, Abdominal Pain, Diarrhea Skin: Negative for: Rash Neurological: Negative for: Headache Psych: Positive for: Other (Alcohol Abuse ) Physical Exam - Physical Exam Appears: Non-toxic, No Acute Distress, Unkempt Skin: Normal Color, Warm, Dry Head: Atraumatic, Normacephalic Eye(s): bilateral: Normal Inspection, PERRL, EOMI Oral Mucosa: Moist, Other (Alcohol on breath) Throat: Normal Neck: Normal, Normal ROM, Supple Chest: Symmetrical Cardiovascular: Rhythm Regular (Rate Regular) Respiratory: Normal Breath Sounds, No Rales, No Rhonchi, No Wheezing Gastrointestinal/Abdominal: Soft, No Tenderness Back: Normal Inspection Extremity: Normal ROM, No Deformity Extremity: Bilateral: Atraumatic Neurological/Psych: Oriented x3 Gait: Steady ED Course And Treatment O2 Sat by Pulse Oximetry: 98 Progress Note: Patient now awake and alert. Steady gait. Ready for discharge. Medical Decision Making Medical Decision Making: Impression: acute alcohol intoxication Plan: Will discharge pending sobriety. Disposition - Disposition Referrals: [facility] at [facility] [Outside] Disposition Time: 05:30 Condition: STABLE Instructions: Alcohol Abuse and Alcoholism (DC) Forms: [employer] (Guamanian) - POA Present On Arrival: None - Clinical Impression Clinical Impression: Alcohol abuse with intoxication, uncomplicated - Scribe Statement The provider has reviewed the documentation as recorded by the Scribe (Neftali Sanchez) Provider Attestation: All medical record entries made by the Scribe were at my direction and personally dictated by me. I have reviewed the chart and agree that the record accurately reflects my personal performance of the history, physical exam, medical decision making, and the department course for this patient. I have also personally directed, reviewed, and agree with the discharge instructions and disposition.
[2017-12-16 01:33] VITALS: RESP 18
[2017-12-16 06:00] VITALS: O2SAT 98
[2017-12-16 06:14] VITALS: BP 126/76; PULSE 74; TEMP 97
== END 2017-12-16 04:30 | disposition home or self-care (01) ==
LOC: C.ER 20:08
DX: F10.120 Alcohol abuse with intoxication, uncomplicated (principal); E11.9 Type 2 diabetes mellitus without complications; I25.10 Atherosclerotic heart disease of native coronary artery without angina pectoris

== ENCOUNTER 2017-12-16 19:03 | Emergency (ER) | payer OTHER ==
[2017-12-16 19:03] VITALS: BMI 29.7
--- NOTE | 2017-12-16 23:15 | C.PDOC ---
History Of Present Illness 57 year old male presents to the ED ambulatory on his own for evaluation of public intoxication. Patient is a local homeless alcoholic and is well known to ED staff. He offers no medical complain. Time Seen by Provider: 12/16/17 23:00 Chief Complaint (Nursing): Substance Abuse History Per: Patient History/Exam Limitations: no limitations Onset/Duration Of Symptoms: Persistent Modifying Factor(s): Alcohol Past Medical History Reviewed: Historical Data, Nursing Documentation, Vital Signs Vital Signs: Last Vital Signs Temp 97.9 F 12/16/17 19:33 Pulse 91 H 12/16/17 19:33 Resp 16 12/16/17 19:33 BP 136/85 12/16/17 19:33 Pulse Ox 98 12/16/17 23:15 - Medical History PMH: Anxiety, Arthritis, Bronchitis, CAD, Depression, 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), Fractures (RIGHT ARM), Gastritis, Gall Bladder Disease (s/p cholecystectomy), HTN, Post Traumatic Stress Disorder, Rheumatoid Arthritis, Seizures, Chronic Pain Denies: Chronic Kidney Disease Surgical History: Cholecystectomy - [facility] Procedures ALCOHOL DETOXIFICATION (07/04/15) APPLICATION OF SPLINT (03/20/13) CLOSURE SKIN & SUBCUTANEOUS NEC (08/14/13) DETOXIFICATION SERVICES FOR SUBSTANCE ABUSE TREATMENT (03/22/16) ESOPHAGOGASTRODUODENOSCOPY [EGD] W/CLOSED BIOPSY (02/16/15) OTHER GROUP THERAPY (03/12/13) PHYSICAL THERAPY NEC (07/04/15) TETANUS TOXOID ADMINIST (01/19/14) Family History: States: Unknown Family Hx - Social History Hx Tobacco Use: No Hx Alcohol Use: Yes Hx Substance Use: No - Immunization History Hx Tetanus Toxoid Vaccination: No Hx Influenza Vaccination: No Hx Pneumococcal Vaccination: No Review Of Systems Except As Marked, All Systems Reviewed And Found Negative. Psych: Positive for: Other (alcohol use) Physical Exam - Physical Exam Appears: No Acute Distress Skin: Normal Color Head: Normacephalic Neck: Supple Cardiovascular: Rhythm Regular Respiratory: Normal Breath Sounds Neurological/Psych: Oriented x3 Gait: Steady ED Course And Treatment O2 Sat by Pulse Oximetry: 98 (RA) Pulse Ox Interpretation: Normal Medical Decision Making Medical Decision Making: Plan: -- Patient awake, alert and oriented x3 with steady gait. Stable for discharge home. Disposition - Disposition Referrals: [facility] [Outside] Disposition: HOME/ ROUTINE Disposition Time: 23:12 Condition: FAIR Instructions: Effects of Alcohol on Your Health Forms: [facility] (Vietnamese) - Clinical Impression Clinical Impression: Alcohol intoxication, Homeless single person - Scribe Statement The provider has reviewed the documentation as recorded by the Scribe (Val Estrada) Provider Attestation: All medical record entries made by the Scribe were at my direction and personally dictated by me. I have reviewed the chart and agree that the record accurately reflects my personal performance of the history, physical exam, medical decision making, and the department course for this patient. I have also personally directed, reviewed, and agree with the discharge instructions and disposition.
[2017-12-16 23:36] VITALS: BP 117/80; PULSE 84; RESP 20; TEMP 97.8
[2017-12-17 04:30] VITALS: O2SAT 98
== END 2017-12-16 23:36 | disposition home or self-care (01) ==
LOC: C.ER 19:03
DX: F10.129 Alcohol abuse with intoxication, unspecified (principal); Y90.9 Presence of alcohol in blood, level not specified; Z59.0 Homelessness

== ENCOUNTER 2017-12-17 23:00 | Emergency (ER) | payer OTHER ==
[2017-12-17 23:00] VITALS: BMI 29.7
--- NOTE | 2017-12-17 23:32 | C.PDOC ---
History Of Present Illness Patient presents to the ER via EMS after being found intoxicated in public. Denies physical complaints at this time. Time Seen by Provider: 12/17/17 23:30 Chief Complaint (Nursing): Substance Abuse History Per: Patient, EMS History/Exam Limitations: no limitations Onset/Duration Of Symptoms: Hrs Current Symptoms Are (Timing): Still Present Suicide/Self Injury Attempted (Context): None Modifying Factor(s): Alcohol Severity: None Pain Scale Rating Of: 0 Associated Symptoms: denies: Depression, Suicidal Thoughts Involuntary Hold By: None Recent travel outside of the [place]: No Past Medical History Reviewed: Historical Data, Nursing Documentation, Vital Signs Vital Signs: Last Vital Signs Temp 98 F 12/18/17 03:06 Pulse 82 12/18/17 03:06 Resp 20 12/18/17 03:06 BP 133/81 12/18/17 03:06 Pulse Ox 98 12/18/17 03:06 - Medical History PMH: Anxiety, Arthritis, Bronchitis, CAD, Depression, Diabetes (Pt. did not disclose to film writer, not aware), Fractures (RIGHT ARM), Gastritis, Gall Bladder Disease (s/p cholecystectomy), HTN, Post Traumatic Stress Disorder, Rheumatoid Arthritis, Seizures, Chronic Pain Surgical History: Cholecystectomy - [facility] Procedures ALCOHOL DETOXIFICATION (07/04/15) APPLICATION OF SPLINT (03/20/13) CLOSURE SKIN & SUBCUTANEOUS NEC (08/14/13) DETOXIFICATION SERVICES FOR SUBSTANCE ABUSE TREATMENT (03/22/16) ESOPHAGOGASTRODUODENOSCOPY [EGD] W/CLOSED BIOPSY (02/16/15) OTHER GROUP THERAPY (03/12/13) PHYSICAL THERAPY NEC (07/04/15) TETANUS TOXOID ADMINIST (01/19/14) Family History: States: No Known Family Hx - Social History Hx Tobacco Use: No Hx Alcohol Use: Yes Hx Substance Use: No - Immunization History Hx Tetanus Toxoid Vaccination: No Hx Influenza Vaccination: No Hx Pneumococcal Vaccination: No Review Of Systems Constitutional: Negative for: Fever, Chills Respiratory: Negative for: Cough Gastrointestinal: Negative for: Nausea, Vomiting, Diarrhea Physical Exam - Physical Exam Appears: Non-toxic, Other (ETOH on breath, no sign of injury) Skin: Warm, Dry Head: Normacephalic Oral Mucosa: Moist Chest: Symmetrical, No Tenderness Cardiovascular: Rhythm Regular Respiratory: No Rales, No Rhonchi, No Wheezing Gastrointestinal/Abdominal: Soft, No Tenderness Neurological/Psych: Oriented x3 ED Course And Treatment O2 Sat by Pulse Oximetry: 98 Pulse Ox Interpretation: Normal Disposition Counseled Patient/Family Regarding: Studies Performed, Diagnosis, Need For Followup - Disposition Referrals: [facility] at [facility] [Outside] Disposition: HOME/ ROUTINE Disposition Time: 23:31 Condition: FAIR Instructions: Alcohol Abuse and Alcoholism (DC) Forms: Mobile Location, IP (Czech) - Clinical Impression Clinical Impression: Alcohol intoxication, Chronic alcoholism - Scribe Statement The provider has reviewed the documentation as recorded by the Scribjosé miguel Ramirez All medical record entries made by the Scribe were at my direction and personally dictated by me. I have reviewed the chart and agree that the record accurately reflects my personal performance of the history, physical exam, medical decision making, and the department course for this patient. I have also personally directed, reviewed, and agree with the discharge instructions and disposition.
[2017-12-18 03:07] VITALS: RESP 20
[2017-12-18 06:15] VITALS: BP 136/73; PULSE 79; TEMP 97.8; O2SAT 99
== END 2017-12-18 06:33 | disposition home or self-care (01) ==
LOC: C.ER 23:00
DX: F10.229 Alcohol dependence with intoxication, unspecified (principal); E11.9 Type 2 diabetes mellitus without complications; I25.10 Atherosclerotic heart disease of native coronary artery without angina pectoris

== ENCOUNTER 2017-12-18 20:13 | Emergency (ER) | payer OTHER ==
[2017-12-18 20:14] VITALS: BMI 29.7
[2017-12-18 20:59] VITALS: O2SAT 97
--- NOTE | 2017-12-18 21:33 | C.PDOC ---
History Of Present Illness Patient presents to the ER via EMS after being found intoxicated in public. Denies physical complaints at this time. He admits to drinking alcohol prior to arrival. Time Seen by Provider: 12/18/17 21:31 Chief Complaint (Nursing): Substance Abuse History Per: Patient, EMS History/Exam Limitations: no limitations Onset/Duration Of Symptoms: Persistent Current Symptoms Are (Timing): Still Present Modifying Factor(s): Alcohol Past Medical History Reviewed: Historical Data, Nursing Documentation, Vital Signs Vital Signs: Last Vital Signs Temp 97.8 F 12/18/17 20:55 Pulse 100 H 12/18/17 20:55 Resp 18 12/18/17 20:55 BP 120/82 12/18/17 20:55 Pulse Ox 97 12/18/17 21:53 - Medical History PMH: Anxiety, Arthritis, Bronchitis, CAD, Depression, Diabetes (Pt. 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, not aware), Fractures (RIGHT ARM), Gastritis, Gall Bladder Disease (s/p cholecystectomy), HTN, Post Traumatic Stress Disorder, Rheumatoid Arthritis, Seizures, Chronic Pain Denies: Chronic Kidney Disease Surgical History: Cholecystectomy - [facility] Procedures ALCOHOL DETOXIFICATION (07/04/15) APPLICATION OF SPLINT (03/20/13) CLOSURE SKIN & SUBCUTANEOUS NEC (08/14/13) DETOXIFICATION SERVICES FOR SUBSTANCE ABUSE TREATMENT (03/22/16) ESOPHAGOGASTRODUODENOSCOPY [EGD] W/CLOSED BIOPSY (02/16/15) OTHER GROUP THERAPY (03/12/13) PHYSICAL THERAPY NEC (07/04/15) TETANUS TOXOID ADMINIST (01/19/14) Family History: States: Unknown Family Hx - Social History Hx Tobacco Use: No Hx Alcohol Use: Yes Hx Substance Use: No - Immunization History Hx Tetanus Toxoid Vaccination: No Hx Influenza Vaccination: No Hx Pneumococcal Vaccination: No Review Of Systems Constitutional: Negative for: Fever, Chills Cardiovascular: Negative for: Chest Pain Respiratory: Negative for: Shortness of Breath Physical Exam - Physical Exam Appears: No Acute Distress Skin: Warm Head: Normacephalic Oral Mucosa: Moist, Other (alcohol on breath) Neck: Supple Chest: Symmetrical Cardiovascular: Rhythm Regular Respiratory: No Rales, No Rhonchi, No Wheezing Neurological/Psych: Oriented x3 ED Course And Treatment O2 Sat by Pulse Oximetry: 97 (RA) Pulse Ox Interpretation: Normal Reevaluation Time: 05:27 Reassessment Condition: Improved Disposition Counseled Patient/Family Regarding: Studies Performed, Diagnosis, Need For Followup - Disposition Referrals: [facility] at [facility] [Outside] Disposition: HOME/ ROUTINE Disposition Time: 21:32 Condition: FAIR Instructions: Alcohol Abuse and Alcoholism (DC) Forms: [employer] (Pakistani) - Clinical Impression Clinical Impression: Alcohol intoxication, Alcohol abuse - Scribe Statement The provider has reviewed the documentation as recorded by the Scribe (Val Estrada) Provider Attestation: All medical record entries made by the Scribe were at my direction and personally dictated by me. I have reviewed the chart and agree that the record accurately reflects my personal performance of the history, physical exam, medical decision making, and the department course for this patient. I have also personally directed, reviewed, and agree with the discharge instructions and disposition.
[2017-12-19 06:11] VITALS: BP 118/71; PULSE 81; RESP 20; TEMP 98
== END 2017-12-19 05:10 | disposition home or self-care (01) ==
LOC: C.ER 20:13
DX: F10.129 Alcohol abuse with intoxication, unspecified (principal); E11.9 Type 2 diabetes mellitus without complications; I25.10 Atherosclerotic heart disease of native coronary artery without angina pectoris

== ENCOUNTER 2017-12-19 20:38 | Emergency (ER) | payer OTHER ==
[2017-12-19 20:38] VITALS: BMI 29.7
[2017-12-19 21:07] VITALS: BP 163/80; PULSE 106; RESP 20; TEMP 98.7; O2SAT 95
--- NOTE | 2017-12-19 21:09 | C.PDOC ---
History Of Present Illness 57 yr old male presents to the ER with alcohol intoxication. Patient is a regular at [facility] for alcohol abuse, seeking group home for the night. Initially , patient reported of abdominal pain but upon my examination patient denied abdominal pain. Patient is at baseline, denies SI, HI or any other physical complaints. Time Seen by Provider: 12/19/17 21:03 Chief Complaint (Nursing): Abdominal Pain History Per: Patient History/Exam Limitations: no limitations Onset/Duration Of Symptoms: Days Past Medical History Reviewed: Historical Data, Nursing Documentation, Vital Signs Vital Signs: Last Vital Signs Temp 98.7 F 12/19/17 21:06 Pulse 106 H 12/19/17 21:06 Resp 20 12/19/17 21:06 BP 163/80 H 12/19/17 21:06 Pulse Ox 95 12/19/17 21:09 - Medical History PMH: Anxiety, Arthritis, Bronchitis, CAD, Depression, Diabetes (Pt. did not disclose to speech writer, not aware), Fractures (RIGHT ARM), Gastritis, Gall Bladder Disease (s/p cholecystectomy), HTN, Post Traumatic Stress Disorder, Rheumatoid Arthritis, Seizures, Chronic Pain Surgical History: Cholecystectomy - [facility] Procedures ALCOHOL DETOXIFICATION (07/04/15) APPLICATION OF SPLINT (03/20/13) CLOSURE SKIN & SUBCUTANEOUS NEC (08/14/13) DETOXIFICATION SERVICES FOR SUBSTANCE ABUSE TREATMENT (03/22/16) ESOPHAGOGASTRODUODENOSCOPY [EGD] W/CLOSED BIOPSY (02/16/15) OTHER GROUP THERAPY (03/12/13) PHYSICAL THERAPY NEC (07/04/15) TETANUS TOXOID ADMINIST (01/19/14) Family History: States: No Known Family Hx - Social History Hx Tobacco Use: No Hx Alcohol Use: Yes Hx Substance Use: No - Immunization History Hx Tetanus Toxoid Vaccination: No Hx Influenza Vaccination: No Hx Pneumococcal Vaccination: No Review Of Systems Except As Marked, All Systems Reviewed And Found Negative. Constitutional: Negative for: Fever Gastrointestinal: Negative for: Nausea, Vomiting Psych: Negative for: Suicidal ideation Physical Exam - Physical Exam Appears: Non-toxic Skin: Warm, Dry Oral Mucosa: Moist Respiratory: Normal Breath Sounds Gastrointestinal/Abdominal: Normal Exam, Soft, No Tenderness, No Guarding, No Rebound Extremity: Normal ROM, No Swelling Neurological/Psych: Oriented x3, Normal Speech ED Course And Treatment O2 Sat by Pulse Oximetry: 95 (RA) Pulse Ox Interpretation: Normal Medical Decision Making Medical Decision Making: typical though mild etoh abuse today no belly pain complaint Malingering warm enough outside to discharge safely. Disposition Doctor Will See Patient In The: Office Counseled Patient/Family Regarding: Studies Performed, Diagnosis - Disposition Referrals: Alcoholics Anonymous [Outside] [facility] [Outside] [facility] [Outside] [facility] [Outside] Disposition: HOME/ ROUTINE Disposition Time: 21:08 Condition: GOOD Additional Instructions: seek nightly group home placement Instructions: Alcohol Abuse and Alcoholism (DC), Drug Abuse Treatment Forms: [employer] (Sami) - Clinical Impression Clinical Impression: Alcohol abuse, Alcohol abuse, daily use - Scribe Statement The provider has reviewed the documentation as recorded by the Scribe Lissett Alves Provider Attestation: All medical record entries made by the Scribe were at my direction and personally dictated by me. I have reviewed the chart and agree that the record accurately reflects my personal performance of the history, physical exam, medical decision making, and the department course for this patient. I have also personally directed, reviewed, and agree with the discharge instructions and disposition.
== END 2017-12-19 21:31 | disposition home or self-care (01) ==
LOC: C.ER 20:38
DX: F10.10 Alcohol abuse, uncomplicated (principal); Y90.9 Presence of alcohol in blood, level not specified

== ENCOUNTER 2017-12-20 21:23 | Emergency (ER) | payer OTHER ==
[2017-12-20 21:23] VITALS: BMI 29.7
--- NOTE | 2017-12-20 22:08 | C.PDOC ---
History Of Present Illness 57 y/o male brought himself to ER for intoxication. Patient is requesting alcohol detox. He was not allowed to stay in ER last night. Patient states he slept in a doorway. He admits to drinking 1-2 pins of vodka a day. Patient has been to detox before. He has an estimate of 1200 ER visits for intoxication since 2010. Denies any physical complaints. Time Seen by Provider: 12/20/17 21:44 Chief Complaint (Nursing): Substance Abuse History Per: Patient History/Exam Limitations: no limitations Onset/Duration Of Symptoms: Hrs Current Symptoms Are (Timing): Still Present Suicide/Self Injury Attempted (Context): None Modifying Factor(s): Alcohol Involuntary Hold By: None Recent travel outside of the [place]: No Past Medical History Reviewed: Historical Data, Nursing Documentation, Vital Signs Vital Signs: Last Vital Signs Temp 98 F 12/20/17 21:40 Pulse 88 12/20/17 21:40 Resp 18 12/20/17 21:40 BP 148/98 H 12/20/17 21:40 Pulse Ox 99 12/20/17 22:11 - Medical History PMH: Anxiety, Arthritis, Bronchitis, CAD, Depression, Diabetes (Pt. did not disclose to insurance underwriter sales, not aware), Fractures (RIGHT ARM), Gastritis, Gall Bladder Disease (s/p cholecystectomy), HTN, Post Traumatic Stress Disorder, Rheumatoid Arthritis, Seizures, Chronic Pain Surgical History: Cholecystectomy - [facility] Procedures ALCOHOL DETOXIFICATION (07/04/15) APPLICATION OF SPLINT (03/20/13) CLOSURE SKIN & SUBCUTANEOUS NEC (08/14/13) DETOXIFICATION SERVICES FOR SUBSTANCE ABUSE TREATMENT (03/22/16) ESOPHAGOGASTRODUODENOSCOPY [EGD] W/CLOSED BIOPSY (02/16/15) OTHER GROUP THERAPY (03/12/13) PHYSICAL THERAPY NEC (07/04/15) TETANUS TOXOID ADMINIST (01/19/14) Family History: States: Unknown Family Hx - Social History Hx Tobacco Use: No Hx Alcohol Use: Yes Hx Substance Use: No - Immunization History Hx Tetanus Toxoid Vaccination: No Hx Influenza Vaccination: No Hx Pneumococcal Vaccination: No Review Of Systems Constitutional: Negative for: Fever, Chills Cardiovascular: Negative for: Chest Pain, Palpitations Respiratory: Negative for: Shortness of Breath Gastrointestinal: Negative for: Nausea, Vomiting, Abdominal Pain, Diarrhea Neurological: Negative for: Weakness, Numbness Psych: Negative for: Suicidal ideation Physical Exam - Physical Exam Appears: Well, Non-toxic, No Acute Distress Skin: Normal Color, Warm, Dry Head: Atraumatic, Normacephalic Eye(s): bilateral: Normal Inspection Oral Mucosa: Moist Neck: Supple Chest: Symmetrical, No Tenderness Cardiovascular: Rhythm Regular Respiratory: Normal Breath Sounds, No Decreased Breath Sounds, No Rales, No Rhonchi, No Wheezing Gastrointestinal/Abdominal: Soft, No Tenderness, No Distention, No Guarding, No Rebound Neurological/Psych: Oriented x3, Normal Speech, Normal Cognition ED Course And Treatment - Laboratory Results Result Diagrams: 12/20/17 22:12 12/20/17 22:12 Lab Interpretation: Abnormal (etoh 253 H, tox neg.) O2 Sat by Pulse Oximetry: 99 (RA) Pulse Ox Interpretation: Normal Progress Note: 2300: d/w Crisis, pt declined detox, explained as relative to prior inpt evals. Medical Decision Making Medical Decision Making: Ordered blood work and urinalysis. 2330: continued alcoholism, declined detox Disposition - Disposition Referrals: Non [facility] Provider, [Primary Care Provider] - Disposition Time: 01:00 Condition: GOOD Forms: [facility] (Bruneian) - Clinical Impression Clinical Impression: Alcohol intoxication - Scribe Statement The provider has reviewed the documentation as recorded by the Scribjosé miguel Rosales All medical record entries made by the Scribe were at my direction and personally dictated by me. I have reviewed the chart and agree that the record accurately reflects my personal performance of the history, physical exam, medical decision making, and the department course for this patient. I have also personally directed, reviewed, and agree with the discharge instructions and disposition.
[2017-12-20 22:14] LABS: BASO % 0.5 % (0.0-2.0); EOS % 0.4 % (0.0-4.0); LYMPH # 1.5 K/uL (1.0-4.3); LYMPH % 22.3 % (20.0-40.0); MEAN CELL VOLUME 103.1 fL (80.0-94.0); MEAN CORPUSCULAR HEMOGLOBIN 35.1 pg (27.0-31.0); MEAN CORPUSCULAR HGB CONC 34.1 g/dL (33.0-37.0); MEAN PLATELET VOLUME 8.8 fL (7.2-11.7); MONO # 1.2 K/uL (0.0-0.8); MONO % 18.4 % (0.0-10.0); NEUT # 3.9 K/uL (1.8-7.0); NEUT % 58.4 % (50.0-75.0); NRBC % 0.2 % (0.0-2.0); RBC 3.43 Mil/uL (4.40-5.90); RED CELL DISTRIBUTION WIDTH 15.1 % (11.5-14.5); WHITE BLOOD COUNT 6.6 K/uL (4.8-10.8)
[2017-12-20 22:27] LABS: ALB/GLOB RATIO 0.7 (1.0-2.1); ALBUMIN 3.9 g/dL (3.5-5.0); ALT/SGPT 23 U/L (21-72); AST/SGOT 140 U/L (17-59); BLOOD UREA NITROGEN 10 mg/dL (9-20); CALCIUM 9.1 mg/dl (8.6-10.4); GFR AFRICAN-AMERICAN > 60; GFR NON-AFRICAN AMERICAN > 60
[2017-12-21 05:36] VITALS: BP 149/70; PULSE 78; RESP 20; TEMP 97.6; O2SAT 98
== END 2017-12-21 05:36 | disposition home or self-care (01) ==
LOC: C.ER 21:23 → SUPCPDRO 21:23 → C.ER 12-21 05:36
DX: F10.129 Alcohol abuse with intoxication, unspecified (principal); Y90.8 Blood alcohol level of 240 mg/100 ml or more; I10 Essential (primary) hypertension

== ENCOUNTER 2017-12-21 21:18 | Emergency (ER) | payer OTHER ==
[2017-12-21 21:18] VITALS: BMI 29.7
--- NOTE | 2017-12-21 21:46 | C.PDOC ---
History Of Present Illness Patient, who is well-known to ED, presents to the ED for ETOH abuse and looking for a place to stay. Patient is currently asymptomatic with no distress. Time Seen by Provider: 12/21/17 21:45 History Per: Patient History/Exam Limitations: no limitations Onset/Duration Of Symptoms: Hrs Current Symptoms Are (Timing): Still Present Modifying Factor(s): Alcohol Involuntary Hold By: None Past Medical History Reviewed: Historical Data, Nursing Documentation, Vital Signs Vital Signs: Last Vital Signs Temp 97.6 F 12/21/17 21:52 Pulse 97 H 12/21/17 21:52 Resp 18 12/21/17 21:52 BP 121/76 12/21/17 21:52 Pulse Ox 97 12/21/17 21:52 - Medical History PMH: Anxiety, Arthritis, Bronchitis, CAD, Depression, Diabetes (Pt. did not disclose to procedure writer, not aware), Fractures (RIGHT ARM), Gastritis, Gall Bladder Disease (s/p cholecystectomy), HTN, Post Traumatic Stress Disorder, Rheumatoid Arthritis, Seizures, Chronic Pain Denies: Chronic Kidney Disease Surgical History: Cholecystectomy - [facility] Procedures ALCOHOL DETOXIFICATION (07/04/15) APPLICATION OF SPLINT (03/20/13) CLOSURE SKIN & SUBCUTANEOUS NEC (08/14/13) DETOXIFICATION SERVICES FOR SUBSTANCE ABUSE TREATMENT (03/22/16) ESOPHAGOGASTRODUODENOSCOPY [EGD] W/CLOSED BIOPSY (02/16/15) OTHER GROUP THERAPY (03/12/13) PHYSICAL THERAPY NEC (07/04/15) TETANUS TOXOID ADMINIST (01/19/14) Family History: States: Unknown Family Hx - Social History Hx Tobacco Use: No Hx Alcohol Use: Yes Hx Substance Use: No - Immunization History Hx Tetanus Toxoid Vaccination: No Hx Influenza Vaccination: No Hx Pneumococcal Vaccination: No Review Of Systems Constitutional: Negative for: Fever Cardiovascular: Negative for: Chest Pain Respiratory: Negative for: Shortness of Breath Gastrointestinal: Negative for: Abdominal Pain Genitourinary: Negative for: Dysuria Musculoskeletal: Negative for: Neck Pain Neurological: Negative for: Numbness Psych: Positive for: Other (ETOH abuse) Physical Exam - Physical Exam Appears: Toxic, No Acute Distress Skin: Warm, Dry Head: Normacephalic Eye(s): bilateral: Normal Inspection Neck: Supple Cardiovascular: Rhythm Regular, No Murmur Respiratory: No Rales, No Rhonchi, No Wheezing Gastrointestinal/Abdominal: Bowel Sounds (active) Extremity: Normal ROM Neurological/Psych: Oriented x3, Normal Sensation Gait: Steady ED Course And Treatment O2 Sat by Pulse Oximetry: 97 Pulse Ox Interpretation: Normal Reevaluation Time: 06:14 Reassessment Condition: Improved Disposition Counseled Patient/Family Regarding: Studies Performed, Diagnosis, Need For Followup - Disposition Referrals: at [facility] [Outside] Disposition: HOME/ ROUTINE Disposition Time: 21:45 Condition: FAIR Instructions: Alcohol Abuse and Alcoholism (DC) - Clinical Impression Clinical Impression: Alcohol intoxication, Alcohol abuse - Scribe Statement The provider has reviewed the documentation as recorded by the Scribe Scribe Attestation: Keturah Quick MD Scribe Attestation: All medical record entries made by the Scribe were at my direction and personally dictated by me. I have reviewed the chart and agree that the record accurately reflects my personal performance of the history, physical exam, medical decision making, and the department course for this patient. I have also personally directed, reviewed, and agree with the discharge instructions and disposition.
[2017-12-21 21:53] VITALS: O2SAT 97
[2017-12-22 06:15] VITALS: BP 122/75; PULSE 90; RESP 20; TEMP 97.7
== END 2017-12-22 06:16 | disposition home or self-care (01) ==
LOC: C.ER 21:18
DX: F10.129 Alcohol abuse with intoxication, unspecified (principal); Y90.9 Presence of alcohol in blood, level not specified

== ENCOUNTER 2017-12-22 18:48 | Emergency (ER) | payer OTHER ==
[2017-12-22 18:48] VITALS: BMI 29.7
--- NOTE | 2017-12-22 19:31 | C.PDOC ---
History Of Present Illness 57 yr old male presents to the ER for alcohol intoxication. Patient is very well known to the ER for multiple visit to the ER for alcohol intoxication in the same day. Denies any physical complaints. Time Seen by Provider: 12/22/17 19:28 History Per: Patient History/Exam Limitations: intoxication Onset/Duration Of Symptoms: Persistent Modifying Factor(s): Alcohol Past Medical History Reviewed: Historical Data, Nursing Documentation, Vital Signs Vital Signs: Last Vital Signs Temp 98.2 F 12/22/17 19:42 Pulse 91 H 12/22/17 19:42 Resp 18 12/22/17 19:42 BP Pulse Ox 96 12/22/17 19:42 - Medical History PMH: Anxiety, Arthritis, Bronchitis, CAD, Depression, Diabetes (Pt. did not disclose to science writer, not aware), Fractures (RIGHT ARM), Gastritis, Gall Bladder Disease (s/p cholecystectomy), HTN, Post Traumatic Stress Disorder, Rheumatoid Arthritis, Seizures, Chronic Pain Surgical History: Cholecystectomy - [facility] Procedures ALCOHOL DETOXIFICATION (07/04/15) APPLICATION OF SPLINT (03/20/13) CLOSURE SKIN & SUBCUTANEOUS NEC (08/14/13) DETOXIFICATION SERVICES FOR SUBSTANCE ABUSE TREATMENT (03/22/16) ESOPHAGOGASTRODUODENOSCOPY [EGD] W/CLOSED BIOPSY (02/16/15) OTHER GROUP THERAPY (03/12/13) PHYSICAL THERAPY NEC (07/04/15) TETANUS TOXOID ADMINIST (01/19/14) Family History: States: No Known Family Hx - Social History Hx Tobacco Use: No Hx Alcohol Use: Yes Hx Substance Use: No - Immunization History Hx Tetanus Toxoid Vaccination: No Hx Influenza Vaccination: No Hx Pneumococcal Vaccination: No Review Of Systems Except As Marked, All Systems Reviewed And Found Negative. Constitutional: Negative for: Fever Gastrointestinal: Negative for: Nausea, Vomiting Physical Exam - Physical Exam Appears: Non-toxic, No Acute Distress, Other (intoxication) Skin: Warm, Dry, No Rash Oral Mucosa: Moist Cardiovascular: No Murmur Respiratory: No Rales, No Rhonchi, No Stridor, No Wheezing Extremity: No Swelling Neurological/Psych: Other (intoxicated, sleeping but arousable to stimuli) ED Course And Treatment O2 Sat by Pulse Oximetry: 96 Pulse Ox Interpretation: Normal Reevaluation Time: 05:17 Reassessment Condition: Improved Disposition Counseled Patient/Family Regarding: Studies Performed, Diagnosis, Need For Followup - Disposition Referrals: [facility] [Outside] Disposition: HOME/ ROUTINE Disposition Time: 19:29 Condition: FAIR Instructions: Alcohol Abuse and Alcoholism (DC) - Clinical Impression Clinical Impression: Alcohol intoxication, Alcohol abuse - Scribe Statement The provider has reviewed the documentation as recorded by the Rominaibe Lissett Alves Provider Attestation: All medical record entries made by the Rominaibe were at my direction and personally dictated by me. I have reviewed the chart and agree that the record accurately reflects my personal performance of the history, physical exam, medical decision making, and the department course for this patient. I have also personally directed, reviewed, and agree with the discharge instructions and disposition.
[2017-12-22 19:47] VITALS: O2SAT 96
[2017-12-23 05:29] VITALS: BP 118/66; PULSE 100; RESP 20; TEMP 98.7
== END 2017-12-23 05:36 | disposition home or self-care (01) ==
LOC: C.ER 18:48
DX: F10.129 Alcohol abuse with intoxication, unspecified (principal); Y90.9 Presence of alcohol in blood, level not specified

== ENCOUNTER 2017-12-23 20:42 | Emergency (ER) | payer OTHER ==
[2017-12-23 20:43] VITALS: BMI 29.7
[2017-12-23 21:16] VITALS: TEMP 98.3; O2SAT 98
--- NOTE | 2017-12-23 21:56 | C.PDOC ---
History Of Present Illness 57 year old male presents to the ER requesting a place to stay the night. Patient has nightly stays in the ER, he requested detox 3 nights ago but was declined. When he is not here patient has a safe place to go home to. Denies physical complaints at this time. Time Seen by Provider: 12/23/17 21:16 Chief Complaint (Nursing): Substance Abuse History Per: Patient History/Exam Limitations: no limitations Suicide/Self Injury Attempted (Context): None Associated Symptoms: denies: Depression, Suicidal Thoughts Involuntary Hold By: None Recent travel outside of the [place]: No Past Medical History Reviewed: Historical Data, Nursing Documentation, Vital Signs Vital Signs: Last Vital Signs Temp 98.3 F 12/23/17 22:18 Pulse 92 H 12/23/17 22:18 Resp 22 12/23/17 22:18 BP 145/92 H 12/23/17 22:18 Pulse Ox 98 12/23/17 22:18 - Medical History PMH: Anxiety, Arthritis, Bronchitis, CAD, Depression, Diabetes (Pt. did not disclose to technical report writer, not aware), Fractures (RIGHT ARM), Gastritis, Gall Bladder Disease (s/p cholecystectomy), HTN, Post Traumatic Stress Disorder, Rheumatoid Arthritis, Seizures, Chronic Pain Surgical History: Cholecystectomy - [facility] Procedures ALCOHOL DETOXIFICATION (07/04/15) APPLICATION OF SPLINT (03/20/13) CLOSURE SKIN & SUBCUTANEOUS NEC (08/14/13) DETOXIFICATION SERVICES FOR SUBSTANCE ABUSE TREATMENT (03/22/16) ESOPHAGOGASTRODUODENOSCOPY [EGD] W/CLOSED BIOPSY (02/16/15) OTHER GROUP THERAPY (03/12/13) PHYSICAL THERAPY NEC (07/04/15) TETANUS TOXOID ADMINIST (01/19/14) Family History: States: Unknown Family Hx - Social History Hx Tobacco Use: No Hx Alcohol Use: Yes Hx Substance Use: No - Immunization History Hx Tetanus Toxoid Vaccination: No Hx Influenza Vaccination: No Hx Pneumococcal Vaccination: No Review Of Systems Constitutional: Negative for: Fever, Chills Cardiovascular: Negative for: Chest Pain, Palpitations Respiratory: Negative for: Shortness of Breath Gastrointestinal: Negative for: Nausea, Vomiting, Abdominal Pain Neurological: Negative for: Weakness, Numbness Physical Exam - Physical Exam Appears: Non-toxic, No Acute Distress, Other (No signs of injury) Skin: Normal Color, Warm, Dry Head: Atraumatic, Normacephalic Eye(s): bilateral: Normal Inspection Nose: Normal Oral Mucosa: Moist Neck: Normal, Supple Chest: Symmetrical, No Tenderness Cardiovascular: Rhythm Regular Respiratory: Normal Breath Sounds, No Rales, No Rhonchi, No Wheezing Gastrointestinal/Abdominal: Soft, No Tenderness Extremity: Normal ROM (x4) Neurological/Psych: Oriented x3, Normal Speech Gait: Steady ED Course And Treatment O2 Sat by Pulse Oximetry: 98 (Room air) Pulse Ox Interpretation: Normal Medical Decision Making Medical Decision Making: typical malingering over 1400 ED visits for same. alert and oriented, walked into ED Explained he may not stay in ED overnight for non-emergent issues- verbalized understanding. Disposition Doctor Will See Patient In The: Office Counseled Patient/Family Regarding: Studies Performed, Diagnosis - Disposition Referrals: Alcoholics Anonymous [Outside] [facility] [Outside] [facility] [Outside] [facility] [Outside] Disposition: HOME/ ROUTINE Disposition Time: 21:56 Condition: GOOD Additional Instructions: you have been declined for inpatient detox Seek nightly housing/fdc placement Seek Alcoholics Anonymous- they are very helpful Seek outpatient psych resources outlined below. Instructions: Alcohol Use - When Is Drinking a Problem? Forms: [facility] (Bulgarian) - Clinical Impression Clinical Impression: Chronic alcoholism - Scribe Statement The provider has reviewed the documentation as recorded by the Scribjosé miguel Ramirez All medical record entries made by the Scribe were at my direction and personally dictated by me. I have reviewed the chart and agree that the record accurately reflects my personal performance of the history, physical exam, medical decision making, and the department course for this patient. I have also personally directed, reviewed, and agree with the discharge instructions and disposition.
[2017-12-23 22:28] VITALS: BP 145/92; PULSE 92; RESP 22
== END 2017-12-23 22:18 | disposition home or self-care (01) ==
LOC: C.ER 20:42
DX: F10.229 Alcohol dependence with intoxication, unspecified (principal); Y90.9 Presence of alcohol in blood, level not specified

== ENCOUNTER 2017-12-24 22:10 | Emergency (ER) | payer OTHER ==
[2017-12-24 22:11] VITALS: BMI 29.7
[2017-12-24 22:14] VITALS: O2SAT 97
--- NOTE | 2017-12-24 22:14 | C.PDOC ---
History Of Present Illness 57 year old male presents to the ER with acute ETOH intoxication, requesting a place to spend the night. Denies physical complaints at this time. Time Seen by Provider: 12/24/17 22:14 Chief Complaint (Nursing): Substance Abuse History Per: Patient History/Exam Limitations: no limitations Onset/Duration Of Symptoms: Hrs Current Symptoms Are (Timing): Still Present Suicide/Self Injury Attempted (Context): None Modifying Factor(s): Alcohol Associated Symptoms: denies: Depression, Suicidal Thoughts Involuntary Hold By: None Recent travel outside of the [place]: No Past Medical History Reviewed: Historical Data, Nursing Documentation, Vital Signs Vital Signs: Last Vital Signs Temp 97.5 F L 12/24/17 22:11 Pulse 84 12/25/17 00:45 Resp 18 12/25/17 00:45 BP 126/84 12/25/17 00:45 Pulse Ox 97 12/25/17 00:45 - Medical History PMH: Anxiety, Arthritis, Bronchitis, CAD, Depression, Diabetes (Pt. did not disclose to senior underwriter, not aware), Fractures (RIGHT ARM), Gastritis, Gall Bladder Disease (s/p cholecystectomy), HTN, Post Traumatic Stress Disorder, Rheumatoid Arthritis, Seizures, Chronic Pain Surgical History: Cholecystectomy - [facility] Procedures ALCOHOL DETOXIFICATION (07/04/15) APPLICATION OF SPLINT (03/20/13) CLOSURE SKIN & SUBCUTANEOUS NEC (08/14/13) DETOXIFICATION SERVICES FOR SUBSTANCE ABUSE TREATMENT (03/22/16) ESOPHAGOGASTRODUODENOSCOPY [EGD] W/CLOSED BIOPSY (02/16/15) OTHER GROUP THERAPY (03/12/13) PHYSICAL THERAPY NEC (07/04/15) TETANUS TOXOID ADMINIST (01/19/14) Family History: States: Unknown Family Hx - Social History Hx Tobacco Use: No Hx Alcohol Use: Yes Hx Substance Use: No - Immunization History Hx Tetanus Toxoid Vaccination: No Hx Influenza Vaccination: No Hx Pneumococcal Vaccination: No Review Of Systems Except As Marked, All Systems Reviewed And Found Negative. Constitutional: Positive for: Other (ETOH intoxication). Negative for: Fever, Chills Cardiovascular: Negative for: Chest Pain Respiratory: Negative for: Cough, Shortness of Breath Physical Exam - Physical Exam Appears: Non-toxic, No Acute Distress, Other (ETOH on breath, no signs of injury ) Skin: Normal Color, Warm, Dry Head: Atraumatic, Normacephalic Eye(s): bilateral: Normal Inspection Oral Mucosa: Moist Chest: Symmetrical, No Tenderness Cardiovascular: Rhythm Regular Respiratory: Normal Breath Sounds, No Accessory Muscle Use Gastrointestinal/Abdominal: Soft, No Tenderness Extremity: Normal ROM (x4) Neurological/Psych: Oriented x3, Normal Speech ED Course And Treatment O2 Sat by Pulse Oximetry: 97 (Room air) Pulse Ox Interpretation: Normal Reevaluation Time: 05:28 Reassessment Condition: Improved (PT W CLEAR SPEECH AND THOUGHT, STEADY GAIT. AO3. NO S/S ACUTE INTOX. PT MED CLEAR FOR DC.) Disposition Counseled Patient/Family Regarding: Diagnosis, Need For Followup - Disposition Referrals: [facility] [Outside] [facility] [Outside] Disposition: HOME/ ROUTINE Disposition Time: :28 Condition: IMPROVED Forms: [facility] (Vietnamese), General Discharge Instructions - Clinical Impression Clinical Impression: Acute alcohol intoxication - Scribe Statement The provider has reviewed the documentation as recorded by the Scribjosé miguel Ramirez All medical record entries made by the Scribe were at my direction and personally dictated by me. I have reviewed the chart and agree that the record accurately reflects my personal performance of the history, physical exam, medical decision making, and the department course for this patient. I have also personally directed, reviewed, and agree with the discharge instructions and disposition.
[2017-12-25 05:33] VITALS: BP 144/68; PULSE 76; RESP 20; TEMP 97.1
== END 2017-12-25 05:35 | disposition home or self-care (01) ==
LOC: C.ER 22:10
DX: F10.129 Alcohol abuse with intoxication, unspecified (principal); Y90.9 Presence of alcohol in blood, level not specified; E11.9 Type 2 diabetes mellitus without complications

== ENCOUNTER 2017-12-28 22:39 | Emergency (ER) | payer OTHER ==
[2017-12-28 22:40] VITALS: BMI 29.7
[2017-12-28 23:11] VITALS: TEMP 97.7
--- NOTE | 2017-12-28 23:29 | C.PDOC ---
History Of Present Illness Patient had history of frequent ED visit for alcohol intoxication. Chief Complaint (Nursing): Substance Abuse History Per: Patient History/Exam Limitations: no limitations Onset/Duration Of Symptoms: Hrs Current Symptoms Are (Timing): Still Present Suicide/Self Injury Attempted (Context): None Modifying Factor(s): Alcohol Severity: None Pain Scale Rating Of: 0 Associated Symptoms: denies: Agitation, Depression, Paranoia, Suicidal Thoughts , Suicidal Plan Involuntary Hold By: None Recent travel outside of the [place]: No Additional History Per: Patient, Prior Records Past Medical History Vital Signs: Last Vital Signs Temp 97.7 F 12/28/17 23:00 Pulse 98 H 12/29/17 05:34 Resp 18 12/29/17 05:34 BP 111/67 12/29/17 05:34 Pulse Ox 95 12/29/17 05:34 - Medical History PMH: Anxiety, Arthritis, Bronchitis, CAD, Depression, Diabetes (Pt. did not disclose to staff writer, not aware), Fractures (RIGHT ARM), Gastritis, Gall Bladder Disease (s/p cholecystectomy), HTN, Post Traumatic Stress Disorder, Rheumatoid Arthritis, Seizures, Chronic Pain Denies: Chronic Kidney Disease Surgical History: Cholecystectomy - [facility] Procedures ALCOHOL DETOXIFICATION (07/04/15) APPLICATION OF SPLINT (03/20/13) CLOSURE SKIN & SUBCUTANEOUS NEC (08/14/13) DETOXIFICATION SERVICES FOR SUBSTANCE ABUSE TREATMENT (03/22/16) ESOPHAGOGASTRODUODENOSCOPY [EGD] W/CLOSED BIOPSY (02/16/15) OTHER GROUP THERAPY (03/12/13) PHYSICAL THERAPY NEC (07/04/15) TETANUS TOXOID ADMINIST (01/19/14) Family History: States: Unknown Family Hx - Social History Hx Tobacco Use: No Hx Alcohol Use: Yes Hx Substance Use: No - Immunization History Hx Tetanus Toxoid Vaccination: No Hx Influenza Vaccination: No Hx Pneumococcal Vaccination: No Review Of Systems Constitutional: Negative for: Fever Cardiovascular: Negative for: Chest Pain, Palpitations, Orthopnea Respiratory: Negative for: Cough, Shortness of Breath Gastrointestinal: Negative for: Nausea, Vomiting, Abdominal Pain Musculoskeletal: Negative for: Neck Pain, Shoulder Pain, Arm Pain Skin: Negative for: Rash Neurological: Negative for: Weakness, Numbness, Incoordination, Change in Speech Psych: Negative for: Anxiety, Depression, Psychosis, Suicidal ideation, Withdrawal Physical Exam - Physical Exam Appears: Non-toxic, No Acute Distress, Other (AOB) Skin: Normal Color Head: Atraumatic Eye(s): bilateral: Normal Inspection, PERRL, EOMI Nose: Normal Oral Mucosa: Moist Tongue: Normal Appearing Throat: Normal Neck: Normal Chest: Symmetrical, No Deformity, No Tenderness, No Ecchymosis, No Subcutaneous Emphysema Cardiovascular: Rhythm Regular, No Edema, No Murmur, No JVD Respiratory: Normal Breath Sounds, No Rales, No Rhonchi Gastrointestinal/Abdominal: Normal Exam Back: Normal Inspection Extremity: Normal ROM Neurological/Psych: Oriented x3, Normal Motor, Normal Sensation, No Dysarthria Gait: Unsteady Other Neurological Findings: No Facial Palsy, No Forehead Sparing (alcohol on breath) ED Course And Treatment O2 Sat by Pulse Oximetry: 100 Disposition - Disposition Referrals: [facility] [Outside] Disposition: HOME/ ROUTINE Disposition Time: 06:14 Condition: STABLE Instructions: Alcohol Abuse and Alcoholism (DC) Forms: [facility] (Yi) - POA Present On Arrival: None - Clinical Impression Clinical Impression: Alcohol intoxication
[2017-12-29 05:34] VITALS: BP 111/67; PULSE 98; RESP 18
[2017-12-29 06:15] VITALS: O2SAT 100
== END 2017-12-29 05:50 | disposition home or self-care (01) ==
LOC: C.ER 22:39
DX: F10.129 Alcohol abuse with intoxication, unspecified (principal)

== ENCOUNTER 2017-12-29 22:53 | Emergency (ER) | payer OTHER ==
[2017-12-29 22:53] VITALS: BMI 29.7
--- NOTE | 2017-12-30 00:37 | C.PDOC ---
History Of Present Illness Patient is a 57 year old male who presents to the emergency department requesting a bed to stay the night. Denies any hallucinations, suicidal or homicidal ideation. No physical complaints offered at this time. Time Seen by Provider: 12/29/17 23:45 Chief Complaint (Nursing): Substance Abuse History Per: Patient History/Exam Limitations: no limitations Onset/Duration Of Symptoms: Days Current Symptoms Are (Timing): Still Present Past Medical History Reviewed: Historical Data, Nursing Documentation, Vital Signs Vital Signs: Last Vital Signs Temp 98.4 F 12/29/17 23:14 Pulse 92 H 12/29/17 23:14 Resp 18 12/29/17 23:14 BP 148/87 12/29/17 23:14 Pulse Ox 99 12/30/17 01:34 - Medical History PMH: Anxiety, Arthritis, Bronchitis, CAD, Depression, Diabetes (Pt. 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 mechanic, not aware), Fractures (RIGHT ARM), Gastritis, Gall Bladder Disease (s/p cholecystectomy), HTN, Post Traumatic Stress Disorder, Rheumatoid Arthritis, Seizures, Chronic Pain Denies: Chronic Kidney Disease Surgical History: Cholecystectomy - [facility] Procedures ALCOHOL DETOXIFICATION (07/04/15) APPLICATION OF SPLINT (03/20/13) CLOSURE SKIN & SUBCUTANEOUS NEC (08/14/13) DETOXIFICATION SERVICES FOR SUBSTANCE ABUSE TREATMENT (03/22/16) ESOPHAGOGASTRODUODENOSCOPY [EGD] W/CLOSED BIOPSY (02/16/15) OTHER GROUP THERAPY (03/12/13) PHYSICAL THERAPY NEC (07/04/15) TETANUS TOXOID ADMINIST (01/19/14) Family History: States: Unknown Family Hx - Social History Hx Tobacco Use: No Hx Alcohol Use: Yes Hx Substance Use: No - Immunization History Hx Tetanus Toxoid Vaccination: No Hx Influenza Vaccination: No Hx Pneumococcal Vaccination: No Review Of Systems Except As Marked, All Systems Reviewed And Found Negative. Psych: Negative for: Suicidal ideation (or homicidal), Other (hallucinations) Physical Exam - Physical Exam Appears: No Acute Distress, Other ((+) alcohol on breath) Skin: Normal Color, Warm, Dry Head: Atraumatic, Normacephalic Eye(s): bilateral: Normal Inspection, PERRL, EOMI Nose: Normal Oral Mucosa: Moist Neck: Normal ROM, Supple Chest: Symmetrical Cardiovascular: Rhythm Regular Respiratory: Normal Breath Sounds, No Accessory Muscle Use Gastrointestinal/Abdominal: Soft, No Tenderness, No Distention Extremity: Bilateral: Atraumatic, Normal Color And Temperature, Normal ROM Neurological/Psych: Oriented x3, Other (Slurred speech) ED Course And Treatment O2 Sat by Pulse Oximetry: 99 (RA) Pulse Ox Interpretation: Normal Medical Decision Making Medical Decision Making: Patient resting comfortably in bed. Pending clinical sobriety. pt slept entire night, now awake alert ambulatory,stable feliz c Disposition - Disposition Referrals: Non [facility] Provider, [Primary Care Provider] - Disposition: HOME/ ROUTINE Disposition Time: 05:29 Condition: STABLE Forms: [employer] (Luxembourgish) - Clinical Impression Clinical Impression: Alcohol intoxication, Homelessness - Scribe Statement The provider has reviewed the documentation as recorded by the Jada Gunter Provider Attestation: All medical record entries made by the Rominaibjosé miguel were at my direction and personally dictated by me. I have reviewed the chart and agree that the record accurately reflects my personal performance of the history, physical exam, medical decision making, and the department course for this patient. I have also personally directed, reviewed, and agree with the discharge instructions and disposition.
[2017-12-30 05:36] VITALS: BP 142/70; PULSE 83; RESP 20; TEMP 98.1; O2SAT 98
== END 2017-12-30 05:36 | disposition home or self-care (01) ==
LOC: SUPCPDRO 22:53 → C.ER 22:53
DX: F10.129 Alcohol abuse with intoxication, unspecified (principal); Z59.0 Homelessness

== ENCOUNTER 2017-12-31 23:29 | Emergency (ER) | payer OTHER ==
[2017-12-31 23:30] VITALS: BMI 29.7
--- NOTE | 2017-12-31 23:41 | C.PDOC ---
History Of Present Illness 57 year old male presents to the ED intoxicated. Patient is well known to the ED with multiple visit for same complaints. Patient states he wants a place to stay the night. Patient denies SI/HI, hallucinations, CP, SOB, abdominal pain. Time Seen by Provider: 12/31/17 23:40 History Per: Patient History/Exam Limitations: intoxication Onset/Duration Of Symptoms: Hrs Current Symptoms Are (Timing): Still Present Suicide/Self Injury Attempted (Context): None Modifying Factor(s): Alcohol Associated Symptoms: denies: Depression, Suicidal Thoughts, Suicidal Plan Involuntary Hold By: None Recent travel outside of the [place]: No Additional History Per: Patient Past Medical History Reviewed: Historical Data, Nursing Documentation, Vital Signs Vital Signs: Last Vital Signs Temp 98.4 F 01/01/18 02:06 Pulse 103 H 01/01/18 02:06 Resp 20 01/01/18 02:06 BP 129/78 01/01/18 02:06 Pulse Ox 97 01/01/18 02:06 - Medical History PMH: Anxiety, Arthritis, Bronchitis, CAD, Depression, Diabetes (Pt. did not disclose to auto service writer, not aware), Fractures (RIGHT ARM), Gastritis, Gall Bladder Disease (s/p cholecystectomy), HTN, Post Traumatic Stress Disorder, Rheumatoid Arthritis, Seizures, Chronic Pain Denies: Chronic Kidney Disease Surgical History: Cholecystectomy - [facility] Procedures ALCOHOL DETOXIFICATION (07/04/15) APPLICATION OF SPLINT (03/20/13) CLOSURE SKIN & SUBCUTANEOUS NEC (08/14/13) DETOXIFICATION SERVICES FOR SUBSTANCE ABUSE TREATMENT (03/22/16) ESOPHAGOGASTRODUODENOSCOPY [EGD] W/CLOSED BIOPSY (02/16/15) OTHER GROUP THERAPY (03/12/13) PHYSICAL THERAPY NEC (07/04/15) TETANUS TOXOID ADMINIST (01/19/14) Family History: States: Unknown Family Hx - Social History Hx Tobacco Use: No Hx Alcohol Use: Yes Hx Substance Use: No - Immunization History Hx Tetanus Toxoid Vaccination: No Hx Influenza Vaccination: No Hx Pneumococcal Vaccination: No Review Of Systems Constitutional: Negative for: Fever, Chills Cardiovascular: Negative for: Chest Pain Respiratory: Negative for: Shortness of Breath Gastrointestinal: Negative for: Vomiting, Abdominal Pain Skin: Negative for: Rash Psych: Negative for: Depression, Suicidal ideation Physical Exam - Physical Exam Appears: Non-toxic, No Acute Distress Skin: Warm, Dry Head: Normacephalic Eye(s): bilateral: Normal Inspection Nose: No Discharge, No Deformity Oral Mucosa: Moist Neck: Supple Chest: Symmetrical Cardiovascular: Rhythm Regular, No Murmur Respiratory: No Rales, No Rhonchi, No Wheezing Gastrointestinal/Abdominal: Soft, No Tenderness, No Guarding, No Rebound Extremity: Normal ROM, No Tenderness, No Swelling Neurological/Psych: Oriented x3 ED Course And Treatment O2 Sat by Pulse Oximetry: 99 (On RA) Pulse Ox Interpretation: Normal Reevaluation Time: 05:07 Reassessment Condition: Improved Disposition Counseled Patient/Family Regarding: Studies Performed, Diagnosis - Disposition Referrals: [facility] [Outside] Disposition: HOME/ ROUTINE Disposition Time: 23:41 Condition: FAIR Instructions: Alcohol Abuse and Alcoholism (DC) - Clinical Impression Clinical Impression: Alcohol intoxication, Chronic alcoholism - Scribe Statement The provider has reviewed the documentation as recorded by the Scribe Woo Brown All medical record entries made by the Scribe were at my direction and personally dictated by me. I have reviewed the chart and agree that the record accurately reflects my personal performance of the history, physical exam, medical decision making, and the department course for this patient. I have also personally directed, reviewed, and agree with the discharge instructions and disposition.
[2018-01-01 05:08] VITALS: O2SAT 99
[2018-01-01 05:21] VITALS: BP 141/85; PULSE 99; RESP 18; TEMP 98.6
== END 2018-01-01 05:22 | disposition home or self-care (01) ==
LOC: C.ER 23:29
DX: F10.229 Alcohol dependence with intoxication, unspecified (principal); E11.9 Type 2 diabetes mellitus without complications; I25.10 Atherosclerotic heart disease of native coronary artery without angina pectoris

== ENCOUNTER 2018-01-01 20:50 | Emergency (ER) | payer OTHER ==
[2018-01-01 20:51] VITALS: BMI 29.7
--- NOTE | 2018-01-01 21:32 | C.PDOC ---
History Of Present Illness 57 y/o male presents to the ER after being intoxicated. Patient is looking for a place to sleep. Patient denies having suicidal ideation, homicidal ideation, and active physical complaints. Time Seen by Provider: 01/01/18 21:30 Chief Complaint (Nursing): Medical Clearance History Per: Patient History/Exam Limitations: no limitations Past Medical History Reviewed: Historical Data, Nursing Documentation, Vital Signs Vital Signs: Last Vital Signs Temp 97.1 F L 01/01/18 21:07 Pulse 77 01/02/18 02:00 Resp 20 01/02/18 02:00 BP 131/70 01/02/18 02:00 Pulse Ox 98 01/02/18 02:00 - Medical History PMH: Anxiety, Arthritis, Bronchitis, CAD, Depression, Diabetes (Pt. 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 writer, not aware), Fractures (RIGHT ARM), Gastritis, Gall Bladder Disease (s/p cholecystectomy), HTN, Post Traumatic Stress Disorder, Rheumatoid Arthritis, Seizures, Chronic Pain Denies: Chronic Kidney Disease Surgical History: Cholecystectomy - [facility] Procedures ALCOHOL DETOXIFICATION (07/04/15) APPLICATION OF SPLINT (03/20/13) CLOSURE SKIN & SUBCUTANEOUS NEC (08/14/13) DETOXIFICATION SERVICES FOR SUBSTANCE ABUSE TREATMENT (03/22/16) ESOPHAGOGASTRODUODENOSCOPY [EGD] W/CLOSED BIOPSY (02/16/15) OTHER GROUP THERAPY (03/12/13) PHYSICAL THERAPY NEC (07/04/15) TETANUS TOXOID ADMINIST (01/19/14) Family History: States: No Known Family Hx - Social History Hx Tobacco Use: No Hx Alcohol Use: Yes Hx Substance Use: No - Immunization History Hx Tetanus Toxoid Vaccination: No Hx Influenza Vaccination: No Hx Pneumococcal Vaccination: No Review Of Systems Constitutional: Negative for: Fever, Chills Neurological: Negative for: Weakness, Numbness Physical Exam - Physical Exam Appears: No Acute Distress Skin: Warm, Dry Head: Normacephalic Eye(s): bilateral: Normal Inspection Neck: Supple Chest: Symmetrical Neurological/Psych: Oriented x3, Normal Speech, Normal Motor, Normal Sensation ED Course And Treatment O2 Sat by Pulse Oximetry: 96 (RA) Pulse Ox Interpretation: Normal Reevaluation Time: 04:40 Reassessment Condition: Improved Disposition Counseled Patient/Family Regarding: Studies Performed, Diagnosis, Need For Followup - Disposition Referrals: [facility] [Outside] Disposition: HOME/ ROUTINE Disposition Time: 21:31 Condition: FAIR Instructions: Alcohol Abuse and Alcoholism (DC) Forms: [employer] (Chinese) - Clinical Impression Clinical Impression: Alcohol intoxication, Chronic alcoholism - Scribe Statement The provider has reviewed the documentation as recorded by the Scribe Gianni Jackson Provider Attestation: All medical record entries made by the Scribe were at my direction and personally dictated by me. I have reviewed the chart and agree that the record accurately reflects my personal performance of the history, physical exam, medical decision making, and the department course for this patient. I have also personally directed, reviewed, and agree with the discharge instructions and disposition.
[2018-01-02 04:31] VITALS: RESP 20
[2018-01-02 04:56] VITALS: BP 136/68; PULSE 89; TEMP 97.3; O2SAT 99
== END 2018-01-02 04:56 | disposition home or self-care (01) ==
LOC: C.ER 20:50
DX: F10.229 Alcohol dependence with intoxication, unspecified (principal)

== ENCOUNTER 2018-01-02 20:30 | Emergency (ER) | payer OTHER ==
[2018-01-02 20:31] VITALS: BMI 29.7
--- NOTE | 2018-01-02 21:07 | C.PDOC ---
History Of Present Illness Patient is a 57 y/o male, with a Hx of depression, substance abuse, and homelessness, who presents to the ED with acute EtOH intoxication. Patient has an extensive history with similar ED presentations for similar symptoms. Patient denies any fever or chills. No other physical complaints at this time. Time Seen by Provider: 01/02/18 21:04 Chief Complaint (Nursing): Substance Abuse History Per: Patient History/Exam Limitations: no limitations Onset/Duration Of Symptoms: Hrs Current Symptoms Are (Timing): Still Present Modifying Factor(s): Alcohol Severity: Moderate Pain Scale Rating Of: 4 Associated Symptoms: denies: Suicidal Thoughts Recent travel outside of the [place]: No Past Medical History Reviewed: Historical Data, Nursing Documentation, Vital Signs Vital Signs: Last Vital Signs Temp 97 F L 01/02/18 21:05 Pulse 92 H 01/03/18 05:10 Resp 18 01/03/18 05:10 BP 110/62 01/03/18 05:10 Pulse Ox 97 01/03/18 05:10 - Medical History PMH: Anxiety, Arthritis, Bronchitis, CAD, Depression, Diabetes (Pt. did not disclose to chief writer, not aware), Fractures (RIGHT ARM), Gastritis, Gall Bladder Disease (s/p cholecystectomy), HTN, Post Traumatic Stress Disorder, Rheumatoid Arthritis, Seizures, Chronic Pain Denies: Chronic Kidney Disease Surgical History: Cholecystectomy - [facility] Procedures ALCOHOL DETOXIFICATION (07/04/15) APPLICATION OF SPLINT (03/20/13) CLOSURE SKIN & SUBCUTANEOUS NEC (08/14/13) DETOXIFICATION SERVICES FOR SUBSTANCE ABUSE TREATMENT (03/22/16) ESOPHAGOGASTRODUODENOSCOPY [EGD] W/CLOSED BIOPSY (02/16/15) OTHER GROUP THERAPY (03/12/13) PHYSICAL THERAPY NEC (07/04/15) TETANUS TOXOID ADMINIST (01/19/14) Family History: States: No Known Family Hx - Social History Hx Tobacco Use: No Hx Alcohol Use: Yes Hx Substance Use: No - Immunization History Hx Tetanus Toxoid Vaccination: No Hx Influenza Vaccination: No Hx Pneumococcal Vaccination: No Review Of Systems Constitutional: Negative for: Fever, Chills Neurological: Positive for: Other (EtOH intoxication) Physical Exam - Physical Exam Appears: Well, No Acute Distress Skin: Warm, Dry Head: Normacephalic Eye(s): bilateral: Normal Inspection Oral Mucosa: Moist Cardiovascular: Rhythm Regular, No Murmur Respiratory: No Decreased Breath Sounds, No Rales, No Rhonchi, No Wheezing Neurological/Psych: Oriented x3, Other (no focal deficits) Gait: Unsteady ED Course And Treatment Progress Note: Patient is to be discharged upon sobriety in the AM. Disposition Counseled Patient/Family Regarding: Studies Performed, Diagnosis, Need For Followup - Disposition Referrals: [facility] [Outside] Disposition: HOME/ ROUTINE Disposition Time: 21:06 Condition: FAIR Instructions: Alcohol Abuse and Alcoholism (DC) Forms: [employer] (Yi) - Clinical Impression Clinical Impression: Alcohol intoxication, Alcohol abuse with intoxication, Chronic alcoholism - Scribe Statement The provider has reviewed the documentation as recorded by the Scribe Yamilet Madrigal All medical record entries made by the Scribe were at my direction and personally dictated by me. I have reviewed the chart and agree that the record accurately reflects my personal performance of the history, physical exam, medical decision making, and the department course for this patient. I have also personally directed, reviewed, and agree with the discharge instructions and disposition.
[2018-01-02 21:08] VITALS: TEMP 97
[2018-01-03 01:17] VITALS: RESP 18
[2018-01-03 05:16] VITALS: BP 110/62; PULSE 92; O2SAT 97
== END 2018-01-03 05:50 | disposition home or self-care (01) ==
LOC: C.ER 20:30
DX: F10.229 Alcohol dependence with intoxication, unspecified (principal); Y90.9 Presence of alcohol in blood, level not specified; Z59.0 Homelessness

== ENCOUNTER 2018-01-03 21:48 | Observation (INO) | payer OTHER ==
[2018-01-03 21:49] VITALS: BMI 29.7
--- NOTE | 2018-01-04 01:17 | C.PDOC ---
History Of Present Illness <Andrey Craig - Last Filed: 01/04/18 07:32> <Nara Perez - Last Filed: 01/04/18 09:45> 57 year old male presents to the ER with acute ETOH intoxication, requesting a place to spend the night. Denies physical complaints at this time. (Andrey Craig) History Per: Patient History/Exam Limitations: no limitations Onset/Duration Of Symptoms: Hrs Current Symptoms Are (Timing): Still Present Suicide/Self Injury Attempted (Context): None Modifying Factor(s): Alcohol Associated Symptoms: denies: Depression, Suicidal Thoughts Involuntary Hold By: None Recent travel outside of the [place]: No <Andrey Craig - Last Filed: 01/04/18 07:32> <Nara Perez - Last Filed: 01/04/18 09:45> Time Seen by Provider: 01/03/18 22:13 Chief Complaint (Nursing): Substance Abuse Past Medical History Reviewed: Historical Data, Nursing Documentation, Vital Signs - Medical History PMH: Anxiety, Arthritis, Bronchitis, CAD, Depression, Diabetes (Pt. did not disclose to conventional underwriter, not aware), Fractures (RIGHT ARM), Gastritis, Gall Bladder Disease (s/p cholecystectomy), HTN, Post Traumatic Stress Disorder, Rheumatoid Arthritis, Seizures, Chronic Pain Surgical History: Cholecystectomy Family History: States: Unknown Family Hx - Social History Hx Tobacco Use: No Hx Alcohol Use: Yes Hx Substance Use: No - Immunization History Hx Tetanus Toxoid Vaccination: No Hx Influenza Vaccination: No Hx Pneumococcal Vaccination: No <Andrey Craig - Last Filed: 01/04/18 07:32> Vital Signs: Last Vital Signs Temp 98.0 F 01/04/18 02:50 Pulse 97 H 01/04/18 07:05 Resp 18 01/04/18 07:05 BP 131/79 01/04/18 07:05 Pulse Ox 96 01/04/18 07:32 - [facility] Procedures ALCOHOL DETOXIFICATION (07/04/15) APPLICATION OF SPLINT (03/20/13) CLOSURE SKIN & SUBCUTANEOUS NEC (08/14/13) DETOXIFICATION SERVICES FOR SUBSTANCE ABUSE TREATMENT (03/22/16) ESOPHAGOGASTRODUODENOSCOPY [EGD] W/CLOSED BIOPSY (02/16/15) OTHER GROUP THERAPY (03/12/13) PHYSICAL THERAPY NEC (07/04/15) TETANUS TOXOID ADMINIST (01/19/14) Review Of Systems Constitutional: Negative for: Fever, Chills Cardiovascular: Negative for: Chest Pain Respiratory: Negative for: Shortness of Breath Gastrointestinal: Negative for: Nausea, Vomiting, Abdominal Pain Psych: Negative for: Depression, Suicidal ideation <Andrey Craig - Last Filed: 01/04/18 07:32> Physical Exam - Physical Exam Appears: Non-toxic, No Acute Distress, Other (ETOH on breath, no sign of injury) Skin: Normal Color, Warm, Dry Head: Atraumatic, Normacephalic Eye(s): bilateral: Normal Inspection Oral Mucosa: Moist Chest: Symmetrical, No Tenderness Cardiovascular: Rhythm Regular Respiratory: Normal Breath Sounds, No Rales, No Rhonchi, No Wheezing Gastrointestinal/Abdominal: Soft, No Tenderness Neurological/Psych: Oriented x3, Normal Speech <Andrey Craig - Last Filed: 01/04/18 07:32> ED Course And Treatment ECG: Interpreted By Me, Viewed By Me ECG Rhythm: Sinus Rhythm ECG Interpretation: Normal Rate From EC O2 Sat by Pulse Oximetry: 96 (Room air) Pulse Ox Interpretation: Normal Reevaluation Time: 05:53 (pt refused to be d/c, claims he has L sided parasternal chest pain. EKG ordered and reviewed NSR @ 97, no acute changes. Physical exam, seems mildly intoxicated, + digitally reproducable pain @ L parasternal boarder, no rash. Pt persistently refuses to be d/c. Labs/cxr ordered and pt signed over to Day MD to f/u .) Reassessment Condition: Improved <Andrey Craig - Last Filed: 01/04/18 07:32> - Laboratory Results Result Diagrams: 01/04/18 07:10 01/04/18 07:10 <Nara Perez - Last Filed: 01/04/18 09:45> Disposition Doctor Will See Patient In The: Office Counseled Patient/Family Regarding: Studies Performed, Diagnosis - Disposition Disposition Time: 05:53 <Andrey Craig - Last Filed: 01/04/18 07:32> <Nara Perez - Last Filed: 01/04/18 09:45> - Disposition Referrals: [facility] Anonymous [Outside] [facility] [Outside] [facility] [Outside] [facility] [Outside] Disposition: HOME/ ROUTINE Condition: GOOD Instructions: Alcohol Abuse and Alcoholism (DC) Forms: [facility] (Togolese) - Clinical Impression Clinical Impression: Chronic alcoholism, Homelessness, Malingering - Scribe Statement The provider has reviewed the documentation as recorded by the Scribe <Andrey Craig - Last Filed: 01/04/18 07:32> <Nara Perez - Last Filed: 01/04/18 09:45> - Scribe Statement Fabián Ramirez All medical record entries made by the Scribe were at my direction and personally dictated by me. I have reviewed the chart and agree that the record accurately reflects my personal performance of the history, physical exam, medical decision making, and the department course for this patient. I have also personally directed, reviewed, and agree with the discharge instructions and disposition. (Andrey Craig) Physician Patient Turnover Patient Signed Over To: Nara Perez Handoff Comments: labs and cxr ordered, AM MD to f/u. <Andrey Craig - Last Filed: 01/04/18 07:32> Addendum <Andrey Craig - Last Filed: 01/04/18 07:32> <Nara Perez - Last Filed: 01/04/18 09:45> Addendum: 01/04/18 09:43 Patient currently c/o left sided chest pain that began several hours ago. Patient admitted for similar complaints in Oct 2017, JACINTO x 3 done. He denies recent stress test or echo, will discuss with hospitalist. (Nara Perez)
[2018-01-04 07:22] LABS: EOS # 0.1 K/uL (0.0-0.7); EOS % 2.1 % (0.0-4.0); HEMOGLOBIN 10.3 g/dL (12.0-18.0); LYMPH # 1.2 K/uL (1.0-4.3); LYMPH % 34.5 % (20.0-40.0); MEAN CELL VOLUME 102.3 fL (80.0-94.0); MEAN CORPUSCULAR HEMOGLOBIN 34.2 pg (27.0-31.0); MEAN CORPUSCULAR HGB CONC 33.5 g/dL (33.0-37.0); MEAN PLATELET VOLUME 8.9 fL (7.2-11.7); MONO # 0.7 K/uL (0.0-0.8); NEUT # 1.4 K/uL (1.8-7.0); NEUT % 41.4 % (50.0-75.0); NRBC % 0.3 % (0.0-2.0); PLATELET COUNT 116 K/uL (130-400); RBC 3.02 Mil/uL (4.40-5.90); RED CELL DISTRIBUTION WIDTH 16.1 % (11.5-14.5); WHITE BLOOD COUNT 3.4 K/uL (4.8-10.8)
[2018-01-04 07:33] LABS: INR 1.2; PROTHROMBIN TIME 13.6 SECONDS (9.7-12.2)
[2018-01-04] MEDS ORDERED: Sodium Chloride 0.9% 1,000 ML IV ONE (08:05)
[2018-01-04 08:09] LABS: BANDS 1 % (0-2); EOSINOPHIL 4 % (0-4); LYMPHOCYTE 32 % (20-40); MONOCYTE 20 % (0-10); NEUTROPHIL 43 % (50-75); TOTAL CELLS COUNTED 100
[2018-01-04 08:10] LABS: ANISOCYTOSIS SLIGHT; LARGE PLATELETS PRESENT; PLATELET ESTIMATE SLIGHTLY DECREASED (NORMAL); POLYCHROMIC SLIGHT
[2018-01-04 08:11] LABS: HYPOCHROMIC SLIGHT; OVALOCYTES SLIGHT
[2018-01-04] MEDS ORDERED: Sodium Chloride 0.9% 1,000 ML ONE ×2 (08:13→10:19)
[2018-01-04] MEDS ORDERED: Potassium Chloride 20 mEq ER Tab PO STA (08:30)
--- NOTE | 2018-01-04 08:38 | RAD ---
PROCEDURE: CHEST RADIOGRAPH, 1 VIEW HISTORY: SOB COMPARISON: One 11/15/2017 FINDINGS: LUNGS: Clear. PLEURA: No pneumothorax or pleural fluid seen. CARDIOVASCULAR: Normal. OSSEOUS STRUCTURES: No significant abnormalities. VISUALIZED UPPER ABDOMEN: Normal. OTHER FINDINGS: None. IMPRESSION: No active disease.
[2018-01-04] MEDS ORDERED: Potassium Chloride 20 mEq ER Tab PO ONE (08:45)
[2018-01-04] MEDS ORDERED: Multivitamin (MVI) 10 ML, Thiamine 100 MG, Folic Acid 1 MG in Sodium Chloride 0.9% 1,00... IV STA ×2 (10:02→11:14)
--- NOTE | 2018-01-04 12:13 | CP.PCM.HP ---
<Robby Black - Last Filed: 01/04/18 12:48> History of Present Illness - History of Present Illness History of Present Illness: CC: chest pain 57 year old male with past medical history of hypertension, alcohol abuse, and seizures presents to the ED for alcohol intoxication and chest pain. This patient also has a history of frequent ED visits. Patient reports the chest pain started last night shortly drinking a pint of vodka. The pain is located at left sternal border, non radiating, sharping in quality and it exacerbates with movement. Patients states he had similar chest pain in the past but they were not as severe as this episode. Patient's last known alcohol intake was at 10pm, he had a pint of vodka. Patient denies having fever, chills, shortness of breath, abdominal pain, vomiting and urinary symptoms. PMD: Dr. Huang PMHx: HTN, Seizure, alcohol abuse PSHx: cholecystectomy Allergy: none Family hx: mother of [place] at 65 Social hx: admits to alcohol, denies tobacco and drug use Present on Admission - Present on Admission Any Indicators Present on Admission: No Review of Systems - Review of Systems Systems not reviewed;Unavailable: Intoxicated - Constitutional Constitutional: As Per HPI, Fatigue. absent: Fever - EENT Eyes: As Per HPI Ears: As Per HPI Nose/Mouth/Throat: As Per HPI - Cardiovascular Cardiovascular: As Per HPI, Chest Pain. absent: Dyspnea, Syncope - Respiratory Respiratory: As Per HPI. absent: Cough, Dyspnea, Wheezing - Gastrointestinal Gastrointestinal: As Per HPI. absent: Abdominal Pain, Vomiting - Genitourinary Genitourinary: As Per HPI - Musculoskeletal Musculoskeletal: As Per HPI - Neurological Neurological: As Per HPI. absent: Sensory Deficit, Other Visual Disturbances - Psychiatric Psychiatric: As Per HPI. absent: Anxiety, Depression - Endocrine Endocrine: As Per HPI. absent: Polydipsia, Polyphagia, Polyuria - Hematologic/Lymphatic Hematologic: As Per HPI. absent: Easy Bleeding, Easy Bruising Past Patient History - Infectious Disease Hx of Infectious Diseases: None - Past Medical History & Family History Past Medical History?: Yes - Past Social History Smoking Status: Never Smoked - CARDIAC Hx Hypertension: Yes - PULMONARY Hx Bronchitis: Yes - NEUROLOGICAL Hx Seizures: Yes - HEENT Hx HEENT Problems: No - RENAL Hx Chronic Kidney Disease: No - ENDOCRINE/METABOLIC Hx Endocrine Disorders: No - INTEGUMENTARY Hx Dermatological Problems: No - MUSCULOSKELETAL/RHEUMATOLOGICAL Hx Arthritis: Yes Hx Fractures: Yes (RIGHT ARM) Hx Rheumatoid Arthritis: Yes - GASTROINTESTINAL Hx Gall Bladder Disease: Yes (s/p cholecystectomy) Hx Gastritis: Yes - PSYCHIATRIC Hx Anxiety: Yes Hx Depression: Yes Hx Post Traumatic Stress Disorder: Yes Hx Substance Use: No - SURGICAL HISTORY Hx Cholecystectomy: Yes - ANESTHESIA Hx Anesthesia: Yes Hx Anesthesia Reactions: No Hx Malignant Hyperthermia: No Meds Allergies/Adverse Reactions: Allergies Allergy/AdvReac Type Severity Reaction Status Date / Time No Known Allergies Allergy Verified 01/03/18 22:08 Physical Exam - Constitutional Appears: No Acute Distress, Unkempt - Head Exam Head Exam: ATRAUMATIC, NORMOCEPHALIC - Eye Exam Eye Exam: EOMI Pupil Exam: NORMAL ACCOMODATION - ENT Exam ENT Exam: Mucous Membranes Moist - Neck Exam Neck exam: Positive for: Normal Inspection - Respiratory Exam Respiratory Exam: Clear to Auscultation Bilateral, NORMAL BREATHING PATTERN. absent: Respiratory Distress - Cardiovascular Exam Cardiovascular Exam: REGULAR RHYTHM, +S1, +S2 - GI/Abdominal Exam GI & Abdominal Exam: Normal Bowel Sounds, Soft. absent: Tenderness - Extremities Exam Extremities exam: Positive for: normal inspection - Neurological Exam Neurological exam: Alert, CN II-XII Intact, Oriented x3 Additional comments: No tremors in the extremities - Psychiatric Exam Psychiatric exam: Normal Affect, Normal Mood - Skin Skin Exam: Dry, Warm Results - Vital Signs Recent Vital Signs: Last Vital Signs Temp 97.5 F L 01/04/18 11:31 Pulse 91 H 01/04/18 11:31 Resp 18 01/04/18 11:31 BP 130/86 01/04/18 11:31 Pulse Ox 99 01/04/18 11:31 - Labs Result Diagrams: 01/04/18 07:10 01/04/18 07:10 Labs: Laboratory Results - last 24 hr 01/04/18 01/04/18 01/04/18 06:02 07:10 07:10 WBC 3.4 L RBC 3.02 L Hgb 10.3 L Hct 30.9 L MCV 102.3 H MCH 34.2 H MCHC 33.5 RDW 16.1 H Plt Count 116 L D MPV 8.9 Neut % (Auto) 41.4 L Lymph % (Auto) 34.5 Meade % (Auto) 21.0 H Eos % (Auto) 2.1 Baso % (Auto) 1.0 Neut # (Auto) 1.4 L Lymph # (Auto) 1.2 Meade # (Auto) 0.7 Eos # (Auto) 0.1 Baso # (Auto) 0.0 Neutrophils % (Manual) 43 L Band Neutrophils % 1 Lymphocytes % (Manual) 32 Monocytes % (Manual) 20 H Eosinophils % (Manual) 4 Platelet Estimate Slightly decreased L Large Platelets Present Polychromasia Slight Hypochromasia (manual) Slight Anisocytosis (manual) Slight Macrocytosis (manual) Slight Ovalocytes Slight PT INR APTT Sodium 150 H Potassium 3.0 L Chloride 107 Carbon Dioxide 26 Anion Gap 20 BUN 9 Creatinine 0.6 L Est GFR ( Amer) > 60 Est GFR (Non-Af Amer) > 60 POC Glucose (mg/dL) 101 Random Glucose 107 Calcium 8.0 L Total Bilirubin 0.5 AST 239 H D ALT 42 Alkaline Phosphatase 97 Troponin I < 0.0120 NT-Pro-B Natriuret Pep 26.4 Total Protein 8.1 Albumin 3.3 L Globulin 4.8 H Albumin/Globulin Ratio 0.7 L Alcohol, Quantitative 253 H 01/04/18 07:10 WBC RBC Hgb Hct MCV MCH MCHC RDW Plt Count MPV Neut % (Auto) Lymph % (Auto) Meade % (Auto) Eos % (Auto) Baso % (Auto) Neut # (Auto) Lymph # (Auto) Meade # (Auto) Eos # (Auto) Baso # (Auto) Neutrophils % (Manual) Band Neutrophils % Lymphocytes % (Manual) Monocytes % (Manual) Eosinophils % (Manual) Platelet Estimate Large Platelets Polychromasia Hypochromasia (manual) Anisocytosis (manual) Macrocytosis (manual) Ovalocytes PT 13.6 H INR 1.2 APTT 29 Sodium Potassium Chloride Carbon Dioxide Anion Gap BUN Creatinine Est GFR ( Amer) Est GFR (Non-Af Amer) POC Glucose (mg/dL) Random Glucose Calcium Total Bilirubin AST ALT Alkaline Phosphatase Troponin I NT-Pro-B Natriuret Pep Total Protein Albumin Globulin Albumin/Globulin Ratio Alcohol, Quantitative Assessment & Plan - Assessment and Plan (Free Text) Assessment: Chest pain -EKG showed no acute ST changes -CXR unremarkable -Troponin negative x1, repeats pending -Echo pending -Cardiology consult, Dr. Fajardo help appreciated Alcohol intoxication -alcohol level on admission 253 -Banana bag IV @100ml/hr -Ativan 1mg IV q4hr -CIWA -Aspiration precaution -Alcohol cessation was strongly advised -F/u am labs History of seizure -Continue Dilantin 100mg TID -Continue phenobarbital 16.2mg po BID -seizure precaution Prophylactic measure -Protonix -SCD <Layo Huertas - Last Filed: 01/04/18 15:21> Results - Vital Signs Recent Vital Signs: Last Vital Signs Temp 98.2 F 01/04/18 12:44 Pulse 89 01/04/18 12:44 Resp 20 01/04/18 12:44 BP 145/86 01/04/18 12:44 Pulse Ox 100 01/04/18 12:44 - Labs Result Diagrams: 01/04/18 07:10 01/04/18 07:10 Labs: Laboratory Results - last 24 hr 01/04/18 01/04/18 01/04/18 06:02 07:10 07:10 WBC 3.4 L RBC 3.02 L Hgb 10.3 L Hct 30.9 L MCV 102.3 H MCH 34.2 H MCHC 33.5 RDW 16.1 H Plt Count 116 L D MPV 8.9 Neut % (Auto) 41.4 L Lymph % (Auto) 34.5 Meade % (Auto) 21.0 H Eos % (Auto) 2.1 Baso % (Auto) 1.0 Neut # (Auto) 1.4 L Lymph # (Auto) 1.2 Meade # (Auto) 0.7 Eos # (Auto) 0.1 Baso # (Auto) 0.0 Neutrophils % (Manual) 43 L Band Neutrophils % 1 Lymphocytes % (Manual) 32 Monocytes % (Manual) 20 H Eosinophils % (Manual) 4 Platelet Estimate Slightly decreased L Large Platelets Present Polychromasia Slight Hypochromasia (manual) Slight Anisocytosis (manual) Slight Macrocytosis (manual) Slight Ovalocytes Slight PT INR APTT Sodium Cancelled Potassium Cancelled Chloride Cancelled Carbon Dioxide Cancelled Anion Gap Cancelled BUN Cancelled Creatinine Cancelled Est GFR ( Amer) Cancelled Est GFR (Non-Af Amer) Cancelled POC Glucose (mg/dL) 101 Random Glucose Cancelled Calcium Cancelled Magnesium Cancelled Total Bilirubin Cancelled AST Cancelled ALT Cancelled Alkaline Phosphatase Cancelled Total Creatine Kinase Cancelled CK-MB (Mass) Troponin I Cancelled NT-Pro-B Natriuret Pep Cancelled Total Protein Cancelled Albumin Cancelled Globulin Cancelled Albumin/Globulin Ratio Cancelled Alcohol, Quantitative Cancelled 01/04/18 01/04/18 07:10 14:05 WBC RBC Hgb Hct MCV MCH MCHC RDW Plt Count MPV Neut % (Auto) Lymph % (Auto) Meade % (Auto) Eos % (Auto) Baso % (Auto) Neut # (Auto) Lymph # (Auto) Meade # (Auto) Eos # (Auto) Baso # (Auto) Neutrophils % (Manual) Band Neutrophils % Lymphocytes % (Manual) Monocytes % (Manual) Eosinophils % (Manual) Platelet Estimate Large Platelets Polychromasia Hypochromasia (manual) Anisocytosis (manual) Macrocytosis (manual) Ovalocytes PT 13.6 H INR 1.2 APTT 29 Sodium Potassium Chloride Carbon Dioxide Anion Gap BUN Creatinine Est GFR ( Amer) Est GFR (Non-Af Amer) POC Glucose (mg/dL) Random Glucose Calcium Magnesium Total Bilirubin AST ALT Alkaline Phosphatase Total Creatine Kinase 288 H CK-MB (Mass) 1.23 Troponin I < 0.0120 NT-Pro-B Natriuret Pep Total Protein Albumin Globulin Albumin/Globulin Ratio Alcohol, Quantitative Attending/Attestation - Attestation I have personally seen and examined this patient.: Yes I have fully participated in the care of the patient.: Yes I have reviewed all pertinent clinical information: Yes Notes (Text): Seen and examined. Patient is lying on bed comfortable.poor hygiene. Complaining of left sided chest pain resolved with pain meds given at ER. Describe as severe twisting pain ,not associated with sob,palpitation,no nausea At ER troponin negative. EKG without ischemic changes discussed with the resident. I agree with the resident's documentation of the assessment and the plan
[2018-01-04 14:33] LABS: CK-MB 1.23 ng/mL (0.0-3.38)
[2018-01-04 20:19] LABS: CK-MB 1.19 ng/mL (0.0-3.38)
[2018-01-04 21:27] LABS: URINE BILIRUBIN NEGATIVE (NEGATIVE); URINE BLOOD NEGATIVE (NEGATIVE); URINE CLARITY Clear (Clear); URINE COLOR Straw (YELLOW); URINE GLUCOSE (UA) NORMAL (Normal); URINE LEUKOCYTE ESTERASE NEG Leu/uL (Negative); URINE PROTEIN NEGATIVE (NEGATIVE)
[2018-01-04 21:35] LABS: BARBITURATES, UR NEGATIVE (NEGATIVE); OPIATES, UR NEGATIVE (NEGATIVE); PHENCYCLIDINE, UR NEGATIVE (NEGATIVE)
[2018-01-04 21:38] LABS: BENZODIAZEPINES, UR POSITIVE (NEGATIVE)
[2018-01-05 08:48] LABS: EOS # 0.1 K/uL (0.0-0.7); EOS % 1.3 % (0.0-4.0); HEMOGLOBIN 11.7 g/dL (12.0-18.0); LYMPH # 0.8 K/uL (1.0-4.3); LYMPH % 19.4 % (20.0-40.0); MEAN CELL VOLUME 101.8 fL (80.0-94.0); MEAN CORPUSCULAR HEMOGLOBIN 34.6 pg (27.0-31.0); MEAN CORPUSCULAR HGB CONC 33.9 g/dL (33.0-37.0); MEAN PLATELET VOLUME 9.5 fL (7.2-11.7); MONO # 0.7 K/uL (0.0-0.8); MONO % 17.6 % (0.0-10.0); NEUT # 2.3 K/uL (1.8-7.0); NEUT % 60.7 % (50.0-75.0); NRBC % 0.2 % (0.0-2.0); RBC 3.38 Mil/uL (4.40-5.90); RED CELL DISTRIBUTION WIDTH 15.4 % (11.5-14.5); WHITE BLOOD COUNT 3.9 K/uL (4.8-10.8)
[2018-01-05 08:49] LABS: ALB/GLOB RATIO 0.7 (1.0-2.1); ALBUMIN 3.5 g/dL (3.5-5.0); ALT/SGPT 39 U/L (21-72); AST/SGOT 171 U/L (17-59); BLOOD UREA NITROGEN 6 mg/dL (9-20); CALCIUM 8.5 mg/dl (8.6-10.4); GFR AFRICAN-AMERICAN > 60; GFR NON-AFRICAN AMERICAN > 60
[2018-01-05] MEDS: Pantoprazole 40 mg EC Tab PO SCH (09:34)
[2018-01-05] MEDS ORDERED: Potassium Chloride 20 mEq ER Tab PO ONE (09:48)
--- NOTE | 2018-01-05 10:22 | CP.PCM.PN ---
<Robby Black - Last Filed: 01/05/18 15:03> Subjective - Date & Time of Evaluation Date of Evaluation: 01/05/18 Time of Evaluation: 08:00 - Subjective Subjective: Patient seen and examined at bedside. No acute events overnight. Patient reports his chest pain has improved. Objective - Vital Signs/Intake and Output Vital Signs (last 24 hours): Temp Pulse Resp BP Pulse Ox 98.2 F 88 18 146/84 98 01/05/18 08:00 01/05/18 08:00 01/05/18 08:00 01/05/18 08:00 01/05/18 08:00 Intake and Output: 01/05/18 01/05/18 06:59 18:59 Intake Total 820 Output Total 1000 Balance -180 - Medications Medications: Current Medications Ibuprofen (Motrin Tab) 400 mg PO Q6 PRN PRN Reason: Fever >100.4 F Lorazepam (Ativan) 1 mg IVP Q4H PRN PRN Reason: Anxiety Last Admin: 01/04/18 22:37 Dose: 1 mg Ondansetron HCl (Zofran Inj) 4 mg IVP Q6 PRN PRN Reason: Nausea/Vomiting Pantoprazole Sodium (Protonix Ec Tab) 40 mg PO DAILY [facility] Last Admin: 01/05/18 09:34 Dose: 40 mg Phenobarbital (Phenobarbital Tab) 16.2 mg PO BID [facility] Last Admin: 01/05/18 09:34 Dose: 16.2 mg Phenytoin Sodium (Dilantin) 100 mg PO TID [facility] Last Admin: 01/05/18 09:34 Dose: 100 mg - Labs Labs: 01/05/18 08:26 01/05/18 08:26 PT 13.6 SECONDS (9.7-12.2) H 01/04/18 07:10 INR 1.2 01/04/18 07:10 APTT 29 SECONDS (21-34) 01/04/18 07:10 - Constitutional Appears: Non-toxic, No Acute Distress, Other (poor hygiene smell) - Head Exam Head Exam: ATRAUMATIC - Eye Exam Eye Exam: EOMI, Normal appearance - ENT Exam ENT Exam: Mucous Membranes Moist - Neck Exam Neck Exam: Normal Inspection - Respiratory Exam Respiratory Exam: Clear to Ausculation Bilateral, NORMAL BREATHING PATTERN. absent: Respiratory Distress - Cardiovascular Exam Cardiovascular Exam: REGULAR RHYTHM, +S1, +S2. absent: Murmur - GI/Abdominal Exam GI & Abdominal Exam: Soft, Normal Bowel Sounds. absent: Tenderness - Extremities Exam Extremities Exam: Normal Inspection - Neurological Exam Neurological Exam: Alert, Normal Gait, Oriented x3 - Psychiatric Exam Psychiatric exam: Normal Affect, Normal Mood - Skin Skin Exam: Dry, Warm Assessment and Plan - Assessment and Plan (Free Text) Assessment: Chest pain -Improving -EKG showed no acute ST changes -CXR unremarkable -Troponin negative x2, repeats pending -Echo pending -Cardiology consult, Dr. Fajardo help appreciated Alcohol intoxication -alcohol level on admission 253 -Banana bag IV @100ml/hr -Ativan 1mg IV q4hr -CIWA -Aspiration precaution -Alcohol cessation was strongly advised -F/u am labs Hypokalemia -K 3.2 today -Supplement as needed History of seizure -Continue Dilantin 100mg TID -Continue phenobarbital 16.2mg po BID -seizure precaution Prophylactic measure -Protonix -Heparin Case discussed with attending Dr. Huertas <Layo Huertas - Last Filed: 01/05/18 19:11> Objective - Vital Signs/Intake and Output Vital Signs (last 24 hours): Temp Pulse Resp BP Pulse Ox 98.3 F 92 H 18 146/89 97 01/05/18 16:00 01/05/18 16:00 01/05/18 16:00 01/05/18 16:00 01/05/18 16:00 Intake and Output: 01/05/18 01/05/18 06:59 18:59 Intake Total 820 Output Total 1000 Balance -180 - Medications Medications: Current Medications Heparin Sodium (Porcine) (Heparin) 5,000 units SC Q8 [facility] Last Admin: 01/05/18 13:19 Dose: 5,000 units Ibuprofen (Motrin Tab) 400 mg PO Q6 PRN PRN Reason: Fever >100.4 F Lorazepam (Ativan) 1 mg IVP Q4H PRN PRN Reason: Anxiety Last Admin: 01/04/18 22:37 Dose: 1 mg Ondansetron HCl (Zofran Inj) 4 mg IVP Q6 PRN PRN Reason: Nausea/Vomiting Pantoprazole Sodium (Protonix Ec Tab) 40 mg PO DAILY [facility] Last Admin: 01/05/18 09:34 Dose: 40 mg Phenobarbital (Phenobarbital Tab) 16.2 mg PO BID [facility] Last Admin: 01/05/18 18:07 Dose: 16.2 mg Phenytoin Sodium (Dilantin) 100 mg PO TID [facility] Last Admin: 01/05/18 18:07 Dose: 100 mg - Labs Labs: 01/05/18 08:26 01/05/18 08:26 PT 13.6 SECONDS (9.7-12.2) H 01/04/18 07:10 INR 1.2 01/04/18 07:10 APTT 29 SECONDS (21-34) 01/04/18 07:10 Attending/Attestation - Attestation I have personally seen and examined this patient.: Yes I have fully participated in the care of the patient.: Yes I have reviewed all pertinent clinical information, including history, physical exam and plan: Yes Notes (Text): seen and examined. Chest pain is better We will follow echocardiogram Discussed with the resident I agree with the documentation of the assessment and the plan 01/05/18 19:10
[2018-01-06 06:59] LABS: BASO # 0.1 K/uL (0.0-0.2); EOS # 0.1 K/uL (0.0-0.7); EOS % 2.6 % (0.0-4.0); HEMOGLOBIN 12.9 g/dL (12.0-18.0); LYMPH % 20.5 % (20.0-40.0); MEAN CELL VOLUME 100.9 fL (80.0-94.0); MEAN CORPUSCULAR HEMOGLOBIN 34.3 pg (27.0-31.0); MEAN CORPUSCULAR HGB CONC 33.9 g/dL (33.0-37.0); MEAN PLATELET VOLUME 9.2 fL (7.2-11.7); MONO % 19.3 % (0.0-10.0); NEUT # 2.9 K/uL (1.8-7.0); NEUT % 56.6 % (50.0-75.0); NRBC % 0.3 % (0.0-2.0); RBC 3.78 Mil/uL (4.40-5.90); RED CELL DISTRIBUTION WIDTH 15.7 % (11.5-14.5)
[2018-01-06 07:46] LABS: ALB/GLOB RATIO 0.7 (1.0-2.1); ALBUMIN 3.6 g/dL (3.5-5.0); ALT/SGPT 35 U/L (21-72); AST/SGOT 127 U/L (17-59); BLOOD UREA NITROGEN 8 mg/dL (9-20); CALCIUM 8.9 mg/dl (8.6-10.4); GFR AFRICAN-AMERICAN > 60; GFR NON-AFRICAN AMERICAN > 60
[2018-01-06 07:50] VITALS: BP 156/90; RESP 18; TEMP 98.8; O2SAT 99
[2018-01-06] MEDS: Pantoprazole 40 mg EC Tab PO SCH (09:40)
[2018-01-06 10:11] VITALS: PULSE 91
--- NOTE | 2018-01-06 11:37 | CP.PCM.DIS ---
<Patria Dietz DO - Last Filed: 01/06/18 11:21> Provider - Provider Date of Admission: 01/04/18 10:02 Attending physician: Layo Huertas MD Consults: Dr. Fowler Time Spent in preparation of Discharge (in minutes): 35 Diagnosis - Discharge Diagnosis (1) Chest pain Status: Acute Comment: Patient evaluated for complaint of chest pain, ACS ruled out. Chest pain resolved during admission. Hospital Course - Lab Results Lab Results: Most Recent Lab Values WBC 5.0 K/uL (4.8-10.8) 01/06/18 06:51 RBC 3.78 Mil/uL (4.40-5.90) L 01/06/18 06:51 Hgb 12.9 g/dL (12.0-18.0) 01/06/18 06:51 Hct 38.1 % (35.0-51.0) 01/06/18 06:51 MCV 100.9 fL (80.0-94.0) H 01/06/18 06:51 MCH 34.3 pg (27.0-31.0) H 01/06/18 06:51 MCHC 33.9 g/dL (33.0-37.0) 01/06/18 06:51 RDW 15.7 % (11.5-14.5) H 01/06/18 06:51 Plt Count 120 K/uL (130-400) L 01/06/18 06:51 MPV 9.2 fL (7.2-11.7) 01/06/18 06:51 Neut % (Auto) 56.6 % (50.0-75.0) 01/06/18 06:51 Lymph % (Auto) 20.5 % (20.0-40.0) 01/06/18 06:51 [place] % (Auto) 19.3 % (0.0-10.0) H 01/06/18 06:51 Eos % (Auto) 2.6 % (0.0-4.0) 01/06/18 06:51 Baso % (Auto) 1.0 % (0.0-2.0) 01/06/18 06:51 Neut # (Auto) 2.9 K/uL (1.8-7.0) 01/06/18 06:51 Lymph # (Auto) 1.0 K/uL (1.0-4.3) 01/06/18 06:51 [place] # (Auto) 1.0 K/uL (0.0-0.8) H 01/06/18 06:51 Eos # (Auto) 0.1 K/uL (0.0-0.7) 01/06/18 06:51 Baso # (Auto) 0.1 K/uL (0.0-0.2) 01/06/18 06:51 Neutrophils % (Manual) 43 % (50-75) L 01/04/18 07:10 Band Neutrophils % 1 % (0-2) 01/04/18 07:10 Lymphocytes % (Manual) 32 % (20-40) 01/04/18 07:10 Monocytes % (Manual) 20 % (0-10) H 01/04/18 07:10 Eosinophils % (Manual) 4 % (0-4) 01/04/18 07:10 Platelet Estimate Slightly decreased (NORMAL) L 01/04/18 07:10 Large Platelets Present 01/04/18 07:10 Polychromasia Slight 01/04/18 07:10 Hypochromasia (manual) Slight 01/04/18 07:10 Anisocytosis (manual) Slight 01/04/18 07:10 Macrocytosis (manual) Slight 01/04/18 07:10 Ovalocytes Slight 01/04/18 07:10 PT 13.6 SECONDS (9.7-12.2) H 01/04/18 07:10 INR 1.2 01/04/18 07:10 APTT 29 SECONDS (21-34) 01/04/18 07:10 Sodium 138 mmol/L (132-148) 01/06/18 06:51 Potassium 3.6 mmol/L (3.6-5.2) 01/06/18 06:51 Chloride 101 mmol/L (98-107) 01/06/18 06:51 Carbon Dioxide 25 mmol/L (22-30) 01/06/18 06:51 Anion Gap 16 (10-20) 01/06/18 06:51 BUN 8 mg/dL (9-20) L 01/06/18 06:51 Creatinine 0.6 mg/dL (0.8-1.5) L 01/06/18 06:51 Est GFR ( Amer) > 60 01/06/18 06:51 Est GFR (Non-Af Amer) > 60 01/06/18 06:51 POC Glucose (mg/dL) 101 mg/dL (65-110) 01/04/18 06:02 Random Glucose 93 mg/dL (75-110) 01/06/18 06:51 Calcium 8.9 mg/dl (8.6-10.4) 01/06/18 06:51 Magnesium Cancelled 01/04/18 07:10 Total Bilirubin 1.4 mg/dL (0.2-1.3) H 01/06/18 06:51 AST 127 U/L (17-59) H D 01/06/18 06:51 ALT 35 U/L (21-72) 01/06/18 06:51 Alkaline Phosphatase 85 U/L (38-126) 01/06/18 06:51 Total Creatine Kinase 294 U/L (55-170) H 01/04/18 19:31 CK-MB (Mass) 1.19 ng/mL (0.0-3.38) 01/04/18 19:31 Troponin I < 0.0120 ng/mL (0.00-0.120) 01/04/18 19:31 NT-Pro-B Natriuret Pep Cancelled 01/04/18 07:10 Total Protein 8.7 g/dL (6.3-8.3) H 01/06/18 06:51 Albumin 3.6 g/dL (3.5-5.0) 01/06/18 06:51 Globulin 5.1 gm/dL (2.2-3.9) H 01/06/18 06:51 Albumin/Globulin Ratio 0.7 (1.0-2.1) L 01/06/18 06:51 Urine Color Straw (YELLOW) 01/04/18 21:15 Urine Clarity Clear (Clear) 01/04/18 21:15 Urine pH 8.0 (5.0-8.0) 01/04/18 21:15 Ur Specific [place] 1.010 (1.003-1.030) 01/04/18 21:15 Urine Protein Negative mg/dL (NEGATIVE) 01/04/18 21:15 Urine Glucose (UA) Normal mg/dL (Normal) 01/04/18 21:15 Urine Ketones Negative mg/dL (NEGATIVE) 01/04/18 21:15 Urine Blood Negative (NEGATIVE) 01/04/18 21:15 Urine Nitrate Negative (NEGATIVE) 01/04/18 21:15 Urine Bilirubin Negative (NEGATIVE) 01/04/18 21:15 Urine Urobilinogen 4.0 mg/dL (0.2-1.0) 01/04/18 21:15 Ur Leukocyte Esterase Neg [place]/uL (Negative) 01/04/18 21:15 Urine RBC (Auto) < 1 /hpf (0-3) 01/04/18 21:15 Urine Opiates Screen Negative (NEGATIVE) 01/04/18 21:15 Urine Methadone Screen Negative (NEGATIVE) 01/04/18 21:15 Ur Barbiturates Screen Negative (NEGATIVE) 01/04/18 21:15 Ur Phencyclidine Scrn Negative (NEGATIVE) 01/04/18 21:15 Ur Amphetamines Screen Negative (NEGATIVE) 01/04/18 21:15 U Benzodiazepines Scrn Positive (NEGATIVE) 01/04/18 21:15 U Oth Cocaine Metabols Negative (NEGATIVE) 01/04/18 21:15 U Cannabinoids Screen Negative (NEGATIVE) 01/04/18 21:15 Alcohol, Quantitative Cancelled 01/04/18 07:10 - Hospital Course Hospital Course: On Admission: 57 year old male with past medical history of hypertension, alcohol abuse, and seizures presents to the ED for alcohol intoxication and chest pain. This patient also has a history of frequent ED visits. Patient reports the chest pain started last night shortly drinking a pint of vodka. The pain is located at left sternal border, non radiating, sharping in quality and it exacerbates with movement. Patients states he had similar chest pain in the past but they were not as severe as this episode. Patient's last known alcohol intake was at 10pm, he had a pint of vodka. Patient denies having fever, chills, shortness of breath, abdominal pain, vomiting and urinary symptoms. During Hospitalization: Troponin were checked to evaluate patient's chest pain and results were negative. EKG showed no acute ST changes. electronic device monitor reviewed no acute events. Patient's chest pain was reproducible on palpation and ACS was ruled out. Patient was monitored for alcohol withdrawal during his hospitalization. Patient had echocardiogram to evaluate cardiac function. He should follow up with [facility] for results. On Discharge: Patient is stable for discharge home after lunch per Dr. Masters. Patient is to resume home medication on discharge. Patient is to follow up in the [facility] for results of his echocardiogram. Patient is to return to ED if symptoms reoccur or worsen. This was explained to patient who understands and agrees. Discharge Exam - Head Exam Head Exam: ATRAUMATIC, NORMOCEPHALIC - Eye Exam Eye Exam: EOMI - ENT Exam ENT Exam: Mucous Membranes Dry - Respiratory Exam Respiratory Exam: Chest Wall Tenderness (sternal), Clear to PA & Lateral - Cardiovascular Exam Cardiovascular Exam: +S1, +S2 - GI/Abdominal Exam GI & Abdominal Exam: Normal Bowel Sounds, Soft. absent: Tenderness - Extremities Exam Extremities exam: normal inspection - Neurological Exam Neurological exam: Alert - Psychiatric Exam Psychiatric exam: Normal Affect - Skin Skin Exam: Warm Discharge Plan - Follow Up Plan Condition: GOOD Disposition: HOME/ ROUTINE Instructions: Heart Healthy Diet, Hypokalemia (DC), Chest Pain (DC), Alcohol Withdrawal (DC), Alcohol Abuse and Alcoholism (DC), Effects of Alcohol on Your Health Additional Instructions: Patient is stable for discharge home after lunch per Dr. Masters. Patient is to resume home medication on discharge. Patient is to follow up in the [facility] for results of his echocardiogram. Patient is to return to ED if symptoms reoccur or worsen. This was explained to patient who understands and agrees. Referrals: Alcoholics Anonymous [Outside] [facility] [Outside] [facility] [Outside] [facility] [Outside] <Sal Masters - Last Filed: 01/06/18 13:21> Provider - Provider Date of Admission: 01/04/18 10:02 Attending physician: Layo Huertas MD Hospital Course - Lab Results Lab Results: Most Recent Lab Values WBC 5.0 K/uL (4.8-10.8) 01/06/18 06:51 RBC 3.78 Mil/uL (4.40-5.90) L 01/06/18 06:51 Hgb 12.9 g/dL (12.0-18.0) 01/06/18 06:51 Hct 38.1 % (35.0-51.0) 01/06/18 06:51 MCV 100.9 fL (80.0-94.0) H 01/06/18 06:51 MCH 34.3 pg (27.0-31.0) H 01/06/18 06:51 MCHC 33.9 g/dL (33.0-37.0) 01/06/18 06:51 RDW 15.7 % (11.5-14.5) H 01/06/18 06:51 Plt Count 120 K/uL (130-400) L 01/06/18 06:51 MPV 9.2 fL (7.2-11.7) 01/06/18 06:51 Neut % (Auto) 56.6 % (50.0-75.0) 01/06/18 06:51 Lymph % (Auto) 20.5 % (20.0-40.0) 01/06/18 06:51 [place] % (Auto) 19.3 % (0.0-10.0) H 01/06/18 06:51 Eos % (Auto) 2.6 % (0.0-4.0) 01/06/18 06:51 Baso % (Auto) 1.0 % (0.0-2.0) 01/06/18 06:51 Neut # (Auto) 2.9 K/uL (1.8-7.0) 01/06/18 06:51 Lymph # (Auto) 1.0 K/uL (1.0-4.3) 01/06/18 06:51 [place] # (Auto) 1.0 K/uL (0.0-0.8) H 01/06/18 06:51 Eos # (Auto) 0.1 K/uL (0.0-0.7) 01/06/18 06:51 Baso # (Auto) 0.1 K/uL (0.0-0.2) 01/06/18 06:51 Neutrophils % (Manual) 43 % (50-75) L 01/04/18 07:10 Band Neutrophils % 1 % (0-2) 01/04/18 07:10 Lymphocytes % (Manual) 32 % (20-40) 01/04/18 07:10 Monocytes % (Manual) 20 % (0-10) H 01/04/18 07:10 Eosinophils % (Manual) 4 % (0-4) 01/04/18 07:10 Platelet Estimate Slightly decreased (NORMAL) L 01/04/18 07:10 Large Platelets Present 01/04/18 07:10 Polychromasia Slight 01/04/18 07:10 Hypochromasia (manual) Slight 01/04/18 07:10 Anisocytosis (manual) Slight 01/04/18 07:10 Macrocytosis (manual) Slight 01/04/18 07:10 Ovalocytes Slight 01/04/18 07:10 PT 13.6 SECONDS (9.7-12.2) H 01/04/18 07:10 INR 1.2 01/04/18 07:10 APTT 29 SECONDS (21-34) 01/04/18 07:10 Sodium 138 mmol/L (132-148) 01/06/18 06:51 Potassium 3.6 mmol/L (3.6-5.2) 01/06/18 06:51 Chloride 101 mmol/L (98-107) 01/06/18 06:51 Carbon Dioxide 25 mmol/L (22-30) 01/06/18 06:51 Anion Gap 16 (10-20) 01/06/18 06:51 BUN 8 mg/dL (9-20) L 01/06/18 06:51 Creatinine 0.6 mg/dL (0.8-1.5) L 01/06/18 06:51 Est GFR ( Amer) > 60 01/06/18 06:51 Est GFR (Non-Af Amer) > 60 01/06/18 06:51 POC Glucose (mg/dL) 101 mg/dL (65-110) 01/04/18 06:02 Random Glucose 93 mg/dL (75-110) 01/06/18 06:51 Calcium 8.9 mg/dl (8.6-10.4) 01/06/18 06:51 Magnesium Cancelled 01/04/18 07:10 Total Bilirubin 1.4 mg/dL (0.2-1.3) H 01/06/18 06:51 AST 127 U/L (17-59) H D 01/06/18 06:51 ALT 35 U/L (21-72) 01/06/18 06:51 Alkaline Phosphatase 85 U/L (38-126) 01/06/18 06:51 Total Creatine Kinase 294 U/L (55-170) H 01/04/18 19:31 CK-MB (Mass) 1.19 ng/mL (0.0-3.38) 01/04/18 19:31 Troponin I < 0.0120 ng/mL (0.00-0.120) 01/04/18 19:31 NT-Pro-B Natriuret Pep Cancelled 01/04/18 07:10 Total Protein 8.7 g/dL (6.3-8.3) H 01/06/18 06:51 Albumin 3.6 g/dL (3.5-5.0) 01/06/18 06:51 Globulin 5.1 gm/dL (2.2-3.9) H 01/06/18 06:51 Albumin/Globulin Ratio 0.7 (1.0-2.1) L 01/06/18 06:51 Urine Color Straw (YELLOW) 01/04/18 21:15 Urine Clarity Clear (Clear) 01/04/18 21:15 Urine pH 8.0 (5.0-8.0) 01/04/18 21:15 Ur Specific [place] 1.010 (1.003-1.030) 01/04/18 21:15 Urine Protein Negative mg/dL (NEGATIVE) 01/04/18 21:15 Urine Glucose (UA) Normal mg/dL (Normal) 01/04/18 21:15 Urine Ketones Negative mg/dL (NEGATIVE) 01/04/18 21:15 Urine Blood Negative (NEGATIVE) 01/04/18 21:15 Urine Nitrate Negative (NEGATIVE) 01/04/18 21:15 Urine Bilirubin Negative (NEGATIVE) 01/04/18 21:15 Urine Urobilinogen 4.0 mg/dL (0.2-1.0) 01/04/18 21:15 Ur Leukocyte Esterase Neg [place]/uL (Negative) 01/04/18 21:15 Urine RBC (Auto) < 1 /hpf (0-3) 01/04/18 21:15 Urine Opiates Screen Negative (NEGATIVE) 01/04/18 21:15 Urine Methadone Screen Negative (NEGATIVE) 01/04/18 21:15 Ur Barbiturates Screen Negative (NEGATIVE) 01/04/18 21:15 Ur Phencyclidine Scrn Negative (NEGATIVE) 01/04/18 21:15 Ur Amphetamines Screen Negative (NEGATIVE) 01/04/18 21:15 U Benzodiazepines Scrn Positive (NEGATIVE) 01/04/18 21:15 U Oth Cocaine Metabols Negative (NEGATIVE) 01/04/18 21:15 U Cannabinoids Screen Negative (NEGATIVE) 01/04/18 21:15 Alcohol, Quantitative Cancelled 01/04/18 07:10
--- NOTE | 2018-01-06 23:07 | CARD ---
APPROVED REPORT EXAM: Two-dimensional and M-mode echocardiogram with Doppler and color Doppler. Other Information Quality : GoodRhythm : INDICATION Chest Pain DRUG ABUSE RISK FACTORS Hypertension 2D DIMENSIONS IVSd1.4 (0.7-1.1cm)LVDd4.3 (3.9-5.9cm) PWd1.1 (0.7-1.1cm)LVDs3.0 (2.5-4.0cm) FS (%) 31.1 %LVEF (%)59.0 (>50%) M-Mode DIMENSIONS Left Atrium (MM)4.40 (2.5-4.0cm)Aortic Root3.79 (2.2-3.7cm) Aortic Cusp Exc.3.03 (1.5-2.0cm) Mitral Valve MV E Rfrbwzzw24.1cm/sMV A Zinvpcey70.3cm/sE/A ratio0.6 TDI E/Lateral E'0.0E/Medial E'0.0 Tricuspid Valve TR Peak Yingmbxb449vm/sTR Peak Gr.[id number] LEFT VENTRICLE The left ventricle is normal size. There is normal left ventricular wall thickness. The left ventricular function is normal. The left ventricular ejection fraction is within the normal range. There is normal LV segmental wall motion. Transmitral Doppler flow pattern is abnormal. RIGHT VENTRICLE The right ventricle is normal size. ATRIA The left atrium is mildly dilated. The right atrium size is normal. AORTIC VALVE The aortic valve is normal in structure. MITRAL VALVE Mitral regurgitation is trace to mild. <Conclusion> Normal LV systolic function. Diastolic dysfunction. Dilated LA. Trace MR. Mild TR.
== END 2018-01-06 13:06 | disposition home or self-care (01) ==
LOC: C.ER 21:48 → C.9E 01-04 10:02 → C.6T 01-04 11:26
PROVIDERS: ADMIT Internal Medicine; ATTEND Internal Medicine
DX: F10.220 Alcohol dependence with intoxication, uncomplicated (principal); Y90.8 Blood alcohol level of 240 mg/100 ml or more; I10 Essential (primary) hypertension; E87.6 Hypokalemia; Z59.0 Homelessness
CPT/HCPCS: 36415; 71045; 80053; 80324; 80345; 80346; 80349; 80353; 80358; 80361; 81001; 82948; 83992; 84484; 85025; 85610; 85730; 93306; 96360; 99285; G0378; J1644; J2060; J3411; J7040

== ENCOUNTER 2018-01-06 20:28 | Emergency (ER) | payer OTHER ==
[2018-01-06 20:29] VITALS: BMI 29.7
[2018-01-06 20:46] VITALS: BP 94/67; PULSE 107; RESP 20; TEMP 98; O2SAT 96
--- NOTE | 2018-01-06 21:27 | C.PDOC ---
History Of Present Illness 57 year old male presents to the ED intoxicated. Patient is well known to the ED with multiple visits to the ED for similar complaints. Patient admits to drinking alcohol today. Patient denies SI/HI, hallucinations, CP, SOB, abdominal pain. Time Seen by Provider: 01/06/18 21:26 Chief Complaint (Nursing): Substance Abuse History Per: Patient History/Exam Limitations: intoxication Onset/Duration Of Symptoms: Days Current Symptoms Are (Timing): Still Present Suicide/Self Injury Attempted (Context): None Modifying Factor(s): Alcohol Associated Symptoms: denies: Depression, Suicidal Thoughts, Suicidal Plan Involuntary Hold By: None Recent travel outside of the [place]: No Additional History Per: Patient Past Medical History Reviewed: Historical Data, Nursing Documentation, Vital Signs Vital Signs: Last Vital Signs Temp 98 F 01/06/18 20:45 Pulse 107 H 01/06/18 20:45 Resp 20 01/06/18 20:45 BP 94/67 L 01/06/18 20:45 Pulse Ox 96 01/06/18 21:33 - Medical History PMH: Anxiety, Arthritis, Bronchitis, CAD, Depression, Diabetes (Pt. did not disclose to personal lines underwriter, not aware), Fractures (RIGHT ARM), Gastritis, Gall Bladder Disease (s/p cholecystectomy), HTN, Post Traumatic Stress Disorder, Rheumatoid Arthritis, Seizures, Chronic Pain Denies: Chronic Kidney Disease Surgical History: Cholecystectomy - [facility] Procedures ALCOHOL DETOXIFICATION (07/04/15) APPLICATION OF SPLINT (03/20/13) CLOSURE SKIN & SUBCUTANEOUS NEC (08/14/13) DETOXIFICATION SERVICES FOR SUBSTANCE ABUSE TREATMENT (03/22/16) ESOPHAGOGASTRODUODENOSCOPY [EGD] W/CLOSED BIOPSY (02/16/15) OTHER GROUP THERAPY (03/12/13) PHYSICAL THERAPY NEC (07/04/15) TETANUS TOXOID ADMINIST (01/19/14) Family History: States: Unknown Family Hx - Social History Hx Tobacco Use: No Hx Alcohol Use: Yes Hx Substance Use: No - Immunization History Hx Tetanus Toxoid Vaccination: No Hx Influenza Vaccination: No Hx Pneumococcal Vaccination: No Review Of Systems Constitutional: Negative for: Fever, Chills Cardiovascular: Negative for: Chest Pain Respiratory: Negative for: Shortness of Breath Gastrointestinal: Negative for: Vomiting, Abdominal Pain Skin: Negative for: Rash Neurological: Negative for: Weakness, Numbness Psych: Negative for: Depression, Suicidal ideation Physical Exam - Physical Exam Appears: Non-toxic, No Acute Distress Skin: Normal Color, Warm, Dry Head: Atraumatic, Normacephalic Eye(s): bilateral: Normal Inspection Nose: No Discharge Oral Mucosa: Moist Neck: Normal ROM, Supple Chest: Symmetrical Cardiovascular: Rhythm Regular, No Murmur Respiratory: Normal Breath Sounds, No Rales, No Rhonchi, No Wheezing Gastrointestinal/Abdominal: Soft, No Tenderness, No Guarding, No Rebound Extremity: Normal ROM, No Tenderness, No Swelling Neurological/Psych: Oriented x3 ED Course And Treatment O2 Sat by Pulse Oximetry: 96 (On RA) Pulse Ox Interpretation: Normal Reevaluation Time: 00:57 Reassessment Condition: Unchanged (Patient resting quietly but is easily arousable.) Medical Decision Making Medical Decision Making: Impression: alcohol intoxication Disposition - Disposition Disposition Time: 00:58 Condition: STABLE Forms: [facility] (Danish) - Clinical Impression Clinical Impression: Alcohol intoxication - Scribe Statement The provider has reviewed the documentation as recorded by the Scribe Woo Brown All medical record entries made by the Scribe were at my direction and personally dictated by me. I have reviewed the chart and agree that the record accurately reflects my personal performance of the history, physical exam, medical decision making, and the department course for this patient. I have also personally directed, reviewed, and agree with the discharge instructions and disposition. Physician Patient Turnover Patient Signed Over To: Billie Atkins Handoff Comments: pending sobriety
== END 2018-01-06 21:26 | disposition left against medical advice (07) ==
LOC: C.ER 20:28
DX: F10.129 Alcohol abuse with intoxication, unspecified (principal); Y90.9 Presence of alcohol in blood, level not specified

== ENCOUNTER 2018-01-07 21:44 | Emergency (ER) | payer OTHER ==
[2018-01-07 21:45] VITALS: BMI 29.7
--- NOTE | 2018-01-07 22:33 | C.PDOC ---
History Of Present Illness <Andrey Craig - Last Filed: 01/08/18 00:42> <Billie Atkins - Last Filed: 01/08/18 06:39> 57 year old male walks into the ED intoxicated looking for a place to stay. Patient was recently hospitalized for 2 days for social circumstances. Patient continues consuming alcohol on a daily basis. Patient denies SI/HI, hallucinations, CP, SOB, abdominal pain. (Andrey Craig) History Per: Patient History/Exam Limitations: intoxication Onset/Duration Of Symptoms: Hrs Current Symptoms Are (Timing): Still Present Modifying Factor(s): Alcohol Associated Symptoms: denies: Depression, Suicidal Thoughts, Suicidal Plan Involuntary Hold By: None Recent travel outside of the [place]: No Additional History Per: Patient <Andrey Craig - Last Filed: 01/08/18 00:42> <Billie Atkins - Last Filed: 01/08/18 06:39> Time Seen by Provider: 01/07/18 22:00 Chief Complaint (Nursing): Substance Abuse Past Medical History Reviewed: Historical Data, Nursing Documentation, Vital Signs - Medical History PMH: Anxiety, Arthritis, Bronchitis, CAD, Depression, Diabetes (Pt. did not disclose to securities underwriter, not aware), Fractures (RIGHT ARM), Gastritis, Gall Bladder Disease (s/p cholecystectomy), HTN, Post Traumatic Stress Disorder, Rheumatoid Arthritis, Seizures, Chronic Pain Denies: Chronic Kidney Disease Surgical History: Cholecystectomy Family History: States: Unknown Family Hx - Social History Hx Tobacco Use: No Hx Alcohol Use: Yes Hx Substance Use: No - Immunization History Hx Tetanus Toxoid Vaccination: No Hx Influenza Vaccination: No Hx Pneumococcal Vaccination: No <Andrey Craig - Last Filed: 01/08/18 00:42> Vital Signs: Last Vital Signs Temp 97.9 F 01/08/18 05:46 Pulse 96 H 01/08/18 05:46 Resp 16 01/08/18 05:46 BP 129/85 01/08/18 05:46 Pulse Ox 97 01/08/18 05:46 - [facility] Procedures ALCOHOL DETOXIFICATION (07/04/15) APPLICATION OF SPLINT (03/20/13) CLOSURE SKIN & SUBCUTANEOUS NEC (08/14/13) DETOXIFICATION SERVICES FOR SUBSTANCE ABUSE TREATMENT (03/22/16) ESOPHAGOGASTRODUODENOSCOPY [EGD] W/CLOSED BIOPSY (02/16/15) OTHER GROUP THERAPY (03/12/13) PHYSICAL THERAPY NEC (07/04/15) TETANUS TOXOID ADMINIST (01/19/14) Review Of Systems Constitutional: Negative for: Fever, Chills Cardiovascular: Negative for: Chest Pain Respiratory: Negative for: Shortness of Breath Gastrointestinal: Negative for: Nausea, Vomiting, Abdominal Pain Skin: Negative for: Rash Neurological: Negative for: Weakness, Numbness Psych: Negative for: Depression, Suicidal ideation <Andrey Craig - Last Filed: 01/08/18 00:42> Physical Exam - Physical Exam Appears: Non-toxic, Unkempt, Other (Foul smelling) Skin: Normal Color, Warm, Dry Head: Atraumatic, Normacephalic Eye(s): bilateral: Normal Inspection Nose: No Discharge Oral Mucosa: Moist Neck: Normal ROM, Supple Chest: Symmetrical Cardiovascular: Rhythm Regular, No Murmur Respiratory: Normal Breath Sounds, No Rales, No Rhonchi, No Wheezing Gastrointestinal/Abdominal: Soft, No Tenderness, No Guarding, No Rebound Extremity: Normal ROM, No Tenderness, No Swelling Neurological/Psych: Oriented x3 <Andrey Craig - Last Filed: 01/08/18 00:42> ED Course And Treatment - Laboratory Results Result Diagrams: 01/07/18 23:04 01/07/18 23:04 Lab Interpretation: Abnormal (ETOH 248H) O2 Sat by Pulse Oximetry: 98 (On RA) Pulse Ox Interpretation: Normal Reevaluation Time: 01:00 Reassessment Condition: Improved <Andrey Craig - Last Filed: 01/08/18 00:42> - Laboratory Results Result Diagrams: 01/07/18 23:04 01/07/18 23:04 <Billie Atkins - Last Filed: 01/08/18 06:39> Medical Decision Making <Andrey Craig - Last Filed: 01/08/18 00:42> <Billie Atkins - Last Filed: 01/08/18 06:39> Medical Decision Making: Impression: alcohol intoxication Plan: * Labs alcohol abuse, malingering (Andrey Craig) Disposition Doctor Will See Patient In The: Office Counseled Patient/Family Regarding: Studies Performed, Diagnosis - Disposition Disposition Time: 01:00 <Andrey Craig - Last Filed: 01/08/18 00:42> <Billie Atkins - Last Filed: 01/08/18 06:39> - Disposition Referrals: Alcoholics Anonymous [Outside] Disposition: HOME/ ROUTINE Condition: GOOD Instructions: Alcohol Abuse and Alcoholism (DC) Forms: [facility] (Eritrean) - Clinical Impression Clinical Impression: Alcohol intoxication, Homelessness, Malingering - Scribe Statement The provider has reviewed the documentation as recorded by the Scribe <Andrey Craig - Last Filed: 01/08/18 00:42> <Billie Atkins - Last Filed: 01/08/18 06:39> - Scribe Statement Woo Brown All medical record entries made by the Scribe were at my direction and personally dictated by me. I have reviewed the chart and agree that the record accurately reflects my personal performance of the history, physical exam, medical decision making, and the department course for this patient. I have also personally directed, reviewed, and agree with the discharge instructions and disposition. (Andrey Craig) Physician Patient Turnover Patient Signed Over To: Billie Atkins Handoff Comments: dispo in AM when sober <Andrey Craig - Last Filed: 01/08/18 00:42>
[2018-01-07 23:09] LABS: RBC 3.44 Mil/uL (4.40-5.90)
[2018-01-07 23:12] LABS: BASO # 0.1 K/uL (0.0-0.2); EOS # 0.2 K/uL (0.0-0.7); EOS % 2.7 % (0.0-4.0); HEMOGLOBIN 11.9 g/dL (12.0-18.0); LYMPH # 1.3 K/uL (1.0-4.3); MEAN CELL VOLUME 102.4 fL (80.0-94.0); MEAN CORPUSCULAR HEMOGLOBIN 34.5 pg (27.0-31.0); MEAN CORPUSCULAR HGB CONC 33.6 g/dL (33.0-37.0); MEAN PLATELET VOLUME 9.2 fL (7.2-11.7); MONO # 1.7 K/uL (0.0-0.8); NEUT % 55.3 % (50.0-75.0); NRBC % 0.1 % (0.0-2.0); PLATELET COUNT 146 K/uL (130-400); RED CELL DISTRIBUTION WIDTH 15.7 % (11.5-14.5); WHITE BLOOD COUNT 7.3 K/uL (4.8-10.8)
[2018-01-07 23:21] LABS: ALB/GLOB RATIO 0.7 (1.0-2.1); ALBUMIN 3.9 g/dL (3.5-5.0); CALCIUM 8.6 mg/dl (8.6-10.4)
[2018-01-07 23:43] LABS: EOSINOPHIL 8 % (0-4); LYMPHOCYTE 16 % (20-40); MONOCYTE 17 % (0-10); NEUTROPHIL 59 % (50-75); TOTAL CELLS COUNTED 100
[2018-01-07 23:44] LABS: PLATELET ESTIMATE NORMAL (NORMAL)
[2018-01-08 04:17] VITALS: PULSE 96; RESP 16
[2018-01-08 05:47] VITALS: BP 129/85; TEMP 97.9; O2SAT 97
== END 2018-01-08 06:33 | disposition home or self-care (01) ==
LOC: C.ER 21:44
DX: F10.10 Alcohol abuse, uncomplicated (principal); Y90.8 Blood alcohol level of 240 mg/100 ml or more; Z76.5 Malingerer [conscious simulation]; Z59.0 Homelessness

== ENCOUNTER 2018-01-08 20:56 | Emergency (ER) | payer OTHER, SELFPAY ==
[2018-01-08 20:57] VITALS: BMI 29.7
--- NOTE | 2018-01-08 21:19 | C.PDOC ---
History Of Present Illness 57 year old male presents to the ED intoxicated. Patient is a well known homeless man that has multiple prior visits to the ED for similar complaints. Patient admits to drinking alcohol today and states he needs a place to stay. Patient denies SI/HI, hallucinations, CP, SOB, abdominal pain. Time Seen by Provider: 01/08/18 21:18 Chief Complaint (Nursing): Substance Abuse History Per: Patient History/Exam Limitations: intoxication Onset/Duration Of Symptoms: Hrs Current Symptoms Are (Timing): Still Present Suicide/Self Injury Attempted (Context): None Modifying Factor(s): Alcohol Associated Symptoms: denies: Depression, Suicidal Thoughts, Suicidal Plan Involuntary Hold By: None Recent travel outside of the [place]: No Additional History Per: Patient Past Medical History Reviewed: Historical Data, Nursing Documentation, Vital Signs Vital Signs: Last Vital Signs Temp 98.0 F 01/09/18 04:54 Pulse 83 01/09/18 04:54 Resp 18 01/09/18 04:54 BP 129/81 01/09/18 04:54 Pulse Ox 96 01/09/18 04:54 - Medical History PMH: Anxiety, Arthritis, Bronchitis, CAD, Depression, Diabetes (Pt. did not disclose to video game script writer, not aware), Fractures (RIGHT ARM), Gastritis, Gall Bladder Disease (s/p cholecystectomy), HTN, Post Traumatic Stress Disorder, Rheumatoid Arthritis, Seizures, Chronic Pain Denies: Chronic Kidney Disease Surgical History: Cholecystectomy - [facility] Procedures ALCOHOL DETOXIFICATION (07/04/15) APPLICATION OF SPLINT (03/20/13) CLOSURE SKIN & SUBCUTANEOUS NEC (08/14/13) DETOXIFICATION SERVICES FOR SUBSTANCE ABUSE TREATMENT (03/22/16) ESOPHAGOGASTRODUODENOSCOPY [EGD] W/CLOSED BIOPSY (02/16/15) OTHER GROUP THERAPY (03/12/13) PHYSICAL THERAPY NEC (07/04/15) TETANUS TOXOID ADMINIST (01/19/14) Family History: States: Unknown Family Hx - Social History Hx Tobacco Use: No Hx Alcohol Use: Yes Hx Substance Use: No - Immunization History Hx Tetanus Toxoid Vaccination: No Hx Influenza Vaccination: No Hx Pneumococcal Vaccination: No Review Of Systems Constitutional: Negative for: Fever, Chills Cardiovascular: Negative for: Chest Pain Respiratory: Negative for: Shortness of Breath Gastrointestinal: Negative for: Vomiting, Abdominal Pain Skin: Negative for: Rash Psych: Negative for: Depression, Suicidal ideation Physical Exam - Physical Exam Appears: Non-toxic, No Acute Distress Skin: Normal Color, Warm, Dry Head: Atraumatic, Normacephalic Eye(s): bilateral: Normal Inspection Nose: No Discharge Oral Mucosa: Moist Neck: Normal ROM, Supple Chest: Symmetrical Cardiovascular: Rhythm Regular, No Murmur Respiratory: Normal Breath Sounds, No Rales, No Rhonchi, No Wheezing Gastrointestinal/Abdominal: Soft, No Tenderness, No Guarding, No Rebound Extremity: Normal ROM, No Tenderness, No Swelling Neurological/Psych: Oriented x3 ED Course And Treatment O2 Sat by Pulse Oximetry: 96 (On RA) Pulse Ox Interpretation: Normal Disposition Counseled Patient/Family Regarding: Diagnosis - Disposition Referrals: [facility] [Outside] Disposition Time: 05:05 Condition: STABLE Forms: [facility] (Moroccan) - POA Present On Arrival: None - Clinical Impression Clinical Impression: Alcohol intoxication - Scribe Statement The provider has reviewed the documentation as recorded by the Scribe Woo Brown All medical record entries made by the Scribe were at my direction and personally dictated by me. I have reviewed the chart and agree that the record accurately reflects my personal performance of the history, physical exam, medical decision making, and the department course for this patient. I have also personally directed, reviewed, and agree with the discharge instructions and disposition.
[2018-01-09 01:39] VITALS: RESP 18
[2018-01-09 04:55] VITALS: BP 129/81; PULSE 83; TEMP 98; O2SAT 96
== END 2018-01-09 05:06 | disposition home or self-care (01) ==
LOC: C.ER 20:56
DX: F10.129 Alcohol abuse with intoxication, unspecified (principal); Y90.9 Presence of alcohol in blood, level not specified; Z59.0 Homelessness

== ENCOUNTER 2018-01-09 21:30 | Emergency (ER) | payer OTHER ==
[2018-01-09 21:30] VITALS: BMI 29.7
[2018-01-09 21:38] VITALS: TEMP 98.2
--- NOTE | 2018-01-09 22:10 | C.PDOC ---
History Of Present Illness <Vincent Noe - Last Filed: 01/10/18 00:38> <Billie Atkins - Last Filed: 01/10/18 06:02> 57yo male, presents to ED requesting a bed to stay the night. Denies any hallucinations, suicidal or homicidal ideation. No physical complaints offered at this time. 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 aware), Fractures (RIGHT ARM), Gastritis, Gall Bladder Disease (s/p cholecystectomy), HTN, Post Traumatic Stress Disorder, Rheumatoid Arthritis, Seizures, Chronic Pain Denies: Chronic Kidney Disease Surgical History: Cholecystectomy Family History: States: Unknown Family Hx - Social History Hx Tobacco Use: No Hx Alcohol Use: Yes Hx Substance Use: No - Immunization History Hx Tetanus Toxoid Vaccination: No Hx Influenza Vaccination: No Hx Pneumococcal Vaccination: No <Vincent Noe - Last Filed: 01/10/18 00:38> Vital Signs: Last Vital Signs Temp 98.2 F 01/10/18 04:53 Pulse 85 01/10/18 04:53 Resp 20 01/10/18 04:53 BP 132/79 01/10/18 04:53 Pulse Ox 98 01/10/18 04:53 - [facility] Procedures ALCOHOL DETOXIFICATION (07/04/15) APPLICATION OF SPLINT (03/20/13) CLOSURE SKIN & SUBCUTANEOUS NEC (08/14/13) DETOXIFICATION SERVICES FOR SUBSTANCE ABUSE TREATMENT (03/22/16) ESOPHAGOGASTRODUODENOSCOPY [EGD] W/CLOSED BIOPSY (02/16/15) OTHER GROUP THERAPY (03/12/13) PHYSICAL THERAPY NEC (07/04/15) TETANUS TOXOID ADMINIST (01/19/14) Review Of Systems Except As Marked, All Systems Reviewed And Found Negative. Constitutional: Negative for: Fever, Chills Cardiovascular: Negative for: Chest Pain Respiratory: Negative for: Shortness of Breath Gastrointestinal: Negative for: Abdominal Pain Psych: Negative for: Suicidal ideation <KusumVincent - Last Filed: 01/10/18 00:38> Physical Exam - Physical Exam Appears: Non-toxic Skin: Normal Color Head: Normacephalic Eye(s): bilateral: Normal Inspection Neck: Supple Chest: Symmetrical Cardiovascular: Rhythm Regular Respiratory: Normal Breath Sounds Extremity: Normal ROM Neurological/Psych: Oriented x3, Normal Speech, Normal Cognition <Vincent Noe - Last Filed: 01/10/18 00:38> ED Course And Treatment O2 Sat by Pulse Oximetry: 98 (RA) Pulse Ox Interpretation: Normal <Vincent Noe - Last Filed: 01/10/18 00:38> Medical Decision Making <Vincent Noe - Last Filed: 01/10/18 00:38> <Billie Atkins - Last Filed: 01/10/18 06:02> Medical Decision Making: homeless- will contineu to reassess 1200pt observed sleeping in nad. (Vincent Noe) Disposition <Vincent Noe - Last Filed: 01/10/18 00:38> - Disposition Disposition Time: 06:02 <Billie Atkins - Last Filed: 01/10/18 06:02> - Disposition Referrals: Alcoholics Anonymous [Outside] Disposition: HOME/ ROUTINE Condition: GOOD Instructions: Alcohol Use - When Is Drinking a Problem? Forms: [employer] (Thai) Print Language: SAO TOMEAN - Clinical Impression Clinical Impression: Alcohol intoxication, Homeless single person - Scribe Statement The provider has reviewed the documentation as recorded by the Scribe (Val Estrada) <Vincent Noe - Last Filed: 01/10/18 00:38> <Billie Atkins - Last Filed: 01/10/18 06:02> - Scribe Statement Provider Attestation: All medical record entries made by the Scribe were at my direction and personally dictated by me. I have reviewed the chart and agree that the record accurately reflects my personal performance of the history, physical exam, medical decision making, and the department course for this patient. I have also personally directed, reviewed, and agree with the discharge instructions and disposition. (Vincent Noe)
[2018-01-10 01:56] VITALS: RESP 20
[2018-01-10 04:54] VITALS: BP 132/79; PULSE 85; O2SAT 98
== END 2018-01-10 04:54 | disposition home or self-care (01) ==
LOC: C.ER 21:30
DX: F10.129 Alcohol abuse with intoxication, unspecified (principal); Y90.9 Presence of alcohol in blood, level not specified; Z59.0 Homelessness

== ENCOUNTER 2018-01-10 21:56 | Emergency (ER) | payer SELFPAY ==
[2018-01-10 21:56] VITALS: BMI 29.7
--- NOTE | 2018-01-10 22:58 | C.PDOC ---
History Of Present Illness <Vincent Noe - Last Filed: 01/11/18 00:28> <Billie Atkins - Last Filed: 01/11/18 07:12> 57 y/o male presents to ED intoxicated. Patient states he wants to stay the night. Denies any physical complaints. Strong ETOH on breath. (Vincent Noe) History Per: Patient History/Exam Limitations: no limitations Onset/Duration Of Symptoms: Hrs Current Symptoms Are (Timing): Still Present Suicide/Self Injury Attempted (Context): None Modifying Factor(s): Alcohol Associated Symptoms: denies: Anger, Suicidal Thoughts, Suicidal Plan Involuntary Hold By: None Recent travel outside of the [place]: No <Vincent Noe - Last Filed: 01/11/18 00:28> <Billie Atkins - Last Filed: 01/11/18 07:12> Time Seen by Provider: 01/10/18 22:33 Chief Complaint (Nursing): Substance Abuse Past Medical History Reviewed: Historical Data, Nursing Documentation, Vital Signs - Medical History PMH: Anxiety, Arthritis, Bronchitis, CAD, Depression, 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), Fractures (RIGHT ARM), Gastritis, Gall Bladder Disease (s/p cholecystectomy), HTN, Post Traumatic Stress Disorder, Rheumatoid Arthritis, Seizures, Chronic Pain Surgical History: Cholecystectomy Family History: States: Unknown Family Hx - Social History Hx Tobacco Use: No Hx Alcohol Use: Yes Hx Substance Use: No - Immunization History Hx Tetanus Toxoid Vaccination: No Hx Influenza Vaccination: No Hx Pneumococcal Vaccination: No <Vincent Noe - Last Filed: 01/11/18 00:28> Vital Signs: Last Vital Signs Temp 98.0 F 01/11/18 04:56 Pulse 102 H 01/11/18 04:56 Resp 18 01/11/18 04:56 BP 119/67 01/11/18 04:56 Pulse Ox 96 01/11/18 04:56 - [facility] Procedures ALCOHOL DETOXIFICATION (07/04/15) APPLICATION OF SPLINT (03/20/13) CLOSURE SKIN & SUBCUTANEOUS NEC (08/14/13) DETOXIFICATION SERVICES FOR SUBSTANCE ABUSE TREATMENT (03/22/16) ESOPHAGOGASTRODUODENOSCOPY [EGD] W/CLOSED BIOPSY (02/16/15) OTHER GROUP THERAPY (03/12/13) PHYSICAL THERAPY NEC (07/04/15) TETANUS TOXOID ADMINIST (01/19/14) Review Of Systems Constitutional: Negative for: Fever, Chills Cardiovascular: Negative for: Chest Pain Gastrointestinal: Negative for: Nausea, Vomiting, Abdominal Pain, Diarrhea Neurological: Negative for: Weakness, Numbness Psych: Negative for: Suicidal ideation <Vincent Noe - Last Filed: 01/11/18 00:28> Physical Exam - Physical Exam Appears: Non-toxic, Other (Intoxicated; ETOH on breath) Skin: Normal Color, Warm, Dry Head: Atraumatic, Normacephalic Eye(s): bilateral: Normal Inspection Oral Mucosa: Moist Neck: Supple Chest: Symmetrical, No Tenderness Cardiovascular: Rhythm Regular Respiratory: Normal Breath Sounds, No Decreased Breath Sounds, No Rales, No Rhonchi, No Wheezing Gastrointestinal/Abdominal: Soft, No Tenderness, No Distention, No Guarding, No Rebound Extremity: Normal ROM, No Pedal Edema, No Deformity Neurological/Psych: Oriented x3, Normal Speech, Normal Cognition <Vincent Noe - Last Filed: 01/11/18 00:28> ED Course And Treatment O2 Sat by Pulse Oximetry: 96 (RA) Pulse Ox Interpretation: Normal <Vincent Noe - Last Filed: 01/11/18 00:28> Medical Decision Making <Vincent Noe - Last Filed: 01/11/18 00:28> <Billie Atkins - Last Filed: 01/11/18 07:12> Medical Decision Making: endorsed to shiftman pending reassessment and final dispo. (Vincent Noe) Disposition <Vincent Noe - Last Filed: 01/11/18 00:28> - Disposition Disposition Time: 07:11 <Billie Atkins - Last Filed: 01/11/18 07:12> - Disposition Referrals: Alcoholics Anonymous [Outside] Disposition: HOME/ ROUTINE Condition: FAIR Instructions: Alcohol Use - When Is Drinking a Problem? Forms: [facility] (Maltese) Print Language: UKRAINIAN - Clinical Impression Clinical Impression: Alcohol intoxication - Scribe Statement The provider has reviewed the documentation as recorded by the Scribe <Vincent Noe - Last Filed: 01/11/18 00:28> <Billie Atkins - Last Filed: 01/11/18 07:12> - Scribe Statement Jessenia Majork All medical record entries made by the Scribe were at my direction and personally dictated by me. I have reviewed the chart and agree that the record accurately reflects my personal performance of the history, physical exam, medical decision making, and the department course for this patient. I have also personally directed, reviewed, and agree with the discharge instructions and disposition. (Vincent Noe)
[2018-01-11 02:58] VITALS: RESP 18
[2018-01-11 04:58] VITALS: BP 119/67; PULSE 102; TEMP 98; O2SAT 96
== END 2018-01-11 05:30 | disposition home or self-care (01) ==
LOC: C.ER 21:56
DX: F10.129 Alcohol abuse with intoxication, unspecified (principal)

== ENCOUNTER 2018-01-11 23:17 | Emergency (ER) | payer SELFPAY ==
[2018-01-11 23:18] VITALS: BMI 29.7
--- NOTE | 2018-01-12 00:04 | C.PDOC ---
History Of Present Illness 57 year old male presents to the ED via ambulance with alcohol intoxication. Patient requesting a bed to stay the night in. (+) alcohol on breath. Patient admits to drinking alcohol. Offers no physical complaints at this time. Time Seen by Provider: 01/12/18 00:05 Chief Complaint (Nursing): Substance Abuse History Per: Patient History/Exam Limitations: intoxication Onset/Duration Of Symptoms: Hrs Current Symptoms Are (Timing): Still Present Modifying Factor(s): Alcohol Past Medical History Reviewed: Historical Data, Nursing Documentation, Vital Signs Vital Signs: Last Vital Signs Temp 98.2 F 01/12/18 04:20 Pulse 94 H 01/12/18 05:58 Resp 19 01/12/18 05:58 BP 112/70 01/12/18 05:58 Pulse Ox 98 01/12/18 07:43 - Medical History PMH: Anxiety, Arthritis, Bronchitis, CAD, Depression, Diabetes (Pt. 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), Fractures (RIGHT ARM), Gastritis, Gall Bladder Disease (s/p cholecystectomy), HTN, Post Traumatic Stress Disorder, Rheumatoid Arthritis, Seizures, Chronic Pain Denies: Chronic Kidney Disease Surgical History: Cholecystectomy - [facility] Procedures ALCOHOL DETOXIFICATION (07/04/15) APPLICATION OF SPLINT (03/20/13) CLOSURE SKIN & SUBCUTANEOUS NEC (08/14/13) DETOXIFICATION SERVICES FOR SUBSTANCE ABUSE TREATMENT (03/22/16) ESOPHAGOGASTRODUODENOSCOPY [EGD] W/CLOSED BIOPSY (02/16/15) OTHER GROUP THERAPY (03/12/13) PHYSICAL THERAPY NEC (07/04/15) TETANUS TOXOID ADMINIST (01/19/14) Family History: States: Unknown Family Hx - Social History Hx Tobacco Use: No Hx Alcohol Use: Yes Hx Substance Use: No - Immunization History Hx Tetanus Toxoid Vaccination: No Hx Influenza Vaccination: No Hx Pneumococcal Vaccination: No Review Of Systems Review Of Systems: ROS cannot be obtained secondary to pt's inabilty to answer questions. Physical Exam - Physical Exam Appears: Non-toxic, No Acute Distress Skin: Normal Color, Warm, Dry Head: Atraumatic, Normacephalic Eye(s): bilateral: Normal Inspection, PERRL, EOMI Nose: Normal Oral Mucosa: Moist Neck: Normal ROM, Supple Chest: Symmetrical Cardiovascular: Rhythm Regular, No Murmur Respiratory: Normal Breath Sounds, No Accessory Muscle Use Gastrointestinal/Abdominal: Soft, No Tenderness, No Distention Extremity: Bilateral: Atraumatic, Normal Color And Temperature, Normal ROM Neurological/Psych: Normal Speech, Other (Drowsy, arousable to painful stimuli) ED Course And Treatment O2 Sat by Pulse Oximetry: 98 (RA) Pulse Ox Interpretation: Normal Medical Decision Making Medical Decision Making: Time: 00:11 Initial Plan: * Accucheck Finger stick is 128. Patient is resting comfortably, in no acute distress, with stable vitals. Patient requires no further ED intervention and is stable for discharge home. Disposition - Disposition Disposition: HOME/ ROUTINE Disposition Time: 07:43 Condition: GOOD Forms: [employer] (Cayman Islander) - Clinical Impression Clinical Impression: Homeless single person, Homelessness, Drug dependence, Alcohol abuse with intoxication, Alcohol abuse, daily use - Scribe Statement The provider has reviewed the documentation as recorded by the Rominaibjosé miguel Gunter Provider Attestation: All medical record entries made by the Rominaibjosé miguel were at my direction and personally dictated by me. I have reviewed the chart and agree that the record accurately reflects my personal performance of the history, physical exam, medical decision making, and the department course for this patient. I have also personally directed, reviewed, and agree with the discharge instructions and disposition.
[2018-01-12] MEDS ORDERED: Morphine 4 MG/ML VIAL IV ONE (00:11)
[2018-01-12] MEDS ORDERED: Sodium Chloride 0.9% 1,000 ML IV ONE (00:12)
[2018-01-12 04:21] VITALS: RESP 19; TEMP 98.2
[2018-01-12 06:00] VITALS: BP 112/70; PULSE 94
[2018-01-12 07:43] VITALS: O2SAT 98
== END 2018-01-12 05:59 | disposition home or self-care (01) ==
LOC: C.ER 23:17
DX: F10.129 Alcohol abuse with intoxication, unspecified (principal); F19.20 Other psychoactive substance dependence, uncomplicated; Y90.9 Presence of alcohol in blood, level not specified; Z59.0 Homelessness

== ENCOUNTER 2018-01-12 21:01 | Emergency (ER) | payer SELFPAY ==
[2018-01-12 21:02] VITALS: BMI 29.7
[2018-01-12 21:24] VITALS: RESP 18; TEMP 98.3
--- NOTE | 2018-01-12 21:40 | C.PDOC ---
History Of Present Illness Patient is a 57 y/o male who presents to the ED requesting a place to sleep. Pt with (+) alcohol on breath. Admits to drinking alcohol today. Patient is well known to the ED with multiple prior visits for the same. Denies any homicidal or suicidal ideation. 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 aware), Fractures (RIGHT ARM), Gastritis, Gall Bladder Disease (s/p cholecystectomy), HTN, Post Traumatic Stress Disorder, Rheumatoid Arthritis, Seizures, Chronic Pain Denies: Chronic Kidney Disease Surgical History: Cholecystectomy - [facility] Procedures ALCOHOL DETOXIFICATION (07/04/15) APPLICATION OF SPLINT (03/20/13) CLOSURE SKIN & SUBCUTANEOUS NEC (08/14/13) DETOXIFICATION SERVICES FOR SUBSTANCE ABUSE TREATMENT (03/22/16) ESOPHAGOGASTRODUODENOSCOPY [EGD] W/CLOSED BIOPSY (02/16/15) OTHER GROUP THERAPY (03/12/13) PHYSICAL THERAPY NEC (07/04/15) TETANUS TOXOID ADMINIST (01/19/14) Family History: States: Unknown Family Hx - Social History Hx Tobacco Use: No Hx Alcohol Use: Yes Hx Substance Use: No - Immunization History Hx Tetanus Toxoid Vaccination: No Hx Influenza Vaccination: No Hx Pneumococcal Vaccination: No Review Of Systems Except As Marked, All Systems Reviewed And Found Negative. Psych: Positive for: Other (ETOH intoxication). Negative for: Suicidal ideation (or homicidal) Physical Exam - Physical Exam Appears: Non-toxic, No Acute Distress Skin: Normal Color, Warm, Dry Head: Atraumatic, Normacephalic Eye(s): bilateral: Normal Inspection, PERRL, EOMI Nose: Normal Oral Mucosa: Moist Neck: Normal ROM, Supple Chest: Symmetrical Cardiovascular: Rhythm Regular, No Murmur Respiratory: Normal Breath Sounds, No Accessory Muscle Use Gastrointestinal/Abdominal: Soft, No Tenderness, No Distention Extremity: Bilateral: Atraumatic, Normal Color And Temperature, Normal ROM Neurological/Psych: Oriented x3, Other (+ Alcohol on breath, answers questions appropriately) ED Course And Treatment O2 Sat by Pulse Oximetry: 99 (RA) Pulse Ox Interpretation: Normal Medical Decision Making Medical Decision Making: Impression: 57 y/o with alcohol intoxication Patient is medically stable and requires no further intervention in the ED. Disposition Counseled Patient/Family Regarding: Diagnosis - Disposition Referrals: [facility] [Outside] Disposition: HOME/ ROUTINE Disposition Time: 01:19 Condition: STABLE Instructions: Alcohol Abuse and Alcoholism (DC) Forms: [email or web address] (Belarusian) - POA Present On Arrival: None - Clinical Impression Clinical Impression: Alcoholism /alcohol abuse - Scribe Statement The provider has reviewed the documentation as recorded by the Jada Gunter Provider Attestation: All medical record entries made by the Jada were at my direction and personally dictated by me. I have reviewed the chart and agree that the record accurately reflects my personal performance of the history, physical exam, medical decision making, and the department course for this patient. I have also personally directed, reviewed, and agree with the discharge instructions and disposition.
[2018-01-13 01:44] VITALS: BP 144/96; PULSE 88; O2SAT 98
== END 2018-01-13 01:40 | disposition home or self-care (01) ==
LOC: C.ER 21:01
DX: F10.20 Alcohol dependence, uncomplicated (principal)

== ENCOUNTER 2018-01-13 08:03 | Inpatient (IN) | payer SELFPAY ==
[2018-01-13 08:04] VITALS: BMI 29.7
[2018-01-13] MEDS ORDERED: Folic Acid 1 MG, Thiamine 100 MG, Multivitamin (MVI) 10 ML in Dextrose 5% In Water 1,00... IV STA (08:25)
[2018-01-13] MEDS ORDERED: Folic Acid 1 MG, Thiamine 100 MG, Multivitamin (MVI) 10 ML in Sodium Chloride 0.9% 1,00... IV STA (08:44)
[2018-01-13 08:46] LABS: BASO # 0.1 K/uL (0.0-0.2); BASO % 1.3 % (0.0-2.0); EOS # 0.1 K/uL (0.0-0.7); EOS % 1.3 % (0.0-4.0); HEMOGLOBIN 12.3 g/dL (12.0-18.0); LYMPH # 1.2 K/uL (1.0-4.3); LYMPH % 27.2 % (20.0-40.0); MEAN CELL VOLUME 102.8 fL (80.0-94.0); MEAN CORPUSCULAR HEMOGLOBIN 34.5 pg (27.0-31.0); MEAN CORPUSCULAR HGB CONC 33.6 g/dL (33.0-37.0); MEAN PLATELET VOLUME 9.2 fL (7.2-11.7); MONO # 0.6 K/uL (0.0-0.8); MONO % 12.3 % (0.0-10.0); NEUT # 2.6 K/uL (1.8-7.0); NEUT % 57.9 % (50.0-75.0); NRBC % 0.2 % (0.0-2.0); RBC 3.56 Mil/uL (4.40-5.90); RED CELL DISTRIBUTION WIDTH 16.2 % (11.5-14.5); WHITE BLOOD COUNT 4.5 K/uL (4.8-10.8)
--- NOTE | 2018-01-13 09:10 | RAD ---
PROCEDURE: CHEST RADIOGRAPH, 1 VIEW HISTORY: Seizure COMPARISON: 01/04/2018 FINDINGS: LUNGS: Clear. PLEURA: No pneumothorax or pleural fluid seen. CARDIOVASCULAR: Normal. OSSEOUS STRUCTURES: No significant abnormalities. VISUALIZED UPPER ABDOMEN: Normal. OTHER FINDINGS: None. IMPRESSION: No active disease.
[2018-01-13 09:19] LABS: ALB/GLOB RATIO 0.7 (1.0-2.1); ALBUMIN 3.5 g/dL (3.5-5.0); ALT/SGPT 32 U/L (21-72); AST/SGOT 126 U/L (17-59); BLOOD UREA NITROGEN 6 mg/dL (9-20); CALCIUM 8.4 mg/dl (8.6-10.4); GFR AFRICAN-AMERICAN > 60; GFR NON-AFRICAN AMERICAN > 60
--- NOTE | 2018-01-13 09:32 | CT ---
PROCEDURE: CT HEAD WITHOUT CONTRAST. HISTORY: ETOH withdrawal seizure COMPARISON: 10/10/2017 TECHNIQUE: Axial computed tomography images were obtained through the head/brain without intravenous contrast. Radiation dose: Total exam DLP = 1601.21 mGy-cm. This CT exam was performed using one or more of the following dose reduction techniques: Automated exposure control, adjustment of the mA and/or kV according to patient size, and/or use of iterative reconstruction technique. FINDINGS: HEMORRHAGE: No intracranial hemorrhage. BRAIN: No mass effect or edema. No atrophy or chronic microvascular ischemic changes. VENTRICLES: Unremarkable. No hydrocephalus. CALVARIUM: Unremarkable. PARANASAL SINUSES: Extensive chronic ethmoid and bilateral maxillary sinusitis. MASTOID AIR CELLS: Unremarkable as visualized. No inflammatory changes. OTHER FINDINGS: None. IMPRESSION: No intracranial mass, hemorrhage or evidence of acute infarct. Extensive chronic ethmoid and bilateral maxillary sinusitis. Otherwise unremarkable examination.
--- NOTE | 2018-01-13 11:23 | C.PDOC ---
History Of Present Illness 57 year old male with multiple visit to the ED for alcohol intoxication. Patient was brought in by [facility] for alcohol intoxication while on route to the ED patient had a witness seizure on the back of the ambulance. On arrival patient was alert but had a short witnessed seizure by the nurse. Patient is sleeping since. Time Seen by Provider: 01/13/18 08:15 Chief Complaint (Nursing): Substance Abuse History Per: EMS History/Exam Limitations: clinical condition Recent Seizure Activity Began: Just Before Arrival Number Of Seizures: Multiple (2) Precipitating Factor(s): Recent Alcohol Ingestion Post-ictal Period: No Severity: Mild Recent travel outside of the [place]: No Additional History Per: EMS Past Medical History Reviewed: Historical Data, Nursing Documentation, Vital Signs Vital Signs: Last Vital Signs Temp 97.4 F L 01/13/18 18:15 Pulse 89 01/13/18 18:15 Resp 20 01/13/18 18:15 BP 154/93 H 01/13/18 18:15 Pulse Ox 100 01/13/18 18:15 - Medical History PMH: Anxiety, Arthritis, Bronchitis, CAD, Depression, Diabetes (Pt. did not disclose to script writer, not aware), Fractures (RIGHT ARM), Gastritis, Gall Bladder Disease (s/p cholecystectomy), HTN, Post Traumatic Stress Disorder, Rheumatoid Arthritis, Seizures, Chronic Pain Denies: Chronic Kidney Disease Surgical History: Cholecystectomy - [facility] Procedures ALCOHOL DETOXIFICATION (07/04/15) APPLICATION OF SPLINT (03/20/13) CLOSURE SKIN & SUBCUTANEOUS NEC (08/14/13) DETOXIFICATION SERVICES FOR SUBSTANCE ABUSE TREATMENT (03/22/16) ESOPHAGOGASTRODUODENOSCOPY [EGD] W/CLOSED BIOPSY (02/16/15) OTHER GROUP THERAPY (03/12/13) PHYSICAL THERAPY NEC (07/04/15) TETANUS TOXOID ADMINIST (01/19/14) Family History: States: Unknown Family Hx - Social History Hx Tobacco Use: No Hx Alcohol Use: Yes Hx Substance Use: No - Immunization History Hx Tetanus Toxoid Vaccination: No Hx Influenza Vaccination: No Hx Pneumococcal Vaccination: No Review Of Systems Review Of Systems: ROS cannot be obtained secondary to pt's inabilty to answer questions. Physical Exam - Physical Exam Appears: Non-toxic, No Acute Distress, Unkempt Skin: Normal Color, Warm, Dry Head: Atraumatic, Normacephalic Eye(s): bilateral: Normal Inspection Nose: No Discharge Neck: Normal ROM, Supple Chest: Symmetrical Cardiovascular: Rhythm Regular, No Murmur Respiratory: Normal Breath Sounds, No Rales, No Rhonchi, No Wheezing Gastrointestinal/Abdominal: Soft, No Tenderness, No Guarding, No Rebound Extremity: Normal ROM Neurological/Psych: Oriented x3 ED Course And Treatment - Laboratory Results Result Diagrams: 01/13/18 08:37 01/13/18 09:01 ECG: Interpreted By Me, Viewed By Me ECG Rhythm: Sinus Rhythm ECG Interpretation: Abnormal Interpretation Of ECG: ST elevation on V2 and V3 more prominent compared to previous EKG on 01/04/18 Rate From EC (BPM) O2 Sat by Pulse Oximetry: 100 (On RA) Pulse Ox Interpretation: Normal - Radiology CXR: Viewed By Me, Read By Radiologist CXR Interpretation: Yes: No Acute Disease. No: Infiltrates - CT Scan/US CT head Other Rad Studies (CT/US): Read By Radiologist, Radiology Report Reviewed CT/US Interpretation: PROCEDURE: CT HEAD WITHOUT CONTRAST. HISTORY: ETOH withdrawal seizure. COMPARISON: 10/10/2017. TECHNIQUE: Axial computed tomography images were obtained through the head/brain without intravenous contrast. Radiation dose: Total exam DLP = 1601.21 mGy-cm. This CT exam was performed using one or more of the following dose reduction techniques: Automated exposure control, adjustment of the mA and/or kV according to patient size, and/or use of iterative reconstruction technique. FINDINGS: HEMORRHAGE: No intracranial hemorrhage. BRAIN: No mass effect or edema. No atrophy or chronic microvascular ischemic changes. VENTRICLES: Unremarkable. No hydrocephalus. CALVARIUM: Unremarkable. PARANASAL SINUSES: Extensive chronic ethmoid and bilateral maxillary sinusitis. MASTOID AIR CELLS: Unremarkable as visualized. No inflammatory changes. OTHER FINDINGS: None. IMPRESSION: No intracranial mass, hemorrhage or evidence of acute infarct. Extensive chronic ethmoid and bilateral maxillary sinusitis. Otherwise unremarkable examination. CT abd/pelvis Other Rad Studies (CT/US): Read By Radiologist, Radiology Report Reviewed CT/US Interpretation: Accession No. : [id number]. Patient Name / ID : GAUDENCIO LEUNG / [id number]. Exam Date : 01/13/2018 17:26:24 ( Approved ). Study Comment : Sex / Age : M / 57Y. Creator : Romina Estevez. Dictator : Packaging Coordinator : Pecan Grower : Aureliano Cline MD. Approver2 : Report Date : 17:38:19. My Comment : . PROCEDURE: CT scan abdomen pelvis dated 01/13/2018. HISTORY: Left lower quadrant pain. COMPARISON: No prior. TECHNIQUE: Contiguous axial images of the abdomen and pelvis performed following oral and intravenous injection of approximately 100 cc Visipaque 320 contrast material. Additional 2 dimensional sagittal and coronal reformats generated. Radiation dose: Total exam DLP =. This CT exam was performed using one or more of the following dose reduction techniques: Automated exposure control, adjustment of the mA and/or kV according to patient size, and/ or use of iterative reconstruction technique. . FINDINGS: LOWER THORAX: Minor bibasilar atelectasis and or scarring. Lung bases are otherwise clear without infiltrate effusion or pneumothorax. . Eventration of the right hemidiaphragm felt be present. There is medium-sized hiatal hernia with moderate wall thickening of the distal esophagus which could be due to protrusion gastric mucosa however the possibility of esophagitis or other intrinsic/invasive wall lesion including esophageal carcinoma not excluded. LIVER: Liver is enlarged measuring 22 cm in CC dimension. Moderate diffuse fatty hepatic infiltration. No obvious hepatic mass or collection however note made of small calcifications left lobe liver. . Portal and splenic veins are opacified. GALLBLADDER AND BILE DUCTS: Status post cholecystectomy. PANCREAS : No obvious pancreatic masses or collections. No significant pancreatic ductal dilatation. SPLEEN: Spleen is mildly enlarged measuring nearly 13 cm in AP dimension. No obvious splenic mass or collection. Tiny splenule adjacent to the mid inferior main body of the spleen. ADRENALS: Slightly nodular appearing left adrenal gland. KIDNEYS AND URETERS: The kidneys demonstrate relatively symmetric nephrograms. No evidence of nephrolithiasis. Prominent bilateral extrarenal pelves. BLADDER: The urinary bladder is physiologically distended. Minimal wall thickening likely due to on move mild muscular hypertrophy. REPRODUCTIVE: Prostate gland measures approximately 3.4 cm in transverse dimension. APPENDIX: Appendix is not seen with any certainty on this exam. BOWEL: Evaluation of the bowel is limited due to incomplete opacification. The stomach is incompletely distended which presumably in part accounts for thick-walled appearance. Possibility of a gastritis or other intrinsic/invasive wall lesion not excluded. Visualized loops small bowel exhibit normal contour and caliber. No evidence of acute mechanical small bowel obstruction. Stool and air seen throughout the large bowel. There are multiple colonic diverticula the bulk of which arise from the sigmoid colon. . There is a subtle on minimal irregular wall thickening involving a short segment of the distal descending/sigmoid colon. Findings could be due to some combination of incomplete distention, peristalsis and chronic muscular hypertrophy related to diverticulosis however the possibility of an early mild acute diverticulitis cannot be excluded. Clinical correlation recommended. PERITONEUM: No gross free intraperitoneal air. No evidence of free or loculated fluid collections. There is a metallic clip in the left parasagittal inferior pelvis likely related to prior gallbladder surgery. Small bilateral fat containing inguinal hernias. LYMPH NODES: Unremarkable. No enlarged lymph nodes. VASCULATURE: No evidence of abdominal aortic or iliac artery aneurysms. Minor calcified atherosclerotic plaque along the abdominal aorta and iliac arteries. BONES: Mild multilevel degenerative spondylosis of the lower thoracic and lumbar spine. OTHER FINDINGS: None. IMPRESSION: Hepatomegaly. Moderate fatty hepatic infiltration. Few small calcifications seen within left lobe liver nonspecific; rule out prior exposure to granulomatous disease process. There is a small to medium-sized hiatal hernia with wall thickening of the distal esophagus that could be due to protrusion of gastric mucosa. Possibility of esophagitis or other intrinsic/invasive wall lesion not excluded. There is also wall thickening of the stomach which may also be due to incomplete distention however gastritis or other intrinsic/invasive wall lesion cannot be excluded. Consider followup endoscopy for further evaluation. Diverticulosis. Mild irregular wall thickening of a short segment of the distal descending/sigmoid colon which may in part be due to incomplete distention, peristalsis and chronic muscular hypertrophy related to diverticulosis however the possibility of a mild acute diverticulitis cannot be excluded. Clinical correlation recommended Medical Decision Making Medical Decision Making: Impression: witnessed seizure Plan: * EKG * Labs * CT head * CXR * Ativan 2 mg IVP * IV fluids * Librium 50 mg PO * UA Spoke with Hospitalist emotional support teacher Dr. Huertas who asked for a cardiology consult before accepting the patient. Spoke with Dr. Painting cardiology emotional support teacher and sent him via text the EKG of the patient, Dr. Painting states patient is stable to be admitted to Telemetry. Dr. Painting will be on consult for the patient. Disposition - Disposition Disposition: HOSPITALIZED Disposition Time: 12:45 Condition: SERIOUS - Clinical Impression Clinical Impression: Alcohol intoxication, Tonic-clonic seizure, Abnormal EKG - PA / AGRICULTURE RESEARCH DIRECTOR / 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 - Scribe Statement The provider has reviewed the documentation as recorded by the Scribe Woo Brown All medical record entries made by the Rominaibjosé miguel were at my direction and personally dictated by me. I have reviewed the chart and agree that the record accurately reflects my personal performance of the history, physical exam, medical decision making, and the department course for this patient. I have also personally directed, reviewed, and agree with the discharge instructions and disposition.
[2018-01-13] MEDS ORDERED: Fosphenytoin 1,000 MG in Sodium Chloride 0.9% 50 ML IV STA (11:35)
[2018-01-13] MEDS ORDERED: Lactated Ringer's 1,000 ML IV SCH (14:00)
[2018-01-13 14:08] LABS: SQUAMOUS EPITHIAL < 1 /hpf (0-5); URINE BILIRUBIN NEGATIVE (NEGATIVE); URINE BLOOD NEGATIVE (NEGATIVE); URINE CLARITY Clear (Clear); URINE COLOR Yellow (YELLOW); URINE GLUCOSE (UA) NORMAL (Normal); URINE LEUKOCYTE ESTERASE NEG Leu/uL (Negative); URINE PROTEIN NEGATIVE (NEGATIVE)
[2018-01-13 14:23] LABS: OPIATES, UR NEGATIVE (NEGATIVE); PHENCYCLIDINE, UR NEGATIVE (NEGATIVE)
--- NOTE | 2018-01-13 14:26 | CP.PCM.HP ---
<PreethiRaquel - Last Filed: 01/13/18 15:04> History of Present Illness - History of Present Illness History of Present Illness: CC: seizures 57 year old male w/ a PMH of HTN, seizure disorder and alcohol use disorder was brought to the ER by ambulance while intoxicated. He experienced a seizure lasting 30sec en route and another in the ER lasting 2min during which he had an episode of urinary incontinence. At bedside he complained of pain in the back of his head, the front of his left shoulder, and in LLQ which he states feels like a knife. He states that at home he takes phenytoin and phenobarbital unreliably and that he last took them the day before yesterday. He also stated that he has not had a drink for a couple of days and is experiencing mild tremors; he drinks 1 liter of vodka "on the regular" (no further specification) . He reports constipation and denies SOB, nausea, vomiting, diarrhea. PMH: HTN, seizure, alcohol use disorder PSH: cholecystectomy FH: brother, mother, father have had seizure disorders Social: 1 liter vodka every few days ("last drinks 2.5 days ago" 01/10) Present on Admission - Present on Admission Any Indicators Present on Admission: No History of DVT/PE: No History of Uncontrolled Diabetes: No Urinary Catheter: No Decubitus Ulcer Present: No Past Patient History - Infectious Disease Hx of Infectious Diseases: None - Past Medical History & Family History Past Medical History?: Yes - Past Social History Smoking Status: Never Smoked - CARDIAC Hx Hypertension: Yes - PULMONARY Hx Bronchitis: Yes - NEUROLOGICAL Hx Seizures: Yes - HEENT Hx HEENT Problems: No - RENAL Hx Chronic Kidney Disease: No - ENDOCRINE/METABOLIC Hx Endocrine Disorders: No - INTEGUMENTARY Hx Dermatological Problems: No - MUSCULOSKELETAL/RHEUMATOLOGICAL Hx Arthritis: Yes Hx Fractures: Yes (RIGHT ARM) Hx Rheumatoid Arthritis: Yes - GASTROINTESTINAL Hx Gall Bladder Disease: Yes (s/p cholecystectomy) Hx Gastritis: Yes - PSYCHIATRIC Hx Anxiety: Yes Hx Depression: Yes Hx Post Traumatic Stress Disorder: Yes Hx Substance Use: No - SURGICAL HISTORY Hx Cholecystectomy: Yes - ANESTHESIA Hx Anesthesia: Yes Hx Anesthesia Reactions: No Hx Malignant Hyperthermia: No Meds Allergies/Adverse Reactions: Allergies Allergy/AdvReac Type Severity Reaction Status Date / Time No Known Allergies Allergy Verified 01/13/18 08:09 Physical Exam - Constitutional Appears: Unkempt, Other (slow to respond) - Head Exam Head Exam: ATRAUMATIC, NORMAL INSPECTION, NORMOCEPHALIC - Eye Exam Pupil Exam: NORMAL ACCOMODATION, PERRL Additional comments: horizontal nystagmus noted when accessing extraoccular muscles scleral icterus - ENT Exam ENT Exam: Mucous Membranes Moist, Normal Exam - Neck Exam Neck exam: Positive for: Full Rom, Normal Inspection. Negative for: Thyromegaly - Respiratory Exam Respiratory Exam: Clear to Auscultation Bilateral, NORMAL BREATHING PATTERN - Cardiovascular Exam Cardiovascular Exam: REGULAR RHYTHM, +S1, +S2. absent: Bradycardia, Tachycardia - GI/Abdominal Exam GI & Abdominal Exam: Distended, Normal Bowel Sounds, Soft, Tenderness (LLQ pain) . absent: Firm, Guarding - Extremities Exam Extremities exam: Positive for: full ROM, normal capillary refill, pedal pulses present. Negative for: pedal edema - Back Exam Back exam: FULL ROM Additional comments: 4/5 bilateral lower extremity weakness 5/5 bilateral upper extremity weakness - Neurological Exam Neurological exam: CN II-XII Intact, Normal Gait, Reflexes Normal - Psychiatric Exam Psychiatric exam: Normal Mood - Skin Skin Exam: Dry, Warm Additional comments: abrasion on left hand, no erythema, edema, purulence Results - Vital Signs Recent Vital Signs: Last Vital Signs Temp 98 F 01/13/18 12:50 Pulse 93 H 01/13/18 12:50 Resp 16 01/13/18 12:50 BP 133/93 H 01/13/18 12:50 Pulse Ox 100 01/13/18 12:58 - Labs Result Diagrams: 01/13/18 08:37 01/13/18 09:01 Labs: Laboratory Results - last 24 hr 01/13/18 01/13/18 01/13/18 08:09 08:37 09:01 WBC 4.5 L RBC 3.56 L Hgb 12.3 Hct 36.6 MCV 102.8 H MCH 34.5 H MCHC 33.6 RDW 16.2 H Plt Count 139 MPV 9.2 Neut % (Auto) 57.9 Lymph % (Auto) 27.2 [place] % (Auto) 12.3 H Eos % (Auto) 1.3 Baso % (Auto) 1.3 Neut # (Auto) 2.6 Lymph # (Auto) 1.2 [place] # (Auto) 0.6 Eos # (Auto) 0.1 Baso # (Auto) 0.1 Sodium 147 Potassium 3.7 Chloride 105 Carbon Dioxide 25 Anion Gap 21 H BUN 6 L Creatinine 0.5 L Est GFR ( Amer) > 60 Est GFR (Non-Af Amer) > 60 POC Glucose (mg/dL) 97 Random Glucose 108 Calcium 8.4 L Magnesium Total Bilirubin 0.6 AST 126 H ALT 32 Alkaline Phosphatase 97 Total Creatine Kinase 111 CK-MB (Mass) Troponin I < 0.0120 NT-Pro-B Natriuret Pep Total Protein 8.7 H Albumin 3.5 Globulin 5.2 H Albumin/Globulin Ratio 0.7 L Urine Color Urine Clarity Urine pH Ur Specific [place] Urine Protein Urine Glucose (UA) Urine Ketones Urine Blood Urine Nitrate Urine Bilirubin Urine Urobilinogen Ur Leukocyte Esterase Urine WBC (Auto) Ur Squamous Epith Cells Phenytoin Alcohol, Quantitative 254 H 01/13/18 01/13/18 01/13/18 10:40 13:45 13:45 WBC RBC Hgb Hct MCV MCH MCHC RDW Plt Count MPV Neut % (Auto) Lymph % (Auto) [place] % (Auto) Eos % (Auto) Baso % (Auto) Neut # (Auto) Lymph # (Auto) [place] # (Auto) Eos # (Auto) Baso # (Auto) Sodium Potassium Chloride Carbon Dioxide Anion Gap BUN Creatinine Est GFR ( Amer) Est GFR (Non-Af Amer) POC Glucose (mg/dL) Random Glucose Calcium Magnesium 1.7 Total Bilirubin AST ALT Alkaline Phosphatase Total Creatine Kinase Cancelled CK-MB (Mass) Cancelled Troponin I Cancelled NT-Pro-B Natriuret Pep Cancelled Total Protein Albumin Globulin Albumin/Globulin Ratio Urine Color Yellow Urine Clarity Clear Urine pH 6.0 Ur Specific [place] 1.012 Urine Protein Negative Urine Glucose (UA) Normal Urine Ketones Negative Urine Blood Negative Urine Nitrate Negative Urine Bilirubin Negative Urine Urobilinogen 4.0 Ur Leukocyte Esterase Neg Urine WBC (Auto) 1 Ur Squamous Epith Cells < 1 Phenytoin < 3.0 L Alcohol, Quantitative Assessment & Plan - Assessment and Plan (Free Text) Assessment: 57M presents with seizures en route to ED via BLS, and in ER. Patient was noted to be post-ictal on arrival and in ED. 1. Alcohol abuse alcohol intoxication Librium taper Banana bag @50cc/hr seizure precautions f/u abdominal US 2. seizure disorder, one witnessed in ED, one in BLS en route to ED seizure precautions in ED patient was given 1 gm Fosphenytoin, 2mg Ativan IV CT head: negative for acute bleed, tumor, acute disease processes Hx of noncompliance. Patient takes Dilantin/phenobarbital (last use 01/11) Dilantin level is low, resume dilantin 100mg PO TID and Phenobarbital 16.5mg PO BID 3. Abnormal EKG librium taper monitor on telemetry Prolonged QT >450 on EKG in ED monitor Magnesium and Potassium level Cardio: Dr. Painting 4. Abdominal Pain (LLQ pain on exam), constipation history f/u CT Abdomen/pelvis PO/IV contrast 5. Prophylactic care Seizure precautions Heparin 5,000 SC Q12H Protonix 40mg IV QD Raquel Oro DO PGY1 - Date & Time Date: 01/13/18 Time: 15:05 <Ana Rich V - Last Filed: 01/13/18 20:17> Results - Vital Signs Recent Vital Signs: Last Vital Signs Temp 97.4 F L 01/13/18 18:15 Pulse 89 01/13/18 18:15 Resp 20 01/13/18 18:15 BP 154/93 H 01/13/18 18:15 Pulse Ox 100 01/13/18 18:57 - Labs Result Diagrams: 01/13/18 08:37 01/13/18 09:01 Labs: Laboratory Results - last 24 hr 01/13/18 01/13/18 01/13/18 08:09 08:37 09:01 WBC 4.5 L RBC 3.56 L Hgb 12.3 Hct 36.6 MCV 102.8 H MCH 34.5 H MCHC 33.6 RDW 16.2 H Plt Count 139 MPV 9.2 Neut % (Auto) 57.9 Lymph % (Auto) 27.2 [place] % (Auto) 12.3 H Eos % (Auto) 1.3 Baso % (Auto) 1.3 Neut # (Auto) 2.6 Lymph # (Auto) 1.2 [place] # (Auto) 0.6 Eos # (Auto) 0.1 Baso # (Auto) 0.1 D-Dimer, Quantitative Sodium 147 Potassium 3.7 Chloride 105 Carbon Dioxide 25 Anion Gap 21 H BUN 6 L Creatinine 0.5 L Est GFR ( Amer) > 60 Est GFR (Non-Af Amer) > 60 POC Glucose (mg/dL) 97 Random Glucose 108 Calcium 8.4 L Magnesium Total Bilirubin 0.6 AST 126 H ALT 32 Alkaline Phosphatase 97 Total Creatine Kinase 111 CK-MB (Mass) Troponin I < 0.0120 NT-Pro-B Natriuret Pep Total Protein 8.7 H Albumin 3.5 Globulin 5.2 H Albumin/Globulin Ratio 0.7 L Urine Color Urine Clarity Urine pH Ur Specific [place] Urine Protein Urine Glucose (UA) Urine Ketones Urine Blood Urine Nitrate Urine Bilirubin Urine Urobilinogen Ur Leukocyte Esterase Urine WBC (Auto) Ur Squamous Epith Cells Urine Opiates Screen Urine Methadone Screen Ur Barbiturates Screen Phenytoin Ur Phencyclidine Scrn Ur Amphetamines Screen U Benzodiazepines Scrn U Oth Cocaine Metabols U Cannabinoids Screen Alcohol, Quantitative 254 H 01/13/18 01/13/18 01/13/18 10:40 13:45 13:45 WBC RBC Hgb Hct MCV MCH MCHC RDW Plt Count MPV Neut % (Auto) Lymph % (Auto) [place] % (Auto) Eos % (Auto) Baso % (Auto) Neut # (Auto) Lymph # (Auto) [place] # (Auto) Eos # (Auto) Baso # (Auto) D-Dimer, Quantitative Sodium Potassium Chloride Carbon Dioxide Anion Gap BUN Creatinine Est GFR ( Amer) Est GFR (Non-Af Amer) POC Glucose (mg/dL) Random Glucose Calcium Magnesium Total Bilirubin AST ALT Alkaline Phosphatase Total Creatine Kinase CK-MB (Mass) Troponin I NT-Pro-B Natriuret Pep Total Protein Albumin Globulin Albumin/Globulin Ratio Urine Color Yellow Urine Clarity Clear Urine pH 6.0 Ur Specific [place] 1.012 Urine Protein Negative Urine Glucose (UA) Normal Urine Ketones Negative Urine Blood Negative Urine Nitrate Negative Urine Bilirubin Negative Urine Urobilinogen 4.0 Ur Leukocyte Esterase Neg Urine WBC (Auto) 1 Ur Squamous Epith Cells < 1 Urine Opiates Screen Negative Urine Methadone Screen Negative Ur Barbiturates Screen Positive H Phenytoin < 3.0 L Ur Phencyclidine Scrn Negative Ur Amphetamines Screen Negative U Benzodiazepines Scrn Positive U Oth Cocaine Metabols Negative U Cannabinoids Screen Negative Alcohol, Quantitative 01/13/18 01/13/18 01/13/18 13:45 13:45 14:34 WBC RBC Hgb Hct MCV MCH MCHC RDW Plt Count MPV Neut % (Auto) Lymph % (Auto) [place] % (Auto) Eos % (Auto) Baso % (Auto) Neut # (Auto) Lymph # (Auto) [place] # (Auto) Eos # (Auto) Baso # (Auto) D-Dimer, Quantitative 427 H Sodium Potassium Chloride Carbon Dioxide Anion Gap BUN Creatinine Est GFR ( Amer) Est GFR (Non-Af Amer) POC Glucose (mg/dL) Random Glucose Calcium Magnesium 1.7 Total Bilirubin AST ALT Alkaline Phosphatase Total Creatine Kinase Cancelled 198 H CK-MB (Mass) Cancelled 1.67 Troponin I Cancelled < 0.0120 NT-Pro-B Natriuret Pep Cancelled 43.3 Total Protein Albumin Globulin Albumin/Globulin Ratio Urine Color Urine Clarity Urine pH Ur Specific [place] Urine Protein Urine Glucose (UA) Urine Ketones Urine Blood Urine Nitrate Urine Bilirubin Urine Urobilinogen Ur Leukocyte Esterase Urine WBC (Auto) Ur Squamous Epith Cells Urine Opiates Screen Urine Methadone Screen Ur Barbiturates Screen Phenytoin Ur Phencyclidine Scrn Ur Amphetamines Screen U Benzodiazepines Scrn U Oth Cocaine Metabols U Cannabinoids Screen Alcohol, Quantitative 01/13/18 01/13/18 18:24 19:42 WBC RBC Hgb Hct MCV MCH MCHC RDW Plt Count MPV Neut % (Auto) Lymph % (Auto) [place] % (Auto) Eos % (Auto) Baso % (Auto) Neut # (Auto) Lymph # (Auto) [place] # (Auto) Eos # (Auto) Baso # (Auto) D-Dimer, Quantitative Sodium Potassium Chloride Carbon Dioxide Anion Gap BUN Creatinine Est GFR ( Amer) Est GFR (Non-Af Amer) POC Glucose (mg/dL) 94 Random Glucose Calcium Magnesium Total Bilirubin AST ALT Alkaline Phosphatase Total Creatine Kinase 196 H CK-MB (Mass) Troponin I NT-Pro-B Natriuret Pep Total Protein Albumin Globulin Albumin/Globulin Ratio Urine Color Urine Clarity Urine pH Ur Specific [place] Urine Protein Urine Glucose (UA) Urine Ketones Urine Blood Urine Nitrate Urine Bilirubin Urine Urobilinogen Ur Leukocyte Esterase Urine WBC (Auto) Ur Squamous Epith Cells Urine Opiates Screen Urine Methadone Screen Ur Barbiturates Screen Phenytoin Ur Phencyclidine Scrn Ur Amphetamines Screen U Benzodiazepines Scrn U Oth Cocaine Metabols U Cannabinoids Screen Alcohol, Quantitative Attending/Attestation - Attestation I have personally seen and examined this patient.: Yes I have fully participated in the care of the patient.: Yes I have reviewed all pertinent clinical information: Yes Notes (Text): Patient seen, examined and case discussed with day-time resident. Patient is known alcoholic, with alcohol abuse, with known seizure disorder, unclear if related to alcohol withdrawal or not, who has had multiple emergency room visits for his chronic alcoholism. Patient had multiple tonic-clonic seizures today noted in the ambulance as well as in the emergency room today. Patient takes phenobarbital and dilantin but admits he does not take it consistently every day. Patient was recently hospitalized for chest pain earlier this december,: negative ROMis and echocardiogram completed. Abnormal EKG on admission concern for ST elevation-->ED reviewed with cardiology operations boardman-->Stable for telemetry Assessment/Plan 1. Alcohol abuse Alcohol intoxication * will d/c Librium taper-->start Ativan 1mg IV 4H PRN alcohol withdrawal, ativan 2mg IV Q2H PRN seizure activity * Received banana bag in the ED-->continue banana bag on the floor * CIWA precautions * Seizure precautions * f/u abdominal US check for liver cirrhosis given chronic alcohol use; last available Ab US was from 2014 * Patient is intoxicated but conversant at bedside. * Elevated alcohol level * UDS: +barbs (home med), +Benzos (given in ED) 2. Seizure disorder * seizure precautions * in ED patient was given 1 gm Fosphenytoin, 2mg Ativan IV * CT head: negative for acute bleed, tumor, acute disease processes * Hx of noncompliance. Patient takes Dilantin/phenobarbital (last use 01/11) as outpatient. * Dilantin level is low, resume dilantin 100mg PO TID * pending phenobarbital level--> Phenobarbital 16.5mg PO BID * will d/c Librium taper-->start Ativan 1mg IV Q4 PRN alcohol withdrawal 3. Abnormal EKG * monitor on telemetry * Prolonged QT >450 on EKG in ED * monitor Magnesium and Potassium level; potassium at 3.7 and Mg 1.7 * Cardio: Dr. Painting operations boardman help appreciated * Aspirin 325mg PO stat, Aspirin 81mg PO daily * Check lipid panel, a1c, and TSH in AM 4. Abdominal Pain (LLQ pain on exam), constipation history * On my physical exam, patient noted mild rebound on LLQ, no guarding, no peritoneal signs * Ordered for f/u CT Abdomen/pelvis PO/IV contrast 5. Prophylactic care * Seizure precautions * Heparin 5,000 SC Q12H * Protonix 40mg PO QDaily
[2018-01-13 15:04] LABS: B-TYPE NATRIURETIC PEPTIDE 43.3 pg/mL (0-900); CK-MB 1.67 ng/mL (0.0-3.38)
[2018-01-13 15:11] LABS: BARBITURATES, UR POSITIVE (NEGATIVE); BENZODIAZEPINES, UR POSITIVE (NEGATIVE)
[2018-01-13] MEDS ORDERED: Iohexol 240 (50 ml) ONE (15:15)
[2018-01-13] MEDS ORDERED: Lactated Ringer's 1,000 ML ONE (15:15)
[2018-01-13] MEDS ORDERED: Iodixanol 320 MG/ML 100 ML BOTTLE IV ONE (16:53)
[2018-01-13 18:16] VITALS: RESP 20
--- NOTE | 2018-01-13 18:20 | CT ---
PROCEDURE: CT scan abdomen pelvis dated 01/13/2018 HISTORY: Left lower quadrant pain COMPARISON: No prior TECHNIQUE: Contiguous axial images of the abdomen and pelvis performed following oral and intravenous injection of approximately 100 cc Visipaque 320 contrast material. Additional 2 dimensional sagittal and coronal reformats generated. Radiation dose: Total exam DLP = This CT exam was performed using one or more of the following dose reduction techniques: Automated exposure control, adjustment of the mA and/or kV according to patient size, and/or use of iterative reconstruction technique. . FINDINGS: LOWER THORAX: Minor bibasilar atelectasis and or scarring. Lung bases are otherwise clear without infiltrate effusion or pneumothorax. . Eventration of the right hemidiaphragm felt be present. There is medium-sized hiatal hernia with moderate wall thickening of the distal esophagus which could be due to protrusion gastric mucosa however the possibility of esophagitis or other intrinsic/invasive wall lesion including esophageal carcinoma not excluded. LIVER: Liver is enlarged measuring 22 cm in CC dimension. Moderate diffuse fatty hepatic infiltration. No obvious hepatic mass or collection however note made of small calcifications left lobe liver. . Portal and splenic veins are opacified. GALLBLADDER AND BILE DUCTS: Status post cholecystectomy PANCREAS: No obvious pancreatic masses or collections. No significant pancreatic ductal dilatation. SPLEEN: Spleen is mildly enlarged measuring nearly 13 cm in AP dimension. No obvious splenic mass or collection. Tiny splenule adjacent to the mid inferior main body of the spleen. ADRENALS: Slightly nodular appearing left adrenal gland. KIDNEYS AND URETERS: The kidneys demonstrate relatively symmetric nephrograms. No evidence of nephrolithiasis. Prominent bilateral extrarenal pelves. BLADDER: The urinary bladder is physiologically distended. Minimal wall thickening likely due to on move mild muscular hypertrophy. REPRODUCTIVE: Prostate gland measures approximately 3.4 cm in transverse dimension APPENDIX: Appendix is not seen with any certainty on this exam. BOWEL: Evaluation of the bowel is limited due to incomplete opacification. The stomach is incompletely distended which presumably in part accounts for thick-walled appearance. Possibility of a gastritis or other intrinsic/invasive wall lesion not excluded. Visualized loops small bowel exhibit normal contour and caliber. No evidence of acute mechanical small bowel obstruction. Stool and air seen throughout the large bowel. There are multiple colonic diverticula the bulk of which arise from the sigmoid colon. . There is a subtle on minimal irregular wall thickening involving a short segment of the distal descending/sigmoid colon. Findings could be due to some combination of incomplete distention, peristalsis and chronic muscular hypertrophy related to diverticulosis however the possibility of an early mild acute diverticulitis cannot be excluded. Clinical correlation recommended. PERITONEUM: No gross free intraperitoneal air. No evidence of free or loculated fluid collections. There is a metallic clip in the left parasagittal inferior pelvis likely related to prior gallbladder surgery. Small bilateral fat containing inguinal hernias. LYMPH NODES: Unremarkable. No enlarged lymph nodes. VASCULATURE: No evidence of abdominal aortic or iliac artery aneurysms. Minor calcified atherosclerotic plaque along the abdominal aorta and iliac arteries. BONES: Mild multilevel degenerative spondylosis of the lower thoracic and lumbar spine. OTHER FINDINGS: None. IMPRESSION: Hepatomegaly. Moderate fatty hepatic infiltration. Few small calcifications seen within left lobe liver nonspecific; rule out prior exposure to granulomatous disease process. There is a small to medium-sized hiatal hernia with wall thickening of the distal esophagus that could be due to protrusion of gastric mucosa. Possibility of esophagitis or other intrinsic/invasive wall lesion not excluded. There is also wall thickening of the stomach which may also be due to incomplete distention however gastritis or other intrinsic/invasive wall lesion cannot be excluded. Consider followup endoscopy for further evaluation. Diverticulosis. Mild irregular wall thickening of a short segment of the distal descending/sigmoid colon which may in part be due to incomplete distention, peristalsis and chronic muscular hypertrophy related to diverticulosis however the possibility of a mild acute diverticulitis cannot be excluded. Clinical correlation recommended
[2018-01-13 20:12] LABS: CK-MB 1.35 ng/mL (0.0-3.38)
--- NOTE | 2018-01-13 20:23 | US ---
EXAM: US Abdomen Complete CLINICAL HISTORY: 57 years old, male; Abnormal findings; Abnormal lab test; Other: Lft alcohol abuse; Prior surgery; Surgery date: 6+ months; Surgery type: Gallbladder; Additional info: Lft, alcohol abuse TECHNIQUE: Real-time ultrasound of the abdomen (complete) with image documentation. COMPARISON: US - ABDOMEN LIMITED 2015-09-27 14:41 FINDINGS: Liver: Fatty infiltration. Small calcification. No intrahepatic ductal dilatation. Gallbladder: Cholecystectomy. Common bile duct: No dilatation. No stones. Pancreas: Unremarkable as visualized. Kidneys: Normal echogenicity. Small vascular calcification vs calculus within LEFT kidney. Mild pelvocaliectasis of RIGHT kidney. Spleen: No splenomegaly. Aorta: Unremarkable. No aneurysm. Inferior vena cava: Unremarkable. Free fluid: No significant free fluid. IMPRESSION: 1. Hepatic steatosis. 2. Mild pelvocaliectasis of RIGHT kidney. 3. Incidental/non-acute findings are described above.
[2018-01-14 07:35] LABS: BASO % 0.9 % (0.0-2.0); EOS # 0.1 K/uL (0.0-0.7); EOS % 2.8 % (0.0-4.0); HEMOGLOBIN 11.6 g/dL (12.0-18.0); LYMPH # 0.9 K/uL (1.0-4.3); LYMPH % 24.1 % (20.0-40.0); MEAN CELL VOLUME 102.2 fL (80.0-94.0); MEAN CORPUSCULAR HEMOGLOBIN 35.2 pg (27.0-31.0); MEAN CORPUSCULAR HGB CONC 34.5 g/dL (33.0-37.0); MEAN PLATELET VOLUME 9.3 fL (7.2-11.7); MONO # 0.6 K/uL (0.0-0.8); MONO % 14.5 % (0.0-10.0); NEUT # 2.2 K/uL (1.8-7.0); NEUT % 57.7 % (50.0-75.0); NRBC % 0.2 % (0.0-2.0); RBC 3.29 Mil/uL (4.40-5.90); RED CELL DISTRIBUTION WIDTH 15.4 % (11.5-14.5); WHITE BLOOD COUNT 3.9 K/uL (4.8-10.8)
[2018-01-14 07:42] LABS: ALB/GLOB RATIO 0.7 (1.0-2.1); ALBUMIN 3.3 g/dL (3.5-5.0); ALT/SGPT 29 U/L (21-72); AST/SGOT 118 U/L (17-59); BLOOD UREA NITROGEN 6 mg/dL (9-20); CALCIUM 8.5 mg/dl (8.6-10.4); GFR AFRICAN-AMERICAN > 60; GFR NON-AFRICAN AMERICAN > 60; HDL CHOLESTEROL 48 mg/dL (30-70)
[2018-01-14 07:53] LABS: LDL CHOLESTEROL 102 mg/dL (0-129)
[2018-01-14] MEDS ORDERED: Folic Acid 1 MG, Thiamine 100 MG, Multivitamin (MVI) 10 ML in Sodium Chloride 0.9% 1,00... IV SCH (08:00)
[2018-01-14] MEDS: Pantoprazole 40 mg EC Tab PO SCH (10:33)
[2018-01-14] MEDS: Magnesium Sulfate 1 gm in D5W 1 GM/100 ML BAG IVPB SCH ×2 (10:40→10:41)
[2018-01-14] MEDS ORDERED: Lactated Ringer's 1,000 ML IV SCH (10:51)
--- NOTE | 2018-01-14 11:10 | CP.PCM.PN ---
Addendum entered and electronically signed by Raquel Oro DO 01/14/18 11:17: PE: for chest and upper extremities Pain on palpation on left chest and Left AC joint. Patient has full range of motion of left upper extremities. Assessment and Plan: Psych Consult: Dr. Membreno Original Note: <Raquel Oro - Last Filed: 01/14/18 11:11> Subjective - Date & Time of Evaluation Date of Evaluation: 01/14/18 Time of Evaluation: 11:02 - Subjective Subjective: Progress note for Dr. Rich Patient states he still has chest discomfort. Patient does not show tremors today. Patient appears to be more alert than on admission. Patient denies fever , cough, shortness of breath, dysuria, chills, seizures, urinary incontinence, bowel movements. Patient admits to abdominal pain on LLQ, chest pain ( musculoskeletal), and left shoulder pain. Objective - Vital Signs/Intake and Output Vital Signs (last 24 hours): Temp Pulse Resp BP Pulse Ox 97.8 F 85 20 133/80 99 01/14/18 07:20 01/14/18 07:20 01/14/18 07:20 01/14/18 07:20 01/14/18 07:20 Intake and Output: 01/14/18 01/14/18 06:59 18:59 Intake Total 1200 Output Total 950 Balance 250 - Medications Medications: Current Medications Aspirin (Aspirin Chewable) 81 mg PO DAILY [facility] Last Admin: 01/14/18 10:33 Dose: 81 mg Ciprofloxacin (Cipro) 500 mg PO BID [facility] PRN Reason: Protocol Stop: 01/24/18 18:01 Docusate Sodium (Colace) 100 mg PO BID [facility] Heparin Sodium (Porcine) (Heparin) 5,000 units SC Q12 [facility] Last Admin: 01/14/18 10:33 Dose: 5,000 units Magnesium Sulfate/Dextrose (Magnesium Sulfate 1 Gm/100 Ml D5w) 1 gm in 100 mls @ 200 mls/hr IVPB Q30M [facility] Stop: 01/14/18 11:29 Last Admin: 01/14/18 10:41 Dose: 200 mls/hr Lactated Ringer's (Lactated Ringer's) 1,000 mls @ 140 mls/hr IV .Q7H9M [facility] Folic Acid 1 mg/ Thiamine HCl 100 mg/ Multivitamins/Vitamin C 10 ml/ Sodium Chloride 1,011.2 mls @ 50 mls/hr IV DAILY [facility] Lorazepam (Ativan) 2 mg IVP Q2H PRN PRN Reason: Seizure activity Lorazepam (Ativan) 1 mg IVP Q4H PRN PRN Reason: Symptoms of alcohol withdrawl Metronidazole (Flagyl) 500 mg PO Q8 [facility] PRN Reason: Protocol Stop: 01/24/18 14:01 Pantoprazole Sodium (Protonix Ec Tab) 40 mg PO DAILY [facility] Last Admin: 01/14/18 10:33 Dose: 40 mg Phenobarbital (Phenobarbital Tab) 16.2 mg PO BID [facility] Last Admin: 01/13/18 18:48 Dose: 16.2 mg Phenytoin Sodium (Dilantin) 100 mg PO TID [facility] Last Admin: 01/14/18 10:33 Dose: 100 mg Saccharomyces Boulardii (Florastor) 250 mg PO ACHS [facility] - Labs Labs: 01/14/18 06:37 01/14/18 06:37 - Constitutional Appears: Non-toxic, No Acute Distress, In Acute Distress - Head Exam Head Exam: NORMAL INSPECTION, NORMOCEPHALIC - Eye Exam Eye Exam: Normal appearance Pupil Exam: NORMAL ACCOMODATION, PERRL - ENT Exam ENT Exam: Mucous Membranes Moist, Normal Exam - Respiratory Exam Respiratory Exam: NORMAL BREATHING PATTERN - Cardiovascular Exam Cardiovascular Exam: REGULAR RHYTHM, +S1, +S2 - GI/Abdominal Exam GI & Abdominal Exam: Soft, Tenderness (LLQ pain on light and deep palpation). absent: Firm, Guarding, Rigid, Hypoactive Bowel Sounds - Extremities Exam Extremities Exam: Full ROM (lower extremities 4/5 muscle strength bilaterally). absent: Pedal Edema - Back Exam Back Exam: Full ROM, NORMAL INSPECTION. absent: paraspinal tenderness - Neurological Exam Neurological Exam: Awake, CN II-XII Intact - Psychiatric Exam Psychiatric exam: Normal Affect, Normal Mood - Skin Skin Exam: Dry, Normal Color, Warm Additional comments: abrasion on back of hand at base of 5th MT Assessment and Plan - Assessment and Plan (Free Text) Assessment: 57M presents with seizures en route to ED via BLS, and in ER. Patient was noted to be post-ictal on arrival and in ED. 1. Alcohol abuse alcohol intoxication Librium taper, discontinued LR @130cc/hr seizure precautions Abdominal US: liver has fatty infiltration, small calcification. no intrahepatic ductal dilatation. Hepatic steatosis, mild pelvocaliectasis of right kidney 2. seizure disorder, one witnessed in ED, one in BLS en route to ED seizure precautions in ED patient was given 1 gm Fosphenytoin, 2mg Ativan IV CT head: negative for acute bleed, tumor, acute disease processes Hx of noncompliance. Patient takes Dilantin/phenobarbital (last use 01/11) Dilantin level is low, resume dilantin 100mg PO TID and f/u phenobarbital level and restart Phenobarbital 16.5mg PO BID as necessary 3. Abnormal EKG Ativan monitor on telemetry Prolonged QT >450 on EKG in ED monitor Magnesium and Potassium level Cardio: Dr. Painting 4. Diverticulitis of descending colon, Abdominal Pain (LLQ pain on exam), constipation history CT Abdomen/pelvis PO/IV contrast: descending diverticulitis (irregular wall thickening), diverticulosis, esophageal hernia 5. Prophylactic care Seizure precautions Heparin 5,000 SC Q12H Protonix 40mg IV QD Raquel Oro DO PGY1 <Ana Rich V - Last Filed: 01/14/18 17:36> Objective - Vital Signs/Intake and Output Vital Signs (last 24 hours): Temp Pulse Resp BP Pulse Ox 98.1 F 84 20 130/80 100 01/14/18 15:04 01/14/18 15:04 01/14/18 15:04 01/14/18 15:04 01/14/18 15:04 Intake and Output: 01/14/18 01/14/18 06:59 18:59 Intake Total 1200 400 Output Total 950 Balance 250 400 - Medications Medications: Current Medications Amoxicillin/Clavulanate Potassium (Augmentin 875 Mg-125 Mg Tab) 1 tab PO Q12H [facility] PRN Reason: Protocol Stop: 01/24/18 13:01 Last Admin: 01/14/18 13:00 Dose: 1 tab Aspirin (Aspirin Chewable) 81 mg PO DAILY [facility] Last Admin: 01/14/18 10:33 Dose: 81 mg Docusate Sodium (Colace) 100 mg PO BID [facility] Last Admin: 01/14/18 17:15 Dose: 100 mg Heparin Sodium (Porcine) (Heparin) 5,000 units SC Q12 [facility] Last Admin: 03/27/18 10:33 Dose: 5,000 units Lactated Ringer's (Lactated Ringer's) 1,000 mls @ 140 mls/hr IV .Q7H9M [facility] Last Admin: 01/14/18 11:00 Dose: Not Given Folic Acid 1 mg/ Thiamine HCl 100 mg/ Multivitamins/Vitamin C 10 ml/ Sodium Chloride 1,011.2 mls @ 50 mls/hr IV DAILY [facility] Last Admin: 01/14/18 11:54 Dose: 50 mls/hr Lorazepam (Ativan) 2 mg IVP Q2H PRN PRN Reason: Seizure activity Lorazepam (Ativan) 1 mg IVP Q4H PRN PRN Reason: Symptoms of alcohol withdrawl Pantoprazole Sodium (Protonix Ec Tab) 40 mg PO DAILY [facility] Last Admin: 01/14/18 10:33 Dose: 40 mg Phenobarbital (Phenobarbital Tab) 16.2 mg PO BID [facility] Last Admin: 01/14/18 17:14 Dose: 16.2 mg Phenytoin Sodium (Dilantin) 100 mg PO TID [facility] Last Admin: 01/14/18 17:13 Dose: 100 mg Saccharomyces Boulardii (Florastor) 250 mg PO ACHS [facility] Last Admin: 01/14/18 17:00 Dose: 250 mg - Labs Labs: 01/14/18 06:37 01/14/18 06:37 Attending/Attestation - Attestation I have personally seen and examined this patient.: Yes I have fully participated in the care of the patient.: Yes I have reviewed all pertinent clinical information, including history, physical exam and plan: Yes Notes (Text): Patient seen, examined and case discussed with day-time resident. Patient seen this morning with resident. Patient has point tenderness over the AC joint, which is elicited when I move his left upper extremity up and down at flexion and extension. patient does not have point tenderness over the chest nor sternum. Patient's cardiac enzymes are negative. Patient reports mild LLQ pain. Patient reports he had bowel movement earlier today. Given CT scan for diverticulosis, and cannot rule out diverticulitis, will start Augmentin 875-125mg PO 1 tab PO BID for ten days to cover. Will refrain from giving Flagyl given adverse reaction with alcohol. Patient does not have tremors, no apparent tongue fasciulations. He appears better and conversant compared to yesterday. We have asked psychiatry to evaluate him since his mcclendon with alcoholism is chronic in nature and the patient is aware of the continued risks if he continues to drink as it poses to his body. Assessment/Plan 1. Alcohol abuse Alcohol intoxication * Start Ativan 1mg IV 4H PRN alcohol withdrawal, ativan 2mg IV Q2H PRN seizure activity * Patient has not received IV ativan PRNs * Will switch to PO ativan taper * Received banana bag in the ED-->continue banana bag on the floor * CIWA precautions * Seizure precautions * Abdominal US (01/13/18): hepatic steatosis, mild pelvocaliectasis of right kidney * CT abdomen/pelvis (01/13/18): hepatomegaly, moderate fatty hepatic infiltration. Few small calcifications seen within left lobe liver nonspecific. Small to medium-size hiatal hernia with wall thickening of the distal esopahgus that could be due to protrusion of gastric mucosa, Wall thickening of the stomach due to incomplete distension. Diverticulosis. Mild irregular wall thickening of a short segment of distal descending/sigmoid. (further findings per report) * Patient is intoxicated but conversant at bedside. * Elevated alcohol level * UDS: +barbs (home med), +Benzos (given in ED) 2. Seizure disorder * seizure precautions * in ED patient was given 1 gm Fosphenytoin, 2mg Ativan IV on admission * CT head: negative for acute bleed, tumor, acute disease processes * Hx of noncompliance. Patient takes Dilantin/phenobarbital (last use 01/11) as outpatient. * Dilantin level is low, resume dilantin 100mg PO TID * Phenobarbital level is low--> c/w Phenobarbital 16.5mg PO BID * start Ativan 1mg IV Q4 PRN alcohol withdrawal * Start Ativan 2mg IV Q2H PRN seizure activity 3. Abnormal EKG * Cardio: Dr. Painting environmental scientist help appreciated * Discussed with cardiology, this is not [facility] [place]. * JACINTO X3: negative * Aspirin 325mg PO stat, Aspirin 81mg PO daily * monitor on telemetry * Prolonged QT >450 on EKG in ED * Lipid panel: T, Cholestrol: 170, LDL: 102, HDL; 48 * hgba1c: 5.6 * TSH: 3.19, Free T4: 0.89 4. Abdominal Pain * CT abdomen/pelvis (01/13/18): hepatomegaly, moderate fatty hepatic infiltration. Few small calcifications seen within left lobe liver nonspecific. Small to medium-size hiatal hernia with wall thickening of the distal esopahgus that could be due to protrusion of gastric mucosa, Wall thickening of the stomach due to incomplete distension. Diverticulosis. Mild irregular wall thickening of a short segment of distal descending/sigmoid. (further findings per report) * Abdominal US (01/13/18): hepatic steatosis, mild pelvocaliectasis of right kidney * Will start Augumentin 875-125mg PO BID for ten days for cover for diverticulitis 5. Prophylactic care * Seizure precautions * Heparin 5,000 SC Q12H * Protonix 40mg PO QDaily
[2018-01-14] MEDS: Folic Acid 1 MG, Thiamine 100 MG, Multivitamin (MVI) 10 ML in Sodium Chloride 0.9% 1,00... IV SCH (11:54)
[2018-01-14] MEDS: Saccharomyces Boulardi 250 mg Cap PO SCH ×3 (12:01→21:20)
[2018-01-14] MEDS: Amoxicillin-Clav 875-125 mg Tab PO SCH (13:00)
--- NOTE | 2018-01-14 16:03 | PCM.PSYCH ---
Initial Psychiatric Evaluation - Initial Psychiatric Evaluation Type of Admission: Voluntary Legal Status: Capacity Chief Complaint (in patient's own words): History of alcohol use disorder History of Present Illness and Precipitating Events: This is a 57 year old male, who is unemployed and lives with his sister, with a history of HTN, seizure disorder, and alcohol use disorder, who is referred to the Psychiatric Service due to his history of alcohol use disorder. Patient came to ED on 01/13/2018 following a seziure episode. Upon arrival to ED, patient's alcohol level was 254. Patient states his last drink reported was 1 week ago. Patient stated he consumes 2.5 pints of vodka per day and has been drinking for years. Patient denied illicit drug use and tobacco use. Patient complains of withdrawal symptoms including sweating and tremors. Patient admits to previous hospitalizations for for alcohol detoxification in the past. He has also attended inpatient rehab in [place] for 1 year and [place] for 2 years. Patient denies feelings of anxiety or depression. Patient denies suicidal ideation, visual or auditory hallucinations. PMHx: HTN, Seizure Disorder, Alcohol Use Disorder Medications: Dilantin 100mg TID, Phenobarbital 16.2mg BID Allergies: Denies PSH: Cholecystectomy Social: Lives with his sister and neices. Denies tobacco use. Denies illicit drug use. Consumes alcohol 2.5 pints per day. Current Medications: Active Medications Generic Name Dose Route Start Last Admin Trade Name Freq PRN Reason Stop Dose Admin Amoxicillin/Clavulanate Potassium 1 tab 01/14/18 13:00 01/14/18 13:00 Augmentin 875 Mg-125 Mg Tab PO 01/24/18 13:01 1 tab Q12H [facility] Administration Protocol Aspirin 81 mg 01/14/18 10:00 01/14/18 10:33 Aspirin Chewable PO 81 mg DAILY [facility] Administration Docusate Sodium 100 mg 01/14/18 18:00 Colace PO BID [facility] Heparin Sodium (Porcine) 5,000 units 01/13/18 22:00 01/14/18 10:33 Heparin SC 5,000 units Q12 [facility] Administration Lactated Ringer's 1,000 mls @ 140 mls/hr 01/14/18 10:51 01/14/18 11:00 Lactated Ringer's IV Not Given .Q7H9M [facility] Folic Acid 1 mg/ Thiamine HCl 1,011.2 mls @ 50 mls/hr 01/14/18 11:00 11:54 100 mg/ Multivitamins/Vitamin IV 50 mls/hr C 10 ml/ Sodium Chloride DAILY [facility] Administration Lorazepam 2 mg 01/13/18 13:51 Ativan IVP Q2H PRN Seizure activity Lorazepam 1 mg 01/13/18 20:12 Ativan IVP Q4H PRN Symptoms of alcohol withdrawl Pantoprazole Sodium 40 mg 01/14/18 10:00 01/14/18 10:33 Protonix Ec Tab PO 40 mg DAILY [facility] Administration Phenobarbital 16.2 mg 01/13/18 18:00 01/14/18 10:00 Phenobarbital Tab PO 16.2 mg BID [facility] Administration Phenytoin Sodium 100 mg 01/14/18 10:00 01/14/18 14:30 Dilantin PO 100 mg TID [facility] Administration Saccharomyces Boulardii 250 mg 01/14/18 11:30 01/14/18 12:01 Florastor PO 250 mg ACHS [facility] Administration Past Psychiatric History - Past Psychiatric History History of ETOH/Drug Use: Alcohol Use Disorder. History of Family Illness: Family history of seizure disorder. Pertinent Medical Hx (Current Medical&Sleep Prob, Allergies): Allergies Allergy/AdvReac Type Severity Reaction Status Date / Time No Known Allergies Allergy Verified 01/13/18 08:09 Phenobarbital [PHENobarbital Tab] 16.2 mg PO BID tab 01/06/18 Phenytoin, Extended [Dilantin] 100 mg PO TID cer 01/06/18 Review of Systems - Review of Systems All systems: reviewed and no additional remarkable complaints except - Psychiatric Psychiatric: absent: Anxiety, Auditory Hallucinations, Depression, Difficulty Concentrating, Suicidal Ideation, Visual Hallucinations, Tactile Hallucinations Mental Status Examination - Personal Presentation Personal Presentation: Looks older than stated age - Affect Affect: Flat - Motor Activity Motor Activity: Calm - Reliability in Providing Information Reliability in Providing Information: Poor, due to alteration in thoughts - Speech Speech: Organized - Mood Mood: Neutral - Formal Thought Process Formal Thought Process: No Impairment - Obsessions/Compulsions Obsessions: No Compulsions: No - Cognitive Functions Orientation: Person, Place, Situation, Time Sensorium: Alert Attention/Concentration: Attentive Abstract Thinking: [place] Estimate of Intelligence: Below average Judgement: Imparied, as evidence by: Poor judgement, Intact, as evidence by: Insight regarding need for hospitalization - Risk Risk: Seizure, Withdrawal - Strength & Assets Inventory Strength & Assets Inventory: Family support DSM 5 DX - DSM 5 DSM 5 Diagnosis: Alcohol use disorder Severe Alcohol withdrawal - Recommended/Plan of Treatment Treatment Recommendations and Plan of Treatment: Alcohol use disorder Severe Monitor signs and symptoms Use IN for abstinence Alcohol withdrawal CBT Psychoeducation Supportive therapy, individual therapy Use IN for abstinence Continue Ativan taper Pt psychiatrically stable and clear for discharge. - Smoking Cessation Smoking Cessation Initiated: No
[2018-01-14] MEDS: Lactated Ringer's 1,000 ML IV SCH (17:45)
[2018-01-15] MEDS: Amoxicillin-Clav 875-125 mg Tab PO SCH ×2 (00:54→13:47)
[2018-01-15 07:22] LABS: HEMOGLOBIN 12.8 g/dL (12.0-18.0); MEAN CELL VOLUME 102.4 fL (80.0-94.0); MEAN CORPUSCULAR HEMOGLOBIN 35.1 pg (27.0-31.0); MEAN CORPUSCULAR HGB CONC 34.3 g/dL (33.0-37.0); MEAN PLATELET VOLUME 8.9 fL (7.2-11.7); RBC 3.64 Mil/uL (4.40-5.90); RED CELL DISTRIBUTION WIDTH 15.3 % (11.5-14.5)
--- NOTE | 2018-01-15 07:41 | CP.PCM.PN ---
<Raquel Oro - Last Filed: 01/15/18 15:05> Subjective - Date & Time of Evaluation Date of Evaluation: 01/15/18 Time of Evaluation: 09:24 - Subjective Subjective: Progress Note Patient seen and examined at bedside. Patient said he did not sleep well overnight. Patient states he had cold sweats at night. Vitals stable, no fever noted overnight. Patient has no tremors, appears as alert as yesterday. Patient denies shortness of breath, incontinence, muscle weakness, numbness, tingling Objective - Vital Signs/Intake and Output Vital Signs (last 24 hours): Temp Pulse Resp BP Pulse Ox 98 F 83 20 138/91 H 97 01/15/18 04:55 01/15/18 04:55 01/15/18 04:55 01/15/18 04:55 01/14/18 23:45 Intake and Output: 01/15/18 01/15/18 06:59 18:59 Intake Total 1540 Output Total 300 Balance 1240 - Medications Medications: Current Medications Amoxicillin/Clavulanate Potassium (Augmentin 875 Mg-125 Mg Tab) 1 tab PO Q12H [facility] PRN Reason: Protocol Stop: 01/24/18 13:01 Last Admin: 01/15/18 00:54 Dose: 1 tab Aspirin (Aspirin Chewable) 81 mg PO DAILY [facility] Last Admin: 01/14/18 10:33 Dose: 81 mg Docusate Sodium (Colace) 100 mg PO BID [facility] Last Admin: 01/14/18 17:15 Dose: 100 mg Heparin Sodium (Porcine) (Heparin) 5,000 units SC Q12 [facility] Last Admin: 01/14/18 21:21 Dose: 5,000 units Folic Acid 1 mg/ Thiamine HCl 100 mg/ Multivitamins/Vitamin C 10 ml/ Sodium Chloride 1,011.2 mls @ 50 mls/hr IV DAILY [facility] Last Admin: 01/14/18 11:54 Dose: 50 mls/hr Lactated Ringer's (Lactated Ringer's) 1,000 mls @ 75 mls/hr IV .[id number] [facility] Last Admin: 01/14/18 17:45 Dose: Not Given Lorazepam (Ativan) 2 mg IVP Q2H PRN PRN Reason: Seizure activity Lorazepam (Ativan) 1 mg PO Q4 [facility] PRN Reason: Taper Stop: 01/17/18 17:59 Last Admin: 01/15/18 04:53 Dose: 1 mg Pantoprazole Sodium (Protonix Ec Tab) 40 mg PO DAILY [facility] Last Admin: 01/14/18 10:33 Dose: 40 mg Phenobarbital (Phenobarbital Tab) 16.2 mg PO BID [facility] Last Admin: 01/14/18 17:14 Dose: 16.2 mg Phenytoin Sodium (Dilantin) 100 mg PO TID [facility] Last Admin: 01/14/18 17:13 Dose: 100 mg Saccharomyces Boulardii (Florastor) 250 mg PO ACHS [facility] Last Admin: 01/14/18 21:20 Dose: 250 mg - Labs Labs: 01/15/18 07:13 01/14/18 06:37 - Constitutional Appears: Non-toxic, No Acute Distress, Unkempt - Head Exam Head Exam: ATRAUMATIC, NORMAL INSPECTION, NORMOCEPHALIC - Eye Exam Eye Exam: EOMI, Normal appearance - ENT Exam ENT Exam: Mucous Membranes Moist, Normal Exam - Neck Exam Neck Exam: Full ROM, Normal Inspection - Respiratory Exam Respiratory Exam: Clear to Ausculation Bilateral, NORMAL BREATHING PATTERN. absent: Accessory Muscle Use, Respiratory Distress - Cardiovascular Exam Cardiovascular Exam: REGULAR RHYTHM, +S1, +S2 - GI/Abdominal Exam GI & Abdominal Exam: Soft, Tenderness Additional comments: LLQ to deep palpation - Extremities Exam Extremities Exam: Full ROM. absent: Pedal Edema - Back Exam Back Exam: Full ROM, NORMAL INSPECTION - Neurological Exam Neurological Exam: Alert, Awake, CN II-XII Intact, Oriented x3 - Psychiatric Exam Psychiatric exam: Normal Affect, Normal Mood - Skin Skin Exam: Dry, Intact, Normal Color, Warm Assessment and Plan - Assessment and Plan (Free Text) Assessment: 57M presents with seizures en route to ED via BLS, and in ER. Patient was noted to be post-ictal on arrival and in ED. 1. Alcohol abuse alcohol intoxication Librium taper, discontinued LR @75cc/hr seizure precautions Abdominal US: liver has fatty infiltration, small calcification. no intrahepatic ductal dilatation. Hepatic steatosis, mild pelvocaliectasis of right kidney 2. seizure disorder, one witnessed in ED, one in BLS en route to ED seizure precautions in ED patient was given 1 gm Fosphenytoin, 2mg Ativan IV CT head: negative for acute bleed, tumor, acute disease processes Hx of noncompliance. Patient takes Dilantin/phenobarbital (last use 01/11) Dilantin level is low, resume dilantin 100mg PO TID and f/u phenobarbital level and restart Phenobarbital 16.5mg PO BID as necessary 3. Abnormal EKG Ativan monitor on telemetry Prolonged QT >450 on EKG in ED monitor Magnesium and Potassium level Cardio: Dr. Painting 4. Diverticulitis of descending colon, Abdominal Pain (LLQ pain on exam), constipation history CT Abdomen/pelvis PO/IV contrast: descending diverticulitis (irregular wall thickening), diverticulosis, esophageal hernia GI consult: Dr. Amaral 5. Prophylactic care Seizure precautions Heparin 5,000 SC Q12H Protonix 40mg IV QD Raquel Oro DO PGY1 <Ana Rich V - Last Filed: 01/15/18 17:39> Objective - Vital Signs/Intake and Output Vital Signs (last 24 hours): Temp Pulse Resp BP Pulse Ox 97.9 F 85 20 144/91 H 100 01/15/18 07:00 01/15/18 07:05 01/15/18 07:00 01/15/18 07:00 01/15/18 07:00 Intake and Output: 01/15/18 01/15/18 06:59 18:59 Intake Total 1540 850 Output Total 300 Balance 1240 850 - Medications Medications: Current Medications Amoxicillin/Clavulanate Potassium (Augmentin 875 Mg-125 Mg Tab) 1 tab PO Q12H [facility] PRN Reason: Protocol Stop: 01/24/18 13:01 Last Admin: 01/15/18 13:47 Dose: 1 tab Aspirin (Aspirin Chewable) 81 mg PO DAILY [facility] Last Admin: 01/15/18 09:17 Dose: 81 mg Docusate Sodium (Colace) 100 mg PO BID [facility] Last Admin: 01/15/18 09:18 Dose: 100 mg Heparin Sodium (Porcine) (Heparin) 5,000 units SC Q12 [facility] Last Admin: 01/15/18 09:18 Dose: 5,000 units Folic Acid 1 mg/ Thiamine HCl 100 mg/ Multivitamins/Vitamin C 10 ml/ Sodium Chloride 1,011.2 mls @ 50 mls/hr IV DAILY [facility] Last Admin: 01/15/18 09:24 Dose: 50 mls/hr Lactated Ringer's (Lactated Ringer's) 1,000 mls @ 75 mls/hr IV .[id number] [facility] Last Admin: 01/14/18 17:45 Dose: Not Given Lorazepam (Ativan) 2 mg IVP Q2H PRN PRN Reason: Seizure activity Lorazepam (Ativan) 1 mg PO Q4 [facility] PRN Reason: Taper Stop: 01/17/18 17:59 Last Admin: 01/15/18 12:26 Dose: 1 mg Pantoprazole Sodium (Protonix Ec Tab) 40 mg PO DAILY [facility] Last Admin: 01/15/18 09:18 Dose: 40 mg Phenobarbital (Phenobarbital Tab) 16.2 mg PO BID [facility] Last Admin: 01/15/18 11:00 Dose: 16.2 mg Phenytoin Sodium (Dilantin) 100 mg PO TID [facility] Last Admin: 01/15/18 13:47 Dose: 100 mg Saccharomyces Boulardii (Florastor) 250 mg PO ACHS [facility] Last Admin: 01/15/18 12:26 Dose: 250 mg - Labs Labs: 01/15/18 07:13 01/15/18 07:13 Attending/Attestation - Attestation I have personally seen and examined this patient.: Yes I have fully participated in the care of the patient.: Yes I have reviewed all pertinent clinical information, including history, physical exam and plan: Yes Notes (Text): Patient seen, examined and case discussed with day-time resident. Patient seen this morning with resident. He appears more awake, alert, and conversant. No observed tremors. Patient reports mild LLQ pain. He reports he had a good bowel movement yesterday. Patient is on antibiotic to coverage for mild diverticulitis. Will ask for GI consult given patient reports trouble swallowing in light of the esophagitis and intrinsic/invasive wall lesion not excluded noted on CT since patient is more awake and alert. I have explained to the patient that he will need outpatient colonoscopy following resolution of diverticulitis. Patient mild tachycardic this morning. He is currently on Ativan taper given he is three days out from his last drink to monitor for any withdrawal. PO Abx switched to IV abx to cover for diverticulitis. I have spoken with the patient again given the effect alcohol will have on his entire body and changes noted on CT scan are attributed to his alcohol use. Assessment/Plan 1. Alcohol abuse Alcohol intoxication * Patient is on Day 2 of Ativan PO taper (switch from IV to PO because patient was not receiving the IV PRNs) * Received banana bag in the ED-->continue banana bag on the floor * CIWA precautions * Seizure precautions * Abdominal US (01/13/18): hepatic steatosis, mild pelvocaliectasis of right kidney * CT abdomen/pelvis (01/13/18): hepatomegaly, moderate fatty hepatic infiltration. Few small calcifications seen within left lobe liver nonspecific. Small to medium-size hiatal hernia with wall thickening of the distal esopahgus that could be due to protrusion of gastric mucosa, Wall thickening of the stomach due to incomplete distension. Diverticulosis. Mild irregular wall thickening of a short segment of distal descending/sigmoid. (further findings per report) * Patient is intoxicated but conversant at bedside. * Elevated alcohol level * UDS: +barbs (home med), +Benzos (given in ED) 2. Seizure disorder * seizure precautions * in ED patient was given 1 gm Fosphenytoin, 2mg Ativan IV on admission * CT head: negative for acute bleed, tumor, acute disease processes * Hx of noncompliance. Patient takes Dilantin/phenobarbital (last use 01/11) as outpatient. * Dilantin level is low, resume dilantin 100mg PO TID * Phenobarbital level is low--> c/w Phenobarbital 16.5mg PO BID * Ativan PO taper * c/w Ativan 2mg IV Q2H PRN seizure activity 3. Abnormal EKG * Cardio: Dr. 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 * JACINTO X3: negative * monitor on telemetry * Prolonged QT >450 on EKG in ED * Lipid panel: T, Cholestrol: 170, LDL: 102, HDL; 48 * hgba1c: 5.6 * TSH: 3.19, Free T4: 0.89 4. Diverticulitis, Abdominal Pain * CT abdomen/pelvis (01/13/18): hepatomegaly, moderate fatty hepatic infiltration. Few small calcifications seen within left lobe liver nonspecific. Small to medium-size hiatal hernia with wall thickening of the distal esopahgus that could be due to protrusion of gastric mucosa, Wall thickening of the stomach due to incomplete distension. Diverticulosis. Mild irregular wall thickening of a short segment of distal descending/sigmoid. (further findings per report) * Abdominal US (01/13/18): hepatic steatosis, mild pelvocaliectasis of right kidney * Switched to Zosyn 3.375g IV Q6 H to cover * Patient is aware he will need outpatient colonoscopy upon resolution of diverticulitis. Patient has never had a screening colonoscopy. 5. Dysphagia * reports trouble swallow reports funny feeling. denies regurgitation of foods/ liquids * Will ask for GI input in regards to dysphgia given on CT scan noting esophagitis or other intrinisc/invasive wall lession cannot be excluded. Hiatal hernia is noted on CT scan. * Risk factor: alcohol 6. Prophylactic care * Seizure precautions * Heparin 5,000 SC Q12H * Protonix 40mg PO QDaily * PT/OT evaluation
[2018-01-15] MEDS: Saccharomyces Boulardi 250 mg Cap PO SCH ×4 (07:52→22:03)
[2018-01-15 08:29] LABS: BASO % 0.7 % (0.0-2.0); EOS % 4.8 % (0.0-4.0); LYMPH % 19.4 % (20.0-40.0); MONO % 13.2 % (0.0-10.0); NEUT % 61.9 % (50.0-75.0)
[2018-01-15 08:30] LABS: EOS # 0.2 K/uL (0.0-0.7); LYMPH # 0.8 K/uL (1.0-4.3); MONO # 0.5 K/uL (0.0-0.8); NEUT # 2.5 K/uL (1.8-7.0); NRBC % 0.4 % (0.0-2.0)
[2018-01-15 09:00] LABS: ALB/GLOB RATIO 0.7 (1.0-2.1); ALBUMIN 3.4 g/dL (3.5-5.0); ALT/SGPT 19 U/L (21-72); AST/SGOT 112 U/L (17-59); BLOOD UREA NITROGEN 8 mg/dL (9-20); CALCIUM 8.8 mg/dl (8.6-10.4); GFR AFRICAN-AMERICAN > 60; GFR NON-AFRICAN AMERICAN > 60
[2018-01-15] MEDS: Pantoprazole 40 mg EC Tab PO SCH (09:18)
[2018-01-15] MEDS: Folic Acid 1 MG, Thiamine 100 MG, Multivitamin (MVI) 10 ML in Sodium Chloride 0.9% 1,00... IV SCH (09:24)
[2018-01-15] MEDS: Piperacillin/Tazobact 3.375 GM in Sodium Chloride 100 ML IVPB SCH ×2 (18:15→22:34)
--- NOTE | 2018-01-15 23:16 | CARD ---
APPROVED REPORT EKG Measurement Heart [id number] <Conclusion> Sinus tachycardia Otherwise normal ECG
--- NOTE | 2018-01-15 23:32 | CARD ---
APPROVED REPORT EKG Measurement Heart [id number] <Conclusion> Normal sinus rhythm ST elevation, consider early repolarization, pericarditis, or injury Prolonged QT Abnormal ECG
[2018-01-16] MEDS: Piperacillin/Tazobact 3.375 GM in Sodium Chloride 100 ML IVPB SCH ×3 (05:42→18:12)
[2018-01-16 07:21] LABS: BASO % 0.6 % (0.0-2.0); EOS # 0.2 K/uL (0.0-0.7); EOS % 3.5 % (0.0-4.0); HEMOGLOBIN 12.3 g/dL (12.0-18.0); LYMPH # 0.9 K/uL (1.0-4.3); LYMPH % 18.2 % (20.0-40.0); MEAN CELL VOLUME 101.8 fL (80.0-94.0); MEAN CORPUSCULAR HEMOGLOBIN 34.3 pg (27.0-31.0); MEAN CORPUSCULAR HGB CONC 33.7 g/dL (33.0-37.0); MEAN PLATELET VOLUME 8.9 fL (7.2-11.7); MONO # 0.6 K/uL (0.0-0.8); MONO % 13.6 % (0.0-10.0); NEUT % 64.1 % (50.0-75.0); NRBC % 0.1 % (0.0-2.0); RBC 3.59 Mil/uL (4.40-5.90); RED CELL DISTRIBUTION WIDTH 15.3 % (11.5-14.5); WHITE BLOOD COUNT 4.7 K/uL (4.8-10.8)
[2018-01-16] MEDS: Saccharomyces Boulardi 250 mg Cap PO SCH ×3 (08:14→18:11)
[2018-01-16] MEDS: Lactated Ringer's 1,000 ML IV SCH ×2 (08:16)
[2018-01-16] MEDS: Folic Acid 1 MG, Thiamine 100 MG, Multivitamin (MVI) 10 ML in Sodium Chloride 0.9% 1,00... IV SCH (09:10)
--- NOTE | 2018-01-16 09:18 | CP.PCM.PN ---
Subjective - Date & Time of Evaluation Date of Evaluation: 01/16/18 Time of Evaluation: 09:22 - Subjective Subjective: Progress Note for Dr. Rich Patient seen and examined. Patient denies issues overnight. Patient admits to night sweats. Patient denies coughing, nausea, vomiting, diarrhea constipation, diarrhea. Objective - Vital Signs/Intake and Output Vital Signs (last 24 hours): Temp Pulse Resp BP Pulse Ox 97.6 F 80 20 134/91 H 99 01/16/18 07:20 01/16/18 07:20 01/16/18 07:20 01/16/18 07:20 01/16/18 07:20 Intake and Output: 01/16/18 01/16/18 06:59 18:59 Intake Total 970 Output Total 1100 Balance -130 - Medications Medications: Current Medications Docusate Sodium (Colace) 100 mg PO BID [facility] Last Admin: 01/15/18 17:23 Dose: 100 mg Heparin Sodium (Porcine) (Heparin) 5,000 units SC Q12 [facility] Last Admin: 01/15/18 22:03 Dose: 5,000 units Folic Acid 1 mg/ Thiamine HCl 100 mg/ Multivitamins/Vitamin C 10 ml/ Sodium Chloride 1,011.2 mls @ 50 mls/hr IV DAILY [facility] Last Admin: 01/16/18 09:10 Dose: Not Given Lactated Ringer's (Lactated Ringer's) 1,000 mls @ 75 mls/hr IV .[id number] [facility] Last Admin: 01/16/18 08:16 Dose: 75 mls/hr Piperacillin Sod/Tazobactam (Sod 3.375 gm/ Sodium Chloride) 100 mls @ 200 mls/ hr IVPB Q6H [facility] PRN Reason: Protocol Last Admin: 01/16/18 05:42 Dose: 200 mls/hr Lorazepam (Ativan) 2 mg IVP Q2H PRN PRN Reason: Seizure activity Lorazepam (Ativan) 1 mg PO Q8 [facility] PRN Reason: Taper Stop: 01/17/18 17:59 Last Admin: 01/16/18 05:43 Dose: 1 mg Pantoprazole Sodium (Protonix Ec Tab) 40 mg PO DAILY [facility] Last Admin: 01/15/18 09:18 Dose: 40 mg Phenobarbital (Phenobarbital Tab) 16.2 mg PO BID [facility] Last Admin: 01/15/18 17:23 Dose: 16.2 mg Phenytoin Sodium (Dilantin) 100 mg PO TID [facility] Last Admin: 01/15/18 17:22 Dose: 100 mg Saccharomyces Boulardii (Florastor) 250 mg PO ACHS [facility] Last Admin: 01/16/18 08:14 Dose: 250 mg - Labs Labs: 01/16/18 07:07 01/15/18 07:13 - Additional Findings Additional findings: - Constitutional Appears: Non-toxic, No Acute Distress, Unkempt - Head Exam Head Exam: ATRAUMATIC, NORMAL INSPECTION, NORMOCEPHALIC - Eye Exam Eye Exam: EOMI, Normal appearance - ENT Exam ENT Exam: Mucous Membranes Moist, Normal Exam - Neck Exam Neck Exam: Full ROM, Normal Inspection - Respiratory Exam Respiratory Exam: Clear to Ausculation Bilateral, NORMAL BREATHING PATTERN. absent: Accessory Muscle Use, Respiratory Distress - Cardiovascular Exam Cardiovascular Exam: REGULAR RHYTHM, +S1, +S2 - GI/Abdominal Exam GI & Abdominal Exam: Soft, Tenderness Additional comments: LLQ to deep palpation - Extremities Exam Extremities Exam: Full ROM. absent: Pedal Edema - Back Exam Back Exam: Full ROM, NORMAL INSPECTION - Neurological Exam Neurological Exam: Alert, Awake, CN II-XII Intact, Oriented x3 - Psychiatric Exam Psychiatric exam: Normal Affect, Normal Mood - Skin Skin Exam: Dry, Normal Color, Warm Assessment and Plan - Assessment and Plan (Free Text) Assessment: 57M presents with seizures en route to ED via BLS, and in ER. Patient was noted to be post-ictal on arrival and in ED. 1. Alcohol abuse alcohol intoxication Librium taper, discontinued LR @75cc/hr seizure precautions Abdominal US: liver has fatty infiltration, small calcification. no intrahepatic ductal dilatation. Hepatic steatosis, mild pelvocaliectasis of right kidney 2. seizure disorder, one witnessed in ED, one in BLS en route to ED seizure precautions in ED patient was given 1 gm Fosphenytoin, 2mg Ativan IV CT head: negative for acute bleed, tumor, acute disease processes Hx of noncompliance. Patient takes Dilantin/phenobarbital (last use 01/11) Dilantin level is low, resume dilantin 100mg PO TID and f/u phenobarbital level and restart Phenobarbital 16.5mg PO BID as necessary 3. Abnormal EKG Ativan monitor on telemetry Prolonged QT >450 on EKG in ED monitor Magnesium and Potassium level Cardio: Dr. Painting 4. Diverticulitis of descending colon, Abdominal Pain (LLQ pain on exam), constipation history CT Abdomen/pelvis PO/IV contrast: descending diverticulitis (irregular wall thickening), diverticulosis, esophageal hernia GI consult: Dr. Amaral 5. Prophylactic care Seizure precautions Heparin 5,000 SC Q12H Protonix 40mg IV QD Raquel Oro DO PGY1
[2018-01-16 09:49] LABS: ALB/GLOB RATIO 0.7 (1.0-2.1); ALBUMIN 3.3 g/dL (3.5-5.0); ALT/SGPT 14 U/L (21-72); AST/SGOT 92 U/L (17-59); BLOOD UREA NITROGEN 10 mg/dL (9-20); CALCIUM 8.7 mg/dl (8.6-10.4); GFR AFRICAN-AMERICAN > 60; GFR NON-AFRICAN AMERICAN > 60
[2018-01-16] MEDS: Pantoprazole 40 mg EC Tab PO SCH (10:00)
--- NOTE | 2018-01-16 12:42 | CP.PCM.CON ---
<Fajardo,Angela - Last Filed: 01/16/18 18:06> History of Present Illness - History of Present Illness History of Present Illness: Initial PGY4 GI Consultation Daniel Pina is a 57 year old male w/ a hx of HTN, seizure disorder and alcohol dependence who was brought to the ER by ambulance while intoxicated. He experienced a seizure lasting 30sec en route and another in the ER lasting 2min during which he had an episode of urinary incontinence. At the time of evaluation is was complaining of abd pain post seizure. He admitted not taking his phenytoin and phenobarbital. He denies any abd pain prior to the seizure activity. He denies any previous episodes of diverticulitis. His CT abd revealed possible diverticulitis at the sigmoid/descending. He also complains of dysphagia which is intermittent. He notes more solids than liquids. He had an EGD by Dr. Marie as an oupt but has not followed up. He denies any weightloss , hematemesis, or coffeegrounf emesis. Denies any rectal bleeding, melena. He was He also stated that he has not had a drink for a couple of days and is experiencing mild tremors; he drinks 1 liter of vodka "on the regular" (no further specification). He reports constipation and denies SOB, nausea, vomiting , diarrhea. Pt able to tolerate eating solids and liquids overnight without difficulty PMH: HTN, seizure, alcohol use disorder PSH: cholecystectomy FH: brother, mother, father have had seizure disorders Social: 1 liter vodka every few days ("last drinks 2.5 days ago" 01/10) ENDO hx: EGD 6 months ago, unknown results ROS: 12 point ROS conducted neg other than above Past Patient History - Infectious Disease Hx of Infectious Diseases: None - Past Medical History & Family History Past Medical History?: Yes - Past Social History Smoking Status: Never Smoked - CARDIAC Hx Hypertension: Yes - PULMONARY Hx Bronchitis: Yes - NEUROLOGICAL Hx Seizures: Yes - HEENT Hx HEENT Problems: No - RENAL Hx Chronic Kidney Disease: No - ENDOCRINE/METABOLIC Hx Endocrine Disorders: No - INTEGUMENTARY Hx Dermatological Problems: No - MUSCULOSKELETAL/RHEUMATOLOGICAL Hx Rheumatoid Arthritis: Yes - GASTROINTESTINAL Hx Gall Bladder Disease: Yes (s/p cholecystectomy) Hx Gastritis: Yes - PSYCHIATRIC Hx Anxiety: Yes Hx Depression: Yes Hx Post Traumatic Stress Disorder: Yes Hx Substance Use: No - SURGICAL HISTORY Hx Cholecystectomy: Yes - ANESTHESIA Hx Anesthesia: Yes Hx Anesthesia Reactions: No Hx Malignant Hyperthermia: No Meds Home Medications: Home Medication List Medication Instructions Recorded Confirmed Type Amoxicillin/Clavulanate [Augmentin 1 tab PO Q12H 7 Days tab 01/16/18 Rx 875 MG-125 MG Tab] Docusate [Colace] 100 mg PO BID 14 Days cap 01/16/18 Rx Folic Acid 1 mg PO DAILY #30 tab 01/16/18 Rx Multivitamin [Daily Value] 1 each PO DAILY #30 tablet 01/16/18 Rx Pantoprazole Sodium [Protonix] 40 mg PO DAILY #30 tablet.dr 01/16/18 Rx Thiamine [Vitamin B-1] 100 mg PO DAILY #30 tab 01/16/18 Rx Allergies/Adverse Reactions: Allergies Allergy/AdvReac Type Severity Reaction Status Date / Time No Known Allergies Allergy Verified 01/13/18 08:09 - Medications Medications: Current Medications Docusate Sodium (Colace) 100 mg PO BID [facility] Last Admin: 01/16/18 10:00 Dose: 100 mg Heparin Sodium (Porcine) (Heparin) 5,000 units SC Q12 [facility] Last Admin: 01/16/18 10:00 Dose: 5,000 units Folic Acid 1 mg/ Thiamine HCl 100 mg/ Multivitamins/Vitamin C 10 ml/ Sodium Chloride 1,011.2 mls @ 50 mls/hr IV DAILY [facility] Last Admin: 01/16/18 09:10 Dose: Not Given Lactated Ringer's (Lactated Ringer's) 1,000 mls @ 75 mls/hr IV .[id number] [facility] Last Admin: 01/16/18 08:16 Dose: 75 mls/hr Piperacillin Sod/Tazobactam (Sod 3.375 gm/ Sodium Chloride) 100 mls @ 200 mls/ hr IVPB Q6H [facility] PRN Reason: Protocol Last Admin: 01/16/18 11:03 Dose: 200 mls/hr Lorazepam (Ativan) 2 mg IVP Q2H PRN PRN Reason: Seizure activity Lorazepam (Ativan) 1 mg PO Q8 [facility] PRN Reason: Taper Stop: 01/17/18 17:59 Last Admin: 01/16/18 05:43 Dose: 1 mg Pantoprazole Sodium (Protonix Ec Tab) 40 mg PO DAILY [facility] Last Admin: 01/16/18 10:00 Dose: 40 mg Phenobarbital (Phenobarbital Tab) 16.2 mg PO BID [facility] Last Admin: 01/16/18 10:00 Dose: 16.2 mg Phenytoin Sodium (Dilantin) 100 mg PO TID [facility] Last Admin: 01/16/18 10:00 Dose: 100 mg Saccharomyces Boulardii (Florastor) 250 mg PO ACHS [facility] Last Admin: 01/16/18 12:18 Dose: 250 mg Physical Exam - Constitutional Appears: Well, No Acute Distress - Head Exam Head Exam: ATRAUMATIC, NORMOCEPHALIC - Eye Exam Eye Exam: Normal appearance - ENT Exam ENT Exam: Mucous Membranes Moist, Normal Exam - Neck Exam Neck exam: Positive for: Normal Inspection - Respiratory Exam Respiratory Exam: Clear to Auscultation Bilateral, NORMAL BREATHING PATTERN. absent: Rales, Rhonchi, Wheezes, Respiratory Distress - Cardiovascular Exam Cardiovascular Exam: REGULAR RHYTHM, +S1, +S2 - GI/Abdominal Exam GI & Abdominal Exam: Normal Bowel Sounds, Soft. absent: Distended, Firm, Guarding, Rigid, Tenderness - Extremities Exam Extremities exam: Negative for: joint swelling, pedal edema - Neurological Exam Neurological exam: Alert, Oriented x3 - Psychiatric Exam Psychiatric exam: Normal Affect, Normal Mood - Skin Skin Exam: Dry, Intact, Normal Color, Warm Results - Vital Signs Recent Vital Signs: Last Vital Signs Temp 97.6 F 01/16/18 07:20 Pulse 80 01/16/18 07:20 Resp 20 01/16/18 07:20 BP 134/91 H 01/16/18 07:20 Pulse Ox 99 01/16/18 07:20 - Labs Result Diagrams: 01/16/18 07:07 01/16/18 07:07 Labs: Laboratory Results - last 24 hr 01/15/18 01/15/18 01/16/18 17:15 21:57 06:14 WBC RBC Hgb Hct MCV MCH MCHC RDW Plt Count MPV Neut % (Auto) Lymph % (Auto) [place] % (Auto) Eos % (Auto) Baso % (Auto) Neut # (Auto) Lymph # (Auto) [place] # (Auto) Eos # (Auto) Baso # (Auto) Sodium Potassium Chloride Carbon Dioxide Anion Gap BUN Creatinine Est GFR ( Amer) Est GFR (Non-Af Amer) POC Glucose (mg/dL) 116 H 99 91 Random Glucose Calcium Total Bilirubin AST ALT Alkaline Phosphatase Total Protein Albumin Globulin Albumin/Globulin Ratio 01/16/18 01/16/18 01/16/18 07:07 07:07 11:05 WBC 4.7 L RBC 3.59 L Hgb 12.3 Hct 36.5 MCV 101.8 H MCH 34.3 H MCHC 33.7 RDW 15.3 H Plt Count 138 MPV 8.9 Neut % (Auto) 64.1 Lymph % (Auto) 18.2 L [place] % (Auto) 13.6 H Eos % (Auto) 3.5 Baso % (Auto) 0.6 Neut # (Auto) 3.0 Lymph # (Auto) 0.9 L [place] # (Auto) 0.6 Eos # (Auto) 0.2 Baso # (Auto) 0.0 Sodium 138 Potassium 4.1 Chloride 106 Carbon Dioxide 19 L Anion Gap 17 BUN 10 Creatinine 0.7 L Est GFR ( Amer) > 60 Est GFR (Non-Af Amer) > 60 POC Glucose (mg/dL) 420 H* Random Glucose 88 Calcium 8.7 Total Bilirubin 0.8 AST 92 H ALT 14 L D Alkaline Phosphatase 78 Total Protein 8.4 H Albumin 3.3 L Globulin 5.1 H Albumin/Globulin Ratio 0.7 L Assessment & Plan - Assessment and Plan (Free Text) Assessment: Wally Pina is a 57M w/ hx of alcohol dependence who presents to the ED after having seizures. He was complaining of abd pain and dysphagia Dysphagia Mild Sigmoid Diverticulitis Alcohol Dependence Plan: -pt eating solids and liquids without difficult in the AM -recommend follow-up w/ oupt GI Dr. Marie, as he has supposedly done an EGD < 6months ago -continue protonix 40mg daily -advance diet as tolerated -can complete 7-10 days of abx PO cipro/flagyl as an ouppt -recommend outpt colonoscopy -advised alcohol cessation d/w Dr. Dawson <Samir Dawson Y - Last Filed: 01/16/18 20:13> Meds - Medications Medications: Current Medications Docusate Sodium (Colace) 100 mg PO BID [facility] Last Admin: 01/16/18 18:11 Dose: 100 mg Heparin Sodium (Porcine) (Heparin) 5,000 units SC Q12 [facility] Last Admin: 01/16/18 10:00 Dose: 5,000 units Folic Acid 1 mg/ Thiamine HCl 100 mg/ Multivitamins/Vitamin C 10 ml/ Sodium Chloride 1,011.2 mls @ 50 mls/hr IV DAILY [facility] Last Admin: 01/16/18 09:10 Dose: Not Given Lactated Ringer's (Lactated Ringer's) 1,000 mls @ 75 mls/hr IV .[id number] [facility] Last Admin: 01/16/18 08:16 Dose: 75 mls/hr Piperacillin Sod/Tazobactam (Sod 3.375 gm/ Sodium Chloride) 100 mls @ 200 mls/ hr IVPB Q6H [facility] PRN Reason: Protocol Last Admin: 01/16/18 18:12 Dose: 200 mls/hr Lorazepam (Ativan) 2 mg IVP Q2H PRN PRN Reason: Seizure activity Lorazepam (Ativan) 1 mg PO Q24H [facility] PRN Reason: Taper Stop: 01/17/18 17:59 Last Admin: 01/16/18 18:11 Dose: 1 mg Pantoprazole Sodium (Protonix Ec Tab) 40 mg PO DAILY [facility] Last Admin: 01/16/18 10:00 Dose: 40 mg Phenobarbital (Phenobarbital Tab) 16.2 mg PO BID [facility] Last Admin: 01/16/18 10:00 Dose: 16.2 mg Phenytoin Sodium (Dilantin) 100 mg PO TID [facility] Last Admin: 01/16/18 18:11 Dose: 100 mg Saccharomyces Boulardii (Florastor) 250 mg PO ACHS [facility] Last Admin: 01/16/18 18:11 Dose: 250 mg Results - Vital Signs Recent Vital Signs: Last Vital Signs Temp 98 F 01/16/18 15:43 Pulse 82 01/16/18 15:43 Resp 20 01/16/18 15:43 BP 129/89 01/16/18 15:43 Pulse Ox 98 01/16/18 15:43 - Labs Result Diagrams: 01/16/18 07:07 01/16/18 07:07 Labs: Laboratory Results - last 24 hr 01/15/18 01/16/18 01/16/18 21:57 06:14 07:07 WBC 4.7 L RBC 3.59 L Hgb 12.3 Hct 36.5 MCV 101.8 H MCH 34.3 H MCHC 33.7 RDW 15.3 H Plt Count 138 MPV 8.9 Neut % (Auto) 64.1 Lymph % (Auto) 18.2 L [place] % (Auto) 13.6 H Eos % (Auto) 3.5 Baso % (Auto) 0.6 Neut # (Auto) 3.0 Lymph # (Auto) 0.9 L [place] # (Auto) 0.6 Eos # (Auto) 0.2 Baso # (Auto) 0.0 Sodium Potassium Chloride Carbon Dioxide Anion Gap BUN Creatinine Est GFR ( Amer) Est GFR (Non-Af Amer) POC Glucose (mg/dL) 99 91 Random Glucose Calcium Total Bilirubin AST ALT Alkaline Phosphatase Total Protein Albumin Globulin Albumin/Globulin Ratio 01/16/18 01/16/18 01/16/18 07:07 11:05 16:15 WBC RBC Hgb Hct MCV MCH MCHC RDW Plt Count MPV Neut % (Auto) Lymph % (Auto) [place] % (Auto) Eos % (Auto) Baso % (Auto) Neut # (Auto) Lymph # (Auto) [place] # (Auto) Eos # (Auto) Baso # (Auto) Sodium 138 Potassium 4.1 Chloride 106 Carbon Dioxide 19 L Anion Gap 17 BUN 10 Creatinine 0.7 L Est GFR ( Amer) > 60 Est GFR (Non-Af Amer) > 60 POC Glucose (mg/dL) 420 H* 121 H Random Glucose 88 Calcium 8.7 Total Bilirubin 0.8 AST 92 H ALT 14 L D Alkaline Phosphatase 78 Total Protein 8.4 H Albumin 3.3 L Globulin 5.1 H Albumin/Globulin Ratio 0.7 L Attending/Attestation - Attestation I have personally seen and examined this patient.: Yes I have fully participated in the care of the patient.: Yes I have reviewed all pertinent clinical information: Yes Notes (Text): 01/16/18 20:03 I have seen and examined patient with GI fellow. Agree with above documentation with the following additions. In brief, this is a 57 year old male with history of HTN, seizure disorder, ETOH abuse who presents to hospital in acute intoxicated state experiencing seizure like activity. GI called for evaluation of abdominal pain. He describes sharp LLQ abdominal pain which started suddenly yesterday. He reports associated nausea and one episode of vomiting following dinner this evening. He otherwise denies fever/chills, weight loss, rectal bleeding, or diarrhea (no bowel movements today). He claims to have had an EGD within the past 2 months but no prior colonoscopy. Additional physical examination: Abdomen: no palpable hepato/splenomegaly HTN Seizure disorder ETOH abuse Abdominal pain CT imaging reviewed by me showing acute sigmoid/descending colon diverticulitis - Full liquid diet as tolerated - Continue with antibiotic therapy - Monitor for signs of ETOH withdrawal - Follow up neurology recommendations regarding recent seizure, though likely related to ETOH - Patient would benefit from colonoscopy evaluation 6-8 weeks following resolution of acute symptoms. Will continue to monitor patient clinical course.
--- NOTE | 2018-01-16 14:13 | CP.PCM.DIS ---
Provider - Provider Date of Admission: 01/13/18 12:44 Attending physician: Ana Rich DO Consults: Dr. Mert Amaral Time Spent in preparation of Discharge (in minutes): 35 Hospital Course - Lab Results Lab Results: Most Recent Lab Values WBC 4.7 K/uL (4.8-10.8) L 01/16/18 07:07 RBC 3.59 Mil/uL (4.40-5.90) L 01/16/18 07:07 Hgb 12.3 g/dL (12.0-18.0) 01/16/18 07:07 Hct 36.5 % (35.0-51.0) 01/16/18 07:07 MCV 101.8 fL (80.0-94.0) H 01/16/18 07:07 MCH 34.3 pg (27.0-31.0) H 01/16/18 07:07 MCHC 33.7 g/dL (33.0-37.0) 01/16/18 07:07 RDW 15.3 % (11.5-14.5) H 01/16/18 07:07 Plt Count 138 K/uL (130-400) 01/16/18 07:07 MPV 8.9 fL (7.2-11.7) 01/16/18 07:07 Neut % (Auto) 64.1 % (50.0-75.0) 01/16/18 07:07 Lymph % (Auto) 18.2 % (20.0-40.0) L 01/16/18 07:07 [place] % (Auto) 13.6 % (0.0-10.0) H 01/16/18 07:07 Eos % (Auto) 3.5 % (0.0-4.0) 01/16/18 07:07 Baso % (Auto) 0.6 % (0.0-2.0) 01/16/18 07:07 Neut # (Auto) 3.0 K/uL (1.8-7.0) 01/16/18 07:07 Lymph # (Auto) 0.9 K/uL (1.0-4.3) L 01/16/18 07:07 [place] # (Auto) 0.6 K/uL (0.0-0.8) 01/16/18 07:07 Eos # (Auto) 0.2 K/uL (0.0-0.7) 01/16/18 07:07 Baso # (Auto) 0.0 K/uL (0.0-0.2) 01/16/18 07:07 D-Dimer, Quantitative 427 ng/mlDDU (0-243) H 01/13/18 13:45 Sodium 138 mmol/L (132-148) 01/16/18 07:07 Potassium 4.1 mmol/L (3.6-5.2) 01/16/18 07:07 Chloride 106 mmol/L (98-107) 01/16/18 07:07 Carbon Dioxide 19 mmol/L (22-30) L 01/16/18 07:07 Anion Gap 17 (10-20) 01/16/18 07:07 BUN 10 mg/dL (9-20) 01/16/18 07:07 Creatinine 0.7 mg/dL (0.8-1.5) L 01/16/18 07:07 Est GFR ( Amer) > 60 01/16/18 07:07 Est GFR (Non-Af Amer) > 60 01/16/18 07:07 POC Glucose (mg/dL) 420 mg/dL (65-110) H* 01/16/18 11:05 Random Glucose 88 mg/dL (75-110) 01/16/18 07:07 Hemoglobin A1c 5.6 % (4.2-6.5) 01/14/18 06:37 Calcium 8.7 mg/dl (8.6-10.4) 01/16/18 07:07 Phosphorus 4.3 mg/dL (2.5-4.5) 01/15/18 07:13 Magnesium 1.9 mg/dL (1.6-2.3) 01/15/18 07:13 Total Bilirubin 0.8 mg/dL (0.2-1.3) 01/16/18 07:07 AST 92 U/L (17-59) H 01/16/18 07:07 ALT 14 U/L (21-72) L D 01/16/18 07:07 Alkaline Phosphatase 78 U/L (38-126) 01/16/18 07:07 Total Creatine Kinase 196 U/L (55-170) H 01/13/18 19:42 CK-MB (Mass) 1.35 ng/mL (0.0-3.38) 01/13/18 19:42 Troponin I < 0.0120 ng/mL (0.00-0.120) 01/13/18 19:42 NT-Pro-B Natriuret Pep 43.3 pg/mL (0-900) 01/13/18 14:34 Total Protein 8.4 g/dL (6.3-8.3) H 01/16/18 07:07 Albumin 3.3 g/dL (3.5-5.0) L 01/16/18 07:07 Globulin 5.1 gm/dL (2.2-3.9) H 01/16/18 07:07 Albumin/Globulin Ratio 0.7 (1.0-2.1) L 01/16/18 07:07 Triglycerides 52 mg/dL (0-149) 01/14/18 06:37 Cholesterol 170 mg/dL (0-199) 01/14/18 06:37 LDL Cholesterol Direct 102 mg/dL (0-129) 01/14/18 06:37 HDL Cholesterol 48 mg/dL (30-70) 01/14/18 06:37 Free T4 0.89 ng/dL (0.78-2.19) 01/14/18 06:37 TSH 3rd Generation 3.19 mIU/L (0.46-4.68) 01/14/18 06:37 Urine Color Yellow (YELLOW) 01/13/18 13:45 Urine Clarity Clear (Clear) 01/13/18 13:45 Urine pH 6.0 (5.0-8.0) 01/13/18 13:45 Ur Specific [place] 1.012 (1.003-1.030) 01/13/18 13:45 Urine Protein Negative mg/dL (NEGATIVE) 01/13/18 13:45 Urine Glucose (UA) Normal mg/dL (Normal) 01/13/18 13:45 Urine Ketones Negative mg/dL (NEGATIVE) 01/13/18 13:45 Urine Blood Negative (NEGATIVE) 01/13/18 13:45 Urine Nitrate Negative (NEGATIVE) 01/13/18 13:45 Urine Bilirubin Negative (NEGATIVE) 01/13/18 13:45 Urine Urobilinogen 4.0 mg/dL (0.2-1.0) 01/13/18 13:45 Ur Leukocyte Esterase Neg [place]/uL (Negative) 01/13/18 13:45 Urine WBC (Auto) 1 /hpf (0-5) 01/13/18 13:45 Ur Squamous Epith Cells < 1 /hpf (0-5) 01/13/18 13:45 Urine Opiates Screen Negative (NEGATIVE) 01/13/18 13:45 Urine Methadone Screen Negative (NEGATIVE) 01/13/18 13:45 Ur Barbiturates Screen Positive (NEGATIVE) H 01/13/18 13:45 Phenytoin < 3.0 ug/mL (10-20) L 01/13/18 10:40 Ur Phencyclidine Scrn Negative (NEGATIVE) 01/13/18 13:45 Ur Amphetamines Screen Negative (NEGATIVE) 01/13/18 13:45 Phenobarbital <5.0 mg/L (15.0-40.0) L 01/13/18 10:40 U Benzodiazepines Scrn Positive (NEGATIVE) 01/13/18 13:45 U Oth Cocaine Metabols Negative (NEGATIVE) 01/13/18 13:45 U Cannabinoids Screen Negative (NEGATIVE) 01/13/18 13:45 Alcohol, Quantitative 254 mg/dl (0-10) H 01/13/18 09:01 - Hospital Course Hospital Course: 57 year old male w/ a PMH of HTN, seizure disorder and alcohol use disorder was brought to the ER by ambulance while intoxicated. He experienced a seizure lasting 30sec en route and another in the ER lasting 2min during which he had an episode of urinary incontinence. At bedside he complained of pain in the back of his head, the front of his left shoulder, and in LLQ which he states feels like a knife. He states that at home he takes phenytoin and phenobarbital unreliably and that he last took them the day before yesterday. He also stated that he has not had a drink for a couple of days and is experiencing mild tremors; he drinks 1 liter of vodka "on the regular" (no further specification) . He reports constipation and denies SOB, nausea, vomiting, diarrhea. Patient placed on seizure precautions and libium tper. Patient was then switched to ativan and had studies done while in the hospital. Patient had an abdominal US ordered showing liver with fatty infiltration, small calcification. no intrahepatic ductal dilatation. Hepatic steatosis, mild pelvocaliectasis of right kidney. Patient was complaining of llq pain which a CT abdomen/pelvis with PO/IV contrast was ordered showing irregular wall thickening of descending colon with diverticulosis and an esophageal hernia. GI consult Dr. Amaral ordered and was noted to have had an endoscopy in the past and was advised to follow up with Dr. Marie upon discharge. Patient had and EKG showing Prolonged QT >450 on EKG in ED. Electrolytes were monitoried. Cardio: Dr. Painting was consulted. Patient was discharged on Augmentin, told to continue anti-seizure medications and advised to quit drinking alcohol. Social work was notified to bring patient contact information about [employer] anonymous - Date & Time of H&P Date of H&P: 01/16/18 Time of H&P: 14:15 Discharge Exam - Additional Findings Additional findings: - Constitutional Appears: Non-toxic, No Acute Distress, Unkempt - Head Exam Head Exam: ATRAUMATIC, NORMAL INSPECTION, NORMOCEPHALIC - Eye Exam Eye Exam: EOMI, Normal appearance - ENT Exam ENT Exam: Mucous Membranes Moist, Normal Exam - Neck Exam Neck Exam: Full ROM, Normal Inspection - Respiratory Exam Respiratory Exam: Clear to Ausculation Bilateral, NORMAL BREATHING PATTERN. absent: Accessory Muscle Use, Respiratory Distress - Cardiovascular Exam Cardiovascular Exam: REGULAR RHYTHM, +S1, +S2 - GI/Abdominal Exam GI & Abdominal Exam: Soft, Tenderness Additional comments: LLQ to deep palpation, minor - Extremities Exam Extremities Exam: Full ROM. absent: Pedal Edema - Back Exam Back Exam: Full ROM, NORMAL INSPECTION - Neurological Exam Neurological Exam: Alert, Awake, CN II-XII Intact, Oriented x3 - Psychiatric Exam Psychiatric exam: Normal Affect, Normal Mood - Skin Skin Exam: Dry, Intact, Normal Color, Warm Discharge Plan - Discharge Medications Prescriptions: Amoxicillin/Clavulanate [Augmentin 875 MG-125 MG Tab] 1 tab PO Q12H 7 Days tab Docusate [Colace] 100 mg PO BID 14 Days cap - Follow Up Plan Condition: SERIOUS Disposition: HOME/ ROUTINE Additional Instructions: f/u with Dr. Marie for EGD and colonoscopy take seizure medications as directed take antibiotics as directed consider going to alcoholics anonymous alcohol cessation counselor follow up with primary care doctor for referrals and further medical care.
[2018-01-16 16:05] VITALS: BP 129/89; PULSE 82; TEMP 98; O2SAT 98
== END 2018-01-16 22:33 | disposition home or self-care (01) | DRG 751 ==
LOC: C.ER 08:03 → C.9E 12:44 → C.5S 15:41 → C.9E 15:41 → C.6T 16:13 → C.9E 16:18 → C.6T 16:46
PROVIDERS: ADMIT Hospitalist; ATTEND Hospitalist
DX: F10.239 Alcohol dependence with withdrawal, unspecified (principal); I25.10 Atherosclerotic heart disease of native coronary artery without angina pectoris; G40.89 Other seizures; E11.9 Type 2 diabetes mellitus without complications; M19.90 Unspecified osteoarthritis, unspecified site; F41.9 Anxiety disorder, unspecified; F32.9 Major depressive disorder, single episode, unspecified; I10 Essential (primary) hypertension; F43.10 Post-traumatic stress disorder, unspecified; M06.9 Rheumatoid arthritis, unspecified; G89.29 Other chronic pain; K59.00 Constipation, unspecified; Z82.0 Family history of epilepsy and other diseases of the nervous system; S60.512A Abrasion of left hand, initial encounter; Y90.8 Blood alcohol level of 240 mg/100 ml or more; K76.0 Fatty (change of) liver, not elsewhere classified; K44.9 Diaphragmatic hernia without obstruction or gangrene; K57.32 Diverticulitis of large intestine without perforation or abscess without bleeding; R16.0 Hepatomegaly, not elsewhere classified; R13.10 Dysphagia, unspecified; Z91.19 Patient's noncompliance with other medical treatment and regimen

== ENCOUNTER 2018-01-17 06:34 | Emergency (ER) | payer SELFPAY ==
[2018-01-17 06:34] VITALS: BMI 29.7
[2018-01-17 06:55] VITALS: RESP 20; O2SAT 99
--- NOTE | 2018-01-17 07:40 | C.PDOC ---
History Of Present Illness 57 y/o male presents to the ER after he drank ETOH today. Patient states that he does not " feel well." He denies suicidal/homicidal ideations or physical complaints. Of note, patient is well known to [facility] ER as he has visited the ER multiple times in the past for ETOH intoxication. Time Seen by Provider: 01/17/18 07:06 Chief Complaint (Nursing): Substance Abuse History Per: Patient History/Exam Limitations: other (alcohol ) Onset/Duration Of Symptoms: Hrs Current Symptoms Are (Timing): Still Present Modifying Factor(s): Alcohol Severity: Moderate Involuntary Hold By: Emergency Physician Past Medical History Reviewed: Historical Data, Nursing Documentation, Vital Signs Vital Signs: Last Vital Signs Temp 98.3 F 01/17/18 11:25 Pulse 98 H 01/17/18 11:25 Resp 20 01/17/18 11:25 BP 113/73 01/17/18 11:25 Pulse Ox 99 01/17/18 11:25 - Medical History PMH: Anxiety, Arthritis, Bronchitis, CAD, Depression, Diabetes (Pt. did not disclose to software writer, not aware), Fractures (RIGHT ARM), Gastritis, Gall Bladder Disease (s/p cholecystectomy), HTN, Post Traumatic Stress Disorder, Rheumatoid Arthritis, Seizures, Chronic Pain Surgical History: Cholecystectomy - [facility] ALCOHOL DETOXIFICATION (07/04/15) APPLICATION OF SPLINT (03/20/13) CLOSURE SKIN & SUBCUTANEOUS NEC (08/14/13) DETOXIFICATION SERVICES FOR SUBSTANCE ABUSE TREATMENT (03/22/16) ESOPHAGOGASTRODUODENOSCOPY [EGD] W/CLOSED BIOPSY (02/16/15) OTHER GROUP THERAPY (03/12/13) PHYSICAL THERAPY NEC (07/04/15) TETANUS TOXOID ADMINIST (01/19/14) Family History: States: No Known Family Hx - Social History Hx Tobacco Use: No Hx Alcohol Use: Yes Hx Substance Use: No - Immunization History Hx Tetanus Toxoid Vaccination: No Hx Influenza Vaccination: No Hx Pneumococcal Vaccination: No Review Of Systems Except As Marked, All Systems Reviewed And Found Negative. Cardiovascular: Negative for: Chest Pain Respiratory: Negative for: Shortness of Breath Gastrointestinal: Negative for: Nausea, Vomiting, Abdominal Pain Physical Exam - Physical Exam Appears: Non-toxic, Unkempt, Other (smells to ETOH, intoxoicated ) Skin: Normal Color, Warm Head: Normacephalic Eye(s): bilateral: Normal Inspection Oral Mucosa: Moist, Other (ETOH on breath) Neck: Supple Cardiovascular: Rhythm Regular Respiratory: Normal Breath Sounds, No Rales, No Rhonchi, No Wheezing Gastrointestinal/Abdominal: Normal Exam, Bowel Sounds, Soft, No Tenderness Extremity: Normal ROM Extremity: Bilateral: Atraumatic, Normal Color And Temperature, Normal ROM Neurological/Psych: Other (awake, alert, intoxicated, moving all 4 extremities spontaneously ) ED Course And Treatment O2 Sat by Pulse Oximetry: 99 (RA) Pulse Ox Interpretation: Normal Progress Note: Accucheck ordered and reviewed. Patient pending sobriety. Reevaluation Time: 11:30 Reassessment Condition: Improved (Patient reassessed, is currently AAOx3, ambulating normally in ED. Patient is clinically sober at this time, will discharge.) Disposition Counseled Patient/Family Regarding: Studies Performed, Diagnosis, Need For Followup - Disposition Referrals: [facility] [Outside] Disposition: HOME/ ROUTINE Disposition Time: 11:30 Condition: STABLE Forms: [facility] ([place]) Print Language: FRISIAN - Clinical Impression Clinical Impression: Alcohol intoxication - Scribe Statement The provider has reviewed the documentation as recorded by the Rominaibe Gianni Jackson Provider Attestation: All medical record entries made by the Scribe were at my direction and personally dictated by me. I have reviewed the chart and agree that the record accurately reflects my personal performance of the history, physical exam, medical decision making, and the department course for this patient. I have also personally directed, reviewed, and agree with the discharge instructions and disposition.
[2018-01-17 11:26] VITALS: BP 113/73; PULSE 98; TEMP 98.3
== END 2018-01-17 11:34 | disposition home or self-care (01) ==
LOC: C.ER 06:34
DX: F10.129 Alcohol abuse with intoxication, unspecified (principal); Y90.9 Presence of alcohol in blood, level not specified

== ENCOUNTER 2018-01-17 22:24 | Emergency (ER) | payer SELFPAY ==
[2018-01-17 22:24] VITALS: BMI 29.7
[2018-01-17 23:00] VITALS: BP 135/88; PULSE 100; RESP 20; TEMP 98.4; O2SAT 97
--- NOTE | 2018-01-17 23:01 | C.PDOC ---
Time Seen by Provider: 01/17/18 22:57 Chief Complaint (Nursing): Substance Abuse Past Medical History Vital Signs: Last Vital Signs Temp 98.4 F 01/17/18 22:56 Pulse 100 H 01/17/18 22:56 Resp 20 01/17/18 22:56 BP 135/88 01/17/18 22:56 Pulse Ox 97 01/17/18 22:56 - Medical History PMH: Anxiety, Arthritis, Bronchitis, CAD, Depression, Diabetes (Pt. did not disclose to life underwriter, not aware), Fractures (RIGHT ARM), Gastritis, Gall Bladder Disease (s/p cholecystectomy), HTN, Post Traumatic Stress Disorder, Rheumatoid Arthritis, Seizures, Chronic Pain Denies: Chronic Kidney Disease Surgical History: Cholecystectomy - [facility] Procedures ALCOHOL DETOXIFICATION (07/04/15) APPLICATION OF SPLINT (03/20/13) CLOSURE SKIN & SUBCUTANEOUS NEC (08/14/13) DETOXIFICATION SERVICES FOR SUBSTANCE ABUSE TREATMENT (03/22/16) ESOPHAGOGASTRODUODENOSCOPY [EGD] W/CLOSED BIOPSY (02/16/15) OTHER GROUP THERAPY (03/12/13) PHYSICAL THERAPY NEC (07/04/15) TETANUS TOXOID ADMINIST (01/19/14) Family History: States: Unknown Family Hx - Social History Hx Tobacco Use: No Hx Alcohol Use: Yes Hx Substance Use: No - Immunization History Hx Tetanus Toxoid Vaccination: No Hx Influenza Vaccination: No Hx Pneumococcal Vaccination: No ED Course And Treatment O2 Sat by Pulse Oximetry: 97 Medical Decision Making Medical Decision Making: typical alcohol abuse and malingering stable vertical gait Disposition Doctor Will See Patient In The: Office Counseled Patient/Family Regarding: Studies Performed, Diagnosis - Disposition Disposition: HOME/ ROUTINE Disposition Time: 23:00 Condition: GOOD - Clinical Impression Clinical Impression: H/O alcohol abuse, Malingering
== END 2018-01-17 23:30 | disposition home or self-care (01) ==
LOC: C.ER 22:24
DX: F10.10 Alcohol abuse, uncomplicated (principal); Y90.9 Presence of alcohol in blood, level not specified; Z76.5 Malingerer [conscious simulation]

== ENCOUNTER 2018-01-19 00:52 | Emergency (ER) | payer SELFPAY ==
[2018-01-19 00:53] VITALS: BMI 29.7
--- NOTE | 2018-01-19 00:57 | C.PDOC ---
History Of Present Illness 57 year old male with multiple prior visit to the ED presents intoxicated looking for a place to spend the night. Patient admits to drinking alcohol today. Patient denies SI/HI, hallucinations, SOB, CP. Time Seen by Provider: 01/19/18 00:56 Chief Complaint (Nursing): Substance Abuse History Per: Patient History/Exam Limitations: intoxication Onset/Duration Of Symptoms: Hrs Current Symptoms Are (Timing): Still Present Suicide/Self Injury Attempted (Context): None Modifying Factor(s): Alcohol Associated Symptoms: denies: Depression, Suicidal Thoughts, Suicidal Plan Recent travel outside of the [place]: No Additional History Per: Patient Past Medical History Reviewed: Historical Data, Nursing Documentation, Vital Signs Vital Signs: Last Vital Signs Temp 98.0 F 01/19/18 01:01 Pulse 102 H 01/19/18 01:01 Resp 20 01/19/18 01:01 BP 127/83 01/19/18 01:01 Pulse Ox 98 01/19/18 01:06 - Medical History PMH: Anxiety, Arthritis, Bronchitis, CAD, Depression, Diabetes (Pt. did not disclose to radio news writer, not aware), Fractures (RIGHT ARM), Gastritis, Gall Bladder Disease (s/p cholecystectomy), HTN, Post Traumatic Stress Disorder, Rheumatoid Arthritis, Seizures, Chronic Pain Denies: Chronic Kidney Disease Surgical History: Cholecystectomy - [facility] Procedures ALCOHOL DETOXIFICATION (07/04/15) APPLICATION OF SPLINT (03/20/13) CLOSURE SKIN & SUBCUTANEOUS NEC (08/14/13) DETOXIFICATION SERVICES FOR SUBSTANCE ABUSE TREATMENT (03/22/16) ESOPHAGOGASTRODUODENOSCOPY [EGD] W/CLOSED BIOPSY (02/16/15) OTHER GROUP THERAPY (03/12/13) PHYSICAL THERAPY NEC (07/04/15) TETANUS TOXOID ADMINIST (01/19/14) Family History: States: Unknown Family Hx - Social History Hx Tobacco Use: No Hx Alcohol Use: Yes Hx Substance Use: No - Immunization History Hx Tetanus Toxoid Vaccination: No Hx Influenza Vaccination: No Hx Pneumococcal Vaccination: No Review Of Systems Constitutional: Negative for: Fever, Chills Cardiovascular: Negative for: Chest Pain Respiratory: Negative for: Shortness of Breath Gastrointestinal: Negative for: Nausea, Vomiting Skin: Negative for: Rash Psych: Negative for: Depression, Suicidal ideation Physical Exam - Physical Exam Appears: Non-toxic, No Acute Distress Skin: Warm, Dry Head: Normacephalic Eye(s): bilateral: Normal Inspection Nose: No Discharge Oral Mucosa: Moist Neck: Supple Chest: Symmetrical Cardiovascular: Rhythm Regular, No Murmur Respiratory: No Rales, No Rhonchi, No Wheezing Gastrointestinal/Abdominal: Soft, No Tenderness, No Guarding, No Rebound Extremity: Normal ROM Neurological/Psych: Oriented x3 Gait: Steady ED Course And Treatment O2 Sat by Pulse Oximetry: 98 (On RA) Pulse Ox Interpretation: Normal Reevaluation Time: 05:49 Reassessment Condition: Improved Disposition Counseled Patient/Family Regarding: Studies Performed, Diagnosis, Need For Followup - Disposition Referrals: [facility] [Outside] Disposition: HOME/ ROUTINE Disposition Time: 00:56 Condition: FAIR Instructions: Alcohol Abuse and Alcoholism (DC) Forms: [facility] (Maori) - Clinical Impression Clinical Impression: Alcohol abuse with intoxication, Chronic alcoholism - Scribe Statement The provider has reviewed the documentation as recorded by the Scribe Woo Brown All medical record entries made by the Scribe were at my direction and personally dictated by me. I have reviewed the chart and agree that the record accurately reflects my personal performance of the history, physical exam, medical decision making, and the department course for this patient. I have also personally directed, reviewed, and agree with the discharge instructions and disposition.
[2018-01-19 01:03] VITALS: RESP 20; TEMP 98
[2018-01-19 06:16] VITALS: BP 124/70; PULSE 80; O2SAT 97
== END 2018-01-19 06:07 | disposition home or self-care (01) ==
LOC: C.ER 00:52
DX: F10.229 Alcohol dependence with intoxication, unspecified (principal); Y90.9 Presence of alcohol in blood, level not specified

== ENCOUNTER 2018-01-19 20:38 | Emergency (ER) | payer SELFPAY ==
[2018-01-19 20:39] VITALS: BMI 29.7
[2018-01-19 21:04] VITALS: BP 110/74; PULSE 93; RESP 16; TEMP 97.9; O2SAT 100
--- NOTE | 2018-01-19 21:16 | C.PDOC ---
History Of Present Illness 57 year old male presents to the emergency department with alcohol intoxication. Patient is well known to this provider and to the ED for multiple visits for the same. He is ambulating with steady gait and clear speech. Patient offers no physical complaints. Requesting a place to stay the night. Time Seen by Provider: 01/19/18 21:14 Chief Complaint (Nursing): Substance Abuse History Per: Patient History/Exam Limitations: no limitations Onset/Duration Of Symptoms: Hrs Current Symptoms Are (Timing): Still Present Past Medical History Reviewed: Historical Data, Nursing Documentation, Vital Signs Vital Signs: Last Vital Signs Temp 97.9 F 01/19/18 21:01 Pulse 93 H 01/19/18 21:01 Resp 16 01/19/18 21:01 BP 110/74 01/19/18 21:01 Pulse Ox 100 01/19/18 21:16 - Medical History PMH: Anxiety, Arthritis, Bronchitis, CAD, Depression, Diabetes (Pt. did not disclose to service writer advisor, not aware), Fractures (RIGHT ARM), Gastritis, Gall Bladder Disease (s/p cholecystectomy), HTN, Post Traumatic Stress Disorder, Rheumatoid Arthritis, Seizures, Chronic Pain Denies: Chronic Kidney Disease Surgical History: Cholecystectomy - [facility] Procedures ALCOHOL DETOXIFICATION (07/04/15) APPLICATION OF SPLINT (03/20/13) CLOSURE SKIN & SUBCUTANEOUS NEC (08/14/13) DETOXIFICATION SERVICES FOR SUBSTANCE ABUSE TREATMENT (03/22/16) ESOPHAGOGASTRODUODENOSCOPY [EGD] W/CLOSED BIOPSY (02/16/15) OTHER GROUP THERAPY (03/12/13) PHYSICAL THERAPY NEC (07/04/15) TETANUS TOXOID ADMINIST (01/19/14) Family History: States: Unknown Family Hx - Social History Hx Tobacco Use: No Hx Alcohol Use: Yes Hx Substance Use: No - Immunization History Hx Tetanus Toxoid Vaccination: No Hx Influenza Vaccination: No Hx Pneumococcal Vaccination: No Review Of Systems Except As Marked, All Systems Reviewed And Found Negative. Respiratory: Negative for: Shortness of Breath Gastrointestinal: Negative for: Vomiting Psych: Negative for: Suicidal ideation, Withdrawal Physical Exam - Physical Exam Appears: Non-toxic, No Acute Distress Skin: Warm, Dry, No Rash Head: Atraumatic, Normacephalic Eye(s): bilateral: Normal Inspection, PERRL, EOMI Oral Mucosa: Moist Neck: Normal, Normal ROM Chest: Symmetrical Cardiovascular: Rhythm Regular Respiratory: Normal Breath Sounds, No Accessory Muscle Use Gastrointestinal/Abdominal: Soft, No Tenderness, No Distention Extremity: Bilateral: Atraumatic, Normal ROM Neurological/Psych: Normal Speech, Other (Awake and alert, answering questions appropriately) Gait: Steady ED Course And Treatment O2 Sat by Pulse Oximetry: 100 (RA) Pulse Ox Interpretation: Normal Medical Decision Making Medical Decision Making: Impression: typical malingering, alcohol abuse stable gait no acute issues. Disposition Doctor Will See Patient In The: Office Counseled Patient/Family Regarding: Studies Performed, Diagnosis - Disposition Referrals: Alcoholics Anonymous [Outside] [facility] [Outside] [facility] [Outside] [facility] [Outside] Disposition: HOME/ ROUTINE Disposition Time: 21:15 Condition: GOOD Additional Instructions: seek nightly usp placement seek AA seek outpatient psych services Instructions: Alcohol Use - When Is Drinking a Problem? Forms: [facility] (Portuguese) - POA Present On Arrival: None - Clinical Impression Clinical Impression: Homeless single person, Chronic alcoholism - Scribe Statement The provider has reviewed the documentation as recorded by the Scribe (Leah Gunter) Provider Attestation: All medical record entries made by the Scribe were at my direction and personally dictated by me. I have reviewed the chart and agree that the record accurately reflects my personal performance of the history, physical exam, medical decision making, and the department course for this patient. I have also personally directed, reviewed, and agree with the discharge instructions and disposition.
== END 2018-01-19 22:47 | disposition home or self-care (01) ==
LOC: C.ER 20:38
DX: F10.229 Alcohol dependence with intoxication, unspecified (principal); Y90.9 Presence of alcohol in blood, level not specified; Z59.0 Homelessness

== ENCOUNTER 2018-01-21 01:16 | Emergency (ER) | payer SELFPAY ==
[2018-01-21 01:16] VITALS: BMI 29.7
--- NOTE | 2018-01-21 01:42 | C.PDOC ---
History Of Present Illness 57 y/o male presents to the ED requesting a place to stay the night. Seen here earlier tonight for the same, and was discharged home. Patient admits to drinking alcohol tonight. No physical complaints offered at this time. Time Seen by Provider: 01/21/18 01:35 Chief Complaint (Nursing): Substance Abuse History Per: Patient History/Exam Limitations: no limitations Past Medical History Reviewed: Historical Data, Nursing Documentation, Vital Signs Vital Signs: Last Vital Signs Temp 98.2 F 01/21/18 04:23 Pulse 91 H 01/21/18 05:44 Resp 19 01/21/18 05:44 BP 121/64 01/21/18 05:44 Pulse Ox 97 01/21/18 05:44 - Medical History PMH: Anxiety, Arthritis, Bronchitis, CAD, Depression, Diabetes (Pt. did not disclose to lead technical writer, not aware), Fractures (RIGHT ARM), Gastritis, Gall Bladder Disease (s/p cholecystectomy), HTN, Post Traumatic Stress Disorder, Rheumatoid Arthritis, Seizures, Chronic Pain Denies: Chronic Kidney Disease Surgical History: Cholecystectomy - [facility] Procedures ALCOHOL DETOXIFICATION (07/04/15) APPLICATION OF SPLINT (03/20/13) CLOSURE SKIN & SUBCUTANEOUS NEC (08/14/13) DETOXIFICATION SERVICES FOR SUBSTANCE ABUSE TREATMENT (03/22/16) ESOPHAGOGASTRODUODENOSCOPY [EGD] W/CLOSED BIOPSY (02/16/15) OTHER GROUP THERAPY (03/12/13) PHYSICAL THERAPY NEC (07/04/15) TETANUS TOXOID ADMINIST (01/19/14) Family History: States: Unknown Family Hx - Social History Hx Tobacco Use: No Hx Alcohol Use: Yes Hx Substance Use: No - Immunization History Hx Tetanus Toxoid Vaccination: No Hx Influenza Vaccination: No Hx Pneumococcal Vaccination: No Review Of Systems Except As Marked, All Systems Reviewed And Found Negative. Constitutional: Negative for: Fever Respiratory: Negative for: Shortness of Breath Psych: Positive for: Other (alcohol intoxication). Negative for: Suicidal ideation Physical Exam - Physical Exam Appears: Non-toxic, No Acute Distress, Other (+ alcohol on breath) Skin: Normal Color, Warm, Dry Head: Atraumatic, Normacephalic Eye(s): bilateral: Normal Inspection, PERRL, EOMI Nose: Normal Oral Mucosa: Moist Neck: Normal ROM, Supple Chest: Symmetrical Cardiovascular: Rhythm Regular Respiratory: Normal Breath Sounds, No Accessory Muscle Use Gastrointestinal/Abdominal: Soft, No Tenderness, No Distention Extremity: Bilateral: Atraumatic, Normal Color And Temperature, Normal ROM Neurological/Psych: Normal Speech, Other (Awake, alert) ED Course And Treatment O2 Sat by Pulse Oximetry: 98 (RA) Pulse Ox Interpretation: Normal Medical Decision Making Medical Decision Making: Impression: alcohol intoxication Time: 1:39 Plan: * Accucheck Finger stick is 118. Patient is resting comfortably. Disposition Counseled Patient/Family Regarding: Diagnosis - Disposition Referrals: [facility] [Outside] Disposition: HOME/ ROUTINE Disposition Time: 06:09 Condition: STABLE Instructions: Alcohol Abuse and Alcoholism (DC) Forms: [facility] (Algerian) - POA Present On Arrival: None - Clinical Impression Clinical Impression: Alcohol intoxication - Scribe Statement The provider has reviewed the documentation as recorded by the Scribe (Leah Gunter) Provider Attestation: All medical record entries made by the Scribe were at my direction and personally dictated by me. I have reviewed the chart and agree that the record accurately reflects my personal performance of the history, physical exam, medical decision making, and the department course for this patient. I have also personally directed, reviewed, and agree with the discharge instructions and disposition.
[2018-01-21 04:24] VITALS: TEMP 98.2
[2018-01-21 05:45] VITALS: BP 121/64; PULSE 91; RESP 19
[2018-01-21 06:09] VITALS: O2SAT 98
== END 2018-01-21 06:28 | disposition home or self-care (01) ==
LOC: C.ER 01:16
DX: F10.129 Alcohol abuse with intoxication, unspecified (principal); Y90.9 Presence of alcohol in blood, level not specified

== ENCOUNTER 2018-01-21 21:02 | Emergency (ER) | payer SELFPAY ==
[2018-01-21 21:03] VITALS: BMI 29.7
[2018-01-21 21:10] VITALS: BP 140/81; PULSE 95; RESP 20; TEMP 97.9; O2SAT 97
--- NOTE | 2018-01-21 21:14 | C.PDOC ---
Time Seen by Provider: 01/21/18 21:13 Chief Complaint (Nursing): Medical Clearance Past Medical History Vital Signs: Last Vital Signs Temp 97.9 F 01/21/18 21:08 Pulse 95 H 01/21/18 21:08 Resp 20 01/21/18 21:08 BP 140/81 01/21/18 21:08 Pulse Ox 97 01/21/18 21:08 - Medical History PMH: Anxiety, Arthritis, Bronchitis, CAD, Depression, Diabetes (Pt. did not disclose to proposal manager writer, not aware), Fractures (RIGHT ARM), Gastritis, Gall Bladder Disease (s/p cholecystectomy), HTN, Post Traumatic Stress Disorder, Rheumatoid Arthritis, Seizures, Chronic Pain Denies: Chronic Kidney Disease Surgical History: Cholecystectomy - [facility] Procedures ALCOHOL DETOXIFICATION (07/04/15) APPLICATION OF SPLINT (03/20/13) CLOSURE SKIN & SUBCUTANEOUS NEC (08/14/13) DETOXIFICATION SERVICES FOR SUBSTANCE ABUSE TREATMENT (03/22/16) ESOPHAGOGASTRODUODENOSCOPY [EGD] W/CLOSED BIOPSY (02/16/15) OTHER GROUP THERAPY (03/12/13) PHYSICAL THERAPY NEC (07/04/15) TETANUS TOXOID ADMINIST (01/19/14) Family History: States: Unknown Family Hx - Social History Hx Tobacco Use: No Hx Alcohol Use: Yes Hx Substance Use: No - Immunization History Hx Tetanus Toxoid Vaccination: No Hx Influenza Vaccination: No Hx Pneumococcal Vaccination: No ED Course And Treatment O2 Sat by Pulse Oximetry: 97 Disposition Counseled Patient/Family Regarding: Studies Performed, Diagnosis, Need For Followup - Disposition Disposition: HOME/ ROUTINE Disposition Time: 21:13 Condition: FAIR Instructions: Alcohol Abuse and Alcoholism (DC) Forms: [employer] [facility] (Frisian) - Clinical Impression Clinical Impression: Alcohol intoxication, Alcoholism /alcohol abuse, Chronic alcoholism
--- NOTE | 2018-01-21 21:28 | C.PDOC ---
History Of Present Illness 57 y/o male presents to the ED requesting a place to stay the night. Patient admits to drinking alcohol today. No physical complaints offered. Denies any suicidal or homicidal ideation. Patient is eating a sandwich in the waiting room. Time Seen by Provider: 01/21/18 21:13 Chief Complaint (Nursing): Medical Clearance History Per: Patient History/Exam Limitations: no limitations Modifying Factor(s): Alcohol Past Medical History Reviewed: Historical Data, Nursing Documentation, Vital Signs Vital Signs: Last Vital Signs Temp 97.9 F 01/21/18 21:08 Pulse 95 H 01/21/18 21:08 Resp 20 01/21/18 21:08 BP 140/81 01/21/18 21:08 Pulse Ox 97 01/21/18 21:35 - Medical History PMH: Anxiety, Arthritis, Bronchitis, CAD, Depression, Diabetes (Pt. did not disclose to underwriter solicitation director, not aware), Fractures (RIGHT ARM), Gastritis, Gall Bladder Disease (s/p cholecystectomy), HTN, Post Traumatic Stress Disorder, Rheumatoid Arthritis, Seizures, Chronic Pain Denies: Chronic Kidney Disease Surgical History: Cholecystectomy - [facility] Procedures ALCOHOL DETOXIFICATION (07/04/15) APPLICATION OF SPLINT (03/20/13) CLOSURE SKIN & SUBCUTANEOUS NEC (08/14/13) DETOXIFICATION SERVICES FOR SUBSTANCE ABUSE TREATMENT (03/22/16) ESOPHAGOGASTRODUODENOSCOPY [EGD] W/CLOSED BIOPSY (02/16/15) OTHER GROUP THERAPY (03/12/13) PHYSICAL THERAPY NEC (07/04/15) TETANUS TOXOID ADMINIST (01/19/14) Family History: States: Unknown Family Hx - Social History Hx Tobacco Use: No Hx Alcohol Use: Yes Hx Substance Use: No - Immunization History Hx Tetanus Toxoid Vaccination: No Hx Influenza Vaccination: No Hx Pneumococcal Vaccination: No Review Of Systems Except As Marked, All Systems Reviewed And Found Negative. Constitutional: Negative for: Fever Cardiovascular: Negative for: Chest Pain Respiratory: Negative for: Shortness of Breath Psych: Negative for: Suicidal ideation Physical Exam - Physical Exam Appears: No Acute Distress, Unkempt, Other (Foul-smelling) Skin: Warm, Dry Head: Atraumatic, Normacephalic Eye(s): bilateral: Normal Inspection, PERRL, EOMI Nose: Normal Oral Mucosa: Moist Neck: Normal ROM, Supple Chest: Symmetrical Cardiovascular: Rhythm Regular Respiratory: Normal Breath Sounds, No Accessory Muscle Use Gastrointestinal/Abdominal: Soft, No Tenderness, No Distention Extremity: Bilateral: Atraumatic, Normal Color And Temperature Neurological/Psych: Oriented x3, Other (+ AOB, Responsive to questions) Gait: Steady ED Course And Treatment O2 Sat by Pulse Oximetry: 97 (RA) Pulse Ox Interpretation: Normal Medical Decision Making Medical Decision Making: Impression: typical alcohol abuse, malingering eating without airway compromise while waiting in waiting room has money for detention/bus/taxi/hotel/alcohol WALKED w stable gait to ED- low falls risk. Disposition Counseled Patient/Family Regarding: Diagnosis, Need For Followup - Disposition Referrals: Alcoholics Anonymous [Outside] [facility] [Outside] [facility] [Outside] [facility] [Outside] Disposition: HOME/ ROUTINE Disposition Time: 21:20 Condition: FAIR Additional Instructions: seek nightly detention placement stop alcohol abuse Instructions: Alcohol Use - When Is Drinking a Problem?, Alcohol Abuse and Alcoholism (DC) Forms: [facility] (Irish) - POA Present On Arrival: None - Clinical Impression Clinical Impression: Alcohol intoxication, Alcoholism /alcohol abuse, Chronic alcoholism - Scribe Statement The provider has reviewed the documentation as recorded by the Jada Gunter Provider Attestation: All medical record entries made by the Rominaibjosé miguel were at my direction and personally dictated by me. I have reviewed the chart and agree that the record accurately reflects my personal performance of the history, physical exam, medical decision making, and the department course for this patient. I have also personally directed, reviewed, and agree with the discharge instructions and disposition.
== END 2018-01-21 21:36 | disposition home or self-care (01) ==
LOC: C.ER 21:02
DX: F10.229 Alcohol dependence with intoxication, unspecified (principal); Y90.9 Presence of alcohol in blood, level not specified

== ENCOUNTER 2018-01-22 22:02 | Emergency (ER) | payer SELFPAY ==
[2018-01-22 22:02] VITALS: BMI 29.7
--- NOTE | 2018-01-22 23:17 | C.PDOC ---
History Of Present Illness 57 y/o male presents to the ED requesting a place to stay the night. Patient admits to drinking alcohol today. No homicidal or suicidal ideation. Patient offers no physical complaints. Time Seen by Provider: 01/22/18 23:14 Chief Complaint (Nursing): Substance Abuse History Per: Patient History/Exam Limitations: intoxication Onset/Duration Of Symptoms: Days Current Symptoms Are (Timing): Still Present Suicide/Self Injury Attempted (Context): None Modifying Factor(s): Alcohol Severity: None Pain Scale Rating Of: 0 Involuntary Hold By: None Recent travel outside of the [place]: No Past Medical History Reviewed: Historical Data, Nursing Documentation, Vital Signs Vital Signs: Last Vital Signs Temp 98.3 F 01/23/18 04:04 Pulse 89 01/23/18 04:04 Resp 18 01/23/18 04:04 BP 156/94 H 01/23/18 04:04 Pulse Ox 96 01/23/18 04:04 - Medical History PMH: Anxiety, Arthritis, Bronchitis, CAD, Depression, Diabetes (Pt. did not disclose to lyric writer, not aware), Fractures (RIGHT ARM), Gastritis, Gall Bladder Disease (s/p cholecystectomy), HTN, Post Traumatic Stress Disorder, Rheumatoid Arthritis, Seizures, Chronic Pain Denies: Chronic Kidney Disease Surgical History: Cholecystectomy - [facility] Procedures ALCOHOL DETOXIFICATION (07/04/15) APPLICATION OF SPLINT (03/20/13) CLOSURE SKIN & SUBCUTANEOUS NEC (08/14/13) DETOXIFICATION SERVICES FOR SUBSTANCE ABUSE TREATMENT (03/22/16) ESOPHAGOGASTRODUODENOSCOPY [EGD] W/CLOSED BIOPSY (02/16/15) OTHER GROUP THERAPY (03/12/13) PHYSICAL THERAPY NEC (07/04/15) TETANUS TOXOID ADMINIST (01/19/14) Family History: States: Unknown Family Hx - Social History Hx Tobacco Use: No Hx Alcohol Use: Yes Hx Substance Use: No - Immunization History Hx Tetanus Toxoid Vaccination: No Hx Influenza Vaccination: No Hx Pneumococcal Vaccination: No Review Of Systems Except As Marked, All Systems Reviewed And Found Negative. Constitutional: Negative for: Fever Cardiovascular: Negative for: Chest Pain Respiratory: Negative for: Shortness of Breath Psych: Negative for: Suicidal ideation Physical Exam - Physical Exam Appears: Non-toxic, No Acute Distress Skin: Warm, Dry Head: Normacephalic Eye(s): bilateral: Normal Inspection Oral Mucosa: Moist Neck: Supple Chest: Symmetrical Cardiovascular: Rhythm Regular Respiratory: No Rales, No Rhonchi, No Wheezing Gastrointestinal/Abdominal: Soft, No Tenderness, No Distention Extremity: Bilateral: Atraumatic, Normal ROM Pulses: Left Dorsalis Pedis: Normal, Right Dorsalis Pedis: Normal Neurological/Psych: Other (Sleeping but arousable to verbal stimuli) ED Course And Treatment O2 Sat by Pulse Oximetry: 98 (RA) Pulse Ox Interpretation: Normal Progress Note: Patient requires no further treatment in the ED. Stable for d/c home. Disposition Counseled Patient/Family Regarding: Studies Performed, Diagnosis, Need For Followup - Disposition Disposition: HOME/ ROUTINE Disposition Time: 23:16 Condition: FAIR Instructions: Alcohol Abuse and Alcoholism (DC) Forms: [facility] (Spanish) - POA Present On Arrival: None - Clinical Impression Clinical Impression: Alcohol intoxication, Alcoholism /alcohol abuse - Scribe Statement The provider has reviewed the documentation as recorded by the Scribe (Leah Gunter) Provider Attestation: All medical record entries made by the Scribe were at my direction and personally dictated by me. I have reviewed the chart and agree that the record accurately reflects my personal performance of the history, physical exam, medical decision making, and the department course for this patient. I have also personally directed, reviewed, and agree with the discharge instructions and disposition.
[2018-01-23 04:06] VITALS: RESP 18; TEMP 98.3
[2018-01-23 05:57] VITALS: BP 150/90; PULSE 78; O2SAT 96
== END 2018-01-23 05:53 | disposition home or self-care (01) ==
LOC: C.ER 22:02
DX: F10.229 Alcohol dependence with intoxication, unspecified (principal)

== ENCOUNTER 2018-01-23 20:24 | Emergency (ER) | payer SELFPAY ==
[2018-01-23 20:25] VITALS: BMI 29.7
[2018-01-23 20:50] VITALS: RESP 16
--- NOTE | 2018-01-23 21:08 | C.PDOC ---
History Of Present Illness Patient presents to the ER with acute ETOH intoxication, requesting a place to spend the night. Denies any other complaints. Time Seen by Provider: 01/23/18 21:06 Chief Complaint (Nursing): Substance Abuse History Per: Patient History/Exam Limitations: no limitations Onset/Duration Of Symptoms: Hrs Current Symptoms Are (Timing): Still Present Suicide/Self Injury Attempted (Context): None Modifying Factor(s): Alcohol Severity: None Pain Scale Rating Of: 0 Associated Symptoms: denies: Depression, Suicidal Thoughts Involuntary Hold By: None Recent travel outside of the [place]: No Past Medical History Reviewed: Historical Data, Nursing Documentation, Vital Signs Vital Signs: Last Vital Signs Temp 98 F 01/24/18 01:35 Pulse 89 01/24/18 01:35 Resp 16 01/24/18 01:35 BP 123/70 01/24/18 01:35 Pulse Ox 94 L 01/24/18 01:35 - Medical History PMH: Anxiety, Arthritis, Bronchitis, CAD, Depression, Diabetes (Pt. 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 letterer or painter, not aware), Fractures (RIGHT ARM), Gastritis, Gall Bladder Disease (s/p cholecystectomy), HTN, Post Traumatic Stress Disorder, Rheumatoid Arthritis, Seizures, Chronic Pain Surgical History: Cholecystectomy - [facility] Procedures ALCOHOL DETOXIFICATION (07/04/15) APPLICATION OF SPLINT (03/20/13) CLOSURE SKIN & SUBCUTANEOUS NEC (08/14/13) DETOXIFICATION SERVICES FOR SUBSTANCE ABUSE TREATMENT (03/22/16) ESOPHAGOGASTRODUODENOSCOPY [EGD] W/CLOSED BIOPSY (02/16/15) OTHER GROUP THERAPY (03/12/13) PHYSICAL THERAPY NEC (07/04/15) TETANUS TOXOID ADMINIST (01/19/14) Family History: States: No Known Family Hx - Social History Hx Tobacco Use: No Hx Alcohol Use: Yes Hx Substance Use: No - Immunization History Hx Tetanus Toxoid Vaccination: No Hx Influenza Vaccination: No Hx Pneumococcal Vaccination: No Review Of Systems Constitutional: Negative for: Fever, Chills Respiratory: Negative for: Cough Gastrointestinal: Negative for: Nausea, Vomiting, Diarrhea Physical Exam - Physical Exam Appears: Non-toxic, Other (ETOH on breath, no sign of injury) Skin: Warm, Dry Head: Normacephalic Oral Mucosa: Moist Chest: Symmetrical, No Tenderness Cardiovascular: Rhythm Regular Respiratory: No Rales, No Rhonchi, No Wheezing Gastrointestinal/Abdominal: Soft, No Tenderness Neurological/Psych: Oriented x3 ED Course And Treatment O2 Sat by Pulse Oximetry: 97 (Room air) Pulse Ox Interpretation: Normal Reevaluation Time: 05:21 Reassessment Condition: Improved Disposition Counseled Patient/Family Regarding: Studies Performed, Diagnosis, Need For Followup - Disposition Referrals: [facility] at [facility] [Outside] Disposition: HOME/ ROUTINE Disposition Time: 21:07 Condition: FAIR Forms: [email or web address] (Amharic) - Clinical Impression Clinical Impression: Alcohol intoxication, Alcoholism /alcohol abuse - Scribe Statement The provider has reviewed the documentation as recorded by the Scribe Fabián Ramirez All medical record entries made by the Scribe were at my direction and personally dictated by me. I have reviewed the chart and agree that the record accurately reflects my personal performance of the history, physical exam, medical decision making, and the department course for this patient. I have also personally directed, reviewed, and agree with the discharge instructions and disposition.
[2018-01-24 06:21] VITALS: BP 146/88; PULSE 90; TEMP 98.5; O2SAT 97
== END 2018-01-24 06:44 | disposition home or self-care (01) ==
LOC: C.ER 20:24
DX: F10.229 Alcohol dependence with intoxication, unspecified (principal); Y90.9 Presence of alcohol in blood, level not specified

== ENCOUNTER 2018-01-25 06:18 | Emergency (ER) | payer SELFPAY ==
[2018-01-25 06:18] VITALS: BMI 29.7
--- NOTE | 2018-01-25 07:42 | C.PDOC ---
History Of Present Illness 57 year old male, with history of alcohol abuse, is brought to ED via [facility] for public intoxication. Patient is well known to ED staff for multiple prior visits for alcohol intoxication. Otherwise, denies any chest pain, shortness of breath, n/v/d, abdominal pain, dizziness, or any other physical complaints at this time. Time Seen by Provider: 01/25/18 07:12 Chief Complaint (Nursing): Substance Abuse History Per: EMS History/Exam Limitations: no limitations Onset/Duration Of Symptoms: Gradual Current Symptoms Are (Timing): Still Present Suicide/Self Injury Attempted (Context): None Modifying Factor(s): Alcohol Severity: None Pain Scale Rating Of: 0 Associated Symptoms: denies: Suicidal Thoughts, Suicidal Plan Involuntary Hold By: None Recent travel outside of the [place]: No Additional History Per: Prior Records Past Medical History Reviewed: Historical Data, Nursing Documentation, Vital Signs Vital Signs: Last Vital Signs Temp 98.6 F 01/25/18 13:06 Pulse 88 01/25/18 13:06 Resp 16 01/25/18 13:06 BP 146/90 01/25/18 13:06 Pulse Ox 97 01/25/18 13:06 - Medical History PMH: Anxiety, Arthritis, Bronchitis, CAD, Depression, Diabetes (Pt. did not disclose to residential mortgage underwriter, not aware), Fractures (RIGHT ARM), Gastritis, Gall Bladder Disease (s/p cholecystectomy), HTN, Post Traumatic Stress Disorder, Rheumatoid Arthritis, Seizures, Chronic Pain Denies: Chronic Kidney Disease Surgical History: Cholecystectomy - [facility] Procedures ALCOHOL DETOXIFICATION (07/04/15) APPLICATION OF SPLINT (03/20/13) CLOSURE SKIN & SUBCUTANEOUS NEC (08/14/13) DETOXIFICATION SERVICES FOR SUBSTANCE ABUSE TREATMENT (03/22/16) ESOPHAGOGASTRODUODENOSCOPY [EGD] W/CLOSED BIOPSY (02/16/15) OTHER GROUP THERAPY (03/12/13) PHYSICAL THERAPY NEC (07/04/15) TETANUS TOXOID ADMINIST (01/19/14) Family History: States: Unknown Family Hx - Social History Hx Tobacco Use: No Hx Alcohol Use: Yes Hx Substance Use: No - Immunization History Hx Tetanus Toxoid Vaccination: No Hx Influenza Vaccination: No Hx Pneumococcal Vaccination: No Review Of Systems Except As Marked, All Systems Reviewed And Found Negative. Constitutional: Negative for: Fever, Chills Cardiovascular: Negative for: Chest Pain, Palpitations Respiratory: Negative for: Cough, Shortness of Breath Gastrointestinal: Negative for: Nausea, Vomiting, Abdominal Pain, Diarrhea Musculoskeletal: Negative for: Neck Pain, Back Pain Neurological: Negative for: Headache, Dizziness Psych: Negative for: Suicidal ideation Physical Exam - Physical Exam Appears: Non-toxic, No Acute Distress, Other (sleeping) Skin: Normal Color, Warm, Dry Head: Atraumatic, Normacephalic Eye(s): bilateral: Normal Inspection Oral Mucosa: Moist, Other (EtOH on breath) Neck: Normal ROM, Supple Cardiovascular: Rhythm Regular Respiratory: No Accessory Muscle Use Extremity: Normal ROM, No Deformity Neurological/Psych: Oriented x3 ED Course And Treatment O2 Sat by Pulse Oximetry: 98 (RA) Pulse Ox Interpretation: Normal Medical Decision Making Medical Decision Making: On re-evaluation, patient is resting comfortably, no acute distress. Patient observed in ED for hours until clinically sober. Patient was observed to ambulate to bathroom. Patient wanted to shower and given supplies. Patient stable for discharge. Disposition Counseled Patient/Family Regarding: Diagnosis, Need For Followup - Disposition Referrals: Non [facility] Provider, [Primary Care Provider] - Disposition: HOME/ ROUTINE Disposition Time: 13:30 Condition: STABLE Instructions: Alcohol Abuse and Alcoholism (DC) Forms: [employer] (Malay) - POA Present On Arrival: None - Clinical Impression Clinical Impression: Alcohol abuse, daily use - PA / TURBOGENERATOR OPERATOR / 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 - Scribe Statement The provider has reviewed the documentation as recorded by the Rominaibjosé miguel Fajardo All medical record entries made by the Jada were at my direction and personally dictated by me. I have reviewed the chart and agree that the record accurately reflects my personal performance of the history, physical exam, medical decision making, and the department course for this patient. I have also personally directed, reviewed, and agree with the discharge instructions and disposition.
[2018-01-25 13:07] VITALS: BP 146/90; PULSE 88; RESP 16; TEMP 98.6
[2018-01-25 15:38] VITALS: O2SAT 98
== END 2018-01-25 13:44 | disposition home or self-care (01) ==
LOC: SUPCPDRO 06:18 → C.ER 06:18
DX: F10.129 Alcohol abuse with intoxication, unspecified (principal); Y90.9 Presence of alcohol in blood, level not specified

== ENCOUNTER 2018-01-26 02:07 | Emergency (ER) | payer SELFPAY ==
[2018-01-26 02:08] VITALS: BMI 29.7
[2018-01-26 02:18] VITALS: BP 135/83; PULSE 94; RESP 16; TEMP 97.7; O2SAT 97
--- NOTE | 2018-01-26 02:26 | C.PDOC ---
Time Seen by Provider: 01/26/18 02:23 Chief Complaint (Nursing): Substance Abuse Past Medical History Vital Signs: Last Vital Signs Temp 97.7 F 01/26/18 02:16 Pulse 94 H 01/26/18 02:16 Resp 16 01/26/18 02:16 BP 135/83 01/26/18 02:16 Pulse Ox 97 01/26/18 02:16 - Medical History PMH: Anxiety, Arthritis, Bronchitis, CAD, Depression, Diabetes (Pt. did not disclose to marketing copywriter, not aware), Fractures (RIGHT ARM), Gastritis, Gall Bladder Disease (s/p cholecystectomy), HTN, Post Traumatic Stress Disorder, Rheumatoid Arthritis, Seizures, Chronic Pain Denies: Chronic Kidney Disease Surgical History: Cholecystectomy - [facility] Procedures ALCOHOL DETOXIFICATION (07/04/15) APPLICATION OF SPLINT (03/20/13) CLOSURE SKIN & SUBCUTANEOUS NEC (08/14/13) DETOXIFICATION SERVICES FOR SUBSTANCE ABUSE TREATMENT (03/22/16) ESOPHAGOGASTRODUODENOSCOPY [EGD] W/CLOSED BIOPSY (02/16/15) OTHER GROUP THERAPY (03/12/13) PHYSICAL THERAPY NEC (07/04/15) TETANUS TOXOID ADMINIST (01/19/14) Family History: States: Unknown Family Hx - Social History Hx Tobacco Use: No Hx Alcohol Use: Yes Hx Substance Use: No - Immunization History Hx Tetanus Toxoid Vaccination: No Hx Influenza Vaccination: No Hx Pneumococcal Vaccination: No ED Course And Treatment O2 Sat by Pulse Oximetry: 97 Medical Decision Making Medical Decision Making: typical alcohol intox, no acute issues ambulatory well dressed for cold weather malingering. Disposition Doctor Will See Patient In The: Office Counseled Patient/Family Regarding: Studies Performed, Diagnosis - Disposition Disposition: HOME/ ROUTINE Disposition Time: 02:26 Condition: GOOD - Clinical Impression Clinical Impression: Homeless single person, Alcohol abuse, daily use
== END 2018-01-26 02:42 | disposition home or self-care (01) ==
LOC: C.ER 02:07
DX: F10.229 Alcohol dependence with intoxication, unspecified (principal); Z59.0 Homelessness

== ENCOUNTER 2018-01-26 22:44 | Emergency (ER) | payer SELFPAY ==
[2018-01-26 22:45] VITALS: BMI 29.7
[2018-01-26 23:39] VITALS: TEMP 97.7
--- NOTE | 2018-01-26 23:46 | C.PDOC ---
History Of Present Illness 57 y/o male presents to the ED requesting a place to stay the night. Patient admits to drinking alcohol today. No physical complaints. He denies having suicidal or homicidal ideation. Time Seen by Provider: 01/26/18 23:44 Chief Complaint (Nursing): Substance Abuse History Per: Patient History/Exam Limitations: intoxication Onset/Duration Of Symptoms: Days Current Symptoms Are (Timing): Still Present Suicide/Self Injury Attempted (Context): None Modifying Factor(s): Alcohol Severity: None Pain Scale Rating Of: 0 Involuntary Hold By: None Recent travel outside of the [place]: No Past Medical History Reviewed: Historical Data, Nursing Documentation, Vital Signs Vital Signs: Last Vital Signs Temp 97.7 F 01/26/18 23:35 Pulse 88 01/27/18 03:18 Resp 16 01/27/18 03:18 BP 112/76 01/27/18 03:18 Pulse Ox 96 01/27/18 03:18 - Medical History PMH: Anxiety, Arthritis, Bronchitis, CAD, Depression, Diabetes (Pt. did not disclose to brief writer, not aware), Fractures (RIGHT ARM), Gastritis, Gall Bladder Disease (s/p cholecystectomy), HTN, Post Traumatic Stress Disorder, Rheumatoid Arthritis, Seizures, Chronic Pain Denies: Chronic Kidney Disease Surgical History: Cholecystectomy - [facility] Procedures ALCOHOL DETOXIFICATION (07/04/15) APPLICATION OF SPLINT (03/20/13) CLOSURE SKIN & SUBCUTANEOUS NEC (08/14/13) DETOXIFICATION SERVICES FOR SUBSTANCE ABUSE TREATMENT (03/22/16) ESOPHAGOGASTRODUODENOSCOPY [EGD] W/CLOSED BIOPSY (02/16/15) OTHER GROUP THERAPY (03/12/13) PHYSICAL THERAPY NEC (07/04/15) TETANUS TOXOID ADMINIST (01/19/14) Family History: States: Unknown Family Hx - Social History Hx Tobacco Use: No Hx Alcohol Use: Yes Hx Substance Use: No - Immunization History Hx Tetanus Toxoid Vaccination: No Hx Influenza Vaccination: No Hx Pneumococcal Vaccination: No Review Of Systems Constitutional: Negative for: Fever Respiratory: Negative for: Shortness of Breath Gastrointestinal: Negative for: Abdominal Pain Psych: Positive for: Other (alcohol intoxication). Negative for: Suicidal ideation Physical Exam - Physical Exam Appears: No Acute Distress, Other (alcohol on breath) Skin: Warm, Dry Head: Normacephalic Eye(s): bilateral: Normal Inspection Oral Mucosa: Moist Neck: Trachea Midline, Supple Chest: Symmetrical Cardiovascular: Rhythm Regular Respiratory: No Rales, No Rhonchi, No Wheezing Gastrointestinal/Abdominal: Soft, No Tenderness, No Distention Extremity: Bilateral: Atraumatic, Normal ROM Pulses: Left Dorsalis Pedis: Normal, Right Dorsalis Pedis: Normal Neurological/Psych: Oriented x3 ED Course And Treatment O2 Sat by Pulse Oximetry: 98 (RA) Pulse Ox Interpretation: Normal Progress Note: Patient has no acute complaints and requires no further ED intervention at this time. Resources for alcohol abuse and homelessness provided. Patient is stable for d/c home Reevaluation Time: 05:00 Reassessment Condition: Improved Disposition Counseled Patient/Family Regarding: Studies Performed, Diagnosis, Need For Followup - Disposition Referrals: [facility] [Outside] Disposition: HOME/ ROUTINE Disposition Time: 23:45 Condition: FAIR Instructions: Alcohol Abuse and Alcoholism (DC) Forms: [employer] (Korean) - POA Present On Arrival: None - Clinical Impression Clinical Impression: Alcohol intoxication, Alcoholism /alcohol abuse - Scribe Statement The provider has reviewed the documentation as recorded by the Jada Gunter Provider Attestation: All medical record entries made by the Rominaibjosé miguel were at my direction and personally dictated by me. I have reviewed the chart and agree that the record accurately reflects my personal performance of the history, physical exam, medical decision making, and the department course for this patient. I have also personally directed, reviewed, and agree with the discharge instructions and disposition.
[2018-01-27 03:20] VITALS: PULSE 88
[2018-01-27 05:01] VITALS: O2SAT 98
[2018-01-27 06:04] VITALS: BP 134/81; RESP 20
== END 2018-01-27 06:04 | disposition home or self-care (01) ==
LOC: C.ER 22:44
DX: F10.229 Alcohol dependence with intoxication, unspecified (principal)

== ENCOUNTER 2018-01-28 01:30 | Emergency (ER) | payer SELFPAY ==
[2018-01-28 01:31] VITALS: BMI 29.7
[2018-01-28 01:44] VITALS: RESP 16
--- NOTE | 2018-01-28 01:44 | C.PDOC ---
History Of Present Illness 57 y/o male presents to the ED requesting a place to stay the night. Patient admits to drinking heavily today. No physical complaints. Denies having suicidal or homicidal ideation. Time Seen by Provider: 01/28/18 01:42 Chief Complaint (Nursing): Substance Abuse History Per: Patient History/Exam Limitations: no limitations Onset/Duration Of Symptoms: Days Current Symptoms Are (Timing): Still Present Suicide/Self Injury Attempted (Context): None Modifying Factor(s): Alcohol Severity: None Pain Scale Rating Of: 0 Recent travel outside of the [place]: No Past Medical History Reviewed: Historical Data, Nursing Documentation, Vital Signs Vital Signs: Last Vital Signs Temp 97.4 F L 01/28/18 01:41 Pulse 85 01/28/18 01:41 Resp 16 01/28/18 01:41 BP 134/92 H 01/28/18 01:41 Pulse Ox 98 01/28/18 01:53 - Medical History PMH: Anxiety, Arthritis, Bronchitis, CAD, Depression, Diabetes (Pt. did not disclose to expert medical writer, not aware), Fractures (RIGHT ARM), Gastritis, Gall Bladder Disease (s/p cholecystectomy), HTN, Post Traumatic Stress Disorder, Rheumatoid Arthritis, Seizures, Chronic Pain Denies: Chronic Kidney Disease Surgical History: Cholecystectomy - [facility] Procedures ALCOHOL DETOXIFICATION (07/04/15) APPLICATION OF SPLINT (03/20/13) CLOSURE SKIN & SUBCUTANEOUS NEC (08/14/13) DETOXIFICATION SERVICES FOR SUBSTANCE ABUSE TREATMENT (03/22/16) ESOPHAGOGASTRODUODENOSCOPY [EGD] W/CLOSED BIOPSY (02/16/15) OTHER GROUP THERAPY (03/12/13) PHYSICAL THERAPY NEC (07/04/15) TETANUS TOXOID ADMINIST (01/19/14) Family History: States: Unknown Family Hx - Social History Hx Tobacco Use: No Hx Alcohol Use: Yes Hx Substance Use: No - Immunization History Hx Tetanus Toxoid Vaccination: No Hx Influenza Vaccination: No Hx Pneumococcal Vaccination: No Review Of Systems Constitutional: Negative for: Fever Respiratory: Negative for: Shortness of Breath Psych: Negative for: Suicidal ideation Physical Exam - Physical Exam Appears: Non-toxic, No Acute Distress, Other (Alcohol on breath) Skin: Warm, Dry Head: Normacephalic Eye(s): bilateral: Normal Inspection Oral Mucosa: Moist Neck: Supple Chest: Symmetrical Cardiovascular: Rhythm Regular Respiratory: No Rales, No Rhonchi, No Wheezing Gastrointestinal/Abdominal: Soft, No Tenderness, No Distention Extremity: Bilateral: Atraumatic, Normal ROM Neurological/Psych: Oriented x3 Gait: Steady ED Course And Treatment O2 Sat by Pulse Oximetry: 98 (RA) Pulse Ox Interpretation: Normal Progress Note: Patient is resting comfortably, in no acute distress. No acute complaints at this time. Speech is clear. Patient is stable for discharge home Reevaluation Time: 04:46 Reassessment Condition: Improved Disposition Counseled Patient/Family Regarding: Studies Performed, Diagnosis, Need For Followup - Disposition Referrals: [facility] [Outside] Disposition: HOME/ ROUTINE Disposition Time: 01:43 Condition: FAIR Instructions: Alcohol Abuse and Alcoholism (DC) Forms: [employer] (Nauruan) - Clinical Impression Clinical Impression: Alcoholic intoxication, Alcohol abuse, daily use - Scribe Statement The provider has reviewed the documentation as recorded by the Scribe (Leah Gunter) Provider Attestation: All medical record entries made by the Scribe were at my direction and personally dictated by me. I have reviewed the chart and agree that the record accurately reflects my personal performance of the history, physical exam, medical decision making, and the department course for this patient. I have also personally directed, reviewed, and agree with the discharge instructions and disposition.
[2018-01-28 05:12] VITALS: BP 148/87; PULSE 100; TEMP 97.6; O2SAT 97
== END 2018-01-28 05:12 | disposition home or self-care (01) ==
LOC: C.ER 01:30
DX: F10.129 Alcohol abuse with intoxication, unspecified (principal); Y90.9 Presence of alcohol in blood, level not specified

== ENCOUNTER 2018-01-28 13:09 | Emergency (ER) | payer SELFPAY ==
[2018-01-28 13:09] VITALS: BMI 29.7
[2018-01-28 13:14] VITALS: BP 126/79; PULSE 86; RESP 18; TEMP 97.4; O2SAT 98
--- NOTE | 2018-01-28 14:29 | C.PDOC ---
History Of Present Illness 57 year old male, with history of alcohol abuse, is brought to ED via [facility] for public intoxication. Patient is well known to ED staff for multiple prior visits for alcohol intoxication. Patient currently denies any fever, chills, chest pain, shortness of breath, abdominal pain, nausea or vomiting. He has no other complaints. Time Seen by Provider: 01/28/18 14:11 Chief Complaint (Nursing): Substance Abuse History Per: Patient Modifying Factor(s): Alcohol Past Medical History Reviewed: Historical Data, Nursing Documentation, Vital Signs Vital Signs: Last Vital Signs Temp 97.4 F L 01/28/18 13:13 Pulse 86 01/28/18 13:13 Resp 18 01/28/18 13:13 BP 126/79 01/28/18 13:13 Pulse Ox 98 01/28/18 18:31 - Medical History PMH: Anxiety, Arthritis, Bronchitis, CAD, Depression, Diabetes (Pt. 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 automatic, not aware), Fractures (RIGHT ARM), Gastritis, Gall Bladder Disease (s/p cholecystectomy), HTN, Post Traumatic Stress Disorder, Rheumatoid Arthritis, Seizures, Chronic Pain Denies: Chronic Kidney Disease Surgical History: Cholecystectomy - [facility] Procedures ALCOHOL DETOXIFICATION (07/04/15) APPLICATION OF SPLINT (03/20/13) CLOSURE SKIN & SUBCUTANEOUS NEC (08/14/13) DETOXIFICATION SERVICES FOR SUBSTANCE ABUSE TREATMENT (03/22/16) ESOPHAGOGASTRODUODENOSCOPY [EGD] W/CLOSED BIOPSY (02/16/15) OTHER GROUP THERAPY (03/12/13) PHYSICAL THERAPY NEC (07/04/15) TETANUS TOXOID ADMINIST (01/19/14) Family History: States: Unknown Family Hx - Social History Hx Tobacco Use: No Hx Alcohol Use: Yes Hx Substance Use: No - Immunization History Hx Tetanus Toxoid Vaccination: No Hx Influenza Vaccination: No Hx Pneumococcal Vaccination: No Review Of Systems Except As Marked, All Systems Reviewed And Found Negative. Constitutional: Negative for: Fever Cardiovascular: Negative for: Chest Pain Physical Exam - Physical Exam Additional Physical Exam Comments: Constitutional: No acute distress. Head: Normocephalic. Atraumatic. Eyes: PERRL. ENT: Moist mucous membranes. Neck: Supple. Cardiovascular: Regular rate. Radial pulse 2+ bilaterally. Chest: No tenderness. Respiratory: Clear to auscultation bilaterally. GI: Soft. Nontender. Nondistended. Back: No CVA tenderness. Musculoskeletal: No tenderness or swelling of extremities. Skin: No rash. Neurologic: Alert, no focal deficit. ED Course And Treatment O2 Sat by Pulse Oximetry: 98 (RA) Pulse Ox Interpretation: Normal Medical Decision Making Medical Decision Makin Patient eloped. Disposition - Disposition Disposition: ELOPEMENT - ER ONLY Disposition Time: 18:38 Condition: STABLE Forms: [facility] (Congolese) - Clinical Impression Clinical Impression: Alcohol intoxication - Scribe Statement The provider has reviewed the documentation as recorded by the Scribe (Val Estrada) Provider Attestation: All medical record entries made by the Scribe were at my direction and personally dictated by me. I have reviewed the chart and agree that the record accurately reflects my personal performance of the history, physical exam, medical decision making, and the department course for this patient. I have also personally directed, reviewed, and agree with the discharge instructions and disposition.
== END 2018-01-28 14:11 | disposition left against medical advice (07) ==
LOC: C.ER 13:09
DX: F10.129 Alcohol abuse with intoxication, unspecified (principal); Y90.9 Presence of alcohol in blood, level not specified

== ENCOUNTER 2018-01-29 00:18 | Emergency (ER) | payer SELFPAY ==
[2018-01-29 00:18] VITALS: BMI 29.7
--- NOTE | 2018-01-29 00:58 | C.PDOC ---
History Of Present Illness 57 year old male with PMHx of alcohol abuse presents to the ED requesting a for a place to stay. Patient had multiple prior visit to the ED with similar presentation. Patient denies injury, fall, trauma, CP, SOB, SI/HI, hallucinations. Time Seen by Provider: 01/29/18 00:57 Chief Complaint (Nursing): Substance Abuse History Per: Patient History/Exam Limitations: intoxication Onset/Duration Of Symptoms: Hrs Current Symptoms Are (Timing): Still Present Suicide/Self Injury Attempted (Context): None Modifying Factor(s): Alcohol Associated Symptoms: denies: Depression, Suicidal Thoughts, Suicidal Plan Involuntary Hold By: None Recent travel outside of the [place]: No Additional History Per: Patient Past Medical History Reviewed: Historical Data, Nursing Documentation, Vital Signs Vital Signs: Last Vital Signs Temp 97.7 F 01/29/18 00:27 Pulse 99 H 01/29/18 00:27 Resp 18 01/29/18 00:27 BP 118/77 01/29/18 00:27 Pulse Ox 99 01/29/18 01:03 - Medical History PMH: Anxiety, Arthritis, Bronchitis, CAD, Depression, Diabetes (Pt. did not disclose to resume writer, not aware), Fractures (RIGHT ARM), Gastritis, Gall Bladder Disease (s/p cholecystectomy), HTN, Post Traumatic Stress Disorder, Rheumatoid Arthritis, Seizures, Chronic Pain Denies: Chronic Kidney Disease Surgical History: Cholecystectomy - [facility] Procedures ALCOHOL DETOXIFICATION (07/04/15) APPLICATION OF SPLINT (03/20/13) CLOSURE SKIN & SUBCUTANEOUS NEC (08/14/13) DETOXIFICATION SERVICES FOR SUBSTANCE ABUSE TREATMENT (03/22/16) ESOPHAGOGASTRODUODENOSCOPY [EGD] W/CLOSED BIOPSY (02/16/15) OTHER GROUP THERAPY (03/12/13) PHYSICAL THERAPY NEC (07/04/15) TETANUS TOXOID ADMINIST (01/19/14) Family History: States: Unknown Family Hx - Social History Hx Tobacco Use: No Hx Alcohol Use: Yes Hx Substance Use: No - Immunization History Hx Tetanus Toxoid Vaccination: No Hx Influenza Vaccination: No Hx Pneumococcal Vaccination: No Review Of Systems Constitutional: Negative for: Fever, Chills Cardiovascular: Negative for: Chest Pain Respiratory: Negative for: Shortness of Breath Gastrointestinal: Negative for: Abdominal Pain Skin: Negative for: Rash Psych: Negative for: Depression, Suicidal ideation Physical Exam - Physical Exam Appears: Non-toxic, No Acute Distress, Unkempt Skin: Warm, Dry Head: Normacephalic Eye(s): bilateral: Normal Inspection Nose: No Discharge Oral Mucosa: Moist Neck: Supple Chest: Symmetrical Cardiovascular: Rhythm Regular, No Murmur Respiratory: Normal Breath Sounds, No Rales, No Rhonchi, No Wheezing Gastrointestinal/Abdominal: Soft, No Tenderness, No Guarding, No Rebound Extremity: Normal ROM Neurological/Psych: Oriented x3 Gait: Unsteady (due to alcohol intoxication) ED Course And Treatment O2 Sat by Pulse Oximetry: 99 (On RA) Pulse Ox Interpretation: Normal Reevaluation Time: 04:52 Reassessment Condition: Improved Disposition Counseled Patient/Family Regarding: Studies Performed, Diagnosis, Need For Followup - Disposition Referrals: [facility] [Outside] Disposition: HOME/ ROUTINE Disposition Time: 00:57 Condition: FAIR Instructions: Alcohol Abuse and Alcoholism (DC) Forms: [employer] (Croatian) - Clinical Impression Clinical Impression: Alcohol intoxication, Chronic alcoholism - Scribe Statement The provider has reviewed the documentation as recorded by the Scribe Provider Attestation: Woo Brown All medical record entries made by the Scribe were at my direction and personally dictated by me. I have reviewed the chart and agree that the record accurately reflects my personal performance of the history, physical exam, medical decision making, and the department course for this patient. I have also personally directed, reviewed, and agree with the discharge instructions and disposition.
[2018-01-29 05:38] VITALS: BP 120/84; PULSE 84; RESP 20; TEMP 97.9; O2SAT 98
== END 2018-01-29 06:06 | disposition home or self-care (01) ==
LOC: C.ER 00:18 → SUPCPDRO 00:18 → C.ER 06:06
DX: F10.229 Alcohol dependence with intoxication, unspecified (principal)

== ENCOUNTER 2018-01-30 00:50 | Emergency (ER) | payer SELFPAY ==
[2018-01-30 00:50] VITALS: BMI 29.7
[2018-01-30 01:08] VITALS: RESP 20; TEMP 98.1
--- NOTE | 2018-01-30 02:51 | C.PDOC ---
History Of Present Illness 57 year old male presents to the ED with alcohol intoxication. Patient admits to drinking earlier tonight and is requesting a place to sleep for the night. Patient is familiar to the ED and has had many prior visits with similar complaint. He denies any other injuries at this time. Time Seen by Provider: 01/30/18 01:19 Chief Complaint (Nursing): Substance Abuse History Per: Patient History/Exam Limitations: intoxication Onset/Duration Of Symptoms: Hrs Current Symptoms Are (Timing): Still Present Suicide/Self Injury Attempted (Context): None Modifying Factor(s): Alcohol Associated Symptoms: denies: Suicidal Thoughts, Suicidal Plan Involuntary Hold By: None Recent travel outside of the [place]: No Additional History Per: Patient Past Medical History Reviewed: Historical Data, Nursing Documentation, Vital Signs Vital Signs: Last Vital Signs Temp 98.1 F 01/30/18 05:15 Pulse 89 01/30/18 05:15 Resp 20 01/30/18 05:15 BP 148/90 01/30/18 05:15 Pulse Ox 100 01/31/18 01:24 - Medical History PMH: Anxiety, Arthritis, Bronchitis, CAD, Depression, Diabetes (Pt. did not disclose to screen writer, not aware), Fractures (RIGHT ARM), Gastritis, Gall Bladder Disease (s/p cholecystectomy), HTN, Post Traumatic Stress Disorder, Rheumatoid Arthritis, Seizures, Chronic Pain Denies: Chronic Kidney Disease Surgical History: Cholecystectomy - [facility] Procedures ALCOHOL DETOXIFICATION (07/04/15) APPLICATION OF SPLINT (03/20/13) CLOSURE SKIN & SUBCUTANEOUS NEC (08/14/13) DETOXIFICATION SERVICES FOR SUBSTANCE ABUSE TREATMENT (03/22/16) ESOPHAGOGASTRODUODENOSCOPY [EGD] W/CLOSED BIOPSY (02/16/15) OTHER GROUP THERAPY (03/12/13) PHYSICAL THERAPY NEC (07/04/15) TETANUS TOXOID ADMINIST (01/19/14) Family History: States: Unknown Family Hx - Social History Hx Tobacco Use: No Hx Alcohol Use: Yes Hx Substance Use: No - Immunization History Hx Tetanus Toxoid Vaccination: No Hx Influenza Vaccination: No Hx Pneumococcal Vaccination: No Review Of Systems Psych: Positive for: Other (EtOH intoxication ) Physical Exam - Physical Exam Appears: Non-toxic, No Acute Distress, Other (visibly intoxicated) Skin: Normal Color, Warm, Dry Head: Atraumatic, Normacephalic Eye(s): bilateral: Normal Inspection Oral Mucosa: Moist, Other (alcohol on breath ) Neck: Supple Chest: Symmetrical, No Deformity, No Tenderness Cardiovascular: Rhythm Regular Respiratory: Normal Breath Sounds Extremity: Normal ROM, Capillary Refill (less than 2 seconds ) Neurological/Psych: Other (arousable to touch and verbal stimuli ) ED Course And Treatment O2 Sat by Pulse Oximetry: 100 (on RA) Pulse Ox Interpretation: Normal Progress Note: On reeval, Pt is awake, alert and oriented x 3, ambulatory with steady gait. Pt is stable for discharge Disposition - Disposition Referrals: [facility] [Outside] Disposition: HOME/ ROUTINE Disposition Time: 05:25 Condition: STABLE Forms: [employer] (Yoruba) - Clinical Impression Clinical Impression: Acute alcohol intoxication - PA / MANAGER TELECOM / 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 - Scribe Statement The provider has reviewed the documentation as recorded by the Scribe (Kari Fajardo) All medical record entries made by the Scribe were at my direction and personally dictated by me. I have reviewed the chart and agree that the record accurately reflects my personal performance of the history, physical exam, medical decision making, and the department course for this patient. I have also personally directed, reviewed, and agree with the discharge instructions and disposition.
[2018-01-30 05:16] VITALS: BP 148/90; PULSE 89
[2018-01-31 01:24] VITALS: O2SAT 100
== END 2018-01-30 05:18 | disposition home or self-care (01) ==
LOC: C.ER 00:50
DX: F10.129 Alcohol abuse with intoxication, unspecified (principal)

== ENCOUNTER 2018-01-30 21:33 | Emergency (ER) | payer SELFPAY ==
[2018-01-30 21:33] VITALS: BMI 29.7
[2018-01-31 00:46] VITALS: BP 155/85; PULSE 92; RESP 22; TEMP 98.8; O2SAT 96
--- NOTE | 2018-01-31 01:16 | C.PDOC ---
History Of Present Illness 57 year old male presents to the ER with acute ETOH intoxication, requesting a place to spend the night. Denies any physical complaints at this time. Time Seen by Provider: 01/30/18 21:48 Chief Complaint (Nursing): Substance Abuse History Per: Patient History/Exam Limitations: no limitations Onset/Duration Of Symptoms: Hrs Current Symptoms Are (Timing): Still Present Suicide/Self Injury Attempted (Context): None Modifying Factor(s): Alcohol Associated Symptoms: denies: Depression, Suicidal Thoughts Involuntary Hold By: None Recent travel outside of the [place]: No Past Medical History Reviewed: Historical Data, Nursing Documentation, Vital Signs Vital Signs: Last Vital Signs Temp 98.8 F 01/31/18 00:45 Pulse 92 H 01/31/18 00:45 Resp 22 01/31/18 00:45 BP 155/85 H 01/31/18 00:45 Pulse Ox 96 01/31/18 01:16 - Medical History PMH: Anxiety, Arthritis, Bronchitis, CAD, Depression, Diabetes (Pt. did not disclose to advertising copy writer, not aware), Fractures (RIGHT ARM), Gastritis, Gall Bladder Disease (s/p cholecystectomy), HTN, Post Traumatic Stress Disorder, Rheumatoid Arthritis, Seizures, Chronic Pain Surgical History: Cholecystectomy - [facility] Procedures ALCOHOL DETOXIFICATION (07/04/15) APPLICATION OF SPLINT (03/20/13) CLOSURE SKIN & SUBCUTANEOUS NEC (08/14/13) DETOXIFICATION SERVICES FOR SUBSTANCE ABUSE TREATMENT (03/22/16) ESOPHAGOGASTRODUODENOSCOPY [EGD] W/CLOSED BIOPSY (02/16/15) OTHER GROUP THERAPY (03/12/13) PHYSICAL THERAPY NEC (07/04/15) TETANUS TOXOID ADMINIST (01/19/14) Family History: States: Unknown Family Hx - Social History Hx Tobacco Use: No Hx Alcohol Use: Yes Hx Substance Use: No - Immunization History Hx Tetanus Toxoid Vaccination: No Hx Influenza Vaccination: No Hx Pneumococcal Vaccination: No Review Of Systems Except As Marked, All Systems Reviewed And Found Negative. Constitutional: Positive for: Other (ETOH intoxication) Physical Exam - Physical Exam Appears: Non-toxic, No Acute Distress, Other (ETOH on breath) Skin: Normal Color, Warm, Dry Head: Atraumatic, Normacephalic Eye(s): bilateral: Normal Inspection Oral Mucosa: Moist Chest: Symmetrical, No Tenderness Cardiovascular: Rhythm Regular Respiratory: Normal Breath Sounds, No Rales, No Rhonchi, No Wheezing Gastrointestinal/Abdominal: Soft, No Tenderness Neurological/Psych: Oriented x3, Normal Speech ED Course And Treatment O2 Sat by Pulse Oximetry: 96 Disposition - Disposition Disposition: HOME/ ROUTINE Disposition Time: 05:25 Condition: STABLE Forms: [facility] (Hungarian) - Clinical Impression Clinical Impression: Alcohol intoxication - Scribe Statement The provider has reviewed the documentation as recorded by the Scribjosé miguel Ramirez All medical record entries made by the Rominaibjosé miguel were at my direction and personally dictated by me. I have reviewed the chart and agree that the record accurately reflects my personal performance of the history, physical exam, medical decision making, and the department course for this patient. I have also personally directed, reviewed, and agree with the discharge instructions and disposition.
== END 2018-01-31 05:25 | disposition home or self-care (01) ==
LOC: C.ER 21:33
DX: F10.129 Alcohol abuse with intoxication, unspecified (principal)

== ENCOUNTER 2018-01-31 21:15 | Emergency (ER) | payer SELFPAY ==
[2018-01-31 21:16] VITALS: BMI 29.7
--- NOTE | 2018-01-31 21:52 | C.PDOC ---
History Of Present Illness Patient presents to ED for intoxicated. Patient states he needs a place to stay for the night. Denies any physical complaints. Time Seen by Provider: 01/31/18 21:51 Chief Complaint (Nursing): Substance Abuse History Per: Patient History/Exam Limitations: no limitations Onset/Duration Of Symptoms: Hrs Current Symptoms Are (Timing): Still Present Suicide/Self Injury Attempted (Context): None Modifying Factor(s): Alcohol Associated Symptoms: denies: Suicidal Thoughts, Suicidal Plan Involuntary Hold By: None Recent travel outside of the [place]: No Past Medical History Reviewed: Historical Data, Nursing Documentation, Vital Signs - Medical History PMH: Anxiety, Arthritis, Bronchitis, CAD, Depression, Diabetes (Pt. 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 writer, not aware), Fractures (RIGHT ARM), Gastritis, Gall Bladder Disease (s/p cholecystectomy), HTN, Post Traumatic Stress Disorder, Rheumatoid Arthritis, Seizures, Chronic Pain Surgical History: Cholecystectomy - [facility] Procedures ALCOHOL DETOXIFICATION (07/04/15) APPLICATION OF SPLINT (03/20/13) CLOSURE SKIN & SUBCUTANEOUS NEC (08/14/13) DETOXIFICATION SERVICES FOR SUBSTANCE ABUSE TREATMENT (03/22/16) ESOPHAGOGASTRODUODENOSCOPY [EGD] W/CLOSED BIOPSY (02/16/15) OTHER GROUP THERAPY (03/12/13) PHYSICAL THERAPY NEC (07/04/15) TETANUS TOXOID ADMINIST (01/19/14) Family History: States: No Known Family Hx - Social History Hx Tobacco Use: No Hx Alcohol Use: Yes Hx Substance Use: No - Immunization History Hx Tetanus Toxoid Vaccination: No Hx Influenza Vaccination: No Hx Pneumococcal Vaccination: No Review Of Systems Constitutional: Negative for: Fever, Chills Cardiovascular: Negative for: Chest Pain Respiratory: Negative for: Shortness of Breath Gastrointestinal: Negative for: Nausea, Vomiting, Abdominal Pain, Diarrhea Skin: Negative for: Rash Neurological: Negative for: Weakness, Numbness Psych: Negative for: Suicidal ideation Physical Exam - Physical Exam Appears: Non-toxic, No Acute Distress Skin: Warm, Dry Head: Normacephalic Eye(s): bilateral: Normal Inspection Oral Mucosa: Moist Neck: Trachea Midline, Supple Chest: Symmetrical, No Tenderness Cardiovascular: Rhythm Regular Respiratory: No Decreased Breath Sounds, No Rales, No Rhonchi, No Wheezing Gastrointestinal/Abdominal: Soft, No Tenderness, No Distention Extremity: Normal ROM, No Deformity Extremity: Bilateral: Normal Color And Temperature, Normal ROM Neurological/Psych: Oriented x3 (Alert and awake) Disposition Counseled Patient/Family Regarding: Studies Performed, Diagnosis, Need For Followup - Disposition Referrals: at [facility] [Outside] Disposition: HOME/ ROUTINE Disposition Time: 21:51 Condition: FAIR Instructions: Alcohol Abuse and Alcoholism (DC) Forms: [employer] (Nepali) - Clinical Impression Clinical Impression: Alcohol intoxication, Alcoholism /alcohol abuse - Scribe Statement The provider has reviewed the documentation as recorded by the Scribjosé miguel Rosales All medical record entries made by the Scribe were at my direction and personally dictated by me. I have reviewed the chart and agree that the record accurately reflects my personal performance of the history, physical exam, medical decision making, and the department course for this patient. I have also personally directed, reviewed, and agree with the discharge instructions and disposition.
[2018-01-31 22:35] VITALS: RESP 16; TEMP 98.1
[2018-02-01 03:55] VITALS: BP 169/98; PULSE 93; O2SAT 97
== END 2018-02-01 03:55 | disposition home or self-care (01) ==
LOC: C.ER 21:15
DX: F10.229 Alcohol dependence with intoxication, unspecified (principal); Y90.9 Presence of alcohol in blood, level not specified

== ENCOUNTER 2018-02-01 21:25 | Emergency (ER) | payer SELFPAY ==
[2018-02-01 21:25] VITALS: BMI 29.7
[2018-02-01 21:34] VITALS: RESP 20; TEMP 97.9
--- NOTE | 2018-02-01 23:20 | C.PDOC ---
History Of Present Illness 57 year old male presents to the ED intoxicated looking for a place to stay. Patient is well known to the ED with multiple prior visits with the same presentation. Patient denies SI/HI, hallucination, CP, SOB, weakness, numbness. Time Seen by Provider: 02/01/18 22:36 Chief Complaint (Nursing): Substance Abuse History Per: Patient History/Exam Limitations: intoxication Onset/Duration Of Symptoms: Hrs Current Symptoms Are (Timing): Still Present Suicide/Self Injury Attempted (Context): None Modifying Factor(s): Alcohol Associated Symptoms: denies: Depression, Suicidal Thoughts, Suicidal Plan Recent travel outside of the [place]: No Additional History Per: Patient Past Medical History Reviewed: Historical Data, Nursing Documentation, Vital Signs Vital Signs: Last Vital Signs Temp 97.9 F 02/01/18 21:33 Pulse 91 H 02/01/18 21:33 Resp 20 02/01/18 21:33 BP 110/70 02/01/18 21:33 Pulse Ox 98 02/01/18 23:20 - Medical History PMH: Anxiety, Arthritis, Bronchitis, CAD, Depression, Diabetes (Pt. 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 not disclose to va underwriter, not aware), Fractures (RIGHT ARM), Gastritis, Gall Bladder Disease (s/p cholecystectomy), HTN, Post Traumatic Stress Disorder, Rheumatoid Arthritis, Seizures, Chronic Pain Denies: Chronic Kidney Disease Surgical History: Cholecystectomy - [facility] Procedures ALCOHOL DETOXIFICATION (07/04/15) APPLICATION OF SPLINT (03/20/13) CLOSURE SKIN & SUBCUTANEOUS NEC (08/14/13) DETOXIFICATION SERVICES FOR SUBSTANCE ABUSE TREATMENT (03/22/16) ESOPHAGOGASTRODUODENOSCOPY [EGD] W/CLOSED BIOPSY (02/16/15) OTHER GROUP THERAPY (03/12/13) PHYSICAL THERAPY NEC (07/04/15) TETANUS TOXOID ADMINIST (01/19/14) Family History: States: Unknown Family Hx - Social History Hx Tobacco Use: No Hx Alcohol Use: Yes Hx Substance Use: No - Immunization History Hx Tetanus Toxoid Vaccination: No Hx Influenza Vaccination: No Hx Pneumococcal Vaccination: No Review Of Systems Constitutional: Negative for: Fever, Chills Cardiovascular: Negative for: Chest Pain Respiratory: Negative for: Shortness of Breath Gastrointestinal: Negative for: Abdominal Pain Skin: Negative for: Rash Psych: Negative for: Depression, Suicidal ideation Physical Exam - Physical Exam Appears: Non-toxic, No Acute Distress, Unkempt Skin: Warm, Dry Head: Normacephalic Eye(s): bilateral: Normal Inspection Nose: No Discharge Oral Mucosa: Moist Neck: Normal ROM, Supple Chest: Symmetrical Cardiovascular: Rhythm Regular, No Murmur Respiratory: No Rales, No Rhonchi, No Wheezing Gastrointestinal/Abdominal: Soft, No Tenderness, No Guarding, No Rebound Extremity: Normal ROM, No Tenderness, No Swelling Pulses: Left Dorsalis Pedis: Normal, Right Dorsalis Pedis: Normal Neurological/Psych: Oriented x3 ED Course And Treatment O2 Sat by Pulse Oximetry: 98 (ON RA) Pulse Ox Interpretation: Normal Reevaluation Time: 04:32 Reassessment Condition: Improved Disposition Counseled Patient/Family Regarding: Studies Performed, Diagnosis, Need For Followup - Disposition Referrals: [facility] [Outside] Disposition: HOME/ ROUTINE Disposition Time: 22:00 Condition: FAIR Instructions: Alcohol Abuse and Alcoholism (DC) Forms: [employer] (Japanese) - Clinical Impression Clinical Impression: Alcoholic intoxication - Scribe Statement The provider has reviewed the documentation as recorded by the Scribe Woo Brown All medical record entries made by the Scribe were at my direction and personally dictated by me. I have reviewed the chart and agree that the record accurately reflects my personal performance of the history, physical exam, medical decision making, and the department course for this patient. I have also personally directed, reviewed, and agree with the discharge instructions and disposition.
[2018-02-02 05:04] VITALS: BP 122/86; PULSE 88; O2SAT 97
== END 2018-02-02 05:03 | disposition home or self-care (01) ==
LOC: C.ER 21:25
DX: F10.129 Alcohol abuse with intoxication, unspecified (principal)

== ENCOUNTER 2018-02-02 19:55 | Emergency (ER) | payer SELFPAY ==
[2018-02-02 19:55] VITALS: BMI 29.7
[2018-02-02 20:24] VITALS: O2SAT 96
--- NOTE | 2018-02-03 00:29 | C.PDOC ---
History Of Present Illness 57 year old male presents to the ED intoxicated requesting a place to stay. Patient is well known to the ED with multiple prior visits with the same presentation. Patient denies SI/HI, hallucinations, CP, SOB, abdominal pain. Chief Complaint (Nursing): Substance Abuse History Per: Patient History/Exam Limitations: intoxication Onset/Duration Of Symptoms: Hrs Current Symptoms Are (Timing): Still Present Suicide/Self Injury Attempted (Context): None Modifying Factor(s): Alcohol Associated Symptoms: denies: Depression, Suicidal Thoughts, Suicidal Plan Involuntary Hold By: None Recent travel outside of the [place]: No Additional History Per: Patient Past Medical History Reviewed: Historical Data, Nursing Documentation, Vital Signs Vital Signs: Last Vital Signs Temp 98.1 F 02/03/18 02:09 Pulse 101 H 02/03/18 02:09 Resp 22 02/03/18 02:09 BP 117/78 02/03/18 02:09 Pulse Ox 96 02/03/18 02:09 - Medical History PMH: Anxiety, Arthritis, Bronchitis, CAD, Depression, Diabetes (Pt. did not disclose to senior writer, not aware), Fractures (RIGHT ARM), Gastritis, Gall Bladder Disease (s/p cholecystectomy), HTN, Post Traumatic Stress Disorder, Rheumatoid Arthritis, Seizures, Chronic Pain Denies: Chronic Kidney Disease Surgical History: Cholecystectomy - [facility] Procedures ALCOHOL DETOXIFICATION (07/04/15) APPLICATION OF SPLINT (03/20/13) CLOSURE SKIN & SUBCUTANEOUS NEC (08/14/13) DETOXIFICATION SERVICES FOR SUBSTANCE ABUSE TREATMENT (03/22/16) ESOPHAGOGASTRODUODENOSCOPY [EGD] W/CLOSED BIOPSY (02/16/15) OTHER GROUP THERAPY (03/12/13) PHYSICAL THERAPY NEC (07/04/15) TETANUS TOXOID ADMINIST (01/19/14) Family History: States: Unknown Family Hx - Social History Hx Tobacco Use: No Hx Alcohol Use: Yes Hx Substance Use: No - Immunization History Hx Tetanus Toxoid Vaccination: No Hx Influenza Vaccination: No Hx Pneumococcal Vaccination: No Review Of Systems Constitutional: Negative for: Fever, Chills Cardiovascular: Negative for: Chest Pain Respiratory: Negative for: Shortness of Breath Gastrointestinal: Negative for: Abdominal Pain Skin: Negative for: Rash Psych: Negative for: Depression, Suicidal ideation Physical Exam - Physical Exam Appears: Non-toxic, No Acute Distress, Unkempt Skin: Normal Color, Warm, Dry Head: Atraumatic, Normacephalic Eye(s): bilateral: Normal Inspection Nose: No Discharge Oral Mucosa: Moist Neck: Normal ROM, Supple Chest: Symmetrical Cardiovascular: Rhythm Regular, No Murmur Respiratory: Normal Breath Sounds, No Rales, No Rhonchi, No Wheezing Gastrointestinal/Abdominal: Soft, No Tenderness, No Guarding, No Rebound Extremity: Normal ROM, No Tenderness, No Swelling Neurological/Psych: Oriented x3 ED Course And Treatment O2 Sat by Pulse Oximetry: 96 (ON RA) Pulse Ox Interpretation: Normal Medical Decision Making Medical Decision Making: Impression: alcohol intoxication Plan: * Frequent neurological checks Disposition - Disposition Disposition: HOME/ ROUTINE Disposition Time: 05:18 Condition: FAIR Forms: [facility] (Ecuadorean) - Clinical Impression Clinical Impression: Alcohol intoxication, Homeless single person - Scribe Statement The provider has reviewed the documentation as recorded by the Scribe Woo Brown All medical record entries made by the Scribe were at my direction and personally dictated by me. I have reviewed the chart and agree that the record accurately reflects my personal performance of the history, physical exam, medical decision making, and the department course for this patient. I have also personally directed, reviewed, and agree with the discharge instructions and disposition.
[2018-02-03 02:10] VITALS: BP 117/78; PULSE 101; RESP 22; TEMP 98.1
== END 2018-02-03 05:19 | disposition home or self-care (01) ==
LOC: C.ER 19:55
DX: F10.129 Alcohol abuse with intoxication, unspecified (principal); Z59.0 Homelessness

== ENCOUNTER 2018-02-03 22:37 | Emergency (ER) | payer SELFPAY ==
[2018-02-03 22:37] VITALS: BMI 29.7
[2018-02-04 03:00] VITALS: TEMP 97.6
--- NOTE | 2018-02-04 05:13 | C.PDOC ---
Time Seen by Provider: 02/04/18 02:13 Chief Complaint (Nursing): Substance Abuse Past Medical History Vital Signs: Last Vital Signs Temp 97.6 F 02/04/18 03:00 Pulse 89 02/04/18 03:00 Resp 18 02/04/18 03:00 BP 102/60 02/04/18 03:00 Pulse Ox 95 02/04/18 03:00 - Medical History PMH: Anxiety, Arthritis, Bronchitis, CAD, Depression, Diabetes (Pt. did not disclose to speech writer, not aware), Fractures (RIGHT ARM), Gastritis, Gall Bladder Disease (s/p cholecystectomy), HTN, Post Traumatic Stress Disorder, Rheumatoid Arthritis, Seizures, Chronic Pain Denies: Chronic Kidney Disease Surgical History: Cholecystectomy - [facility] Procedures ALCOHOL DETOXIFICATION (07/04/15) APPLICATION OF SPLINT (03/20/13) CLOSURE SKIN & SUBCUTANEOUS NEC (08/14/13) DETOXIFICATION SERVICES FOR SUBSTANCE ABUSE TREATMENT (03/22/16) ESOPHAGOGASTRODUODENOSCOPY [EGD] W/CLOSED BIOPSY (02/16/15) OTHER GROUP THERAPY (03/12/13) PHYSICAL THERAPY NEC (07/04/15) TETANUS TOXOID ADMINIST (01/19/14) Family History: States: Unknown Family Hx - Social History Hx Tobacco Use: No Hx Alcohol Use: Yes Hx Substance Use: No - Immunization History Hx Tetanus Toxoid Vaccination: No Hx Influenza Vaccination: No Hx Pneumococcal Vaccination: No ED Course And Treatment O2 Sat by Pulse Oximetry: 95 Disposition - Disposition Disposition: HOME/ ROUTINE Disposition Time: 05:11 Condition: STABLE Instructions: Alcohol Abuse and Alcoholism (DC)
--- NOTE | 2018-02-04 05:14 | C.PDOC ---
History Of Present Illness 57 y/o homeless male presents to the ED requesting a place to stay the night. Patient is well known to the ED for multiple prior visits with alcohol intoxication. Admits to drinking alcohol today. No physical complaints offered. 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, not aware), Fractures (RIGHT ARM), Gastritis, Gall Bladder Disease (s/p cholecystectomy), HTN, Post Traumatic Stress Disorder, Rheumatoid Arthritis, Seizures, Chronic Pain Denies: Chronic Kidney Disease Surgical History: Cholecystectomy Family History: States: Unknown Family Hx - Social History Hx Tobacco Use: No Hx Alcohol Use: Yes Hx Substance Use: No - Immunization History Hx Tetanus Toxoid Vaccination: No Hx Influenza Vaccination: No Hx Pneumococcal Vaccination: No Vital Signs: Last Vital Signs Temp 97.6 F 02/04/18 05:18 Pulse 87 02/04/18 05:18 Resp 16 02/04/18 05:18 BP 110/67 02/04/18 05:18 Pulse Ox 95 02/04/18 06:34 - [facility] Procedures ALCOHOL DETOXIFICATION (07/04/15) APPLICATION OF SPLINT (03/20/13) CLOSURE SKIN & SUBCUTANEOUS NEC (08/14/13) DETOXIFICATION SERVICES FOR SUBSTANCE ABUSE TREATMENT (03/22/16) ESOPHAGOGASTRODUODENOSCOPY [EGD] W/CLOSED BIOPSY (02/16/15) OTHER GROUP THERAPY (03/12/13) PHYSICAL THERAPY NEC (07/04/15) TETANUS TOXOID ADMINIST (01/19/14) Review Of Systems Constitutional: Negative for: Fever Respiratory: Negative for: Shortness of Breath Psych: Negative for: Suicidal ideation Physical Exam - Physical Exam Appears: No Acute Distress, Unkempt, Other (Foul-smelling, alcohol on breath) Skin: Warm, Dry Head: Atraumatic, Normacephalic Eye(s): bilateral: Normal Inspection, EOMI Nose: Normal Oral Mucosa: Moist Neck: Normal ROM Chest: Symmetrical Respiratory: No Accessory Muscle Use Gastrointestinal/Abdominal: Normal Exam Back: Normal Inspection Extremity: Bilateral: Atraumatic, Normal ROM Neurological/Psych: Oriented x3, Other (slurred speech) ED Course And Treatment O2 Sat by Pulse Oximetry: 95 (RA) Pulse Ox Interpretation: Normal Progress Note: Patient presents with no acute complaints. On reevaluation patient is resting comfortably, breathing is easy and non-labored. Will discharge when clinically sober. Patient ambulating with steady gait, clear speech. Stable for d/c home. Disposition Counseled Patient/Family Regarding: Diagnosis, Need For Followup - Disposition Disposition Time: 05:15 - POA Present On Arrival: None - Disposition Disposition: HOME/ ROUTINE Condition: STABLE Instructions: Alcohol Abuse and Alcoholism (DC) Forms: [employer] (Brazilian) - Clinical Impression Clinical Impression: Alcohol intoxication - PA / BANK CLERK / 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 - Scribe Statement The provider has reviewed the documentation as recorded by the Scribe (Leah Gunter) - Scribe Statement All medical record entries made by the Scribe were at my direction and personally dictated by me. I have reviewed the chart and agree that the record accurately reflects my personal performance of the history, physical exam, medical decision making, and the department course for this patient. I have also personally directed, reviewed, and agree with the discharge instructions and disposition. (Darshana Dunham)
[2018-02-04 05:19] VITALS: BP 110/67; PULSE 87; RESP 16
[2018-02-04 05:26] VITALS: O2SAT 95
== END 2018-02-04 05:34 | disposition home or self-care (01) ==
LOC: C.ER 22:37
DX: F10.129 Alcohol abuse with intoxication, unspecified (principal); Y90.9 Presence of alcohol in blood, level not specified

== ENCOUNTER 2018-02-04 21:11 | Emergency (ER) | payer SELFPAY ==
[2018-02-04 21:12] VITALS: BMI 29.7
[2018-02-04 21:28] VITALS: BP 137/91; PULSE 107; RESP 18; TEMP 98.1; O2SAT 97
--- NOTE | 2018-02-04 21:36 | C.PDOC ---
History Of Present Illness 57 y/o male presents to ED requesting for place to stay and in an acute ETOH intoxication. Patient has been seen at ED multiple times for same. Patient is in no acute distress and has no physical complaints at this time. Time Seen by Provider: 02/04/18 21:34 Chief Complaint (Nursing): Substance Abuse History Per: Patient History/Exam Limitations: no limitations Onset/Duration Of Symptoms: Days Current Symptoms Are (Timing): Still Present Suicide/Self Injury Attempted (Context): None Modifying Factor(s): Alcohol Past Medical History Reviewed: Historical Data, Nursing Documentation, Vital Signs Vital Signs: Last Vital Signs Temp 98.1 F 02/04/18 21:15 Pulse 107 H 02/04/18 21:15 Resp 18 02/04/18 21:15 BP 137/91 H 02/04/18 21:15 Pulse Ox 97 02/04/18 21:35 - Medical History PMH: Anxiety, Arthritis, Bronchitis, CAD, Depression, Diabetes (Pt. 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), Fractures (RIGHT ARM), Gastritis, Gall Bladder Disease (s/p cholecystectomy), HTN, Post Traumatic Stress Disorder, Rheumatoid Arthritis, Seizures, Chronic Pain Surgical History: Cholecystectomy - [facility] Procedures ALCOHOL DETOXIFICATION (07/04/15) APPLICATION OF SPLINT (03/20/13) CLOSURE SKIN & SUBCUTANEOUS NEC (08/14/13) DETOXIFICATION SERVICES FOR SUBSTANCE ABUSE TREATMENT (03/22/16) ESOPHAGOGASTRODUODENOSCOPY [EGD] W/CLOSED BIOPSY (02/16/15) OTHER GROUP THERAPY (03/12/13) PHYSICAL THERAPY NEC (07/04/15) TETANUS TOXOID ADMINIST (01/19/14) Family History: States: No Known Family Hx - Social History Hx Tobacco Use: No Hx Alcohol Use: Yes Hx Substance Use: No - Immunization History Hx Tetanus Toxoid Vaccination: No Hx Influenza Vaccination: No Hx Pneumococcal Vaccination: No Review Of Systems Constitutional: Negative for: Fever, Chills Cardiovascular: Negative for: Chest Pain Respiratory: Negative for: Shortness of Breath Gastrointestinal: Negative for: Nausea, Vomiting Skin: Negative for: Rash Psych: Positive for: Other (ETOH intoxication) Physical Exam - Physical Exam Appears: Non-toxic, No Acute Distress, Other (ETOH on breath) Skin: Warm, Dry, No Rash Head: Atraumatic, Normacephalic Eye(s): bilateral: Normal Inspection Oral Mucosa: Moist Neck: Normal ROM, Supple Cardiovascular: Rhythm Regular Respiratory: Normal Breath Sounds, No Rales, No Rhonchi, No Wheezing Gastrointestinal/Abdominal: Soft, No Tenderness, No Guarding, No Rebound Extremity: Normal ROM, Capillary Refill (<2 seconds) Neurological/Psych: Oriented x3, Normal Speech, Normal Cognition Gait: Steady ED Course And Treatment O2 Sat by Pulse Oximetry: 97 (RA) Pulse Ox Interpretation: Normal Medical Decision Making Medical Decision Making: typical alcohol abuse, malingering no acute issues Walked in to ED, stable gait. known to drink alchohol while in the ED safe for d/c to street. Disposition Doctor Will See Patient In The: Office Counseled Patient/Family Regarding: Studies Performed, Diagnosis - Disposition Referrals: Alcoholics Anonymous [Outside] [facility] [Outside] [facility] [Outside] [facility] [Outside] [facility] [Outside] Disposition: HOME/ ROUTINE Disposition Time: 21:35 Condition: GOOD Additional Instructions: seek nightly detention placement seek AA seek outpatient psych assistance. Instructions: Alcohol Abuse and Alcoholism (DC) Forms: [employer] (Faroese) - Clinical Impression Clinical Impression: Alcoholism /alcohol abuse - Scribe Statement The provider has reviewed the documentation as recorded by the Scribjosé miguel Contreras All medical record entries made by the Scribe were at my direction and personally dictated by me. I have reviewed the chart and agree that the record accurately reflects my personal performance of the history, physical exam, medical decision making, and the department course for this patient. I have also personally directed, reviewed, and agree with the discharge instructions and disposition.
== END 2018-02-04 22:00 | disposition home or self-care (01) ==
LOC: C.ER 21:11
DX: F10.229 Alcohol dependence with intoxication, unspecified (principal)

== ENCOUNTER 2018-02-05 23:11 | Emergency (ER) | payer SELFPAY ==
[2018-02-05 23:11] VITALS: BMI 29.7
--- NOTE | 2018-02-05 23:42 | C.PDOC ---
History Of Present Illness Patient is a 57 y/o male who presents to the ED with a complaint of acute EtOH requesting a place to stay. Patient has extensive history for similar ED presentations. Admits to drinking alcohol today; denies any physical complaints at this time. Time Seen by Provider: 02/05/18 23:39 Chief Complaint (Nursing): Substance Abuse History Per: Patient History/Exam Limitations: no limitations Onset/Duration Of Symptoms: Hrs Current Symptoms Are (Timing): Still Present Suicide/Self Injury Attempted (Context): None Modifying Factor(s): Alcohol Recent travel outside of the [place]: No Past Medical History Reviewed: Historical Data, Nursing Documentation, Vital Signs Vital Signs: Last Vital Signs Temp 97.9 F 02/05/18 23:34 Pulse 74 02/06/18 03:00 Resp 18 02/06/18 03:00 BP 115/74 02/05/18 23:34 Pulse Ox 94 L 02/06/18 03:00 - Medical History PMH: Anxiety, Arthritis, Bronchitis, CAD, Depression, Diabetes (Pt. did not disclose to board writer, not aware), Fractures (RIGHT ARM), Gastritis, Gall Bladder Disease (s/p cholecystectomy), HTN, Post Traumatic Stress Disorder, Rheumatoid Arthritis, Seizures, Chronic Pain Denies: Chronic Kidney Disease Surgical History: Cholecystectomy - [facility] Procedures ALCOHOL DETOXIFICATION (07/04/15) APPLICATION OF SPLINT (03/20/13) CLOSURE SKIN & SUBCUTANEOUS NEC (08/14/13) DETOXIFICATION SERVICES FOR SUBSTANCE ABUSE TREATMENT (03/22/16) ESOPHAGOGASTRODUODENOSCOPY [EGD] W/CLOSED BIOPSY (02/16/15) OTHER GROUP THERAPY (03/12/13) PHYSICAL THERAPY NEC (07/04/15) TETANUS TOXOID ADMINIST (01/19/14) Family History: States: No Known Family Hx - Social History Hx Tobacco Use: No Hx Alcohol Use: Yes Hx Substance Use: No - Immunization History Hx Tetanus Toxoid Vaccination: No Hx Influenza Vaccination: No Hx Pneumococcal Vaccination: No Review Of Systems Constitutional: Negative for: Fever, Chills Neurological: Positive for: Other (EtOH intoxication) Physical Exam - Physical Exam Appears: Non-toxic, No Acute Distress Skin: Normal Color, Warm, Dry Head: Atraumatic, Normacephalic Eye(s): bilateral: Normal Inspection Oral Mucosa: Moist Cardiovascular: Rhythm Regular, No Murmur Respiratory: Normal Breath Sounds, No Rales, No Rhonchi, No Wheezing Gastrointestinal/Abdominal: Soft, No Tenderness Extremity: Normal ROM (x4) Neurological/Psych: Oriented x3 Gait: Steady ED Course And Treatment O2 Sat by Pulse Oximetry: 99 Pulse Ox Interpretation: Normal Progress Note: Patient to be discharged upon sobriety. Disposition Counseled Patient/Family Regarding: Studies Performed, Diagnosis, Need For Followup - Disposition Referrals: [facility] [Outside] Disposition: HOME/ ROUTINE Disposition Time: 23:40 Condition: FAIR Instructions: Alcohol Abuse and Alcoholism (DC) Forms: [employer] (Lebanese) - Clinical Impression Clinical Impression: Alcohol intoxication, Alcohol abuse with intoxication, Chronic alcoholism - Scribe Statement The provider has reviewed the documentation as recorded by the Scribe Yamilet Madrigal All medical record entries made by the Scribe were at my direction and personally dictated by me. I have reviewed the chart and agree that the record accurately reflects my personal performance of the history, physical exam, medical decision making, and the department course for this patient. I have also personally directed, reviewed, and agree with the discharge instructions and disposition.
[2018-02-06 05:22] VITALS: BP 137/83; PULSE 96; RESP 16; TEMP 98.7; O2SAT 97
== END 2018-02-06 05:21 | disposition home or self-care (01) ==
LOC: C.ER 23:11
DX: F10.229 Alcohol dependence with intoxication, unspecified (principal); Y90.9 Presence of alcohol in blood, level not specified

== ENCOUNTER 2018-02-07 00:44 | Emergency (ER) | payer SELFPAY ==
[2018-02-07 00:44] VITALS: BMI 29.7
--- NOTE | 2018-02-07 00:53 | C.PDOC ---
History Of Present Illness Patient is a 57 y/o male who presents to the ED with a complaint of acute EtOH requesting a place to stay. Patient has extensive history for similar ED presentations. Admits to drinking alcohol today; denies any physical complaints at this time. Time Seen by Provider: 02/07/18 00:51 History Per: Patient History/Exam Limitations: no limitations Onset/Duration Of Symptoms: Hrs Current Symptoms Are (Timing): Still Present Modifying Factor(s): Alcohol Past Medical History Reviewed: Historical Data, Nursing Documentation, Vital Signs Vital Signs: Last Vital Signs Temp 98.3 F 02/07/18 00:55 Pulse 92 H 02/07/18 00:55 Resp 18 02/07/18 00:55 BP 127/83 02/07/18 00:55 Pulse Ox 99 02/07/18 00:55 - Medical History PMH: Anxiety, Arthritis, Bronchitis, CAD, Depression, Diabetes (Pt. did not disclose to program writer, not aware), Fractures (RIGHT ARM), Gastritis, Gall Bladder Disease (s/p cholecystectomy), HTN, Post Traumatic Stress Disorder, Rheumatoid Arthritis, Seizures, Chronic Pain Denies: Chronic Kidney Disease Surgical History: Cholecystectomy - [facility] Procedures ALCOHOL DETOXIFICATION (07/04/15) APPLICATION OF SPLINT (03/20/13) CLOSURE SKIN & SUBCUTANEOUS NEC (08/14/13) DETOXIFICATION SERVICES FOR SUBSTANCE ABUSE TREATMENT (03/22/16) ESOPHAGOGASTRODUODENOSCOPY [EGD] W/CLOSED BIOPSY (02/16/15) OTHER GROUP THERAPY (03/12/13) PHYSICAL THERAPY NEC (07/04/15) TETANUS TOXOID ADMINIST (01/19/14) Family History: States: Unknown Family Hx - Social History Hx Tobacco Use: No Hx Alcohol Use: Yes Hx Substance Use: No - Immunization History Hx Tetanus Toxoid Vaccination: No Hx Influenza Vaccination: No Hx Pneumococcal Vaccination: No Review Of Systems Constitutional: Negative for: Fever, Chills Neurological: Positive for: Other (EtOH Intoxication ) Physical Exam - Physical Exam Appears: Non-toxic, No Acute Distress Skin: Normal Color, Warm, Dry Head: Atraumatic, Normacephalic Eye(s): bilateral: Normal Inspection Oral Mucosa: Moist Cardiovascular: Rhythm Regular, No Murmur Respiratory: Normal Breath Sounds, No Decreased Breath Sounds, No Rales, No Rhonchi, No Wheezing Gastrointestinal/Abdominal: Soft, No Tenderness Extremity: Normal ROM (x4) Neurological/Psych: Oriented x3 Gait: Steady ED Course And Treatment O2 Sat by Pulse Oximetry: 99 Pulse Ox Interpretation: Normal Reevaluation Time: 05:05 Reassessment Condition: Improved Disposition Counseled Patient/Family Regarding: Studies Performed, Diagnosis, Need For Followup - Disposition Referrals: [facility] [Outside] Disposition: HOME/ ROUTINE Disposition Time: 00:52 Condition: FAIR Instructions: Alcohol Abuse and Alcoholism (DC) - Clinical Impression Clinical Impression: Alcohol abuse with intoxication, Alcohol abuse, daily use - PA / LOG LOADER / 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 - Scribe Statement The provider has reviewed the documentation as recorded by the Rominaibjosé miguel Kang
[2018-02-07 01:00] VITALS: RESP 18; O2SAT 99
[2018-02-07 05:58] VITALS: BP 132/85; PULSE 82; TEMP 98.2
== END 2018-02-07 05:30 | disposition home or self-care (01) ==
LOC: C.ER 00:44 → SUPCPDRO 00:44 → C.ER 05:30
DX: F10.129 Alcohol abuse with intoxication, unspecified (principal); Y90.9 Presence of alcohol in blood, level not specified

== ENCOUNTER 2018-02-08 00:05 | Emergency (ER) | payer SELFPAY ==
[2018-02-08 00:06] VITALS: BMI 29.7
--- NOTE | 2018-02-08 00:08 | C.PDOC ---
History Of Present Illness Patient walked in ER department asking for a place to stay for the night. Patient admits to alcohol today. Denies any physical complaints. Time Seen by Provider: 02/08/18 00:07 History Per: Patient History/Exam Limitations: no limitations Onset/Duration Of Symptoms: Hrs Current Symptoms Are (Timing): Still Present Suicide/Self Injury Attempted (Context): None Modifying Factor(s): Alcohol Associated Symptoms: denies: Suicidal Thoughts, Suicidal Plan Involuntary Hold By: None Recent travel outside of the [place]: No Past Medical History Reviewed: Historical Data, Nursing Documentation, Vital Signs Vital Signs: Last Vital Signs Temp 98.3 F 02/08/18 00:16 Pulse 99 H 02/08/18 00:16 Resp 20 02/08/18 00:16 BP 143/82 02/08/18 00:16 Pulse Ox 96 02/08/18 00:16 - Medical History PMH: Anxiety, Arthritis, Bronchitis, CAD, Depression, Diabetes (Pt. did not disclose to automatic typewriter inspector, not aware), Fractures (RIGHT ARM), Gastritis, Gall Bladder Disease (s/p cholecystectomy), HTN, Post Traumatic Stress Disorder, Rheumatoid Arthritis, Seizures, Chronic Pain Surgical History: Cholecystectomy - [facility] Procedures ALCOHOL DETOXIFICATION (07/04/15) APPLICATION OF SPLINT (03/20/13) CLOSURE SKIN & SUBCUTANEOUS NEC (08/14/13) DETOXIFICATION SERVICES FOR SUBSTANCE ABUSE TREATMENT (03/22/16) ESOPHAGOGASTRODUODENOSCOPY [EGD] W/CLOSED BIOPSY (02/16/15) OTHER GROUP THERAPY (03/12/13) PHYSICAL THERAPY NEC (07/04/15) TETANUS TOXOID ADMINIST (01/19/14) Family History: States: Unknown Family Hx - Social History Hx Tobacco Use: No Hx Alcohol Use: Yes Hx Substance Use: No - Immunization History Hx Tetanus Toxoid Vaccination: No Hx Influenza Vaccination: No Hx Pneumococcal Vaccination: No Review Of Systems Constitutional: Negative for: Fever, Chills Cardiovascular: Negative for: Chest Pain Gastrointestinal: Negative for: Nausea, Vomiting, Abdominal Pain, Diarrhea Skin: Negative for: Rash Neurological: Negative for: Weakness, Numbness Psych: Negative for: Suicidal ideation Physical Exam - Physical Exam Appears: Non-toxic, No Acute Distress, Other (ETOH on breath) Skin: Warm, Dry Head: Normacephalic Eye(s): bilateral: Normal Inspection Oral Mucosa: Moist Neck: Trachea Midline, Supple Chest: Symmetrical, No Tenderness Cardiovascular: Rhythm Regular Respiratory: No Decreased Breath Sounds, No Rales, No Rhonchi, No Wheezing Gastrointestinal/Abdominal: Soft, No Tenderness, No Distention Extremity: Normal ROM, No Deformity Extremity: Bilateral: Normal Color And Temperature, Normal ROM Neurological/Psych: Oriented x3 (awake and alert), Normal Speech, Normal Cognition Gait: Steady ED Course And Treatment O2 Sat by Pulse Oximetry: 96 Pulse Ox Interpretation: Normal Reevaluation Time: 05:28 Reassessment Condition: Improved Disposition Counseled Patient/Family Regarding: Studies Performed, Diagnosis, Need For Followup - Disposition Referrals: [facility] [Outside] Disposition: HOME/ ROUTINE Disposition Time: 00:08 Condition: FAIR Instructions: Alcohol Abuse and Alcoholism (DC) - Clinical Impression Clinical Impression: Alcohol abuse with intoxication, Chronic alcoholism - Scribe Statement The provider has reviewed the documentation as recorded by the Scribjosé miguel Rosales All medical record entries made by the Scribe were at my direction and personally dictated by me. I have reviewed the chart and agree that the record accurately reflects my personal performance of the history, physical exam, medical decision making, and the department course for this patient. I have also personally directed, reviewed, and agree with the discharge instructions and disposition.
[2018-02-08 06:42] VITALS: TEMP 98
[2018-02-08 06:44] VITALS: O2SAT 97
[2018-02-08 06:46] VITALS: BP 130/82; PULSE 82; RESP 18
== END 2018-02-08 05:45 | disposition home or self-care (01) ==
LOC: C.ER 00:05
DX: F10.229 Alcohol dependence with intoxication, unspecified (principal); E11.9 Type 2 diabetes mellitus without complications; I25.10 Atherosclerotic heart disease of native coronary artery without angina pectoris

== ENCOUNTER 2018-02-08 23:52 | Emergency (ER) | payer SELFPAY ==
[2018-02-08 23:52] VITALS: BMI 29.7
--- NOTE | 2018-02-08 23:57 | C.PDOC ---
History Of Present Illness Patient is a 57 y/o male who presents to the ED with a complaint of acute EtOH. Patient has extensive history for similar ED presentations. Admits to drinking alcohol today; denies any physical complaints at this time. Time Seen by Provider: 02/08/18 23:54 Chief Complaint (Nursing): Substance Abuse History Per: Patient History/Exam Limitations: no limitations Onset/Duration Of Symptoms: Hrs Current Symptoms Are (Timing): Still Present Suicide/Self Injury Attempted (Context): None Modifying Factor(s): Alcohol Past Medical History Reviewed: Historical Data, Nursing Documentation, Vital Signs Vital Signs: Last Vital Signs Temp 97.4 F L 02/09/18 00:08 Pulse 89 02/09/18 00:08 Resp 19 02/09/18 00:08 BP Pulse Ox 97 02/09/18 00:08 - Medical History PMH: Anxiety, Arthritis, Bronchitis, CAD, Depression, Diabetes (Pt. did not disclose to advertising writer, not aware), Fractures (RIGHT ARM), Gastritis, Gall Bladder Disease (s/p cholecystectomy), HTN, Post Traumatic Stress Disorder, Rheumatoid Arthritis, Seizures, Chronic Pain Denies: Chronic Kidney Disease Surgical History: Cholecystectomy - [facility] Procedures ALCOHOL DETOXIFICATION (07/04/15) APPLICATION OF SPLINT (03/20/13) CLOSURE SKIN & SUBCUTANEOUS NEC (08/14/13) DETOXIFICATION SERVICES FOR SUBSTANCE ABUSE TREATMENT (03/22/16) ESOPHAGOGASTRODUODENOSCOPY [EGD] W/CLOSED BIOPSY (02/16/15) OTHER GROUP THERAPY (03/12/13) PHYSICAL THERAPY NEC (07/04/15) TETANUS TOXOID ADMINIST (01/19/14) Family History: States: Unknown Family Hx - Social History Hx Tobacco Use: No Hx Alcohol Use: Yes Hx Substance Use: No - Immunization History Hx Tetanus Toxoid Vaccination: No Hx Influenza Vaccination: No Hx Pneumococcal Vaccination: No Review Of Systems Except As Marked, All Systems Reviewed And Found Negative. Psych: Positive for: Other (EtOH intoxication ) Physical Exam - Physical Exam Appears: Non-toxic, No Acute Distress Skin: Normal Color, Warm, Dry Head: Atraumatic, Normacephalic Eye(s): bilateral: Normal Inspection Oral Mucosa: Moist Cardiovascular: Rhythm Regular, No Murmur Respiratory: Normal Breath Sounds, No Rales, No Rhonchi, No Wheezing Gastrointestinal/Abdominal: Soft, No Tenderness Extremity: Normal ROM (x4) Gait: Steady Medical Decision Making Medical Decision Making: typical alcohol abuse no acute issues malingering. Disposition Doctor Will See Patient In The: Office Counseled Patient/Family Regarding: Studies Performed, Diagnosis - Disposition Referrals: Alcoholics Anonymous [Outside] [facility] [Outside] [facility] [Outside] [facility] [Outside] [facility] [employer] [facility] [Outside] Disposition: HOME/ ROUTINE Disposition Time: 23:56 Condition: GOOD Instructions: Effects of Alcohol on Your Health Forms: [employer] (Frisian) - Clinical Impression Clinical Impression: Alcohol abuse, daily use - Scribe Statement The provider has reviewed the documentation as recorded by the Jada Kang Provider Attestation: All medical record entries made by the Jada were at my direction and personally dictated by me. I have reviewed the chart and agree that the record accurately reflects my personal performance of the history, physical exam, medical decision making, and the department course for this patient. I have also personally directed, reviewed, and agree with the discharge instructions and disposition.
[2018-02-09 00:09] VITALS: PULSE 89; RESP 19; TEMP 97.4; O2SAT 97
== END 2018-02-09 00:11 | disposition home or self-care (01) ==
LOC: C.ER 23:52
DX: F10.10 Alcohol abuse, uncomplicated (principal); E11.9 Type 2 diabetes mellitus without complications; I25.10 Atherosclerotic heart disease of native coronary artery without angina pectoris

== ENCOUNTER 2018-02-09 21:21 | Emergency (ER) | payer SELFPAY ==
[2018-02-09 21:21] VITALS: BMI 29.7
--- NOTE | 2018-02-09 21:31 | C.PDOC ---
History Of Present Illness Patient is a 57 y/o male who presents to the ED with a complaint of alcohol. Patient has extensive history for similar ED presentations. Admits to drinking alcohol today; denies any physical complaints at this time. Time Seen by Provider: 02/09/18 21:29 History Per: Patient Modifying Factor(s): Alcohol Past Medical History Reviewed: Historical Data, Nursing Documentation, Vital Signs - Medical History PMH: Anxiety, Arthritis, Bronchitis, CAD, Depression, Diabetes (Pt. did not disclose to aligner typewriter, not aware), Fractures (RIGHT ARM), Gastritis, Gall Bladder Disease (s/p cholecystectomy), HTN, Post Traumatic Stress Disorder, Rheumatoid Arthritis, Seizures, Chronic Pain Denies: Chronic Kidney Disease Surgical History: Cholecystectomy - [facility] Procedures ALCOHOL DETOXIFICATION (07/04/15) APPLICATION OF SPLINT (03/20/13) CLOSURE SKIN & SUBCUTANEOUS NEC (08/14/13) DETOXIFICATION SERVICES FOR SUBSTANCE ABUSE TREATMENT (03/22/16) ESOPHAGOGASTRODUODENOSCOPY [EGD] W/CLOSED BIOPSY (02/16/15) OTHER GROUP THERAPY (03/12/13) PHYSICAL THERAPY NEC (07/04/15) TETANUS TOXOID ADMINIST (01/19/14) Family History: States: Unknown Family Hx - Social History Hx Tobacco Use: No Hx Alcohol Use: Yes Hx Substance Use: No - Immunization History Hx Tetanus Toxoid Vaccination: No Hx Influenza Vaccination: No Hx Pneumococcal Vaccination: No Review Of Systems Except As Marked, All Systems Reviewed And Found Negative. Constitutional: Negative for: Fever, Chills Psych: Positive for: Other (Alcohol intoxication) Physical Exam - Physical Exam Appears: No Acute Distress Skin: Warm Head: Normacephalic Eye(s): bilateral: Normal Inspection Neck: Supple Cardiovascular: Rhythm Regular Respiratory: Normal Breath Sounds Extremity: Normal ROM Neurological/Psych: Oriented x3 Gait: Steady Medical Decision Making Medical Decision Making: alcohol abuse walked into ED and waiting room w stable gait no acute issues malingering. Disposition Doctor Will See Patient In The: Office Counseled Patient/Family Regarding: Studies Performed, Diagnosis - Disposition Referrals: Alcoholics Anonymous [Outside] [facility] [Outside] [facility] [Outside] [facility] [Outside] Disposition: HOME/ ROUTINE Disposition Time: 21:30 Condition: GOOD Instructions: Alcohol Abuse and Alcoholism (DC) - Clinical Impression Clinical Impression: Malingering, Alcohol abuse, daily use - Scribe Statement The provider has reviewed the documentation as recorded by the Scribe (Val Estrada) Provider Attestation: All medical record entries made by the Scribe were at my direction and personally dictated by me. I have reviewed the chart and agree that the record accurately reflects my personal performance of the history, physical exam, medical decision making, and the department course for this patient. I have also personally directed, reviewed, and agree with the discharge instructions and disposition.
[2018-02-09 22:12] VITALS: BP 143/89; PULSE 86; RESP 16; TEMP 98.1; O2SAT 99
== END 2018-02-09 22:45 | disposition home or self-care (01) ==
LOC: C.ER 21:21
DX: Z76.5 Malingerer [conscious simulation] (principal); F10.10 Alcohol abuse, uncomplicated; Y90.9 Presence of alcohol in blood, level not specified

== ENCOUNTER 2018-02-12 00:22 | Emergency (ER) | payer MEDICAID ==
[2018-02-12 00:22] VITALS: BMI 29.7
--- NOTE | 2018-02-12 01:16 | C.PDOC ---
History Of Present Illness 57 year old male with long history of alcohol abuse presents to the ED intoxicated looking for a place to stay. Patient admits to drinking today and while on the ED had 3 bottles of vodka on himself. Patient denies SI/HI, hallucinations, CP, SOB. Chief Complaint (Nursing): Substance Abuse History Per: Patient History/Exam Limitations: intoxication Onset/Duration Of Symptoms: Hrs Current Symptoms Are (Timing): Still Present Suicide/Self Injury Attempted (Context): None Modifying Factor(s): Alcohol Associated Symptoms: denies: Depression, Suicidal Thoughts, Suicidal Plan Recent travel outside of the [place]: No Additional History Per: Patient Past Medical History Reviewed: Historical Data, Nursing Documentation, Vital Signs Vital Signs: Last Vital Signs Temp 98.0 F 02/12/18 05:12 Pulse 90 02/12/18 05:12 Resp 18 02/12/18 05:12 BP 122/87 02/12/18 05:12 Pulse Ox 98 03/09/18 15:39 - Medical History PMH: Anxiety, Arthritis, Bronchitis, CAD, Depression, Diabetes (Pt. did not disclose to automotive service writer, not aware), Fractures (RIGHT ARM), Gastritis, Gall Bladder Disease (s/p cholecystectomy), HTN, Post Traumatic Stress Disorder, Rheumatoid Arthritis, Seizures, Chronic Pain Denies: Chronic Kidney Disease Surgical History: Cholecystectomy - [facility] Procedures ALCOHOL DETOXIFICATION (07/04/15) APPLICATION OF SPLINT (03/20/13) CLOSURE SKIN & SUBCUTANEOUS NEC (08/14/13) DETOXIFICATION SERVICES FOR SUBSTANCE ABUSE TREATMENT (03/22/16) ESOPHAGOGASTRODUODENOSCOPY [EGD] W/CLOSED BIOPSY (02/16/15) OTHER GROUP THERAPY (03/12/13) PHYSICAL THERAPY NEC (07/04/15) TETANUS TOXOID ADMINIST (01/19/14) Family History: States: Unknown Family Hx - Social History Hx Tobacco Use: No Hx Alcohol Use: Yes Hx Substance Use: No - Immunization History Hx Tetanus Toxoid Vaccination: No Hx Influenza Vaccination: No Hx Pneumococcal Vaccination: No Review Of Systems Constitutional: Negative for: Fever, Chills Cardiovascular: Negative for: Chest Pain Respiratory: Negative for: Shortness of Breath Gastrointestinal: Negative for: Abdominal Pain Skin: Negative for: Rash Psych: Negative for: Depression, Suicidal ideation Physical Exam - Physical Exam Appears: Non-toxic, No Acute Distress, Unkempt Skin: Normal Color, Warm, Dry Head: Atraumatic, Normacephalic Eye(s): bilateral: Normal Inspection Nose: No Discharge Oral Mucosa: Moist Neck: Normal ROM, Supple Chest: Symmetrical Cardiovascular: Rhythm Regular, No Murmur Respiratory: Normal Breath Sounds, No Rales, No Rhonchi, No Wheezing Gastrointestinal/Abdominal: Soft, No Tenderness, No Guarding, No Rebound Extremity: Normal ROM, No Tenderness, No Swelling Neurological/Psych: Oriented x3 Gait: Steady ED Course And Treatment O2 Sat by Pulse Oximetry: 98 (On RA) Pulse Ox Interpretation: Normal Medical Decision Making Medical Decision Making: Impression: alcohol abuse Disposition - Disposition Referrals: Alcoholics Anonymous [Outside] Non [facility] Provider, [Primary Care Provider] - Disposition: HOME/ ROUTINE Disposition Time: 21:34 Condition: GOOD Instructions: Alcohol Abuse and Alcoholism (DC) Forms: [employer] (Kazakh) Print Language: MALAY - Clinical Impression Clinical Impression: Alcohol intoxication, Homelessness - Scribe Statement The provider has reviewed the documentation as recorded by the Scribe Woo Brown All medical record entries made by the Scribe were at my direction and personally dictated by me. I have reviewed the chart and agree that the record accurately reflects my personal performance of the history, physical exam, medical decision making, and the department course for this patient. I have also personally directed, reviewed, and agree with the discharge instructions and disposition.
[2018-02-12 05:13] VITALS: BP 122/87; PULSE 90; RESP 18; TEMP 98
[2018-03-09 15:40] VITALS: O2SAT 98
== END 2018-02-12 05:32 | disposition home or self-care (01) ==
LOC: SUPCPDRO 00:22 → C.ER 00:22
DX: F10.129 Alcohol abuse with intoxication, unspecified (principal); Y90.9 Presence of alcohol in blood, level not specified; Z59.0 Homelessness

== ENCOUNTER 2018-02-12 21:11 | Emergency (ER) | payer SELFPAY ==
[2018-02-12 21:11] VITALS: BMI 29.7
[2018-02-12 21:49] VITALS: TEMP 97.9
[2018-02-12 23:48] VITALS: RESP 16
--- NOTE | 2018-02-13 01:26 | C.PDOC ---
History Of Present Illness 57 year old male presents to the ER with acute ETOH intoxication, requesting a place to spend the night. Denies physical complaints at this time. Chief Complaint (Nursing): Substance Abuse History Per: Patient History/Exam Limitations: no limitations Onset/Duration Of Symptoms: Hrs Current Symptoms Are (Timing): Still Present Suicide/Self Injury Attempted (Context): None Modifying Factor(s): Alcohol Associated Symptoms: denies: Depression, Suicidal Thoughts Involuntary Hold By: None Recent travel outside of the [place]: No Past Medical History Reviewed: Historical Data, Nursing Documentation, Vital Signs Vital Signs: Last Vital Signs Temp 97.9 F 02/12/18 21:45 Pulse 82 02/13/18 03:14 Resp 16 02/13/18 03:14 BP 130/78 02/12/18 21:45 Pulse Ox 97 02/13/18 03:14 - Medical History PMH: Anxiety, Arthritis, Bronchitis, CAD, Depression, Diabetes (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, not aware), Fractures (RIGHT ARM), Gastritis, Gall Bladder Disease (s/p cholecystectomy), HTN, Post Traumatic Stress Disorder, Rheumatoid Arthritis, Seizures, Chronic Pain Denies: Chronic Kidney Disease Surgical History: Cholecystectomy - [facility] Procedures ALCOHOL DETOXIFICATION (07/04/15) APPLICATION OF SPLINT (03/20/13) CLOSURE SKIN & SUBCUTANEOUS NEC (08/14/13) DETOXIFICATION SERVICES FOR SUBSTANCE ABUSE TREATMENT (03/22/16) ESOPHAGOGASTRODUODENOSCOPY [EGD] W/CLOSED BIOPSY (02/16/15) OTHER GROUP THERAPY (03/12/13) PHYSICAL THERAPY NEC (07/04/15) TETANUS TOXOID ADMINIST (01/19/14) Family History: States: Unknown Family Hx - Social History Hx Tobacco Use: No Hx Alcohol Use: Yes Hx Substance Use: No - Immunization History Hx Tetanus Toxoid Vaccination: No Hx Influenza Vaccination: No Hx Pneumococcal Vaccination: No Review Of Systems Constitutional: Negative for: Fever, Chills Cardiovascular: Negative for: Chest Pain, Palpitations Respiratory: Negative for: Cough, Shortness of Breath Gastrointestinal: Negative for: Nausea, Vomiting, Abdominal Pain Physical Exam - Physical Exam Appears: Non-toxic, Other (ETOH on breath, no sign of injury) Skin: Normal Color, Warm, Dry Head: Atraumatic, Normacephalic Eye(s): bilateral: Normal Inspection Oral Mucosa: Moist Chest: Symmetrical, No Tenderness Cardiovascular: Rhythm Regular Respiratory: Normal Breath Sounds, No Rales, No Rhonchi, No Wheezing Gastrointestinal/Abdominal: Soft, No Tenderness Neurological/Psych: Oriented x3, Normal Speech ED Course And Treatment O2 Sat by Pulse Oximetry: 98 (Room air) Pulse Ox Interpretation: Normal Disposition - Disposition Referrals: [facility] [Outside] [facility] [Outside] Disposition Time: 04:00 Condition: IMPROVED Additional Instructions: Thank you for letting us take care of you today. The emergency medical care you received today was directed at your acute symptoms. If you were prescribed any medication, please fill it and take as directed. It may take several days for your symptoms to resolve. Return to the Emergency Department if your symptoms worsen, do not improve, or if you have any other problems. Please contact your doctor or call one of the physicians/clinics you have been referred to that are listed on the Patient Visit Information form that is included in your discharge packet. Bring any paperwork you were given at discharge with you along with any medications you are taking to your follow up visit. Our treatment cannot replace ongoing medical care by a primary care provider (PCP) outside of the emergency department. Thank you for allowing the [facility] team to be part of your care today. Follow up with the clinic in 3-5 days for outpatient management. Instructions: Alcohol Abuse and Alcoholism (DC) Forms: [employer] (Saudi Arabian) - Clinical Impression Clinical Impression: Alcohol intoxication - Scribe Statement The provider has reviewed the documentation as recorded by the Scribe Fabián Ramirez All medical record entries made by the Scribe were at my direction and personally dictated by me. I have reviewed the chart and agree that the record accurately reflects my personal performance of the history, physical exam, medical decision making, and the department course for this patient. I have also personally directed, reviewed, and agree with the discharge instructions and disposition.
[2018-02-13 06:00] VITALS: BP 135/80; PULSE 90; O2SAT 96
== END 2018-02-13 06:00 | disposition home or self-care (01) ==
LOC: C.ER 21:11
DX: F10.129 Alcohol abuse with intoxication, unspecified (principal); Y90.9 Presence of alcohol in blood, level not specified

== ENCOUNTER 2018-02-15 00:06 | Emergency (ER) | payer MEDICAID ==
[2018-02-15 00:07] VITALS: BMI 29.7
--- NOTE | 2018-02-15 00:19 | C.PDOC ---
History Of Present Illness 57 y/o male walks into ED and states he needs a place to stay for the night. Denies any injuries or physical complaints. Time Seen by Provider: 02/15/18 00:17 History Per: Patient History/Exam Limitations: no limitations Onset/Duration Of Symptoms: Hrs Current Symptoms Are (Timing): Still Present Suicide/Self Injury Attempted (Context): None Modifying Factor(s): Alcohol Associated Symptoms: denies: Suicidal Thoughts, Suicidal Plan Involuntary Hold By: None Recent travel outside of the [place]: No Past Medical History Reviewed: Historical Data, Nursing Documentation, Vital Signs - Medical History PMH: Anxiety, Arthritis, Bronchitis, CAD, Depression, Diabetes (Pt. did not disclose to copy writer, not aware), Fractures (RIGHT ARM), Gastritis, Gall Bladder Disease (s/p cholecystectomy), HTN, Post Traumatic Stress Disorder, Rheumatoid Arthritis, Seizures, Chronic Pain Surgical History: Cholecystectomy - [facility] Procedures ALCOHOL DETOXIFICATION (07/04/15) APPLICATION OF SPLINT (03/20/13) CLOSURE SKIN & SUBCUTANEOUS NEC (08/14/13) DETOXIFICATION SERVICES FOR SUBSTANCE ABUSE TREATMENT (03/22/16) ESOPHAGOGASTRODUODENOSCOPY [EGD] W/CLOSED BIOPSY (02/16/15) OTHER GROUP THERAPY (03/12/13) PHYSICAL THERAPY NEC (07/04/15) TETANUS TOXOID ADMINIST (01/19/14) Family History: States: Unknown Family Hx - Social History Hx Tobacco Use: No Hx Alcohol Use: Yes Hx Substance Use: No - Immunization History Hx Tetanus Toxoid Vaccination: No Hx Influenza Vaccination: No Hx Pneumococcal Vaccination: No Review Of Systems Constitutional: Negative for: Fever, Chills Cardiovascular: Negative for: Chest Pain Respiratory: Negative for: Shortness of Breath Gastrointestinal: Negative for: Nausea, Vomiting, Abdominal Pain, Diarrhea Skin: Negative for: Rash Neurological: Negative for: Weakness, Numbness Psych: Negative for: Suicidal ideation Physical Exam - Physical Exam Appears: Well, Non-toxic, No Acute Distress Skin: Normal Color, Warm, Dry Head: Atraumatic, Normacephalic Eye(s): bilateral: Normal Inspection, PERRL, EOMI Oral Mucosa: Moist Neck: Supple Chest: Symmetrical, No Tenderness Cardiovascular: Rhythm Regular Respiratory: Normal Breath Sounds, No Decreased Breath Sounds, No Rales, No Rhonchi, No Wheezing Gastrointestinal/Abdominal: Soft, No Tenderness, No Distention Extremity: Normal ROM, No Tenderness, No Deformity Extremity: Bilateral: Normal Color And Temperature, Normal ROM Neurological/Psych: Oriented x3, Normal Speech, Normal Cognition, Other (no focal deficits) Gait: Steady Medical Decision Making Medical Decision Making: malingering/etoh no acute issues Disposition Doctor Will See Patient In The: Office Counseled Patient/Family Regarding: Studies Performed, Diagnosis - Disposition Referrals: Alcoholics Anonymous [Outside] [facility] [Outside] [facility] [Outside] Disposition: HOME/ ROUTINE Disposition Time: 00:18 Condition: GOOD Additional Instructions: seek nightly long-term placement seek AA Seek psych services for your psych issues. Instructions: Alcohol Use - When Is Drinking a Problem? - Clinical Impression Clinical Impression: H/O alcohol abuse, Malingering - Scribe Statement The provider has reviewed the documentation as recorded by the Scribjosé miguel Rosales All medical record entries made by the Rominaibjosé miguel were at my direction and personally dictated by me. I have reviewed the chart and agree that the record accurately reflects my personal performance of the history, physical exam, medical decision making, and the department course for this patient. I have also personally directed, reviewed, and agree with the discharge instructions and disposition.
[2018-02-15 00:34] VITALS: BP 129/79; PULSE 102; RESP 18; TEMP 98.1; O2SAT 95
== END 2018-02-15 01:04 | disposition home or self-care (01) ==
LOC: C.ER 00:06
DX: F10.10 Alcohol abuse, uncomplicated (principal); Z76.5 Malingerer [conscious simulation]

== ENCOUNTER 2018-02-15 20:37 | Emergency (ER) | payer MEDICAID ==
[2018-02-15 20:38] VITALS: BMI 29.7
--- NOTE | 2018-02-15 21:08 | C.PDOC ---
History Of Present Illness 57 y/o male brought to ER by ambulance for ETOH intoxication. Patient denies having suicidal ideation, homicidal ideation, and active physical complaints. Of note, patient is well known to the ER as he visited the ER multiple times for substance abuse. Time Seen by Provider: 02/15/18 21:08 Chief Complaint (Nursing): Substance Abuse History Per: Patient History/Exam Limitations: no limitations Past Medical History Reviewed: Historical Data, Nursing Documentation, Vital Signs Vital Signs: Last Vital Signs Temp 97.9 F 02/16/18 05:18 Pulse 84 02/16/18 05:18 Resp 18 02/16/18 05:18 BP 128/74 02/16/18 05:18 Pulse Ox 99 02/16/18 05:18 - Medical History PMH: Anxiety, Arthritis, Bronchitis, CAD, Depression, Diabetes (Pt. did not disclose to contract writer, not aware), Fractures (RIGHT ARM), Gastritis, Gall Bladder Disease (s/p cholecystectomy), HTN, Post Traumatic Stress Disorder, Rheumatoid Arthritis, Seizures, Chronic Pain Denies: Chronic Kidney Disease Surgical History: Cholecystectomy - [facility] Procedures ALCOHOL DETOXIFICATION (07/04/15) APPLICATION OF SPLINT (03/20/13) CLOSURE SKIN & SUBCUTANEOUS NEC (08/14/13) DETOXIFICATION SERVICES FOR SUBSTANCE ABUSE TREATMENT (03/22/16) ESOPHAGOGASTRODUODENOSCOPY [EGD] W/CLOSED BIOPSY (02/16/15) OTHER GROUP THERAPY (03/12/13) PHYSICAL THERAPY NEC (07/04/15) TETANUS TOXOID ADMINIST (01/19/14) Family History: States: No Known Family Hx - Social History Hx Tobacco Use: No Hx Alcohol Use: Yes Hx Substance Use: No - Immunization History Hx Tetanus Toxoid Vaccination: No Hx Influenza Vaccination: No Hx Pneumococcal Vaccination: No Review Of Systems Except As Marked, All Systems Reviewed And Found Negative. Physical Exam - Physical Exam Appears: No Acute Distress Skin: Normal Color, Warm Head: Atraumatic, Normacephalic Eye(s): bilateral: Normal Inspection Nose: Normal Oral Mucosa: Moist, Other (ETOH on breath) Cardiovascular: Rhythm Regular Respiratory: Normal Breath Sounds, No Rales, No Rhonchi, No Wheezing Neurological/Psych: Oriented x3, Normal Speech ED Course And Treatment O2 Sat by Pulse Oximetry: 97 (RA) Pulse Ox Interpretation: Normal Progress Note: pt dc PRIOR TO MY REEVALUATION. PER RNS, PT IMPROVED W STEADY GAIT. Reevaluation Time: 05:20 Medical Decision Making Medical Decision Making: Plan: --Glucose, POC Disposition Counseled Patient/Family Regarding: Diagnosis, Need For Followup - Disposition Disposition: HOME/ ROUTINE Disposition Time: 05:20 Condition: IMPROVED Forms: [facility] (Bengali) - Clinical Impression Clinical Impression: Alcohol intoxication - Scribe Statement The provider has reviewed the documentation as recorded by the Jada Jackson Provider Attestation: All medical record entries made by the Rominaibjosé miguel were at my direction and personally dictated by me. I have reviewed the chart and agree that the record accurately reflects my personal performance of the history, physical exam, medical decision making, and the department course for this patient. I have also personally directed, reviewed, and agree with the discharge instructions and disposition.
[2018-02-16 05:19] VITALS: BP 128/74; PULSE 84; RESP 18; TEMP 97.9
[2018-02-18 07:45] VITALS: O2SAT 97
== END 2018-02-16 05:19 | disposition home or self-care (01) ==
LOC: C.ER 20:37
DX: F10.129 Alcohol abuse with intoxication, unspecified (principal)

== ENCOUNTER 2018-02-16 22:21 | Emergency (ER) | payer MEDICAID ==
[2018-02-16 22:22] VITALS: BMI 29.7
[2018-02-16 22:25] VITALS: BP 155/98; PULSE 83; RESP 20; TEMP 97.9; O2SAT 98
--- NOTE | 2018-02-16 22:30 | C.PDOC ---
History Of Present Illness 57 year old male presents to the ED with alcohol intoxication. Patient admits to drinking earlier today. He denies suicidal/homicidal ideation and has no other complaints at this time. Time Seen by Provider: 02/16/18 22:26 Chief Complaint (Nursing): Substance Abuse History Per: Patient History/Exam Limitations: intoxication Onset/Duration Of Symptoms: Hrs Current Symptoms Are (Timing): Still Present Suicide/Self Injury Attempted (Context): None Modifying Factor(s): Alcohol Associated Symptoms: denies: Suicidal Thoughts, Suicidal Plan Involuntary Hold By: None Recent travel outside of the [place]: No Additional History Per: Patient Past Medical History Reviewed: Historical Data, Nursing Documentation, Vital Signs Vital Signs: Last Vital Signs Temp 97.9 F 02/16/18 22:22 Pulse 83 02/16/18 22:22 Resp 20 02/16/18 22:22 BP 155/98 H 02/16/18 22:22 Pulse Ox 98 02/16/18 22:57 - Medical History PMH: Anxiety, Arthritis, Bronchitis, CAD, Depression, Diabetes (Pt. 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 not disclose to designer/writer, not aware), Fractures (RIGHT ARM), Gastritis, Gall Bladder Disease (s/p cholecystectomy), HTN, Post Traumatic Stress Disorder, Rheumatoid Arthritis, Seizures, Chronic Pain Denies: Chronic Kidney Disease Surgical History: Cholecystectomy - [facility] Procedures ALCOHOL DETOXIFICATION (07/04/15) APPLICATION OF SPLINT (03/20/13) CLOSURE SKIN & SUBCUTANEOUS NEC (08/14/13) DETOXIFICATION SERVICES FOR SUBSTANCE ABUSE TREATMENT (03/22/16) ESOPHAGOGASTRODUODENOSCOPY [EGD] W/CLOSED BIOPSY (02/16/15) OTHER GROUP THERAPY (03/12/13) PHYSICAL THERAPY NEC (07/04/15) TETANUS TOXOID ADMINIST (01/19/14) Family History: States: Unknown Family Hx - Social History Hx Tobacco Use: No Hx Alcohol Use: Yes Hx Substance Use: No - Immunization History Hx Tetanus Toxoid Vaccination: No Hx Influenza Vaccination: No Hx Pneumococcal Vaccination: No Review Of Systems Psych: Positive for: Other (EtOH intoxication ). Negative for: Suicidal ideation Physical Exam - Physical Exam Appears: Non-toxic, No Acute Distress, Other (visibly intoxicated ) Skin: Normal Color, Warm, Dry Head: Atraumatic, Normacephalic Eye(s): bilateral: Normal Inspection Oral Mucosa: Moist, Other (alcohol on breath ) Neck: Supple Chest: Symmetrical, No Deformity, No Tenderness Cardiovascular: Rhythm Regular, No Murmur Respiratory: Normal Breath Sounds, No Rales, No Rhonchi, No Wheezing Extremity: Normal ROM, Capillary Refill (less than 2 seconds ) Neurological/Psych: Other (awake, alert and arousable to touch and verbal stimuli ) ED Course And Treatment O2 Sat by Pulse Oximetry: 98 (on RA ) Pulse Ox Interpretation: Normal Medical Decision Making Medical Decision Making: alcohol abuse, malingering no acute issues, baseline gait Disposition Doctor Will See Patient In The: Office Counseled Patient/Family Regarding: Studies Performed, Diagnosis - Disposition Referrals: Alcoholics Anonymous [Outside] [facility] [Outside] [facility] [Outside] [facility] [Outside] [facility] [Outside] Disposition: HOME/ ROUTINE Disposition Time: 22:57 Condition: GOOD Additional Instructions: seek nightly correction placement seek AA Seek outpatient psych for your underlying psych issues. Instructions: Alcohol Abuse and Alcoholism (DC), Effects of Alcohol on Your Health Forms: [employer] (Egyptian) - Clinical Impression Clinical Impression: Alcohol abuse, daily use, Malingering - Scribe Statement The provider has reviewed the documentation as recorded by the Scribe (Kari Fajardo) Provider Attestation: All medical record entries made by the Scribe were at my direction and personally dictated by me. I have reviewed the chart and agree that the record accurately reflects my personal performance of the history, physical exam, medical decision making, and the department course for this patient. I have also personally directed, reviewed, and agree with the discharge instructions and disposition.
== END 2018-02-16 22:40 | disposition home or self-care (01) ==
LOC: C.ER 22:21
DX: F10.129 Alcohol abuse with intoxication, unspecified (principal); Y90.9 Presence of alcohol in blood, level not specified; Z76.5 Malingerer [conscious simulation]

== ENCOUNTER 2018-02-18 00:44 | Emergency (ER) | payer MEDICAID ==
[2018-02-18 00:45] VITALS: BMI 29.7
[2018-02-18 01:10] VITALS: O2SAT 98
--- NOTE | 2018-02-18 01:30 | C.PDOC ---
History Of Present Illness Patient brought via EMS after being found intoxicated in public. Denies physical complaints at this time. Time Seen by Provider: 02/18/18 01:29 Chief Complaint (Nursing): Substance Abuse History Per: Patient History/Exam Limitations: no limitations Onset/Duration Of Symptoms: Hrs Current Symptoms Are (Timing): Still Present Suicide/Self Injury Attempted (Context): None Modifying Factor(s): Alcohol Severity: None Pain Scale Rating Of: 0 Associated Symptoms: denies: Depression, Suicidal Thoughts Involuntary Hold By: None Recent travel outside of the [place]: No Past Medical History Reviewed: Historical Data, Nursing Documentation, Vital Signs Vital Signs: Last Vital Signs Temp 98.3 F 02/18/18 01:07 Pulse 66 02/18/18 01:07 Resp 20 02/18/18 01:07 BP 139/79 02/18/18 01:07 Pulse Ox 98 02/18/18 01:58 - Medical History PMH: Anxiety, Arthritis, Bronchitis, CAD, Depression, Diabetes (Pt. did not disclose to rewriter, not aware), Fractures (RIGHT ARM), Gastritis, Gall Bladder Disease (s/p cholecystectomy), HTN, Post Traumatic Stress Disorder, Rheumatoid Arthritis, Seizures, Chronic Pain Surgical History: Cholecystectomy - [facility] Procedures ALCOHOL DETOXIFICATION (07/04/15) APPLICATION OF SPLINT (03/20/13) CLOSURE SKIN & SUBCUTANEOUS NEC (08/14/13) DETOXIFICATION SERVICES FOR SUBSTANCE ABUSE TREATMENT (03/22/16) ESOPHAGOGASTRODUODENOSCOPY [EGD] W/CLOSED BIOPSY (02/16/15) OTHER GROUP THERAPY (03/12/13) PHYSICAL THERAPY NEC (07/04/15) TETANUS TOXOID ADMINIST (01/19/14) Family History: States: No Known Family Hx - Social History Hx Tobacco Use: No Hx Alcohol Use: Yes Hx Substance Use: No - Immunization History Hx Tetanus Toxoid Vaccination: No Hx Influenza Vaccination: No Hx Pneumococcal Vaccination: No Review Of Systems Constitutional: Negative for: Fever, Chills Cardiovascular: Negative for: Chest Pain Respiratory: Negative for: Cough Gastrointestinal: Negative for: Nausea, Vomiting Physical Exam - Physical Exam Appears: Non-toxic, Other (ETOH on breath) Skin: Warm, Dry Head: Normacephalic Oral Mucosa: Moist Chest: Symmetrical, No Tenderness Cardiovascular: Rhythm Regular Respiratory: No Rales, No Rhonchi, No Wheezing Gastrointestinal/Abdominal: Soft, No Tenderness Neurological/Psych: Oriented x3 ED Course And Treatment O2 Sat by Pulse Oximetry: 98 (Room air) Pulse Ox Interpretation: Normal Reevaluation Time: 04:51 Reassessment Condition: Improved Disposition Counseled Patient/Family Regarding: Studies Performed, Diagnosis - Disposition Referrals: [facility] at [facility] [Outside] Disposition: HOME/ ROUTINE Disposition Time: 01:29 Condition: FAIR Instructions: Alcohol Abuse and Alcoholism (DC) Forms: [employer] (Kyrgyz) - Clinical Impression Clinical Impression: Alcoholism /alcohol abuse, Alcohol intoxication - Scribe Statement The provider has reviewed the documentation as recorded by the Scribe Fabián Ramirez All medical record entries made by the Scribe were at my direction and personally dictated by me. I have reviewed the chart and agree that the record accurately reflects my personal performance of the history, physical exam, medical decision making, and the department course for this patient. I have also personally directed, reviewed, and agree with the discharge instructions and disposition.
[2018-02-18 05:29] VITALS: BP 142/77; PULSE 91; RESP 16; TEMP 98.8
== END 2018-02-18 05:39 | disposition home or self-care (01) ==
LOC: C.ER 00:44
DX: F10.229 Alcohol dependence with intoxication, unspecified (principal); Y90.9 Presence of alcohol in blood, level not specified

== ENCOUNTER 2018-02-20 23:38 | Emergency (ER) | payer MEDICAID ==
[2018-02-20 23:39] VITALS: BMI 29.7
--- NOTE | 2018-02-21 00:32 | C.PDOC ---
History Of Present Illness Patient presents to the ER after being found inebriated in public. Denies any physical complaints at this time. Time Seen by Provider: 02/21/18 00:30 Chief Complaint (Nursing): Substance Abuse History Per: Patient History/Exam Limitations: no limitations Onset/Duration Of Symptoms: Hrs Current Symptoms Are (Timing): Still Present Suicide/Self Injury Attempted (Context): None Modifying Factor(s): Alcohol Severity: None Pain Scale Rating Of: 0 Associated Symptoms: denies: Depression, Suicidal Thoughts Involuntary Hold By: None Recent travel outside of the [place]: No Past Medical History Reviewed: Historical Data, Nursing Documentation, Vital Signs Vital Signs: Last Vital Signs Temp 98 F 02/21/18 00:14 Pulse 82 02/21/18 00:14 Resp 20 02/21/18 00:14 BP 132/78 02/21/18 00:14 Pulse Ox 96 02/21/18 00:35 - Medical History PMH: Anxiety, Arthritis, Bronchitis, CAD, Depression, Diabetes (Pt. did not disclose to report writer, not aware), Fractures (RIGHT ARM), Gastritis, Gall Bladder Disease (s/p cholecystectomy), HTN, Post Traumatic Stress Disorder, Rheumatoid Arthritis, Seizures, Chronic Pain Surgical History: Cholecystectomy - [facility] Procedures ALCOHOL DETOXIFICATION (07/04/15) APPLICATION OF SPLINT (03/20/13) CLOSURE SKIN & SUBCUTANEOUS NEC (08/14/13) DETOXIFICATION SERVICES FOR SUBSTANCE ABUSE TREATMENT (03/22/16) ESOPHAGOGASTRODUODENOSCOPY [EGD] W/CLOSED BIOPSY (02/16/15) OTHER GROUP THERAPY (03/12/13) PHYSICAL THERAPY NEC (07/04/15) TETANUS TOXOID ADMINIST (01/19/14) Family History: States: No Known Family Hx - Social History Hx Tobacco Use: No Hx Alcohol Use: Yes Hx Substance Use: No - Immunization History Hx Tetanus Toxoid Vaccination: No Hx Influenza Vaccination: No Hx Pneumococcal Vaccination: No Review Of Systems Constitutional: Negative for: Fever, Chills Cardiovascular: Negative for: Chest Pain, Palpitations Respiratory: Negative for: Shortness of Breath Gastrointestinal: Negative for: Nausea, Vomiting Physical Exam - Physical Exam Appears: Non-toxic, Other (ETOH on breath, no sign of injury) Skin: Warm, Dry Head: Normacephalic Oral Mucosa: Moist Chest: Symmetrical, No Tenderness Cardiovascular: Rhythm Regular Respiratory: No Rales, No Rhonchi, No Wheezing Gastrointestinal/Abdominal: Soft, No Tenderness Neurological/Psych: Oriented x3 ED Course And Treatment O2 Sat by Pulse Oximetry: 96 (Room air) Pulse Ox Interpretation: Normal Reevaluation Time: 05:03 Reassessment Condition: Improved Disposition Counseled Patient/Family Regarding: Studies Performed, Diagnosis, Need For Followup - Disposition Referrals: [facility] at [facility] [Outside] Disposition: HOME/ ROUTINE Disposition Time: 00:31 Condition: FAIR Instructions: Alcohol Abuse and Alcoholism (DC) Forms: [employer] (Macedonian) - Clinical Impression Clinical Impression: Alcohol abuse, daily use, Alcohol intoxication - Scribe Statement The provider has reviewed the documentation as recorded by the Scribe Fabián Ramirez All medical record entries made by the Scribe were at my direction and personally dictated by me. I have reviewed the chart and agree that the record accurately reflects my personal performance of the history, physical exam, medical decision making, and the department course for this patient. I have also personally directed, reviewed, and agree with the discharge instructions and disposition.
[2018-02-21 05:12] VITALS: BP 103/68; PULSE 89; RESP 16; TEMP 97.8; O2SAT 99
== END 2018-02-21 05:35 | disposition home or self-care (01) ==
LOC: C.ER 23:38
DX: F10.129 Alcohol abuse with intoxication, unspecified (principal); Y90.9 Presence of alcohol in blood, level not specified

== ENCOUNTER 2018-02-21 23:51 | Emergency (ER) | payer MEDICAID ==
[2018-02-21 23:51] VITALS: BMI 29.7
--- NOTE | 2018-02-22 01:44 | C.PDOC ---
History Of Present Illness 57 Year old male, with a past history of ETOH abuse, who was brought to the emergency department by EMS for ETOH intoxication. Patient admits to drinking alcohol today. Patient is well known in the ED for prior visits of ETOH abuse. He denies any other medical complaints. PMD: None provided. Time Seen by Provider: 02/21/18 23:52 Chief Complaint (Nursing): Substance Abuse History Per: Patient History/Exam Limitations: no limitations Onset/Duration Of Symptoms: Hrs (today) Current Symptoms Are (Timing): Still Present Suicide/Self Injury Attempted (Context): None Involuntary Hold By: None Past Medical History Reviewed: Historical Data, Nursing Documentation, Vital Signs Vital Signs: Last Vital Signs Temp 98.1 F 02/21/18 23:59 Pulse 90 02/21/18 23:59 Resp 16 02/21/18 23:59 BP 116/72 02/21/18 23:59 Pulse Ox 96 02/22/18 01:47 - Medical History PMH: Anxiety, Arthritis, Bronchitis, CAD, Depression, Diabetes (Pt. did not disclose to clinical writer, not aware), Fractures (RIGHT ARM), Gastritis, Gall Bladder Disease (s/p cholecystectomy), HTN, Post Traumatic Stress Disorder, Rheumatoid Arthritis, Seizures, Chronic Pain Denies: Chronic Kidney Disease Surgical History: Cholecystectomy - [facility] Procedures ALCOHOL DETOXIFICATION (07/04/15) APPLICATION OF SPLINT (03/20/13) CLOSURE SKIN & SUBCUTANEOUS NEC (08/14/13) DETOXIFICATION SERVICES FOR SUBSTANCE ABUSE TREATMENT (03/22/16) ESOPHAGOGASTRODUODENOSCOPY [EGD] W/CLOSED BIOPSY (02/16/15) OTHER GROUP THERAPY (03/12/13) PHYSICAL THERAPY NEC (07/04/15) TETANUS TOXOID ADMINIST (01/19/14) Family History: States: Unknown Family Hx - Social History Hx Tobacco Use: No Hx Alcohol Use: Yes Hx Substance Use: No - Immunization History Hx Tetanus Toxoid Vaccination: No Hx Influenza Vaccination: No Hx Pneumococcal Vaccination: No Review Of Systems Except As Marked, All Systems Reviewed And Found Negative. Constitutional: Positive for: Other (ETOH intoxication) Physical Exam - Physical Exam Appears: No Acute Distress, Other (ETOH odor) Skin: Normal Color, Warm, Dry Head: Atraumatic, Normacephalic Eye(s): bilateral: Normal Inspection, PERRL, EOMI Neck: Normal ROM Cardiovascular: Rhythm Regular, No Murmur Respiratory: Normal Breath Sounds, No Wheezing Gastrointestinal/Abdominal: Normal Exam, Soft, No Tenderness Extremity: Normal ROM (upper and lower extremities), No Deformity, No Swelling Neurological/Psych: Other (awake and alert but intoxicated) ED Course And Treatment O2 Sat by Pulse Oximetry: 96 (RA) Pulse Ox Interpretation: Normal Progress Note: Initial Plan: Gluocse, Blood POC. Pending sobriety Disposition - Disposition Disposition: HOME/ ROUTINE Disposition Time: 06:00 Condition: STABLE Forms: [facility] (Upper Sorbian) - Clinical Impression Clinical Impression: Alcohol intoxication - Scribe Statement The provider has reviewed the documentation as recorded by the Jada Denise Provider Attestation: All medical record entries made by the Jada were at my direction and personally dictated by me. I have reviewed the chart and agree that the record accurately reflects my personal performance of the history, physical exam, medical decision making, and the department course for this patient. I have also personally directed, reviewed, and agree with the discharge instructions and disposition.
[2018-02-22 06:33] VITALS: BP 134/72; PULSE 78; RESP 20; TEMP 98; O2SAT 98
== END 2018-02-22 06:00 | disposition home or self-care (01) ==
LOC: C.ER 23:51
DX: F10.129 Alcohol abuse with intoxication, unspecified (principal); E11.9 Type 2 diabetes mellitus without complications; I25.10 Atherosclerotic heart disease of native coronary artery without angina pectoris

== ENCOUNTER 2018-02-22 21:37 | Emergency (ER) | payer MEDICAID ==
[2018-02-22 21:38] VITALS: BMI 29.7
--- NOTE | 2018-02-22 21:57 | C.PDOC ---
History Of Present Illness 57 y/o undomiciled male with a history of alcohol abuse presents to the ED with EtOH intoxication. Patient was brought in by ambulance for public intoxication for the last two nights. PMD: none provided Time Seen by Provider: 02/22/18 21:54 Chief Complaint (Nursing): Substance Abuse History Per: Patient History/Exam Limitations: intoxication Onset/Duration Of Symptoms: Days (x2) Current Symptoms Are (Timing): Still Present Modifying Factor(s): Alcohol Recent travel outside of the [place]: No Past Medical History Vital Signs: Last Vital Signs Temp 97.5 F L 02/22/18 22:05 Pulse 88 02/22/18 23:35 Resp 18 02/22/18 23:35 BP 136/86 02/22/18 23:35 Pulse Ox 97 02/22/18 23:35 - Medical History PMH: Anxiety, Arthritis, Bronchitis, CAD, Depression, Diabetes (Pt. did not disclose to board writer, not aware), Fractures (RIGHT ARM), Gastritis, Gall Bladder Disease (s/p cholecystectomy), HTN, Post Traumatic Stress Disorder, Rheumatoid Arthritis, Seizures, Chronic Pain Denies: Chronic Kidney Disease Surgical History: Cholecystectomy - [facility] Procedures ALCOHOL DETOXIFICATION (07/04/15) APPLICATION OF SPLINT (03/20/13) CLOSURE SKIN & SUBCUTANEOUS NEC (08/14/13) DETOXIFICATION SERVICES FOR SUBSTANCE ABUSE TREATMENT (03/22/16) ESOPHAGOGASTRODUODENOSCOPY [EGD] W/CLOSED BIOPSY (02/16/15) OTHER GROUP THERAPY (03/12/13) PHYSICAL THERAPY NEC (07/04/15) TETANUS TOXOID ADMINIST (01/19/14) Family History: States: Unknown Family Hx - Social History Hx Tobacco Use: No Hx Alcohol Use: Yes Hx Substance Use: No - Immunization History Hx Tetanus Toxoid Vaccination: No Hx Influenza Vaccination: No Hx Pneumococcal Vaccination: No Review Of Systems Except As Marked, All Systems Reviewed And Found Negative. Constitutional: Positive for: Other (EtOH intoxication) Physical Exam - Physical Exam Appears: Well, No Acute Distress, Other (disheveled and foul smelling) Skin: Normal Color, Warm, Dry Head: Atraumatic, Normacephalic Eye(s): bilateral: Normal Inspection, PERRL, EOMI Nose: Normal Oral Mucosa: Other (EtOH on breath) Throat: Normal Neck: Normal Cardiovascular: Rhythm Regular Respiratory: Normal Breath Sounds, No Decreased Breath Sounds Gastrointestinal/Abdominal: Normal Exam Back: Normal Inspection, No CVA Tenderness, No Vertebral Tenderness Extremity: Normal ROM, No Pedal Edema Neurological/Psych: Oriented x3 Gait: Steady ED Course And Treatment Pulse Ox Interpretation: Normal Medical Decision Making Medical Decision Making: malingering, alcohol abuse stayed here the last 2 nights no new issues stable gait Disposition Doctor Will See Patient In The: Office Counseled Patient/Family Regarding: Studies Performed, Diagnosis - Disposition Referrals: Alcoholics Anonymous [Outside] [facility] [Outside] [facility] [Outside] [facility] [Outside] [facility] [Outside] Disposition: HOME/ ROUTINE Disposition Time: 21:56 Condition: GOOD Additional Instructions: seek nightly fci placement seek outpatient psych services Seek AA Instructions: Alcohol Abuse and Alcoholism (DC) Forms: [facility] (Yi) - Clinical Impression Clinical Impression: Alcohol abuse, Malingering
[2018-02-22 22:09] VITALS: TEMP 97.5; O2SAT 97
[2018-02-22 23:37] VITALS: BP 136/86; PULSE 88; RESP 18
== END 2018-02-22 23:37 | disposition home or self-care (01) ==
LOC: C.ER 21:37
DX: F10.129 Alcohol abuse with intoxication, unspecified (principal); Y90.9 Presence of alcohol in blood, level not specified; Z76.5 Malingerer [conscious simulation]

== ENCOUNTER 2018-02-23 21:17 | Emergency (ER) | payer MEDICAID ==
[2018-02-23 21:17] VITALS: BMI 29.7
--- NOTE | 2018-02-23 21:57 | C.PDOC ---
History Of Present Illness 57 year old male is brought to the ED for evaluation of public alcohol intoxication for an unknown duration. Patient is familiar to the ED and has had many prior evaluations for similar presentations. Patient admits to drinking earlier today and has no complaints at this time. Time Seen by Provider: 02/23/18 21:56 Chief Complaint (Nursing): Substance Abuse History Per: Patient, EMS History/Exam Limitations: intoxication Onset/Duration Of Symptoms: Hrs Current Symptoms Are (Timing): Still Present Suicide/Self Injury Attempted (Context): None Modifying Factor(s): Alcohol Severity: None Pain Scale Rating Of: 0 Associated Symptoms: denies: Suicidal Thoughts, Suicidal Plan Involuntary Hold By: None Recent travel outside of the [place]: No Additional History Per: Patient, EMS Past Medical History Reviewed: Historical Data, Nursing Documentation, Vital Signs Vital Signs: Last Vital Signs Temp 98.7 F 02/24/18 03:37 Pulse 109 H 02/24/18 03:37 Resp 18 02/24/18 03:37 BP 119/68 02/24/18 03:37 Pulse Ox 98 02/24/18 03:37 - Medical History PMH: Anxiety, Arthritis, Bronchitis, CAD, Depression, Diabetes (Pt. did not disclose to news writer, not aware), Fractures (RIGHT ARM), Gastritis, Gall Bladder Disease (s/p cholecystectomy), HTN, Post Traumatic Stress Disorder, Rheumatoid Arthritis, Seizures, Chronic Pain Denies: Chronic Kidney Disease Surgical History: Cholecystectomy - [facility] Procedures ALCOHOL DETOXIFICATION (07/04/15) APPLICATION OF SPLINT (03/20/13) CLOSURE SKIN & SUBCUTANEOUS NEC (08/14/13) DETOXIFICATION SERVICES FOR SUBSTANCE ABUSE TREATMENT (03/22/16) ESOPHAGOGASTRODUODENOSCOPY [EGD] W/CLOSED BIOPSY (02/16/15) OTHER GROUP THERAPY (03/12/13) PHYSICAL THERAPY NEC (07/04/15) TETANUS TOXOID ADMINIST (01/19/14) Family History: States: No Known Family Hx - Social History Hx Tobacco Use: No Hx Alcohol Use: Yes Hx Substance Use: No - Immunization History Hx Tetanus Toxoid Vaccination: No Hx Influenza Vaccination: No Hx Pneumococcal Vaccination: No Review Of Systems Constitutional: Negative for: Fever, Chills Cardiovascular: Negative for: Chest Pain Respiratory: Negative for: Cough, Shortness of Breath Gastrointestinal: Negative for: Nausea, Vomiting, Abdominal Pain Skin: Negative for: Rash, Lesions, Jaundice, Bruising Psych: Positive for: Other (EtOH intoxication ). Negative for: Suicidal ideation Physical Exam - Physical Exam Appears: Non-toxic, No Acute Distress, Other (visibly intoxicated ) Skin: Normal Color, Warm, Dry Head: Normacephalic Eye(s): bilateral: Normal Inspection Oral Mucosa: Moist, Other (alcohol on breath ) Neck: Supple Chest: Symmetrical, No Deformity, No Tenderness Cardiovascular: Rhythm Regular, No Murmur Respiratory: No Accessory Muscle Use Extremity: Normal ROM, Capillary Refill (less than 2 seconds ) Neurological/Psych: Other (arousable to touch and verbal stimuli ) ED Course And Treatment O2 Sat by Pulse Oximetry: 98 (on RA) Pulse Ox Interpretation: Normal Disposition Counseled Patient/Family Regarding: Studies Performed, Diagnosis - Disposition Referrals: [facility] [Outside] Disposition: HOME/ ROUTINE Disposition Time: 21:56 Condition: FAIR Instructions: Alcohol Abuse and Alcoholism (DC) Forms: [employer] (Estonian) - Clinical Impression Clinical Impression: Alcoholism /alcohol abuse - Scribe Statement The provider has reviewed the documentation as recorded by the Scribe (Kari Fajardo) Provider Attestation: All medical record entries made by the Scribe were at my direction and personally dictated by me. I have reviewed the chart and agree that the record accurately reflects my personal performance of the history, physical exam, medical decision making, and the department course for this patient. I have also personally directed, reviewed, and agree with the discharge instructions and disposition.
--- NOTE | 2018-02-23 22:01 | C.PDOC ---
Time Seen by Provider: 02/23/18 21:56 Chief Complaint (Nursing): Substance Abuse Past Medical History Vital Signs: Last Vital Signs Temp 98.3 F 02/23/18 21:49 Pulse 66 02/23/18 21:49 Resp 20 02/23/18 21:49 BP 139/88 02/23/18 21:49 Pulse Ox 98 02/23/18 21:49 - Medical History PMH: Anxiety, Arthritis, Bronchitis, CAD, Depression, Diabetes (Pt. did not disclose to headline writer, not aware), Fractures (RIGHT ARM), Gastritis, Gall Bladder Disease (s/p cholecystectomy), HTN, Post Traumatic Stress Disorder, Rheumatoid Arthritis, Seizures, Chronic Pain Denies: Chronic Kidney Disease Surgical History: Cholecystectomy - [facility] Procedures ALCOHOL DETOXIFICATION (07/04/15) APPLICATION OF SPLINT (03/20/13) CLOSURE SKIN & SUBCUTANEOUS NEC (08/14/13) DETOXIFICATION SERVICES FOR SUBSTANCE ABUSE TREATMENT (03/22/16) ESOPHAGOGASTRODUODENOSCOPY [EGD] W/CLOSED BIOPSY (02/16/15) OTHER GROUP THERAPY (03/12/13) PHYSICAL THERAPY NEC (07/04/15) TETANUS TOXOID ADMINIST (01/19/14) Family History: States: Unknown Family Hx - Social History Hx Tobacco Use: No Hx Alcohol Use: Yes Hx Substance Use: No - Immunization History Hx Tetanus Toxoid Vaccination: No Hx Influenza Vaccination: No Hx Pneumococcal Vaccination: No ED Course And Treatment O2 Sat by Pulse Oximetry: 98 Disposition Counseled Patient/Family Regarding: Studies Performed, Diagnosis, Need For Followup - Disposition Referrals: [facility] [Outside] Disposition: HOME/ ROUTINE Disposition Time: 21:56 Condition: FAIR Instructions: Alcohol Abuse and Alcoholism (DC) - Clinical Impression Clinical Impression: Alcoholism /alcohol abuse
[2018-02-24 03:37] VITALS: TEMP 98.7
[2018-02-24 05:11] VITALS: BP 110/56; PULSE 98; RESP 19; O2SAT 95
== END 2018-02-24 05:39 | disposition home or self-care (01) ==
LOC: C.ER 21:17
DX: F10.20 Alcohol dependence, uncomplicated (principal); E11.9 Type 2 diabetes mellitus without complications; I25.10 Atherosclerotic heart disease of native coronary artery without angina pectoris

== ENCOUNTER 2018-02-24 21:38 | Emergency (ER) | payer MEDICAID ==
[2018-02-24 21:38] VITALS: BMI 29.7
--- NOTE | 2018-02-25 01:13 | C.PDOC ---
History Of Present Illness 57 y/o undomiciled male with a history of alcohol abuse presents to the ED with EtOH intoxication. Patient has no complaints and states he just wants a place to sleep. PMD: none provided Chief Complaint (Nursing): Substance Abuse History Per: Patient History/Exam Limitations: intoxication Onset/Duration Of Symptoms: Hrs Current Symptoms Are (Timing): Still Present Modifying Factor(s): Alcohol Recent travel outside of the [place]: No Past Medical History Reviewed: Historical Data, Nursing Documentation, Vital Signs Vital Signs: Last Vital Signs Temp 98.6 F 02/25/18 05:17 Pulse 73 02/25/18 05:17 Resp 16 02/25/18 05:17 BP 116/76 02/25/18 05:17 Pulse Ox 96 02/25/18 05:17 - Medical History PMH: Anxiety, Arthritis, Bronchitis, CAD, Depression, Diabetes (Pt. 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 writer / runner, not aware), Fractures (RIGHT ARM), Gastritis, Gall Bladder Disease (s/p cholecystectomy), HTN, Post Traumatic Stress Disorder, Rheumatoid Arthritis, Seizures, Chronic Pain Denies: Chronic Kidney Disease Surgical History: Cholecystectomy - [facility] Procedures ALCOHOL DETOXIFICATION (07/04/15) APPLICATION OF SPLINT (03/20/13) CLOSURE SKIN & SUBCUTANEOUS NEC (08/14/13) DETOXIFICATION SERVICES FOR SUBSTANCE ABUSE TREATMENT (03/22/16) ESOPHAGOGASTRODUODENOSCOPY [EGD] W/CLOSED BIOPSY (02/16/15) OTHER GROUP THERAPY (03/12/13) PHYSICAL THERAPY NEC (07/04/15) TETANUS TOXOID ADMINIST (01/19/14) Family History: States: Unknown Family Hx - Social History Hx Tobacco Use: No Hx Alcohol Use: Yes Hx Substance Use: No - Immunization History Hx Tetanus Toxoid Vaccination: No Hx Influenza Vaccination: No Hx Pneumococcal Vaccination: No Review Of Systems Except As Marked, All Systems Reviewed And Found Negative. Constitutional: Positive for: Other (EtOH intoxication) Physical Exam - Physical Exam Appears: Well, No Acute Distress, Other (EtOH on breath, EtOH intoxication, no external evidence of trauma, soil and foul smelling) Skin: Normal Color, Warm, Dry Head: Atraumatic, Normacephalic Eye(s): bilateral: Normal Inspection, PERRL, EOMI Nose: Normal Throat: Normal Neck: Normal, Supple Cardiovascular: Rhythm Regular Respiratory: Normal Breath Sounds, Other (lungs clear to auscultation bilaterally) Gastrointestinal/Abdominal: Normal Exam, Soft, No Tenderness Back: Normal Inspection Extremity: Normal ROM, Other (no external trauma to extremities) Neurological/Psych: Oriented x3, No Normal Speech (slurred), Other (somnolent and will perform frequent neuro checks) ED Course And Treatment O2 Sat by Pulse Oximetry: 89 (RA) Pulse Ox Interpretation: Normal Medical Decision Making Medical Decision Making: Impression: EtOH chronic abuse. Will discharge when clinically sober. Disposition - Disposition Referrals: Alcoholics Anonymous [Outside] Disposition: HOME/ ROUTINE Disposition Time: 06:48 Condition: FAIR Instructions: Effects of Alcohol on Your Health Forms: [employer] (Namibian) Print Language: BRITISH - Clinical Impression Clinical Impression: Acute alcohol intoxication, Homeless single person
[2018-02-25 05:17] VITALS: BP 116/76; PULSE 73; TEMP 98.6
[2018-02-25 06:49] VITALS: O2SAT 89
[2018-02-25 06:51] VITALS: RESP 18
== END 2018-02-25 06:49 | disposition home or self-care (01) ==
LOC: C.ER 21:38
DX: F10.129 Alcohol abuse with intoxication, unspecified (principal); Z59.0 Homelessness

== ENCOUNTER 2018-02-25 21:37 | Emergency (ER) | payer MEDICAID ==
[2018-02-25 21:37] VITALS: BMI 29.7
[2018-02-25 21:57] VITALS: TEMP 98
--- NOTE | 2018-02-26 01:33 | C.PDOC ---
History Of Present Illness 57 year old male presents to the emergency department after being brought in by [facility] while he was walking down the street. Patient admits to drinking tonight. Patient is currently in the ED under the influence of alcohol and sleeping. Patient has no sign of injury. Chief Complaint (Nursing): Substance Abuse History Per: Patient, EMS History/Exam Limitations: intoxication Onset/Duration Of Symptoms: Hrs Modifying Factor(s): Alcohol Past Medical History Vital Signs: Last Vital Signs Temp 98 F 02/25/18 21:49 Pulse 70 02/26/18 03:00 Resp 14 02/26/18 03:00 BP 118/60 02/26/18 03:00 Pulse Ox 98 02/26/18 05:53 - Medical History PMH: Anxiety, Arthritis, Bronchitis, CAD, Depression, 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), Fractures (RIGHT ARM), Gastritis, Gall Bladder Disease (s/p cholecystectomy), HTN, Post Traumatic Stress Disorder, Rheumatoid Arthritis, Seizures, Chronic Pain Denies: Chronic Kidney Disease Surgical History: Cholecystectomy - [facility] Procedures ALCOHOL DETOXIFICATION (07/04/15) APPLICATION OF SPLINT (03/20/13) CLOSURE SKIN & SUBCUTANEOUS NEC (08/14/13) DETOXIFICATION SERVICES FOR SUBSTANCE ABUSE TREATMENT (03/22/16) ESOPHAGOGASTRODUODENOSCOPY [EGD] W/CLOSED BIOPSY (02/16/15) OTHER GROUP THERAPY (03/12/13) PHYSICAL THERAPY NEC (07/04/15) TETANUS TOXOID ADMINIST (01/19/14) Family History: States: Unknown Family Hx - Social History Hx Tobacco Use: No Hx Alcohol Use: Yes Hx Substance Use: No - Immunization History Hx Tetanus Toxoid Vaccination: No Hx Influenza Vaccination: No Hx Pneumococcal Vaccination: No Review Of Systems Constitutional: Negative for: Fever, Chills Neurological: Positive for: Other (under the influence of alcohol) Physical Exam - Physical Exam Appears: Non-toxic, No Acute Distress Cardiovascular: Rhythm Regular Respiratory: Normal Breath Sounds Gastrointestinal/Abdominal: Normal Exam, Soft, No Tenderness ED Course And Treatment O2 Sat by Pulse Oximetry: 98 (RA) Pulse Ox Interpretation: Normal Disposition Counseled Patient/Family Regarding: Diagnosis - Disposition Referrals: [facility] [Outside] Disposition: HOME/ ROUTINE Disposition Time: 05:52 Condition: STABLE Instructions: Alcohol Abuse and Alcoholism (DC) Forms: [facility] (Gabonese) - POA Present On Arrival: None - Clinical Impression Clinical Impression: Alcohol abuse with intoxication - Scribe Statement The provider has reviewed the documentation as recorded by the Scribe (Jewel Schaeffer) Provider Attestation: All medical record entries made by the Scribe were at my direction and personally dictated by me. I have reviewed the chart and agree that the record accurately reflects my personal performance of the history, physical exam, medical decision making, and the department course for this patient. I have also personally directed, reviewed, and agree with the discharge instructions and disposition.
[2018-02-26 04:16] VITALS: RESP 14
[2018-02-26 05:53] VITALS: O2SAT 98
[2018-02-26 05:57] VITALS: BP 130/80; PULSE 80
== END 2018-02-26 05:58 | disposition home or self-care (01) ==
LOC: C.ER 21:37
DX: F10.129 Alcohol abuse with intoxication, unspecified (principal); Y90.9 Presence of alcohol in blood, level not specified

== ENCOUNTER 2018-02-26 21:22 | Emergency (ER) | payer MEDICAID ==
[2018-02-26 21:22] VITALS: BMI 29.7
--- NOTE | 2018-02-26 22:51 | C.PDOC ---
Time Seen by Provider: 02/26/18 22:50 Chief Complaint (Nursing): Substance Abuse Past Medical History Vital Signs: Last Vital Signs Temp 98 F 02/26/18 21:55 Pulse 93 H 02/26/18 21:55 Resp 16 02/26/18 21:55 BP 124/83 02/26/18 21:55 Pulse Ox 98 02/26/18 21:55 - Medical History PMH: Anxiety, Arthritis, Bronchitis, CAD, Depression, Diabetes (Pt. did not disclose to advertising copy writer, not aware), Fractures (RIGHT ARM), Gastritis, Gall Bladder Disease (s/p cholecystectomy), HTN, Post Traumatic Stress Disorder, Rheumatoid Arthritis, Seizures, Chronic Pain Denies: Chronic Kidney Disease Surgical History: Cholecystectomy - [facility] Procedures ALCOHOL DETOXIFICATION (07/04/15) APPLICATION OF SPLINT (03/20/13) CLOSURE SKIN & SUBCUTANEOUS NEC (08/14/13) DETOXIFICATION SERVICES FOR SUBSTANCE ABUSE TREATMENT (03/22/16) ESOPHAGOGASTRODUODENOSCOPY [EGD] W/CLOSED BIOPSY (02/16/15) OTHER GROUP THERAPY (03/12/13) PHYSICAL THERAPY NEC (07/04/15) TETANUS TOXOID ADMINIST (01/19/14) Family History: States: Unknown Family Hx - Social History Hx Tobacco Use: No Hx Alcohol Use: Yes Hx Substance Use: No - Immunization History Hx Tetanus Toxoid Vaccination: No Hx Influenza Vaccination: No Hx Pneumococcal Vaccination: No ED Course And Treatment O2 Sat by Pulse Oximetry: 98 Disposition Counseled Patient/Family Regarding: Studies Performed, Diagnosis, Need For Followup - Disposition Disposition: HOME/ ROUTINE Disposition Time: 22:50 Condition: FAIR Instructions: Alcohol Abuse and Alcoholism (DC) - Clinical Impression Clinical Impression: Alcohol abuse with intoxication
[2018-02-27 05:05] VITALS: BP 110/70; PULSE 94; RESP 18; TEMP 97.6; O2SAT 97
== END 2018-02-27 05:05 | disposition home or self-care (01) ==
LOC: C.ER 21:22
DX: F10.129 Alcohol abuse with intoxication, unspecified (principal); Y90.9 Presence of alcohol in blood, level not specified

== ENCOUNTER 2018-02-27 21:24 | Emergency (ER) | payer MEDICAID ==
[2018-02-27 21:24] VITALS: BMI 29.7
--- NOTE | 2018-02-27 21:40 | C.PDOC ---
History Of Present Illness The patient presents to the ED for evaluation of public alcohol intoxication for an unknown duration. Patient is familiar to the ED and has had many prior evaluations for similar presentations. Patient admits to drinking earlier today and denies suicidal/homicidal ideation at this time. Time Seen by Provider: 02/27/18 21:38 Chief Complaint (Nursing): Substance Abuse History Per: Patient History/Exam Limitations: intoxication Onset/Duration Of Symptoms: Unknown Current Symptoms Are (Timing): Still Present Suicide/Self Injury Attempted (Context): None Modifying Factor(s): Alcohol Severity: None Pain Scale Rating Of: 0 Associated Symptoms: denies: Suicidal Thoughts, Suicidal Plan Involuntary Hold By: None Recent travel outside of the [place]: No Additional History Per: Patient Past Medical History Reviewed: Historical Data, Nursing Documentation, Vital Signs Vital Signs: Last Vital Signs Temp 98.3 F 02/27/18 21:35 Pulse 98 H 02/27/18 21:35 Resp 20 02/27/18 21:35 BP 130/81 02/27/18 21:35 Pulse Ox 96 02/27/18 21:35 - Medical History PMH: Anxiety, Arthritis, Bronchitis, CAD, Depression, Diabetes (Pt. 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, not aware), Fractures (RIGHT ARM), Gastritis, Gall Bladder Disease (s/p cholecystectomy), HTN, Post Traumatic Stress Disorder, Rheumatoid Arthritis, Seizures, Chronic Pain Surgical History: Cholecystectomy - [facility] Procedures ALCOHOL DETOXIFICATION (07/04/15) APPLICATION OF SPLINT (03/20/13) CLOSURE SKIN & SUBCUTANEOUS NEC (08/14/13) DETOXIFICATION SERVICES FOR SUBSTANCE ABUSE TREATMENT (03/22/16) ESOPHAGOGASTRODUODENOSCOPY [EGD] W/CLOSED BIOPSY (02/16/15) OTHER GROUP THERAPY (03/12/13) PHYSICAL THERAPY NEC (07/04/15) TETANUS TOXOID ADMINIST (01/19/14) Family History: States: Unknown Family Hx - Social History Hx Tobacco Use: No Hx Alcohol Use: Yes Hx Substance Use: No - Immunization History Hx Tetanus Toxoid Vaccination: No Hx Influenza Vaccination: No Hx Pneumococcal Vaccination: No Review Of Systems Constitutional: Negative for: Fever, Chills Cardiovascular: Negative for: Chest Pain, Palpitations Respiratory: Negative for: Cough, Shortness of Breath Gastrointestinal: Negative for: Vomiting, Abdominal Pain Skin: Negative for: Rash, Lesions, Jaundice, Bruising Psych: Positive for: Other (EtOH intoxication ). Negative for: Suicidal ideation Physical Exam - Physical Exam Appears: Non-toxic, No Acute Distress, Other (visibly intoxicated ) Skin: Normal Color, Warm, Dry Head: Atraumatic Eye(s): bilateral: Normal Inspection Oral Mucosa: Moist, Other (alcohol on breath ) Neck: Supple Chest: Symmetrical Cardiovascular: Rhythm Regular Respiratory: No Accessory Muscle Use, No Rales, No Rhonchi, No Wheezing Extremity: Normal ROM, Capillary Refill (less than 2 seconds ) Neurological/Psych: Oriented x3 ED Course And Treatment O2 Sat by Pulse Oximetry: 96 (on RA) Pulse Ox Interpretation: Normal Disposition Counseled Patient/Family Regarding: Studies Performed, Diagnosis, Need For Followup - Disposition Referrals: [facility] [Outside] Disposition: HOME/ ROUTINE Disposition Time: 21:39 Condition: FAIR Instructions: Alcohol Abuse and Alcoholism (DC) Forms: [facility] (South Korean) - Clinical Impression Clinical Impression: Alcoholism /alcohol abuse, Alcohol intoxication - Scribe Statement The provider has reviewed the documentation as recorded by the Scribe (Krai Fajardo) Provider Attestation: All medical record entries made by the Scribe were at my direction and personally dictated by me. I have reviewed the chart and agree that the record accurately reflects my personal performance of the history, physical exam, medical decision making, and the department course for this patient. I have also personally directed, reviewed, and agree with the discharge instructions and disposition.
[2018-02-27 21:45] VITALS: TEMP 98.3; O2SAT 96
[2018-02-28 03:34] VITALS: RESP 19
[2018-02-28 05:26] VITALS: BP 105/77; PULSE 94
== END 2018-02-28 05:26 | disposition home or self-care (01) ==
LOC: C.ER 21:24
DX: F10.229 Alcohol dependence with intoxication, unspecified (principal)

== ENCOUNTER 2018-05-27 20:59 | Emergency (ER) | payer MEDICAID ==
[2018-05-27 20:59] VITALS: BMI 29.7
--- NOTE | 2018-05-27 21:34 | C.PDOC ---
History Of Present Illness Patient presents to the ER with a complaint of SOB. He is currently speaking in complete sentences. Denies ETOH use, chest pain, or palpitations. Time Seen by Provider: 05/27/18 21:25 Chief Complaint (Nursing): Shortness Of Breath History Per: Patient History/Exam Limitations: no limitations Onset/Duration Of Symptoms: Hrs Current Symptoms Are (Timing): Still Present Initiating Event: Other (Not known) Current Respiratory Medications: See Home Med List Severity: Moderate Pain Scale Rating Of: 4 Associated Symptoms: denies: Chest Pain, Other (Palpitations) Recent travel outside of the [place]: No Past Medical History Reviewed: Historical Data, Nursing Documentation, Vital Signs Vital Signs: Last Vital Signs Temp 98.7 F 05/27/18 21:09 Pulse 92 H 05/28/18 00:43 Resp 18 05/28/18 00:43 BP 126/78 05/28/18 00:43 Pulse Ox 97 05/28/18 00:43 - Medical History PMH: Anxiety, Arthritis, Bronchitis, CAD, Depression, Diabetes (Pt. did not disclose to expert medical writer, not aware), Fractures (RIGHT ARM), Gastritis, Gall Bladder Disease (s/p cholecystectomy), HTN, Post Traumatic Stress Disorder, Rheumatoid Arthritis, Seizures, Chronic Pain Denies: Chronic Kidney Disease Surgical History: Cholecystectomy - [facility] Procedures ALCOHOL DETOXIFICATION (07/04/15) APPLICATION OF SPLINT (03/20/13) CLOSURE SKIN & SUBCUTANEOUS NEC (08/14/13) DETOXIFICATION SERVICES FOR SUBSTANCE ABUSE TREATMENT (03/22/16) ESOPHAGOGASTRODUODENOSCOPY [EGD] W/CLOSED BIOPSY (02/16/15) OTHER GROUP THERAPY (03/12/13) PHYSICAL THERAPY NEC (07/04/15) TETANUS TOXOID ADMINIST (01/19/14) Family History: States: No Known Family Hx - Social History Hx Tobacco Use: No Hx Alcohol Use: Yes Hx Substance Use: No - Immunization History Hx Tetanus Toxoid Vaccination: No Hx Influenza Vaccination: No Hx Pneumococcal Vaccination: No Review Of Systems Constitutional: Negative for: Fever, Chills Cardiovascular: Negative for: Chest Pain, Palpitations Respiratory: Positive for: Shortness of Breath Gastrointestinal: Negative for: Nausea, Vomiting Neurological: Negative for: Weakness, Numbness Physical Exam - Physical Exam Appears: Non-toxic Skin: Warm, Dry Head: Normacephalic Oral Mucosa: Moist Chest: Symmetrical, No Tenderness Cardiovascular: Rhythm Regular Respiratory: No Rales, Rhonchi (Scattered at the bases), No Wheezing Gastrointestinal/Abdominal: Soft, No Tenderness Neurological/Psych: Oriented x3 ED Course And Treatment - Laboratory Results Result Diagrams: 05/27/18 22:23 05/27/18 22:23 ECG: Interpreted By Me, Viewed By Me ECG Rhythm: Sinus Rhythm (79), Nonspecific Changes O2 Sat by Pulse Oximetry: 97 (Room air) Pulse Ox Interpretation: Normal - Radiology CXR: Interpreted by Me, Viewed By Me CXR Interpretation: Yes: Other (unchanged from 01/13/18). No: Infiltrates, Fracture, Pnemothorax Progress Note: EKG, blood work, CXR, and urinalysis ordered. Duoneb administered. patient resting comfortably. vitals stable, no complaints Disposition Counseled Patient/Family Regarding: Studies Performed, Diagnosis, Need For Followup - Disposition Referrals: [facility] [Outside] [facility] [Outside] Disposition: HOME/ ROUTINE Disposition Time: 21:29 Condition: FAIR Additional Instructions: Please return if symptoms recur Instructions: Shortness of Breath (Dyspnea) (DC) Forms: [facility] ([place]er) - Clinical Impression Clinical Impression: Dyspnea - Scribe Statement The provider has reviewed the documentation as recorded by the Scribjosé miguel Ramirez All medical record entries made by the Scribe were at my direction and personally dictated by me. I have reviewed the chart and agree that the record accurately reflects my personal performance of the history, physical exam, medical decision making, and the department course for this patient. I have also personally directed, reviewed, and agree with the discharge instructions and disposition.
[2018-05-27] MEDS: Albuterol-Ipratrop 3 mg / 0.5 (3 ml) UD IH SCH ×3 (22:00→22:27)
[2018-05-27] MEDS ORDERED: Albuterol-Ipratrop 3 mg / 0.5 (3 ml) UD ONE (22:06)
[2018-05-27 22:17] LABS: ABG ALLEN TEST POS; ARTERIAL BLOOD GAS HCO3 24.6 mmol/L (21-28); ARTERIAL BLOOD GAS O2 SAT 100.7 % (95-98); ARTERIAL BLOOD GAS PCO2 34 mm/Hg (35-45); ARTERIAL BLOOD GAS PH 7.44 (7.35-7.45); ARTERIAL BLOOD GAS PO2 257 mm/Hg (80-100); ARTERIAL BLOOD GAS TCO2 24.1 mmol/L (22-28)
[2018-05-27 22:26] LABS: BASO % 0.4 % (0.0-2.0); EOS # 0.1 K/uL (0.0-0.7); EOS % 2.1 % (0.0-4.0); LYMPH # 1.4 K/uL (1.0-4.3); LYMPH % 29.6 % (20.0-40.0); MEAN CORPUSCULAR HEMOGLOBIN 32.4 pg (27.0-31.0); MEAN CORPUSCULAR HGB CONC 34.8 g/dL (33.0-37.0); MEAN PLATELET VOLUME 8.4 fL (7.2-11.7); MONO # 0.6 K/uL (0.0-0.8); MONO % 13.3 % (0.0-10.0); NEUT # 2.6 K/uL (1.8-7.0); NEUT % 54.6 % (50.0-75.0); RBC 3.11 Mil/uL (4.40-5.90); RED CELL DISTRIBUTION WIDTH 15.5 % (11.5-14.5); WHITE BLOOD COUNT 4.8 K/uL (4.8-10.8)
[2018-05-27 22:33] LABS: INR 1.3; PROTHROMBIN TIME 14.5 SECONDS (9.7-12.2)
[2018-05-27 22:37] LABS: HEMOGLOBIN 10.1 g/dL (12.0-18.0); MEAN CELL VOLUME 93.2 fL (80.0-94.0)
[2018-05-27 22:42] LABS: ALB/GLOB RATIO 0.9 (1.0-2.1); ALT/SGPT 23 U/L (21-72); AST/SGOT 33 U/L (17-59); BLOOD UREA NITROGEN 20 mg/dL (9-20); CALCIUM 10.1 mg/dl (8.6-10.4); GFR AFRICAN-AMERICAN > 60; GFR NON-AFRICAN AMERICAN > 60
[2018-05-27 22:52] LABS: B-TYPE NATRIURETIC PEPTIDE 109 pg/mL (0-900)
[2018-05-28 00:44] VITALS: RESP 18; O2SAT 97
[2018-05-28 06:24] VITALS: BP 126/78; PULSE 88; TEMP 98.8
--- NOTE | 2018-05-28 07:16 | RAD ---
Date of service: 05/27/2018 PROCEDURE: CHEST RADIOGRAPH, 1 VIEW HISTORY: SOB COMPARISON: Portable chest 01/13/2018. FINDINGS: LUNGS: No acute pulmonary disease appreciated bilaterally. PLEURA: No pneumothorax or pleural fluid seen. CARDIOVASCULAR: Normal. OSSEOUS STRUCTURES: No significant abnormalities. VISUALIZED UPPER ABDOMEN: Stable right hemidiaphragm elevation appreciated. OTHER FINDINGS: None. IMPRESSION: No interval acute cardiopulmonary disease appreciated. Mild right hemidiaphragm elevation reiterated.
--- NOTE | 2018-05-28 15:19 | CARD ---
APPROVED REPORT Date of service: 05/27/2018 EKG Measurement Heart [id number] <Conclusion> Normal sinus rhythm Normal ECG
== END 2018-05-28 06:30 | disposition home or self-care (01) ==
LOC: C.ER 20:59 → SUPCPDRO 20:59 → C.ER 05-28 06:30
DX: R06.00 Dyspnea, unspecified (principal); I25.10 Atherosclerotic heart disease of native coronary artery without angina pectoris; I10 Essential (primary) hypertension

== ENCOUNTER 2018-06-02 23:20 | Emergency (ER) | payer MEDICAID ==
[2018-06-02 23:21] VITALS: BMI 29.7
[2018-06-02 23:29] VITALS: RESP 18; O2SAT 97
--- NOTE | 2018-06-02 23:57 | C.PDOC ---
History Of Present Illness 57 y/o male brought in by ambulance after being found intoxicated in public. Denies any physical complaints at this time. Time Seen by Provider: 06/02/18 23:55 Chief Complaint (Nursing): Substance Abuse History Per: Patient, EMS History/Exam Limitations: no limitations Onset/Duration Of Symptoms: Hrs Current Symptoms Are (Timing): Still Present Suicide/Self Injury Attempted (Context): None Modifying Factor(s): Alcohol Severity: None Pain Scale Rating Of: 0 Involuntary Hold By: None Recent travel outside of the [place]: No Additional History Per: EMS Past Medical History Vital Signs: Last Vital Signs Temp 98.1 F 06/03/18 04:23 Pulse 84 06/03/18 04:23 Resp 18 06/03/18 04:23 BP 115/75 06/03/18 04:23 Pulse Ox 97 06/03/18 04:23 - Medical History PMH: Anxiety, Arthritis, Bronchitis, CAD, Depression, Diabetes (Pt. 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 not disclose to jingle writer, not aware), Fractures (RIGHT ARM), Gastritis, Gall Bladder Disease (s/p cholecystectomy), HTN, Post Traumatic Stress Disorder, Rheumatoid Arthritis, Seizures, Chronic Pain Denies: Chronic Kidney Disease Surgical History: Cholecystectomy - [facility] Procedures ALCOHOL DETOXIFICATION (07/04/15) APPLICATION OF SPLINT (03/20/13) CLOSURE SKIN & SUBCUTANEOUS NEC (08/14/13) DETOXIFICATION SERVICES FOR SUBSTANCE ABUSE TREATMENT (03/22/16) ESOPHAGOGASTRODUODENOSCOPY [EGD] W/CLOSED BIOPSY (02/16/15) OTHER GROUP THERAPY (03/12/13) PHYSICAL THERAPY NEC (07/04/15) TETANUS TOXOID ADMINIST (01/19/14) Family History: States: No Known Family Hx - Social History Hx Tobacco Use: No Hx Alcohol Use: Yes Hx Substance Use: No - Immunization History Hx Tetanus Toxoid Vaccination: No Hx Influenza Vaccination: No Hx Pneumococcal Vaccination: No Review Of Systems Constitutional: Negative for: Fever, Chills Cardiovascular: Negative for: Chest Pain, Palpitations Respiratory: Negative for: Shortness of Breath Gastrointestinal: Negative for: Nausea, Vomiting, Diarrhea Neurological: Negative for: Weakness, Numbness Physical Exam - Physical Exam Appears: Non-toxic, Other (EtOH on breath, no sign of injury) Skin: Warm, Dry Head: Normacephalic Eye(s): bilateral: Normal Inspection Oral Mucosa: Moist Neck: Trachea Midline, Supple Chest: Symmetrical, No Tenderness Cardiovascular: Rhythm Regular Respiratory: No Rales, No Rhonchi, No Wheezing Gastrointestinal/Abdominal: Soft, No Tenderness, Other (Peg tube in place) Neurological/Psych: Oriented x3 ED Course And Treatment O2 Sat by Pulse Oximetry: 97 (Room air) Pulse Ox Interpretation: Normal Reevaluation Time: 05:03 Reassessment Condition: Improved Disposition Counseled Patient/Family Regarding: Studies Performed, Diagnosis, Need For Followup - Disposition Referrals: [facility] [Outside] Disposition: HOME/ ROUTINE Disposition Time: 23:56 Condition: FAIR Instructions: Alcohol Abuse and Alcoholism (DC) Forms: [facility] (Welsh) - Clinical Impression Clinical Impression: Alcoholism /alcohol abuse - Scribe Statement The provider has reviewed the documentation as recorded by the Jada Bullock Provider Attestation: All medical record entries made by the Rominaibjosé miguel were at my direction and personally dictated by me. I have reviewed the chart and agree that the record accurately reflects my personal performance of the history, physical exam, medical decision making, and the department course for this patient. I have also personally directed, reviewed, and agree with the discharge instructions and disposition.
[2018-06-03 04:25] VITALS: BP 115/75; PULSE 84; TEMP 98.1
== END 2018-06-03 05:34 | disposition home or self-care (01) ==
LOC: SUPCPDRO 23:20 → C.ER 23:20
DX: F10.20 Alcohol dependence, uncomplicated (principal); E11.9 Type 2 diabetes mellitus without complications; I25.10 Atherosclerotic heart disease of native coronary artery without angina pectoris

== ENCOUNTER 2018-06-04 00:31 | Emergency (ER) | payer MEDICAID ==
[2018-06-04 00:32] VITALS: BMI 29.7
--- NOTE | 2018-06-04 00:37 | C.PDOC ---
History Of Present Illness Patient presents to the ER via EMS after being found intoxicated. Denies physical complaints at this time. Time Seen by Provider: 06/04/18 00:36 History Per: Patient, EMS History/Exam Limitations: no limitations Onset/Duration Of Symptoms: Hrs Current Symptoms Are (Timing): Still Present Suicide/Self Injury Attempted (Context): None Modifying Factor(s): Alcohol Severity: None Pain Scale Rating Of: 0 Associated Symptoms: denies: Depression, Suicidal Thoughts Involuntary Hold By: None Recent travel outside of the [place]: No Past Medical History Reviewed: Historical Data, Nursing Documentation, Vital Signs Vital Signs: Last Vital Signs Temp 97.5 F L 06/04/18 04:40 Pulse 74 06/04/18 04:40 Resp 20 06/04/18 04:40 BP 93/57 L 06/04/18 04:40 Pulse Ox 98 06/04/18 04:40 - Medical History PMH: Anxiety, Arthritis, Bronchitis, CAD, Depression, Diabetes (Pt. did not disclose to mortgage underwriter, not aware), Fractures (RIGHT ARM), Gastritis, Gall Bladder Disease (s/p cholecystectomy), HTN, Post Traumatic Stress Disorder, Rheumatoid Arthritis, Seizures, Chronic Pain Denies: Chronic Kidney Disease Surgical History: Cholecystectomy - [facility] Procedures ALCOHOL DETOXIFICATION (07/04/15) APPLICATION OF SPLINT (03/20/13) CLOSURE SKIN & SUBCUTANEOUS NEC (08/14/13) DETOXIFICATION SERVICES FOR SUBSTANCE ABUSE TREATMENT (03/22/16) ESOPHAGOGASTRODUODENOSCOPY [EGD] W/CLOSED BIOPSY (02/16/15) OTHER GROUP THERAPY (03/12/13) PHYSICAL THERAPY NEC (07/04/15) TETANUS TOXOID ADMINIST (01/19/14) Family History: States: No Known Family Hx - Social History Hx Tobacco Use: No Hx Alcohol Use: Yes Hx Substance Use: No - Immunization History Hx Tetanus Toxoid Vaccination: No Hx Influenza Vaccination: No Hx Pneumococcal Vaccination: No Review Of Systems Constitutional: Negative for: Fever, Chills Cardiovascular: Negative for: Chest Pain, Palpitations Respiratory: Negative for: Cough, Shortness of Breath Gastrointestinal: Negative for: Nausea, Vomiting Physical Exam - Physical Exam Appears: Non-toxic, Other (ETOH on breath, no sign of injury) Skin: Warm, Dry Head: Normacephalic Oral Mucosa: Moist Chest: Symmetrical, No Tenderness Cardiovascular: Rhythm Regular Respiratory: No Rales, No Rhonchi, No Wheezing Gastrointestinal/Abdominal: Soft, No Tenderness Neurological/Psych: Oriented x3 ED Course And Treatment O2 Sat by Pulse Oximetry: 98 Pulse Ox Interpretation: Normal Reevaluation Time: 05:55 Reassessment Condition: Improved Disposition Counseled Patient/Family Regarding: Studies Performed, Diagnosis, Need For Followup - Disposition Referrals: [facility] [Outside] Disposition: HOME/ ROUTINE Disposition Time: 00:37 Condition: FAIR Instructions: Alcohol Abuse and Alcoholism (DC) - Clinical Impression Clinical Impression: Alcoholism /alcohol abuse, Alcohol intoxication - Scribe Statement The provider has reviewed the documentation as recorded by the Scribe Fabián Ramirez All medical record entries made by the Scribe were at my direction and personally dictated by me. I have reviewed the chart and agree that the record accurately reflects my personal performance of the history, physical exam, medical decision making, and the department course for this patient. I have also personally directed, reviewed, and agree with the discharge instructions and disposition.
[2018-06-04 00:50] VITALS: RESP 20
[2018-06-04 04:42] VITALS: BP 93/57; PULSE 74; TEMP 97.5; O2SAT 98
== END 2018-06-04 06:19 | disposition home or self-care (01) ==
LOC: C.ER 00:31
DX: F10.129 Alcohol abuse with intoxication, unspecified (principal)

== ENCOUNTER 2018-06-06 00:28 | Emergency (ER) | payer MEDICAID ==
[2018-06-06 00:28] VITALS: BMI 29.7
[2018-06-06 00:45] VITALS: RESP 20
--- NOTE | 2018-06-06 00:59 | C.PDOC ---
History Of Present Illness 57 year old male is brought to the ED by EMS for alcohol intoxication. Patient was found laying in a bench. Patient admits to drinking alcohol today and states he needs a pace to stay. Patient denies SI/HI, hallucinations, trauma, CP , SOB. Chief Complaint (Nursing): Substance Abuse History Per: Patient, EMS History/Exam Limitations: intoxication Onset/Duration Of Symptoms: Hrs Current Symptoms Are (Timing): Still Present Suicide/Self Injury Attempted (Context): None Modifying Factor(s): Alcohol Associated Symptoms: denies: Depression, Suicidal Thoughts, Suicidal Plan Involuntary Hold By: None Recent travel outside of the [place]: No Additional History Per: Patient Past Medical History Reviewed: Historical Data, Nursing Documentation, Vital Signs Vital Signs: Last Vital Signs Temp 97.6 F 06/06/18 05:31 Pulse 81 06/06/18 05:31 Resp 20 06/06/18 05:31 BP 132/77 06/06/18 05:31 Pulse Ox 98 06/06/18 05:31 - Medical History PMH: Anxiety, Arthritis, Bronchitis, CAD, Depression, Diabetes (Pt. 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 aware), Fractures (RIGHT ARM), Gastritis, Gall Bladder Disease (s/p cholecystectomy), HTN, Post Traumatic Stress Disorder, Rheumatoid Arthritis, Seizures, Chronic Pain Denies: Chronic Kidney Disease Surgical History: Cholecystectomy - [facility] Procedures ALCOHOL DETOXIFICATION (07/04/15) APPLICATION OF SPLINT (03/20/13) CLOSURE SKIN & SUBCUTANEOUS NEC (08/14/13) DETOXIFICATION SERVICES FOR SUBSTANCE ABUSE TREATMENT (03/22/16) ESOPHAGOGASTRODUODENOSCOPY [EGD] W/CLOSED BIOPSY (02/16/15) OTHER GROUP THERAPY (03/12/13) PHYSICAL THERAPY NEC (07/04/15) TETANUS TOXOID ADMINIST (01/19/14) Family History: States: Unknown Family Hx - Social History Hx Tobacco Use: No Hx Alcohol Use: Yes Hx Substance Use: No - Immunization History Hx Tetanus Toxoid Vaccination: No Hx Influenza Vaccination: No Hx Pneumococcal Vaccination: No Review Of Systems Constitutional: Negative for: Fever, Chills Cardiovascular: Negative for: Chest Pain Respiratory: Negative for: Shortness of Breath Gastrointestinal: Negative for: Nausea, Vomiting Skin: Negative for: Rash Psych: Negative for: Depression, Suicidal ideation Physical Exam - Physical Exam Appears: Non-toxic, No Acute Distress, Other (AOB) Skin: Normal Color, Warm, Dry Head: Atraumatic, Normacephalic Eye(s): bilateral: Normal Inspection Neck: Normal ROM, Supple Chest: Symmetrical Cardiovascular: Rhythm Regular Respiratory: Normal Breath Sounds, No Rales, No Rhonchi, No Wheezing Gastrointestinal/Abdominal: Soft, No Tenderness, No Guarding, No Rebound Extremity: Normal ROM, No Tenderness, No Swelling Neurological/Psych: Oriented x3, Normal Speech Gait: Steady ED Course And Treatment O2 Sat by Pulse Oximetry: 97 (ON RA) Pulse Ox Interpretation: Normal Disposition Counseled Patient/Family Regarding: Diagnosis - Disposition Referrals: Fabián Huang MD [Primary Care Provider] - Disposition: HOME/ ROUTINE Disposition Time: 05:35 Condition: STABLE Instructions: Alcohol Abuse and Alcoholism (DC) Forms: [facility] ([place]i) - Clinical Impression Clinical Impression: Alcohol intoxication - Scribe Statement The provider has reviewed the documentation as recorded by the Scribe Woo Brown All medical record entries made by the Scribe were at my direction and personally dictated by me. I have reviewed the chart and agree that the record accurately reflects my personal performance of the history, physical exam, medical decision making, and the department course for this patient. I have also personally directed, reviewed, and agree with the discharge instructions and disposition.
[2018-06-06 05:31] VITALS: BP 132/77; PULSE 81; TEMP 97.6
[2018-06-06 05:42] VITALS: O2SAT 97
== END 2018-06-06 05:36 | disposition home or self-care (01) ==
LOC: C.ER 00:28 → SUPCPDRO 00:28 → C.ER 05:36
DX: F10.129 Alcohol abuse with intoxication, unspecified (principal)

== ENCOUNTER 2018-06-06 23:24 | Emergency (ER) | payer MEDICAID ==
[2018-06-06 23:24] VITALS: BMI 29.7
--- NOTE | 2018-06-06 23:47 | C.PDOC ---
History Of Present Illness 57 year old male is brought in to the ED by EMS for intoxication. Patient was seen last night for same thing. Patient has multiple prior visits to the ED for similar presentation. Patient denies SI/HI, hallucinations, CP, SOB, weakness, numbness. Time Seen by Provider: 06/06/18 23:44 History Per: Patient, EMS History/Exam Limitations: intoxication Onset/Duration Of Symptoms: Hrs Current Symptoms Are (Timing): Still Present Suicide/Self Injury Attempted (Context): None Modifying Factor(s): Alcohol Associated Symptoms: denies: Depression, Suicidal Thoughts, Suicidal Plan Recent travel outside of the [place]: No Additional History Per: Patient, EMS Past Medical History Reviewed: Historical Data, Nursing Documentation, Vital Signs Vital Signs: Last Vital Signs Temp 97.1 F L 06/07/18 04:36 Pulse 97 H 06/07/18 04:36 Resp 16 06/07/18 04:36 BP 117/77 06/07/18 04:36 Pulse Ox 99 06/07/18 04:36 - Medical History PMH: Anxiety, Arthritis, Bronchitis, CAD, Depression, Diabetes (Pt. did not disclose to residential mortgage underwriter, not aware), Fractures (RIGHT ARM), Gastritis, Gall Bladder Disease (s/p cholecystectomy), HTN, Post Traumatic Stress Disorder, Rheumatoid Arthritis, Seizures, Chronic Pain Denies: Chronic Kidney Disease Surgical History: Cholecystectomy - [facility] Procedures ALCOHOL DETOXIFICATION (07/04/15) APPLICATION OF SPLINT (03/20/13) CLOSURE SKIN & SUBCUTANEOUS NEC (08/14/13) DETOXIFICATION SERVICES FOR SUBSTANCE ABUSE TREATMENT (03/22/16) ESOPHAGOGASTRODUODENOSCOPY [EGD] W/CLOSED BIOPSY (02/16/15) OTHER GROUP THERAPY (03/12/13) PHYSICAL THERAPY NEC (07/04/15) TETANUS TOXOID ADMINIST (01/19/14) Family History: States: Unknown Family Hx - Social History Hx Tobacco Use: No Hx Alcohol Use: Yes Hx Substance Use: No - Immunization History Hx Tetanus Toxoid Vaccination: No Hx Influenza Vaccination: No Hx Pneumococcal Vaccination: No Review Of Systems Constitutional: Negative for: Fever, Chills Cardiovascular: Negative for: Chest Pain, Palpitations Respiratory: Negative for: Cough, Shortness of Breath Gastrointestinal: Negative for: Nausea, Vomiting, Abdominal Pain Skin: Negative for: Rash Neurological: Negative for: Weakness, Numbness Psych: Negative for: Depression, Suicidal ideation Physical Exam - Physical Exam Appears: Non-toxic, No Acute Distress Skin: Warm, Dry Head: Normacephalic Eye(s): bilateral: Normal Inspection Neck: Supple Chest: Symmetrical Cardiovascular: Rhythm Regular Respiratory: No Rales, No Rhonchi, No Wheezing Gastrointestinal/Abdominal: Soft, No Tenderness, No Guarding, No Rebound, Other (PEG tube left upper abdomen ) Extremity: No Tenderness, No Swelling Extremity: Bilateral: Atraumatic, Normal Color And Temperature, Normal ROM Neurological/Psych: Oriented x3, Normal Speech Gait: Steady ED Course And Treatment O2 Sat by Pulse Oximetry: 95 (ON RA) Pulse Ox Interpretation: Normal Reevaluation Time: 05:01 Reassessment Condition: Improved Disposition Counseled Patient/Family Regarding: Studies Performed, Diagnosis, Need For Followup - Disposition Referrals: [facility] [Outside] Disposition Time: 23:45 Condition: FAIR Instructions: Alcohol Abuse and Alcoholism (DC) - Clinical Impression Clinical Impression: Alcohol intoxication - Scribe Statement The provider has reviewed the documentation as recorded by the Scribe Woo Brown All medical record entries made by the Scribe were at my direction and personally dictated by me. I have reviewed the chart and agree that the record accurately reflects my personal performance of the history, physical exam, medical decision making, and the department course for this patient. I have also personally directed, reviewed, and agree with the discharge instructions and disposition.
[2018-06-07 04:37] VITALS: BP 117/77; PULSE 97; RESP 16; TEMP 97.1
[2018-06-07 05:02] VITALS: O2SAT 95
== END 2018-06-07 06:24 | disposition home or self-care (01) ==
LOC: C.ER 23:24
DX: F10.129 Alcohol abuse with intoxication, unspecified (principal)

== ENCOUNTER 2018-06-08 21:40 | Observation (INO) | payer MEDICAID ==
[2018-06-08 21:41] VITALS: BMI 29.7
--- NOTE | 2018-06-08 22:02 | C.PDOC ---
History Of Present Illness 57 y/o male,, presents the ER complaining of pain at the peg tube site and and pain and LLE swelling .. The patient is a poor historian with slurred speech. He offers no other medical complaints at this time. Manan schulte review why the PEG tube was placed. 57 y/o male, evaluated in the ED 7 times during the month of May for intoxication /similar multiple visits in february and january. Dr. Babcock placed PEG tube. Pt is a heavy alcohol abuser. HX of DVT as well. Time Seen by Provider: 06/08/18 21:57 Chief Complaint (Nursing): Abdominal Pain History Per: Patient History/Exam Limitations: no limitations Onset/Duration Of Symptoms: Hrs Current Symptoms Are (Timing): Still Present Recent travel outside of the [place]: No Past Medical History Reviewed: Historical Data, Nursing Documentation, Vital Signs Vital Signs: Last Vital Signs Temp 98.0 F 06/08/18 21:47 Pulse 84 06/09/18 04:31 Resp 14 06/09/18 04:31 BP 130/80 06/09/18 04:31 Pulse Ox 96 06/09/18 04:31 - Medical History PMH: Anxiety, Arthritis, Bronchitis, CAD, Depression, Diabetes (Pt. did not disclose to policy writer, not aware), Fractures (RIGHT ARM), Gastritis, Gall Bladder Disease (s/p cholecystectomy), HTN, Post Traumatic Stress Disorder, Rheumatoid Arthritis, Seizures, Chronic Pain Denies: Chronic Kidney Disease Surgical History: Cholecystectomy - [facility] Procedures ALCOHOL DETOXIFICATION (07/04/15) APPLICATION OF SPLINT (03/20/13) CLOSURE SKIN & SUBCUTANEOUS NEC (08/14/13) DETOXIFICATION SERVICES FOR SUBSTANCE ABUSE TREATMENT (03/22/16) ESOPHAGOGASTRODUODENOSCOPY [EGD] W/CLOSED BIOPSY (02/16/15) OTHER GROUP THERAPY (03/12/13) PHYSICAL THERAPY NEC (07/04/15) TETANUS TOXOID ADMINIST (01/19/14) Family History: States: Unknown Family Hx - Social History Hx Tobacco Use: No Hx Alcohol Use: Yes Hx Substance Use: No - Immunization History Hx Tetanus Toxoid Vaccination: No Hx Influenza Vaccination: No Hx Pneumococcal Vaccination: No Review Of Systems Except As Marked, All Systems Reviewed And Found Negative. Constitutional: Negative for: Fever Eyes: Negative for: Pain ENT: Negative for: Ear Pain, Ear Discharge Cardiovascular: Negative for: Chest Pain, Palpitations, Orthopnea Respiratory: Negative for: Cough, Shortness of Breath, Hemoptysis, SOB with Excertion, Pleuritic Pain Gastrointestinal: Positive for: Other (pain at peg tube sight ). Negative for: Nausea, Vomiting, Abdominal Pain, Constipation Genitourinary: Negative for: Dysuria Musculoskeletal: Negative for: Neck Pain Neurological: Negative for: Weakness Psych: Negative for: Anxiety Physical Exam - Physical Exam Appears: Well, Non-toxic, No Acute Distress, Unkempt Skin: Normal Color, Warm, Dry Head: Atraumatic, Normacephalic Eye(s): bilateral: Normal Inspection, PERRL, EOMI Ear(s): Bilateral: Normal Nose: Normal Oral Mucosa: Moist Teeth: Other (poor dentition) Chest: Symmetrical Cardiovascular: Rhythm Regular, No Murmur Respiratory: Normal Breath Sounds, No Rales, No Rhonchi, No Wheezing Gastrointestinal/Abdominal: Bowel Sounds, No Tenderness, No Distention Extremity: Left: Other (swollen compared to the right ), Bilateral: Atraumatic, Normal Color And Temperature, Normal ROM Neurological/Psych: Other (slurred speech) ED Course And Treatment - Laboratory Results Result Diagrams: 06/09/18 00:34 06/09/18 00:34 O2 Sat by Pulse Oximetry: 97 (RA) Pulse Ox Interpretation: Normal - CT Scan/US abdomen/pelvis Other Rad Studies (CT/US): Read By Radiologist, Radiology Report Reviewed CT/US Interpretation: FINDINGS: Tubes, lines and devices: A peg tube is present with distal tip in in the stomach. Lower thorax: Mild dependent atelectatic changes in the lungs. ABDOMEN: Liver: Left hepatic lobe 8 mm calcification as seen previously. Gallbladder and bile ducts: Surgically absent gallbladder. Pancreas: Normal. No ductal dilation. Spleen: Normal. No splenomegaly. Adrenals: Normal. No mass. Kidneys and ureters: Normal. No hydronephrosis. Stomach and bowel: Diverticulosis without diverticulitis. Appendix: No evidence of appendicitis. PELVIS: Bladder: Unremarkable as visualized. Reproductive: Unremarkable as visualized. ABDOMEN and PELVIS: Intraperitoneal space: Normal. No free air. No significant fluid collection. Bones/joints: No acute fracture. No dislocation. Soft tissues: Unremarkable. Vasculature: Heavy atherosclerotic calcification of the coronary arteries. Moderate atherosclerotic. calcification of the aorta and branching vessels. Lymph nodes: Normal. No enlarged lymph nodes. IMPRESSION: A peg tube is present with distal tip in in the stomach. Progress Note: 0100- Peg tube seems to be out of place. Will do Abd/pelvis CT Medical Decision Making Medical Decision Making: Impression: 57 y/o male with pain at peg tube site Plan: --CMP --Lipase --CBC --IV Fuids --ABD X-Ray --D-Dimer PEG tube study- PEG tube does not appear to be in proper place 0100- ordered Abd/Pelvis CT with contrast/ no acute findings/ pt needs to be ot evaluated by GI/SUrgery for PEG tube integrity and placement. labs reviewed levonox give for elevtaed d-dimer with swollen Lower extremity. Pt will be placed in observation Hemo- 9.7L WBC- 4.5L Plt Count- 99L other labs reivewed films reviewed ekg reviewed Disposition Counseled Patient/Family Regarding: Diagnosis - Disposition Disposition: HOSPITALIZED Disposition Time: 05:19 Condition: GUARDED - Clinical Impression Clinical Impression: PEG tube malfunction, Elevated d-dimer, Alcohol intoxication, Nausea, Abdominal discomfort, Abdominal wall pain - PA / BALL MACHINE OPERATOR / 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 - Scribe Statement The provider has reviewed the documentation as recorded by the Scribe (Nathalie Carver) All medical record entries made by the Scribe were at my direction and personally dictated by me. I have reviewed the chart and agree that the record accurately reflects my personal performance of the history, physical exam, medical decision making, and the department course for this patient. I have also personally directed, reviewed, and agree with the discharge instructions and disposition.
[2018-06-09] MEDS ORDERED: Iohexol 240 200 ML ONE (00:36)
[2018-06-09 00:38] LABS: BASO % 0.4 % (0.0-2.0); EOS # 0.1 K/uL (0.0-0.7); EOS % 1.9 % (0.0-4.0); HEMOGLOBIN 9.7 g/dL (12.0-18.0); LYMPH # 1.7 K/uL (1.0-4.3); LYMPH % 38.3 % (20.0-40.0); MEAN CELL VOLUME 95.3 fL (80.0-94.0); MEAN CORPUSCULAR HEMOGLOBIN 33.1 pg (27.0-31.0); MEAN CORPUSCULAR HGB CONC 34.7 g/dL (33.0-37.0); MEAN PLATELET VOLUME 7.3 fL (7.2-11.7); MONO # 0.5 K/uL (0.0-0.8); MONO % 10.5 % (0.0-10.0); NEUT # 2.2 K/uL (1.8-7.0); NEUT % 48.9 % (50.0-75.0); NRBC % 0.3 % (0.0-2.0); RBC 2.93 Mil/uL (4.40-5.90); RED CELL DISTRIBUTION WIDTH 15.4 % (11.5-14.5); WHITE BLOOD COUNT 4.5 K/uL (4.8-10.8)
[2018-06-09 01:24] LABS: ALB/GLOB RATIO 0.8 (1.0-2.1); ALBUMIN 3.7 g/dL (3.5-5.0); ALT/SGPT 20 U/L (21-72); AST/SGOT 40 U/L (17-59); BLOOD UREA NITROGEN 13 mg/dL (9-20); CALCIUM 8.8 mg/dl (8.6-10.4); GFR NON-AFRICAN AMERICAN > 60; LIPASE 130 U/L (23-300)
[2018-06-09] MEDS ORDERED: Iodixanol 320 MG/ML 100 ML BOTTLE IV ONE (01:40)
[2018-06-09] MEDS ORDERED: Enoxaparin 100 mg Syringe SC STA (03:58)
--- NOTE | 2018-06-09 08:51 | CT ---
Date of service: 06/09/2018 PROCEDURE: CT Abdomen and Pelvis with intravenous contrast HISTORY: Abdominal pain COMPARISON: CT abdomen and pelvis dated 09/27/2015 TECHNIQUE: Multiple contiguous axial images were performed through the abdomen and pelvis with the use of intravenous contrast. Subsequently, sagittal and coronal reformatted images were obtained. Radiation dose: Total exam DLP = 487 mGy-cm. This CT exam was performed using one or more of the following dose reduction techniques: Automated exposure control, adjustment of the mA and/or kV according to patient size, and/or use of iterative reconstruction technique. FINDINGS: LOWER THORAX: Mild dependent atelectatic changes in the lung bases. LIVER: 8 millimeter calcification in the liver again noted. Fatty infiltration of the liver. Mild intrahepatic biliary ductal dilatation. GALLBLADDER AND BILE DUCTS: Surgically absent gallbladder. PANCREAS: Unremarkable. No gross lesion or ductal dilatation. SPLEEN: Unremarkable. Splenule. ADRENALS: Unremarkable. No mass. KIDNEYS AND URETERS: Unremarkable. No hydronephrosis. No solid mass. VASCULATURE: Heavy atherosclerotic calcification of the coronary arteries. Moderate atherosclerotic calcification of the aorta and branching vessels. BOWEL: Colonic diverticulosis. Small hiatal hernia. Mild gastric wall thickening. APPENDIX: Not well visualized. PERITONEUM: Unremarkable. No free fluid. No free air. LYMPH NODES: Unremarkable. No enlarged lymph nodes. BLADDER: Unremarkable. REPRODUCTIVE: Unremarkable. BONES: Degenerative changes in the spine. 2.4 centimeter ovoid area/lesion of central lucency with peripheral sclerosis seen at the medial aspect of the right femoral head. This is of uncertain clinical etiology and may represent focal avascular necrosis versus prominent intraosseous complex ganglia versus subchondral cyst versus etiology. Clinical correlation. OTHER FINDINGS: A PEG tube is present with distal tip in the stomach. IMPRESSION: A PEG tube is present with distal tip in the stomach. 2.4 centimeter ovoid area/lesion of central lucency with peripheral sclerosis seen at the medial aspect of the right femoral head. This is of uncertain clinical etiology and may represent focal avascular necrosis versus prominent intraosseous complex ganglia versus subchondral cyst versus etiology. Clinical correlation. Additional findings as above. These findings were preliminarily reported at 3:16 a.m. on 06/09/[address] Branden Stokes from [employer].
--- NOTE | 2018-06-09 09:18 | CP.PCM.PN ---
Subjective - Date & Time of Evaluation Date of Evaluation: 06/09/18 Time of Evaluation: 07:20 - Subjective Subjective: PGY3 Resident - Medicine Progress Note This 57 year old male with PMHx of ETOH abuse and DVT - presents the ER complaining of pain at the peg tube site and and pain and LLE swelling. The patient is a poor historian with slurred speech. He offers no other medical complaints at this time. Unclea from chart review why the PEG tube was placed. He was evaluated in the ED 7 times during the month of May for intoxication / similar multiple visits in february and january. Patient seen and examined at bedside. No acute distress. No overnight events. Patient states that he had the PEG placed at [facility] several months ago, because he had trouble swallowing at that time. He is unsure if it is permanent or a temporary measure. Overall, patient seems to be a poor historian with a long standing hx of ETOH abuse. He reports mild pain at the PEG site. He also c/o right LE swelling for over one week. Otherwise denies fever, chills, headache, change in vision, chest pain, palpitations, dyspnea, cough, abdominal pain, nausea/vomiting, diarrhea/constipation. 12-point review of systems is otherwise negative without any additional acute complaints. Objective - Vital Signs/Intake and Output Vital Signs (last 24 hours): Temp Pulse Resp BP Pulse Ox 98.0 F 84 14 130/80 96 06/08/18 21:47 06/09/18 04:31 06/09/18 04:31 06/09/18 04:31 06/09/18 06:22 Intake and Output: 06/09/18 06/09/18 06:59 18:59 Output Total 800 Balance -800 - Labs Labs: 06/09/18 00:34 06/09/18 00:34 - Additional Findings Additional findings: - Constitutional Appears: Non-toxic, No Acute Distress - Head Exam Head Exam: ATRAUMATIC, NORMAL INSPECTION - Eye Exam Eye Exam: EOMI, Normal appearance - Respiratory Exam Respiratory Exam: NORMAL BREATHING PATTERN. absent: Rales, Wheezes - Cardiovascular Exam Cardiovascular Exam: Regular Rate, +S1, +S2 - GI/Abdominal Exam GI & Abdominal Exam: Soft, Normal Bowel Sounds. absent: Tenderness - Extremities Exam Extremities Exam: Full ROM, Normal Inspection. absent: Pedal Edema, Tenderness note: Right LE swollen / warm from ankle to knee. negative bah test. - Back Exam Back Exam: NORMAL INSPECTION. absent: CVA tenderness (L), CVA tenderness (R) - Neurological Exam Neurological Exam: Alert, Awake, Oriented x3 note: no asterixis - Psychiatric Exam Psychiatric exam: Normal Affect, Normal Mood - Skin Skin Exam: Dry, Intact, Normal Color, Warm Assessment and Plan - Assessment and Plan (Free Text) Assessment: PEG Tube Malfunction 06/09: GI consult, Dr. Marie, f/u recs patient passed swallow eval. -pt had peg tube placed at [facility] several months ago - Ct abd/pelv w/IV contrast 06/09: A PEG tube is present with distal tip in the stomach. 2.4 centimeter ovoid area/lesion of central lucency with peripheral sclerosis seen at the medial aspect of the right femoral head. This is of uncertain clinical etiology and may represent focal avascular necrosis versus prominent intraosseous complex ganglia versus subchondral cyst versus etiology. see full report. Possible LLE DVT 06/09: f/u b/l LE dopplers -elevated ddimer 247 -mild TTP at R carrero. warm / swollen. Alcohol Intoxication ETOH level 275 CIWA protocol Ativan 1mg IVP Q4H PRN seizure activity Thiamin, B1, MVI starting 06/10 Banana bag at 100cc/hr Anemia Hgb 9.7; MCV 95 no active bleeding. monitor. likely 2/2 excessive ETOH intake Prophylaxis Lovenox 100mg SC once Pepcid 20mg IVP qD Mechanically altered diet. Case discussed with attending. All medical management as per Dr. Marco A Rosales.
--- NOTE | 2018-06-09 11:52 | RAD ---
Abdomen three views History: Peg tube placement. Comparison: None available. Findings: Contrast instilled through a PEG tube. Contrast extending into the stomach and proximal small bowel. Distended loops of small bowel in the upper abdomen. Fecal retention in the colon. Impression: Contrast instilled through a PEG tube. Contrast extending into the stomach and proximal small bowel. Distended loops of small bowel in the upper abdomen. Fecal retention in the colon.
[2018-06-09] MEDS ORDERED: Thiamine 100 mg/ml Inj IV ONE (11:53)
[2018-06-09] MEDS ORDERED: Multivitamin (MVI) 10 ML, Thiamine 100 MG, Folic Acid 1 MG in Sodium Chloride 0.9% 1,00... IV ONE (13:00)
[2018-06-09] MEDS: Enoxaparin 40 mg Syringe SC SCH (13:00)
[2018-06-10 07:11] LABS: BASO % 0.3 % (0.0-2.0); EOS # 0.1 K/uL (0.0-0.7); EOS % 3.8 % (0.0-4.0); HEMOGLOBIN 9.7 g/dL (12.0-18.0); LYMPH # 0.9 K/uL (1.0-4.3); LYMPH % 29.6 % (20.0-40.0); MEAN CELL VOLUME 94.3 fL (80.0-94.0); MEAN CORPUSCULAR HEMOGLOBIN 33.1 pg (27.0-31.0); MEAN CORPUSCULAR HGB CONC 35.1 g/dL (33.0-37.0); MONO # 0.4 K/uL (0.0-0.8); MONO % 14.9 % (0.0-10.0); NEUT # 1.5 K/uL (1.8-7.0); NEUT % 51.4 % (50.0-75.0); NRBC % 0.8 % (0.0-2.0); RBC 2.94 Mil/uL (4.40-5.90); WHITE BLOOD COUNT 2.9 K/uL (4.8-10.8)
[2018-06-10 07:23] LABS: ALBUMIN 3.7 g/dL (3.5-5.0); ALT/SGPT 22 U/L (21-72); AST/SGOT 41 U/L (17-59); BLOOD UREA NITROGEN 7 mg/dL (9-20); CALCIUM 8.8 mg/dl (8.6-10.4); GFR NON-AFRICAN AMERICAN > 60
[2018-06-10] MEDS ORDERED: Lactated Ringer's 1,000 ML IV ONE (09:00)
[2018-06-10] MEDS ORDERED: Propofol 10 mg/ml Inj (20 ML) ONE (09:01)
[2018-06-10] MEDS ORDERED: Midazolam 2 MG/2 ML VIAL ONE (09:03)
[2018-06-10] MEDS ORDERED: Bacitracin 500 Units/gm Oint Foilpak UD ONE (09:18)
[2018-06-10] MEDS ORDERED: Esmolol 100 mg/10ml Inj IV ONE (09:19)
--- NOTE | 2018-06-10 09:46 | CP.PCM.PN ---
Subjective - Date & Time of Evaluation Date of Evaluation: 06/10/18 Time of Evaluation: 07:20 - Subjective Subjective: PGY3 Resident - Medicine Progress Note Patient seen and examined at bedside. No acute distress. Patient is due for PEG assessment and possible replacement with GI today. Currently NPO. He reports continued mild pain at the PEG site. He states his R LE swelling has resolved today. Otherwise denies fever, chills, headache, change in vision, chest pain, palpitations, dyspnea, cough, abdominal pain, nausea/vomiting, diarrhea/ constipation. 12-point review of systems is otherwise negative without any additional acute complaints. Objective - Vital Signs/Intake and Output Vital Signs (last 24 hours): Temp Pulse Resp BP Pulse Ox 97.8 F 89 20 117/81 99 06/10/18 09:26 06/10/18 09:26 06/10/18 09:26 06/10/18 09:26 06/10/18 09:26 Intake and Output: 06/10/18 06/10/18 06:59 18:59 Intake Total 400 Output Total 1300 Balance -900 - Medications Medications: Current Medications Enoxaparin Sodium (Lovenox) 40 mg SC DAILY [facility] Last Admin: 06/09/18 13:00 Dose: 40 mg Famotidine (Pepcid) 20 mg IVP Q24H [facility] Folic Acid (Folic Acid) 1 mg PO DAILY [facility] Metronidazole (Flagyl) 500 mg in 100 mls @ 100 mls/hr IVPB ONCE ONE PRN Reason: Protocol Stop: 06/10/18 10:59 Magnesium Sulfate/Dextrose (Magnesium Sulfate 1 Gm/100 Ml D5w) 1 gm in 100 mls @ 300 mls/hr IVPB Q30M [facility] Stop: 06/10/18 13:49 Lorazepam (Ativan) 1 mg IVP Q4H PRN PRN Reason: Anxiety Multivitamins (Hexavitamin) 1 tab PO DAILY [facility] Potassium Chloride (Potassium Chloride Oral Soln) 20 meq PO Q4H [facility] Stop: 06/10/18 21:01 Thiamine HCl (Vitamin B1 Tab) 100 mg PO DAILY [facility] - Labs Labs: 06/10/18 06:56 06/10/18 06:56 APTT 35 SECONDS (21-34) H 06/10/18 08:17 - Additional Findings Additional findings: - Constitutional Appears: Non-toxic, No Acute Distress - Head Exam Head Exam: ATRAUMATIC, NORMAL INSPECTION - Eye Exam Eye Exam: EOMI, Normal appearance - Respiratory Exam Respiratory Exam: NORMAL BREATHING PATTERN. absent: Rales, Wheezes - Cardiovascular Exam Cardiovascular Exam: Regular Rate, +S1, +S2 - GI/Abdominal Exam GI & Abdominal Exam: Soft, Normal Bowel Sounds. absent: Tenderness - Extremities Exam Extremities Exam: Full ROM, Normal Inspection. absent: Pedal Edema, Tenderness note: Right LE swelling resolved. negative bah test. - Back Exam Back Exam: NORMAL INSPECTION. absent: CVA tenderness (L), CVA tenderness (R) - Neurological Exam Neurological Exam: Alert, Awake, Oriented x3 note: no asterixis - Psychiatric Exam Psychiatric exam: Normal Affect, Normal Mood - Skin Skin Exam: Dry, Intact, Normal Color, Warm Assessment and Plan - Assessment and Plan (Free Text) Assessment: PEG Tube Malfunction 06/10: Patient tolerated endoscopy. PEG is safe to use, although patient passed swallow eval and is tolerating mechanically altered PO diet. Endoscopy 06/10: Grade B reflux, small hiatal hernia, erythematous stomach mucosa, patent G-Tube with surrounding inflammation and erythema. Start using Peg today. see full report. 100cc Free water flushes via PEG tube q8H 06/09: GI consult, Dr. Marie, f/u recs patient passed swallow eval. -CXR 06/10: negative. see full report. -EKG 06/10: NSR with sinus arrhythmia. see full report. -pt had peg tube placed at [facility] several months ago - Ct abd/pelv w/IV contrast 06/09: A PEG tube is present with distal tip in the stomach. 2.4 centimeter ovoid area/lesion of central lucency with peripheral sclerosis seen at the medial aspect of the right femoral head. This is of uncertain clinical etiology and may represent focal avascular necrosis versus prominent intraosseous complex ganglia versus subchondral cyst versus etiology. see full report. Possible LLE DVT 06/09-06/10: b/l LE dopplers negative. -elevated ddimer 247 -mild TTP at R car[place]. warm / swollen. Alcohol Intoxication ETOH level 275 CIWA protocol Ativan 1mg IVP Q4H PRN seizure activity Thiamin, B1, MVI starting 06/10 Banana bag at 100cc/hr Anemia Hgb 9.7; MCV 95 no active bleeding. monitor. likely 2/2 excessive ETOH intake Electrolyte Abnormality -Hypokalemia, K3.3 - KCl 20meq q4H x3 -Hypomagnesemia, Mg1.4 - Mag sulfate x2 Prophylaxis Lovenox 100mg SC once Pepcid 20mg IVP qD Mechanically altered diet. Case discussed with attending. All medical management as per Dr. Marco A Rosales.
[2018-06-10] MEDS ORDERED: MetroNIDAZOLE 500 mg/100 ml IVPB ONE (09:55)
[2018-06-10] MEDS ORDERED: metroNIDAZOLE IV 500 mg/100 ml 500 MG/100 ML BAG IVPB ONE (10:00)
--- NOTE | 2018-06-10 10:17 | RAD ---
HISTORY: GI procedure COMPARISON: Chest x-ray performed 05/27/18 TECHNIQUE: Chest, one view. FINDINGS: Examination limited by habitus and hypoinflation. LUNGS: No focal consolidation. Please note that chest x-ray has limited sensitivity for the detection of pulmonary masses. PLEURA: No significant pleural effusion identified. No definite pneumothorax . CARDIOVASCULAR: Heart size appears top normal in size. Atherosclerotic calcifications of the aorta. OSSEOUS STRUCTURES: Degenerative changes. VISUALIZED UPPER ABDOMEN: Unremarkable. OTHER FINDINGS: None. IMPRESSION: No focal consolidation identified.
[2018-06-10] MEDS: Enoxaparin 40 mg Syringe SC SCH (10:28)
[2018-06-10] MEDS: Multiple Vitamins Tab PO SCH (10:28)
--- NOTE | 2018-06-10 12:07 | VASCLAB ---
Date of service: 06/09/2018 PROCEDURE: Lower Extremity Venous Duplex Exam. HISTORY: Leg swelling PRIORS: None. TECHNIQUE: Bilateral common femoral, femoral, popliteal and posterior tibial, peroneal and great saphenous veins were evaluated. Flow was assessed with color Doppler, compressibility, assessment of phasic flow and augmentation response. Report prepared by CHIDI Arroyo FINDINGS: RIGHT: 1. Common Femoral Vein: 1.1. Compressibility - Fully compressible: Thrombus - None : Flow - Phasic: Augmentation -Normal: Reflux - None. 2. Femoral Vein: 2.1. Compressibility - Fully compressible: Thrombus - None : Flow - Phasic: Augmentation -Normal: Reflux - None. 3. Popliteal Vein: 3.1. Compressibility - Fully compressible: Thrombus - None : Flow - Phasic: Augmentation -Normal: Reflux - None. 4. Posterior Tibial Vein: 4.1. Compressibility - Fully compressible: Thrombus - None: Flow - Phasic: Augmentation -Normal: Reflux - None. 5. Peroneal Vein: 5.1. Compressibility - Fully compressible: Thrombus - None: Flow - Phasic: Augmentation -Normal: Reflux - None. 6. Great Saphenous Vein: 6.1. Compressibility - Fully compressible: Thrombus - None: Flow - Phasic: Augmentation - Normal: Reflux - None. LEFT: 1. Common Femoral Vein: 1.1. Compressibility - Fully compressible: Thrombus - None: Flow - Phasic: Augmentation -Normal: Reflux - None. 2. Femoral Vein: 2.1. Compressibility - Fully compressible: Thrombus - None: Flow - Phasic: Augmentation -Normal: Reflux - None. 3. Popliteal Vein: 3.1. Compressibility - Fully compressible: Thrombus - None : Flow - Phasic: Augmentation -Normal: Reflux - None. 4. Posterior Tibial Vein: 4.1. Compressibility - Fully compressible: Thrombus - None: Flow - Phasic: Augmentation -Normal: Reflux - None. 5. Peroneal Vein: 5.1. Compressibility - Fully compressible: Thrombus - None: Flow - Phasic: Augmentation -Normal: Reflux - None. 6. Great Saphenous Vein: 6.1. Compressibility - Fully compressible: Thrombus - None: Flow - Phasic: Augmentation - Normal: Reflux - None. OTHER FINDINGS: Right: None significant. Left: None significant. IMPRESSION: Right: No evidence of deep or superficial vein thrombosis of the right lower extremity. Normal valve function noted of the right side. Left: No evidence of deep or superficial vein thrombosis of the left lower extremity. Normal valve function noted of the left side.
[2018-06-10] MEDS ORDERED: Potassium Chloride 20 mEq/15 ml LIQ UD PO SCH (13:00)
[2018-06-10] MEDS: Magnesium Sulfate 1 gm in D5W 1 GM/100 ML BAG IVPB SCH ×2 (13:08→13:22)
[2018-06-10] MEDS: Potassium Chloride 20 mEq/15 ml LIQ UD PO SCH ×3 (13:46→21:34)
[2018-06-10 14:59] LABS: INR 1.2; PROTHROMBIN TIME 13.4 SECONDS (9.7-12.2)
--- NOTE | 2018-06-11 00:16 | CARD ---
APPROVED REPORT Date of service: 06/10/2018 EKG Measurement Heart [id number] <Conclusion> Normal sinus rhythm with sinus arrhythmia Normal ECG
--- NOTE | 2018-06-11 07:34 | CP.PCM.PN ---
Subjective - Date & Time of Evaluation Date of Evaluation: 06/11/18 Time of Evaluation: 09:20 - Subjective Subjective: PGY 3 Med Note- Dr. Rosales's service Patient seen and examined in no apparent acute distress. Patient states that he came from the skilled nursing. Patient states that he is able to eat . HE denies subjective fevers, chills, nausea, chest pain at this time. Objective - Vital Signs/Intake and Output Vital Signs (last 24 hours): Temp Pulse Resp BP Pulse Ox 98.3 F 77 20 133/86 97 06/10/18 23:35 06/10/18 23:35 06/10/18 23:35 06/10/18 23:35 06/11/18 03:38 Intake and Output: 06/11/18 06/11/18 06:59 18:59 Intake Total 600 Output Total 1500 Balance -900 - Medications Medications: Current Medications Enoxaparin Sodium (Lovenox) 40 mg SC DAILY [facility] Last Admin: 06/10/18 10:28 Dose: 40 mg Famotidine (Pepcid) 20 mg IVP Q24H [facility] Last Admin: 06/10/18 13:19 Dose: 20 mg Folic Acid (Folic Acid) 1 mg PO DAILY [facility] Last Admin: 06/10/18 10:28 Dose: 1 mg Lorazepam (Ativan) 1 mg IVP Q4H PRN PRN Reason: Anxiety Multivitamins (Hexavitamin) 1 tab PO DAILY [facility] Last Admin: 06/10/18 10:28 Dose: 1 tab Thiamine HCl (Vitamin B1 Tab) 100 mg PO DAILY [facility] Last Admin: 06/10/18 10:28 Dose: 100 mg - Labs Labs: 06/10/18 06:56 06/10/18 06:56 PT 13.4 SECONDS (9.7-12.2) H 06/10/18 14:34 INR 1.2 06/10/18 14:34 APTT 35 SECONDS (21-34) H 06/10/18 08:17 - Constitutional Appears: Non-toxic, Unkempt - Head Exam Head Exam: ATRAUMATIC, NORMAL INSPECTION - Eye Exam Eye Exam: EOMI - ENT Exam ENT Exam: Mucous Membranes Moist - Neck Exam Neck Exam: Full ROM - Respiratory Exam Respiratory Exam: NORMAL BREATHING PATTERN. absent: Wheezes - Cardiovascular Exam Cardiovascular Exam: +S1, +S2, Murmur - GI/Abdominal Exam GI & Abdominal Exam: Soft, Normal Bowel Sounds - Extremities Exam Extremities Exam: Full ROM. absent: Pedal Edema - Back Exam Back Exam: NORMAL INSPECTION - Neurological Exam Neurological Exam: Alert, Awake, Oriented x3 - Psychiatric Exam Psychiatric exam: Flat Affect - Skin Skin Exam: Dry (hyperkeratosis of skin) Assessment and Plan - Assessment and Plan (Free Text) Assessment: PEG Tube Malfunction 06/10: Patient tolerated endoscopy. PEG is safe to use. Of note, patient passed swallow eval and is tolerating mechanically altered PO diet. Endoscopy 06/10: Grade B reflux, small hiatal hernia, erythematous stomach mucosa , patent G-Tube with surrounding inflammation and erythema. Patient may use PEG. See full report. F/U additional GI recommendations 100cc Free water flushes via PEG tube q8H -CXR 06/10: negative. see full report. -EKG 06/10: NSR with sinus arrhythmia. see full report. -pt had peg tube placed at [facility] several months ago - CT abd/pelv w/IV contrast 06/09: A PEG tube is present with distal tip in the stomach. 2.4 centimeter ovoid area/lesion of central lucency with peripheral sclerosis seen at the medial aspect of the right femoral head. This is of uncertain clinical etiology and may represent focal avascular necrosis versus prominent intraosseous complex ganglia versus subchondral cyst versus etiology. see full report. Lower Extremity Swelling Resolved 06/09-06/10: b/l LE dopplers negative. -elevated ddimer 247 Patient uses wheelchair to get around- F/U with PT recommendations Alcohol Intoxication ETOH level 275 on admission CIWA protocol Ativan 1mg IVP Q4H PRN seizure activity Thiamine, B1, multivitamins on board Banana bag at 100cc/hr Cessation counseling Anemia Hgb 9.7; MCV 95 no active bleeding. monitor. likely secondary to excessive ETOH intake Electrolyte Abnormality Repleted. Continue to monitor Prophylaxis Lovenox 40 mg SC daily Pepcid 20mg IVP qD Mechanically altered diet. Dispo- F/U with Case management about patient's placement. Patient states that he came from [facility] in [facility]; however so he told Case Management team that he lives with his brother. Will follow up. Case discussed with attending. All medical management as per Dr. Rosales.
[2018-06-11] MEDS: Multiple Vitamins Tab PO SCH (09:44)
[2018-06-11] MEDS: Enoxaparin 40 mg Syringe SC SCH (09:45)
[2018-06-11 12:03] LABS: BASO % 0.4 % (0.0-2.0); EOS # 0.2 K/uL (0.0-0.7); EOS % 3.4 % (0.0-4.0); HEMOGLOBIN 10.2 g/dL (12.0-18.0); LYMPH # 0.9 K/uL (1.0-4.3); LYMPH % 20.7 % (20.0-40.0); MEAN CELL VOLUME 94.2 fL (80.0-94.0); MEAN CORPUSCULAR HEMOGLOBIN 33.8 pg (27.0-31.0); MEAN CORPUSCULAR HGB CONC 35.9 g/dL (33.0-37.0); MEAN PLATELET VOLUME 8.3 fL (7.2-11.7); MONO # 0.6 K/uL (0.0-0.8); NEUT # 2.7 K/uL (1.8-7.0); NEUT % 61.5 % (50.0-75.0); NRBC % 0.7 % (0.0-2.0); RBC 3.02 Mil/uL (4.40-5.90); WHITE BLOOD COUNT 4.4 K/uL (4.8-10.8)
[2018-06-11 12:18] LABS: ALB/GLOB RATIO 0.8 (1.0-2.1); ALBUMIN 3.7 g/dL (3.5-5.0); ALT/SGPT 16 U/L (21-72); AST/SGOT 44 U/L (17-59); BLOOD UREA NITROGEN 9 mg/dL (9-20); GFR NON-AFRICAN AMERICAN > 60
[2018-06-12 00:28] VITALS: RESP 20
[2018-06-12 07:39] LABS: BASO % 0.3 % (0.0-2.0); EOS # 0.2 K/uL (0.0-0.7); EOS % 3.5 % (0.0-4.0); HEMOGLOBIN 11.1 g/dL (12.0-18.0); LYMPH # 1.1 K/uL (1.0-4.3); LYMPH % 25.3 % (20.0-40.0); MEAN CELL VOLUME 95.3 fL (80.0-94.0); MEAN CORPUSCULAR HEMOGLOBIN 34.2 pg (27.0-31.0); MEAN CORPUSCULAR HGB CONC 35.9 g/dL (33.0-37.0); MEAN PLATELET VOLUME 8.7 fL (7.2-11.7); MONO # 0.7 K/uL (0.0-0.8); MONO % 15.3 % (0.0-10.0); NEUT # 2.5 K/uL (1.8-7.0); NEUT % 55.6 % (50.0-75.0); NRBC % 0.5 % (0.0-2.0); RBC 3.26 Mil/uL (4.40-5.90); RED CELL DISTRIBUTION WIDTH 15.4 % (11.5-14.5); WHITE BLOOD COUNT 4.5 K/uL (4.8-10.8)
[2018-06-12 08:03] LABS: ALB/GLOB RATIO 0.9 (1.0-2.1); ALBUMIN 3.8 g/dL (3.5-5.0); ALT/SGPT 23 U/L (21-72); AST/SGOT 44 U/L (17-59); BLOOD UREA NITROGEN 12 mg/dL (9-20); CALCIUM 9.2 mg/dl (8.6-10.4); GFR NON-AFRICAN AMERICAN > 60
[2018-06-12] MEDS: Multiple Vitamins Tab PO SCH (09:07)
[2018-06-12] MEDS: Enoxaparin 40 mg Syringe SC SCH (09:07)
--- NOTE | 2018-06-12 15:51 | CP.PCM.PN ---
Subjective - Date & Time of Evaluation Date of Evaluation: 06/12/18 Time of Evaluation: 15:51 - Subjective Subjective: Medicine Note for Dr. Rosales's service Patient seen and examined at bedside. He states that he is well. No acute changes in health. States that he would like to return to his brother/sister's house upon discharge. Objective - Vital Signs/Intake and Output Vital Signs (last 24 hours): Temp Pulse Resp BP Pulse Ox 98.5 F 73 20 133/88 99 06/12/18 07:45 06/12/18 07:45 06/12/18 07:45 06/12/18 07:45 06/12/18 07:45 Intake and Output: 06/12/18 06/12/18 06:59 18:59 Intake Total 700 200 Output Total 800 400 Balance -100 -200 - Medications Medications: Current Medications Enoxaparin Sodium (Lovenox) 40 mg SC DAILY [facility] Last Admin: 06/12/18 09:07 Dose: 40 mg Famotidine (Pepcid) 20 mg PO Q24H [facility] Last Admin: 06/12/18 09:04 Dose: 20 mg Folic Acid (Folic Acid) 1 mg PO DAILY [facility] Last Admin: 06/12/18 09:07 Dose: 1 mg Lorazepam (Ativan) 1 mg IVP Q4H PRN PRN Reason: Anxiety Multivitamins (Hexavitamin) 1 tab PO DAILY [facility] Last Admin: 06/12/18 09:07 Dose: 1 tab Thiamine HCl (Vitamin B1 Tab) 100 mg PO DAILY [facility] Last Admin: 06/12/18 09:07 Dose: 100 mg - Labs Labs: 06/12/18 07:25 06/12/18 07:25 PT 13.4 SECONDS (9.7-12.2) H 06/10/18 14:34 INR 1.2 06/10/18 14:34 APTT 35 SECONDS (21-34) H 06/10/18 08:17 - Constitutional Appears: No Acute Distress - Head Exam Head Exam: ATRAUMATIC, NORMOCEPHALIC - Eye Exam Eye Exam: EOMI - ENT Exam ENT Exam: Mucous Membranes Moist - Respiratory Exam Respiratory Exam: Clear to Ausculation Bilateral, NORMAL BREATHING PATTERN - Cardiovascular Exam Cardiovascular Exam: REGULAR RHYTHM - GI/Abdominal Exam GI & Abdominal Exam: Soft. absent: Tenderness - Neurological Exam Neurological Exam: Alert, Awake, Oriented x3 - Psychiatric Exam Psychiatric exam: Normal Affect, Normal Mood Assessment and Plan - Assessment and Plan (Free Text) Plan: PEG Tube Malfunction 06/10: Patient tolerated endoscopy. PEG is safe to use. Of note, patient passed swallow eval and is tolerating mechanically altered PO diet. Endoscopy 06/10: Grade B reflux, small hiatal hernia, erythematous stomach mucosa , patent G-Tube with surrounding inflammation and erythema. Patient may use PEG. See full report. F/U additional GI recommendations 100cc Free water flushes via PEG tube q8H -CXR 06/10: negative. see full report. -EKG 06/10: NSR with sinus arrhythmia. see full report. -pt had peg tube placed at [facility] several months ago - CT abd/pelv w/IV contrast 06/09: A PEG tube is present with distal tip in the stomach. 2.4 centimeter ovoid area/lesion of central lucency with peripheral sclerosis seen at the medial aspect of the right femoral head. This is of uncertain clinical etiology and may represent focal avascular necrosis versus prominent intraosseous complex ganglia versus subchondral cyst versus etiology. see full report. Lower Extremity Swelling Resolved 06/09-06/10: b/l LE dopplers negative. -elevated ddimer 247 Patient uses wheelchair to get around- F/U with PT recommendations Alcohol Intoxication ETOH level 275 on admission [facility] protocol Ativan 1mg IVP Q4H PRN seizure activity Thiamine, B1, multivitamins on board Banana bag at 100cc/hr Cessation counseling Anemia Hgb 11.1 no active bleeding. monitor. likely secondary to excessive ETOH intake Electrolyte Abnormality Repleted. Continue to monitor Prophylaxis Lovenox 40 mg SC daily Pepcid 20mg IVP qD Mechanically altered diet. Dispo- F/U with Case management about patient's placement. Patient states that he would like to live with his brother and sister; he would like to be discharged home. Case discussed with Dr. Rosales All medical management as per Dr. Rosales
[2018-06-13 07:36] LABS: ALB/GLOB RATIO 0.9 (1.0-2.1); ALBUMIN 4.1 g/dL (3.5-5.0); ALT/SGPT 28 U/L (21-72); AST/SGOT 42 U/L (17-59); BASO % 0.5 % (0.0-2.0); BLOOD UREA NITROGEN 14 mg/dL (9-20); CALCIUM 9.5 mg/dl (8.6-10.4); EOS # 0.1 K/uL (0.0-0.7); EOS % 3.2 % (0.0-4.0); GFR NON-AFRICAN AMERICAN > 60; HEMOGLOBIN 11.1 g/dL (12.0-18.0); LYMPH # 1.1 K/uL (1.0-4.3); LYMPH % 24.7 % (20.0-40.0); MEAN CELL VOLUME 96.2 fL (80.0-94.0); MEAN CORPUSCULAR HEMOGLOBIN 34.1 pg (27.0-31.0); MEAN CORPUSCULAR HGB CONC 35.5 g/dL (33.0-37.0); MEAN PLATELET VOLUME 8.6 fL (7.2-11.7); MONO # 0.6 K/uL (0.0-0.8); MONO % 13.4 % (0.0-10.0); NEUT # 2.5 K/uL (1.8-7.0); NEUT % 58.2 % (50.0-75.0); NRBC % 0.2 % (0.0-2.0); RBC 3.26 Mil/uL (4.40-5.90); RED CELL DISTRIBUTION WIDTH 15.9 % (11.5-14.5); WHITE BLOOD COUNT 4.3 K/uL (4.8-10.8)
--- NOTE | 2018-06-13 09:01 | CP.PCM.PN ---
Subjective - Date & Time of Evaluation Date of Evaluation: 06/13/18 Time of Evaluation: 07:40 - Subjective Subjective: Medicine Note for Dr. Rosales's service Patient seen and examined at bedside. He states that he is well. No acute changes in health. States that he would like to return to his brother/sister's house upon discharge. --- Patient is stable for discharge to rehab, pending authorization, per Dr. Rosales. Patient should resume all medications as outlined in this document. No new medications were started on this admission. Your PEG tube was examined and determined to function well. There was mild irritation around the PEG site, however you do not have an infection. You passed your swallow evaluation in the hospital, and are safe to eat food by mouth. You PEG tube will remain in place due to your history of seizures, and may be used if you are ever NPO. Please resume all your home medications and please make an appointment and follow up with your Primary Doctor within one week of discharge. Patient should return to ED immediately if symptoms return or worsen. Instructions discussed with patient who understood and agreed. Objective - Vital Signs/Intake and Output Vital Signs (last 24 hours): Temp Pulse Resp BP Pulse Ox 97.4 F L 82 20 130/80 98 06/13/18 07:10 06/13/18 07:10 06/13/18 07:10 06/13/18 07:10 06/13/18 07:35 Intake and Output: 06/13/18 06/13/18 06:59 18:59 Intake Total 100 Output Total 1200 Balance -1100 - Medications Medications: Current Medications Enoxaparin Sodium (Lovenox) 40 mg SC DAILY [facility] Last Admin: 06/12/18 09:07 Dose: 40 mg Famotidine (Pepcid) 20 mg PO Q24H [facility] Last Admin: 06/13/18 08:45 Dose: 20 mg Folic Acid (Folic Acid) 1 mg PO DAILY [facility] Last Admin: 06/12/18 09:07 Dose: 1 mg Lorazepam (Ativan) 1 mg IVP Q4H PRN PRN Reason: Anxiety Multivitamins (Hexavitamin) 1 tab PO DAILY [facility] Last Admin: 06/12/18 09:07 Dose: 1 tab Thiamine HCl (Vitamin B1 Tab) 100 mg PO DAILY [facility] Last Admin: 06/12/18 09:07 Dose: 100 mg - Labs Labs: 06/13/18 06:54 06/13/18 06:54 PT 13.4 SECONDS (9.7-12.2) H 06/10/18 14:34 INR 1.2 06/10/18 14:34 APTT 35 SECONDS (21-34) H 06/10/18 08:17 - Additional Findings Additional findings: - Constitutional Appears: No Acute Distress - Head Exam Head Exam: ATRAUMATIC, NORMOCEPHALIC - Eye Exam Eye Exam: EOMI - ENT Exam ENT Exam: Mucous Membranes Moist - Respiratory Exam Respiratory Exam: Clear to Ausculation Bilateral, NORMAL BREATHING PATTERN - Cardiovascular Exam Cardiovascular Exam: REGULAR RHYTHM, +S1, +S2 - GI/Abdominal Exam GI & Abdominal Exam: Soft. absent: Tenderness - Neurological Exam Neurological Exam: Alert, Awake, Oriented x3 - Psychiatric Exam Psychiatric exam: Normal Affect, Normal Mood Assessment and Plan - Assessment and Plan (Free Text) Assessment: PEG Tube Malfunction 06/10: Patient tolerated endoscopy. PEG is safe to use. Of note, patient passed swallow eval and is tolerating mechanically altered PO diet. Endoscopy 06/10: Grade B reflux, small hiatal hernia, erythematous stomach mucosa , patent G-Tube with surrounding inflammation and erythema. Patient may use PEG. See full report. F/U additional GI recommendations 100cc Free water flushes via PEG tube q8H -CXR 06/10: negative. see full report. -EKG 06/10: NSR with sinus arrhythmia. see full report. -pt had peg tube placed at [facility] several months ago - CT abd/pelv w/IV contrast 06/09: A PEG tube is present with distal tip in the stomach. 2.4 centimeter ovoid area/lesion of central lucency with peripheral sclerosis seen at the medial aspect of the right femoral head. This is of uncertain clinical etiology and may represent focal avascular necrosis versus prominent intraosseous complex ganglia versus subchondral cyst versus etiology. see full report. Lower Extremity Swelling Resolved 06/09-06/10: b/l LE dopplers negative. -elevated ddimer 247 Patient uses wheelchair to get around- F/U with PT recommendations Alcohol Intoxication ETOH level 275 on admission [facility] protocol Ativan 1mg IVP Q4H PRN seizure activity Thiamine, B1, multivitamins on board Banana bag at 100cc/hr Cessation counseling Anemia Hgb 11.1 no active bleeding. monitor. likely secondary to excessive ETOH intake Electrolyte Abnormality Repleted. Continue to monitor Prophylaxis Lovenox 40 mg SC daily Pepcid 20mg IVP qD Mechanically altered diet. Dispo- F/U with Case management about patient's placement. Patient states that he would like to live with his brother and sister; he would like to be discharged home. Case discussed with Dr. Rosales. All medical management as per Dr. Rosales --- Patient is stable for discharge to rehab, pending authorization, per Dr. Rosales. Patient should resume all medications as outlined in this document. No new medications were started on this admission. Your PEG tube was examined and determined to function well. There was mild irritation around the PEG site, however you do not have an infection. You passed your swallow evaluation in the hospital, and are safe to eat food by mouth. You PEG tube will remain in place due to your history of seizures, and may be used if you are ever NPO. Please resume all your home medications and please make an appointment and follow up with your Primary Doctor within one week of discharge. Patient should return to ED immediately if symptoms return or worsen. Instructions discussed with patient who understood and agreed.
[2018-06-13] MEDS: Multiple Vitamins Tab PO SCH (09:56)
[2018-06-13] MEDS: Enoxaparin 40 mg Syringe SC SCH (09:56)
[2018-06-13 17:16] VITALS: BP 101/65; PULSE 70; TEMP 98; O2SAT 96
== END 2018-06-13 17:34 | disposition home or self-care (01) ==
LOC: C.ER 21:40 → C.9E 06-09 03:59 → C.5S 06-09 04:18 → C.6T 06-09 04:32
PROVIDERS: ADMIT Internal Medicine Pulmonary Disease; ATTEND Internal Medicine Pulmonary Disease
DX: I25.10 Atherosclerotic heart disease of native coronary artery without angina pectoris (principal); R56.9 Unspecified convulsions; E87.6 Hypokalemia; E83.42 Hypomagnesemia; E11.9 Type 2 diabetes mellitus without complications; D64.9 Anemia, unspecified; K44.9 Diaphragmatic hernia without obstruction or gangrene; K20.9 Esophagitis, unspecified; K21.9 Gastro-esophageal reflux disease without esophagitis; Z93.1 Gastrostomy status; F10.120 Alcohol abuse with intoxication, uncomplicated; Y90.8 Blood alcohol level of 240 mg/100 ml or more
CPT/HCPCS: 36415; 43235; 71045; 74018; 74177; 80053; 80320; 82948; 83690; 83735; 84100; 85025; 85378; 85610; 85730; 92526; 92610; 93005; 93970; 96365; 96366; 96367; 96372; 96375; 96376; 97116; 97162; 97530; 99285; G0378; G8978; G8979; G8996; G8997; J1650; J3411; J3475; J7030; J7120; Q9966; Q9967

== ENCOUNTER 2018-06-14 21:45 | Emergency (ER) | payer MEDICAID ==
[2018-06-14 21:45] VITALS: BMI 29.7
[2018-06-14 21:51] VITALS: BP 125/78; PULSE 93; RESP 18; TEMP 98.8; O2SAT 100
--- NOTE | 2018-06-15 01:16 | C.PDOC ---
History Of Present Illness 57-year-old male presents to the ED for evaluation of vague abdominal discomfort. Patient is also looking for a place to sleep. Patient notes he had his PEG tube removed, but cannot explain how or where. Patient states he has been eating/drinking normally. He denies fever, chills. Time Seen by Provider: 06/14/18 22:00 Chief Complaint (Nursing): Abdominal Pain History Per: Patient History/Exam Limitations: no limitations Current Symptoms Are (Timing): Still Present Location Of Pain/Discomfort: Diffuse Associated Symptoms: denies: Fever, Chills Past Medical History Reviewed: Historical Data, Nursing Documentation, Vital Signs Vital Signs: Last Vital Signs Temp 98.8 F 06/14/18 21:53 Pulse 93 H 06/14/18 21:53 Resp 18 06/14/18 21:53 BP 125/78 06/14/18 21:53 Pulse Ox 100 06/15/18 07:22 - Medical History PMH: Anxiety, Arthritis, Bronchitis, CAD, Depression, Diabetes (Pt. did not disclose to speech writer, not aware), Fractures (RIGHT ARM), Gastritis, Gall Bladder Disease (s/p cholecystectomy), HTN, Post Traumatic Stress Disorder, Rheumatoid Arthritis, Seizures, Chronic Pain Denies: Chronic Kidney Disease Surgical History: Cholecystectomy - [facility] Procedures ALCOHOL DETOXIFICATION (07/04/15) APPLICATION OF SPLINT (03/20/13) CLOSURE SKIN & SUBCUTANEOUS NEC (08/14/13) DETOXIFICATION SERVICES FOR SUBSTANCE ABUSE TREATMENT (03/22/16) ESOPHAGOGASTRODUODENOSCOPY [EGD] W/CLOSED BIOPSY (02/16/15) OTHER GROUP THERAPY (03/12/13) PHYSICAL THERAPY NEC (07/04/15) TETANUS TOXOID ADMINIST (01/19/14) Family History: States: Unknown Family Hx - Social History Hx Tobacco Use: No Hx Alcohol Use: Yes Hx Substance Use: No - Immunization History Hx Tetanus Toxoid Vaccination: No Hx Influenza Vaccination: No Hx Pneumococcal Vaccination: No Review Of Systems Constitutional: Negative for: Fever, Chills Gastrointestinal: Positive for: Abdominal Pain Physical Exam - Physical Exam Appears: Non-toxic, No Acute Distress Skin: Normal Color, Warm, Dry Head: Atraumatic, Normacephalic Eye(s): bilateral: Normal Inspection Oral Mucosa: Moist, Other (alcohol on breath ) Neck: Supple Chest: Symmetrical, No Deformity, No Tenderness Cardiovascular: Rhythm Regular, No Murmur Respiratory: Normal Breath Sounds, No Rales, No Rhonchi, No Wheezing Gastrointestinal/Abdominal: Soft, No Tenderness, No Guarding, No Rebound, No Other (PEG tube in place ) Extremity: Normal ROM Neurological/Psych: Oriented x3, Normal Speech, Normal Cognition Gait: With Assistance (wheelchair) ED Course And Treatment O2 Sat by Pulse Oximetry: 100 (on RA) Pulse Ox Interpretation: Normal Disposition Doctor Will See Patient In The: Office Counseled Patient/Family Regarding: Studies Performed, Diagnosis - Disposition Disposition: HOME/ ROUTINE Disposition Time: 22:00 Condition: GOOD Forms: [facility] (Tajik) - Clinical Impression Clinical Impression: Homelessness, Alcohol abuse, daily use - Scribe Statement The provider has reviewed the documentation as recorded by the Scribe (Kari Fajardo) Provider Attestation: All medical record entries made by the Scribe were at my direction and personally dictated by me. I have reviewed the chart and agree that the record accurately reflects my personal performance of the history, physical exam, medical decision making, and the department course for this patient. I have also personally directed, reviewed, and agree with the discharge instructions and disposition.
== END 2018-06-14 22:18 | disposition home or self-care (01) ==
LOC: C.ER 21:45
DX: F10.10 Alcohol abuse, uncomplicated (principal); Z59.0 Homelessness; E11.9 Type 2 diabetes mellitus without complications; I25.10 Atherosclerotic heart disease of native coronary artery without angina pectoris

== ENCOUNTER 2018-06-21 21:04 | Inpatient (IN) | payer MEDICAID ==
[2018-06-21 21:06] VITALS: BMI 29.7
[2018-06-21] MEDS ORDERED: Fosphenytoin 500 MG in Dextrose 5% In Water 50 ML IV STA (21:25)
[2018-06-21] MEDS ORDERED: Sodium Chloride 0.9% 1,000 ML IV ONE (21:25)
--- NOTE | 2018-06-21 21:33 | C.PDOC ---
History Of Present Illness 57 year old male with PMHx of alcohol abuse is brought to the ED by EMS for evaluation of seizure tonight. 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 Patient admits to drinking alcohol tonight. Patient denies SI/HI, hallucinations , injury, fall, trauma, weakness, numbness, bowel incontinence. Chief Complaint (Nursing): Seizure History Per: Patient, EMS History/Exam Limitations: intoxication Recent Seizure Activity Began: Mins Ago: (30) Number Of Seizures: One Length Of Seizures (Duration): Unknown Quality Of Seizure: Generalized Precipitating Factor(s): Recent Alcohol Ingestion Post-ictal Period: Yes Severity: None Recent travel outside of the [place]: No Additional History Per: Patient, EMS Past Medical History Reviewed: Historical Data, Nursing Documentation, Vital Signs Vital Signs: Last Vital Signs Temp 97.6 F 06/21/18 21:17 Pulse 77 06/21/18 21:17 Resp 20 06/21/18 21:17 BP 133/90 06/21/18 21:17 Pulse Ox 100 06/21/18 21:41 - Medical History PMH: Anxiety, Arthritis, Bronchitis, CAD, Depression, Diabetes (Pt. did not disclose to continuity writer, not aware), Fractures (RIGHT ARM), Gastritis, Gall Bladder Disease (s/p cholecystectomy), HTN, Post Traumatic Stress Disorder, Rheumatoid Arthritis, Seizures, Chronic Pain Denies: Chronic Kidney Disease Surgical History: Cholecystectomy - [facility] Procedures ALCOHOL DETOXIFICATION (07/04/15) APPLICATION OF SPLINT (03/20/13) CLOSURE SKIN & SUBCUTANEOUS NEC (08/14/13) DETOXIFICATION SERVICES FOR SUBSTANCE ABUSE TREATMENT (03/22/16) ESOPHAGOGASTRODUODENOSCOPY [EGD] W/CLOSED BIOPSY (02/16/15) OTHER GROUP THERAPY (03/12/13) PHYSICAL THERAPY NEC (07/04/15) TETANUS TOXOID ADMINIST (01/19/14) Family History: States: Unknown Family Hx - Social History Hx Tobacco Use: No Hx Alcohol Use: Yes Hx Substance Use: No - Immunization History Hx Tetanus Toxoid Vaccination: No Hx Influenza Vaccination: No Hx Pneumococcal Vaccination: No Review Of Systems Constitutional: Negative for: Fever, Chills Eyes: Negative for: Vision Change Cardiovascular: Negative for: Chest Pain Respiratory: Negative for: Cough, Shortness of Breath Gastrointestinal: Negative for: Nausea, Vomiting Skin: Negative for: Rash Neurological: Negative for: Weakness, Numbness Psych: Negative for: Depression, Suicidal ideation Physical Exam - Physical Exam Appears: Non-toxic, No Acute Distress, Other (AOB) Skin: Normal Color, Warm, Dry Head: Atraumatic, Normacephalic, No Laceration Eye(s): bilateral: Normal Inspection Oral Mucosa: Moist Tongue: No Lesions Lips: No Lesions Neck: Normal ROM, Supple Chest: Symmetrical Cardiovascular: Rhythm Regular Respiratory: Normal Breath Sounds, No Rales, No Rhonchi, No Wheezing Gastrointestinal/Abdominal: Soft, No Tenderness, No Guarding, No Rebound Extremity: Normal ROM, No Tenderness, No Swelling Neurological/Psych: Oriented x3, Normal Speech Gait: Unable To Assess ED Course And Treatment - Laboratory Results Result Diagrams: 06/21/18 21:39 06/21/18 21:39 O2 Sat by Pulse Oximetry: 100 (ON RA) Pulse Ox Interpretation: Normal Medical Decision Making Medical Decision Making: Plan: * Labs * IV fluids Disposition Discussed With Dr.: Maxim Ugarte Doctor Will See Patient In The: Hospital Counseled Patient/Family Regarding: Diagnosis - Disposition Disposition: HOSPITALIZED Disposition Time: 01:08 Condition: STABLE Forms: [facility] (Macanese) - POA Present On Arrival: None - Clinical Impression Clinical Impression: Seizure disorder, Chronic alcoholism - Scribe Statement The provider has reviewed the documentation as recorded by the Scribe Woo Brown All medical record entries made by the Scribe were at my direction and personally dictated by me. I have reviewed the chart and agree that the record accurately reflects my personal performance of the history, physical exam, medical decision making, and the department course for this patient. I have also personally directed, reviewed, and agree with the discharge instructions and disposition.
[2018-06-21 21:43] LABS: BASO % 0.9 % (0.0-2.0); EOS # 0.1 K/uL (0.0-0.7); EOS % 1.4 % (0.0-4.0); HEMOGLOBIN 10.9 g/dL (12.0-18.0); LYMPH # 1.9 K/uL (1.0-4.3); LYMPH % 42.9 % (20.0-40.0); MEAN CELL VOLUME 98.2 fL (80.0-94.0); MEAN CORPUSCULAR HGB CONC 35.6 g/dL (33.0-37.0); MEAN PLATELET VOLUME 7.3 fL (7.2-11.7); MONO # 0.4 K/uL (0.0-0.8); MONO % 10.1 % (0.0-10.0); NEUT # 1.9 K/uL (1.8-7.0); NEUT % 44.7 % (50.0-75.0); NRBC % 0.4 % (0.0-2.0); RBC 3.12 Mil/uL (4.40-5.90); RED CELL DISTRIBUTION WIDTH 16.7 % (11.5-14.5); WHITE BLOOD COUNT 4.4 K/uL (4.8-10.8)
[2018-06-21] MEDS ORDERED: Sodium Chloride 0.9% 1,000 ML ONE (21:51)
[2018-06-21 22:06] LABS: ALBUMIN 4.5 g/dL (3.5-5.0); ALT/SGPT 22 U/L (21-72); AST/SGOT 47 U/L (17-59); BLOOD UREA NITROGEN 13 mg/dL (9-20); CALCIUM 9.5 mg/dl (8.6-10.4); GFR NON-AFRICAN AMERICAN > 60
[2018-06-21] MEDS ORDERED: Valproate 500 MG in Sodium Chloride 0.9% 100 ML IVPB ONE (22:15)
--- NOTE | 2018-06-22 02:27 | CP.PCM.HP ---
<Sheryl Dickson - Last Filed: 06/22/18 02:40> History of Present Illness - History of Present Illness History of Present Illness: cc: seizure Mr. Pina is a 57 year old male PMH hypertension, seizure disorder, alcohol abuse who is admitted tonight for seizure activity secondary to alcohol use and noncompliance with medications. Patient was unresponsive during interview and information was collected via chart review. Unable to obtain ROS due to unresponsiveness. Patient is well known to the [facility] ED and was recently discharged for Gtube dysfunction, which he has since pulled out. ED course: Ativan 2, Valproate 500, NS has been stopped as patient has pulled out 3 peripheral access IVs PMH: HTN, seizure disorder, EtOH PSxH: cholecystectomy FamHx: Mother [place] 63 SocHx: EtOH abuse, commonly over a pint a sitting, denies tobacco, denies illicit drugs Meds: noncompliant: Protonix, Folic acid, Ferrous sulfate, Depakote, Thiamine, Keppra, Norvasc All: NKDA PMD: Bobby Full Code Present on Admission - Present on Admission Any Indicators Present on Admission: No Review of Systems - Review of Systems Systems not reviewed;Unavailable: Altered Mental Status, Intoxicated Past Patient History - Infectious Disease Hx of Infectious Diseases: None - Past Medical History & Family History Past Medical History?: Yes - Past Social History Smoking Status: Never Smoked Alcohol: > 2 Drinks/Day Drugs: Denies - CARDIAC Hx Hypertension: Yes - PULMONARY Hx Bronchitis: Yes - NEUROLOGICAL Hx Seizures: Yes - HEENT Hx HEENT Problems: No - RENAL Hx Chronic Kidney Disease: No - ENDOCRINE/METABOLIC Hx Diabetes Mellitus Type 2: Yes - INTEGUMENTARY Hx Dermatological Problems: No - MUSCULOSKELETAL/RHEUMATOLOGICAL Hx Arthritis: Yes Hx Fractures: Yes (RIGHT ARM) Hx Rheumatoid Arthritis: Yes - GASTROINTESTINAL Hx Gall Bladder Disease: Yes (s/p cholecystectomy) Hx Gastritis: Yes - PSYCHIATRIC Hx Anxiety: Yes Hx Depression: Yes Hx Post Traumatic Stress Disorder: Yes Hx Substance Use: No - SURGICAL HISTORY Hx Cholecystectomy: Yes - ANESTHESIA Hx Anesthesia: Yes Hx Anesthesia Reactions: No Meds Allergies/Adverse Reactions: Allergies Allergy/AdvReac Type Severity Reaction Status Date / Time No Known Allergies Allergy Verified 06/14/18 21:57 Physical Exam - Constitutional Appears: No Acute Distress, Unkempt - Head Exam Head Exam: ATRAUMATIC, NORMOCEPHALIC - Eye Exam Pupil Exam: Miosis Additional comments: pinpoint pupils - ENT Exam ENT Exam: Mucous Membranes Moist, Normal Exam Additional comments: poor dentition - Respiratory Exam Respiratory Exam: Clear to Auscultation Bilateral, NORMAL BREATHING PATTERN. absent: Rales, Rhonchi, Wheezes - Cardiovascular Exam Cardiovascular Exam: REGULAR RHYTHM, +S1, +S2. absent: Systolic Murmur - GI/Abdominal Exam GI & Abdominal Exam: Normal Bowel Sounds, Soft. absent: Tenderness Additional comments: Gtube site healing well - Extremities Exam Extremities exam: Positive for: normal inspection, pedal pulses present. Negative for: pedal edema - Neurological Exam Neurological exam: Altered - Skin Skin Exam: Dry, Intact, Normal Color Results - Vital Signs Recent Vital Signs: Last Vital Signs Temp 97.6 F 06/21/18 21:17 Pulse 77 06/22/18 02:03 Resp 18 06/22/18 02:03 BP 121/71 06/22/18 02:03 Pulse Ox 99 06/22/18 02:03 - Labs Result Diagrams: 06/21/18 21:39 06/21/18 21:39 Labs: Laboratory Results - last 24 hr 06/21/18 06/21/18 06/21/18 21:13 21:39 21:39 WBC 4.4 L RBC 3.12 L Hgb 10.9 L Hct 30.7 L MCV 98.2 H D MCH 35.0 H MCHC 35.6 RDW 16.7 H Plt Count 163 MPV 7.3 Neut % (Auto) 44.7 L Lymph % (Auto) 42.9 H [place] % (Auto) 10.1 H Eos % (Auto) 1.4 Baso % (Auto) 0.9 Neut # (Auto) 1.9 Lymph # (Auto) 1.9 [place] # (Auto) 0.4 Eos # (Auto) 0.1 Baso # (Auto) 0.0 Sodium 145 Potassium 4.1 Chloride 106 Carbon Dioxide 23 Anion Gap 20 BUN 13 Creatinine 0.8 Est GFR ( Amer) > 60 Est GFR (Non-Af Amer) > 60 POC Glucose (mg/dL) 114 H Random Glucose 101 Calcium 9.5 Total Bilirubin 1.2 AST 47 ALT 22 Alkaline Phosphatase 77 Total Protein 9.1 H Albumin 4.5 Globulin 4.7 H Albumin/Globulin Ratio 1.0 Valproic Acid Alcohol, Quantitative 331 H 06/21/18 21:39 WBC RBC Hgb Hct MCV MCH MCHC RDW Plt Count MPV Neut % (Auto) Lymph % (Auto) [place] % (Auto) Eos % (Auto) Baso % (Auto) Neut # (Auto) Lymph # (Auto) [place] # (Auto) Eos # (Auto) Baso # (Auto) Sodium Potassium Chloride Carbon Dioxide Anion Gap BUN Creatinine Est GFR ( Amer) Est GFR (Non-Af Amer) POC Glucose (mg/dL) Random Glucose Calcium Total Bilirubin AST ALT Alkaline Phosphatase Total Protein Albumin Globulin Albumin/Globulin Ratio Valproic Acid < 10.0 L Alcohol, Quantitative Assessment & Plan - Assessment and Plan (Free Text) Assessment: 57yoM PMH EtOH abuse, seizure disorder, HTN admitted for seizure activity secondary alcohol use and medication noncompliance. Plan: 1) Seizure disorder - noncompliant with medication since discharge - restart Depakote 250mg po bid - restart Keppra 500mg po bid - seizure precautions 2) Alcohol Use and Abuse - advised on cessation - CIWA protocol - aspiration precautions - fall precautions - patient refused IVF by pulling peripheral access - restart Folic Acid, Ferrous sulfate, Thiamine 3) Hypertension - Cont Home Norvasc 10mg po daily - monitor vitals 4) Anemia - Hgb 10.9, likely secondary to alcohol use - no active bleeding - monitor with AM labs 5) PPx - DVT: Lovenox 40mg SC daily - GI: Protonix 40mg po daily - Heart Healthy Diet, soft d/w Dr. Shanel Dickson PGY-1 - Date & Time Date: 06/22/18 Time: 01:30 <Valeriano Stuart - Last Filed: 06/22/18 03:11> Results - Vital Signs Recent Vital Signs: Last Vital Signs Temp 97.6 F 06/21/18 21:17 Pulse 77 06/22/18 02:03 Resp 18 06/22/18 02:03 BP 121/71 06/22/18 02:03 Pulse Ox 99 06/22/18 02:03 - Labs Result Diagrams: 06/21/18 21:39 06/21/18 21:39 Labs: Laboratory Results - last 24 hr 06/21/18 06/21/18 06/21/18 21:13 21:39 21:39 WBC 4.4 L RBC 3.12 L Hgb 10.9 L Hct 30.7 L MCV 98.2 H D MCH 35.0 H MCHC 35.6 RDW 16.7 H Plt Count 163 MPV 7.3 Neut % (Auto) 44.7 L Lymph % (Auto) 42.9 H [place] % (Auto) 10.1 H Eos % (Auto) 1.4 Baso % (Auto) 0.9 Neut # (Auto) 1.9 Lymph # (Auto) 1.9 [place] # (Auto) 0.4 Eos # (Auto) 0.1 Baso # (Auto) 0.0 Sodium 145 Potassium 4.1 Chloride 106 Carbon Dioxide 23 Anion Gap 20 BUN 13 Creatinine 0.8 Est GFR ( Amer) > 60 Est GFR (Non-Af Amer) > 60 POC Glucose (mg/dL) 114 H Random Glucose 101 Calcium 9.5 Total Bilirubin 1.2 AST 47 ALT 22 Alkaline Phosphatase 77 Total Protein 9.1 H Albumin 4.5 Globulin 4.7 H Albumin/Globulin Ratio 1.0 Valproic Acid Alcohol, Quantitative 331 H 06/21/18 21:39 WBC RBC Hgb Hct MCV MCH MCHC RDW Plt Count MPV Neut % (Auto) Lymph % (Auto) [place] % (Auto) Eos % (Auto) Baso % (Auto) Neut # (Auto) Lymph # (Auto) [place] # (Auto) Eos # (Auto) Baso # (Auto) Sodium Potassium Chloride Carbon Dioxide Anion Gap BUN Creatinine Est GFR ( Amer) Est GFR (Non-Af Amer) POC Glucose (mg/dL) Random Glucose Calcium Total Bilirubin AST ALT Alkaline Phosphatase Total Protein Albumin Globulin Albumin/Globulin Ratio Valproic Acid < 10.0 L Alcohol, Quantitative - EKG Data EKG Interpreted by: ER Physician (NSR, normal tracings, raste of 69/min.) EKG shows normal: Sinus rhythm Rate: Normal <Maxim Ugarte - Last Filed: 06/22/18 05:51> Results - Vital Signs Recent Vital Signs: Last Vital Signs Temp 97.6 F 06/22/18 03:20 Pulse 71 06/22/18 04:00 Resp 20 06/22/18 03:20 BP 122/86 06/22/18 03:20 Pulse Ox 98 06/22/18 03:20 - Labs Result Diagrams: 06/21/18 21:39 06/21/18 21:39 Labs: Laboratory Results - last 24 hr 06/21/18 06/21/18 06/21/18 21:13 21:39 21:39 WBC 4.4 L RBC 3.12 L Hgb 10.9 L Hct 30.7 L MCV 98.2 H D MCH 35.0 H MCHC 35.6 RDW 16.7 H Plt Count 163 MPV 7.3 Neut % (Auto) 44.7 L Lymph % (Auto) 42.9 H [place] % (Auto) 10.1 H Eos % (Auto) 1.4 Baso % (Auto) 0.9 Neut # (Auto) 1.9 Lymph # (Auto) 1.9 [place] # (Auto) 0.4 Eos # (Auto) 0.1 Baso # (Auto) 0.0 Sodium 145 Potassium 4.1 Chloride 106 Carbon Dioxide 23 Anion Gap 20 BUN 13 Creatinine 0.8 Est GFR ( Amer) > 60 Est GFR (Non-Af Amer) > 60 POC Glucose (mg/dL) 114 H Random Glucose 101 Calcium 9.5 Total Bilirubin 1.2 AST 47 ALT 22 Alkaline Phosphatase 77 Total Protein 9.1 H Albumin 4.5 Globulin 4.7 H Albumin/Globulin Ratio 1.0 Valproic Acid Alcohol, Quantitative 331 H 06/21/18 21:39 WBC RBC Hgb Hct MCV MCH MCHC RDW Plt Count MPV Neut % (Auto) Lymph % (Auto) [place] % (Auto) Eos % (Auto) Baso % (Auto) Neut # (Auto) Lymph # (Auto) [place] # (Auto) Eos # (Auto) Baso # (Auto) Sodium Potassium Chloride Carbon Dioxide Anion Gap BUN Creatinine Est GFR ( Amer) Est GFR (Non-Af Amer) POC Glucose (mg/dL) Random Glucose Calcium Total Bilirubin AST ALT Alkaline Phosphatase Total Protein Albumin Globulin Albumin/Globulin Ratio Valproic Acid < 10.0 L Alcohol, Quantitative Assessment & Plan - Date & Time Date: 06/22/18 (I have seen and examined the patient. I agree with the findings and plan of care as documented by Dr. Dickson. Patient with seizure disorder. Alcohol abuse. Continue Depakote and Keppra. [facility] protocol. Monitor for acute changes.) Time: 05:50 Attending/Attestation - Attestation I have personally seen and examined this patient.: Yes I have fully participated in the care of the patient.: Yes I have reviewed all pertinent clinical information: Yes
--- NOTE | 2018-06-22 07:33 | CP.PCM.PN ---
<Ana Paula Paige MarceloLori - Last Filed: 06/22/18 10:55> Subjective - Date & Time of Evaluation Date of Evaluation: 06/22/18 Time of Evaluation: 08:00 - Subjective Subjective: Medicine Progress Note: Patient was seen and examined at bedside in the AM. Patient refused an IV or fluids yesterday evening per nurse. Patient states he forget to take his medications. He states he previously saw Dr. Rosales about 2 weeks ago. He states he uses a wheel chair at home. 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 Patient denies chest pain, shortness of breath, nausea, vomiting, diarrhea or constipation. Objective - Vital Signs/Intake and Output Vital Signs (last 24 hours): Temp Pulse Resp BP Pulse Ox 97.6 F 71 20 122/86 98 06/22/18 03:20 06/22/18 04:00 06/22/18 03:20 06/22/18 03:20 06/22/18 03:20 Intake and Output: 06/22/18 06/22/18 06:59 18:59 Intake Total 120 Balance 120 - Medications Medications: Current Medications Amlodipine Besylate (Norvasc) 10 mg PO DAILY [facility] Divalproex Sodium (Depakote Er) 250 mg PO BID [facility] Enoxaparin Sodium (Lovenox) 40 mg SC DAILY [facility] Ferrous Sulfate (Feosol) 325 mg PO TID [facility] Folic Acid (Folic Acid) 1 mg PO DAILY [facility] Levetiracetam (Keppra) 500 mg PO Q12H MARISA Last Admin: 06/22/18 03:00 Dose: 500 mg Lorazepam (Ativan) 1 mg PO Q4 PRN PRN Reason: Symptoms of alcohol withdrawl Pantoprazole Sodium (Protonix Ec Tab) 40 mg PO DAILY [facility] Thiamine HCl (Vitamin B1 Tab) 100 mg PO DAILY [facility] - Labs Labs: 06/21/18 21:39 06/21/18 21:39 - Constitutional Appears: No Acute Distress, Older Than Stated Age - Head Exam Head Exam: ATRAUMATIC, NORMAL INSPECTION - Eye Exam Eye Exam: EOMI, Normal appearance - ENT Exam ENT Exam: Mucous Membranes Dry - Respiratory Exam Respiratory Exam: Clear to Ausculation Bilateral, NORMAL BREATHING PATTERN - Cardiovascular Exam Cardiovascular Exam: REGULAR RHYTHM, +S1, +S2 - GI/Abdominal Exam GI & Abdominal Exam: Soft, Normal Bowel Sounds. absent: Tenderness - Extremities Exam Extremities Exam: Normal Inspection. absent: Joint Swelling, Pedal Edema, Tenderness - Neurological Exam Neurological Exam: Alert, Awake, Oriented x3 Neuro motor strength exam: Left Upper Extremity: 5, Right Upper Extremity: 5, Left Lower Extremity: 5, Right Lower Extremity: 3 - Psychiatric Exam Psychiatric exam: Normal Affect - Skin Skin Exam: Normal Color Assessment and Plan - Assessment and Plan (Free Text) Assessment: History of Seizure disorder - Patient is noncompliant with medication since discharge - Valproic Acid Level: <10 - restart Depakote 250mg po bid - restart Keppra 500mg po bid - seizure precautions Alcohol Abuse - Discussed the importance of alcohol cessation - CIWA protocol - aspiration precautions - fall precautions - Patient previously refused IV but now is agreeable - restart Folic Acid, Ferrous sulfate, Thiamine History of Hypertension - Cont Home Norvasc 10mg po daily - monitor vitals History of Anemia - Hgb 10.9, likely secondary to alcohol abuse - no active bleeding - monitor with AM labs Prophylaxis - DVT: Lovenox 40mg SC daily - GI: Protonix 40mg po daily - Heart Healthy Diet, soft - Physical Therapy Case discussed with Dr. Aleksandar Paige PGY-2 <Layo Huertas - Last Filed: 06/22/18 18:00> Objective - Vital Signs/Intake and Output Vital Signs (last 24 hours): Temp Pulse Resp BP Pulse Ox 98.4 F 91 H 20 143/85 98 06/22/18 15:00 06/22/18 15:00 06/22/18 15:00 06/22/18 15:00 06/22/18 15:00 Intake and Output: 06/22/18 06/22/18 06:59 18:59 Intake Total 120 Balance 120 - Medications Medications: Current Medications Amlodipine Besylate (Norvasc) 10 mg PO DAILY [facility] Last Admin: 06/22/18 10:52 Dose: 10 mg Divalproex Sodium (Depakote Er) 250 mg PO BID [facility] Last Admin: 06/22/18 17:09 Dose: 250 mg Enoxaparin Sodium (Lovenox) 40 mg SC DAILY [facility] Last Admin: 06/22/18 10:50 Dose: 40 mg Ferrous Sulfate (Feosol) 325 mg PO TID [facility] Last Admin: 06/22/18 17:03 Dose: 325 mg Folic Acid (Folic Acid) 1 mg PO DAILY [facility] Last Admin: 06/22/18 10:50 Dose: 1 mg Levetiracetam (Keppra) 500 mg PO Q12H [facility] Last Admin: 06/22/18 13:52 Dose: 500 mg Lorazepam (Ativan) 1 mg PO Q4 PRN PRN Reason: Symptoms of alcohol withdrawl Last Admin: 06/22/18 17:09 Dose: 1 mg Pantoprazole Sodium (Protonix Ec Tab) 40 mg PO DAILY [facility] Last Admin: 06/22/18 10:52 Dose: 40 mg Thiamine HCl (Vitamin B1 Tab) 100 mg PO DAILY [facility] Last Admin: 06/22/18 10:52 Dose: 100 mg - Labs Labs: 06/22/18 08:13 06/21/18 21:39 Attending/Attestation - Attestation I have personally seen and examined this patient.: Yes I have fully participated in the care of the patient.: Yes I have reviewed all pertinent clinical information, including history, physical exam and plan: Yes Notes (Text): This is a patient with alcohol abuse,seizure disorder and noncompliance with seizure medication is here for seizure. 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 Unsteady gait and requesting for a brace for his right leg. We will ask neurologist to see him . He was diagnosed with seizure when he was 14 years old. PT evaluation and possible rehab. D/W Dr Tobin. I agree with the assessment and the plan
[2018-06-22] MEDS ORDERED: Sodium Chloride 0.9% 500 ML IV ONE (08:09)
[2018-06-22 09:12] LABS: HEMOGLOBIN 10.1 g/dL (12.0-18.0); MEAN CELL VOLUME 98.7 fL (80.0-94.0); MEAN CORPUSCULAR HEMOGLOBIN 34.8 pg (27.0-31.0); MEAN CORPUSCULAR HGB CONC 35.3 g/dL (33.0-37.0); MEAN PLATELET VOLUME 7.8 fL (7.2-11.7); RBC 2.9 Mil/uL (4.40-5.90); RED CELL DISTRIBUTION WIDTH 16.5 % (11.5-14.5)
[2018-06-22 10:21] LABS: BASO % 0.8 % (0.0-2.0); EOS % 1.9 % (0.0-4.0); LYMPH # 1.4 K/uL (1.0-4.3); LYMPH % 48.7 % (20.0-40.0); MONO # 0.4 K/uL (0.0-0.8); MONO % 13.2 % (0.0-10.0); NEUT # 1.1 K/uL (1.8-7.0); NEUT % 35.4 % (50.0-75.0); NRBC % 0.2 % (0.0-2.0)
[2018-06-22 10:22] LABS: EOS # 0.1 K/uL (0.0-0.7)
[2018-06-22] MEDS: Enoxaparin 40 mg Syringe SC SCH (10:50)
[2018-06-22] MEDS: Pantoprazole 40 mg EC Tab PO SCH (10:52)
[2018-06-23 08:05] LABS: BASO % 0.5 % (0.0-2.0); EOS # 0.1 K/uL (0.0-0.7); EOS % 1.7 % (0.0-4.0); LYMPH # 0.9 K/uL (1.0-4.3); LYMPH % 28.4 % (20.0-40.0); MEAN CELL VOLUME 97.9 fL (80.0-94.0); MEAN CORPUSCULAR HEMOGLOBIN 34.6 pg (27.0-31.0); MEAN CORPUSCULAR HGB CONC 35.3 g/dL (33.0-37.0); MEAN PLATELET VOLUME 7.9 fL (7.2-11.7); MONO # 0.4 K/uL (0.0-0.8); MONO % 11.6 % (0.0-10.0); NEUT # 1.9 K/uL (1.8-7.0); NEUT % 57.8 % (50.0-75.0); NRBC % 0.5 % (0.0-2.0); RBC 3.18 Mil/uL (4.40-5.90); WHITE BLOOD COUNT 3.3 K/uL (4.8-10.8)
[2018-06-23 08:47] LABS: ALB/GLOB RATIO 0.9 (1.0-2.1); ALBUMIN 3.8 g/dL (3.5-5.0); ALT/SGPT 15 U/L (21-72); AST/SGOT 37 U/L (17-59); BLOOD UREA NITROGEN 12 mg/dL (9-20); CALCIUM 9.4 mg/dl (8.6-10.4); GFR NON-AFRICAN AMERICAN > 60
[2018-06-23] MEDS: Pantoprazole 40 mg EC Tab PO SCH (10:25)
[2018-06-23] MEDS: Multiple Vitamins Tab PO SCH (10:26)
[2018-06-23] MEDS: Enoxaparin 40 mg Syringe SC SCH (10:26)
[2018-06-23] MEDS: Potassium Chloride 20 mEq ER Tab PO SCH (13:23)
--- NOTE | 2018-06-23 14:25 | CP.PCM.PN ---
Subjective - Date & Time of Evaluation Date of Evaluation: 06/23/18 Time of Evaluation: 09:00 - Subjective Subjective: PGY-[address] Fajardo covering for Dr. Rosales Patient was seen and examined at bedside this am. No acute events reported overnight. Patient continues to c/o of generalized R sided weakness to UE and LE , mild headache. Pt endorses unsteady gait and says he was told he needs a R leg brace. Of note, pt was diagnosed with seizures at 14 years old. Denies any chest pain, palpitation, SOB, cough, nausea, vomiting, diarrhea, or constipation. Objective - Vital Signs/Intake and Output Vital Signs (last 24 hours): Temp Pulse Resp BP Pulse Ox 97.7 F 91 H 18 127/81 100 06/23/18 07:00 06/23/18 08:00 06/23/18 07:00 06/23/18 07:00 06/23/18 07:00 Intake and Output: 06/23/18 06/23/18 06:59 18:59 Intake Total 450 Output Total 700 Balance -250 - Medications Medications: Current Medications Amlodipine Besylate (Norvasc) 10 mg PO DAILY [facility] Last Admin: 06/23/18 10:26 Dose: 10 mg Divalproex Sodium (Depakote Er) 250 mg PO BID [facility] Last Admin: 06/23/18 10:26 Dose: 250 mg Enoxaparin Sodium (Lovenox) 40 mg SC DAILY [facility] Last Admin: 06/23/18 10:26 Dose: 40 mg Ferrous Sulfate (Feosol) 325 mg PO TID [facility] Last Admin: 06/23/18 13:23 Dose: 325 mg Folic Acid (Folic Acid) 1 mg PO DAILY [facility] Last Admin: 06/23/18 10:25 Dose: 1 mg Levetiracetam (Keppra) 500 mg PO Q12H [facility] Last Admin: 06/23/18 13:23 Dose: 500 mg Lorazepam (Ativan) 1 mg PO Q4 PRN PRN Reason: Symptoms of alcohol withdrawl Last Admin: 06/22/18 17:09 Dose: 1 mg Multivitamins (Hexavitamin) 1 tab PO DAILY [facility] Last Admin: 06/23/18 10:26 Dose: 1 tab Pantoprazole Sodium (Protonix Ec Tab) 40 mg PO DAILY [facility] Last Admin: 06/23/18 10:25 Dose: 40 mg Potassium Chloride (K-Dur 20 Meq Er Tab) 20 meq PO DAILY [facility] Last Admin: 06/23/18 13:23 Dose: 20 meq Thiamine HCl (Vitamin B1 Tab) 100 mg PO DAILY [facility] Last Admin: 06/23/18 10:26 Dose: 100 mg - Labs Labs: 06/23/18 07:50 06/23/18 07:50 - Constitutional Appears: Non-toxic, No Acute Distress, Older Than Stated Age - Head Exam Head Exam: ATRAUMATIC, NORMAL INSPECTION, NORMOCEPHALIC - Eye Exam Eye Exam: EOMI, Normal appearance - ENT Exam ENT Exam: Normal Exam - Respiratory Exam Respiratory Exam: Clear to Ausculation Bilateral, NORMAL BREATHING PATTERN - Cardiovascular Exam Cardiovascular Exam: RRR, +S1, +S2 - GI/Abdominal Exam GI & Abdominal Exam: Soft, Normal Bowel Sounds. absent: Distended, Firm, Guarding, Rigid, Tenderness, Mass - Extremities Exam Extremities Exam: Normal Capillary Refill, Normal Inspection - Neurological Exam Neurological Exam: Alert, Awake, Oriented x3 Neuro motor strength exam: Left Upper Extremity: 5, Right Upper Extremity: 4, Left Lower Extremity: 5, Right Lower Extremity: 3 Additional comments: Decreased sensation to RUE and RLE - Psychiatric Exam Psychiatric exam: Normal Affect, Normal Mood - Skin Skin Exam: Dry, Intact, Normal Color, Warm Assessment and Plan - Assessment and Plan (Free Text) Assessment: 57 yo M with PMHx of HTN, seizure disorder, alcohol abuse, and medical noncompliance admitted for seizure activity secondary to alcohol use and noncompliance with medications. Plan: 1. History of Seizure disorder - patient is noncompliant with medication since discharge - valproic Acid Level: <10 - continue w/ Depakote 250mg po bid - continue w/ Keppra 500mg po bid - seizure precautions - f/u Neuro recs (Dr. Boyer) 2. Alcohol Abuse - [facility] protocol - aspiration precautions - fall precautions - patient previously refused IV but now is agreeable - folic acid 1mg PO daily - thiamine 100 mg PO daily - ferrous sulfate 325 mg PO TID 3. History of Hypertension - continue w/ home Norvasc 10mg po daily - monitor vitals 4. History of Anemia - Hgb 11.0, likely secondary to alcohol abuse - no active bleeding - monitor with AM labs 5. PPX, Diet, Disposition - DVT: Lovenox 40mg SC daily - GI: Protonix 40mg po daily - Diet: heart healthy, soft - PT eval -pt would benefit from R knee orthosis/brace to be able to ambulate with walker, upright metal with lock/unlock release to flex-extend Case discussed with Dr. Fajardo covering for Dr. Bobby Hinson, PGY-1
[2018-06-23 16:45] VITALS: RESP 20
[2018-06-23 19:15] LABS: ALBUMIN 3.7 g/dL (3.5-5.0); ALT/SGPT 10 U/L (21-72); AST/SGOT 32 U/L (17-59); BLOOD UREA NITROGEN 12 mg/dL (9-20); CALCIUM 8.9 mg/dl (8.6-10.4); GFR NON-AFRICAN AMERICAN > 60
[2018-06-24 07:55] LABS: HEMOGLOBIN 10.9 g/dL (12.0-18.0); RBC 3.14 Mil/uL (4.40-5.90); WHITE BLOOD COUNT 3.3 K/uL (4.8-10.8)
[2018-06-24 07:56] LABS: BASO % 0.5 % (0.0-2.0); EOS # 0.1 K/uL (0.0-0.7); EOS % 2.2 % (0.0-4.0); LYMPH # 1.1 K/uL (1.0-4.3); LYMPH % 32.6 % (20.0-40.0); MEAN CELL VOLUME 99.1 fL (80.0-94.0); MEAN CORPUSCULAR HEMOGLOBIN 34.7 pg (27.0-31.0); MEAN PLATELET VOLUME 8.5 fL (7.2-11.7); MONO # 0.4 K/uL (0.0-0.8); MONO % 12.7 % (0.0-10.0); NEUT # 1.7 K/uL (1.8-7.0); NRBC % 0.8 % (0.0-2.0); RED CELL DISTRIBUTION WIDTH 16.4 % (11.5-14.5)
[2018-06-24 08:11] LABS: ALBUMIN 3.8 g/dL (3.5-5.0); ALT/SGPT 15 U/L (21-72); AST/SGOT 30 U/L (17-59); BLOOD UREA NITROGEN 12 mg/dL (9-20); CALCIUM 9.4 mg/dl (8.6-10.4); GFR NON-AFRICAN AMERICAN > 60
[2018-06-24] MEDS: Potassium Chloride 20 mEq ER Tab PO SCH (10:00)
[2018-06-24] MEDS: Pantoprazole 40 mg EC Tab PO SCH (10:00)
[2018-06-24] MEDS: Enoxaparin 40 mg Syringe SC SCH (10:01)
[2018-06-24] MEDS: Multiple Vitamins Tab PO SCH (10:04)
--- NOTE | 2018-06-24 10:55 | CP.PCM.CON ---
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 Per ED documentation patient has a seizure 30 minutes prior to arrival. Patient states that he was diagnosed with seizure disorder since the age of 12 and was started on medications at that time. Currently states that he has been non-complaint with his seizure medications. On admission patient was found to have an alcohol level of 331. Patient states that he had two shots prior to being admitted. He denies any history of alcohol withdrawal or seizure activity secondary to alcohol withdrawal. He reports having approximately 1 seizure a month. Since admission patient denies any seizures, denies any headaches, dizziness, cp, sob, abdominal pain, urinary symptoms. 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, alcohol abuse Surgical History: cholecystectomy, peg tube insertion Social History: Uses a wheelchair, denies tobacco or drug use Past Patient History - Infectious Disease Hx of Infectious Diseases: None - Past Medical History & Family History Past Medical History?: Yes - Past Social History Smoking Status: Never Smoked - CARDIAC Hx Hypertension: Yes - PULMONARY Hx Respiratory Disorders: Yes Hx Bronchitis: Yes - NEUROLOGICAL Hx Neurological Disorder: Yes Hx Seizures: Yes - HEENT Hx HEENT Problems: No - RENAL Hx Chronic Kidney Disease: No - ENDOCRINE/METABOLIC Hx Endocrine Disorders: Yes Hx Diabetes Mellitus Type 2: Yes - INTEGUMENTARY Hx Dermatological Problems: No - MUSCULOSKELETAL/RHEUMATOLOGICAL Hx Rheumatoid Arthritis: Yes - GASTROINTESTINAL Hx Gastrointestinal Disorders: Yes Hx Gall Bladder Disease: Yes (s/p cholecystectomy) Hx Gastritis: Yes - PSYCHIATRIC Hx Psychophysiologic Disorder: Yes Hx Anxiety: Yes Hx Depression: Yes Hx Post Traumatic Stress Disorder: Yes Hx Substance Use: No - SURGICAL HISTORY Hx Surgeries: Yes Hx Cholecystectomy: Yes - ANESTHESIA Hx Anesthesia: Yes Hx Anesthesia Reactions: No Meds Home Medications: Home Medication List Medication Instructions Recorded Confirmed Type Divalproex [Depakote ER] 500 mg PO BID #60 ter 06/25/18 Rx Ferrous Sulfate 325 mg PO TID #90 tablet 06/25/18 Rx Folic Acid 1 mg PO DAILY #30 tab 06/25/18 Rx Levetiracetam [Keppra] 500 mg PO Q12 #60 tablet 06/25/18 Rx Multivitamins [Hexavitamin] 1 tab PO DAILY #30 tab 06/25/18 Rx Pantoprazole [Protonix EC Tab] 40 mg PO DAILY #30 ect 06/25/18 Rx Thiamine Mononitrate [Vitamin B-1] 100 mg PO DAILY #30 tablet 06/25/18 Rx amLODIPine [Norvasc] 10 mg PO DAILY #30 tab 06/25/18 Rx Allergies/Adverse Reactions: Allergies Allergy/AdvReac Type Severity Reaction Status Date / Time No Known Allergies Allergy Verified 06/14/18 21:57 - Medications Medications: Current Medications Amlodipine Besylate (Norvasc) 10 mg PO DAILY [facility] Last Admin: 06/24/18 10:04 Dose: 10 mg Divalproex Sodium (Depakote Er) 250 mg PO BID [facility] Last Admin: 06/24/18 10:01 Dose: 250 mg Enoxaparin Sodium (Lovenox) 40 mg SC DAILY [facility] Last Admin: 06/24/18 10:01 Dose: 40 mg Ferrous Sulfate (Feosol) 325 mg PO TID [facility] Last Admin: 06/24/18 10:04 Dose: 325 mg Folic Acid (Folic Acid) 1 mg PO DAILY [facility] Last Admin: 06/24/18 10:00 Dose: 1 mg Levetiracetam (Keppra) 500 mg PO Q12H [facility] Last Admin: 06/24/18 00:48 Dose: 500 mg Lorazepam (Ativan) 1 mg PO Q4 PRN PRN Reason: Symptoms of alcohol withdrawl Last Admin: 06/24/18 00:48 Dose: 1 mg Multivitamins (Hexavitamin) 1 tab PO DAILY [facility] Last Admin: 06/24/18 10:04 Dose: 1 tab Pantoprazole Sodium (Protonix Ec Tab) 40 mg PO DAILY [facility] Last Admin: 06/24/18 10:00 Dose: 40 mg Potassium Chloride (K-Dur 20 Meq Er Tab) 20 meq PO DAILY [facility] Last Admin: 06/24/18 10:00 Dose: 20 meq Thiamine HCl (Vitamin B1 Tab) 100 mg PO DAILY [facility] Last Admin: 06/24/18 10:04 Dose: 100 mg Physical Exam - Additional Findings Additional findings: - Constitutional Appears: Non-toxic, No Acute Distress, Unkempt - Head Exam Head Exam: ATRAUMATIC, NORMAL INSPECTION - Eye Exam Eye Exam: EOMI, Normal appearance - ENT Exam ENT Exam: Mucous Membranes Moist - Respiratory Exam Respiratory Exam: NORMAL BREATHING PATTERN - Cardiovascular Exam Cardiovascular Exam: REGULAR RHYTHM - Neurological Exam Neurological Exam: Alert, Awake, CN II-XII Intact, Oriented x3 Neuro motor strength exam: Left Upper Extremity: 5, Right Upper Extremity: 4, Left Lower Extremity: 5, Right Lower Extremity: 4 - Psychiatric Exam Psychiatric exam: Normal Affect - Skin Skin Exam: Normal Color, Warm Results - Vital Signs Recent Vital Signs: Last Vital Signs Temp 97.6 F 06/24/18 07:35 Pulse 85 06/24/18 07:35 Resp 20 06/24/18 07:35 BP 134/86 06/24/18 07:35 Pulse Ox 99 06/24/18 07:35 - Labs Result Diagrams: 06/25/18 07:18 06/25/18 07:18 Labs: Laboratory Results - last 24 hr 06/23/18 06/24/18 06/24/18 18:58 06:15 07:09 WBC 3.3 L RBC 3.14 L Hgb 10.9 L Hct 31.1 L MCV 99.1 H MCH 34.7 H MCHC 35.0 RDW 16.4 H Plt Count 131 MPV 8.5 Neut % (Auto) 52.0 Lymph % (Auto) 32.6 Conway % (Auto) 12.7 H Eos % (Auto) 2.2 Baso % (Auto) 0.5 Neut # (Auto) 1.7 L Lymph # (Auto) 1.1 Conway # (Auto) 0.4 Eos # (Auto) 0.1 Baso # (Auto) 0.0 Sodium 137 Potassium 4.1 Chloride 104 Carbon Dioxide 23 Anion Gap 15 BUN 12 Creatinine 0.9 Est GFR ( Amer) > 60 Est GFR (Non-Af Amer) > 60 POC Glucose (mg/dL) 98 Random Glucose 103 Calcium 8.9 Total Bilirubin 0.8 AST 32 ALT 10 L D Alkaline Phosphatase 64 Total Protein 7.7 Albumin 3.7 Globulin 3.9 Albumin/Globulin Ratio 1.0 06/24/18 07:09 WBC RBC Hgb Hct MCV MCH MCHC RDW Plt Count MPV Neut % (Auto) Lymph % (Auto) Conway % (Auto) Eos % (Auto) Baso % (Auto) Neut # (Auto) Lymph # (Auto) Conway # (Auto) Eos # (Auto) Baso # (Auto) Sodium 140 Potassium 4.0 Chloride 104 Carbon Dioxide 27 Anion Gap 13 BUN 12 Creatinine 1.1 Est GFR ( Amer) > 60 Est GFR (Non-Af Amer) > 60 POC Glucose (mg/dL) Random Glucose 86 Calcium 9.4 Total Bilirubin 0.5 AST 30 ALT 15 L D Alkaline Phosphatase 68 Total Protein 7.7 Albumin 3.8 Globulin 3.9 Albumin/Globulin Ratio 1.0 Assessment & Plan - Assessment and Plan (Free Text) Assessment: Seizure disorder -Stable, afebrile -Valproic acid level subtherapeutic -Will load with Keppra 1 gm -Increase Depakote to 500mg PO BID -Seizure precautions -Physical Therapy evaluation Alcohol Abuse -Continue present management -Counselled on Alcohol cessation Plan discussed with Dr Merlin Akers DO PGY-2
--- NOTE | 2018-06-24 11:53 | CP.PCM.PN ---
Subjective - Date & Time of Evaluation Date of Evaluation: 06/24/18 Time of Evaluation: 13:00 - Subjective Subjective: Progress Note for Dr. Rosales's Service Patient was seen and examined at bedside. Patient reports he feels okay. Denied any seizure like activity. Denied fever, chills, headache, chest pain, SOB, abdominal pain, n/v/d/c, or urinary symptoms. 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 Patient lives at home with his brother, ambulates with wheelchair, and noncompliant with his medications and continues to consume alcohol. PMHx: HTN, seizure disorder, EtOH PSHx: cholecystectomy Meds: noncompliant: Protonix, Folic acid, Ferrous sulfate, Depakote, Thiamine, Keppra, Norvasc All: NKDA FamHx: Mother [place] 63 SocHx: EtOH abuse, commonly over a pint a sitting, denies tobacco, denies illicit drugs PMD: Bobby Objective - Vital Signs/Intake and Output Vital Signs (last 24 hours): Temp Pulse Resp BP Pulse Ox 97.6 F 85 20 134/86 99 06/24/18 07:35 06/24/18 07:35 06/24/18 07:35 06/24/18 07:35 06/24/18 07:35 Intake and Output: 06/24/18 06/24/18 06:59 18:59 Output Total 1300 Balance -1300 - Medications Medications: Current Medications Amlodipine Besylate (Norvasc) 10 mg PO DAILY [facility] Last Admin: 06/24/18 10:04 Dose: 10 mg Divalproex Sodium (Depakote Er) 250 mg PO BID [facility] Last Admin: 06/24/18 10:01 Dose: 250 mg Enoxaparin Sodium (Lovenox) 40 mg SC DAILY [facility] Last Admin: 06/24/18 10:01 Dose: 40 mg Ferrous Sulfate (Feosol) 325 mg PO TID [facility] Last Admin: 06/24/18 10:04 Dose: 325 mg Folic Acid (Folic Acid) 1 mg PO DAILY [facility] Last Admin: 06/24/18 10:00 Dose: 1 mg Levetiracetam (Keppra) 500 mg PO Q12H [facility] Last Admin: 06/24/18 00:48 Dose: 500 mg Lorazepam (Ativan) 1 mg PO Q4 PRN PRN Reason: Symptoms of alcohol withdrawl Last Admin: 06/24/18 00:48 Dose: 1 mg Multivitamins (Hexavitamin) 1 tab PO DAILY [facility] Last Admin: 06/24/18 10:04 Dose: 1 tab Pantoprazole Sodium (Protonix Ec Tab) 40 mg PO DAILY [facility] Last Admin: 06/24/18 10:00 Dose: 40 mg Potassium Chloride (K-Dur 20 Meq Er Tab) 20 meq PO DAILY [facility] Last Admin: 06/24/18 10:00 Dose: 20 meq Thiamine HCl (Vitamin B1 Tab) 100 mg PO DAILY [facility] Last Admin: 06/24/18 10:04 Dose: 100 mg - Labs Labs: 06/24/18 07:09 06/24/18 07:09 - Constitutional Appears: Unkempt - Head Exam Head Exam: NORMAL INSPECTION, NORMOCEPHALIC - Eye Exam Eye Exam: EOMI, Normal appearance, PERRL Pupil Exam: NORMAL ACCOMODATION - ENT Exam ENT Exam: Mucous Membranes Moist - Respiratory Exam Respiratory Exam: Clear to Ausculation Bilateral, NORMAL BREATHING PATTERN. absent: Decreased Breath Sounds, Rhonchi, Wheezes - Cardiovascular Exam Cardiovascular Exam: REGULAR RHYTHM - GI/Abdominal Exam GI & Abdominal Exam: Soft, Normal Bowel Sounds. absent: Distended, Tenderness - Extremities Exam Extremities Exam: Normal Inspection. absent: Pedal Edema, Tenderness - Neurological Exam Neurological Exam: Alert, Awake, Oriented x3 Neuro motor strength exam: Left Upper Extremity: 5, Right Upper Extremity: 4, Left Lower Extremity: 5, Right Lower Extremity: 4 - Psychiatric Exam Psychiatric exam: Normal Affect, Normal Mood - Skin Skin Exam: Dry, Intact, Normal Color, Warm Assessment and Plan - Assessment and Plan (Free Text) Plan: History of Seizure disorder Neurology consulted - Dr. Pang - help appreciated - Patient is noncompliant with medication since discharge - Valproic Acid Level: <10 - restart Depakote 250mg po bid - restart Keppra 500mg po bid - Stressed the importance of medication compliance and alcohol cessation - seizure precautions Alcohol Abuse - Discussed the importance of alcohol cessation - CIWA protocol - aspiration precautions - fall precautions - restart Folic Acid, Ferrous sulfate, Thiamine History of Hypertension - Cont Home Norvasc 10mg po daily - monitor History of Anemia - Likely secondary to alcohol abuse - no active bleeding - ferrous sulfate 325 mg PO TID - monitor with AM labs Prophylaxis - DVT: Lovenox 40mg SC daily - GI: Protonix 40mg po daily - Heart Healthy Diet, soft - Physical Therapy - home with home services (will need to see if patient's brother is amendable). Disposition: Pending Neuro reccs. Will speak to case about arranging home with home services. All medical management as per Dr. Rosales. DW Dr. Rosales, Joanna Calvillo DO, PGY2
--- NOTE | 2018-06-24 16:13 | CARD ---
APPROVED REPORT Date of service: 06/22/2018 EKG Measurement Heart [id number] <Conclusion> Normal sinus rhythm Normal ECG
[2018-06-24] MEDS ORDERED: Divalproex 500 mg ER Tab PO SCH (19:40)
[2018-06-25 07:33] LABS: BASO % 0.6 % (0.0-2.0); EOS # 0.1 K/uL (0.0-0.7); HEMOGLOBIN 11.4 g/dL (12.0-18.0); LYMPH # 1.2 K/uL (1.0-4.3); MEAN CELL VOLUME 99.3 fL (80.0-94.0); MEAN CORPUSCULAR HEMOGLOBIN 35.1 pg (27.0-31.0); MONO # 0.6 K/uL (0.0-0.8); RBC 3.24 Mil/uL (4.40-5.90); WHITE BLOOD COUNT 4.3 K/uL (4.8-10.8)
[2018-06-25 07:41] LABS: EOS % 2.5 % (0.0-4.0); MEAN CORPUSCULAR HGB CONC 35.4 g/dL (33.0-37.0); MEAN PLATELET VOLUME 8.3 fL (7.2-11.7); MONO % 14.2 % (0.0-10.0); NEUT # 2.3 K/uL (1.8-7.0); NEUT % 54.7 % (50.0-75.0); NRBC % 0.3 % (0.0-2.0); RED CELL DISTRIBUTION WIDTH 16.9 % (11.5-14.5)
[2018-06-25 07:55] LABS: ALB/GLOB RATIO 0.9 (1.0-2.1); ALBUMIN 3.9 g/dL (3.5-5.0); ALT/SGPT 11 U/L (21-72); AST/SGOT 34 U/L (17-59); BLOOD UREA NITROGEN 17 mg/dL (9-20); CALCIUM 9.6 mg/dl (8.6-10.4); GFR NON-AFRICAN AMERICAN > 60
[2018-06-25 08:00] VITALS: O2SAT 99
[2018-06-25] MEDS: Pantoprazole 40 mg EC Tab PO SCH (09:42)
[2018-06-25] MEDS: Multiple Vitamins Tab PO SCH (09:42)
[2018-06-25] MEDS: Potassium Chloride 20 mEq ER Tab PO SCH (09:42)
[2018-06-25] MEDS: Enoxaparin 40 mg Syringe SC SCH (09:43)
--- NOTE | 2018-06-25 09:54 | CP.PCM.PN ---
Subjective - Date & Time of Evaluation Date of Evaluation: 06/25/18 Time of Evaluation: 09:00 - Subjective Subjective: Progress Note for Dr. Rosales's Service Patient was seen and examined at bedside. Patient reports he has some right knee pain, PT recommended a knee brace. Denied any seizure like activity. Denied fever, chills, headache, chest pain, SOB, abdominal pain, n/v/d/c, or urinary symptoms. Objective - Vital Signs/Intake and Output Vital Signs (last 24 hours): Temp Pulse Resp BP Pulse Ox 97.9 F 81 20 117/77 99 06/25/18 07:00 06/25/18 09:42 06/25/18 07:00 06/25/18 09:42 06/25/18 07:00 Intake and Output: 06/25/18 06/25/18 06:59 18:59 Intake Total 600 Output Total 1400 Balance -800 - Medications Medications: Current Medications Amlodipine Besylate (Norvasc) 10 mg PO DAILY [facility] Last Admin: 06/25/18 09:42 Dose: 10 mg Divalproex Sodium (Depakote Er) 500 mg PO BID [facility] Last Admin: 06/25/18 09:43 Dose: 500 mg Enoxaparin Sodium (Lovenox) 40 mg SC DAILY [facility] Last Admin: 06/25/18 09:43 Dose: 40 mg Ferrous Sulfate (Feosol) 325 mg PO TID [facility] Last Admin: 06/25/18 09:42 Dose: 325 mg Folic Acid (Folic Acid) 1 mg PO DAILY [facility] Last Admin: 06/25/18 09:42 Dose: 1 mg Levetiracetam 1,000 mg/ Sodium (Chloride) 110 mls @ 420 mls/hr IVPB ONCE ONE Stop: 06/25/18 10:15 Last Admin: 06/25/18 09:50 Dose: 420 mls/hr Levetiracetam (Keppra) 500 mg PO Q12H [facility] Lorazepam (Ativan) 1 mg PO Q4 PRN PRN Reason: Symptoms of alcohol withdrawl Last Admin: 06/24/18 00:48 Dose: 1 mg Multivitamins (Hexavitamin) 1 tab PO DAILY [facility] Last Admin: 06/25/18 09:42 Dose: 1 tab Pantoprazole Sodium (Protonix Ec Tab) 40 mg PO DAILY [facility] Last Admin: 06/25/18 09:42 Dose: 40 mg Potassium Chloride (K-Dur 20 Meq Er Tab) 20 meq PO DAILY [facility] Last Admin: 06/25/18 09:42 Dose: 20 meq Thiamine HCl (Vitamin B1 Tab) 100 mg PO DAILY [facility] Last Admin: 06/25/18 09:42 Dose: 100 mg - Labs Labs: 06/25/18 07:18 06/25/18 07:18 - Additional Findings Additional findings: - Constitutional Appears: Unkempt - Head Exam Head Exam: NORMAL INSPECTION, NORMOCEPHALIC - Eye Exam Eye Exam: EOMI, Normal appearance, PERRL Pupil Exam: NORMAL ACCOMODATION - ENT Exam ENT Exam: Mucous Membranes Moist - Respiratory Exam Respiratory Exam: Clear to Ausculation Bilateral, NORMAL BREATHING PATTERN. absent: Decreased Breath Sounds, Rhonchi, Wheezes - Cardiovascular Exam Cardiovascular Exam: REGULAR RHYTHM - GI/Abdominal Exam GI & Abdominal Exam: Soft, Normal Bowel Sounds. absent: Distended, Tenderness - Extremities Exam Extremities Exam: Normal Inspection. absent: Pedal Edema, Tenderness - Neurological Exam Neurological Exam: Alert, Awake, Oriented x3 Neuro motor strength exam: Left Upper Extremity: 5, Right Upper Extremity: 4, Left Lower Extremity: 5, Right Lower Extremity: 4 - Psychiatric Exam Psychiatric exam: Normal Affect, Normal Mood - Skin Skin Exam: Dry, Intact, Normal Color, Warm Assessment and Plan - Assessment and Plan (Free Text) Plan: History of Seizure disorder Neurology consulted - Dr. Pang - help appreciated - Patient is noncompliant with medication since discharge - Valproic Acid Level: <10, repeat <32.7 - Increased to Depakote 500mg po bid - restart Keppra 500mg po bid - Stressed the importance of medication compliance and alcohol cessation - seizure precautions Alcohol Abuse - Discussed the importance of alcohol cessation - CIWA protocol - aspiration precautions - fall precautions - restart Folic Acid, Ferrous sulfate, Thiamine History of Hypertension - Cont Home Norvasc 10 mg po daily - monitor History of Anemia - Likely secondary to alcohol abuse - no active bleeding - ferrous sulfate 325 mg PO TID - monitor with AM labs Prophylaxis - DVT: Lovenox 40mg SC daily - GI: Protonix 40mg po daily - Heart Healthy Diet, soft - Physical Therapy - home with home services (will need to see if patient's brother is amendable). Disposition: Patient is medically stable for discharge. Please continue taking the medications prescribed to you. PLEASE stop drinking alcohol, this will make you prone to more seizures and it does not allow the medications to prevent seizures to work properly. Please see Dr. Rosales in 1-2 weeks. Please supervisor picking crew the knee brace you need at a medical supply store. The walker will be delivered to your house. Please take care and be well! All medical management as per Dr. Rosales. DW Dr. Rosales, Joanna Calvillo DO, PGY2
[2018-06-25] MEDS ORDERED: levETIRAcetam 1,000 MG in Sodium Chloride 0.9% 100 ML IVPB ONE (10:00)
--- NOTE | 2018-06-25 13:18 | CP.PCM.PN ---
Subjective - Date & Time of Evaluation Date of Evaluation: 06/25/18 Time of Evaluation: 13:17 - Subjective Subjective: Neurology Progress Note - Dr Nicole Patient seen and examined at bedside. Per nursing no acute events overnight. Patient is doing well, no new seizures. Tolerating diet. Offers no other complaints at this time. Objective - Vital Signs/Intake and Output Vital Signs (last 24 hours): Temp Pulse Resp BP Pulse Ox 97.9 F 96 H 20 117/77 99 06/25/18 07:00 06/25/18 12:26 06/25/18 07:00 06/25/18 09:42 06/25/18 07:00 Intake and Output: 06/25/18 06/25/18 06:59 18:59 Intake Total 600 Output Total 1400 Balance -800 - Medications Medications: Current Medications Amlodipine Besylate (Norvasc) 10 mg PO DAILY [facility] Last Admin: 06/25/18 09:42 Dose: 10 mg Divalproex Sodium (Depakote Dr) 500 mg PO BID [facility] Enoxaparin Sodium (Lovenox) 40 mg SC DAILY [facility] Last Admin: 06/25/18 09:43 Dose: 40 mg Ferrous Sulfate (Feosol) 325 mg PO TID [facility] Last Admin: 06/25/18 13:15 Dose: 325 mg Folic Acid (Folic Acid) 1 mg PO DAILY [facility] Last Admin: 06/25/18 09:42 Dose: 1 mg Levetiracetam (Keppra) 250 mg PO QPM [facility] Levetiracetam (Keppra) 500 mg PO QAM [facility] Lorazepam (Ativan) 1 mg PO Q4 PRN PRN Reason: Symptoms of alcohol withdrawl Last Admin: 06/24/18 00:48 Dose: 1 mg Multivitamins (Hexavitamin) 1 tab PO DAILY [facility] Last Admin: 06/25/18 09:42 Dose: 1 tab Pantoprazole Sodium (Protonix Ec Tab) 40 mg PO DAILY [facility] Last Admin: 06/25/18 09:42 Dose: 40 mg Potassium Chloride (K-Dur 20 Meq Er Tab) 20 meq PO DAILY [facility] Last Admin: 06/25/18 09:42 Dose: 20 meq Thiamine HCl (Vitamin B1 Tab) 100 mg PO DAILY [facility] Last Admin: 06/25/18 09:42 Dose: 100 mg - Labs Labs: 06/25/18 07:18 06/25/18 07:18 - Constitutional Appears: Non-toxic, No Acute Distress, Unkempt - Head Exam Head Exam: ATRAUMATIC, NORMAL INSPECTION - Eye Exam Eye Exam: EOMI, Normal appearance - ENT Exam ENT Exam: Mucous Membranes Moist - Respiratory Exam Respiratory Exam: NORMAL BREATHING PATTERN - Cardiovascular Exam Cardiovascular Exam: REGULAR RHYTHM - Neurological Exam Neurological Exam: Alert, Awake, CN II-XII Intact, Oriented x3 Neuro motor strength exam: Left Upper Extremity: 5, Right Upper Extremity: 4, Left Lower Extremity: 5, Right Lower Extremity: 4 - Psychiatric Exam Psychiatric exam: Normal Affect - Skin Skin Exam: Normal Color, Warm Assessment and Plan - Assessment and Plan (Free Text) Assessment: Seizure disorder -Stable, afebrile -Valproic acid level subtherapeutic, 32.7 -Continue Depakote to 500mg PO BID -Patient to be discharge home today, will recommend continuing Keppra 500mg PO BID -Patient should follow up with outpatient Neurologist to see if Keppra can be tapered off as patient is non-complaint with his medications and abrupt withdrawal of Keppra can cause seizures -Counselled on alcohol cessation and importance of medication compliance Plan discussed with Dr Corey Akers DO PGY-2
[2018-06-25 15:49] VITALS: BP 117/79; PULSE 84; TEMP 98.1
[2018-06-25] MEDS ORDERED: Divalproex 500 mg DR Tab PO SCH (18:00)
--- NOTE | 2018-06-26 06:41 | HP ---
HISTORY OF PRESENT ILLNESS: Mr. Pina is a 57-year-old male with a history of alcoholism, neuropathy, chief complaint of failure to thrive with generalized pain and poor appetite, came to the ER with alcohol intoxication, advised admission. The patient has a long history of multiple admissions. PHYSICAL EXAMINATION: GENERAL: The patient is awake, alert and oriented. VITAL SIGNS: Temperature 98, pulse 90. HEENT: Within normal limits. NECK: Supple. CHEST: Symmetrical. HEART: Regular. ABDOMEN: Soft. EXTREMITIES: No edema. ASSESSMENT AND PLAN: The patient suffers from failure to thrive, alcoholism. The patient get bed rest, supportive care, intravenous fluids, for further evaluation. Nancie Rosales MD
== END 2018-06-25 17:38 | disposition home or self-care (01) | DRG 890 ==
LOC: C.ER 21:04 → C.6T 06-22 01:09
PROVIDERS: ADMIT Internal Medicine Pulmonary Disease; ATTEND Internal Medicine Pulmonary Disease
DX: G40.909 Epilepsy, unspecified, not intractable, without status epilepticus (principal); F10.20 Alcohol dependence, uncomplicated; R62.7 Adult failure to thrive; E11.9 Type 2 diabetes mellitus without complications; I10 Essential (primary) hypertension; I25.10 Atherosclerotic heart disease of native coronary artery without angina pectoris; M06.9 Rheumatoid arthritis, unspecified; F43.10 Post-traumatic stress disorder, unspecified; Y90.8 Blood alcohol level of 240 mg/100 ml or more; Z91.14 Patient's other noncompliance with medication regimen; I69.351 Hemiplegia and hemiparesis following cerebral infarction affecting right dominant side; Z79.899 Other long term (current) drug therapy; Z86.718 Personal history of other venous thrombosis and embolism; Z86.73 Personal history of transient ischemic attack (TIA), and cerebral infarction without residual deficits; Z90.49 Acquired absence of other specified parts of digestive tract

== ENCOUNTER 2018-06-27 01:56 | Emergency (ER) | payer MEDICAID ==
[2018-06-27 01:56] VITALS: BMI 29.7
--- NOTE | 2018-06-27 02:07 | C.PDOC ---
History Of Present Illness Patient presents to the ER after being found intoxicated in publics. Denies physical complaints at this time. Time Seen by Provider: 06/27/18 02:06 History Per: Patient History/Exam Limitations: no limitations Onset/Duration Of Symptoms: Hrs Current Symptoms Are (Timing): Still Present Suicide/Self Injury Attempted (Context): None Modifying Factor(s): Alcohol Severity: None Pain Scale Rating Of: 0 Associated Symptoms: denies: Depression, Suicidal Thoughts Involuntary Hold By: None Recent travel outside of the [place]: No Past Medical History Reviewed: Historical Data, Nursing Documentation, Vital Signs Vital Signs: Last Vital Signs Temp 98.2 F 06/27/18 02:06 Pulse 86 06/27/18 02:06 Resp 18 06/27/18 02:06 BP 135/77 06/27/18 02:06 Pulse Ox 99 06/27/18 02:06 - Medical History PMH: Anxiety, Arthritis, Bronchitis, CAD, Depression, Diabetes (Pt. did not disclose to policy writer typist, not aware), Fractures (RIGHT ARM), Gastritis, Gall Bladder Disease (s/p cholecystectomy), HTN, Post Traumatic Stress Disorder, Rheumatoid Arthritis, Seizures, Chronic Pain Denies: Chronic Kidney Disease Surgical History: Cholecystectomy - [facility] Procedures ALCOHOL DETOXIFICATION (07/04/15) APPLICATION OF SPLINT (03/20/13) CLOSURE SKIN & SUBCUTANEOUS NEC (08/14/13) DETOXIFICATION SERVICES FOR SUBSTANCE ABUSE TREATMENT (03/22/16) ESOPHAGOGASTRODUODENOSCOPY [EGD] W/CLOSED BIOPSY (02/16/15) OTHER GROUP THERAPY (03/12/13) PHYSICAL THERAPY NEC (07/04/15) TETANUS TOXOID ADMINIST (01/19/14) Family History: States: No Known Family Hx - Social History Hx Tobacco Use: No Hx Alcohol Use: Yes (daily) Hx Substance Use: No - Immunization History Hx Tetanus Toxoid Vaccination: No Hx Influenza Vaccination: No Hx Pneumococcal Vaccination: No Review Of Systems Constitutional: Negative for: Fever, Chills Cardiovascular: Negative for: Chest Pain, Palpitations Respiratory: Negative for: Cough, Shortness of Breath Gastrointestinal: Negative for: Nausea, Vomiting Physical Exam - Physical Exam Appears: Non-toxic, Other (ETOH on breath, no sign of injury) Skin: Warm, Dry Head: Normacephalic Oral Mucosa: Moist Chest: Symmetrical, No Tenderness Cardiovascular: Rhythm Regular Respiratory: No Rales, No Rhonchi, No Wheezing Gastrointestinal/Abdominal: Soft, No Tenderness Neurological/Psych: Oriented x3 ED Course And Treatment O2 Sat by Pulse Oximetry: 99 Pulse Ox Interpretation: Normal Reevaluation Time: 05:31 Reassessment Condition: Improved Disposition Counseled Patient/Family Regarding: Studies Performed, Diagnosis, Need For Followup - Disposition Referrals: [facility] at [facility] [place] [Outside] Disposition: HOME/ ROUTINE Disposition Time: 02:07 Condition: FAIR Instructions: Alcohol Abuse and Alcoholism (DC) - Clinical Impression Clinical Impression: Alcohol intoxication, Alcoholism /alcohol abuse - Scribe Statement The provider has reviewed the documentation as recorded by the Scribe Fabián Ramirez All medical record entries made by the Scribe were at my direction and personally dictated by me. I have reviewed the chart and agree that the record accurately reflects my personal performance of the history, physical exam, medical decision making, and the department course for this patient. I have also personally directed, reviewed, and agree with the discharge instructions and disposition.
[2018-06-27 02:10] VITALS: RESP 18
[2018-06-27 06:02] VITALS: BP 107/70; PULSE 84; TEMP 98.6; O2SAT 100
== END 2018-06-27 06:26 | disposition home or self-care (01) ==
LOC: C.ER 01:56 → SUPCPDRO 01:56 → C.ER 06:26
DX: F10.229 Alcohol dependence with intoxication, unspecified (principal); E11.9 Type 2 diabetes mellitus without complications; I25.10 Atherosclerotic heart disease of native coronary artery without angina pectoris

== ENCOUNTER 2018-06-27 22:58 | Emergency (ER) | payer MEDICAID ==
[2018-06-27 22:59] VITALS: BMI 29.7
--- NOTE | 2018-06-27 23:23 | C.PDOC ---
History Of Present Illness 57 year old male presents to the emergency department stating that he has had too much to drink today. He denies fever, chills, nausea, vomiting, and suicidal /homicidal ideation. Time Seen by Provider: 06/27/18 23:22 History Per: Patient History/Exam Limitations: no limitations Onset/Duration Of Symptoms: Hrs Current Symptoms Are (Timing): Still Present Suicide/Self Injury Attempted (Context): None Modifying Factor(s): Alcohol Associated Symptoms: denies: Suicidal Thoughts, Suicidal Plan Past Medical History Reviewed: Historical Data, Nursing Documentation, Vital Signs Vital Signs: Last Vital Signs Temp 97.6 F 06/28/18 03:25 Pulse 95 H 06/28/18 03:25 Resp 20 06/28/18 03:25 BP 114/66 06/28/18 03:25 Pulse Ox 96 06/28/18 03:25 - Medical History PMH: Anxiety, Arthritis, Bronchitis, CAD, Depression, Diabetes (Pt. 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 tester, not aware), Fractures (RIGHT ARM), Gastritis, Gall Bladder Disease (s/p cholecystectomy), HTN, Post Traumatic Stress Disorder, Rheumatoid Arthritis, Seizures, Chronic Pain Denies: Chronic Kidney Disease Surgical History: Cholecystectomy - [facility] Procedures ALCOHOL DETOXIFICATION (07/04/15) APPLICATION OF SPLINT (03/20/13) CLOSURE SKIN & SUBCUTANEOUS NEC (08/14/13) DETOXIFICATION SERVICES FOR SUBSTANCE ABUSE TREATMENT (03/22/16) ESOPHAGOGASTRODUODENOSCOPY [EGD] W/CLOSED BIOPSY (02/16/15) OTHER GROUP THERAPY (03/12/13) PHYSICAL THERAPY NEC (07/04/15) TETANUS TOXOID ADMINIST (01/19/14) Family History: States: Unknown Family Hx - Social History Hx Tobacco Use: No Hx Alcohol Use: Yes (daily) Hx Substance Use: No - Immunization History Hx Tetanus Toxoid Vaccination: No Hx Influenza Vaccination: No Hx Pneumococcal Vaccination: No Review Of Systems Constitutional: Negative for: Fever, Chills Gastrointestinal: Negative for: Nausea, Vomiting Neurological: Positive for: Altered Mental Status (intoxicated) Psych: Negative for: Suicidal ideation Physical Exam - Physical Exam Appears: Non-toxic, No Acute Distress Skin: Warm, Dry Head: Normacephalic Eye(s): bilateral: Normal Inspection Oral Mucosa: Moist Neck: Trachea Midline, Supple Chest: Symmetrical, No Tenderness Cardiovascular: Rhythm Regular, No Murmur Respiratory: No Rales, No Rhonchi, No Wheezing Neurological/Psych: Oriented x3 ED Course And Treatment Pulse Ox Interpretation: Normal Reevaluation Time: 04:40 Reassessment Condition: Improved Disposition Counseled Patient/Family Regarding: Studies Performed, Diagnosis, Need For Followup - Disposition Referrals: [facility] [Outside] Disposition: HOME/ ROUTINE Disposition Time: 23:23 Condition: FAIR Instructions: Alcohol Abuse and Alcoholism (DC) - Clinical Impression Clinical Impression: Chronic alcoholism, Alcohol intoxication - Scribe Statement The provider has reviewed the documentation as recorded by the Scribe (Jewel Schaeffer) Provider Attestation: All medical record entries made by the Scribe were at my direction and personally dictated by me. I have reviewed the chart and agree that the record accurately reflects my personal performance of the history, physical exam, medical decision making, and the department course for this patient. I have also personally directed, reviewed, and agree with the discharge instructions and disposition.
[2018-06-27 23:28] VITALS: RESP 20
[2018-06-28 03:27] VITALS: BP 114/66; TEMP 97.6; O2SAT 96
[2018-06-28 04:00] VITALS: PULSE 95
== END 2018-06-28 04:54 | disposition home or self-care (01) ==
LOC: C.ER 22:58
DX: F10.229 Alcohol dependence with intoxication, unspecified (principal); E11.9 Type 2 diabetes mellitus without complications; I25.10 Atherosclerotic heart disease of native coronary artery without angina pectoris

== ENCOUNTER 2018-07-01 23:33 | Emergency (ER) | payer MEDICAID ==
[2018-07-01 23:34] VITALS: BMI 29.7
[2018-07-01] MEDS ORDERED: Alum-Mag Hydrox-Simethicone Susp (30 mL) PO STA (23:59)
--- NOTE | 2018-07-02 00:04 | C.PDOC ---
History Of Present Illness 57-year-old male presents to the ED complaining of abdominal pain that began yesterday. History difficult to obtain secondary to patient's intoxication. He reports epigastric pain associated with nausea but no vomiting. Patient unclear if he had this pain when he was here last night. Denies any fever, chills, or diarrhea. According to triage, patient also reported he was tired and wanted to lie down. Patient is well known to the ER for alcohol abuse and bed seeking behavior. Time Seen by Provider: 07/01/18 23:43 Chief Complaint (Nursing): Substance Abuse History Per: Patient History/Exam Limitations: intoxication Onset/Duration Of Symptoms: Hrs Current Symptoms Are (Timing): Still Present Modifying Factor(s): Alcohol Involuntary Hold By: None Past Medical History Reviewed: Historical Data, Nursing Documentation, Vital Signs Vital Signs: Last Vital Signs Temp 99.6 F 07/02/18 04:46 Pulse 98 H 07/02/18 04:46 Resp 16 07/02/18 04:46 BP 125/73 07/02/18 04:46 Pulse Ox 96 07/02/18 04:46 - Medical History PMH: Anxiety, Arthritis, Bronchitis, CAD, Depression, Diabetes (Pt. did not disclose to singer songwriter, not aware), Fractures (RIGHT ARM), Gastritis, Gall Bladder Disease (s/p cholecystectomy), HTN, Post Traumatic Stress Disorder, Rheumatoid Arthritis, Seizures, Chronic Pain Denies: Chronic Kidney Disease Surgical History: Cholecystectomy - [facility] Procedures ALCOHOL DETOXIFICATION (07/04/15) APPLICATION OF SPLINT (03/20/13) CLOSURE SKIN & SUBCUTANEOUS NEC (08/14/13) DETOXIFICATION SERVICES FOR SUBSTANCE ABUSE TREATMENT (03/22/16) ESOPHAGOGASTRODUODENOSCOPY [EGD] W/CLOSED BIOPSY (02/16/15) OTHER GROUP THERAPY (03/12/13) PHYSICAL THERAPY NEC (07/04/15) TETANUS TOXOID ADMINIST (01/19/14) Family History: States: Unknown Family Hx - Social History Hx Tobacco Use: No Hx Alcohol Use: Yes (daily) Hx Substance Use: No - Immunization History Hx Tetanus Toxoid Vaccination: No Hx Influenza Vaccination: No Hx Pneumococcal Vaccination: No Review Of Systems Review Of Systems: ROS cannot be obtained secondary to pt's inabilty to answer questions. (ROS somewhat unreliable secondary to patient's intoxication) Constitutional: Negative for: Fever, Chills Gastrointestinal: Positive for: Nausea, Abdominal Pain. Negative for: Vomiting Psych: Positive for: Other (Alcohol intoxication). Negative for: Suicidal ideation, Withdrawal Physical Exam - Physical Exam Appears: No Acute Distress, Unkempt, Other (Dissheveled appearing) Skin: Warm, Dry Head: Normacephalic Eye(s): bilateral: Normal Inspection, EOMI Oral Mucosa: Drooling (excessive secretions), Other (Pasty mucous membranes; + Alcohol on breath) Neck: Normal ROM, Supple Chest: Symmetrical Cardiovascular: Rhythm Regular, No Murmur Respiratory: No Accessory Muscle Use, No Wheezing Gastrointestinal/Abdominal: Soft, Tenderness (minimal epigastric tenderness on palpation), No Mass, No Guarding, No Rebound Extremity: Bilateral: Atraumatic Neurological/Psych: Other (Appears lethargic, slurred speech) Gait: Other (uses wheel chair) Other Neurological Findings: No Facial Palsy Medical Decision Making Medical Decision Making: Initial Impression: Epigastric pain, alcohol intoxication Initial Plan: --Accucheck --Maalox Plus 30ml PO --Pending reassessment and clinical sobriety Finger stick is 98. 1:00am Patient endorsed to Dr. Pierson at this time, pending clinical sobriety. Disposition - Disposition Disposition Time: 01:00 Condition: STABLE - Clinical Impression Clinical Impression: Alcohol intoxication, Homelessness - Scribe Statement The provider has reviewed the documentation as recorded by the Scribe Leah Gunter Provider Attestation: All medical record entries made by the Rominaibe were at my direction and personally dictated by me. I have reviewed the chart and agree that the record accurately reflects my personal performance of the history, physical exam, medical decision making, and the department course for this patient. I have also personally directed, reviewed, and agree with the discharge instructions and disposition. Physician Patient Turnover Patient Signed Over To: Victoriano Pierson Handoff Comments: pending sobriety
[2018-07-02] MEDS ORDERED: Alum-Mag Hydrox-Simethicone Susp (30 mL) ONE (00:27)
[2018-07-02 02:25] VITALS: O2SAT 96
[2018-07-02 04:48] VITALS: BP 125/73; PULSE 98; RESP 16; TEMP 99.6
== END 2018-07-02 05:06 | disposition home or self-care (01) ==
LOC: SUPCPDRO 23:33 → C.ER 23:33
DX: R10.13 Epigastric pain (principal); F10.129 Alcohol abuse with intoxication, unspecified; Y90.9 Presence of alcohol in blood, level not specified; Z59.0 Homelessness

== ENCOUNTER 2018-07-02 22:50 | Emergency (ER) | payer MEDICAID ==
[2018-07-02 22:51] VITALS: BMI 29.7
--- NOTE | 2018-07-02 23:43 | C.PDOC ---
History Of Present Illness 57 year old male presents to the ED looking for a place to sleep. Patient states he has been drinking all day. Patient has multiple prior visits with similar presentation. Patient denies SI/HI, hallucinations, other complaints. Time Seen by Provider: 07/02/18 23:42 History Per: Patient History/Exam Limitations: intoxication Onset/Duration Of Symptoms: Hrs Current Symptoms Are (Timing): Still Present Suicide/Self Injury Attempted (Context): None Modifying Factor(s): Alcohol Associated Symptoms: denies: Depression, Suicidal Thoughts, Suicidal Plan Involuntary Hold By: None Recent travel outside of the [place]: No Additional History Per: Patient Past Medical History Reviewed: Historical Data, Nursing Documentation, Vital Signs Vital Signs: Last Vital Signs Temp 97.2 F L 07/02/18 23:43 Pulse 87 07/03/18 05:11 Resp 20 07/02/18 23:43 BP 137/65 07/03/18 05:11 Pulse Ox 95 07/03/18 05:11 - Medical History PMH: Anxiety, Arthritis, Bronchitis, CAD, Depression, Diabetes (Pt. did not disclose to inspector automatic typewriter, not aware), Fractures (RIGHT ARM), Gastritis, Gall Bladder Disease (s/p cholecystectomy), HTN, Post Traumatic Stress Disorder, Rheumatoid Arthritis, Seizures, Chronic Pain Denies: Chronic Kidney Disease Surgical History: Cholecystectomy - [facility] Procedures ALCOHOL DETOXIFICATION (07/04/15) APPLICATION OF SPLINT (03/20/13) CLOSURE SKIN & SUBCUTANEOUS NEC (08/14/13) DETOXIFICATION SERVICES FOR SUBSTANCE ABUSE TREATMENT (03/22/16) ESOPHAGOGASTRODUODENOSCOPY [EGD] W/CLOSED BIOPSY (02/16/15) OTHER GROUP THERAPY (03/12/13) PHYSICAL THERAPY NEC (07/04/15) TETANUS TOXOID ADMINIST (01/19/14) Family History: States: Unknown Family Hx - Social History Hx Tobacco Use: No Hx Alcohol Use: Yes (daily) Hx Substance Use: No - Immunization History Hx Tetanus Toxoid Vaccination: No Hx Influenza Vaccination: No Hx Pneumococcal Vaccination: No Review Of Systems Constitutional: Negative for: Fever, Chills Cardiovascular: Negative for: Chest Pain Respiratory: Negative for: Shortness of Breath Gastrointestinal: Negative for: Nausea, Vomiting, Abdominal Pain Skin: Negative for: Rash Neurological: Negative for: Weakness, Numbness Psych: Negative for: Depression, Suicidal ideation Physical Exam - Physical Exam Appears: Non-toxic, No Acute Distress Skin: Warm, Dry Head: Normacephalic Eye(s): bilateral: Normal Inspection Neck: Supple Chest: Symmetrical Cardiovascular: Rhythm Regular Respiratory: No Rales, No Rhonchi, No Wheezing Gastrointestinal/Abdominal: Soft, No Tenderness, No Guarding, No Rebound, No Other (no PEG tube) Extremity: No Tenderness, No Swelling Extremity: Bilateral: Atraumatic, Normal Color And Temperature, Normal ROM Neurological/Psych: Oriented x3, Normal Speech Gait: With Assistance (wheelchair) ED Course And Treatment O2 Sat by Pulse Oximetry: 96 (ON RA) Pulse Ox Interpretation: Normal Reevaluation Time: 05:14 Reassessment Condition: Improved Disposition Counseled Patient/Family Regarding: Studies Performed, Diagnosis, Need For Followup - Disposition Referrals: [facility] at [facility] [Outside] Disposition: HOME/ ROUTINE Disposition Time: 23:43 Condition: FAIR Instructions: Alcohol Abuse and Alcoholism (DC) - Clinical Impression Clinical Impression: Alcohol abuse with intoxication - Scribe Statement The provider has reviewed the documentation as recorded by the Scribe Woo Brown All medical record entries made by the Scribe were at my direction and personally dictated by me. I have reviewed the chart and agree that the record accurately reflects my personal performance of the history, physical exam, medical decision making, and the department course for this patient. I have also personally directed, reviewed, and agree with the discharge instructions and disposition.
[2018-07-02 23:46] VITALS: RESP 20; TEMP 97.2
[2018-07-03 05:12] VITALS: BP 137/65; PULSE 87
[2018-07-03 05:15] VITALS: O2SAT 96
== END 2018-07-03 05:41 | disposition home or self-care (01) ==
LOC: C.ER 22:50
DX: F10.129 Alcohol abuse with intoxication, unspecified (principal); Y90.9 Presence of alcohol in blood, level not specified

== ENCOUNTER 2018-07-05 01:11 | Emergency (ER) | payer MEDICAID ==
[2018-07-05 01:12] VITALS: BMI 29.7
--- NOTE | 2018-07-05 01:48 | C.PDOC ---
History Of Present Illness Patient presents to the ER via EMS after being found intoxicated in public. Denies physical complaints at this time. Time Seen by Provider: 07/05/18 01:47 Chief Complaint (Nursing): Substance Abuse History Per: Patient, EMS History/Exam Limitations: no limitations Onset/Duration Of Symptoms: Hrs Current Symptoms Are (Timing): Still Present Suicide/Self Injury Attempted (Context): None Modifying Factor(s): Alcohol Severity: None Pain Scale Rating Of: 0 Associated Symptoms: denies: Depression, Suicidal Thoughts Involuntary Hold By: None Recent travel outside of the [place]: No Past Medical History Reviewed: Historical Data, Nursing Documentation, Vital Signs Vital Signs: Last Vital Signs Temp 98.3 F 07/05/18 04:02 Pulse 94 H 07/05/18 04:02 Resp 16 07/05/18 04:02 BP 117/83 07/05/18 04:02 Pulse Ox 97 07/05/18 04:02 - Medical History PMH: Anxiety, Arthritis, Bronchitis, CAD, Depression, Diabetes (Pt. did not disclose to press writer, not aware), Fractures (RIGHT ARM), Gastritis, Gall Bladder Disease (s/p cholecystectomy), HTN, Post Traumatic Stress Disorder, Rheumatoid Arthritis, Seizures, Chronic Pain Denies: Chronic Kidney Disease Surgical History: Cholecystectomy - [facility] Procedures ALCOHOL DETOXIFICATION (07/04/15) APPLICATION OF SPLINT (03/20/13) CLOSURE SKIN & SUBCUTANEOUS NEC (08/14/13) DETOXIFICATION SERVICES FOR SUBSTANCE ABUSE TREATMENT (03/22/16) ESOPHAGOGASTRODUODENOSCOPY [EGD] W/CLOSED BIOPSY (02/16/15) OTHER GROUP THERAPY (03/12/13) PHYSICAL THERAPY NEC (07/04/15) TETANUS TOXOID ADMINIST (01/19/14) Family History: States: No Known Family Hx - Social History Hx Tobacco Use: No Hx Alcohol Use: Yes (daily) Hx Substance Use: No - Immunization History Hx Tetanus Toxoid Vaccination: No Hx Influenza Vaccination: No Hx Pneumococcal Vaccination: No Review Of Systems Constitutional: Negative for: Fever, Chills Cardiovascular: Negative for: Chest Pain, Palpitations Respiratory: Negative for: Cough, Shortness of Breath Gastrointestinal: Negative for: Nausea, Vomiting Physical Exam - Physical Exam Appears: Non-toxic, Other (ETOH on breath, no sign of injury) Skin: Warm, Dry Head: Normacephalic Oral Mucosa: Moist Chest: Symmetrical, No Tenderness Cardiovascular: Rhythm Regular Respiratory: No Rales, No Rhonchi, No Wheezing Gastrointestinal/Abdominal: Soft, No Tenderness, Other (Peg tube) Neurological/Psych: Oriented x3 ED Course And Treatment O2 Sat by Pulse Oximetry: 99 (Room air) Pulse Ox Interpretation: Normal Reevaluation Time: 05:08 Reassessment Condition: Improved Disposition Counseled Patient/Family Regarding: Studies Performed, Diagnosis, Need For Followup - Disposition Referrals: [facility] at [facility] [Outside] Disposition: HOME/ ROUTINE Disposition Time: 01:48 Condition: FAIR Instructions: Alcohol Abuse and Alcoholism (DC) Forms: [employer] (Citizen [place]) - Clinical Impression Clinical Impression: Alcohol intoxication - Scribe Statement The provider has reviewed the documentation as recorded by the Scribe Fabián Ramirez All medical record entries made by the Scribe were at my direction and personally dictated by me. I have reviewed the chart and agree that the record accurately reflects my personal performance of the history, physical exam, medical decision making, and the department course for this patient. I have also personally directed, reviewed, and agree with the discharge instructions and disposition.
[2018-07-05 04:02] VITALS: TEMP 98.3
[2018-07-05 05:57] VITALS: BP 132/66; PULSE 75; RESP 18; O2SAT 98
== END 2018-07-05 05:57 | disposition home or self-care (01) ==
LOC: C.ER 01:11
DX: F10.129 Alcohol abuse with intoxication, unspecified (principal); E11.9 Type 2 diabetes mellitus without complications; I25.10 Atherosclerotic heart disease of native coronary artery without angina pectoris

== ENCOUNTER 2018-07-05 22:49 | Emergency (ER) | payer MEDICAID ==
[2018-07-05 22:50] VITALS: BMI 29.7
--- NOTE | 2018-07-05 22:58 | C.PDOC ---
History Of Present Illness 57 year old male presents to the ED requesting a place to stay. Contrary to triage, patient reports he does not have chest pain. He states he was drinking and needs a place to stay. He denies any SI/HI, hallucinations, or any other physical complaints. Time Seen by Provider: 07/05/18 22:56 History/Exam Limitations: no limitations Onset/Duration Of Symptoms: Days Current Symptoms Are (Timing): Still Present Suicide/Self Injury Attempted (Context): None Modifying Factor(s): Alcohol Associated Symptoms: denies: Suicidal Thoughts Past Medical History Reviewed: Historical Data, Nursing Documentation, Vital Signs Vital Signs: Last Vital Signs Temp 98 F 07/06/18 01:50 Pulse 88 07/06/18 03:30 Resp 14 07/06/18 03:30 BP 125/65 07/06/18 03:30 Pulse Ox 93 L 07/06/18 03:30 - Medical History PMH: Anxiety, Arthritis, Bronchitis, CAD, Depression, Diabetes (Pt. did not disclose to credit underwriter, not aware), Fractures (RIGHT ARM), Gastritis, Gall Bladder Disease (s/p cholecystectomy), HTN, Post Traumatic Stress Disorder, Rheumatoid Arthritis, Seizures, Chronic Pain Denies: Chronic Kidney Disease Surgical History: Cholecystectomy - [facility] Procedures ALCOHOL DETOXIFICATION (07/04/15) APPLICATION OF SPLINT (03/20/13) CLOSURE SKIN & SUBCUTANEOUS NEC (08/14/13) DETOXIFICATION SERVICES FOR SUBSTANCE ABUSE TREATMENT (03/22/16) ESOPHAGOGASTRODUODENOSCOPY [EGD] W/CLOSED BIOPSY (02/16/15) OTHER GROUP THERAPY (03/12/13) PHYSICAL THERAPY NEC (07/04/15) TETANUS TOXOID ADMINIST (01/19/14) Family History: States: No Known Family Hx - Social History Hx Tobacco Use: No Hx Alcohol Use: Yes (daily) Hx Substance Use: No - Immunization History Hx Tetanus Toxoid Vaccination: No Hx Influenza Vaccination: No Hx Pneumococcal Vaccination: No Review Of Systems Constitutional: Positive for: Other (Intoxicated) Psych: Negative for: Depression, Suicidal ideation Physical Exam - Physical Exam Appears: Non-toxic, Other (Alcohol on breath ) Skin: Warm, Dry Head: Normacephalic Oral Mucosa: Moist Neck: Normal ROM Chest: Symmetrical Cardiovascular: Rhythm Regular Respiratory: No Rales, No Rhonchi, No Wheezing Gastrointestinal/Abdominal: Soft, No Tenderness Gait: With Assistance (Ambulates in wheelchair) ED Course And Treatment - Laboratory Results Result Diagrams: 07/05/18 23:22 07/05/18 23:22 ECG: Interpreted By Me, Viewed By Me ECG Rhythm: Sinus Rhythm (96), Nonspecific Changes O2 Sat by Pulse Oximetry: 95 (RA) Pulse Ox Interpretation: Normal - Radiology CXR: Interpreted by Me, Viewed By Me CXR Interpretation: No: Infiltrates, Fracture, Pnemothorax Disposition Counseled Patient/Family Regarding: Studies Performed, Diagnosis, Need For Followup - Disposition Referrals: [facility] at [facility] [Outside] Disposition: HOME/ ROUTINE Disposition Time: 22:57 Condition: FAIR Instructions: Alcohol Abuse and Alcoholism (DC) - Clinical Impression Clinical Impression: Alcohol abuse with intoxication - Scribe Statement The provider has reviewed the documentation as recorded by the Scribe Karissa Sousa All medical record entries made by the Scribe were at my direction and personally dictated by me. I have reviewed the chart and agree that the record accurately reflects my personal performance of the history, physical exam, medical decision making, and the department course for this patient. I have also personally directed, reviewed, and agree with the discharge instructions and disposition.
[2018-07-05] MEDS ORDERED: Aspirin 325 mg EC Tablets PO STA (23:18)
[2018-07-05 23:25] LABS: BASO % 0.8 % (0.0-2.0); EOS # 0.1 K/uL (0.0-0.7); HEMOGLOBIN 10.6 g/dL (12.0-18.0); LYMPH # 1.9 K/uL (1.0-4.3); LYMPH % 41.7 % (20.0-40.0); MEAN CELL VOLUME 100.2 fL (80.0-94.0); MEAN CORPUSCULAR HEMOGLOBIN 35.6 pg (27.0-31.0); MEAN CORPUSCULAR HGB CONC 35.5 g/dL (33.0-37.0); MEAN PLATELET VOLUME 8.1 fL (7.2-11.7); MONO # 0.6 K/uL (0.0-0.8); MONO % 12.8 % (0.0-10.0); NEUT # 1.9 K/uL (1.8-7.0); NEUT % 42.7 % (50.0-75.0); NRBC % 0.2 % (0.0-2.0); RBC 2.97 Mil/uL (4.40-5.90); RED CELL DISTRIBUTION WIDTH 15.8 % (11.5-14.5); WHITE BLOOD COUNT 4.5 K/uL (4.8-10.8)
[2018-07-05 23:45] LABS: ALBUMIN 4.4 g/dL (3.5-5.0); ALT/SGPT 13 U/L (21-72); AST/SGOT 34 U/L (17-59); BLOOD UREA NITROGEN 13 mg/dL (9-20); CALCIUM 9.3 mg/dl (8.6-10.4); GFR NON-AFRICAN AMERICAN > 60
[2018-07-06 01:50] VITALS: TEMP 98
[2018-07-06 03:31] VITALS: PULSE 88; RESP 14
[2018-07-06 05:28] VITALS: O2SAT 95
[2018-07-06 06:40] VITALS: BP 149/75
--- NOTE | 2018-07-06 09:54 | RAD ---
Date of service: 07/05/2018 PROCEDURE: CHEST RADIOGRAPH, 1 VIEW HISTORY: chest pain COMPARISON: Chest radiograph dated 06/10/2018. FINDINGS: LUNGS: Clear. PLEURA: Stable mild elevation of the right hemidiaphragm. No pneumothorax or pleural fluid seen. CARDIOVASCULAR: No mediastinal silhouette stably prominent. OSSEOUS STRUCTURES: Unchanged. VISUALIZED UPPER ABDOMEN: Right upper quadrant surgical clips redemonstrated. OTHER FINDINGS: None. IMPRESSION: No active disease.
--- NOTE | 2018-07-07 12:41 | CARD ---
APPROVED REPORT Date of service: 07/05/2018 EKG Measurement Heart [id number] <Conclusion> Normal sinus rhythm Normal ECG
== END 2018-07-06 06:41 | disposition home or self-care (01) ==
LOC: C.ER 22:49
DX: F10.129 Alcohol abuse with intoxication, unspecified (principal); E11.9 Type 2 diabetes mellitus without complications

== ENCOUNTER 2018-07-06 22:24 | Emergency (ER) | payer MEDICAID ==
[2018-07-06 22:24] VITALS: BMI 29.7
--- NOTE | 2018-07-06 22:32 | C.PDOC ---
History Of Present Illness 57 year old male presents to the ED requesting for a place to stay. Patient admits to drinking alcohol today and has multiple prior visits to the ED. Patient denies SI/HI, hallucinations, other complaints. Time Seen by Provider: 07/06/18 22:30 History Per: Patient History/Exam Limitations: intoxication Onset/Duration Of Symptoms: Hrs Current Symptoms Are (Timing): Still Present Suicide/Self Injury Attempted (Context): None Modifying Factor(s): Alcohol Associated Symptoms: denies: Depression, Suicidal Thoughts, Suicidal Plan Involuntary Hold By: None Recent travel outside of the [place]: No Additional History Per: Patient Past Medical History Reviewed: Historical Data, Nursing Documentation, Vital Signs Vital Signs: Last Vital Signs Temp 97.6 F 07/06/18 22:57 Pulse 88 07/06/18 22:57 Resp 20 07/06/18 22:57 BP 121/80 07/06/18 22:57 Pulse Ox 95 07/06/18 22:57 - Medical History PMH: Anxiety, Arthritis, Bronchitis, CAD, Depression, Diabetes (Pt. did not disclose to quality analyst/technical writer, not aware), Fractures (RIGHT ARM), Gastritis, Gall Bladder Disease (s/p cholecystectomy), HTN, Post Traumatic Stress Disorder, Rheumatoid Arthritis, Seizures, Chronic Pain Denies: Chronic Kidney Disease Surgical History: Cholecystectomy - [facility] Procedures ALCOHOL DETOXIFICATION (07/04/15) APPLICATION OF SPLINT (03/20/13) CLOSURE SKIN & SUBCUTANEOUS NEC (08/14/13) DETOXIFICATION SERVICES FOR SUBSTANCE ABUSE TREATMENT (03/22/16) ESOPHAGOGASTRODUODENOSCOPY [EGD] W/CLOSED BIOPSY (02/16/15) OTHER GROUP THERAPY (03/12/13) PHYSICAL THERAPY NEC (07/04/15) TETANUS TOXOID ADMINIST (01/19/14) Family History: States: Unknown Family Hx - Social History Hx Tobacco Use: No Hx Alcohol Use: Yes (daily) Hx Substance Use: No - Immunization History Hx Tetanus Toxoid Vaccination: No Hx Influenza Vaccination: No Hx Pneumococcal Vaccination: No Review Of Systems Constitutional: Negative for: Fever, Chills Cardiovascular: Negative for: Chest Pain Respiratory: Negative for: Shortness of Breath Gastrointestinal: Negative for: Nausea, Vomiting, Abdominal Pain Skin: Negative for: Rash Neurological: Negative for: Weakness, Numbness Psych: Negative for: Depression, Suicidal ideation Physical Exam - Physical Exam Appears: Non-toxic, No Acute Distress Skin: Warm, Dry Head: Normacephalic Eye(s): bilateral: Normal Inspection Neck: Supple Chest: Symmetrical Cardiovascular: Rhythm Regular Respiratory: No Rales, No Rhonchi, No Wheezing Gastrointestinal/Abdominal: Soft, No Tenderness, No Guarding, No Rebound Extremity: No Tenderness, No Swelling Extremity: Bilateral: Atraumatic, Normal Color And Temperature, Normal ROM Neurological/Psych: Oriented x3, Normal Speech Gait: With Assistance (wheelchair) ED Course And Treatment O2 Sat by Pulse Oximetry: 95 (ON RA) Pulse Ox Interpretation: Normal Disposition Counseled Patient/Family Regarding: Studies Performed, Diagnosis, Need For Followup - Disposition Referrals: [facility] at [facility] [Outside] Disposition: HOME/ ROUTINE Disposition Time: 22:31 Condition: FAIR Instructions: Alcohol Abuse and Alcoholism (DC) - Clinical Impression Clinical Impression: Alcohol abuse, Alcoholic intoxication - Scribe Statement The provider has reviewed the documentation as recorded by the Scribe Woo Brown All medical record entries made by the Scribe were at my direction and personally dictated by me. I have reviewed the chart and agree that the record accurately reflects my personal performance of the history, physical exam, medical decision making, and the department course for this patient. I have also personally directed, reviewed, and agree with the discharge instructions and disposition.
[2018-07-06] MEDS ORDERED: Ammonia 2% Inhalant ONE (22:54)
[2018-07-07 05:32] VITALS: BP 117/86; PULSE 89; RESP 20; TEMP 98.3; O2SAT 100
== END 2018-07-07 05:40 | disposition home or self-care (01) ==
LOC: C.ER 22:24
DX: F10.129 Alcohol abuse with intoxication, unspecified (principal); Y90.9 Presence of alcohol in blood, level not specified

== ENCOUNTER 2018-07-07 20:54 | Emergency (ER) | payer MEDICAID ==
[2018-07-07 20:55] VITALS: BMI 29.7
--- NOTE | 2018-07-07 21:22 | C.PDOC ---
History Of Present Illness 57-year-old male, PMHx includes EtOH Abuse, presents to the emergency department with complaints of public intoxication. Patient has a Hx of multiple visits to ED for same complaint. No HI/SI at this time. Time Seen by Provider: 07/07/18 21:21 Chief Complaint (Nursing): Substance Abuse History Per: Patient History/Exam Limitations: intoxication Past Medical History Reviewed: Historical Data, Nursing Documentation, Vital Signs Vital Signs: Last Vital Signs Temp 97.6 F 07/07/18 21:06 Pulse 96 H 07/07/18 21:06 Resp 16 07/07/18 21:06 BP 122/69 07/07/18 21:06 Pulse Ox 97 07/07/18 21:44 - Medical History PMH: Anxiety, Arthritis, Bronchitis, CAD, Depression, Diabetes (Pt. did not disclose to commercial lines underwriter, not aware), Fractures (RIGHT ARM), Gastritis, Gall Bladder Disease (s/p cholecystectomy), HTN, Post Traumatic Stress Disorder, Rheumatoid Arthritis, Seizures, Chronic Pain Denies: Chronic Kidney Disease Surgical History: Cholecystectomy - [facility] Procedures ALCOHOL DETOXIFICATION (07/04/15) APPLICATION OF SPLINT (03/20/13) CLOSURE SKIN & SUBCUTANEOUS NEC (08/14/13) DETOXIFICATION SERVICES FOR SUBSTANCE ABUSE TREATMENT (03/22/16) ESOPHAGOGASTRODUODENOSCOPY [EGD] W/CLOSED BIOPSY (02/16/15) OTHER GROUP THERAPY (03/12/13) PHYSICAL THERAPY NEC (07/04/15) TETANUS TOXOID ADMINIST (01/19/14) Family History: States: No Known Family Hx - Social History Hx Tobacco Use: No Hx Alcohol Use: Yes (daily) Hx Substance Use: No - Immunization History Hx Tetanus Toxoid Vaccination: No Hx Influenza Vaccination: No Hx Pneumococcal Vaccination: No Review Of Systems Psych: Negative for: Psychosis, Suicidal ideation, Withdrawal Physical Exam - Physical Exam Appears: Non-toxic, No Acute Distress, Unkempt, Other (EtOH on breath) Skin: Warm, Dry, No Rash, No Jaundice Head: Atraumatic, Normacephalic Eye(s): bilateral: Normal Inspection Nose: Normal Oral Mucosa: Moist Lips: Normal Appearing Neck: Normal ROM Chest: Symmetrical Cardiovascular: Rhythm Regular, No Murmur Respiratory: Normal Breath Sounds, No Accessory Muscle Use Gastrointestinal/Abdominal: Soft, No Tenderness Extremity: Normal ROM, Capillary Refill (<2 seconds), No Deformity ED Course And Treatment O2 Sat by Pulse Oximetry: 97 Disposition Counseled Patient/Family Regarding: Studies Performed, Diagnosis - Disposition Referrals: [facility] [Outside] Disposition: HOME/ ROUTINE Disposition Time: 21:21 Condition: FAIR Instructions: Alcohol Abuse and Alcoholism (DC) Forms: [employer] (Armenian) - Clinical Impression Clinical Impression: Alcohol abuse, daily use - Scribe Statement The provider has reviewed the documentation as recorded by the Scribe (Florinda Valentino) Provider Attestation: All medical record entries made by the Scribe were at my direction and personally dictated by me. I have reviewed the chart and agree that the record accurately reflects my personal performance of the history, physical exam, medical decision making, and the department course for this patient. I have also personally directed, reviewed, and agree with the discharge instructions and disposition. Physician Patient Turnover Patient Signed Over To: Faisal Peck Handoff Comments: 23:00. Pending sobriety
[2018-07-08 01:23] VITALS: BP 131/74; PULSE 88; RESP 20; TEMP 98.1; O2SAT 98
== END 2018-07-08 01:37 | disposition home or self-care (01) ==
LOC: C.ER 20:54
DX: F10.10 Alcohol abuse, uncomplicated (principal)

== ENCOUNTER 2018-07-08 22:26 | Emergency (ER) | payer MEDICAID ==
[2018-07-08 22:27] VITALS: BMI 29.7
--- NOTE | 2018-07-09 00:46 | C.PDOC ---
History Of Present Illness 57 y/o male brought in by ambulance for public intoxication. As per EMS patient was found sleeping on the street. Patient admits to drinking alcohol today. On arrival patient offers no complaints and is requesting a place to stay the night. Time Seen by Provider: 07/09/18 00:42 Chief Complaint (Nursing): Substance Abuse History Per: Patient History/Exam Limitations: intoxication Onset/Duration Of Symptoms: Days Current Symptoms Are (Timing): Still Present Modifying Factor(s): Alcohol Associated Symptoms: denies: Suicidal Thoughts Involuntary Hold By: None Past Medical History Reviewed: Historical Data, Nursing Documentation, Vital Signs Vital Signs: Last Vital Signs Temp 98 F 07/09/18 03:21 Pulse 88 07/09/18 03:21 Resp 18 07/09/18 03:21 BP 130/72 07/09/18 03:21 Pulse Ox 98 07/09/18 03:21 - Medical History PMH: Anxiety, Arthritis, Bronchitis, CAD, Depression, Diabetes (Pt. did not disclose to physician underwriter, not aware), Fractures (RIGHT ARM), Gastritis, Gall Bladder Disease (s/p cholecystectomy), HTN, Post Traumatic Stress Disorder, Rheumatoid Arthritis, Seizures, Chronic Pain Denies: Chronic Kidney Disease Surgical History: Cholecystectomy - [facility] Procedures ALCOHOL DETOXIFICATION (07/04/15) APPLICATION OF SPLINT (03/20/13) CLOSURE SKIN & SUBCUTANEOUS NEC (08/14/13) DETOXIFICATION SERVICES FOR SUBSTANCE ABUSE TREATMENT (03/22/16) ESOPHAGOGASTRODUODENOSCOPY [EGD] W/CLOSED BIOPSY (02/16/15) OTHER GROUP THERAPY (03/12/13) PHYSICAL THERAPY NEC (07/04/15) TETANUS TOXOID ADMINIST (01/19/14) Family History: States: Unknown Family Hx - Social History Hx Tobacco Use: No Hx Alcohol Use: Yes (daily) Hx Substance Use: No - Immunization History Hx Tetanus Toxoid Vaccination: No Hx Influenza Vaccination: No Hx Pneumococcal Vaccination: No Review Of Systems Review Of Systems: ROS cannot be obtained secondary to pt's inabilty to answer questions. Physical Exam - Physical Exam Appears: Non-toxic, No Acute Distress Skin: Warm, Dry Head: Atraumatic, Normacephalic Eye(s): bilateral: Normal Inspection Oral Mucosa: Moist Neck: Normal, Normal ROM, Trachea Midline, No Midline Cervical Tenderness, No Paracervical Tenderness, Supple, Other (negative kernig's and brudzinskis) Chest: Symmetrical Cardiovascular: Rhythm Regular Respiratory: No Rales, No Rhonchi, No Wheezing Gastrointestinal/Abdominal: Soft, No Tenderness, No Distention Extremity: Bilateral: Atraumatic, Normal ROM Neurological/Psych: Other (Appears intoxicated, +Alcohol on breath) ED Course And Treatment O2 Sat by Pulse Oximetry: 96 (RA) Pulse Ox Interpretation: Normal Medical Decision Making Medical Decision Making: Plan: * pending clinical sobriety Patient is resting comfortably in stretcher. [id number] clinically sober, no signs of withdrawal pending transport Disposition - Disposition Disposition Time: 05:23 Condition: GOOD Forms: [facility] (Kyrgyz) - Clinical Impression Clinical Impression: H/O alcohol abuse, Alcohol abuse, daily use - Scribe Statement The provider has reviewed the documentation as recorded by the Scribe (Leah Gunter) Provider Attestation: All medical record entries made by the Scribe were at my direction and personally dictated by me. I have reviewed the chart and agree that the record accurately reflects my personal performance of the history, physical exam, medical decision making, and the department course for this patient. I have also personally directed, reviewed, and agree with the discharge instructions and disposition.
[2018-07-09 06:10] VITALS: BP 133/77; PULSE 84; RESP 20; TEMP 97.7; O2SAT 97
== END 2018-07-09 06:58 | disposition home or self-care (01) ==
LOC: C.ER 22:26
DX: F10.10 Alcohol abuse, uncomplicated (principal); E11.9 Type 2 diabetes mellitus without complications; I25.10 Atherosclerotic heart disease of native coronary artery without angina pectoris

== ENCOUNTER 2018-07-11 21:25 | Emergency (ER) | payer MEDICAID ==
[2018-07-11 21:25] VITALS: BMI 29.7
[2018-07-11 21:54] VITALS: O2SAT 97
--- NOTE | 2018-07-11 22:17 | C.PDOC ---
History Of Present Illness 57 year old male presents to the emergency department under the influence of alcohol. Patient is requesting a place to stay for the night. Time Seen by Provider: 07/11/18 22:16 Chief Complaint (Nursing): Substance Abuse History Per: Patient History/Exam Limitations: no limitations Onset/Duration Of Symptoms: Hrs Current Symptoms Are (Timing): Still Present Suicide/Self Injury Attempted (Context): None Modifying Factor(s): Alcohol Associated Symptoms: denies: Suicidal Thoughts, Suicidal Plan Involuntary Hold By: None Past Medical History Reviewed: Historical Data, Nursing Documentation, Vital Signs Vital Signs: Last Vital Signs Temp 98.1 F 07/11/18 21:49 Pulse 86 07/11/18 21:49 Resp 20 07/11/18 21:49 BP 129/87 07/11/18 21:49 Pulse Ox 97 07/11/18 22:46 - Medical History PMH: Anxiety, Arthritis, Bronchitis, CAD, Depression, Diabetes (Pt. did not disclose to play writer, not aware), Fractures (RIGHT ARM), Gastritis, Gall Bladder Disease (s/p cholecystectomy), HTN, Post Traumatic Stress Disorder, Rheumatoid Arthritis, Seizures, Chronic Pain Denies: Chronic Kidney Disease Surgical History: Cholecystectomy - [facility] Procedures ALCOHOL DETOXIFICATION (07/04/15) APPLICATION OF SPLINT (03/20/13) CLOSURE SKIN & SUBCUTANEOUS NEC (08/14/13) DETOXIFICATION SERVICES FOR SUBSTANCE ABUSE TREATMENT (03/22/16) ESOPHAGOGASTRODUODENOSCOPY [EGD] W/CLOSED BIOPSY (02/16/15) OTHER GROUP THERAPY (03/12/13) PHYSICAL THERAPY NEC (07/04/15) TETANUS TOXOID ADMINIST (01/19/14) Family History: States: No Known Family Hx - Social History Hx Tobacco Use: No Hx Alcohol Use: Yes (daily) Hx Substance Use: No - Immunization History Hx Tetanus Toxoid Vaccination: No Hx Influenza Vaccination: No Hx Pneumococcal Vaccination: No Review Of Systems Review Of Systems: ROS cannot be obtained secondary to pt's inabilty to answer questions. Physical Exam - Physical Exam Appears: Non-toxic, No Acute Distress Skin: Warm, Dry Head: Normacephalic Eye(s): bilateral: Normal Inspection, PERRL, EOMI Neck: Trachea Midline, Supple Chest: Symmetrical, No Tenderness Cardiovascular: Rhythm Regular, No Murmur Respiratory: No Rales, No Rhonchi, No Wheezing Extremity: Normal ROM (all extremities) Pulses: Left Dorsalis Pedis: Normal, Right Dorsalis Pedis: Normal Neurological/Psych: Oriented x3, Normal Speech, Normal Cognition ED Course And Treatment O2 Sat by Pulse Oximetry: 97 (RA) Pulse Ox Interpretation: Normal Reevaluation Time: 05:02 Reassessment Condition: Improved Disposition Counseled Patient/Family Regarding: Studies Performed, Diagnosis - Disposition Referrals: [facility] [Outside] Disposition: HOME/ ROUTINE Disposition Time: 22:16 Condition: FAIR Instructions: Alcohol Abuse and Alcoholism (DC) Forms: [employer] (Maltese) - Clinical Impression Clinical Impression: Alcoholism /alcohol abuse, Acute alcohol intoxication - Scribe Statement The provider has reviewed the documentation as recorded by the Scribe (Jewel Schaeffer) Provider Attestation: All medical record entries made by the Scribe were at my direction and personally dictated by me. I have reviewed the chart and agree that the record accurately reflects my personal performance of the history, physical exam, medical decision making, and the department course for this patient. I have also personally directed, reviewed, and agree with the discharge instructions and disposition.
[2018-07-12 05:06] VITALS: PULSE 86
[2018-07-12 06:02] VITALS: BP 132/78; RESP 18; TEMP 98.3
== END 2018-07-12 06:00 | disposition home or self-care (01) ==
LOC: C.ER 21:25
DX: F10.229 Alcohol dependence with intoxication, unspecified (principal); Y90.9 Presence of alcohol in blood, level not specified

== ENCOUNTER 2018-07-13 21:14 | Emergency (ER) | payer MEDICAID ==
[2018-07-13 21:16] VITALS: BMI 29.7
--- NOTE | 2018-07-13 22:27 | C.PDOC ---
History Of Present Illness The patient is brought to the ED by EMS for evaluation of acute alcohol intoxication. Patient is familiar to this ED and has had many prior evaluations with similar presentations. He admits to drinking earlier today, presents with no obvious signs of trauma, and has no other complaints at this time. Time Seen by Provider: 07/13/18 22:23 Chief Complaint (Nursing): Substance Abuse History Per: Patient, EMS History/Exam Limitations: intoxication Onset/Duration Of Symptoms: Hrs Current Symptoms Are (Timing): Still Present Suicide/Self Injury Attempted (Context): None Modifying Factor(s): Alcohol Severity: None Pain Scale Rating Of: 0 Associated Symptoms: denies: Suicidal Thoughts, Suicidal Plan Involuntary Hold By: None Recent travel outside of the [place]: No Additional History Per: Patient, EMS Past Medical History Reviewed: Historical Data, Nursing Documentation, Vital Signs Vital Signs: Last Vital Signs Temp 98 F 07/14/18 02:39 Pulse 81 07/14/18 02:39 Resp 17 07/14/18 02:39 BP 126/79 07/14/18 02:39 Pulse Ox 96 07/14/18 02:39 - Medical History PMH: Anxiety, Arthritis, Bronchitis, CAD, Depression, Diabetes (Pt. did not disclose to aligner typewriter, not aware), Fractures (RIGHT ARM), Gastritis, Gall Bladder Disease (s/p cholecystectomy), HTN, Post Traumatic Stress Disorder, Rheumatoid Arthritis, Seizures, Chronic Pain Denies: Chronic Kidney Disease Surgical History: Cholecystectomy - [facility] Procedures ALCOHOL DETOXIFICATION (07/04/15) APPLICATION OF SPLINT (03/20/13) CLOSURE SKIN & SUBCUTANEOUS NEC (08/14/13) DETOXIFICATION SERVICES FOR SUBSTANCE ABUSE TREATMENT (03/22/16) ESOPHAGOGASTRODUODENOSCOPY [EGD] W/CLOSED BIOPSY (02/16/15) OTHER GROUP THERAPY (03/12/13) PHYSICAL THERAPY NEC (07/04/15) TETANUS TOXOID ADMINIST (01/19/14) Family History: States: Unknown Family Hx - Social History Hx Tobacco Use: No Hx Alcohol Use: Yes (daily) Hx Substance Use: No - Immunization History Hx Tetanus Toxoid Vaccination: No Hx Influenza Vaccination: No Hx Pneumococcal Vaccination: No Review Of Systems Constitutional: Negative for: Fever, Chills Cardiovascular: Negative for: Chest Pain, Palpitations Respiratory: Negative for: Cough, Shortness of Breath Gastrointestinal: Negative for: Nausea, Vomiting, Abdominal Pain Skin: Negative for: Rash, Lesions, Jaundice, Bruising Neurological: Negative for: Weakness, Numbness Psych: Positive for: Other (EtOH intoxication ). Negative for: Suicidal ideation Physical Exam - Physical Exam Appears: Non-toxic, No Acute Distress, Other (visibly intoxicated ) Skin: Warm, Dry Head: Normacephalic Eye(s): bilateral: Normal Inspection Oral Mucosa: Moist, Other (alcohol on breath ) Neck: Supple Chest: Symmetrical, No Deformity, No Tenderness Cardiovascular: Rhythm Regular Respiratory: No Accessory Muscle Use Extremity: Normal ROM Neurological/Psych: Other (arousable to touch and verbal stimuli ) ED Course And Treatment O2 Sat by Pulse Oximetry: 99 (on RA) Pulse Ox Interpretation: Normal Progress Note: Labs ordered and reviewed. Reevaluation Time: 05:07 Reassessment Condition: Improved Disposition Counseled Patient/Family Regarding: Studies Performed, Diagnosis, Need For Followup - Disposition Referrals: [facility] at [facility] [Outside] Disposition: HOME/ ROUTINE Disposition Time: 22:27 Condition: FAIR Instructions: Alcohol Abuse and Alcoholism (DC) Forms: [employer] (Djiboutian) - Clinical Impression Clinical Impression: Alcohol abuse with intoxication - Scribe Statement The provider has reviewed the documentation as recorded by the Scribe (Kari Fajardo) Provider Attestation: All medical record entries made by the Scribe were at my direction and personally dictated by me. I have reviewed the chart and agree that the record accurately reflects my personal performance of the history, physical exam, medical decision making, and the department course for this patient. I have also personally directed, reviewed, and agree with the discharge instructions and disposition.
[2018-07-14 05:09] VITALS: BP 131/74; PULSE 78; RESP 16; TEMP 98.3; O2SAT 96
== END 2018-07-14 05:24 | disposition home or self-care (01) ==
LOC: SUPCPDRO 21:14 → C.ER 21:14
DX: F10.129 Alcohol abuse with intoxication, unspecified (principal); Y90.9 Presence of alcohol in blood, level not specified

== ENCOUNTER 2018-07-14 19:14 | Emergency (ER) | payer MEDICAID ==
[2018-07-14 19:14] VITALS: BMI 29.7
--- NOTE | 2018-07-14 19:22 | C.PDOC ---
History Of Present Illness Patient presents to the ER with acute ETOH intoxication, requesting a place to spend the night. Patient denies any foot pain or other physical complaints, ambulates via wheel chair. Time Seen by Provider: 07/14/18 19:21 Chief Complaint (Nursing): Lower Extremity Problem/Injury History Per: Patient History/Exam Limitations: no limitations Onset/Duration Of Symptoms: Hrs Current Symptoms Are (Timing): Still Present Suicide/Self Injury Attempted (Context): None Modifying Factor(s): Alcohol Severity: None Pain Scale Rating Of: 0 Associated Symptoms: denies: Depression, Suicidal Thoughts Involuntary Hold By: None Recent travel outside of the [place]: No Past Medical History Reviewed: Historical Data, Nursing Documentation, Vital Signs Vital Signs: Last Vital Signs Temp 98.4 F 07/14/18 19:20 Pulse 77 07/14/18 19:20 Resp 17 07/14/18 19:20 BP 131/81 07/14/18 19:20 Pulse Ox 100 07/14/18 19:20 - Medical History PMH: Anxiety, Arthritis, Bronchitis, CAD, Depression, Diabetes (Pt. did not disclose to rfp writer, not aware), Fractures (RIGHT ARM), Gastritis, Gall Bladder Disease (s/p cholecystectomy), HTN, Post Traumatic Stress Disorder, Rheumatoid Arthritis, Seizures, Chronic Pain Denies: Chronic Kidney Disease Surgical History: Cholecystectomy - [facility] Procedures ALCOHOL DETOXIFICATION (07/04/15) APPLICATION OF SPLINT (03/20/13) CLOSURE SKIN & SUBCUTANEOUS NEC (08/14/13) DETOXIFICATION SERVICES FOR SUBSTANCE ABUSE TREATMENT (03/22/16) ESOPHAGOGASTRODUODENOSCOPY [EGD] W/CLOSED BIOPSY (02/16/15) OTHER GROUP THERAPY (03/12/13) PHYSICAL THERAPY NEC (07/04/15) TETANUS TOXOID ADMINIST (01/19/14) Family History: States: No Known Family Hx - Social History Hx Tobacco Use: No Hx Alcohol Use: Yes (daily) Hx Substance Use: No - Immunization History Hx Tetanus Toxoid Vaccination: No Hx Influenza Vaccination: No Hx Pneumococcal Vaccination: No Review Of Systems Constitutional: Negative for: Fever, Chills Cardiovascular: Negative for: Chest Pain, Palpitations Respiratory: Negative for: Cough, Shortness of Breath Gastrointestinal: Negative for: Nausea, Vomiting Musculoskeletal: Negative for: Foot Pain Neurological: Negative for: Weakness, Numbness Physical Exam - Physical Exam Appears: Non-toxic, Other (ETOH on breath, no sign of injury) Skin: Warm, Dry Head: Normacephalic Oral Mucosa: Moist Chest: Symmetrical, No Tenderness Cardiovascular: Rhythm Regular Respiratory: No Rales, No Rhonchi, No Wheezing Gastrointestinal/Abdominal: Soft, No Tenderness, Other (Peg tube in place) Extremity: No Tenderness Neurological/Psych: Oriented x3 Gait: Other (Ambulates with wheel chair) Disposition Counseled Patient/Family Regarding: Studies Performed, Diagnosis, Need For Followup - Disposition Referrals: [facility] [Outside] Disposition: HOME/ ROUTINE Disposition Time: 19:21 Condition: FAIR Instructions: Alcohol Abuse and Alcoholism (DC) Forms: [employer] (Finnish) - Clinical Impression Clinical Impression: Alcohol intoxication, Chronic alcoholism - Scribe Statement The provider has reviewed the documentation as recorded by the Scribe Fabián Ramirez All medical record entries made by the Scribe were at my direction and personally dictated by me. I have reviewed the chart and agree that the record accurately reflects my personal performance of the history, physical exam, medical decision making, and the department course for this patient. I have also personally directed, reviewed, and agree with the discharge instructions and disposition.
[2018-07-15 02:46] VITALS: BP 132/80; PULSE 82; RESP 16; TEMP 97.9; O2SAT 100
== END 2018-07-15 05:50 | disposition home or self-care (01) ==
LOC: C.ER 19:14
DX: F10.229 Alcohol dependence with intoxication, unspecified (principal)

== ENCOUNTER 2018-07-16 21:15 | Emergency (ER) | payer MEDICAID ==
[2018-07-16 21:16] VITALS: BMI 29.7
--- NOTE | 2018-07-16 21:24 | C.PDOC ---
History Of Present Illness 57 year old male presents to the ED under the influence requesting a place to stay. He denies any SI/HI, hallucinations, or any other physical complaints. Time Seen by Provider: 07/16/18 21:17 Chief Complaint (Nursing): Substance Abuse History Per: Patient History/Exam Limitations: no limitations Onset/Duration Of Symptoms: Days Current Symptoms Are (Timing): Still Present Suicide/Self Injury Attempted (Context): None Modifying Factor(s): Alcohol Associated Symptoms: denies: Depression, Suicidal Thoughts Past Medical History Reviewed: Historical Data, Nursing Documentation, Vital Signs - Medical History PMH: Anxiety, Arthritis, Bronchitis, CAD, Depression, Diabetes (Pt. 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 not disclose to race and sports book writer, not aware), Fractures (RIGHT ARM), Gastritis, Gall Bladder Disease (s/p cholecystectomy), HTN, Post Traumatic Stress Disorder, Rheumatoid Arthritis, Seizures, Chronic Pain Denies: Chronic Kidney Disease Surgical History: Cholecystectomy - [facility] Procedures ALCOHOL DETOXIFICATION (07/04/15) APPLICATION OF SPLINT (03/20/13) CLOSURE SKIN & SUBCUTANEOUS NEC (08/14/13) DETOXIFICATION SERVICES FOR SUBSTANCE ABUSE TREATMENT (03/22/16) ESOPHAGOGASTRODUODENOSCOPY [EGD] W/CLOSED BIOPSY (02/16/15) OTHER GROUP THERAPY (03/12/13) PHYSICAL THERAPY NEC (07/04/15) TETANUS TOXOID ADMINIST (01/19/14) Family History: States: No Known Family Hx - Social History Hx Tobacco Use: No Hx Alcohol Use: Yes (daily) Hx Substance Use: No - Immunization History Hx Tetanus Toxoid Vaccination: No Hx Influenza Vaccination: No Hx Pneumococcal Vaccination: No Review Of Systems Except As Marked, All Systems Reviewed And Found Negative. Psych: Negative for: Depression, Suicidal ideation Physical Exam - Physical Exam Appears: Non-toxic, Other (alcohol on breath) Skin: Warm, Dry Head: Normacephalic Eye(s): bilateral: Normal Inspection Neck: Normal ROM Chest: Symmetrical Cardiovascular: Rhythm Regular Respiratory: Normal Breath Sounds Gastrointestinal/Abdominal: Soft, No Tenderness Extremity: Normal ROM Neurological/Psych: Oriented x3 Gait: Steady ED Course And Treatment O2 Sat by Pulse Oximetry: 98 (RA) Pulse Ox Interpretation: Normal Medical Decision Making Medical Decision Making: well known to er for etoh abuse and bed seeking behavior. On reassessment, patient is in no acute distress. Patient is sleeping. pt reassesed numerous times, sleeping in nad. in am, pt awake alert asking for dc. Disposition - Disposition Disposition: HOME/ ROUTINE Disposition Time: 05:00 Condition: STABLE Forms: [facility] (Iraqi) - Clinical Impression Clinical Impression: Alcohol intoxication - Scribe Statement The provider has reviewed the documentation as recorded by the Scribe Karissa Sousa All medical record entries made by the Scribe were at my direction and personally dictated by me. I have reviewed the chart and agree that the record accurately reflects my personal performance of the history, physical exam, medical decision making, and the department course for this patient. I have also personally directed, reviewed, and agree with the discharge instructions and disposition.
[2018-07-17 01:09] VITALS: RESP 18
[2018-07-17 04:54] VITALS: BP 117/62; PULSE 77; TEMP 98.7; O2SAT 98
== END 2018-07-17 04:55 | disposition home or self-care (01) ==
LOC: C.ER 21:15
DX: F10.129 Alcohol abuse with intoxication, unspecified (principal)

== ENCOUNTER 2018-07-17 20:22 | Emergency (ER) | payer MEDICAID ==
[2018-07-17 20:22] VITALS: BMI 29.7
--- NOTE | 2018-07-18 01:56 | C.PDOC ---
History Of Present Illness 57 y/o male presents to the ED complaining of feeling dizzy since earlier today. Patient is well known to the ED physicians for tendency of malingering. The patient denies nay recent trauma/injury, slurring or SOB. Time Seen by Provider: 07/17/18 20:53 Chief Complaint (Nursing): Dizziness/Lightheaded History Per: Patient History/Exam Limitations: no limitations Onset/Duration Of Symptoms: Hrs Current Symptoms Are (Timing): Still Present Recent travel outside of the [place]: No Past Medical History Reviewed: Historical Data, Nursing Documentation, Vital Signs Vital Signs: Last Vital Signs Temp 97.7 F 07/17/18 20:53 Pulse 96 H 07/17/18 20:53 Resp 14 07/17/18 20:53 BP 145/81 07/17/18 20:53 Pulse Ox 97 07/17/18 20:53 - Medical History PMH: Anxiety, Arthritis, Bronchitis, CAD, Depression, Diabetes (Pt. did not disclose to headline writer, not aware), Fractures (RIGHT ARM), Gastritis, Gall Bladder Disease (s/p cholecystectomy), HTN, Post Traumatic Stress Disorder, Rheumatoid Arthritis, Seizures, Chronic Pain Denies: Chronic Kidney Disease Surgical History: Cholecystectomy - [facility] Procedures ALCOHOL DETOXIFICATION (07/04/15) APPLICATION OF SPLINT (03/20/13) CLOSURE SKIN & SUBCUTANEOUS NEC (08/14/13) DETOXIFICATION SERVICES FOR SUBSTANCE ABUSE TREATMENT (03/22/16) ESOPHAGOGASTRODUODENOSCOPY [EGD] W/CLOSED BIOPSY (02/16/15) OTHER GROUP THERAPY (03/12/13) PHYSICAL THERAPY NEC (07/04/15) TETANUS TOXOID ADMINIST (01/19/14) Family History: States: Unknown Family Hx - Social History Hx Tobacco Use: No Hx Alcohol Use: Yes (daily) Hx Substance Use: No - Immunization History Hx Tetanus Toxoid Vaccination: No Hx Influenza Vaccination: No Hx Pneumococcal Vaccination: No Review Of Systems Except As Marked, All Systems Reviewed And Found Negative. Constitutional: Negative for: Fever Cardiovascular: Negative for: Chest Pain Respiratory: Negative for: Shortness of Breath Neurological: Positive for: Dizziness. Negative for: Headache Physical Exam - Physical Exam Appears: Well, Non-toxic, No Acute Distress Skin: Normal Color, Warm, Dry Head: Atraumatic, Normacephalic Eye(s): bilateral: PERRL, EOMI Ear(s): Bilateral: Normal Oral Mucosa: Moist Chest: Symmetrical Cardiovascular: Rhythm Regular, No Murmur Respiratory: Normal Breath Sounds, No Rales, No Wheezing Gastrointestinal/Abdominal: Soft, No Tenderness, No Distention Extremity: Normal ROM Extremity: Bilateral: Normal Color And Temperature, Normal ROM Neurological/Psych: Oriented x3, Other (no gross focal deficits ) ED Course And Treatment O2 Sat by Pulse Oximetry: 97 (RA) Pulse Ox Interpretation: Normal Disposition - Disposition Referrals: [facility] at [facility] [Outside] Disposition: HOME/ ROUTINE Disposition Time: 06:00 Condition: STABLE Instructions: Alcohol Abuse and Alcoholism (DC) Forms: [employer] (Lao) - POA Present On Arrival: None - Clinical Impression Clinical Impression: Alcoholism /alcohol abuse - PA / WELFARE ELIGIBILITY INTERVIEWER / 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 - Scribe Statement The provider has reviewed the documentation as recorded by the Scribe (Nathalie Carver) Provider Attestation: All medical record entries made by the Scribe were at my direction and personally dictated by me. I have reviewed the chart and agree that the record accurately reflects my personal performance of the history, physical exam, medical decision making, and the department course for this patient. I have also personally directed, reviewed, and agree with the discharge instructions and disposition.
[2018-07-18 06:35] VITALS: BP 134/76; PULSE 78; RESP 20; TEMP 98; O2SAT 90
== END 2018-07-18 06:34 | disposition home or self-care (01) ==
LOC: C.ER 20:22
DX: F10.20 Alcohol dependence, uncomplicated (principal); E11.9 Type 2 diabetes mellitus without complications; I25.10 Atherosclerotic heart disease of native coronary artery without angina pectoris

== ENCOUNTER 2018-07-18 20:29 | Emergency (ER) | payer MEDICAID ==
[2018-07-18 20:29] VITALS: BMI 29.7
--- NOTE | 2018-07-18 21:01 | C.PDOC ---
History Of Present Illness 57 year old male, ULISSES, presents to the emergency department after being found intoxicated in public. Patient denies any physical complaints. Time Seen by Provider: 07/18/18 20:55 Chief Complaint (Nursing): Substance Abuse History Per: EMS History/Exam Limitations: no limitations Onset/Duration Of Symptoms: Hrs Current Symptoms Are (Timing): Still Present Suicide/Self Injury Attempted (Context): None Modifying Factor(s): Alcohol Severity: None Pain Scale Rating Of: 0 Associated Symptoms: denies: Anger, Anxiety Involuntary Hold By: None Recent travel outside of the [place]: No Additional History Per: Patient Past Medical History Vital Signs: Last Vital Signs Temp 98.1 F 07/18/18 20:42 Pulse 84 07/18/18 20:42 Resp 16 07/18/18 20:42 BP 128/76 07/18/18 20:42 Pulse Ox 97 07/18/18 20:42 - Medical History PMH: Anxiety, Arthritis, Bronchitis, CAD, Depression, Diabetes (Pt. did not disclose to casualty underwriter, not aware), Fractures (RIGHT ARM), Gastritis, Gall Bladder Disease (s/p cholecystectomy), HTN, Post Traumatic Stress Disorder, Rheumatoid Arthritis, Seizures, Chronic Pain Denies: Chronic Kidney Disease Surgical History: Cholecystectomy - [facility] Procedures ALCOHOL DETOXIFICATION (07/04/15) APPLICATION OF SPLINT (03/20/13) CLOSURE SKIN & SUBCUTANEOUS NEC (08/14/13) DETOXIFICATION SERVICES FOR SUBSTANCE ABUSE TREATMENT (03/22/16) ESOPHAGOGASTRODUODENOSCOPY [EGD] W/CLOSED BIOPSY (02/16/15) OTHER GROUP THERAPY (03/12/13) PHYSICAL THERAPY NEC (07/04/15) TETANUS TOXOID ADMINIST (01/19/14) Family History: States: No Known Family Hx - Social History Hx Tobacco Use: No Hx Alcohol Use: Yes (daily) Hx Substance Use: No - Immunization History Hx Tetanus Toxoid Vaccination: No Hx Influenza Vaccination: No Hx Pneumococcal Vaccination: No Review Of Systems Constitutional: Negative for: Fever, Chills Cardiovascular: Negative for: Chest Pain Respiratory: Negative for: Shortness of Breath Gastrointestinal: Negative for: Abdominal Pain Skin: Negative for: Rash Psych: Negative for: Anxiety Physical Exam - Physical Exam Appears: No Acute Distress, Other (Alcohol on breath) Skin: Warm, Dry Head: Normacephalic Oral Mucosa: Moist Neck: Supple Cardiovascular: Rhythm Regular Respiratory: No Rales Gastrointestinal/Abdominal: Soft, No Tenderness Extremity: Normal ROM Neurological/Psych: Oriented x3 ED Course And Treatment O2 Sat by Pulse Oximetry: 97 (RA) Pulse Ox Interpretation: Normal Reevaluation Time: 05:21 Reassessment Condition: Improved Disposition Counseled Patient/Family Regarding: Studies Performed, Diagnosis, Need For Followup - Disposition Referrals: [facility] at [facility] [Outside] Disposition: HOME/ ROUTINE Disposition Time: 20:55 Condition: FAIR Instructions: Alcohol Abuse and Alcoholism (DC) Forms: [employer] (Saudi Arabian) - Clinical Impression Clinical Impression: Alcohol intoxication, Chronic alcoholism - Scribe Statement The provider has reviewed the documentation as recorded by the Jada Bullock Provider Attestation: All medical record entries made by the Rominaibjosé miguel were at my direction and personally dictated by me. I have reviewed the chart and agree that the record accurately reflects my personal performance of the history, physical exam, medical decision making, and the department course for this patient. I have also personally directed, reviewed, and agree with the discharge instructions and disposition.
[2018-07-19 05:11] VITALS: BP 130/77; PULSE 65; RESP 14; TEMP 97.8
[2018-07-19 05:23] VITALS: O2SAT 97
== END 2018-07-19 05:40 | disposition home or self-care (01) ==
LOC: C.ER 20:29
DX: F10.229 Alcohol dependence with intoxication, unspecified (principal); Y90.9 Presence of alcohol in blood, level not specified

== ENCOUNTER 2018-07-19 20:29 | Emergency (ER) | payer MEDICAID ==
[2018-07-19 20:29] VITALS: BMI 29.7
--- NOTE | 2018-07-19 20:34 | C.PDOC ---
History Of Present Illness 57 year old male is brought into the emergency department by ambulance for public intoxication. Patient is drunk, and is requesting a place to stay for the night. Time Seen by Provider: 07/19/18 20:33 History Per: Patient History/Exam Limitations: no limitations Onset/Duration Of Symptoms: Hrs Current Symptoms Are (Timing): Still Present Suicide/Self Injury Attempted (Context): None Modifying Factor(s): Alcohol Associated Symptoms: denies: Suicidal Thoughts, Suicidal Plan Past Medical History Reviewed: Historical Data, Nursing Documentation, Vital Signs - Medical History PMH: Anxiety, Arthritis, Bronchitis, CAD, Depression, Diabetes (Pt. did not disclose to quality analyst/technical writer, not aware), Fractures (RIGHT ARM), Gastritis, Gall Bladder Disease (s/p cholecystectomy), HTN, Post Traumatic Stress Disorder, Rheumatoid Arthritis, Seizures, Chronic Pain Denies: Chronic Kidney Disease Surgical History: Cholecystectomy - [facility] Procedures ALCOHOL DETOXIFICATION (07/04/15) APPLICATION OF SPLINT (03/20/13) CLOSURE SKIN & SUBCUTANEOUS NEC (08/14/13) DETOXIFICATION SERVICES FOR SUBSTANCE ABUSE TREATMENT (03/22/16) ESOPHAGOGASTRODUODENOSCOPY [EGD] W/CLOSED BIOPSY (02/16/15) OTHER GROUP THERAPY (03/12/13) PHYSICAL THERAPY NEC (07/04/15) TETANUS TOXOID ADMINIST (01/19/14) Family History: States: No Known Family Hx - Social History Hx Tobacco Use: No Hx Alcohol Use: Yes (daily) Hx Substance Use: No - Immunization History Hx Tetanus Toxoid Vaccination: No Hx Influenza Vaccination: No Hx Pneumococcal Vaccination: No Review Of Systems Constitutional: Negative for: Fever Gastrointestinal: Negative for: Nausea, Vomiting Neurological: Positive for: Altered Mental Status (intoxicated) Psych: Negative for: Suicidal ideation Physical Exam - Physical Exam Appears: Non-toxic, No Acute Distress Skin: Warm, Dry Head: Atraumatic, Normacephalic Eye(s): bilateral: Normal Inspection, PERRL, EOMI Oral Mucosa: Moist, Other (alcohol on breath) Neck: Trachea Midline, Supple Chest: Symmetrical, No Tenderness Cardiovascular: Rhythm Regular, No Murmur Respiratory: No Rales, No Rhonchi, No Wheezing Gastrointestinal/Abdominal: Soft, No Tenderness, No Guarding, No Rebound Neurological/Psych: Oriented x3 ED Course And Treatment O2 Sat by Pulse Oximetry: 97 Pulse Ox Interpretation: Normal Reevaluation Time: 04:52 Reassessment Condition: Improved Disposition Counseled Patient/Family Regarding: Studies Performed, Diagnosis, Need For Followup - Disposition Referrals: [facility] [Outside] Disposition: HOME/ ROUTINE Disposition Time: 20:34 Condition: FAIR Instructions: Alcohol Abuse and Alcoholism (DC) - Clinical Impression Clinical Impression: Alcohol abuse with intoxication, Chronic alcoholism - Scribe Statement The provider has reviewed the documentation as recorded by the Scribe (Jewel silva) Provider Attestation: All medical record entries made by the Scribe were at my direction and personally dictated by me. I have reviewed the chart and agree that the record accurately reflects my personal performance of the history, physical exam, medical decision making, and the department course for this patient. I have also personally directed, reviewed, and agree with the discharge instructions and disposition.
[2018-07-20 05:19] VITALS: BP 132/74; PULSE 65; RESP 16; TEMP 98; O2SAT 95
== END 2018-07-20 05:19 | disposition home or self-care (01) ==
LOC: C.ER 20:29
DX: F10.229 Alcohol dependence with intoxication, unspecified (principal); E11.9 Type 2 diabetes mellitus without complications; I25.10 Atherosclerotic heart disease of native coronary artery without angina pectoris

== ENCOUNTER 2018-07-20 22:25 | Emergency (ER) | payer MEDICAID ==
[2018-07-20 22:25] VITALS: BMI 29.7
--- NOTE | 2018-07-20 22:31 | C.PDOC ---
History Of Present Illness 57 year old male is brought to the ED by EMS for evaluation of chest pain. Patient had a normal EKG done by ALS on the field. Upon arrival to the ED patient denies any chest pain. Patient has multiple prior visits to the ED. Patient denies fever, chills, SOB, palpitations, dizziness, headache, nausea, vomit. Time Seen by Provider: 07/20/18 22:29 Chief Complaint (Nursing): Chest Pain History Per: Patient, EMS History/Exam Limitations: no limitations Onset/Duration Of Symptoms: Days Current Symptoms Are (Timing): Gone Quality: "Pain" Recent travel outside of the [place]: No Additional History Per: Patient Past Medical History Reviewed: Historical Data, Nursing Documentation, Vital Signs - Medical History PMH: Anxiety, Arthritis, Bronchitis, CAD, Depression, Diabetes (Pt. did not disclose to designer writer, not aware), Fractures (RIGHT ARM), Gastritis, Gall Bladder Disease (s/p cholecystectomy), HTN, Post Traumatic Stress Disorder, Rheumatoid Arthritis, Seizures, Chronic Pain Denies: Chronic Kidney Disease Surgical History: Cholecystectomy - [facility] Procedures ALCOHOL DETOXIFICATION (07/04/15) APPLICATION OF SPLINT (03/20/13) CLOSURE SKIN & SUBCUTANEOUS NEC (08/14/13) DETOXIFICATION SERVICES FOR SUBSTANCE ABUSE TREATMENT (03/22/16) ESOPHAGOGASTRODUODENOSCOPY [EGD] W/CLOSED BIOPSY (02/16/15) OTHER GROUP THERAPY (03/12/13) PHYSICAL THERAPY NEC (07/04/15) TETANUS TOXOID ADMINIST (01/19/14) Family History: States: Unknown Family Hx - Social History Hx Tobacco Use: No Hx Alcohol Use: Yes (daily) Hx Substance Use: No - Immunization History Hx Tetanus Toxoid Vaccination: No Hx Influenza Vaccination: No Hx Pneumococcal Vaccination: No Review Of Systems Constitutional: Negative for: Fever, Chills Cardiovascular: Negative for: Chest Pain, Palpitations Respiratory: Negative for: Shortness of Breath Gastrointestinal: Negative for: Nausea, Vomiting Skin: Negative for: Rash Neurological: Negative for: Weakness, Numbness Psych: Negative for: Depression, Suicidal ideation Physical Exam - Physical Exam Appears: Non-toxic, No Acute Distress, Unkempt, Other (disheveled, foul smelling, conversational) Skin: Normal Color, Warm, Dry Head: Atraumatic, Normacephalic Eye(s): bilateral: Normal Inspection Neck: Normal ROM, Supple Chest: Symmetrical Cardiovascular: Rhythm Regular Respiratory: Normal Breath Sounds, No Rales, No Rhonchi, No Wheezing Gastrointestinal/Abdominal: Soft, No Tenderness, No Guarding, No Rebound Extremity: Normal ROM, No Tenderness, No Swelling Neurological/Psych: Oriented x3, Normal Speech Gait: With Assistance (wheelchair) ED Course And Treatment ECG: Interpreted By Me ECG Rhythm: Sinus Rhythm ECG Interpretation: Normal O2 Sat by Pulse Oximetry: 98 (ON RA) Pulse Ox Interpretation: Normal Medical Decision Making Medical Decision Making: no acute cardiac issue alcohol abuse malingering Disposition Doctor Will See Patient In The: Office Counseled Patient/Family Regarding: Studies Performed, Diagnosis - Disposition Referrals: Alcoholics Anonymous [Outside] [facility] [Outside] [facility] [Outside] [facility] [Outside] Disposition: HOME/ ROUTINE Disposition Time: 22:30 Condition: GOOD Additional Instructions: stop alcohol abuse Seek nightly prison placement Instructions: Alcohol Abuse and Alcoholism (DC) Forms: [employer] (Welsh) - Clinical Impression Clinical Impression: Alcohol abuse, daily use - Scribe Statement The provider has reviewed the documentation as recorded by the Scribe Woo Brown All medical record entries made by the Scribe were at my direction and personally dictated by me. I have reviewed the chart and agree that the record accurately reflects my personal performance of the history, physical exam, medical decision making, and the department course for this patient. I have also personally directed, reviewed, and agree with the discharge instructions and disposition.
[2018-07-20 22:35] VITALS: RESP 20
[2018-07-20 22:49] VITALS: BP 111/68; PULSE 85; TEMP 98.2; O2SAT 98
== END 2018-07-20 22:59 | disposition home or self-care (01) ==
LOC: C.ER 22:25
DX: F10.10 Alcohol abuse, uncomplicated (principal); E11.9 Type 2 diabetes mellitus without complications; I25.10 Atherosclerotic heart disease of native coronary artery without angina pectoris

== ENCOUNTER 2018-07-22 23:06 | Emergency (ER) | payer MEDICAID ==
[2018-07-22 23:06] VITALS: BMI 29.7
[2018-07-22 23:22] VITALS: BP 131/85; PULSE 88; TEMP 98.1; O2SAT 97
--- NOTE | 2018-07-22 23:31 | C.PDOC ---
History Of Present Illness 57 year old female presents to the ER requesting a place to spend the night. Denies ETOH use or any medical complaints. Time Seen by Provider: 07/22/18 23:27 Chief Complaint (Nursing): Medical Clearance History Per: Patient History/Exam Limitations: no limitations Onset/Duration Of Symptoms: Hrs Modifying Factor(s): None Associated Symptoms: denies: Depression, Suicidal Thoughts Involuntary Hold By: None Recent travel outside of the [place]: No Past Medical History Reviewed: Historical Data, Nursing Documentation, Vital Signs Vital Signs: Last Vital Signs Temp 98.1 F 07/22/18 23:13 Pulse 88 07/22/18 23:13 Resp 16 07/22/18 23:13 BP 131/85 07/22/18 23:13 Pulse Ox 97 07/22/18 23:13 - Medical History PMH: Anxiety, Arthritis, Bronchitis, CAD, Depression, Diabetes (Pt. did not disclose to senior medical writer, not aware), Fractures (RIGHT ARM), Gastritis, Gall Bladder Disease (s/p cholecystectomy), HTN, Post Traumatic Stress Disorder, Rheumatoid Arthritis, Seizures, Chronic Pain Denies: Chronic Kidney Disease Surgical History: Cholecystectomy - [facility] Procedures ALCOHOL DETOXIFICATION (07/04/15) APPLICATION OF SPLINT (03/20/13) CLOSURE SKIN & SUBCUTANEOUS NEC (08/14/13) DETOXIFICATION SERVICES FOR SUBSTANCE ABUSE TREATMENT (03/22/16) ESOPHAGOGASTRODUODENOSCOPY [EGD] W/CLOSED BIOPSY (02/16/15) OTHER GROUP THERAPY (03/12/13) PHYSICAL THERAPY NEC (07/04/15) TETANUS TOXOID ADMINIST (01/19/14) Family History: States: Unknown Family Hx - Social History Hx Tobacco Use: No Hx Alcohol Use: Yes (daily) Hx Substance Use: No - Immunization History Hx Tetanus Toxoid Vaccination: No Hx Influenza Vaccination: Yes Hx Pneumococcal Vaccination: Yes Review Of Systems Constitutional: Negative for: Fever, Chills Cardiovascular: Negative for: Chest Pain, Palpitations Respiratory: Negative for: Cough, Shortness of Breath Gastrointestinal: Negative for: Nausea, Vomiting Neurological: Negative for: Weakness, Numbness Physical Exam - Physical Exam Appears: Non-toxic, No Acute Distress, Other (Disheveled, Foul Smelling) Skin: Normal Color, Warm, Dry Head: Atraumatic, Normacephalic Eye(s): bilateral: Normal Inspection Oral Mucosa: Moist Chest: Symmetrical, No Tenderness Cardiovascular: Rhythm Regular Respiratory: Normal Breath Sounds, No Rales, No Rhonchi, No Wheezing Gastrointestinal/Abdominal: Soft, No Tenderness Extremity: Normal ROM (x4) Neurological/Psych: Oriented x3, Normal Speech Gait: Steady ED Course And Treatment O2 Sat by Pulse Oximetry: 97 (Room air) Pulse Ox Interpretation: Normal Medical Decision Making Medical Decision Making: typical malingering denies alcohol alcohol use + typical alcohol abuse/smells no acute injuries nor change of mental status Disposition Doctor Will See Patient In The: Office Counseled Patient/Family Regarding: Studies Performed, Diagnosis - Disposition Referrals: Alcoholics Anonymous [Outside] [facility] [Outside] [facility] [Outside] [facility] [Outside] [facility] [Outside] [facility] [Outside] [facility] [employer] [facility] [Outside] Disposition: HOME/ ROUTINE Disposition Time: 23:29 Condition: GOOD Additional Instructions: seek nightly usp placement seek AA Seek outpatient psych services. Instructions: Alcohol Abuse and Alcoholism (DC) Forms: [employer] (V[place] Citizen) - Clinical Impression Clinical Impression: Alcohol abuse, daily use, Malingering - Scribe Statement The provider has reviewed the documentation as recorded by the Scribe Fabián Ramirez All medical record entries made by the Scribe were at my direction and personally dictated by me. I have reviewed the chart and agree that the record accurately reflects my personal performance of the history, physical exam, medical decision making, and the department course for this patient. I have also personally directed, reviewed, and agree with the discharge instructions and disposition.
[2018-07-22 23:50] VITALS: RESP 18
== END 2018-07-22 23:47 | disposition home or self-care (01) ==
LOC: C.ER 23:06
DX: F10.10 Alcohol abuse, uncomplicated (principal); Z76.5 Malingerer [conscious simulation]; E11.9 Type 2 diabetes mellitus without complications; I25.10 Atherosclerotic heart disease of native coronary artery without angina pectoris

== ENCOUNTER 2018-07-23 20:40 | Emergency (ER) | payer MEDICAID ==
[2018-07-23 20:40] VITALS: BMI 29.7
[2018-07-23 21:21] LABS: BASO % 0.8 % (0.0-2.0); EOS # 0.1 K/uL (0.0-0.7); EOS % 2.3 % (0.0-4.0); HEMOGLOBIN 10.9 g/dL (12.0-18.0); LYMPH # 1.3 K/uL (1.0-4.3); LYMPH % 33.8 % (20.0-40.0); MEAN CORPUSCULAR HEMOGLOBIN 36.1 pg (27.0-31.0); MEAN CORPUSCULAR HGB CONC 35.3 g/dL (33.0-37.0); MEAN PLATELET VOLUME 7.2 fL (7.2-11.7); MONO # 0.6 K/uL (0.0-0.8); MONO % 14.9 % (0.0-10.0); NEUT # 1.8 K/uL (1.8-7.0); NEUT % 48.2 % (50.0-75.0); NRBC % 0.2 % (0.0-2.0); RBC 3.01 Mil/uL (4.40-5.90); RED CELL DISTRIBUTION WIDTH 17.1 % (11.5-14.5); WHITE BLOOD COUNT 3.7 K/uL (4.8-10.8)
[2018-07-23 21:31] LABS: MEAN CELL VOLUME 102.3 fL (80.0-94.0)
[2018-07-23 21:38] LABS: ALB/GLOB RATIO 1.1 (1.0-2.1); ALBUMIN 4.4 g/dL (3.5-5.0); ALT/SGPT 23 U/L (21-72); AST/SGOT 100 U/L (17-59); BLOOD UREA NITROGEN 15 mg/dL (9-20); CALCIUM 9.2 mg/dl (8.6-10.4); GFR NON-AFRICAN AMERICAN > 60
--- NOTE | 2018-07-24 00:35 | C.PDOC ---
History Of Present Illness 57 year old male is brought to the ED by EMS for evaluation of a seizure. Patient has multiple prior visits to the ED with similar presentation as well as alcohol intoxication. Patient denies SI/HI, hallucinations, other injuries. Chief Complaint (Nursing): Seizure History Per: Patient History/Exam Limitations: intoxication Recent Seizure Activity Began: Just Before Arrival Number Of Seizures: One Length Of Seizures (Duration): Unknown Quality Of Seizure: Generalized Precipitating Factor(s): Recent Alcohol Ingestion Severity: None Recent travel outside of the [place]: No Additional History Per: Patient Past Medical History Reviewed: Historical Data, Nursing Documentation, Vital Signs Vital Signs: Last Vital Signs Temp 98.6 F 07/23/18 20:47 Pulse 97 H 07/23/18 20:47 Resp 16 07/23/18 20:47 BP 110/69 07/23/18 20:47 Pulse Ox 99 07/23/18 20:47 - Medical History PMH: Anxiety, Arthritis, Bronchitis, CAD, Depression, Diabetes (Pt. did not disclose to copy writer, not aware), Fractures (RIGHT ARM), Gastritis, Gall Bladder Disease (s/p cholecystectomy), HTN, Post Traumatic Stress Disorder, Rheumatoid Arthritis, Seizures, Chronic Pain Denies: Chronic Kidney Disease Surgical History: Cholecystectomy - [facility] Procedures ALCOHOL DETOXIFICATION (07/04/15) APPLICATION OF SPLINT (03/20/13) CLOSURE SKIN & SUBCUTANEOUS NEC (08/14/13) DETOXIFICATION SERVICES FOR SUBSTANCE ABUSE TREATMENT (03/22/16) ESOPHAGOGASTRODUODENOSCOPY [EGD] W/CLOSED BIOPSY (02/16/15) OTHER GROUP THERAPY (03/12/13) PHYSICAL THERAPY NEC (07/04/15) TETANUS TOXOID ADMINIST (01/19/14) Family History: States: Unknown Family Hx - Social History Hx Tobacco Use: No Hx Alcohol Use: Yes (daily) Hx Substance Use: No - Immunization History Hx Tetanus Toxoid Vaccination: No Hx Influenza Vaccination: Yes Hx Pneumococcal Vaccination: Yes Review Of Systems Review Of Systems: ROS cannot be obtained secondary to pt's inabilty to answer questions. Physical Exam - Physical Exam Appears: Non-toxic, No Acute Distress, Unkempt Skin: Normal Color, Warm, Dry Head: Atraumatic, Normacephalic Eye(s): bilateral: Normal Inspection Neck: Normal ROM, Supple Chest: Symmetrical Cardiovascular: Rhythm Regular Respiratory: Normal Breath Sounds, No Rales, No Rhonchi, No Wheezing Gastrointestinal/Abdominal: Soft, No Tenderness, No Guarding, No Rebound Extremity: Normal ROM, No Tenderness, No Swelling Neurological/Psych: Oriented x3, Normal Speech, Normal Cognition Gait: With Assistance (wheelchair) ED Course And Treatment - Laboratory Results Result Diagrams: 07/23/18 21:17 07/23/18 21:17 O2 Sat by Pulse Oximetry: 99 (ON RA) Pulse Ox Interpretation: Normal Medical Decision Making Medical Decision Making: Plan: * Labs * IV fluids Disposition - Disposition Referrals: [facility] [Outside] Disposition Time: 07:00 Condition: STABLE Forms: [facility] (Lithuanian) - POA Present On Arrival: None - Clinical Impression Clinical Impression: Alcohol intoxication, Seizure disorder - Scribe Statement The provider has reviewed the documentation as recorded by the Scribe Woo Brown All medical record entries made by the Scribe were at my direction and pe rsonally dictated by me. I have reviewed the chart and agree that the record accurately reflects my personal performance of the history, physical exam, medical decision making, and the department course for this patient. I have also personally directed, reviewed, and agree with the discharge instructions and disposition.
[2018-07-24 03:46] VITALS: O2SAT 99
[2018-07-24] MEDS: Sodium Chloride 0.9% 1,000 ML IV ONE (05:41)
[2018-07-24] MEDS: Multivitamin (MVI) 10 ML, Thiamine 100 MG, Folic Acid 1 MG in Sodium Chloride 0.9% 1,00... IV ONE (05:42)
[2018-07-24 06:50] VITALS: BP 126/84; PULSE 87; RESP 20; TEMP 97.9
== END 2018-07-24 07:39 | disposition home or self-care (01) ==
LOC: C.ER 20:40
DX: G40.909 Epilepsy, unspecified, not intractable, without status epilepticus (principal); F10.129 Alcohol abuse with intoxication, unspecified; Y90.8 Blood alcohol level of 240 mg/100 ml or more

== ENCOUNTER 2018-07-25 22:08 | Emergency (ER) | payer MEDICAID ==
[2018-07-25 22:08] VITALS: BMI 29.7
[2018-07-25 22:20] VITALS: BP 128/83; PULSE 85; RESP 18; TEMP 97.8; O2SAT 99
--- NOTE | 2018-07-25 22:49 | C.PDOC ---
History Of Present Illness 57 year old male is brought to the ED for alcohol intoxication. Patient admits to drinking alcohol tonight and is looking for a place to sleep. Patient has multiple prior visits to the ED with same presentation. Patient denies SI/HI, hallucinations, other complaints. Time Seen by Provider: 07/25/18 22:47 Chief Complaint (Nursing): Substance Abuse History Per: Patient, EMS History/Exam Limitations: intoxication Onset/Duration Of Symptoms: Hrs Current Symptoms Are (Timing): Still Present Suicide/Self Injury Attempted (Context): None Modifying Factor(s): Alcohol Associated Symptoms: denies: Depression, Suicidal Thoughts, Suicidal Plan Recent travel outside of the [place]: No Additional History Per: Patient Past Medical History Reviewed: Historical Data, Nursing Documentation, Vital Signs Vital Signs: Last Vital Signs Temp 97.8 F 07/25/18 22:17 Pulse 85 07/25/18 22:17 Resp 18 07/25/18 22:17 BP 128/83 07/25/18 22:17 Pulse Ox 99 07/25/18 22:17 - Medical History PMH: Anxiety, Arthritis, Bronchitis, CAD, Depression, Diabetes (Pt. did not disclose to song writer, not aware), Fractures (RIGHT ARM), Gastritis, Gall Bladder Disease (s/p cholecystectomy), HTN, Post Traumatic Stress Disorder, Rheumatoid Arthritis, Seizures, Chronic Pain Denies: Chronic Kidney Disease Surgical History: Cholecystectomy - [facility] Procedures ALCOHOL DETOXIFICATION (07/04/15) APPLICATION OF SPLINT (03/20/13) CLOSURE SKIN & SUBCUTANEOUS NEC (08/14/13) DETOXIFICATION SERVICES FOR SUBSTANCE ABUSE TREATMENT (03/22/16) ESOPHAGOGASTRODUODENOSCOPY [EGD] W/CLOSED BIOPSY (02/16/15) OTHER GROUP THERAPY (03/12/13) PHYSICAL THERAPY NEC (07/04/15) TETANUS TOXOID ADMINIST (01/19/14) Family History: States: Unknown Family Hx - Social History Hx Tobacco Use: No Hx Alcohol Use: Yes (daily) Hx Substance Use: No - Immunization History Hx Tetanus Toxoid Vaccination: No Hx Influenza Vaccination: Yes Hx Pneumococcal Vaccination: Yes Review Of Systems Constitutional: Negative for: Fever, Chills Cardiovascular: Negative for: Chest Pain Respiratory: Negative for: Shortness of Breath Gastrointestinal: Negative for: Nausea, Vomiting Skin: Negative for: Rash Neurological: Negative for: Weakness, Numbness Psych: Negative for: Depression, Suicidal ideation Physical Exam - Physical Exam Appears: Non-toxic, No Acute Distress Skin: Normal Color, Warm, Dry Head: Atraumatic, Normacephalic Eye(s): bilateral: Normal Inspection Oral Mucosa: Moist Neck: Normal ROM, Supple Chest: Symmetrical Cardiovascular: Rhythm Regular Respiratory: Normal Breath Sounds, No Rales, No Rhonchi, No Wheezing Gastrointestinal/Abdominal: Soft, No Tenderness, No Guarding, No Rebound Extremity: Normal ROM, No Tenderness, No Swelling Neurological/Psych: Oriented x3, Normal Speech, Normal Cognition Gait: With Assistance (wheelchair) ED Course And Treatment O2 Sat by Pulse Oximetry: 99 (ON RA) Pulse Ox Interpretation: Normal Medical Decision Making Medical Decision Making: alcohol abuse malingering no acute issues wheelchair and supplies functioning properly. Disposition Doctor Will See Patient In The: Office Counseled Patient/Family Regarding: Studies Performed, Diagnosis - Disposition Referrals: Alcoholics Anonymous [Outside] [facility] [Outside] [facility] [Outside] [facility] [Outside] [facility] [Outside] [facility] [Outside] Luis Miguel Rosales MD [Primary Care Provider] - Disposition: HOSPITALIZED Disposition Time: 22:48 Condition: GOOD Additional Instructions: seek nightly group home placement seek AA Seek outpatient psych services Instructions: Alcohol Abuse and Alcoholism (DC) Forms: [employer] (Nepali) - Clinical Impression Clinical Impression: Alcoholism /alcohol abuse, Homelessness, Malingering - Scribe Statement The provider has reviewed the documentation as recorded by the Scribe Woo Brown All medical record entries made by the Scribe were at my direction and personally dictated by me. I have reviewed the chart and agree that the record accurately reflects my personal performance of the history, physical exam, medical decision making, and the department course for this patient. I have also personally directed, reviewed, and agree with the discharge instructions and dis position.
== END 2018-07-25 22:48 | disposition home or self-care (01) ==
LOC: C.ER 22:08 → SUPCPDRO 22:08 → C.ER 22:48
DX: F10.129 Alcohol abuse with intoxication, unspecified (principal); Z59.0 Homelessness; Z76.5 Malingerer [conscious simulation]

== ENCOUNTER 2018-07-27 00:47 | Emergency (ER) | payer MEDICAID ==
[2018-07-27 00:48] VITALS: BMI 29.7
[2018-07-27 01:02] VITALS: PULSE 86
--- NOTE | 2018-07-27 01:24 | C.PDOC ---
History Of Present Illness 57 year old male wheeled in by fellow homeless alcoholic looking for a place to sleep. Denies trauma or falls. Patient is known in the ER and has had many frequent visits. Time Seen by Provider: 07/27/18 01:21 Chief Complaint (Nursing): Substance Abuse History Per: Patient History/Exam Limitations: no limitations Onset/Duration Of Symptoms: Hrs Current Symptoms Are (Timing): Still Present Past Medical History Reviewed: Historical Data, Nursing Documentation, Vital Signs Vital Signs: Last Vital Signs Temp 98.4 F 07/27/18 00:55 Pulse 86 07/27/18 00:55 Resp 18 07/27/18 00:55 BP 144/85 07/27/18 00:55 Pulse Ox 18 L 07/27/18 00:55 - Medical History PMH: Anxiety, Arthritis, Bronchitis, CAD, Depression, Diabetes (Pt. did not disclose to process description writer, not aware), Fractures (RIGHT ARM), Gastritis, Gall Bladder Disease (s/p cholecystectomy), HTN, Post Traumatic Stress Disorder, Rheumatoid Arthritis, Seizures, Chronic Pain Denies: Chronic Kidney Disease Surgical History: Cholecystectomy - [facility] Procedures ALCOHOL DETOXIFICATION (07/04/15) APPLICATION OF SPLINT (03/20/13) CLOSURE SKIN & SUBCUTANEOUS NEC (08/14/13) DETOXIFICATION SERVICES FOR SUBSTANCE ABUSE TREATMENT (03/22/16) ESOPHAGOGASTRODUODENOSCOPY [EGD] W/CLOSED BIOPSY (02/16/15) OTHER GROUP THERAPY (03/12/13) PHYSICAL THERAPY NEC (07/04/15) TETANUS TOXOID ADMINIST (01/19/14) Family History: States: No Known Family Hx - Social History Hx Tobacco Use: No Hx Alcohol Use: Yes (daily) Hx Substance Use: No - Immunization History Hx Tetanus Toxoid Vaccination: No Hx Influenza Vaccination: Yes Hx Pneumococcal Vaccination: Yes Review Of Systems Except As Marked, All Systems Reviewed And Found Negative. Constitutional: Negative for: Fever, Chills Cardiovascular: Negative for: Chest Pain Respiratory: Negative for: Shortness of Breath Gastrointestinal: Negative for: Nausea, Vomiting, Diarrhea Neurological: Negative for: Weakness, Numbness Physical Exam - Physical Exam Appears: Non-toxic, No Acute Distress, Other (Disheveled; alcohol on breath) Skin: Warm, Dry Head: Atraumatic, Normacephalic Eye(s): bilateral: Normal Inspection Oral Mucosa: Moist Chest: Symmetrical Respiratory: Normal Breath Sounds Gastrointestinal/Abdominal: Soft, No Tenderness Extremity: Bilateral: Atraumatic Neurological/Psych: Oriented x3, Normal Speech ED Course And Treatment O2 Sat by Pulse Oximetry: 96 (RA) Pulse Ox Interpretation: Normal Medical Decision Making Medical Decision Making: Impression: Alcohol abuse Plan: --Labs alcohol abuse, malingering. no acute issues ok for d/c Disposition Doctor Will See Patient In The: Office Counseled Patient/Family Regarding: Studies Performed, Diagnosis - Disposition Referrals: [facility] [Outside] [facility] [employer] [place] [Outside] [facility] [Outside] [facility] [Outside] Disposition: HOME/ ROUTINE Disposition Time: 01:22 Condition: GOOD Instructions: Alcohol Abuse and Alcoholism (DC) Forms: [employer] (Samoan) - Clinical Impression Clinical Impression: Alcohol abuse, daily use, Malingering - Scribe Statement The provider has reviewed the documentation as recorded by the Jada Bullock Provider Attestation: All medical record entries made by the Rominaibjosé miguel were at my direction and personal ly dictated by me. I have reviewed the chart and agree that the record accurately reflects my personal performance of the history, physical exam, medical decision making, and the department course for this patient. I have also personally directed, reviewed, and agree with the discharge instructions and disposition.
[2018-07-27 03:12] VITALS: BP 126/77; RESP 16; TEMP 97.4; O2SAT 96
== END 2018-07-27 03:48 | disposition home or self-care (01) ==
LOC: C.ER 00:47
DX: F10.10 Alcohol abuse, uncomplicated (principal); Z76.5 Malingerer [conscious simulation]; Z59.0 Homelessness

== ENCOUNTER 2018-07-27 23:30 | Emergency (ER) | payer MEDICAID ==
[2018-07-27 23:30] VITALS: BMI 29.7
[2018-07-28 00:16] VITALS: TEMP 98.2
--- NOTE | 2018-07-28 03:17 | C.PDOC ---
History Of Present Illness 57 year old male presents to the ED for alcohol intoxication. Patient admits to drinking alcohol tonight and requests a place to stay. Patient has multiple prior visits to the ED with similar complaints. Patient denies Si/HI, hallucinations, trauma, injury, fall. Chief Complaint (Nursing): Substance Abuse History Per: Patient History/Exam Limitations: intoxication Onset/Duration Of Symptoms: Hrs Current Symptoms Are (Timing): Still Present Suicide/Self Injury Attempted (Context): None Modifying Factor(s): Alcohol Associated Symptoms: denies: Depression, Suicidal Thoughts, Suicidal Plan Recent travel outside of the [place]: No Additional History Per: Patient Past Medical History Reviewed: Historical Data, Nursing Documentation, Vital Signs Vital Signs: Last Vital Signs Temp 98.2 F 07/28/18 00:13 Pulse 93 H 07/28/18 00:13 Resp 18 07/28/18 00:13 BP 143/78 07/28/18 00:13 Pulse Ox 96 07/28/18 00:13 - Medical History PMH: Anxiety, Arthritis, Bronchitis, CAD, Depression, 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 aware), Fractures (RIGHT ARM), Gastritis, Gall Bladder Disease (s/p cholecystectomy), HTN, Post Traumatic Stress Disorder, Rheumatoid Arthritis, Seizures, Chronic Pain Denies: Chronic Kidney Disease Surgical History: Cholecystectomy - [facility] Procedures ALCOHOL DETOXIFICATION (07/04/15) APPLICATION OF SPLINT (03/20/13) CLOSURE SKIN & SUBCUTANEOUS NEC (08/14/13) DETOXIFICATION SERVICES FOR SUBSTANCE ABUSE TREATMENT (03/22/16) ESOPHAGOGASTRODUODENOSCOPY [EGD] W/CLOSED BIOPSY (02/16/15) OTHER GROUP THERAPY (03/12/13) PHYSICAL THERAPY NEC (07/04/15) TETANUS TOXOID ADMINIST (01/19/14) Family History: States: Unknown Family Hx - Social History Hx Tobacco Use: No Hx Alcohol Use: Yes (daily) Hx Substance Use: No - Immunization History Hx Tetanus Toxoid Vaccination: No Hx Influenza Vaccination: Yes Hx Pneumococcal Vaccination: Yes Review Of Systems Constitutional: Negative for: Fever, Chills Cardiovascular: Negative for: Chest Pain Respiratory: Negative for: Shortness of Breath Gastrointestinal: Negative for: Nausea, Vomiting, Abdominal Pain Skin: Negative for: Rash Neurological: Negative for: Weakness, Numbness Psych: Negative for: Depression, Suicidal ideation Physical Exam - Physical Exam Appears: Non-toxic, No Acute Distress, Unkempt Skin: Normal Color, Warm, Dry Head: Atraumatic, Normacephalic Eye(s): bilateral: Normal Inspection Neck: Normal ROM, Supple Chest: Symmetrical Cardiovascular: Rhythm Regular Respiratory: Normal Breath Sounds, No Rales, No Rhonchi, No Wheezing Gastrointestinal/Abdominal: Soft, No Tenderness, No Guarding, No Rebound Extremity: Normal ROM, No Tenderness, No Swelling Neurological/Psych: Oriented x3, Normal Speech, Normal Cognition Gait: With Assistance (wheelchair) ED Course And Treatment O2 Sat by Pulse Oximetry: 96 (ON RA) Pulse Ox Interpretation: Normal Disposition Counseled Patient/Family Regarding: Diagnosis - Disposition Referrals: [facility] [Outside] Disposition: HOME/ ROUTINE Disposition Time: 05:18 Condition: STABLE Instructions: Alcohol Abuse and Alcoholism (DC) Forms: [employer] (Telugu) - POA Present On Arrival: None - Clinical Impression Clinical Impression: Alcohol abuse with intoxication - Scribe Statement The provider has reviewed the documentation as recorded by the Scribe Woo Brown All medical record entries made by the Scribe were at my direction and personally dictated by me. I have reviewed the chart and agree that the record accurately reflects my personal performance of the history, physical exam, medical decision making, and the department course for this patient. I have also personally directed, reviewed, and agree with the discharge instructions and disposition.
[2018-07-28 05:34] VITALS: BP 145/83; PULSE 76; RESP 16; O2SAT 97
== END 2018-07-28 05:32 | disposition home or self-care (01) ==
LOC: C.ER 23:30
DX: F10.129 Alcohol abuse with intoxication, unspecified (principal)

== ENCOUNTER 2018-07-28 20:33 | Emergency (ER) | payer MEDICAID ==
[2018-07-28 20:34] VITALS: BMI 29.7
--- NOTE | 2018-07-28 20:46 | C.PDOC ---
History Of Present Illness 57 y/o male brought in by ambulance for alcohol intoxication. On arrival, patient admits to drinking today. States he just needs a place to lie down. Otherwise he denies any physical complaints. No suicidal or homicidal ideation. Time Seen by Provider: 07/28/18 20:42 Chief Complaint (Nursing): Substance Abuse History Per: Patient History/Exam Limitations: no limitations Onset/Duration Of Symptoms: Hrs Current Symptoms Are (Timing): Still Present Suicide/Self Injury Attempted (Context): None Modifying Factor(s): Alcohol Involuntary Hold By: None Additional History Per: EMS, Prior Records Past Medical History Reviewed: Historical Data, Nursing Documentation, Vital Signs - Medical History PMH: Anxiety, Arthritis, Bronchitis, CAD, Depression, Diabetes (Pt. did not disclose to short story writer, not aware), Fractures (RIGHT ARM), Gastritis, Gall Bladder Disease (s/p cholecystectomy), HTN, Post Traumatic Stress Disorder, Rheumatoid Arthritis, Seizures, Chronic Pain Denies: Chronic Kidney Disease Surgical History: Cholecystectomy - [facility] Procedures ALCOHOL DETOXIFICATION (07/04/15) APPLICATION OF SPLINT (03/20/13) CLOSURE SKIN & SUBCUTANEOUS NEC (08/14/13) DETOXIFICATION SERVICES FOR SUBSTANCE ABUSE TREATMENT (03/22/16) ESOPHAGOGASTRODUODENOSCOPY [EGD] W/CLOSED BIOPSY (02/16/15) OTHER GROUP THERAPY (03/12/13) PHYSICAL THERAPY NEC (07/04/15) TETANUS TOXOID ADMINIST (01/19/14) Family History: States: Unknown Family Hx - Social History Hx Tobacco Use: No Hx Alcohol Use: Yes (daily) Hx Substance Use: No - Immunization History Hx Tetanus Toxoid Vaccination: No Hx Influenza Vaccination: Yes Hx Pneumococcal Vaccination: Yes Review Of Systems Constitutional: Negative for: Fever, Chills Gastrointestinal: Negative for: Nausea, Vomiting Psych: Positive for: Other (Alcohol abuse). Negative for: Suicidal ideation (or homicidal), Withdrawal Physical Exam - Physical Exam Appears: Non-toxic, No Acute Distress Skin: Warm, Dry Head: Normacephalic Eye(s): bilateral: Normal Inspection Oral Mucosa: Moist Neck: Trachea Midline, Supple Chest: Symmetrical Cardiovascular: Rhythm Regular Respiratory: No Rales, No Rhonchi, No Wheezing Gastrointestinal/Abdominal: Soft, No Tenderness, No Distention Extremity: Bilateral: Atraumatic, Normal Color And Temperature Pulses: Left Dorsalis Pedis: Normal, Right Dorsalis Pedis: Normal Neurological/Psych: Oriented x3 ED Course And Treatment O2 Sat by Pulse Oximetry: 96 Pulse Ox Interpretation: Normal Progress Note: On examination, patient resting comfortably in stretcher. No acute distress. No evidence of recent trauma or fall. Will monitor for clinical sobriety. On reeval, patient remains AAOx3, with clear speech, a. Patient is stable for discharge home. Reevaluation Time: 05:14 Reassessment Condition: Improved Disposition Counseled Patient/Family Regarding: Studies Performed, Diagnosis - Disposition Referrals: [facility] [Outside] Disposition: HOME/ ROUTINE Disposition Time: 20:43 Condition: FAIR Instructions: Alcohol Abuse and Alcoholism (DC) Forms: [employer] (Tamazight) - Clinical Impression Clinical Impression: Acute alcohol intoxication, Alcoholism /alcohol abuse, Chronic alcoholism - Scribe Statement The provider has reviewed the documentation as recorded by the Jada Gunter Provider Attestation: All medical record entries made by the Rominaibe were at my direction and personally dictated by me. I have reviewed the chart and agree that the record accurately reflects my personal performance of the history, physical exam, medical decision making, and the department course for this patient. I have also personally directed, reviewed, and agree with the discharge instructions and disposition.
[2018-07-29 02:01] VITALS: PULSE 105; TEMP 97.9; O2SAT 96
[2018-07-29 05:17] VITALS: BP 165/80; RESP 20
== END 2018-07-29 05:19 | disposition home or self-care (01) ==
LOC: SUPCPDRO 20:33 → C.ER 20:33
DX: F10.229 Alcohol dependence with intoxication, unspecified (principal)

== ENCOUNTER 2018-07-29 22:26 | Emergency (ER) | payer MEDICAID ==
[2018-07-29 22:26] VITALS: BMI 29.7
--- NOTE | 2018-07-30 00:37 | C.PDOC ---
History Of Present Illness 57 y/o male brought in by ambulance for intoxication. On arrival, patient states he only wants a place to stay. Admits to drinking alcohol today. No other physical complaints at this time. Patient denies any suicidal or homicidal ideation. Time Seen by Provider: 07/30/18 00:35 Chief Complaint (Nursing): Lower Extremity Problem/Injury History Per: Patient History/Exam Limitations: intoxication Onset/Duration Of Symptoms: Days Current Symptoms Are (Timing): Still Present Additional History Per: EMS Past Medical History Reviewed: Historical Data, Nursing Documentation, Vital Signs Vital Signs: Last Vital Signs Temp 97.8 F 07/30/18 00:21 Pulse 96 H 07/30/18 00:21 Resp 16 07/30/18 00:21 BP 154/90 H 07/30/18 00:21 Pulse Ox 98 07/30/18 00:21 - Medical History PMH: Anxiety, Arthritis, Bronchitis, CAD, Depression, Diabetes (Pt. did not disclose to abstract writer, not aware), Fractures (RIGHT ARM), Gastritis, Gall Bladder Disease (s/p cholecystectomy), HTN, Post Traumatic Stress Disorder, Rheumatoid Arthritis, Seizures, Chronic Pain Denies: Chronic Kidney Disease Surgical History: Cholecystectomy - [facility] Procedures ALCOHOL DETOXIFICATION (07/04/15) APPLICATION OF SPLINT (03/20/13) CLOSURE SKIN & SUBCUTANEOUS NEC (08/14/13) DETOXIFICATION SERVICES FOR SUBSTANCE ABUSE TREATMENT (03/22/16) ESOPHAGOGASTRODUODENOSCOPY [EGD] W/CLOSED BIOPSY (02/16/15) OTHER GROUP THERAPY (03/12/13) PHYSICAL THERAPY NEC (07/04/15) TETANUS TOXOID ADMINIST (01/19/14) Family History: States: Unknown Family Hx - Social History Hx Tobacco Use: No Hx Alcohol Use: Yes (daily) Hx Substance Use: No - Immunization History Hx Tetanus Toxoid Vaccination: No Hx Influenza Vaccination: Yes Hx Pneumococcal Vaccination: Yes Review Of Systems Constitutional: Negative for: Fever, Chills Gastrointestinal: Negative for: Nausea, Vomiting Psych: Positive for: Other (Alcohol abuse). Negative for: Suicidal ideation Physical Exam - Physical Exam Appears: Non-toxic, No Acute Distress Skin: Warm, Dry Head: Normacephalic Eye(s): bilateral: Normal Inspection Oral Mucosa: Moist Neck: Trachea Midline, Supple Chest: Symmetrical Cardiovascular: Rhythm Regular Respiratory: No Rales, No Rhonchi, No Wheezing Gastrointestinal/Abdominal: Soft, No Tenderness, No Distention Extremity: Bilateral: Atraumatic, Normal Color And Temperature Pulses: Left Dorsalis Pedis: Normal, Right Dorsalis Pedis: Normal Neurological/Psych: Oriented x3 ED Course And Treatment O2 Sat by Pulse Oximetry: 98 (RA) Pulse Ox Interpretation: Normal Progress Note: On examination patient is resting comfortably in stretcher. No complaints offered. Will monitor in the ED for clinical sobriety. On re- evaluation patient remains AAOx3, with clear speech, ambulatory using his wheelchair. Patient is stable for discharge home. Reevaluation Time: 05:45 Disposition Counseled Patient/Family Regarding: Studies Performed, Diagnosis, Need For Followup - Disposition Referrals: [facility] at [facility] [Outside] Disposition: HOME/ ROUTINE Disposition Time: 00:36 Condition: FAIR Instructions: Alcohol Abuse and Alcoholism (DC) Forms: [facility] (American) - Clinical Impression Clinical Impression: Alcohol intoxication, Alcohol abuse, daily use - Scribe Statement The provider has reviewed the documentation as recorded by the Scribe (Leah Gunter) Provider Attestation: All medical record entries made by the Scribe were at my direction and personally dictated by me. I have reviewed the chart and agree that the record accurately reflects my personal performance of the history, physical exam, medical decision making, and the department course for this patient. I have also personally directed, reviewed, and agree with the discharge instructions and disposition.
[2018-07-30 05:19] VITALS: BP 127/86; PULSE 99; RESP 16; TEMP 98.2; O2SAT 98
== END 2018-07-30 06:20 | disposition home or self-care (01) ==
LOC: C.ER 22:26
DX: F10.129 Alcohol abuse with intoxication, unspecified (principal); Y90.9 Presence of alcohol in blood, level not specified

== ENCOUNTER 2018-07-30 22:04 | Emergency (ER) | payer MEDICAID ==
[2018-07-30 22:04] VITALS: BMI 29.7
--- NOTE | 2018-07-30 22:49 | C.PDOC ---
History Of Present Illness 57 year old male is brought to the ED by level designer for alcohol intoxication. 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 Patient denies SI/HI, hallucinations, CP, SOB, nausea, vomit, weakness, numbness. Chief Complaint (Nursing): Substance Abuse History Per: Patient, EMS History/Exam Limitations: intoxication Onset/Duration Of Symptoms: Hrs Current Symptoms Are (Timing): Still Present Suicide/Self Injury Attempted (Context): None Modifying Factor(s): Alcohol Associated Symptoms: denies: Depression, Suicidal Thoughts, Suicidal Plan Recent travel outside of the [place]: No Additional History Per: Patient, EMS Past Medical History Reviewed: Historical Data, Nursing Documentation, Vital Signs Vital Signs: Last Vital Signs Temp 97.8 F 07/30/18 22:29 Pulse 89 07/30/18 22:29 Resp 22 07/30/18 22:29 BP 134/85 07/30/18 22:29 Pulse Ox 98 07/30/18 22:29 - Medical History PMH: Anxiety, Arthritis, Bronchitis, CAD, Depression, Diabetes (Pt. did not disclose to investment underwriter, not aware), Fractures (RIGHT ARM), Gastritis, Gall Bladder Disease (s/p cholecystectomy), HTN, Post Traumatic Stress Disorder, Rheumatoid Arthritis, Seizures, Chronic Pain Denies: Chronic Kidney Disease Surgical History: Cholecystectomy - [facility] Procedures ALCOHOL DETOXIFICATION (07/04/15) APPLICATION OF SPLINT (03/20/13) CLOSURE SKIN & SUBCUTANEOUS NEC (08/14/13) DETOXIFICATION SERVICES FOR SUBSTANCE ABUSE TREATMENT (03/22/16) ESOPHAGOGASTRODUODENOSCOPY [EGD] W/CLOSED BIOPSY (02/16/15) OTHER GROUP THERAPY (03/12/13) PHYSICAL THERAPY NEC (07/04/15) TETANUS TOXOID ADMINIST (01/19/14) Family History: States: Unknown Family Hx - Social History Hx Tobacco Use: No Hx Alcohol Use: Yes (daily) Hx Substance Use: No - Immunization History Hx Tetanus Toxoid Vaccination: No Hx Influenza Vaccination: Yes Hx Pneumococcal Vaccination: Yes Review Of Systems Constitutional: Negative for: Fever, Chills Eyes: Negative for: Vision Change Cardiovascular: Negative for: Chest Pain Respiratory: Negative for: Shortness of Breath Gastrointestinal: Negative for: Nausea, Vomiting Neurological: Negative for: Weakness, Numbness Psych: Negative for: Depression, Suicidal ideation Physical Exam - Physical Exam Appears: Non-toxic, No Acute Distress, Unkempt Skin: Normal Color, Warm, Dry Head: Atraumatic, Normacephalic Eye(s): bilateral: Normal Inspection Neck: Normal ROM, Supple Chest: Symmetrical Cardiovascular: Rhythm Regular Respiratory: Normal Breath Sounds, No Rales, No Rhonchi, No Wheezing Gastrointestinal/Abdominal: Soft, No Tenderness, No Guarding, No Rebound Extremity: Normal ROM Neurological/Psych: Oriented x3, Normal Speech Gait: With Assistance (wheelchair) ED Course And Treatment O2 Sat by Pulse Oximetry: 98 (ON RA) Pulse Ox Interpretation: Normal Disposition Counseled Patient/Family Regarding: Diagnosis - Disposition Referrals: [facility] [Outside] Disposition: HOME/ ROUTINE Disposition Time: 05:45 Condition: STABLE Instructions: Seizures, Adult (DC), Alcohol Abuse and Alcoholism (DC) Forms: [employer] (Thai) - POA Present On Arrival: None - Clinical Impression Clinical Impression: Alcoholism /alcohol abuse, Seizure disorder - Scribe Statement The provider has reviewed the documentation as recorded by the Scribe Woo Brown All medical record entries made by the Scribe were at my direction and personally dictated by me. I have reviewed the chart and agree that the record accurately reflects my personal performance of the history, physical exam, medical decision making, and the department course for this patient. I have also personally directed, reviewed, and agree with the discharge instructions and disposition.
[2018-07-31 01:08] VITALS: TEMP 98.3
[2018-07-31 04:05] VITALS: O2SAT 98
[2018-07-31 04:58] VITALS: BP 127/79; PULSE 92; RESP 20
== END 2018-07-31 05:37 | disposition home or self-care (01) ==
LOC: C.ER 22:04
DX: F10.229 Alcohol dependence with intoxication, unspecified (principal); G40.909 Epilepsy, unspecified, not intractable, without status epilepticus

== ENCOUNTER 2018-07-31 19:35 | Emergency (ER) | payer MEDICAID ==
[2018-07-31 19:35] VITALS: BMI 29.7
[2018-07-31 20:04] VITALS: TEMP 98.3
--- NOTE | 2018-07-31 20:12 | C.PDOC ---
History Of Present Illness 57 y/o male presents to the ED complaining of chronic leg pain. He arrived to the ED in a wheelchair. Contrary to triage, the patient states he has been drinking today.The patient offers no further medical complaints at this time. Time Seen by Provider: 07/31/18 20:07 Chief Complaint (Nursing): Lower Extremity Problem/Injury History Per: Patient History/Exam Limitations: no limitations Onset/Duration Of Symptoms: Days Current Symptoms Are (Timing): Still Present Modifying Factor(s): Alcohol Severity: Moderate Pain Scale Rating Of: 4 Recent travel outside of the [place]: No Past Medical History Reviewed: Historical Data, Nursing Documentation, Vital Signs Vital Signs: Last Vital Signs Temp 98.3 F 07/31/18 19:55 Pulse 92 H 07/31/18 19:55 Resp 20 07/31/18 19:55 BP 143/89 07/31/18 19:55 Pulse Ox 96 07/31/18 19:55 - Medical History PMH: Anxiety, Arthritis, Bronchitis, CAD, Depression, Diabetes (Pt. did not disclose to writer producer, not aware), Fractures (RIGHT ARM), Gastritis, Gall Bladder Disease (s/p cholecystectomy), HTN, Post Traumatic Stress Disorder, Rheumatoid Arthritis, Seizures, Chronic Pain Denies: Chronic Kidney Disease Surgical History: Cholecystectomy - [facility] Procedures ALCOHOL DETOXIFICATION (07/04/15) APPLICATION OF SPLINT (03/20/13) CLOSURE SKIN & SUBCUTANEOUS NEC (08/14/13) DETOXIFICATION SERVICES FOR SUBSTANCE ABUSE TREATMENT (03/22/16) ESOPHAGOGASTRODUODENOSCOPY [EGD] W/CLOSED BIOPSY (02/16/15) OTHER GROUP THERAPY (03/12/13) PHYSICAL THERAPY NEC (07/04/15) TETANUS TOXOID ADMINIST (01/19/14) Family History: States: Unknown Family Hx - Social History Hx Tobacco Use: No Hx Alcohol Use: Yes (daily) Hx Substance Use: No - Immunization History Hx Tetanus Toxoid Vaccination: No Hx Influenza Vaccination: Yes Hx Pneumococcal Vaccination: Yes Review Of Systems Constitutional: Negative for: Fever, Chills Cardiovascular: Negative for: Chest Pain Musculoskeletal: Positive for: Leg Pain Neurological: Negative for: Weakness, Numbness Psych: Negative for: Depression, Suicidal ideation Physical Exam - Physical Exam Appears: Non-toxic, No Acute Distress (AOB), Other (AOB) Skin: Warm, Dry Head: Normacephalic Eye(s): bilateral: Normal Inspection Oral Mucosa: Moist Neck: Trachea Midline, Supple Chest: Symmetrical Cardiovascular: Rhythm Regular Respiratory: No Rales, No Rhonchi, No Wheezing Gastrointestinal/Abdominal: Soft, No Tenderness, No Distention Extremity: Bilateral: Normal Color And Temperature Pulses: Left Dorsalis Pedis: Normal, Right Dorsalis Pedis: Normal Neurological/Psych: Other (Awake, alert, responsive ) Gait: Unable To Assess (pt using wheelchair) ED Course And Treatment O2 Sat by Pulse Oximetry: 96 (RA) Pulse Ox Interpretation: Normal Reevaluation Time: 05:02 Reassessment Condition: Improved Disposition Counseled Patient/Family Regarding: Studies Performed, Diagnosis - Disposition Referrals: [facility] at [facility] [Outside] Disposition: HOME/ ROUTINE Disposition Time: 20:08 Condition: FAIR Instructions: Alcohol Abuse and Alcoholism (DC) Forms: [employer] [facility] (Ukrainian) - Clinical Impression Clinical Impression: Alcohol abuse with intoxication - PA / SUPERVISOR TYPE DISK QUALITY CONTROL / 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 - Scribe Statement The provider has reviewed the documentation as recorded by the Scribe (Nathalie Carver) Provider Attestation: All medical record entries made by the Scribe were at my direction and personally dictated by me. I have reviewed the chart and agree that the record accurately reflects my personal performance of the history, physical exam, medical decision making, and the department course for this patient. I have also personally directed, reviewed, and agree with the discharge instructions and disposition.
[2018-08-01 05:30] VITALS: BP 145/76; PULSE 81; RESP 16
[2018-08-01 05:31] VITALS: O2SAT 96
== END 2018-08-01 05:31 | disposition home or self-care (01) ==
LOC: C.ER 19:35
DX: F10.129 Alcohol abuse with intoxication, unspecified (principal); Y90.9 Presence of alcohol in blood, level not specified

== ENCOUNTER 2018-08-01 21:11 | Emergency (ER) | payer MEDICAID ==
[2018-08-01 21:12] VITALS: BMI 29.7
--- NOTE | 2018-08-01 21:44 | C.PDOC ---
History Of Present Illness Patient presents to the ED with alcohol intoxication. Has a history of multiple ED visits for EtOH abuse. He denies any SI, HI, recent trauma and fall. Time Seen by Provider: 08/01/18 21:42 Chief Complaint (Nursing): Medical Clearance History Per: Patient History/Exam Limitations: no limitations Onset/Duration Of Symptoms: Hrs Current Symptoms Are (Timing): Still Present Reports Recent Trauma: none Reports Recently: Seen In ED, Treated By A Physician, Hospitalized Recent travel outside of the [place]: No Past Medical History Reviewed: Historical Data, Nursing Documentation, Vital Signs Vital Signs: Last Vital Signs Temp 97.5 F L 08/01/18 21:28 Pulse 70 08/01/18 21:28 Resp 16 08/01/18 21:28 BP 130/70 08/01/18 21:28 Pulse Ox 97 08/01/18 21:28 - Medical History PMH: Anxiety, Arthritis, Bronchitis, CAD, Depression, Diabetes (Pt. did not disclose to health technical writer, not aware), Fractures (RIGHT ARM), Gastritis, Gall Bladder Disease (s/p cholecystectomy), HTN, Post Traumatic Stress Disorder, Rheumatoid Arthritis, Seizures, Chronic Pain Denies: Chronic Kidney Disease Surgical History: Cholecystectomy - [facility] Procedures ALCOHOL DETOXIFICATION (07/04/15) APPLICATION OF SPLINT (03/20/13) CLOSURE SKIN & SUBCUTANEOUS NEC (08/14/13) DETOXIFICATION SERVICES FOR SUBSTANCE ABUSE TREATMENT (03/22/16) ESOPHAGOGASTRODUODENOSCOPY [EGD] W/CLOSED BIOPSY (02/16/15) OTHER GROUP THERAPY (03/12/13) PHYSICAL THERAPY NEC (07/04/15) TETANUS TOXOID ADMINIST (01/19/14) Family History: States: No Known Family Hx - Social History Hx Tobacco Use: No Hx Alcohol Use: Yes (daily) Hx Substance Use: No - Immunization History Hx Tetanus Toxoid Vaccination: No Hx Influenza Vaccination: Yes Hx Pneumococcal Vaccination: Yes Review Of Systems Constitutional: Negative for: Fever, Chills Cardiovascular: Negative for: Chest Pain, Palpitations Respiratory: Negative for: Cough, Shortness of Breath Gastrointestinal: Negative for: Nausea, Vomiting, Diarrhea Psych: Negative for: Suicidal ideation, Other (Homicidal Ideation) Physical Exam - Physical Exam Appears: Non-toxic, Other (AOB) Skin: Warm, Dry Head: Normacephalic Oral Mucosa: Moist Neck: Supple Chest: Symmetrical, No Tenderness Cardiovascular: Rhythm Regular Respiratory: No Rales, No Rhonchi, No Wheezing Gastrointestinal/Abdominal: Soft, No Tenderness Neurological/Psych: Oriented x3 Gait: Unable To Assess (using a wheelchair) ED Course And Treatment O2 Sat by Pulse Oximetry: 97 (RA) Pulse Ox Interpretation: Normal Reevaluation Time: 05:32 Reassessment Condition: Improved Disposition Counseled Patient/Family Regarding: Studies Performed, Diagnosis, Need For Followup - Disposition Referrals: [facility] [Outside] Disposition: HOME/ ROUTINE Disposition Time: 21:43 Condition: FAIR Instructions: Alcohol Abuse and Alcoholism (DC) Forms: [employer] (Papua [place]inean) - Clinical Impression Clinical Impression: Alcohol intoxication, Alcohol abuse with intoxication, Chronic alcoholism - Scribe Statement The provider has reviewed the documentation as recorded by the Scribe (Huyen Fox) All medical record entries made by the Scribe were at my direction and personally dictated by me. I have reviewed the chart and agree that the record accurately reflects my personal performance of the history, physical exam, medical decision making, and the department course for this patient. I have also personally directed, reviewed, and agree with the discharge instructions and d isposition.
[2018-08-02 04:40] VITALS: BP 124/66; PULSE 92; RESP 18; TEMP 98.7
[2018-08-02 05:32] VITALS: O2SAT 97
== END 2018-08-02 05:30 | disposition home or self-care (01) ==
LOC: C.ER 21:11
DX: F10.229 Alcohol dependence with intoxication, unspecified (principal); E11.9 Type 2 diabetes mellitus without complications; I25.10 Atherosclerotic heart disease of native coronary artery without angina pectoris

== ENCOUNTER 2018-08-02 20:19 | Emergency (ER) | payer MEDICAID ==
[2018-08-02 20:19] VITALS: BMI 29.7
--- NOTE | 2018-08-02 23:49 | C.PDOC ---
History Of Present Illness 57 year old male patient presents to the ER intoxicated, also c/o right leg pain. Patient admits to drinking alcohol today, and history is limited due to alcohol intoxication. Time Seen by Provider: 08/02/18 20:31 Chief Complaint (Nursing): Substance Abuse History Per: Patient, EMS History/Exam Limitations: intoxication Onset/Duration Of Symptoms: Unknown Current Symptoms Are (Timing): Still Present Modifying Factor(s): Alcohol Severity: Moderate Past Medical History Reviewed: Historical Data, Nursing Documentation, Vital Signs Vital Signs: Last Vital Signs Temp 97.8 F 08/02/18 22:26 Pulse 87 08/02/18 22:26 Resp 20 08/02/18 22:26 BP 148/79 08/02/18 22:26 Pulse Ox 98 08/02/18 22:26 - Medical History PMH: Anxiety, Arthritis, Bronchitis, CAD, Depression, Diabetes (Pt. did not disclose to display card writer, not aware), Fractures (RIGHT ARM), Gastritis, Gall Bladder Disease (s/p cholecystectomy), HTN, Post Traumatic Stress Disorder, Rheumatoid Arthritis, Seizures, Chronic Pain Surgical History: Cholecystectomy - [facility] Procedures ALCOHOL DETOXIFICATION (07/04/15) APPLICATION OF SPLINT (03/20/13) CLOSURE SKIN & SUBCUTANEOUS NEC (08/14/13) DETOXIFICATION SERVICES FOR SUBSTANCE ABUSE TREATMENT (03/22/16) ESOPHAGOGASTRODUODENOSCOPY [EGD] W/CLOSED BIOPSY (02/16/15) OTHER GROUP THERAPY (03/12/13) PHYSICAL THERAPY NEC (07/04/15) TETANUS TOXOID ADMINIST (01/19/14) Family History: States: No Known Family Hx - Social History Hx Tobacco Use: No Hx Alcohol Use: Yes (daily) Hx Substance Use: No - Immunization History Hx Tetanus Toxoid Vaccination: No Hx Influenza Vaccination: Yes Hx Pneumococcal Vaccination: Yes Review Of Systems Constitutional: Negative for: Fever Cardiovascular: Negative for: Chest Pain Respiratory: Negative for: Shortness of Breath Gastrointestinal: Negative for: Nausea, Vomiting, Abdominal Pain, Diarrhea Musculoskeletal: Positive for: Leg Pain (right) Neurological: Negative for: Headache, Dizziness Psych: Positive for: Other (alcohol intoxication) Physical Exam - Physical Exam Appears: Well, No Acute Distress, Unkempt, Other (malodorous, appears intoxivated ) Skin: Normal Color, Warm, Dry Head: Atraumatic, Normacephalic Eye(s): bilateral: Normal Inspection, PERRL, EOMI Oral Mucosa: Moist Neck: No Midline Cervical Tenderness, No Paracervical Tenderness, No Step Off Deformity, Supple Cardiovascular: Rhythm Regular Respiratory: Normal Breath Sounds, No Rales, No Rhonchi, No Wheezing Gastrointestinal/Abdominal: Normal Exam, Bowel Sounds, Soft, No Tenderness Extremity: Normal ROM (B/L legs ), No Tenderness, No Pedal Edema, No Calf Tenderness, No Deformity, No Swelling, Other (no lacerations/abr asions/contusions) Extremity: Bilateral: Atraumatic, Normal Color And Temperature, Normal ROM Pulses: Left Dorsalis Pedis: Normal, Right Dorsalis Pedis: Normal Neurological/Psych: Other (intoxiacted but arousable to verbal stimuli, moving all 4 extremities spontaneously) ED Course And Treatment O2 Sat by Pulse Oximetry: 98 (RA) Pulse Ox Interpretation: Normal - CT Scan/US CT head Other Rad Studies (CT/US): Read By Radiologist, Radiology Report Reviewed CT/US Interpretation: Name:XOCHITL RATLIFF Exam Date:Aug 02, 2018 10:18:27 PM EDT. Modality Type:CT\SR. Description:CT - BRAIN. Gender:M Laterality:Not applicable. :60 Referring Physician:DOUGLAS RUBIO MD. EXAM: CT Head Without IV contrast. CLINICAL HISTORY: Etoh, fall. TECHNIQUE: Axial computed tomography images of the head/brain without intravenous contrast. COMPARISON: 01/13/2018. FINDINGS: BRAIN. No acute intraparenchymal hemorrhage. No mass lesion. No CT evidence for acute territorial infarct. No midline shift or extra-axial collections. VENTRICLES: No hydrocephalus. ORBITS: The orbits are unremarkable. SINUSES AND MASTOIDS: Mild inflammatory changes maxillary sinuses. BONES: No fracture. IMPRESSION: No acute intracranial abnormality. Mild inflammatory changes maxillary sinuses. Progress Note: While in ED, patient climbed out of stretcher and fell, hitting his head on the floor. (+) right sided scalp contusion. CT head and accucheck ordered and reviewed. Reevaluation Time: 05:15 Reassessment Condition: Improved (On reassessment, patient is AAOx3, does not ambulate due to stroke, uses wheechair. He is clinically sober,, will discharge.) Disposition Counseled Patient/Family Regarding: Diagnosis, Need For Followup - Disposition Referrals: [facility] [Outside] Disposition: HOME/ ROUTINE Disposition Time: 05:15 Condition: STABLE Instructions: Minor Head Injury (DC), Alcohol Abuse and Alcoholism (DC) Forms: [employer] (Amharic) - Clinical Impression Clinical Impression: Alcohol intoxication, Closed head injury - Scribe Statement The provider has reviewed the documentation as recorded by the Scribe Vigil Do Provider Attestation: All medical record entries made by the Scribe were at my direction and personally dictated by me. I have reviewed the chart and agree that the record accurately reflects my personal performance of the history, physical exam, medical decision making, and the department course for this patient. I have also personally directed, reviewed, and agree with the discharge instructions and disposition.
[2018-08-03 05:32] VITALS: BP 144/83; PULSE 82; RESP 18; TEMP 98.3
--- NOTE | 2018-08-03 09:53 | CT ---
Date of service: 08/02/2018 PROCEDURE: CT HEAD WITHOUT CONTRAST. HISTORY: head injury COMPARISON: Noncontrast head CT performed 01/13/18 TECHNIQUE: Axial computed tomography images were obtained through the head/brain without intravenous contrast. Radiation dose: Total exam DLP = 971.15 mGy-cm. This CT exam was performed using one or more of the following dose reduction techniques: Automated exposure control, adjustment of the mA and/or kV according to patient size, and/or use of iterative reconstruction technique. FINDINGS: HEMORRHAGE: No intracranial hemorrhage. BRAIN: No mass effect or edema. Arceo-white matter differentiation appears intact. Please note that MRI with diffusion imaging is more sensitive in the detection of acute ischemic event. VENTRICLES: No hydrocephalus. CALVARIUM: Unremarkable. PARANASAL SINUSES: Mild mucosal thickening of the bilateral maxillary sinuses. MASTOID AIR CELLS: Unremarkable as visualized. No inflammatory changes. OTHER FINDINGS: None. IMPRESSION: No acute intracranial pathology identified. Mild mucosal thickening of the maxillary sinuses. Preliminary impression was provided by [employer].
[2018-08-11 07:53] VITALS: O2SAT 98
== END 2018-08-03 05:22 | disposition home or self-care (01) ==
LOC: C.ER 20:19
DX: S09.90XA Unspecified injury of head, initial encounter (principal); W17.89XA Other fall from one level to another, initial encounter; Y92.239 Unspecified place in hospital as the place of occurrence of the external cause; F10.129 Alcohol abuse with intoxication, unspecified; E11.9 Type 2 diabetes mellitus without complications; I25.10 Atherosclerotic heart disease of native coronary artery without angina pectoris

== ENCOUNTER 2018-08-03 19:10 | Emergency (ER) | payer MEDICAID ==
[2018-08-03 19:10] VITALS: BMI 29.7
[2018-08-03 19:29] VITALS: TEMP 98.1
--- NOTE | 2018-08-03 19:32 | C.PDOC ---
History Of Present Illness 57 year old male presents to the ED for alcohol intoxication. Patient admits to drinking alcohol today. Patient has multiple prior visits to the ED for similar presentation. Patient denies SI/HI, hallucinations, CP, SOB, dizziness, weakness, numbness. Chief Complaint (Nursing): Substance Abuse History Per: Patient History/Exam Limitations: intoxication Onset/Duration Of Symptoms: Hrs Current Symptoms Are (Timing): Still Present Suicide/Self Injury Attempted (Context): None Modifying Factor(s): Alcohol Associated Symptoms: denies: Depression, Suicidal Thoughts, Suicidal Plan Additional History Per: Patient Past Medical History Reviewed: Historical Data, Nursing Documentation, Vital Signs Vital Signs: Last Vital Signs Temp 98.1 F 08/03/18 19:28 Pulse 89 08/03/18 19:28 Resp 16 08/03/18 19:28 BP 131/81 08/03/18 19:28 Pulse Ox 97 08/03/18 19:28 - Medical History PMH: Anxiety, Arthritis, Bronchitis, CAD, Depression, Diabetes (Pt. did not disclose to financial writer, not aware), Fractures (RIGHT ARM), Gastritis, Gall Bladder Disease (s/p cholecystectomy), HTN, Post Traumatic Stress Disorder, Rheumatoid Arthritis, Seizures, Chronic Pain Denies: Chronic Kidney Disease Surgical History: Cholecystectomy - [facility] Procedures ALCOHOL DETOXIFICATION (07/04/15) APPLICATION OF SPLINT (03/20/13) CLOSURE SKIN & SUBCUTANEOUS NEC (08/14/13) DETOXIFICATION SERVICES FOR SUBSTANCE ABUSE TREATMENT (03/22/16) ESOPHAGOGASTRODUODENOSCOPY [EGD] W/CLOSED BIOPSY (02/16/15) OTHER GROUP THERAPY (03/12/13) PHYSICAL THERAPY NEC (07/04/15) TETANUS TOXOID ADMINIST (01/19/14) Family History: States: Unknown Family Hx - Social History Hx Tobacco Use: No Hx Alcohol Use: Yes (daily) Hx Substance Use: No - Immunization History Hx Tetanus Toxoid Vaccination: No Hx Influenza Vaccination: Yes Hx Pneumococcal Vaccination: Yes Review Of Systems Constitutional: Negative for: Fever, Chills Cardiovascular: Negative for: Chest Pain Respiratory: Negative for: Shortness of Breath Gastrointestinal: Negative for: Nausea, Vomiting, Abdominal Pain Neurological: Negative for: Weakness, Numbness Psych: Negative for: Depression, Suicidal ideation Physical Exam - Physical Exam Appears: Non-toxic, No Acute Distress Skin: Normal Color, Warm, Dry Head: Atraumatic, Normacephalic Eye(s): bilateral: Normal Inspection Neck: Normal ROM Chest: Symmetrical Cardiovascular: Rhythm Regular Respiratory: Normal Breath Sounds, No Rales, No Rhonchi, No Wheezing Gastrointestinal/Abdominal: Soft, No Tenderness, No Guarding, No Rebound Extremity: Normal ROM, No Tenderness, No Swelling Neurological/Psych: Oriented x3, Normal Speech, Normal Cognition Gait: With Assistance (wheelchair) ED Course And Treatment O2 Sat by Pulse Oximetry: 97 (ON RA) Pulse Ox Interpretation: Normal Disposition Counseled Patient/Family Regarding: Diagnosis - Disposition Referrals: at [facility] [Outside] Disposition: HOME/ ROUTINE Disposition Time: 05:35 Condition: STABLE Instructions: Alcohol Abuse and Alcoholism (DC) Forms: [employer] (German) - POA Present On Arrival: None - Clinical Impression Clinical Impression: Alcohol abuse with intoxication - Scribe Statement The provider has reviewed the documentation as recorded by the Scribe Woo Brown All medical record entries made by the Scribe were at my direction and personally dictated by me. I have reviewed the chart and agree that the record accurately reflects my personal performance of the history, physical exam, medical decision making, and the department course for this patient. I have also personally directed, reviewed, and agree with the discharge instructions and disposition.
[2018-08-04 02:24] VITALS: BP 110/70; PULSE 70; RESP 14
[2018-08-04 04:07] VITALS: O2SAT 97
== END 2018-08-04 05:52 | disposition home or self-care (01) ==
LOC: C.ER 19:10
DX: F10.129 Alcohol abuse with intoxication, unspecified (principal); Y90.9 Presence of alcohol in blood, level not specified

== ENCOUNTER 2018-08-04 20:25 | Emergency (ER) | payer MEDICAID ==
[2018-08-04 20:25] VITALS: BMI 29.7
--- NOTE | 2018-08-04 23:11 | C.PDOC ---
History Of Present Illness 57 year old male presents to the ED for alcohol intoxication. Patient admits to drinking alcohol tonight and is requesting for a place to spend the night. Patient has multiple prior visits to the ED with similar presentation. Patient denies SI/HI, hallucinations, CP, SOB, dizziness, weakness, numbness. Time Seen by Provider: 08/04/18 23:10 Chief Complaint (Nursing): Substance Abuse History Per: Patient History/Exam Limitations: intoxication Onset/Duration Of Symptoms: Days Current Symptoms Are (Timing): Still Present Suicide/Self Injury Attempted (Context): None Modifying Factor(s): Alcohol Associated Symptoms: denies: Depression, Suicidal Thoughts, Suicidal Plan Recent travel outside of the [place]: No Additional History Per: Patient Past Medical History Reviewed: Historical Data, Nursing Documentation, Vital Signs Vital Signs: Last Vital Signs Temp 97.5 F L 08/04/18 22:38 Pulse 84 08/04/18 22:38 Resp 16 08/04/18 22:38 BP 130/81 08/04/18 22:38 Pulse Ox 97 08/04/18 22:38 - Medical History PMH: Anxiety, Arthritis, Bronchitis, CAD, Depression, Diabetes (Pt. did not disclose to mortgage or loan underwriter, not aware), Fractures (RIGHT ARM), Gastritis, Gall Bladder Disease (s/p cholecystectomy), HTN, Post Traumatic Stress Disorder, Rheumatoid Arthritis, Seizures, Chronic Pain Denies: Chronic Kidney Disease Surgical History: Cholecystectomy - [facility] Procedures ALCOHOL DETOXIFICATION (07/04/15) APPLICATION OF SPLINT (03/20/13) CLOSURE SKIN & SUBCUTANEOUS NEC (08/14/13) DETOXIFICATION SERVICES FOR SUBSTANCE ABUSE TREATMENT (03/22/16) ESOPHAGOGASTRODUODENOSCOPY [EGD] W/CLOSED BIOPSY (02/16/15) OTHER GROUP THERAPY (03/12/13) PHYSICAL THERAPY NEC (07/04/15) TETANUS TOXOID ADMINIST (01/19/14) Family History: States: Unknown Family Hx - Social History Hx Tobacco Use: No Hx Alcohol Use: Yes (daily) Hx Substance Use: No - Immunization History Hx Tetanus Toxoid Vaccination: No Hx Influenza Vaccination: Yes Hx Pneumococcal Vaccination: Yes Review Of Systems Constitutional: Negative for: Fever, Chills Eyes: Negative for: Vision Change Cardiovascular: Negative for: Chest Pain Respiratory: Negative for: Shortness of Breath Gastrointestinal: Negative for: Nausea, Vomiting Psych: Negative for: Depression, Suicidal ideation Physical Exam - Physical Exam Appears: Non-toxic, No Acute Distress Skin: Warm, Dry Head: Normacephalic Eye(s): bilateral: Normal Inspection Neck: Supple Chest: Symmetrical Cardiovascular: Rhythm Regular Respiratory: No Rales, No Rhonchi, No Wheezing Gastrointestinal/Abdominal: Soft, No Tenderness, No Guarding, No Rebound Extremity: Bilateral: Atraumatic, Normal Color And Temperature, Normal ROM Neurological/Psych: Oriented x3, Normal Speech Gait: With Assistance (wheelchair) ED Course And Treatment O2 Sat by Pulse Oximetry: 97 (ON RA) Pulse Ox Interpretation: Normal Disposition Counseled Patient/Family Regarding: Studies Performed, Diagnosis, Need For Followup - Disposition Referrals: [facility] at [facility] [Outside] Disposition: HOME/ ROUTINE Disposition Time: 23:10 Condition: FAIR Instructions: Alcohol Abuse and Alcoholism (DC) Forms: [employer] (Faroese) - Clinical Impression Clinical Impression: Alcoholism /alcohol abuse, Chronic alcoholism, Alcohol intoxication - Scribe Statement The provider has reviewed the documentation as recorded by the Scribe Woo Brown All medical record entries made by the Scribe were at my direction and personally dictated by me. I have reviewed the chart and agree that the record accurately reflects my personal performance of the history, physical exam, medical decision making, and the department course for this patient. I have also personally directed, reviewed, and agree with the discharge instructions and disposition.
[2018-08-05 05:09] VITALS: RESP 20
[2018-08-05 05:10] VITALS: BP 136/68; PULSE 87; TEMP 97.3; O2SAT 97
== END 2018-08-05 05:12 | disposition home or self-care (01) ==
LOC: C.ER 20:25
DX: F10.229 Alcohol dependence with intoxication, unspecified (principal); E11.9 Type 2 diabetes mellitus without complications

== ENCOUNTER 2018-08-05 19:46 | Emergency (ER) | payer MEDICAID ==
[2018-08-05 19:46] VITALS: BMI 29.7
--- NOTE | 2018-08-05 20:21 | C.PDOC ---
History Of Present Illness Patient presents to the ER via EMS after being found intoxicated in public. Denies physical complaints at this time. Time Seen by Provider: 08/05/18 20:20 Chief Complaint (Nursing): Substance Abuse History Per: Patient, EMS History/Exam Limitations: no limitations Onset/Duration Of Symptoms: Hrs Current Symptoms Are (Timing): Still Present Suicide/Self Injury Attempted (Context): None Modifying Factor(s): Alcohol Severity: None Pain Scale Rating Of: 0 Associated Symptoms: denies: Depression, Suicidal Thoughts Involuntary Hold By: None Recent travel outside of the [place]: No Past Medical History Reviewed: Historical Data, Nursing Documentation, Vital Signs - Medical History PMH: Anxiety, Arthritis, Bronchitis, CAD, Depression, Diabetes (Pt. did not disclose to designer writer, not aware), Fractures (RIGHT ARM), Gastritis, Gall Bladder Disease (s/p cholecystectomy), HTN, Post Traumatic Stress Disorder, Rheumatoid Arthritis, Seizures, Chronic Pain Denies: Chronic Kidney Disease Surgical History: Cholecystectomy - [facility] Procedures ALCOHOL DETOXIFICATION (07/04/15) APPLICATION OF SPLINT (03/20/13) CLOSURE SKIN & SUBCUTANEOUS NEC (08/14/13) DETOXIFICATION SERVICES FOR SUBSTANCE ABUSE TREATMENT (03/22/16) ESOPHAGOGASTRODUODENOSCOPY [EGD] W/CLOSED BIOPSY (02/16/15) OTHER GROUP THERAPY (03/12/13) PHYSICAL THERAPY NEC (07/04/15) TETANUS TOXOID ADMINIST (01/19/14) Family History: States: No Known Family Hx - Social History Hx Tobacco Use: No Hx Alcohol Use: Yes (daily) Hx Substance Use: No - Immunization History Hx Tetanus Toxoid Vaccination: No Hx Influenza Vaccination: Yes Hx Pneumococcal Vaccination: Yes Review Of Systems Constitutional: Negative for: Fever, Chills Cardiovascular: Negative for: Chest Pain, Palpitations Respiratory: Negative for: Cough, Shortness of Breath Gastrointestinal: Negative for: Nausea, Vomiting Neurological: Negative for: Weakness, Numbness Physical Exam - Physical Exam Appears: Non-toxic, Other (ETOH on breath, no sign of injury) Skin: Warm, Dry Head: Normacephalic Oral Mucosa: Moist Chest: Symmetrical, No Tenderness Cardiovascular: Rhythm Regular Respiratory: No Rales, No Rhonchi, No Wheezing Gastrointestinal/Abdominal: Soft, No Tenderness Neurological/Psych: Oriented x3 ED Course And Treatment O2 Sat by Pulse Oximetry: 95 Pulse Ox Interpretation: Normal Reevaluation Time: 04:55 Reassessment Condition: Improved Disposition Counseled Patient/Family Regarding: Studies Performed, Diagnosis - Disposition Referrals: [facility] at [facility] [Outside] Disposition: HOME/ ROUTINE Disposition Time: 20:21 Condition: FAIR Instructions: Alcohol Abuse and Alcoholism (DC) Forms: [employer] (Romanian) - Clinical Impression Clinical Impression: Chronic alcoholism - Scribe Statement The provider has reviewed the documentation as recorded by the Scribjosé miguel Ramirez All medical record entries made by the Rominaibjosé miguel were at my direction and personally dictated by me. I have reviewed the chart and agree that the record accurately reflects my personal performance of the history, physical exam, medi cody decision making, and the department course for this patient. I have also personally directed, reviewed, and agree with the discharge instructions and disposition.
[2018-08-06 00:39] VITALS: RESP 14
[2018-08-06 05:58] VITALS: BP 132/84; PULSE 72; TEMP 97.9; O2SAT 98
== END 2018-08-06 05:58 | disposition home or self-care (01) ==
LOC: C.ER 19:46
DX: F10.229 Alcohol dependence with intoxication, unspecified (principal); Y90.9 Presence of alcohol in blood, level not specified

== ENCOUNTER 2018-08-06 20:32 | Emergency (ER) | payer MEDICAID ==
[2018-08-06 20:32] VITALS: BMI 29.7
--- NOTE | 2018-08-06 21:01 | C.PDOC ---
History Of Present Illness 57 year old male presents to the ER with acute ETOH intoxication requesting a place to spend the night. Denies any complaints at this time. Time Seen by Provider: 08/06/18 20:55 Chief Complaint (Nursing): Substance Abuse History Per: Patient History/Exam Limitations: no limitations Onset/Duration Of Symptoms: Hrs Current Symptoms Are (Timing): Still Present Suicide/Self Injury Attempted (Context): None Modifying Factor(s): Alcohol Associated Symptoms: denies: Depression, Suicidal Thoughts Involuntary Hold By: None Recent travel outside of the [place]: No Past Medical History Reviewed: Historical Data, Nursing Documentation, Vital Signs Vital Signs: Last Vital Signs Temp 97 F L 08/06/18 20:34 Pulse 84 08/06/18 20:34 Resp 16 08/06/18 20:34 BP 130/70 08/06/18 20:34 Pulse Ox 96 08/06/18 20:34 - Medical History PMH: Anxiety, Arthritis, Bronchitis, CAD, Depression, Diabetes (Pt. did not disclose to short story writer, not aware), Fractures (RIGHT ARM), Gastritis, Gall Bladder Disease (s/p cholecystectomy), HTN, Post Traumatic Stress Disorder, Rheumatoid Arthritis, Seizures, Chronic Pain Denies: Chronic Kidney Disease Surgical History: Cholecystectomy - [facility] Procedures ALCOHOL DETOXIFICATION (07/04/15) APPLICATION OF SPLINT (03/20/13) CLOSURE SKIN & SUBCUTANEOUS NEC (08/14/13) DETOXIFICATION SERVICES FOR SUBSTANCE ABUSE TREATMENT (03/22/16) ESOPHAGOGASTRODUODENOSCOPY [EGD] W/CLOSED BIOPSY (02/16/15) OTHER GROUP THERAPY (03/12/13) PHYSICAL THERAPY NEC (07/04/15) TETANUS TOXOID ADMINIST (01/19/14) Family History: States: Unknown Family Hx - Social History Hx Tobacco Use: No Hx Alcohol Use: Yes (daily) Hx Substance Use: No - Immunization History Hx Tetanus Toxoid Vaccination: No Hx Influenza Vaccination: Yes Hx Pneumococcal Vaccination: Yes Review Of Systems Except As Marked, All Systems Reviewed And Found Negative. Constitutional: Positive for: Other (ETOH intoxication) Physical Exam - Physical Exam Additional Physical Exam Comments: Constitutional: ETOH on breath. No sign of injury. Head: Normocephalic. Atraumatic. Eyes: PERRL. ENT: Moist mucous membranes. Neck: Supple. Cardiovascular: Regular rate. Radial pulse 2+ bilaterally. Chest: No tenderness. Respiratory: Clear to auscultation bilaterally. GI: Soft. Nontender. Nondistended. Back: No CVA tenderness. Musculoskeletal: No tenderness or swelling of extremities. Skin: No rash. Neurologic: Alert, no focal deficit. ED Course And Treatment O2 Sat by Pulse Oximetry: 96 (Room air) Pulse Ox Interpretation: Normal Medical Decision Making Medical Decision Making: Will monitor patient for sobriety. Disposition - Disposition Disposition: HOME/ ROUTINE Disposition Time: 21:00 Condition: STABLE Instructions: Alcohol Abuse and Alcoholism (DC) Forms: [employer] (Hungarian) - Clinical Impression Clinical Impression: Alcohol intoxication - Scribe Statement The provider has reviewed the documentation as recorded by the Scribe Fabián Ramirez All medical record entries made by the Scribe were at my direction and personally dictated by me. I have reviewed the chart and agree that the record accurately reflects my personal performance of the history, physical exam, medical decision making, and the department course for this patient. I have also personally directed, reviewed, and agree with the discharge instructions and disposition.
[2018-08-07 05:11] VITALS: BP 135/84; PULSE 64; RESP 14; TEMP 98; O2SAT 95
== END 2018-08-07 05:11 | disposition home or self-care (01) ==
LOC: C.ER 20:32
DX: F10.129 Alcohol abuse with intoxication, unspecified (principal); Y90.9 Presence of alcohol in blood, level not specified

== ENCOUNTER 2018-08-07 19:55 | Emergency (ER) | payer MEDICAID ==
[2018-08-07 19:56] VITALS: BMI 29.7
--- NOTE | 2018-08-07 23:08 | C.PDOC ---
History Of Present Illness 57 year old male presents to the ER with acute ETOH intoxication requesting a place to spend the night. Patient has no complaints at this time. Time Seen by Provider: 08/07/18 20:11 Chief Complaint (Nursing): Substance Abuse History Per: Patient History/Exam Limitations: no limitations Onset/Duration Of Symptoms: Hrs Current Symptoms Are (Timing): Still Present Suicide/Self Injury Attempted (Context): None Modifying Factor(s): Alcohol Associated Symptoms: denies: Depression, Suicidal Thoughts Involuntary Hold By: None Recent travel outside of the [place]: No Past Medical History Reviewed: Historical Data, Nursing Documentation, Vital Signs Vital Signs: Last Vital Signs Temp 97.6 F 08/07/18 20:21 Pulse 81 08/07/18 20:21 Resp 22 08/07/18 20:21 BP 141/91 H 08/07/18 20:21 Pulse Ox 96 08/07/18 20:21 - Medical History PMH: Anxiety, Arthritis, Bronchitis, CAD, Depression, Diabetes (Pt. 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 book writer, not aware), Fractures (RIGHT ARM), Gastritis, Gall Bladder Disease (s/p cholecystectomy), HTN, Post Traumatic Stress Disorder, Rheumatoid Arthritis, Seizures, Chronic Pain Denies: Chronic Kidney Disease Surgical History: Cholecystectomy - [facility] Procedures ALCOHOL DETOXIFICATION (07/04/15) APPLICATION OF SPLINT (03/20/13) CLOSURE SKIN & SUBCUTANEOUS NEC (08/14/13) DETOXIFICATION SERVICES FOR SUBSTANCE ABUSE TREATMENT (03/22/16) ESOPHAGOGASTRODUODENOSCOPY [EGD] W/CLOSED BIOPSY (02/16/15) OTHER GROUP THERAPY (03/12/13) PHYSICAL THERAPY NEC (07/04/15) TETANUS TOXOID ADMINIST (01/19/14) Family History: States: Unknown Family Hx - Social History Hx Tobacco Use: No Hx Alcohol Use: Yes (daily) Hx Substance Use: No - Immunization History Hx Tetanus Toxoid Vaccination: No Hx Influenza Vaccination: Yes Hx Pneumococcal Vaccination: Yes Review Of Systems Constitutional: Negative for: Fever, Chills Cardiovascular: Negative for: Chest Pain, Palpitations Respiratory: Negative for: Cough, Shortness of Breath Gastrointestinal: Negative for: Nausea, Vomiting Physical Exam - Physical Exam Appears: Non-toxic, Other (ETOH on breath, no sign of injury) Skin: Normal Color, Warm, Dry Head: Atraumatic, Normacephalic Eye(s): bilateral: Normal Inspection Oral Mucosa: Moist Neck: Normal, Supple Chest: Symmetrical, No Tenderness Cardiovascular: Rhythm Regular Respiratory: Normal Breath Sounds, No Rales, No Rhonchi, No Wheezing Gastrointestinal/Abdominal: Soft, No Tenderness Extremity: Normal ROM (x4) Neurological/Psych: Oriented x3, Normal Speech ED Course And Treatment O2 Sat by Pulse Oximetry: 96 (room air) Pulse Ox Interpretation: Normal Disposition - Disposition Referrals: Alcoholics Anonymous [Outside] [facility] [Outside] [facility] [Outside] Disposition: HOME/ ROUTINE Disposition Time: 23:00 Condition: IMPROVED Additional Instructions: XOCHITL RATLIFF, thank you for letting us take care of you today. The emergency medical care you received today was directed at your acute symptoms. If you were prescribed any medication, please fill it and take as directed. It may take several days for your symptoms to resolve. Return to the Emergency Department if your symptoms worsen, do not improve, or if you have any other problems. Please contact your doctor or call one of the physicians/clinics you have been referred to that are listed on the Patient Visit Information form that is included in your discharge packet. Bring any paperwork you were given at discharge with you along with any medications you are taking to your follow up visit. Our treatment cannot replace ongoing medical care by a primary care provider outside of the emergency department. Thank you for allowing the [facility] team to be part of your care today. Follow up with the clinic this week for outpatient care. Instructions: Alcohol Abuse and Alcoholism (DC) Forms: [employer] (Haitian) - Clinical Impression Clinical Impression: Alcohol intoxication - Scribe Statement The provider has reviewed the documentation as recorded by the Scribjosé miguel Ramirez All medical record entries made by the Scribe were at my direction and personally dictated by me. I have reviewed the chart and agree that the record accurately reflects my personal performance of the history, physical exam, medical decision making, and the department course for this patient. I have also personally directed, reviewed, and agree with the discharge instructions and disposition.
[2018-08-08 05:32] VITALS: BP 130/70; PULSE 78; RESP 20; TEMP 98; O2SAT 96
== END 2018-08-08 05:30 | disposition home or self-care (01) ==
LOC: C.ER 19:55
DX: F10.129 Alcohol abuse with intoxication, unspecified (principal)

== ENCOUNTER 2018-08-08 19:52 | Emergency (ER) | payer MEDICAID ==
[2018-08-08 19:53] VITALS: BMI 29.7
[2018-08-08 20:27] VITALS: TEMP 98.2
--- NOTE | 2018-08-08 20:45 | C.PDOC ---
History Of Present Illness 57 year old male presents to the ED for alcohol intoxication and also requesting for a place to sleep. Patient admits to drinking alcohol tonight. Patient denies SI/HI, hallucinations, trauma, injury, fall. Time Seen by Provider: 08/08/18 20:41 Chief Complaint (Nursing): Substance Abuse History Per: Patient History/Exam Limitations: intoxication Onset/Duration Of Symptoms: Hrs Current Symptoms Are (Timing): Still Present Suicide/Self Injury Attempted (Context): None Modifying Factor(s): Alcohol Associated Symptoms: denies: Depression, Suicidal Thoughts, Suicidal Plan Additional History Per: Patient Past Medical History Reviewed: Historical Data, Nursing Documentation, Vital Signs Vital Signs: Last Vital Signs Temp 98.2 F 08/08/18 20:23 Pulse 64 08/08/18 20:23 Resp 18 08/08/18 20:23 BP 144/83 08/08/18 20:23 Pulse Ox 98 08/08/18 20:23 - Medical History PMH: Anxiety, Arthritis, Bronchitis, CAD, Depression, Diabetes (Pt. did not disclose to show card writer, not aware), Fractures (RIGHT ARM), Gastritis, Gall Bladder Disease (s/p cholecystectomy), HTN, Post Traumatic Stress Disorder, Rheumatoid Arthritis, Seizures, Chronic Pain Denies: Chronic Kidney Disease Surgical History: Cholecystectomy - [facility] Procedures ALCOHOL DETOXIFICATION (07/04/15) APPLICATION OF SPLINT (03/20/13) CLOSURE SKIN & SUBCUTANEOUS NEC (08/14/13) DETOXIFICATION SERVICES FOR SUBSTANCE ABUSE TREATMENT (03/22/16) ESOPHAGOGASTRODUODENOSCOPY [EGD] W/CLOSED BIOPSY (02/16/15) OTHER GROUP THERAPY (03/12/13) PHYSICAL THERAPY NEC (07/04/15) TETANUS TOXOID ADMINIST (01/19/14) Family History: States: Unknown Family Hx - Social History Hx Tobacco Use: No Hx Alcohol Use: Yes (daily) Hx Substance Use: No - Immunization History Hx Tetanus Toxoid Vaccination: No Hx Influenza Vaccination: Yes Hx Pneumococcal Vaccination: Yes Review Of Systems Constitutional: Negative for: Fever, Chills Cardiovascular: Negative for: Chest Pain Respiratory: Negative for: Shortness of Breath Gastrointestinal: Negative for: Nausea, Vomiting, Abdominal Pain Skin: Negative for: Rash Neurological: Negative for: Weakness, Numbness Psych: Negative for: Depression, Suicidal ideation Physical Exam - Physical Exam Appears: Non-toxic, No Acute Distress Skin: Warm, Dry Head: Normacephalic Eye(s): bilateral: Normal Inspection Neck: Supple Chest: Symmetrical Cardiovascular: Rhythm Regular Respiratory: No Rales, No Rhonchi, No Wheezing Gastrointestinal/Abdominal: Soft, No Tenderness, No Guarding, No Rebound Extremity: Bilateral: Atraumatic, Normal Color And Temperature, Normal ROM Neurological/Psych: Oriented x3, Normal Speech Gait: With Assistance (wheelchair) ED Course And Treatment O2 Sat by Pulse Oximetry: 98 (ON RA) Pulse Ox Interpretation: Normal Reevaluation Time: 05:27 Reassessment Condition: Improved Disposition Counseled Patient/Family Regarding: Studies Performed, Diagnosis, Need For Followup - Disposition Referrals: [facility] at [facility] [Outside] Disposition: HOME/ ROUTINE Disposition Time: 20:42 Condition: FAIR Instructions: Alcohol Abuse and Alcoholism (DC) Forms: [employer] (Albanian) - Clinical Impression Clinical Impression: Acute alcohol intoxication, Alcoholism /alcohol abuse - Scribe Statement The provider has reviewed the documentation as recorded by the Scribe Woo Brown All medical record entries made by the Scribe were at my direction and personally dictated by me. I have reviewed the chart and agree that the record accurately reflects my personal performance of the history, physical exam, medical decision making, and the department course for this patient. I have also personally directed, reviewed, and agree with the discharge instructions and disposition.
[2018-08-09 06:49] VITALS: BP 123/67; PULSE 87; RESP 16; O2SAT 100
== END 2018-08-09 06:49 | disposition home or self-care (01) ==
LOC: C.ER 19:52
DX: F10.229 Alcohol dependence with intoxication, unspecified (principal)

== ENCOUNTER 2018-08-09 19:33 | Emergency (ER) | payer MEDICAID ==
[2018-08-09 19:33] VITALS: BMI 29.7
--- NOTE | 2018-08-09 20:01 | C.PDOC ---
History Of Present Illness 57 y/o M well known to this ED found on floor next to hallway bathroom having slipped and fallen. Reports headstrike, now with R hip pain. Denies chest pain, vomiting. Time Seen by Provider: 08/09/18 19:41 Chief Complaint (Nursing): Trauma Past Medical History - Medical History PMH: Anxiety, Arthritis, Bronchitis, CAD, Depression, Diabetes (Pt. did not disclose to television script writer, not aware), Fractures (RIGHT ARM), Gastritis, Gall Bladder Disease (s/p cholecystectomy), HTN, Post Traumatic Stress Disorder, Rheumatoid Arthritis, Seizures, Chronic Pain Denies: Chronic Kidney Disease Surgical History: Cholecystectomy - [facility] Procedures ALCOHOL DETOXIFICATION (07/04/15) APPLICATION OF SPLINT (03/20/13) CLOSURE SKIN & SUBCUTANEOUS NEC (08/14/13) DETOXIFICATION SERVICES FOR SUBSTANCE ABUSE TREATMENT (03/22/16) ESOPHAGOGASTRODUODENOSCOPY [EGD] W/CLOSED BIOPSY (02/16/15) OTHER GROUP THERAPY (03/12/13) PHYSICAL THERAPY NEC (07/04/15) TETANUS TOXOID ADMINIST (01/19/14) Family History: States: Unknown Family Hx - Social History Hx Tobacco Use: No Hx Alcohol Use: Yes (daily) Hx Substance Use: No - Immunization History Hx Tetanus Toxoid Vaccination: No Hx Influenza Vaccination: Yes Hx Pneumococcal Vaccination: Yes Review Of Systems Except As Marked, All Systems Reviewed And Found Negative. Constitutional: Negative for: Fever Cardiovascular: Negative for: Chest Pain Physical Exam - Physical Exam Additional Physical Exam Comments: Gen: Disheveled, malodorous Head: NC/AT Eyes: PERRL ENT: MMM Neck: No midline tenderness Chest: No tenderness CV: Regular rate Lungs: CTA b/l Abd: Soft, NT Back: No midline tenderness Extremities: FROM x 3, R hip with anterior tenderness and limited ROM secondary to pain Skin: No rash Neuro: Alert Medical Decision Making Medical Decision Making: FINDINGS: Limited study as there are multiple overlying radiopaque densities and clothing. This precludes evaluation of the right pubic bones. Moderate degenerative changes of the bilateral hip joint spaces with joint space narrowing and subchondral sclerosis. No evidence of acute displaced fracture or dislocation. Surgical staple projecting over the midline pelvis. Impression: Limited study. Degenerative changes. If pain persists, consider repeat study and or further evaluation with MRI. CXR no pneumothorax or pleural effusion. Head CT no acute intracranial abnormality. Will discharge after sobriety achieved. Disposition - Disposition Disposition: HOME/ ROUTINE Disposition Time: 21:29 Condition: STABLE Instructions: Preventing Falls Forms: [facility] (Sami) - Clinical Impression Clinical Impression: Acute alcohol intoxication, Fall
--- NOTE | 2018-08-09 21:28 | RAD ---
Pelvis and right hip three views HISTORY: Fall. Hip pain. COMPARISON: None. FINDINGS: Limited study as there are multiple overlying radiopaque densities and clothing. This precludes evaluation of the right pubic bones. Moderate degenerative changes of the bilateral hip joint spaces with joint space narrowing and subchondral sclerosis. No evidence of acute displaced fracture or dislocation. Surgical staple projecting over the midline pelvis. Impression: Limited study. Degenerative changes. If pain persists, consider repeat study and or further evaluation with MRI.
[2018-08-10 02:12] VITALS: TEMP 98.4
[2018-08-10 05:41] VITALS: BP 131/70; PULSE 84; RESP 22; O2SAT 99
--- NOTE | 2018-08-10 07:04 | CT ---
Date of service: 08/09/2018 PROCEDURE: CT HEAD WITHOUT CONTRAST. HISTORY: fall, headstrike COMPARISON: 08/02/2018 TECHNIQUE: Axial computed tomography images were obtained through the head/brain without intravenous contrast. Radiation dose: Total exam DLP = 1093.58 mGy-cm. This CT exam was performed using one or more of the following dose reduction techniques: Automated exposure control, adjustment of the mA and/or kV according to patient size, and/or use of iterative reconstruction technique. FINDINGS: HEMORRHAGE: No intracranial hemorrhage. BRAIN: No mass effect or edema. Scattered focal lucencies in the subcortical and periventricular white matter suggestive for chronic microvascular ischemic change. Persistent focal hypodensities in the bilateral external capsule suggestive for chronic ischemic change. VENTRICLES: Prominent. CALVARIUM: Unremarkable. PARANASAL SINUSES: Mucosal thickening of the bilateral maxillary sinuses. MASTOID AIR CELLS: Unremarkable as visualized. No inflammatory changes. OTHER FINDINGS: Soft tissue swelling overlying the right frontal cranium and periorbital region. IMPRESSION: Chronic microvascular ischemic changes. No acute intracranial abnormality. Sinus mucosal disease. If symptoms persists, consider correlation with MRI. These findings were preliminarily reported at 8:57 p.m. on 08/09/[address] Kun Looney from [employer].
--- NOTE | 2018-08-10 10:07 | RAD ---
Date of service: 08/09/2018 HISTORY: fall COMPARISON: No prior. FINDINGS: LUNGS: Mild venous congestion. Right infrahilar prominence. PLEURA: Blunted left costophrenic angle may represent trace effusion. CARDIOVASCULAR: No atherosclerotic calcification present Enlarged ectatic aorta. Mild cardiomegaly. OSSEOUS STRUCTURES: Degenerative changes in the spine. VISUALIZED UPPER ABDOMEN: Normal. OTHER FINDINGS: None. IMPRESSION: Mild venous congestion. Right infrahilar prominence. Blunted left costophrenic angle may represent trace effusion. Enlarged ectatic aorta. Mild cardiomegaly.
== END 2018-08-10 05:41 | disposition home or self-care (01) ==
LOC: C.ER 19:33
DX: M25.551 Pain in right hip (principal); W01.0XXA Fall on same level from slipping, tripping and stumbling without subsequent striking against object, initial encounter; F10.129 Alcohol abuse with intoxication, unspecified; Y90.9 Presence of alcohol in blood, level not specified

== ENCOUNTER 2018-08-10 15:36 | Emergency (ER) | payer MEDICAID ==
[2018-08-10 15:37] VITALS: BMI 29.7
[2018-08-10 15:44] VITALS: TEMP 97.6; O2SAT 96
--- NOTE | 2018-08-10 17:31 | C.PDOC ---
History Of Present Illness 57 year old male with multiple visits to ER presents to ED for complaints of falling off of his wheelchair and hitting his head. Denies LOC, or any other physical complaints. Patient admits to drinking today. Time Seen by Provider: 08/10/18 16:22 Chief Complaint (Nursing): Lower Extremity Problem/Injury History Per: Patient History/Exam Limitations: no limitations Onset/Duration Of Symptoms: Hrs Current Symptoms Are (Timing): Still Present Recent travel outside of the [place]: No Past Medical History Reviewed: Historical Data, Nursing Documentation, Vital Signs Vital Signs: Last Vital Signs Temp 97.6 F 08/10/18 15:41 Pulse 83 08/10/18 15:41 Resp 18 08/10/18 15:41 BP 160/106 H 08/10/18 15:41 Pulse Ox 96 08/10/18 15:41 - Medical History PMH: Anxiety, Arthritis, Bronchitis, CAD, Depression, Diabetes (Pt. did not disclose to life insurance underwriter, not aware), Fractures (RIGHT ARM), Gastritis, Gall Bladder Disease (s/p cholecystectomy), HTN, Post Traumatic Stress Disorder, Rheumatoid Arthritis, Seizures, Chronic Pain Surgical History: Cholecystectomy - [facility] Procedures ALCOHOL DETOXIFICATION (07/04/15) APPLICATION OF SPLINT (03/20/13) CLOSURE SKIN & SUBCUTANEOUS NEC (08/14/13) DETOXIFICATION SERVICES FOR SUBSTANCE ABUSE TREATMENT (03/22/16) ESOPHAGOGASTRODUODENOSCOPY [EGD] W/CLOSED BIOPSY (02/16/15) OTHER GROUP THERAPY (03/12/13) PHYSICAL THERAPY NEC (07/04/15) TETANUS TOXOID ADMINIST (01/19/14) Family History: States: Unknown Family Hx - Social History Hx Tobacco Use: No Hx Alcohol Use: Yes (daily) Hx Substance Use: No - Immunization History Hx Tetanus Toxoid Vaccination: No Hx Influenza Vaccination: Yes Hx Pneumococcal Vaccination: Yes Review Of Systems Constitutional: Negative for: Fever, Chills Gastrointestinal: Negative for: Nausea, Vomiting, Abdominal Pain, Diarrhea Skin: Positive for: Other (Fell on head ). Negative for: Rash Neurological: Negative for: Weakness, Numbness, Headache Physical Exam - Physical Exam Appears: Non-toxic, No Acute Distress, Other (ETOH on breath, discheveled ) Skin: Warm, Dry, No Rash Head: Atraumatic, Tenderness (Back of head ), No Laceration (contusion), Other Eye(s): bilateral: Normal Inspection, PERRL, EOMI Oral Mucosa: Moist Neck: Normal ROM, Supple Chest: Symmetrical, No Tenderness Cardiovascular: Rhythm Regular, No Murmur Respiratory: Normal Breath Sounds, No Decreased Breath Sounds, No Rales, No Rhonchi, No Wheezing Gastrointestinal/Abdominal: Bowel Sounds (Active ), Soft, No Tenderness, No Distention, No Guarding, No Rebound Back: Normal Inspection, No CVA Tenderness Extremity: Normal ROM Extremity: Bilateral: Atraumatic, Normal Color And Temperature, Normal ROM Pulses: Left Radial: Normal, Right Radial: Normal Neurological/Psych: Oriented x3, Normal Speech Gait: Steady ED Course And Treatment O2 Sat by Pulse Oximetry: 96 (RA) Pulse Ox Interpretation: Normal - CT Scan/US CT head Other Rad Studies (CT/US): Read By Radiologist, Radiology Report Reviewed CT/US Interpretation: IMPRESSION: 1. Mild generalized parenchymal atrophy. 2. Bilateral ethmoid and maxillary chronic sinusitis. 3. No acute pathology. Reevaluation Time: 19:40 (packed up his bed and deposited sheets in linen bin, dressed himself and wheeled himself out of ED) Medical Decision Making Medical Decision Making: Plan: * CT Head Disposition Doctor Will See Patient In The: Office Counseled Patient/Family Regarding: Studies Performed, Diagnosis - Disposition Disposition: HOME/ ROUTINE Disposition Time: 20:17 Condition: GOOD Forms: [facility] (Belarusian) - Clinical Impression Clinical Impression: Alcoholism /alcohol abuse - Scribe Statement The provider has reviewed the documentation as recorded by the Rominaibjosé miguel Rosales All medical record entries made by the Rominaibjosé miguel were at my direction and personally dictated by me. I have reviewed the chart and agree that the record accurately reflects my personal performance of the history, physical exam, medical decision making, and the department course for this patient. I have also personally directed, reviewed, and agree with the discharge instructions and disposition.
[2018-08-10 19:48] VITALS: BP 149/90; PULSE 82
[2018-08-10 20:24] VITALS: RESP 17
--- NOTE | 2018-08-11 09:01 | CT ---
Date of service: 08/10/2018 PROCEDURE: CT HEAD WITHOUT CONTRAST. HISTORY: occipital contusion COMPARISON: 08/09/2018. TECHNIQUE: Axial computed tomography images were obtained through the head/brain without intravenous contrast. Radiation dose: Total exam DLP = 959.38 mGy-cm. This CT exam was performed using one or more of the following dose reduction techniques: Automated exposure control, adjustment of the mA and/or kV according to patient size, and/or use of iterative reconstruction technique. FINDINGS: HEMORRHAGE: No intracranial hemorrhage. BRAIN: Arceo-white matter differentiation is preserved. There is no mass, mass effect or abnormal extra-axial fluid collection. There is no territorial infarction. The midline sagittal structures are normal. VENTRICLES: There is mild age advanced global parenchymal volume loss and proportionate enlargement of the ventricles and cortical sulci. CALVARIUM: There is no calvarial fracture or extracranial soft tissue swelling. PARANASAL SINUSES: There is moderate mucosal thickening in the maxillary sinuses. The remaining included paranasal sinuses are clear. MASTOID AIR CELLS: Predominantly clear. OTHER FINDINGS: None. IMPRESSION: No acute intracranial abnormality. Mild global parenchymal volume loss, advanced for the patient's age. Chronic maxillary sinusitis. A preliminary report was provided by [facility].
== END 2018-08-10 19:40 | disposition home or self-care (01) ==
LOC: C.ER 15:36
DX: F10.229 Alcohol dependence with intoxication, unspecified (principal)

== ENCOUNTER 2018-08-10 23:17 | Emergency (ER) | payer MEDICAID ==
[2018-08-10 23:18] VITALS: BMI 29.7
--- NOTE | 2018-08-10 23:35 | C.PDOC ---
History Of Present Illness 57 y/o male presents to the ED requesting a place to stay the night. On arrival patient admits to drinking today. Otherwise he denies having any physical complaints at this time. Also denies any suicidal or homicidal ideation. 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), Fractures (RIGHT ARM), Gastritis, Gall Bladder Disease (s/p cholecystectomy), HTN, Post Traumatic Stress Disorder, Rheumatoid Arthritis, Seizures, Chronic Pain Denies: Chronic Kidney Disease Surgical History: Cholecystectomy - [facility] Procedures ALCOHOL DETOXIFICATION (07/04/15) APPLICATION OF SPLINT (03/20/13) CLOSURE SKIN & SUBCUTANEOUS NEC (08/14/13) DETOXIFICATION SERVICES FOR SUBSTANCE ABUSE TREATMENT (03/22/16) ESOPHAGOGASTRODUODENOSCOPY [EGD] W/CLOSED BIOPSY (02/16/15) OTHER GROUP THERAPY (03/12/13) PHYSICAL THERAPY NEC (07/04/15) TETANUS TOXOID ADMINIST (01/19/14) Family History: States: Unknown Family Hx - Social History Hx Tobacco Use: No Hx Alcohol Use: Yes (daily) Hx Substance Use: No - Immunization History Hx Tetanus Toxoid Vaccination: No Hx Influenza Vaccination: Yes Hx Pneumococcal Vaccination: Yes Review Of Systems Constitutional: Negative for: Fever, Chills Gastrointestinal: Negative for: Nausea, Vomiting Psych: Positive for: Other (ETOH use). Negative for: Suicidal ideation (or homicidal) Physical Exam - Physical Exam Appears: Non-toxic, No Acute Distress Skin: Warm, Dry Head: Normacephalic Eye(s): bilateral: Normal Inspection Oral Mucosa: Moist Neck: Trachea Midline, Supple Chest: Symmetrical Cardiovascular: Rhythm Regular Respiratory: No Rales, No Rhonchi, No Wheezing Gastrointestinal/Abdominal: Soft, No Tenderness, No Distention Extremity: Bilateral: Atraumatic, Normal Color And Temperature Pulses: Left Dorsalis Pedis: Normal, Right Dorsalis Pedis: Normal Neurological/Psych: Oriented x3 ED Course And Treatment O2 Sat by Pulse Oximetry: 96 (RA) Pulse Ox Interpretation: Normal Progress Note: On examination patient is resting comfortably in stretcher. No signs or symptoms of trauma. He remains afebrile, AAOx3, in no acute distress. Patient is stable for d/c home. Reevaluation Time: 05:12 Reassessment Condition: Improved Disposition Counseled Patient/Family Regarding: Studies Performed, Diagnosis, Need For Followup - Disposition Referrals: [facility] [Outside] Disposition: HOME/ ROUTINE Disposition Time: 23:35 Condition: FAIR Instructions: Alcohol Abuse and Alcoholism (DC) Forms: [employer] (Turkmen) - Clinical Impression Clinical Impression: Alcohol abuse, daily use, Alcoholism /alcohol abuse - Scribe Statement The provider has reviewed the documentation as recorded by the Scribe (Leah Gunter) Provider Attestation: All medical record entries made by the Scribe were at my direction and personally dictated by me. I have reviewed the chart and agree that the record accurately reflects my personal performance of the history, physical exam, medical decision making, and the department course for this patient. I have also personally directed, reviewed, and agree with the discharge instructions and disposition.
[2018-08-10 23:39] VITALS: RESP 20
[2018-08-11 04:59] VITALS: BP 150/67; PULSE 90; TEMP 98.2
[2018-08-11 05:13] VITALS: O2SAT 96
== END 2018-08-11 06:03 | disposition home or self-care (01) ==
LOC: C.ER 23:17
DX: F10.229 Alcohol dependence with intoxication, unspecified (principal)

== ENCOUNTER 2018-08-11 20:21 | Emergency (ER) | payer MEDICAID ==
[2018-08-11 20:22] VITALS: BMI 29.7
--- NOTE | 2018-08-11 20:38 | C.PDOC ---
History Of Present Illness 57 year old male presents to the ER with acute ETOH intoxication requesting a place to spend the night. Patient admits to ETOH use tonight but otherwise denies any complaints. Time Seen by Provider: 08/11/18 20:37 Chief Complaint (Nursing): Substance Abuse History Per: Patient History/Exam Limitations: no limitations Onset/Duration Of Symptoms: Hrs Current Symptoms Are (Timing): Still Present Suicide/Self Injury Attempted (Context): None Modifying Factor(s): Alcohol Associated Symptoms: denies: Depression, Suicidal Thoughts Involuntary Hold By: None Recent travel outside of the [place]: No Past Medical History Reviewed: Historical Data, Nursing Documentation, Vital Signs Vital Signs: Last Vital Signs Temp 98.4 F 08/11/18 20:34 Pulse 82 08/11/18 20:34 Resp 16 08/11/18 20:34 BP 125/80 08/11/18 20:34 Pulse Ox 97 08/11/18 20:34 - Medical History PMH: Anxiety, Arthritis, Bronchitis, CAD, Depression, Diabetes (Pt. 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 not disclose to procedure writer, not aware), Fractures (RIGHT ARM), Gastritis, Gall Bladder Disease (s/p cholecystectomy), HTN, Post Traumatic Stress Disorder, Rheumatoid Arthritis, Seizures, Chronic Pain Denies: Chronic Kidney Disease Surgical History: Cholecystectomy - [facility] Procedures ALCOHOL DETOXIFICATION (07/04/15) APPLICATION OF SPLINT (03/20/13) CLOSURE SKIN & SUBCUTANEOUS NEC (08/14/13) DETOXIFICATION SERVICES FOR SUBSTANCE ABUSE TREATMENT (03/22/16) ESOPHAGOGASTRODUODENOSCOPY [EGD] W/CLOSED BIOPSY (02/16/15) OTHER GROUP THERAPY (03/12/13) PHYSICAL THERAPY NEC (07/04/15) TETANUS TOXOID ADMINIST (01/19/14) Family History: States: Unknown Family Hx - Social History Hx Tobacco Use: No Hx Alcohol Use: Yes (daily) Hx Substance Use: No - Immunization History Hx Tetanus Toxoid Vaccination: No Hx Influenza Vaccination: Yes Hx Pneumococcal Vaccination: Yes Review Of Systems Except As Marked, All Systems Reviewed And Found Negative. Constitutional: Positive for: Other (ETOH intoxication). Negative for: Fever, Chills Cardiovascular: Negative for: Chest Pain, Palpitations Respiratory: Negative for: Cough, Shortness of Breath Gastrointestinal: Negative for: Nausea, Vomiting Physical Exam - Physical Exam Appears: Non-toxic, Other (ETOH on breath, no sign of injury) Skin: Normal Color, Warm, Dry Head: Atraumatic, Normacephalic Eye(s): bilateral: Normal Inspection Oral Mucosa: Moist Neck: Normal, Supple Chest: Symmetrical, No Tenderness Cardiovascular: Rhythm Regular Respiratory: Normal Breath Sounds, No Rales, No Rhonchi, No Wheezing Gastrointestinal/Abdominal: Soft, No Tenderness Extremity: Normal ROM (x4) Neurological/Psych: Oriented x3, Normal Speech ED Course And Treatment O2 Sat by Pulse Oximetry: 97 (room air) Pulse Ox Interpretation: Normal Progress - Re-Evaluation Re-evaluation Note: 08/12/18 06:08 PT CLEAR SPEECH AND THOUGHT, AO3, NO S/S ACUTE INTOX. - Data Reviewed Data Reviewed: Old records Disposition Counseled Patient/Family Regarding: Diagnosis, Need For Followup - Disposition Referrals: YOUR,PMD [Other] Disposition: HOME/ ROUTINE Disposition Time: 06:00 Condition: IMPROVED Forms: [facility] (Kyrgyz), General Discharge Instructions - Clinical Impression Clinical Impression: Alcohol intoxication - Scribe Statement The provider has reviewed the documentation as recorded by the Scribjosé miguel Ramirez All medical record entries made by the Scribe were at my direction and personally dictated by me. I have reviewed the chart and agree that the record accurately reflects my personal performance of the history, physical exam, medical decision making, and the department course for this patient. I have also personally directed, reviewed, and agree with the discharge instructions and disposition.
[2018-08-12 01:52] VITALS: RESP 14
[2018-08-12 06:22] VITALS: BP 130/80; PULSE 80; TEMP 97; O2SAT 96
== END 2018-08-12 06:23 | disposition home or self-care (01) ==
LOC: C.ER 20:21
DX: F10.129 Alcohol abuse with intoxication, unspecified (principal); Y90.9 Presence of alcohol in blood, level not specified

== ENCOUNTER 2018-08-12 21:05 | Emergency (ER) | payer MEDICAID ==
[2018-08-12 21:05] VITALS: BMI 29.7
--- NOTE | 2018-08-12 21:10 | C.PDOC ---
History Of Present Illness 57 year old male presents to the ED requesting for a place to sleep. Patient admits to drinking alcohol today. Patient has multiple prior visits to the ED with similar complaints. Patient denies SI/HI, hallucinations, CP, SOB, nausea, vomit, injury, fall, trauma. 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), Fractures (RIGHT ARM), Gastritis, Gall Bladder Disease (s/p cholecystectomy), HTN, Post Traumatic Stress Disorder, Rheumatoid Arthritis, Seizures, Chronic Pain Denies: Chronic Kidney Disease Surgical History: Cholecystectomy - [facility] Procedures ALCOHOL DETOXIFICATION (07/04/15) APPLICATION OF SPLINT (03/20/13) CLOSURE SKIN & SUBCUTANEOUS NEC (08/14/13) DETOXIFICATION SERVICES FOR SUBSTANCE ABUSE TREATMENT (03/22/16) ESOPHAGOGASTRODUODENOSCOPY [EGD] W/CLOSED BIOPSY (02/16/15) OTHER GROUP THERAPY (03/12/13) PHYSICAL THERAPY NEC (07/04/15) TETANUS TOXOID ADMINIST (01/19/14) Family History: States: Unknown Family Hx - Social History Hx Tobacco Use: No Hx Alcohol Use: Yes (daily) Hx Substance Use: No - Immunization History Hx Tetanus Toxoid Vaccination: No Hx Influenza Vaccination: Yes Hx Pneumococcal Vaccination: Yes Review Of Systems Constitutional: Negative for: Fever, Chills Cardiovascular: Negative for: Chest Pain Respiratory: Negative for: Cough, Shortness of Breath Gastrointestinal: Negative for: Nausea, Vomiting, Abdominal Pain Skin: Negative for: Rash Psych: Negative for: Depression, Suicidal ideation Physical Exam - Physical Exam Appears: Non-toxic, No Acute Distress Skin: Warm, Dry Head: Normacephalic Eye(s): bilateral: Normal Inspection Neck: Supple Chest: Symmetrical Cardiovascular: Rhythm Regular Respiratory: No Rales, No Rhonchi, No Wheezing Gastrointestinal/Abdominal: Soft, No Tenderness, No Guarding, No Rebound Extremity: Bilateral: Atraumatic, Normal Color And Temperature, Normal ROM Neurological/Psych: Oriented x3, Normal Speech, Normal Cognition Gait: With Assistance (wheelchair) ED Course And Treatment O2 Sat by Pulse Oximetry: 94 Pulse Ox Interpretation: Normal Reevaluation Time: 05:09 Reassessment Condition: Improved Disposition Counseled Patient/Family Regarding: Studies Performed, Diagnosis, Need For Followup - Disposition Referrals: at [facility] [Outside] Disposition: HOME/ ROUTINE Disposition Time: 21:09 Condition: FAIR Instructions: Alcohol Abuse and Alcoholism (DC) - Clinical Impression Clinical Impression: Acute alcohol intoxication, Chronic alcoholism - Scribe Statement The provider has reviewed the documentation as recorded by the Scribe Woo Brown All medical record entries made by the Scribe were at my direction and personally dictated by me. I have reviewed the chart and agree that the record accurately reflects my personal performance of the history, physical exam, medical decision making, and the department course for this patient. I have also personally directed, reviewed, and agree with the discharge instructions and disposition.
[2018-08-12 21:22] VITALS: PULSE 92; RESP 18; O2SAT 94
[2018-08-13 10:40] VITALS: BP 129/78; TEMP 98.6
== END 2018-08-13 06:08 | disposition home or self-care (01) ==
LOC: C.ER 21:05
DX: F10.229 Alcohol dependence with intoxication, unspecified (principal)

== ENCOUNTER 2018-08-13 21:28 | Emergency (ER) | payer MEDICAID ==
[2018-08-13 21:28] VITALS: BMI 29.7
--- NOTE | 2018-08-13 21:37 | C.PDOC ---
History Of Present Illness 57 y/o male presents to the ED requesting a place to stay the night. On arrival patient admits to drinking today. Otherwise he denies having any physical complaints at this time. Also denies any suicidal or homicidal ideation. Time Seen by Provider: 08/13/18 21:35 Chief Complaint (Nursing): Substance Abuse History Per: Patient History/Exam Limitations: no limitations Onset/Duration Of Symptoms: Days Current Symptoms Are (Timing): Still Present Suicide/Self Injury Attempted (Context): None Modifying Factor(s): Alcohol Severity: None Pain Scale Rating Of: 0 Associated Symptoms: denies: Suicidal Thoughts, Suicidal Plan Involuntary Hold By: None Additional History Per: Prior Records Past Medical History Reviewed: Historical Data, Nursing Documentation, Vital Signs - Medical History PMH: Anxiety, Arthritis, Bronchitis, CAD, Depression, 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, not aware), Fractures (RIGHT ARM), Gastritis, Gall Bladder Disease (s/p cholecystectomy), HTN, Post Traumatic Stress Disorder, Rheumatoid Arthritis, Seizures, Chronic Pain Denies: Chronic Kidney Disease Surgical History: Cholecystectomy - [facility] Procedures ALCOHOL DETOXIFICATION (07/04/15) APPLICATION OF SPLINT (03/20/13) CLOSURE SKIN & SUBCUTANEOUS NEC (08/14/13) DETOXIFICATION SERVICES FOR SUBSTANCE ABUSE TREATMENT (03/22/16) ESOPHAGOGASTRODUODENOSCOPY [EGD] W/CLOSED BIOPSY (02/16/15) OTHER GROUP THERAPY (03/12/13) PHYSICAL THERAPY NEC (07/04/15) TETANUS TOXOID ADMINIST (01/19/14) Family History: States: Unknown Family Hx - Social History Hx Tobacco Use: No Hx Alcohol Use: Yes (daily) Hx Substance Use: No - Immunization History Hx Tetanus Toxoid Vaccination: No Hx Influenza Vaccination: Yes Hx Pneumococcal Vaccination: Yes Review Of Systems Constitutional: Negative for: Fever, Chills Gastrointestinal: Negative for: Nausea, Vomiting Psych: Positive for: Other (Alcohol intoxication). Negative for: Suicidal ideation Physical Exam - Physical Exam Appears: Non-toxic, No Acute Distress Skin: Warm, Dry Head: Normacephalic Eye(s): bilateral: Normal Inspection Oral Mucosa: Moist Neck: Trachea Midline, Supple Chest: Symmetrical Cardiovascular: Rhythm Regular Respiratory: No Rales, No Rhonchi, No Wheezing Gastrointestinal/Abdominal: Soft, No Tenderness, No Distention Extremity: Bilateral: Atraumatic, Normal Color And Temperature Pulses: Left Dorsalis Pedis: Normal, Right Dorsalis Pedis: Normal Neurological/Psych: Oriented x3 ED Course And Treatment O2 Sat by Pulse Oximetry: 98 (RA) Pulse Ox Interpretation: Normal Progress Note: On examination patient is resting comfortably in stretcher. No signs or symptoms of trauma. He remains afebrile, AAOx3, in no acute distress. Patient is stable for d/c home. Reevaluation Time: 05:24 Reassessment Condition: Improved Disposition Counseled Patient/Family Regarding: Studies Performed, Diagnosis, Need For Followup - Disposition Referrals: [facility] at [facility] [Outside] Disposition: HOME/ ROUTINE Disposition Time: 21:35 Condition: FAIR Instructions: Alcohol Abuse and Alcoholism (DC) Forms: [employer] (Azeri) - Clinical Impression Clinical Impression: Alcohol intoxication, Chronic alcoholism - Scribe Statement The provider has reviewed the documentation as recorded by the Scribe (Leah Gunter) Provider Attestation: All medical record entries made by the Scribe were at my direction and personally dictated by me. I have reviewed the chart and agree that the record accurately reflects my personal performance of the history, physical exam, medical decision making, and the department course for this patient. I have also personally directed, reviewed, and agree with the discharge instructions and disposition.
[2018-08-14 03:45] VITALS: RESP 16; TEMP 98.1
[2018-08-14 05:48] VITALS: BP 128/82; PULSE 84; O2SAT 99
== END 2018-08-14 05:47 | disposition home or self-care (01) ==
LOC: C.ER 21:28
DX: F10.229 Alcohol dependence with intoxication, unspecified (principal); Y90.9 Presence of alcohol in blood, level not specified

== ENCOUNTER 2018-08-14 19:21 | Emergency (ER) | payer MEDICAID ==
[2018-08-14 19:37] VITALS: BMI 27.1
[2018-08-14 19:45] VITALS: BP 140/78; PULSE 76; RESP 14; TEMP 97.5; O2SAT 97
--- NOTE | 2018-08-14 19:50 | C.PDOC ---
History Of Present Illness 57 y/o male, presents to the ED looking for a place to stay. The patient is well known to the ED and staff for malingering behavior. Upon arrival, patient has AOB. He presents to the ED in a wheelchair. The patient offers no medical complains at this time. Time Seen by Provider: 08/14/18 19:49 Chief Complaint (Nursing): Medical Clearance History Per: Patient History/Exam Limitations: no limitations Recent travel outside of the [place]: No Past Medical History Reviewed: Historical Data, Nursing Documentation, Vital Signs Vital Signs: Last Vital Signs Temp 97.5 F L 08/14/18 19:41 Pulse 76 08/14/18 19:41 Resp 14 08/14/18 19:41 BP 140/78 08/14/18 19:41 Pulse Ox 97 08/14/18 19:41 - Medical History PMH: Anxiety, Arthritis, Bronchitis, CAD, Depression, Diabetes (Pt. did not disclose to caption writer, not aware), Fractures (RIGHT ARM), Gastritis, Gall Bladder Disease (s/p cholecystectomy), HTN, Post Traumatic Stress Disorder, Rheumatoid Arthritis, Seizures, Chronic Pain Denies: Chronic Kidney Disease Surgical History: Cholecystectomy - [facility] Procedures ALCOHOL DETOXIFICATION (07/04/15) APPLICATION OF SPLINT (03/20/13) CLOSURE SKIN & SUBCUTANEOUS NEC (08/14/13) DETOXIFICATION SERVICES FOR SUBSTANCE ABUSE TREATMENT (03/22/16) ESOPHAGOGASTRODUODENOSCOPY [EGD] W/CLOSED BIOPSY (02/16/15) OTHER GROUP THERAPY (03/12/13) PHYSICAL THERAPY NEC (07/04/15) TETANUS TOXOID ADMINIST (01/19/14) Family History: States: Unknown Family Hx - Social History Hx Tobacco Use: No Hx Alcohol Use: Yes (daily) Hx Substance Use: No - Immunization History Hx Tetanus Toxoid Vaccination: No Hx Influenza Vaccination: Yes Hx Pneumococcal Vaccination: Yes Review Of Systems Except As Marked, All Systems Reviewed And Found Negative. Constitutional: Negative for: Fever Gastrointestinal: Negative for: Abdominal Pain Physical Exam - Physical Exam Appears: No Acute Distress, Other (Disheveled, foul- smelling, AOB) Skin: Warm, Dry Head: Atraumatic, Normacephalic Eye(s): bilateral: PERRL, EOMI Neck: Supple Chest: Symmetrical Cardiovascular: Rhythm Regular, No Murmur Respiratory: No Rales, No Rhonchi, No Wheezing Gastrointestinal/Abdominal: Soft, No Tenderness, No Distention Extremity: Bilateral: Normal Color And Temperature, Normal ROM Neurological/Psych: Other (Awake, Alert, no gross focal deficits) ED Course And Treatment O2 Sat by Pulse Oximetry: 97 (RA) Pulse Ox Interpretation: Normal Medical Decision Making Medical Decision Making: typical malingering not intoxicated many prior evals for same well known to this MD, no sig change from prior Disposition Doctor Will See Patient In The: Office Counseled Patient/Family Regarding: Studies Performed, Diagnosis - Disposition Referrals: [facility]ics Anonymous [Outside] [facility] [Outside] [facility] [facility] [Outside] Counts include 234 beds at the [facility] [employer] [place] [Outside] [facility] [Outside] [facility] [Outside] Disposition: HOME/ ROUTINE Disposition Time: 19:50 Condition: GOOD Additional Instructions: seek nightly fpc placement seek AA Seek psych services for your social/Psych issues. Instructions: Alcohol Abuse and Alcoholism (DC) Forms: [employer] (Yakut) - Clinical Impression Clinical Impression: Alcohol abuse, Malingering - Scribe Statement The provider has reviewed the documentation as recorded by the Scribe (Nathalie Carver) Provider Attestation: All medical record entries made by the Scribe were at my direction and personally dictated by me. I have reviewed the chart and agree that the record accurately reflects my personal performance of the history, physical exam, medical decision making, and the department course for this patient. I have also personally directed, reviewed, and agree with the discharge instructions and disposition.
== END 2018-08-14 20:06 | disposition home or self-care (01) ==
LOC: C.ER 19:21
DX: F10.10 Alcohol abuse, uncomplicated (principal); Y90.9 Presence of alcohol in blood, level not specified; Z76.5 Malingerer [conscious simulation]

== ENCOUNTER 2018-08-15 20:21 | Emergency (ER) | payer MEDICAID ==
[2018-08-15 20:21] VITALS: BMI 27.1
--- NOTE | 2018-08-15 21:55 | C.PDOC ---
History Of Present Illness 57 year old male presents to the emergency department requesting a place to stay. Patient is known for chronic alcohol abuse and homelessness. Patient was able to transport himself via wheelchair. He has no complaints at this time. Time Seen by Provider: 08/15/18 21:18 Chief Complaint (Nursing): Substance Abuse History Per: Patient History/Exam Limitations: no limitations Onset/Duration Of Symptoms: Hrs Current Symptoms Are (Timing): Still Present Suicide/Self Injury Attempted (Context): None Modifying Factor(s): Alcohol Associated Symptoms: denies: Suicidal Thoughts, Suicidal Plan Past Medical History Reviewed: Historical Data, Nursing Documentation, Vital Signs Vital Signs: Last Vital Signs Temp 98.1 F 08/15/18 21:30 Pulse 96 H 08/15/18 21:30 Resp 20 08/15/18 21:30 BP 144/77 08/15/18 21:30 Pulse Ox 98 08/15/18 21:30 - Medical History PMH: Anxiety, Arthritis, Bronchitis, CAD, Depression, Diabetes (Pt. did not disclose to sba underwriter, not aware), Fractures (RIGHT ARM), Gastritis, Gall Bladder Disease (s/p cholecystectomy), HTN, Post Traumatic Stress Disorder, Rheumatoid Arthritis, Seizures, Chronic Pain Denies: Chronic Kidney Disease Surgical History: Cholecystectomy - [facility] Procedures ALCOHOL DETOXIFICATION (07/04/15) APPLICATION OF SPLINT (03/20/13) CLOSURE SKIN & SUBCUTANEOUS NEC (08/14/13) DETOXIFICATION SERVICES FOR SUBSTANCE ABUSE TREATMENT (03/22/16) ESOPHAGOGASTRODUODENOSCOPY [EGD] W/CLOSED BIOPSY (02/16/15) OTHER GROUP THERAPY (03/12/13) PHYSICAL THERAPY NEC (07/04/15) TETANUS TOXOID ADMINIST (01/19/14) Family History: States: No Known Family Hx - Social History Hx Tobacco Use: No Hx Alcohol Use: Yes (daily) Hx Substance Use: No - Immunization History Hx Tetanus Toxoid Vaccination: No Hx Influenza Vaccination: Yes Hx Pneumococcal Vaccination: Yes Review Of Systems Except As Marked, All Systems Reviewed And Found Negative. Constitutional: Negative for: Fever, Chills Respiratory: Negative for: Cough Gastrointestinal: Negative for: Nausea, Vomiting, Abdominal Pain Physical Exam - Physical Exam Additional Physical Exam Comments: Constitutional: No acute distress. Head: Normocephalic. Atraumatic. Eyes: PERRL. ENT: Moist mucous membranes. Neck: Supple. Cardiovascular: Regular rate. Radial pulse 2+ bilaterally. Chest: No tenderness. Respiratory: Clear to auscultation bilaterally. GI: Soft. Nontender. Nondistended. Back: No CVA tenderness. Musculoskeletal: No tenderness or swelling of extremities. Skin: No rash. Neurologic: Alert, no focal deficit. ED Course And Treatment O2 Sat by Pulse Oximetry: 98 (RA) Pulse Ox Interpretation: Normal Medical Decision Making Medical Decision Making: Plan: Observe until sober. Disposition - Disposition Disposition: HOME/ ROUTINE Disposition Time: 21:54 Condition: STABLE Instructions: Alcohol Abuse and Alcoholism (DC) Forms: [employer] (Israeli) - Clinical Impression Clinical Impression: Alcohol intoxication - Scribe Statement The provider has reviewed the documentation as recorded by the Scribe (Jewel Schaeffer)
[2018-08-16 00:49] VITALS: RESP 16
[2018-08-16 03:06] VITALS: BP 128/78; PULSE 96; TEMP 98.2; O2SAT 97
== END 2018-08-16 05:25 | disposition home or self-care (01) ==
LOC: C.ER 20:21
DX: F10.129 Alcohol abuse with intoxication, unspecified (principal); Z59.0 Homelessness

== ENCOUNTER 2018-08-16 18:44 | Emergency (ER) | payer MEDICAID ==
[2018-08-16 18:47] VITALS: BMI 31.4
[2018-08-16 19:00] VITALS: BP 121/67; PULSE 105; TEMP 98.4; O2SAT 95
--- NOTE | 2018-08-16 19:08 | C.PDOC ---
History Of Present Illness 57 year old male presents to the emergency department with complaints of leg pain. Patient is a known malingerer in the ED, known for chronic alcohol abuse and homelessness. Patient is seeking a place to stay for the night. Time Seen by Provider: 08/16/18 18:59 Chief Complaint (Nursing): Lower Extremity Problem/Injury History Per: Patient History/Exam Limitations: intoxication Onset/Duration Of Symptoms: Hrs Current Symptoms Are (Timing): Still Present Severity: None Past Medical History Reviewed: Historical Data, Nursing Documentation, Vital Signs Vital Signs: Last Vital Signs Temp 98.4 F 08/16/18 18:59 Pulse 105 H 08/16/18 18:59 Resp 18 08/16/18 18:59 BP 121/67 08/16/18 18:59 Pulse Ox 95 08/16/18 18:59 - Medical History PMH: Anxiety, Arthritis, Bronchitis, CAD, Depression, Diabetes (Pt. did not disclose to policy writer, not aware), Fractures (RIGHT ARM), Gastritis, Gall Bladder Disease (s/p cholecystectomy), HTN, Post Traumatic Stress Disorder, Rheumatoid Arthritis, Seizures, Chronic Pain Denies: Chronic Kidney Disease Surgical History: Cholecystectomy - [facility] Procedures ALCOHOL DETOXIFICATION (07/04/15) APPLICATION OF SPLINT (03/20/13) CLOSURE SKIN & SUBCUTANEOUS NEC (08/14/13) DETOXIFICATION SERVICES FOR SUBSTANCE ABUSE TREATMENT (03/22/16) ESOPHAGOGASTRODUODENOSCOPY [EGD] W/CLOSED BIOPSY (02/16/15) OTHER GROUP THERAPY (03/12/13) PHYSICAL THERAPY NEC (07/04/15) TETANUS TOXOID ADMINIST (01/19/14) Family History: States: No Known Family Hx - Social History Hx Tobacco Use: No Hx Alcohol Use: Yes (daily) Hx Substance Use: No - Immunization History Hx Tetanus Toxoid Vaccination: No Hx Influenza Vaccination: Yes Hx Pneumococcal Vaccination: Yes Review Of Systems Review Of Systems: ROS cannot be obtained secondary to pt's inabilty to answer questions. Physical Exam - Physical Exam Appears: Non-toxic, No Acute Distress Skin: Warm, Dry Head: Atraumatic, Normacephalic Eye(s): bilateral: Normal Inspection, PERRL, EOMI Oral Mucosa: Moist Neck: Normal, Supple Chest: Symmetrical, No Tenderness Cardiovascular: Rhythm Regular, No Murmur Respiratory: Normal Breath Sounds, No Rales, No Rhonchi, No Wheezing Gastrointestinal/Abdominal: Soft, No Tenderness, No Guarding, No Rebound Extremity: Normal ROM (all extremities) Neurological/Psych: Oriented x3, Normal Speech, Normal Cognition ED Course And Treatment O2 Sat by Pulse Oximetry: 95 (RA) Pulse Ox Interpretation: Normal Disposition - Disposition Disposition: HOME/ ROUTINE Disposition Time: 20:00 Condition: IMPROVED Forms: [facility] (Mohawk) - Clinical Impression Clinical Impression: Alcohol abuse - Scribe Statement The provider has reviewed the documentation as recorded by the Scribe (Jewel Schaeffer) Provider Attestation: All medical record entries made by the Scribe were at my direction and personally dictated by me. I have reviewed the chart and agree that the record accurately reflects my personal performance of the history, physical exam, medical decision making, and the department course for this patient. I have also personally directed, reviewed, and agree with the discharge instructions and disposition.
[2018-08-16 20:07] VITALS: RESP 16
== END 2018-08-16 20:10 | disposition home or self-care (01) ==
LOC: C.ER 18:44
DX: F10.10 Alcohol abuse, uncomplicated (principal); Y90.9 Presence of alcohol in blood, level not specified; Z59.0 Homelessness

== ENCOUNTER 2018-08-16 21:45 | Emergency (ER) | payer MEDICAID ==
[2018-08-16 21:45] VITALS: BMI 31.4
--- NOTE | 2018-08-16 21:51 | C.PDOC ---
History Of Present Illness 57 year old male presents to the emergency department status-post being discharged one hour ago. Patient is a known malingerer in the ED with chronic alcohol abuse and homelessness. Patient is requesting a place to stay for the night. Time Seen by Provider: 08/16/18 21:48 History Per: Patient History/Exam Limitations: no limitations Onset/Duration Of Symptoms: Hrs Suicide/Self Injury Attempted (Context): None Modifying Factor(s): Alcohol Severity: None Associated Symptoms: denies: Anger Involuntary Hold By: None Recent travel outside of the [place]: No Past Medical History Reviewed: Historical Data, Nursing Documentation, Vital Signs - Medical History PMH: Anxiety, Arthritis, Bronchitis, CAD, Depression, Diabetes (Pt. 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 aware), Fractures (RIGHT ARM), Gastritis, Gall Bladder Disease (s/p cholecystectomy), HTN, Post Traumatic Stress Disorder, Rheumatoid Arthritis, Seizures, Chronic Pain Denies: Chronic Kidney Disease Surgical History: Cholecystectomy - [facility] Procedures ALCOHOL DETOXIFICATION (07/04/15) APPLICATION OF SPLINT (03/20/13) CLOSURE SKIN & SUBCUTANEOUS NEC (08/14/13) DETOXIFICATION SERVICES FOR SUBSTANCE ABUSE TREATMENT (03/22/16) ESOPHAGOGASTRODUODENOSCOPY [EGD] W/CLOSED BIOPSY (02/16/15) OTHER GROUP THERAPY (03/12/13) PHYSICAL THERAPY NEC (07/04/15) TETANUS TOXOID ADMINIST (01/19/14) Family History: States: No Known Family Hx - Social History Hx Tobacco Use: No Hx Alcohol Use: Yes (daily) Hx Substance Use: No - Immunization History Hx Tetanus Toxoid Vaccination: No Hx Influenza Vaccination: Yes Hx Pneumococcal Vaccination: Yes Review Of Systems Review Of Systems: ROS cannot be obtained secondary to pt's inabilty to answer questions. Physical Exam - Physical Exam Appears: Non-toxic, No Acute Distress Skin: Warm, Dry Head: Normacephalic Oral Mucosa: Moist Neck: Trachea Midline, Supple Chest: Symmetrical, No Tenderness Cardiovascular: Rhythm Regular Respiratory: No Rales, No Rhonchi, No Wheezing Gastrointestinal/Abdominal: Soft, No Tenderness Neurological/Psych: Oriented x3 Gait: With Assistance Disposition Counseled Patient/Family Regarding: Studies Performed, Diagnosis, Need For Followup - Disposition Referrals: [facility] at [facility] [Outside] Disposition: HOME/ ROUTINE Disposition Time: 21:48 Condition: FAIR Instructions: Alcohol Abuse and Alcoholism (DC) - Clinical Impression Clinical Impression: Alcohol intoxication, Chronic alcoholism - Scribe Statement The provider has reviewed the documentation as recorded by the Scribe (Jewel Schaeffer) Provider Attestation: All medical record entries made by the Scribe were at my direction and personally dictated by me. I have reviewed the chart and agree that the record accurately reflects my personal performance of the history, physical exam, medical decision making, and the department course for this patient. I have also personally directed, reviewed, and agree with the discharge instructions and disposition.
[2018-08-17 06:25] VITALS: BP 126/80; PULSE 86; RESP 16; TEMP 98; O2SAT 98
== END 2018-08-17 06:23 | disposition home or self-care (01) ==
LOC: C.ER 21:45
DX: F10.229 Alcohol dependence with intoxication, unspecified (principal); Y90.9 Presence of alcohol in blood, level not specified; Z59.0 Homelessness

== ENCOUNTER 2018-08-17 20:27 | Emergency (ER) | payer MEDICAID ==
[2018-08-17 20:27] VITALS: BMI 31.4
--- NOTE | 2018-08-17 20:50 | C.PDOC ---
History Of Present Illness 57 year old male presents to the ED requesting for a place to stay. Patient states his knee ledezma not hurt but only wants a place to spend the night. Patient admits to drinking alcohol today. Patient denies SI/HI, hallucinations, injury, fall, trauma, CP, SOB. Time Seen by Provider: 08/17/18 20:48 Chief Complaint (Nursing): Lower Extremity Problem/Injury History Per: Patient History/Exam Limitations: intoxication Onset/Duration Of Symptoms: Days Current Symptoms Are (Timing): Still Present Recent travel outside of the [place]: No Additional History Per: Patient Past Medical History Reviewed: Historical Data, Nursing Documentation, Vital Signs Vital Signs: Last Vital Signs Temp 97.5 F L 08/17/18 20:42 Pulse 74 08/17/18 20:42 Resp 16 08/17/18 20:42 BP 140/90 08/17/18 20:42 Pulse Ox 96 08/17/18 20:42 - Medical History PMH: Anxiety, Arthritis, Bronchitis, CAD, Depression, Diabetes (Pt. did not disclose to tag writer, not aware), Fractures (RIGHT ARM), Gastritis, Gall Bladder Disease (s/p cholecystectomy), HTN, Post Traumatic Stress Disorder, Rheumatoid Arthritis, Seizures, Chronic Pain Denies: Chronic Kidney Disease Surgical History: Cholecystectomy - [facility] Procedures ALCOHOL DETOXIFICATION (07/04/15) APPLICATION OF SPLINT (03/20/13) CLOSURE SKIN & SUBCUTANEOUS NEC (08/14/13) DETOXIFICATION SERVICES FOR SUBSTANCE ABUSE TREATMENT (03/22/16) ESOPHAGOGASTRODUODENOSCOPY [EGD] W/CLOSED BIOPSY (02/16/15) OTHER GROUP THERAPY (03/12/13) PHYSICAL THERAPY NEC (07/04/15) TETANUS TOXOID ADMINIST (01/19/14) Family History: States: Unknown Family Hx - Social History Hx Tobacco Use: No Hx Alcohol Use: Yes (daily) Hx Substance Use: No - Immunization History Hx Tetanus Toxoid Vaccination: No Hx Influenza Vaccination: Yes Hx Pneumococcal Vaccination: Yes Review Of Systems Constitutional: Negative for: Fever, Chills Cardiovascular: Negative for: Chest Pain Respiratory: Negative for: Shortness of Breath Gastrointestinal: Negative for: Nausea, Vomiting Neurological: Negative for: Weakness, Numbness Psych: Negative for: Depression, Suicidal ideation Physical Exam - Physical Exam Appears: Non-toxic, No Acute Distress Skin: Warm, Dry Head: Normacephalic Eye(s): bilateral: Normal Inspection Neck: Supple Chest: Symmetrical Cardiovascular: Rhythm Regular Respiratory: No Rales, No Rhonchi, No Wheezing Gastrointestinal/Abdominal: Soft, No Tenderness, No Guarding, No Rebound Extremity: Bilateral: Atraumatic, Normal Color And Temperature, Normal ROM Neurological/Psych: Oriented x3, Normal Speech, Normal Cognition Gait: With Assistance (wheelchair) ED Course And Treatment O2 Sat by Pulse Oximetry: 96 (ON RA) Pulse Ox Interpretation: Normal Disposition Counseled Patient/Family Regarding: Studies Performed, Diagnosis, Need For Followup - Disposition Referrals: [facility] at [facility] [Outside] Disposition: HOME/ ROUTINE Disposition Time: 20:49 Condition: FAIR Instructions: Alcohol Abuse and Alcoholism (DC) Forms: [employer] (Romanian) - Clinical Impression Clinical Impression: Alcohol intoxication, Chronic alcoholism - Scribe Statement The provider has reviewed the documentation as recorded by the Scribe Woo Brown All medical record entries made by the Scribe were at my direction and personally dictated by me. I have reviewed the chart and agree that the record accurately reflects my personal performance of the history, physical exam, medical decision making, and the department course for this patient. I have also personally directed, reviewed, and agree with the discharge instructions and disposition.
--- NOTE | 2018-08-17 20:50 | C.PDOC ---
Time Seen by Provider: 08/17/18 20:48 Chief Complaint (Nursing): Lower Extremity Problem/Injury Past Medical History Vital Signs: Last Vital Signs Temp 97.5 F L 08/17/18 20:42 Pulse 74 08/17/18 20:42 Resp 16 08/17/18 20:42 BP 140/90 08/17/18 20:42 Pulse Ox 96 08/17/18 20:50 - Medical History PMH: Anxiety, Arthritis, Bronchitis, CAD, Depression, Diabetes (Pt. did not disclose to repairer typewriter, not aware), Fractures (RIGHT ARM), Gastritis, Gall Bladder Disease (s/p cholecystectomy), HTN, Post Traumatic Stress Disorder, Rheumatoid Arthritis, Seizures, Chronic Pain Denies: Chronic Kidney Disease Surgical History: Cholecystectomy - [facility] Procedures ALCOHOL DETOXIFICATION (07/04/15) APPLICATION OF SPLINT (03/20/13) CLOSURE SKIN & SUBCUTANEOUS NEC (08/14/13) DETOXIFICATION SERVICES FOR SUBSTANCE ABUSE TREATMENT (03/22/16) ESOPHAGOGASTRODUODENOSCOPY [EGD] W/CLOSED BIOPSY (02/16/15) OTHER GROUP THERAPY (03/12/13) PHYSICAL THERAPY NEC (07/04/15) TETANUS TOXOID ADMINIST (01/19/14) - Social History Hx Tobacco Use: No Hx Alcohol Use: Yes (daily) Hx Substance Use: No - Immunization History Hx Tetanus Toxoid Vaccination: No Hx Influenza Vaccination: Yes Hx Pneumococcal Vaccination: Yes ED Course And Treatment O2 Sat by Pulse Oximetry: 96 Disposition - Disposition Forms: [employer] (Portuguese)
[2018-08-18 02:29] VITALS: TEMP 98.1
[2018-08-18 05:35] VITALS: BP 129/80; PULSE 82; RESP 18; O2SAT 99
== END 2018-08-18 05:28 | disposition home or self-care (01) ==
LOC: C.ER 20:27
DX: F10.229 Alcohol dependence with intoxication, unspecified (principal); I25.10 Atherosclerotic heart disease of native coronary artery without angina pectoris; E11.9 Type 2 diabetes mellitus without complications

== ENCOUNTER 2018-08-18 19:29 | Emergency (ER) | payer MEDICAID ==
[2018-08-18 19:29] VITALS: BMI 31.4
--- NOTE | 2018-08-18 19:51 | C.PDOC ---
History Of Present Illness 57 year old male presents to the for evaluation of alcohol intoxication for an unknown duration. Patient is familiar to this ED and has had many prior evaluations with similar presentations. Patient admits to drinking earlier today and does not have any physical complaints at this time. <Andrey Craig - Last Filed: 08/19/18 00:24> History Per: Patient History/Exam Limitations: intoxication Onset/Duration Of Symptoms: Hrs Current Symptoms Are (Timing): Still Present Suicide/Self Injury Attempted (Context): None Modifying Factor(s): Alcohol Associated Symptoms: denies: Suicidal Thoughts, Suicidal Plan Involuntary Hold By: None Recent travel outside of the [place]: No Additional History Per: Patient <Andrey Craig - Last Filed: 08/19/18 00:24> <Radha Sow - Last Filed: 08/19/18 05:24> Time Seen by Provider: 08/18/18 19:47 Chief Complaint (Nursing): Substance Abuse Past Medical History Reviewed: Historical Data, Nursing Documentation, Vital Signs Vital Signs: Last Vital Signs Temp 98 F 08/18/18 19:42 Pulse 86 08/18/18 19:42 Resp 18 08/18/18 19:42 BP 124/76 08/18/18 19:42 Pulse Ox 96 08/18/18 19:42 - Medical History PMH: Anxiety, Arthritis, Bronchitis, CAD, Depression, Diabetes (Pt. did not disclose to copywriter, not aware), Fractures (RIGHT ARM), Gastritis, Gall Bladder Disease (s/p cholecystectomy), HTN, Post Traumatic Stress Disorder, Rheumatoid Arthritis, Seizures, Chronic Pain Denies: Chronic Kidney Disease Surgical History: Cholecystectomy - [facility] Procedures ALCOHOL DETOXIFICATION (07/04/15) APPLICATION OF SPLINT (03/20/13) CLOSURE SKIN & SUBCUTANEOUS NEC (08/14/13) DETOXIFICATION SERVICES FOR SUBSTANCE ABUSE TREATMENT (03/22/16) ESOPHAGOGASTRODUODENOSCOPY [EGD] W/CLOSED BIOPSY (02/16/15) OTHER GROUP THERAPY (03/12/13) PHYSICAL THERAPY NEC (07/04/15) TETANUS TOXOID ADMINIST (01/19/14) Family History: States: Unknown Family Hx - Social History Hx Tobacco Use: No Hx Alcohol Use: Yes (daily) Hx Substance Use: No - Immunization History Hx Tetanus Toxoid Vaccination: No Hx Influenza Vaccination: Yes Hx Pneumococcal Vaccination: Yes <Andrey Craig - Last Filed: 08/19/18 00:24> Vital Signs: Last Vital Signs Temp 98.3 F 08/19/18 04:42 Pulse 92 H 08/19/18 04:42 Resp 16 08/19/18 04:42 BP 128/80 08/19/18 04:42 Pulse Ox 95 08/19/18 04:42 - [facility] Procedures ALCOHOL DETOXIFICATION (07/04/15) APPLICATION OF SPLINT (03/20/13) CLOSURE SKIN & SUBCUTANEOUS NEC (08/14/13) DETOXIFICATION SERVICES FOR SUBSTANCE ABUSE TREATMENT (03/22/16) ESOPHAGOGASTRODUODENOSCOPY [EGD] W/CLOSED BIOPSY (02/16/15) OTHER GROUP THERAPY (03/12/13) PHYSICAL THERAPY NEC (07/04/15) TETANUS TOXOID ADMINIST (01/19/14) <Radha Sow - Last Filed: 08/19/18 05:24> Review Of Systems Psych: Positive for: Other (EtOH intoxication ). Negative for: Suicidal ideation <Andrey Craig - Last Filed: 08/19/18 00:24> Physical Exam - Physical Exam Appears: Non-toxic, No Acute Distress, Other (visibly intoxicated ) Skin: Normal Color, Warm, Dry Head: Atraumatic, Normacephalic Eye(s): bilateral: Normal Inspection Oral Mucosa: Moist, Other (alcohol on breath ) Neck: Supple Chest: Symmetrical, No Deformity, No Tenderness Cardiovascular: Rhythm Regular Respiratory: No Accessory Muscle Use Extremity: Normal ROM Neurological/Psych: Other (arousable to touch and verbal stimuli ) <Andrey Craig Last Filed: 08/19/18 00:24> ED Course And Treatment O2 Sat by Pulse Oximetry: 96 (on RA) Pulse Ox Interpretation: Normal Progress Note: Labs ordered and reviewed. Reevaluation Time: 01:00 (signed over to overnight MD) Reassessment Condition: Improved <Andrey Craig Last Filed: 08/19/18 00:24> Pulse Ox Interpretation: Normal Reevaluation Time: 05:23 <Radha Sow - Last Filed: 08/19/18 05:24> Medical Decision Making Medical Decision Making: typical alcohol abuse/malingering <Rafa,Jeromy - Last Filed: 08/19/18 00:24> Disposition <Andrey Craig - Last Filed: 08/19/18 00:24> Counseled Patient/Family Regarding: Studies Performed, Diagnosis, Need For Followup - Disposition Disposition Time: 01:00 <Radha Sow - Last Filed: 08/19/18 05:24> - Disposition Referrals: [facility] at [facility] [Outside] Disposition: HOME/ ROUTINE Condition: FAIR Instructions: Alcohol Abuse and Alcoholism (DC) Forms: [facility] (Cuban) - Clinical Impression Clinical Impression: Chronic alcoholism - Scribe Statement The provider has reviewed the documentation as recorded by the Scribe (Kari Fajardo) Provider Attestation: All medical record entries made by the Scribe were at my direction and personally dictated by me. I have reviewed the chart and agree that the record accurately reflects my personal performance of the history, physical exam, medical decision making, and the department course for this patient. I have also personally directed, reviewed, and agree with the discharge instructions and disposition. <Andrey Craig - Last Filed: 08/19/18 00:24> Physician Patient Turnover Patient Signed Over To: Radha Sow Handoff Comments: dispo in AM when sober <Andrey Craig - Last Filed: 08/19/18 00:24>
[2018-08-19 04:45] VITALS: BP 128/80; PULSE 92; RESP 16; TEMP 98.3; O2SAT 95
== END 2018-08-19 05:15 | disposition home or self-care (01) ==
LOC: C.ER 19:29 → SUPCPDRO 19:29 → C.ER 08-19 05:15
DX: F10.229 Alcohol dependence with intoxication, unspecified (principal); Y90.9 Presence of alcohol in blood, level not specified

== ENCOUNTER 2018-08-19 18:49 | Emergency (ER) | payer MEDICAID ==
[2018-08-19 18:50] VITALS: BMI 31.4
--- NOTE | 2018-08-19 20:54 | C.PDOC ---
History Of Present Illness 57 y/o male presents to the ED complaining of chronic right leg pain. Patient is well known to this ED with many prior visits for homelessness and alcohol abuse. He offers no other acute complaints. Admits to drinking alcohol today. <Nathalie Snider - Last Filed: 08/19/18 20:59> History Per: Patient History/Exam Limitations: no limitations Onset/Duration Of Symptoms: Days Current Symptoms Are (Timing): Still Present Additional History Per: Prior Records <Nathalie Snider - Last Filed: 08/19/18 20:59> <Naomi Gonsales - Last Filed: 08/20/18 06:07> Time Seen by Provider: 08/19/18 19:27 Chief Complaint (Nursing): Lower Extremity Problem/Injury Past Medical History Reviewed: Historical Data, Nursing Documentation, Vital Signs Vital Signs: Last Vital Signs Temp 97.8 F 08/19/18 19:06 Pulse 85 08/19/18 19:06 Resp 18 08/19/18 19:48 BP 166/97 H 08/19/18 19:06 Pulse Ox 97 08/19/18 19:06 - Medical History PMH: Anxiety, Arthritis, Bronchitis, CAD, Depression, Diabetes (Pt. 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), Fractures (RIGHT ARM), Gastritis, Gall Bladder Disease (s/p cholecystectomy), HTN, Post Traumatic Stress Disorder, Rheumatoid Arthritis, Seizures, Chronic Pain Denies: Chronic Kidney Disease Surgical History: Cholecystectomy - [facility] Procedures ALCOHOL DETOXIFICATION (07/04/15) APPLICATION OF SPLINT (03/20/13) CLOSURE SKIN & SUBCUTANEOUS NEC (08/14/13) DETOXIFICATION SERVICES FOR SUBSTANCE ABUSE TREATMENT (03/22/16) ESOPHAGOGASTRODUODENOSCOPY [EGD] W/CLOSED BIOPSY (02/16/15) OTHER GROUP THERAPY (03/12/13) PHYSICAL THERAPY NEC (07/04/15) TETANUS TOXOID ADMINIST (01/19/14) Family History: States: Unknown Family Hx - Social History Hx Tobacco Use: No Hx Alcohol Use: Yes (daily) Hx Substance Use: No - Immunization History Hx Tetanus Toxoid Vaccination: No Hx Influenza Vaccination: Yes Hx Pneumococcal Vaccination: Yes <Nathalie Snider - Last Filed: 08/19/18 20:59> Vital Signs: Last Vital Signs Temp 98.0 F 08/19/18 22:00 Pulse 86 08/20/18 03:55 Resp 16 08/20/18 03:55 BP 132/78 08/20/18 03:55 Pulse Ox 96 08/20/18 03:55 - [facility] Procedures ALCOHOL DETOXIFICATION (07/04/15) APPLICATION OF SPLINT (03/20/13) CLOSURE SKIN & SUBCUTANEOUS NEC (08/14/13) DETOXIFICATION SERVICES FOR SUBSTANCE ABUSE TREATMENT (03/22/16) ESOPHAGOGASTRODUODENOSCOPY [EGD] W/CLOSED BIOPSY (02/16/15) OTHER GROUP THERAPY (03/12/13) PHYSICAL THERAPY NEC (07/04/15) TETANUS TOXOID ADMINIST (01/19/14) <Naomi Gonsales - Last Filed: 08/20/18 06:07> Review Of Systems Except As Marked, All Systems Reviewed And Found Negative. Constitutional: Negative for: Fever Cardiovascular: Negative for: Chest Pain Respiratory: Negative for: Shortness of Breath Gastrointestinal: Negative for: Nausea, Vomiting Musculoskeletal: Positive for: Leg Pain (chronic right leg pain) Neurological: Negative for: Numbness, Other (tingling) <Nathalie Snider J - Last Filed: 08/19/18 20:59> Physical Exam - Physical Exam Appears: No Acute Distress, Unkempt (and malodorous) Skin: Warm, Dry Head: Atraumatic, Normacephalic Eye(s): bilateral: Normal Inspection, PERRL, EOMI Oral Mucosa: Moist, Other (alcohol on breath) Neck: Normal ROM Chest: Symmetrical Extremity: Capillary Refill (less than 2 sec), Swelling (bilateral severe lower leg edema), Other (chronic skin changes to bilateral lower extremities) Pulses: Left Dorsalis Pedis: Normal, Right Dorsalis Pedis: Normal Neurological/Psych: Oriented x3, Other (Slurred speech) <Nathalie Snider - Last Filed: 08/19/18 20:59> ED Course And Treatment O2 Sat by Pulse Oximetry: 97 (RA) Pulse Ox Interpretation: Normal <Nathalie Snider - Last Filed: 08/19/18 20:59> Medical Decision Making Medical Decision Making: Impression: Alcohol Intoxication Plan: * Pending clinical sobriety <Nathalie Snider - Last Filed: 08/19/18 20:59> Medical Decision Making: On reassessment patient resting comfortably in stretcher. Vital signs stable. 5:39 Informed by RN that patient got out of bed, into wheelchair, and left the ED. Patient eloped prior to receiving discharge papers. <Naomi Gonsales Marco A - Last Filed: 08/20/18 06:07> Disposition <Nathalie Snider - Last Filed: 08/19/18 20:59> - Disposition Disposition Time: 05:40 - POA Present On Arrival: None <TarahNaomi osman Marco A - Last Filed: 08/20/18 06:07> - Disposition Disposition: ELOPEMENT - ER ONLY Condition: STABLE Forms: [facility] (South [place]ese) - Clinical Impression Clinical Impression: Alcohol intoxication, Chronic leg pain - Scribe Statement The provider has reviewed the documentation as recorded by the Jada Gunter Provider Attestation: All medical record entries made by the Jada were at my direction and personally dictated by me. I have reviewed the chart and agree that the record accurately reflects my personal performance of the history, physical exam, medical decision making, and the department course for this patient. I have also personally directed, reviewed, and agree with the discharge instructions and disposition. <Nathalie Snider - Last Filed: 08/19/18 20:59>
[2018-08-20 04:15] VITALS: TEMP 98
[2018-08-20 04:17] VITALS: PULSE 86; RESP 16
[2018-08-20 04:49] VITALS: BP 132/78; O2SAT 96
== END 2018-08-20 03:55 | disposition left against medical advice (07) ==
LOC: C.ER 18:49
DX: F10.129 Alcohol abuse with intoxication, unspecified (principal); G89.29 Other chronic pain; M79.604 Pain in right leg; Z59.0 Homelessness

== ENCOUNTER 2018-08-20 20:30 | Inpatient (IN) | payer MEDICAID ==
[2018-08-20 20:31] VITALS: BMI 31.4
--- NOTE | 2018-08-20 20:45 | C.PDOC ---
History Of Present Illness 57 year old male presents to the ED for alcohol intoxication. Patient admits to drinking alcohol today. Patient also c/o right leg swelling more than usual as well as blisters on his leg. Patient has multiple prior visits to the ED. Patient denies SI/HI, hallucinations, weakness, numbness, injury, fall, trauma. 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), Fractures (RIGHT ARM), Gastritis, Gall Bladder Disease (s/p cholecystectomy), HTN, Post Traumatic Stress Disorder, Rheumatoid Arthritis, Seizures, Chronic Pain Denies: Chronic Kidney Disease Surgical History: Cholecystectomy - [facility] Procedures ALCOHOL DETOXIFICATION (07/04/15) APPLICATION OF SPLINT (03/20/13) CLOSURE SKIN & SUBCUTANEOUS NEC (08/14/13) DETOXIFICATION SERVICES FOR SUBSTANCE ABUSE TREATMENT (03/22/16) ESOPHAGOGASTRODUODENOSCOPY [EGD] W/CLOSED BIOPSY (02/16/15) OTHER GROUP THERAPY (03/12/13) PHYSICAL THERAPY NEC (07/04/15) TETANUS TOXOID ADMINIST (01/19/14) Family History: States: Unknown Family Hx - Social History Hx Tobacco Use: No Hx Alcohol Use: Yes (daily) Hx Substance Use: No - Immunization History Hx Tetanus Toxoid Vaccination: No Hx Influenza Vaccination: Yes Hx Pneumococcal Vaccination: Yes Review Of Systems Constitutional: Negative for: Fever, Chills Cardiovascular: Negative for: Chest Pain Respiratory: Negative for: Shortness of Breath Gastrointestinal: Negative for: Nausea, Vomiting Skin: Positive for: Other (blisters) Neurological: Negative for: Weakness, Numbness Psych: Negative for: Depression, Suicidal ideation Physical Exam - Physical Exam Appears: Non-toxic, No Acute Distress Skin: Warm, Dry Head: Normacephalic Eye(s): bilateral: Normal Inspection Neck: Supple Chest: Symmetrical Cardiovascular: Rhythm Regular Respiratory: No Rales, No Rhonchi, No Wheezing Gastrointestinal/Abdominal: Soft, No Tenderness, No Guarding, No Rebound Extremity: Swelling (right leg > left leg), Other (blisters on right leg, warmth ) Pulses: Left Dorsalis Pedis: Normal, Right Dorsalis Pedis: Normal Neurological/Psych: Oriented x3, Normal Speech Gait: With Assistance (wheelchair) ED Course And Treatment - Laboratory Results Result Diagrams: 08/20/18 23:19 08/20/18 23:19 O2 Sat by Pulse Oximetry: 97 (ON RA) Pulse Ox Interpretation: Normal Progress Note: Plan: - ABG. - Labs. - Lovenox 100 mg SC. - Blood culture Disposition Discussed With Dr.: Malcolm Fajardo Comment: accepted the patient on his service and took over the care at 1:30AM Doctor Will See Patient In The: Hospital Counseled Patient/Family Regarding: Studies Performed, Diagnosis, Need For Followup - Disposition Referrals: [facility] at [facility] [Outside] Disposition: HOSPITALIZED Disposition Time: 20:44 Condition: FAIR - Clinical Impression Clinical Impression: Alcohol intoxication, Cellulitis - Scribe Statement The provider has reviewed the documentation as recorded by the Scribe Woo Brown All medical record entries made by the Scribe were at my direction and personally dictated by me. I have reviewed the chart and agree that the record accurately reflects my personal performance of the history, physical exam, medical decision making, and the department course for this patient. I have also personally directed, reviewed, and agree with the discharge instructions and disposition. Decision To Admit - Pt Status Changed To: Hospital Disposition Of: Inpatient - Admit Certification Admit to Inpatient:: After my assessment, the patient will require hospitalizati on for at least two midnights. This is because of the severity of symptoms shown, intensity of services needed, and/or the medical risk in this patient being treated as an outpatient. - InPatient: Physician Admission Certification: I certify that this patient requires 2 or more midnights of care for the following reason:: After my assessment, the patient will require hospitalization for at least two midnights. This is because of the severity of symptoms shown, intensity of services needed, and/or the medical risk in this patient being treated as an outpatient. - . Bed Request Type: Regular Admitting Physician: Malcolm Fajardo Patient Diagnosis: Alcohol intoxication, Cellulitis
[2018-08-20] MEDS ORDERED: Enoxaparin 40 mg Syringe SC STA (21:02)
[2018-08-20] MEDS ORDERED: Enoxaparin 100 mg Syringe ONE (21:14)
[2018-08-20 21:47] LABS: ABG ALLEN TEST POS; ARTERIAL BLOOD GAS HCO3 23.9 mmol/L (21-28); ARTERIAL BLOOD GAS O2 SAT 99.4 % (95-98); ARTERIAL BLOOD GAS PCO2 28 mm/Hg (35-45); ARTERIAL BLOOD GAS PH 7.48 (7.35-7.45); ARTERIAL BLOOD GAS PO2 144 mm/Hg (80-100); ARTERIAL BLOOD GAS TCO2 21.8 mmol/L (22-28)
[2018-08-20] MEDS ORDERED: Morphine 4 MG/ML VIAL ONE (22:04)
[2018-08-20 23:22] LABS: BASO % 1.2 % (0.0-2.0); EOS # 0.1 K/uL (0.0-0.7); HEMOGLOBIN 10.5 g/dL (12.0-18.0); LYMPH # 1.1 K/uL (1.0-4.3); LYMPH % 36.4 % (20.0-40.0); MEAN CORPUSCULAR HEMOGLOBIN 35.6 pg (27.0-31.0); MEAN CORPUSCULAR HGB CONC 34.9 g/dL (33.0-37.0); MEAN PLATELET VOLUME 7.9 fL (7.2-11.7); MONO # 0.5 K/uL (0.0-0.8); MONO % 15.3 % (0.0-10.0); NEUT # 1.4 K/uL (1.8-7.0); NEUT % 44.1 % (50.0-75.0); NRBC % 0.4 % (0.0-2.0); RBC 2.96 Mil/uL (4.40-5.90); RED CELL DISTRIBUTION WIDTH 14.6 % (11.5-14.5); WHITE BLOOD COUNT 3.1 K/uL (4.8-10.8)
[2018-08-20 23:26] VITALS: RESP 20
[2018-08-20 23:44] LABS: ALB/GLOB RATIO 1.1 (1.0-2.1); ALBUMIN 3.9 g/dL (3.5-5.0); ALT/SGPT 56 U/L (21-72); AST/SGOT 249 U/L (17-59); BLOOD UREA NITROGEN 10 mg/dL (9-20); CALCIUM 8.8 mg/dl (8.6-10.4); GFR NON-AFRICAN AMERICAN > 60
[2018-08-20 23:56] LABS: INR 1.2; PARTIAL THROMBOPLASTIN TIME 38 SECONDS (21-34)
[2018-08-21] LABS: D DIMER < 200 ng/mlDDU (0-243)
[2018-08-21] MEDS ORDERED: Piperacillin/Tazobact 3.375 gm 100 ML IVPB STA (00:13)
[2018-08-21] MEDS ORDERED: Clindamycin 300 MG in Sodium Chloride 0.9% 50 ML IVPB STA (00:14)
[2018-08-21] MEDS ORDERED: Vancomycin 1 GM 1 GM/250 ML BAG IVPB SCH (00:15)
[2018-08-21] MEDS ORDERED: Piperacillin/Tazobact 3.375 gm 100 ML IVPB ONE (00:21)
[2018-08-21] MEDS ORDERED: Vancomycin 1 GM 1 GM/250 ML BAG IVPB ONE (00:25)
[2018-08-21] MEDS ORDERED: Vancomycin 1 GM 1 GM/250 ML BAG IVPB STA (01:27)
[2018-08-21] MEDS ORDERED: Potassium Chloride 20 mEq ER Tab PO ONE (08:15)
[2018-08-21] MEDS ORDERED: FOLIC ACID IV SCH (10:00)
[2018-08-21] MEDS ORDERED: THIAMINE IV SCH (10:00)
[2018-08-21] MEDS ORDERED: MULTIVITAMIN IV SCH (10:00)
[2018-08-21] MEDS ORDERED: [UNRECOGNIZED DRUG - OTHER] IV SCH (10:00)
[2018-08-21] MEDS: Pantoprazole 40 mg EC Tab PO SCH (10:13)
[2018-08-21] MEDS: Vancomycin 1 gm/NS 200 ml 1 GM/200 ML BAG IVPB SCH (10:14)
[2018-08-21] MEDS: Enoxaparin 40 mg Syringe SC SCH (10:14)
[2018-08-21 11:29] LABS: BLOOD UREA NITROGEN 7 mg/dL (9-20); CALCIUM 8.6 mg/dl (8.6-10.4); GFR NON-AFRICAN AMERICAN > 60
[2018-08-21] MEDS: Piperacill/Tazo 3.375gm in Dex 3.375 GM/50 ML BAG IVPB SCH ×2 (14:04→21:14)
[2018-08-21] MEDS: Magnesium Sulfate 1 gm in D5W 1 GM/100 ML BAG IVPB SCH (14:44)
[2018-08-21] MEDS: Potassium Chloride 20 mEq ER Tab PO SCH (18:15)
--- NOTE | 2018-08-21 22:53 | HP ---
HISTORY OF PRESENT ILLNESS: This is a 57-year-old black male, who came to the emergency room with history of EtOH. The patient has a complaint of right leg pain and swelling. The patient also has redness of the leg with cellulitis. REVIEW OF SYSTEMS: CARDIOVASCULAR SYSTEM: Negative for chest pain. RESPIRATORY SYSTEM: Negative for shortness of breath. GASTROINTESTINAL SYSTEM: Negative for nausea, vomiting, and abdominal pain. CENTRAL NERVOUS SYSTEM: No focal neurological complaints offered. The patient has right leg cellulitis. PAST MEDICAL HISTORY: History of alcoholism. Noncompliant. ALLERGIES: NO KNOWN ALLERGIES. FAMILY HISTORY: No known inherited diseases. SOCIAL HISTORY: Alcohol present. MEDICATIONS: The patient's medications are reviewed. PHYSICAL EXAMINATION: GENERAL: This is a 57-year-old black male, awake, comfortable. VITAL SIGNS: Temperature 98.1, pulse 97, blood pressure 134/81 mmHg, pulse oximetry is 100% on room air. HEENT: Normal. NECK: JVP is flat. Carotids, no bruits. LUNGS: No rales. No wheezing. HEART: S1 and S2, normal. No gallop. No murmur. ABDOMEN: Soft, nontender. No organomegaly. CENTRAL NERVOUS SYSTEM: No focal neurological deficits. Right leg cellulitis edema present. Tenderness present. LABORATORY DATA: On admission, white cell count normal. Mild anemia present. IMPRESSION: 1. Cellulitis of the right leg. 2. Ethanol. 3. Elevated D-dimer. PLAN: The patient will be admitted to the floor. We will get consult with Dr. Huang. We will give IV antibiotics. Continue other management. Malcolm Fajardo MD
--- NOTE | 2018-08-21 22:59 | CP.PCM.CON ---
History of Present Illness - History of Present Illness History of Present Illness: 57 yo mal patient of Dr Uri Fajardo admitted with painful swelling of LLE Referred for LLE swelling and pain Hx ETOH seizures Review of Systems - Review of Systems All systems: reviewed and no additional remarkable complaints except - Constitutional Constitutional: As Per HPI - EENT Eyes: absent: As Per HPI, Blind Spots, Blurred Vision, Change in Vision, Decreased Night Vision, Diplopia, Discharge, Dry Eye, Exophthalmos, Floaters, Irritation, Itchy Eyes, Loss of Peripheral Vision, Pain, Photophobia, Requires Corrective Lenses, Sees Flashes, Spots in Vision, Tunnel Vision, Other Visual Disturbances, Loss of Vision, Other Ears: absent: As Per HPI, Decreased Hearing, Ear Discharge, Ear Pain, Tinnitus, Abnormal Hearing, Disequilibrium, Dizziness, Other Nose/Mouth/Throat: absent: As Per HPI, Epistaxis, Nasal Congestion, Nasal D ischarge, Nasal Obstruction, Nasal Trauma, Nose Pain, Post Nasal Drip, Sinus Pain, Sinus Pressure, Bleeding Gums, Change in Voice, Dental Pain, Dry Mouth, Dysphagia, Halitosis, Hoarsness, Lip Swelling, Mouth Lesions, Mouth Pain, Odynophagia, Sore Throat, Throat Swelling, Tongue Swelling, Facial Pain, Neck Pain, Neck Mass, Other - Cardiovascular Cardiovascular: absent: As Per HPI, Acrocyanosis, Chest Pain, Chest Pain at Rest, Chest Pain with Activity, Claudication, Diaphoresis, Dyspnea, Dyspnea on Exertion, Edema, Irregular Heart Rhythm, Pain Radiating to Arm/Neck/Jaw, Leg Edema, Leg Ulcers, Lightheadedness, Orthopnea, Palpitations, Paroxysmal Nocturnal Dyspnea, Pedal Edema, Radiating Pain, Rapid Heart Rate, Slow Heart Rate, Syncope, Other - Respiratory Respiratory: absent: As Per HPI, Cough, Dyspnea, Hemoptysis, Dyspnea on Exertion, Wheezing, Snoring, Stridor, Pain on Inspiration, Chest Congestion, Excessive Mucous Production, Change in Mucous Color, Pain with Coughing, Other - Gastrointestinal Gastrointestinal: absent: As Per HPI, Abdominal Pain, Belching, Bloating, Change in Bowel Habits, Change in Stool Character, Coffee Ground Emesis, Constipation, Cramping, Diarrhea, Dyspepsia, Dysphagia, Early Satiety, Excessive Flatus, Fecal Incontinence, Heartburn, Hematemesis, Hematochezia, Loose Stools, Melena, Nausea, Odynophagia, Temesmus, Vomiting, Other - Genitourinary Genitourinary: absent: As Per HPI, Change in Urinary Stream, Difficulty Urinating, Dysuria, Flank Pain, Hematuria, Pyuria, Nocturia, Urinary Incontinence, Urinary Frequency, Urinary Hesitance, Urinary Urgency, Voiding Freq/Small Amts, Freq UTI, Hx Renal/Bladder Calculi, Hx /Renal Surgery, Bladder Distension, Other - Musculoskeletal Musculoskeletal: As Per HPI - Integumentary Integumentary: As Per HPI - Neurological Neurological: absent: As Per HPI, Abnormal Gait, Abnormal Hearing, Abnormal Movements, Abnormal Speech, Behavioral Changes, Burning Sensations, Confusion, Convulsions, Disequilibrium, Dizziness, Numbness, Focal Weakness, Frequent Falls, Headaches, Lack of Coordination, Loss of Vision, Memory Loss, Paresthesias, Radicular Pain, Restless Legs, Sensory Deficit, Syncope, Tingling, Tremor, Vertigo, Weakness, Other Visual Disturbances, Other - Psychiatric Psychiatric: absent: As Per HPI, Abnormal Sleep Pattern, Anhedonia, Anxiety, Auditory Hallucinations, Behavioral Changes, Change in Appetite, Change in Libido, Confusion, Depression, Difficulty Concentrating, Hallucinations, Homicidal Ideation, Hopelessness, Irritability, Memory Loss, Mood Swings, Panic Attacks, Paranoia, Suicidal Ideation, Visual Hallucinations, Tactile Hallucinations, Other - Endocrine Endocrine: absent: As Per HPI, Change in Body Appearance, Change in Libido, Cold Intolorance, Deepening of Voice, Excessive Sweating, Fatigue, Flushing, Heat Intolorance, Increase in Ring/Shoe/Hat Size, Palpitations, Polydipsia, Polyphagia, Polyuria, Other - Hematologic/Lymphatic Hematologic: absent: As Per HPI, Easy Bleeding, Easy Bruising, Lymphadenopathy, Other Past Patient History - Infectious Disease Hx of Infectious Diseases: None - Past Medical History & Family History Past Medical History?: Yes - Past Social History Smoking Status: Never Smoked - CARDIAC Hx Cardiac Disorders: Yes Hx Hypertension: Yes - PULMONARY Hx Respiratory Disorders: Yes Hx Bronchitis: Yes - NEUROLOGICAL Hx Neurological Disorder: Yes Hx Seizures: Yes - HEENT Hx HEENT Problems: No - RENAL Hx Chronic Kidney Disease: No - ENDOCRINE/METABOLIC Hx Endocrine Disorders: Yes Hx Diabetes Mellitus Type 2: Yes - HEMATOLOGICAL/ONCOLOGICAL Hx Blood Disorders: No - INTEGUMENTARY Hx Dermatological Problems: Yes Hx Cellulitis: Yes (BLE with blisters) - MUSCULOSKELETAL/RHEUMATOLOGICAL Hx Musculoskeletal Disorders: Yes Hx Falls: Yes Hx Rheumatoid Arthritis: Yes - GASTROINTESTINAL Hx Gastrointestinal Disorders: Yes Hx Gall Bladder Disease: Yes (s/p cholecystectomy) Hx Gastritis: Yes - GENITOURINARY/GYNECOLOGICAL Hx Genitourinary Disorders: No - PSYCHIATRIC Hx Psychophysiologic Disorder: No Hx Substance Use: No - SURGICAL HISTORY Hx Surgeries: Yes Hx Cholecystectomy: Yes - ANESTHESIA Hx Anesthesia: Yes Hx Anesthesia Reactions: No Hx Malignant Hyperthermia: No Meds Allergies/Adverse Reactions: Allergies Allergy/AdvReac Type Severity Reaction Status Date / Time No Known Allergies Allergy Verified 08/19/18 19:16 - Medications Medications: Current Medications Chlordiazepoxide (Librium) 25 mg PO Q8 [facility] Stop: 08/22/18 08:16 Last Admin: 08/21/18 21:15 Dose: 25 mg Enoxaparin Sodium (Lovenox) 40 mg SC DAILY [facility] Last Admin: 08/21/18 10:14 Dose: 40 mg Folic Acid (Folic Acid) 1 mg PO DAILY [facility] Piperacillin Sod/Tazobactam Sod (Zosyn 3.375 Gm Iv Premix) 3.375 gm in 50 mls @ 100 mls/hr IVPB Q8 [facility]; Protocol Last Admin: 08/21/18 21:14 Dose: 100 mls/hr Vancomycin/Sodium Chloride (Vancomycin 1 Gm/Ns 200 Ml) 1 gm in 200 mls @ 133.333 mls/hr IVPB Q24H [facility]; Protocol Stop: 08/26/18 10:01 Last Admin: 08/21/18 10:14 Dose: 133.333 mls/hr Levetiracetam (Keppra) 750 mg PO TID [facility] Last Admin: 08/21/18 18:14 Dose: 750 mg Lorazepam (Ativan) 1 mg IVP Q6H PRN PRN Reason: Anxiety Last Admin: 08/21/18 11:48 Dose: 1 mg Multivitamins (Hexavitamin) 1 tab PO DAILY [facility] Pantoprazole Sodium (Protonix Ec Tab) 40 mg PO DAILY [facility] Last Admin: 08/21/18 10:13 Dose: 40 mg Potassium Chloride (K-Dur 20 Meq Er Tab) 40 meq PO 1800 [facility] Stop: 08/22/18 18:01 Last Admin: 08/21/18 18:15 Dose: 40 meq Thiamine HCl (Vitamin B1 Tab) 100 mg PO DAILY [facility] Physical Exam - Constitutional Appears: Non-toxic, Chronically Ill - Head Exam Head Exam: NORMOCEPHALIC - Eye Exam Eye Exam: absent: Scleral icterus - ENT Exam ENT Exam: Mucous Membranes Dry - Neck Exam Neck exam: Negative for: Lymphadenopathy - Respiratory Exam Respiratory Exam: Decreased Breath Sounds - Cardiovascular Exam Cardiovascular Exam: REGULAR RHYTHM - GI/Abdominal Exam GI & Abdominal Exam: Diminished Bowel Sounds - Rectal Exam Rectal Exam: Deferred - Exam Exam: NORMAL INSPECTION - Extremities Exam Extremities exam: Positive for: calf tenderness, pedal edema, pedal pulses present. Negative for: tenderness Additional comments: swelling and redness inne r left leg with blisters - Back Exam Back exam: absent: CVA tenderness (L), CVA tenderness (R) - Neurological Exam Neurological exam: Alert, CN II-XII Intact, Oriented x3, Reflexes Normal - Psychiatric Exam Psychiatric exam: Depressed - Skin Skin Exam: Dry Results - Vital Signs Recent Vital Signs: Last Vital Signs Temp 98.5 F 08/21/18 15:38 Pulse 100 H 08/21/18 15:38 Resp 20 08/21/18 15:38 BP 133/84 08/21/18 15:38 Pulse Ox 99 08/21/18 15:38 - Labs Result Diagrams: 08/22/18 11:04 08/22/18 11:04 Labs: Laboratory Results - last 24 hr 08/20/18 08/20/18 08/20/18 23:19 23:19 23:19 WBC 3.1 L RBC 2.96 L Hgb 10.5 L Hct 30.1 L MCV 102.0 H MCH 35.6 H MCHC 34.9 RDW 14.6 H Plt Count 73 L MPV 7.9 Neut % (Auto) 44.1 L Lymph % (Auto) 36.4 Creek % (Auto) 15.3 H Eos % (Auto) 3.0 Baso % (Auto) 1.2 Neut # (Auto) 1.4 L Lymph # (Auto) 1.1 Creek # (Auto) 0.5 Eos # (Auto) 0.1 Baso # (Auto) 0.0 PT 13.0 H INR 1.2 APTT 38 H D-Dimer, Quantitative < 200 Sodium 141 Potassium 3.2 L Chloride 101 Carbon Dioxide 21 L Anion Gap 22 H BUN 10 Creatinine 0.7 L Est GFR ( Amer) > 60 Est GFR (Non-Af Amer) > 60 Random Glucose 93 Lactic Acid Calcium 8.8 Phosphorus Magnesium Total Bilirubin 1.0 AST 249 H D ALT 56 Alkaline Phosphatase 80 Total Protein 7.6 Albumin 3.9 Globulin 3.7 Albumin/Globulin Ratio 1.1 Alcohol, Quantitative 292 H 08/21/18 08/21/18 11:10 11:10 WBC RBC Hgb Hct MCV MCH MCHC RDW Plt Count MPV Neut % (Auto) Lymph % (Auto) Creek % (Auto) Eos % (Auto) Baso % (Auto) Neut # (Auto) Lymph # (Auto) Creek # (Auto) Eos # (Auto) Baso # (Auto) PT INR APTT D-Dimer, Quantitative Sodium 139 Potassium 3.4 L Chloride 102 Carbon Dioxide 26 Anion Gap 15 BUN 7 L Creatinine 0.7 L Est GFR ( Amer) > 60 Est GFR (Non-Af Amer) > 60 Random Glucose 95 Lactic Acid 2.2 H Calcium 8.6 Phosphorus 3.2 Magnesium 1.4 L Total Bilirubin AST ALT Alkaline Phosphatase Total Protein Albumin Globulin Albumin/Globulin Ratio Alcohol, Quantitative Assessment & Plan (1) Alcohol intoxication Status: Acute (2) Cellulitis Status: Acute - Assessment and Plan (Free Text) Assessment: cont wound caRE AND iv ANTIBIOTICS
[2018-08-22] MEDS: Piperacill/Tazo 3.375gm in Dex 3.375 GM/50 ML BAG IVPB SCH ×3 (05:34→21:32)
[2018-08-22 07:19] LABS: BLOOD UREA NITROGEN 7 mg/dL (9-20); GFR NON-AFRICAN AMERICAN > 60
[2018-08-22] MEDS: Vancomycin 1 gm/NS 200 ml 1 GM/200 ML BAG IVPB SCH (09:27)
[2018-08-22] MEDS: Pantoprazole 40 mg EC Tab PO SCH (09:27)
[2018-08-22] MEDS: Multiple Vitamins Tab PO SCH (09:27)
[2018-08-22] MEDS: Enoxaparin 40 mg Syringe SC SCH (09:27)
[2018-08-22 11:15] LABS: BASO % 0.5 % (0.0-2.0); EOS # 0.1 K/uL (0.0-0.7); EOS % 1.9 % (0.0-4.0); LYMPH # 0.5 K/uL (1.0-4.3); MEAN CELL VOLUME 101.8 fL (80.0-94.0); MEAN CORPUSCULAR HEMOGLOBIN 35.5 pg (27.0-31.0); MEAN CORPUSCULAR HGB CONC 34.9 g/dL (33.0-37.0); MEAN PLATELET VOLUME 8.4 fL (7.2-11.7); MONO # 0.4 K/uL (0.0-0.8); MONO % 14.4 % (0.0-10.0); NEUT # 2.1 K/uL (1.8-7.0); NEUT % 68.2 % (50.0-75.0); NRBC % 0.3 % (0.0-2.0); RBC 3.11 Mil/uL (4.40-5.90); RED CELL DISTRIBUTION WIDTH 14.9 % (11.5-14.5); WHITE BLOOD COUNT 3.1 K/uL (4.8-10.8)
[2018-08-22 11:36] LABS: ALBUMIN 3.9 g/dL (3.5-5.0); ALT/SGPT 59 U/L (21-72); AST/SGOT 200 U/L (17-59); BLOOD UREA NITROGEN 6 mg/dL (9-20); CALCIUM 9.1 mg/dl (8.6-10.4); GFR NON-AFRICAN AMERICAN > 60
--- NOTE | 2018-08-22 12:14 | CP.PCM.PN ---
Subjective - Date & Time of Evaluation Date of Evaluation: 08/22/18 Time of Evaluation: 12:12 - Subjective Subjective: CONDITION SAME. CELLULITIS IMPROVING. Objective - Vital Signs/Intake and Output Vital Signs (last 24 hours): Temp Pulse Resp BP Pulse Ox 98.2 F 93 H 20 145/93 H 98 08/22/18 08:33 08/22/18 08:33 08/22/18 08:33 08/22/18 08:33 08/22/18 08:33 Intake and Output: 08/22/18 08/22/18 06:59 18:59 Intake Total 1550 Output Total 1250 Balance 300 - Medications Medications: Current Medications Enoxaparin Sodium (Lovenox) 40 mg SC DAILY [facility] Last Admin: 08/22/18 09:27 Dose: 40 mg Folic Acid (Folic Acid) 1 mg PO DAILY [facility] Last Admin: 08/22/18 09:27 Dose: 1 mg Piperacillin Sod/Tazobactam Sod (Zosyn 3.375 Gm Iv Premix) 3.375 gm in 50 mls @ 100 mls/hr IVPB Q8 [facility]; Protocol Last Admin: 08/22/18 05:34 Dose: 100 mls/hr Vancomycin/Sodium Chloride (Vancomycin 1 Gm/Ns 200 Ml) 1 gm in 200 mls @ 133.333 mls/hr IVPB Q24H [facility]; Protocol Stop: 08/26/18 10:01 Last Admin: 08/22/18 09:27 Dose: 133.333 mls/hr Levetiracetam (Keppra) 750 mg PO TID [facility] Last Admin: 08/22/18 09:27 Dose: 750 mg Lorazepam (Ativan) 1 mg IVP Q6H PRN PRN Reason: Anxiety Last Admin: 08/21/18 11:48 Dose: 1 mg Multivitamins (Hexavitamin) 1 tab PO DAILY [facility] Last Admin: 08/22/18 09:27 Dose: 1 tab Pantoprazole Sodium (Protonix Ec Tab) 40 mg PO DAILY [facility] Last Admin: 08/22/18 09:27 Dose: 40 mg Potassium Chloride (K-Dur 20 Meq Er Tab) 40 meq PO 1800 [facility] Stop: 08/22/18 18:01 Last Admin: 08/21/18 18:15 Dose: 40 meq Thiamine HCl (Vitamin B1 Tab) 100 mg PO DAILY [facility] Last Admin: 08/22/18 09:27 Dose: 100 mg - Labs Labs: 08/22/18 11:04 08/22/18 11:04 PT 13.0 SECONDS (9.7-12.2) H 08/20/18 23:19 INR 1.2 08/20/18 23:19 APTT 38 SECONDS (21-34) H 08/20/18 23:19 - Constitutional Appears: Chronically Ill - Eye Exam Eye Exam: Normal appearance Pupil Exam: PERRL - Respiratory Exam Respiratory Exam: Clear to Ausculation Bilateral, NORMAL BREATHING PATTERN - Cardiovascular Exam Cardiovascular Exam: REGULAR RHYTHM, +S1, +S2 - GI/Abdominal Exam GI & Abdominal Exam: Soft, Normal Bowel Sounds - Extremities Exam Extremities Exam: Full ROM, Normal Capillary Refill, Normal Inspection. absent: Joint Swelling, Pedal Edema Assessment and Plan - Assessment and Plan (Free Text) Assessment: SAME. Plan: CT PRESENT TREATMENT.
[2018-08-22] MEDS: Potassium Chloride 20 mEq ER Tab PO SCH (17:51)
[2018-08-23] MEDS: Piperacill/Tazo 3.375gm in Dex 3.375 GM/50 ML BAG IVPB SCH ×3 (05:21→21:29)
[2018-08-23 06:41] LABS: BASO % 0.8 % (0.0-2.0); EOS # 0.1 K/uL (0.0-0.7); EOS % 3.7 % (0.0-4.0); HEMOGLOBIN 11.9 g/dL (12.0-18.0); LYMPH # 0.6 K/uL (1.0-4.3); LYMPH % 19.3 % (20.0-40.0); MEAN CELL VOLUME 102.4 fL (80.0-94.0); MEAN CORPUSCULAR HEMOGLOBIN 35.7 pg (27.0-31.0); MEAN CORPUSCULAR HGB CONC 34.9 g/dL (33.0-37.0); MONO # 0.5 K/uL (0.0-0.8); NEUT % 61.2 % (50.0-75.0); NRBC % 0.5 % (0.0-2.0); RBC 3.34 Mil/uL (4.40-5.90); RED CELL DISTRIBUTION WIDTH 14.6 % (11.5-14.5); WHITE BLOOD COUNT 3.2 K/uL (4.8-10.8)
[2018-08-23 07:03] LABS: ALBUMIN 4.1 g/dL (3.5-5.0); ALT/SGPT 93 U/L (21-72); AST/SGOT 420 U/L (17-59); BLOOD UREA NITROGEN 7 mg/dL (9-20); CALCIUM 8.9 mg/dl (8.6-10.4); GFR NON-AFRICAN AMERICAN > 60
[2018-08-23] MEDS: Enoxaparin 40 mg Syringe SC SCH (10:06)
[2018-08-23] MEDS: Vancomycin 1 gm/NS 200 ml 1 GM/200 ML BAG IVPB SCH (10:06)
[2018-08-23] MEDS: Multiple Vitamins Tab PO SCH (10:06)
[2018-08-23] MEDS: Pantoprazole 40 mg EC Tab PO SCH (10:07)
--- NOTE | 2018-08-23 11:00 | CP.PCM.PN ---
Subjective - Date & Time of Evaluation Date of Evaluation: 08/23/18 Time of Evaluation: 10:58 - Subjective Subjective: CONDITION SAME. AFEBRILE. CELLULITIS RT LEG PRESENT. Objective - Vital Signs/Intake and Output Vital Signs (last 24 hours): Temp Pulse Resp BP Pulse Ox 97.7 F 98 H 20 143/92 H 98 08/23/18 07:12 08/23/18 07:12 08/23/18 07:12 08/23/18 07:12 08/23/18 07:12 - Medications Medications: Current Medications Enoxaparin Sodium (Lovenox) 40 mg SC DAILY [facility] Last Admin: 08/23/18 10:06 Dose: 40 mg Folic Acid (Folic Acid) 1 mg PO DAILY [facility] Last Admin: 08/23/18 10:06 Dose: 1 mg Piperacillin Sod/Tazobactam Sod (Zosyn 3.375 Gm Iv Premix) 3.375 gm in 50 mls @ 100 mls/hr IVPB Q8 [facility]; Protocol Last Admin: 08/23/18 05:21 Dose: 100 mls/hr Vancomycin/Sodium Chloride (Vancomycin 1 Gm/Ns 200 Ml) 1 gm in 200 mls @ 133.333 mls/hr IVPB Q24H [facility]; Protocol Stop: 08/26/18 10:01 Last Admin: 08/23/18 10:06 Dose: 133.333 mls/hr Levetiracetam (Keppra) 750 mg PO TID [facility] Last Admin: 08/23/18 10:06 Dose: 750 mg Lorazepam (Ativan) 1 mg IVP Q6H PRN PRN Reason: Anxiety Last Admin: 08/21/18 11:48 Dose: 1 mg Multivitamins (Hexavitamin) 1 tab PO DAILY [facility] Last Admin: 08/23/18 10:06 Dose: 1 tab Pantoprazole Sodium (Protonix Ec Tab) 40 mg PO DAILY [facility] Last Admin: 08/23/18 10:07 Dose: 40 mg Thiamine HCl (Vitamin B1 Tab) 100 mg PO DAILY [facility] Last Admin: 08/23/18 10:06 Dose: 100 mg - Labs Labs: 08/23/18 06:18 08/23/18 06:18 PT 13.0 SECONDS (9.7-12.2) H 08/20/18 23:19 INR 1.2 08/20/18 23:19 APTT 38 SECONDS (21-34) H 08/20/18 23:19 - Constitutional Appears: No Acute Distress, Chronically Ill - Eye Exam Eye Exam: PERRL - ENT Exam ENT Exam: Mucous Membranes Moist - Respiratory Exam Respiratory Exam: Clear to Ausculation Bilateral, NORMAL BREATHING PATTERN - Cardiovascular Exam Cardiovascular Exam: REGULAR RHYTHM, +S1, +S2 - GI/Abdominal Exam GI & Abdominal Exam: Soft, Normal Bowel Sounds - Extremities Exam Extremities Exam: Pedal Edema Additional comments: CELULITIS - Neurological Exam Neurological Exam: Alert, Awake, CN II-XII Intact, Normal Gait, Oriented x3 - Psychiatric Exam Psychiatric exam: Normal Affect, Normal Mood Assessment and Plan - Assessment and Plan (Free Text) Assessment: SAME. Plan: FOR IV ABT. PT.
[2018-08-23] MEDS: Oxycodone/Acetaminophen 5/325 mg Tab PO PRN (18:10)
[2018-08-24] MEDS: Piperacill/Tazo 3.375gm in Dex 3.375 GM/50 ML BAG IVPB SCH ×3 (05:06→21:49)
[2018-08-24 07:39] LABS: BASO % 0.7 % (0.0-2.0); EOS # 0.2 K/uL (0.0-0.7); EOS % 5.3 % (0.0-4.0); HEMOGLOBIN 11.9 g/dL (12.0-18.0); LYMPH # 0.7 K/uL (1.0-4.3); LYMPH % 22.8 % (20.0-40.0); MEAN CORPUSCULAR HEMOGLOBIN 35.7 pg (27.0-31.0); MEAN CORPUSCULAR HGB CONC 34.3 g/dL (33.0-37.0); MEAN PLATELET VOLUME 8.4 fL (7.2-11.7); MONO # 0.5 K/uL (0.0-0.8); MONO % 16.9 % (0.0-10.0); NEUT # 1.7 K/uL (1.8-7.0); NEUT % 54.3 % (50.0-75.0); NRBC % 0.2 % (0.0-2.0); RBC 3.34 Mil/uL (4.40-5.90); RED CELL DISTRIBUTION WIDTH 15.1 % (11.5-14.5); WHITE BLOOD COUNT 3.1 K/uL (4.8-10.8)
[2018-08-24 08:01] LABS: ALB/GLOB RATIO 0.9 (1.0-2.1); ALT/SGPT 82 U/L (21-72); AST/SGOT 255 U/L (17-59); BLOOD UREA NITROGEN 10 mg/dL (9-20); CALCIUM 9.5 mg/dl (8.6-10.4); GFR NON-AFRICAN AMERICAN > 60
[2018-08-24] MEDS: Enoxaparin 40 mg Syringe SC SCH (09:33)
[2018-08-24] MEDS: Pantoprazole 40 mg EC Tab PO SCH (09:33)
[2018-08-24] MEDS: Multiple Vitamins Tab PO SCH (09:33)
[2018-08-24] MEDS: Vancomycin 1 gm/NS 200 ml 1 GM/200 ML BAG IVPB SCH (09:33)
[2018-08-24] MEDS: Oxycodone/Acetaminophen 5/325 mg Tab PO PRN (15:10)
--- NOTE | 2018-08-24 17:50 | CP.PCM.PN ---
Subjective - Date & Time of Evaluation Date of Evaluation: 08/24/18 Time of Evaluation: 17:48 - Subjective Subjective: CONDITION SAME. CELLULITIS PRESENT. NO FEVER. Objective - Vital Signs/Intake and Output Vital Signs (last 24 hours): Temp Pulse Resp BP Pulse Ox 97.9 F 76 20 141/92 H 98 08/24/18 15:00 08/24/18 15:00 08/24/18 15:00 08/24/18 15:00 08/24/18 15:00 Intake and Output: 08/24/18 08/24/18 06:59 18:59 Intake Total 1300 Balance 1300 - Medications Medications: Current Medications Enoxaparin Sodium (Lovenox) 40 mg SC DAILY [facility] Last Admin: 08/24/18 09:33 Dose: 40 mg Folic Acid (Folic Acid) 1 mg PO DAILY [facility] Last Admin: 08/24/18 09:33 Dose: 1 mg Piperacillin Sod/Tazobactam Sod (Zosyn 3.375 Gm Iv Premix) 3.375 gm in 50 mls @ 100 mls/hr IVPB Q8 [facility]; Protocol Last Admin: 08/24/18 13:55 Dose: 100 mls/hr Vancomycin/Sodium Chloride (Vancomycin 1 Gm/Ns 200 Ml) 1 gm in 200 mls @ 133.333 mls/hr IVPB Q24H [facility]; Protocol Stop: 08/26/18 10:01 Last Admin: 08/24/18 09:33 Dose: 133.333 mls/hr Levetiracetam (Keppra) 750 mg PO TID [facility] Last Admin: 08/24/18 13:55 Dose: 750 mg Lorazepam (Ativan) 1 mg IVP Q6H PRN PRN Reason: Anxiety Last Admin: 08/21/18 11:48 Dose: 1 mg Multivitamins (Hexavitamin) 1 tab PO DAILY [facility] Last Admin: 08/24/18 09:33 Dose: 1 tab Oxycodone/Acetaminophen (Percocet 5/325 Mg Tab) 1 tab PO Q6H PRN PRN Reason: Pain, moderate (4-7) Stop: 08/26/18 16:04 Last Admin: 08/24/18 15:10 Dose: 1 tab Pantoprazole Sodium (Protonix Ec Tab) 40 mg PO DAILY [facility] Last Admin: 08/24/18 09:33 Dose: 40 mg Thiamine HCl (Vitamin B1 Tab) 100 mg PO DAILY [facility] Last Admin: 08/24/18 09:33 Dose: 100 mg - Labs Labs: 08/24/18 07:28 08/24/18 07:28 PT 13.0 SECONDS (9.7-12.2) H 08/20/18 23:19 INR 1.2 08/20/18 23:19 APTT 38 SECONDS (21-34) H 08/20/18 23:19 - Constitutional Appears: No Acute Distress, Chronically Ill - Eye Exam Eye Exam: Normal appearance, PERRL - ENT Exam ENT Exam: Mucous Membranes Moist - Respiratory Exam Respiratory Exam: Clear to Ausculation Bilateral, NORMAL BREATHING PATTERN - Cardiovascular Exam Cardiovascular Exam: REGULAR RHYTHM, +S1, +S2 - GI/Abdominal Exam GI & Abdominal Exam: Soft, Normal Bowel Sounds - Extremities Exam Extremities Exam: Full ROM, Normal Capillary Refill, Normal Inspection. absent: Joint Swelling, Pedal Edema - Neurological Exam Neurological Exam: Alert, Awake, CN II-XII Intact, Normal Gait, Oriented x3 - Psychiatric Exam Psychiatric exam: Normal Affect, Normal Mood Assessment and Plan - Assessment and Plan (Free Text) Assessment: SAME. Plan: CT PRESENT TREATMENT.
[2018-08-25] MEDS: Oxycodone/Acetaminophen 5/325 mg Tab PO PRN ×2 (00:20→15:07)
[2018-08-25] MEDS: Piperacill/Tazo 3.375gm in Dex 3.375 GM/50 ML BAG IVPB SCH ×3 (05:40→21:08)
[2018-08-25] MEDS: Multiple Vitamins Tab PO SCH (09:46)
[2018-08-25] MEDS: Enoxaparin 40 mg Syringe SC SCH (09:47)
[2018-08-25] MEDS: Pantoprazole 40 mg EC Tab PO SCH (09:48)
[2018-08-25] MEDS: Vancomycin 1 gm/NS 200 ml 1 GM/200 ML BAG IVPB SCH (09:48)
--- NOTE | 2018-08-25 11:43 | CP.PCM.PN ---
Subjective - Date & Time of Evaluation Date of Evaluation: 08/25/18 Time of Evaluation: 11:41 - Subjective Subjective: CONDITION SAME. CELLULITIS RT LEG IMPROVING. Objective - Vital Signs/Intake and Output Vital Signs (last 24 hours): Temp Pulse Resp BP Pulse Ox 97.2 F L 78 20 122/81 98 08/25/18 07:32 08/25/18 07:32 08/25/18 07:32 08/25/18 07:32 08/25/18 07:32 - Medications Medications: Current Medications Enoxaparin Sodium (Lovenox) 40 mg SC DAILY [facility] Last Admin: 08/25/18 09:47 Dose: 40 mg Folic Acid (Folic Acid) 1 mg PO DAILY [facility] Last Admin: 08/25/18 09:47 Dose: 1 mg Piperacillin Sod/Tazobactam Sod (Zosyn 3.375 Gm Iv Premix) 3.375 gm in 50 mls @ 100 mls/hr IVPB Q8 [facility]; Protocol Last Admin: 08/25/18 05:40 Dose: 100 mls/hr Vancomycin/Sodium Chloride (Vancomycin 1 Gm/Ns 200 Ml) 1 gm in 200 mls @ 133.3 33 mls/hr IVPB Q24H [facility]; Protocol Stop: 08/26/18 10:01 Last Admin: 08/25/18 09:48 Dose: 133.333 mls/hr Levetiracetam (Keppra) 750 mg PO TID [facility] Last Admin: 08/25/18 09:46 Dose: 750 mg Lorazepam (Ativan) 1 mg IVP Q6H PRN PRN Reason: Anxiety Last Admin: 08/21/18 11:48 Dose: 1 mg Multivitamins (Hexavitamin) 1 tab PO DAILY [facility] Last Admin: 08/25/18 09:46 Dose: 1 tab Oxycodone/Acetaminophen (Percocet 5/325 Mg Tab) 1 tab PO Q6H PRN PRN Reason: Pain, moderate (4-7) Stop: 08/26/18 16:04 Last Admin: 08/25/18 00:20 Dose: 1 tab Pantoprazole Sodium (Protonix Ec Tab) 40 mg PO DAILY [facility] Last Admin: 08/25/18 09:48 Dose: 40 mg Thiamine HCl (Vitamin B1 Tab) 100 mg PO DAILY [facility] Last Admin: 08/25/18 09:47 Dose: 100 mg - Labs Labs: 08/24/18 07:28 08/24/18 07:28 PT 13.0 SECONDS (9.7-12.2) H 08/20/18 23:19 INR 1.2 08/20/18 23:19 APTT 38 SECONDS (21-34) H 08/20/18 23:19 - Constitutional Appears: No Acute Distress, Chronically Ill - Eye Exam Eye Exam: Normal appearance, PERRL - ENT Exam ENT Exam: Mucous Membranes Moist - Respiratory Exam Respiratory Exam: Clear to Ausculation Bilateral, NORMAL BREATHING PATTERN - Cardiovascular Exam Cardiovascular Exam: REGULAR RHYTHM, +S1, +S2 - GI/Abdominal Exam GI & Abdominal Exam: Soft, Normal Bowel Sounds - Extremities Exam Extremities Exam: Full ROM, Normal Capillary Refill, Normal Inspection. absent: Joint Swelling, Pedal Edema - Back Exam Back Exam: NORMAL INSPECTION - Neurological Exam Neurological Exam: Alert, Awake, CN II-XII Intact, Normal Gait, Oriented x3 Assessment and Plan - Assessment and Plan (Free Text) Assessment: SAME. Plan: PER ID.
[2018-08-26] MEDS: Piperacill/Tazo 3.375gm in Dex 3.375 GM/50 ML BAG IVPB SCH ×3 (05:22→21:41)
[2018-08-26 07:47] LABS: BASO % 0.8 % (0.0-2.0); EOS # 0.2 K/uL (0.0-0.7); EOS % 4.7 % (0.0-4.0); HEMOGLOBIN 11.6 g/dL (12.0-18.0); LYMPH # 0.8 K/uL (1.0-4.3); LYMPH % 23.9 % (20.0-40.0); MEAN CELL VOLUME 103.1 fL (80.0-94.0); MEAN CORPUSCULAR HEMOGLOBIN 35.6 pg (27.0-31.0); MEAN CORPUSCULAR HGB CONC 34.5 g/dL (33.0-37.0); MEAN PLATELET VOLUME 8.4 fL (7.2-11.7); MONO # 0.8 K/uL (0.0-0.8); MONO % 24.8 % (0.0-10.0); NEUT # 1.5 K/uL (1.8-7.0); NEUT % 45.8 % (50.0-75.0); NRBC % 0.2 % (0.0-2.0); PLATELET COUNT 94 K/uL (130-400); RBC 3.26 Mil/uL (4.40-5.90); RED CELL DISTRIBUTION WIDTH 15.2 % (11.5-14.5); WHITE BLOOD COUNT 3.4 K/uL (4.8-10.8)
[2018-08-26 08:34] LABS: ALB/GLOB RATIO 0.9 (1.0-2.1); ALBUMIN 3.9 g/dL (3.5-5.0); ALT/SGPT 50 U/L (21-72); AST/SGOT 109 U/L (17-59); BLOOD UREA NITROGEN 12 mg/dL (9-20); CALCIUM 9.5 mg/dl (8.6-10.4); GFR NON-AFRICAN AMERICAN > 60
[2018-08-26 08:39] LABS: EOSINOPHIL 4 % (0-4); NEUTROPHIL 51 % (50-75); TOTAL CELLS COUNTED 100
[2018-08-26 08:40] LABS: LYMPHOCYTE 20 % (20-40); MONOCYTE 25 % (0-10); PLATELET ESTIMATE DECREASED (NORMAL)
[2018-08-26 08:41] LABS: ANISOCYTOSIS SLIGHT; HYPOCHROMIC SLIGHT; POIKILOCYTOSIS SLIGHT
[2018-08-26] MEDS: Multiple Vitamins Tab PO SCH (10:15)
[2018-08-26] MEDS: Enoxaparin 40 mg Syringe SC SCH (10:15)
[2018-08-26] MEDS: Pantoprazole 40 mg EC Tab PO SCH (10:15)
[2018-08-26] MEDS: Vancomycin 1 gm/NS 200 ml 1 GM/200 ML BAG IVPB SCH (10:16)
--- NOTE | 2018-08-26 12:26 | CP.PCM.PN ---
Subjective - Date & Time of Evaluation Date of Evaluation: 08/26/18 Time of Evaluation: 12:25 - Subjective Subjective: CONDITION SAME. Objective - Vital Signs/Intake and Output Vital Signs (last 24 hours): Temp Pulse Resp BP Pulse Ox 98.1 F 70 20 145/88 97 08/26/18 07:15 08/26/18 07:15 08/26/18 07:15 08/26/18 07:15 08/26/18 07:15 - Medications Medications: Current Medications Enoxaparin Sodium (Lovenox) 40 mg SC DAILY [facility] Last Admin: 08/26/18 10:15 Dose: 40 mg Folic Acid (Folic Acid) 1 mg PO DAILY [facility] Last Admin: 08/26/18 10:15 Dose: 1 mg Piperacillin Sod/Tazobactam Sod (Zosyn 3.375 Gm Iv Premix) 3.375 gm in 50 mls @ 100 mls/hr IVPB Q8 [facility]; Protocol Last Admin: 08/26/18 05:22 Dose: 100 mls/hr Levetiracetam (Keppra) 750 mg PO TID [facility] Last Admin: 08/26/18 10:15 Dose: 750 mg Lorazepam (Ativan) 1 mg IVP Q6H PRN PRN Reason: Anxiety Last Admin: 08/21/18 11:48 Dose: 1 mg Multivitamins (Hexavitamin) 1 tab PO DAILY [facility] Last Admin: 08/26/18 10:15 Dose: 1 tab Oxycodone/Acetaminophen (Percocet 5/325 Mg Tab) 1 tab PO Q6H PRN PRN Reason: Pain, moderate (4-7) Stop: 08/26/18 16:04 Last Admin: 08/25/18 15:07 Dose: 1 tab Pantoprazole Sodium (Protonix Ec Tab) 40 mg PO DAILY [facility] Last Admin: 08/26/18 10:15 Dose: 40 mg Thiamine HCl (Vitamin B1 Tab) 100 mg PO DAILY [facility] Last Admin: 08/26/18 10:15 Dose: 100 mg - Labs Labs: 08/26/18 07:41 08/26/18 07:41 PT 13.0 SECONDS (9.7-12.2) H 08/20/18 23:19 INR 1.2 08/20/18 23:19 APTT 38 SECONDS (21-34) H 08/20/18 23:19 - Constitutional Appears: No Acute Distress, Chronically Ill - Eye Exam Eye Exam: Normal appearance, PERRL - ENT Exam ENT Exam: Mucous Membranes Moist - Respiratory Exam Respiratory Exam: Clear to Ausculation Bilateral, NORMAL BREATHING PATTERN - Cardiovascular Exam Cardiovascular Exam: REGULAR RHYTHM, +S1, +S2 - GI/Abdominal Exam GI & Abdominal Exam: Soft, Normal Bowel Sounds - Extremities Exam Extremities Exam: Full ROM, Normal Capillary Refill, Normal Inspection. absent: Joint Swelling, Pedal Edema - Back Exam Back Exam: NORMAL INSPECTION - Psychiatric Exam Psychiatric exam: Normal Affect, Normal Mood Assessment and Plan - Assessment and Plan (Free Text) Assessment: CELLULITIS RT FOOT. Plan: CT PRESENT TREATMENT.
[2018-08-26] MEDS ORDERED: Piperacill/Tazo 3.375gm in Dex 3.375 GM/50 ML BAG IVPB SCH (18:30)
[2018-08-26] MEDS: Oxycodone/Acetaminophen 5/325 mg Tab PO PRN (19:22)
[2018-08-27] MEDS: Piperacill/Tazo 3.375gm in Dex 3.375 GM/50 ML BAG IVPB SCH ×3 (05:39→21:07)
[2018-08-27] MEDS: Oxycodone/Acetaminophen 5/325 mg Tab PO PRN ×2 (05:39→17:54)
[2018-08-27] MEDS: Vancomycin 1 gm/NS 200 ml 1 GM/200 ML BAG IVPB SCH (09:16)
[2018-08-27] MEDS: Multiple Vitamins Tab PO SCH (09:17)
[2018-08-27] MEDS: Pantoprazole 40 mg EC Tab PO SCH (09:17)
[2018-08-27] MEDS: Enoxaparin 40 mg Syringe SC SCH (09:17)
--- NOTE | 2018-08-27 11:43 | CP.PCM.PN ---
Subjective - Date & Time of Evaluation Date of Evaluation: 08/27/18 Time of Evaluation: 11:40 - Subjective Subjective: CONDITION SAME. CELLULITIS. S/P ETOH. Objective - Vital Signs/Intake and Output Vital Signs (last 24 hours): Temp Pulse Resp BP Pulse Ox 97.3 F L 72 20 138/92 H 95 08/27/18 08:00 08/27/18 08:00 08/27/18 08:00 08/27/18 08:00 08/27/18 08:00 Intake and Output: 08/27/18 08/27/18 06:59 18:59 Intake Total 1200 Output Total 600 Balance 600 - Medications Medications: Current Medications Enoxaparin Sodium (Lovenox) 40 mg SC DAILY [facility] Last Admin: 08/27/18 09:17 Dose: 40 mg Folic Acid (Folic Acid) 1 mg PO DAILY [facility] Last Admin: 08/27/18 09:17 Dose: 1 mg Vancomycin/Sodium Chloride (Vancomycin 1 Gm/Ns 200 Ml) 1 gm in 200 mls @ 133.333 mls/hr IVPB DAILY [facility]; Protocol Stop: 09/01/18 10:01 Last Admin: 08/27/18 09:16 Dose: 133.333 mls/hr Piperacillin Sod/Tazobactam Sod (Zosyn 3.375 Gm Iv Premix) 3.375 gm in 50 mls @ 100 mls/hr IVPB Q8H [facility]; Protocol Last Admin: 08/27/18 05:39 Dose: 100 mls/hr Levetiracetam (Keppra) 750 mg PO TID [facility] Last Admin: 08/27/18 09:17 Dose: 750 mg Lorazepam (Ativan) 1 mg IVP Q6H PRN PRN Reason: Anxiety Last Admin: 08/21/18 11:48 Dose: 1 mg Multivitamins (Hexavitamin) 1 tab PO DAILY [facility] Last Admin: 08/27/18 09:17 Dose: 1 tab Oxycodone/Acetaminophen (Percocet 5/325 Mg Tab) 1 tab PO Q6H PRN PRN Reason: Pain, severe (8-10) Stop: 08/29/18 18:14 Last Admin: 08/27/18 05:39 Dose: 1 tab Pantoprazole Sodium (Protonix Ec Tab) 40 mg PO DAILY [facility] Last Admin: 08/27/18 09:17 Dose: 40 mg Thiamine HCl (Vitamin B1 Tab) 100 mg PO DAILY [facility] Last Admin: 08/27/18 09:17 Dose: 100 mg - Labs Labs: 08/26/18 07:41 08/26/18 07:41 PT 13.0 SECONDS (9.7-12.2) H 08/20/18 23:19 INR 1.2 08/20/18 23:19 APTT 38 SECONDS (21-34) H 08/20/18 23:19 - Constitutional Appears: No Acute Distress, Chronically Ill - Eye Exam Eye Exam: Normal appearance, PERRL - ENT Exam ENT Exam: Mucous Membranes Moist - Respiratory Exam Respiratory Exam: Clear to Ausculation Bilateral, Wheezes - Cardiovascular Exam Cardiovascular Exam: REGULAR RHYTHM, +S1, +S2 - GI/Abdominal Exam GI & Abdominal Exam: Soft, Normal Bowel Sounds Assessment and Plan - Assessment and Plan (Free Text) Assessment: SAME. Plan: PER ID.
[2018-08-27 16:43] VITALS: PULSE 78
[2018-08-28] MEDS: Oxycodone/Acetaminophen 5/325 mg Tab PO PRN ×2 (00:30→10:06)
[2018-08-28] MEDS: Piperacill/Tazo 3.375gm in Dex 3.375 GM/50 ML BAG IVPB SCH ×2 (05:24→14:32)
[2018-08-28 07:53] VITALS: BP 130/76; TEMP 97.5; O2SAT 99
[2018-08-28] MEDS: Enoxaparin 40 mg Syringe SC SCH (09:49)
[2018-08-28] MEDS: Multiple Vitamins Tab PO SCH (09:49)
[2018-08-28] MEDS: Pantoprazole 40 mg EC Tab PO SCH (09:49)
[2018-08-28] MEDS: Vancomycin 1 gm/NS 200 ml 1 GM/200 ML BAG IVPB SCH (09:52)
--- NOTE | 2018-08-28 12:15 | CP.PCM.PN ---
Subjective - Date & Time of Evaluation Date of Evaluation: 08/28/18 Time of Evaluation: 12:15 - Subjective Subjective: PATIENT SEEN AND EXAMINED AT THE BEDSIDE Objective - Vital Signs/Intake and Output Vital Signs (last 24 hours): Temp Pulse Resp BP Pulse Ox 97.5 F L 78 20 130/76 99 08/28/18 07:05 08/28/18 07:05 08/28/18 07:05 08/28/18 07:05 08/28/18 07:05 Intake and Output: 08/28/18 08/28/18 06:59 18:59 Intake Total 450 Output Total 400 Balance 50 - Medications Medications: Current Medications Folic Acid (Folic Acid) 1 mg PO DAILY [facility] Last Admin: 08/28/18 09:49 Dose: 1 mg Vancomycin/Sodium Chloride (Vancomycin 1 Gm/Ns 200 Ml) 1 gm in 200 mls @ 133.333 mls/hr IVPB DAILY [facility]; Protocol Stop: 09/01/18 10:01 Last Admin: 08/28/18 09:52 Dose: 133.333 mls/hr Piperacillin Sod/Tazobactam Sod (Zosyn 3.375 Gm Iv Premix) 3.375 gm in 50 mls @ 100 mls/hr IVPB Q8H [facility]; Protocol Last Admin: 08/28/18 05:24 Dose: 100 mls/hr Levetiracetam (Keppra) 750 mg PO TID [facility] Last Admin: 08/28/18 09:51 Dose: 750 mg Lorazepam (Ativan) 1 mg IVP Q6H PRN PRN Reason: Anxiety Last Admin: 08/21/18 11:48 Dose: 1 mg Multivitamins (Hexavitamin) 1 tab PO DAILY [facility] Last Admin: 08/28/18 09:49 Dose: 1 tab Oxycodone/Acetaminophen (Percocet 5/325 Mg Tab) 1 tab PO Q6H PRN PRN Reason: Pain, severe (8-10) Stop: 08/29/18 18:14 Last Admin: 08/28/18 10:06 Dose: 1 tab Pantoprazole Sodium (Protonix Ec Tab) 40 mg PO DAILY [facility] Last Admin: 08/28/18 09:49 Dose: 40 mg Thiamine HCl (Vitamin B1 Tab) 100 mg PO DAILY [facility] Last Admin: 08/28/18 09:49 Dose: 100 mg - Labs Labs: 08/26/18 07:41 08/26/18 07:41 PT 13.0 SECONDS (9.7-12.2) H 08/20/18 23:19 INR 1.2 08/20/18 23:19 APTT 38 SECONDS (21-34) H 08/20/18 23:19 Assessment and Plan - Assessment and Plan (Free Text) Assessment: FOLLOW UP WITH Caio RIVAS IN 1-2 WEEK ----CALL FOR APPOINTMENT FOLLOW UP WITH DR HUGHES IN HIS OFFICE ---CALL FOR APPOINTMENT CONTINUE HOME MEDICATION NEW PRESCRIPTION GIVEN KEFLEX 500 MG PO EVERY 12 HOURS BY MOUTH FOR 5 DAYS FORASTOR ONE TAB BY MOUTH DAILY FOR 5 DAYS WOUND CARE INSTRUCTION GIVEN apply skin prep to blisters and cover with dry dressing daily as a protective measure ACTIVITY TOLERATED CALL DR Caio RIVAS OR GO TO THE EMERGENCY ROOM IF SYMPTOM RETURN OR WORSENING
== END 2018-08-28 15:48 | disposition home or self-care (01) | DRG 278 ==
LOC: C.ER 20:30 → C.9E 08-21 01:26 → C.5S 08-21 02:48
PROVIDERS: ADMIT Internal Medicine; ATTEND Internal Medicine
DX: L03.115 Cellulitis of right lower limb (principal); I10 Essential (primary) hypertension; F10.220 Alcohol dependence with intoxication, uncomplicated; Y90.8 Blood alcohol level of 240 mg/100 ml or more; R79.1 Abnormal coagulation profile; E11.9 Type 2 diabetes mellitus without complications; I25.10 Atherosclerotic heart disease of native coronary artery without angina pectoris; M06.9 Rheumatoid arthritis, unspecified; Z90.49 Acquired absence of other specified parts of digestive tract; Z91.19 Patient's noncompliance with other medical treatment and regimen; S80.821A Blister (nonthermal), right lower leg, initial encounter

== ENCOUNTER 2018-08-28 20:46 | Emergency (ER) | payer MEDICAID ==
[2018-08-28 20:47] VITALS: BMI 31.4
[2018-08-28 20:59] VITALS: BP 102/60
--- NOTE | 2018-08-28 21:15 | C.PDOC ---
History Of Present Illness 57 y/o male brought in by ambulance for public intoxication. Of note patient was admitted from 08/02-08/28 for cellulitis of the right leg, and discharged home today. He denies any fevers, chills, new pain/swelling, or recent fall/trauma. As per EMS, a friend took his wheelchair at the scene in order to keep it safe. Time Seen by Provider: 08/28/18 21:00 Chief Complaint (Nursing): Substance Abuse History Per: Patient History/Exam Limitations: no limitations Onset/Duration Of Symptoms: Hrs Current Symptoms Are (Timing): Still Present Modifying Factor(s): Alcohol Past Medical History Reviewed: Historical Data, Nursing Documentation, Vital Signs Vital Signs: Last Vital Signs Temp 97.8 F 08/28/18 20:59 Pulse 90 08/28/18 20:59 Resp 16 08/28/18 20:59 BP 102/60 08/28/18 20:59 Pulse Ox 98 08/28/18 20:59 - Medical History PMH: Anxiety, Arthritis, Bronchitis, CAD, Depression, Diabetes (Pt. did not disclose to marketing copywriter, not aware), Fractures (RIGHT ARM), Gastritis, Gall Bladder Disease (s/p cholecystectomy), HTN, Post Traumatic Stress Disorder, Rheumatoid Arthritis, Seizures, Chronic Pain Denies: Chronic Kidney Disease Surgical History: Cholecystectomy - [facility] Procedures ALCOHOL DETOXIFICATION (07/04/15) APPLICATION OF SPLINT (03/20/13) CLOSURE SKIN & SUBCUTANEOUS NEC (08/14/13) DETOXIFICATION SERVICES FOR SUBSTANCE ABUSE TREATMENT (03/22/16) ESOPHAGOGASTRODUODENOSCOPY [EGD] W/CLOSED BIOPSY (02/16/15) OTHER GROUP THERAPY (03/12/13) PHYSICAL THERAPY NEC (07/04/15) TETANUS TOXOID ADMINIST (01/19/14) Family History: States: Unknown Family Hx - Social History Hx Tobacco Use: No Hx Alcohol Use: Yes (vodka) Hx Substance Use: No - Immunization History Hx Tetanus Toxoid Vaccination: No Hx Influenza Vaccination: Yes Hx Pneumococcal Vaccination: Yes Review Of Systems Constitutional: Negative for: Fever, Chills Cardiovascular: Negative for: Chest Pain Respiratory: Negative for: Shortness of Breath Gastrointestinal: Negative for: Nausea, Vomiting Musculoskeletal: Positive for: Leg Pain (+ wounds) Neurological: Negative for: Weakness, Numbness Physical Exam - Physical Exam Appears: Non-toxic, No Acute Distress Skin: Warm, Dry Head: Atraumatic, Normacephalic Eye(s): bilateral: Normal Inspection, PERRL, EOMI Oral Mucosa: Moist Neck: Normal ROM Chest: Symmetrical Cardiovascular: Rhythm Regular, No Murmur Respiratory: Normal Breath Sounds, No Rales, No Rhonchi, No Wheezing Gastrointestinal/Abdominal: Soft, No Tenderness Extremity: Other (Bandaged wound to right lower leg) Extremity: Bilateral: Atraumatic Neurological/Psych: Normal Speech, Other (Intoxicated, alcohol on breath, respo nsive to questions) ED Course And Treatment O2 Sat by Pulse Oximetry: 98 (RA) Pulse Ox Interpretation: Normal Medical Decision Making Medical Decision Making: Plan: No acute complaints offered. Vital signs stable. Patient was just discharged home earlier today. Will monitor in the ED and d/c home when clinically sober. 2119: pt arose from [facility], demanded to be d/c immediatly and walked to Security without assistance. Disposition Doctor Will See Patient In The: Office Counseled Patient/Family Regarding: Studies Performed, Diagnosis - Disposition Disposition: HOME/ ROUTINE Disposition Time: 21:29 Condition: GOOD Forms: [employer] (Yoruba) - Clinical Impression Clinical Impression: Homeless single person, H/O alcohol abuse - Scribe Statement The provider has reviewed the documentation as recorded by the Jada Gunter Provider Attestation: All medical record entries made by the Rominaibjosé miguel were at my direction and personally dictated by me. I have reviewed the chart and agree that the record accurately reflects my personal performance of the history, physical exam, medical decision making, and the department course for this patient. I have also personally directed, reviewed, and agree with the discharge instructions and disposition.
[2018-08-28 22:12] VITALS: PULSE 82; RESP 20; TEMP 98; O2SAT 97
== END 2018-08-28 22:10 | disposition home or self-care (01) ==
LOC: C.ER 20:46
DX: F10.10 Alcohol abuse, uncomplicated (principal); Z59.0 Homelessness; E11.9 Type 2 diabetes mellitus without complications; I25.10 Atherosclerotic heart disease of native coronary artery without angina pectoris

== ENCOUNTER 2018-08-29 15:58 | Emergency (ER) | payer MEDICAID ==
[2018-08-29 15:59] VITALS: BMI 31.4
[2018-08-29 16:16] VITALS: RESP 19; O2SAT 96
--- NOTE | 2018-08-29 17:14 | C.PDOC ---
History Of Present Illness Patient presents to ED c/o right leg pain as per triage. History is limited due to clinical condition. Time Seen by Provider: 08/29/18 16:18 Chief Complaint (Nursing): Lower Extremity Problem/Injury History Per: Patient History/Exam Limitations: clinical condition Past Medical History Reviewed: Historical Data, Nursing Documentation, Vital Signs Vital Signs: Last Vital Signs Temp 98.4 F 08/29/18 16:14 Pulse 93 H 08/29/18 16:14 Resp 19 08/29/18 16:14 BP 111/75 08/29/18 16:14 Pulse Ox 96 08/29/18 16:14 - Medical History PMH: Anxiety, Arthritis, Bronchitis, CAD, Depression, Diabetes (Pt. did not disclose to field underwriter, not aware), Fractures (RIGHT ARM), Gastritis, Gall Bladder Disease (s/p cholecystectomy), HTN, Post Traumatic Stress Disorder, Rheumatoid Arthritis, Seizures, Chronic Pain Denies: Chronic Kidney Disease Surgical History: Cholecystectomy - [facility] Procedures ALCOHOL DETOXIFICATION (07/04/15) APPLICATION OF SPLINT (03/20/13) CLOSURE SKIN & SUBCUTANEOUS NEC (08/14/13) DETOXIFICATION SERVICES FOR SUBSTANCE ABUSE TREATMENT (03/22/16) ESOPHAGOGASTRODUODENOSCOPY [EGD] W/CLOSED BIOPSY (02/16/15) OTHER GROUP THERAPY (03/12/13) PHYSICAL THERAPY NEC (07/04/15) TETANUS TOXOID ADMINIST (01/19/14) Family History: States: Unknown Family Hx - Social History Hx Tobacco Use: No Hx Alcohol Use: Yes Hx Substance Use: No - Immunization History Hx Tetanus Toxoid Vaccination: No Hx Influenza Vaccination: Yes Hx Pneumococcal Vaccination: Yes Review Of Systems Review Of Systems: ROS cannot be obtained secondary to pt's inabilty to answer questions. Physical Exam - Physical Exam Appears: Non-toxic, Unkempt, Other (drowsy, arousable to verbal stimuli but will not answer questions) Skin: Warm, Dry, Other (see extremity exam) Head: Atraumatic, Normacephalic Eye(s): bilateral: Normal Inspection, PERRL, EOMI Oral Mucosa: Moist, Other (dry chapped lips) Neck: Other (gauze dressing left neck (? from recent IV)) Cardiovascular: Rhythm Regular Respiratory: Normal Breath Sounds, No Rales, No Rhonchi, No Wheezing Gastrointestinal/Abdominal: Normal Exam, Bowel Sounds, Soft, No Tenderness Extremity: Other (B/L legs cool to the touch, skin on lower legs pruney, scattered popped blisters B/K) Pulses: Left Dorsalis Pedis: Normal, Right Dorsalis Pedis: Normal Neurological/Psych: Other (arousable to verbal stimuli, moving all 4 extremities spontaneously) ED Course And Treatment O2 Sat by Pulse Oximetry: 96 (RA) Pulse Ox Interpretation: Normal - Other Rad right tib/fib Xray X-Ray: Interpreted by Me (fractures/dislocations) Progress Note: Patient drowsy appearing and not answering questions - appears unkempt but does not smell of ETOH. Blood work, CT head, EKG, UA, UDS ordered. Disposition - Disposition Disposition Time: 18:00 Condition: STABLE Forms: [facility] (Pashto) - Clinical Impression Clinical Impression: Drowsy Physician Patient Turnover Patient Signed Over To: Angela Bass Handoff Comments: pending labs, ct head, UA, UDS
[2018-08-29 18:28] LABS: BASO # 0.1 K/uL (0.0-0.2); BASO % 0.9 % (0.0-2.0); EOS # 0.1 K/uL (0.0-0.7); EOS % 2.2 % (0.0-4.0); HEMOGLOBIN 12.4 g/dL (12.0-18.0); LYMPH # 1.7 K/uL (1.0-4.3); LYMPH % 28.1 % (20.0-40.0); MEAN CELL VOLUME 102.4 fL (80.0-94.0); MEAN CORPUSCULAR HEMOGLOBIN 34.9 pg (27.0-31.0); MEAN CORPUSCULAR HGB CONC 34.1 g/dL (33.0-37.0); MEAN PLATELET VOLUME 8.5 fL (7.2-11.7); MONO # 0.9 K/uL (0.0-0.8); MONO % 14.6 % (0.0-10.0); NEUT # 3.3 K/uL (1.8-7.0); NEUT % 54.2 % (50.0-75.0); NRBC % 0.1 % (0.0-2.0); RBC 3.56 Mil/uL (4.40-5.90); RED CELL DISTRIBUTION WIDTH 14.9 % (11.5-14.5); WHITE BLOOD COUNT 6.1 K/uL (4.8-10.8)
--- NOTE | 2018-08-29 18:30 | CT ---
Date of service: 08/29/2018 PROCEDURE: CT HEAD WITHOUT CONTRAST. HISTORY: AMS COMPARISON: Comparison made with prior CT scan brain 08/10/2018. TECHNIQUE: Axial computed tomography images were obtained through the head/brain without intravenous contrast. Radiation dose: The Total exam DLP = 2243.61 mGy-cm. This CT exam was performed using one or more of the following dose reduction techniques: Automated exposure control, adjustment of the mA and/or kV according to patient size, and/or use of iterative reconstruction technique. FINDINGS: HEMORRHAGE: No acute parenchymal, subarachnoid or extra-axial hemorrhage. BRAIN: Suspect minor chronic periventricular white matter ischemic changes. Few scattered chronic bilateral basal nuclei lacunar type infarcts also suspected. No obvious parenchymal nor extra-axial mass or collection seen on this noncontrast exam. Moderate to fairly significant atrophy.. VENTRICLES: .No obstructive hydrocephalus. CALVARIUM: The there are no acute calvarial fractures. PARANASAL SINUSES: Unremarkable as visualized. No significant inflammatory changes. MASTOID AIR CELLS: Unremarkable as visualized. No inflammatory changes. OTHER FINDINGS: None. IMPRESSION: Limited motion degraded study. No acute intracranial hemorrhage. Minimal chronic periventricular white matter ischemic changes with suspected few scattered chronic bilateral basal nuclei lacunar type infarcts. Moderate to fairly significant atrophy.
[2018-08-29 18:45] LABS: ALB/GLOB RATIO 0.9 (1.0-2.1); ALBUMIN 4.3 g/dL (3.5-5.0); ALT/SGPT 39 U/L (21-72); AST/SGOT 82 U/L (17-59); BLOOD UREA NITROGEN 17 mg/dL (9-20); CALCIUM 9.4 mg/dl (8.6-10.4); GFR NON-AFRICAN AMERICAN > 60
--- NOTE | 2018-08-29 18:54 | RAD ---
Date of service: 08/29/2018 PROCEDURE: Radiographs of the right tibia and fibula. HISTORY: RIGHT LEG PAIN COMPARISON: None available TECHNIQUE: Frontal and lateral views obtained. FINDINGS: BONES: No evidence of acute displaced fracture nor dislocation. The osseous structures appear intact. No cortical destructive changes. There appears to be mild infiltration within the medial soft tissues (extending from mid calf level inferiorly) possibly representing cellulitis. Clinical correlation recommended. Few small calcific density within the medial soft tissues probably represent calcified phleboliths. JOINT SPACES: Unremarkable. OTHER FINDINGS: None. IMPRESSION: No acute fractures. Questionable cellulitis medial soft tissues as detailed above
[2018-08-29 20:51] VITALS: BP 128/90; PULSE 96; TEMP 98.3
== END 2018-08-29 21:55 | disposition home or self-care (01) ==
LOC: C.ER 15:58
DX: R40.0 Somnolence (principal)

== ENCOUNTER 2018-08-30 18:14 | Emergency (ER) | payer MEDICAID ==
[2018-08-30 18:14] VITALS: BMI 31.4
[2018-08-30 18:33] VITALS: BP 118/74; PULSE 98; RESP 16; TEMP 97.9; O2SAT 97
--- NOTE | 2018-08-30 19:07 | C.PDOC ---
History Of Present Illness 57 year old male is brought in to the ED by EMS for alcohol intoxication. Patient was seen yesterday and there are no significant changes except mildly intoxication. Patient denies SI/HI, hallucinations, CP, SOB, fever, injury, fall, trauma. Time Seen by Provider: 08/30/18 19:06 Chief Complaint (Nursing): Substance Abuse History Per: Patient, EMS History/Exam Limitations: intoxication Onset/Duration Of Symptoms: Days Current Symptoms Are (Timing): Still Present Suicide/Self Injury Attempted (Context): None Modifying Factor(s): Alcohol Associated Symptoms: denies: Depression, Suicidal Thoughts, Suicidal Plan Recent travel outside of the [place]: No Additional History Per: Patient, EMS Past Medical History Reviewed: Historical Data, Nursing Documentation, Vital Signs Vital Signs: Last Vital Signs Temp 97.9 F 08/30/18 18:32 Pulse 98 H 08/30/18 18:32 Resp 16 08/30/18 18:32 BP 118/74 08/30/18 18:32 Pulse Ox 97 08/30/18 18:32 - Medical History PMH: Anxiety, Arthritis, Bronchitis, CAD, Depression, Diabetes (Pt. did not disclose to medical technical writer, not aware), Fractures (RIGHT ARM), Gastritis, Gall Bladder Disease (s/p cholecystectomy), HTN, Post Traumatic Stress Disorder, Rheumatoid Arthritis, Seizures, Chronic Pain Denies: Chronic Kidney Disease Surgical History: Cholecystectomy - [facility] Procedures ALCOHOL DETOXIFICATION (07/04/15) APPLICATION OF SPLINT (03/20/13) CLOSURE SKIN & SUBCUTANEOUS NEC (08/14/13) DETOXIFICATION SERVICES FOR SUBSTANCE ABUSE TREATMENT (03/22/16) ESOPHAGOGASTRODUODENOSCOPY [EGD] W/CLOSED BIOPSY (02/16/15) OTHER GROUP THERAPY (03/12/13) PHYSICAL THERAPY NEC (07/04/15) TETANUS TOXOID ADMINIST (01/19/14) Family History: States: Unknown Family Hx - Social History Hx Tobacco Use: No Hx Alcohol Use: Yes Hx Substance Use: No - Immunization History Hx Tetanus Toxoid Vaccination: No Hx Influenza Vaccination: Yes Hx Pneumococcal Vaccination: Yes Review Of Systems Constitutional: Negative for: Fever, Chills Cardiovascular: Negative for: Chest Pain Respiratory: Negative for: Cough, Shortness of Breath Gastrointestinal: Negative for: Nausea, Vomiting, Abdominal Pain Skin: Negative for: Rash Psych: Negative for: Depression, Suicidal ideation Physical Exam - Physical Exam Appears: Non-toxic, No Acute Distress, Other (Mildly intoxicated) Skin: Normal Color, Warm, Dry Head: Atraumatic, Normacephalic Eye(s): bilateral: Normal Inspection Neck: Normal ROM, Supple Chest: Symmetrical Cardiovascular: Rhythm Regular Respiratory: Normal Breath Sounds, No Rales, No Rhonchi, No Wheezing Gastrointestinal/Abdominal: Soft, No Tenderness, No Guarding, No Rebound Extremity: Bilateral: Atraumatic, Normal Color And Temperature, Normal ROM Neurological/Psych: Oriented x3, Other (mildly intoxicated) Gait: With Assistance (wheelchair) ED Course And Treatment O2 Sat by Pulse Oximetry: 97 (ON RA) Pulse Ox Interpretation: Normal Reevaluation Time: 20:45 Reassessment Condition: Unchanged (PER RN, PT ELOPED PRIOR TO ER REEVAL) Disposition Counseled Patient/Family Regarding: Diagnosis - Disposition Disposition: ELOPEMENT - ER ONLY Disposition Time: 20:45 Condition: UNKNOWN Forms: [facility] (Emirati) - Clinical Impression Clinical Impression: Alcohol intoxication - Scribe Statement The provider has reviewed the documentation as recorded by the Scribe Woo Brown All medical record entries made by the Scribe were at my direction and persona lly dictated by me. I have reviewed the chart and agree that the record accurately reflects my personal performance of the history, physical exam, medical decision making, and the department course for this patient. I have also personally directed, reviewed, and agree with the discharge instructions and disposition.
== END 2018-08-30 19:06 | disposition left against medical advice (07) ==
LOC: C.ER 18:14
DX: F10.129 Alcohol abuse with intoxication, unspecified (principal); E11.9 Type 2 diabetes mellitus without complications; I25.10 Atherosclerotic heart disease of native coronary artery without angina pectoris

== ENCOUNTER 2018-08-31 16:47 | Emergency (ER) | payer MEDICAID ==
[2018-08-31 16:47] VITALS: BMI 31.4
[2018-08-31 17:12] VITALS: BP 108/75; PULSE 108; RESP 18; TEMP 97.3; O2SAT 97
--- NOTE | 2018-08-31 17:42 | C.PDOC ---
History Of Present Illness 57 y/o male, with history of alcohol abuse and well known here in the ER, presents to ER complaining of right leg pain. He denies any injuries/trauma. 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 Time Seen by Provider: 08/31/18 17:31 Chief Complaint (Nursing): Lower Extremity Problem/Injury History Per: Patient History/Exam Limitations: no limitations Onset/Duration Of Symptoms: Days Current Symptoms Are (Timing): Still Present Severity: Moderate Past Medical History Reviewed: Historical Data, Nursing Documentation, Vital Signs Vital Signs: Last Vital Signs Temp 97.3 F L 08/31/18 17:09 Pulse 108 H 08/31/18 17:09 Resp 18 08/31/18 17:09 BP 108/75 08/31/18 17:09 Pulse Ox 97 08/31/18 17:09 - Medical History PMH: Anxiety, Arthritis, Bronchitis, CAD, Depression, Diabetes (Pt. did not disclose to caption writer, not aware), Fractures (RIGHT ARM), Gastritis, Gall Bladder Disease (s/p cholecystectomy), HTN, Post Traumatic Stress Disorder, Seizures, Chronic Pain Surgical History: Cholecystectomy - [facility] Procedures ALCOHOL DETOXIFICATION (07/04/15) APPLICATION OF SPLINT (03/20/13) CLOSURE SKIN & SUBCUTANEOUS NEC (08/14/13) DETOXIFICATION SERVICES FOR SUBSTANCE ABUSE TREATMENT (03/22/16) ESOPHAGOGASTRODUODENOSCOPY [EGD] W/CLOSED BIOPSY (02/16/15) OTHER GROUP THERAPY (03/12/13) PHYSICAL THERAPY NEC (07/04/15) TETANUS TOXOID ADMINIST (01/19/14) Family History: States: No Known Family Hx - Social History Hx Tobacco Use: No Hx Alcohol Use: Yes Hx Substance Use: No - Immunization History Hx Tetanus Toxoid Vaccination: No Hx Influenza Vaccination: Yes Hx Pneumococcal Vaccination: Yes Review Of Systems Constitutional: Negative for: Fever, Chills Cardiovascular: Negative for: Chest Pain Respiratory: Negative for: Shortness of Breath Gastrointestinal: Negative for: Nausea, Vomiting, Abdominal Pain, Diarrhea Musculoskeletal: Positive for: Leg Pain (Right) Neurological: Negative for: Weakness, Numbness, Headache Psych: Positive for: Other (alcohol intoxication) Physical Exam - Physical Exam Appears: Well, Non-toxic, No Acute Distress, Unkempt, Other (alcohol on breath) Skin: Warm, Dry Head: Atraumatic, Normacephalic Eye(s): bilateral: Normal Inspection Oral Mucosa: Moist Neck: Supple Cardiovascular: Rhythm Regular Respiratory: Normal Breath Sounds, No Rales, No Rhonchi, No Wheezing Gastrointestinal/Abdominal: Normal Exam, Bowel Sounds, Soft, No Tenderness Extremity: Tenderness (mild diffuse TTP at B/L legs, R>L), No Calf Tenderness Extremity: Bilateral: Atraumatic, Normal Color And Temperature, Normal ROM Pulses: Left Dorsalis Pedis: Normal, Right Dorsalis Pedis: Normal Neurological/Psych: Other (intoxicated, moving all 4 extremities spontaneously) ED Course And Treatment O2 Sat by Pulse Oximetry: 97 (RA) Pulse Ox Interpretation: Normal Progress Note: Accucheck ordered and reviewed. Patient given Motrin. Pending sobriety. Disposition - Disposition Disposition Time: 19:00 Condition: STABLE Forms: [facility] (Armenian) - Clinical Impression Clinical Impression: Alcohol intoxication, Right leg pain - Scribe Statement The provider has reviewed the documentation as recorded by the Jada Bullock Provider Attestation: All medical record entries made by the Rominaibjosé miguel were at my direction and personally dictated by me. I have reviewed the chart and agree that the record accurately reflects my personal performance of the history, physical exam, medical decision making, and the department course for this patient. I have also personally directed, reviewed, and agree with the discharge instructions and disposition. Physician Patient Turnover Patient Signed Over To: Valeriano Stuart Handoff Comments: pending sobriety
== END 2018-08-31 19:27 | disposition left against medical advice (07) ==
LOC: C.ER 16:47
DX: M79.604 Pain in right leg (principal); F10.129 Alcohol abuse with intoxication, unspecified; Y90.9 Presence of alcohol in blood, level not specified

== ENCOUNTER 2018-09-01 20:35 | Emergency (ER) | payer MEDICAID ==
[2018-09-01 20:36] VITALS: BMI 31.4
--- NOTE | 2018-09-01 21:10 | C.PDOC ---
Time Seen by Provider: 09/01/18 21:09 Chief Complaint (Nursing): Lower Extremity Problem/Injury Past Medical History - Medical History PMH: Anxiety, Arthritis, Bronchitis, CAD, Depression, Diabetes (Pt. did not disclose to data analyst report writer, not aware), Fractures (RIGHT ARM), Gastritis, Gall Bladder Disease (s/p cholecystectomy), HTN, Post Traumatic Stress Disorder, Rheumatoid Arthritis, Seizures, Chronic Pain Denies: Chronic Kidney Disease Surgical History: Cholecystectomy - [facility] Procedures ALCOHOL DETOXIFICATION (07/04/15) APPLICATION OF SPLINT (03/20/13) CLOSURE SKIN & SUBCUTANEOUS NEC (08/14/13) DETOXIFICATION SERVICES FOR SUBSTANCE ABUSE TREATMENT (03/22/16) ESOPHAGOGASTRODUODENOSCOPY [EGD] W/CLOSED BIOPSY (02/16/15) OTHER GROUP THERAPY (03/12/13) PHYSICAL THERAPY NEC (07/04/15) TETANUS TOXOID ADMINIST (01/19/14) Family History: States: Unknown Family Hx - Social History Hx Tobacco Use: No Hx Alcohol Use: Yes Hx Substance Use: No - Immunization History Hx Tetanus Toxoid Vaccination: No Hx Influenza Vaccination: Yes Hx Pneumococcal Vaccination: Yes Disposition Counseled Patient/Family Regarding: Studies Performed, Diagnosis, Need For Followup - Disposition Referrals: [facility] [Outside] Disposition: HOME/ ROUTINE Disposition Time: 21:09 Condition: FAIR Instructions: Alcohol Abuse and Alcoholism (DC) - Clinical Impression Clinical Impression: Alcohol intoxication
--- NOTE | 2018-09-01 21:24 | C.PDOC ---
History Of Present Illness 57 year old presents to the ED intoxicated. No suicidal ideation or homicidal ideation. No other medical complaints during ED visit. Want a place to sleep Time Seen by Provider: 09/01/18 21:09 Chief Complaint (Nursing): Lower Extremity Problem/Injury History Per: Patient History/Exam Limitations: no limitations Current Symptoms Are (Timing): Still Present Severity: None Recent travel outside of the [place]: No Additional History Per: Patient Past Medical History Reviewed: Historical Data, Nursing Documentation, Vital Signs - Medical History PMH: Anxiety, Arthritis, Bronchitis, CAD, Depression, Diabetes (Pt. 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 writer, not aware), Fractures (RIGHT ARM), Gastritis, Gall Bladder Disease (s/p cholecystectomy), HTN, Post Traumatic Stress Disorder, Rheumatoid Arthritis, Seizures, Chronic Pain Denies: Chronic Kidney Disease Surgical History: Cholecystectomy - [facility] Procedures ALCOHOL DETOXIFICATION (07/04/15) APPLICATION OF SPLINT (03/20/13) CLOSURE SKIN & SUBCUTANEOUS NEC (08/14/13) DETOXIFICATION SERVICES FOR SUBSTANCE ABUSE TREATMENT (03/22/16) ESOPHAGOGASTRODUODENOSCOPY [EGD] W/CLOSED BIOPSY (02/16/15) OTHER GROUP THERAPY (03/12/13) PHYSICAL THERAPY NEC (07/04/15) TETANUS TOXOID ADMINIST (01/19/14) Family History: States: Unknown Family Hx - Social History Hx Tobacco Use: No Hx Alcohol Use: Yes Hx Substance Use: No - Immunization History Hx Tetanus Toxoid Vaccination: No Hx Influenza Vaccination: Yes Hx Pneumococcal Vaccination: Yes Review Of Systems Review Of Systems: ROS cannot be obtained secondary to pt's inabilty to answer questions. (limited due to patient's condition.) Psych: Positive for: Other (homicidal ideations. ). Negative for: Suicidal ideation Physical Exam - Physical Exam Appears: No Acute Distress Skin: Warm, Dry Head: Normacephalic Eye(s): bilateral: Normal Inspection Neck: Trachea Midline, Supple Chest: Symmetrical, No Deformity Respiratory: No Accessory Muscle Use, Other (no acute respiratory distress.) Gastrointestinal/Abdominal: No Tenderness Extremity: No Swelling Extremity: Bilateral: Atraumatic Neurological/Psych: Oriented x3 Gait: With Assistance (wheeel chair) ED Course And Treatment O2 Sat by Pulse Oximetry: 96 Pulse Ox Interpretation: Normal Disposition - Disposition Referrals: [facility] [Outside] Disposition: HOME/ ROUTINE Disposition Time: 00:25 Condition: FAIR Instructions: Alcohol Abuse and Alcoholism (DC) Forms: [facility] ([place]) - Clinical Impression Clinical Impression: Alcohol intoxication - Scribe Statement The provider has reviewed the documentation as recorded by the Scribe (Blessing Hernandez) Provider Attestation: All medical record entries made by the Scribe were at my direction and personally dictated by me. I have reviewed the chart and agree that the record accurately reflects my personal performance of the history, physical exam, medical decision making, and the department course for this patient. I have also personally directed, reviewed, and agree with the discharge instructions and disposition.
[2018-09-02 00:27] VITALS: TEMP 98.8
[2018-09-02 03:36] VITALS: BP 117/63; PULSE 112; RESP 19; O2SAT 96
== END 2018-09-02 05:30 | disposition home or self-care (01) ==
LOC: C.ER 20:35
DX: F10.129 Alcohol abuse with intoxication, unspecified (principal); E11.9 Type 2 diabetes mellitus without complications; I25.10 Atherosclerotic heart disease of native coronary artery without angina pectoris

== ENCOUNTER 2018-09-02 20:28 | Emergency (ER) | payer MEDICAID ==
[2018-09-02 20:28] VITALS: BMI 31.4
--- NOTE | 2018-09-02 20:48 | C.PDOC ---
History Of Present Illness 57 yr old M w/ hx of etoh abuse, chronic leg pain p/w complaint of needing somewhere to stay for the night. Pt notes drinking a small amount of etoh today as well. He denies any falls or trauma or worsening leg pain. No loss of sensation to legs, FND or enuresis or encoparesis. No falls or trauma. Pt is baseline in a wheechair. Pt is well known to this ED for ETOH and is at baseline mentation and behavior. No SI, HI or depression. No neck stiffness or fever. No GI or complaints. No CP or sob. No other complaints. Time Seen by Provider: 09/02/18 20:47 Chief Complaint (Nursing): Substance Abuse Past Medical History Vital Signs: Last Vital Signs Temp 97.7 F 09/02/18 20:38 Pulse 101 H 09/02/18 20:38 Resp 16 09/02/18 20:38 BP 124/81 09/02/18 20:38 Pulse Ox 98 09/02/18 20:38 - Medical History PMH: Anxiety, Arthritis, Bronchitis, CAD, Depression, Diabetes (Pt. did not disclose to senior writer, not aware), Fractures (RIGHT ARM), Gastritis, Gall Bladder Disease (s/p cholecystectomy), HTN, Post Traumatic Stress Disorder, Rheumatoid Arthritis, Seizures, Chronic Pain Denies: Chronic Kidney Disease Surgical History: Cholecystectomy - [facility] Procedures ALCOHOL DETOXIFICATION (07/04/15) APPLICATION OF SPLINT (03/20/13) CLOSURE SKIN & SUBCUTANEOUS NEC (08/14/13) DETOXIFICATION SERVICES FOR SUBSTANCE ABUSE TREATMENT (03/22/16) ESOPHAGOGASTRODUODENOSCOPY [EGD] W/CLOSED BIOPSY (02/16/15) OTHER GROUP THERAPY (03/12/13) PHYSICAL THERAPY NEC (07/04/15) TETANUS TOXOID ADMINIST (01/19/14) Family History: States: Unknown Family Hx - Social History Hx Tobacco Use: No Hx Alcohol Use: Yes Hx Substance Use: No - Immunization History Hx Tetanus Toxoid Vaccination: No Hx Influenza Vaccination: Yes Hx Pneumococcal Vaccination: Yes Review Of Systems Constitutional: Negative for: Fever, Sweats, Weakness, Malaise Eyes: Negative for: Pain, Eyelid Inflammation, Redness ENT: Negative for: Ear Pain, Ear Discharge, Nose Congestion, Mouth Pain Cardiovascular: Negative for: Chest Pain, Palpitations Respiratory: Negative for: Cough, Shortness of Breath, SOB with Excertion Gastrointestinal: Negative for: Nausea, Vomiting, Abdominal Pain, Constipation, Melena Genitourinary: Negative for: Dysuria, Frequency, Hematuria Musculoskeletal: Negative for: Neck Pain, Shoulder Pain, Back Pain, Hand Pain Neurological: Negative for: Weakness, Numbness, Confusion Psych: Negative for: Anxiety Physical Exam - Physical Exam Appears: Well, Non-toxic, No Acute Distress Skin: Normal Color, Warm Head: Atraumatic, Normacephalic Eye(s): bilateral: Normal Inspection, PERRL, EOMI Ear(s): Bilateral: Normal Nose: Normal Oral Mucosa: Moist Tongue: Normal Appearing Lips: Normal Appearing Teeth: Normal Dentition Gingiva: Normal Appearing Throat: Normal Neck: Normal, Normal ROM, No Midline Cervical Tenderness, Supple, Other (no meningeal signs) Chest: Symmetrical, No Deformity Cardiovascular: Rhythm Regular Respiratory: Normal Breath Sounds Gastrointestinal/Abdominal: Normal Exam, No Tenderness Back: Normal Inspection, No CVA Tenderness Extremity: Normal ROM Extremity: Bilateral: Atraumatic Neurological/Psych: Oriented x3, Normal Speech, Normal Cognition, No Cerebellar Signs ED Course And Treatment O2 Sat by Pulse Oximetry: 98 Medical Decision Making Medical Decision Makin yr old M w/ hx of etoh abuse and chronic leg pain looking for somewhere to stay for the night. No other complaints. Exam benign, pt at baseline. No signs of withdrawal. 1241 clinically sober. Neuro exam unremarkable from baseline. no signs of withdrawal, pt in NAD with VSS, clear for d/c home. Disposition - Disposition Disposition Time: 00:41 Condition: GOOD Forms: [facility] ([place]) - Clinical Impression Clinical Impression: ETOH abuse
[2018-09-03 01:15] VITALS: O2SAT 95
[2018-09-03 04:15] VITALS: BP 130/84; PULSE 90; RESP 12; TEMP 98.2
== END 2018-09-03 05:10 | disposition home or self-care (01) ==
LOC: C.ER 20:28
DX: F10.10 Alcohol abuse, uncomplicated (principal); Y90.9 Presence of alcohol in blood, level not specified

== ENCOUNTER 2018-09-05 17:48 | Emergency (ER) | payer MEDICAID ==
[2018-09-05 17:48] VITALS: BMI 31.4
[2018-09-05 18:11] VITALS: BP 143/95; PULSE 96; TEMP 97.8; O2SAT 20
--- NOTE | 2018-09-05 18:18 | C.PDOC ---
History Of Present Illness 57 year old male presents to the ED requesting a place to sleep. Patient ambulates in wheelchair and wheeled himself to the ED. Admits to alcohol use. Denies any SI/HI. Time Seen by Provider: 09/05/18 18:16 Chief Complaint (Nursing): Substance Abuse History Per: Patient History/Exam Limitations: no limitations Onset/Duration Of Symptoms: Hrs Current Symptoms Are (Timing): Still Present Suicide/Self Injury Attempted (Context): None Modifying Factor(s): Alcohol Associated Symptoms: denies: Depression, Suicidal Thoughts, Suicidal Plan Past Medical History Reviewed: Historical Data, Nursing Documentation, Vital Signs Vital Signs: Last Vital Signs Temp 97.8 F 09/05/18 18:03 Pulse 96 H 09/05/18 18:03 Resp BP 143/95 H 09/05/18 18:03 Pulse Ox 20 L 09/05/18 18:03 - Medical History PMH: Anxiety, Arthritis, Bronchitis, CAD, Depression, Diabetes (Pt. 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, not aware), Fractures (RIGHT ARM), Gastritis, Gall Bladder Disease (s/p cholecystectomy), HTN, Post Traumatic Stress Disorder, Rheumatoid Arthritis, Seizures, Chronic Pain Denies: Chronic Kidney Disease Surgical History: Cholecystectomy - [facility] Procedures ALCOHOL DETOXIFICATION (07/04/15) APPLICATION OF SPLINT (03/20/13) CLOSURE SKIN & SUBCUTANEOUS NEC (08/14/13) DETOXIFICATION SERVICES FOR SUBSTANCE ABUSE TREATMENT (03/22/16) ESOPHAGOGASTRODUODENOSCOPY [EGD] W/CLOSED BIOPSY (02/16/15) OTHER GROUP THERAPY (03/12/13) PHYSICAL THERAPY NEC (07/04/15) TETANUS TOXOID ADMINIST (01/19/14) Family History: States: No Known Family Hx - Social History Hx Tobacco Use: No Hx Alcohol Use: Yes Hx Substance Use: No - Immunization History Hx Tetanus Toxoid Vaccination: No Hx Influenza Vaccination: Yes Hx Pneumococcal Vaccination: Yes Review Of Systems Except As Marked, All Systems Reviewed And Found Negative. Constitutional: Negative for: Fever, Chills Psych: Negative for: Depression, Suicidal ideation Physical Exam - Physical Exam Appears: Non-toxic, Other (conversing, easily arousable ) Skin: Warm, Dry Head: Atraumatic, Normacephalic Eye(s): bilateral: Normal Inspection Nose: Normal Oral Mucosa: Moist, Other (alcohol on breath) Throat: No Erythema, No Exudate Neck: Normal ROM, Supple Chest: Symmetrical Cardiovascular: Rhythm Regular Respiratory: Normal Breath Sounds, No Rales, No Rhonchi, No Wheezing Neurological/Psych: Oriented x3, Normal Speech Gait: Other (wheelchair) ED Course And Treatment O2 Sat by Pulse Oximetry: 20 Medical Decision Making Medical Decision Making: typical alcohol abuse Disposition Doctor Will See Patient In The: Office Counseled Patient/Family Regarding: Studies Performed, Diagnosis - Disposition Referrals: Alcoholics Anonymous [Outside] [facility] [Outside] [email or web address] [Outside] [facility] [Outside] [facility] [Outside] Disposition: HOME/ ROUTINE Disposition Time: 18:17 Condition: GOOD Additional Instructions: seek nightly fpc placement, as directed seek AA Instructions: Alcohol Abuse and Alcoholism (DC) Forms: [email or web address] ([place]) - Clinical Impression Clinical Impression: Alcoholism /alcohol abuse - Scribe Statement The provider has reviewed the documentation as recorded by the Scribjosé miguel Sousa All medical record entries made by the Scribe were at my direction and personally dictated by me. I have reviewed the chart and agree that the record accurately reflects my personal performance of the history, physical exam, medical decision making, and the department course for this patient. I have also personally directed, reviewed, and agree with the discharge instructions and disposition.
== END 2018-09-05 18:40 | disposition home or self-care (01) ==
LOC: C.ER 17:48
DX: F10.229 Alcohol dependence with intoxication, unspecified (principal)

== ENCOUNTER 2018-09-06 18:05 | Emergency (ER) | payer MEDICAID ==
[2018-09-06 18:06] VITALS: BMI 31.4
[2018-09-06 18:16] VITALS: BP 148/86; PULSE 88; RESP 20; TEMP 98.4; O2SAT 97
--- NOTE | 2018-09-07 01:24 | C.PDOC ---
History Of Present Illness 57 year old male presents to the ED requesting a place to sleep for the night. Patient admits to drinking earlier today. Patient is familiar to this ED and has had many prior visits with similar presentation. Patient denies any new injuries. Time Seen by Provider: 09/06/18 19:05 Chief Complaint (Nursing): Lower Extremity Problem/Injury History Per: Patient History/Exam Limitations: intoxication Onset/Duration Of Symptoms: Hrs Current Symptoms Are (Timing): Still Present Additional History Per: Patient Past Medical History Reviewed: Historical Data, Nursing Documentation, Vital Signs Vital Signs: Last Vital Signs Temp 98.4 F 09/06/18 18:14 Pulse 88 09/06/18 18:14 Resp 20 09/06/18 18:14 BP 148/86 09/06/18 18:14 Pulse Ox 97 09/06/18 18:14 - Medical History PMH: Anxiety, Arthritis, Bronchitis, CAD, Depression, Diabetes (Pt. did not disclose to rfp writer, not aware), Fractures (RIGHT ARM), Gastritis, Gall Bladder Disease (s/p cholecystectomy), HTN, Post Traumatic Stress Disorder, Rheumatoid Arthritis, Seizures, Chronic Pain Denies: Chronic Kidney Disease Surgical History: Cholecystectomy - [facility] Procedures ALCOHOL DETOXIFICATION (07/04/15) APPLICATION OF SPLINT (03/20/13) CLOSURE SKIN & SUBCUTANEOUS NEC (08/14/13) DETOXIFICATION SERVICES FOR SUBSTANCE ABUSE TREATMENT (03/22/16) ESOPHAGOGASTRODUODENOSCOPY [EGD] W/CLOSED BIOPSY (02/16/15) OTHER GROUP THERAPY (03/12/13) PHYSICAL THERAPY NEC (07/04/15) TETANUS TOXOID ADMINIST (01/19/14) Family History: States: Unknown Family Hx - Social History Hx Tobacco Use: No Hx Alcohol Use: Yes Hx Substance Use: No - Immunization History Hx Tetanus Toxoid Vaccination: No Hx Influenza Vaccination: Yes Hx Pneumococcal Vaccination: Yes Review Of Systems Psych: Positive for: Other (EtOH intoxication ) Physical Exam - Physical Exam Appears: Non-toxic, No Acute Distress, Other (visibly intoxicated ) Skin: Normal Color, Warm, Dry Head: Atraumatic, Normacephalic Eye(s): bilateral: Normal Inspection Oral Mucosa: Moist, Other (alcohol on breath ) Chest: Symmetrical, No Deformity Respiratory: No Accessory Muscle Use Extremity: Normal ROM Neurological/Psych: Other (arousable to touch and verbal stimuli ) ED Course And Treatment O2 Sat by Pulse Oximetry: 97 (on RA) Pulse Ox Interpretation: Normal Disposition Doctor Will See Patient In The: Office Counseled Patient/Family Regarding: Studies Performed, Diagnosis - Disposition Disposition: HOME/ ROUTINE Disposition Time: 18:00 Condition: GOOD Instructions: Alcohol Abuse and Alcoholism (DC) Forms: [facility] (Citizen Of [place]) - Clinical Impression Clinical Impression: Homelessness, Alcoholism /alcohol abuse - Scribe Statement The provider has reviewed the documentation as recorded by the Scribe Provider Attestation: All medical record entries made by the Scribe were at my direction and personally dictated by me. I have reviewed the chart and agree that the record accurately reflects my personal performance of the history, physical exam, medical decision making, and the department course for this patient. I have also personally directed, reviewed, and agree with the discharge instructions and disposition.
== END 2018-09-06 19:25 | disposition home or self-care (01) ==
LOC: C.ER 18:05
DX: F10.229 Alcohol dependence with intoxication, unspecified (principal); Y90.9 Presence of alcohol in blood, level not specified; Z59.0 Homelessness

== ENCOUNTER → 2018-09-07 20:50 | Emergency (ER) | payer MEDICAID ==
[2018-09-07 20:50] VITALS: BMI 31.4
== END | disposition left against medical advice (07) ==
LOC: C.ER 20:50
DX: Z02.89 Encounter for other administrative examinations (principal); M79.606 Pain in leg, unspecified

== ENCOUNTER 2018-09-08 21:33 | Emergency (ER) | payer MEDICAID ==
[2018-09-08 21:33] VITALS: BMI 31.4
--- NOTE | 2018-09-08 22:14 | C.PDOC ---
History Of Present Illness 57 year old male presents to the ED for alcohol intoxication and looking for a place to spend the night. Patient admits to drinking alcohol today. Patient denies Si/HI, hallucinations, CP, SOB, injury, fall, trauma. Time Seen by Provider: 09/08/18 22:12 Chief Complaint (Nursing): Substance Abuse History Per: Patient, EMS History/Exam Limitations: intoxication Onset/Duration Of Symptoms: Hrs Current Symptoms Are (Timing): Still Present Suicide/Self Injury Attempted (Context): None Modifying Factor(s): Alcohol Associated Symptoms: denies: Depression, Suicidal Thoughts, Suicidal Plan Recent travel outside of the [place]: No Additional History Per: Patient, EMS Past Medical History Reviewed: Historical Data, Nursing Documentation, Vital Signs Vital Signs: Last Vital Signs Temp 97.4 F L 09/08/18 21:45 Pulse 82 09/08/18 21:45 Resp 20 09/08/18 21:45 BP 128/74 09/08/18 21:45 Pulse Ox 98 09/08/18 21:45 - Medical History PMH: Anxiety, Arthritis, Bronchitis, CAD, Depression, 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, not aware), Fractures (RIGHT ARM), Gastritis, Gall Bladder Disease (s/p cholecystectomy), HTN, Post Traumatic Stress Disorder, Rheumatoid Arthritis, Seizures, Chronic Pain Denies: Chronic Kidney Disease Surgical History: Cholecystectomy - [facility] Procedures ALCOHOL DETOXIFICATION (07/04/15) APPLICATION OF SPLINT (03/20/13) CLOSURE SKIN & SUBCUTANEOUS NEC (08/14/13) DETOXIFICATION SERVICES FOR SUBSTANCE ABUSE TREATMENT (03/22/16) ESOPHAGOGASTRODUODENOSCOPY [EGD] W/CLOSED BIOPSY (02/16/15) OTHER GROUP THERAPY (03/12/13) PHYSICAL THERAPY NEC (07/04/15) TETANUS TOXOID ADMINIST (01/19/14) Family History: States: Unknown Family Hx - Social History Hx Tobacco Use: No Hx Alcohol Use: Yes Hx Substance Use: No - Immunization History Hx Tetanus Toxoid Vaccination: No Hx Influenza Vaccination: Yes Hx Pneumococcal Vaccination: Yes Review Of Systems Constitutional: Negative for: Fever, Chills Cardiovascular: Negative for: Chest Pain Respiratory: Negative for: Shortness of Breath Gastrointestinal: Negative for: Nausea, Vomiting, Abdominal Pain Skin: Negative for: Rash Psych: Negative for: Depression, Suicidal ideation Physical Exam - Physical Exam Appears: Non-toxic, No Acute Distress Skin: Warm, Dry Head: Normacephalic Eye(s): bilateral: Normal Inspection Neck: Supple Chest: Symmetrical Cardiovascular: Rhythm Regular Respiratory: No Rales, No Rhonchi, No Wheezing Gastrointestinal/Abdominal: Soft, No Tenderness, No Guarding, No Rebound Extremity: Bilateral: Atraumatic, Normal Color And Temperature, Normal ROM Neurological/Psych: Oriented x3, Normal Speech, Normal Cognition Gait: With Assistance (wheelchair) ED Course And Treatment O2 Sat by Pulse Oximetry: 98 (ON RA) Pulse Ox Interpretation: Normal Reevaluation Time: 05:04 Reassessment Condition: Improved Disposition Counseled Patient/Family Regarding: Studies Performed, Diagnosis, Need For Followup - Disposition Referrals: [facility] [Outside] Disposition: HOME/ ROUTINE Disposition Time: 22:13 Condition: FAIR Instructions: Alcohol Abuse and Alcoholism (DC) Forms: [facility] (Mongolian) - Clinical Impression Clinical Impression: Alcohol intoxication, Chronic alcoholism - Scribe Statement The provider has reviewed the documentation as recorded by the Scribe Woo Brown All medical record entries made by the Scribe were at my direction and personally dictated by me. I have reviewed the chart and agree that the record accurately reflects my personal performance of the history, physical exam, medical decision making, and the department course for this patient. I have also personally directed, reviewed, and agree with the discharge instructions and disposition.
[2018-09-09 01:21] VITALS: RESP 20
[2018-09-09 04:36] VITALS: BP 112/67; PULSE 97; TEMP 97.1; O2SAT 98
== END 2018-09-09 06:25 | disposition home or self-care (01) ==
LOC: C.ER 21:33
DX: F10.229 Alcohol dependence with intoxication, unspecified (principal); Y90.9 Presence of alcohol in blood, level not specified

== ENCOUNTER 2018-09-09 22:34 | Emergency (ER) | payer MEDICAID ==
[2018-09-09 22:34] VITALS: BMI 31.4
[2018-09-09 22:47] VITALS: TEMP 97.8
--- NOTE | 2018-09-09 22:57 | C.PDOC ---
History Of Present Illness Patient presents to the ER with acute ETOH intoxication, requesting a place to spend the night. Patient has no complaints at this time. Time Seen by Provider: 09/09/18 22:54 Chief Complaint (Nursing): Substance Abuse History Per: Patient History/Exam Limitations: no limitations Onset/Duration Of Symptoms: Hrs Current Symptoms Are (Timing): Still Present Suicide/Self Injury Attempted (Context): None Modifying Factor(s): Alcohol Severity: None Pain Scale Rating Of: 0 Associated Symptoms: denies: Depression, Suicidal Thoughts Involuntary Hold By: None Recent travel outside of the [place]: No Past Medical History Reviewed: Historical Data, Nursing Documentation, Vital Signs Vital Signs: Last Vital Signs Temp 97.8 F 09/09/18 22:44 Pulse 92 H 09/09/18 22:44 Resp 16 09/09/18 22:44 BP 125/82 09/09/18 22:44 Pulse Ox 98 09/09/18 22:44 - Medical History PMH: Anxiety, Arthritis, Bronchitis, CAD, Depression, Diabetes (Pt. did not disclose to business writer, not aware), Fractures (RIGHT ARM), Gastritis, Gall Bladder Disease (s/p cholecystectomy), HTN, Post Traumatic Stress Disorder, Rheumatoid Arthritis, Seizures, Chronic Pain Denies: Chronic Kidney Disease Surgical History: Cholecystectomy - [facility] Procedures ALCOHOL DETOXIFICATION (07/04/15) APPLICATION OF SPLINT (03/20/13) CLOSURE SKIN & SUBCUTANEOUS NEC (08/14/13) DETOXIFICATION SERVICES FOR SUBSTANCE ABUSE TREATMENT (03/22/16) ESOPHAGOGASTRODUODENOSCOPY [EGD] W/CLOSED BIOPSY (02/16/15) OTHER GROUP THERAPY (03/12/13) PHYSICAL THERAPY NEC (07/04/15) TETANUS TOXOID ADMINIST (01/19/14) Family History: States: No Known Family Hx - Social History Hx Tobacco Use: No Hx Alcohol Use: Yes Hx Substance Use: No - Immunization History Hx Tetanus Toxoid Vaccination: No Hx Influenza Vaccination: Yes Hx Pneumococcal Vaccination: Yes Review Of Systems Constitutional: Negative for: Fever, Chills Cardiovascular: Negative for: Chest Pain, Palpitations Respiratory: Negative for: Cough, Shortness of Breath Gastrointestinal: Negative for: Nausea, Vomiting Neurological: Negative for: Weakness, Numbness Physical Exam - Physical Exam Appears: Non-toxic, Other (ETOH on breath, no sign of injury) Skin: Warm, Dry Head: Normacephalic Oral Mucosa: Moist Neck: Trachea Midline, Supple Chest: Symmetrical, No Tenderness Cardiovascular: Rhythm Regular Respiratory: No Rales, No Rhonchi, No Wheezing Gastrointestinal/Abdominal: Soft, No Tenderness Neurological/Psych: Oriented x3 ED Course And Treatment O2 Sat by Pulse Oximetry: 98 (Room air) Pulse Ox Interpretation: Normal Disposition Counseled Patient/Family Regarding: Studies Performed, Diagnosis, Need For Followup - Disposition Referrals: [facility] [Outside] Disposition: HOME/ ROUTINE Disposition Time: 22:55 Condition: FAIR Instructions: Alcohol Abuse and Alcoholism (DC) Forms: [employer] (Arabic) - Clinical Impression Clinical Impression: Alcohol intoxication, Chronic alcoholism - Scribe Statement The provider has reviewed the documentation as recorded by the Scribe Fabián Ramirez All medical record entries made by the Scribe were at my direction and personally dictated by me. I have reviewed the chart and agree that the record accurately reflects my personal performance of the history, physical exam, medical decision making, and the department course for this patient. I have also personally directed, reviewed, and agree with the discharge instructions and di sposition.
[2018-09-10 04:24] VITALS: BP 145/70; PULSE 61; RESP 20
[2018-09-10 05:36] VITALS: O2SAT 98
== END 2018-09-10 05:48 | disposition home or self-care (01) ==
LOC: C.ER 22:34
DX: F10.229 Alcohol dependence with intoxication, unspecified (principal); Y90.9 Presence of alcohol in blood, level not specified

== ENCOUNTER 2018-09-10 19:49 | Inpatient (IN) | payer MEDICAID ==
[2018-09-10 19:50] VITALS: BMI 31.4
[2018-09-10] MEDS ORDERED: Multivitamin (MVI) 10 ML, Thiamine 100 MG, Folic Acid 1 MG in Sodium Chloride 0.9% 1,00... IV ONE (20:26)
[2018-09-10 20:42] LABS: BASO % 0.7 % (0.0-2.0); EOS # 0.1 K/uL (0.0-0.7); EOS % 2.4 % (0.0-4.0); HEMOGLOBIN 11.8 g/dL (12.0-18.0); LYMPH # 1.7 K/uL (1.0-4.3); LYMPH % 40.6 % (20.0-40.0); MEAN CELL VOLUME 100.9 fL (80.0-94.0); MEAN CORPUSCULAR HEMOGLOBIN 35.9 pg (27.0-31.0); MEAN CORPUSCULAR HGB CONC 35.6 g/dL (33.0-37.0); MONO # 0.5 K/uL (0.0-0.8); MONO % 13.1 % (0.0-10.0); NEUT # 1.8 K/uL (1.8-7.0); NEUT % 43.2 % (50.0-75.0); NRBC % 0.2 % (0.0-2.0); RBC 3.3 Mil/uL (4.40-5.90); RED CELL DISTRIBUTION WIDTH 14.1 % (11.5-14.5); WHITE BLOOD COUNT 4.1 K/uL (4.8-10.8)
[2018-09-10 20:58] LABS: ALB/GLOB RATIO 0.9 (1.0-2.1); ALBUMIN 4.2 g/dL (3.5-5.0); ALT/SGPT 30 U/L (21-72); AST/SGOT 99 U/L (17-59); BLOOD UREA NITROGEN 11 mg/dL (9-20); CALCIUM 9.3 mg/dl (8.6-10.4); GFR NON-AFRICAN AMERICAN > 60
--- NOTE | 2018-09-10 20:58 | C.PDOC ---
History Of Present Illness 57 year old male presents to the ED with alcohol intoxication. Patient had a seizure episode while in the ED. He admits to drinking earlier today. Patient denies suicidal/homicidal ideation. Chief Complaint (Nursing): Substance Abuse History Per: Patient History/Exam Limitations: intoxication Onset/Duration Of Symptoms: Hrs Current Symptoms Are (Timing): Still Present Suicide/Self Injury Attempted (Context): None Modifying Factor(s): Alcohol Associated Symptoms: denies: Suicidal Thoughts, Suicidal Plan Involuntary Hold By: None Recent travel outside of the [place]: No Additional History Per: Patient Past Medical History Reviewed: Historical Data, Nursing Documentation, Vital Signs Vital Signs: Last Vital Signs Temp 98.2 F 09/10/18 20:10 Pulse 113 H 09/10/18 20:10 Resp 20 09/10/18 20:10 BP 141/82 09/10/18 20:10 Pulse Ox 97 09/10/18 20:10 - Medical History PMH: Anxiety, Arthritis, Bronchitis, CAD, Depression, Diabetes (Pt. did not disclose to greeting card writer, not aware), Fractures (RIGHT ARM), Gastritis, Gall Bladder Disease (s/p cholecystectomy), HTN, Post Traumatic Stress Disorder, Rheumatoid Arthritis, Seizures, Chronic Pain Denies: Chronic Kidney Disease Surgical History: Cholecystectomy - [facility] ALCOHOL DETOXIFICATION (07/04/15) APPLICATION OF SPLINT (03/20/13) CLOSURE SKIN & SUBCUTANEOUS NEC (08/14/13) DETOXIFICATION SERVICES FOR SUBSTANCE ABUSE TREATMENT (03/22/16) ESOPHAGOGASTRODUODENOSCOPY [EGD] W/CLOSED BIOPSY (02/16/15) OTHER GROUP THERAPY (03/12/13) PHYSICAL THERAPY NEC (07/04/15) TETANUS TOXOID ADMINIST (01/19/14) Family History: States: Unknown Family Hx - Social History Hx Tobacco Use: No Hx Alcohol Use: Yes Hx Substance Use: No - Immunization History Hx Tetanus Toxoid Vaccination: No Hx Influenza Vaccination: Yes Hx Pneumococcal Vaccination: Yes Review Of Systems Neurological: Positive for: Seizures Psych: Positive for: Other (EtOH intoxication ). Negative for: Suicidal ideation Physical Exam - Physical Exam Appears: Non-toxic, Other (visibly intoxicated ) Skin: Normal Color, Warm, Dry, Other (laceration to right lower leg, with excoriations) Head: Atraumatic, Normacephalic Eye(s): bilateral: Normal Inspection Oral Mucosa: Moist Neck: Supple Chest: Symmetrical, No Deformity, No Tenderness Cardiovascular: Rhythm Regular, No Murmur Respiratory: Normal Breath Sounds, No Rales, No Rhonchi, No Wheezing Extremity: Normal ROM, Capillary Refill (less than 2 seconds ) Neurological/Psych: Oriented x3, Normal Speech, Normal Cognition ED Course And Treatment - Laboratory Results Result Diagrams: 09/10/18 20:35 09/10/18 20:35 ECG Interpretation: Normal, No Acute Changes, Abnormal Interpretation Of ECG: NSR, prolonged QT interval Rate From EC O2 Sat by Pulse Oximetry: 97 (on RA) Pulse Ox Interpretation: Normal - Radiology CXR: Interpreted by Me, Viewed By Me CXR Interpretation: Yes: No Acute Disease. No: Infiltrates Progress Note: Bloodwork, CXR, EKG ordered and reviewed. Ativan IM, Toradol IVP and IV Fluids given. Disposition Discussed With : Beata Buck Doctor Will See Patient In The: Hospital Counseled Patient/Family Regarding: Diagnosis - Disposition Disposition: HOSPITALIZED Disposition Time: 00:20 Condition: STABLE Forms: [facility] ([place]) - POA Present On Arrival: None - Clinical Impression Clinical Impression: Alcohol abuse, Seizure disorder, Infected wound, Right leg pain, Lower e xtremity cellulitis - Scribe Statement The provider has reviewed the documentation as recorded by the Scribe (Kari Fajardo) Provider Attestation: All medical record entries made by the Scribe were at my direction and personally dictated by me. I have reviewed the chart and agree that the record accurately reflects my personal performance of the history, physical exam, medical decision making, and the department course for this patient. I have also personally directed, reviewed, and agree with the discharge instructions and disposition.
[2018-09-11] MEDS ORDERED: Fosphenytoin 1,000 MG in Sodium Chloride 0.9% 50 ML IV STA (00:01)
[2018-09-11] MEDS ORDERED: cefTRIAXone IV 1 gm in Dextros 50 ML IVPB ONE (00:08)
[2018-09-11] MEDS ORDERED: cefTRIAXone 1 gm 1 GM/100 ML BAG IVPB ONE (00:51)
--- NOTE | 2018-09-11 11:06 | CP.PCM.HP ---
History of Present Illness - History of Present Illness History of Present Illness: pt is alcoholic came in toed intoxicated had seizer Present on Admission - Present on Admission Any Indicators Present on Admission: No Review of Systems - Review of Systems Systems not reviewed;Unavailable: Acuity of Condition - Constitutional Constitutional: Fatigue - EENT Eyes: As Per HPI Ears: As Per HPI Nose/Mouth/Throat: As Per HPI - Cardiovascular Cardiovascular: As Per HPI - Respiratory Respiratory: As Per HPI - Gastrointestinal Gastrointestinal: Bloating - Genitourinary Genitourinary: As Per HPI - Reproductive: Male Reproductive:Male: As Per HPI - Musculoskeletal Additional comments: leg pain celulitis and infected ulcer - Integumentary Integumentary: Skin Ulcer - Neurological Neurological: Convulsions - Psychiatric Additional comments: alc abuse Past Patient History - Infectious Disease Hx of Infectious Diseases: None - Past Medical History & Family History Past Medical History?: Yes - Past Social History Smoking Status: Never Smoked - CARDIAC Hx Hypertension: Yes - PULMONARY Hx Bronchitis: Yes - NEUROLOGICAL Hx Seizures: Yes - HEENT Hx HEENT Problems: No - RENAL Hx Chronic Kidney Disease: No - ENDOCRINE/METABOLIC Hx Endocrine Disorders: Yes Hx Diabetes Mellitus Type 2: Yes - INTEGUMENTARY Hx Dermatological Problems: Yes Hx Cellulitis: Yes (BLE with blisters) - MUSCULOSKELETAL/RHEUMATOLOGICAL Hx Arthritis: Yes Hx Falls: Yes Hx Fractures: Yes (RIGHT ARM) Hx Rheumatoid Arthritis: Yes - GASTROINTESTINAL Hx Gall Bladder Disease: Yes (s/p cholecystectomy) Hx Gastritis: Yes - PSYCHIATRIC Hx Anxiety: Yes Hx Depression: Yes Hx Post Traumatic Stress Disorder: Yes Hx Substance Use: Yes (3 trazadone prior to coming to hospital) - SURGICAL HISTORY Hx Cholecystectomy: Yes - ANESTHESIA Hx Anesthesia: Yes Hx Anesthesia Reactions: No Hx Malignant Hyperthermia: No Meds Allergies/Adverse Reactions: Allergies Allergy/AdvReac Type Severity Reaction Status Date / Time No Known Allergies Allergy Verified 09/05/18 18:04 Physical Exam - Constitutional Appears: No Acute Distress - Head Exam Head Exam: ATRAUMATIC - Eye Exam Eye Exam: Normal appearance Pupil Exam: NORMAL ACCOMODATION - ENT Exam ENT Exam: Mucous Membranes Moist - Neck Exam Neck exam: Positive for: Full Rom - Respiratory Exam Respiratory Exam: Decreased Breath Sounds - Cardiovascular Exam Cardiovascular Exam: REGULAR RHYTHM - GI/Abdominal Exam GI & Abdominal Exam: Normal Bowel Sounds - Exam Exam: NORMAL INSPECTION - Extremities Exam Additional comments: leg celulitis infected ulcer - Back Exam Back exam: NORMAL INSPECTION - Psychiatric Exam Psychiatric exam: Flat Affect - Skin Additional comments: leg ulcer Results - Vital Signs Recent Vital Signs: Last Vital Signs Temp 98.4 F 09/11/18 08:38 Pulse 109 H 09/11/18 08:38 Resp 20 09/11/18 08:38 BP 156/84 H 09/11/18 08:38 Pulse Ox 94 L 09/11/18 08:38 - Labs Result Diagrams: 09/10/18 20:35 09/10/18 20:35 Labs: Laboratory Results - last 24 hr 09/10/18 09/10/18 09/10/18 20:19 20:35 20:35 WBC 4.1 L RBC 3.30 L Hgb 11.8 L Hct 33.3 L MCV 100.9 H MCH 35.9 H MCHC 35.6 RDW 14.1 Plt Count 177 MPV 8.0 Neut % (Auto) 43.2 L Lymph % (Auto) 40.6 H [place] % (Auto) 13.1 H Eos % (Auto) 2.4 Baso % (Auto) 0.7 Neut # (Auto) 1.8 Lymph # (Auto) 1.7 [place] # (Auto) 0.5 Eos # (Auto) 0.1 Baso # (Auto) 0.0 Sodium 146 Potassium 4.2 Chloride 105 Carbon Dioxide 24 Anion Gap 22 H BUN 11 Creatinine 0.6 L Est GFR ( Amer) > 60 Est GFR (Non-Af Amer) > 60 POC Glucose (mg/dL) 85 Random Glucose 95 Calcium 9.3 Total Bilirubin 0.5 AST 99 H D ALT 30 Alkaline Phosphatase 82 Total Protein 8.8 H Albumin 4.2 Globulin 4.6 H Albumin/Globulin Ratio 0.9 L Phenytoin Valproic Acid Alcohol, Quantitative 09/10/18 09/10/18 09/10/18 20:35 20:46 20:46 WBC RBC Hgb Hct MCV MCH MCHC RDW Plt Count MPV Neut % (Auto) Lymph % (Auto) [place] % (Auto) Eos % (Auto) Baso % (Auto) Neut # (Auto) Lymph # (Auto) [place] # (Auto) Eos # (Auto) Baso # (Auto) Sodium Potassium Chloride Carbon Dioxide Anion Gap BUN Creatinine Est GFR ( Amer) Est GFR (Non-Af Amer) POC Glucose (mg/dL) Random Glucose Calcium Total Bilirubin AST ALT Alkaline Phosphatase Total Protein Albumin Globulin Albumin/Globulin Ratio Phenytoin < 3.0 L Valproic Acid < 10.0 L Alcohol, Quantitative 324 H 09/11/18 06:31 WBC RBC Hgb Hct MCV MCH MCHC RDW Plt Count MPV Neut % (Auto) Lymph % (Auto) [place] % (Auto) Eos % (Auto) Baso % (Auto) Neut # (Auto) Lymph # (Auto) [place] # (Auto) Eos # (Auto) Baso # (Auto) Sodium Potassium Chloride Carbon Dioxide Anion Gap BUN Creatinine Est GFR ( Amer) Est GFR (Non-Af Amer) POC Glucose (mg/dL) 74 Random Glucose Calcium Total Bilirubin AST ALT Alkaline Phosphatase Total Protein Albumin Globulin Albumin/Globulin Ratio Phenytoin Valproic Acid Alcohol, Quantitative Assessment & Plan - Assessment and Plan (Free Text) Assessment: leg ulcer infected seizers alc abuse Plan: as per orders - Date & Time Date: 09/11/18 Time: 11:11
--- NOTE | 2018-09-11 13:10 | RAD ---
Date of service: 09/10/2018 PROCEDURE: CHEST RADIOGRAPH, 1 VIEW HISTORY: seizure COMPARISON: Comparison is made with FINDINGS: LUNGS: Small bibasilar atelectasis are noted. PLEURA: No pneumothorax or pleural fluid seen. CARDIOVASCULAR: No aortic atherosclerotic calcification present. Normal. OSSEOUS STRUCTURES: No significant abnormalities. VISUALIZED UPPER ABDOMEN: Normal. OTHER FINDINGS: None. IMPRESSION: Small bibasilar atelectasis noted. Otherwise no interval change.
[2018-09-11 22:03] LABS: BARBITURATES, UR NEGATIVE (NEGATIVE); OPIATES, UR NEGATIVE (NEGATIVE); PHENCYCLIDINE, UR NEGATIVE (NEGATIVE)
[2018-09-11 22:07] LABS: BENZODIAZEPINES, UR POSITIVE (NEGATIVE)
--- NOTE | 2018-09-12 10:19 | CP.PCM.PN ---
Subjective - Date & Time of Evaluation Date of Evaluation: 09/12/18 Time of Evaluation: 10:16 - Subjective Subjective: pt seen and examined c/o of a;ot of pain both legs feels weeeke eats poorley vomiting Objective - Vital Signs/Intake and Output Vital Signs (last 24 hours): Temp Pulse Resp BP Pulse Ox 98.4 F 88 18 135/83 99 09/12/18 07:15 09/12/18 07:30 09/12/18 07:15 09/12/18 07:15 09/12/18 07:15 Intake and Output: 09/12/18 09/12/18 06:59 18:59 Intake Total 240 Output Total 1200 Balance -960 - Medications Medications: Current Medications Acetaminophen (Tylenol 325mg Tab) 650 mg PO Q6 PRN PRN Reason: Pain, moderate (4-7) Chlordiazepoxide (Librium) 25 mg PO Q6 [facility] Last Admin: 09/12/18 05:53 Dose: 25 mg Ceftriaxone Sodium 1 gm/ (Sodium Chloride) 100 mls @ 100 mls/hr IVPB DAILY [facility]; Protocol Last Admin: 09/12/18 09:15 Dose: 100 mls/hr Mupirocin (Bactroban Ointment) 1 gm TOP BID [facility] Last Admin: 09/12/18 09:15 Dose: 1 appl Phenytoin Sodium (Dilantin) 100 mg PO TID [facility] Last Admin: 09/12/18 09:14 Dose: 100 mg - Labs Labs: 09/10/18 20:35 09/10/18 20:35 - Constitutional Appears: Non-toxic - Head Exam Head Exam: ATRAUMATIC - Eye Exam Eye Exam: Normal appearance Pupil Exam: NORMAL ACCOMODATION - ENT Exam ENT Exam: Normal Exam - Respiratory Exam Respiratory Exam: NORMAL BREATHING PATTERN - Cardiovascular Exam Cardiovascular Exam: REGULAR RHYTHM - GI/Abdominal Exam GI & Abdominal Exam: Tenderness, Normal Bowel Sounds - Rectal Exam Rectal Exam: Deferred - Exam External exam: NORMAL EXTERNAL EXAM - Back Exam Back Exam: NORMAL INSPECTION - Neurological Exam Neurological Exam: Alert, Awake Additional comments: ;eg ulcer infected - Psychiatric Exam Psychiatric exam: Normal Affect - Skin Skin Exam: Normal Color Assessment and Plan - Assessment and Plan (Free Text) Assessment: ac infected leg ulcers seizer disorder alc abuse Plan: cont as per orders
--- NOTE | 2018-09-13 11:32 | CP.PCM.PN ---
Subjective - Date & Time of Evaluation Date of Evaluation: 09/13/18 Time of Evaluation: 11:30 - Subjective Subjective: pt still has infected ulcers legs on iv antibiotics Objective - Vital Signs/Intake and Output Vital Signs (last 24 hours): Temp Pulse Resp BP Pulse Ox 98.1 F 82 18 130/89 98 09/13/18 07:00 09/13/18 07:34 09/13/18 07:00 09/13/18 07:00 09/13/18 07:00 Intake and Output: 09/13/18 09/13/18 06:59 18:59 Output Total 500 Balance -500 - Medications Medications: Current Medications Acetaminophen (Tylenol 325mg Tab) 650 mg PO Q6 PRN PRN Reason: Pain, moderate (4-7) Last Admin: 09/12/18 21:07 Dose: 650 mg Chlordiazepoxide (Librium) 25 mg PO Q6 [facility] Last Admin: 09/13/18 05:57 Dose: 25 mg Ceftriaxone Sodium 1 gm/ (Sodium Chloride) 100 mls @ 100 mls/hr IVPB DAILY [facility]; Protocol Last Admin: 09/13/18 09:32 Dose: 100 mls/hr Mupirocin (Bactroban Ointment) 1 gm TOP BID [facility] Last Admin: 09/13/18 09:33 Dose: 1 appl Phenytoin Sodium (Dilantin) 100 mg PO TID [facility] Last Admin: 09/13/18 09:32 Dose: 100 mg - Labs Labs: 09/10/18 20:35 09/10/18 20:35 - Constitutional Appears: Non-toxic - Head Exam Head Exam: NORMAL INSPECTION - Eye Exam Eye Exam: Normal appearance Pupil Exam: NORMAL ACCOMODATION - ENT Exam ENT Exam: Mucous Membranes Moist - Neck Exam Neck Exam: Normal Inspection - Respiratory Exam Respiratory Exam: Clear to Ausculation Bilateral - Cardiovascular Exam Cardiovascular Exam: REGULAR RHYTHM - GI/Abdominal Exam GI & Abdominal Exam: Normal Bowel Sounds - Exam Exam: NORMAL INSPECTION - Extremities Exam Extremities Exam: Tenderness Additional comments: infected ulcer - Back Exam Back Exam: NORMAL INSPECTION - Neurological Exam Neurological Exam: Alert, Oriented x3 - Skin Skin Exam: Normal Color, Pallor Assessment and Plan - Assessment and Plan (Free Text) Assessment: infected ulcers legs cont iv antibiotics podiatry consult Plan: as per orders
--- NOTE | 2018-09-13 12:32 | CP.PCM.CON ---
History of Present Illness - History of Present Illness History of Present Illness: 57 yo mal patient of Dr Uri Fajardo admitted with painful swelling of LLE RLE with blisters and cellulitis Hx ETOH seizures Review of Systems - Review of Systems All systems: reviewed and no additional remarkable complaints except - Constitutional Constitutional: As Per HPI - EENT Eyes: absent: As Per HPI, Blind Spots, Blurred Vision, Change in Vision, Decreased Night Vision, Diplopia, Discharge, Dry Eye, Exophthalmos, Floaters, Irritation, Itchy Eyes, Loss of Peripheral Vision, Pain, Photophobia, Requires Corrective Lenses, Sees Flashes, Spots in Vision, Tunnel Vision, Other Visual Disturbances, Loss of Vision, Other Ears: absent: As Per HPI, Decreased Hearing, Ear Discharge, Ear Pain, Tinnitus, Abnormal Hearing, Disequilibrium, Dizziness, Other Nose/Mouth/Throat: absent: As Per HPI, Epistaxis, Nasal Congestion, Nasal Dis charge, Nasal Obstruction, Nasal Trauma, Nose Pain, Post Nasal Drip, Sinus Pain, Sinus Pressure, Bleeding Gums, Change in Voice, Dental Pain, Dry Mouth, Dysphagia, Halitosis, Hoarsness, Lip Swelling, Mouth Lesions, Mouth Pain, Odynophagia, Sore Throat, Throat Swelling, Tongue Swelling, Facial Pain, Neck Pain, Neck Mass, Other - Cardiovascular Cardiovascular: absent: As Per HPI, Acrocyanosis, Chest Pain, Chest Pain at Rest, Chest Pain with Activity, Claudication, Diaphoresis, Dyspnea, Dyspnea on Exertion, Edema, Irregular Heart Rhythm, Pain Radiating to Arm/Neck/Jaw, Leg Edema, Leg Ulcers, Lightheadedness, Orthopnea, Palpitations, Paroxysmal Nocturnal Dyspnea, Pedal Edema, Radiating Pain, Rapid Heart Rate, Slow Heart Rate, Syncope, Other - Respiratory Respiratory: absent: As Per HPI, Cough, Dyspnea, Hemoptysis, Dyspnea on Exertion, Wheezing, Snoring, Stridor, Pain on Inspiration, Chest Congestion, Excessive Mucous Production, Change in Mucous Color, Pain with Coughing, Other - Gastrointestinal Gastrointestinal: absent: As Per HPI, Abdominal Pain, Belching, Bloating, Change in Bowel Habits, Change in Stool Character, Coffee Ground Emesis, Constipation, Cramping, Diarrhea, Dyspepsia, Dysphagia, Early Satiety, Excessive Flatus, Fecal Incontinence, Heartburn, Hematemesis, Hematochezia, Loose Stools, Melena, Nausea, Odynophagia, Temesmus, Vomiting, Other - Genitourinary Genitourinary: absent: As Per HPI, Change in Urinary Stream, Difficulty Urinating, Dysuria, Flank Pain, Hematuria, Pyuria, Nocturia, Urinary Incontinence, Urinary Frequency, Urinary Hesitance, Urinary Urgency, Voiding Freq/Small Amts, Freq UTI, Hx Renal/Bladder Calculi, Hx /Renal Surgery, Bladder Distension, Other - Musculoskeletal Musculoskeletal: As Per HPI - Integumentary Integumentary: As Per HPI - Neurological Neurological: absent: As Per HPI, Abnormal Gait, Abnormal Hearing, Abnormal Movements, Abnormal Speech, Behavioral Changes, Burning Sensations, Confusion, Convulsions, Disequilibrium, Dizziness, Numbness, Focal Weakness, Frequent Falls, Headaches, Lack of Coordination, Loss of Vision, Memory Loss, Paresthesias, Radicular Pain, Restless Legs, Sensory Deficit, Syncope, Tingling, Tremor, Vertigo, Weakness, Other Visual Disturbances, Other - Psychiatric Psychiatric: absent: As Per HPI, Abnormal Sleep Pattern, Anhedonia, Anxiety, Auditory Hallucinations, Behavioral Changes, Change in Appetite, Change in Libido, Confusion, Depression, Difficulty Concentrating, Hallucinations, H omicidal Ideation, Hopelessness, Irritability, Memory Loss, Mood Swings, Panic Attacks, Paranoia, Suicidal Ideation, Visual Hallucinations, Tactile Hallucinations, Other - Endocrine Endocrine: absent: As Per HPI, Change in Body Appearance, Change in Libido, Cold Intolorance, Deepening of Voice, Excessive Sweating, Fatigue, Flushing, Heat Intolorance, Increase in Ring/Shoe/Hat Size, Palpitations, Polydipsia, Polyphagia, Polyuria, Other - Hematologic/Lymphatic Hematologic: absent: As Per HPI, Easy Bleeding, Easy Bruising, Lymphadenopathy, Other Past Patient History - Infectious Disease Hx of Infectious Diseases: None - Past Medical History & Family History Past Medical History?: Yes - Past Social History Smoking Status: Never Smoked - CARDIAC Hx Hypertension: Yes - PULMONARY Hx Bronchitis: Yes - NEUROLOGICAL Hx Seizures: Yes - HEENT Hx HEENT Problems: No - RENAL Hx Chronic Kidney Disease: No - ENDOCRINE/METABOLIC Hx Diabetes Mellitus Type 2: Yes - INTEGUMENTARY Hx Dermatological Problems: Yes Hx Cellulitis: Yes (BLE with blisters) - MUSCULOSKELETAL/RHEUMATOLOGICAL Hx Arthritis: Yes Hx Rheumatoid Arthritis: Yes - GASTROINTESTINAL Hx Gall Bladder Disease: Yes (s/p cholecystectomy) Hx Gastritis: Yes - PSYCHIATRIC Hx Anxiety: Yes Hx Depression: Yes Hx Post Traumatic Stress Disorder: Yes Hx Substance Use: Yes (3 trazadone prior to coming to hospital) - SURGICAL HISTORY Hx Cholecystectomy: Yes - ANESTHESIA Hx Anesthesia: Yes Hx Anesthesia Reactions: No Hx Malignant Hyperthermia: No Meds Allergies/Adverse Reactions: Allergies Allergy/AdvReac Type Severity Reaction Status Date / Time No Known Allergies Allergy Verified 09/05/18 18:04 - Medications Medications: Current Medications Acetaminophen (Tylenol 325mg Tab) 650 mg PO Q6 PRN PRN Reason: Pain, moderate (4-7) Last Admin: 09/12/18 21:07 Dose: 650 mg Chlordiazepoxide (Librium) 25 mg PO Q6 [facility] Last Admin: 09/13/18 11:48 Dose: 25 mg Ceftriaxone Sodium 1 gm/ (Sodium Chloride) 100 mls @ 100 mls/hr IVPB DAILY [facility]; Protocol Last Admin: 09/13/18 09:32 Dose: 100 mls/hr Mupirocin (Bactroban Ointment) 1 gm TOP BID [facility] Last Admin: 09/13/18 09:33 Dose: 1 appl Phenytoin Sodium (Dilantin) 100 mg PO TID [facility] Last Admin: 09/13/18 09:32 Dose: 100 mg Physical Exam - Constitutional Appears: Chronically Ill - Head Exam Head Exam: ATRAUMATIC, NORMOCEPHALIC - Eye Exam Eye Exam: absent: Scleral icterus - ENT Exam ENT Exam: Mucous Membranes Dry - Neck Exam Neck exam: Negative for: Lymphadenopathy - Respiratory Exam Respiratory Exam: Decreased Breath Sounds - Cardiovascular Exam Cardiovascular Exam: REGULAR RHYTHM, +S1, +S2 - GI/Abdominal Exam GI & Abdominal Exam: Diminished Bowel Sounds, Soft. absent: Tenderness - Rectal Exam Rectal Exam: Deferred - Exam Exam: Uretheral Discharge - Extremities Exam Extremities exam: Positive for: calf tenderness, pedal edema, tenderness, pedal pulses present. Negative for: joint swelling, normal inspection Additional comments: swelling both legs with cellulitis and blisters - Back Exam Back exam: absent: CVA tenderness (L), CVA tenderness (R) - Neurological Exam Neurological exam: Alert, CN II-XII Intact, Oriented x3, Reflexes Normal - Psychiatric Exam Psychiatric exam: Depressed - Skin Skin Exam: Dry, Erythema Results - Vital Signs Recent Vital Signs: Last Vital Signs Temp 98.1 F 09/13/18 07:00 Pulse 82 09/13/18 07:34 Resp 18 09/13/18 07:00 BP 130/89 09/13/18 07:00 Pulse Ox 98 09/13/18 07:00 - Labs Result Diagrams: 09/10/18 20:35 09/10/18 20:35 Assessment & Plan (1) Alcohol abuse Status: Acute (2) Infected wound Status: Acute (3) Lower extremity cellulitis Status: Acute - Assessment and Plan (Free Text) Assessment: recc vascular eval cont iv antibiotics wound care eval await cultures
[2018-09-13] MEDS: Piperacill/Tazo 3.375gm in Dex 3.375 GM/50 ML BAG IVPB SCH ×2 (13:13→22:16)
--- NOTE | 2018-09-13 14:20 | CARD ---
APPROVED REPORT Date of service: 09/11/2018 EKG Measurement Heart [id number] <Conclusion> Normal sinus rhythm Prolonged QT Abnormal ECG
[2018-09-14] MEDS: Piperacill/Tazo 3.375gm in Dex 3.375 GM/50 ML BAG IVPB SCH ×3 (04:47→21:05)
[2018-09-14 09:11] LABS: BLOOD UREA NITROGEN 10 mg/dL (9-20); GFR NON-AFRICAN AMERICAN > 60
--- NOTE | 2018-09-14 11:52 | CP.PCM.PN ---
Subjective - Date & Time of Evaluation Date of Evaluation: 09/14/18 Time of Evaluation: 11:49 - Subjective Subjective: pt still c/o pain legs dry ulcers Objective - Vital Signs/Intake and Output Vital Signs (last 24 hours): Temp Pulse Resp BP Pulse Ox 98.4 F 101 H 20 149/95 H 96 09/14/18 07:00 09/14/18 08:00 09/14/18 07:00 09/14/18 07:00 09/14/18 07:00 - Medications Medications: Current Medications Acetaminophen (Tylenol 325mg Tab) 650 mg PO Q6 PRN PRN Reason: Pain, moderate (4-7) Last Admin: 09/12/18 21:07 Dose: 650 mg Chlordiazepoxide (Librium) 25 mg PO Q6 [facility] Last Admin: 09/14/18 05:16 Dose: 25 mg Piperacillin Sod/Tazobactam Sod (Zosyn 3.375 Gm Iv Premix) 3.375 gm in 50 mls @ 100 mls/hr IVPB Q8H [facility]; Protocol Last Admin: 09/14/18 04:47 Dose: 100 mls/hr Mupirocin (Bactroban Ointment) 1 gm TOP BID [facility] Last Admin: 09/14/18 09:30 Dose: 1 appl Phenytoin Sodium (Dilantin) 100 mg PO TID [facility] Last Admin: 09/14/18 09:30 Dose: 100 mg - Labs Labs: 09/10/18 20:35 09/14/18 08:42 - Constitutional Appears: Non-toxic - Head Exam Head Exam: NORMAL INSPECTION - Eye Exam Eye Exam: Normal appearance Pupil Exam: NORMAL ACCOMODATION - Neck Exam Neck Exam: Full ROM - Respiratory Exam Respiratory Exam: Clear to Ausculation Bilateral - Cardiovascular Exam Cardiovascular Exam: Tachycardia, REGULAR RHYTHM - GI/Abdominal Exam GI & Abdominal Exam: Normal Bowel Sounds - Extremities Exam Additional comments: has ulcers legs - Back Exam Back Exam: NORMAL INSPECTION - Skin Skin Exam: Pallor Assessment and Plan - Assessment and Plan (Free Text) Assessment: s/p alcohol withdrwal infected ulcers legs generalised weekness Plan: awaite olacement
[2018-09-15] MEDS: Piperacill/Tazo 3.375gm in Dex 3.375 GM/50 ML BAG IVPB SCH ×3 (06:37→20:14)
--- NOTE | 2018-09-15 19:17 | CP.PCM.PN ---
Subjective - Date & Time of Evaluation Date of Evaluation: 09/15/18 Time of Evaluation: 19:14 - Subjective Subjective: pt seen in bed doesnot walk unbalanced generalised weekness Objective - Vital Signs/Intake and Output Vital Signs (last 24 hours): Temp Pulse Resp BP Pulse Ox 98.2 F 111 H 20 153/96 H 96 09/15/18 15:00 09/15/18 15:00 09/15/18 15:00 09/15/18 15:00 09/15/18 15:00 - Medications Medications: Current Medications Acetaminophen (Tylenol 325mg Tab) 650 mg PO Q6 PRN PRN Reason: Pain, moderate (4-7) Last Admin: 09/14/18 23:12 Dose: 650 mg Chlordiazepoxide (Librium) 25 mg PO Q6 [facility] Last Admin: 09/15/18 18:12 Dose: 25 mg Piperacillin Sod/Tazobactam Sod (Zosyn 3.375 Gm Iv Premix) 3.375 gm in 50 mls @ 100 mls/hr IVPB Q8H [facility]; Protocol Last Admin: 09/15/18 12:48 Dose: 100 mls/hr Mupirocin (Bactroban Ointment) 1 gm TOP BID [facility] Last Admin: 09/15/18 18:15 Dose: 1 appl Phenytoin Sodium (Dilantin) 100 mg PO TID [facility] Last Admin: 09/15/18 18:12 Dose: 100 mg - Labs Labs: 09/10/18 20:35 09/14/18 08:42 - Constitutional Appears: Non-toxic - Head Exam Head Exam: NORMAL INSPECTION - Eye Exam Eye Exam: Normal appearance Pupil Exam: NORMAL ACCOMODATION - ENT Exam ENT Exam: Normal Exam - Neck Exam Neck Exam: Full ROM - Respiratory Exam Respiratory Exam: Clear to Ausculation Bilateral - Cardiovascular Exam Cardiovascular Exam: REGULAR RHYTHM - GI/Abdominal Exam GI & Abdominal Exam: Normal Bowel Sounds - Extremities Exam Additional comments: lower ext ulcers and infection - Back Exam Back Exam: NORMAL INSPECTION - Neurological Exam Neurological Exam: Abnormal Gait, Alert, Awake, Oriented x3 - Psychiatric Exam Psychiatric exam: Normal Affect Assessment and Plan - Assessment and Plan (Free Text) Assessment: s/p alc intoxication unbalanced gaite generalised weekness Plan: start pt awaite arrangement for rehab
[2018-09-16] MEDS: Piperacill/Tazo 3.375gm in Dex 3.375 GM/50 ML BAG IVPB SCH ×3 (03:46→20:05)
--- NOTE | 2018-09-16 05:43 | CON ---
DATE: 09/15/2018 REQUESTING PHYSICIAN: Beata Buck MD HISTORY OF PRESENT ILLNESS: This is a 57-year-old white male with a history of alcohol abuse and seizure disorder, seen at bedside, alert and oriented. He has bilateral lower extremity dressings. Upon removal, we see superficial ulceration and eschars about the lower extremity. Neurovascular status to the both feet are very good, palpable 2/4 dorsalis pedis and 2/4 tibialis posterior arteries of the lower extremities. There are some small eschars on the right anterior medial aspect of the lower leg and small lesions on the distal left lower leg. These will be cleansed with peroxide every 12 hours and IV antibiotic therapy. No surgical intervention at this time required. Lamonte Baig DPM
[2018-09-16] MEDS: Metoprolol Succinate 50 mg XL Tab PO ONE ×2 (08:30→09:08)
--- NOTE | 2018-09-16 08:46 | PCM.RRT ---
<Ana Paula Paige - Last Filed: 09/16/18 12:20> ACUTE DIALYSIS REGISTERED NURSE Nurses Assessment - Situation Date: 09/16/18 Time ACUTE DIALYSIS REGISTERED NURSE was called: 08:35 ACUTE DIALYSIS REGISTERED NURSE Location:: 6T Med/Surg ACUTE DIALYSIS REGISTERED NURSE Reason for Call: Change in Mental Status ACUTE DIALYSIS REGISTERED NURSE Called By: RN Plan - Assessment of Findings&Treatment Plan ACUTE DIALYSIS REGISTERED NURSE was called for change in mental status by RN. Upon arrival patient's vitals: B/P 152/107; HR 105; 97%RA. Patient was arousable to sternal rub and did follow commands. EKG was ordered and showed sinus tachycardia. Repeat vitals B/P 138/98, HR 106. Lethargy is most likely secondary to dehydration. Patient was given 500cc bolus of NS. The following labs were ordered: CBC, CMP, Mag, Phos, Dilantin, Lactic Acid. <Homar Fajardo - Last Filed: 09/19/18 22:48> ACUTE DIALYSIS REGISTERED NURSE Nurses Assessment - Vital Signs Vital Signs: Rapid Response Vital Sign Blood Pressure 121/80 Pulse Rate 92 Respiratory Rate 20 Temperature 98.1 F Oxygen Saturation 98 - Vital Signs at end of ACUTE DIALYSIS REGISTERED NURSE Vital Signs at end of ACUTE DIALYSIS REGISTERED NURSE: Rapid Response End Vital Sign Blood Pressure 126/87 Pulse Rate 97 Respiratory Rate 12 Temperature 97.8 F O2 Sat by Pulse Oximetry 100 Attending/Attestation - Attestation I have personally seen and examined this patient.: Yes I have fully participated in the care of the patient.: Yes I have reviewed all pertinent clinical information, including history, physical exam and plan: Yes
[2018-09-16] MEDS ORDERED: Sodium Chloride 0.9% 500 ML IV ONE (08:47)
[2018-09-16 09:14] LABS: BASO % 0.6 % (0.0-2.0); EOS # 0.2 K/uL (0.0-0.7); EOS % 3.7 % (0.0-4.0); HEMOGLOBIN 12.4 g/dL (12.0-18.0); LYMPH # 1.3 K/uL (1.0-4.3); LYMPH % 25.1 % (20.0-40.0); MEAN CELL VOLUME 100.9 fL (80.0-94.0); MEAN CORPUSCULAR HEMOGLOBIN 34.9 pg (27.0-31.0); MEAN CORPUSCULAR HGB CONC 34.6 g/dL (33.0-37.0); MONO # 0.9 K/uL (0.0-0.8); MONO % 16.9 % (0.0-10.0); NEUT # 2.8 K/uL (1.8-7.0); NEUT % 53.7 % (50.0-75.0); NRBC % 0.2 % (0.0-2.0); RBC 3.55 Mil/uL (4.40-5.90); RED CELL DISTRIBUTION WIDTH 14.3 % (11.5-14.5); WHITE BLOOD COUNT 5.2 K/uL (4.8-10.8)
[2018-09-16 09:25] LABS: ALBUMIN 4.2 g/dL (3.5-5.0); ALT/SGPT 33 U/L (21-72); AST/SGOT 65 U/L (17-59); BLOOD UREA NITROGEN 14 mg/dL (9-20); CALCIUM 9.5 mg/dl (8.6-10.4); GFR NON-AFRICAN AMERICAN > 60
[2018-09-16] MEDS ORDERED: Vancomycin 1 gm/NS 200 ml 1 GM/200 ML BAG IVPB ONE (10:00)
[2018-09-16] MEDS: Metoprolol Succinate 50 mg XL Tab PO SCH (10:27)
--- NOTE | 2018-09-16 12:17 | CP.PCM.PN ---
Subjective - Date & Time of Evaluation Date of Evaluation: 09/16/18 Time of Evaluation: 12:15 - Subjective Subjective: pt awake alert oriented comfortale was lethargic earlier when he tooke librium no tremors no signs of withdrwal sny more will d/c librium Objective - Vital Signs/Intake and Output Vital Signs (last 24 hours): Temp Pulse Resp BP Pulse Ox 97.9 F 109 H 20 163/113 H 97 09/16/18 07:00 09/16/18 10:27 09/16/18 08:29 09/16/18 10:27 09/16/18 08:29 Intake and Output: 09/16/18 09/16/18 06:59 18:59 Intake Total 450 Output Total 600 Balance -150 - Medications Medications: Current Medications Acetaminophen (Tylenol 325mg Tab) 650 mg PO Q6 PRN PRN Reason: Pain, moderate (4-7) Last Admin: 09/15/18 20:12 Dose: 650 mg Piperacillin Sod/Tazobactam Sod (Zosyn 3.375 Gm Iv Premix) 3.375 gm in 50 mls @ 100 mls/hr IVPB Q8H [facility]; Protocol Last Admin: 09/16/18 12:10 Dose: 100 mls/hr Metoprolol Succinate (Toprol Xl) 50 mg PO DAILY [facility] Last Admin: 09/16/18 10:27 Dose: 50 mg Multivitamins/Minerals (Therapeutic-M Tab) 1 tab PO 0800 [facility] Mupirocin (Bactroban Ointment) 1 gm TOP BID [facility] Last Admin: 09/16/18 10:55 Dose: 1 appl Phenytoin Sodium (Dilantin) 100 mg PO TID [facility] Last Admin: 09/16/18 10:27 Dose: 100 mg - Labs Labs: 09/16/18 09:05 09/16/18 09:05 - Constitutional Appears: Non-toxic - Head Exam Head Exam: NORMAL INSPECTION - Eye Exam Eye Exam: Normal appearance Pupil Exam: NORMAL ACCOMODATION - ENT Exam ENT Exam: Mucous Membranes Moist - Neck Exam Neck Exam: Full ROM - Respiratory Exam Respiratory Exam: Clear to Ausculation Bilateral - Cardiovascular Exam Cardiovascular Exam: REGULAR RHYTHM - GI/Abdominal Exam GI & Abdominal Exam: Normal Bowel Sounds - Extremities Exam Additional comments: ulcers and no discarge - Back Exam Back Exam: NORMAL INSPECTION - Neurological Exam Neurological Exam: Abnormal Gait - Psychiatric Exam Psychiatric exam: Normal Affect - Skin Skin Exam: Normal Color Assessment and Plan - Assessment and Plan (Free Text) Assessment: pt s/p alc abuse a/c withdrwal improved unbalanced gaite leg ulcers dry Plan: will arrange for disch to [facility]
--- NOTE | 2018-09-16 12:49 | VASCLAB ---
Date of service: 09/15/2018 PROCEDURE: Lower Extremity Venous Duplex Exam. HISTORY: recurrent leg ulcers PRIORS: None. TECHNIQUE: Bilateral common femoral, femoral, popliteal and posterior tibial, peroneal and great saphenous veins were evaluated. Flow was assessed with color Doppler, compressibility, assessment of phasic flow and augmentation response. Report prepared by Fabián Ashraf, BS, RVT FINDINGS: RIGHT: 1. Common Femoral Vein: 1.1. Compressibility - Fully compressible: Thrombus - None : Flow - Phasic: Augmentation -Normal: Reflux - None. 2. Femoral Vein: 2.1. Compressibility - Fully compressible: Thrombus - None : Flow - Phasic: Augmentation -Normal: Reflux - None. 3. Popliteal Vein: 3.1. Compressibility - Fully compressible: Thrombus - None : Flow - Phasic: Augmentation -Normal: Reflux - None. 4. Posterior Tibial Vein: 4.1. Compressibility - Fully compressible: Thrombus - None: Flow - Phasic: Augmentation -Normal: Reflux - None. 5. Peroneal Vein: 5.1. Compressibility - Fully compressible: Thrombus - None: Flow - Phasic: Augmentation -Normal: Reflux - None. 6. Great Saphenous Vein: 6.1. Compressibility - Fully compressible: Thrombus - None: Flow - Phasic: Augmentation - Normal: Reflux - None. LEFT: 1. Common Femoral Vein: 1.1. Compressibility - Fully compressible: Thrombus - None: Flow - Phasic: Augmentation -Normal: Reflux - None. 2. Femoral Vein: 2.1. Compressibility - Fully compressible: Thrombus - None: Flow - Phasic: Augmentation -Normal: Reflux - None. 3. Popliteal Vein: 3.1. Compressibility - Fully compressible: Thrombus - None : Flow - Phasic: Augmentation -Normal: Reflux - None. 4. Posterior Tibial Vein: 4.1. Compressibility - Fully compressible: Thrombus - None: Flow - Phasic: Augmentation -Normal: Reflux - None. 5. Peroneal Vein: 5.1. Compressibility - Fully compressible: Thrombus - None: Flow - Phasic: Augmentation -Normal: Reflux - None. 6. Great Saphenous Vein: 6.1. Compressibility - Fully compressible: Thrombus - None: Flow - Phasic: Augmentation - Normal: Reflux - None. OTHER FINDINGS: Right: None significant. Left: None significant. IMPRESSION: Right: No evidence of deep or superficial vein thrombosis of the right lower extremity. Normal valve function noted of the right side. Left: No evidence of deep or superficial vein thrombosis of the left lower extremity. Normal valve function noted of the left side.
[2018-09-17] MEDS: Piperacill/Tazo 3.375gm in Dex 3.375 GM/50 ML BAG IVPB SCH ×3 (04:45→21:38)
[2018-09-17] MEDS: Multivitamin With Minerals Tab PO SCH (08:52)
--- NOTE | 2018-09-17 10:07 | CP.PCM.PCO ---
Physician Communication Note - Physician Communication Note Physician Communication Note: Pt has been in the hospital for a week. No need for detox admission now.
[2018-09-17] MEDS: Metoprolol Succinate 50 mg XL Tab PO SCH (10:24)
--- NOTE | 2018-09-17 10:52 | CP.PCM.PN ---
Subjective - Date & Time of Evaluation Date of Evaluation: 09/17/18 Time of Evaluation: 10:50 - Subjective Subjective: pt still in bed unable to wlk unbalanced leg ulcers mor dry Objective - Vital Signs/Intake and Output Vital Signs (last 24 hours): Temp Pulse Resp BP Pulse Ox 98.6 F 94 H 18 142/93 H 97 09/17/18 07:15 09/17/18 07:15 09/17/18 07:15 09/17/18 07:15 09/17/18 07:15 Intake and Output: 09/17/18 09/17/18 06:59 18:59 Intake Total 60 Output Total 300 Balance -240 - Medications Medications: Current Medications Acetaminophen (Tylenol 325mg Tab) 650 mg PO Q6 PRN PRN Reason: Pain, moderate (4-7) Last Admin: 09/16/18 19:56 Dose: 650 mg Piperacillin Sod/Tazobactam Sod (Zosyn 3.375 Gm Iv Premix) 3.375 gm in 50 mls @ 100 mls/hr IVPB Q8H [facility]; Protocol Last Admin: 09/17/18 04:45 Dose: 100 mls/hr Metoprolol Succinate (Toprol Xl) 50 mg PO DAILY [facility] Last Admin: 09/17/18 10:24 Dose: 50 mg Multivitamins/Minerals (Therapeutic-M Tab) 1 tab PO 0800 [facility] Last Admin: 09/17/18 08:52 Dose: 1 tab Mupirocin (Bactroban Ointment) 1 gm TOP BID [facility] Last Admin: 09/17/18 10:26 Dose: 1 appl Phenytoin Sodium (Dilantin) 100 mg PO TID [facility] Last Admin: 09/17/18 10:22 Dose: 100 mg - Labs Labs: 09/16/18 09:05 09/16/18 09:05 - Neck Exam Neck Exam: Full ROM - Respiratory Exam Respiratory Exam: Clear to Ausculation Bilateral - Exam Exam: NORMAL INSPECTION - Extremities Exam Additional comments: ankle ulcersdressing on - Back Exam Back Exam: NORMAL INSPECTION - Neurological Exam Additional comments: unbalanced gaite - Psychiatric Exam Psychiatric exam: Normal Affect Assessment and Plan - Assessment and Plan (Free Text) Assessment: s/p alc abuse unbalanced gaite generalised weeekness will get pt then rehab
--- NOTE | 2018-09-17 11:59 | CP.PCM.PCO ---
Physician Communication Note - Physician Communication Note Physician Communication Note: patient needs 7 days of antibiotics - zozyn q 8 hr
--- NOTE | 2018-09-17 23:55 | CARD ---
APPROVED REPORT Date of service: 09/16/2018 EKG Measurement Heart [id number] <Conclusion> Sinus tachycardia Moderate voltage criteria for LVH, may be normal variant Borderline ECG
[2018-09-18] MEDS: Piperacill/Tazo 3.375gm in Dex 3.375 GM/50 ML BAG IVPB SCH ×3 (05:12→21:45)
[2018-09-18] MEDS: Multivitamin With Minerals Tab PO SCH (08:31)
[2018-09-18] MEDS ORDERED: Naloxone 0.4 mg/ml Inj (Adult) IVP ONE (11:00)
[2018-09-18] MEDS ORDERED: Naloxone 0.4 mg/ml Inj (Adult) ONE (11:05)
[2018-09-18 11:16] LABS: ABG ALLEN TEST POS; ARTERIAL BLOOD GAS HCO3 25.4 mmol/L (21-28); ARTERIAL BLOOD GAS O2 SAT 97.9 % (95-98); ARTERIAL BLOOD GAS PCO2 35 mm/Hg (35-45); ARTERIAL BLOOD GAS PH 7.45 (7.35-7.45); ARTERIAL BLOOD GAS PO2 78 mm/Hg (80-100); ARTERIAL BLOOD GAS TCO2 25.4 mmol/L (22-28)
[2018-09-18 11:21] LABS: BASO % 0.8 % (0.0-2.0); EOS # 0.2 K/uL (0.0-0.7); EOS % 4.2 % (0.0-4.0); HEMOGLOBIN 12.8 g/dL (12.0-18.0); LYMPH # 1.3 K/uL (1.0-4.3); LYMPH % 27.6 % (20.0-40.0); MEAN CELL VOLUME 100.7 fL (80.0-94.0); MEAN CORPUSCULAR HEMOGLOBIN 34.7 pg (27.0-31.0); MEAN CORPUSCULAR HGB CONC 34.5 g/dL (33.0-37.0); MEAN PLATELET VOLUME 8.1 fL (7.2-11.7); MONO # 0.9 K/uL (0.0-0.8); NEUT # 2.2 K/uL (1.8-7.0); NEUT % 47.4 % (50.0-75.0); NRBC % 0.1 % (0.0-2.0); RBC 3.68 Mil/uL (4.40-5.90); RED CELL DISTRIBUTION WIDTH 14.6 % (11.5-14.5); WHITE BLOOD COUNT 4.6 K/uL (4.8-10.8)
--- NOTE | 2018-09-18 11:50 | CT ---
Date of service: 09/18/2018 PROCEDURE: CT HEAD WITHOUT CONTRAST. HISTORY: AMS COMPARISON: Noncontrast head CT performed 08/29/18 TECHNIQUE: Axial computed tomography images were obtained through the head/brain without intravenous contrast. Radiation dose: Total exam DLP = 1243.09 mGy-cm. This CT exam was performed using one or more of the following dose reduction techniques: Automated exposure control, adjustment of the mA and/or kV according to patient size, and/or use of iterative reconstruction technique. FINDINGS: HEMORRHAGE: No intracranial hemorrhage. BRAIN: Diffuse atrophy with prominence of the ventricles and sulci noted. No mass effect or edema. Intracranial atherosclerosis. Scattered bilateral chronic appearing basal ganglia lacunar type infarcts. Scattered periventricular and subcortical white matter hypodensities, which are nonspecific, but often seen with chronic microvascular ischemic disease. Please note that MRI with diffusion imaging is more sensitive in the detection of acute ischemic event. VENTRICLES: No hydrocephalus. CALVARIUM: Unremarkable. PARANASAL SINUSES: Mucosal thickening of the maxillary sinuses bilaterally. Mild mucosal thickening of the ethmoid air cells. MASTOID AIR CELLS: Unremarkable as visualized. No inflammatory changes. OTHER FINDINGS: None. IMPRESSION: Generalized atrophy. Nonspecific white matter changes. Scattered chronic appearing bilateral basal ganglia lacunar type infarcts. Mucosal thickening of the bilateral maxillary sinuses; correlate for sinusitis.
[2018-09-18] MEDS: Metoprolol Succinate 50 mg XL Tab PO SCH (11:58)
[2018-09-18 12:01] LABS: ALB/GLOB RATIO 0.9 (1.0-2.1); ALBUMIN 4.2 g/dL (3.5-5.0); ALT/SGPT 34 U/L (21-72); AST/SGOT 63 U/L (17-59); BLOOD UREA NITROGEN 16 mg/dL (9-20); CALCIUM 9.6 mg/dl (8.6-10.4); GFR NON-AFRICAN AMERICAN > 60
[2018-09-18 12:12] LABS: CK-MB 0.46 ng/mL (0.0-3.38)
[2018-09-18 12:50] LABS: PROLACTIN 16.2 ng/mL (3.7-17.9)
--- NOTE | 2018-09-18 13:00 | RAD ---
Chest x-ray single frontal view HISTORY: Unresponsive. Comparison: 09/10/2018 FINDINGS: Mild venous congestion. Elevated right hemidiaphragm. Biapical pleural thickening with upper lobe granulomatous changes. Patchy increased markings in the right infrahilar region. Mild cardiomegaly. Degenerative changes in the spine and shoulders. Surgical clips in the right gisela abdomen. Impression: Mild venous congestion. Elevated right hemidiaphragm. Patchy increased markings in the right infrahilar region. Mild cardiomegaly. Degenerative changes in the spine and shoulders. Surgical clips in the right gisela abdomen.
--- NOTE | 2018-09-18 15:24 | PCM.RRT ---
ENTERPRISE APPLICATION ADMINISTRATOR Nurses Assessment - Situation Date: 09/18/18 Time ENTERPRISE APPLICATION ADMINISTRATOR was called: 10:53 ENTERPRISE APPLICATION ADMINISTRATOR Responder Arrival Time:: 10:55 ENTERPRISE APPLICATION ADMINISTRATOR Location:: T Med/Surg Room Number: 661B ENTERPRISE APPLICATION ADMINISTRATOR Reason for Call: Change in Mental Status ENTERPRISE APPLICATION ADMINISTRATOR Called By: RN - IV IV Inserted during ENTERPRISE APPLICATION ADMINISTRATOR?: No - Respiratory ENTERPRISE APPLICATION ADMINISTRATOR Delivery Method: Room Air Received Nebulizer Treatments: No Was the Patient Ventilated with Bag/Mask 100% O2?: No Secretions Suctioned?: No Was the Patient Intubated?: No Was the Patient Placed on a Ventilator?: No - Medication Medications Administered During ENTERPRISE APPLICATION ADMINISTRATOR: Narcan 0.4 IVP - Diagnostic Test Ordered EKG: Yes Chest X-Ray: Yes CT Scan: Yes Other Diagnostic Test Ordered: Head - Stat Labs Ordered ENTERPRISE APPLICATION ADMINISTRATOR Stat Labs Ordered: CBC, BMP, TROPONIN, ABG CPR started during ENTERPRISE APPLICATION ADMINISTRATOR?: No - Vital Signs Vital Signs: Rapid Response Vital Sign Blood Pressure 144/76 Pulse Rate 101 Respiratory Rate 20 Temperature 97.6 F Oxygen Saturation 98 - [place] Coma Scale Coma Scale Eye Opening: Spontaneous Coma Scale Motor: None Coma Scale Verbal: No response Coma Scale Total: 6 - Time ENTERPRISE APPLICATION ADMINISTRATOR Ended Time ENTERPRISE APPLICATION ADMINISTRATOR Ended: 09:10 - Vital Signs at end of ENTERPRISE APPLICATION ADMINISTRATOR Vital Signs at end of ENTERPRISE APPLICATION ADMINISTRATOR: Rapid Response End Vital Sign Blood Pressure 126/87 Pulse Rate 97 Respiratory Rate 12 Temperature 97.8 F O2 Sat by Pulse Oximetry 96 - Recommendations Notifications: Attending Physician I.Reason for ENTERPRISE APPLICATION ADMINISTRATOR - A) Acute Change in Patient: (Select all that apply): Acute change in mental status - Respiratory Oxygen Delivery Method: Room Air Plan - Assessment of Findings&Treatment Plan BP 121/80 hr 89, O2 98 , t 98.1 Pt unresponsive as per nursing, now can respoind limited verbally can give his name and location NC continuous 2L o2 delivery Pt does not follow up w/ neurology Dr Paris consulted, pending recs possible absence seizure,
--- NOTE | 2018-09-18 15:41 | PCM.RRT ---
<Cedric Jiménez - Last Filed: 09/18/18 15:41> SAMPLE WASHER Nurses Assessment - Situation Date: 09/18/18 Time SAMPLE WASHER was called: 15:39 SAMPLE WASHER Responder Arrival Time:: 15:39 SAMPLE WASHER Location:: Med/Surg Room Number: 661B SAMPLE WASHER Reason for Call: Change in Mental Status SAMPLE WASHER Called By: Physician - IV IV Inserted during SAMPLE WASHER?: No - Respiratory SAMPLE WASHER Delivery Method: Nasal Cannula @L/min, Intubated Received Nebulizer Treatments: No Was the Patient Ventilated with Bag/Mask 100% O2?: Yes Secretions Suctioned?: Yes Was the Patient Intubated?: Yes Was the Patient Placed on a Ventilator?: No (transferred to ICU for further management) - Diagnostic Test Ordered EKG: No Chest X-Ray: Yes Other Diagnostic Test Ordered: Head - Stat Labs Ordered SAMPLE WASHER Stat Labs Ordered: LACTIC ACID, ABG CPR started during SAMPLE WASHER?: No - Vital Signs Vital Signs: Rapid Response Vital Sign Blood Pressure 144/76 Pulse Rate 101 Respiratory Rate 20 Temperature 97.6 F Oxygen Saturation 98 - Annalisa Coma Scale Coma Scale Eye Opening: To pain Coma Scale Verbal: Incomprehensible speech - Time SAMPLE WASHER Ended Time SAMPLE WASHER Ended: 09:10 - Recommendations 5) SAMPLE WASHER Level of Care Recommendations: Transfer to ICU Notifications: Attending Physician I.Reason for SAMPLE WASHER - A) Acute Change in Patient: (Select all that apply): Acute change in mental status - Neurological Status (Select all that apply): Lethargic, Weakness. absent: Alert, Responsive, Oriented, Verbal, Follows Commands, Aggressive - Respiratory Oxygen Delivery Method: Room Air - Constitutional Appears: In Acute Distress - Head Head Exam: NORMAL INSPECTION, NORMOCEPHALIC - Eyes Eye Exam: EOMI, Normal appearance. absent: Nystagmus, Scleral icterus - Cardiovascular Exam Cardiovascular Exam: REGULAR RHYTHM, +S1, +S2. absent: Tachycardia - GI/Abdominal Exam GI & Abdominal Exam: Soft, Normal Bowel Sounds. absent: Distended, Firm, Guarding, Rigid, Tenderness - Neurological Exam Neurological Exam: absent: Alert, Awake, Oriented x3 - Extremities Exam Extremities Exam: Normal Inspection. absent: Calf Tenderness, Pedal Edema Plan - Assessment of Findings&Treatment Plan Multiple SAMPLE WASHER were called for patient due to acute changes in mental status. Prior legislators interventions included CT head (normal), CBC & CMP (normal), and neurology consult was placed. GCS initially was 8 however patient was witnessed to have active seizure. ICU doctor was consulted who stated to give patient 9mg of Ativan. However, that high of a dosage cannot be done on the floors as stated by nursing staff. Patient recieved 2 mg Ativan, then 2mg Ativan, then 2mg Ativan, and finally 3 mg Ativan (3:41, 44, 47, 59). Another 2mg of Ativan (16:03) was ordered as patient continued to seize. Anesthesiology was stat paged overhead for intubation as patient continued to have seizure despite getting 6 mg of Ativan. Anasthesiology administered succinylcholine and patient was intubated. Patient was transferred to ICU. Blood pressure initially was 120/82 then 144/90 then 176/120 then 188/120. <Ana Rich V - Last Filed: 09/18/18 20:17> SAMPLE WASHER Nurses Assessment - Vital Signs Vital Signs: Rapid Response Vital Sign Blood Pressure 121/80 Pulse Rate 92 Respiratory Rate 20 Temperature 98.1 F Oxygen Saturation 98 - Vital Signs at end of SAMPLE WASHER Vital Signs at end of SAMPLE WASHER: Rapid Response End Vital Sign Blood Pressure 126/87 Pulse Rate 97 Respiratory Rate 12 Temperature 97.8 F O2 Sat by Pulse Oximetry 100 Attending/Attestation - Attestation I have personally seen and examined this patient.: Yes I have fully participated in the care of the patient.: Yes I have reviewed all pertinent clinical information, including history, physical exam and plan: Yes Notes (Text): This is a 58-year-old male history of chronic alcohol abuse and abuse, with underlying seizure disorder. Second rapid call for seizure today. Patient noted to be foaming at the mouth as well as clenching both upper extremities. Initial seizure had had resolved however mental status had not improved patient with GCS of 8 to GCS of 5. Patient required to be intubated in light given that the mental status change. Anesthesia was called to intubate. Patient received both etomidate and sex:. ICU was consult in light of possible status epilepticus recommended for Ativan 0.01 mg/kg for a total of Ativan 9 mg due to protocol on telemetry Trop of floor patient was given titrated Ativan 2 mg doses to follow up hold total 9 mg total body weight. Patient noted to be tearing on exam. Patient had completed CT test earlier for first rapid noting no acute change. Patient on Dilantin level I believe was 11.9. With primary neurologist on case Dr. Paris consulted by resident fluid updated him since the first rapid from before and if EEG. On EEG noted to be under on the neural hospitalist. Nor hospitalist was noted his notify in light of patient's recurrent seizure and possible status epilepticus. Patient transferred down to the ICU. Received her loading dose of Depakote 1 g and Keppra 1 g. Patient noted that needed Versed 5 mg 1 and Versed drip was held given the mental status had been improving but he patient is still not awake and alert enough there to his baseline patient no baseline is very docile is able to speak very well. Patient is frequent flyer in the emergency room comes in daily for chronic alcohol abuse. On a review of chart patient had blood per earlier today. No no hypokalemia mild hypoxia on ABG. Chest x-ray completed post intubation ET tube adjusted. Her neural hospitalist recommended for EEG for these 1 hour. Patient unable to 24-hour video EEG total tomorrow morning. Mom resident had notify patient's PMD Dr. Leo of events as well and that there is a plan for possible discharge today.
--- NOTE | 2018-09-18 16:06 | PCM.ANES ---
Anesthesia Emergent Intubation - Consult Reason for Consult:: seizures - Intubation Attempts Previous Number of Intubation Attempts:: 0 - Pre-Intubation Vital Signs Blood Pressure: 124/84 Heart Rate: 100 Respiratory Rate: 10 O2 Sat: 98 FIO2: 100 Oxygen Delivery Method: Ambu-Bag Level Of Consciousness: Somnolent Intubation Meds Given: Etomidate, Succinylcholine - Airway Management Oropharyngeal Area Suctioned: Yes (purelent secrestions) PreOxygenation: 100 (3min) Inhalation: No Rapid Sequence: Yes (rsi cricoid ) Cricoid Pressure: Yes (T.James) Possible Aspiration: Yes (undetermined ) - Method of Intubation Intubation Method: Oral ETT ETT Size: 7.5 Lipline@: 21 Easy: Yes (grade 3) Atramatic: Yes (multiple teeth noted to be broken craked chipped pre laryngosco py) - Intubation Devices Stephanie Blade Size Used: 4 Shana Forcepts Used: No [place] Scope Used: No Fiber Optic Scope: No - Placement Confirmation Breath Sounds Present & Equal Bilaterally: Yes Gurgling Sounds Not Audible at Epigastrum: No Positive EtCO2: Yes Portable CXR: Yes (ordered) Recommendations: Ventilator, Chest X Ray, ABG - Post-Intubation Vital Signs Blood Pressure: 125/82 Heart Rate: 90 Respiratory Rate: 14 (manual ventil with RT) O2 Sat: 100 FIO2: 100
[2018-09-18] MEDS ORDERED: Phenytoin 250 mg/5 ml Inj IVP ONE (16:10)
[2018-09-18] MEDS ORDERED: levETIRAcetam 1,000 MG in Sodium Chloride 0.9% 100 ML IVPB ONE (16:12)
[2018-09-18] MEDS ORDERED: Propofol 10 mg/ml Inj (100 ml) IV SCH (16:15)
[2018-09-18] MEDS ORDERED: Midazolam 2 MG/2 ML VIAL IVP STA (16:16)
[2018-09-18] MEDS ORDERED: Midazolam 2 MG/2 ML VIAL ONE (16:24)
--- NOTE | 2018-09-18 16:37 | RAD ---
Date of service: 09/18/2018 HISTORY: s/p intubation COMPARISON: Comparison 09/18/2018 FINDINGS: In situ ETT, tip of which lies approximately 2.5 cm above kwasi. LUNGS: Poor inspiration with low lung volumes, crowded bronchovascular markings and minor bibasilar atelectasis PLEURA: No evidence of effusion or apparent pneumothorax CARDIOVASCULAR: Mild aortic atherosclerotic heart size upper limits calcification present. Heart size upper limits of normal. No pulmonary vascular congestion. OSSEOUS STRUCTURES: No significant abnormalities. VISUALIZED UPPER ABDOMEN: Normal. OTHER FINDINGS: None. IMPRESSION: Poor inspiration with low lung volumes, crowded bronchovascular markings and minor bibasilar atelectasis
[2018-09-18] MEDS: Midazolam 50 mg/10 ml 100 MG in Sodium Chloride 0.9% 80 ML IV SCH (16:43)
--- NOTE | 2018-09-18 17:02 | CP.PCM.CON ---
<Yohan Jung - Last Filed: 09/18/18 18:25> Meds Allergies/Adverse Reactions: Allergies Allergy/AdvReac Type Severity Reaction Status Date / Time No Known Allergies Allergy Verified 09/05/18 18:04 - Medications Medications: Current Medications Acetaminophen (Tylenol 325mg Tab) 650 mg PO Q6 PRN PRN Reason: Pain, moderate (4-7) Last Admin: 09/18/18 08:32 Dose: 650 mg Folic Acid (Folic Acid) 1 mg PO DAILY [facility] Last Admin: 09/18/18 11:58 Dose: 1 mg Piperacillin Sod/Tazobactam Sod (Zosyn 3.375 Gm Iv Premix) 3.375 gm in 50 mls @ 100 mls/hr IVPB Q8H [facility]; Protocol Last Admin: 09/18/18 14:03 Dose: 100 mls/hr Midazolam HCl 100 mg/ Sodium (Chloride) 100 mls @ 1.63 mls/hr IV .Q24H [facility]; Protocol Last Admin: 09/18/18 16:43 Dose: 0.02 mg/kg/hr, 1.63 mls/hr Levetiracetam 500 mg/ Sodium (Chloride) 105 mls @ 420 mls/hr IVPB Q12H [facility] Metoprolol Succinate (Toprol Xl) 50 mg PO DAILY [facility] Last Admin: 09/18/18 11:58 Dose: 50 mg Multivitamins/Minerals (Therapeutic-M Tab) 1 tab PO 0800 [facility] Last Admin: 09/18/18 08:31 Dose: 1 tab Mupirocin (Bactroban Ointment) 1 gm TOP BID [facility] Last Admin: 09/18/18 14:08 Dose: 1 appl Phenytoin (Dilantin) 100 mg IVP Q8H [facility] Thiamine HCl (Vitamin B1 Tab) 100 mg PO BID [facility] Last Admin: 09/18/18 11:58 Dose: 100 mg Results - Vital Signs Recent Vital Signs: Last Vital Signs Temp 97.5 F L 09/18/18 17:00 Pulse 100 H 09/18/18 16:08 Resp 10 L 09/18/18 16:08 BP 124/84 09/18/18 16:08 Pulse Ox 97 09/18/18 17:00 - Labs Result Diagrams: 09/18/18 11:18 09/18/18 11:18 Labs: Laboratory Results - last 24 hr 09/18/18 09/18/18 09/18/18 10:56 11:11 11:18 WBC 4.6 L RBC 3.68 L Hgb 12.8 Hct 37.1 MCV 100.7 H MCH 34.7 H MCHC 34.5 RDW 14.6 H Plt Count 155 MPV 8.1 Neut % (Auto) 47.4 L Lymph % (Auto) 27.6 [place] % (Auto) 20.0 H Eos % (Auto) 4.2 H Baso % (Auto) 0.8 Neut # (Auto) 2.2 Lymph # (Auto) 1.3 [place] # (Auto) 0.9 H Eos # (Auto) 0.2 Baso # (Auto) 0.0 Puncture Site Lra pCO2 35 pO2 78 L HCO3 25.4 ABG pH 7.45 ABG Total CO2 25.4 ABG O2 Saturation 97.9 ABG Base Excess 0.7 Ulises Test Pos ABG Potassium 3.9 A-a O2 Difference 28.0 Respiratory Index 0.4 Sodium 138.0 Chloride 106.0 Glucose 115 H Lactate 1.0 Vent Mode FiO2 21.0 PEEP Pressure Support Potassium Carbon Dioxide Anion Gap BUN Creatinine Est GFR ( Amer) Est GFR (Non-Af Amer) POC Glucose (mg/dL) 102 Random Glucose Calcium Phosphorus Magnesium Total Bilirubin AST ALT Alkaline Phosphatase Ammonia Total Creatine Kinase CK-MB (Mass) Troponin I Total Protein Albumin Globulin Albumin/Globulin Ratio Prolactin Arterial Blood Potassium 3.9 Phenytoin 09/18/18 09/18/18 09/18/18 11:18 11:18 15:22 WBC RBC Hgb Hct MCV MCH MCHC RDW Plt Count MPV Neut % (Auto) Lymph % (Auto) [place] % (Auto) Eos % (Auto) Baso % (Auto) Neut # (Auto) Lymph # (Auto) [place] # (Auto) Eos # (Auto) Baso # (Auto) Puncture Site pCO2 pO2 HCO3 ABG pH ABG Total CO2 ABG O2 Saturation ABG Base Excess Ulises Test ABG Potassium A-a O2 Difference Respiratory Index Sodium 137 Chloride 102 Glucose Lactate Vent Mode FiO2 PEEP Pressure Support Potassium 4.3 Carbon Dioxide 21 L Anion Gap 18 BUN 16 Creatinine 0.9 Est GFR ( Amer) > 60 Est GFR (Non-Af Amer) > 60 POC Glucose (mg/dL) 127 H Random Glucose 120 H Calcium 9.6 Phosphorus 5.1 H Magnesium 2.1 Total Bilirubin 0.5 AST 63 H ALT 34 Alkaline Phosphatase 70 Ammonia Total Creatine Kinase 50 L CK-MB (Mass) 0.46 Troponin I < 0.0120 Total Protein 8.9 H Albumin 4.2 Globulin 4.7 H Albumin/Globulin Ratio 0.9 L Prolactin 16.2 Arterial Blood Potassium Phenytoin 11.9 09/18/18 09/18/18 09/18/18 17:53 17:53 18:00 WBC RBC Hgb Hct MCV MCH MCHC RDW Plt Count MPV Neut % (Auto) Lymph % (Auto) [place] % (Auto) Eos % (Auto) Baso % (Auto) Neut # (Auto) Lymph # (Auto) [place] # (Auto) Eos # (Auto) Baso # (Auto) Puncture Site Lb pCO2 33 L pO2 129 H HCO3 23.6 ABG pH 7.43 ABG Total CO2 22.9 ABG O2 Saturation 99.6 H ABG Base Excess -1.7 Ulises Test Na ABG Potassium 4.3 A-a O2 Difference 79.0 Respiratory Index 0.6 Sodium 140.0 Chloride 109.0 H Glucose 119 H Lactate 1.6 Vent Mode Cpap FiO2 35.0 PEEP 5 Pressure Support 10 Potassium Carbon Dioxide Anion Gap BUN Creatinine Est GFR ( Amer) Est GFR (Non-Af Amer) POC Glucose (mg/dL) Random Glucose Calcium Phosphorus Magnesium Total Bilirubin AST ALT Alkaline Phosphatase Ammonia 21 D Total Creatine Kinase CK-MB (Mass) Troponin I Total Protein Albumin Globulin Albumin/Globulin Ratio Prolactin Arterial Blood Potassium 4.3 Phenytoin 20.7 H Attending/Attestation - Attestation I have personally seen and examined this patient.: Yes I have fully participated in the care of the patient.: Yes I have reviewed all pertinent clinical information: Yes Notes (Text): 09/18/18 18:25 I have seen and examined the patient. Medical records, lab studies, and imaging were reviewed by me and a management plan was formulated on multidisciplinary rounds with resident Dr. Mo. I agree with their documented assessment and plan. Patient was intubated during rapid response for airway protection after becoming sedated s/p ativan administration for status epilepticus. Patient is already waking up now after being loaded with dilantin and keppra. Will not extubate until fully alert. EEG monitoring pending. Critical Care Time 35 minutes. Multi-disciplinary rounds were performed with house staff, nursing, speech therapy, respiratory therapy, pharmacy and nutrition with integrated input from the primary team/attending and other consulting services. The documented time is cumulative and includes review of patient data/exams/labs/chart review and examination of the patient on rounds and throughout the day; time is exclusive of any procedures or teaching time. <Channing Mo - Last Filed: 09/18/18 19:22> History of Present Illness - History of Present Illness History of Present Illness: PGY-1 ICU consult note for Dr. Jung Patient is a 58 year old male with PMH of seizures and alcohol abuse presenting with seizures. Two rapid responses were called today, once for altered mental status and another for seizures. Patient was witnessed to have an active seizure. Patient's GCS was initially 8 and went down to 5. Patient received multiple doses of Ativan, with a total dose of 9mg. Anesthesiology was called and administered succinylcholine and patient was intubated. Patient was transferred to ICU. Past Patient History - Infectious Disease Hx of Infectious Diseases: None - Past Medical History & Family History Past Medical History?: Yes - Past Social History Smoking Status: Never Smoked - CARDIAC Hx Hypertension: Yes - PULMONARY Hx Bronchitis: Yes - NEUROLOGICAL Hx Seizures: Yes - HEENT Hx HEENT Problems: No - RENAL Hx Chronic Kidney Disease: No - ENDOCRINE/METABOLIC Hx Diabetes Mellitus Type 2: Yes - INTEGUMENTARY Hx Dermatological Problems: Yes Hx Cellulitis: Yes (BLE with blisters) - MUSCULOSKELETAL/RHEUMATOLOGICAL Hx Arthritis: Yes Hx Rheumatoid Arthritis: Yes - GASTROINTESTINAL Hx Gall Bladder Disease: Yes (s/p cholecystectomy) Hx Gastritis: Yes - PSYCHIATRIC Hx Anxiety: Yes Hx Depression: Yes Hx Post Traumatic Stress Disorder: Yes Hx Substance Use: Yes (3 trazadone prior to coming to hospital) - SURGICAL HISTORY Hx Cholecystectomy: Yes - ANESTHESIA Hx Anesthesia: Yes Hx Anesthesia Reactions: No Hx Malignant Hyperthermia: No Meds - Medications Medications: Current Medications Acetaminophen (Tylenol 325mg Tab) 650 mg PO Q6 PRN PRN Reason: Pain, moderate (4-7) Last Admin: 09/18/18 08:32 Dose: 650 mg Folic Acid (Folic Acid) 1 mg PO DAILY [facility] Last Admin: 09/18/18 11:58 Dose: 1 mg Piperacillin Sod/Tazobactam Sod (Zosyn 3.375 Gm Iv Premix) 3.375 gm in 50 mls @ 100 mls/hr IVPB Q8H [facility]; Protocol Last Admin: 09/18/18 14:03 Dose: 100 mls/hr Midazolam HCl 100 mg/ Sodium (Chloride) 100 mls @ 1.63 mls/hr IV .Q24H [facility]; Protocol Last Admin: 09/18/18 16:43 Dose: 0.02 mg/kg/hr, 1.63 mls/hr Phenytoin 1,000 mg/ Sodium (Chloride) 270 mls @ 800 mls/hr IV ONCE ONE Stop: 09/18/18 17:20 Last Admin: 09/18/18 16:36 Dose: 800 mls/hr Metoprolol Succinate (Toprol Xl) 50 mg PO DAILY [facility] Last Admin: 09/18/18 11:58 Dose: 50 mg Multivitamins/Minerals (Therapeutic-M Tab) 1 tab PO 0800 [facility] Last Admin: 09/18/18 08:31 Dose: 1 tab Mupirocin (Bactroban Ointment) 1 gm TOP BID [facility] Last Admin: 09/18/18 14:08 Dose: 1 appl Phenytoin Sodium (Dilantin) 100 mg PO Q8H [facility] Thiamine HCl (Vitamin B1 Tab) 100 mg PO BID [facility] Last Admin: 09/18/18 11:58 Dose: 100 mg Physical Exam - Constitutional Appears: No Acute Distress - Head Exam Head Exam: ATRAUMATIC, NORMOCEPHALIC - Eye Exam Eye Exam: EOMI, Normal appearance - ENT Exam ENT Exam: Mucous Membranes Moist - Respiratory Exam Respiratory Exam: Clear to Auscultation Bilateral. absent: Rales, Rhonchi, Wheezes, Respiratory Distress - Cardiovascular Exam Cardiovascular Exam: REGULAR RHYTHM, +S1, +S2. absent: Gallop, Rubs - GI/Abdominal Exam GI & Abdominal Exam: Normal Bowel Sounds, Soft. absent: Guarding, Tenderness - Extremities Exam Extremities exam: Positive for: normal inspection. Negative for: calf tenderness - Neurological Exam Neurological exam: Altered, CN II-XII Intact - Psychiatric Exam Psychiatric exam: Anxious - Skin Skin Exam: Dry, Intact, Normal Color, Warm Results - Vital Signs Recent Vital Signs: Last Vital Signs Temp 97.6 F 09/18/18 07:17 Pulse 100 H 09/18/18 16:08 Resp 10 L 09/18/18 16:08 BP 124/84 09/18/18 16:08 Pulse Ox 98 09/18/18 16:08 - Labs Result Diagrams: 09/18/18 11:18 09/18/18 11:18 Labs: Laboratory Results - last 24 hr 09/18/18 09/18/18 09/18/18 10:56 11:11 11:18 WBC 4.6 L RBC 3.68 L Hgb 12.8 Hct 37.1 MCV 100.7 H MCH 34.7 H MCHC 34.5 RDW 14.6 H Plt Count 155 MPV 8.1 Neut % (Auto) 47.4 L Lymph % (Auto) 27.6 [place] % (Auto) 20.0 H Eos % (Auto) 4.2 H Baso % (Auto) 0.8 Neut # (Auto) 2.2 Lymph # (Auto) 1.3 [place] # (Auto) 0.9 H Eos # (Auto) 0.2 Baso # (Auto) 0.0 Puncture Site Lra pCO2 35 pO2 78 L HCO3 25.4 ABG pH 7.45 ABG Total CO2 25.4 ABG O2 Saturation 97.9 ABG Base Excess 0.7 Ulises Test Pos ABG Potassium 3.9 A-a O2 Difference 28.0 Respiratory Index 0.4 Sodium 138.0 Chloride 106.0 Glucose 115 H Lactate 1.0 FiO2 21.0 Potassium Carbon Dioxide Anion Gap BUN Creatinine Est GFR ( Amer) Est GFR (Non-Af Amer) POC Glucose (mg/dL) 102 Random Glucose Calcium Phosphorus Magnesium Total Bilirubin AST ALT Alkaline Phosphatase Total Creatine Kinase CK-MB (Mass) Troponin I Total Protein Albumin Globulin Albumin/Globulin Ratio Prolactin Arterial Blood Potassium 3.9 Phenytoin 09/18/18 09/18/18 11:18 11:18 WBC RBC Hgb Hct MCV MCH MCHC RDW Plt Count MPV Neut % (Auto) Lymph % (Auto) [place] % (Auto) Eos % (Auto) Baso % (Auto) Neut # (Auto) Lymph # (Auto) [place] # (Auto) Eos # (Auto) Baso # (Auto) Puncture Site pCO2 pO2 HCO3 ABG pH ABG Total CO2 ABG O2 Saturation ABG Base Excess Ulises Test ABG Potassium A-a O2 Difference Respiratory Index Sodium 137 Chloride 102 Glucose Lactate FiO2 Potassium 4.3 Carbon Dioxide 21 L Anion Gap 18 BUN 16 Creatinine 0.9 Est GFR ( Amer) > 60 Est GFR (Non-Af Amer) > 60 POC Glucose (mg/dL) Random Glucose 120 H Calcium 9.6 Phosphorus 5.1 H Magnesium 2.1 Total Bilirubin 0.5 AST 63 H ALT 34 Alkaline Phosphatase 70 Total Creatine Kinase 50 L CK-MB (Mass) 0.46 Troponin I < 0.0120 Total Protein 8.9 H Albumin 4.2 Globulin 4.7 H Albumin/Globulin Ratio 0.9 L Prolactin 16.2 Arterial Blood Potassium Phenytoin 11.9 Assessment & Plan - Assessment and Plan (Free Text) Assessment: Patient is a 58 year old male with PMH of seizures and alcohol abuse, admitted to ICU for status epilepticus. Plan: Neuro: Status epilepticus - Neurology consulted, Dr. Nicole - Phenytoin 100 mg IV TID - Keppra 500mg IV BID - Midazolam drip Hx of Alcohol abuse - Folic acid, thiamine, MV - Psychiatry consulted, Dr. Cortes HTN - Metoprolol Succinate 50mg PO QD Respiratory: Respiratory distress - Patient is intubated on CPAP - ABG: pO2 129, pCO2 33, pH 7.43 - Continue to monitor GI: - NPO Renal: - No acute issues Endo: - No acute issues ID: Bilateral leg cellulitis/ulcers - Zosyn 3.375g IV Q8 (Started on 09/13) - Mupirocin ointment - ID consulted, Dr. Huang - Podiatry consulted, Dr. Blanco Prophylaxis: - Contraindication to VTE prophylaxis due to recent GI bleed - Contraindication to SCD's due to leg cellulitis Case discussed with Dr. Erich Mo, PGY-1
--- NOTE | 2018-09-18 17:52 | CP.PCM.PN ---
Subjective - Date & Time of Evaluation Date of Evaluation: 09/18/18 Time of Evaluation: 17:50 - Subjective Subjective: pt had seizers today entubated transfered to icu Objective - Vital Signs/Intake and Output Vital Signs (last 24 hours): Temp Pulse Resp BP Pulse Ox 97.5 F L 100 H 10 L 124/84 97 09/18/18 17:00 09/18/18 16:08 09/18/18 16:08 09/18/18 16:08 09/18/18 17:00 Intake and Output: 09/18/18 09/18/18 06:59 18:59 Intake Total 160 Output Total 400 Balance -240 - Medications Medications: Current Medications Acetaminophen (Tylenol 325mg Tab) 650 mg PO Q6 PRN PRN Reason: Pain, moderate (4-7) Last Admin: 09/18/18 08:32 Dose: 650 mg Folic Acid (Folic Acid) 1 mg PO DAILY [facility] Last Admin: 09/18/18 11:58 Dose: 1 mg Piperacillin Sod/Tazobactam Sod (Zosyn 3.375 Gm Iv Premix) 3.375 gm in 50 mls @ 100 mls/hr IVPB Q8H [facility]; Protocol Last Admin: 09/18/18 14:03 Dose: 100 mls/hr Midazolam HCl 100 mg/ Sodium (Chloride) 100 mls @ 1.63 mls/hr IV .Q24H [facility]; Protocol Last Admin: 09/18/18 16:43 Dose: 0.02 mg/kg/hr, 1.63 mls/hr Levetiracetam 500 mg/ Sodium (Chloride) 105 mls @ 420 mls/hr IVPB Q12H [facility] Metoprolol Succinate (Toprol Xl) 50 mg PO DAILY [facility] Last Admin: 09/18/18 11:58 Dose: 50 mg Multivitamins/Minerals (Therapeutic-M Tab) 1 tab PO 0800 [facility] Last Admin: 09/18/18 08:31 Dose: 1 tab Mupirocin (Bactroban Ointment) 1 gm TOP BID [facility] Last Admin: 09/18/18 14:08 Dose: 1 appl Phenytoin (Dilantin) 100 mg IVP Q8H [facility] Thiamine HCl (Vitamin B1 Tab) 100 mg PO BID [facility] Last Admin: 09/18/18 11:58 Dose: 100 mg - Labs Labs: 09/18/18 11:18 09/18/18 11:18 - Constitutional Appears: In Acute Distress - Head Exam Head Exam: ATRAUMATIC - Eye Exam Eye Exam: Normal appearance - ENT Exam ENT Exam: Mucous Membranes Moist - Respiratory Exam Respiratory Exam: Decreased Breath Sounds - Cardiovascular Exam Cardiovascular Exam: REGULAR RHYTHM - GI/Abdominal Exam GI & Abdominal Exam: Normal Bowel Sounds - Exam Exam: NORMAL INSPECTION - Extremities Exam Extremities Exam: Normal Inspection - Back Exam Back Exam: NORMAL INSPECTION - Skin Skin Exam: Pallor Assessment and Plan - Assessment and Plan (Free Text) Assessment: ac seizer on ventilator cont as per orders
[2018-09-18 18:04] LABS: ARTERIAL BLOOD GAS HCO3 23.6 mmol/L (21-28); ARTERIAL BLOOD GAS O2 SAT 99.6 % (95-98); ARTERIAL BLOOD GAS PCO2 33 mm/Hg (35-45); ARTERIAL BLOOD GAS PH 7.43 (7.35-7.45); ARTERIAL BLOOD GAS PO2 129 mm/Hg (80-100); ARTERIAL BLOOD GAS TCO2 22.9 mmol/L (22-28)
--- NOTE | 2018-09-18 20:06 | CP.PCM.PN ---
Subjective - Date & Time of Evaluation Date of Evaluation: 09/18/18 Time of Evaluation: 08:00 - Subjective Subjective: seen in ICU now intubated sedated s/p seizure Objective - Vital Signs/Intake and Output Vital Signs (last 24 hours): Temp Pulse Resp BP Pulse Ox 97.5 F L 100 H 10 L 124/84 97 09/18/18 17:00 09/18/18 16:08 09/18/18 16:08 09/18/18 16:08 09/18/18 17:00 Intake and Output: 09/18/18 09/19/18 18:59 06:59 Intake Total 355 Output Total 400 Balance -45 - Medications Medications: Current Medications Acetaminophen (Tylenol 325mg Tab) 650 mg PO Q6 PRN PRN Reason: Pain, moderate (4-7) Last Admin: 09/18/18 08:32 Dose: 650 mg Folic Acid (Folic Acid) 1 mg PO DAILY [facility] Last Admin: 09/18/18 11:58 Dose: 1 mg Piperacillin Sod/Tazobactam Sod (Zosyn 3.375 Gm Iv Premix) 3.375 gm in 50 mls @ 100 mls/hr IVPB Q8H [facility]; Protocol Last Admin: 09/18/18 14:03 Dose: 100 mls/hr Midazolam HCl 100 mg/ Sodium (Chloride) 100 mls @ 1.63 mls/hr IV .Q24H [facility]; Protocol Last Titration: 09/18/18 17:10 Dose: 0 mg/kg/hr, 0 mls/hr Levetiracetam 500 mg/ Sodium (Chloride) 105 mls @ 420 mls/hr IVPB Q12H [facility] Metoprolol Succinate (Toprol Xl) 50 mg PO DAILY [facility] Last Admin: 09/18/18 11:58 Dose: 50 mg Multivitamins/Minerals (Therapeutic-M Tab) 1 tab PO 0800 [facility] Last Admin: 09/18/18 08:31 Dose: 1 tab Mupirocin (Bactroban Ointment) 1 gm TOP BID [facility] Last Admin: 09/18/18 19:15 Dose: 1 appl Phenytoin (Dilantin) 100 mg IVP Q8H [facility] Thiamine HCl (Vitamin B1 Tab) 100 mg PO BID [facility] Last Admin: 09/18/18 18:52 Dose: Not Given - Labs Labs: 09/18/18 11:18 09/18/18 11:18 - Constitutional Appears: Confused, Chronically Ill - Head Exam Head Exam: NORMOCEPHALIC - Eye Exam Eye Exam: absent: Scleral icterus - ENT Exam ENT Exam: Mucous Membranes Dry - Neck Exam Neck Exam: absent: Lymphadenopathy - Respiratory Exam Respiratory Exam: Decreased Breath Sounds - Cardiovascular Exam Cardiovascular Exam: REGULAR RHYTHM - GI/Abdominal Exam GI & Abdominal Exam: Distended, Soft - Rectal Exam Rectal Exam: Deferred - Exam Exam: NORMAL INSPECTION Assessment and Plan (1) Alcohol abuse Status: Acute (2) Infected wound Status: Acute (3) Lower extremity cellulitis Status: Acute - Assessment and Plan (Free Text) Assessment: cont iv rx as ordered
[2018-09-19] MEDS ORDERED: levETIRAcetam 500 MG in Sodium Chloride 0.9% 100 ML IVPB SCH (01:00)
--- NOTE | 2018-09-19 01:16 | CP.PCM.CON ---
History of Present Illness - History of Present Illness History of Present Illness: History Of Present Illness 57 year old male presents to the ED with alcohol intoxication. Patient had a seizure episode while in the ED. He admits to drinking earlier today. Patient denies suicidal/homicidal ideation. Chief Complaint (Nursing): Substance Abuse Alcohol abuse, Seizure disorder, Infected wound, Right leg pain, Lower extremity cellulitis History Per: Patient History/Exam Limitations: intoxication Onset/Duration Of Symptoms: Hrs Current Symptoms Are (Timing): Still Present Suicide/Self Injury Attempted (Context): None Modifying Factor(s): Alcohol Associated Symptoms: denies: Suicidal Thoughts, Suicidal Plan Involuntary Hold By: None Recent travel outside of the [place]: No Additional History Per: Patient Past Medical History Reviewed: Historical Data, Nursing Documentation, Vital Signs Vital Signs: Last Vital Signs Temp 98.2 F 09/10/18 20:10 Pulse 113 H 09/10/18 20:10 Resp 20 09/10/18 20:10 BP 141/82 09/10/18 20:10 Pulse Ox 97 09/10/18 20:10 - Medical History PMH: Anxiety, Arthritis, Bronchitis, CAD, Depression, Diabetes (Pt. 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, not aware), Fractures (RIGHT ARM), Gastritis, Gall Bladder Disease (s/p cholecystectomy), HTN, Post Traumatic Stress Disorder, Rheumatoid Arthritis, Seizures, Chronic Pain Denies: Chronic Kidney Disease Surgical History: Cholecystectomy - [facility] Procedures ALCOHOL DETOXIFICATION (07/04/15) APPLICATION OF SPLINT (03/20/13) CLOSURE SKIN & SUBCUTANEOUS NEC (08/14/13) DETOXIFICATION SERVICES FOR SUBSTANCE ABUSE TREATMENT (03/22/16) ESOPHAGOGASTRODUODENOSCOPY [EGD] W/CLOSED BIOPSY (02/16/15) OTHER GROUP THERAPY (03/12/13) PHYSICAL THERAPY NEC (07/04/15) TETANUS TOXOID ADMINIST (01/19/14) Family History: States: Unknown Family Hx - Social History Hx Tobacco Use: No Hx Alcohol Use: Yes Hx Substance Use: No - Immunization History Hx Tetanus Toxoid Vaccination: No Hx Influenza Vaccination: Yes Hx Pneumococcal Vaccination: Yes Review Of Systems Neurological: Positive for: Seizures Psych: Positive for: Other (EtOH intoxication ). Negative for: Suicidal ideation ECG Interpretation: Normal, No Acute Changes, Abnormal Interpretation Of ECG: NSR, prolonged QT interval Rate From EC O2 Sat by Pulse Oximetry: 97 (on RA) Pulse Ox Interpretation: Normal - Radiology CXR: Interpreted by Me, Viewed By Me CXR Interpretation: Yes: No Acute Disease. No: Infiltrates Progress Note: Bloodwork, CXR, EKG ordered and reviewed. Ativan IM, Toradol IVP and IV Fluids given. 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 It is better to stay on IV Dilantin and add a different medicine as Locosamide (Vimpat), Valproic Acid or Phenobarbital. LFT should be monitored as all these IV Medicine for seizures have a side effect on the the liver. If not we might use NG Topamax or NG Trileptal once the patient is stable and is not vomiting. IV Ativan or Propofol may be used or other Benzodiazepines or Vacuronium until seizures are Past Patient History - Infectious Disease Hx of Infectious Diseases: None - Past Medical History & Family History Past Medical History?: Yes - Past Social History Smoking Status: Never Smoked - CARDIAC Hx Hypertension: Yes - PULMONARY Hx Bronchitis: Yes - NEUROLOGICAL Hx Seizures: Yes - HEENT Hx HEENT Problems: No - RENAL Hx Chronic Kidney Disease: No - ENDOCRINE/METABOLIC Hx Diabetes Mellitus Type 2: Yes - INTEGUMENTARY Hx Dermatological Problems: Yes Hx Cellulitis: Yes (BLE with blisters) - MUSCULOSKELETAL/RHEUMATOLOGICAL Hx Arthritis: Yes Hx Rheumatoid Arthritis: Yes - GASTROINTESTINAL Hx Gall Bladder Disease: Yes (s/p cholecystectomy) Hx Gastritis: Yes - PSYCHIATRIC Hx Anxiety: Yes Hx Depression: Yes Hx Post Traumatic Stress Disorder: Yes Hx Substance Use: Yes (3 trazadone prior to coming to hospital) - SURGICAL HISTORY Hx Cholecystectomy: Yes - ANESTHESIA Hx Anesthesia: Yes Hx Anesthesia Reactions: No Hx Malignant Hyperthermia: No Meds Allergies/Adverse Reactions: Allergies Allergy/AdvReac Type Severity Reaction Status Date / Time No Known Allergies Allergy Verified 09/05/18 18:04 - Medications Medications: Current Medications Acetaminophen (Tylenol 325mg Tab) 650 mg PO Q6 PRN PRN Reason: Pain, moderate (4-7) Last Admin: 09/18/18 08:32 Dose: 650 mg Folic Acid (Folic Acid) 1 mg PO DAILY [facility] Last Admin: 09/18/18 11:58 Dose: 1 mg Piperacillin Sod/Tazobactam Sod (Zosyn 3.375 Gm Iv Premix) 3.375 gm in 50 mls @ 100 mls/hr IVPB Q8H [facility]; Protocol Last Admin: 09/18/18 21:45 Dose: 100 mls/hr Midazolam HCl 100 mg/ Sodium (Chloride) 100 mls @ 1.63 mls/hr IV .Q24H [facility]; Protocol Last Titration: 09/18/18 20:00 Dose: 0.02 mg/kg/hr, 2 mls/hr Levetiracetam 500 mg/ Sodium (Chloride) 105 mls @ 420 mls/hr IVPB Q12H [facility] Lorazepam (Ativan) 2 mg IVP Q4H PRN PRN Reason: Anxiety Last Admin: 09/18/18 22:25 Dose: 2 mg Metoprolol Succinate (Toprol Xl) 50 mg PO DAILY [facility] Last Admin: 09/18/18 11:58 Dose: 50 mg Multivitamins/Minerals (Therapeutic-M Tab) 1 tab PO 0800 [facility] Last Admin: 09/18/18 08:31 Dose: 1 tab Mupirocin (Bactroban Ointment) 1 gm TOP BID [facility] Last Admin: 09/18/18 19:15 Dose: 1 appl Phenytoin (Dilantin) 100 mg IVP Q8H [facility] Thiamine HCl (Vitamin B1 Tab) 100 mg PO BID [facility] Last Admin: 09/18/18 18:52 Dose: Not Given Physical Exam - Neurological Exam Additional comments: Intubated On IV Fluids He is on Posi strains due to his combativeness and his Psychosis MS Combative, positive eye to eye contact, following with his eyes. Cranial nerves II to XII: No Deficits Motor: Normal tone Moves both sides equally DTR absent or hard to elicit Toes are down going with plantar stimulation. Sensory: intact Touch and Pain Cerebellar: Unable to assess Stature and gait: Lying down in bed, strained, cannot stand or sit. Results - Vital Signs Recent Vital Signs: Last Vital Signs Temp 98.6 F 09/19/18 00:00 Pulse 97 H 09/19/18 00:00 Resp 19 09/19/18 00:00 BP 115/77 09/19/18 00:00 Pulse Ox 99 09/19/18 00:00 - Labs Result Diagrams: 09/22/18 06:22 09/22/18 06:16 Labs: Laboratory Results - last 24 hr 09/18/18 09/18/18 09/18/18 10:56 11:11 11:18 WBC 4.6 L RBC 3.68 L Hgb 12.8 Hct 37.1 MCV 100.7 H MCH 34.7 H MCHC 34.5 RDW 14.6 H Plt Count 155 MPV 8.1 Neut % (Auto) 47.4 L Lymph % (Auto) 27.6 Trimble % (Auto) 20.0 H Eos % (Auto) 4.2 H Baso % (Auto) 0.8 Neut # (Auto) 2.2 Lymph # (Auto) 1.3 Trimble # (Auto) 0.9 H Eos # (Auto) 0.2 Baso # (Auto) 0.0 Puncture Site Lra pCO2 35 pO2 78 L HCO3 25.4 ABG pH 7.45 ABG Total CO2 25.4 ABG O2 Saturation 97.9 ABG Base Excess 0.7 Ulises Test Pos ABG Potassium 3.9 A-a O2 Difference 28.0 Respiratory Index 0.4 Sodium 138.0 Chloride 106.0 Glucose 115 H Lactate 1.0 Vent Mode FiO2 21.0 PEEP Pressure Support Potassium Carbon Dioxide Anion Gap BUN Creatinine Est GFR ( Amer) Est GFR (Non-Af Amer) POC Glucose (mg/dL) 102 Random Glucose Calcium Phosphorus Magnesium Total Bilirubin AST ALT Alkaline Phosphatase Ammonia Total Creatine Kinase CK-MB (Mass) Troponin I Total Protein Albumin Globulin Albumin/Globulin Ratio Prolactin Arterial Blood Potassium 3.9 Phenytoin 09/18/18 09/18/18 09/18/18 11:18 11:18 15:22 WBC RBC Hgb Hct MCV MCH MCHC RDW Plt Count MPV Neut % (Auto) Lymph % (Auto) Trimble % (Auto) Eos % (Auto) Baso % (Auto) Neut # (Auto) Lymph # (Auto) Trimble # (Auto) Eos # (Auto) Baso # (Auto) Puncture Site pCO2 pO2 HCO3 ABG pH ABG Total CO2 ABG O2 Saturation ABG Base Excess Ulises Test ABG Potassium A-a O2 Difference Respiratory Index Sodium 137 Chloride 102 Glucose Lactate Vent Mode FiO2 PEEP Pressure Support Potassium 4.3 Carbon Dioxide 21 L Anion Gap 18 BUN 16 Creatinine 0.9 Est GFR ( Amer) > 60 Est GFR (Non-Af Amer) > 60 POC Glucose (mg/dL) 127 H Random Glucose 120 H Calcium 9.6 Phosphorus 5.1 H Magnesium 2.1 Total Bilirubin 0.5 AST 63 H ALT 34 Alkaline Phosphatase 70 Ammonia Total Creatine Kinase 50 L CK-MB (Mass) 0.46 Troponin I < 0.0120 Total Protein 8.9 H Albumin 4.2 Globulin 4.7 H Albumin/Globulin Ratio 0.9 L Prolactin 16.2 Arterial Blood Potassium Phenytoin 11.9 09/18/18 09/18/18 09/18/18 17:53 17:53 18:00 WBC RBC Hgb Hct MCV MCH MCHC RDW Plt Count MPV Neut % (Auto) Lymph % (Auto) Trimble % (Auto) Eos % (Auto) Baso % (Auto) Neut # (Auto) Lymph # (Auto) Trimble # (Auto) Eos # (Auto) Baso # (Auto) Puncture Site Lb pCO2 33 L pO2 129 H HCO3 23.6 ABG pH 7.43 ABG Total CO2 22.9 ABG O2 Saturation 99.6 H ABG Base Excess -1.7 Ulises Test Na ABG Potassium 4.3 A-a O2 Difference 79.0 Respiratory Index 0.6 Sodium 140.0 Chloride 109.0 H Glucose 119 H Lactate 1.6 Vent Mode Cpap FiO2 35.0 PEEP 5 Pressure Support 10 Potassium Carbon Dioxide Anion Gap BUN Creatinine Est GFR ( Amer) Est GFR (Non-Af Amer) POC Glucose (mg/dL) Random Glucose Calcium Phosphorus Magnesium Total Bilirubin AST ALT Alkaline Phosphatase Ammonia 21 D Total Creatine Kinase CK-MB (Mass) Troponin I Total Protein Albumin Globulin Albumin/Globulin Ratio Prolactin Arterial Blood Potassium 4.3 Phenytoin 20.7 H Assessment & Plan (1) Alcohol abuse Status: Chronic (2) Infected wound Assessment and Plan: receiving Antibiotics Status: Acute (3) Lower extremity cellulitis Assessment and Plan: Receiving Antibiotics. Status: Acute (4) Right leg pain Status: Acute (5) Seizure disorder Assessment and Plan: He developed a status epilecticus that was treated successfully. 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 It is better to stay on IV Dilantin and add a different medicine as Locosamide (Vimpat), Valproic Acid or Phenobarbital. LFT should be monitored as all these IV Medicine for seizures have a side effect on the the liver. If seizures are not controlled, we might use NG Topamax or NG Trileptal once the patient is stable and is not vomiting. IV Ativan or Propofol may be used or other Benzodiazepines or Vacuronium u ntil seizures are controlled. Status: Acute (6) Abdominal discomfort Status: Acute (7) CVA (cerebral vascular accident) Assessment and Plan: Unlikely, Negative CT Brain for acute CVA CT Brain shows Chronic infarcts in the basal ganglia IMPRESSION: Generalized atrophy. Nonspecific white matter changes. Scattered chronic appearing bilateral basal ganglia lacunar type infarcts. Mucosal thickening of the bilateral maxillary sinuses; correlate for sinusitis. Status: Acute
[2018-09-19] MEDS: Phenytoin 100 mg/2 ml Inj IVP SCH ×3 (01:35→17:51)
[2018-09-19] MEDS: Piperacill/Tazo 3.375gm in Dex 3.375 GM/50 ML BAG IVPB SCH ×3 (05:15→21:17)
[2018-09-19 06:13] LABS: ARTERIAL BLOOD GAS HCO3 24.2 mmol/L (21-28); ARTERIAL BLOOD GAS HEMOGLOBIN 12.4 g/dL (11.7-17.4); ARTERIAL BLOOD GAS O2 SAT 99.1 % (95-98); ARTERIAL BLOOD GAS PCO2 37 mm/Hg (35-45); ARTERIAL BLOOD GAS PH 7.41 (7.35-7.45); ARTERIAL BLOOD GAS PO2 96 mm/Hg (80-100); ARTERIAL BLOOD GAS TCO2 24.6 mmol/L (22-28)
[2018-09-19 06:41] LABS: MEAN CELL VOLUME 101.7 fL (80.0-94.0); MEAN CORPUSCULAR HEMOGLOBIN 35.6 pg (27.0-31.0); MEAN PLATELET VOLUME 8.7 fL (7.2-11.7); RBC 3.38 Mil/uL (4.40-5.90); WHITE BLOOD COUNT 6.9 K/uL (4.8-10.8)
[2018-09-19 07:03] LABS: ALBUMIN 4.3 g/dL (3.5-5.0); ALT/SGPT 38 U/L (21-72); AST/SGOT 66 U/L (17-59); BLOOD UREA NITROGEN 19 mg/dL (9-20); CALCIUM 9.3 mg/dl (8.6-10.4); GFR NON-AFRICAN AMERICAN > 60; URIC ACID 4.2 mg/dL (3.5-8.5)
[2018-09-19] MEDS: Multivitamin With Minerals Tab PO SCH (08:00)
--- NOTE | 2018-09-19 08:29 | CP.CCUPN ---
<Channing Mo - Last Filed: 09/19/18 12:22> CCU Subjective - Physician Review Subjective (Free Text): 09/19/18 09:31 Patient examined and seen at bedside. No acute events overnight. Patient is still intubated and resting comfortably. Plan to extubate patient today. Critical Care Time Spent (in minutes): 35 CCU Objective - Vital Signs / Intake & Output Vital Signs (Last 4 hours): Vital Signs Pulse Resp BP Pulse Ox 09/19/18 08:01 106 H 13 123/81 09/19/18 08:00 105 H 19 94 L 09/19/18 07:00 103 H 20 109/79 96 09/19/18 06:00 103 H 15 103/75 09/19/18 05:00 104 H 16 115/81 98 Intake and Output (Last 8hrs): Intake & Output 09/18/18 09/19/18 09/19/18 22:59 06:59 14:59 Intake Total 361 33 0 Output Total 400 200 Balance -39 -167 0 Weight 180 lb 173 lb 8 oz Intake: IV 5 20 Intake, IV Amount 356 13 0 Left Forearm 356 13 0 Oral 0 Output: Urine 400 200 Condom 0 200 Urine, Voided 400 - Physical Exam Head: Positive for: Atraumatic, Normocephalic Pupils: Positive for: PERRL Mouth: Positive for: Moist Mucous Membranes Respiratory/Chest: Positive for: Clear to Auscultation, Other (Patient is intubated). Negative for: Respiratory Distress, Accessory Muscle Use, Wheezes, Rales, Rhonchi Abdomen: Positive for: Normal Bowel Sounds. Negative for: Tenderness, Distention, Peritoneal Signs Upper Extremity: Positive for: Normal Inspection Lower Extremity: Positive for: Other (Bilateral lower legs dressing C/D/I) Skin: Positive for: Warm, Dry, Rashes, Normal Color, Other (Bilateral lower legs dressing C/D/I) - Medications Active Medications: Active Medications Generic Name Dose Route Start Last Admin Trade Name Freq PRN Reason Stop Dose Admin Acetaminophen 650 mg 09/12/18 10:14 09/18/18 08:32 Tylenol 325mg Tab PO 650 mg Q6 PRN Administration Pain, moderate (4-7) Folic Acid 1 mg 09/18/18 11:15 09/18/18 11:58 Folic Acid PO 1 mg DAILY MARISA Administration Piperacillin Sod/Tazobactam Sod 3.375 gm in 50 mls @ 100 mls/hr 09/13/18 12:45 09/19/18 05:15 Zosyn 3.375 Gm Iv Premix IVPB 100 mls/hr Q8H MARISA Administration Protocol Midazolam HCl 100 mg/ Sodium 100 mls @ 1.63 mls/hr 09/18/18 16:15 09/19/18 06:00 Chloride IV 0 mg/kg/hr .Q24H MARISA 0 mls/hr Titration Protocol 0.02 MG/KG/HR Lorazepam 2 mg 09/18/18 22:03 09/19/18 05:15 Ativan IVP 2 mg Q4H PRN Administration Anxiety Metoprolol Succinate 50 mg 09/16/18 10:00 09/18/18 11:58 Toprol Xl PO 50 mg DAILY MARISA Administration Multivitamins/Minerals 1 tab 09/17/18 08:00 09/18/18 08:31 Therapeutic-M Tab PO 1 tab 0800 MARISA Administration Mupirocin 1 gm 09/11/18 10:00 09/18/18 19:15 Bactroban Ointment TOP 1 appl BID MARISA Administration Phenytoin 100 mg 09/19/18 01:00 09/19/18 01:35 Dilantin IVP 100 mg Q8H MARISA Administration Thiamine HCl 100 mg 09/18/18 11:15 09/18/18 18:52 Vitamin B1 Tab PO Not Given BID MARISA - Patient Studies Lab Studies: Lab Studies 09/19/18 09/19/18 09/19/18 Range/Units 06:37 06:37 06:37 WBC (4.8-10.8) K/uL RBC (4.40-5.90) Mil/uL Hgb (12.0-18.0) g/dL Hct (35.0-51.0) % MCV (80.0-94.0) fL MCH (27.0-31.0) pg MCHC (33.0-37.0) g/dL RDW (11.5-14.5) % Plt Count (130-400) K/uL MPV (7.2-11.7) fL Neut % (Auto) (50.0-75.0) % Lymph % (Auto) (20.0-40.0) % [place] % (Auto) (0.0-10.0) % Eos % (Auto) (0.0-4.0) % Baso % (Auto) (0.0-2.0) % Neut # (Auto) (1.8-7.0) K/uL Lymph # (Auto) (1.0-4.3) K/uL [place] # (Auto) (0.0-0.8) K/uL Eos # (Auto) (0.0-0.7) K/uL Baso # (Auto) (0.0-0.2) K/uL Puncture Site pCO2 (35-45) mm/Hg pO2 (80-100) mm/Hg HCO3 (21-28) mmol/L ABG pH (7.35-7.45) ABG Total CO2 (22-28) mmol/L ABG O2 Saturation (95-98) % ABG Base Excess (-2.0-3.0) mmol/L ABG Hemoglobin (11.7-17.4) g/dL ABG Carboxyhemoglobin (0.5-1.5) % POC ABG HHb (Measured) (0.0-5.0) % ABG Methemoglobin (0.0-3.0) % Ulises Test ABG Potassium (3.6-5.2) mmol/L A-a O2 Difference mm/Hg Respiratory Index Hgb O2 Saturation (95.0-98.0) % Sodium (132-148) mmol/l Chloride (98-107) mmol/L Glucose (75-110) mg/dl Lactate (0.7-2.1) mmol/L Vent Mode Mechanical Rate FiO2 % Tidal Volume PEEP Pressure Support Potassium (3.6-5.2) mmol/L Carbon Dioxide (22-30) mmol/L Anion Gap (10-20) BUN (9-20) mg/dL Creatinine (0.8-1.5) mg/dL Est GFR ( Amer) Est GFR (Non-Af Amer) POC Glucose (mg/dL) (65-110) mg/dL Random Glucose (75-110) mg/dL Uric Acid (3.5-8.5) mg/dL Calcium (8.6-10.4) mg/dl Phosphorus (2.5-4.5) mg/dL Magnesium (1.6-2.3) mg/dL Total Bilirubin (0.2-1.3) mg/dL AST (17-59) U/L ALT (21-72) U/L Alkaline Phosphatase (38-126) U/L Ammonia (9-33) umol/L Total Creatine Kinase (55-170) U/L CK-MB (Mass) (0.0-3.38) ng/mL Troponin I (0.00-0.120) ng/mL Total Protein (6.3-8.3) g/dL Albumin (3.5-5.0) g/dL Globulin (2.2-3.9) gm/dL Albumin/Globulin Ratio (1.0-2.1) Triglycerides 82 D (0-149) mg/dL Cholesterol 176 (0-199) mg/dL LDL Cholesterol Direct 110 (0-129) mg/dL HDL Cholesterol 47 (30-70) mg/dL 25-OH Vitamin D Total 27.2 L (30.0-100.0) NG/ML Prolactin (3.7-17.9) ng/mL Arterial Blood Potassium (3.6-5.2) mmol/L Phenytoin 22.7 H (10-20) ug/mL 09/19/18 09/19/18 09/19/18 Range/Units 06:37 06:37 05:13 WBC 6.9 (4.8-10.8) K/uL RBC 3.38 L (4.40-5.90) Mil/uL Hgb 12.0 (12.0-18.0) g/dL Hct 34.4 L (35.0-51.0) % MCV 101.7 H (80.0-94.0) fL MCH 35.6 H (27.0-31.0) pg MCHC 35.0 (33.0-37.0) g/dL RDW 14.0 (11.5-14.5) % Plt Count 167 (130-400) K/uL MPV 8.7 (7.2-11.7) fL Neut % (Auto) (50.0-75.0) % Lymph % (Auto) (20.0-40.0) % [place] % (Auto) (0.0-10.0) % Eos % (Auto) (0.0-4.0) % Baso % (Auto) (0.0-2.0) % Neut # (Auto) (1.8-7.0) K/uL Lymph # (Auto) (1.0-4.3) K/uL [place] # (Auto) (0.0-0.8) K/uL Eos # (Auto) (0.0-0.7) K/uL Baso # (Auto) (0.0-0.2) K/uL Puncture Site Rb pCO2 37 (35-45) mm/Hg pO2 96 (80-100) mm/Hg HCO3 24.2 (21-28) mmol/L ABG pH 7.41 (7.35-7.45) ABG Total CO2 24.6 (22-28) mmol/L ABG O2 Saturation 99.1 H (95-98) % ABG Base Excess -0.9 (-2.0-3.0) mmol/L ABG Hemoglobin 12.4 (11.7-17.4) g/dL ABG Carboxyhemoglobin 2.1 H (0.5-1.5) % POC ABG HHb (Measured) 0.9 (0.0-5.0) % ABG Methemoglobin 1.0 (0.0-3.0) % Ulises Test Na ABG Potassium (3.6-5.2) mmol/L A-a O2 Difference 107.0 mm/Hg Respiratory Index 1.1 Hgb O2 Saturation 96.0 (95.0-98.0) % Sodium 139 (132-148) mmol/l Chloride 104 (98-107) mmol/L Glucose (75-110) mg/dl Lactate (0.7-2.1) mmol/L Vent Mode Prvc Mechanical Rate 14 FiO2 35.0 % Tidal Volume 500 PEEP 5 Pressure Support Potassium 4.4 (3.6-5.2) mmol/L Carbon Dioxide 22 (22-30) mmol/L Anion Gap 17 (10-20) BUN 19 (9-20) mg/dL Creatinine 1.0 (0.8-1.5) mg/dL Est GFR ( Amer) > 60 Est GFR (Non-Af Amer) > 60 POC Glucose (mg/dL) (65-110) mg/dL Random Glucose 132 H (75-110) mg/dL Uric Acid 4.2 (3.5-8.5) mg/dL Calcium 9.3 (8.6-10.4) mg/dl Phosphorus 4.8 H (2.5-4.5) mg/dL Magnesium 2.2 (1.6-2.3) mg/dL Total Bilirubin 0.7 (0.2-1.3) mg/dL AST 66 H (17-59) U/L ALT 38 (21-72) U/L Alkaline Phosphatase 81 (38-126) U/L Ammonia (9-33) umol/L Total Creatine Kinase (55-170) U/L CK-MB (Mass) (0.0-3.38) ng/mL Troponin I (0.00-0.120) ng/mL Total Protein 8.7 H (6.3-8.3) g/dL Albumin 4.3 (3.5-5.0) g/dL Globulin 4.4 H (2.2-3.9) gm/dL Albumin/Globulin Ratio 1.0 (1.0-2.1) Triglycerides (0-149) mg/dL Cholesterol (0-199) mg/dL LDL Cholesterol Direct (0-129) mg/dL HDL Cholesterol (30-70) mg/dL 25-OH Vitamin D Total (30.0-100.0) NG/ML Prolactin (3.7-17.9) ng/mL Arterial Blood Potassium (3.6-5.2) mmol/L Phenytoin (10-20) ug/mL 09/18/18 09/18/18 09/18/18 Range/Units 18:00 17:53 17:53 WBC (4.8-10.8) K/uL RBC (4.40-5.90) Mil/uL Hgb (12.0-18.0) g/dL Hct (35.0-51.0) % MCV (80.0-94.0) fL MCH (27.0-31.0) pg MCHC (33.0-37.0) g/dL RDW (11.5-14.5) % Plt Count (130-400) K/uL MPV (7.2-11.7) fL Neut % (Auto) (50.0-75.0) % Lymph % (Auto) (20.0-40.0) % [place] % (Auto) (0.0-10.0) % Eos % (Auto) (0.0-4.0) % Baso % (Auto) (0.0-2.0) % Neut # (Auto) (1.8-7.0) K/uL Lymph # (Auto) (1.0-4.3) K/uL [place] # (Auto) (0.0-0.8) K/uL Eos # (Auto) (0.0-0.7) K/uL Baso # (Auto) (0.0-0.2) K/uL Puncture Site Lb pCO2 33 L (35-45) mm/Hg pO2 129 H (80-100) mm/Hg HCO3 23.6 (21-28) mmol/L ABG pH 7.43 (7.35-7.45) ABG Total CO2 22.9 (22-28) mmol/L ABG O2 Saturation 99.6 H (95-98) % ABG Base Excess -1.7 (-2.0-3.0) mmol/L ABG Hemoglobin (11.7-17.4) g/dL ABG Carboxyhemoglobin (0.5-1.5) % POC ABG HHb (Measured) (0.0-5.0) % ABG Methemoglobin (0.0-3.0) % Ulises Test Na ABG Potassium 4.3 (3.6-5.2) mmol/L A-a O2 Difference 79.0 mm/Hg Respiratory Index 0.6 Hgb O2 Saturation (95.0-98.0) % Sodium 140.0 (132-148) mmol/l Chloride 109.0 H (98-107) mmol/L Glucose 119 H (75-110) mg/dl Lactate 1.6 (0.7-2.1) mmol/L Vent Mode Cpap Mechanical Rate FiO2 35.0 % Tidal Volume PEEP 5 Pressure Support 10 Potassium (3.6-5.2) mmol/L Carbon Dioxide (22-30) mmol/L Anion Gap (10-20) BUN (9-20) mg/dL Creatinine (0.8-1.5) mg/dL Est GFR ( Amer) Est GFR (Non-Af Amer) POC Glucose (mg/dL) (65-110) mg/dL Random Glucose (75-110) mg/dL Uric Acid (3.5-8.5) mg/dL Calcium (8.6-10.4) mg/dl Phosphorus (2.5-4.5) mg/dL Magnesium (1.6-2.3) mg/dL Total Bilirubin (0.2-1.3) mg/dL AST (17-59) U/L ALT (21-72) U/L Alkaline Phosphatase (38-126) U/L Ammonia 21 D (9-33) umol/L Total Creatine Kinase (55-170) U/L CK-MB (Mass) (0.0-3.38) ng/mL Troponin I (0.00-0.120) ng/mL Total Protein (6.3-8.3) g/dL Albumin (3.5-5.0) g/dL Globulin (2.2-3.9) gm/dL Albumin/Globulin Ratio (1.0-2.1) Triglycerides (0-149) mg/dL Cholesterol (0-199) mg/dL LDL Cholesterol Direct (0-129) mg/dL HDL Cholesterol (30-70) mg/dL 25-OH Vitamin D Total (30.0-100.0) NG/ML Prolactin (3.7-17.9) ng/mL Arterial Blood Potassium 4.3 (3.6-5.2) mmol/L Phenytoin 20.7 H (10-20) ug/mL 09/18/18 09/18/18 09/18/18 Range/Units 15:22 11:18 11:18 WBC (4.8-10.8) K/uL RBC (4.40-5.90) Mil/uL Hgb (12.0-18.0) g/dL Hct (35.0-51.0) % MCV (80.0-94.0) fL MCH (27.0-31.0) pg MCHC (33.0-37.0) g/dL RDW (11.5-14.5) % Plt Count (130-400) K/uL MPV (7.2-11.7) fL Neut % (Auto) (50.0-75.0) % Lymph % (Auto) (20.0-40.0) % [place] % (Auto) (0.0-10.0) % Eos % (Auto) (0.0-4.0) % Baso % (Auto) (0.0-2.0) % Neut # (Auto) (1.8-7.0) K/uL Lymph # (Auto) (1.0-4.3) K/uL [place] # (Auto) (0.0-0.8) K/uL Eos # (Auto) (0.0-0.7) K/uL Baso # (Auto) (0.0-0.2) K/uL Puncture Site pCO2 (35-45) mm/Hg pO2 (80-100) mm/Hg HCO3 (21-28) mmol/L ABG pH (7.35-7.45) ABG Total CO2 (22-28) mmol/L ABG O2 Saturation (95-98) % ABG Base Excess (-2.0-3.0) mmol/L ABG Hemoglobin (11.7-17.4) g/dL ABG Carboxyhemoglobin (0.5-1.5) % POC ABG HHb (Measured) (0.0-5.0) % ABG Methemoglobin (0.0-3.0) % Ulises Test ABG Potassium (3.6-5.2) mmol/L A-a O2 Difference mm/Hg Respiratory Index Hgb O2 Saturation (95.0-98.0) % Sodium 137 (132-148) mmol/l Chloride 102 (98-107) mmol/L Glucose (75-110) mg/dl Lactate (0.7-2.1) mmol/L Vent Mode Mechanical Rate FiO2 % Tidal Volume PEEP Pressure Support Potassium 4.3 (3.6-5.2) mmol/L Carbon Dioxide 21 L (22-30) mmol/L Anion Gap 18 (10-20) BUN 16 (9-20) mg/dL Creatinine 0.9 (0.8-1.5) mg/dL Est GFR ( Amer) > 60 Est GFR (Non-Af Amer) > 60 POC Glucose (mg/dL) 127 H (65-110) mg/dL Random Glucose 120 H (75-110) mg/dL Uric Acid (3.5-8.5) mg/dL Calcium 9.6 (8.6-10.4) mg/dl Phosphorus 5.1 H (2.5-4.5) mg/dL Magnesium 2.1 (1.6-2.3) mg/dL Total Bilirubin 0.5 (0.2-1.3) mg/dL AST 63 H (17-59) U/L ALT 34 (21-72) U/L Alkaline Phosphatase 70 (38-126) U/L Ammonia (9-33) umol/L Total Creatine Kinase 50 L (55-170) U/L CK-MB (Mass) 0.46 (0.0-3.38) ng/mL Troponin I < 0.0120 (0.00-0.120) ng/mL Total Protein 8.9 H (6.3-8.3) g/dL Albumin 4.2 (3.5-5.0) g/dL Globulin 4.7 H (2.2-3.9) gm/dL Albumin/Globulin Ratio 0.9 L (1.0-2.1) Triglycerides (0-149) mg/dL Cholesterol (0-199) mg/dL LDL Cholesterol Direct (0-129) mg/dL HDL Cholesterol (30-70) mg/dL 25-OH Vitamin D Total (30.0-100.0) NG/ML Prolactin 16.2 (3.7-17.9) ng/mL Arterial Blood Potassium (3.6-5.2) mmol/L Phenytoin 11.9 (10-20) ug/mL 09/18/18 09/18/18 09/18/18 Range/Units 11:18 11:11 10:56 WBC 4.6 L (4.8-10.8) K/uL RBC 3.68 L (4.40-5.90) Mil/uL Hgb 12.8 (12.0-18.0) g/dL Hct 37.1 (35.0-51.0) % MCV 100.7 H (80.0-94.0) fL MCH 34.7 H (27.0-31.0) pg MCHC 34.5 (33.0-37.0) g/dL RDW 14.6 H (11.5-14.5) % Plt Count 155 (130-400) K/uL MPV 8.1 (7.2-11.7) fL Neut % (Auto) 47.4 L (50.0-75.0) % Lymph % (Auto) 27.6 (20.0-40.0) % [place] % (Auto) 20.0 H (0.0-10.0) % Eos % (Auto) 4.2 H (0.0-4.0) % Baso % (Auto) 0.8 (0.0-2.0) % Neut # (Auto) 2.2 (1.8-7.0) K/uL Lymph # (Auto) 1.3 (1.0-4.3) K/uL [place] # (Auto) 0.9 H (0.0-0.8) K/uL Eos # (Auto) 0.2 (0.0-0.7) K/uL Baso # (Auto) 0.0 (0.0-0.2) K/uL Puncture Site Lra pCO2 35 (35-45) mm/Hg pO2 78 L (80-100) mm/Hg HCO3 25.4 (21-28) mmol/L ABG pH 7.45 (7.35-7.45) ABG Total CO2 25.4 (22-28) mmol/L ABG O2 Saturation 97.9 (95-98) % ABG Base Excess 0.7 (-2.0-3.0) mmol/L ABG Hemoglobin (11.7-17.4) g/dL ABG Carboxyhemoglobin (0.5-1.5) % POC ABG HHb (Measured) (0.0-5.0) % ABG Methemoglobin (0.0-3.0) % Ulises Test Pos ABG Potassium 3.9 (3.6-5.2) mmol/L A-a O2 Difference 28.0 mm/Hg Respiratory Index 0.4 Hgb O2 Saturation (95.0-98.0) % Sodium 138.0 (132-148) mmol/l Chloride 106.0 (98-107) mmol/L Glucose 115 H (75-110) mg/dl Lactate 1.0 (0.7-2.1) mmol/L Vent Mode Mechanical Rate FiO2 21.0 % Tidal Volume PEEP Pressure Support Potassium (3.6-5.2) mmol/L Carbon Dioxide (22-30) mmol/L Anion Gap (10-20) BUN (9-20) mg/dL Creatinine (0.8-1.5) mg/dL Est GFR ( Amer) Est GFR (Non-Af Amer) POC Glucose (mg/dL) 102 (65-110) mg/dL Random Glucose (75-110) mg/dL Uric Acid (3.5-8.5) mg/dL Calcium (8.6-10.4) mg/dl Phosphorus (2.5-4.5) mg/dL Magnesium (1.6-2.3) mg/dL Total Bilirubin (0.2-1.3) mg/dL AST (17-59) U/L ALT (21-72) U/L Alkaline Phosphatase (38-126) U/L Ammonia (9-33) umol/L Total Creatine Kinase (55-170) U/L CK-MB (Mass) (0.0-3.38) ng/mL Troponin I (0.00-0.120) ng/mL Total Protein (6.3-8.3) g/dL Albumin (3.5-5.0) g/dL Globulin (2.2-3.9) gm/dL Albumin/Globulin Ratio (1.0-2.1) Triglycerides (0-149) mg/dL Cholesterol (0-199) mg/dL LDL Cholesterol Direct (0-129) mg/dL HDL Cholesterol (30-70) mg/dL 25-OH Vitamin D Total (30.0-100.0) NG/ML Prolactin (3.7-17.9) ng/mL Arterial Blood Potassium 3.9 (3.6-5.2) mmol/L Phenytoin (10-20) ug/mL Laboratory Results - last 24 hr 09/18/18 09/18/18 09/18/18 10:56 11:11 11:18 WBC 4.6 L RBC 3.68 L Hgb 12.8 Hct 37.1 MCV 100.7 H MCH 34.7 H MCHC 34.5 RDW 14.6 H Plt Count 155 MPV 8.1 Neut % (Auto) 47.4 L Lymph % (Auto) 27.6 [place] % (Auto) 20.0 H Eos % (Auto) 4.2 H Baso % (Auto) 0.8 Neut # (Auto) 2.2 Lymph # (Auto) 1.3 [place] # (Auto) 0.9 H Eos # (Auto) 0.2 Baso # (Auto) 0.0 Puncture Site Lra pCO2 35 pO2 78 L HCO3 25.4 ABG pH 7.45 ABG Total CO2 25.4 ABG O2 Saturation 97.9 ABG Base Excess 0.7 ABG Hemoglobin ABG Carboxyhemoglobin POC ABG HHb (Measured) ABG Methemoglobin Ulises Test Pos ABG Potassium 3.9 A-a O2 Difference 28.0 Respiratory Index 0.4 Hgb O2 Saturation Sodium 138.0 Chloride 106.0 Glucose 115 H Lactate 1.0 Vent Mode Mechanical Rate FiO2 21.0 Tidal Volume PEEP Pressure Support Potassium Carbon Dioxide Anion Gap BUN Creatinine Est GFR ( Amer) Est GFR (Non-Af Amer) POC Glucose (mg/dL) 102 Random Glucose Uric Acid Calcium Phosphorus Magnesium Total Bilirubin AST ALT Alkaline Phosphatase Ammonia Total Creatine Kinase CK-MB (Mass) Troponin I Total Protein Albumin Globulin Albumin/Globulin Ratio Triglycerides Cholesterol LDL Cholesterol Direct HDL Cholesterol 25-OH Vitamin D Total Prolactin Arterial Blood Potassium 3.9 Phenytoin 09/18/18 09/18/18 09/18/18 11:18 11:18 15:22 WBC RBC Hgb Hct MCV MCH MCHC RDW Plt Count MPV Neut % (Auto) Lymph % (Auto) [place] % (Auto) Eos % (Auto) Baso % (Auto) Neut # (Auto) Lymph # (Auto) [place] # (Auto) Eos # (Auto) Baso # (Auto) Puncture Site pCO2 pO2 HCO3 ABG pH ABG Total CO2 ABG O2 Saturation ABG Base Excess ABG Hemoglobin ABG Carboxyhemoglobin POC ABG HHb (Measured) ABG Methemoglobin Ulises Test ABG Potassium A-a O2 Difference Respiratory Index Hgb O2 Saturation Sodium 137 Chloride 102 Glucose Lactate Vent Mode Mechanical Rate FiO2 Tidal Volume PEEP Pressure Support Potassium 4.3 Carbon Dioxide 21 L Anion Gap 18 BUN 16 Creatinine 0.9 Est GFR ( Amer) > 60 Est GFR (Non-Af Amer) > 60 POC Glucose (mg/dL) 127 H Random Glucose 120 H Uric Acid Calcium 9.6 Phosphorus 5.1 H Magnesium 2.1 Total Bilirubin 0.5 AST 63 H ALT 34 Alkaline Phosphatase 70 Ammonia Total Creatine Kinase 50 L CK-MB (Mass) 0.46 Troponin I < 0.0120 Total Protein 8.9 H Albumin 4.2 Globulin 4.7 H Albumin/Globulin Ratio 0.9 L Triglycerides Cholesterol LDL Cholesterol Direct HDL Cholesterol 25-OH Vitamin D Total Prolactin 16.2 Arterial Blood Potassium Phenytoin 11.9 09/18/18 09/18/18 09/18/18 17:53 17:53 18:00 WBC RBC Hgb Hct MCV MCH MCHC RDW Plt Count MPV Neut % (Auto) Lymph % (Auto) [place] % (Auto) Eos % (Auto) Baso % (Auto) Neut # (Auto) Lymph # (Auto) [place] # (Auto) Eos # (Auto) Baso # (Auto) Puncture Site Lb pCO2 33 L pO2 129 H HCO3 23.6 ABG pH 7.43 ABG Total CO2 22.9 ABG O2 Saturation 99.6 H ABG Base Excess -1.7 ABG Hemoglobin ABG Carboxyhemoglobin POC ABG HHb (Measured) ABG Methemoglobin Ulises Test Na ABG Potassium 4.3 A-a O2 Difference 79.0 Respiratory Index 0.6 Hgb O2 Saturation Sodium 140.0 Chloride 109.0 H Glucose 119 H Lactate 1.6 Vent Mode Cpap Mechanical Rate FiO2 35.0 Tidal Volume PEEP 5 Pressure Support 10 Potassium Carbon Dioxide Anion Gap BUN Creatinine Est GFR ( Amer) Est GFR (Non-Af Amer) POC Glucose (mg/dL) Random Glucose Uric Acid Calcium Phosphorus Magnesium Total Bilirubin AST ALT Alkaline Phosphatase Ammonia 21 D Total Creatine Kinase CK-MB (Mass) Troponin I Total Protein Albumin Globulin Albumin/Globulin Ratio Triglycerides Cholesterol LDL Cholesterol Direct HDL Cholesterol 25-OH Vitamin D Total Prolactin Arterial Blood Potassium 4.3 Phenytoin 20.7 H 09/19/18 09/19/18 09/19/18 05:13 06:37 06:37 WBC 6.9 RBC 3.38 L Hgb 12.0 Hct 34.4 L MCV 101.7 H MCH 35.6 H MCHC 35.0 RDW 14.0 Plt Count 167 MPV 8.7 Neut % (Auto) Lymph % (Auto) [place] % (Auto) Eos % (Auto) Baso % (Auto) Neut # (Auto) Lymph # (Auto) [place] # (Auto) Eos # (Auto) Baso # (Auto) Puncture Site Rb pCO2 37 pO2 96 HCO3 24.2 ABG pH 7.41 ABG Total CO2 24.6 ABG O2 Saturation 99.1 H ABG Base Excess -0.9 ABG Hemoglobin 12.4 ABG Carboxyhemoglobin 2.1 H POC ABG HHb (Measured) 0.9 ABG Methemoglobin 1.0 Ulises Test Na ABG Potassium A-a O2 Difference 107.0 Respiratory Index 1.1 Hgb O2 Saturation 96.0 Sodium 139 Chloride 104 Glucose Lactate Vent Mode Prvc Mechanical Rate 14 FiO2 35.0 Tidal Volume 500 PEEP 5 Pressure Support Potassium 4.4 Carbon Dioxide 22 Anion Gap 17 BUN 19 Creatinine 1.0 Est GFR ( Amer) > 60 Est GFR (Non-Af Amer) > 60 POC Glucose (mg/dL) Random Glucose 132 H Uric Acid 4.2 Calcium 9.3 Phosphorus 4.8 H Magnesium 2.2 Total Bilirubin 0.7 AST 66 H ALT 38 Alkaline Phosphatase 81 Ammonia Total Creatine Kinase CK-MB (Mass) Troponin I Total Protein 8.7 H Albumin 4.3 Globulin 4.4 H Albumin/Globulin Ratio 1.0 Triglycerides Cholesterol LDL Cholesterol Direct HDL Cholesterol 25-OH Vitamin D Total Prolactin Arterial Blood Potassium Phenytoin 09/19/18 09/19/18 09/19/18 06:37 06:37 06:37 WBC RBC Hgb Hct MCV MCH MCHC RDW Plt Count MPV Neut % (Auto) Lymph % (Auto) [place] % (Auto) Eos % (Auto) Baso % (Auto) Neut # (Auto) Lymph # (Auto) [place] # (Auto) Eos # (Auto) Baso # (Auto) Puncture Site pCO2 pO2 HCO3 ABG pH ABG Total CO2 ABG O2 Saturation ABG Base Excess ABG Hemoglobin ABG Carboxyhemoglobin POC ABG HHb (Measured) ABG Methemoglobin Ulises Test ABG Potassium A-a O2 Difference Respiratory Index Hgb O2 Saturation Sodium Chloride Glucose Lactate Vent Mode Mechanical Rate FiO2 Tidal Volume PEEP Pressure Support Potassium Carbon Dioxide Anion Gap BUN Creatinine Est GFR ( Amer) Est GFR (Non-Af Amer) POC Glucose (mg/dL) Random Glucose Uric Acid Calcium Phosphorus Magnesium Total Bilirubin AST ALT Alkaline Phosphatase Ammonia Total Creatine Kinase CK-MB (Mass) Troponin I Total Protein Albumin Globulin Albumin/Globulin Ratio Triglycerides 82 D Cholesterol 176 LDL Cholesterol Direct 110 HDL Cholesterol 47 25-OH Vitamin D Total 27.2 L Prolactin Arterial Blood Potassium Phenytoin 22.7 H EKG/Cardiology Studies: Cardiology / EKG Studies 09/18/18 10:58 EKG [ELECTROCARDIOGRAM] Stat Comment: Mode Of Transportation: Reason For Exam: unresponsive Fingerstick Blood Sugar Results: 85 Critical Care Progress Note - Nutrition Nutrition: Nutrition Category Date Time Status NPO Diet [DIET] Diets 09/18/18 Dinner Active Assessment/Plan - Assessment and Plan (Free Text) Assessment: Patient is a 58 year old male with PMH of seizures and alcohol abuse, admitted to ICU for status epilepticus. Plan: Neuro: Status epilepticus - Neurology consulted, Dr. Nicole - Phenytoin 100 mg IV TID - Keppra 500mg IV BID - Midazolam drip Hx of Alcohol abuse - Folic acid, thiamine, MV - Psychiatry consulted, Dr. Cortes HTN - Metoprolol Succinate 50mg PO QD Respiratory: Respiratory distress - Patient is intubated on PRVC - ABG: pO2 96, pCO2 37, pH 7.41 - Plan to extubate patient 09/19 - Continue to monitor GI: - NPO Renal: - No acute issues Endo: - No acute issues ID: Bilateral leg cellulitis/ulcers - Zosyn 3.375g IV Q8 (Started on 09/13) - Mupirocin ointment - ID consulted, Dr. Huang - Podiatry consulted, Dr. Blanco Prophylaxis: - Contraindication to VTE prophylaxis due to recent GI bleed - Contraindication to SCD's due to leg cellulitis Case discussed with Dr. Erich Mo, PGY-1 <Yohan Jung - Last Filed: 09/19/18 17:12> CCU Objective - Vital Signs / Intake & Output Vital Signs (Last 4 hours): Vital Signs Pulse Resp BP 09/19/18 14:00 116 H 26 H 128/88 Intake and Output (Last 8hrs): Intake & Output 09/19/18 09/19/18 09/19/18 06:59 14:59 22:59 Intake Total 33 0 Output Total 200 Balance -167 0 Weight 173 lb 8 oz Intake: IV 20 Intake, IV Amount 13 0 Left Forearm 13 0 Output: Urine 200 Condom 200 - Medications Active Medications: Active Medications Generic Name Dose Route Start Last Admin Trade Name Freq PRN Reason Stop Dose Admin Acetaminophen 650 mg 09/12/18 10:14 09/18/18 08:32 Tylenol 325mg Tab PO 650 mg Q6 PRN Administration Pain, moderate (4-7) Folic Acid 1 mg 09/18/18 11:15 09/19/18 09:04 Folic Acid PO Not Given DAILY [facility] Piperacillin Sod/Tazobactam Sod 3.375 gm in 50 mls @ 100 mls/hr 09/13/18 12:45 09/19/18 05:15 Zosyn 3.375 Gm Iv Premix IVPB 100 mls/hr Q8H MARISA Administration Protocol Midazolam HCl 100 mg/ Sodium 100 mls @ 1.63 mls/hr 09/18/18 16:15 09/19/18 06:00 Chloride IV 0 mg/kg/hr .Q24H MARISA 0 mls/hr Titration Protocol 0.02 MG/KG/HR Lorazepam 2 mg 09/18/18 22:03 09/19/18 05:15 Ativan IVP 2 mg Q4H PRN Administration Anxiety Metoprolol Succinate 50 mg 09/16/18 10:00 09/19/18 09:04 Toprol Xl PO Not Given DAILY [facility] Multivitamins/Minerals 1 tab 09/17/18 08:00 09/19/18 08:00 Therapeutic-M Tab PO Not Given 0800 [facility] Mupirocin 1 gm 09/11/18 10:00 09/18/18 19:15 Bactroban Ointment TOP 1 appl BID MARISA Administration Phenytoin 100 mg 09/19/18 01:00 09/19/18 09:03 Dilantin IVP 100 mg Q8H MARISA Administration Thiamine HCl 100 mg 09/18/18 11:15 09/19/18 09:05 Vitamin B1 Tab PO Not Given BID MARISA - Patient Studies Lab Studies: Lab Studies 09/19/18 09/19/18 09/19/18 Range/Units 06:37 06:37 06:37 WBC (4.8-10.8) K/uL RBC (4.40-5.90) Mil/uL Hgb (12.0-18.0) g/dL Hct (35.0-51.0) % MCV (80.0-94.0) fL MCH (27.0-31.0) pg MCHC (33.0-37.0) g/dL RDW (11.5-14.5) % Plt Count (130-400) K/uL MPV (7.2-11.7) fL Puncture Site pCO2 (35-45) mm/Hg pO2 (80-100) mm/Hg HCO3 (21-28) mmol/L ABG pH (7.35-7.45) ABG Total CO2 (22-28) mmol/L ABG O2 Saturation (95-98) % ABG Base Excess (-2.0-3.0) mmol/L ABG Hemoglobin (11.7-17.4) g/dL ABG Carboxyhemoglobin (0.5-1.5) % POC ABG HHb (Measured) (0.0-5.0) % ABG Methemoglobin (0.0-3.0) % Ulises Test ABG Potassium (3.6-5.2) mmol/L A-a O2 Difference mm/Hg Respiratory Index Hgb O2 Saturation (95.0-98.0) % Sodium (132-148) mmol/l Chloride (98-107) mmol/L Glucose (75-110) mg/dl Lactate (0.7-2.1) mmol/L Vent Mode Mechanical Rate FiO2 % Tidal Volume PEEP Pressure Support Potassium (3.6-5.2) mmol/L Carbon Dioxide (22-30) mmol/L Anion Gap (10-20) BUN (9-20) mg/dL Creatinine (0.8-1.5) mg/dL Est GFR ( Amer) Est GFR (Non-Af Amer) POC Glucose (mg/dL) (65-110) mg/dL Random Glucose (75-110) mg/dL Uric Acid (3.5-8.5) mg/dL Calcium (8.6-10.4) mg/dl Phosphorus (2.5-4.5) mg/dL Magnesium (1.6-2.3) mg/dL Total Bilirubin (0.2-1.3) mg/dL AST (17-59) U/L ALT (21-72) U/L Alkaline Phosphatase (38-126) U/L Ammonia (9-33) umol/L Total Protein (6.3-8.3) g/dL Albumin (3.5-5.0) g/dL Globulin (2.2-3.9) gm/dL Albumin/Globulin Ratio (1.0-2.1) Triglycerides 82 D (0-149) mg/dL Cholesterol 176 (0-199) mg/dL LDL Cholesterol Direct 110 (0-129) mg/dL HDL Cholesterol 47 (30-70) mg/dL 25-OH Vitamin D Total 27.2 L (30.0-100.0) NG/ML TSH 3rd Generation 2.49 (0.46-4.68) mIU/L Arterial Blood Potassium (3.6-5.2) mmol/L Phenytoin (10-20) ug/mL [facility] 6 Profile (NEGATIVE) RPR Nonreactive (NONREACTIVE) 09/19/18 09/19/18 09/19/18 Range/Units 06:37 06:37 06:37 WBC (4.8-10.8) K/uL RBC (4.40-5.90) Mil/uL Hgb (12.0-18.0) g/dL Hct (35.0-51.0) % MCV (80.0-94.0) fL MCH (27.0-31.0) pg MCHC (33.0-37.0) g/dL RDW (11.5-14.5) % Plt Count (130-400) K/uL MPV (7.2-11.7) fL Puncture Site pCO2 (35-45) mm/Hg pO2 (80-100) mm/Hg HCO3 (21-28) mmol/L ABG pH (7.35-7.45) ABG Total CO2 (22-28) mmol/L ABG O2 Saturation (95-98) % ABG Base Excess (-2.0-3.0) mmol/L ABG Hemoglobin (11.7-17.4) g/dL ABG Carboxyhemoglobin (0.5-1.5) % POC ABG HHb (Measured) (0.0-5.0) % ABG Methemoglobin (0.0-3.0) % Ulises Test ABG Potassium (3.6-5.2) mmol/L A-a O2 Difference mm/Hg Respiratory Index Hgb O2 Saturation (95.0-98.0) % Sodium 139 (132-148) mmol/l Chloride 104 (98-107) mmol/L Glucose (75-110) mg/dl Lactate (0.7-2.1) mmol/L Vent Mode Mechanical Rate FiO2 % Tidal Volume PEEP Pressure Support Potassium 4.4 (3.6-5.2) mmol/L Carbon Dioxide 22 (22-30) mmol/L Anion Gap 17 (10-20) BUN 19 (9-20) mg/dL Creatinine 1.0 (0.8-1.5) mg/dL Est GFR ( Amer) > 60 Est GFR (Non-Af Amer) > 60 POC Glucose (mg/dL) (65-110) mg/dL Random Glucose 132 H (75-110) mg/dL Uric Acid 4.2 (3.5-8.5) mg/dL Calcium 9.3 (8.6-10.4) mg/dl Phosphorus 4.8 H (2.5-4.5) mg/dL Magnesium 2.2 (1.6-2.3) mg/dL Total Bilirubin 0.7 (0.2-1.3) mg/dL AST 66 H (17-59) U/L ALT 38 (21-72) U/L Alkaline Phosphatase 81 (38-126) U/L Ammonia (9-33) umol/L Total Protein 8.7 H (6.3-8.3) g/dL Albumin 4.3 (3.5-5.0) g/dL Globulin 4.4 H (2.2-3.9) gm/dL Albumin/Globulin Ratio 1.0 (1.0-2.1) Triglycerides (0-149) mg/dL Cholesterol (0-199) mg/dL LDL Cholesterol Direct (0-129) mg/dL HDL Cholesterol (30-70) mg/dL 25-OH Vitamin D Total (30.0-100.0) NG/ML TSH 3rd Generation (0.46-4.68) mIU/L Arterial Blood Potassium (3.6-5.2) mmol/L Phenytoin 22.7 H (10-20) ug/mL MORIAH 6 Profile Negative (NEGATIVE) RPR (NONREACTIVE) 09/19/18 09/19/18 09/18/18 Range/Units 06:37 05:13 18:00 WBC 6.9 (4.8-10.8) K/uL RBC 3.38 L (4.40-5.90) Mil/uL Hgb 12.0 (12.0-18.0) g/dL Hct 34.4 L (35.0-51.0) % MCV 101.7 H (80.0-94.0) fL MCH 35.6 H (27.0-31.0) pg MCHC 35.0 (33.0-37.0) g/dL RDW 14.0 (11.5-14.5) % Plt Count 167 (130-400) K/uL MPV 8.7 (7.2-11.7) fL Puncture Site Rb Lb pCO2 37 33 L (35-45) mm/Hg pO2 96 129 H (80-100) mm/Hg HCO3 24.2 23.6 (21-28) mmol/L ABG pH 7.41 7.43 (7.35-7.45) ABG Total CO2 24.6 22.9 (22-28) mmol/L ABG O2 Saturation 99.1 H 99.6 H (95-98) % ABG Base Excess -0.9 -1.7 (-2.0-3.0) mmol/L ABG Hemoglobin 12.4 (11.7-17.4) g/dL ABG Carboxyhemoglobin 2.1 H (0.5-1.5) % POC ABG HHb (Measured) 0.9 (0.0-5.0) % ABG Methemoglobin 1.0 (0.0-3.0) % Ulises Test Na Na ABG Potassium 4.3 (3.6-5.2) mmol/L A-a O2 Difference 107.0 79.0 mm/Hg Respiratory Index 1.1 0.6 Hgb O2 Saturation 96.0 (95.0-98.0) % Sodium 140.0 (132-148) mmol/l Chloride 109.0 H (98-107) mmol/L Glucose 119 H (75-110) mg/dl Lactate 1.6 (0.7-2.1) mmol/L Vent Mode Prvc Cpap Mechanical Rate 14 FiO2 35.0 35.0 % Tidal Volume 500 PEEP 5 5 Pressure Support 10 Potassium (3.6-5.2) mmol/L Carbon Dioxide (22-30) mmol/L Anion Gap (10-20) BUN (9-20) mg/dL Creatinine (0.8-1.5) mg/dL Est GFR ( Amer) Est GFR (Non-Af Amer) POC Glucose (mg/dL) (65-110) mg/dL Random Glucose (75-110) mg/dL Uric Acid (3.5-8.5) mg/dL Calcium (8.6-10.4) mg/dl Phosphorus (2.5-4.5) mg/dL Magnesium (1.6-2.3) mg/dL Total Bilirubin (0.2-1.3) mg/dL AST (17-59) U/L ALT (21-72) U/L Alkaline Phosphatase (38-126) U/L Ammonia (9-33) umol/L Total Protein (6.3-8.3) g/dL Albumin (3.5-5.0) g/dL Globulin (2.2-3.9) gm/dL Albumin/Globulin Ratio (1.0-2.1) Triglycerides (0-149) mg/dL Cholesterol (0-199) mg/dL LDL Cholesterol Direct (0-129) mg/dL HDL Cholesterol (30-70) mg/dL 25-OH Vitamin D Total (30.0-100.0) NG/ML TSH 3rd Generation (0.46-4.68) mIU/L Arterial Blood Potassium 4.3 (3.6-5.2) mmol/L Phenytoin (10-20) ug/mL [facility] 6 Profile (NEGATIVE) RPR (NONREACTIVE) 09/18/18 09/18/18 09/18/18 Range/Units 17:53 17:53 15:22 WBC (4.8-10.8) K/uL RBC (4.40-5.90) Mil/uL Hgb (12.0-18.0) g/dL Hct (35.0-51.0) % MCV (80.0-94.0) fL MCH (27.0-31.0) pg MCHC (33.0-37.0) g/dL RDW (11.5-14.5) % Plt Count (130-400) K/uL MPV (7.2-11.7) fL Puncture Site pCO2 (35-45) mm/Hg pO2 (80-100) mm/Hg HCO3 (21-28) mmol/L ABG pH (7.35-7.45) ABG Total CO2 (22-28) mmol/L ABG O2 Saturation (95-98) % ABG Base Excess (-2.0-3.0) mmol/L ABG Hemoglobin (11.7-17.4) g/dL ABG Carboxyhemoglobin (0.5-1.5) % POC ABG HHb (Measured) (0.0-5.0) % ABG Methemoglobin (0.0-3.0) % Ulises Test ABG Potassium (3.6-5.2) mmol/L A-a O2 Difference mm/Hg Respiratory Index Hgb O2 Saturation (95.0-98.0) % Sodium (132-148) mmol/l Chloride (98-107) mmol/L Glucose (75-110) mg/dl Lactate (0.7-2.1) mmol/L Vent Mode Mechanical Rate FiO2 % Tidal Volume PEEP Pressure Support Potassium (3.6-5.2) mmol/L Carbon Dioxide (22-30) mmol/L Anion Gap (10-20) BUN (9-20) mg/dL Creatinine (0.8-1.5) mg/dL Est GFR ( Amer) Est GFR (Non-Af Amer) POC Glucose (mg/dL) 127 H (65-110) mg/dL Random Glucose (75-110) mg/dL Uric Acid (3.5-8.5) mg/dL Calcium (8.6-10.4) mg/dl Phosphorus (2.5-4.5) mg/dL Magnesium (1.6-2.3) mg/dL Total Bilirubin (0.2-1.3) mg/dL AST (17-59) U/L ALT (21-72) U/L Alkaline Phosphatase (38-126) U/L Ammonia 21 D (9-33) umol/L Total Protein (6.3-8.3) g/dL Albumin (3.5-5.0) g/dL Globulin (2.2-3.9) gm/dL Albumin/Globulin Ratio (1.0-2.1) Triglycerides (0-149) mg/dL Cholesterol (0-199) mg/dL LDL Cholesterol Direct (0-129) mg/dL HDL Cholesterol (30-70) mg/dL 25-OH Vitamin D Total (30.0-100.0) NG/ML TSH 3rd Generation (0.46-4.68) mIU/L Arterial Blood Potassium (3.6-5.2) mmol/L Phenytoin 20.7 H (10-20) ug/mL [facility] 6 Profile (NEGATIVE) RPR (NONREACTIVE) Laboratory Results - last 24 hr 09/18/18 09/18/18 09/18/18 15:22 17:53 17:53 WBC RBC Hgb Hct MCV MCH MCHC RDW Plt Count MPV Puncture Site pCO2 pO2 HCO3 ABG pH ABG Total CO2 ABG O2 Saturation ABG Base Excess ABG Hemoglobin ABG Carboxyhemoglobin POC ABG HHb (Measured) ABG Methemoglobin Ulises Test ABG Potassium A-a O2 Difference Respiratory Index Hgb O2 Saturation Sodium Chloride Glucose Lactate Vent Mode Mechanical Rate FiO2 Tidal Volume PEEP Pressure Support Potassium Carbon Dioxide Anion Gap BUN Creatinine Est GFR ( Amer) Est GFR (Non-Af Amer) POC Glucose (mg/dL) 127 H Random Glucose Uric Acid Calcium Phosphorus Magnesium Total Bilirubin AST ALT Alkaline Phosphatase Ammonia 21 D Total Protein Albumin Globulin Albumin/Globulin Ratio Triglycerides Cholesterol LDL Cholesterol Direct HDL Cholesterol 25-OH Vitamin D Total TSH 3rd Generation Arterial Blood Potassium Phenytoin 20.7 H [facility] 6 Profile RPR 09/18/18 09/19/18 09/19/18 18:00 05:13 06:37 WBC 6.9 RBC 3.38 L Hgb 12.0 Hct 34.4 L MCV 101.7 H MCH 35.6 H MCHC 35.0 RDW 14.0 Plt Count 167 MPV 8.7 Puncture Site Lb Rb pCO2 33 L 37 pO2 129 H 96 HCO3 23.6 24.2 ABG pH 7.43 7.41 ABG Total CO2 22.9 24.6 ABG O2 Saturation 99.6 H 99.1 H ABG Base Excess -1.7 -0.9 ABG Hemoglobin 12.4 ABG Carboxyhemoglobin 2.1 H POC ABG HHb (Measured) 0.9 ABG Methemoglobin 1.0 Ulises Test Na Na ABG Potassium 4.3 A-a O2 Difference 79.0 107.0 Respiratory Index 0.6 1.1 Hgb O2 Saturation 96.0 Sodium 140.0 Chloride 109.0 H Glucose 119 H Lactate 1.6 Vent Mode Cpap Prvc Mechanical Rate 14 FiO2 35.0 35.0 Tidal Volume 500 PEEP 5 5 Pressure Support 10 Potassium Carbon Dioxide Anion Gap BUN Creatinine Est GFR ( Amer) Est GFR (Non-Af Amer) POC Glucose (mg/dL) Random Glucose Uric Acid Calcium Phosphorus Magnesium Total Bilirubin AST ALT Alkaline Phosphatase Ammonia Total Protein Albumin Globulin Albumin/Globulin Ratio Triglycerides Cholesterol LDL Cholesterol Direct HDL Cholesterol 25-OH Vitamin D Total TSH 3rd Generation Arterial Blood Potassium 4.3 Phenytoin [facility]IA[facility] 6 Profile RPR 09/19/18 09/19/18 09/19/18 06:37 06:37 06:37 WBC RBC Hgb Hct MCV MCH MCHC RDW Plt Count MPV Puncture Site pCO2 pO2 HCO3 ABG pH ABG Total CO2 ABG O2 Saturation ABG Base Excess ABG Hemoglobin ABG Carboxyhemoglobin POC ABG HHb (Measured) ABG Methemoglobin Ulises Test ABG Potassium A-a O2 Difference Respiratory Index Hgb O2 Saturation Sodium 139 Chloride 104 Glucose Lactate Vent Mode Mechanical Rate FiO2 Tidal Volume PEEP Pressure Support Potassium 4.4 Carbon Dioxide 22 Anion Gap 17 BUN 19 Creatinine 1.0 Est GFR ( Amer) > 60 Est GFR (Non-Af Amer) > 60 POC Glucose (mg/dL) Random Glucose 132 H Uric Acid 4.2 Calcium 9.3 Phosphorus 4.8 H Magnesium 2.2 Total Bilirubin 0.7 AST 66 H ALT 38 Alkaline Phosphatase 81 Ammonia Total Protein 8.7 H Albumin 4.3 Globulin 4.4 H Albumin/Globulin Ratio 1.0 Triglycerides Cholesterol LDL Cholesterol Direct HDL Cholesterol 25-OH Vitamin D Total TSH 3rd Generation Arterial Blood Potassium Phenytoin 22.7 H [facility] 6 Profile Negative RPR 09/19/18 09/19/18 09/19/18 06:37 06:37 06:37 WBC RBC Hgb Hct MCV MCH MCHC RDW Plt Count MPV Puncture Site pCO2 pO2 HCO3 ABG pH ABG Total CO2 ABG O2 Saturation ABG Base Excess ABG Hemoglobin ABG Carboxyhemoglobin POC ABG HHb (Measured) ABG Methemoglobin Ulises Test ABG Potassium A-a O2 Difference Respiratory Index Hgb O2 Saturation Sodium Chloride Glucose Lactate Vent Mode Mechanical Rate FiO2 Tidal Volume PEEP Pressure Support Potassium Carbon Dioxide Anion Gap BUN Creatinine Est GFR ( Amer) Est GFR (Non-Af Amer) POC Glucose (mg/dL) Random Glucose Uric Acid Calcium Phosphorus Magnesium Total Bilirubin AST ALT Alkaline Phosphatase Ammonia Total Protein Albumin Globulin Albumin/Globulin Ratio Triglycerides 82 D Cholesterol 176 LDL Cholesterol Direct 110 HDL Cholesterol 47 25-OH Vitamin D Total 27.2 L TSH 3rd Generation 2.49 Arterial Blood Potassium Phenytoin [facility] 6 Profile RPR Nonreactive Critical Care Progress Note - Nutrition Nutrition: Nutrition Category Date Time Status NPO Diet [DIET] Diets 09/18/18 Dinner Active Attending/Attestation - Attestation I have personally seen and examined this patient.: Yes I have fully participated in the care of the patient.: Yes I have reviewed all pertinent clinical information: Yes Notes (Text): 09/19/18 17:07 I have seen and examined the patient. Medical records, lab studies, and imaging were reviewed by me and a management plan was formulated on multidisciplinary rounds with resident Dr. Mo. I agree with their documented assessment and plan. Patient has not become fully awake today, possible post-ictal state. Patient became progressively less responsive, was uncertain if he was in status epilepticus, so gave high dose of Ativan, but unfortunately no improvement. Awaiting VEEG. Continue Keppra q12h and Dilantin q8h. Critical Care Time 35 minutes. Multi-disciplinary rounds were performed with house staff, nursing, speech therapy, respiratory therapy, pharmacy and nutrition with integrated input from the primary team/attending and other consulting services. The documented time is cumulative and includes review of patient data/exams/labs/chart review and examination of the patient on rounds and throughout the day; time is exclusive of any procedures or teaching time.
[2018-09-19] MEDS: Metoprolol Succinate 50 mg XL Tab PO SCH (09:04)
--- NOTE | 2018-09-19 09:29 | RAD ---
Chest x-ray single frontal view HISTORY: Intubated. COMPARISON: 09/18/2018 Findings: Endotracheal tube extending into the midthoracic trachea Mild venous congestion. Right hilar prominence. Heart size within normal limits. Degenerative changes in the spine and shoulders. Impression: Endotracheal tube extending into the midthoracic trachea Mild venous congestion. Right hilar prominence.
--- NOTE | 2018-09-19 12:07 | CP.PCM.PN ---
Subjective - Date & Time of Evaluation Date of Evaluation: 09/19/18 Time of Evaluation: 12:04 - Subjective Subjective: pt still entubated in icu lethargic Objective - Vital Signs/Intake and Output Vital Signs (last 24 hours): Temp Pulse Resp BP Pulse Ox 98.9 F 106 H 13 123/81 100 09/19/18 08:00 09/19/18 08:01 09/19/18 08:01 09/19/18 08:01 09/19/18 08:00 Intake and Output: 09/19/18 09/19/18 06:59 18:59 Intake Total 39 0 Output Total 200 Balance -161 0 - Medications Medications: Current Medications Acetaminophen (Tylenol 325mg Tab) 650 mg PO Q6 PRN PRN Reason: Pain, moderate (4-7) Last Admin: 09/18/18 08:32 Dose: 650 mg Folic Acid (Folic Acid) 1 mg PO DAILY [facility] Last Admin: 09/19/18 09:04 Dose: Not Given Piperacillin Sod/Tazobactam Sod (Zosyn 3.375 Gm Iv Premix) 3.375 gm in 50 mls @ 100 mls/hr IVPB Q8H [facility]; Protocol Last Admin: 09/19/18 05:15 Dose: 100 mls/hr Midazolam HCl 100 mg/ Sodium (Chloride) 100 mls @ 1.63 mls/hr IV .Q24H [facility]; Protocol Last Titration: 09/19/18 06:00 Dose: 0 mg/kg/hr, 0 mls/hr Lorazepam (Ativan) 2 mg IVP Q4H PRN PRN Reason: Anxiety Last Admin: 09/19/18 05:15 Dose: 2 mg Metoprolol Succinate (Toprol Xl) 50 mg PO DAILY [facility] Last Admin: 09/19/18 09:04 Dose: Not Given Multivitamins/Minerals (Therapeutic-M Tab) 1 tab PO 0800 [facility] Last Admin: 09/19/18 08:00 Dose: Not Given Mupirocin (Bactroban Ointment) 1 gm TOP BID [facility] Last Admin: 09/18/18 19:15 Dose: 1 appl Phenytoin (Dilantin) 100 mg IVP Q8H [facility] Last Admin: 09/19/18 09:03 Dose: 100 mg Thiamine HCl (Vitamin B1 Tab) 100 mg PO BID [facility] Last Admin: 09/19/18 09:05 Dose: Not Given - Labs Labs: 09/19/18 06:37 09/19/18 06:37 - Constitutional Appears: In Acute Distress - Head Exam Head Exam: ATRAUMATIC - Eye Exam Eye Exam: Normal appearance Pupil Exam: NORMAL ACCOMODATION - ENT Exam ENT Exam: Normal Exam Additional comments: et tube in place - Neck Exam Neck Exam: Full ROM - Respiratory Exam Respiratory Exam: Decreased Breath Sounds - Cardiovascular Exam Cardiovascular Exam: REGULAR RHYTHM - GI/Abdominal Exam GI & Abdominal Exam: Normal Bowel Sounds - Back Exam Back Exam: NORMAL INSPECTION - Skin Skin Exam: Normal Color Assessment and Plan - Assessment and Plan (Free Text) Assessment: seizer disorder on ventilator Plan: cont as per orders
--- NOTE | 2018-09-19 12:37 | CARD ---
APPROVED REPORT Date of service: 09/18/2018 EKG Measurement Heart [id number] <Conclusion> Normal sinus rhythm Moderate voltage criteria for LVH, may be normal variant ST elevation, consider lateral injury or acute infarct ACUTE OR / STEMI Abnormal ECG
[2018-09-19] MEDS: Midazolam 50 mg/10 ml 100 MG in Sodium Chloride 0.9% 80 ML IV SCH (16:00)
--- NOTE | 2018-09-19 17:52 | CP.PCM.PN ---
Subjective - Date & Time of Evaluation Date of Evaluation: 09/19/18 Time of Evaluation: 10:00 - Subjective Subjective: intubated no seizures at present nad afebrile Objective - Vital Signs/Intake and Output Vital Signs (last 24 hours): Temp Pulse Resp BP Pulse Ox 98.9 F 116 H 26 H 128/88 100 09/19/18 08:00 09/19/18 14:00 09/19/18 14:00 09/19/18 14:00 09/19/18 13:00 Intake and Output: 09/19/18 09/19/18 06:59 18:59 Intake Total 39 0 Output Total 200 Balance -161 0 - Medications Medications: Current Medications Acetaminophen (Tylenol 325mg Tab) 650 mg PO Q6 PRN PRN Reason: Pain, moderate (4-7) Last Admin: 09/18/18 08:32 Dose: 650 mg Folic Acid (Folic Acid) 1 mg PO DAILY [facility] Last Admin: 09/19/18 09:04 Dose: Not Given Piperacillin Sod/Tazobactam Sod (Zosyn 3.375 Gm Iv Premix) 3.375 gm in 50 mls @ 100 mls/hr IVPB Q8H [facility]; Protocol Last Admin: 09/19/18 05:15 Dose: 100 mls/hr Midazolam HCl 100 mg/ Sodium (Chloride) 100 mls @ 1.63 mls/hr IV .Q24H [facility]; Protocol Last Titration: 09/19/18 06:00 Dose: 0 mg/kg/hr, 0 mls/hr Lorazepam (Ativan) 2 mg IVP Q4H PRN PRN Reason: Anxiety Last Admin: 09/19/18 05:15 Dose: 2 mg Metoprolol Succinate (Toprol Xl) 50 mg PO DAILY [facility] Last Admin: 09/19/18 09:04 Dose: Not Given Multivitamins/Minerals (Therapeutic-M Tab) 1 tab PO 0800 [facility] Last Admin: 09/19/18 08:00 Dose: Not Given Mupirocin (Bactroban Ointment) 1 gm TOP BID [facility] Last Admin: 09/19/18 17:22 Dose: 1 appl Phenytoin (Dilantin) 100 mg IVP Q8H [facility] Last Admin: 09/19/18 09:03 Dose: 100 mg Thiamine HCl (Vitamin B1 Tab) 100 mg PO BID [facility] Last Admin: 09/19/18 09:05 Dose: Not Given - Labs Labs: 09/19/18 06:37 09/19/18 06:37 - Constitutional Appears: Non-toxic, Chronically Ill - Head Exam Head Exam: NORMOCEPHALIC - Eye Exam Eye Exam: absent: Scleral icterus - ENT Exam ENT Exam: Mucous Membranes Dry - Neck Exam Neck Exam: absent: Lymphadenopathy - Respiratory Exam Respiratory Exam: Decreased Breath Sounds - Cardiovascular Exam Cardiovascular Exam: REGULAR RHYTHM - GI/Abdominal Exam GI & Abdominal Exam: Distended, Soft - Rectal Exam Rectal Exam: Deferred - Exam Exam: NORMAL INSPECTION - Extremities Exam Extremities Exam: Pedal Edema. absent: Calf Tenderness - Back Exam Back Exam: absent: CVA tenderness (L), CVA tenderness (R) - Neurological Exam Neurological Exam: Altered Assessment and Plan (1) Alcohol abuse Status: Chronic (2) Infected wound Status: Acute (3) Lower extremity cellulitis Status: Acute
--- NOTE | 2018-09-20 00:52 | CP.PCM.PN ---
Subjective - Date & Time of Evaluation Date of Evaluation: 09/20/18 Time of Evaluation: 00:46 - Subjective Subjective: He is following commands and is still intubated, He is not combative anymore. Low Vitamin D level is 27. Test results are showing high Dilantin level 22. He is on IV Dilantin, off Keppra which is contraindicated in Alcohol abuse due to its side effect of Psychosis. He is NPO and Vitamin D will be administered Po Or NG once he is off NPO. He is off benzodiazepines, and is off restraints. 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 An MRI Brain will be requested later on. His seizures are controlled now. His VS are seen and he has tachycardia 117. His labs are seen. Dx is alcoholic Psychosis with seizures and his infection is addressed by Dr Huang, ID specialist. Normal TSH, normal Uric acid High MCV due to Alcohol Abuse, He has an EEG in AM. Will a repeat Dilantin Trough level, if high will hold 1 dose and resume again at 100 mg Q 8 hrs. Objective - Vital Signs/Intake and Output Vital Signs (last 24 hours): Temp Pulse Resp BP Pulse Ox 99.8 F H 119 H 24 139/93 H 100 09/19/18 21:00 09/19/18 23:00 09/19/18 23:00 09/19/18 23:00 09/19/18 23:00 Intake and Output: 09/19/18 09/20/18 18:59 06:59 Intake Total 50 50 Output Total 650 100 Balance -600 -50 - Medications Medications: Current Medications Acetaminophen (Tylenol 325mg Tab) 650 mg PO Q6 PRN PRN Reason: Pain, moderate (4-7) Last Admin: 09/18/18 08:32 Dose: 650 mg Folic Acid (Folic Acid) 1 mg PO DAILY [facility] Last Admin: 09/19/18 09:04 Dose: Not Given Piperacillin Sod/Tazobactam Sod (Zosyn 3.375 Gm Iv Premix) 3.375 gm in 50 mls @ 100 mls/hr IVPB Q8H [facility]; Protocol Last Admin: 09/19/18 21:17 Dose: 100 mls/hr Midazolam HCl 100 mg/ Sodium (Chloride) 100 mls @ 1.63 mls/hr IV .Q24H [facility]; Protocol Last Admin: 09/19/18 16:00 Dose: Not Given Lorazepam (Ativan) 2 mg IVP Q4H PRN PRN Reason: Anxiety Last Admin: 09/19/18 05:15 Dose: 2 mg Metoprolol Succinate (Toprol Xl) 50 mg PO DAILY [facility] Last Admin: 09/19/18 09:04 Dose: Not Given Multivitamins/Minerals (Therapeutic-M Tab) 1 tab PO 0800 [facility] Last Admin: 09/19/18 08:00 Dose: Not Given Mupirocin (Bactroban Ointment) 1 gm TOP BID [facility] Last Admin: 09/19/18 17:22 Dose: 1 appl Phenytoin (Dilantin) 100 mg IVP Q8H [facility] Last Admin: 09/19/18 17:51 Dose: Not Given Thiamine HCl (Vitamin B1 Tab) 100 mg PO BID [facility] Last Admin: 09/19/18 17:51 Dose: Not Given - Labs Labs: 09/19/18 06:37 09/19/18 06:37 Assessment and Plan (1) Alcohol abuse Status: Chronic (2) Infected wound Status: Acute (3) Lower extremity cellulitis Status: Acute (4) Right leg pain Status: Acute (5) Seizure disorder Status: Acute (6) Abdominal discomfort Status: Acute (7) CVA (cerebral vascular accident) Status: Acute
[2018-09-20] MEDS: Phenytoin 100 mg/2 ml Inj IVP SCH ×3 (01:00→17:00)
[2018-09-20] MEDS: Piperacill/Tazo 3.375gm in Dex 3.375 GM/50 ML BAG IVPB SCH ×2 (04:20→12:00)
[2018-09-20 05:47] LABS: ARTERIAL BLOOD GAS HCO3 24.2 mmol/L (21-28); ARTERIAL BLOOD GAS HEMOGLOBIN 11.9 g/dL (11.7-17.4); ARTERIAL BLOOD GAS O2 SAT 98.3 % (95-98); ARTERIAL BLOOD GAS PCO2 37 mm/Hg (35-45); ARTERIAL BLOOD GAS PH 7.41 (7.35-7.45); ARTERIAL BLOOD GAS PO2 94 mm/Hg (80-100); ARTERIAL BLOOD GAS TCO2 24.6 mmol/L (22-28)
[2018-09-20 05:59] LABS: BASO # 0.1 K/uL (0.0-0.2); BASO % 0.7 % (0.0-2.0); EOS # 0.1 K/uL (0.0-0.7); EOS % 1.3 % (0.0-4.0); HEMOGLOBIN 11.7 g/dL (12.0-18.0); LYMPH # 1.5 K/uL (1.0-4.3); LYMPH % 16.5 % (20.0-40.0); MEAN CELL VOLUME 102.5 fL (80.0-94.0); MEAN CORPUSCULAR HGB CONC 34.1 g/dL (33.0-37.0); MEAN PLATELET VOLUME 9.3 fL (7.2-11.7); MONO # 2.2 K/uL (0.0-0.8); MONO % 25.3 % (0.0-10.0); NEUT % 56.2 % (50.0-75.0); PLATELET COUNT 182 K/uL (130-400); RBC 3.35 Mil/uL (4.40-5.90); RED CELL DISTRIBUTION WIDTH 14.5 % (11.5-14.5); WHITE BLOOD COUNT 8.8 K/uL (4.8-10.8)
[2018-09-20 06:16] LABS: ALBUMIN 4.4 g/dL (3.5-5.0); ALT/SGPT 41 U/L (21-72); AST/SGOT 78 U/L (17-59); BLOOD UREA NITROGEN 22 mg/dL (9-20); CALCIUM 9.4 mg/dl (8.6-10.4); GFR NON-AFRICAN AMERICAN > 60
--- NOTE | 2018-09-20 08:04 | RAD ---
Chest x-ray single frontal view HISTORY: Ventilated. COMPARISON: 09/19/2018 FINDINGS: Lines and tubes in stable position. Mild venous congestion. Right hilar prominence. Elevated right hemidiaphragm Heart size within normal limits. Surgical clips in the upper abdomen IMPRESSION: Lines and tubes in stable position. Mild venous congestion. Right hilar prominence. Elevated right hemidiaphragm
[2018-09-20 08:56] LABS: EOSINOPHIL 1 % (0-4); LYMPHOCYTE 17 % (20-40); MONOCYTE 23 % (0-10); NEUTROPHIL 59 % (50-75); PLATELET ESTIMATE NORMAL (NORMAL); TOTAL CELLS COUNTED 100
[2018-09-20] MEDS: Multivitamin With Minerals Tab PO SCH (09:00)
[2018-09-20] MEDS: Metoprolol Succinate 50 mg XL Tab PO SCH (09:00)
[2018-09-20 09:02] LABS: ANISOCYTOSIS SLIGHT
[2018-09-20 09:03] LABS: TOXIC GRANULATION PRESENT
[2018-09-20 09:04] LABS: GIANT PLATELETS PRESENT; LARGE PLATELETS PRESENT
[2018-09-20 09:05] LABS: HYPOCHROMIC SLIGHT; POLYCHROMIC SLIGHT
--- NOTE | 2018-09-20 15:49 | CP.PCM.PN ---
Subjective - Date & Time of Evaluation Date of Evaluation: 09/20/18 Time of Evaluation: 15:47 - Subjective Subjective: pt still in icu still entubated and sedated Objective - Vital Signs/Intake and Output Vital Signs (last 24 hours): Temp Pulse Resp BP Pulse Ox 99.4 F 111 H 13 127/81 100 09/20/18 15:44 09/20/18 14:33 09/20/18 14:33 09/20/18 14:33 09/20/18 15:44 Intake and Output: 09/20/18 09/20/18 06:59 18:59 Intake Total 100 0 Output Total 100 450 Balance 0 -450 - Medications Medications: Current Medications Acetaminophen (Tylenol 325mg Tab) 650 mg PO Q6 PRN PRN Reason: Pain, moderate (4-7) Last Admin: 09/18/18 08:32 Dose: 650 mg Folic Acid (Folic Acid) 1 mg PO DAILY [facility] Last Admin: 09/20/18 09:00 Dose: Not Given Piperacillin Sod/Tazobactam Sod (Zosyn 3.375 Gm Iv Premix) 3.375 gm in 50 mls @ 100 mls/hr IVPB Q8H [facility]; Protocol Last Admin: 09/20/18 12:00 Dose: 100 mls/hr Midazolam HCl 100 mg/ Sodium (Chloride) 100 mls @ 1.63 mls/hr IV .Q24H [facility]; Protocol Last Admin: 09/19/18 16:00 Dose: Not Given Lorazepam (Ativan) 2 mg IVP Q4H PRN PRN Reason: Anxiety Last Admin: 09/19/18 05:15 Dose: 2 mg Metoprolol Succinate (Toprol Xl) 50 mg PO DAILY [facility] Last Admin: 09/20/18 09:00 Dose: Not Given Multivitamins/Minerals (Therapeutic-M Tab) 1 tab PO 0800 [facility] Last Admin: 09/20/18 09:00 Dose: Not Given Mupirocin (Bactroban Ointment) 1 gm TOP BID [facility] Last Admin: 09/20/18 09:00 Dose: 1 appl Phenytoin (Dilantin) 100 mg IVP Q8H [facility] Last Admin: 09/20/18 09:00 Dose: 100 mg Thiamine HCl (Vitamin B1 Tab) 100 mg PO BID [facility] Last Admin: 09/20/18 09:00 Dose: Not Given - Labs Labs: 09/20/18 05:48 09/20/18 05:41 - Constitutional Appears: In Acute Distress - Head Exam Head Exam: ATRAUMATIC - Eye Exam Eye Exam: Normal appearance - ENT Exam ENT Exam: Mucous Membranes Dry - Neck Exam Neck Exam: Normal Inspection - Respiratory Exam Respiratory Exam: Decreased Breath Sounds - Cardiovascular Exam Cardiovascular Exam: REGULAR RHYTHM - GI/Abdominal Exam GI & Abdominal Exam: Normal Bowel Sounds - Extremities Exam Extremities Exam: Normal Inspection Additional comments: ulesrs dermatitis infection - Back Exam Back Exam: NORMAL INSPECTION - Skin Additional comments: legs celulitis and ulcers Assessment and Plan - Assessment and Plan (Free Text) Assessment: seiser disorder respiratory failiur on ventilator Plan: as per icu
--- NOTE | 2018-09-20 15:56 | CP.CCUPN ---
CCU Subjective - Physician Review Events Since Last Encounter (Free Text): 09/20/18 15:45 patient is still very lethargic with moments of alertness. CCU Objective - Vital Signs / Intake & Output Vital Signs (Last 4 hours): Vital Signs Temp Pulse Resp BP Pulse Ox 09/20/18 15:44 99.4 F 100 09/20/18 14:33 111 H 13 127/81 98 09/20/18 14:01 110 H 13 100 09/20/18 13:00 106 H 16 132/96 H 100 09/20/18 12:00 99.1 F 101 H 16 136/88 100 Intake and Output (Last 8hrs): Intake & Output 09/20/18 09/20/18 09/20/18 06:59 14:59 22:59 Intake Total 50 0 Output Total 0 450 Balance 50 -450 Weight 171 lb Intake: Intake, IV Amount 50 Left Forearm 50 Oral 0 0 Output: Urine 0 450 Condom 0 Urethral (Becerril) 450 - Physical Exam Physical Exam Limitations: Positive for: Altered Mental Status Head: Positive for: Atraumatic, Normocephalic Pupils: Positive for: PERRL Mouth: Positive for: Moist Mucous Membranes Respiratory/Chest: Positive for: Clear to Auscultation, Other (Patient is in tubated). Negative for: Respiratory Distress, Accessory Muscle Use, Wheezes, Rales, Rhonchi Abdomen: Positive for: Normal Bowel Sounds. Negative for: Tenderness, Distention, Peritoneal Signs Upper Extremity: Positive for: Normal Inspection Lower Extremity: Positive for: Other (Bilateral lower legs dressing C/D/I) Skin: Positive for: Warm, Dry, Rashes, Normal Color, Other (Bilateral lower legs dressing C/D/I) - Medications Active Medications: Active Medications Generic Name Dose Route Start Last Admin Trade Name Freq PRN Reason Stop Dose Admin Acetaminophen 650 mg 09/12/18 10:14 09/18/18 08:32 Tylenol 325mg Tab PO 650 mg Q6 PRN Administration Pain, moderate (4-7) Folic Acid 1 mg 09/18/18 11:15 09/20/18 09:00 Folic Acid PO Not Given DAILY MARISA Piperacillin Sod/Tazobactam Sod 3.375 gm in 50 mls @ 100 mls/hr 09/13/18 12:45 09/20/18 12:00 Zosyn 3.375 Gm Iv Premix IVPB 100 mls/hr Q8H MARISA Administration Protocol Midazolam HCl 100 mg/ Sodium 100 mls @ 1.63 mls/hr 09/18/18 16:15 09/19/18 16:00 Chloride IV Not Given .Q24H MARISA Protocol 0.02 MG/KG/HR Lorazepam 2 mg 09/18/18 22:03 09/19/18 05:15 Ativan IVP 2 mg Q4H PRN Administration Anxiety Metoprolol Succinate 50 mg 09/16/18 10:00 09/20/18 09:00 Toprol Xl PO Not Given DAILY MARISA Multivitamins/Minerals 1 tab 09/17/18 08:00 09/20/18 09:00 Therapeutic-M Tab PO Not Given 0800 [facility] Mupirocin 1 gm 09/11/18 10:00 09/20/18 09:00 Bactroban Ointment TOP 1 appl BID MARISA Administration Phenytoin 100 mg 09/19/18 01:00 09/20/18 09:00 Dilantin IVP 100 mg Q8H MARISA Administration Thiamine HCl 100 mg 09/18/18 11:15 09/20/18 09:00 Vitamin B1 Tab PO Not Given BID MARISA - Patient Studies Lab Studies: Microbiology Studies 09/18/18 22:35 MRSA Culture (Admit) - Final Naris MRSA NOT DETECTED Lab Studies 09/20/18 09/20/18 09/20/18 Range/Units 05:48 05:41 05:41 WBC 8.8 (4.8-10.8) K/uL RBC 3.35 L (4.40-5.90) Mil/uL Hgb 11.7 L (12.0-18.0) g/dL Hct 34.3 L (35.0-51.0) % MCV 102.5 H (80.0-94.0) fL MCH 35.0 H (27.0-31.0) pg MCHC 34.1 (33.0-37.0) g/dL RDW 14.5 (11.5-14.5) % Plt Count 182 (130-400) K/uL MPV 9.3 (7.2-11.7) fL Neut % (Auto) 56.2 (50.0-75.0) % Lymph % (Auto) 16.5 L (20.0-40.0) % [place] % (Auto) 25.3 H (0.0-10.0) % Eos % (Auto) 1.3 (0.0-4.0) % Baso % (Auto) 0.7 (0.0-2.0) % Neut # (Auto) 5.0 (1.8-7.0) K/uL Lymph # (Auto) 1.5 (1.0-4.3) K/uL [place] # (Auto) 2.2 H (0.0-0.8) K/uL Eos # (Auto) 0.1 (0.0-0.7) K/uL Baso # (Auto) 0.1 (0.0-0.2) K/uL Neutrophils % (Manual) 59 (50-75) % Lymphocytes % (Manual) 17 L (20-40) % Monocytes % (Manual) 23 H (0-10) % Eosinophils % (Manual) 1 (0-4) % Toxic Granulation Present Platelet Estimate Normal (NORMAL) Large Platelets Present Giant Platelets Present Polychromasia Slight Hypochromasia (manual) Slight Anisocytosis (manual) Slight Puncture Site pCO2 (35-45) mm/Hg pO2 (80-100) mm/Hg HCO3 (21-28) mmol/L ABG pH (7.35-7.45) ABG Total CO2 (22-28) mmol/L ABG O2 Saturation (95-98) % ABG Base Excess (-2.0-3.0) mmol/L ABG Hemoglobin (11.7-17.4) g/dL ABG Carboxyhemoglobin (0.5-1.5) % POC ABG HHb (Measured) (0.0-5.0) % ABG Methemoglobin (0.0-3.0) % Ulises Test A-a O2 Difference mm/Hg Respiratory Index Hgb O2 Saturation (95.0-98.0) % Vent Mode FiO2 % Pressure Support CPAP Sodium 139 (132-148) mmol/L Potassium 4.3 (3.6-5.2) mmol/L Chloride 103 (98-107) mmol/L Carbon Dioxide 23 (22-30) mmol/L Anion Gap 18 (10-20) BUN 22 H (9-20) mg/dL Creatinine 1.0 (0.8-1.5) mg/dL Est GFR ( Amer) > 60 Est GFR (Non-Af Amer) > 60 Random Glucose 121 H (75-110) mg/dL Calcium 9.4 (8.6-10.4) mg/dl Phosphorus 4.3 (2.5-4.5) mg/dL Magnesium 2.3 (1.6-2.3) mg/dL Total Bilirubin 1.0 (0.2-1.3) mg/dL AST 78 H (17-59) U/L ALT 41 (21-72) U/L Alkaline Phosphatase 88 (38-126) U/L Total Protein 9.0 H (6.3-8.3) g/dL Albumin 4.4 (3.5-5.0) g/dL Globulin 4.6 H (2.2-3.9) gm/dL Albumin/Globulin Ratio 1.0 (1.0-2.1) Phenytoin 16.1 (10-20) ug/mL RPR (NONREACTIVE) 09/20/18 09/19/18 Range/Units 05:09 06:37 WBC (4.8-10.8) K/uL RBC (4.40-5.90) Mil/uL Hgb (12.0-18.0) g/dL Hct (35.0-51.0) % MCV (80.0-94.0) fL MCH (27.0-31.0) pg MCHC (33.0-37.0) g/dL RDW (11.5-14.5) % Plt Count (130-400) K/uL MPV (7.2-11.7) fL Neut % (Auto) (50.0-75.0) % Lymph % (Auto) (20.0-40.0) % [place] % (Auto) (0.0-10.0) % Eos % (Auto) (0.0-4.0) % Baso % (Auto) (0.0-2.0) % Neut # (Auto) (1.8-7.0) K/uL Lymph # (Auto) (1.0-4.3) K/uL [place] # (Auto) (0.0-0.8) K/uL Eos # (Auto) (0.0-0.7) K/uL Baso # (Auto) (0.0-0.2) K/uL Neutrophils % (Manual) (50-75) % Lymphocytes % (Manual) (20-40) % Monocytes % (Manual) (0-10) % Eosinophils % (Manual) (0-4) % Toxic Granulation Platelet Estimate (NORMAL) Large Platelets Giant Platelets Polychromasia Hypochromasia (manual) Anisocytosis (manual) Puncture Site Rb pCO2 37 (35-45) mm/Hg pO2 94 (80-100) mm/Hg HCO3 24.2 (21-28) mmol/L ABG pH 7.41 (7.35-7.45) ABG Total CO2 24.6 (22-28) mmol/L ABG O2 Saturation 98.3 H (95-98) % ABG Base Excess -0.9 (-2.0-3.0) mmol/L ABG Hemoglobin 11.9 (11.7-17.4) g/dL ABG Carboxyhemoglobin 2.2 H (0.5-1.5) % POC ABG HHb (Measured) 1.6 (0.0-5.0) % ABG Methemoglobin 1.2 (0.0-3.0) % Ulises Test Na A-a O2 Difference 109.0 mm/Hg Respiratory Index 1.2 Hgb O2 Saturation 95.0 (95.0-98.0) % Vent Mode Cpap FiO2 35.0 % Pressure Support 10 CPAP 5 Sodium (132-148) mmol/L Potassium (3.6-5.2) mmol/L Chloride (98-107) mmol/L Carbon Dioxide (22-30) mmol/L Anion Gap (10-20) BUN (9-20) mg/dL Creatinine (0.8-1.5) mg/dL Est GFR ( Amer) Est GFR (Non-Af Amer) Random Glucose (75-110) mg/dL Calcium (8.6-10.4) mg/dl Phosphorus (2.5-4.5) mg/dL Magnesium (1.6-2.3) mg/dL Total Bilirubin (0.2-1.3) mg/dL AST (17-59) U/L ALT (21-72) U/L Alkaline Phosphatase (38-126) U/L Total Protein (6.3-8.3) g/dL Albumin (3.5-5.0) g/dL Globulin (2.2-3.9) gm/dL Albumin/Globulin Ratio (1.0-2.1) Phenytoin (10-20) ug/mL RPR Nonreactive (NONREACTIVE) Laboratory Results - last 24 hr 09/19/18 09/20/18 09/20/18 06:37 05:09 05:41 WBC RBC Hgb Hct MCV MCH MCHC RDW Plt Count MPV Neut % (Auto) Lymph % (Auto) [place] % (Auto) Eos % (Auto) Baso % (Auto) Neut # (Auto) Lymph # (Auto) [place] # (Auto) Eos # (Auto) Baso # (Auto) Neutrophils % (Manual) Lymphocytes % (Manual) Monocytes % (Manual) Eosinophils % (Manual) Toxic Granulation Platelet Estimate Large Platelets Giant Platelets Polychromasia Hypochromasia (manual) Anisocytosis (manual) Puncture Site Rb pCO2 37 pO2 94 HCO3 24.2 ABG pH 7.41 ABG Total CO2 24.6 ABG O2 Saturation 98.3 H ABG Base Excess -0.9 ABG Hemoglobin 11.9 ABG Carboxyhemoglobin 2.2 H POC ABG HHb (Measured) 1.6 ABG Methemoglobin 1.2 Ulises Test Na A-a O2 Difference 109.0 Respiratory Index 1.2 Hgb O2 Saturation 95.0 Vent Mode Cpap FiO2 35.0 Pressure Support 10 CPAP 5 Sodium 139 Potassium 4.3 Chloride 103 Carbon Dioxide 23 Anion Gap 18 BUN 22 H Creatinine 1.0 Est GFR ( Amer) > 60 Est GFR (Non-Af Amer) > 60 Random Glucose 121 H Calcium 9.4 Phosphorus 4.3 Magnesium 2.3 Total Bilirubin 1.0 AST 78 H ALT 41 Alkaline Phosphatase 88 Total Protein 9.0 H Albumin 4.4 Globulin 4.6 H Albumin/Globulin Ratio 1.0 Phenytoin RPR Nonreactive 09/20/18 09/20/18 05:41 05:48 WBC 8.8 RBC 3.35 L Hgb 11.7 L Hct 34.3 L MCV 102.5 H MCH 35.0 H MCHC 34.1 RDW 14.5 Plt Count 182 MPV 9.3 Neut % (Auto) 56.2 Lymph % (Auto) 16.5 L [place] % (Auto) 25.3 H Eos % (Auto) 1.3 Baso % (Auto) 0.7 Neut # (Auto) 5.0 Lymph # (Auto) 1.5 [place] # (Auto) 2.2 H Eos # (Auto) 0.1 Baso # (Auto) 0.1 Neutrophils % (Manual) 59 Lymphocytes % (Manual) 17 L Monocytes % (Manual) 23 H Eosinophils % (Manual) 1 Toxic Granulation Present Platelet Estimate Normal Large Platelets Present Giant Platelets Present Polychromasia Slight Hypochromasia (manual) Slight Anisocytosis (manual) Slight Puncture Site pCO2 pO2 HCO3 ABG pH ABG Total CO2 ABG O2 Saturation ABG Base Excess ABG Hemoglobin ABG Carboxyhemoglobin POC ABG HHb (Measured) ABG Methemoglobin Ulises Test A-a O2 Difference Respiratory Index Hgb O2 Saturation Vent Mode FiO2 Pressure Support CPAP Sodium Potassium Chloride Carbon Dioxide Anion Gap BUN Creatinine Est GFR ( Amer) Est GFR (Non-Af Amer) Random Glucose Calcium Phosphorus Magnesium Total Bilirubin AST ALT Alkaline Phosphatase Total Protein Albumin Globulin Albumin/Globulin Ratio Phenytoin 16.1 RPR Fingerstick Blood Sugar Results: 85 Review of Systems - Review of Systems Systems not reviewed;Unavailable: Altered Mental Status Critical Care Progress Note - Nutrition Nutrition: Nutrition Category Date Time Status NPO Diet [DIET] Diets 09/18/18 Dinner Active Assessment/Plan (1) Seizure disorder Assessment and plan: Patient is a 58 year old male with PMH of seizures and alcohol abuse, admitted to ICU for status epilepticus. Neuro: alert occassionally. Continue Dilantin. Adding back Keppra. VEEG on. Pulm: acute respiratory failure secondary to seizures and sedation. CV: hemodynamically stable. Hem: no acute issues Renal: no acute issues Endo: no acutes issues GI: NPO, tube feedings, starting Jevity. ID: no acute issues DVT proph - lovenox GI proph - protonix becerril for strict I/O's during acute illness Code status - full code Critical Care Time spent 35 minutes Multi-disciplinary rounds were performed with house staff, nursing, speech therapy, respiratory therapy, pharmacy and nutrition with integrated input from the primary team/attending and other consulting services. The documented time is cumulative and includes review of patient data/exams/labs/chart review and examination of the patient on rounds and throughout the day; time is exclusive of any procedures or teaching time. Current Visit: Yes Status: Acute
[2018-09-20] MEDS ORDERED: levETIRAcetam 1,000 MG in Sodium Chloride 0.9% 100 ML IVPB ONE (16:00)
--- NOTE | 2018-09-20 16:17 | RAD ---
Chest x-ray single frontal view HISTORY: Endotracheal tube movement. COMPARISON: Endotracheal tube in the midthoracic trachea approximately 3 centimeters above the kwasi. Mild venous congestion. Heart size within normal limits. IMPRESSION: Endotracheal tube in the midthoracic trachea approximately 3 centimeters above the kwasi. Mild venous congestion.
[2018-09-20] MEDS: Enoxaparin 40 mg Syringe SC SCH (17:00)
[2018-09-20] MEDS: Dexmedetomidine Hydrochloride 200 MCG in Sodium Chloride 0.9% 48 ML IV PRN (21:06)
[2018-09-20 22:16] LABS: SQUAMOUS EPITHIAL < 1 /hpf (0-5); URINE BACTERIA FEW (<OCC); URINE BILIRUBIN NEGATIVE (NEGATIVE); URINE BLOOD 3+ (NEGATIVE); URINE CLARITY Clear (Clear); URINE COLOR Amber (YELLOW); URINE GLUCOSE (UA) NORMAL (Normal); URINE LEUKOCYTE ESTERASE 2+ Leu/uL (Negative); URINE PROTEIN 1+ mg/dL (NEGATIVE)
[2018-09-21] MEDS: Phenytoin 100 mg/2 ml Inj IVP SCH ×3 (01:01→18:10)
[2018-09-21 06:05] LABS: ABG ALLEN TEST POS; ARTERIAL BLOOD GAS HCO3 25.1 mmol/L (21-28); ARTERIAL BLOOD GAS HEMOGLOBIN 11.6 g/dL (11.7-17.4); ARTERIAL BLOOD GAS O2 SAT 99.7 % (95-98); ARTERIAL BLOOD GAS PCO2 38 mm/Hg (35-45); ARTERIAL BLOOD GAS PH 7.42 (7.35-7.45); ARTERIAL BLOOD GAS PO2 128 mm/Hg (80-100); ARTERIAL BLOOD GAS TCO2 25.8 mmol/L (22-28)
[2018-09-21] MEDS: Pantoprazole 40 mg Susp UD PO SCH (06:49)
[2018-09-21] MEDS: Dexmedetomidine Hydrochloride 200 MCG in Sodium Chloride 0.9% 48 ML IV PRN (06:50)
[2018-09-21 07:21] LABS: BASO % 0.6 % (0.0-2.0); EOS # 0.3 K/uL (0.0-0.7); EOS % 4.1 % (0.0-4.0); HEMOGLOBIN 11.4 g/dL (12.0-18.0); LYMPH # 1.6 K/uL (1.0-4.3); LYMPH % 20.6 % (20.0-40.0); MEAN CELL VOLUME 102.6 fL (80.0-94.0); MEAN CORPUSCULAR HEMOGLOBIN 34.7 pg (27.0-31.0); MEAN CORPUSCULAR HGB CONC 33.9 g/dL (33.0-37.0); MEAN PLATELET VOLUME 9.1 fL (7.2-11.7); MONO # 1.5 K/uL (0.0-0.8); MONO % 20.1 % (0.0-10.0); NEUT # 4.1 K/uL (1.8-7.0); NEUT % 54.6 % (50.0-75.0); PLATELET COUNT 185 K/uL (130-400); RBC 3.28 Mil/uL (4.40-5.90); RED CELL DISTRIBUTION WIDTH 14.1 % (11.5-14.5); WHITE BLOOD COUNT 7.6 K/uL (4.8-10.8)
[2018-09-21 07:57] LABS: ALB/GLOB RATIO 0.8 (1.0-2.1); ALT/SGPT 38 U/L (21-72); AST/SGOT 94 U/L (17-59); BLOOD UREA NITROGEN 26 mg/dL (9-20); CALCIUM 9.3 mg/dl (8.6-10.4); GFR NON-AFRICAN AMERICAN > 60
[2018-09-21 08:38] LABS: ANISOCYTOSIS SLIGHT; EOSINOPHIL 4 % (0-4); LARGE PLATELETS PRESENT; LYMPHOCYTE 21 % (20-40); MONOCYTE 20 % (0-10); NEUTROPHIL 55 % (50-75); PLATELET ESTIMATE NORMAL (NORMAL); TOTAL CELLS COUNTED 100
[2018-09-21 08:39] LABS: HYPOCHROMIC SLIGHT; POLYCHROMIC SLIGHT; TOXIC GRANULATION PRESENT
--- NOTE | 2018-09-21 08:59 | RAD ---
Chest x-ray single frontal view HISTORY: Intubated. COMPARISON: 09/20/2018 Findings: Endotracheal tube extending into the midthoracic trachea. NG tube extending into the stomach. Mild venous congestion. Heart size within normal limits. Degenerative changes in the spine. Impression: Endotracheal tube extending into the midthoracic trachea. NG tube extending into the stomach. Mild venous congestion.
--- NOTE | 2018-09-21 09:39 | CP.PCM.PN ---
Subjective - Date & Time of Evaluation Date of Evaluation: 09/21/18 Time of Evaluation: 09:36 - Subjective Subjective: pt still entubated sedated in icu on eeg moniter Objective - Vital Signs/Intake and Output Vital Signs (last 24 hours): Temp Pulse Resp BP Pulse Ox 99 F 97 H 15 110/78 100 09/21/18 08:00 09/21/18 07:00 09/21/18 08:00 09/21/18 08:00 09/21/18 08:00 Intake and Output: 09/21/18 09/21/18 06:59 18:59 Intake Total 290 40 Output Total 345 55 Balance -55 -15 - Medications Medications: Current Medications Acetaminophen (Tylenol 325mg Tab) 650 mg PO Q6 PRN PRN Reason: Pain, moderate (4-7) Last Admin: 09/18/18 08:32 Dose: 650 mg Enoxaparin Sodium (Lovenox) 40 mg SC DAILY [facility] Last Admin: 09/20/18 17:00 Dose: 40 mg Folic Acid (Folic Acid) 1 mg PO DAILY [facility] Last Admin: 09/20/18 09:00 Dose: Not Given Levetiracetam 500 mg/ Sodium (Chloride) 105 mls @ 420 mls/hr IVPB Q12H MARISA Dexmedetomidine HCl 200 mcg/ (Sodium Chloride) 50 mls @ 3.88 mls/hr IV TITR PA N; Protocol PRN Reason: Agitation Last Admin: 09/21/18 06:50 Dose: 0.2 mcg/kg/hr, 3.88 mls/hr Lorazepam (Ativan) 2 mg IVP Q4H PRN PRN Reason: Anxiety Last Admin: 09/21/18 09:30 Dose: 2 mg Metoprolol Succinate (Toprol Xl) 50 mg PO DAILY [facility] Last Admin: 09/20/18 09:00 Dose: Not Given Multivitamins/Minerals (Therapeutic-M Tab) 1 tab PO 0800 [facility] Last Admin: 09/20/18 09:00 Dose: Not Given Mupirocin (Bactroban Ointment) 1 gm TOP BID [facility] Last Admin: 09/20/18 18:12 Dose: 1 appl Pantoprazole Sodium (Protonix Susp) 40 mg PO 0600 [facility] Last Admin: 09/21/18 06:49 Dose: 40 mg Phenytoin (Dilantin) 100 mg IVP Q8H [facility] Last Admin: 09/21/18 01:01 Dose: 100 mg Thiamine HCl (Vitamin B1 Tab) 100 mg PO BID [facility] Last Admin: 09/20/18 17:00 Dose: 100 mg - Labs Labs: 09/21/18 07:18 09/21/18 07:18 - Constitutional Appears: Non-toxic - Head Exam Head Exam: ATRAUMATIC - Eye Exam Eye Exam: Normal appearance - ENT Exam ENT Exam: Mucous Membranes Moist - Respiratory Exam Respiratory Exam: Decreased Breath Sounds Additional comments: on ventilator - Cardiovascular Exam Cardiovascular Exam: REGULAR RHYTHM - GI/Abdominal Exam GI & Abdominal Exam: Normal Bowel Sounds - Exam External exam: NORMAL EXTERNAL EXAM - Back Exam Back Exam: NORMAL INSPECTION - Skin Skin Exam: Normal Color Assessment and Plan - Assessment and Plan (Free Text) Assessment: seizer disorder resp failiure on ventilator s/p alc celulitis leg Plan: cont as per orders
[2018-09-21] MEDS: Enoxaparin 40 mg Syringe SC SCH (09:42)
[2018-09-21] MEDS ORDERED: levETIRAcetam 500 MG in Sodium Chloride 0.9% 100 ML IVPB SCH (10:00)
[2018-09-21] MEDS: Multivitamin With Minerals Tab PO SCH (10:26)
[2018-09-21] MEDS: Metoprolol Succinate 50 mg XL Tab PO SCH (10:30)
--- NOTE | 2018-09-21 14:29 | CP.CCUPN ---
CCU Subjective - Physician Review Events Since Last Encounter (Free Text): 09/21/18 14:25 waking up today. CCU Objective - Vital Signs / Intake & Output Vital Signs (Last 4 hours): Vital Signs Temp Pulse Resp BP Pulse Ox 09/21/18 14:00 101 H 19 117/82 09/21/18 13:00 94 H 12 109/72 84 L 09/21/18 12:00 98.5 F 87 12 106/74 100 09/21/18 11:00 92 H 12 96/67 L 100 Intake and Output (Last 8hrs): Intake & Output 09/20/18 09/21/18 09/21/18 22:59 06:59 14:59 Intake Total 240 210 140 Output Total 290 235 251 Balance -50 -25 -111 Weight 173 lb 1.006 oz Intake: IV 50 Intake, IV Amount 100 Left Forearm 100 Oral 0 Tube Feeding 140 160 140 Output: Urine 290 235 251 Urethral (Becerril) 290 235 251 Other: # Bowel Movements 0 0 1 - Physical Exam Physical Exam Limitations: Positive for: Altered Mental Status Head: Positive for: Atraumatic, Normocephalic Pupils: Positive for: PERRL Mouth: Positive for: Moist Mucous Membranes Respiratory/Chest: Positive for: Clear to Auscultation, Other (Patient is intubated). Negative for: Respiratory Distress, Accessory Muscle Use, Wheezes, Rales, Rhonchi Abdomen: Positive for: Normal Bowel Sounds. Negative for: Tenderness, Distention, Peritoneal Signs Upper Extremity: Positive for: Normal Inspection Lower Extremity: Positive for: Other (Bilateral lower legs dressing C/D/I) Skin: Positive for: Warm, Dry, Rashes, Normal Color, Other (Bilateral lower legs dressing C/D/I) - Medications Active Medications: Active Medications Generic Name Dose Route Start Last Admin Trade Name Freq PRN Reason Stop Dose Admin Acetaminophen 650 mg 09/12/18 10:14 09/18/18 08:32 Tylenol 325mg Tab PO 650 mg Q6 PRN Administration Pain, moderate (4-7) Enoxaparin Sodium 40 mg 09/20/18 16:00 09/21/18 09:42 Lovenox SC 40 mg DAILY MARISA Administration Folic Acid 1 mg 09/18/18 11:15 09/21/18 10:27 Folic Acid PO 1 mg DAILY MARISA Administration Levetiracetam 500 mg/ Sodium 105 mls @ 420 mls/hr 09/21/18 10:00 09/21/18 09:41 Chloride IVPB 420 mls/hr Q12H MARISA Administration Metoprolol Succinate 50 mg 09/16/18 10:00 09/21/18 10:30 Toprol Xl PO 50 mg DAILY MARISA Administration Multivitamins/Minerals 1 tab 09/17/18 08:00 09/21/18 10:26 Therapeutic-M Tab PO 1 tab 0800 MARISA Administration Mupirocin 1 gm 09/11/18 10:00 09/21/18 11:36 Bactroban Ointment TOP Not Given BID MARISA Pantoprazole Sodium 40 mg 09/21/18 06:00 09/21/18 06:49 Protonix Susp PO 40 mg 0600 MARISA Administration Phenytoin 100 mg 09/19/18 01:00 09/21/18 09:40 Dilantin IVP 100 mg Q8H MARISA Administration Thiamine HCl 100 mg 09/18/18 11:15 09/21/18 09:44 Vitamin B1 Tab PO 100 mg BID MARISA Administration - Patient Studies Lab Studies: Lab Studies 09/21/18 09/21/18 09/21/18 Range/Units 07:18 07:18 05:45 WBC 7.6 (4.8-10.8) K/uL RBC 3.28 L (4.40-5.90) Mil/uL Hgb 11.4 L (12.0-18.0) g/dL Hct 33.7 L (35.0-51.0) % MCV 102.6 H (80.0-94.0) fL MCH 34.7 H (27.0-31.0) pg MCHC 33.9 (33.0-37.0) g/dL RDW 14.1 (11.5-14.5) % Plt Count 185 (130-400) K/uL MPV 9.1 (7.2-11.7) fL Neut % (Auto) 54.6 (50.0-75.0) % Lymph % (Auto) 20.6 (20.0-40.0) % [place] % (Auto) 20.1 H (0.0-10.0) % Eos % (Auto) 4.1 H (0.0-4.0) % Baso % (Auto) 0.6 (0.0-2.0) % Neut # (Auto) 4.1 (1.8-7.0) K/uL Lymph # (Auto) 1.6 (1.0-4.3) K/uL [place] # (Auto) 1.5 H (0.0-0.8) K/uL Eos # (Auto) 0.3 (0.0-0.7) K/uL Baso # (Auto) 0.0 (0.0-0.2) K/uL Neutrophils % (Manual) 55 (50-75) % Lymphocytes % (Manual) 21 (20-40) % Monocytes % (Manual) 20 H (0-10) % Eosinophils % (Manual) 4 (0-4) % Toxic Granulation Present Platelet Estimate Normal (NORMAL) Large Platelets Present Polychromasia Slight Hypochromasia (manual) Slight Anisocytosis (manual) Slight Macrocytosis (manual) Slight Puncture Site Rradial pCO2 38 (35-45) mm/Hg pO2 128 H (80-100) mm/Hg HCO3 25.1 (21-28) mmol/L ABG pH 7.42 (7.35-7.45) ABG Total CO2 25.8 (22-28) mmol/L ABG O2 Saturation 99.7 H (95-98) % ABG Base Excess 0.2 (-2.0-3.0) mmol/L ABG Hemoglobin 11.6 L (11.7-17.4) g/dL ABG Carboxyhemoglobin 2.2 H (0.5-1.5) % POC ABG HHb (Measured) 0.3 (0.0-5.0) % ABG Methemoglobin 0.9 (0.0-3.0) % Ulises Test Pos A-a O2 Difference 74.0 mm/Hg Respiratory Index 0.6 Hgb O2 Saturation 96.6 (95.0-98.0) % Vent Mode Prvc Mechanical Rate 12 FiO2 35.0 % Tidal Volume 500 PEEP 5 Sodium 140 (132-148) mmol/L Potassium 4.2 (3.6-5.2) mmol/L Chloride 103 (98-107) mmol/L Carbon Dioxide 24 (22-30) mmol/L Anion Gap 17 (10-20) BUN 26 H (9-20) mg/dL Creatinine 1.0 (0.8-1.5) mg/dL Est GFR ( Amer) > 60 Est GFR (Non-Af Amer) > 60 Random Glucose 111 H (75-110) mg/dL Calcium 9.3 (8.6-10.4) mg/dl Phosphorus 4.3 (2.5-4.5) mg/dL Magnesium 2.6 H (1.6-2.3) mg/dL Total Bilirubin 0.7 (0.2-1.3) mg/dL AST 94 H D (17-59) U/L ALT 38 (21-72) U/L Alkaline Phosphatase 81 (38-126) U/L Total Protein 8.8 H (6.3-8.3) g/dL Albumin 4.0 (3.5-5.0) g/dL Globulin 4.8 H (2.2-3.9) gm/dL Albumin/Globulin Ratio 0.8 L (1.0-2.1) Urine Color (YELLOW) Urine Clarity (Clear) Urine pH (5.0-8.0) Ur Specific [place] (1.003-1.030) Urine Protein (NEGATIVE) mg/dL Urine Glucose (UA) (Normal) mg/dL Urine Ketones (NEGATIVE) mg/dL Urine Blood (NEGATIVE) Urine Nitrate (NEGATIVE) Urine Bilirubin (NEGATIVE) Urine Urobilinogen (0.2-1.0) mg/dL Ur Leukocyte Esterase (Negative) [place]/uL Urine WBC (Auto) (0-5) /hpf Urine RBC (Auto) (0-3) /hpf Ur Squamous Epith Cells (0-5) /hpf Urine Bacteria (<OCC) 09/20/18 Range/Units 22:09 WBC (4.8-10.8) K/uL RBC (4.40-5.90) Mil/uL Hgb (12.0-18.0) g/dL Hct (35.0-51.0) % MCV (80.0-94.0) fL MCH (27.0-31.0) pg MCHC (33.0-37.0) g/dL RDW (11.5-14.5) % Plt Count (130-400) K/uL MPV (7.2-11.7) fL Neut % (Auto) (50.0-75.0) % Lymph % (Auto) (20.0-40.0) % [place] % (Auto) (0.0-10.0) % Eos % (Auto) (0.0-4.0) % Baso % (Auto) (0.0-2.0) % Neut # (Auto) (1.8-7.0) K/uL Lymph # (Auto) (1.0-4.3) K/uL [place] # (Auto) (0.0-0.8) K/uL Eos # (Auto) (0.0-0.7) K/uL Baso # (Auto) (0.0-0.2) K/uL Neutrophils % (Manual) (50-75) % Lymphocytes % (Manual) (20-40) % Monocytes % (Manual) (0-10) % Eosinophils % (Manual) (0-4) % Toxic Granulation Platelet Estimate (NORMAL) Large Platelets Polychromasia Hypochromasia (manual) Anisocytosis (manual) Macrocytosis (manual) Puncture Site pCO2 (35-45) mm/Hg pO2 (80-100) mm/Hg HCO3 (21-28) mmol/L ABG pH (7.35-7.45) ABG Total CO2 (22-28) mmol/L ABG O2 Saturation (95-98) % ABG Base Excess (-2.0-3.0) mmol/L ABG Hemoglobin (11.7-17.4) g/dL ABG Carboxyhemoglobin (0.5-1.5) % POC ABG HHb (Measured) (0.0-5.0) % ABG Methemoglobin (0.0-3.0) % Ulises Test A-a O2 Difference mm/Hg Respiratory Index Hgb O2 Saturation (95.0-98.0) % Vent Mode Mechanical Rate FiO2 % Tidal Volume PEEP Sodium (132-148) mmol/L Potassium (3.6-5.2) mmol/L Chloride (98-107) mmol/L Carbon Dioxide (22-30) mmol/L Anion Gap (10-20) BUN (9-20) mg/dL Creatinine (0.8-1.5) mg/dL Est GFR ( Amer) Est GFR (Non-Af Amer) Random Glucose (75-110) mg/dL Calcium (8.6-10.4) mg/dl Phosphorus (2.5-4.5) mg/dL Magnesium (1.6-2.3) mg/dL Total Bilirubin (0.2-1.3) mg/dL AST (17-59) U/L ALT (21-72) U/L Alkaline Phosphatase (38-126) U/L Total Protein (6.3-8.3) g/dL Albumin (3.5-5.0) g/dL Globulin (2.2-3.9) gm/dL Albumin/Globulin Ratio (1.0-2.1) Urine Color [place] (YELLOW) Urine Clarity Clear (Clear) Urine pH 5.0 (5.0-8.0) Ur Specific [place] 1.038 H (1.003-1.030) Urine Protein 1+ H (NEGATIVE) mg/dL Urine Glucose (UA) Normal (Normal) mg/dL Urine Ketones Negative (NEGATIVE) mg/dL Urine Blood 3+ H (NEGATIVE) Urine Nitrate Negative (NEGATIVE) Urine Bilirubin Negative (NEGATIVE) Urine Urobilinogen 2.0 (0.2-1.0) mg/dL Ur Leukocyte Esterase 2+ H (Negative) [place]/uL Urine WBC (Auto) 25 H (0-5) /hpf Urine RBC (Auto) 82 H (0-3) /hpf Ur Squamous Epith Cells < 1 (0-5) /hpf Urine Bacteria Few H (<OCC) Laboratory Results - last 24 hr 09/20/18 09/21/18 09/21/18 22:09 05:45 07:18 WBC 7.6 RBC 3.28 L Hgb 11.4 L Hct 33.7 L MCV 102.6 H MCH 34.7 H MCHC 33.9 RDW 14.1 Plt Count 185 MPV 9.1 Neut % (Auto) 54.6 Lymph % (Auto) 20.6 [place] % (Auto) 20.1 H Eos % (Auto) 4.1 H Baso % (Auto) 0.6 Neut # (Auto) 4.1 Lymph # (Auto) 1.6 [place] # (Auto) 1.5 H Eos # (Auto) 0.3 Baso # (Auto) 0.0 Neutrophils % (Manual) 55 Lymphocytes % (Manual) 21 Monocytes % (Manual) 20 H Eosinophils % (Manual) 4 Toxic Granulation Present Platelet Estimate Normal Large Platelets Present Polychromasia Slight Hypochromasia (manual) Slight Anisocytosis (manual) Slight Macrocytosis (manual) Slight Puncture Site Rradial pCO2 38 pO2 128 H HCO3 25.1 ABG pH 7.42 ABG Total CO2 25.8 ABG O2 Saturation 99.7 H ABG Base Excess 0.2 ABG Hemoglobin 11.6 L ABG Carboxyhemoglobin 2.2 H POC ABG HHb (Measured) 0.3 ABG Methemoglobin 0.9 Ulises Test Pos A-a O2 Difference 74.0 Respiratory Index 0.6 Hgb O2 Saturation 96.6 Vent Mode Prvc Mechanical Rate 12 FiO2 35.0 Tidal Volume 500 PEEP 5 Sodium Potassium Chloride Carbon Dioxide Anion Gap BUN Creatinine Est GFR ( Amer) Est GFR (Non-Af Amer) Random Glucose Calcium Phosphorus Magnesium Total Bilirubin AST ALT Alkaline Phosphatase Total Protein Albumin Globulin Albumin/Globulin Ratio Urine Color [place] Urine Clarity Clear Urine pH 5.0 Ur Specific [place] 1.038 H Urine Protein 1+ H Urine Glucose (UA) Normal Urine Ketones Negative Urine Blood 3+ H Urine Nitrate Negative Urine Bilirubin Negative Urine Urobilinogen 2.0 Ur Leukocyte Esterase 2+ H Urine WBC (Auto) 25 H Urine RBC (Auto) 82 H Ur Squamous Epith Cells < 1 Urine Bacteria Few H 09/21/18 07:18 WBC RBC Hgb Hct MCV MCH MCHC RDW Plt Count MPV Neut % (Auto) Lymph % (Auto) [place] % (Auto) Eos % (Auto) Baso % (Auto) Neut # (Auto) Lymph # (Auto) [place] # (Auto) Eos # (Auto) Baso # (Auto) Neutrophils % (Manual) Lymphocytes % (Manual) Monocytes % (Manual) Eosinophils % (Manual) Toxic Granulation Platelet Estimate Large Platelets Polychromasia Hypochromasia (manual) Anisocytosis (manual) Macrocytosis (manual) Puncture Site pCO2 pO2 HCO3 ABG pH ABG Total CO2 ABG O2 Saturation ABG Base Excess ABG Hemoglobin ABG Carboxyhemoglobin POC ABG HHb (Measured) ABG Methemoglobin Ulises Test A-a O2 Difference Respiratory Index Hgb O2 Saturation Vent Mode Mechanical Rate FiO2 Tidal Volume PEEP Sodium 140 Potassium 4.2 Chloride 103 Carbon Dioxide 24 Anion Gap 17 BUN 26 H Creatinine 1.0 Est GFR ( Amer) > 60 Est GFR (Non-Af Amer) > 60 Random Glucose 111 H Calcium 9.3 Phosphorus 4.3 Magnesium 2.6 H Total Bilirubin 0.7 AST 94 H D ALT 38 Alkaline Phosphatase 81 Total Protein 8.8 H Albumin 4.0 Globulin 4.8 H Albumin/Globulin Ratio 0.8 L Urine Color Urine Clarity Urine pH Ur Specific [place] Urine Protein Urine Glucose (UA) Urine Ketones Urine Blood Urine Nitrate Urine Bilirubin Urine Urobilinogen Ur Leukocyte Esterase Urine WBC (Auto) Urine RBC (Auto) Ur Squamous Epith Cells Urine Bacteria Fingerstick Blood Sugar Results: 85 Review of Systems - Review of Systems Systems not reviewed;Unavailable: Intubated Critical Care Progress Note - Ventilator Checklist Head of Bed 30 Degrees: Yes Daily Sedation Vacation: Yes Daily Assessment of Readiness to Wean: Yes Daily Spontaneous Breathing Trial: Yes PUD Prophalyxis: Yes DVT Prophylaxis: Yes Oral Care with Chlorhexidine Gluconate {CHG}: Yes - Nutrition Nutrition: Nutrition Category Date Time Status NPO Diet [DIET] Diets 09/18/18 Dinner Active Assessment/Plan (1) Seizure disorder Assessment and plan: Patient is a 58 year old male with PMH of seizures and alcohol abuse, admitted to ICU for status epilepticus. Neuro: alert occassionally. Continue Dilantin and Keppra. VEEG negative, missed episodes. DO NOT STOP KEPPRA, as patient had immediate withdrawal seizures (09/19). Discussed with neurologist, not Dr. Paris, who advised to decrease Dilantin by 100mg daily over 3 days. Pulm: acute respiratory failure secondary to seizures and sedation, on vent. CV: hemodynamically stable. Hem: no acute issues Renal: no acute issues Endo: no acutes issues GI: NPO, tube feedings, continue Jevity. ID: no acute issues DVT proph - lovenox GI proph - protonix becerril for strict I/O's during acute illness Code status - full code Critical Care Time spent 35 minutes Multi-disciplinary rounds were performed with house staff, nursing, speech therapy, respiratory therapy, pharmacy and nutrition with integrated input from the primary team/attending and other consulting services. The documented time is cumulative and includes review of patient data/exams/labs/chart review and examination of the patient on rounds and throughout the day; time is exclusive of any procedures or teaching time. Current Visit: Yes Status: Acute
--- NOTE | 2018-09-21 21:24 | CP.PCM.PN ---
Subjective - Date & Time of Evaluation Date of Evaluation: 09/21/18 Time of Evaluation: 21:21 - Subjective Subjective: He has no seizures. He was successfully extubated. He is disoriented to persons, plsce and time, looks more confused due to alcohol abuse, seizures, Delirium, Prolonged admission and stress. His VS are seen and we will try to give a supply of Vitamin D and Calcium. No seizures, he is on Dilantin. Keppra was added while he was wll controlled on Dilantin. Keppra was D/C and will get a level of Dilantin. Objective - Vital Signs/Intake and Output Vital Signs (last 24 hours): Temp Pulse Resp BP Pulse Ox 98.8 F 109 H 20 125/87 96 09/21/18 16:00 09/21/18 18:00 09/21/18 18:00 09/21/18 18:00 09/21/18 18:00 Intake and Output: 09/21/18 09/22/18 18:59 06:59 Intake Total 370 Output Total 461 Balance -91 - Medications Medications: Current Medications Acetaminophen (Tylenol 325mg Tab) 650 mg PO Q6 PRN PRN Reason: Pain, moderate (4-7) Last Admin: 09/18/18 08:32 Dose: 650 mg Albuterol/Ipratropium (Duoneb 3 Mg/0.5 Mg (3 Ml) Ud) 3 ml INH RQ6 [facility] Enoxaparin Sodium (Lovenox) 40 mg SC DAILY [facility] Last Admin: 09/21/18 09:42 Dose: 40 mg Folic Acid (Folic Acid) 1 mg PO DAILY [facility] Last Admin: 09/21/18 10:27 Dose: 1 mg Levetiracetam 500 mg/ Sodium (Chloride) 105 mls @ 420 mls/hr IVPB Q12H [facility] Last Admin: 09/21/18 09:41 Dose: 420 mls/hr Methylprednisolone (Solu-Medrol) 40 mg IVP Q8H [facility] Metoprolol Succinate (Toprol Xl) 50 mg PO DAILY [facility] Last Admin: 09/21/18 10:30 Dose: 50 mg Multivitamins/Minerals (Therapeutic-M Tab) 1 tab PO 0800 [facility] Last Admin: 09/21/18 10:26 Dose: 1 tab Mupirocin (Bactroban Ointment) 1 gm TOP BID [facility] Last Admin: 09/21/18 18:24 Dose: 1 appl Pantoprazole Sodium (Protonix Susp) 40 mg PO 0600 [facility] Last Admin: 09/21/18 06:49 Dose: 40 mg Phenytoin (Dilantin) 100 mg IVP Q8H [facility] Last Admin: 09/21/18 18:10 Dose: 100 mg Thiamine HCl (Vitamin B1 Tab) 100 mg PO BID [facility] Last Admin: 09/21/18 18:23 Dose: 100 mg - Labs Labs: 09/21/18 07:18 09/21/18 07:18 Assessment and Plan (1) Alcohol abuse Status: Chronic (2) Infected wound Status: Acute (3) Lower extremity cellulitis Status: Acute (4) Right leg pain Status: Acute (5) Seizure disorder Status: Acute (6) Abdominal discomfort Status: Acute (7) CVA (cerebral vascular accident) Status: Acute
[2018-09-22] MEDS: Albuterol-Ipratrop 3 mg / 0.5 (3 ml) UD INH SCH ×4 (01:17→19:17)
[2018-09-22] MEDS: Phenytoin 100 mg/2 ml Inj IVP SCH ×3 (02:30→14:30)
[2018-09-22] MEDS ORDERED: Phenytoin 100 mg/2 ml Inj IVP SCH (06:00)
[2018-09-22] MEDS: Pantoprazole 40 mg Susp UD PO SCH ×2 (06:13→09:55)
[2018-09-22 06:33] LABS: BASO # 0.1 K/uL (0.0-0.2); BASO % 0.8 % (0.0-2.0); EOS % 0.1 % (0.0-4.0); HEMOGLOBIN 11.5 g/dL (12.0-18.0); LYMPH # 0.9 K/uL (1.0-4.3); LYMPH % 13.2 % (20.0-40.0); MEAN CELL VOLUME 102.7 fL (80.0-94.0); MEAN CORPUSCULAR HEMOGLOBIN 35.2 pg (27.0-31.0); MEAN CORPUSCULAR HGB CONC 34.3 g/dL (33.0-37.0); MEAN PLATELET VOLUME 9.1 fL (7.2-11.7); MONO # 0.4 K/uL (0.0-0.8); NEUT # 5.7 K/uL (1.8-7.0); NEUT % 79.9 % (50.0-75.0); RBC 3.27 Mil/uL (4.40-5.90); RED CELL DISTRIBUTION WIDTH 14.1 % (11.5-14.5); WHITE BLOOD COUNT 7.2 K/uL (4.8-10.8)
[2018-09-22 06:43] LABS: ALB/GLOB RATIO 0.9 (1.0-2.1); ALBUMIN 4.3 g/dL (3.5-5.0); ALT/SGPT 41 U/L (21-72); AST/SGOT 78 U/L (17-59); BLOOD UREA NITROGEN 28 mg/dL (9-20); CALCIUM 9.7 mg/dl (8.6-10.4); GFR NON-AFRICAN AMERICAN > 60
[2018-09-22] MEDS: MethylPREDNISolone 40 mg Vial IVP SCH ×2 (08:55→17:48)
[2018-09-22] MEDS: Enoxaparin 40 mg Syringe SC SCH (09:55)
[2018-09-22] MEDS: Metoprolol Succinate 50 mg XL Tab PO SCH (09:56)
[2018-09-22] MEDS: Multivitamin With Minerals Tab PO SCH (10:49)
--- NOTE | 2018-09-22 12:52 | CP.CCUPN ---
CCU Subjective - Physician Review Events Since Last Encounter (Free Text): 09/22/18 12:52 Pt stable for transfer to med/surg. CCU Objective - Vital Signs / Intake & Output Vital Signs (Last 4 hours): Vital Signs Temp Pulse Resp BP Pulse Ox 09/22/18 12:01 88 24 108/78 97 09/22/18 12:00 99 F 87 22 122/78 99 09/22/18 11:00 98 H 22 99 09/22/18 10:00 97 H 09/22/18 09:00 89 24 100 Intake and Output (Last 8hrs): Intake & Output 09/21/18 09/22/18 09/22/18 22:59 06:59 14:59 Intake Total 230 700 Output Total 395 285 751 Balance -165 -285 -51 Weight 170 lb 12.8 oz Intake: Oral 700 Tube Feeding 80 Other 150 Output: Urine 395 285 750 Urethral ([place]) 395 285 750 Urine/Stool Mix 1 - Physical Exam Head: Positive for: Atraumatic, Normocephalic Pupils: Positive for: PERRL Mouth: Positive for: Moist Mucous Membranes Respiratory/Chest: Positive for: Clear to Auscultation, Other (Patient is intubated). Negative for: Respiratory Distress, Accessory Muscle Use, Wheezes, Rales, Rhonchi Abdomen: Positive for: Normal Bowel Sounds. Negative for: Tenderness, Distention, Peritoneal Signs Upper Extremity: Positive for: Normal Inspection Lower Extremity: Positive for: Other (Bilateral lower legs dressing C/D/I) Skin: Positive for: Warm, Dry, Rashes, Normal Color, Other (Bilateral lower legs dressing C/D/I) - Medications Active Medications: Active Medications Generic Name Dose Route Start Last Admin Trade Name Freq PRN Reason Stop Dose Admin Acetaminophen 650 mg 09/12/18 10:14 09/22/18 10:46 Tylenol 325mg Tab PO 650 mg Q6 PRN Administration Pain, moderate (4-7) Albuterol/Ipratropium 3 ml 09/21/18 20:00 09/22/18 07:49 Duoneb 3 Mg/0.5 Mg (3 Ml) Ud INH 3 ml RQ6 MARISA Administration Enoxaparin Sodium 40 mg 09/20/18 16:00 09/22/18 09:55 Lovenox SC 40 mg DAILY MARISA Administration Folic Acid 1 mg 09/18/18 11:15 09/22/18 09:56 Folic Acid PO 1 mg DAILY MARISA Administration Methylprednisolone 40 mg 09/22/18 08:00 09/22/18 08:55 Solu-Medrol IVP 40 mg Q8H MARISA Administration Metoprolol Succinate 50 mg 09/16/18 10:00 09/22/18 09:56 Toprol Xl PO 50 mg DAILY MARISA Administration Multivitamins/Minerals 1 tab 09/17/18 08:00 09/22/18 10:49 Therapeutic-M Tab PO 1 tab 0800 MARISA Administration Mupirocin 1 gm 09/11/18 10:00 09/22/18 09:57 Bactroban Ointment TOP Not Given BID [facility] Pantoprazole Sodium 40 mg 09/22/18 10:00 09/22/18 09:55 Protonix Susp PO 40 mg 0600 MARISA Administration Phenytoin 100 mg 09/22/18 14:00 Dilantin PO TID MARISA Thiamine HCl 100 mg 09/18/18 11:15 09/22/18 09:56 Vitamin B1 Tab PO 100 mg BID MARISA Administration - Patient Studies Lab Studies: Microbiology Studies 09/20/18 18:59 Urine Culture - Final Urine,Clean Catch No Growth (<1,000 CFU/ML) Lab Studies 09/22/18 09/22/18 09/22/18 Range/Units 11:10 06:36 06:22 WBC 7.2 (4.8-10.8) K/uL RBC 3.27 L (4.40-5.90) Mil/uL Hgb 11.5 L (12.0-18.0) g/dL Hct 33.5 L (35.0-51.0) % MCV 102.7 H (80.0-94.0) fL MCH 35.2 H (27.0-31.0) pg MCHC 34.3 (33.0-37.0) g/dL RDW 14.1 (11.5-14.5) % Plt Count 199 (130-400) K/uL MPV 9.1 (7.2-11.7) fL Neut % (Auto) 79.9 H (50.0-75.0) % Lymph % (Auto) 13.2 L (20.0-40.0) % [place] % (Auto) 6.0 (0.0-10.0) % Eos % (Auto) 0.1 (0.0-4.0) % Baso % (Auto) 0.8 (0.0-2.0) % Neut # (Auto) 5.7 (1.8-7.0) K/uL Lymph # (Auto) 0.9 L (1.0-4.3) K/uL [place] # (Auto) 0.4 (0.0-0.8) K/uL Eos # (Auto) 0.0 (0.0-0.7) K/uL Baso # (Auto) 0.1 (0.0-0.2) K/uL Sodium (132-148) mmol/L Potassium (3.6-5.2) mmol/L Chloride (98-107) mmol/L Carbon Dioxide (22-30) mmol/L Anion Gap (10-20) BUN (9-20) mg/dL Creatinine (0.8-1.5) mg/dL Est GFR ( Amer) Est GFR (Non-Af Amer) POC Glucose (mg/dL) 110 114 H (65-110) mg/dL Random Glucose (75-110) mg/dL Calcium (8.6-10.4) mg/dl Phosphorus (2.5-4.5) mg/dL Magnesium (1.6-2.3) mg/dL Total Bilirubin (0.2-1.3) mg/dL AST (17-59) U/L ALT (21-72) U/L Alkaline Phosphatase (38-126) U/L Total Protein (6.3-8.3) g/dL Albumin (3.5-5.0) g/dL Globulin (2.2-3.9) gm/dL Albumin/Globulin Ratio (1.0-2.1) Phenytoin (10-20) ug/mL 09/22/18 09/22/18 09/22/18 Range/Units 06:16 06:16 01:23 WBC (4.8-10.8) K/uL RBC (4.40-5.90) Mil/uL Hgb (12.0-18.0) g/dL Hct (35.0-51.0) % MCV (80.0-94.0) fL MCH (27.0-31.0) pg MCHC (33.0-37.0) g/dL RDW (11.5-14.5) % Plt Count (130-400) K/uL MPV (7.2-11.7) fL Neut % (Auto) (50.0-75.0) % Lymph % (Auto) (20.0-40.0) % [place] % (Auto) (0.0-10.0) % Eos % (Auto) (0.0-4.0) % Baso % (Auto) (0.0-2.0) % Neut # (Auto) (1.8-7.0) K/uL Lymph # (Auto) (1.0-4.3) K/uL [place] # (Auto) (0.0-0.8) K/uL Eos # (Auto) (0.0-0.7) K/uL Baso # (Auto) (0.0-0.2) K/uL Sodium 146 (132-148) mmol/L Potassium 4.3 (3.6-5.2) mmol/L Chloride 107 (98-107) mmol/L Carbon Dioxide 26 (22-30) mmol/L Anion Gap 17 (10-20) BUN 28 H (9-20) mg/dL Creatinine 0.8 (0.8-1.5) mg/dL Est GFR ( Amer) > 60 Est GFR (Non-Af Amer) > 60 POC Glucose (mg/dL) 116 H (65-110) mg/dL Random Glucose 123 H (75-110) mg/dL Calcium 9.7 (8.6-10.4) mg/dl Phosphorus 5.1 H (2.5-4.5) mg/dL Magnesium 2.4 H (1.6-2.3) mg/dL Total Bilirubin 0.6 (0.2-1.3) mg/dL AST 78 H (17-59) U/L ALT 41 (21-72) U/L Alkaline Phosphatase 108 (38-126) U/L Total Protein 8.9 H (6.3-8.3) g/dL Albumin 4.3 (3.5-5.0) g/dL Globulin 4.7 H (2.2-3.9) gm/dL Albumin/Globulin Ratio 0.9 L (1.0-2.1) Phenytoin 14.7 (10-20) ug/mL Laboratory Results - last 24 hr 09/22/18 09/22/18 09/22/18 01:23 06:16 06:16 WBC RBC Hgb Hct MCV MCH MCHC RDW Plt Count MPV Neut % (Auto) Lymph % (Auto) [place] % (Auto) Eos % (Auto) Baso % (Auto) Neut # (Auto) Lymph # (Auto) [place] # (Auto) Eos # (Auto) Baso # (Auto) Sodium 146 Potassium 4.3 Chloride 107 Carbon Dioxide 26 Anion Gap 17 BUN 28 H Creatinine 0.8 Est GFR ( Amer) > 60 Est GFR (Non-Af Amer) > 60 POC Glucose (mg/dL) 116 H Random Glucose 123 H Calcium 9.7 Phosphorus 5.1 H Magnesium 2.4 H Total Bilirubin 0.6 AST 78 H ALT 41 Alkaline Phosphatase 108 Total Protein 8.9 H Albumin 4.3 Globulin 4.7 H Albumin/Globulin Ratio 0.9 L Phenytoin 14.7 09/22/18 09/22/18 09/22/18 06:22 06:36 11:10 WBC 7.2 RBC 3.27 L Hgb 11.5 L Hct 33.5 L MCV 102.7 H MCH 35.2 H MCHC 34.3 RDW 14.1 Plt Count 199 MPV 9.1 Neut % (Auto) 79.9 H Lymph % (Auto) 13.2 L [place] % (Auto) 6.0 Eos % (Auto) 0.1 Baso % (Auto) 0.8 Neut # (Auto) 5.7 Lymph # (Auto) 0.9 L [place] # (Auto) 0.4 Eos # (Auto) 0.0 Baso # (Auto) 0.1 Sodium Potassium Chloride Carbon Dioxide Anion Gap BUN Creatinine Est GFR ( Amer) Est GFR (Non-Af Amer) POC Glucose (mg/dL) 114 H 110 Random Glucose Calcium Phosphorus Magnesium Total Bilirubin AST ALT Alkaline Phosphatase Total Protein Albumin Globulin Albumin/Globulin Ratio Phenytoin Fingerstick Blood Sugar Results: 114 Critical Care Progress Note - Nutrition Nutrition: Nutrition Category Date Time Status Soft [Dysphagia/Modified Consistency Diet] [DIET] Diets 09/22/18 Breakfast Active
--- NOTE | 2018-09-22 14:37 | PCM.VEEG ---
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 EEG activity was digitally recorded referentially to P1/P2 or A1/A2 electrodes. Digital analysis was used for spike detection. Continuous monitoring with EEG was performed using spike and seizures detection algorithms for digital EEG analysis throughout the monitoring period, to screen to EEG in real-time and simone the date file with pointers to electrographic seizures and interictal discharges. Physician, epileptologist reviewed detections, as well as extensive random samples and whole EEG study in detail. Digital EEG Analysis: was carried out including FFT (Fast Fourier Transform), R2D2 (Rhythmicity Run Detection and Display), Relative Asymmetry Spectrogram, and voltage plot by the [employer]. The Qualitative EEG analysis, and the voltage plot mapping were used for detection of foci of paroxysmal and abnormal electrical cortical activity. Interpretation: This was a normal awake and asleep routine ambulatory EEG recording. The background activity consisted of symmetrical posterior dominant 8-10 Hz Alpha. Activation Procedures: Hyperventilation and photic stimulation were done and did not reveal any abnormalities. Sleep Patterns: The drowsy portion of the recording was characterized by attenuation of the background activity with the presence of low amplitude activity seen diffusely. Sleep stage II was recorded and revealed normal vertex waves and sleep spindles. Slow wave sleep with K complexes, posts was recorded with no abnormalities noted. Clinical Impression: The posterior dominant rhythm shows a poorly organized 4-6 hz background rhythm that is reactive and symmetric. There were no interictal epileptiform discharges noted. This is a slower than normal video EEG recording. The presence of slower than normal background rhythm signifies encephalopathy. Clinical correlation is required. Thank you DR. maranda PAGE Neurology and Epilepsy - Impression Impression: This is an abnormal awake and sleep EEG. There were no clinical or subclinical seizures but the background was slow. Clinical correlation is required.
[2018-09-22] MEDS: Phenytoin 100 mg/4 ml Oral Susp UD PO SCH ×2 (14:45→18:03)
--- NOTE | 2018-09-22 17:38 | CP.PCM.PN ---
Subjective - Date & Time of Evaluation Date of Evaluation: 09/22/18 Time of Evaluation: 17:36 - Subjective Subjective: pt extubated lookes comfortable no seizers Objective - Vital Signs/Intake and Output Vital Signs (last 24 hours): Temp Pulse Resp BP Pulse Ox 99 F 88 24 108/78 97 09/22/18 12:00 09/22/18 12:01 09/22/18 12:01 09/22/18 12:01 09/22/18 12:01 Intake and Output: 09/22/18 09/22/18 06:59 18:59 Intake Total 0 1620 Output Total 470 1151 Balance -470 469 - Medications Medications: Current Medications Acetaminophen (Tylenol 325mg Tab) 650 mg PO Q6 PRN PRN Reason: Pain, moderate (4-7) Last Admin: 09/22/18 10:46 Dose: 650 mg Albuterol/Ipratropium (Duoneb 3 Mg/0.5 Mg (3 Ml) Ud) 3 ml INH RQ6 [facility] Last Admin: 09/22/18 13:46 Dose: Not Given Enoxaparin Sodium (Lovenox) 40 mg SC DAILY [facility] Last Admin: 09/22/18 09:55 Dose: 40 mg Folic Acid (Folic Acid) 1 mg PO DAILY [facility] Last Admin: 09/22/18 09:56 Dose: 1 mg Methylprednisolone (Solu-Medrol) 40 mg IVP Q8H [facility] Last Admin: 09/22/18 08:55 Dose: 40 mg Metoprolol Succinate (Toprol Xl) 50 mg PO DAILY [facility] Last Admin: 09/22/18 09:56 Dose: 50 mg Multivitamins/Minerals (Therapeutic-M Tab) 1 tab PO 0800 [facility] Last Admin: 09/22/18 10:49 Dose: 1 tab Pantoprazole Sodium (Protonix Susp) 40 mg PO 0600 [facility] Last Admin: 09/22/18 09:55 Dose: 40 mg Phenytoin (Dilantin) 100 mg PO TID [facility] Last Admin: 09/22/18 14:45 Dose: 100 mg Thiamine HCl (Vitamin B1 Tab) 100 mg PO BID [facility] Last Admin: 09/22/18 09:56 Dose: 100 mg - Labs Labs: 09/22/18 06:22 09/22/18 06:16 - Constitutional Appears: Non-toxic - Head Exam Head Exam: NORMAL INSPECTION - Eye Exam Eye Exam: Normal appearance - ENT Exam ENT Exam: Normal Exam - Respiratory Exam Respiratory Exam: Decreased Breath Sounds - Cardiovascular Exam Cardiovascular Exam: REGULAR RHYTHM - GI/Abdominal Exam GI & Abdominal Exam: Normal Bowel Sounds - Extremities Exam Extremities Exam: Normal Inspection - Back Exam Back Exam: NORMAL INSPECTION - Psychiatric Exam Psychiatric exam: Normal Affect - Skin Skin Exam: Normal Color Assessment and Plan - Assessment and Plan (Free Text) Assessment: seizer disorder s/p resp failiure s/p alirio abuse generalised weekness Plan: cont as per orders
[2018-09-22] MEDS ORDERED: Ergocalciferol 50,000 Intl Units Cap PO SCH (22:00)
--- NOTE | 2018-09-22 22:08 | CP.PCM.PN ---
Subjective - Date & Time of Evaluation Date of Evaluation: 09/22/18 Time of Evaluation: 21:30 - Subjective Subjective: Extubated and his seizures are controlled on Po Dilantin 100 mg Q 8 hrs. Dilantin level is 14.3 after holding 1 dose of Dilantin. Off keppra. He is on treatment for leg cellulitis. Abnormal 24 hrs EEG Consistent with Encephalopathy. Objective - Vital Signs/Intake and Output Vital Signs (last 24 hours): Temp Pulse Resp BP Pulse Ox 97.7 F 80 20 102/66 100 09/22/18 20:00 09/22/18 20:00 09/22/18 20:00 09/22/18 20:00 09/22/18 20:00 Intake and Output: 09/22/18 09/23/18 18:59 06:59 Intake Total 1860 Output Total 1251 Balance 609 - Medications Medications: Current Medications Acetaminophen (Tylenol 325mg Tab) 650 mg PO Q6 PRN PRN Reason: Pain, moderate (4-7) Last Admin: 09/22/18 10:46 Dose: 650 mg Albuterol/Ipratropium (Duoneb 3 Mg/0.5 Mg (3 Ml) Ud) 3 ml INH RQ6 [facility] Last Admin: 09/22/18 19:17 Dose: 3 ml Calcium Carbonate (Oscal) 500 mg PO BID [facility] Enoxaparin Sodium (Lovenox) 40 mg SC DAILY [facility] Last Admin: 09/22/18 09:55 Dose: 40 mg Ergocalciferol (Drisdol 50,000 Intl Units Cap) 1 cap PO Q7D [facility] Folic Acid (Folic Acid) 1 mg PO DAILY [facility] Last Admin: 09/22/18 09:56 Dose: 1 mg Methylprednisolone (Solu-Medrol) 40 mg IVP Q8H [facility] Last Admin: 09/22/18 17:48 Dose: Not Given Metoprolol Succinate (Toprol Xl) 50 mg PO DAILY [facility] Last Admin: 09/22/18 09:56 Dose: 50 mg Multivitamins/Minerals (Therapeutic-M Tab) 1 tab PO 0800 [facility] Last Admin: 09/22/18 10:49 Dose: 1 tab Pantoprazole Sodium (Protonix Susp) 40 mg PO 0600 [facility] Last Admin: 09/22/18 09:55 Dose: 40 mg Phenytoin (Dilantin) 100 mg PO TID [facility] Last Admin: 09/22/18 18:03 Dose: 100 mg Thiamine HCl (Vitamin B1 Tab) 100 mg PO BID [facility] Last Admin: 09/22/18 18:04 Dose: Not Given - Labs Labs: 09/22/18 06:22 09/22/18 06:16 Assessment and Plan (1) Alcohol abuse Status: Chronic (2) Infected wound Status: Acute (3) Lower extremity cellulitis Status: Acute (4) Right leg pain Status: Acute (5) Seizure disorder Status: Acute (6) Abdominal discomfort Status: Acute (7) CVA (cerebral vascular accident) Status: Acute
[2018-09-23] MEDS: MethylPREDNISolone 40 mg Vial IVP SCH ×3 (00:30→15:35)
[2018-09-23] MEDS: Albuterol-Ipratrop 3 mg / 0.5 (3 ml) UD INH SCH ×4 (02:23→19:52)
[2018-09-23 05:56] LABS: BASO % 0.8 % (0.0-2.0); EOS # 0.2 K/uL (0.0-0.7); EOS % 4.1 % (0.0-4.0); LYMPH # 1.8 K/uL (1.0-4.3); LYMPH % 30.8 % (20.0-40.0); MEAN CORPUSCULAR HEMOGLOBIN 34.6 pg (27.0-31.0); MEAN CORPUSCULAR HGB CONC 33.9 g/dL (33.0-37.0); MEAN PLATELET VOLUME 8.6 fL (7.2-11.7); MONO # 0.7 K/uL (0.0-0.8); MONO % 11.8 % (0.0-10.0); NEUT # 3.1 K/uL (1.8-7.0); NEUT % 52.5 % (50.0-75.0); RBC 3.18 Mil/uL (4.40-5.90); RED CELL DISTRIBUTION WIDTH 13.5 % (11.5-14.5); WHITE BLOOD COUNT 5.9 K/uL (4.8-10.8)
[2018-09-23 06:16] LABS: ALB/GLOB RATIO 0.9 (1.0-2.1); ALBUMIN 4.1 g/dL (3.5-5.0)
[2018-09-23 06:38] LABS: ALT/SGPT 38 U/L (21-72); AST/SGOT 72 U/L (17-59); BLOOD UREA NITROGEN 32 mg/dL (9-20); CALCIUM 9.1 mg/dl (8.6-10.4); GFR NON-AFRICAN AMERICAN > 60
[2018-09-23] MEDS: Pantoprazole 40 mg Susp UD PO SCH (06:40)
[2018-09-23] MEDS: Phenytoin 100 mg/4 ml Oral Susp UD PO SCH ×2 (07:46→15:35)
[2018-09-23] MEDS: Multivitamin With Minerals Tab PO SCH (08:01)
[2018-09-23] MEDS: Enoxaparin 40 mg Syringe SC SCH (10:27)
[2018-09-23] MEDS: Metoprolol Succinate 50 mg XL Tab PO SCH (10:27)
--- NOTE | 2018-09-23 13:12 | CP.PCM.PN ---
Subjective - Date & Time of Evaluation Date of Evaluation: 09/23/18 Time of Evaluation: 13:09 - Subjective Subjective: pt seen still in icu no tubs oob in chat\ir very weeke unable to walk Objective - Vital Signs/Intake and Output Vital Signs (last 24 hours): Temp Pulse Resp BP Pulse Ox 98.1 F 83 16 129/87 100 09/23/18 08:00 09/23/18 08:00 09/23/18 08:00 09/23/18 08:00 09/23/18 00:00 Intake and Output: 09/23/18 09/23/18 06:59 18:59 Intake Total 480 10 Output Total 900 Balance -420 10 - Medications Medications: Current Medications Acetaminophen (Tylenol 325mg Tab) 650 mg PO Q6 PRN PRN Reason: Pain, moderate (4-7) Last Admin: 09/22/18 10:46 Dose: 650 mg Albuterol/Ipratropium (Duoneb 3 Mg/0.5 Mg (3 Ml) Ud) 3 ml INH RQ6 [facility] Last Admin: 09/23/18 07:55 Dose: 3 ml Calcium Carbonate (Oscal) 500 mg PO BID [facility] Last Admin: 09/23/18 10:27 Dose: 500 mg Enoxaparin Sodium (Lovenox) 40 mg SC DAILY [facility] Last Admin: 09/23/18 10:27 Dose: 40 mg Ergocalciferol (Drisdol 50,000 Intl Units Cap) 1 cap PO Q7D [facility] Last Admin: 09/22/18 23:15 Dose: 1 cap Folic Acid (Folic Acid) 1 mg PO DAILY [facility] Last Admin: 09/23/18 10:27 Dose: 1 mg Methylprednisolone (Solu-Medrol) 40 mg IVP Q8H [facility] Last Admin: 09/23/18 08:01 Dose: 40 mg Metoprolol Succinate (Toprol Xl) 50 mg PO DAILY [facility] Last Admin: 09/23/18 10:27 Dose: 50 mg Multivitamins/Minerals (Therapeutic-M Tab) 1 tab PO 0800 [facility] Last Admin: 09/23/18 08:01 Dose: 1 tab Pantoprazole Sodium (Protonix Ec Tab) 40 mg PO DAILY [facility] Phenytoin (Dilantin) 100 mg PO Q8H [facility] Last Admin: 09/23/18 07:46 Dose: 100 mg Thiamine HCl (Vitamin B1 Tab) 100 mg PO BID [facility] Last Admin: 09/23/18 10:27 Dose: 100 mg - Labs Labs: 09/23/18 05:43 09/23/18 05:43 - Constitutional Appears: Older Than Stated Age, Chronically Ill - Head Exam Head Exam: NORMAL INSPECTION - Eye Exam Eye Exam: Normal appearance Pupil Exam: NORMAL ACCOMODATION - ENT Exam ENT Exam: Mucous Membranes Moist - Neck Exam Neck Exam: Full ROM - Respiratory Exam Respiratory Exam: Decreased Breath Sounds - Cardiovascular Exam Cardiovascular Exam: REGULAR RHYTHM - GI/Abdominal Exam GI & Abdominal Exam: Normal Bowel Sounds - Extremities Exam Additional comments: weeke - Back Exam Back Exam: NORMAL INSPECTION - Neurological Exam Neurological Exam: Abnormal Gait, Awake - Psychiatric Exam Psychiatric exam: Normal Affect - Skin Skin Exam: Normal Color Assessment and Plan - Assessment and Plan (Free Text) Assessment: s/p resp f s/p seizers generalised weekness Plan: cont as per orders
[2018-09-23 17:36] VITALS: RESP 20
--- NOTE | 2018-09-24 | CP.PCM.PN ---
Subjective - Date & Time of Evaluation Date of Evaluation: 09/23/18 Time of Evaluation: 22:30 - Subjective Subjective: No seizures, suffering from bilateral lower extremities cellulitis. He is awake, alert delirious, oriented most of the time. on Po Dilantin 100 mg Q 8 hrs. Vitamin D supply is given with Oscal for his Vitamin D deficit. Will D/c his Dilantin prior to his discharge if stable. Objective - Vital Signs/Intake and Output Vital Signs (last 24 hours): Temp Pulse Resp BP Pulse Ox 97.7 F 80 20 121/80 95 09/23/18 16:35 09/23/18 16:35 09/23/18 16:35 09/23/18 16:35 09/23/18 20:00 Intake and Output: 09/23/18 09/24/18 18:59 06:59 Intake Total 130 310 Balance 130 310 - Medications Medications: Current Medications Acetaminophen (Tylenol 325mg Tab) 650 mg PO Q6 PRN PRN Reason: Pain, moderate (4-7) Last Admin: 09/22/18 10:46 Dose: 650 mg Albuterol/Ipratropium (Duoneb 3 Mg/0.5 Mg (3 Ml) Ud) 3 ml INH RQ6 [facility] Last Admin: 09/23/18 19:52 Dose: Not Given Calcium Carbonate (Oscal) 500 mg PO BID [facility] Last Admin: 09/23/18 18:21 Dose: 500 mg Enoxaparin Sodium (Lovenox) 40 mg SC DAILY [facility] Last Admin: 09/23/18 10:27 Dose: 40 mg Ergocalciferol (Drisdol 50,000 Intl Units Cap) 1 cap PO Q7D [facility] Last Admin: 09/22/18 23:15 Dose: 1 cap Folic Acid (Folic Acid) 1 mg PO DAILY [facility] Last Admin: 09/23/18 10:27 Dose: 1 mg Methylprednisolone (Solu-Medrol) 40 mg IVP Q8H [facility] Last Admin: 09/23/18 15:35 Dose: 40 mg Metoprolol Succinate (Toprol Xl) 50 mg PO DAILY [facility] Last Admin: 09/23/18 10:27 Dose: 50 mg Multivitamins/Minerals (Therapeutic-M Tab) 1 tab PO 0800 [facility] Last Admin: 09/23/18 08:01 Dose: 1 tab Pantoprazole Sodium (Protonix Ec Tab) 40 mg PO DAILY [facility] Phenytoin (Dilantin) 100 mg PO Q8H [facility] Last Admin: 09/23/18 15:35 Dose: 100 mg Thiamine HCl (Vitamin B1 Tab) 100 mg PO BID [facility] Last Admin: 09/23/18 18:21 Dose: 100 mg - Labs Labs: 09/23/18 05:43 09/23/18 05:43 Assessment and Plan (1) Alcohol abuse Status: Chronic (2) Infected wound Status: Acute (3) Lower extremity cellulitis Status: Acute (4) Right leg pain Status: Acute (5) Seizure disorder Status: Acute (6) Abdominal discomfort Status: Acute (7) CVA (cerebral vascular accident) Status: Acute
[2018-09-24] MEDS: MethylPREDNISolone 40 mg Vial IVP SCH ×3 (00:40→16:31)
[2018-09-24] MEDS: Albuterol-Ipratrop 3 mg / 0.5 (3 ml) UD INH SCH ×4 (00:55→20:00)
[2018-09-24] MEDS: Phenytoin 100 mg/4 ml Oral Susp UD PO SCH ×3 (01:00→16:31)
[2018-09-24 06:17] LABS: BASO # 0.1 K/uL (0.0-0.2); BASO % 0.8 % (0.0-2.0); EOS # 0.1 K/uL (0.0-0.7); EOS % 0.9 % (0.0-4.0); HEMOGLOBIN 11.6 g/dL (12.0-18.0); LYMPH # 1.2 K/uL (1.0-4.3); LYMPH % 19.1 % (20.0-40.0); MEAN CELL VOLUME 101.1 fL (80.0-94.0); MEAN CORPUSCULAR HEMOGLOBIN 34.8 pg (27.0-31.0); MEAN CORPUSCULAR HGB CONC 34.4 g/dL (33.0-37.0); MEAN PLATELET VOLUME 8.5 fL (7.2-11.7); MONO # 0.4 K/uL (0.0-0.8); MONO % 6.4 % (0.0-10.0); NEUT # 4.5 K/uL (1.8-7.0); NEUT % 72.8 % (50.0-75.0); NRBC % 0.1 % (0.0-2.0); RBC 3.35 Mil/uL (4.40-5.90); RED CELL DISTRIBUTION WIDTH 13.6 % (11.5-14.5); WHITE BLOOD COUNT 6.2 K/uL (4.8-10.8)
[2018-09-24 06:36] LABS: ALB/GLOB RATIO 0.8 (1.0-2.1); ALBUMIN 3.9 g/dL (3.5-5.0); ALT/SGPT 40 U/L (21-72); AST/SGOT 60 U/L (17-59); BLOOD UREA NITROGEN 21 mg/dL (9-20); CALCIUM 9.4 mg/dl (8.6-10.4); GFR NON-AFRICAN AMERICAN > 60
[2018-09-24] MEDS: Multivitamin With Minerals Tab PO SCH (08:29)
[2018-09-24] MEDS: Pantoprazole 40 mg EC Tab PO SCH (10:48)
[2018-09-24] MEDS: Metoprolol Succinate 50 mg XL Tab PO SCH (10:49)
[2018-09-24] MEDS: Enoxaparin 40 mg Syringe SC SCH (10:49)
--- NOTE | 2018-09-24 13:53 | CP.PCM.PN ---
Subjective - Date & Time of Evaluation Date of Evaluation: 09/24/18 Time of Evaluation: 13:51 - Subjective Subjective: PT SEEN IN HIS BED OUT OF ICU WEEKE DIFFICULTY AMBULATING NO SEIZERS Objective - Vital Signs/Intake and Output Vital Signs (last 24 hours): Temp Pulse Resp BP Pulse Ox 98 F 83 20 144/97 H 98 09/24/18 09:00 09/24/18 09:00 09/24/18 09:00 09/24/18 09:00 09/24/18 09:00 Intake and Output: 09/24/18 09/24/18 06:59 18:59 Intake Total 610 Balance 610 - Medications Medications: Current Medications Acetaminophen (Tylenol 325mg Tab) 650 mg PO Q6 PRN PRN Reason: Pain, moderate (4-7) Last Admin: 09/22/18 10:46 Dose: 650 mg Albuterol/Ipratropium (Duoneb 3 Mg/0.5 Mg (3 Ml) Ud) 3 ml INH RQ6 [facility] Last Admin: 09/24/18 07:37 Dose: 3 ml Calcium Carbonate (Oscal) 500 mg PO BID [facility] Last Admin: 09/24/18 10:48 Dose: 500 mg Enoxaparin Sodium (Lovenox) 40 mg SC DAILY [facility] Last Admin: 09/24/18 10:49 Dose: 40 mg Ergocalciferol (Drisdol 50,000 Intl Units Cap) 1 cap PO Q7D [facility] Last Admin: 09/22/18 23:15 Dose: 1 cap Folic Acid (Folic Acid) 1 mg PO DAILY [facility] Last Admin: 09/24/18 10:48 Dose: 1 mg Methylprednisolone (Solu-Medrol) 40 mg IVP Q8H [facility] Last Admin: 09/24/18 08:29 Dose: 40 mg Metoprolol Succinate (Toprol Xl) 50 mg PO DAILY [facility] Last Admin: 09/24/18 10:49 Dose: 50 mg Multivitamins/Minerals (Therapeutic-M Tab) 1 tab PO 0800 [facility] Last Admin: 09/24/18 08:29 Dose: 1 tab Pantoprazole Sodium (Protonix Ec Tab) 40 mg PO DAILY [facility] Last Admin: 09/24/18 10:48 Dose: 40 mg Phenytoin (Dilantin) 100 mg PO Q8H [facility] Last Admin: 09/24/18 08:29 Dose: 100 mg Thiamine HCl (Vitamin B1 Tab) 100 mg PO BID [facility] Last Admin: 09/24/18 10:49 Dose: 100 mg Topiramate (Topamax) 25 mg PO BID [facility] Last Admin: 09/24/18 10:49 Dose: 25 mg - Labs Labs: 09/24/18 06:07 09/24/18 06:07 - Constitutional Appears: Non-toxic - Head Exam Head Exam: NORMAL INSPECTION - Eye Exam Eye Exam: Normal appearance Pupil Exam: NORMAL ACCOMODATION - ENT Exam ENT Exam: Normal Exam - Neck Exam Neck Exam: Full ROM - Respiratory Exam Respiratory Exam: Clear to Ausculation Bilateral - Cardiovascular Exam Cardiovascular Exam: REGULAR RHYTHM - GI/Abdominal Exam GI & Abdominal Exam: Normal Bowel Sounds - Exam Exam: NORMAL INSPECTION - Extremities Exam Extremities Exam: Normal Capillary Refill - Back Exam Back Exam: NORMAL INSPECTION - Neurological Exam Neurological Exam: Abnormal Gait, Awake, Oriented x3 - Psychiatric Exam Psychiatric exam: Normal Mood - Skin Skin Exam: Normal Color Assessment and Plan - Assessment and Plan (Free Text) Assessment: GENERALISED WEEMNESS ALC NEUROPATHY SEIZER DISORDER Plan: WILL DICH TO [facility]
--- NOTE | 2018-09-24 23:32 | CP.PCM.PN ---
Subjective - Date & Time of Evaluation Date of Evaluation: 09/24/18 Time of Evaluation: 21:50 - Subjective Subjective: No seizures, he is receiving P.o Topamax 25 mg. There is no h/o Kidney stones or gall bladder stones. He is not fat and had a history of Cholecystectomy which is not related to Gall bladder stones. We will D/C Dilantin before discharge and increase the Topamax dose gradually up to 100 mg Q 12 hrs. He is awake and less confused. His legs are being treated bilateral cellulitis and is receiving Antibiotics and local treatment for his cellulitis. Today he is confused and is disoriented to the time, date, remembers the name of the President after many attempts. Oriented to the place. He is delirious. Objective - Vital Signs/Intake and Output Vital Signs (last 24 hours): Temp Pulse Resp BP Pulse Ox 97.7 F 86 20 107/75 98 09/24/18 15:00 09/24/18 15:00 09/24/18 15:00 09/24/18 15:00 09/24/18 15:00 Intake and Output: 09/24/18 09/25/18 18:59 06:59 Intake Total 400 Balance 400 - Medications Medications: Current Medications Acetaminophen (Tylenol 325mg Tab) 650 mg PO Q6 PRN PRN Reason: Pain, moderate (4-7) Last Admin: 09/22/18 10:46 Dose: 650 mg Albuterol/Ipratropium (Duoneb 3 Mg/0.5 Mg (3 Ml) Ud) 3 ml INH RQ6 [facility] Last Admin: 09/24/18 20:00 Dose: 3 ml Calcium Carbonate (Oscal) 500 mg PO BID [facility] Last Admin: 09/24/18 18:00 Dose: 500 mg Enoxaparin Sodium (Lovenox) 40 mg SC DAILY [facility] Last Admin: 09/24/18 10:49 Dose: 40 mg Ergocalciferol (Drisdol 50,000 Intl Units Cap) 1 cap PO Q7D [facility] Last Admin: 09/22/18 23:15 Dose: 1 cap Folic Acid (Folic Acid) 1 mg PO DAILY [facility] Last Admin: 09/24/18 10:48 Dose: 1 mg Methylprednisolone (Solu-Medrol) 40 mg IVP Q8H [facility] Last Admin: 12/05/18 16:31 Dose: 40 mg Metoprolol Succinate (Toprol Xl) 50 mg PO DAILY [facility] Last Admin: 09/24/18 10:49 Dose: 50 mg Multivitamins/Minerals (Therapeutic-M Tab) 1 tab PO 0800 [facility] Last Admin: 09/24/18 08:29 Dose: 1 tab Pantoprazole Sodium (Protonix Ec Tab) 40 mg PO DAILY [facility] Last Admin: 09/24/18 10:48 Dose: 40 mg Phenytoin (Dilantin) 100 mg PO Q8H [facility] Last Admin: 09/24/18 16:31 Dose: 100 mg Thiamine HCl (Vitamin B1 Tab) 100 mg PO BID [facility] Last Admin: 09/24/18 17:48 Dose: 100 mg Topiramate (Topamax) 25 mg PO BID [facility] Last Admin: 09/24/18 18:00 Dose: 25 mg - Labs Labs: 09/24/18 06:07 09/24/18 06:07 Assessment and Plan (1) Alcohol abuse Status: Chronic (2) Infected wound Status: Acute (3) Lower extremity cellulitis Status: Acute (4) Right leg pain Status: Acute (5) Seizure disorder Status: Acute (6) Abdominal discomfort Status: Acute (7) CVA (cerebral vascular accident) Status: Acute
[2018-09-25] MEDS: Phenytoin 100 mg/4 ml Oral Susp UD PO SCH ×3 (00:16→16:35)
[2018-09-25] MEDS: MethylPREDNISolone 40 mg Vial IVP SCH ×3 (00:16→16:36)
[2018-09-25] MEDS: Albuterol-Ipratrop 3 mg / 0.5 (3 ml) UD INH SCH ×3 (01:32→13:40)
[2018-09-25] MEDS: Multivitamin With Minerals Tab PO SCH (08:58)
[2018-09-25] MEDS: Enoxaparin 40 mg Syringe SC SCH (10:46)
[2018-09-25] MEDS: Metoprolol Succinate 50 mg XL Tab PO SCH (10:46)
[2018-09-25] MEDS: Pantoprazole 40 mg EC Tab PO SCH (10:46)
[2018-09-25 17:05] VITALS: BP 116/82; PULSE 91; TEMP 98.5; O2SAT 97
--- NOTE | 2018-09-25 18:36 | CP.PCM.PN ---
Subjective - Date & Time of Evaluation Date of Evaluation: 09/25/18 Time of Evaluation: 18:33 - Subjective Subjective: pt feels beter still has dificuty ambulating will go to rehab today Objective - Vital Signs/Intake and Output Vital Signs (last 24 hours): Temp Pulse Resp BP Pulse Ox 98.5 F 91 H 20 116/82 97 09/25/18 17:00 09/25/18 17:00 09/25/18 17:00 09/25/18 17:00 09/25/18 17:00 Intake and Output: 09/25/18 09/25/18 06:59 18:59 Intake Total 360 450 Balance 360 450 - Medications Medications: Current Medications Acetaminophen (Tylenol 325mg Tab) 650 mg PO Q6 PRN PRN Reason: Pain, moderate (4-7) Last Admin: 09/22/18 10:46 Dose: 650 mg Albuterol/Ipratropium (Duoneb 3 Mg/0.5 Mg (3 Ml) Ud) 3 ml INH RQ6 [facility] Last Admin: 09/25/18 13:40 Dose: 3 ml Calcium Carbonate (Oscal) 500 mg PO BID [facility] Last Admin: 09/25/18 18:03 Dose: 500 mg Enoxaparin Sodium (Lovenox) 40 mg SC DAILY [facility] Last Admin: 09/25/18 10:46 Dose: 40 mg Ergocalciferol (Drisdol 50,000 Intl Units Cap) 1 cap PO Q7D [facility] Last Admin: 09/22/18 23:15 Dose: 1 cap Folic Acid (Folic Acid) 1 mg PO DAILY [facility] Last Admin: 09/25/18 10:46 Dose: 1 mg Methylprednisolone (Solu-Medrol) 40 mg IVP Q8H [facility] Last Admin: 09/25/18 16:36 Dose: 40 mg Metoprolol Succinate (Toprol Xl) 50 mg PO DAILY [facility] Last Admin: 09/25/18 10:46 Dose: 50 mg Multivitamins/Minerals (Therapeutic-M Tab) 1 tab PO 0800 [facility] Last Admin: 09/25/18 08:58 Dose: 1 tab Pantoprazole Sodium (Protonix Ec Tab) 40 mg PO DAILY [facility] Last Admin: 09/25/18 10:46 Dose: 40 mg Phenytoin (Dilantin) 100 mg PO Q8H [facility] Last Admin: 09/25/18 16:35 Dose: 100 mg Thiamine HCl (Vitamin B1 Tab) 100 mg PO BID [facility] Last Admin: 09/25/18 10:46 Dose: 100 mg Topiramate (Topamax) 25 mg PO BID [facility] Last Admin: 09/25/18 10:46 Dose: 25 mg - Labs Labs: 09/24/18 06:07 09/24/18 06:07 - Constitutional Appears: Non-toxic - Head Exam Head Exam: NORMAL INSPECTION - ENT Exam ENT Exam: Normal Oropharynx - Neck Exam Neck Exam: Normal Inspection - Respiratory Exam Respiratory Exam: NORMAL BREATHING PATTERN - Cardiovascular Exam Cardiovascular Exam: REGULAR RHYTHM - GI/Abdominal Exam GI & Abdominal Exam: Normal Bowel Sounds - Exam Exam: NORMAL INSPECTION - Extremities Exam Extremities Exam: Normal Inspection - Back Exam Back Exam: NORMAL INSPECTION - Neurological Exam Neurological Exam: Abnormal Gait - Psychiatric Exam Psychiatric exam: Normal Affect - Skin Skin Exam: Normal Color Assessment and Plan - Assessment and Plan (Free Text) Assessment: ambulating unbalanced gait s/p alc abuse Plan: transfer to [facility]
--- NOTE | 2018-09-26 00:01 | CP.PCM.PN ---
Subjective - Date & Time of Evaluation Date of Evaluation: 09/25/18 Time of Evaluation: 18:00 - Subjective Subjective: Patient was discharged to [facility] without any seizures Return to clinic for F/U. Objective - Vital Signs/Intake and Output Vital Signs (last 24 hours): Temp Pulse Resp BP Pulse Ox 98.5 F 91 H 20 116/82 97 09/25/18 17:00 09/25/18 17:00 09/25/18 17:00 09/25/18 17:00 09/25/18 17:00 Intake and Output: 09/25/18 09/26/18 18:59 06:59 Intake Total 450 Balance 450 - Labs Labs: 09/24/18 06:07 09/24/18 06:07 Assessment and Plan (1) Alcohol abuse Status: Chronic (2) Infected wound Status: Acute (3) Lower extremity cellulitis Status: Acute (4) Right leg pain Status: Acute (5) Seizure disorder Status: Acute (6) Abdominal discomfort Status: Acute (7) CVA (cerebral vascular accident) Status: Acute
--- NOTE | 2018-09-30 19:26 | DS ---
HISTORY: The patient is a 57-year-old male, presents to the emergency room with alcohol intoxication and has an episode of seizures. He was drinking until the night before earlier. He was having blood pressure of 141/82 and was afebrile and his pulse rate was 115. The patient feels anxious. He has a history of anxiety, arthritis, bronchitis, depression, diabetes. At the time of admission, his labs showed his sugar was normal and his chemistries okay. His platelet count . His hemoglobin 11.8. The patient was seen by Infectious Disease because of painful swelling of the left lower extremity and there were some blisters and cellulitis. Dr. Huang saw him and he started him on antibiotics. He has been followed up by me and Dr. Huang and he also has a neuro consultation by Dr. Demetris Paris. He had a bad teeth and he was intubated when he was in ICU. His vitamin D was low. He was having treatments for infection by Dr. Huang as I said. He has stayed intubated in ICU until 09/22/2018. He had visual EEG also on 09/22/2018. He improved and gradually he was extubated. He was transferred out of ICU and he was able to ambulate. There were no more seizures. He was on multiple medications; Tylenol, inhaler, DuoNeb nebulizer, calcium, heparin, folic acid, Solu-Medrol, Toprol, multiple vitamins, Protonix, phenytoin, , and topiramate. His lab was stable. He was in normal mood. He was doing okay. He is much better and he was having difficulty ambulating, so he was seen by Physical Therapy and he was arranged to go to rehabilitation. So, he was discharged on all his medication and we will follow up with the patient. FINAL DIAGNOSES: Acute alcohol intoxication, seizure disorder secondary to alcoholism, difficulty ambulating and cellulitis lower extremity. Beata Buck MD
== END 2018-09-25 19:13 | DRG 750 ==
LOC: C.ER 19:49 → C.6T 09-11 00:35 → C.9I 09-18 16:12 → C.3T 09-23 15:56
PROVIDERS: ADMIT Internal Medicine; ATTEND Internal Medicine
PROC: 5A1945Z Respiratory Ventilation, 24-96 Consecutive Hours (ICD-10-PCS; principal; 2018-09-18)
PROC: 0BH17EZ Insertion of Endotracheal Airway into Trachea, Via Natural or Artificial Opening (ICD-10-PCS; 2018-09-18)
DX: F10.220 Alcohol dependence with intoxication, uncomplicated (principal); G40.509 Epileptic seizures related to external causes, not intractable, without status epilepticus; E11.622 Type 2 diabetes mellitus with other skin ulcer; J96.01 Acute respiratory failure with hypoxia; L03.115 Cellulitis of right lower limb; L03.116 Cellulitis of left lower limb; L97.919 Non-pressure chronic ulcer of unspecified part of right lower leg with unspecified severity; E55.9 Vitamin D deficiency, unspecified; G40.501 Epileptic seizures related to external causes, not intractable, with status epilepticus; G93.40 Encephalopathy, unspecified; F10.259 Alcohol dependence with alcohol-induced psychotic disorder, unspecified; F43.10 Post-traumatic stress disorder, unspecified; G62.1 Alcoholic polyneuropathy; I10 Essential (primary) hypertension; I25.10 Atherosclerotic heart disease of native coronary artery without angina pectoris; M06.9 Rheumatoid arthritis, unspecified; R26.2 Difficulty in walking, not elsewhere classified; Y90.8 Blood alcohol level of 240 mg/100 ml or more; Z90.49 Acquired absence of other specified parts of digestive tract; Z86.73 Personal history of transient ischemic attack (TIA), and cerebral infarction without residual deficits

== ENCOUNTER 2018-10-10 20:50 | Emergency (ER) | payer MEDICAID ==
[2018-10-10 20:51] VITALS: BMI 31.4
[2018-10-10 20:59] VITALS: RESP 18
--- NOTE | 2018-10-10 21:23 | C.PDOC ---
History Of Present Illness 58 y/o male pt brought to the ER by EMS. Pt was found at [facility] intoxicated with an empty 1 pint bottle of vodka. Contrary to triage note, pt currently denies abdominal pain. Pt also denies any chest pain, shortness of breath, headache, fever, chills, cough, nausea, vomiting, diarrhea, eye pain, sore throat, bodyaches, dizziness or lightheadedness. Time Seen by Provider: 10/10/18 21:00 Chief Complaint (Nursing): Abdominal Pain History Per: Patient History/Exam Limitations: no limitations Onset/Duration Of Symptoms: Hrs Current Symptoms Are (Timing): Still Present Past Medical History Reviewed: Historical Data, Nursing Documentation, Vital Signs Vital Signs: Last Vital Signs Temp 98 F 10/10/18 20:56 Pulse 79 10/10/18 20:56 Resp 18 10/10/18 20:56 BP 132/73 10/10/18 20:56 Pulse Ox 98 10/10/18 20:56 - Medical History PMH: Anxiety, Arthritis, Bronchitis, CAD, Depression, Diabetes (Pt. did not disclose to auto service writer, not aware), Fractures (RIGHT ARM), Gastritis, Gall Bladder Disease (s/p cholecystectomy), HTN, Post Traumatic Stress Disorder, Rheumatoid Arthritis, Seizures, Chronic Pain Surgical History: Cholecystectomy - [facility] Procedures ALCOHOL DETOXIFICATION (07/04/15) APPLICATION OF SPLINT (03/20/13) CLOSURE SKIN & SUBCUTANEOUS NEC (08/14/13) DETOXIFICATION SERVICES FOR SUBSTANCE ABUSE TREATMENT (03/22/16) ESOPHAGOGASTRODUODENOSCOPY [EGD] W/CLOSED BIOPSY (02/16/15) INSERTION OF ENDOTRACHEAL AIRWAY INTO TRACHEA, VIA OPENING (09/11/18) OTHER GROUP THERAPY (03/12/13) PHYSICAL THERAPY NEC (07/04/15) RESPIRATORY VENTILATION, 24-96 CONSECUTIVE HOURS (09/11/18) TETANUS TOXOID ADMINIST (01/19/14) Family History: States: Unknown Family Hx - Social History Hx Tobacco Use: No Hx Alcohol Use: Yes (has a shot prior to coming to hospital) Hx Substance Use: Yes - Immunization History Hx Tetanus Toxoid Vaccination: No Hx Influenza Vaccination: Yes Hx Pneumococcal Vaccination: Yes Review Of Systems Except As Marked, All Systems Reviewed And Found Negative. Constitutional: Positive for: Other (alcohol intoxication ). Negative for: Fever, Chills Eyes: Negative for: Pain ENT: Negative for: Throat Pain Cardiovascular: Negative for: Chest Pain Respiratory: Negative for: Cough, Shortness of Breath Gastrointestinal: Negative for: Nausea, Vomiting, Diarrhea Genitourinary: Negative for: Dysuria Musculoskeletal: Negative for: Other (bodyaches) Neurological: Negative for: Headache, Dizziness, Other (lightheadednes) Physical Exam - Physical Exam Appears: Non-toxic, No Acute Distress Skin: Warm, Dry Head: Normacephalic Eye(s): bilateral: Normal Inspection, EOMI Chest: Symmetrical Cardiovascular: Rhythm Regular Respiratory: Normal Breath Sounds Gastrointestinal/Abdominal: Soft, No Tenderness Extremity: Normal ROM (x4) Neurological/Psych: Oriented x3, Normal Speech ED Course And Treatment O2 Sat by Pulse Oximetry: 98 (RA) Pulse Ox Interpretation: Normal Medical Decision Making Medical Decision Making: Impression: alcohol intoxication Reassess:At this time the patient is ambulatory with steady gait, and is clinically sober. Observation discharge care of the patient included a discussion of outpatient management including available detox programs, instructions for continuing care and preparation of the discharge records. Patient is stable for discharge and outpatient therapy and follow-up. Disposition - Disposition Referrals: Alcoholics Anonymous [Outside] [facility] [Outside] [facility] [Outside] Disposition: HOME/ ROUTINE Disposition Time: 21:15 Condition: IMPROVED Additional Instructions: XOCHITL RATLIFF, thank you for letting us take care of you today. The emergency medical care you received today was directed at your acute symptoms. If you were prescribed any medication, please fill it and take as directed. It may take several days for your symptoms to resolve. Return to the Emergency Department if your symptoms worsen, do not improve, or if you have any other problems. Please contact your doctor or call one of the physicians/clinics you have been referred to that are listed on the Patient Visit Information form that is included in your discharge packet. Bring any paperwork you were given at discharge with you along with any medications you are taking to your follow up visit. Our treatment cannot replace ongoing medical care by a primary care provider outside of the emergency department. Thank you for allowing the [facility] team to be part of your care today. Follow up with Alcoholics Anonymous for your alcohol abuse. Instructions: Alcohol Abuse and Alcoholism (DC) Forms: [employer] (Romanian) - Clinical Impression Clinical Impression: Alcohol abuse - Scribe Statement The provider has reviewed the documentation as recorded by the Rominaibjosé miguel Vigil Do Provider Attestation: All medical record entries made by the Scribe were at my direction and personally dictated by me. I have reviewed the chart and agree that the record accurately reflects my personal performance of the history, physical exam, medical decision making, and the department course for this patient. I have also personally directed, reviewed, and agree with the discharge instructions and disposition.
[2018-10-11 03:51] VITALS: BP 129/82; PULSE 81; TEMP 98.3; O2SAT 98
== END 2018-10-11 03:53 | disposition home or self-care (01) ==
LOC: C.ER 20:50
DX: F10.129 Alcohol abuse with intoxication, unspecified (principal); Y90.9 Presence of alcohol in blood, level not specified

== ENCOUNTER 2018-10-12 02:05 | Emergency (ER) | payer MEDICAID ==
[2018-10-12 02:06] VITALS: BMI 31.4
--- NOTE | 2018-10-12 02:29 | C.PDOC ---
History Of Present Illness 58 year old male brought in via EMS for evaluation of alcohol intoxication. He admits to drinking alcohol today, and denies falls/injuries. Time Seen by Provider: 10/12/18 02:22 Chief Complaint (Nursing): Substance Abuse History Per: Patient, EMS History/Exam Limitations: intoxication Onset/Duration Of Symptoms: Unknown Current Symptoms Are (Timing): Still Present Modifying Factor(s): Alcohol Severity: Moderate Involuntary Hold By: Emergency Physician Past Medical History Reviewed: Historical Data, Nursing Documentation, Vital Signs Vital Signs: Last Vital Signs Temp 98 F 10/12/18 02:12 Pulse 74 10/12/18 02:12 Resp BP 110/71 10/12/18 02:12 Pulse Ox 99 10/12/18 02:12 - Medical History PMH: Anxiety, Arthritis, Bronchitis, CAD, Depression, 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 aware), Fractures (RIGHT ARM), Gastritis, Gall Bladder Disease (s/p cholecystectomy), HTN, Post Traumatic Stress Disorder, Rheumatoid Arthritis, Seizures, Chronic Pain Surgical History: Cholecystectomy - [facility] Procedures ALCOHOL DETOXIFICATION (07/04/15) APPLICATION OF SPLINT (03/20/13) CLOSURE SKIN & SUBCUTANEOUS NEC (08/14/13) DETOXIFICATION SERVICES FOR SUBSTANCE ABUSE TREATMENT (03/22/16) ESOPHAGOGASTRODUODENOSCOPY [EGD] W/CLOSED BIOPSY (02/16/15) INSERTION OF ENDOTRACHEAL AIRWAY INTO TRACHEA, VIA OPENING (09/11/18) OTHER GROUP THERAPY (03/12/13) PHYSICAL THERAPY NEC (07/04/15) RESPIRATORY VENTILATION, 24-96 CONSECUTIVE HOURS (09/11/18) TETANUS TOXOID ADMINIST (01/19/14) Family History: States: No Known Family Hx - Social History Hx Tobacco Use: No Hx Alcohol Use: Yes (has a shot prior to coming to hospital) Hx Substance Use: Yes - Immunization History Hx Tetanus Toxoid Vaccination: No Hx Influenza Vaccination: Yes Hx Pneumococcal Vaccination: Yes Review Of Systems Except As Marked, All Systems Reviewed And Found Negative. Constitutional: Positive for: Other (ETOH on breath) Cardiovascular: Negative for: Chest Pain Respiratory: Negative for: Shortness of Breath Gastrointestinal: Negative for: Nausea, Vomiting, Abdominal Pain Psych: Positive for: Other (alcohol intoxication) Physical Exam - Physical Exam Appears: Well, Non-toxic, Other (ETOH on breath) Skin: Normal Color, Warm, Dry Head: Atraumatic, Normacephalic Eye(s): bilateral: Normal Inspection Oral Mucosa: Moist Neck: Normal, Supple Cardiovascular: Rhythm Regular Respiratory: Normal Breath Sounds, No Rales, No Rhonchi, No Wheezing Gastrointestinal/Abdominal: Normal Exam, Bowel Sounds, Soft, No Tenderness Back: Normal Inspection Neurological/Psych: Other (awake, intoxicated, moving all extremities spontaneously) ED Course And Treatment O2 Sat by Pulse Oximetry: 99 (Room air) Pulse Ox Interpretation: Normal Progress Note: Accucheck 111 - WNL. Reevaluation Time: 04:35 Reassessment Condition: Improved (Patient reassessed, is currently AAOx3 and clinically sober. He is using wheelchair normally, will discharge.) Disposition - Disposition Referrals: Tino Clark MD [Primary Care Provider] - Disposition: HOME/ ROUTINE Disposition Time: 04:35 Condition: GOOD Forms: [facility] (Setswana) Print Language: TELUGU - Clinical Impression Clinical Impression: Alcoholism /alcohol abuse - Scribe Statement The provider has reviewed the documentation as recorded by the Scribjosé miguel Ramirez All medical record entries made by the Scribe were at my direction and personally dictated by me. I have reviewed the chart and agree that the record accurately reflects my personal performance of the history, physical exam, medical decision making, and the department course for this patient. I have also personally directed, reviewed, and agree with the discharge instructions and disposition.
[2018-10-12 05:24] VITALS: BP 115/68; PULSE 72; RESP 20; TEMP 97.8
[2018-10-19 04:53] VITALS: O2SAT 99
== END 2018-10-12 05:00 | disposition home or self-care (01) ==
LOC: SUPCPDRO 02:05 → C.ER 02:05
DX: F10.20 Alcohol dependence, uncomplicated (principal); E11.9 Type 2 diabetes mellitus without complications; I25.10 Atherosclerotic heart disease of native coronary artery without angina pectoris

== ENCOUNTER 2018-10-12 20:11 | Emergency (ER) | payer MEDICAID ==
[2018-10-12 20:11] VITALS: BMI 31.4
[2018-10-12 20:33] VITALS: BP 152/90; PULSE 88; TEMP 98.6; O2SAT 98
--- NOTE | 2018-10-12 20:38 | C.PDOC ---
History Of Present Illness 58 year old male rolls himself into the ER on his wheel chair requesting a place to spend the night, admits to ETOH use tonight. Patient signed out of [facility] 2 days ago where he has been a resident for months, reason why is unknown. Offers no complaints at this time. Time Seen by Provider: 10/12/18 20:35 Chief Complaint (Nursing): Medical Clearance History Per: Patient History/Exam Limitations: no limitations Recent travel outside of the [place]: No Past Medical History Reviewed: Historical Data, Nursing Documentation, Vital Signs Vital Signs: Last Vital Signs Temp 98.6 F 10/12/18 20:30 Pulse 88 10/12/18 20:30 Resp 20 10/12/18 20:30 BP 152/90 H 10/12/18 20:30 Pulse Ox 98 10/12/18 20:30 - Medical History PMH: Anxiety, Arthritis, Bronchitis, CAD, Depression, Diabetes (Pt. did not disclose to clinical writer, not aware), Fractures (RIGHT ARM), Gastritis, Gall Bladder Disease (s/p cholecystectomy), HTN, Post Traumatic Stress Disorder, Rheumatoid Arthritis, Seizures, Chronic Pain Denies: Chronic Kidney Disease Surgical History: Cholecystectomy - [facility] Procedures ALCOHOL DETOXIFICATION (07/04/15) APPLICATION OF SPLINT (03/20/13) CLOSURE SKIN & SUBCUTANEOUS NEC (08/14/13) DETOXIFICATION SERVICES FOR SUBSTANCE ABUSE TREATMENT (03/22/16) ESOPHAGOGASTRODUODENOSCOPY [EGD] W/CLOSED BIOPSY (02/16/15) INSERTION OF ENDOTRACHEAL AIRWAY INTO TRACHEA, VIA OPENING (09/11/18) OTHER GROUP THERAPY (03/12/13) PHYSICAL THERAPY NEC (07/04/15) RESPIRATORY VENTILATION, 24-96 CONSECUTIVE HOURS (09/11/18) TETANUS TOXOID ADMINIST (01/19/14) Family History: States: Unknown Family Hx - Social History Hx Tobacco Use: No Hx Alcohol Use: Yes (has a shot prior to coming to hospital) Hx Substance Use: Yes - Immunization History Hx Tetanus Toxoid Vaccination: No Hx Influenza Vaccination: Yes Hx Pneumococcal Vaccination: Yes Review Of Systems Constitutional: Negative for: Fever, Chills Cardiovascular: Negative for: Chest Pain, Palpitations Respiratory: Negative for: Cough, Shortness of Breath Gastrointestinal: Negative for: Nausea, Vomiting Physical Exam - Physical Exam Appears: Non-toxic, Other (ETOH on breath) Skin: Normal Color, Warm, Dry Head: Atraumatic, Normacephalic Eye(s): bilateral: Normal Inspection Oral Mucosa: Moist Chest: Symmetrical, No Tenderness Cardiovascular: Rhythm Regular Respiratory: Normal Breath Sounds, No Rales, No Rhonchi, No Wheezing Gastrointestinal/Abdominal: Soft, No Tenderness Extremity: Normal ROM (x4) Neurological/Psych: Oriented x3, Normal Speech Gait: Other (On wheel chair but able to ambulate) ED Course And Treatment O2 Sat by Pulse Oximetry: 98 Medical Decision Making Medical Decision Making: persistent alcohol abuse signed himself out of [facility] 2 days ago no acute issues referred to shelters Disposition Doctor Will See Patient In The: Office Counseled Patient/Family Regarding: Studies Performed, Diagnosis - Disposition Referrals: Alcoholics Anonymous [Outside] [facility] [Outside] [employer] [facility] [Outside] [facility] [Outside] [facility] [Outside] Disposition: HOME/ ROUTINE Disposition Time: 20:37 Condition: GOOD Instructions: Alcohol Abuse and Alcoholism (DC) Forms: [employer] (Thai) - Clinical Impression Clinical Impression: Alcohol abuse - Scribe Statement The provider has reviewed the documentation as recorded by the Scribe Fabián Ramirez All medical record entries made by the Scribe were at my direction and personally dictated by me. I have reviewed the chart and agree that the record accurately reflects my personal performance of the history, physical exam, medical decision making, and the department course for this patient. I have also personally directed, reviewed, and agree with the discharge instructions and disposition.
[2018-10-12 20:47] VITALS: RESP 18
== END 2018-10-12 20:44 | disposition home or self-care (01) ==
LOC: C.ER 20:11
DX: F10.10 Alcohol abuse, uncomplicated (principal); E11.9 Type 2 diabetes mellitus without complications; I25.10 Atherosclerotic heart disease of native coronary artery without angina pectoris

== ENCOUNTER 2018-10-15 22:40 | Emergency (ER) | payer MEDICAID ==
[2018-10-15 22:41] VITALS: BMI 31.4
[2018-10-15 23:00] VITALS: BP 141/82; PULSE 101; RESP 16; TEMP 97.8; O2SAT 96
--- NOTE | 2018-10-15 23:05 | C.PDOC ---
History Of Present Illness 58 year old male presents to the ER requesting a place to spend the night. Patient is not intoxicated. Offers no complaints at this time. Time Seen by Provider: 10/15/18 22:56 History Per: Patient History/Exam Limitations: no limitations Onset/Duration Of Symptoms: Hrs Current Symptoms Are (Timing): Still Present Suicide/Self Injury Attempted (Context): None Modifying Factor(s): None Involuntary Hold By: None Recent travel outside of the [place]: No Past Medical History Reviewed: Historical Data, Nursing Documentation, Vital Signs Vital Signs: Last Vital Signs Temp 97.8 F 10/15/18 22:57 Pulse 101 H 10/15/18 22:57 Resp 16 10/15/18 22:57 BP 141/82 10/15/18 22:57 Pulse Ox 96 10/15/18 22:57 - Medical History PMH: Anxiety, Arthritis, Bronchitis, CAD, Depression, Diabetes (Pt. did not disclose to auto service writer, not aware), Fractures (RIGHT ARM), Gastritis, Gall Bladder Disease (s/p cholecystectomy), HTN, Post Traumatic Stress Disorder, Rheumatoid Arthritis, Seizures, Chronic Pain Denies: Chronic Kidney Disease Surgical History: Cholecystectomy - [facility] Procedures ALCOHOL DETOXIFICATION (07/04/15) APPLICATION OF SPLINT (03/20/13) CLOSURE SKIN & SUBCUTANEOUS NEC (08/14/13) DETOXIFICATION SERVICES FOR SUBSTANCE ABUSE TREATMENT (03/22/16) ESOPHAGOGASTRODUODENOSCOPY [EGD] W/CLOSED BIOPSY (02/16/15) INSERTION OF ENDOTRACHEAL AIRWAY INTO TRACHEA, VIA OPENING (09/11/18) OTHER GROUP THERAPY (03/12/13) PHYSICAL THERAPY NEC (07/04/15) RESPIRATORY VENTILATION, 24-96 CONSECUTIVE HOURS (09/11/18) TETANUS TOXOID ADMINIST (01/19/14) Family History: States: Unknown Family Hx - Social History Hx Tobacco Use: No Hx Alcohol Use: Yes Hx Substance Use: Yes - Immunization History Hx Tetanus Toxoid Vaccination: No Hx Influenza Vaccination: Yes Hx Pneumococcal Vaccination: Yes Review Of Systems Constitutional: Negative for: Fever, Chills Cardiovascular: Negative for: Chest Pain, Palpitations Respiratory: Negative for: Cough, Shortness of Breath Gastrointestinal: Negative for: Nausea, Vomiting Neurological: Negative for: Weakness, Numbness Physical Exam - Physical Exam Appears: Non-toxic Skin: Normal Color, Warm, Dry Head: Atraumatic, Normacephalic Eye(s): bilateral: Normal Inspection Oral Mucosa: Moist Neck: Normal, Supple Chest: Symmetrical, No Tenderness Cardiovascular: Rhythm Regular Respiratory: Normal Breath Sounds, No Rales, No Rhonchi, No Wheezing Gastrointestinal/Abdominal: Soft, No Tenderness Neurological/Psych: Oriented x3, Normal Speech Gait: Other (Uses wheelchair but able to ambulate) ED Course And Treatment O2 Sat by Pulse Oximetry: 96 Medical Decision Making Medical Decision Making: homeless single male does NOT seem to be abusing alcohol tonight referred to [facility] Disposition Doctor Will See Patient In The: Office Counseled Patient/Family Regarding: Studies Performed, Diagnosis - Disposition Referrals: Alcoholics Anonymous [Outside] [employer] [Outside] [facility] [Outside] [facility] [Outside] [facility] [employer] [facility] [Outside] Disposition: HOME/ ROUTINE Disposition Time: 23:04 Condition: GOOD Additional Instructions: seek nightly fdc placement seek outpatient alcohol abuse resources Forms: General Discharge Instructions, [employer] (Wolof) - Clinical Impression Clinical Impression: Homeless single person - Scribe Statement The provider has reviewed the documentation as recorded by the Scribe Fabián Ramirez All medical record entries made by the Scribe were at my direction and personally dictated by me. I have reviewed the chart and agree that the record accurately reflects my personal performance of the history, physical exam, medical decision making, and the department course for this patient. I have also personally directed, reviewed, and agree with the discharge instructions and disposition.
== END 2018-10-15 23:07 | disposition home or self-care (01) ==
LOC: C.ER 22:40
DX: Z59.0 Homelessness (principal); E11.9 Type 2 diabetes mellitus without complications; F32.9 Major depressive disorder, single episode, unspecified; I25.10 Atherosclerotic heart disease of native coronary artery without angina pectoris

== ENCOUNTER 2018-10-16 04:54 | Emergency (ER) | payer MEDICAID ==
[2018-10-16 04:54] VITALS: BMI 31.4
--- NOTE | 2018-10-16 05:05 | C.PDOC ---
History Of Present Illness Patient presents to the ER requesting a place to spend the night. Patient has been drinking, and felt nauseated. Contrary to the initial triage, patient states that he didn't vomit and just wants a place to rest Time Seen by Provider: 10/16/18 05:04 Chief Complaint (Nursing): Abdominal Pain History Per: Patient History/Exam Limitations: no limitations Onset/Duration Of Symptoms: Hrs Current Symptoms Are (Timing): Still Present Severity: None Pain Scale Rating Of: 0 Radiation Of Pain To:: None Associated Symptoms: denies: Fever, Chills, Nausea, Vomiting Exacerbating Factors: None Alleviating Factors: None Recent travel outside of the [place]: No Past Medical History Reviewed: Historical Data, Nursing Documentation, Vital Signs Vital Signs: Last Vital Signs Temp 97.8 F 10/16/18 05:01 Pulse 115 H 10/16/18 05:01 Resp 16 10/16/18 05:01 BP 146/98 H 10/16/18 05:01 Pulse Ox 96 10/16/18 05:01 - Medical History PMH: Anxiety, Arthritis, Bronchitis, CAD, Depression, Diabetes (Pt. did not disclose to program writer, not aware), Fractures (RIGHT ARM), Gastritis, Gall Bladder Disease (s/p cholecystectomy), HTN, Post Traumatic Stress Disorder, Rheumatoid Arthritis, Seizures, Chronic Pain Denies: Chronic Kidney Disease Surgical History: Cholecystectomy - [facility] Procedures ALCOHOL DETOXIFICATION (07/04/15) APPLICATION OF SPLINT (03/20/13) CLOSURE SKIN & SUBCUTANEOUS NEC (08/14/13) DETOXIFICATION SERVICES FOR SUBSTANCE ABUSE TREATMENT (03/22/16) ESOPHAGOGASTRODUODENOSCOPY [EGD] W/CLOSED BIOPSY (02/16/15) INSERTION OF ENDOTRACHEAL AIRWAY INTO TRACHEA, VIA OPENING (09/11/18) OTHER GROUP THERAPY (03/12/13) PHYSICAL THERAPY NEC (07/04/15) RESPIRATORY VENTILATION, 24-96 CONSECUTIVE HOURS (09/11/18) TETANUS TOXOID ADMINIST (01/19/14) Family History: States: No Known Family Hx - Social History Hx Tobacco Use: No Hx Alcohol Use: Yes Hx Substance Use: Yes - Immunization History Hx Tetanus Toxoid Vaccination: No Hx Influenza Vaccination: Yes Hx Pneumococcal Vaccination: Yes Review Of Systems Constitutional: Negative for: Fever, Chills Cardiovascular: Negative for: Chest Pain, Palpitations Respiratory: Negative for: Cough, Shortness of Breath Gastrointestinal: Negative for: Nausea, Vomiting Neurological: Negative for: Weakness, Numbness Physical Exam - Physical Exam Appears: Non-toxic, Other (No sign of injury) Skin: Warm, Dry Head: Normacephalic Oral Mucosa: Moist Chest: Symmetrical, No Tenderness Cardiovascular: Rhythm Regular Respiratory: No Rales, No Rhonchi, No Wheezing Gastrointestinal/Abdominal: Soft, No Tenderness Neurological/Psych: Oriented x3 Gait: With Assistance (wheelchair) ED Course And Treatment O2 Sat by Pulse Oximetry: 96 (room air) Pulse Ox Interpretation: Normal Disposition Counseled Patient/Family Regarding: Studies Performed, Diagnosis - Disposition Disposition Time: 05:05 Condition: FAIR Forms: [employer] (Congolese) - Clinical Impression Clinical Impression: Alcohol intoxication, Alcohol abuse, daily use - Scribe Statement The provider has reviewed the documentation as recorded by the Scribe Fabián Ramirez All medical record entries made by the Scribe were at my direction and personally dictated by me. I have reviewed the chart and agree that the record accurately reflects my personal performance of the history, physical exam, medical decision making, and the department course for this patient. I have also personally directed, reviewed, and agree with the discharge instructions and disposition. Physician Patient Turnover Patient Signed Over To: Angela Bass Handoff Comments: pending sobriety and discharge
[2018-10-16 07:10] VITALS: BP 145/75; PULSE 113; RESP 18; TEMP 99.1; O2SAT 98
== END 2018-10-16 08:40 | disposition home or self-care (01) ==
LOC: C.ER 04:54
DX: F10.129 Alcohol abuse with intoxication, unspecified (principal); E11.9 Type 2 diabetes mellitus without complications; I25.10 Atherosclerotic heart disease of native coronary artery without angina pectoris

== ENCOUNTER 2018-10-16 21:14 | Emergency (ER) | payer MEDICAID ==
[2018-10-16 21:14] VITALS: BMI 31.4
--- NOTE | 2018-10-16 21:22 | C.PDOC ---
History Of Present Illness 58 year old male is brought to the ED by EMS for alcohol intoxication. Patient admits to drinking alcohol today. Patient denies SI/HI, hallucinations, CP, SOB, injury, fall, trauma. 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, not aware), Fractures (RIGHT ARM), Gastritis, Gall Bladder Disease (s/p cholecystectomy), HTN, Post Traumatic Stress Disorder, Rheumatoid Arthritis, Seizures, Chronic Pain Denies: Chronic Kidney Disease Surgical History: Cholecystectomy - [facility] Procedures ALCOHOL DETOXIFICATION (07/04/15) APPLICATION OF SPLINT (03/20/13) CLOSURE SKIN & SUBCUTANEOUS NEC (08/14/13) DETOXIFICATION SERVICES FOR SUBSTANCE ABUSE TREATMENT (03/22/16) ESOPHAGOGASTRODUODENOSCOPY [EGD] W/CLOSED BIOPSY (02/16/15) INSERTION OF ENDOTRACHEAL AIRWAY INTO TRACHEA, VIA OPENING (09/11/18) OTHER GROUP THERAPY (03/12/13) PHYSICAL THERAPY NEC (07/04/15) RESPIRATORY VENTILATION, 24-96 CONSECUTIVE HOURS (09/11/18) TETANUS TOXOID ADMINIST (01/19/14) Family History: States: Unknown Family Hx - Social History Hx Tobacco Use: No Hx Alcohol Use: Yes Hx Substance Use: Yes - Immunization History Hx Tetanus Toxoid Vaccination: No Hx Influenza Vaccination: Yes Hx Pneumococcal Vaccination: Yes Review Of Systems Constitutional: Negative for: Fever, Chills Cardiovascular: Negative for: Chest Pain Respiratory: Negative for: Cough, Shortness of Breath Gastrointestinal: Negative for: Nausea, Vomiting, Abdominal Pain Skin: Negative for: Rash Psych: Negative for: Depression, Suicidal ideation Physical Exam - Physical Exam Appears: Non-toxic, No Acute Distress Skin: Warm, Dry Head: Normacephalic Eye(s): bilateral: Normal Inspection Neck: Supple Chest: Symmetrical Cardiovascular: Rhythm Regular Respiratory: No Rales, No Rhonchi, No Wheezing Gastrointestinal/Abdominal: Soft, No Tenderness, No Guarding, No Rebound Neurological/Psych: Oriented x3, Normal Speech, Normal Cognition Gait: With Assistance (wheelchair) ED Course And Treatment O2 Sat by Pulse Oximetry: 97 Pulse Ox Interpretation: Normal Reevaluation Time: 05:22 Reassessment Condition: Improved Disposition Counseled Patient/Family Regarding: Studies Performed, Diagnosis, Need For Followup - Disposition Referrals: [facility] at [facility] [Outside] Disposition: HOME/ ROUTINE Disposition Time: 21:28 Condition: FAIR Instructions: Alcohol Abuse and Alcoholism (DC) - Clinical Impression Clinical Impression: Alcoholism /alcohol abuse - Scribe Statement The provider has reviewed the documentation as recorded by the Scribe Woo Brown All medical record entries made by the Scribe were at my direction and personally dictated by me. I have reviewed the chart and agree that the record accurately reflects my personal performance of the history, physical exam, medical decision making, and the department course for this patient. I have also personally directed, reviewed, and agree with the discharge instructions and disposition.
--- NOTE | 2018-10-16 21:26 | C.PDOC ---
Time Seen by Provider: 10/16/18 21:19 Past Medical History - Medical History PMH: Anxiety, Arthritis, Bronchitis, CAD, Depression, Diabetes (Pt. did not disclose to tech writer, not aware), Fractures (RIGHT ARM), Gastritis, Gall Bladder Disease (s/p cholecystectomy), HTN, Post Traumatic Stress Disorder, Rheumatoid Arthritis, Seizures, Chronic Pain Denies: Chronic Kidney Disease Surgical History: Cholecystectomy - [facility] Procedures ALCOHOL DETOXIFICATION (07/04/15) APPLICATION OF SPLINT (03/20/13) CLOSURE SKIN & SUBCUTANEOUS NEC (08/14/13) DETOXIFICATION SERVICES FOR SUBSTANCE ABUSE TREATMENT (03/22/16) ESOPHAGOGASTRODUODENOSCOPY [EGD] W/CLOSED BIOPSY (02/16/15) INSERTION OF ENDOTRACHEAL AIRWAY INTO TRACHEA, VIA OPENING (09/11/18) OTHER GROUP THERAPY (03/12/13) PHYSICAL THERAPY NEC (07/04/15) RESPIRATORY VENTILATION, 24-96 CONSECUTIVE HOURS (09/11/18) TETANUS TOXOID ADMINIST (01/19/14) Family History: States: Unknown Family Hx - Social History Hx Tobacco Use: No Hx Alcohol Use: Yes Hx Substance Use: Yes - Immunization History Hx Tetanus Toxoid Vaccination: No Hx Influenza Vaccination: Yes Hx Pneumococcal Vaccination: Yes Disposition Counseled Patient/Family Regarding: Studies Performed, Diagnosis, Need For Followup - Disposition Referrals: [facility] at [facility] [Outside] Disposition: HOME/ ROUTINE Disposition Time: 21:20 Condition: FAIR Instructions: Alcohol Abuse and Alcoholism (DC) - Clinical Impression Clinical Impression: Alcoholism /alcohol abuse
[2018-10-17 03:58] VITALS: O2SAT 97
[2018-10-17 05:44] VITALS: BP 116/81; PULSE 97; RESP 16; TEMP 98.4
== END 2018-10-17 05:55 | disposition home or self-care (01) ==
LOC: C.ER 21:14
DX: F10.20 Alcohol dependence, uncomplicated (principal); E11.9 Type 2 diabetes mellitus without complications; I25.10 Atherosclerotic heart disease of native coronary artery without angina pectoris

== ENCOUNTER 2018-10-17 21:00 | Emergency (ER) | payer MEDICAID ==
[2018-10-17 21:00] VITALS: BMI 31.4
--- NOTE | 2018-10-17 21:45 | C.PDOC ---
History Of Present Illness 58 year old male presents to the ER with acute ETOH intoxication. Denies any complaints at this time. Time Seen by Provider: 10/17/18 21:34 Chief Complaint (Nursing): Lower Extremity Problem/Injury History Per: Patient History/Exam Limitations: no limitations Onset/Duration Of Symptoms: Hrs Current Symptoms Are (Timing): Still Present Recent travel outside of the [place]: No Past Medical History Reviewed: Historical Data, Nursing Documentation, Vital Signs Vital Signs: Last Vital Signs Temp 99.1 F 10/17/18 21:19 Pulse 116 H 10/17/18 21:19 Resp 16 10/17/18 21:19 BP 131/83 10/17/18 21:19 Pulse Ox 97 10/17/18 21:19 - Medical History PMH: Anxiety, Arthritis, Bronchitis, CAD, Depression, Diabetes (Pt. did not disclose to technical proposal writer, not aware), Fractures (RIGHT ARM), Gastritis, Gall Bladder Disease (s/p cholecystectomy), HTN, Post Traumatic Stress Disorder, Rheumatoid Arthritis, Seizures, Chronic Pain Denies: Chronic Kidney Disease Surgical History: Cholecystectomy - [facility] Procedures ALCOHOL DETOXIFICATION (07/04/15) APPLICATION OF SPLINT (03/20/13) CLOSURE SKIN & SUBCUTANEOUS NEC (08/14/13) DETOXIFICATION SERVICES FOR SUBSTANCE ABUSE TREATMENT (03/22/16) ESOPHAGOGASTRODUODENOSCOPY [EGD] W/CLOSED BIOPSY (02/16/15) INSERTION OF ENDOTRACHEAL AIRWAY INTO TRACHEA, VIA OPENING (09/11/18) OTHER GROUP THERAPY (03/12/13) PHYSICAL THERAPY NEC (07/04/15) RESPIRATORY VENTILATION, 24-96 CONSECUTIVE HOURS (09/11/18) TETANUS TOXOID ADMINIST (01/19/14) Family History: States: Unknown Family Hx - Social History Hx Tobacco Use: No Hx Alcohol Use: Yes Hx Substance Use: Yes - Immunization History Hx Tetanus Toxoid Vaccination: No Hx Influenza Vaccination: Yes Hx Pneumococcal Vaccination: Yes Review Of Systems Except As Marked, All Systems Reviewed And Found Negative. Constitutional: Positive for: Other (ETOH intoxication) Physical Exam - Physical Exam Additional Physical Exam Comments: Constitutional: No acute distress. Head: Normocephalic. Atraumatic. Eyes: PERRL. ENT: Moist mucous membranes. Neck: Supple. Cardiovascular: Regular rate. Radial pulse 2+ bilaterally. Chest: No tenderness. Respiratory: Clear to auscultation bilaterally. GI: Soft. Nontender. Nondistended. Back: No CVA tenderness. Musculoskeletal: No tenderness or swelling of extremities. Skin: No rash. Neurologic: Alert, no focal deficit. ED Course And Treatment O2 Sat by Pulse Oximetry: 97 (Room air) Pulse Ox Interpretation: Normal Medical Decision Making Medical Decision Making: Will observe for sobriety. Disposition - Disposition Disposition: HOME/ ROUTINE Disposition Time: 21:40 Condition: STABLE Forms: [employer] ([place] Islander) - Clinical Impression Clinical Impression: Alcohol intoxication - Scribe Statement The provider has reviewed the documentation as recorded by the Scribe Fabián Ramirez All medical record entries made by the Scribe were at my direction and personally dictated by me. I have reviewed the chart and agree that the record accurately reflects my personal performance of the history, physical exam, medical decision making, and the department course for this patient. I have also personally directed, reviewed, and agree with the discharge instructions and disposition.
[2018-10-18 06:43] VITALS: BP 124/77; PULSE 76; RESP 16; TEMP 98; O2SAT 98
== END 2018-10-18 06:42 | disposition home or self-care (01) ==
LOC: C.ER 21:00
DX: F10.129 Alcohol abuse with intoxication, unspecified (principal)

== ENCOUNTER 2018-10-18 19:12 | Emergency (ER) | payer MEDICAID ==
[2018-10-18 19:12] VITALS: BMI 31.4
--- NOTE | 2018-10-18 21:05 | C.PDOC ---
History Of Present Illness 58 year old male brought to the ED for evaluation of alcohol intoxication. Patient also complains of chronic leg/foot swelling ad B/L ulcers. He admits to drinking earlier today. Patient denies fever, chills, falls/injuries. Time Seen by Provider: 10/18/18 19:29 Chief Complaint (Nursing): Lower Extremity Problem/Injury History Per: Patient History/Exam Limitations: intoxication Current Symptoms Are (Timing): Still Present Severity: Moderate Additional History Per: Patient Past Medical History Reviewed: Historical Data, Nursing Documentation, Vital Signs Vital Signs: Last Vital Signs Temp 98.5 F 10/18/18 19:34 Pulse 100 H 10/18/18 19:34 Resp 18 10/18/18 19:34 BP 144/67 10/18/18 19:34 Pulse Ox 97 10/18/18 19:34 - Medical History PMH: Anxiety, Arthritis, Bronchitis, CAD, Depression, Diabetes (Pt. 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 writer/runner, not aware), Fractures (RIGHT ARM), Gastritis, Gall Bladder Disease (s/p cholecystectomy), HTN, Post Traumatic Stress Disorder, Rheumatoid Arthritis, Seizures, Chronic Pain Surgical History: Cholecystectomy - [facility] Procedures ALCOHOL DETOXIFICATION (07/04/15) APPLICATION OF SPLINT (03/20/13) CLOSURE SKIN & SUBCUTANEOUS NEC (08/14/13) DETOXIFICATION SERVICES FOR SUBSTANCE ABUSE TREATMENT (03/22/16) ESOPHAGOGASTRODUODENOSCOPY [EGD] W/CLOSED BIOPSY (02/16/15) INSERTION OF ENDOTRACHEAL AIRWAY INTO TRACHEA, VIA OPENING (09/11/18) OTHER GROUP THERAPY (03/12/13) PHYSICAL THERAPY NEC (07/04/15) RESPIRATORY VENTILATION, 24-96 CONSECUTIVE HOURS (09/11/18) TETANUS TOXOID ADMINIST (01/19/14) Family History: States: No Known Family Hx - Social History Hx Tobacco Use: No Hx Alcohol Use: Yes Hx Substance Use: Yes - Immunization History Hx Tetanus Toxoid Vaccination: No Hx Influenza Vaccination: Yes Hx Pneumococcal Vaccination: Yes Review Of Systems Constitutional: Negative for: Fever, Chills Cardiovascular: Negative for: Chest Pain Respiratory: Negative for: Shortness of Breath Gastrointestinal: Negative for: Nausea, Vomiting, Abdominal Pain Musculoskeletal: Positive for: Other (chronic leg and foot swelling, ulcers ) Psych: Positive for: Other (EtOH intoxication ). Negative for: Suicidal ideation Physical Exam - Physical Exam Appears: Well, Non-toxic, No Acute Distress, Other (moderately intoxicated but awake & alert) Skin: Warm, Dry, Other (chronic edema and dry skin to bilateral lower extremities and feet. chronic skin thickening. 1cm ulceration to anterior lower shins bilaterally. no purulent discharge or surrounding erythema noted ) Head: Atraumatic, Normacephalic Eye(s): bilateral: Normal Inspection Oral Mucosa: Moist, Other (alcohol on breath ) Neck: Normal, Normal ROM, No Midline Cervical Tenderness, No Paracervical Tenderness, No Step Off Deformity, Supple Cardiovascular: Rhythm Regular Respiratory: Normal Breath Sounds, No Rales, No Rhonchi, No Wheezing Extremity: Normal ROM, Capillary Refill (< 2 sec all digits ), Other (B/L distal shins with approx 3cm ulcerations, chronic appearing and without erythema or purulent discharge) Pulses: Left Dorsalis Pedis: Normal, Right Dorsalis Pedis: Normal Neurological/Psych: Other (intoxicated but awake & alert, moving all 4 extremities spontaneously) ED Course And Treatment O2 Sat by Pulse Oximetry: 97 (on RA) Pulse Ox Interpretation: Normal Progress Note: Accucheck ordered andr reviewed - WNL. B/L lower extremities soaked and cleaned by nurse, clean dressings applied to B/L carrero ulcers. Reevaluation Time: 05:30 Reassessment Condition: Improved (On reassessment, patient is AAOx3 and clinically sober. Will discharge.) Disposition Counseled Patient/Family Regarding: Diagnosis, Need For Followup - Disposition Referrals: [facility] [Outside] Disposition: HOME/ ROUTINE Disposition Time: 05:30 Condition: STABLE Forms: [facility] (Turkmen) Print Language: BULGARIAN - Clinical Impression Clinical Impression: Bilateral leg ulcer, Alcohol intoxication, Homeless single person - Scribe Statement The provider has reviewed the documentation as recorded by the Scribe (Kari Fajardo) Provider Attestation: All medical record entries made by the Scribe were at my direction and personally dictated by me. I have reviewed the chart and agree that the record accurately reflects my personal performance of the history, physical exam, medical decision making, and the department course for this patient. I have also personally directed, reviewed, and agree with the discharge instructions and disposition.
[2018-10-19] MEDS ORDERED: Bacitracin 500 Units/gm Oint Foilpak UD TOP ONE (00:05)
[2018-10-19] MEDS ORDERED: Bacitracin 500 Units/gm Oint Foilpak UD ONE (00:09)
[2018-10-19 03:23] VITALS: RESP 18; TEMP 99.3
[2018-10-19 05:28] VITALS: BP 135/71; PULSE 114
[2018-10-19 05:29] VITALS: O2SAT 97
== END 2018-10-19 05:50 | disposition home or self-care (01) ==
LOC: C.ER 19:12
DX: L97.829 Non-pressure chronic ulcer of other part of left lower leg with unspecified severity (principal); L97.819 Non-pressure chronic ulcer of other part of right lower leg with unspecified severity; F10.129 Alcohol abuse with intoxication, unspecified; Z59.0 Homelessness

== ENCOUNTER 2018-10-19 17:20 | Emergency (ER) | payer MEDICAID ==
[2018-10-19 17:20] VITALS: BMI 31.4
--- NOTE | 2018-10-19 18:54 | C.PDOC ---
History Of Present Illness 58 year old male presents to the ED for evaluation of alcohol intoxication. Patient also complains of chronic leg and foot swelling. He admits to drinking earlier today and denies fever, chills, suicidal/homicidal ideation. Time Seen by Provider: 10/19/18 18:30 Chief Complaint (Nursing): Lower Extremity Problem/Injury History Per: Patient History/Exam Limitations: intoxication Current Symptoms Are (Timing): Still Present Recent travel outside of the [place]: No Past Medical History Reviewed: Historical Data, Nursing Documentation, Vital Signs Vital Signs: Last Vital Signs Temp 97.3 F L 10/19/18 17:34 Pulse 100 H 10/19/18 17:34 Resp 18 10/19/18 17:34 BP 130/84 10/19/18 17:34 Pulse Ox 97 10/19/18 17:34 - Medical History PMH: Anxiety, Arthritis, Bronchitis, CAD, Depression, Diabetes (Pt. did not disclose to writer producer, not aware), Fractures (RIGHT ARM), Gastritis, Gall Bladder Disease (s/p cholecystectomy), HTN, Post Traumatic Stress Disorder, Rheumatoid Arthritis, Seizures, Chronic Pain Denies: Chronic Kidney Disease Surgical History: Cholecystectomy - [facility] Procedures ALCOHOL DETOXIFICATION (07/04/15) APPLICATION OF SPLINT (03/20/13) CLOSURE SKIN & SUBCUTANEOUS NEC (08/14/13) DETOXIFICATION SERVICES FOR SUBSTANCE ABUSE TREATMENT (03/22/16) ESOPHAGOGASTRODUODENOSCOPY [EGD] W/CLOSED BIOPSY (02/16/15) INSERTION OF ENDOTRACHEAL AIRWAY INTO TRACHEA, VIA OPENING (09/11/18) OTHER GROUP THERAPY (03/12/13) PHYSICAL THERAPY NEC (07/04/15) RESPIRATORY VENTILATION, 24-96 CONSECUTIVE HOURS (09/11/18) TETANUS TOXOID ADMINIST (01/19/14) Family History: States: Unknown Family Hx - Social History Hx Tobacco Use: No Hx Alcohol Use: Yes Hx Substance Use: Yes - Immunization History Hx Tetanus Toxoid Vaccination: No Hx Influenza Vaccination: Yes Hx Pneumococcal Vaccination: Yes Review Of Systems Except As Marked, All Systems Reviewed And Found Negative. Constitutional: Negative for: Fever, Chills Physical Exam - Physical Exam Additional Physical Exam Comments: Constitutional: No acute distress. Head: Normocephalic. Atraumatic. Eyes: PERRL. ENT: Moist mucous membranes. Neck: Supple. Cardiovascular: Regular rate. Radial pulse 2+ bilaterally. Chest: No tenderness. Respiratory: Clear to auscultation bilaterally. GI: Soft. Nontender. Nondistended. Back: No CVA tenderness. Musculoskeletal: No tenderness or swelling of extremities. Skin: Lower extremity ulcers with clean dry intact dressings. No surrounding erythema or discharge. Neurologic: Alert, no focal deficit. ED Course And Treatment O2 Sat by Pulse Oximetry: 97 (RA) Pulse Ox Interpretation: Normal Disposition - Disposition Referrals: [facility] [Outside] Disposition: HOME/ ROUTINE Disposition Time: 20:17 Condition: STABLE Instructions: Wound Care Forms: [facility] ([place]orese) - Clinical Impression Clinical Impression: Skin lesion - Scribe Statement The provider has reviewed the documentation as recorded by the Scribe (Blessing Hernandez) Provider Attestation: All medical record entries made by the Scribe were at my direction and personally dictated by me. I have reviewed the chart and agree that the record accurately reflects my personal performance of the history, physical exam, medical decision making, and the department course for this patient. I have also personally directed, reviewed, and agree with the discharge instructions and disposition.
[2018-10-19 21:07] VITALS: RESP 20
[2018-10-19] MEDS ORDERED: Ammonia 2% Inhalant ONE (23:03)
[2018-10-20 00:56] VITALS: PULSE 108
[2018-10-20 05:13] VITALS: BP 126/72; TEMP 98.5; O2SAT 98
== END 2018-10-20 06:10 | disposition home or self-care (01) ==
LOC: C.ER 17:20
DX: L98.9 Disorder of the skin and subcutaneous tissue, unspecified (principal)

== ENCOUNTER 2018-10-20 20:23 | Emergency (ER) | payer MEDICAID ==
[2018-10-20 20:23] VITALS: BMI 31.4
== END 2018-10-20 20:32 | disposition left against medical advice (07) ==
LOC: C.ER 20:23
DX: Z02.89 Encounter for other administrative examinations (principal); F19.10 Other psychoactive substance abuse, uncomplicated

== ENCOUNTER 2018-10-21 19:23 | Emergency (ER) | payer MEDICAID ==
[2018-10-21 19:23] VITALS: BMI 31.4
[2018-10-21 20:00] VITALS: BP 118/78; PULSE 88; RESP 16; TEMP 97.5; O2SAT 96
--- NOTE | 2018-10-21 20:24 | C.PDOC ---
History Of Present Illness 58 year old male presents to the ER requesting a place to stay. Patient admits to ETOH use today. He has had many prior evaluations for the same. Last seen was last night by me. Denies any complaints at this time. Time Seen by Provider: 10/21/18 20:23 Chief Complaint (Nursing): Lower Extremity Problem/Injury History Per: Patient History/Exam Limitations: no limitations Onset/Duration Of Symptoms: Hrs Current Symptoms Are (Timing): Still Present Recent travel outside of the [place]: No Past Medical History Reviewed: Historical Data, Nursing Documentation, Vital Signs Vital Signs: Last Vital Signs Temp 97.5 F L 10/21/18 19:30 Pulse 88 10/21/18 19:30 Resp 16 10/21/18 19:30 BP 118/78 10/21/18 19:30 Pulse Ox 96 10/21/18 19:30 - Medical History PMH: Anxiety, Arthritis, Bronchitis, CAD, Depression, Diabetes (Pt. did not disclose to underwriter, not aware), Fractures (RIGHT ARM), Gastritis, Gall Bladder Disease (s/p cholecystectomy), HTN, Post Traumatic Stress Disorder, Rheumatoid Arthritis, Seizures, Chronic Pain Denies: Chronic Kidney Disease Surgical History: Cholecystectomy - [facility] Procedures ALCOHOL DETOXIFICATION (07/04/15) APPLICATION OF SPLINT (03/20/13) CLOSURE SKIN & SUBCUTANEOUS NEC (08/14/13) DETOXIFICATION SERVICES FOR SUBSTANCE ABUSE TREATMENT (03/22/16) ESOPHAGOGASTRODUODENOSCOPY [EGD] W/CLOSED BIOPSY (02/16/15) INSERTION OF ENDOTRACHEAL AIRWAY INTO TRACHEA, VIA OPENING (09/11/18) OTHER GROUP THERAPY (03/12/13) PHYSICAL THERAPY NEC (07/04/15) RESPIRATORY VENTILATION, 24-96 CONSECUTIVE HOURS (09/11/18) TETANUS TOXOID ADMINIST (01/19/14) Family History: States: Unknown Family Hx - Social History Hx Tobacco Use: No Hx Alcohol Use: Yes Hx Substance Use: Yes - Immunization History Hx Tetanus Toxoid Vaccination: No Hx Influenza Vaccination: Yes Hx Pneumococcal Vaccination: Yes Review Of Systems Constitutional: Positive for: Other (ETOH intoxication). Negative for: Fever, Chills Cardiovascular: Negative for: Chest Pain, Palpitations Respiratory: Negative for: Cough, Shortness of Breath Gastrointestinal: Negative for: Nausea, Vomiting Neurological: Negative for: Weakness, Numbness Physical Exam - Physical Exam Appears: Non-toxic, Other (Baseline disheveled foul smelling black male) Skin: Normal Color, Warm, Dry Head: Atraumatic, Normacephalic Eye(s): bilateral: Normal Inspection Oral Mucosa: Moist Neck: Normal, Supple Chest: Symmetrical, No Tenderness Cardiovascular: Rhythm Regular Respiratory: Normal Breath Sounds, No Rales, No Rhonchi, No Wheezing Gastrointestinal/Abdominal: Soft, No Tenderness Neurological/Psych: Oriented x3, Normal Speech ED Course And Treatment O2 Sat by Pulse Oximetry: 96 (Room air) Pulse Ox Interpretation: Normal Medical Decision Making Medical Decision Making: no acute issues Disposition Doctor Will See Patient In The: Office Counseled Patient/Family Regarding: Studies Performed, Diagnosis - Disposition Referrals: [facility] [Outside] [facility] [Outside] [facility] [Outside] [facility] [Outside] [facility] [Outside] Disposition: HOME/ ROUTINE Disposition Time: 20:24 Condition: GOOD Instructions: Alcohol Use - When Is Drinking a Problem?, Drug Abuse and Drug Addiction (DC) Forms: [facility] (Citizen Of [place]) - Clinical Impression Clinical Impression: Alcohol abuse, daily use, Homelessness - Scribe Statement The provider has reviewed the documentation as recorded by the Scribe Fabián Ramirez All medical record entries made by the Scribe were at my direction and personally dictated by me. I have reviewed the chart and agree that the record accurately reflects my personal performance of the history, physical exam, medical decision making, and the department course for this patient. I have also personally directed, reviewed, and agree with the discharge instructions and disposition.
== END 2018-10-21 20:40 | disposition home or self-care (01) ==
LOC: C.ER 19:23
DX: F10.10 Alcohol abuse, uncomplicated (principal); Z59.0 Homelessness; E11.9 Type 2 diabetes mellitus without complications

== ENCOUNTER 2018-10-22 21:05 | Emergency (ER) | payer MEDICAID ==
[2018-10-22 21:06] VITALS: BMI 31.4
--- NOTE | 2018-10-23 03:12 | C.PDOC ---
History Of Present Illness 58 year old male presents to the ER intoxicated and requesting a place to spend the night. Denies other complaints at this time. Chief Complaint (Nursing): Lower Extremity Problem/Injury History Per: Patient History/Exam Limitations: no limitations Onset/Duration Of Symptoms: Hrs Current Symptoms Are (Timing): Still Present Recent travel outside of the [place]: No Past Medical History Reviewed: Historical Data, Nursing Documentation, Vital Signs Vital Signs: Last Vital Signs Temp 97.9 F 10/23/18 03:00 Pulse 117 H 10/23/18 03:00 Resp 20 10/23/18 03:00 BP 134/85 10/23/18 03:00 Pulse Ox 97 10/23/18 03:00 - Medical History PMH: Anxiety, Arthritis, Bronchitis, CAD, Depression, Diabetes (Pt. 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 tester, not aware), Fractures (RIGHT ARM), Gastritis, Gall Bladder Disease (s/p cholecystectomy), HTN, Post Traumatic Stress Disorder, Rheumatoid Arthritis, Seizures, Chronic Pain Denies: Chronic Kidney Disease Surgical History: Cholecystectomy - [facility] Procedures ALCOHOL DETOXIFICATION (07/04/15) APPLICATION OF SPLINT (03/20/13) CLOSURE SKIN & SUBCUTANEOUS NEC (08/14/13) DETOXIFICATION SERVICES FOR SUBSTANCE ABUSE TREATMENT (03/22/16) ESOPHAGOGASTRODUODENOSCOPY [EGD] W/CLOSED BIOPSY (02/16/15) INSERTION OF ENDOTRACHEAL AIRWAY INTO TRACHEA, VIA OPENING (09/11/18) OTHER GROUP THERAPY (03/12/13) PHYSICAL THERAPY NEC (07/04/15) RESPIRATORY VENTILATION, 24-96 CONSECUTIVE HOURS (09/11/18) TETANUS TOXOID ADMINIST (01/19/14) Family History: States: Unknown Family Hx - Social History Hx Tobacco Use: No Hx Alcohol Use: Yes Hx Substance Use: No - Immunization History Hx Tetanus Toxoid Vaccination: No Hx Influenza Vaccination: Yes Hx Pneumococcal Vaccination: Yes Review Of Systems Constitutional: Negative for: Fever, Chills Cardiovascular: Negative for: Chest Pain, Palpitations Respiratory: Negative for: Cough, Shortness of Breath Gastrointestinal: Negative for: Nausea, Vomiting Neurological: Negative for: Weakness, Numbness Physical Exam - Physical Exam Appears: Non-toxic, Other (ETOH on breath, no sign of injury) Skin: Normal Color, Warm, Dry Head: Atraumatic, Normacephalic Eye(s): bilateral: Normal Inspection Oral Mucosa: Moist Chest: Symmetrical, No Tenderness Cardiovascular: Rhythm Regular Respiratory: Normal Breath Sounds, No Rales, No Rhonchi, No Wheezing Gastrointestinal/Abdominal: Soft, No Tenderness Back: No CVA Tenderness Neurological/Psych: Oriented x3, Normal Speech ED Course And Treatment O2 Sat by Pulse Oximetry: 97 (Room air) Pulse Ox Interpretation: Normal Disposition - Disposition Disposition: HOME/ ROUTINE Disposition Time: 05:20 Condition: STABLE Forms: [facility] (Upper Sorbian) - POA Present On Arrival: None - Clinical Impression Clinical Impression: Alcohol intoxication - Scribe Statement The provider has reviewed the documentation as recorded by the Scribe Fabián Ramirez All medical record entries made by the Scribe were at my direction and personally dictated by me. I have reviewed the chart and agree that the record accurately reflects my personal performance of the history, physical exam, medical decision making, and the department course for this patient. I have also personally directed, reviewed, and agree with the discharge instructions and disposition.
[2018-10-23 06:11] VITALS: BP 127/75; PULSE 82; RESP 18; TEMP 98.6
[2018-10-23 13:23] VITALS: O2SAT 97
== END 2018-10-23 05:45 | disposition home or self-care (01) ==
LOC: C.ER 21:05
DX: F10.129 Alcohol abuse with intoxication, unspecified (principal); Y90.9 Presence of alcohol in blood, level not specified

== ENCOUNTER 2018-10-23 20:26 | Emergency (ER) | payer MEDICAID ==
[2018-10-23 20:26] VITALS: BMI 31.4
[2018-10-23 21:23] VITALS: BP 132/78; PULSE 89; RESP 20; TEMP 97.9; O2SAT 97
--- NOTE | 2018-10-23 21:35 | C.PDOC ---
History Of Present Illness 58 year old male with PMHx of alcohol abuse presents to the ED requesting for a place to stay. Patient came in with his wheelchair, was seen for the past 4 nights with no new findings. Patient denies SI/HI, hallucinations, CP, SOB, injury, fall, trauma. Time Seen by Provider: 10/23/18 21:33 Chief Complaint (Nursing): Substance Abuse History Per: Patient History/Exam Limitations: intoxication Onset/Duration Of Symptoms: Hrs Current Symptoms Are (Timing): Still Present Suicide/Self Injury Attempted (Context): None Modifying Factor(s): Alcohol Associated Symptoms: denies: Depression, Suicidal Thoughts, Suicidal Plan Recent travel outside of the [place]: No Additional History Per: Patient Past Medical History Reviewed: Historical Data, Nursing Documentation, Vital Signs Vital Signs: Last Vital Signs Temp 97.9 F 10/23/18 21:20 Pulse 89 10/23/18 21:20 Resp 20 10/23/18 21:20 BP 132/78 10/23/18 21:20 Pulse Ox 97 10/23/18 21:20 - Medical History PMH: Anxiety, Arthritis, Bronchitis, CAD, Depression, Diabetes (Pt. did not disclose to radio news writer, not aware), Fractures (RIGHT ARM), Gastritis, Gall Bladder Disease (s/p cholecystectomy), HTN, Post Traumatic Stress Disorder, Rheumatoid Arthritis, Seizures, Chronic Pain Denies: Chronic Kidney Disease Surgical History: Cholecystectomy - [facility] Procedures ALCOHOL DETOXIFICATION (07/04/15) APPLICATION OF SPLINT (03/20/13) CLOSURE SKIN & SUBCUTANEOUS NEC (08/14/13) DETOXIFICATION SERVICES FOR SUBSTANCE ABUSE TREATMENT (03/22/16) ESOPHAGOGASTRODUODENOSCOPY [EGD] W/CLOSED BIOPSY (02/16/15) INSERTION OF ENDOTRACHEAL AIRWAY INTO TRACHEA, VIA OPENING (09/11/18) OTHER GROUP THERAPY (03/12/13) PHYSICAL THERAPY NEC (07/04/15) RESPIRATORY VENTILATION, 24-96 CONSECUTIVE HOURS (09/11/18) TETANUS TOXOID ADMINIST (01/19/14) Family History: States: Unknown Family Hx - Social History Hx Tobacco Use: No Hx Alcohol Use: Yes Hx Substance Use: Yes - Immunization History Hx Tetanus Toxoid Vaccination: No Hx Influenza Vaccination: Yes Hx Pneumococcal Vaccination: Yes Review Of Systems Constitutional: Negative for: Fever, Chills Eyes: Negative for: Vision Change Cardiovascular: Negative for: Chest Pain Gastrointestinal: Negative for: Nausea, Vomiting, Abdominal Pain Skin: Negative for: Rash Psych: Negative for: Depression, Suicidal ideation Physical Exam - Physical Exam Appears: Non-toxic, No Acute Distress, Unkempt, Other (disheveled, foul smelling, AOB) Skin: Normal Color, Warm, Dry Head: Atraumatic, Normacephalic Eye(s): bilateral: Normal Inspection Neck: Normal ROM, Supple Chest: Symmetrical Cardiovascular: Rhythm Regular Respiratory: Normal Breath Sounds, No Rales, No Rhonchi, No Wheezing Gastrointestinal/Abdominal: Soft, No Tenderness, No Guarding, No Rebound Extremity: Normal ROM Neurological/Psych: Oriented x3, Normal Speech, Normal Cognition Gait: With Assistance (wheelchair) ED Course And Treatment O2 Sat by Pulse Oximetry: 97 (ON RA) Pulse Ox Interpretation: Normal Medical Decision Making Medical Decision Making: alcohol abuse malingering no new issues ok for dispo to fci Disposition Doctor Will See Patient In The: Office Counseled Patient/Family Regarding: Studies Performed, Diagnosis - Disposition Referrals: Alcoholics Anonymous [Outside] [facility] [Outside] [facility] [Outside] [facility] [Outside] [facility] [Outside] Disposition: HOME/ ROUTINE Disposition Time: 21:34 Condition: GOOD Additional Instructions: seek nightly fci placement seek AA and psych resources Instructions: Alcohol Use - When Is Drinking a Problem?, Alcohol Abuse and Alcoholism (DC) Forms: [facility] (Mohawk) - Clinical Impression Clinical Impression: Alcohol abuse, daily use, Homelessness - Scribe Statement The provider has reviewed the documentation as recorded by the Scribjosé miguel Brown All medical record entries made by the Scribe were at my direction and personally dictated by me. I have reviewed the chart and agree that the record accurately reflects my personal performance of the history, physical exam, medical decision making, and the department course for this patient. I have also personally directed, reviewed, and agree with the discharge instructions and disposition.
== END 2018-10-23 21:59 | disposition home or self-care (01) ==
LOC: C.ER 20:26
DX: F10.10 Alcohol abuse, uncomplicated (principal); Z59.0 Homelessness

== ENCOUNTER 2018-10-24 21:50 | Emergency (ER) | payer MEDICAID ==
[2018-10-24 21:50] VITALS: BMI 31.4
[2018-10-24 22:47] VITALS: RESP 20; O2SAT 96
--- NOTE | 2018-10-25 00:41 | C.PDOC ---
History Of Present Illness 58 year old male presents to the ED requesting for a place to spend the night. Patient came in by himself with his wheelchair, admits to drinking alcohol. Patient denies SI/HI, hallucinations, CP, SOB, injury, fall, trauma. Time Seen by Provider: 10/25/18 00:39 Chief Complaint (Nursing): Substance Abuse History Per: Patient History/Exam Limitations: intoxication Onset/Duration Of Symptoms: Hrs Current Symptoms Are (Timing): Still Present Suicide/Self Injury Attempted (Context): None Modifying Factor(s): Alcohol Associated Symptoms: denies: Depression, Suicidal Thoughts, Suicidal Plan Recent travel outside of the [place]: No Additional History Per: Patient Past Medical History Reviewed: Historical Data, Nursing Documentation, Vital Signs Vital Signs: Last Vital Signs Temp 98.1 F 10/24/18 22:41 Pulse 88 10/24/18 22:41 Resp 20 10/24/18 22:41 BP 138/79 10/24/18 22:41 Pulse Ox 96 10/24/18 22:41 - Medical History PMH: Anxiety, Arthritis, Bronchitis, CAD, Depression, Diabetes (Pt. did not disclose to group underwriter, not aware), Fractures (RIGHT ARM), Gastritis, Gall Bladder Disease (s/p cholecystectomy), HTN, Post Traumatic Stress Disorder, Rheumatoid Arthritis, Seizures, Chronic Pain Denies: Chronic Kidney Disease Surgical History: Cholecystectomy - [facility] Procedures ALCOHOL DETOXIFICATION (07/04/15) APPLICATION OF SPLINT (03/20/13) CLOSURE SKIN & SUBCUTANEOUS NEC (08/14/13) DETOXIFICATION SERVICES FOR SUBSTANCE ABUSE TREATMENT (03/22/16) ESOPHAGOGASTRODUODENOSCOPY [EGD] W/CLOSED BIOPSY (02/16/15) INSERTION OF ENDOTRACHEAL AIRWAY INTO TRACHEA, VIA OPENING (09/11/18) OTHER GROUP THERAPY (03/12/13) PHYSICAL THERAPY NEC (07/04/15) RESPIRATORY VENTILATION, 24-96 CONSECUTIVE HOURS (09/11/18) TETANUS TOXOID ADMINIST (01/19/14) Family History: States: Unknown Family Hx - Social History Hx Tobacco Use: No Hx Alcohol Use: Yes Hx Substance Use: Yes - Immunization History Hx Tetanus Toxoid Vaccination: No Hx Influenza Vaccination: Yes Hx Pneumococcal Vaccination: Yes Review Of Systems Constitutional: Negative for: Fever, Chills Cardiovascular: Negative for: Chest Pain Respiratory: Negative for: Shortness of Breath Gastrointestinal: Negative for: Nausea, Vomiting, Abdominal Pain Skin: Negative for: Rash Psych: Negative for: Depression, Suicidal ideation Physical Exam - Physical Exam Appears: Non-toxic, No Acute Distress Skin: Warm, Dry Head: Normacephalic Eye(s): bilateral: Normal Inspection Neck: Supple Chest: Symmetrical Cardiovascular: Rhythm Regular Respiratory: No Rales, No Rhonchi, No Wheezing Gastrointestinal/Abdominal: Soft, No Tenderness, No Guarding, No Rebound Neurological/Psych: Oriented x3 Gait: With Assistance (wheelchair) ED Course And Treatment O2 Sat by Pulse Oximetry: 96 (ON RA) Pulse Ox Interpretation: Normal Reevaluation Time: 05:23 Reassessment Condition: Improved Disposition Counseled Patient/Family Regarding: Studies Performed, Diagnosis, Need For Followup - Disposition Referrals: [facility] [Outside] Disposition: HOME/ ROUTINE Disposition Time: 00:40 Condition: FAIR Instructions: Alcohol Abuse and Alcoholism (DC) Forms: [employer] [facility] (Citizen Of [place]) - Clinical Impression Clinical Impression: Alcohol intoxication - Scribe Statement The provider has reviewed the documentation as recorded by the Scribe Woo Brown All medical record entries made by the Scribe were at my direction and personally dictated by me. I have reviewed the chart and agree that the record accurately reflects my personal performance of the history, physical exam, medical decision making, and the department course for this patient. I have also personally directed, reviewed, and agree with the discharge instructions and disposition.
[2018-10-25 04:01] VITALS: BP 128/84; PULSE 84; TEMP 98.3
== END 2018-10-25 05:41 | disposition home or self-care (01) ==
LOC: C.ER 21:50
DX: F10.129 Alcohol abuse with intoxication, unspecified (principal); E11.9 Type 2 diabetes mellitus without complications; I25.10 Atherosclerotic heart disease of native coronary artery without angina pectoris

== ENCOUNTER 2018-10-25 18:04 | Emergency (ER) | payer MEDICAID ==
[2018-10-25 18:05] VITALS: BMI 31.4
--- NOTE | 2018-10-25 19:34 | C.PDOC ---
Time Seen by Provider: 10/25/18 19:32 Chief Complaint (Nursing): Substance Abuse Past Medical History Vital Signs: Last Vital Signs Temp 97.6 F 10/25/18 18:16 Pulse 94 H 10/25/18 18:16 Resp 20 10/25/18 18:16 BP 127/74 10/25/18 18:16 Pulse Ox 96 10/25/18 18:16 - Medical History PMH: Anxiety, Arthritis, Bronchitis, CAD, Depression, Diabetes (Pt. did not disclose to creative writer, not aware), Fractures (RIGHT ARM), Gastritis, Gall Bladder Disease (s/p cholecystectomy), HTN, Post Traumatic Stress Disorder, Rheumatoid Arthritis, Seizures, Chronic Pain Denies: Chronic Kidney Disease Surgical History: Cholecystectomy - [facility] Procedures ALCOHOL DETOXIFICATION (07/04/15) APPLICATION OF SPLINT (03/20/13) CLOSURE SKIN & SUBCUTANEOUS NEC (08/14/13) DETOXIFICATION SERVICES FOR SUBSTANCE ABUSE TREATMENT (03/22/16) ESOPHAGOGASTRODUODENOSCOPY [EGD] W/CLOSED BIOPSY (02/16/15) INSERTION OF ENDOTRACHEAL AIRWAY INTO TRACHEA, VIA OPENING (09/11/18) OTHER GROUP THERAPY (03/12/13) PHYSICAL THERAPY NEC (07/04/15) RESPIRATORY VENTILATION, 24-96 CONSECUTIVE HOURS (09/11/18) TETANUS TOXOID ADMINIST (01/19/14) Family History: States: Unknown Family Hx - Social History Hx Tobacco Use: No Hx Alcohol Use: Yes Hx Substance Use: Yes - Immunization History Hx Tetanus Toxoid Vaccination: No Hx Influenza Vaccination: Yes Hx Pneumococcal Vaccination: Yes ED Course And Treatment O2 Sat by Pulse Oximetry: 96 Disposition Counseled Patient/Family Regarding: Studies Performed, Diagnosis, Need For Followup - Disposition Referrals: [facility] [Outside] Disposition: HOME/ ROUTINE Disposition Time: 19:33 Condition: FAIR Instructions: Alcohol Abuse and Alcoholism (DC) - Clinical Impression Clinical Impression: Alcohol intoxication, Chronic alcoholism
--- NOTE | 2018-10-25 19:37 | C.PDOC ---
History Of Present Illness 58 y/o male brought in by EMS after being found intoxicated in public. Patient has alcohol on breath. Patient has no physical complaints. Time Seen by Provider: 10/25/18 19:32 Chief Complaint (Nursing): Substance Abuse History Per: EMS History/Exam Limitations: no limitations Onset/Duration Of Symptoms: Days Current Symptoms Are (Timing): Still Present Suicide/Self Injury Attempted (Context): None Modifying Factor(s): Alcohol Severity: None Pain Scale Rating Of: 0 Involuntary Hold By: None Recent travel outside of the [place]: No Past Medical History Reviewed: Historical Data, Nursing Documentation, Vital Signs Vital Signs: Last Vital Signs Temp 97.6 F 10/25/18 18:16 Pulse 94 H 10/25/18 18:16 Resp 20 10/25/18 18:16 BP 127/74 10/25/18 18:16 Pulse Ox 96 10/25/18 18:16 - Medical History PMH: Anxiety, Arthritis, Bronchitis, CAD, Depression, Diabetes (Pt. did not disclose to securities underwriter, not aware), Fractures (RIGHT ARM), Gastritis, Gall Bladder Disease (s/p cholecystectomy), HTN, Post Traumatic Stress Disorder, Rheumatoid Arthritis, Seizures, Chronic Pain Denies: Chronic Kidney Disease Surgical History: Cholecystectomy - [facility] Procedures ALCOHOL DETOXIFICATION (07/04/15) APPLICATION OF SPLINT (03/20/13) CLOSURE SKIN & SUBCUTANEOUS NEC (08/14/13) DETOXIFICATION SERVICES FOR SUBSTANCE ABUSE TREATMENT (03/22/16) ESOPHAGOGASTRODUODENOSCOPY [EGD] W/CLOSED BIOPSY (02/16/15) INSERTION OF ENDOTRACHEAL AIRWAY INTO TRACHEA, VIA OPENING (09/11/18) OTHER GROUP THERAPY (03/12/13) PHYSICAL THERAPY NEC (07/04/15) RESPIRATORY VENTILATION, 24-96 CONSECUTIVE HOURS (09/11/18) TETANUS TOXOID ADMINIST (01/19/14) Family History: States: No Known Family Hx - Social History Hx Tobacco Use: No Hx Alcohol Use: Yes Hx Substance Use: Yes - Immunization History Hx Tetanus Toxoid Vaccination: No Hx Influenza Vaccination: Yes Hx Pneumococcal Vaccination: Yes Review Of Systems Constitutional: Negative for: Fever Cardiovascular: Negative for: Chest Pain Respiratory: Negative for: Shortness of Breath Gastrointestinal: Negative for: Vomiting Psych: Positive for: Other (Alcohol intoxication). Negative for: Suicidal ideation Physical Exam - Physical Exam Appears: Non-toxic, No Acute Distress, Other (Alcohol on breath) Skin: Warm, Dry Head: Normacephalic Eye(s): bilateral: Normal Inspection Oral Mucosa: Moist Neck: Trachea Midline, Supple Chest: Symmetrical Cardiovascular: Rhythm Regular Respiratory: No Rales, No Rhonchi, No Wheezing Gastrointestinal/Abdominal: Soft, No Tenderness, No Distention Extremity: Bilateral: Normal Color And Temperature Neurological/Psych: Oriented x3 Gait: With Assistance (Wheelchair) ED Course And Treatment O2 Sat by Pulse Oximetry: 96 (RA) Pulse Ox Interpretation: Normal Progress Note: Glucose, POC ordered. Reevaluation Time: 05:16 Reassessment Condition: Improved Disposition Counseled Patient/Family Regarding: Studies Performed, Diagnosis - Disposition Referrals: [facility] [Outside] Disposition: HOME/ ROUTINE Disposition Time: 22:55 Condition: FAIR Instructions: Alcohol Abuse and Alcoholism (DC) Forms: [employer] [facility] (Slovak) - Clinical Impression Clinical Impression: Alcohol intoxication, Chronic alcoholism - Scribe Statement The provider has reviewed the documentation as recorded by the Jada Bullock Provider Attestation: All medical record entries made by the Rominaibjosé miguel were at my direction and personally dictated by me. I have reviewed the chart and agree that the record accurately reflects my personal performance of the history, physical exam, medical decision making, and the department course for this patient. I have also personally directed, reviewed, and agree with the discharge instructions and disposition.
[2018-10-26 06:22] VITALS: BP 142/83; PULSE 113; RESP 16; TEMP 98.6; O2SAT 98
== END 2018-10-26 06:50 | disposition home or self-care (01) ==
LOC: C.ER 18:04
DX: F10.229 Alcohol dependence with intoxication, unspecified (principal); Y90.9 Presence of alcohol in blood, level not specified

== ENCOUNTER 2018-10-26 18:13 | Emergency (ER) | payer MEDICAID ==
[2018-10-26 18:14] VITALS: BMI 31.4
--- NOTE | 2018-10-26 19:22 | C.PDOC ---
History Of Present Illness 58 y/o male arrives via wheelchair to the ED, complaining of chronic leg pain. Patient also states he needs somewhere to stay the night. Otherwise he denies any new pain, recent falls or trauma. No fevers or chills. Patient has PMHx of alcohol abuse. Admits to drinking alcohol today. Time Seen by Provider: 10/26/18 19:10 Chief Complaint (Nursing): Lower Extremity Problem/Injury History Per: Patient History/Exam Limitations: no limitations Onset/Duration Of Symptoms: Days Current Symptoms Are (Timing): Still Present Past Medical History Reviewed: Historical Data, Nursing Documentation, Vital Signs Vital Signs: Last Vital Signs Temp 98 F 10/26/18 18:19 Pulse 93 H 10/26/18 18:19 Resp 18 10/26/18 18:19 BP 138/89 10/26/18 18:19 Pulse Ox 99 10/26/18 18:19 - Medical History PMH: Anxiety, Arthritis, Bronchitis, CAD, Depression, Diabetes (Pt. did not disclose to process description writer, not aware), Fractures (RIGHT ARM), Gastritis, Gall Bladder Disease (s/p cholecystectomy), HTN, Post Traumatic Stress Disorder, Rheumatoid Arthritis, Seizures, Chronic Pain Denies: Chronic Kidney Disease Surgical History: Cholecystectomy - [facility] Procedures ALCOHOL DETOXIFICATION (07/04/15) APPLICATION OF SPLINT (03/20/13) CLOSURE SKIN & SUBCUTANEOUS NEC (08/14/13) DETOXIFICATION SERVICES FOR SUBSTANCE ABUSE TREATMENT (03/22/16) ESOPHAGOGASTRODUODENOSCOPY [EGD] W/CLOSED BIOPSY (02/16/15) INSERTION OF ENDOTRACHEAL AIRWAY INTO TRACHEA, VIA OPENING (09/11/18) OTHER GROUP THERAPY (03/12/13) PHYSICAL THERAPY NEC (07/04/15) RESPIRATORY VENTILATION, 24-96 CONSECUTIVE HOURS (09/11/18) TETANUS TOXOID ADMINIST (01/19/14) Family History: States: Unknown Family Hx - Social History Hx Tobacco Use: No Hx Alcohol Use: Yes Hx Substance Use: Yes - Immunization History Hx Tetanus Toxoid Vaccination: No Hx Influenza Vaccination: Yes Hx Pneumococcal Vaccination: Yes Review Of Systems Constitutional: Negative for: Fever, Chills Cardiovascular: Negative for: Chest Pain Respiratory: Negative for: Shortness of Breath Gastrointestinal: Negative for: Vomiting Musculoskeletal: Positive for: Leg Pain Neurological: Negative for: Weakness, Numbness Psych: Positive for: Other (ETOH intoxication) Physical Exam - Physical Exam Appears: Non-toxic, No Acute Distress Skin: Warm, Dry Head: Atraumatic, Normacephalic Eye(s): bilateral: Normal Inspection, PERRL, EOMI Oral Mucosa: Moist Neck: Normal ROM Chest: Symmetrical Cardiovascular: Rhythm Regular Respiratory: No Accessory Muscle Use, Other (No respiratory distress) Gastrointestinal/Abdominal: Soft, No Tenderness Back: Normal Inspection Extremity: Normal ROM, Capillary Refill (less than 2 sec), Other (Chronic skin changes noted to B/L LE) Pulses: Left Dorsalis Pedis: Normal, Right Dorsalis Pedis: Normal Neurological/Psych: Oriented x3, Other (+ Alcohol on breath) Gait: With Assistance (WHEELCHAIR) ED Course And Treatment O2 Sat by Pulse Oximetry: 99 (RA) Pulse Ox Interpretation: Normal Progress Note: Patient presents w/ no acute complaints, requesting a place to sleep. Many prior ED visits for same. Plan is to observe in the ED and discharge when clinically sober. Disposition Counseled Patient/Family Regarding: Diagnosis - Disposition Referrals: [facility] [Outside] Disposition: HOME/ ROUTINE Disposition Time: 00:03 Condition: STABLE Instructions: Alcohol Abuse and Alcoholism (DC) Forms: [facility] ([place]an) - POA Present On Arrival: None - Clinical Impression Clinical Impression: Alcohol abuse - Scribe Statement The provider has reviewed the documentation as recorded by the Jada Gunter Provider Attestation: All medical record entries made by the Rominaibe were at my direction and personally dictated by me. I have reviewed the chart and agree that the record accurately reflects my personal performance of the history, physical exam, medical decision making, and the department course for this patient. I have also personally directed, reviewed, and agree with the discharge instructions and disposition.
[2018-10-26 23:49] VITALS: BP 133/81; PULSE 88; RESP 20; TEMP 97.7
[2018-10-27 00:04] VITALS: O2SAT 99
== END 2018-10-26 23:39 | disposition home or self-care (01) ==
LOC: C.ER 18:13
DX: F10.10 Alcohol abuse, uncomplicated (principal)

== ENCOUNTER 2018-10-27 20:16 | Emergency (ER) | payer MEDICAID ==
[2018-10-27 20:17] VITALS: BMI 31.4
--- NOTE | 2018-10-27 21:22 | C.PDOC ---
History Of Present Illness 58 year old male presents to the ED requesting for a place to spend the night. Patient is well known to the ED with multiple visits for the same presentation. Patient admits to drinking alcohol tonight. Patient denies SI/HI, hallucinations, CP, SOB, injury, fall, trauma. Time Seen by Provider: 10/27/18 21:21 Chief Complaint (Nursing): Substance Abuse History Per: Patient History/Exam Limitations: no limitations Onset/Duration Of Symptoms: Hrs Current Symptoms Are (Timing): Still Present Suicide/Self Injury Attempted (Context): None Modifying Factor(s): Alcohol Associated Symptoms: denies: Depression, Suicidal Thoughts, Suicidal Plan Recent travel outside of the [place]: No Additional History Per: Patient Past Medical History Reviewed: Historical Data, Nursing Documentation, Vital Signs - Medical History PMH: Anxiety, Arthritis, Bronchitis, CAD, Depression, Diabetes (Pt. did not disclose to script writer, not aware), Fractures (RIGHT ARM), Gastritis, Gall Bladder Disease (s/p cholecystectomy), HTN, Post Traumatic Stress Disorder, Rheumatoid Arthritis, Seizures, Chronic Pain Denies: Chronic Kidney Disease Surgical History: Cholecystectomy - [facility] Procedures ALCOHOL DETOXIFICATION (07/04/15) APPLICATION OF SPLINT (03/20/13) CLOSURE SKIN & SUBCUTANEOUS NEC (08/14/13) DETOXIFICATION SERVICES FOR SUBSTANCE ABUSE TREATMENT (03/22/16) ESOPHAGOGASTRODUODENOSCOPY [EGD] W/CLOSED BIOPSY (02/16/15) INSERTION OF ENDOTRACHEAL AIRWAY INTO TRACHEA, VIA OPENING (09/11/18) OTHER GROUP THERAPY (03/12/13) PHYSICAL THERAPY NEC (07/04/15) RESPIRATORY VENTILATION, 24-96 CONSECUTIVE HOURS (09/11/18) TETANUS TOXOID ADMINIST (01/19/14) Family History: States: Unknown Family Hx - Social History Hx Tobacco Use: No Hx Alcohol Use: Yes Hx Substance Use: No - Immunization History Hx Tetanus Toxoid Vaccination: No Hx Influenza Vaccination: Yes Hx Pneumococcal Vaccination: Yes Review Of Systems Constitutional: Negative for: Fever, Chills Cardiovascular: Negative for: Chest Pain Respiratory: Negative for: Shortness of Breath Gastrointestinal: Negative for: Nausea, Vomiting, Abdominal Pain Skin: Negative for: Rash Psych: Negative for: Depression, Suicidal ideation Physical Exam - Physical Exam Appears: Non-toxic, No Acute Distress Skin: Warm, Dry Head: Normacephalic Eye(s): bilateral: Normal Inspection Neck: Supple Chest: Symmetrical Cardiovascular: Rhythm Regular Respiratory: No Rales, No Rhonchi, No Wheezing Gastrointestinal/Abdominal: Soft, No Tenderness, No Guarding, No Rebound Extremity: Bilateral: Atraumatic, Normal Color And Temperature, Normal ROM Neurological/Psych: Oriented x3, Normal Speech, Normal Cognition Gait: With Assistance (wheelchair) ED Course And Treatment O2 Sat by Pulse Oximetry: 97 (ON RA) Pulse Ox Interpretation: Normal Progress Note: Pt clinically sober Reevaluation Time: 05:48 Reassessment Condition: Improved Disposition Counseled Patient/Family Regarding: Studies Performed, Diagnosis, Need For Followup - Disposition Referrals: [facility] [Outside] Disposition: HOME/ ROUTINE Disposition Time: 21:21 Condition: FAIR Instructions: Alcohol Abuse and Alcoholism (DC) Forms: [facility] (Indonesian) - Clinical Impression Clinical Impression: Alcohol intoxication, Chronic alcoholism - Scribe Statement The provider has reviewed the documentation as recorded by the Scribe Woo Brown All medical record entries made by the Scribe were at my direction and personally dictated by me. I have reviewed the chart and agree that the record accurately reflects my personal performance of the history, physical exam, medical decision making, and the department course for this patient. I have also personally directed, reviewed, and agree with the discharge instructions and disposition.
[2018-10-28 05:49] VITALS: O2SAT 97
[2018-10-28 05:52] VITALS: BP 138/85; PULSE 101; RESP 18; TEMP 98
== END 2018-10-28 05:52 | disposition home or self-care (01) ==
LOC: C.ER 20:16
DX: F10.229 Alcohol dependence with intoxication, unspecified (principal); Y90.9 Presence of alcohol in blood, level not specified

== ENCOUNTER 2018-10-28 19:45 | Emergency (ER) | payer MEDICAID ==
[2018-10-28 19:45] VITALS: BMI 31.4
--- NOTE | 2018-10-28 21:43 | C.PDOC ---
History Of Present Illness 58 year old male presents to the ED requesting for a place to sleep tonight. Patient is well known to the ED with multiple prior visits to the ED with the same presentation. Patient admits to drinking alcohol today. Patient denies fever, chills, SI/HI, hallucinations, injury, fall, trauma. Time Seen by Provider: 10/28/18 21:42 Chief Complaint (Nursing): Substance Abuse History Per: Patient History/Exam Limitations: intoxication Onset/Duration Of Symptoms: Hrs Current Symptoms Are (Timing): Still Present Suicide/Self Injury Attempted (Context): None Modifying Factor(s): Alcohol Associated Symptoms: denies: Depression, Suicidal Thoughts, Suicidal Plan Recent travel outside of the [place]: No Additional History Per: Patient Past Medical History Reviewed: Historical Data, Nursing Documentation, Vital Signs Vital Signs: Last Vital Signs Temp 97.9 F 10/28/18 19:51 Pulse 93 H 10/28/18 19:51 Resp 20 10/28/18 19:51 BP 125/77 10/28/18 19:51 Pulse Ox 96 10/28/18 19:51 - Medical History PMH: Anxiety, Arthritis, Bronchitis, CAD, Depression, Diabetes (Pt. did not disclose to copy writer, not aware), Fractures (RIGHT ARM), Gastritis, Gall Bladder Disease (s/p cholecystectomy), HTN, Post Traumatic Stress Disorder, Rheumatoid Arthritis, Seizures, Chronic Pain Denies: Chronic Kidney Disease Surgical History: Cholecystectomy - [facility] Procedures ALCOHOL DETOXIFICATION (07/04/15) APPLICATION OF SPLINT (03/20/13) CLOSURE SKIN & SUBCUTANEOUS NEC (08/14/13) DETOXIFICATION SERVICES FOR SUBSTANCE ABUSE TREATMENT (03/22/16) ESOPHAGOGASTRODUODENOSCOPY [EGD] W/CLOSED BIOPSY (02/16/15) INSERTION OF ENDOTRACHEAL AIRWAY INTO TRACHEA, VIA OPENING (09/11/18) OTHER GROUP THERAPY (03/12/13) PHYSICAL THERAPY NEC (07/04/15) RESPIRATORY VENTILATION, 24-96 CONSECUTIVE HOURS (09/11/18) TETANUS TOXOID ADMINIST (01/19/14) Family History: States: No Known Family Hx - Social History Hx Tobacco Use: No Hx Alcohol Use: Yes Hx Substance Use: No - Immunization History Hx Tetanus Toxoid Vaccination: No Hx Influenza Vaccination: Yes Hx Pneumococcal Vaccination: Yes Review Of Systems Constitutional: Negative for: Fever, Chills Cardiovascular: Negative for: Chest Pain, Palpitations Respiratory: Negative for: Shortness of Breath Gastrointestinal: Negative for: Nausea, Vomiting, Abdominal Pain Skin: Negative for: Rash Psych: Negative for: Depression, Suicidal ideation Physical Exam - Physical Exam Appears: Non-toxic, No Acute Distress Skin: Warm, Dry Head: Normacephalic Eye(s): bilateral: Normal Inspection Neck: Supple Chest: Symmetrical Cardiovascular: Rhythm Regular Respiratory: No Rales, No Rhonchi, No Wheezing Gastrointestinal/Abdominal: Soft, No Tenderness, No Guarding, No Rebound Extremity: Bilateral: Atraumatic, Normal Color And Temperature, Normal ROM Neurological/Psych: Oriented x3, Normal Speech, Normal Cognition Gait: With Assistance (wheelchair) ED Course And Treatment O2 Sat by Pulse Oximetry: 96 (On RA) Pulse Ox Interpretation: Normal Disposition Counseled Patient/Family Regarding: Studies Performed, Diagnosis, Need For Followup - Disposition Referrals: [facility] at [facility] [Outside] Disposition: HOME/ ROUTINE Disposition Time: 21:43 Condition: FAIR Instructions: Alcohol Abuse and Alcoholism (DC) Forms: [employer] (Ukrainian) - Clinical Impression Clinical Impression: Alcohol abuse, daily use, Alcohol intoxication - Scribe Statement The provider has reviewed the documentation as recorded by the Scribe Woo Brown All medical record entries made by the Scribe were at my direction and personally dictated by me. I have reviewed the chart and agree that the record accurately reflects my personal performance of the history, physical exam, medical decision making, and the department course for this patient. I have also personally directed, reviewed, and agree with the discharge instructions and disposition.
[2018-10-29 04:42] VITALS: BP 109/59; PULSE 100; RESP 18; TEMP 98.6; O2SAT 95
== END 2018-10-29 04:43 | disposition home or self-care (01) ==
LOC: C.ER 19:45
DX: F10.129 Alcohol abuse with intoxication, unspecified (principal); E11.9 Type 2 diabetes mellitus without complications; I25.10 Atherosclerotic heart disease of native coronary artery without angina pectoris

== ENCOUNTER 2018-10-29 18:46 | Emergency (ER) | payer MEDICAID ==
[2018-10-29 18:46] VITALS: BMI 31.4
[2018-10-29 19:02] VITALS: RESP 18; O2SAT 98
--- NOTE | 2018-10-29 20:27 | C.PDOC ---
History Of Present Illness 58 year old male presents to the ER with acute ETOH intoxication requesting a place to spend the night. Denies any complaints at this time. Chief Complaint (Nursing): Lower Extremity Problem/Injury History Per: Patient History/Exam Limitations: no limitations Onset/Duration Of Symptoms: Hrs Current Symptoms Are (Timing): Still Present Recent travel outside of the [place]: No Past Medical History Reviewed: Historical Data, Nursing Documentation, Vital Signs Vital Signs: Last Vital Signs Temp 97.6 F 10/29/18 18:59 Pulse 94 H 10/29/18 18:59 Resp 18 10/29/18 18:59 BP 138/96 H 10/29/18 18:59 Pulse Ox 98 10/29/18 18:59 - Medical History PMH: Anxiety, Arthritis, Bronchitis, CAD, Depression, Diabetes (Pt. 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, not aware), Fractures (RIGHT ARM), Gastritis, Gall Bladder Disease (s/p cholecystectomy), HTN, Post Traumatic Stress Disorder, Rheumatoid Arthritis, Seizures, Chronic Pain Denies: Chronic Kidney Disease Surgical History: Cholecystectomy - [facility] Procedures ALCOHOL DETOXIFICATION (07/04/15) APPLICATION OF SPLINT (03/20/13) CLOSURE SKIN & SUBCUTANEOUS NEC (08/14/13) DETOXIFICATION SERVICES FOR SUBSTANCE ABUSE TREATMENT (03/22/16) ESOPHAGOGASTRODUODENOSCOPY [EGD] W/CLOSED BIOPSY (02/16/15) INSERTION OF ENDOTRACHEAL AIRWAY INTO TRACHEA, VIA OPENING (09/11/18) OTHER GROUP THERAPY (03/12/13) PHYSICAL THERAPY NEC (07/04/15) RESPIRATORY VENTILATION, 24-96 CONSECUTIVE HOURS (09/11/18) TETANUS TOXOID ADMINIST (01/19/14) Family History: States: Unknown Family Hx - Social History Hx Tobacco Use: No Hx Alcohol Use: Yes Hx Substance Use: No - Immunization History Hx Tetanus Toxoid Vaccination: No Hx Influenza Vaccination: Yes Hx Pneumococcal Vaccination: Yes Review Of Systems Constitutional: Negative for: Fever, Chills Cardiovascular: Negative for: Chest Pain, Palpitations Respiratory: Negative for: Cough, Shortness of Breath Gastrointestinal: Negative for: Nausea, Vomiting Neurological: Negative for: Weakness, Numbness Physical Exam - Physical Exam Appears: Non-toxic, Other (ETOH on breath, no sign of injury) Skin: Normal Color, Warm, Dry Head: Atraumatic, Normacephalic Oral Mucosa: Moist Chest: Symmetrical, No Tenderness Cardiovascular: Rhythm Regular Respiratory: Normal Breath Sounds, No Rales, No Rhonchi, No Wheezing Gastrointestinal/Abdominal: Soft, No Tenderness Neurological/Psych: Oriented x3, Normal Speech ED Course And Treatment O2 Sat by Pulse Oximetry: 98 (Room air) Pulse Ox Interpretation: Normal Disposition Counseled Patient/Family Regarding: Diagnosis - Disposition Referrals: [facility] [Outside] Disposition: HOME/ ROUTINE Disposition Time: 05:00 Condition: STABLE Forms: [employer] (Kyrgyz) - POA Present On Arrival: None - Clinical Impression Clinical Impression: Chronic alcoholism, Alcoholism /alcohol abuse - Scribe Statement The provider has reviewed the documentation as recorded by the Scribe Fabián Ramirez All medical record entries made by the Scribe were at my direction and pers onally dictated by me. I have reviewed the chart and agree that the record accurately reflects my personal performance of the history, physical exam, medical decision making, and the department course for this patient. I have also personally directed, reviewed, and agree with the discharge instructions and disposition.
[2018-10-29 21:08] VITALS: BP 128/88; PULSE 92; TEMP 98.2
== END 2018-10-29 21:08 | disposition home or self-care (01) ==
LOC: C.ER 18:46
DX: F10.229 Alcohol dependence with intoxication, unspecified (principal); E11.9 Type 2 diabetes mellitus without complications; I25.10 Atherosclerotic heart disease of native coronary artery without angina pectoris

== ENCOUNTER 2018-10-30 19:51 | Emergency (ER) | payer MEDICAID ==
[2018-10-30 19:52] VITALS: BMI 31.4
--- NOTE | 2018-10-30 19:58 | C.PDOC ---
History Of Present Illness 58 year old male rolled himself into the waiting room looking for a place to stay. Has no medical complaints at this time. Time Seen by Provider: 10/30/18 19:54 History Per: Patient History/Exam Limitations: no limitations Involuntary Hold By: None Recent travel outside of the [place]: No Past Medical History Reviewed: Historical Data, Nursing Documentation, Vital Signs - Medical History PMH: Anxiety, Arthritis, Bronchitis, CAD, Depression, Diabetes (Pt. did not disclose to hand sign writer, not aware), Fractures (RIGHT ARM), Gastritis, Gall Bladder Disease (s/p cholecystectomy), HTN, Post Traumatic Stress Disorder, Rheumatoid Arthritis, Seizures, Chronic Pain Denies: Chronic Kidney Disease Surgical History: Cholecystectomy - [facility] Procedures ALCOHOL DETOXIFICATION (07/04/15) APPLICATION OF SPLINT (03/20/13) CLOSURE SKIN & SUBCUTANEOUS NEC (08/14/13) DETOXIFICATION SERVICES FOR SUBSTANCE ABUSE TREATMENT (03/22/16) ESOPHAGOGASTRODUODENOSCOPY [EGD] W/CLOSED BIOPSY (02/16/15) INSERTION OF ENDOTRACHEAL AIRWAY INTO TRACHEA, VIA OPENING (09/11/18) OTHER GROUP THERAPY (03/12/13) PHYSICAL THERAPY NEC (07/04/15) RESPIRATORY VENTILATION, 24-96 CONSECUTIVE HOURS (09/11/18) TETANUS TOXOID ADMINIST (01/19/14) Family History: States: Unknown Family Hx - Social History Hx Tobacco Use: No Hx Alcohol Use: Yes Hx Substance Use: No - Immunization History Hx Tetanus Toxoid Vaccination: No Hx Influenza Vaccination: Yes Hx Pneumococcal Vaccination: Yes Review Of Systems Constitutional: Negative for: Fever, Chills Cardiovascular: Negative for: Chest Pain, Palpitations Respiratory: Negative for: Cough, Shortness of Breath Gastrointestinal: Negative for: Nausea, Vomiting Physical Exam - Physical Exam Appears: Non-toxic, Other (Easily arousable) Skin: Normal Color, Warm, Dry Head: Atraumatic, Normacephalic Eye(s): bilateral: Normal Inspection Oral Mucosa: Moist Chest: Symmetrical, No Tenderness Cardiovascular: Rhythm Regular Respiratory: Normal Breath Sounds, No Rales, No Rhonchi, No Wheezing Gastrointestinal/Abdominal: Soft, No Tenderness Neurological/Psych: Oriented x3, Normal Speech Gait: Other (Uses wheelchair but able to ambulate) Medical Decision Making Medical Decision Making: typical alcohol abuse and malingering chronic leg pains Percocet needed, dangerous combination of alcoholism and Percocet- educated to avoid combining the two Disposition Doctor Will See Patient In The: Office Counseled Patient/Family Regarding: Studies Performed, Diagnosis - Disposition Referrals: Alcoholics Anonymous [Outside] [facility] [Outside] [facility] [Outside] [facility] [place] [Outside] [facility] [Outside] [facility] [Outside] Disposition: HOME/ ROUTINE Disposition Time: 19:57 Condition: GOOD Instructions: Alcohol Use - When Is Drinking a Problem?, Alcohol Abuse and Alcoholism (DC) - Clinical Impression Clinical Impression: Alcoholism /alcohol abuse - Scribe Statement The provider has reviewed the documentation as recorded by the Scribe Fabián Ramirez All medical record entries made by the Scribe were at my direction and personally dictated by me. I have reviewed the chart and agree that the record accurately reflects my personal performance of the history, physical exam, medical decision making, and the department course for this patient. I have also personally directed, reviewed, and agree with the discharge instructions and disposition.
== END 2018-10-30 20:30 | disposition left against medical advice (07) ==
LOC: C.ER 19:51
DX: Z02.89 Encounter for other administrative examinations (principal); F10.20 Alcohol dependence, uncomplicated

== ENCOUNTER 2018-10-31 20:20 | Emergency (ER) | payer MEDICAID ==
[2018-10-31 20:20] VITALS: BMI 31.4
--- NOTE | 2018-10-31 20:46 | C.PDOC ---
History Of Present Illness Patient presents to the ER with acute ETOH intoxication, requesting a place to spend the night. Denies any complaints at this time. Time Seen by Provider: 10/31/18 20:45 Chief Complaint (Nursing): Substance Abuse History Per: Patient History/Exam Limitations: no limitations Onset/Duration Of Symptoms: Hrs Current Symptoms Are (Timing): Still Present Suicide/Self Injury Attempted (Context): None Modifying Factor(s): Alcohol Severity: None Pain Scale Rating Of: 0 Associated Symptoms: denies: Depression, Suicidal Thoughts Involuntary Hold By: None Recent travel outside of the [place]: No Past Medical History Reviewed: Historical Data, Nursing Documentation, Vital Signs Vital Signs: Last Vital Signs Temp 97.6 F 10/31/18 20:40 Pulse 106 H 10/31/18 20:40 Resp 20 10/31/18 20:40 BP 177/136 H 10/31/18 20:40 Pulse Ox 100 10/31/18 20:40 - Medical History PMH: Anxiety, Arthritis, Bronchitis, CAD, Depression, Diabetes (Pt. did not disclose to com writer, not aware), Fractures (RIGHT ARM), Gastritis, Gall Bladder Disease (s/p cholecystectomy), HTN, Post Traumatic Stress Disorder, Rheumatoid Arthritis, Seizures, Chronic Pain Denies: Chronic Kidney Disease Surgical History: Cholecystectomy - [facility] Procedures ALCOHOL DETOXIFICATION (07/04/15) APPLICATION OF SPLINT (03/20/13) CLOSURE SKIN & SUBCUTANEOUS NEC (08/14/13) DETOXIFICATION SERVICES FOR SUBSTANCE ABUSE TREATMENT (03/22/16) ESOPHAGOGASTRODUODENOSCOPY [EGD] W/CLOSED BIOPSY (02/16/15) INSERTION OF ENDOTRACHEAL AIRWAY INTO TRACHEA, VIA OPENING (09/11/18) OTHER GROUP THERAPY (03/12/13) PHYSICAL THERAPY NEC (07/04/15) RESPIRATORY VENTILATION, 24-96 CONSECUTIVE HOURS (09/11/18) TETANUS TOXOID ADMINIST (01/19/14) Family History: States: No Known Family Hx - Social History Hx Tobacco Use: No Hx Alcohol Use: Yes Hx Substance Use: No - Immunization History Hx Tetanus Toxoid Vaccination: No Hx Influenza Vaccination: Yes Hx Pneumococcal Vaccination: Yes Review Of Systems Constitutional: Negative for: Fever, Chills Cardiovascular: Negative for: Chest Pain, Palpitations Respiratory: Negative for: Cough, Shortness of Breath Gastrointestinal: Negative for: Nausea, Vomiting Neurological: Negative for: Weakness, Numbness Physical Exam - Physical Exam Appears: Non-toxic, Other (ETOH on breath, no sign of injury) Skin: Warm, Dry Head: Normacephalic Oral Mucosa: Moist Chest: Symmetrical, No Tenderness Cardiovascular: Rhythm Regular Respiratory: No Rales, No Rhonchi, No Wheezing Gastrointestinal/Abdominal: Soft, No Tenderness Neurological/Psych: Oriented x3 ED Course And Treatment O2 Sat by Pulse Oximetry: 100 (Room air) Pulse Ox Interpretation: Normal Disposition Counseled Patient/Family Regarding: Studies Performed, Diagnosis - Disposition Referrals: [facility] [Outside] Disposition: ELOPEMENT - ER ONLY Disposition Time: 20:46 Condition: FAIR Instructions: Alcohol Abuse and Alcoholism (DC) Forms: [employer] (Faroese) - Clinical Impression Clinical Impression: Alcohol intoxication, Chronic alcoholism - Scribe Statement The provider has reviewed the documentation as recorded by the Scribe Fabián Ramirez All medical record entries made by the Scribe were at my direction and personally dictated by me. I have reviewed the chart and agree that the record accurately reflects my personal performance of the history, physical exam, medical decision making, and the department course for this patient. I have also personally directed, reviewed, and agree with the discharge instructions and disposition.
[2018-10-31 20:53] VITALS: BP 177/136; PULSE 106; RESP 20; TEMP 97.6; O2SAT 100
== END 2018-10-31 23:40 | disposition left against medical advice (07) ==
LOC: C.ER 20:20
DX: F10.229 Alcohol dependence with intoxication, unspecified (principal)

== ENCOUNTER 2018-11-01 00:56 | Emergency (ER) | payer MEDICAID ==
[2018-11-01 00:58] VITALS: BMI 31.4
--- NOTE | 2018-11-01 02:30 | C.PDOC ---
History Of Present Illness 58 year old male seen earlier for public intoxication and left at 2300 found in the bathroom by security sitting on the floor awake, alert, and orientedx3. At one point there was report of a seizure, however, there was no witness, when nurse evaluated patient he was not post ictal. Time Seen by Provider: 11/01/18 01:20 Chief Complaint (Nursing): Substance Abuse History Per: Patient History/Exam Limitations: no limitations Onset/Duration Of Symptoms: Hrs Current Symptoms Are (Timing): Still Present Involuntary Hold By: None Recent travel outside of the [place]: No Past Medical History Reviewed: Historical Data, Nursing Documentation, Vital Signs Vital Signs: Last Vital Signs Temp 98.2 F 11/01/18 01:10 Pulse 115 H 11/01/18 01:10 Resp 18 11/01/18 01:10 BP 141/72 11/01/18 01:10 Pulse Ox 96 11/01/18 01:10 - Medical History PMH: Anxiety, Arthritis, Bronchitis, CAD, Depression, Diabetes (Pt. did not disclose to marketing copywriter, not aware), Fractures (RIGHT ARM), Gastritis, Gall Bladder Disease (s/p cholecystectomy), HTN, Post Traumatic Stress Disorder, Rheumatoid Arthritis, Seizures, Chronic Pain Denies: Chronic Kidney Disease Surgical History: Cholecystectomy - [facility] Procedures ALCOHOL DETOXIFICATION (07/04/15) APPLICATION OF SPLINT (03/20/13) CLOSURE SKIN & SUBCUTANEOUS NEC (08/14/13) DETOXIFICATION SERVICES FOR SUBSTANCE ABUSE TREATMENT (03/22/16) ESOPHAGOGASTRODUODENOSCOPY [EGD] W/CLOSED BIOPSY (02/16/15) INSERTION OF ENDOTRACHEAL AIRWAY INTO TRACHEA, VIA OPENING (09/11/18) OTHER GROUP THERAPY (03/12/13) PHYSICAL THERAPY NEC (07/04/15) RESPIRATORY VENTILATION, 24-96 CONSECUTIVE HOURS (09/11/18) TETANUS TOXOID ADMINIST (01/19/14) Family History: States: Unknown Family Hx - Social History Hx Tobacco Use: No Hx Alcohol Use: Yes Hx Substance Use: No - Immunization History Hx Tetanus Toxoid Vaccination: No Hx Influenza Vaccination: Yes Hx Pneumococcal Vaccination: Yes Review Of Systems Constitutional: Negative for: Fever, Chills Eyes: Negative for: Pain, Redness ENT: Negative for: Mouth Swelling Cardiovascular: Negative for: Chest Pain Respiratory: Negative for: Cough, Shortness of Breath Gastrointestinal: Negative for: Nausea, Vomiting, Diarrhea Genitourinary: Negative for: Dysuria, Hematuria Musculoskeletal: Negative for: Back Pain Skin: Negative for: Rash Neurological: Negative for: Weakness, Numbness, Dizziness Physical Exam - Physical Exam Appears: Non-toxic, No Acute Distress, Other (No obvious sign of trauma) Skin: Normal Color, Warm Head: Atraumatic, Normacephalic Eye(s): bilateral: Normal Inspection, PERRL, EOMI Ear(s): Bilateral: Normal Nose: Normal Oral Mucosa: Moist Neck: Normal ROM, Supple Chest: Symmetrical Cardiovascular: Rhythm Regular (Tachy in 120s, as per nurse and chart trending patient usually runs in the 120s) Respiratory: No Accessory Muscle Use, Other (Normal inspiratory effort) Gastrointestinal/Abdominal: Soft, No Distention Extremity: Bilateral: Atraumatic Neurological/Psych: Oriented x3, Normal Speech, Normal Cranial Nerves (Grossly intact) ED Course And Treatment O2 Sat by Pulse Oximetry: 96 (room air) Pulse Ox Interpretation: Normal Medical Decision Making Medical Decision Making: Will allow to sleep until sober. Disposition Counseled Patient/Family Regarding: Diagnosis, Need For Followup - Disposition Disposition: HOME/ ROUTINE Disposition Time: 06:07 Condition: IMPROVED Instructions: Alcohol Abuse and Alcoholism (DC) Forms: [facility] (Tongan), General Discharge Instructions - Clinical Impression Clinical Impression: Alcohol intoxication - PA / [employer] / 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 - Scribe Statement The provider has reviewed the documentation as recorded by the Scribe Fabián Ramirez All medical record entries made by the Scribe were at my direction and personally dictated by me. I have reviewed the chart and agree that the record accurately reflects my personal performance of the history, physical exam, medical decision making, and the department course for this patient. I have also personally directed, reviewed, and agree with the discharge instructions and disposition.
[2018-11-01 04:44] VITALS: RESP 20
[2018-11-01 06:28] VITALS: BP 136/70; PULSE 71; TEMP 97.2; O2SAT 98
== END 2018-11-01 06:28 | disposition home or self-care (01) ==
LOC: C.ER 00:56
DX: F10.129 Alcohol abuse with intoxication, unspecified (principal); Y90.9 Presence of alcohol in blood, level not specified

== ENCOUNTER 2018-11-01 20:08 | Emergency (ER) | payer MEDICAID ==
[2018-11-01 20:09] VITALS: BMI 31.4
--- NOTE | 2018-11-01 20:24 | C.PDOC ---
History Of Present Illness 58 y/o male comes in on a wheelchair looking for a place to stay. Patient admits to alcohol use. Denies any physical complaints. Time Seen by Provider: 11/01/18 20:21 Chief Complaint (Nursing): Substance Abuse History Per: Patient History/Exam Limitations: no limitations Onset/Duration Of Symptoms: Days Current Symptoms Are (Timing): Still Present Past Medical History Reviewed: Historical Data, Nursing Documentation, Vital Signs - Medical History PMH: Anxiety, Arthritis, Bronchitis, CAD, Depression, Diabetes (Pt. 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 not disclose to designer writer, not aware), Fractures, Gastritis, Gall Bladder Disease (s/p cholecystectomy), HTN, Post Traumatic Stress Disorder, Rheumatoid Arthritis, Seizures, Chronic Pain Denies: Chronic Kidney Disease Surgical History: Cholecystectomy - [facility] Procedures ALCOHOL DETOXIFICATION (07/04/15) APPLICATION OF SPLINT (03/20/13) CLOSURE SKIN & SUBCUTANEOUS NEC (08/14/13) DETOXIFICATION SERVICES FOR SUBSTANCE ABUSE TREATMENT (03/22/16) ESOPHAGOGASTRODUODENOSCOPY [EGD] W/CLOSED BIOPSY (02/16/15) INSERTION OF ENDOTRACHEAL AIRWAY INTO TRACHEA, VIA OPENING (09/11/18) OTHER GROUP THERAPY (03/12/13) PHYSICAL THERAPY NEC (07/04/15) RESPIRATORY VENTILATION, 24-96 CONSECUTIVE HOURS (09/11/18) TETANUS TOXOID ADMINIST (01/19/14) Family History: States: No Known Family Hx - Social History Hx Tobacco Use: No Hx Alcohol Use: Yes Hx Substance Use: No - Immunization History Hx Tetanus Toxoid Vaccination: No Hx Influenza Vaccination: No Hx Pneumococcal Vaccination: No Review Of Systems Except As Marked, All Systems Reviewed And Found Negative. Constitutional: Negative for: Fever, Chills Cardiovascular: Negative for: Chest Pain Respiratory: Negative for: Shortness of Breath Gastrointestinal: Negative for: Abdominal Pain Skin: Negative for: Rash Psych: Positive for: Other (alcohol use) Physical Exam - Physical Exam Appears: Non-toxic, No Acute Distress Skin: Warm, Dry Head: Atraumatic, Normacephalic Eye(s): bilateral: Normal Inspection Oral Mucosa: Moist Neck: Supple Chest: Symmetrical Cardiovascular: Rhythm Regular, No Murmur Respiratory: Normal Breath Sounds, No Rales, No Rhonchi, No Wheezing Gastrointestinal/Abdominal: Soft, No Tenderness Extremity: Bilateral: Atraumatic, Normal Color And Temperature, Normal ROM Neurological/Psych: Oriented x3, Normal Speech Gait: Steady ED Course And Treatment O2 Sat by Pulse Oximetry: 98 (RA) Pulse Ox Interpretation: Normal Medical Decision Making Medical Decision Making: Plan: --labs typical alcohol abuse and looking for a place to stay Daily ED visits for same no acute injuries fully mobile in his wheelchair ok for d/c verbalized understanding to go to [place] tonight due to cold weather. has money in his pocked for alcohol and taxi- suggested to use for a motel overnight- verbalized understanding. Disposition Doctor Will See Patient In The: Office Counseled Patient/Family Regarding: Studies Performed, Diagnosis - Disposition Referrals: Alcoholics Anonymous [Outside] [facility] [Outside] [employer] [facility] [employer] [place] [Outside] [facility] [Outside] [facility] [employer] [Outside] Disposition: HOME/ ROUTINE Disposition Time: 20:23 Condition: GOOD Additional Instructions: seek AA Seek nightly skilled nursing placement- particularly in these very cold weather nights. Forms: [facility] (Turkmen) - Clinical Impression Clinical Impression: Alcohol abuse - Scribe Statement The provider has reviewed the documentation as recorded by the Jada Bullock Provider Attestation: All medical record entries made by the Rominaibe were at my direction and personally dictated by me. I have reviewed the chart and agree that the record accurately reflects my personal performance of the history, physical exam, medical decision making, and the department course for this patient. I have also personally directed, reviewed, and agree with the discharge instructions and disposition.
[2018-11-01 21:36] VITALS: BP 136/79; PULSE 78; RESP 18; TEMP 98; O2SAT 98
== END 2018-11-01 21:36 | disposition home or self-care (01) ==
LOC: C.ER 20:08
DX: F10.10 Alcohol abuse, uncomplicated (principal); Y90.9 Presence of alcohol in blood, level not specified

== ENCOUNTER 2018-11-02 00:26 | Emergency (ER) | payer MEDICAID ==
[2018-11-02 00:26] VITALS: BMI 31.4
[2018-11-02 00:36] VITALS: TEMP 98.7; O2SAT 97
--- NOTE | 2018-11-02 00:36 | C.PDOC ---
History Of Present Illness 58 year old male presents to the ED requesting for a place to spend the night. Patient admits to drinking alcohol today. Patient denies SI/HI, hallucinations, injury, fall, trauma. Time Seen by Provider: 11/02/18 00:35 Chief Complaint (Nursing): Substance Abuse History Per: Patient History/Exam Limitations: intoxication Onset/Duration Of Symptoms: Hrs Current Symptoms Are (Timing): Still Present Suicide/Self Injury Attempted (Context): None Modifying Factor(s): Alcohol Associated Symptoms: denies: Depression, Suicidal Thoughts, Suicidal Plan Recent travel outside of the [place]: No Additional History Per: Patient Past Medical History Reviewed: Historical Data, Nursing Documentation, Vital Signs Vital Signs: Last Vital Signs Temp 98.7 F 11/02/18 00:29 Pulse 121 H 11/02/18 00:29 Resp 16 11/02/18 00:29 BP 139/78 11/02/18 00:29 Pulse Ox 97 11/02/18 00:29 - Medical History PMH: Anxiety, Arthritis, Bronchitis, CAD, Depression, Diabetes (Pt. did not disclose to policy writer, not aware), Fractures, Gastritis, Gall Bladder Disease (s/p cholecystectomy), HTN, Post Traumatic Stress Disorder, Rheumatoid Arthritis, Seizures, Chronic Pain Denies: Chronic Kidney Disease Surgical History: Cholecystectomy - [facility] Procedures ALCOHOL DETOXIFICATION (07/04/15) APPLICATION OF SPLINT (03/20/13) CLOSURE SKIN & SUBCUTANEOUS NEC (08/14/13) DETOXIFICATION SERVICES FOR SUBSTANCE ABUSE TREATMENT (03/22/16) ESOPHAGOGASTRODUODENOSCOPY [EGD] W/CLOSED BIOPSY (02/16/15) INSERTION OF ENDOTRACHEAL AIRWAY INTO TRACHEA, VIA OPENING (09/11/18) OTHER GROUP THERAPY (03/12/13) PHYSICAL THERAPY NEC (07/04/15) RESPIRATORY VENTILATION, 24-96 CONSECUTIVE HOURS (09/11/18) TETANUS TOXOID ADMINIST (01/19/14) Family History: States: Unknown Family Hx - Social History Hx Tobacco Use: No Hx Alcohol Use: Yes Hx Substance Use: No - Immunization History Hx Tetanus Toxoid Vaccination: No Hx Influenza Vaccination: No Hx Pneumococcal Vaccination: No Review Of Systems Constitutional: Negative for: Fever, Chills Eyes: Negative for: Vision Change Cardiovascular: Negative for: Chest Pain Respiratory: Negative for: Shortness of Breath Gastrointestinal: Negative for: Nausea, Vomiting, Abdominal Pain Psych: Negative for: Depression, Suicidal ideation Physical Exam - Physical Exam Appears: Non-toxic, No Acute Distress, Unkempt Skin: Warm, Dry Head: Normacephalic Eye(s): bilateral: Normal Inspection Neck: Supple Chest: Symmetrical Cardiovascular: Rhythm Regular Respiratory: No Rales, No Rhonchi, No Wheezing Gastrointestinal/Abdominal: Soft, No Tenderness, No Guarding, No Rebound Extremity: Bilateral: Atraumatic, Normal Color And Temperature, Normal ROM Neurological/Psych: Oriented x3, Normal Speech, Normal Cognition Gait: With Assistance (wheelchair) ED Course And Treatment O2 Sat by Pulse Oximetry: 97 (On RA) Pulse Ox Interpretation: Normal Reevaluation Time: 05:30 Reassessment Condition: Improved Disposition Counseled Patient/Family Regarding: Studies Performed, Diagnosis, Need For Followup - Disposition Referrals: [facility] [Outside] Disposition: HOME/ ROUTINE Disposition Time: 00:36 Condition: FAIR Forms: [facility] (Swedish), General Discharge Instructions - Clinical Impression Clinical Impression: Alcoholism /alcohol abuse - Scribe Statement The provider has reviewed the documentation as recorded by the Scribe Woo Brown All medical record entries made by the Scribe were at my direction and personally dictated by me. I have reviewed the chart and agree that the record accurately reflects my personal performance of the history, physical exam, medical decision making, and the department course for this patient. I have also personally directed, reviewed, and agree with the discharge instructions and disposition.
[2018-11-02 06:44] VITALS: RESP 18
[2018-11-02 06:48] VITALS: BP 126/78; PULSE 94
== END 2018-11-02 05:30 | disposition home or self-care (01) ==
LOC: C.ER 00:26
DX: F10.229 Alcohol dependence with intoxication, unspecified (principal)

== ENCOUNTER 2018-11-02 18:08 | Emergency (ER) | payer MEDICAID ==
[2018-11-02 18:10] VITALS: BMI 31.4
[2018-11-02 18:29] VITALS: BP 106/79; PULSE 76; RESP 18; TEMP 98; O2SAT 100
--- NOTE | 2018-11-02 18:52 | C.PDOC ---
History Of Present Illness 58 year old male with history of homelessness and alcohol abuse presents to the ED complaining of cold weather and requesting a place to stay. Reports he did not realize cold it is outside. Patient has daily ED visits for similar presentations. Time Seen by Provider: 11/02/18 18:46 Chief Complaint (Nursing): Medical Clearance History Per: Patient History/Exam Limitations: no limitations Onset/Duration Of Symptoms: Mins Current Symptoms Are (Timing): Still Present Reports Recently: Seen In ED Past Medical History Reviewed: Historical Data, Nursing Documentation, Vital Signs Vital Signs: Last Vital Signs Temp 98.0 F 11/02/18 18:26 Pulse 76 11/02/18 18:26 Resp 18 11/02/18 18:26 BP 106/79 11/02/18 18:26 Pulse Ox 100 11/02/18 18:26 - Medical History PMH: Anxiety, Arthritis, Bronchitis, CAD, Depression, 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 aware), Fractures, Gastritis, Gall Bladder Disease (s/p cholecystectomy), HTN, Post Traumatic Stress Disorder, Rheumatoid Arthritis, Seizures, Chronic Pain Denies: Chronic Kidney Disease Surgical History: Cholecystectomy - [facility] Procedures ALCOHOL DETOXIFICATION (07/04/15) APPLICATION OF SPLINT (03/20/13) CLOSURE SKIN & SUBCUTANEOUS NEC (08/14/13) DETOXIFICATION SERVICES FOR SUBSTANCE ABUSE TREATMENT (03/22/16) ESOPHAGOGASTRODUODENOSCOPY [EGD] W/CLOSED BIOPSY (02/16/15) INSERTION OF ENDOTRACHEAL AIRWAY INTO TRACHEA, VIA OPENING (09/11/18) OTHER GROUP THERAPY (03/12/13) PHYSICAL THERAPY NEC (07/04/15) RESPIRATORY VENTILATION, 24-96 CONSECUTIVE HOURS (09/11/18) TETANUS TOXOID ADMINIST (01/19/14) Family History: States: No Known Family Hx - Social History Hx Tobacco Use: No Hx Alcohol Use: Yes Hx Substance Use: No - Immunization History Hx Tetanus Toxoid Vaccination: No Hx Influenza Vaccination: No Hx Pneumococcal Vaccination: No Review Of Systems Except As Marked, All Systems Reviewed And Found Negative. Constitutional: Negative for: Fever, Chills Cardiovascular: Negative for: Chest Pain Respiratory: Negative for: Shortness of Breath Gastrointestinal: Negative for: Nausea, Vomiting, Abdominal Pain, Diarrhea Psych: Negative for: Suicidal ideation Physical Exam - Physical Exam Appears: Non-toxic, No Acute Distress Skin: Warm, Dry, No Rash Head: Normacephalic Eye(s): bilateral: Normal Inspection Nose: Normal Oral Mucosa: Moist Neck: Supple Chest: Symmetrical Cardiovascular: Rhythm Regular Respiratory: No Rales, No Rhonchi, No Wheezing, Other (CTA B/L) Gastrointestinal/Abdominal: Soft, No Tenderness Neurological/Psych: Oriented x3, Normal Speech Gait: With Assistance (wheelchair) ED Course And Treatment O2 Sat by Pulse Oximetry: 100 (RA) Pulse Ox Interpretation: Normal Medical Decision Making Medical Decision Making: As per triage nurse, patient noted to be sitting in waiting room since 0700 this morning without complaint or distress. Upon realizing temperature outside, patient requested to be ED evaluated. Disposition Counseled Patient/Family Regarding: Diagnosis - Disposition [facility]errals: [facility] [[facility]] [facility] [Outside] Disposition: HOME/ ROUTINE Disposition Time: 18:50 Condition: GOOD Forms: General Discharge Instructions - Clinical Impression Clinical Impression: Chronic leg pain, Malingering - Scribe Statement The provider has reviewed the documentation as recorded by the Rominaibjosé miguel Sousa All medical record entries made by the Rominaibjosé miguel were at my direction and personally dictated by me. I have reviewed the chart and agree that the record accurately reflects my personal performance of the history, physical exam, medical decision making, and the department course for this patient. I have also personally directed, reviewed, and agree with the discharge instructions and disposition.
== END 2018-11-02 19:48 | disposition home or self-care (01) ==
LOC: C.ER 18:08
DX: M79.606 Pain in leg, unspecified (principal); G89.29 Other chronic pain; Z76.5 Malingerer [conscious simulation]; Z59.0 Homelessness

== ENCOUNTER 2018-11-03 00:49 | Emergency (ER) | payer MEDICAID ==
[2018-11-03 00:51] VITALS: BMI 31.4
--- NOTE | 2018-11-03 00:59 | C.PDOC ---
History Of Present Illness 58 year old male presents to the ED requesting for a place to spend the night. Patient is well known to the ED with multiple visits for same presentation. Patient admits to drinking alcohol today. Patient denies SI/HI, hallucinations, injury, fall, trauma. Chief Complaint (Nursing): Medical Clearance History Per: Patient History/Exam Limitations: intoxication Onset/Duration Of Symptoms: Hrs Current Symptoms Are (Timing): Still Present Recent travel outside of the [place]: No Additional History Per: Patient Past Medical History Reviewed: Historical Data, Nursing Documentation, Vital Signs - Medical History PMH: Anxiety, Arthritis, Bronchitis, CAD, Depression, Diabetes (Pt. 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, not aware), Fractures, Gastritis, Gall Bladder Disease (s/p cholecystectomy), HTN, Post Traumatic Stress Disorder, Rheumatoid Arthritis, Seizures, Chronic Pain Denies: Chronic Kidney Disease Surgical History: Cholecystectomy - [facility] Procedures ALCOHOL DETOXIFICATION (07/04/15) APPLICATION OF SPLINT (03/20/13) CLOSURE SKIN & SUBCUTANEOUS NEC (08/14/13) DETOXIFICATION SERVICES FOR SUBSTANCE ABUSE TREATMENT (03/22/16) ESOPHAGOGASTRODUODENOSCOPY [EGD] W/CLOSED BIOPSY (02/16/15) INSERTION OF ENDOTRACHEAL AIRWAY INTO TRACHEA, VIA OPENING (09/11/18) OTHER GROUP THERAPY (03/12/13) PHYSICAL THERAPY NEC (07/04/15) RESPIRATORY VENTILATION, 24-96 CONSECUTIVE HOURS (09/11/18) TETANUS TOXOID ADMINIST (01/19/14) Family History: States: Unknown Family Hx - Social History Hx Tobacco Use: No Hx Alcohol Use: Yes Hx Substance Use: No - Immunization History Hx Tetanus Toxoid Vaccination: No Hx Influenza Vaccination: No Hx Pneumococcal Vaccination: No Review Of Systems Constitutional: Negative for: Fever, Chills Cardiovascular: Negative for: Chest Pain, Palpitations Respiratory: Negative for: Shortness of Breath Gastrointestinal: Negative for: Nausea, Vomiting, Abdominal Pain Skin: Negative for: Rash Psych: Negative for: Depression, Suicidal ideation Physical Exam - Physical Exam Appears: Non-toxic, No Acute Distress Skin: Normal Color, Warm, Dry Head: Atraumatic, Normacephalic Eye(s): bilateral: Normal Inspection Neck: Normal ROM, Supple Chest: Symmetrical Cardiovascular: Rhythm Regular Respiratory: Normal Breath Sounds, No Rales, No Rhonchi, No Wheezing Gastrointestinal/Abdominal: Soft, No Tenderness, No Guarding, No Rebound Extremity: Normal ROM, No Tenderness, No Swelling Neurological/Psych: Oriented x3, Normal Speech, Normal Cognition Gait: With Assistance (wheelchair) ED Course And Treatment Pulse Ox Interpretation: Normal Disposition - Disposition Disposition: HOME/ ROUTINE Disposition Time: 05:44 Condition: STABLE Forms: [facility] (Ghanaian) - Clinical Impression Clinical Impression: Alcohol abuse with intoxication - Scribe Statement The provider has reviewed the documentation as recorded by the Scribjosé miguel Brown All medical record entries made by the Scribe were at my direction and personally dictated by me. I have reviewed the chart and agree that the record accurately reflects my personal performance of the history, physical exam, medical decision making, and the department course for this patient. I have also personally directed, reviewed, and agree with the discharge instructions and disposition.
[2018-11-03 06:27] VITALS: BP 154/72; PULSE 79; RESP 19; TEMP 97.6; O2SAT 98
== END 2018-11-03 06:26 | disposition home or self-care (01) ==
LOC: C.ER 00:49 → SUPCPDRO 00:49 → C.ER 06:26
DX: F10.129 Alcohol abuse with intoxication, unspecified (principal); Y90.9 Presence of alcohol in blood, level not specified

== ENCOUNTER 2018-11-03 19:41 | Emergency (ER) | payer MEDICAID ==
[2018-11-03 19:42] VITALS: BMI 31.4
[2018-11-03 20:23] VITALS: BP 152/91; PULSE 101; RESP 22; TEMP 97.6; O2SAT 98
--- NOTE | 2018-11-03 21:09 | C.PDOC ---
History Of Present Illness 58 year old male presents to the ED requesting for a place to stay. Patient admits to drinking alcohol today. Patient is well known to the ED for same presentation. Patient denies SI/HI, hallucinations, injury, fall, trauma. Time Seen by Provider: 11/03/18 20:54 Chief Complaint (Nursing): Substance Abuse History Per: Patient History/Exam Limitations: intoxication Onset/Duration Of Symptoms: Hrs Current Symptoms Are (Timing): Still Present Suicide/Self Injury Attempted (Context): None Modifying Factor(s): Alcohol Associated Symptoms: denies: Depression, Suicidal Thoughts, Suicidal Plan Recent travel outside of the [place]: No Additional History Per: Patient Past Medical History Reviewed: Historical Data, Nursing Documentation, Vital Signs Vital Signs: Last Vital Signs Temp 97.6 F 11/03/18 20:20 Pulse 101 H 11/03/18 20:20 Resp 22 11/03/18 20:20 BP 152/91 H 11/03/18 20:20 Pulse Ox 98 11/03/18 20:20 - Medical History PMH: Anxiety, Arthritis, Bronchitis, CAD, Depression, Diabetes (Pt. did not disclose to scientific writer, not aware), Fractures, Gastritis, Gall Bladder Disease (s/p cholecystectomy), HTN, Post Traumatic Stress Disorder, Rheumatoid Arthritis, Seizures, Chronic Pain Denies: Chronic Kidney Disease Surgical History: Cholecystectomy - [facility] Procedures ALCOHOL DETOXIFICATION (07/04/15) APPLICATION OF SPLINT (03/20/13) CLOSURE SKIN & SUBCUTANEOUS NEC (08/14/13) DETOXIFICATION SERVICES FOR SUBSTANCE ABUSE TREATMENT (03/22/16) ESOPHAGOGASTRODUODENOSCOPY [EGD] W/CLOSED BIOPSY (02/16/15) INSERTION OF ENDOTRACHEAL AIRWAY INTO TRACHEA, VIA OPENING (09/11/18) OTHER GROUP THERAPY (03/12/13) PHYSICAL THERAPY NEC (07/04/15) RESPIRATORY VENTILATION, 24-96 CONSECUTIVE HOURS (09/11/18) TETANUS TOXOID ADMINIST (01/19/14) Family History: States: Unknown Family Hx - Social History Hx Tobacco Use: No Hx Alcohol Use: Yes Hx Substance Use: No - Immunization History Hx Tetanus Toxoid Vaccination: No Hx Influenza Vaccination: No Hx Pneumococcal Vaccination: No Review Of Systems Constitutional: Negative for: Fever, Chills Cardiovascular: Negative for: Chest Pain Respiratory: Negative for: Shortness of Breath Gastrointestinal: Negative for: Nausea, Vomiting, Abdominal Pain Skin: Negative for: Rash Psych: Negative for: Depression, Suicidal ideation Physical Exam - Physical Exam Appears: Non-toxic, No Acute Distress, Unkempt Skin: Normal Color, Warm, Dry Head: Atraumatic, Normacephalic Eye(s): bilateral: Normal Inspection Neck: Normal ROM, Supple Chest: Symmetrical Cardiovascular: Rhythm Regular Respiratory: Normal Breath Sounds, No Rales, No Rhonchi, No Wheezing Gastrointestinal/Abdominal: Soft, No Tenderness, No Guarding, No Rebound Extremity: Normal ROM, No Tenderness, No Swelling Neurological/Psych: Oriented x3, Normal Speech, Normal Cognition Gait: Steady ED Course And Treatment O2 Sat by Pulse Oximetry: 98 (ON RA) Pulse Ox Interpretation: Normal Medical Decision Making Medical Decision Making: typical alcohol abuse looking for a place to stay (as usual) no hypothermia ok to go to detention Disposition Doctor Will See Patient In The: Office Counseled Patient/Family Regarding: Studies Performed, Diagnosis - Disposition Referrals: Alcoholics Anonymous [Outside] [facility] [Outside] [facility] [Outside] [facility] [Outside] [facility] [Outside] [facility] [Outside] Disposition: HOME/ ROUTINE Disposition Time: 21:09 Condition: GOOD Additional Instructions: seek nightly detention placement seek AA Instructions: Alcohol Abuse and Alcoholism (DC) Forms: [employer] (Yoruba) - Clinical Impression Clinical Impression: Chronic alcoholism - Scribe Statement The provider has reviewed the documentation as recorded by the Scribe Woo Brown All medical record entries made by the Scribe were at my direction and personally dictated by me. I have reviewed the chart and agree that the record accurately reflects my personal performance of the history, physical exam, medical decision making, and the department course for this patient. I have also personally directed, reviewed, and agree with the discharge instructions and disposition.
== END 2018-11-03 21:39 | disposition home or self-care (01) ==
LOC: C.ER 19:41
DX: F10.20 Alcohol dependence, uncomplicated (principal); Y90.9 Presence of alcohol in blood, level not specified

== ENCOUNTER 2018-11-03 23:15 | Emergency (ER) | payer MEDICAID ==
[2018-11-03 23:15] VITALS: BMI 31.4
[2018-11-03 23:23] VITALS: O2SAT 98
--- NOTE | 2018-11-04 00:06 | C.PDOC ---
History Of Present Illness 58 year old male presents to the ED requesting for a place to spend the night. Patient admits to drinking alcohol today. Patient denies SI/HI, hallucinations, injury, fall, trauma, weakness, numbness. Time Seen by Provider: 11/04/18 00:04 Chief Complaint (Nursing): Substance Abuse History Per: Patient History/Exam Limitations: intoxication Onset/Duration Of Symptoms: Hrs Current Symptoms Are (Timing): Still Present Suicide/Self Injury Attempted (Context): None Modifying Factor(s): Alcohol Associated Symptoms: denies: Depression, Suicidal Thoughts, Suicidal Plan Recent travel outside of the [place]: No Additional History Per: Patient Past Medical History Reviewed: Historical Data, Nursing Documentation, Vital Signs Vital Signs: Last Vital Signs Temp 98.3 F 11/03/18 23:20 Pulse 100 H 11/03/18 23:20 Resp 22 11/03/18 23:20 BP 142/80 11/03/18 23:20 Pulse Ox 98 11/03/18 23:20 - Medical History PMH: Anxiety, Arthritis, Bronchitis, CAD, Depression, Diabetes (Pt. did not disclose to lyric writer, not aware), Fractures, Gastritis, Gall Bladder Disease (s/p cholecystectomy), HTN, Post Traumatic Stress Disorder, Rheumatoid Arthritis, Seizures, Chronic Pain Denies: Chronic Kidney Disease Surgical History: Cholecystectomy - [facility] Procedures ALCOHOL DETOXIFICATION (07/04/15) APPLICATION OF SPLINT (03/20/13) CLOSURE SKIN & SUBCUTANEOUS NEC (08/14/13) DETOXIFICATION SERVICES FOR SUBSTANCE ABUSE TREATMENT (03/22/16) ESOPHAGOGASTRODUODENOSCOPY [EGD] W/CLOSED BIOPSY (02/16/15) INSERTION OF ENDOTRACHEAL AIRWAY INTO TRACHEA, VIA OPENING (09/11/18) OTHER GROUP THERAPY (03/12/13) PHYSICAL THERAPY NEC (07/04/15) RESPIRATORY VENTILATION, 24-96 CONSECUTIVE HOURS (09/11/18) TETANUS TOXOID ADMINIST (01/19/14) Family History: States: Unknown Family Hx - Social History Hx Tobacco Use: No Hx Alcohol Use: Yes Hx Substance Use: No - Immunization History Hx Tetanus Toxoid Vaccination: No Hx Influenza Vaccination: No Hx Pneumococcal Vaccination: No Review Of Systems Constitutional: Negative for: Fever, Chills Eyes: Negative for: Vision Change Cardiovascular: Negative for: Chest Pain Respiratory: Negative for: Shortness of Breath Gastrointestinal: Negative for: Vomiting, Abdominal Pain Skin: Negative for: Rash Psych: Negative for: Depression, Suicidal ideation Physical Exam - Physical Exam Appears: Non-toxic, No Acute Distress Skin: Warm, Dry Head: Normacephalic Eye(s): bilateral: Normal Inspection Neck: Supple Chest: Symmetrical Cardiovascular: Rhythm Regular Respiratory: No Rales, No Rhonchi, No Wheezing Gastrointestinal/Abdominal: Soft, No Tenderness, No Guarding, No Rebound Extremity: Bilateral: Atraumatic, Normal Color And Temperature, Normal ROM Neurological/Psych: Oriented x3, Normal Speech, Normal Cognition Gait: With Assistance (wheelchair) ED Course And Treatment O2 Sat by Pulse Oximetry: 98 (ON RA) Pulse Ox Interpretation: Normal Reevaluation Time: 05:29 Reassessment Condition: Improved Disposition Counseled Patient/Family Regarding: Studies Performed, Diagnosis, Need For Followup - Disposition Referrals: [facility] [Outside] Disposition: HOME/ ROUTINE Disposition Time: 00:05 Condition: FAIR Instructions: Alcohol Abuse and Alcoholism (DC) Forms: [employer] (Czech) - Clinical Impression Clinical Impression: Chronic alcoholism, Alcohol intoxication - Scribe Statement The provider has reviewed the documentation as recorded by the Scribe Woo Brown All medical record entries made by the Scribe were at my direction and personally dictated by me. I have reviewed the chart and agree that the record accurately reflects my personal performance of the history, physical exam, medical decision making, and the department course for this patient. I have also personally directed, reviewed, and agree with the discharge instructions and disposition.
[2018-11-04 05:45] VITALS: BP 128/89; PULSE 74; RESP 17; TEMP 98
== END 2018-11-04 05:43 | disposition home or self-care (01) ==
LOC: C.ER 23:15
DX: F10.229 Alcohol dependence with intoxication, unspecified (principal); Y90.9 Presence of alcohol in blood, level not specified

== ENCOUNTER 2018-11-04 18:50 | Emergency (ER) | payer MEDICAID ==
[2018-11-04 18:50] VITALS: BMI 31.4
--- NOTE | 2018-11-04 19:30 | C.PDOC ---
History Of Present Illness The patient presents to the ED requesting for a place to spend the night. Patient admits to drinking alcohol today. Patient denies SI/HI, hallucinations, injury, fall, trauma, weakness, numbness. Time Seen by Provider: 11/04/18 19:29 Chief Complaint (Nursing): Lower Extremity Problem/Injury History Per: Patient History/Exam Limitations: no limitations Onset/Duration Of Symptoms: Hrs Current Symptoms Are (Timing): Still Present Severity: None Pain Scale Rating Of: 0 Recent travel outside of the [place]: No Additional History Per: Patient Past Medical History - Medical History PMH: Anxiety, Arthritis, Bronchitis, CAD, Depression, Diabetes (Pt. did not disclose to writer producer, not aware), Fractures, Gastritis, Gall Bladder Disease (s/p cholecystectomy), HTN, Post Traumatic Stress Disorder, Rheumatoid Arthritis, Seizures, Chronic Pain Denies: Chronic Kidney Disease Surgical History: Cholecystectomy - [facility] Procedures ALCOHOL DETOXIFICATION (07/04/15) APPLICATION OF SPLINT (03/20/13) CLOSURE SKIN & SUBCUTANEOUS NEC (08/14/13) DETOXIFICATION SERVICES FOR SUBSTANCE ABUSE TREATMENT (03/22/16) ESOPHAGOGASTRODUODENOSCOPY [EGD] W/CLOSED BIOPSY (02/16/15) INSERTION OF ENDOTRACHEAL AIRWAY INTO TRACHEA, VIA OPENING (09/11/18) OTHER GROUP THERAPY (03/12/13) PHYSICAL THERAPY NEC (07/04/15) RESPIRATORY VENTILATION, 24-96 CONSECUTIVE HOURS (09/11/18) TETANUS TOXOID ADMINIST (01/19/14) Family History: States: Unknown Family Hx - Social History Hx Tobacco Use: No Hx Alcohol Use: Yes Hx Substance Use: No - Immunization History Hx Tetanus Toxoid Vaccination: No Hx Influenza Vaccination: No Hx Pneumococcal Vaccination: No ED Course And Treatment O2 Sat by Pulse Oximetry: 98 (on RA) Pulse Ox Interpretation: Normal Disposition Counseled Patient/Family Regarding: Studies Performed, Diagnosis, Need For Followup - Disposition Referrals: [facility] [Outside] Disposition: HOME/ ROUTINE Disposition Time: 19:29 Condition: FAIR Instructions: Alcohol Abuse and Alcoholism (DC) Forms: [employer] (Cymro) - Clinical Impression Clinical Impression: Alcohol intoxication, Chronic alcoholism - Scribe Statement The provider has reviewed the documentation as recorded by the Scribe (Kari Leon tel) Provider Attestation: All medical record entries made by the Scribe were at my direction and personally dictated by me. I have reviewed the chart and agree that the record accurately reflects my personal performance of the history, physical exam, medical decision making, and the department course for this patient. I have also personally directed, reviewed, and agree with the discharge instructions and disposition.
--- NOTE | 2018-11-04 20:01 | C.PDOC ---
History Of Present Illness The patient presents to the ED requesting for a place to spend the night. Patient admits to drinking alcohol today. Patient denies SI/HI, hallucinations, injury, fall, trauma, weakness, numbness. Time Seen by Provider: 11/04/18 19:29 Chief Complaint (Nursing): Lower Extremity Problem/Injury History Per: Patient History/Exam Limitations: intoxication Onset/Duration Of Symptoms: Hrs Current Symptoms Are (Timing): Still Present Suicide/Self Injury Attempted (Context): None Modifying Factor(s): None Severity: None Pain Scale Rating Of: 0 Associated Symptoms: denies: Suicidal Thoughts, Suicidal Plan Involuntary Hold By: None Recent travel outside of the [place]: No Additional History Per: Patient Past Medical History Reviewed: Historical Data, Nursing Documentation, Vital Signs Vital Signs: Last Vital Signs Temp 97.8 F 11/04/18 19:27 Pulse 92 H 11/04/18 19:27 Resp 18 11/04/18 19:27 BP 119/81 11/04/18 19:27 Pulse Ox 98 11/04/18 19:27 - Medical History PMH: Anxiety, Arthritis, Bronchitis, CAD, Depression, Diabetes (Pt. did not disclose to lyric writer, not aware), Fractures, Gastritis, Gall Bladder Disease (s/p cholecystectomy), HTN, Post Traumatic Stress Disorder, Rheumatoid Arthritis, Seizures, Chronic Pain Denies: Chronic Kidney Disease Surgical History: Cholecystectomy - [facility] Procedures ALCOHOL DETOXIFICATION (07/04/15) APPLICATION OF SPLINT (03/20/13) CLOSURE SKIN & SUBCUTANEOUS NEC (08/14/13) DETOXIFICATION SERVICES FOR SUBSTANCE ABUSE TREATMENT (03/22/16) ESOPHAGOGASTRODUODENOSCOPY [EGD] W/CLOSED BIOPSY (02/16/15) INSERTION OF ENDOTRACHEAL AIRWAY INTO TRACHEA, VIA OPENING (09/11/18) OTHER GROUP THERAPY (03/12/13) PHYSICAL THERAPY NEC (07/04/15) RESPIRATORY VENTILATION, 24-96 CONSECUTIVE HOURS (09/11/18) TETANUS TOXOID ADMINIST (01/19/14) Family History: States: Unknown Family Hx - Social History Hx Tobacco Use: No Hx Alcohol Use: Yes Hx Substance Use: No - Immunization History Hx Tetanus Toxoid Vaccination: No Hx Influenza Vaccination: No Hx Pneumococcal Vaccination: No Review Of Systems Constitutional: Negative for: Fever, Chills Cardiovascular: Negative for: Chest Pain, Palpitations Respiratory: Negative for: Cough, Shortness of Breath Gastrointestinal: Negative for: Nausea, Vomiting, Abdominal Pain Skin: Negative for: Rash, Lesions, Jaundice, Bruising Psych: Positive for: Other (EtOH intoxication ). Negative for: Suicidal ideation Physical Exam - Physical Exam Appears: Non-toxic, No Acute Distress Skin: Warm, Dry Head: Normacephalic Eye(s): bilateral: Normal Inspection Oral Mucosa: Moist, Other (alcohol on breath ) Neck: Supple Chest: Symmetrical Cardiovascular: Rhythm Regular Respiratory: No Rales, No Rhonchi, No Wheezing Gastrointestinal/Abdominal: Soft, No Tenderness, No Guarding Extremity: Normal ROM Neurological/Psych: Other (arousable to touch and verbal stimuli ) Gait: With Assistance (wheelchair) ED Course And Treatment O2 Sat by Pulse Oximetry: 98 (on RA ) Pulse Ox Interpretation: Normal Reevaluation Time: 05:25 Reassessment Condition: Improved Disposition - Disposition Referrals: [facility] [Outside] Disposition: HOME/ ROUTINE Disposition Time: 19:29 Condition: FAIR Instructions: Alcohol Abuse and Alcoholism (DC) Forms: [facility] (Jamaican) - Clinical Impression Clinical Impression: Alcohol intoxication, Chronic alcoholism
[2018-11-05 06:23] VITALS: BP 130/89; PULSE 91; RESP 20; TEMP 98.3; O2SAT 100
== END 2018-11-05 06:24 | disposition home or self-care (01) ==
LOC: C.ER 18:50
DX: F10.229 Alcohol dependence with intoxication, unspecified (principal)

== ENCOUNTER 2018-11-05 18:43 | Emergency (ER) | payer MEDICAID ==
[2018-11-05 18:54] VITALS: BMI 27.1
[2018-11-05] MEDS ORDERED: Bacitracin 500 Units/gm Oint Foilpak UD TOP ONE (19:18)
--- NOTE | 2018-11-05 19:20 | C.PDOC ---
History Of Present Illness 58 year old male presents to the ER after having two witnessed seizures outside. Denies chest pain, SOB, nausea, or vomiting. Chief Complaint (Nursing): Seizure History Per: Patient, EMS History/Exam Limitations: no limitations Recent Seizure Activity Began: Unknown Number Of Seizures: Multiple Length Of Seizures (Duration): Minutes (1) Quality Of Seizure: Generalized Precipitating Factor(s): Other (Not known) Post-ictal Period: Yes Recent travel outside of the [place]: No Past Medical History Reviewed: Historical Data, Nursing Documentation, Vital Signs Vital Signs: Last Vital Signs Temp 97.4 F L 11/05/18 19:03 Pulse 90 11/05/18 18:59 Resp 20 11/05/18 18:59 BP 124/82 11/05/18 18:59 Pulse Ox 95 11/05/18 18:59 - Medical History PMH: Anxiety, Arthritis, Bronchitis, CAD, Depression, Diabetes (Pt. 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 writer, not aware), Fractures, Gastritis, Gall Bladder Disease (s/p cholecystectomy), HTN, Post Traumatic Stress Disorder, Rheumatoid Arthritis, Seizures, Chronic Pain Denies: Chronic Kidney Disease Surgical History: Cholecystectomy - [facility] Procedures ALCOHOL DETOXIFICATION (07/04/15) APPLICATION OF SPLINT (03/20/13) CLOSURE SKIN & SUBCUTANEOUS NEC (08/14/13) DETOXIFICATION SERVICES FOR SUBSTANCE ABUSE TREATMENT (03/22/16) ESOPHAGOGASTRODUODENOSCOPY [EGD] W/CLOSED BIOPSY (02/16/15) INSERTION OF ENDOTRACHEAL AIRWAY INTO TRACHEA, VIA OPENING (09/11/18) OTHER GROUP THERAPY (03/12/13) PHYSICAL THERAPY NEC (07/04/15) RESPIRATORY VENTILATION, 24-96 CONSECUTIVE HOURS (09/11/18) TETANUS TOXOID ADMINIST (01/19/14) Family History: States: Unknown Family Hx - Social History Hx Tobacco Use: No Hx Alcohol Use: Yes Hx Substance Use: No - Immunization History Hx Tetanus Toxoid Vaccination: No Hx Influenza Vaccination: No Hx Pneumococcal Vaccination: No Review Of Systems Constitutional: Negative for: Fever, Chills Eyes: Negative for: Vision Change Cardiovascular: Negative for: Chest Pain, Palpitations Respiratory: Negative for: Cough, Shortness of Breath Gastrointestinal: Negative for: Nausea, Vomiting Neurological: Positive for: Seizures. Negative for: Weakness, Numbness Physical Exam - Physical Exam Appears: Non-toxic, Other (Alert, Conscious) Skin: Warm, Dry Head: Atraumatic, Normacephalic Eye(s): bilateral: Normal Inspection, PERRL, EOMI Oral Mucosa: Moist Neck: Normal, No Midline Cervical Tenderness, No Paracervical Tenderness, Supple Chest: Symmetrical, No Tenderness Cardiovascular: Rhythm Regular Respiratory: Normal Breath Sounds, No Rales, No Rhonchi, No Wheezing Gastrointestinal/Abdominal: Soft, No Tenderness Back: No Vertebral Tenderness, No Paraspinal Tenderness Extremity: Normal ROM (x4), Other (Dry abrasion to dorsum of left lower leg, no oozing or purulent discharge) Neurological/Psych: Oriented x3, Normal Speech ED Course And Treatment O2 Sat by Pulse Oximetry: 95 (Room air) Pulse Ox Interpretation: Normal Progress Note: Ativan administered. Bacitracin applied. Disposition Counseled Patient/Family Regarding: Diagnosis - Disposition Referrals: [facility] at [facility] [Outside] Disposition: HOME/ ROUTINE Disposition Time: 05:30 Condition: STABLE Instructions: Alcohol Abuse and Alcoholism (DC) Forms: [employer] (Irish) - POA Present On Arrival: None - Clinical Impression Clinical Impression: Alcohol abuse with intoxication - Scribe Statement The provider has reviewed the documentation as recorded by the Scribe Fabián Ramirez All medical record entries made by the Scribe were at my direction and personally dictated by me. I have reviewed the chart and agree that the record accurately reflects my personal performance of the history, physical exam, medical decision making, and the department course for this patient. I have also personally directed, reviewed, and agree with the discharge instructions and disposition.
[2018-11-05] MEDS ORDERED: Naproxen 550 mg Tab PO STA (19:49)
[2018-11-05] MEDS ORDERED: Naproxen 550 mg Tab PO ONE (19:54)
[2018-11-06 06:44] VITALS: BP 138/92; PULSE 102; RESP 16; TEMP 98.6; O2SAT 99
== END 2018-11-06 06:44 | disposition home or self-care (01) ==
LOC: C.ER 18:43
DX: F10.129 Alcohol abuse with intoxication, unspecified (principal); Y90.9 Presence of alcohol in blood, level not specified

== ENCOUNTER 2018-11-06 17:19 | Emergency (ER) | payer MEDICAID | END 2018-11-07 06:08 | disposition home or self-care (01) | LOC: C.ER 17:19 ==

== ENCOUNTER 2018-11-07 19:10 | Emergency (ER) | payer MEDICAID ==
[2018-11-07 19:10] VITALS: BMI 27.1
--- NOTE | 2018-11-07 19:32 | C.PDOC ---
History Of Present Illness 58 year old male presents to the ER with acute ETOH intoxication, requesting a place to spend the night. Denies any complaints at this time. Chief Complaint (Nursing): Substance Abuse History Per: Patient History/Exam Limitations: no limitations Onset/Duration Of Symptoms: Hrs Current Symptoms Are (Timing): Still Present Modifying Factor(s): Alcohol Involuntary Hold By: None Recent travel outside of the [place]: No Past Medical History Reviewed: Historical Data, Nursing Documentation, Vital Signs Vital Signs: Last Vital Signs Temp 98.2 F 11/07/18 19:20 Pulse 90 11/07/18 19:20 Resp 20 11/07/18 19:20 BP 127/73 11/07/18 19:20 Pulse Ox 97 11/07/18 19:20 - Medical History PMH: Anxiety, Arthritis, Bronchitis, CAD, Depression, Diabetes (Pt. did not disclose to automatic typewriter inspector, not aware), Fractures, Gastritis, Gall Bladder Disease (s/p cholecystectomy), HTN, Post Traumatic Stress Disorder, Rheumatoid Arthritis, Seizures, Chronic Pain Denies: Chronic Kidney Disease Surgical History: Cholecystectomy - [facility] Procedures ALCOHOL DETOXIFICATION (07/04/15) APPLICATION OF SPLINT (03/20/13) CLOSURE SKIN & SUBCUTANEOUS NEC (08/14/13) DETOXIFICATION SERVICES FOR SUBSTANCE ABUSE TREATMENT (03/22/16) ESOPHAGOGASTRODUODENOSCOPY [EGD] W/CLOSED BIOPSY (02/16/15) INSERTION OF ENDOTRACHEAL AIRWAY INTO TRACHEA, VIA OPENING (09/11/18) OTHER GROUP THERAPY (03/12/13) PHYSICAL THERAPY NEC (07/04/15) RESPIRATORY VENTILATION, 24-96 CONSECUTIVE HOURS (09/11/18) TETANUS TOXOID ADMINIST (01/19/14) Family History: States: Unknown Family Hx - Social History Hx Tobacco Use: No Hx Alcohol Use: Yes Hx Substance Use: No - Immunization History Hx Tetanus Toxoid Vaccination: No Hx Influenza Vaccination: No Hx Pneumococcal Vaccination: No Review Of Systems Constitutional: Negative for: Fever, Chills Cardiovascular: Negative for: Chest Pain, Palpitations Respiratory: Negative for: Cough, Shortness of Breath Gastrointestinal: Negative for: Nausea, Vomiting Neurological: Negative for: Weakness, Numbness Physical Exam - Physical Exam Appears: Non-toxic, No Acute Distress, Other (ETOH on breath, no sign of injury) Skin: Normal Color, Warm, Dry Head: Atraumatic, Normacephalic Eye(s): bilateral: Normal Inspection Oral Mucosa: Moist Neck: Normal, No Midline Cervical Tenderness, No Paracervical Tenderness, Supple Chest: Symmetrical, No Tenderness Cardiovascular: Rhythm Regular Respiratory: Normal Breath Sounds, No Rales, No Rhonchi, No Wheezing Gastrointestinal/Abdominal: Soft, No Tenderness Back: No Vertebral Tenderness, No Paraspinal Tenderness Extremity: Normal ROM (x4) Neurological/Psych: Oriented x3, Normal Speech ED Course And Treatment O2 Sat by Pulse Oximetry: 97 (Room air) Pulse Ox Interpretation: Normal Disposition Counseled Patient/Family Regarding: Diagnosis - Disposition Referrals: [facility] [Outside] Disposition: HOME/ ROUTINE Disposition Time: 06:09 Condition: STABLE Instructions: Alcohol Abuse and Alcoholism (DC) Forms: [facility] (Macedonian) - POA Present On Arrival: None - Clinical Impression Clinical Impression: Alcohol abuse - Scribe Statement The provider has reviewed the documentation as recorded by the Scribe Fabián Ramirez All medical record entries made by the Scribe were at my direction and personally dictated by me. I have reviewed the chart and agree that the record accurately reflects my personal performance of the history, physical exam, medical decision making, and the department course for this patient. I have also personally directed, reviewed, and agree with the discharge instructions and disposition.
[2018-11-08 06:07] VITALS: BP 123/78; PULSE 91; RESP 16; TEMP 98.1; O2SAT 97
== END 2018-11-08 06:07 | disposition home or self-care (01) ==
LOC: C.ER 19:10
DX: F10.129 Alcohol abuse with intoxication, unspecified (principal); E11.9 Type 2 diabetes mellitus without complications; I25.10 Atherosclerotic heart disease of native coronary artery without angina pectoris

== ENCOUNTER 2018-11-08 17:40 | Emergency (ER) | payer MEDICAID ==
[2018-11-08 17:40] VITALS: BMI 27.1
--- NOTE | 2018-11-08 20:24 | C.PDOC ---
History Of Present Illness 58 year old male with history of alcoholism and homelessness presents to the ED complaining of chronic leg pain and requesting a place to stay. Patient comes daily to the ED and is well known to [facility]. Denies any new pain or injuries, fever, chills, cough, n/v/d, or any other complaints. Time Seen by Provider: 11/08/18 17:51 Chief Complaint (Nursing): Lower Extremity Problem/Injury History Per: Patient History/Exam Limitations: no limitations Onset/Duration Of Symptoms: Hrs Current Symptoms Are (Timing): Still Present Past Medical History Reviewed: Historical Data, Nursing Documentation, Vital Signs Vital Signs: Last Vital Signs Temp 97.9 F 11/08/18 17:49 Pulse 96 H 11/08/18 17:49 Resp 18 11/08/18 17:49 BP Pulse Ox 97 11/08/18 17:49 - Medical History PMH: Anxiety, Arthritis, Bronchitis, CAD, Depression, Diabetes (Pt. did not disclose to consumer loan underwriter, not aware), Fractures, Gastritis, Gall Bladder Disease (s/p cholecystectomy), HTN, Post Traumatic Stress Disorder, Rheumatoid Arthritis, Seizures, Chronic Pain Denies: Chronic Kidney Disease Surgical History: Cholecystectomy - [facility] Procedures ALCOHOL DETOXIFICATION (07/04/15) APPLICATION OF SPLINT (03/20/13) CLOSURE SKIN & SUBCUTANEOUS NEC (08/14/13) DETOXIFICATION SERVICES FOR SUBSTANCE ABUSE TREATMENT (03/22/16) ESOPHAGOGASTRODUODENOSCOPY [EGD] W/CLOSED BIOPSY (02/16/15) INSERTION OF ENDOTRACHEAL AIRWAY INTO TRACHEA, VIA OPENING (09/11/18) OTHER GROUP THERAPY (03/12/13) PHYSICAL THERAPY NEC (07/04/15) RESPIRATORY VENTILATION, 24-96 CONSECUTIVE HOURS (09/11/18) TETANUS TOXOID ADMINIST (01/19/14) Family History: States: No Known Family Hx - Social History Hx Tobacco Use: No Hx Alcohol Use: Yes Hx Substance Use: No - Immunization History Hx Tetanus Toxoid Vaccination: No Hx Influenza Vaccination: No Hx Pneumococcal Vaccination: No Review Of Systems Except As Marked, All Systems Reviewed And Found Negative. Constitutional: Negative for: Fever, Chills Cardiovascular: Negative for: Chest Pain Respiratory: Negative for: Cough, Shortness of Breath Gastrointestinal: Negative for: Nausea, Vomiting, Diarrhea Musculoskeletal: Positive for: Leg Pain Physical Exam - Physical Exam Appears: Non-toxic, No Acute Distress, Other (slurred speech ) Skin: Warm, Dry, No Rash Head: Normacephalic Eye(s): bilateral: Normal Inspection Nose: Normal Oral Mucosa: Moist, Other (alcohol smell on breath ) Neck: Supple Chest: Symmetrical Cardiovascular: Rhythm Regular Respiratory: Normal Breath Sounds, No Rales, No Rhonchi, No Wheezing Gastrointestinal/Abdominal: Soft, No Tenderness Extremity: Normal ROM Neurological/Psych: Oriented x3, Normal Speech Gait: Steady ED Course And Treatment O2 Sat by Pulse Oximetry: 97 (RA) Pulse Ox Interpretation: Normal Disposition Counseled Patient/Family Regarding: Diagnosis - Disposition Disposition: HOME/ ROUTINE Disposition Time: 05:45 Condition: STABLE Instructions: Alcohol Abuse and Alcoholism (DC) Forms: [employer] (French) - Clinical Impression Clinical Impression: Alcohol intoxication - Scribe Statement The provider has reviewed the documentation as recorded by the Scribe Karissa Sousa All medical record entries made by the Scribe were at my direction and personally dictated by me. I have reviewed the chart and agree that the record accurately reflects my personal performance of the history, physical exam, medical decision making, and the department course for this patient. I have also personally directed, reviewed, and agree with the discharge instructions and disposition.
[2018-11-09 05:37] VITALS: BP 152/85; PULSE 90; RESP 20; TEMP 100.2
[2018-11-10 01:28] VITALS: O2SAT 97
== END 2018-11-09 05:51 | disposition home or self-care (01) ==
LOC: C.ER 17:40
DX: F10.129 Alcohol abuse with intoxication, unspecified (principal); Y90.9 Presence of alcohol in blood, level not specified; Z59.0 Homelessness

== ENCOUNTER 2018-11-09 17:54 | Emergency (ER) | payer MEDICAID ==
[2018-11-09 17:54] VITALS: BMI 27.1
--- NOTE | 2018-11-09 18:30 | C.PDOC ---
History Of Present Illness 58 y/o male, homeless and alcoholic, frequent visitor to ER, comes in to ED for chronic leg pain. Patient is requesting for a place to stay due to cold weather. Otherwise he has no other complaints. Chief Complaint (Nursing): Substance Abuse History Per: Patient History/Exam Limitations: no limitations Onset/Duration Of Symptoms: Days Current Symptoms Are (Timing): Still Present Past Medical History Reviewed: Historical Data, Nursing Documentation, Vital Signs Vital Signs: Last Vital Signs Temp 97.9 F 11/09/18 18:09 Pulse 96 H 11/09/18 18:09 Resp 14 11/09/18 18:09 BP 117/78 11/09/18 18:09 Pulse Ox 99 11/09/18 18:09 - Medical History PMH: Anxiety, Arthritis, Bronchitis, CAD, Depression, Diabetes (Pt. did not disclose to service writer, not aware), Fractures, Gastritis, Gall Bladder Disease (s/p cholecystectomy), HTN, Post Traumatic Stress Disorder, Rheumatoid Arthritis, Seizures, Chronic Pain Denies: Chronic Kidney Disease Surgical History: Cholecystectomy - [facility] Procedures ALCOHOL DETOXIFICATION (07/04/15) APPLICATION OF SPLINT (03/20/13) CLOSURE SKIN & SUBCUTANEOUS NEC (08/14/13) DETOXIFICATION SERVICES FOR SUBSTANCE ABUSE TREATMENT (03/22/16) ESOPHAGOGASTRODUODENOSCOPY [EGD] W/CLOSED BIOPSY (02/16/15) INSERTION OF ENDOTRACHEAL AIRWAY INTO TRACHEA, VIA OPENING (09/11/18) OTHER GROUP THERAPY (03/12/13) PHYSICAL THERAPY NEC (07/04/15) RESPIRATORY VENTILATION, 24-96 CONSECUTIVE HOURS (09/11/18) TETANUS TOXOID ADMINIST (01/19/14) Family History: States: No Known Family Hx - Social History Hx Tobacco Use: No Hx Alcohol Use: Yes Hx Substance Use: No - Immunization History Hx Tetanus Toxoid Vaccination: No Hx Influenza Vaccination: No Hx Pneumococcal Vaccination: No Review Of Systems Constitutional: Negative for: Fever, Chills Cardiovascular: Negative for: Chest Pain Respiratory: Negative for: Shortness of Breath Gastrointestinal: Negative for: Nausea, Vomiting, Abdominal Pain Genitourinary: Negative for: Dysuria Musculoskeletal: Positive for: Leg Pain Skin: Negative for: Rash Psych: Positive for: Other (Alcoholic) Physical Exam - Physical Exam Appears: Non-toxic, No Acute Distress, Other (Alcohol on breath; intoxicated) Skin: Warm, Dry, Other (Chronic wound on right lower leg) Head: Atraumatic, Normacephalic Eye(s): bilateral: Normal Inspection Oral Mucosa: Moist Neck: Supple Cardiovascular: Rhythm Regular, No Murmur Respiratory: Normal Breath Sounds, No Rales, No Rhonchi, No Wheezing Extremity: Bilateral: Normal Color And Temperature, Normal ROM ED Course And Treatment O2 Sat by Pulse Oximetry: 99 (RA) Pulse Ox Interpretation: Normal Reevaluation Time: 23:32 Reassessment Condition: Unchanged (Patient resting quietly) Disposition - Disposition Disposition Time: 00:45 Condition: STABLE Forms: [facility] (Thai) - Clinical Impression Clinical Impression: Alcohol intoxication, Right leg pain, Lower extremity cellulitis, Homeless single person - Scribe Statement The provider has reviewed the documentation as recorded by the Jada Bullock Provider Attestation: All medical record entries made by the Rominaibe were at my direction and personally dictated by me. I have reviewed the chart and agree that the record accurately reflects my personal performance of the history, physical exam, medical decision making, and the department course for this patient. I have also personally directed, reviewed, and agree with the discharge instructions and disposition. Physician Patient Turnover Patient Signed Over To: Noreen Roe Handoff Comments: pending sobriety
[2018-11-10 04:18] VITALS: BP 130/70; PULSE 70; RESP 14; TEMP 70; O2SAT 96
== END 2018-11-10 06:52 | disposition left against medical advice (07) ==
LOC: C.ER 17:54
DX: F10.129 Alcohol abuse with intoxication, unspecified (principal); M79.604 Pain in right leg; L03.115 Cellulitis of right lower limb; Z59.0 Homelessness; E11.9 Type 2 diabetes mellitus without complications; I25.10 Atherosclerotic heart disease of native coronary artery without angina pectoris

== ENCOUNTER 2018-11-10 20:15 | Emergency (ER) | payer MEDICAID ==
[2018-11-10 20:15] VITALS: BMI 27.1
--- NOTE | 2018-11-10 20:52 | C.PDOC ---
History Of Present Illness 58 year old male presents to the ER with acute ETOH intoxication requesting a place to spend the night. Denies any complaints at this time. Time Seen by Provider: 11/10/18 20:30 Chief Complaint (Nursing): Substance Abuse History Per: Patient History/Exam Limitations: no limitations Modifying Factor(s): Alcohol Involuntary Hold By: None Recent travel outside of the [place]: No Past Medical History Reviewed: Historical Data, Nursing Documentation, Vital Signs Vital Signs: Last Vital Signs Temp 97.7 F 11/10/18 20:24 Pulse 94 H 11/10/18 20:24 Resp 16 11/10/18 20:24 BP 156/98 H 11/10/18 20:24 Pulse Ox 100 11/10/18 20:24 - Medical History PMH: Anxiety, Arthritis, Bronchitis, CAD, Depression, Diabetes (Pt. did not disclose to marketing writer, not aware), Fractures, Gastritis, Gall Bladder Disease (s/p cholecystectomy), HTN, Post Traumatic Stress Disorder, Rheumatoid Arthritis, Seizures, Chronic Pain Denies: Chronic Kidney Disease Surgical History: Cholecystectomy - [facility] Procedures ALCOHOL DETOXIFICATION (07/04/15) APPLICATION OF SPLINT (03/20/13) CLOSURE SKIN & SUBCUTANEOUS NEC (08/14/13) DETOXIFICATION SERVICES FOR SUBSTANCE ABUSE TREATMENT (03/22/16) ESOPHAGOGASTRODUODENOSCOPY [EGD] W/CLOSED BIOPSY (02/16/15) INSERTION OF ENDOTRACHEAL AIRWAY INTO TRACHEA, VIA OPENING (09/11/18) OTHER GROUP THERAPY (03/12/13) PHYSICAL THERAPY NEC (07/04/15) RESPIRATORY VENTILATION, 24-96 CONSECUTIVE HOURS (09/11/18) TETANUS TOXOID ADMINIST (01/19/14) Family History: States: Unknown Family Hx - Social History Hx Tobacco Use: No Hx Alcohol Use: Yes Hx Substance Use: No - Immunization History Hx Tetanus Toxoid Vaccination: No Hx Influenza Vaccination: No Hx Pneumococcal Vaccination: No Review Of Systems Except As Marked, All Systems Reviewed And Found Negative. Physical Exam - Physical Exam Appears: Non-toxic, Other (ETOH on breath, no sign of injury) Skin: Normal Color, Warm, Dry Head: Atraumatic, Normacephalic Eye(s): bilateral: Normal Inspection Oral Mucosa: Moist Chest: Symmetrical, No Tenderness Cardiovascular: Rhythm Regular Respiratory: Normal Breath Sounds, No Rales, No Rhonchi, No Wheezing Gastrointestinal/Abdominal: Soft, No Tenderness Extremity: Normal ROM (x4) Neurological/Psych: Oriented x3, Normal Speech ED Course And Treatment O2 Sat by Pulse Oximetry: 100 (Room air) Pulse Ox Interpretation: Normal Disposition - Disposition Disposition Time: 05:00 Condition: STABLE Forms: [facility] (Romanian) - Clinical Impression Clinical Impression: Alcohol intoxication - Scribe Statement The provider has reviewed the documentation as recorded by the Scribjosé miguel Ramirez All medical record entries made by the Rominaibjosé miguel were at my direction and personally dictated by me. I have reviewed the chart and agree that the record accurately reflects my personal performance of the history, physical exam, medical decision making, and the department course for this patient. I have also personally directed, reviewed, and agree with the discharge instructions and disposition.
[2018-11-11 04:05] VITALS: BP 131/89; PULSE 110; RESP 16; TEMP 97.9
[2018-11-11 05:00] VITALS: O2SAT 100
== END 2018-11-11 05:00 | disposition home or self-care (01) ==
LOC: C.ER 20:15
DX: F10.129 Alcohol abuse with intoxication, unspecified (principal); Y90.9 Presence of alcohol in blood, level not specified

== ENCOUNTER 2018-11-11 20:19 | Emergency (ER) | payer MEDICAID ==
[2018-11-11 20:19] VITALS: BMI 27.1
--- NOTE | 2018-11-11 21:03 | C.PDOC ---
History Of Present Illness Patient presents with acute ETOH intoxication, requesting a place to spend the night. Denies any physical complaints. Time Seen by Provider: 11/11/18 21:01 Chief Complaint (Nursing): Substance Abuse History Per: Patient History/Exam Limitations: no limitations Onset/Duration Of Symptoms: Hrs Current Symptoms Are (Timing): Still Present Suicide/Self Injury Attempted (Context): None Modifying Factor(s): Alcohol Severity: None Pain Scale Rating Of: 0 Associated Symptoms: denies: Depression, Suicidal Thoughts Involuntary Hold By: None Recent travel outside of the [place]: No Past Medical History Reviewed: Historical Data, Nursing Documentation, Vital Signs Vital Signs: Last Vital Signs Temp 98.0 F 11/11/18 20:41 Pulse 91 H 11/11/18 20:41 Resp 16 11/11/18 20:41 BP 145/82 11/11/18 20:41 Pulse Ox 97 11/11/18 20:41 - Medical History PMH: Anxiety, Arthritis, Bronchitis, CAD, Depression, Diabetes (Pt. did not disclose to clinical writer, not aware), Fractures, Gastritis, Gall Bladder Disease (s/p cholecystectomy), HTN, Post Traumatic Stress Disorder, Rheumatoid Arthritis, Seizures, Chronic Pain Denies: Chronic Kidney Disease Surgical History: Cholecystectomy - [facility] Procedures ALCOHOL DETOXIFICATION (07/04/15) APPLICATION OF SPLINT (03/20/13) CLOSURE SKIN & SUBCUTANEOUS NEC (08/14/13) DETOXIFICATION SERVICES FOR SUBSTANCE ABUSE TREATMENT (03/22/16) ESOPHAGOGASTRODUODENOSCOPY [EGD] W/CLOSED BIOPSY (02/16/15) INSERTION OF ENDOTRACHEAL AIRWAY INTO TRACHEA, VIA OPENING (09/11/18) OTHER GROUP THERAPY (03/12/13) PHYSICAL THERAPY NEC (07/04/15) RESPIRATORY VENTILATION, 24-96 CONSECUTIVE HOURS (09/11/18) TETANUS TOXOID ADMINIST (01/19/14) Family History: States: Unknown Family Hx - Social History Hx Tobacco Use: No Hx Alcohol Use: Yes Hx Substance Use: No - Immunization History Hx Tetanus Toxoid Vaccination: No Hx Influenza Vaccination: No Hx Pneumococcal Vaccination: No Review Of Systems Constitutional: Negative for: Fever, Chills Cardiovascular: Negative for: Chest Pain, Palpitations Respiratory: Negative for: Cough, Shortness of Breath Gastrointestinal: Negative for: Nausea, Vomiting Neurological: Negative for: Weakness, Numbness Physical Exam - Physical Exam Appears: Non-toxic, Other (ETOH on breath, no sign of injury) Skin: Warm, Dry Head: Normacephalic Oral Mucosa: Moist Chest: Symmetrical, No Tenderness Cardiovascular: Rhythm Regular Respiratory: No Rales, No Rhonchi, No Wheezing Gastrointestinal/Abdominal: Soft, No Tenderness Neurological/Psych: Oriented x3 ED Course And Treatment O2 Sat by Pulse Oximetry: 97 (Room air) Pulse Ox Interpretation: Normal Reevaluation Time: 05:53 Reassessment Condition: Improved Disposition Counseled Patient/Family Regarding: Studies Performed, Diagnosis, Need For Followup - Disposition Referrals: [facility] [Outside] Disposition: HOME/ ROUTINE Disposition Time: 21:02 Condition: FAIR Instructions: Alcohol Abuse and Alcoholism (DC) Forms: [employer] ([place]) - Clinical Impression Clinical Impression: Chronic alcoholism - Scribe Statement The provider has reviewed the documentation as recorded by the Scribe Fabián Ramirez All medical record entries made by the Scribe were at my direction and personally dictated by me. I have reviewed the chart and agree that the record accurately reflects my personal performance of the history, physical exam, medical decision making, and the department course for this patient. I have also personally directed, reviewed, and agree with the discharge instructions and disposition.
[2018-11-11 21:38] VITALS: RESP 16
[2018-11-12 00:04] VITALS: BP 139/86; PULSE 95; TEMP 97.9
[2018-11-12 05:53] VITALS: O2SAT 97
== END 2018-11-12 05:55 | disposition home or self-care (01) ==
LOC: C.ER 20:19
DX: F10.20 Alcohol dependence, uncomplicated (principal); Y90.9 Presence of alcohol in blood, level not specified

== ENCOUNTER 2018-11-12 20:26 | Emergency (ER) | payer MEDICAID ==
[2018-11-12 20:26] VITALS: BMI 27.1
--- NOTE | 2018-11-12 20:35 | C.PDOC ---
History Of Present Illness The patient is brought to the ED by EMS for evaluation. Patient admits he has been drinking today and is requesting a place to sleep for the night. Patient is familiar to the ED with many prior visits for the same. He offers no complaints at this time. Time Seen by Provider: 11/12/18 20:33 Chief Complaint (Nursing): Substance Abuse History Per: Patient, EMS History/Exam Limitations: intoxication Onset/Duration Of Symptoms: Hrs Current Symptoms Are (Timing): Still Present Suicide/Self Injury Attempted (Context): None Modifying Factor(s): Alcohol Severity: None Pain Scale Rating Of: 0 Associated Symptoms: denies: Suicidal Thoughts, Suicidal Plan Involuntary Hold By: None Recent travel outside of the [place]: No Additional History Per: Patient, EMS Past Medical History Reviewed: Historical Data, Nursing Documentation, Vital Signs - Medical History PMH: Anxiety, Arthritis, Bronchitis, CAD, Depression, Diabetes (Pt. 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 writer, not aware), Fractures, Gastritis, Gall Bladder Disease (s/p cholecystectomy), HTN, Post Traumatic Stress Disorder, Rheumatoid Arthritis, Seizures, Chronic Pain Denies: Chronic Kidney Disease Surgical History: Cholecystectomy - [facility] Procedures ALCOHOL DETOXIFICATION (07/04/15) APPLICATION OF SPLINT (03/20/13) CLOSURE SKIN & SUBCUTANEOUS NEC (08/14/13) DETOXIFICATION SERVICES FOR SUBSTANCE ABUSE TREATMENT (03/22/16) ESOPHAGOGASTRODUODENOSCOPY [EGD] W/CLOSED BIOPSY (02/16/15) INSERTION OF ENDOTRACHEAL AIRWAY INTO TRACHEA, VIA OPENING (09/11/18) OTHER GROUP THERAPY (03/12/13) PHYSICAL THERAPY NEC (07/04/15) RESPIRATORY VENTILATION, 24-96 CONSECUTIVE HOURS (09/11/18) TETANUS TOXOID ADMINIST (01/19/14) Family History: States: Unknown Family Hx - Social History Hx Tobacco Use: No Hx Alcohol Use: Yes Hx Substance Use: No - Immunization History Hx Tetanus Toxoid Vaccination: No Hx Influenza Vaccination: No Hx Pneumococcal Vaccination: No Review Of Systems Constitutional: Negative for: Fever, Chills Cardiovascular: Negative for: Chest Pain, Palpitations Respiratory: Negative for: Cough, Shortness of Breath Gastrointestinal: Negative for: Nausea, Vomiting, Abdominal Pain, Diarrhea Skin: Negative for: Rash, Lesions, Jaundice, Bruising Neurological: Negative for: Weakness, Numbness Psych: Positive for: Other (EtOH intoxication ). Negative for: Suicidal ideation Physical Exam - Physical Exam Appears: Non-toxic, No Acute Distress, Other (visibly intoxicated ) Skin: Warm, Dry, Other (no obvious signs of trauma/injury ) Head: Normacephalic Eye(s): bilateral: Normal Inspection Oral Mucosa: Moist Neck: Supple Chest: Symmetrical, No Deformity Respiratory: No Accessory Muscle Use Extremity: Normal ROM Neurological/Psych: Other (arousable to touch and verbal stimuli ) ED Course And Treatment O2 Sat by Pulse Oximetry: 97 (on RA) Pulse Ox Interpretation: Normal Reevaluation Time: 05:25 Reassessment Condition: Improved Disposition Counseled Patient/Family Regarding: Studies Performed, Diagnosis, Need For Followup - Disposition Referrals: [facility] [Outside] Disposition: HOME/ ROUTINE Disposition Time: 20:34 Condition: FAIR Instructions: Alcohol Abuse and Alcoholism (DC) Forms: [email or web address] Connect (French) - Clinical Impression Clinical Impression: Chronic alcoholism, Alcohol abuse, Alcohol intoxication - Scribe Statement The provider has reviewed the documentation as recorded by the Scribe (Kari Fajardo) Provider Attestation: All medical record entries made by the Scribe were at my direction and personally dictated by me. I have reviewed the chart and agree that the record accurately reflects my personal performance of the history, physical exam, medical decision making, and the department course for this patient. I have also personally directed, reviewed, and agree with the discharge instructions and disposition.
[2018-11-13 02:45] VITALS: RESP 20
[2018-11-13 05:46] VITALS: BP 147/80; PULSE 98; TEMP 98.5; O2SAT 96
== END 2018-11-13 06:31 | disposition home or self-care (01) ==
LOC: C.ER 20:26
DX: F10.229 Alcohol dependence with intoxication, unspecified (principal); Y90.9 Presence of alcohol in blood, level not specified

== ENCOUNTER 2018-11-13 19:25 | Emergency (ER) | payer MEDICAID ==
[2018-11-13 19:25] VITALS: BMI 27.1
--- NOTE | 2018-11-13 19:52 | C.PDOC ---
History Of Present Illness Patient presents to the ER with acute ETOH intoxication, requesting a place to spend the night. Denies any physical complaints at this time. Time Seen by Provider: 11/13/18 19:45 Chief Complaint (Nursing): Substance Abuse History Per: Patient History/Exam Limitations: no limitations Onset/Duration Of Symptoms: Hrs Current Symptoms Are (Timing): Still Present Suicide/Self Injury Attempted (Context): None Modifying Factor(s): Alcohol Severity: None Pain Scale Rating Of: 0 Associated Symptoms: denies: Depression, Suicidal Thoughts Involuntary Hold By: None Recent travel outside of the [place]: No Past Medical History Reviewed: Historical Data, Nursing Documentation, Vital Signs Vital Signs: Last Vital Signs Temp 97.6 F 11/13/18 19:31 Pulse 70 11/13/18 19:31 Resp 18 11/13/18 19:31 BP 137/86 11/13/18 19:31 Pulse Ox 99 11/13/18 19:31 - Medical History PMH: Anxiety, Arthritis, Bronchitis, CAD, Depression, Diabetes (Pt. did not disclose to narrative writer, not aware), Fractures, Gastritis, Gall Bladder Disease (s/p cholecystectomy), HTN, Post Traumatic Stress Disorder, Rheumatoid Arthritis, Seizures, Chronic Pain Denies: Chronic Kidney Disease Surgical History: Cholecystectomy - [facility] Procedures ALCOHOL DETOXIFICATION (07/04/15) APPLICATION OF SPLINT (03/20/13) CLOSURE SKIN & SUBCUTANEOUS NEC (08/14/13) DETOXIFICATION SERVICES FOR SUBSTANCE ABUSE TREATMENT (03/22/16) ESOPHAGOGASTRODUODENOSCOPY [EGD] W/CLOSED BIOPSY (02/16/15) INSERTION OF ENDOTRACHEAL AIRWAY INTO TRACHEA, VIA OPENING (09/11/18) OTHER GROUP THERAPY (03/12/13) PHYSICAL THERAPY NEC (07/04/15) RESPIRATORY VENTILATION, 24-96 CONSECUTIVE HOURS (09/11/18) TETANUS TOXOID ADMINIST (01/19/14) Family History: States: No Known Family Hx - Social History Hx Tobacco Use: No Hx Alcohol Use: Yes Hx Substance Use: No - Immunization History Hx Tetanus Toxoid Vaccination: No Hx Influenza Vaccination: No Hx Pneumococcal Vaccination: No Review Of Systems Constitutional: Negative for: Fever, Chills Cardiovascular: Negative for: Chest Pain, Palpitations Respiratory: Negative for: Cough, Shortness of Breath Gastrointestinal: Negative for: Nausea, Vomiting Neurological: Negative for: Weakness, Numbness Physical Exam - Physical Exam Appears: Non-toxic, Other (ETOH on breath, no sign of injury) Skin: Warm, Dry Head: Normacephalic Oral Mucosa: Moist Chest: Symmetrical, No Tenderness Cardiovascular: Rhythm Regular Respiratory: No Rales, No Rhonchi, No Wheezing Gastrointestinal/Abdominal: Soft, No Tenderness Neurological/Psych: Oriented x3 ED Course And Treatment O2 Sat by Pulse Oximetry: 99 Pulse Ox Interpretation: Normal Reevaluation Time: 05:16 Reassessment Condition: Improved Disposition Counseled Patient/Family Regarding: Studies Performed, Diagnosis, Need For Followup - Disposition Referrals: Tino Clark MD [Primary Care Provider] - Disposition: HOME/ ROUTINE Disposition Time: 19:52 Condition: FAIR Instructions: Alcohol Abuse and Alcoholism (DC) Forms: [employer] ([place]) - Clinical Impression Clinical Impression: Chronic alcoholism, Alcohol intoxication - Scribe Statement The provider has reviewed the documentation as recorded by the Scribe Fabián Ramirez All medical record entries made by the Scribe were at my direction and personally dictated by me. I have reviewed the chart and agree that the record accurately reflects my personal performance of the history, physical exam, medical decision making, and the department course for this patient. I have also personally directed, reviewed, and agree with the discharge instructions and disposition.
--- NOTE | 2018-11-13 19:54 | C.PDOC ---
Time Seen by Provider: 11/13/18 19:45 Chief Complaint (Nursing): Substance Abuse Past Medical History Vital Signs: Last Vital Signs Temp 97.6 F 11/13/18 19:31 Pulse 70 11/13/18 19:31 Resp 18 11/13/18 19:31 BP 137/86 11/13/18 19:31 Pulse Ox 99 11/13/18 19:31 - Medical History PMH: Anxiety, Arthritis, Bronchitis, CAD, Depression, Diabetes (Pt. 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 writer / runner, not aware), Fractures, Gastritis, Gall Bladder Disease (s/p cholecystectomy), HTN, Post Traumatic Stress Disorder, Rheumatoid Arthritis, Seizures, Chronic Pain Denies: Chronic Kidney Disease Surgical History: Cholecystectomy - [facility] Procedures ALCOHOL DETOXIFICATION (07/04/15) APPLICATION OF SPLINT (03/20/13) CLOSURE SKIN & SUBCUTANEOUS NEC (08/14/13) DETOXIFICATION SERVICES FOR SUBSTANCE ABUSE TREATMENT (03/22/16) ESOPHAGOGASTRODUODENOSCOPY [EGD] W/CLOSED BIOPSY (02/16/15) INSERTION OF ENDOTRACHEAL AIRWAY INTO TRACHEA, VIA OPENING (09/11/18) OTHER GROUP THERAPY (03/12/13) PHYSICAL THERAPY NEC (07/04/15) RESPIRATORY VENTILATION, 24-96 CONSECUTIVE HOURS (09/11/18) TETANUS TOXOID ADMINIST (01/19/14) Family History: States: Unknown Family Hx - Social History Hx Tobacco Use: No Hx Alcohol Use: Yes Hx Substance Use: No - Immunization History Hx Tetanus Toxoid Vaccination: No Hx Influenza Vaccination: No Hx Pneumococcal Vaccination: No ED Course And Treatment O2 Sat by Pulse Oximetry: 99 Disposition - Disposition Referrals: Tino Clark MD [Primary Care Provider] -
[2018-11-14 05:25] VITALS: BP 129/76; PULSE 78; RESP 20; TEMP 98; O2SAT 97
== END 2018-11-14 05:23 | disposition home or self-care (01) ==
LOC: SUPCPDRO 19:25 → C.ER 19:25
DX: F10.229 Alcohol dependence with intoxication, unspecified (principal); Y90.9 Presence of alcohol in blood, level not specified

== ENCOUNTER 2018-11-14 17:49 | Inpatient (IN) | payer MEDICAID ==
[2018-11-14 17:49] VITALS: BMI 27.1
--- NOTE | 2018-11-14 18:51 | CP.PCM.CON ---
History of Present Illness - History of Present Illness History of Present Illness: Podiatry Consult Note - Dr. Ballesteros 58 year old male patient PMHx ETOH abuse, chronic right leg pain seen and evaluated in ED; presented to ED s/p seizure and ETOH intoxication. Patient is a poor historian; full HPI unable to obtain as patient falling asleep during interview. Patient states he noticed the wound on top of his right 2nd digit possibly 1 week ago; reports pain localized to wound site. Denies any prior trauma to digit. Denies seeing any drainage from wound. Review of Systems - Review of Systems All systems: reviewed and no additional remarkable complaints except (as per HPI) Past Patient History - Infectious Disease Hx of Infectious Diseases: None - Past Medical History & Family History Past Medical History?: Yes - Past Social History Smoking Status: Never Smoked - CARDIAC Hx Hypertension: Yes - PULMONARY Hx Bronchitis: Yes - NEUROLOGICAL Hx Seizures: Yes - HEENT Hx HEENT Problems: No - RENAL Hx Chronic Kidney Disease: No - ENDOCRINE/METABOLIC Hx Endocrine Disorders: Yes Hx Diabetes Mellitus Type 2: Yes - INTEGUMENTARY Hx Dermatological Problems: Yes Hx Cellulitis: Yes - MUSCULOSKELETAL/RHEUMATOLOGICAL Hx Arthritis: Yes Hx Fractures: Yes Hx Rheumatoid Arthritis: Yes - GASTROINTESTINAL Hx Gall Bladder Disease: Yes (s/p cholecystectomy) Hx Gastritis: Yes - PSYCHIATRIC Hx Anxiety: Yes Hx Depression: Yes Hx Post Traumatic Stress Disorder: Yes Hx Substance Use: No - SURGICAL HISTORY Hx Cholecystectomy: Yes - ANESTHESIA Hx Anesthesia: Yes Hx Anesthesia Reactions: No Hx Malignant Hyperthermia: No Meds Allergies/Adverse Reactions: Allergies Allergy/AdvReac Type Severity Reaction Status Date / Time No Known Allergies Allergy Verified 11/14/18 18:10 Physical Exam - Constitutional Appears: No Acute Distress, Unkempt - Extremities Exam Additional comments: LE focused Vasc: DP and PT pulses palpable 2/4. CFT <3 seconds to digits. Temperature gradient warm to warm; no increase in warmth to right 2nd digit. +1 pitting edema noted to lower extremity from tibial tuberosity extending into digits. Neuro: Unable to assess. Derm: Superficial ulceration noted to dorsum of right second digit measuring approximately 1.5 x 1 x 0.1 cm - ulcer is noted to have a dry, granular and epithelializing base with minimal hyperkeratosis periwound; no drainage; no flucutance; no purulence; no malodor present. Dusky changes noted periwound. Superficial ulcers of varying stages noted circumfirentially to lower leg b/l. Skin diffusely dry b/l. Ortho: Pain on palpation to right 2nd digit wound. - Neurological Exam Neurological exam: Altered Results - Vital Signs Recent Vital Signs: Last Vital Signs Temp 98.4 F 11/14/18 18:20 Pulse 86 11/14/18 18:20 Resp 20 11/14/18 18:20 BP 145/93 H 11/14/18 18:20 Pulse Ox 96 11/14/18 18:20 - Labs Result Diagrams: 11/14/18 19:39 11/14/18 19:39 Labs: Laboratory Results - last 24 hr 11/14/18 18:17 POC Glucose (mg/dL) 113 H Assessment & Plan - Assessment and Plan (Free Text) Assessment: 58M PMHx including ETOH abuse seen and evaluated for right 2nd digit wound Plan: Patient seen and evaluated Discussed with attending, Dr. Ballesteros Afebrile, WBC 2.2 Right foot XR: Unremarkable Wounds appears stable at this time, will continue to monitor Wounds cleansed with saline and dressed with betadine, DSD Activity: WBAT RLE Podiatry will continue to follow while in house
--- NOTE | 2018-11-14 19:06 | C.PDOC ---
History Of Present Illness Patient is 58 year old homeless male, with a PMHx of alcohol abuse, chronic right leg pain, and a necrotic right third middle toe, who presents to the ED after having a seizure. Patient is a poor historian and is well known to the ED. Patient denies any SI/HI, hallucinations, CP, SOB, palpitations, dizziness, or falls. Time Seen by Provider: 11/14/18 18:10 Chief Complaint (Nursing): Seizure History Per: Patient, EMS History/Exam Limitations: intoxication Recent travel outside of the [place]: No Additional History Per: Patient, EMS Past Medical History Reviewed: Historical Data, Nursing Documentation, Vital Signs Vital Signs: Last Vital Signs Temp 98.4 F 11/14/18 18:20 Pulse 86 11/14/18 18:20 Resp 20 11/14/18 18:20 BP 145/93 H 11/14/18 18:20 Pulse Ox 96 11/14/18 18:20 - Medical History PMH: Anxiety, Arthritis, Bronchitis, CAD, Depression, Diabetes (Pt. did not disclose to contract writer, not aware), Fractures, Gastritis, Gall Bladder Disease (s/p cholecystectomy), HTN, Post Traumatic Stress Disorder, Rheumatoid Arthritis, Seizures, Chronic Pain Denies: Chronic Kidney Disease Surgical History: Cholecystectomy - [facility] Procedures ALCOHOL DETOXIFICATION (07/04/15) APPLICATION OF SPLINT (03/20/13) CLOSURE SKIN & SUBCUTANEOUS NEC (08/14/13) DETOXIFICATION SERVICES FOR SUBSTANCE ABUSE TREATMENT (03/22/16) ESOPHAGOGASTRODUODENOSCOPY [EGD] W/CLOSED BIOPSY (02/16/15) INSERTION OF ENDOTRACHEAL AIRWAY INTO TRACHEA, VIA OPENING (09/11/18) OTHER GROUP THERAPY (03/12/13) PHYSICAL THERAPY NEC (07/04/15) RESPIRATORY VENTILATION, 24-96 CONSECUTIVE HOURS (09/11/18) TETANUS TOXOID ADMINIST (01/19/14) Family History: States: Unknown Family Hx - Social History Hx Tobacco Use: No Hx Alcohol Use: Yes Hx Substance Use: No - Immunization History Hx Tetanus Toxoid Vaccination: No Hx Influenza Vaccination: No Hx Pneumococcal Vaccination: No Review Of Systems Cardiovascular: Negative for: Chest Pain, Palpitations Respiratory: Negative for: Shortness of Breath Neurological: Positive for: Seizures. Negative for: Dizziness Psych: Negative for: Suicidal ideation, Other (homicidal ideation, hallucinations ) Physical Exam - Physical Exam Appears: Non-toxic, No Acute Distress, Other (Appears intoxicated ) Skin: Normal Color, Warm, Dry Head: Atraumatic, Normacephalic Oral Mucosa: Moist Neck: Normal ROM, Supple Chest: Symmetrical, No Deformity Cardiovascular: Rhythm Regular, No Murmur Respiratory: Normal Breath Sounds, No Rales, No Rhonchi, No Wheezing Gastrointestinal/Abdominal: Soft, No Tenderness, No Guarding, No Rebound Extremity: Normal ROM, Other (Necrotic right third middle toe with ulcer) Neurological/Psych: Oriented x3 ED Course And Treatment - Laboratory Results Result Diagrams: 11/20/18 06:46 11/20/18 06:46 O2 Sat by Pulse Oximetry: 96 (on RA) - CT Scan/US CAT Head Other Rad Studies (CT/US): Read By Radiologist, Radiology Report Reviewed CT/US Interpretation: IMPRESSION: No acute intracranial abnormality. Mild inflammatory changes maxillary sinuses. Clinical correlation advised. Medical Decision Making Medical Decision Makinrd toe necrosis ro osteo. pt with known seizure do intoxicated upon arrivl Plan: CAT Head, Bloodwork, Urinalysis, Xray Rt Foot, POC Glucose ordered and reviewed. ekg nsr 98 pt seen by podiatry bedise. accepted dr hilda connelly. will admit for ro osteo. Disposition - Disposition Disposition: HOSPITALIZED Disposition Time: 09:50 Condition: GOOD - Clinical Impression Clinical Impression: Osteomyelitis, Seizure - Scribe Statement The provider has reviewed the documentation as recorded by the Jada Toure All medical record entries made by the Rominaibe were at my direction and personally dictated by me. I have reviewed the chart and agree that the record accurately reflects my personal performance of the history, physical exam, medical decision making, and the department course for this patient. I have also personally directed, reviewed, and agree with the discharge instructions and disposition. Decision To Admit - Pt Status Changed To: Hospital Disposition Of: Inpatient - Admit Certification Admit to Inpatient:: After my assessment, the patient will require hospitalization for at least two midnights. This is because of the severity of symptoms shown, intensity of services needed, and/or the medical risk in this patient being treated as an outpatient. - InPatient: Physician Admission Certification: I certify that this patient requires 2 or more midnights of care for the following reason:: needs antibioics - . Bed Request Type: Telemetry Admitting Physician: Malcolm Connelly Patient Diagnosis: Osteomyelitis, Seizure
[2018-11-14 19:45] LABS: BASO % 0.9 % (0.0-2.0); EOS # 0.1 K/uL (0.0-0.7); EOS % 3.7 % (0.0-4.0); HEMOGLOBIN 11.5 g/dL (12.0-18.0); LYMPH # 1.1 K/uL (1.0-4.3); LYMPH % 50.6 % (20.0-40.0); MEAN CORPUSCULAR HEMOGLOBIN 34.1 pg (27.0-31.0); MEAN CORPUSCULAR HGB CONC 33.5 g/dL (33.0-37.0); MEAN PLATELET VOLUME 7.9 fL (7.2-11.7); MONO # 0.3 K/uL (0.0-0.8); MONO % 15.3 % (0.0-10.0); NEUT # 0.6 K/uL (1.8-7.0); NEUT % 29.5 % (50.0-75.0); NRBC % 0.4 % (0.0-2.0); RBC 3.37 Mil/uL (4.40-5.90); RED CELL DISTRIBUTION WIDTH 16.4 % (11.5-14.5)
[2018-11-14 19:48] LABS: WHITE BLOOD COUNT 2.2 K/uL (4.8-10.8)
[2018-11-14 19:57] LABS: ALB/GLOB RATIO 1.1 (1.0-2.1); ALBUMIN 4.2 g/dL (3.5-5.0); ALT/SGPT 32 U/L (21-72); AST/SGOT 118 U/L (17-59); BLOOD UREA NITROGEN 12 mg/dL (9-20); CALCIUM 8.8 mg/dl (8.6-10.4); GFR NON-AFRICAN AMERICAN > 60
[2018-11-14 19:58] LABS: INR 1.1
[2018-11-14] MEDS ORDERED: Piperacillin/Tazobact 3.375 gm 100 ML IVPB STA (20:01)
[2018-11-14] MEDS ORDERED: Vancomycin 1 GM 1 GM/250 ML BAG IVPB ONE (20:40)
--- NOTE | 2018-11-15 07:11 | CT ---
Date of service: 11/14/2018 PROCEDURE: CT HEAD WITHOUT CONTRAST. HISTORY: seizure COMPARISON: None available. TECHNIQUE: Axial computed tomography images were obtained through the head/brain without intravenous contrast. Radiation dose: Total exam DLP = 1151.47 mGy-cm. This CT exam was performed using one or more of the following dose reduction techniques: Automated exposure control, adjustment of the mA and/or kV according to patient size, and/or use of iterative reconstruction technique. FINDINGS: HEMORRHAGE: No intracranial hemorrhage. BRAIN: No mass effect or edema. Scattered focal lucencies in the subcortical and periventricular white matter suggestive for chronic microvascular ischemic change. Punctate hypodensities in the bilateral external capsule suggestive for lacunar infarcts. VENTRICLES: Unremarkable. No hydrocephalus. CALVARIUM: Unremarkable. PARANASAL SINUSES: Mucosal thickening of the bilateral maxillary sinuses. MASTOID AIR CELLS: Unremarkable as visualized. No inflammatory changes. OTHER FINDINGS: Intracranial arterial calcifications. Streak artifact in the posterior fossa limits evaluation. IMPRESSION: No acute intracranial abnormality. Chronic microvascular ischemic changes. Sinus mucosal disease. If symptoms persists, consider correlation with MRI. A preliminary report was generated at 7:29 p.m. on 11/14/[address] Tino Child from [facility].
--- NOTE | 2018-11-15 09:15 | RAD ---
Right knee three views HISTORY: Abrasion. COMPARISON: None available. Findings: Moderate medial and patellofemoral compartment joint space narrowing. Suggestion of an abrasion and or small soft tissue defect within the prepatellar soft tissues. Clinical correlation. Diffuse osteopenia. No evidence of acute displaced fracture or dislocation. Impression: Moderate medial and patellofemoral compartment joint space narrowing. Suggestion of an abrasion and or small soft tissue defect within the prepatellar soft tissues. Clinical correlation. Diffuse osteopenia. No evidence of acute displaced fracture or dislocation. If pain persists, consider correlation with MRI.
[2018-11-15] MEDS: Piperacill/Tazo 3.375gm in Dex 3.375 GM/50 ML BAG IVPB SCH ×3 (10:31→21:01)
[2018-11-15] MEDS ORDERED: FOLIC ACID PO SCH (11:15)
[2018-11-15] MEDS ORDERED: METOPROLOL SUCCINATE PO SCH (11:15)
[2018-11-15] MEDS ORDERED: PROTONIX PO SCH (11:15)
[2018-11-15] MEDS ORDERED: TOPIRAMATE PO SCH (11:15)
[2018-11-15] MEDS ORDERED: PHENYTOIN PO SCH (11:15)
[2018-11-15] MEDS ORDERED: VITAMIN B1 PO SCH (11:15)
--- NOTE | 2018-11-15 11:15 | CP.PCM.PN ---
Subjective - Date & Time of Evaluation Date of Evaluation: 11/15/18 Time of Evaluation: 11:13 - Subjective Subjective: condition same. no seizures. ch inf rt foot. Objective - Vital Signs/Intake and Output Vital Signs (last 24 hours): Temp Pulse Resp BP Pulse Ox 98.5 F 96 H 20 138/81 100 11/15/18 08:00 11/15/18 08:00 11/15/18 08:00 11/15/18 08:00 11/15/18 08:00 Intake and Output: 11/15/18 11/15/18 06:59 18:59 Intake Total 120 Output Total 725 Balance -605 - Medications Medications: Current Medications Heparin Sodium (Porcine) (Heparin) 5,000 units SC Q12 [facility] Last Admin: 11/15/18 10:27 Dose: 5,000 units Home Med (Folic Acid) 1 tab PO DAILY [facility] Home Med (Metoprolol Succinate) 1 tab PO DAILY [facility] Home Med (Phenytoin) 1 tab PO DAILY [facility] Home Med (Protonix) 1 tab PO DAILY [facility] Home Med (Topiramate) 1 tab PO DAILY [facility] Home Med (Vitamin B-1) 1 tab PO DAILY [facility] Piperacillin Sod/Tazobactam Sod (Zosyn 3.375 Gm Iv Premix) 3.375 gm in 50 mls @ 100 mls/hr IVPB Q6H [facility]; Protocol Last Admin: 11/15/18 10:31 Dose: 100 mls/hr Multivitamins/Minerals (Therapeutic-M Tab) 1 tab PO DAILY [facility] - Labs Labs: 11/14/18 19:39 11/14/18 19:39 PT 12.0 SECONDS (9.7-12.2) 11/14/18 19:39 INR 1.1 11/14/18 19:39 APTT 31 SECONDS (21-34) 11/14/18 19:39 - Constitutional Appears: No Acute Distress, Chronically Ill - Eye Exam Eye Exam: Normal appearance, PERRL - ENT Exam ENT Exam: Mucous Membranes Moist - Respiratory Exam Respiratory Exam: Clear to Ausculation Bilateral, NORMAL BREATHING PATTERN - Cardiovascular Exam Cardiovascular Exam: REGULAR RHYTHM, +S1, +S2 - GI/Abdominal Exam GI & Abdominal Exam: Soft, Normal Bowel Sounds - Extremities Exam Extremities Exam: Full ROM, Normal Capillary Refill, Normal Inspection. absent: Joint Swelling, Pedal Edema Additional comments: ch rt foot cellulitis ulcer. - Back Exam Back Exam: NORMAL INSPECTION Assessment and Plan - Assessment and Plan (Free Text) Assessment: same. Plan: ct present treatment.
--- NOTE | 2018-11-15 11:26 | CP.PCM.PN ---
Subjective - Date & Time of Evaluation Date of Evaluation: 11/15/18 Time of Evaluation: 11:24 - Subjective Subjective: Podiatry Progress Note - Dr. Ballesteros 58 year old male patient PMHx ETOH abuse, chronic right leg pain seen and evaluated at bedside. Patient is a poor historian, however states the wound is painful. Patient states he noticed the wound on top of his right 2nd digit possibly 1 week ago; reports pain localized to wound site. Denies any prior trauma to digit. Denies seeing any drainage from wound. Denies any overnight complaints Objective - Vital Signs/Intake and Output Vital Signs (last 24 hours): Temp Pulse Resp BP Pulse Ox 98.5 F 96 H 20 138/81 100 11/15/18 08:00 11/15/18 08:00 11/15/18 08:00 11/15/18 08:00 11/15/18 08:00 Intake and Output: 11/15/18 11/15/18 06:59 18:59 Intake Total 120 Output Total 725 Balance -605 - Medications Medications: Current Medications Heparin Sodium (Porcine) (Heparin) 5,000 units SC Q12 [facility] Last Admin: 11/15/18 10:27 Dose: 5,000 units Home Med (Folic Acid) 1 tab PO DAILY [facility] Home Med (Metoprolol Succinate) 1 tab PO DAILY [facility] Home Med (Phenytoin) 1 tab PO DAILY [facility] Home Med (Protonix) 1 tab PO DAILY [facility] Home Med (Topiramate) 1 tab PO DAILY [facility] Home Med (Vitamin B-1) 1 tab PO DAILY [facility] Piperacillin Sod/Tazobactam Sod (Zosyn 3.375 Gm Iv Premix) 3.375 gm in 50 mls @ 100 mls/hr IVPB Q6H [facility]; Protocol Last Admin: 11/15/18 10:31 Dose: 100 mls/hr Multivitamins/Minerals (Therapeutic-M Tab) 1 tab PO DAILY [facility] - Labs Labs: 11/14/18 19:39 11/14/18 19:39 PT 12.0 SECONDS (9.7-12.2) 11/14/18 19:39 INR 1.1 11/14/18 19:39 APTT 31 SECONDS (21-34) 11/14/18 19:39 - Constitutional Appears: Well, Non-toxic, No Acute Distress - Head Exam Head Exam: ATRAUMATIC, NORMOCEPHALIC - Extremities Exam Additional comments: LE focused Vasc: DP and PT pulses palpable 2/4. CFT <3 seconds to digits. Temperature gradient warm to warm; no increase in warmth to right 2nd digit. +1 pitting edema noted to lower extremity from tibial tuberosity extending into digits. Neuro: Unable to assess. Derm: Superficial ulceration noted to dorsum of right second digit measuring approximately 1.5 x 1 x 0.1 cm - ulcer is noted to have a dry, granular and epithelializing base with minimal hyperkeratosis periwound; no drainage; no flucutance; no purulence; no malodor present. Dusky changes noted periwound. Superficial ulcers of varying stages noted circumfirentially to lower leg b/l. Skin diffusely dry b/l. Ortho: Pain on palpation to right 2nd digit wound. - Neurological Exam Neurological Exam: Alert, Awake, Oriented x3 - Psychiatric Exam Psychiatric exam: Normal Affect, Normal Mood Assessment and Plan - Assessment and Plan (Free Text) Assessment: 58 y/o male PMHx including ETOH abuse seen and evaluated for right 2nd digit wound Plan: Patient seen and evaluated with Dr. Ballesteros Chart, labs and vitals reviewed Discussed with attending, Dr. Ballesteros Afebrile, WBC 2.2 Right foot XR: Unremarkable Wounds appears stable at this time, will continue to monitor Wounds cleansed with saline and dressed with betadine, DSD Activity: WBAT RLE Podiatry will continue to follow while in house
[2018-11-15] MEDS: Multivitamin With Minerals Tab PO SCH (13:00)
[2018-11-15 13:08] LABS: URINE BILIRUBIN NEGATIVE (NEGATIVE); URINE BLOOD NEGATIVE (NEGATIVE); URINE CLARITY Clear (Clear); URINE COLOR Yellow (YELLOW); URINE GLUCOSE (UA) NORMAL (Normal); URINE LEUKOCYTE ESTERASE NEG Leu/uL (Negative); URINE PROTEIN NEGATIVE (NEGATIVE)
[2018-11-15] MEDS: Metoprolol Succinate 50 mg XL Tab PO SCH (13:40)
[2018-11-15] MEDS: Pantoprazole 40 mg EC Tab PO SCH (14:40)
--- NOTE | 2018-11-15 16:03 | RAD ---
Right foot three views HISTORY: Necrosis at the 3rd digit. COMPARISON: None. FINDINGS: Prior hallux valgus repair. Radiopaque density seen adjacent to the lateral soft tissues of the 5th metatarsal bone, nonspecific, possibly postsurgical debris. Clinical correlation. Punctate ossific density seen adjacent to the lateral aspect of the 4th metatarsal head. Degenerative changes in the midfoot. If there is concern for acute osteomyelitis, correlation with MRI is recommended. Plantar calcaneal spurring. Impression: Prior hallux valgus repair. Radiopaque density seen adjacent to the lateral soft tissues of the 5th metatarsal bone, nonspecific, possibly postsurgical debris. Clinical correlation. Punctate ossific density seen adjacent to the lateral aspect of the 4th metatarsal head. Degenerative changes in the midfoot. Plantar calcaneal spurring. If there is concern for acute osteomyelitis, correlation with MRI is recommended.
--- NOTE | 2018-11-15 21:30 | HP ---
HISTORY OF PRESENT ILLNESS: This is a 58-year-old homeless male, came to the emergency room with history of seizures. The patient is alcoholic and was intoxicated. The patient complained of chronic right leg pain and necrotic right third toe infection with open ulcer. The patient denies having any fever or chills. No chest pain, no shortness of breath, no palpitation, no dizziness or fall. REVIEW OF SYSTEMS: CARDIOVASCULAR SYSTEM: Negative for chest pain. RESPIRATORY SYSTEM: Negative for shortness of breath. GASTROINTESTINAL SYSTEM: Negative for nausea, vomiting, or abdominal pain. CENTRAL NERVOUS SYSTEM: No focal neurological deficits. No edema of the legs. The patient has right middle toe infection and ulcer with cellulitis. No fever. No urinary complaints. PAST HISTORY: History of arthritis, anxiety, bronchitis, depression, diabetes, gallbladder disease, hypertension, coronary artery disease, rheumatoid arthritis and seizure disorder, chronic pain. ALLERGIES: NO KNOWN ALLERGY. SOCIAL HISTORY: The patient is alcoholic. Denies tobacco and substance abuse. FAMILY HISTORY: No known inherited disease. MEDICATIONS: The patient's medications were reviewed by me. PHYSICAL EXAMINATION: GENERAL: This is a 58-year-old black male, awake and comfortable.. VITAL SIGNS: Temperature 98.4, pulse 86, respirations 20, blood pressure 145/93 mmHg, pulse ox is 96% on room air. HEENT: Normal. NECK: JVP flat. Carotid, no bruits. LUNGS: No rales. No wheezing. HEART: S1 and S2 are normal. No gallop. No murmur. ABDOMEN: Soft, nontender. No organomegaly. CENTRAL NERVOUS SYSTEM: No focal neurological deficits. Right foot has chronic infection and open ulcer on the third toe. Left foot also has chronic cellulitis. LABORATORY DATA: On admission, white cell count is 2.2, hemoglobin 11.5, and low platelets. Potassium is 3.5. Renal function is normal. IMPRESSION: Seizure disorder, right foot infection with cellulitis, ethanol. PLAN: The patient will be admitted to the floor. We will get Podiatry consult and Neurology consult. Other workup as needed. Malcolm Fajardo MD
[2018-11-16] MEDS: Piperacill/Tazo 3.375gm in Dex 3.375 GM/50 ML BAG IVPB SCH ×4 (03:57→21:27)
[2018-11-16 08:34] LABS: BASO % 0.8 % (0.0-2.0); EOS # 0.1 K/uL (0.0-0.7); EOS % 2.3 % (0.0-4.0); HEMOGLOBIN 12.3 g/dL (12.0-18.0); LYMPH # 0.7 K/uL (1.0-4.3); LYMPH % 28.2 % (20.0-40.0); MEAN CELL VOLUME 100.6 fL (80.0-94.0); MEAN CORPUSCULAR HEMOGLOBIN 34.5 pg (27.0-31.0); MEAN CORPUSCULAR HGB CONC 34.3 g/dL (33.0-37.0); MEAN PLATELET VOLUME 7.8 fL (7.2-11.7); MONO # 0.4 K/uL (0.0-0.8); MONO % 14.8 % (0.0-10.0); NEUT # 1.3 K/uL (1.8-7.0); NEUT % 53.9 % (50.0-75.0); NRBC % 0.8 % (0.0-2.0); RBC 3.57 Mil/uL (4.40-5.90); RED CELL DISTRIBUTION WIDTH 15.2 % (11.5-14.5); WHITE BLOOD COUNT 2.4 K/uL (4.8-10.8)
[2018-11-16 08:56] LABS: ALB/GLOB RATIO 1.1 (1.0-2.1); ALBUMIN 4.3 g/dL (3.5-5.0); ALT/SGPT 23 U/L (21-72); AST/SGOT 90 U/L (17-59); BLOOD UREA NITROGEN 7 mg/dL (9-20); CALCIUM 8.9 mg/dl (8.6-10.4); GFR NON-AFRICAN AMERICAN > 60
--- NOTE | 2018-11-16 08:56 | CP.PCM.PN ---
Subjective - Date & Time of Evaluation Date of Evaluation: 11/16/18 Time of Evaluation: 08:54 - Subjective Subjective: Podiatry Progress Note - Dr. Ballesteros 58 year old male patient PMHx ETOH abuse, chronic right leg pain seen and evaluated at bedside. Patient is a poor historian, however states the wound is painful. Denies any overnight complaints Objective - Vital Signs/Intake and Output Vital Signs (last 24 hours): Temp Pulse Resp BP Pulse Ox 97.8 F 76 20 152/93 H 99 11/16/18 07:15 11/16/18 07:15 11/16/18 07:15 11/16/18 07:15 11/16/18 07:15 Intake and Output: 11/16/18 11/16/18 06:59 18:59 Intake Total 750 Output Total 1450 Balance -700 - Medications Medications: Current Medications Folic Acid (Folic Acid) 1 mg PO DAILY [facility] Heparin Sodium (Porcine) (Heparin) 5,000 units SC Q12 [facility] Last Admin: 11/15/18 21:02 Dose: 5,000 units Piperacillin Sod/Tazobactam Sod (Zosyn 3.375 Gm Iv Premix) 3.375 gm in 50 mls @ 100 mls/hr IVPB Q6H [facility]; Protocol Last Admin: 11/16/18 03:57 Dose: 100 mls/hr Metoprolol Succinate (Toprol Xl) 50 mg PO DAILY [facility] Multivitamins/Minerals (Therapeutic-M Tab) 1 tab PO DAILY [facility] Last Admin: 11/15/18 13:00 Dose: 1 tab Pantoprazole Sodium (Protonix Ec Tab) 40 mg PO DAILY [facility] Phenytoin Sodium (Dilantin) 100 mg PO DAILY [facility] Thiamine HCl (Vitamin B1 Tab) 100 mg PO DAILY [facility] Topiramate (Topamax) 25 mg PO DAILY [facility] - Labs Labs: 11/16/18 08:24 11/14/18 19:39 PT 12.0 SECONDS (9.7-12.2) 11/14/18 19:39 INR 1.1 11/14/18 19:39 APTT 31 SECONDS (21-34) 11/14/18 19:39 - Constitutional Appears: Well, Non-toxic, No Acute Distress - Head Exam Head Exam: ATRAUMATIC, NORMOCEPHALIC - Extremities Exam Additional comments: LE focused Vasc: DP and PT pulses palpable 2/4. CFT <3 seconds to digits. Temperature gradient warm to warm; no increase in warmth to right 2nd digit. +1 pitting edema noted to lower extremity from tibial tuberosity extending into digits. Neuro: Unable to assess. Derm: Superficial ulceration noted to dorsum of right second digit measuring approximately 1.5 x 1 x 0.1 cm - ulcer is noted to have a dry, granular and epithelializing base with minimal hyperkeratosis periwound; no drainage; no flucutance; no purulence; no malodor present. Dusky changes noted periwound. Superficial ulcers of varying stages noted circumfirentially to lower leg b/l. Skin diffusely dry b/l. Ortho: Pain on palpation to right 2nd digit wound. - Neurological Exam Neurological Exam: Alert, Awake, Oriented x3 - Psychiatric Exam Psychiatric exam: Normal Affect, Normal Mood Assessment and Plan - Assessment and Plan (Free Text) Assessment: 58 y/o male PMHx including ETOH abuse seen and evaluated for right 2nd digit wound Plan: Patient seen and evaluated with Dr. Ballesteros Chart, labs and vitals reviewed Discussed with attending, Dr. Ballesteros Afebrile, WBC 2.4 Right foot XR: non-specific findings Ordered MRI of the Right foot Wounds appears stable at this time, will continue to monitor Wounds cleansed with saline and dressed with betadine, DSD Activity: WBAT RLE Podiatry will continue to follow while in house
[2018-11-16] MEDS: Metoprolol Succinate 50 mg XL Tab PO SCH (10:15)
[2018-11-16] MEDS: Pantoprazole 40 mg EC Tab PO SCH (10:16)
[2018-11-16] MEDS: Multivitamin With Minerals Tab PO SCH (10:16)
[2018-11-16] MEDS ORDERED: Potassium Chloride 20 mEq ER Tab PO ONE (14:00)
--- NOTE | 2018-11-16 16:40 | CP.PCM.CON ---
History of Present Illness - History of Present Illness History of Present Illness: 58 year old male patient PMHx ETOH abuse, chronic right leg and foot pain He presented to ED s/p seizure and ETOH intoxication. Patient states he noticed the wound on top of his right 2nd digit possibly 1 week ago; reports pain localized to wound site. Denies any prior trauma to digit. Denies seeing any drainage from wound. Review of Systems - Review of Systems All systems: reviewed and no additional remarkable complaints except - Constitutional Constitutional: As Per HPI - EENT Eyes: absent: As Per HPI, Blind Spots, Blurred Vision, Change in Vision, Decreased Night Vision, Diplopia, Discharge, Dry Eye, Exophthalmos, Floaters, Irritation, Itchy Eyes, Loss of Peripheral Vision, Pain, Photophobia, Requires Corrective Lenses, Sees Flashes, Spots in Vision, Tunnel Vision, Other Visual Disturbances, Loss of Vision, Other Ears: absent: As Per HPI, Decreased Hearing, Ear Discharge, Ear Pain, Tinnitus, Abnormal Hearing, Disequilibrium, Dizziness, Other Nose/Mouth/Throat: absent: As Per HPI, Epistaxis, Nasal Congestion, Nasal Discharge, Nasal Obstruction, Nasal Trauma, Nose Pain, Post Nasal Drip, Sinus Pain, Sinus Pressure, Bleeding Gums, Change in Voice, Dental Pain, Dry Mouth, Dysphagia, Halitosis, Hoarsness, Lip Swelling, Mouth Lesions, Mouth Pain, Odynophagia, Sore Throat, Throat Swelling, Tongue Swelling, Facial Pain, Neck Pain, Neck Mass, Other - Cardiovascular Cardiovascular: absent: As Per HPI, Acrocyanosis, Chest Pain, Chest Pain at Rest, Chest Pain with Activity, Claudication, Diaphoresis, Dyspnea, Dyspnea on Exertion, Edema, Irregular Heart Rhythm, Pain Radiating to Arm/Neck/Jaw, Leg Edema, Leg Ulcers, Lightheadedness, Orthopnea, Palpitations, Paroxysmal Noctur nal Dyspnea, Pedal Edema, Radiating Pain, Rapid Heart Rate, Slow Heart Rate, Syncope, Other - Respiratory Respiratory: absent: As Per HPI, Cough, Dyspnea, Hemoptysis, Dyspnea on Exertion, Wheezing, Snoring, Stridor, Pain on Inspiration, Chest Congestion, Excessive Mucous Production, Change in Mucous Color, Pain with Coughing, Other - Gastrointestinal Gastrointestinal: absent: As Per HPI, Abdominal Pain, Belching, Bloating, Change in Bowel Habits, Change in Stool Character, Coffee Ground Emesis, Constipation, Cramping, Diarrhea, Dyspepsia, Dysphagia, Early Satiety, Excessive Flatus, Fecal Incontinence, Heartburn, Hematemesis, Hematochezia, Loose Stools, Melena, Nausea, Odynophagia, Temesmus, Vomiting, Other - Genitourinary Genitourinary: absent: As Per HPI, Change in Urinary Stream, Difficulty Urinating, Dysuria, Flank Pain, Hematuria, Pyuria, Nocturia, Urinary Incontinen ce, Urinary Frequency, Urinary Hesitance, Urinary Urgency, Voiding Freq/Small Amts, Freq UTI, Hx Renal/Bladder Calculi, Hx /Renal Surgery, Bladder Distension, Other - Musculoskeletal Musculoskeletal: As Per HPI - Integumentary Integumentary: As Per HPI, Skin Pain, Wounds - Neurological Neurological: As Per HPI - Psychiatric Psychiatric: As Per HPI - Endocrine Endocrine: absent: As Per HPI, Change in Body Appearance, Change in Libido, Cold Intolorance, Deepening of Voice, Excessive Sweating, Fatigue, Flushing, Heat Intolorance, Increase in Ring/Shoe/Hat Size, Palpitations, Polydipsia, Polyphagia, Polyuria, Other - Hematologic/Lymphatic Hematologic: absent: As Per HPI, Easy Bleeding, Easy Bruising, Lymphadenopathy, Other Past Patient History - Infectious Disease Hx of Infectious Diseases: None - Past Medical History & Family History Past Medical History?: Yes - Past Social History Smoking Status: Never Smoked - CARDIAC Hx Cardiac Disorders: Yes (CAD,) Hx Hypertension: Yes - PULMONARY Hx Bronchitis: Yes - NEUROLOGICAL Hx Seizures: Yes - HEENT Hx HEENT Problems: No - RENAL Hx Chronic Kidney Disease: No - ENDOCRINE/METABOLIC Hx Diabetes Mellitus Type 2: Yes - INTEGUMENTARY Hx Dermatological Problems: Yes Hx Cellulitis: Yes - MUSCULOSKELETAL/RHEUMATOLOGICAL Hx Arthritis: Yes Hx Rheumatoid Arthritis: Yes - GASTROINTESTINAL Hx Gall Bladder Disease: Yes (s/p cholecystectomy) Hx Gastritis: Yes - PSYCHIATRIC Hx Anxiety: Yes Hx Depression: Yes Hx Post Traumatic Stress Disorder: Yes Hx Substance Use: No - SURGICAL HISTORY Hx Cholecystectomy: Yes - ANESTHESIA Hx Anesthesia: Yes Hx Anesthesia Reactions: No Hx Malignant Hyperthermia: No Meds Allergies/Adverse Reactions: Allergies Allergy/AdvReac Type Severity Reaction Status Date / Time No Known Allergies Allergy Verified 11/14/18 18:10 - Medications Medications: Current Medications Folic Acid (Folic Acid) 1 mg PO DAILY [facility] Last Admin: 11/16/18 10:16 Dose: 1 mg Heparin Sodium (Porcine) (Heparin) 5,000 units SC Q12 [facility] Last Admin: 11/16/18 10:16 Dose: 5,000 units Piperacillin Sod/Tazobactam Sod (Zosyn 3.375 Gm Iv Premix) 3.375 gm in 50 mls @ 100 mls/hr IVPB Q6H [facility]; Protocol Last Admin: 11/16/18 16:09 Dose: 100 mls/hr Metoprolol Succinate (Toprol Xl) 50 mg PO DAILY [facility] Last Admin: 11/16/18 10:15 Dose: 50 mg Multivitamins/Minerals (Therapeutic-M Tab) 1 tab PO DAILY [facility] Last Admin: 11/16/18 10:16 Dose: 1 tab Pantoprazole Sodium (Protonix Ec Tab) 40 mg PO DAILY [facility] Last Admin: 11/16/18 10:16 Dose: 40 mg Phenytoin Sodium (Dilantin) 100 mg PO TID [facility] Last Admin: 11/16/18 14:19 Dose: 100 mg Thiamine HCl (Vitamin B1 Tab) 100 mg PO DAILY [facility] Last Admin: 11/16/18 10:16 Dose: 100 mg Topiramate (Topamax) 25 mg PO TID [facility] Last Admin: 11/16/18 14:18 Dose: 25 mg Physical Exam - Constitutional Appears: Non-toxic, Chronically Ill - Head Exam Head Exam: NORMOCEPHALIC - Eye Exam Eye Exam: absent: Scleral icterus - ENT Exam ENT Exam: Mucous Membranes Dry - Neck Exam Neck exam: Negative for: Lymphadenopathy - Respiratory Exam Respiratory Exam: Decreased Breath Sounds - Cardiovascular Exam Cardiovascular Exam: REGULAR RHYTHM - GI/Abdominal Exam GI & Abdominal Exam: Diminished Bowel Sounds, Soft - Rectal Exam Rectal Exam: Deferred - Exam Exam: NORMAL INSPECTION - Extremities Exam Extremities exam: Positive for: pedal edema Additional comments: LE focused Vasc: DP and PT pulses palpable 2/4. CFT <3 seconds to digits. Temperature gradient warm to warm; no increase in warmth to right 2nd digit. +1 pitting edema noted to lower extremity from tibial tuberosity extending into digits. Neuro: Unable to assess. Derm: Superficial ulceration noted to dorsum of right second digit measuring approximately 1.5 x 1 x 0.1 cm - ulcer is noted to have a dry, granular and epithelializing base with minimal hyperkeratosis periwound; no drainage; no fl ucutance; no purulence; no malodor present. Dusky changes noted periwound. Superficial ulcers of varying stages noted circumfirentially to lower leg b/l. Skin diffusely dry b/l. Ortho: Pain on palpation to right 2nd digit wound. - Back Exam Back exam: absent: CVA tenderness (L), CVA tenderness (R), paraspinal tenderness - Neurological Exam Neurological exam: Alert, CN II-XII Intact, Oriented x3, Reflexes Normal - Psychiatric Exam Psychiatric exam: Depressed, Flat Affect - Skin Skin Exam: Dry Results - Vital Signs Recent Vital Signs: Last Vital Signs Temp 97.8 F 11/16/18 07:15 Pulse 76 11/16/18 08:00 Resp 20 11/16/18 07:15 BP 152/93 H 11/16/18 07:15 Pulse Ox 99 11/16/18 07:15 - Labs Result Diagrams: 11/16/18 08:24 11/16/18 08:24 Labs: Laboratory Results - last 24 hr 11/15/18 11/16/18 11/16/18 11:23 06:44 08:24 WBC 2.4 L RBC 3.57 L Hgb 12.3 Hct 35.9 MCV 100.6 H MCH 34.5 H MCHC 34.3 RDW 15.2 H Plt Count 95 L MPV 7.8 Neut % (Auto) 53.9 Lymph % (Auto) 28.2 Braxton % (Auto) 14.8 H Eos % (Auto) 2.3 Baso % (Auto) 0.8 Neut # (Auto) 1.3 L Lymph # (Auto) 0.7 L Braxton # (Auto) 0.4 Eos # (Auto) 0.1 Baso # (Auto) 0.0 Differential Comment Sodium Potassium Chloride Carbon Dioxide Anion Gap BUN Creatinine Est GFR ( Amer) Est GFR (Non-Af Amer) POC Glucose (mg/dL) 82 85 Random Glucose Calcium Total Bilirubin AST ALT Alkaline Phosphatase Total Protein Albumin Globulin Albumin/Globulin Ratio 11/16/18 11/16/18 08:24 11:22 WBC RBC Hgb Hct MCV MCH MCHC RDW Plt Count MPV Neut % (Auto) Lymph % (Auto) Braxton % (Auto) Eos % (Auto) Baso % (Auto) Neut # (Auto) Lymph # (Auto) Braxton # (Auto) Eos # (Auto) Baso # (Auto) Differential Comment Sodium 137 Potassium 3.2 L Chloride 99 Carbon Dioxide 27 Anion Gap 14 BUN 7 L Creatinine 0.8 Est GFR ( Amer) > 60 Est GFR (Non-Af Amer) > 60 POC Glucose (mg/dL) 100 Random Glucose 102 Calcium 8.9 Total Bilirubin 1.5 H AST 90 H D ALT 23 Alkaline Phosphatase 80 Total Protein 8.2 Albumin 4.3 Globulin 4.0 H Albumin/Globulin Ratio 1.1 Assessment & Plan (1) Alcoholic intoxication Status: Acute (2) Alcoholism /alcohol abuse Status: Acute - Assessment and Plan (Free Text) Assessment: cellulitis right foot and leg consider MRI podiatry on board cont wound care await cultures IV antibiotics
--- NOTE | 2018-11-16 18:06 | CP.PCM.PN ---
Subjective - Date & Time of Evaluation Date of Evaluation: 11/16/18 Time of Evaluation: 12:00 - Subjective Subjective: CONDITION SAME. NO SEIZURES. CH CELLULITIS OF LEGS AND ULCER. Objective - Vital Signs/Intake and Output Vital Signs (last 24 hours): Temp Pulse Resp BP Pulse Ox 98.5 F 69 20 132/82 99 11/16/18 16:00 11/16/18 16:00 11/16/18 16:00 11/16/18 16:00 11/16/18 16:00 Intake and Output: 11/16/18 11/16/18 06:59 18:59 Intake Total 750 Output Total 1450 Balance -700 - Medications Medications: Current Medications Folic Acid (Folic Acid) 1 mg PO DAILY [facility] Last Admin: 11/16/18 10:16 Dose: 1 mg Heparin Sodium (Porcine) (Heparin) 5,000 units SC Q12 [facility] Last Admin: 11/16/18 10:16 Dose: 5,000 units Piperacillin Sod/Tazobactam Sod (Zosyn 3.375 Gm Iv Premix) 3.375 gm in 50 mls @ 100 mls/hr IVPB Q6H [facility]; Protocol Last Admin: 11/16/18 16:09 Dose: 100 mls/hr Metoprolol Succinate (Toprol Xl) 50 mg PO DAILY [facility] Last Admin: 11/16/18 10:15 Dose: 50 mg Multivitamins/Minerals (Therapeutic-M Tab) 1 tab PO DAILY [facility] Last Admin: 11/16/18 10:16 Dose: 1 tab Pantoprazole Sodium (Protonix Ec Tab) 40 mg PO DAILY [facility] Last Admin: 11/16/18 10:16 Dose: 40 mg Phenytoin Sodium (Dilantin) 100 mg PO TID [facility] Last Admin: 11/16/18 17:30 Dose: 100 mg Thiamine HCl (Vitamin B1 Tab) 100 mg PO DAILY [facility] Last Admin: 11/16/18 10:16 Dose: 100 mg Topiramate (Topamax) 25 mg PO TID [facility] Last Admin: 11/16/18 17:30 Dose: 25 mg - Labs Labs: 11/16/18 08:24 11/16/18 08:24 PT 12.0 SECONDS (9.7-12.2) 11/14/18 19:39 INR 1.1 11/14/18 19:39 APTT 31 SECONDS (21-34) 11/14/18 19:39 - Constitutional Appears: No Acute Distress, Chronically Ill - Eye Exam Eye Exam: PERRL - ENT Exam ENT Exam: Mucous Membranes Moist - Respiratory Exam Respiratory Exam: Clear to Ausculation Bilateral, NORMAL BREATHING PATTERN - Cardiovascular Exam Cardiovascular Exam: REGULAR RHYTHM, +S1, +S2 - GI/Abdominal Exam GI & Abdominal Exam: Soft, Normal Bowel Sounds - Extremities Exam Extremities Exam: Full ROM, Normal Capillary Refill, Normal Inspection. absent: Joint Swelling, Pedal Edema - Back Exam Back Exam: NORMAL INSPECTION - Neurological Exam Neurological Exam: Alert, Awake, CN II-XII Intact, Normal Gait, Oriented x3 - Psychiatric Exam Psychiatric exam: Normal Affect, Normal Mood Assessment and Plan - Assessment and Plan (Free Text) Assessment: SAME. Plan: CT PRESENT TREATMENT. DILANTIN PO TID.
[2018-11-17] MEDS: Piperacill/Tazo 3.375gm in Dex 3.375 GM/50 ML BAG IVPB SCH ×4 (03:46→21:31)
[2018-11-17] MEDS: Multivitamin With Minerals Tab PO SCH (10:33)
[2018-11-17] MEDS: Metoprolol Succinate 50 mg XL Tab PO SCH (10:33)
[2018-11-17] MEDS: Pantoprazole 40 mg EC Tab PO SCH (10:33)
--- NOTE | 2018-11-17 11:01 | CP.PCM.CON ---
<Paul Rose - Last Filed: 11/17/18 18:37> History of Present Illness - History of Present Illness History of Present Illness: Neurology Consult Note for Dr. Nicole HPI: Patient is a 58 year old male with history of seizures and alcohol abuse who presents for seizure witnessed by 3 days ago prior to arrival to ED. Patient states he has a history of seizures, for which he has been taking Dilantin and Phenobarbital at home. Patient is currently homeless, recently was at [facility] for osteomyelitis until he was discharged 6 months ago. He states he sometimes stays at his sister's home, but usually is on the streets in his wheelchair. He currently states that he has been compliant with his medications, however admits to history of daily alcohol use. He denies headaches, fevers, chills, dizziness, lightheadedness, confusion, changes in hearing or vision. He has a chronic wound on his right foot with pain to the area, however denies other pain. PMH: seizures, alcohol abuse. As per prior note, anxiety, depression, diabetes, HTN, RA PSH: cholecystectomy Home meds: Dilantin, Phenobarbital Allergies: NKDA Social hx: denies tobacco use, (+) daily ETOH use. Wheelchair bound, homeless. Review of Systems - Constitutional Constitutional: Frequent Falls. absent: Chills, Fever, Headache - EENT Eyes: absent: Change in Vision Ears: absent: Decreased Hearing Nose/Mouth/Throat: absent: Sore Throat - Cardiovascular Cardiovascular: absent: Chest Pain, Dyspnea - Respiratory Respiratory: absent: Cough, Dyspnea - Gastrointestinal Gastrointestinal: absent: Abdominal Pain Past Patient History - Infectious Disease Hx of Infectious Diseases: None - Past Medical History & Family History Past Medical History?: Yes - Past Social History Smoking Status: Never Smoked - CARDIAC Hx Cardiac Disorders: Yes (CAD,) Hx Hypertension: Yes - PULMONARY Hx Bronchitis: Yes - NEUROLOGICAL Hx Seizures: Yes - HEENT Hx HEENT Problems: No - RENAL Hx Chronic Kidney Disease: No - ENDOCRINE/METABOLIC Hx Diabetes Mellitus Type 2: Yes - INTEGUMENTARY Hx Dermatological Problems: Yes Hx Cellulitis: Yes - MUSCULOSKELETAL/RHEUMATOLOGICAL Hx Arthritis: Yes Hx Rheumatoid Arthritis: Yes - GASTROINTESTINAL Hx Gall Bladder Disease: Yes (s/p cholecystectomy) Hx Gastritis: Yes - PSYCHIATRIC Hx Anxiety: Yes Hx Depression: Yes Hx Post Traumatic Stress Disorder: Yes Hx Substance Use: No - SURGICAL HISTORY Hx Cholecystectomy: Yes - ANESTHESIA Hx Anesthesia: Yes Hx Anesthesia Reactions: No Hx Malignant Hyperthermia: No Meds Allergies/Adverse Reactions: Allergies Allergy/AdvReac Type Severity Reaction Status Date / Time No Known Allergies Allergy Verified 11/14/18 18:10 - Medications Medications: Current Medications Folic Acid (Folic Acid) 1 mg PO DAILY [facility] Last Admin: 11/17/18 10:33 Dose: 1 mg Heparin Sodium (Porcine) (Heparin) 5,000 units SC Q12 [facility] Last Admin: 11/17/18 10:33 Dose: 5,000 units Piperacillin Sod/Tazobactam Sod (Zosyn 3.375 Gm Iv Premix) 3.375 gm in 50 mls @ 100 mls/hr IVPB Q6H [facility]; Protocol Last Admin: 11/17/18 10:34 Dose: 100 mls/hr Metoprolol Succinate (Toprol Xl) 50 mg PO DAILY [facility] Last Admin: 11/17/18 10:33 Dose: 50 mg Multivitamins/Minerals (Therapeutic-M Tab) 1 tab PO DAILY [facility] Last Admin: 11/17/18 10:33 Dose: 1 tab Pantoprazole Sodium (Protonix Ec Tab) 40 mg PO DAILY [facility] Last Admin: 11/17/18 10:33 Dose: 40 mg Phenytoin Sodium (Dilantin) 100 mg PO TID [facility] Last Admin: 11/17/18 10:33 Dose: 100 mg Thiamine HCl (Vitamin B1 Tab) 100 mg PO DAILY [facility] Last Admin: 11/17/18 10:33 Dose: 100 mg Topiramate (Topamax) 25 mg PO TID [facility] Last Admin: 11/17/18 10:33 Dose: 25 mg Physical Exam - Constitutional Appears: No Acute Distress - Head Exam Head Exam: ATRAUMATIC, NORMOCEPHALIC - Eye Exam Eye Exam: EOMI, PERRL. absent: Nystagmus Pupil Exam: PERRL - ENT Exam ENT Exam: Mucous Membranes Moist - Neck Exam Neck exam: Positive for: Full Rom - Respiratory Exam Respiratory Exam: Clear to Auscultation Bilateral, NORMAL BREATHING PATTERN - Cardiovascular Exam Cardiovascular Exam: REGULAR RHYTHM, +S1, +S2 - GI/Abdominal Exam GI & Abdominal Exam: absent: Tenderness - Extremities Exam Extremities exam: Negative for: calf tenderness, pedal edema - Neurological Exam Neurological exam: Alert, CN II-XII Intact, Oriented x3, Reflexes Normal Additional comments: Strength 5/5 in upper extremities Left lower extremity 5/5 right lower extremity: 5/5 Left foot wrapped Sensation intact in upper extremities Sensation intact in left lower extremity RLE sensation limited since foot wrapped from wound. Patient is unstable to stand by himself, unable to check gait. Able to do finger to nose Unable to do heel to carrero on right side given right foot wound Unable to assess Romberg - Psychiatric Exam Psychiatric exam: Normal Affect, Normal Mood - Skin Additional comments: Right foot wrapped - chronic wound Results - Vital Signs Recent Vital Signs: Last Vital Signs Temp 98.0 F 11/17/18 07:05 Pulse 65 11/17/18 08:00 Resp 18 11/17/18 07:05 BP 147/89 11/17/18 07:05 Pulse Ox 100 11/17/18 07:05 - Labs Result Diagrams: 11/16/18 08:24 11/16/18 08:24 Labs: Laboratory Results - last 24 hr 11/16/18 11/16/18 11/16/18 11:22 18:06 21:16 POC Glucose (mg/dL) 100 133 H 110 11/17/18 06:33 POC Glucose (mg/dL) 101 Assessment & Plan - Assessment and Plan (Free Text) Assessment: 58 year old homeless male with history of alcohol abuse and seizure disorder who presents for witnessed seizure. Plan: Seizure disorder Discontinue Topamax Follow up Dilantin and Phenobarbital levels Phenobarbital 32.4mg PO BID Dilantin 100mg PO TID Fall risk precautions Alcohol use disorder Folic acid MV Thiamine Case discussed with Dr. Corey Rose, PGY1 <Wellington Nicole - Last Filed: 11/17/18 21:32> Meds - Medications Medications: Current Medications Folic Acid (Folic Acid) 1 mg PO DAILY [facility] Last Admin: 11/17/18 10:33 Dose: 1 mg Heparin Sodium (Porcine) (Heparin) 5,000 units SC Q12 [facility] Last Admin: 11/17/18 10:33 Dose: 5,000 units Piperacillin Sod/Tazobactam Sod (Zosyn 3.375 Gm Iv Premix) 3.375 gm in 50 mls @ 100 mls/hr IVPB Q6H [facility]; Protocol Last Admin: 11/17/18 15:45 Dose: 100 mls/hr Metoprolol Succinate (Toprol Xl) 50 mg PO DAILY [facility] Last Admin: 11/17/18 10:33 Dose: 50 mg Multivitamins/Minerals (Therapeutic-M Tab) 1 tab PO DAILY [facility] Last Admin: 11/17/18 10:33 Dose: 1 tab Pantoprazole Sodium (Protonix Ec Tab) 40 mg PO DAILY [facility] Last Admin: 11/17/18 10:33 Dose: 40 mg Phenobarbital (Phenobarbital Tab) 32.4 mg PO BID [facility] Last Admin: 11/17/18 17:33 Dose: 32.4 mg Phenytoin Sodium (Dilantin) 100 mg PO TID [facility] Last Admin: 11/17/18 17:33 Dose: 100 mg Thiamine HCl (Vitamin B1 Tab) 100 mg PO DAILY [facility] Last Admin: 11/17/18 10:33 Dose: 100 mg Results - Vital Signs Recent Vital Signs: Last Vital Signs Temp 98.1 F 11/17/18 15:20 Pulse 74 11/17/18 16:00 Resp 20 11/17/18 15:20 BP 123/86 11/17/18 15:20 Pulse Ox 100 11/17/18 15:20 - Labs Result Diagrams: 11/16/18 08:24 11/16/18 08:24 Labs: Laboratory Results - last 24 hr 11/17/18 11/17/18 11/17/18 06:33 11:08 16:45 POC Glucose (mg/dL) 101 107 Phenytoin 3.9 L 11/17/18 17:08 POC Glucose (mg/dL) 107 Phenytoin Assessment & Plan - Assessment and Plan (Free Text) Plan: I examined the patient independently and formulated the assessment and plan All medical record entries made by the Resident were at my direction and personally dictated by me. I have reviewed the chart and agree that the record accurately reflects my personal performance of the history, physical exam, medical decision making, and the department course for this patient. I have also personally directed, reviewed, and agree with the discharge instructions and disposition. Mr. Pina has a lifelong history of epilepsy and has been maintained on dilantin and phenobarbital. It may be exacerbated by alcohol but sudden cessation of these mds will result in status. We may tapr them on outpatient basis. For now we will continye medications, Dr. Nicole Neurology
--- NOTE | 2018-11-17 12:13 | CP.PCM.PN ---
Subjective - Date & Time of Evaluation Date of Evaluation: 11/17/18 Time of Evaluation: 08:00 - Subjective Subjective: no fever no new positive cultures Objective - Vital Signs/Intake and Output Vital Signs (last 24 hours): Temp Pulse Resp BP Pulse Ox 98.0 F 65 18 147/89 100 11/17/18 07:05 11/17/18 08:00 11/17/18 07:05 11/17/18 07:05 11/17/18 07:05 Intake and Output: 11/17/18 11/17/18 06:59 18:59 Intake Total 1010 Output Total 1175 Balance -165 - Medications Medications: Current Medications Folic Acid (Folic Acid) 1 mg PO DAILY [facility] Last Admin: 11/17/18 10:33 Dose: 1 mg Heparin Sodium (Porcine) (Heparin) 5,000 units SC Q12 [facility] Last Admin: 11/17/18 10:33 Dose: 5,000 units Piperacillin Sod/Tazobactam Sod (Zosyn 3.375 Gm Iv Premix) 3.375 gm in 50 mls @ 100 mls/hr IVPB Q6H [facility]; Protocol Last Admin: 11/17/18 10:34 Dose: 100 mls/hr Metoprolol Succinate (Toprol Xl) 50 mg PO DAILY [facility] Last Admin: 11/17/18 10:33 Dose: 50 mg Multivitamins/Minerals (Therapeutic-M Tab) 1 tab PO DAILY [facility] Last Admin: 11/17/18 10:33 Dose: 1 tab Pantoprazole Sodium (Protonix Ec Tab) 40 mg PO DAILY [facility] Last Admin: 11/17/18 10:33 Dose: 40 mg Phenytoin Sodium (Dilantin) 100 mg PO TID [facility] Last Admin: 11/17/18 10:33 Dose: 100 mg Thiamine HCl (Vitamin B1 Tab) 100 mg PO DAILY [facility] Last Admin: 11/17/18 10:33 Dose: 100 mg Topiramate (Topamax) 25 mg PO TID [facility] Last Admin: 11/17/18 10:33 Dose: 25 mg - Labs Labs: 11/16/18 08:24 11/16/18 08:24 PT 12.0 SECONDS (9.7-12.2) 11/14/18 19:39 INR 1.1 11/14/18 19:39 APTT 31 SECONDS (21-34) 11/14/18 19:39 - Constitutional Appears: Well - Head Exam Head Exam: ATRAUMATIC, NORMAL INSPECTION, NORMOCEPHALIC - Eye Exam Eye Exam: EOMI, Normal appearance, PERRL Pupil Exam: NORMAL ACCOMODATION, PERRL - ENT Exam ENT Exam: Mucous Membranes Moist, Normal Exam - Neck Exam Neck Exam: Full ROM, Normal Inspection. absent: Lymphadenopathy - Respiratory Exam Respiratory Exam: Clear to Ausculation Bilateral, NORMAL BREATHING PATTERN - Cardiovascular Exam Cardiovascular Exam: REGULAR RHYTHM, +S1, +S2. absent: Murmur - GI/Abdominal Exam GI & Abdominal Exam: Soft, Normal Bowel Sounds. absent: Tenderness - Rectal Exam Rectal Exam: NORMAL INSPECTION - Extremities Exam Extremities Exam: Full ROM, Normal Capillary Refill, Pedal Edema, Tenderness. absent: Joint Swelling, Normal Inspection - Back Exam Back Exam: NORMAL INSPECTION - Neurological Exam Neurological Exam: Alert, Awake, CN II-XII Intact, Normal Gait, Oriented x3 - Psychiatric Exam Psychiatric exam: Normal Affect, Normal Mood - Skin Skin Exam: Dry, Intact, Normal Color, Warm Assessment and Plan (1) Alcoholic intoxication Status: Acute (2) Alcoholism /alcohol abuse Status: Acute - Assessment and Plan (Free Text) Assessment: co nt iv then po rx follow up podiatry
--- NOTE | 2018-11-17 12:15 | CP.PCM.PN ---
Subjective - Date & Time of Evaluation Date of Evaluation: 11/17/18 Time of Evaluation: 12:13 - Subjective Subjective: CONDITION REMAINS SAME. WENT FOR MRI. CH CELLULTIS LEGS PRESENT. AFEBRILE. Objective - Vital Signs/Intake and Output Vital Signs (last 24 hours): Temp Pulse Resp BP Pulse Ox 98.0 F 65 18 147/89 100 11/17/18 07:05 11/17/18 08:00 11/17/18 07:05 11/17/18 07:05 11/17/18 07:05 Intake and Output: 11/17/18 11/17/18 06:59 18:59 Intake Total 1010 Output Total 1175 Balance -165 - Medications Medications: Current Medications Folic Acid (Folic Acid) 1 mg PO DAILY [facility] Last Admin: 11/17/18 10:33 Dose: 1 mg Heparin Sodium (Porcine) (Heparin) 5,000 units SC Q12 [facility] Last Admin: 11/17/18 10:33 Dose: 5,000 units Piperacillin Sod/Tazobactam Sod (Zosyn 3.375 Gm Iv Premix) 3.375 gm in 50 mls @ 100 mls/hr IVPB Q6H [facility]; Protocol Last Admin: 11/17/18 10:34 Dose: 100 mls/hr Metoprolol Succinate (Toprol Xl) 50 mg PO DAILY [facility] Last Admin: 11/17/18 10:33 Dose: 50 mg Multivitamins/Minerals (Therapeutic-M Tab) 1 tab PO DAILY [facility] Last Admin: 11/17/18 10:33 Dose: 1 tab Pantoprazole Sodium (Protonix Ec Tab) 40 mg PO DAILY [facility] Last Admin: 11/17/18 10:33 Dose: 40 mg Phenytoin Sodium (Dilantin) 100 mg PO TID [facility] Last Admin: 11/17/18 10:33 Dose: 100 mg Thiamine HCl (Vitamin B1 Tab) 100 mg PO DAILY [facility] Last Admin: 11/17/18 10:33 Dose: 100 mg Topiramate (Topamax) 25 mg PO TID [facility] Last Admin: 11/17/18 10:33 Dose: 25 mg - Labs Labs: 11/16/18 08:24 11/16/18 08:24 PT 12.0 SECONDS (9.7-12.2) 11/14/18 19:39 INR 1.1 11/14/18 19:39 APTT 31 SECONDS (21-34) 11/14/18 19:39 - Constitutional Appears: No Acute Distress, Chronically Ill - Eye Exam Eye Exam: PERRL - ENT Exam ENT Exam: Mucous Membranes Moist - Neck Exam Neck Exam: Full ROM, Normal Inspection. absent: Lymphadenopathy - Respiratory Exam Respiratory Exam: Clear to Ausculation Bilateral, NORMAL BREATHING PATTERN - Cardiovascular Exam Cardiovascular Exam: REGULAR RHYTHM, +S1, +S2. absent: Murmur - GI/Abdominal Exam GI & Abdominal Exam: Soft, Normal Bowel Sounds. absent: Tenderness - Extremities Exam Extremities Exam: Full ROM, Normal Capillary Refill, Normal Inspection. absent: Joint Swelling, Pedal Edema - Back Exam Back Exam: NORMAL INSPECTION - Neurological Exam Neurological Exam: Alert, Awake, CN II-XII Intact, Normal Gait, Oriented x3 Assessment and Plan - Assessment and Plan (Free Text) Assessment: RT LEG INF. Plan: FOR ANTIBIOTICS.
--- NOTE | 2018-11-17 12:18 | CARD ---
APPROVED REPORT Date of service: 11/14/2018 EKG Measurement Heart [id number] <Conclusion> Normal sinus rhythm Normal ECG
--- NOTE | 2018-11-17 14:39 | MRI ---
MRI right forefoot HISTORY: Evaluate for right 2nd digit osteomyelitis. COMPARISON: None available. TECHNIQUE: Multi-echo multiplanar sequences were performed through the right forefoot without the use of intravenous contrast. FINDINGS: Extensive motion artifact as well as suboptimal patient position markedly limits evaluation. In addition, there is extensive blooming artifact noted at the 1st metatarsal head from surgical change as well as blooming artifact adjacent to the 4th metatarsal bone. Prominent signal abnormality seen within the 2nd digit at the level of the head and mid shaft of the proximal phalanx demonstrating patchy decreased T1 signal and increased STIR signal concerning for acute osteomyelitis. Adjacent prominent reactive edema at the base of the 2nd middle phalanx which may represent developing acute osteomyelitic changes. Additional areas of some patchy increased STIR signal noted at the level the 3rd proximal phalanx, 1st proximal and distal phalanges, and 3rd and 5th metatarsal bones. These areas are nonspecific and evaluation for acute inflammatory and or infectious changes at these levels is limited. Repeat study and or correlation with nuclear medicine study may be helpful if clinically indicated. Probable osteochondral change noted at the base of the 4th metatarsal bone. Increased signal noted at the level of the Lisfranc ligament suggestive for a sprain and or mild partial tear. Clinical correlation. Impression: Extensive motion artifact as well as suboptimal patient position markedly limits evaluation. In addition, there is extensive blooming artifact noted at the 1st metatarsal head from surgical change as well as blooming artifact adjacent to the 4th metatarsal bone. Prominent signal abnormality seen within the 2nd digit at the level of the head and mid shaft of the proximal phalanx demonstrating patchy decreased T1 signal and increased STIR signal concerning for acute osteomyelitis. Adjacent prominent reactive edema at the base of the 2nd middle phalanx which may represent developing acute osteomyelitic changes. Additional areas of some patchy increased STIR signal noted at the level the 3rd proximal phalanx, 1st proximal and distal phalanges, and 3rd and 5th metatarsal bones. These areas are nonspecific and evaluation for acute inflammatory and or infectious changes at these levels is limited. Repeat study and or correlation with nuclear medicine study may be helpful if clinically indicated. Probable osteochondral change noted at the base of the 4th metatarsal bone. Increased signal noted at the level of the Lisfranc ligament suggestive for a sprain and or mild partial tear. Clinical correlation.
--- NOTE | 2018-11-17 19:25 | CP.PCM.PN ---
Subjective - Date & Time of Evaluation Date of Evaluation: 11/17/18 Time of Evaluation: 13:20 - Subjective Subjective: Podiatry Progress Note for Dr. Ballesteros 58M seen and evaluated at bedside with Dr. Ballesteros for right second digit wound. Patient is AAO x 3 and NAD, resting comfortably in bed. Denies any acute overnight events or new pedal complaints. States that pain is well controlled at this time. Denies any recent N/V/F/C/CP/SOB/D Objective - Vital Signs/Intake and Output Vital Signs (last 24 hours): Temp Pulse Resp BP Pulse Ox 98.1 F 74 20 123/86 100 11/17/18 15:20 11/17/18 16:00 11/17/18 15:20 11/17/18 15:20 11/17/18 15:20 Intake and Output: 11/17/18 11/18/18 18:59 06:59 Output Total 200 Balance -200 - Medications Medications: Current Medications Folic Acid (Folic Acid) 1 mg PO DAILY [facility] Last Admin: 11/17/18 10:33 Dose: 1 mg Heparin Sodium (Porcine) (Heparin) 5,000 units SC Q12 [facility] Last Admin: 11/17/18 10:33 Dose: 5,000 units Piperacillin Sod/Tazobactam Sod (Zosyn 3.375 Gm Iv Premix) 3.375 gm in 50 mls @ 100 mls/hr IVPB Q6H [facility]; Protocol Last Admin: 11/17/18 15:45 Dose: 100 mls/hr Metoprolol Succinate (Toprol Xl) 50 mg PO DAILY [facility] Last Admin: 11/17/18 10:33 Dose: 50 mg Multivitamins/Minerals (Therapeutic-M Tab) 1 tab PO DAILY [facility] Last Admin: 11/17/18 10:33 Dose: 1 tab Pantoprazole Sodium (Protonix Ec Tab) 40 mg PO DAILY [facility] Last Admin: 11/17/18 10:33 Dose: 40 mg Phenobarbital (Phenobarbital Tab) 32.4 mg PO BID [facility] Last Admin: 11/17/18 17:33 Dose: 32.4 mg Phenytoin Sodium (Dilantin) 100 mg PO TID [facility] Last Admin: 11/17/18 17:33 Dose: 100 mg Thiamine HCl (Vitamin B1 Tab) 100 mg PO DAILY [facility] Last Admin: 11/17/18 10:33 Dose: 100 mg - Labs Labs: 11/16/18 08:24 11/16/18 08:24 PT 12.0 SECONDS (9.7-12.2) 11/14/18 19:39 INR 1.1 11/14/18 19:39 APTT 31 SECONDS (21-34) 11/14/18 19:39 - Constitutional Appears: Well, Non-toxic, No Acute Distress - Extremities Exam Additional comments: RLE focused exam: Vasc: DP and PT pulses palpable 2/4. CFT <3 seconds to digits. Temperature gradient warm to warm; no increase in warmth to right 2nd digit. +1 pitting edema noted to lower extremity from tibial tuberosity extending into digits. Neuro: Epicritic and protective sensation grossly diminished b/l Derm: Superficial ulceration noted to dorsum of right second digit measuring approximately 1.5 x 1 x 0.1 cm - ulcer is noted to have a dry, granular and epithelializing base with minimal hyperkeratosis periwound; no drainage; no flucutance; no purulence; no malodor present. No other clinical signs of inf ection Dusky changes noted periwound. Superficial ulcers of varying stages noted circumfirentially to lower leg b/l. Skin diffusely dry b/l. Ortho: Pain on palpation to right 2nd digit wound. No other gross deformities noted - Neurological Exam Neurological Exam: Alert, Awake, Oriented x3 - Psychiatric Exam Psychiatric exam: Normal Affect, Normal Mood Assessment and Plan - Assessment and Plan (Free Text) Assessment: 58M seen and evaluated at bedside with Dr. Ballesteros for right second digit wound Plan: Patient seen and evaluated with Dr. Ballesteros Afebrile, absent leukocytosis Continue IV abx per ID RLE MRI: Acute osteomyelitis of right second digit Right foot dressed with betadine, DSD Will discuss with Dr. Ballesteros for probable OR on 11/19 for amputation of second digit Podiatry will continue to follow while patient in house
[2018-11-18] MEDS: Piperacill/Tazo 3.375gm in Dex 3.375 GM/50 ML BAG IVPB SCH ×4 (05:00→22:19)
[2018-11-18] MEDS: Pantoprazole 40 mg EC Tab PO SCH (09:16)
[2018-11-18] MEDS: Multivitamin With Minerals Tab PO SCH (09:16)
[2018-11-18] MEDS: Metoprolol Succinate 50 mg XL Tab PO SCH (09:19)
--- NOTE | 2018-11-18 12:47 | CP.PCM.PN ---
Subjective - Date & Time of Evaluation Date of Evaluation: 11/18/18 Time of Evaluation: 12:45 - Subjective Subjective: RT 2ND [facility]LIN GANGRENE. Objective - Vital Signs/Intake and Output Vital Signs (last 24 hours): Temp Pulse Resp BP Pulse Ox 97.4 F L 69 18 122/81 100 11/18/18 07:00 11/18/18 12:36 11/18/18 07:00 11/18/18 07:00 11/18/18 07:00 - Medications Medications: Current Medications Folic Acid (Folic Acid) 1 mg PO DAILY [facility] Last Admin: 11/18/18 09:16 Dose: 1 mg Piperacillin Sod/Tazobactam Sod (Zosyn 3.375 Gm Iv Premix) 3.375 gm in 50 mls @ 100 mls/hr IVPB Q6H [facility]; Protocol Last Admin: 11/18/18 10:55 Dose: 100 mls/hr Metoprolol Succinate (Toprol Xl) 50 mg PO DAILY [facility] Last Admin: 11/18/18 09:19 Dose: 50 mg Multivitamins/Minerals (Therapeutic-M Tab) 1 tab PO DAILY [facility] Last Admin: 11/18/18 09:16 Dose: 1 tab Pantoprazole Sodium (Protonix Ec Tab) 40 mg PO DAILY [facility] Last Admin: 11/18/18 09:16 Dose: 40 mg Phenobarbital (Phenobarbital Tab) 32.4 mg PO BID [facility] Last Admin: 11/18/18 09:15 Dose: 32.4 mg Phenytoin Sodium (Dilantin) 100 mg PO TID [facility] Last Admin: 11/18/18 09:16 Dose: 100 mg Thiamine HCl (Vitamin B1 Tab) 100 mg PO DAILY [facility] Last Admin: 11/18/18 09:16 Dose: 100 mg - Labs Labs: 11/16/18 08:24 11/16/18 08:24 PT 12.0 SECONDS (9.7-12.2) 11/14/18 19:39 INR 1.1 11/14/18 19:39 APTT 31 SECONDS (21-34) 11/14/18 19:39 - Constitutional Appears: No Acute Distress, Chronically Ill - Eye Exam Eye Exam: PERRL - ENT Exam ENT Exam: Mucous Membranes Moist - Respiratory Exam Respiratory Exam: Clear to Ausculation Bilateral, NORMAL BREATHING PATTERN - Cardiovascular Exam Cardiovascular Exam: REGULAR RHYTHM, +S1, +S2 - GI/Abdominal Exam GI & Abdominal Exam: Soft, Normal Bowel Sounds - Extremities Exam Extremities Exam: Full ROM, Normal Capillary Refill, Normal Inspection. absent: Joint Swelling, Pedal Edema - Back Exam Back Exam: NORMAL INSPECTION Assessment and Plan - Assessment and Plan (Free Text) Assessment: MEDICALLY STABLE. Plan: CLEARED FOR SURGERY.
--- NOTE | 2018-11-18 13:36 | CP.PCM.PN ---
Subjective - Date & Time of Evaluation Date of Evaluation: 11/18/18 Time of Evaluation: 13:33 - Subjective Subjective: Neurology Progress note Patient seen and examined at bedside. He has no complaints currently. He has had no seizures since his hospitalization. He continues to receive treatment for his leg infection. He denies headache, lightheadedness, dizziness, vision changes, abdominal pain, chest pain, nausea, vomiting. Objective - Vital Signs/Intake and Output Vital Signs (last 24 hours): Temp Pulse Resp BP Pulse Ox 97.4 F L 69 18 122/81 100 11/18/18 07:00 11/18/18 12:36 11/18/18 07:00 11/18/18 07:00 11/18/18 07:00 - Medications Medications: Current Medications Folic Acid (Folic Acid) 1 mg PO DAILY [facility] Last Admin: 11/18/18 09:16 Dose: 1 mg Piperacillin Sod/Tazobactam Sod (Zosyn 3.375 Gm Iv Premix) 3.375 gm in 50 mls @ 100 mls/hr IVPB Q6H [facility]; Protocol Last Admin: 11/18/18 10:55 Dose: 100 mls/hr Metoprolol Succinate (Toprol Xl) 50 mg PO DAILY [facility] Last Admin: 11/18/18 09:19 Dose: 50 mg Multivitamins/Minerals (Therapeutic-M Tab) 1 tab PO DAILY [facility] Last Admin: 11/18/18 09:16 Dose: 1 tab Pantoprazole Sodium (Protonix Ec Tab) 40 mg PO DAILY [facility] Last Admin: 11/18/18 09:16 Dose: 40 mg Phenobarbital (Phenobarbital Tab) 32.4 mg PO BID [facility] Last Admin: 11/18/18 09:15 Dose: 32.4 mg Phenytoin Sodium (Dilantin) 100 mg PO TID [facility] Last Admin: 11/18/18 13:24 Dose: 100 mg Thiamine HCl (Vitamin B1 Tab) 100 mg PO DAILY [facility] Last Admin: 11/18/18 09:16 Dose: 100 mg - Labs Labs: 11/16/18 08:24 11/16/18 08:24 PT 12.0 SECONDS (9.7-12.2) 11/14/18 19:39 INR 1.1 11/14/18 19:39 APTT 31 SECONDS (21-34) 11/14/18 19:39 - Constitutional Appears: Well, No Acute Distress - Head Exam Head Exam: ATRAUMATIC, NORMOCEPHALIC - Eye Exam Eye Exam: EOMI, PERRL - ENT Exam ENT Exam: Mucous Membranes Dry - Neck Exam Neck Exam: Full ROM - Respiratory Exam Respiratory Exam: NORMAL BREATHING PATTERN - Cardiovascular Exam Cardiovascular Exam: REGULAR RHYTHM, +S1, +S2 - GI/Abdominal Exam GI & Abdominal Exam: Soft, Normal Bowel Sounds - Extremities Exam Additional comments: Right foot wrapped secondary to wounds. - Neurological Exam Neurological Exam: Alert, Awake, CN II-XII Intact, Oriented x3, Reflexes Normal Additional comments: Strength 5/5 in upper and lower extremities Sensation intact. RLE wound Able to do finger to nose - Psychiatric Exam Psychiatric exam: Normal Affect, Normal Mood Assessment and Plan - Assessment and Plan (Free Text) Assessment: 58 year old homeless male with history of alcohol abuse and seizure disorder who presents for witnessed seizure. Plan: Seizure disorder Dilantin level 3.9 low (goal between 10-20), repeat Dilantin levels on 11/20/18 Load with Dilantin 1000mg IV, continue with Dilantin 300mg BID f/u Phenobarbital levels Phenobarbital 32.4mg PO BID Fall risk precautions Given history of epilepsy, patient to continue Dilantin and Phenobarbital as sudden cessation may result in status. Case discussed with Dr. Corey Rose, PGY1
[2018-11-18] MEDS ORDERED: Phenytoin 250 mg/5 ml Inj IVP ONE (16:37)
[2018-11-18] MEDS ORDERED: SODIUM CHLORIDE 0.9% IV ONE (18:00)
[2018-11-18] MEDS ORDERED: PHENYTOIN IV ONE (18:00)
--- NOTE | 2018-11-18 18:53 | CP.PCM.PN ---
Subjective - Date & Time of Evaluation Date of Evaluation: 11/18/18 Time of Evaluation: 18:49 - Subjective Subjective: Podiatry Progress Note for Dr. Ballesteros 58M seen and evaluated at bedside for right second digit dorsal wound. Patient is AAO x 3 and NAD, resting comfortably in bed. Denies any acute overnight events or new pedal complaints. States that he has no pain at this time. Denies any recent N/V/F/C/CP/SOB/D Objective - Vital Signs/Intake and Output Vital Signs (last 24 hours): Temp Pulse Resp BP Pulse Ox 97.7 F 73 20 109/69 99 11/18/18 15:00 11/18/18 15:00 11/18/18 15:00 11/18/18 15:00 11/18/18 15:00 Intake and Output: 11/18/18 11/18/18 06:59 18:59 Intake Total 720 Output Total 700 Balance 20 - Medications Medications: Current Medications Folic Acid (Folic Acid) 1 mg PO DAILY [facility] Last Admin: 11/18/18 09:16 Dose: 1 mg Heparin Sodium (Porcine) (Heparin) 5,000 units SC Q12 [facility] Piperacillin Sod/Tazobactam Sod (Zosyn 3.375 Gm Iv Premix) 3.375 gm in 50 mls @ 100 mls/hr IVPB Q6H [facility]; Protocol Last Admin: 11/18/18 17:00 Dose: 100 mls/hr Metoprolol Succinate (Toprol Xl) 50 mg PO DAILY [facility] Last Admin: 11/18/18 09:19 Dose: 50 mg Multivitamins/Minerals (Therapeutic-M Tab) 1 tab PO DAILY [facility] Last Admin: 11/18/18 09:16 Dose: 1 tab Pantoprazole Sodium (Protonix Ec Tab) 40 mg PO DAILY [facility] Last Admin: 11/18/18 09:16 Dose: 40 mg Phenobarbital (Phenobarbital Tab) 32.4 mg PO BID [facility] Last Admin: 11/18/18 09:15 Dose: 32.4 mg Phenytoin Sodium (Dilantin) 300 mg PO BID [facility] Thiamine HCl (Vitamin B1 Tab) 100 mg PO DAILY [facility] Last Admin: 11/18/18 09:16 Dose: 100 mg - Labs Labs: 11/16/18 08:24 11/16/18 08:24 PT 12.0 SECONDS (9.7-12.2) 11/14/18 19:39 INR 1.1 11/14/18 19:39 APTT 31 SECONDS (21-34) 11/14/18 19:39 - Constitutional Appears: Well, Non-toxic, No Acute Distress - Extremities Exam Additional comments: RLE focused exam: Vasc: DP and PT pulses palpable 2/4. CFT <3 seconds to digits except right second digit. Temperature gradient warm to warm; no increase in warmth to right 2nd digit. +1 pitting edema noted to lower extremity from tibial tuberosity extending into digits. Neuro: Epicritic and protective sensation grossly diminished b/l Derm: Superficial ulceration noted to dorsum of right second digit measuring approximately 1.5 x 1 x 0.1 cm - ulcer is noted to have a dry, granular and epithelializing base with minimal hyperkeratosis periwound; no drainage; no flucutance; no purulence; no malodor present. No other clinical signs of infection Right second toe is dusky in appearance. Superficial ulcers of varying stages noted circumfirentially to lower leg b/l. Skin diffusely dry b/l. Ortho: Pain on palpation to right 2nd digit wound. No other gross deformities noted - Neurological Exam Neurological Exam: Alert, Awake, Oriented x3 - Psychiatric Exam Psychiatric exam: Normal Affect, Normal Mood Assessment and Plan - Assessment and Plan (Free Text) Assessment: 58M seen and evaluated at bedside for right second digit dorsal wound. Plan: Patient seen and evaluated with Dr. Ballesteros Afebrile, absent leukocytosis Continue IV abx per ID RLE MRI: Acute osteomyelitis of right second digit Right foot dressed with betadine, DSD Patient for probable OR on Saturday for amputation of right secon digit pending vascular status Dr. Kennedy consulted to assess patient vascular status and possible interventions preoperatively Podiatry will continue to follow while patient in house
--- NOTE | 2018-11-19 01:38 | CP.PCM.CON ---
History of Present Illness - History of Present Illness History of Present Illness: Vascular Surgery Re: Vascular optimization for R 2nd digit amp HPI: 58M initially presented for seizure. Pt states he noticed a wound on top of his right 2nd digit ~1 week ago and came to the ED for it but was DCed at that time. He reports pain localized to wound site. Denies trauma to digit and drainage from wound. Denies headaches, fevers, chills, dizziness, lightheadedness, SOB, abd pain, chest pain. He has a chronic wound on his right foot with pain to the area, however denies other pain. PMH: seizures, alcohol abuse, anxiety, depression, HTN, RA, DM, blood clots PSH: cholecystectomy SH: No tobacco or drug use. Daily EtOH use. Wheelchair bound, homeless. FH: Noncontributory All: NKDA Meds: See MAR Review of Systems - Review of Systems All systems: reviewed and no additional remarkable complaints except (as per HPI) Past Patient History - Infectious Disease Hx of Infectious Diseases: None - Past Medical History & Family History Past Medical History?: Yes - Past Social History Smoking Status: Never Smoked - CARDIAC Hx Cardiac Disorders: Yes (CAD,) Hx Hypertension: Yes - PULMONARY Hx Bronchitis: Yes - NEUROLOGICAL Hx Seizures: Yes - HEENT Hx HEENT Problems: No - RENAL Hx Chronic Kidney Disease: No - ENDOCRINE/METABOLIC Hx Diabetes Mellitus Type 2: Yes - INTEGUMENTARY Hx Dermatological Problems: Yes Hx Cellulitis: Yes - MUSCULOSKELETAL/RHEUMATOLOGICAL Hx Arthritis: Yes Hx Rheumatoid Arthritis: Yes - GASTROINTESTINAL Hx Gall Bladder Disease: Yes (s/p cholecystectomy) Hx Gastritis: Yes - PSYCHIATRIC Hx Anxiety: Yes Hx Depression: Yes Hx Post Traumatic Stress Disorder: Yes Hx Substance Use: No - SURGICAL HISTORY Hx Cholecystectomy: Yes - ANESTHESIA Hx Anesthesia: Yes Hx Anesthesia Reactions: No Hx Malignant Hyperthermia: No Meds Allergies/Adverse Reactions: Allergies Allergy/AdvReac Type Severity Reaction Status Date / Time No Known Allergies Allergy Verified 11/14/18 18:10 - Medications Medications: Current Medications Folic Acid (Folic Acid) 1 mg PO DAILY [facility] Last Admin: 11/18/18 09:16 Dose: 1 mg Heparin Sodium (Porcine) (Heparin) 5,000 units SC Q12 [facility] Last Admin: 11/18/18 22:20 Dose: 5,000 units Piperacillin Sod/Tazobactam Sod (Zosyn 3.375 Gm Iv Premix) 3.375 gm in 50 mls @ 100 mls/hr IVPB Q6H [facility]; Protocol Last Admin: 11/18/18 22:19 Dose: 100 mls/hr Metoprolol Succinate (Toprol Xl) 50 mg PO DAILY [facility] Last Admin: 11/18/18 09:19 Dose: 50 mg Multivitamins/Minerals (Therapeutic-M Tab) 1 tab PO DAILY [facility] Last Admin: 11/18/18 09:16 Dose: 1 tab Pantoprazole Sodium (Protonix Ec Tab) 40 mg PO DAILY [facility] Last Admin: 11/18/18 09:16 Dose: 40 mg Phenobarbital (Phenobarbital Tab) 32.4 mg PO BID [facility] Last Admin: 11/18/18 19:08 Dose: 32.4 mg Phenytoin Sodium (Dilantin) 300 mg PO Q12H [facility] Thiamine HCl (Vitamin B1 Tab) 100 mg PO DAILY [facility] Last Admin: 11/18/18 09:16 Dose: 100 mg Physical Exam - Constitutional Appears: Non-toxic, No Acute Distress - Head Exam Head Exam: ATRAUMATIC, NORMOCEPHALIC - Eye Exam Eye Exam: EOMI. absent: Scleral icterus - ENT Exam ENT Exam: Mucous Membranes Moist Additional comments: trachea midline - Respiratory Exam Respiratory Exam: NORMAL BREATHING PATTERN. absent: Respiratory Distress - Cardiovascular Exam Cardiovascular Exam: +S1, +S2. absent: Bradycardia - GI/Abdominal Exam GI & Abdominal Exam: Soft. absent: Distended, Tenderness - Rectal Exam Rectal Exam: Deferred - Extremities Exam Additional comments: DP and PT pulses palpable 2/4. No increase in warmth to right 2nd digit. Superficial ulceration noted to dorsum of right second digit measuring approximately 1.5 x 1 x 0.1 cm. No drainage, flucutance, purulence, or malodor. Right second toe is dusky in appearance. Superficial ulcers of varying stages noted circumferentially to lower legs b/l. Skin diffusely dry b/l. No pain with palpation. - Back Exam Back exam: absent: CVA tenderness (L), CVA tenderness (R) - Neurological Exam Neurological exam: Alert, Oriented x3 - Skin Skin Exam: Dry, Normal Color Results - Vital Signs Recent Vital Signs: Last Vital Signs Temp 97.7 F 11/18/18 15:00 Pulse 73 11/18/18 15:00 Resp 20 11/18/18 15:00 BP 109/69 11/18/18 15:00 Pulse Ox 99 11/18/18 15:00 - Labs Result Diagrams: 11/16/18 08:24 11/16/18 08:24 Labs: Laboratory Results - last 24 hr 11/18/18 11/18/18 11/18/18 06:30 11:11 17:20 POC Glucose (mg/dL) 93 113 H 106 11/18/18 21:44 POC Glucose (mg/dL) 154 H Assessment & Plan - Assessment and Plan (Free Text) Assessment: 58M with right second digit dorsal wound needing vascular evaluation Plan: TRAN/PVR ordered CTA aorto-ileofemoral with runoff ordered Follow up results to eval for Intervention if needed Will D/W Dr. Marcia Linares PGY4
[2018-11-19] MEDS: Piperacill/Tazo 3.375gm in Dex 3.375 GM/50 ML BAG IVPB SCH ×4 (04:10→22:14)
[2018-11-19] MEDS: Multivitamin With Minerals Tab PO SCH (10:17)
[2018-11-19] MEDS: Metoprolol Succinate 50 mg XL Tab PO SCH (10:17)
[2018-11-19] MEDS: Pantoprazole 40 mg EC Tab PO SCH (10:18)
[2018-11-19] MEDS ORDERED: Iodixanol 320 mg/ml 150 ml Bottle IV ONE (11:17)
--- NOTE | 2018-11-19 12:16 | CP.PCM.PN ---
Subjective - Date & Time of Evaluation Date of Evaluation: 11/19/18 Time of Evaluation: 12:14 - Subjective Subjective: CONDITION SAME. RT FOOT INF. Objective - Vital Signs/Intake and Output Vital Signs (last 24 hours): Temp Pulse Resp BP Pulse Ox 98.1 F 76 20 112/77 100 11/19/18 07:10 11/19/18 07:10 11/19/18 07:10 11/19/18 07:10 11/19/18 07:10 - Medications Medications: Current Medications Folic Acid (Folic Acid) 1 mg PO DAILY [facility] Last Admin: 11/19/18 10:17 Dose: 1 mg Heparin Sodium (Porcine) (Heparin) 5,000 units SC Q12 [facility] Last Admin: 11/19/18 10:18 Dose: 5,000 units Piperacillin Sod/Tazobactam Sod (Zosyn 3.375 Gm Iv Premix) 3.375 gm in 50 mls @ 100 mls/hr IVPB Q6H [facility]; Protocol Last Admin: 11/19/18 10:25 Dose: 100 mls/hr Metoprolol Succinate (Toprol Xl) 50 mg PO DAILY [facility] Last Admin: 11/19/18 10:17 Dose: 50 mg Multivitamins/Minerals (Therapeutic-M Tab) 1 tab PO DAILY [facility] Last Admin: 11/19/18 10:17 Dose: 1 tab Pantoprazole Sodium (Protonix Ec Tab) 40 mg PO DAILY [facility] Last Admin: 11/19/18 10:18 Dose: 40 mg Phenobarbital (Phenobarbital Tab) 32.4 mg PO BID [facility] Last Admin: 11/19/18 10:18 Dose: 32.4 mg Phenytoin Sodium (Dilantin) 300 mg PO Q12H [facility] Last Admin: 11/19/18 09:00 Dose: 300 mg Thiamine HCl (Vitamin B1 Tab) 100 mg PO DAILY [facility] Last Admin: 11/19/18 10:18 Dose: 100 mg - Labs Labs: 11/16/18 08:24 11/16/18 08:24 PT 12.0 SECONDS (9.7-12.2) 11/14/18 19:39 INR 1.1 11/14/18 19:39 APTT 31 SECONDS (21-34) 11/14/18 19:39 - Constitutional Appears: No Acute Distress, Chronically Ill - Eye Exam Eye Exam: PERRL - ENT Exam ENT Exam: Normal Exam - Respiratory Exam Respiratory Exam: Clear to Ausculation Bilateral, NORMAL BREATHING PATTERN - Cardiovascular Exam Cardiovascular Exam: REGULAR RHYTHM, +S1, +S2 - GI/Abdominal Exam GI & Abdominal Exam: Soft, Normal Bowel Sounds - Extremities Exam Extremities Exam: Full ROM, Normal Capillary Refill, Normal Inspection. absent: Joint Swelling, Pedal Edema - Back Exam Back Exam: NORMAL INSPECTION - Neurological Exam Neurological Exam: Alert, Awake, CN II-XII Intact, Normal Gait, Oriented x3 Assessment and Plan - Assessment and Plan (Free Text) Assessment: SAME. Plan: FOR VASCULAR EVAL. CT IV ABTS.
--- NOTE | 2018-11-19 12:23 | CP.PCM.PN ---
Subjective - Date & Time of Evaluation Date of Evaluation: 11/19/18 Time of Evaluation: 11:00 - Subjective Subjective: Neurology Progress note Patient seen and examined at bedside. He admits that he has not been taking his Dilantin and Phenobarbital consistently since they make him feel groggy. He has not had any seizures since his admission here. He is receiving treatment for cellulitis on his right foot. He denies headaches, dizziness, numbness, t ingling, vision changes or hearing changes. Objective - Vital Signs/Intake and Output Vital Signs (last 24 hours): Temp Pulse Resp BP Pulse Ox 98.1 F 76 20 112/77 100 11/19/18 07:10 11/19/18 07:10 11/19/18 07:10 11/19/18 07:10 11/19/18 07:10 - Medications Medications: Current Medications Folic Acid (Folic Acid) 1 mg PO DAILY [facility] Last Admin: 11/19/18 10:17 Dose: 1 mg Heparin Sodium (Porcine) (Heparin) 5,000 units SC Q12 [facility] Last Admin: 11/19/18 10:18 Dose: 5,000 units Piperacillin Sod/Tazobactam Sod (Zosyn 3.375 Gm Iv Premix) 3.375 gm in 50 mls @ 100 mls/hr IVPB Q6H [facility]; Protocol Last Admin: 11/19/18 10:25 Dose: 100 mls/hr Metoprolol Succinate (Toprol Xl) 50 mg PO DAILY [facility] Last Admin: 11/19/18 10:17 Dose: 50 mg Multivitamins/Minerals (Therapeutic-M Tab) 1 tab PO DAILY [facility] Last Admin: 11/19/18 10:17 Dose: 1 tab Pantoprazole Sodium (Protonix Ec Tab) 40 mg PO DAILY [facility] Last Admin: 11/19/18 10:18 Dose: 40 mg Phenobarbital (Phenobarbital Tab) 32.4 mg PO BID [facility] Last Admin: 11/19/18 10:18 Dose: 32.4 mg Phenytoin Sodium (Dilantin) 300 mg PO Q12H [facility] Last Admin: 11/19/18 09:00 Dose: 300 mg Thiamine HCl (Vitamin B1 Tab) 100 mg PO DAILY [facility] Last Admin: 11/19/18 10:18 Dose: 100 mg - Labs Labs: 11/16/18 08:24 11/16/18 08:24 PT 12.0 SECONDS (9.7-12.2) 11/14/18 19:39 INR 1.1 11/14/18 19:39 APTT 31 SECONDS (21-34) 11/14/18 19:39 - Constitutional Appears: Well, No Acute Distress - Head Exam Head Exam: ATRAUMATIC, NORMOCEPHALIC - Eye Exam Eye Exam: EOMI, PERRL - ENT Exam ENT Exam: Mucous Membranes Moist - Neck Exam Neck Exam: Full ROM - Respiratory Exam Respiratory Exam: Clear to Ausculation Bilateral, NORMAL BREATHING PATTERN - Cardiovascular Exam Cardiovascular Exam: REGULAR RHYTHM, +S1, +S2 - GI/Abdominal Exam GI & Abdominal Exam: Soft, Normal Bowel Sounds. absent: Tenderness - Neurological Exam Neurological Exam: Alert, Awake, CN II-XII Intact, Oriented x3 Additional comments: Decreased strength of right lower extremity Left lower extremity strength 5/5 Upper extremities strength 5/5 finger to nose intact Unable to do heel to carrero secondary to cellulitis on right lower extremity - Psychiatric Exam Psychiatric exam: Normal Affect, Normal Mood Assessment and Plan - Assessment and Plan (Free Text) Assessment: 58 year old homeless male with history of alcohol abuse and seizure disorder who presents for witnessed seizure. Plan: Seizure disorder Dilantin level 3.9 low (goal between 10-20), repeat Dilantin levels on 11/20/18 Continue with Dilantin 300mg BID Phenobarbital level low at 5.0, repeat Phenobarbital levels on 11/20/18 Continue Phenobarbital 32.4mg PO BID Fall risk precautions Given history of epilepsy, patient to continue Dilantin and Phenobarbital as sudden cessation may result in status. Case discussed with Dr. Merlin Rose, PGY1
--- NOTE | 2018-11-19 13:30 | CT ---
Date of service: 11/19/2018 PROCEDURE: CT Angiography Abdomen, Pelvis and Lower Extremity with Contrast HISTORY: Peripheral arterial disease COMPARISON: None available. TECHNIQUE: Technique: CT angiography of the abdomen, pelvis and bilateral lower extremities performed in the arterial phase of enhancement. Coronal and sagittal reformats, and well as rotating MIP images of the vessels generated at the workstation. Intravenous contrast dose: 150 Visipaque 320 Radiation dose: Total exam DLP = 1787.57 mGy-cm. This CT exam was performed using one or more of the following dose reduction techniques: Automated exposure control, adjustment of the mA and/or kV according to patient size, and/or use of iterative reconstruction technique. FINDINGS: CT ANGIOGRAPHY: ABDOMINAL AORTA:: The abdominal was unremarkable. There is no aneurysm or stenosis. MAJOR AORTIC BRANCHES: Celiac [place]: Unremarkable. Superior mesenteric artery: Unremarkable. Inferior mesenteric artery: Unremarkable. Renal arteries: Unremarkable. PELVIC ARTERIES: Right Common Iliac: Unremarkable. Right External Iliac: Unremarkable. Right Internal Iliac: Unremarkable. Left Common Iliac: Unremarkable. Left External Iliac: Unremarkable. Left Internal Iliac: Unremarkable. RIGHT LOWER EXTREMITY ARTERIES: Right Common Femoral: Unremarkable. Right Superficial Femoral: Unremarkable. Right Profunda Femoris: Unremarkable. Right Popliteal:Unremarkable. Right Anterior Tibial: Unremarkable. Right Tibioperoneal Trunk: Unremarkable. Right Posterior Tibial: Severe stenosis of the proximal and mid posterior tibial artery. Possible occlusion of the distal posterior tibial artery. Right Peroneal: Unremarkable. Right dorsalis pedis : Unremarkable. LEFT LOWER EXTREMITY ARTERIES: Left Common Femoral: Unremarkable. Left Superficial Femoral: Unremarkable. Left Profunda Femoris: Unremarkable. Left Popliteal: Unremarkable. Left Anterior Tibial: Unremarkable. Left Tibioperoneal Trunk: Unremarkable. Left Posterior Tibial: Long segment severe stenosis of the posterior tibial artery. Left Peroneal: Unremarkable. Left Dorsalis pedis: Unremarkable. NON-ANGIOGRAPHIC ASPECT OF THE EXAM: LOWER THORAX: Unremarkable. LIVER: Unremarkable. No gross lesion or ductal dilatation. GALLBLADDER AND BILE DUCTS: Unremarkable. PANCREAS: Unremarkable. No gross lesion or ductal dilatation. SPLEEN: Unremarkable. ADRENALS: Unremarkable. No mass. KIDNEYS AND URETERS: Unremarkable. No hydronephrosis. No solid mass. STOMACH AND BOWEL: Limited evaluation without PO contrast. No obstruction. No gross mural thickening. APPENDIX: Normal appendix. PERITONEUM: Unremarkable. No free fluid. No free air. LYMPH NODES: Unremarkable. No enlarged lymph nodes. BLADDER: Unremarkable. REPRODUCTIVE: Unremarkable. BONES: No acute fracture. OTHER FINDINGS: None. IMPRESSION: CT ANGIOGRAM ABDOMEN/PELVIS: Unremarkable CT angiogram of the abdomen pelvis. RIGHT LOWER EXTREMITY CT ANGIOGRAM: 1. The common femoral artery, profunda femoral artery, superficial femoral artery, popliteal artery normal. 2. Runoff shows severe stenosis of the proximal and mid posterior tibial artery with occlusion of the distal posterior tibial artery. The peroneal and anterior tibial artery are unremarkable. LEFT LOWER EXTREMITY CT ANGIOGRAM: 1. The common femoral artery, profunda femoral artery, superficial femoral artery, popliteal artery normal. 2. Runoff shows severe stenosis of the proximal and mid posterior tibial artery with occlusion of the distal posterior tibial artery. The peroneal and anterior tibial artery are unremarkable.
--- NOTE | 2018-11-19 19:37 | CP.PCM.PN ---
Subjective - Date & Time of Evaluation Date of Evaluation: 11/19/18 Time of Evaluation: 15:00 - Subjective Subjective: Podiatry Progress Note for Dr. Ballesteros 58M seen and evaluated at bedside for right second digit dorsal wound with underlying osteomyelitis. Patient is AAO x 3 and NAD, resting comfortably in bed. Denies any acute overnight events or new pedal complaints. States that he has no pain at this time. Denies any recent N/V/F/C/CP/SOB/D Objective - Vital Signs/Intake and Output Vital Signs (last 24 hours): Temp Pulse Resp BP Pulse Ox 97.9 F 73 20 106/68 100 11/19/18 15:45 11/19/18 15:45 11/19/18 15:45 11/19/18 15:45 11/19/18 15:45 Intake and Output: 11/19/18 11/20/18 18:59 06:59 Intake Total 1920 Output Total 600 Balance 1320 - Medications Medications: Current Medications Folic Acid (Folic Acid) 1 mg PO DAILY [facility] Last Admin: 11/19/18 10:17 Dose: 1 mg Heparin Sodium (Porcine) (Heparin) 5,000 units SC Q12 [facility] Last Admin: 11/19/18 10:18 Dose: 5,000 units Piperacillin Sod/Tazobactam Sod (Zosyn 3.375 Gm Iv Premix) 3.375 gm in 50 mls @ 100 mls/hr IVPB Q6H [facility]; Protocol Last Admin: 11/19/18 17:00 Dose: 100 mls/hr Metoprolol Succinate (Toprol Xl) 50 mg PO DAILY [facility] Last Admin: 11/19/18 10:17 Dose: 50 mg Multivitamins/Minerals (Therapeutic-M Tab) 1 tab PO DAILY [facility] Last Admin: 11/19/18 10:17 Dose: 1 tab Pantoprazole Sodium (Protonix Ec Tab) 40 mg PO DAILY [facility] Last Admin: 11/19/18 10:18 Dose: 40 mg Phenobarbital (Phenobarbital Tab) 32.4 mg PO BID [facility] Last Admin: 11/19/18 18:19 Dose: 32.4 mg Phenytoin Sodium (Dilantin) 300 mg PO Q12H [facility] Last Admin: 11/19/18 09:00 Dose: 300 mg Thiamine HCl (Vitamin B1 Tab) 100 mg PO DAILY [facility] Last Admin: 11/19/18 10:18 Dose: 100 mg - Labs Labs: 11/16/18 08:24 11/16/18 08:24 PT 12.0 SECONDS (9.7-12.2) 11/14/18 19:39 INR 1.1 11/14/18 19:39 APTT 31 SECONDS (21-34) 11/14/18 19:39 - Constitutional Appears: Well, Non-toxic, No Acute Distress - Extremities Exam Additional comments: RLE focused exam: Vasc: DP and PT pulses palpable 2/4. CFT <3 seconds to digits except right second digit. Temperature gradient warm to warm; no increase in warmth to right 2nd digit Neuro: Epicritic and protective sensation grossly diminished b/l Derm: Superficial ulceration noted to dorsum of right second digit measuring approximately 1.5 x 1 x 0.1 cm - ulcer is noted to have a dry, granular and epithelializing base with minimal hyperkeratosis periwound; no drainage; no flucutance; no purulence; no malodor present. No other clinical signs of infection Right second toe is dusky in appearance. Superficial ulcers of varying stages noted circumfirentially to lower leg b/l. Skin diffusely dry b/l. Ortho: Pain on palpation to right 2nd digit wound. No other gross deformities noted - Neurological Exam Neurological Exam: Alert, Awake, Oriented x3 - Psychiatric Exam Psychiatric exam: Normal Affect, Normal Mood Assessment and Plan - Assessment and Plan (Free Text) Assessment: 58M seen and evaluated at bedside for right second digit dorsal wound with underlying osteomyelitis Plan: Patient seen and evaluated with Dr. Ballesteros Discussed with patient option of amputating second digit to remove osteomyelitis including all risks and benefits Patient agreed to surgical intervention Surgery scheduled for 7:[address] Ballesteros Medical clearance required, per nursing Dr. Fajardo is aware Heparin to be held after midnight NPO after midnight except meds CBC, BMP in AM Foot dressed with betadine, DSD
[2018-11-19 20:55] LABS: HEMOGLOBIN 12.2 g/dL (12.0-18.0); MEAN CORPUSCULAR HEMOGLOBIN 34.6 pg (27.0-31.0); MEAN CORPUSCULAR HGB CONC 33.6 g/dL (33.0-37.0); MEAN PLATELET VOLUME 9.1 fL (7.2-11.7); RBC 3.52 Mil/uL (4.40-5.90); RED CELL DISTRIBUTION WIDTH 16.3 % (11.5-14.5); WHITE BLOOD COUNT 3.5 K/uL (4.8-10.8)
[2018-11-19 21:01] LABS: MEAN CELL VOLUME 102.8 fL (80.0-94.0); PLATELET COUNT 115 K/uL (130-400)
[2018-11-19 21:08] LABS: BLOOD UREA NITROGEN 14 mg/dL (9-20); CALCIUM 8.8 mg/dl (8.6-10.4); GFR NON-AFRICAN AMERICAN > 60
[2018-11-19 21:09] LABS: INR 1.1; PROTHROMBIN TIME 11.8 SECONDS (9.7-12.2)
[2018-11-19 21:33] LABS: LYMPH % 31.9 % (20.0-40.0); NEUT % 41.2 % (50.0-75.0)
[2018-11-19 21:34] LABS: BASO % 0.6 % (0.0-2.0); EOS # 0.1 K/uL (0.0-0.7); EOS % 3.1 % (0.0-4.0); LYMPH # 1.1 K/uL (1.0-4.3); MONO # 0.8 K/uL (0.0-0.8); MONO % 23.2 % (0.0-10.0); NEUT # 1.4 K/uL (1.8-7.0); NRBC % 0.2 % (0.0-2.0)
[2018-11-19 21:37] LABS: BANDS 3 % (0-2); EOSINOPHIL 2 % (0-4); HYPOCHROMIC SLIGHT; LYMPHOCYTE 36 % (20-40); MICROCYTOSIS SLIGHT; MONOCYTE 22 % (0-10); NEUTROPHIL 37 % (50-75); PLATELET ESTIMATE DECREASED (NORMAL); TOTAL CELLS COUNTED 100
[2018-11-20] MEDS: Piperacill/Tazo 3.375gm in Dex 3.375 GM/50 ML BAG IVPB SCH ×2 (04:39→10:44)
[2018-11-20] MEDS: Metoprolol Succinate 50 mg XL Tab PO SCH ×2 (05:30→10:45)
[2018-11-20 06:54] LABS: HEMOGLOBIN 11.9 g/dL (12.0-18.0); MEAN CORPUSCULAR HEMOGLOBIN 34.9 pg (27.0-31.0); MEAN CORPUSCULAR HGB CONC 33.9 g/dL (33.0-37.0); MEAN PLATELET VOLUME 9.1 fL (7.2-11.7); RBC 3.41 Mil/uL (4.40-5.90); RED CELL DISTRIBUTION WIDTH 16.1 % (11.5-14.5); WHITE BLOOD COUNT 3.4 K/uL (4.8-10.8)
[2018-11-20 07:08] LABS: BLOOD UREA NITROGEN 15 mg/dL (9-20); CALCIUM 9.2 mg/dl (8.6-10.4); GFR NON-AFRICAN AMERICAN > 60
[2018-11-20] MEDS ORDERED: Lidocaine Hydrochloride 10 ML INJ ONE (07:33)
[2018-11-20] MEDS ORDERED: Bupivacaine 0.25% 20 ML INJ IJ ONE (07:33)
[2018-11-20] MEDS ORDERED: Midazolam 2 MG/2 ML VIAL ONE (07:37)
[2018-11-20] MEDS ORDERED: Oxycodone/Acetaminophen 5/325 mg Tab PO PRN (08:50)
--- NOTE | 2018-11-20 08:56 | PCM.SURG1 ---
Surgeon's Initial Post Op Note - Surgeon's Notes Surgeon: Dr. Layton Ballesteros, DPM Store Product Demonstrator: Dr. Tino Jensen, PGY2 Type of Anesthesia: IV Sedation, Local Anesthesia Administered By: Dr. Mcgarry Pre-Operative Diagnosis: Osteomyelitis of right foot, second digit Operative Findings: Osteomyelitis of right foot, second digit. M - 3-0 nylon Post-Operative Diagnosis: Same Operation Performed: Partial amputation of right second ray Specimen/Specimens Removed: right second digit and right second metatarsal head Estimated Blood Loss: EBL {In ML}: 5 Blood Products Given: N/A Drains Used: No Drains Post-Op Condition: Good Date of Surgery/Procedure: 11/20/18 Time of Surgery/Procedure: 08:56
[2018-11-20] MEDS: Pantoprazole 40 mg EC Tab PO SCH (10:45)
[2018-11-20] MEDS: Multivitamin With Minerals Tab PO SCH (10:45)
--- NOTE | 2018-11-20 11:05 | RAD ---
Date of service: 11/20/2018 PROCEDURE: Right Foot Radiographs. HISTORY: s/p partial right second ray amputation COMPARISON: None. FINDINGS: BONES: Amputation of the 2nd digit which partially involves the 2nd metatarsal head and distal to it is noted. The edge of the amputation site here appear sharper no periosteal reaction or cortical destruction is seen. This mottled density in the soft tissues between the 1st and 3rd toe. Correlate clinically with timing of amputation. There is partial resection-likely bunionectomy of the 1st metatarsal and 2 screws in the 1st metatarsal. Trace inferior calcaneal spurring noted. Prominent posterior talar process and/or prominent os trigonum noted. JOINTS: Mild-moderate 1st metatarsal-phalangeal joint arthrosis Mild tibiotalar joint arthrosis suggested. SOFT TISSUES: There is a 2 mm metallic like density in the plantar superficial soft tissues at the metatarsal levels the lateral view. OTHER FINDINGS: Decreased plantar arch suggested on nonweightbearing view hammertoe krystin IMPRESSION: Status post 2nd digit amputation as above. Additional 1st metatarsal postsurgical changes. No evidence of osteomyelitis. Current soft tissue mottled densities inferred as recent postop changes associated with the amputation-clinically confirmation of this is advised. Plantar metallic soft tissue density compatible with foreign body-correlate clinically Other findings as above.
--- NOTE | 2018-11-20 13:19 | CP.PCM.PN ---
Subjective - Date & Time of Evaluation Date of Evaluation: 11/20/18 Time of Evaluation: 13:18 - Subjective Subjective: CONDITION STABLE. WENT FOR OR. VS WNL. Objective - Vital Signs/Intake and Output Vital Signs (last 24 hours): Temp Pulse Resp BP Pulse Ox 97.8 F 71 17 119/74 96 11/20/18 10:05 11/20/18 10:05 11/20/18 10:05 11/20/18 10:05 11/20/18 10:05 Intake and Output: 11/20/18 11/20/18 06:59 18:59 Intake Total 60 505 Output Total 800 Balance -740 505 - Medications Medications: Current Medications Acetaminophen (Tylenol 325mg Tab) 650 mg PO Q6 PRN PRN Reason: Pain, Mild (1-3) Folic Acid (Folic Acid) 1 mg PO DAILY [facility] Last Admin: 11/20/18 10:44 Dose: 1 mg Heparin Sodium (Porcine) (Heparin) 5,000 units SC Q12 [facility] Last Admin: 11/19/18 22:10 Dose: Not Given Metoprolol Succinate (Toprol Xl) 50 mg PO DAILY [facility] Last Admin: 11/20/18 10:45 Dose: 50 mg Multivitamins/Minerals (Therapeutic-M Tab) 1 tab PO DAILY [facility] Last Admin: 11/20/18 10:45 Dose: 1 tab Oxycodone/Acetaminophen (Percocet 5/325 Mg Tab) 1 tab PO Q6H PRN PRN Reason: Pain, moderate (4-7) Stop: 11/23/18 08:51 Oxycodone/Acetaminophen (Percocet 5/325 Mg Tab) 2 tab PO Q6H PRN PRN Reason: Pain, severe (8-10) Stop: 11/23/18 08:51 Pantoprazole Sodium (Protonix Ec Tab) 40 mg PO DAILY [facility] Last Admin: 11/20/18 10:45 Dose: 40 mg Phenobarbital (Phenobarbital Tab) 32.4 mg PO BID [facility] Last Admin: 11/20/18 10:45 Dose: 32.4 mg Phenytoin Sodium (Dilantin) 200 mg PO BID [facility] Thiamine HCl (Vitamin B1 Tab) 100 mg PO DAILY [facility] Last Admin: 11/20/18 10:45 Dose: 100 mg - Labs Labs: 11/20/18 06:46 11/20/18 06:46 PT 11.8 SECONDS (9.7-12.2) 11/19/18 20:45 INR 1.1 11/19/18 20:45 APTT 33 SECONDS (21-34) 11/19/18 20:45 - Constitutional Appears: No Acute Distress, Chronically Ill - Eye Exam Eye Exam: Normal appearance, PERRL - ENT Exam ENT Exam: Mucous Membranes Moist - Respiratory Exam Respiratory Exam: Clear to Ausculation Bilateral, NORMAL BREATHING PATTERN - Cardiovascular Exam Cardiovascular Exam: REGULAR RHYTHM, +S1, +S2 - GI/Abdominal Exam GI & Abdominal Exam: Soft, Normal Bowel Sounds - Extremities Exam Extremities Exam: Full ROM, Normal Capillary Refill, Normal Inspection. absent: Joint Swelling, Pedal Edema - Back Exam Back Exam: NORMAL INSPECTION - Neurological Exam Neurological Exam: Alert, Awake, CN II-XII Intact, Normal Gait, Oriented x3 - Psychiatric Exam Psychiatric exam: Normal Affect, Normal Mood Assessment and Plan - Assessment and Plan (Free Text) Assessment: SAME. Plan: CT PRESENT TREATMENT.
--- NOTE | 2018-11-20 13:45 | VASCLAB ---
Date of service: 11/19/2018 STUDY DESCRIPTION: Lower Extremity Arterial Exam (PVR). HISTORY: Ulceration, pain in limb. PRIORS: None. TECHNIQUE: Pulse volume recording waveforms and segmental pressures of bilateral lower extremities at multiple levels were obtained. Ankle Brachial Indices (ABIs) were calculated. Report prepared by IRAJ Castillo, RVT RIGHT LOWER EXTREMITY: * Brachial artery: Pressure - 116 mmHg. * High thigh: Pressure - 148 mmHg: Ratio - 1.28: PVR waveform - Pulsatile * Low thigh: Pressure - 145 mmHg: Ratio - 1.25 PVR waveform: Pulsatile * Calf: Pressure - 152 mmHg: Ratio - 1.31 PVR waveform: Pulsatile * Posterior tibial Artery: Pressure - 136 mmHg: Ratio - 1.17 PVR waveform: Pulsatile * Dorsalis pedis Artery: Pressure - 145 mmHg: Ratio - 1.25 PVR waveform: Pulsatile * Great toe: Pressure - mmHg: Ratio - PVR waveform: Ankle brachial index (TRAN): 1.25 LEFT LOWER EXTREMITY: * Brachial artery: Pressure - 103 mmHg. * High thigh: Pressure - 141 mmHg: Ratio - 1.22: PVR waveform - Pulsatile * Low thigh: Pressure - 138 mmHg: Ratio - 1.19 PVR waveform: Pulsatile * Calf: Pressure - 147 mmHg: Ratio - 1.27 PVR waveform: Pulsatile * Posterior tibial Artery: Pressure - 134 mmHg: Ratio - 1.16 PVR waveform: Pulsatile * Dorsalis pedis Artery: Pressure - 140 mmHg: Ratio - 1.21 PVR waveform: Pulsatile * Great toe: Pressure - mmHg: Ratio - PVR waveform: Ankle brachial index (TRAN): 1.21 OTHER FINDINGS: Right: Left: IMPRESSION: Right: There was no evidence of hemodynamically significant arterial insufficiency in the right lower extremity. Left: There was no evidence of hemodynamically significant arterial insufficiency in the left lower extremity.
--- NOTE | 2018-11-20 15:13 | CP.PCM.PN ---
<Paul Rose - Last Filed: 11/20/18 15:17> Subjective - Date & Time of Evaluation Date of Evaluation: 11/20/18 Time of Evaluation: 11:00 - Subjective Subjective: Neurology Progress note for Dr. Boyer Patient seen and examined at bedside. Patient continues to receive treatment for cellulitis of right foot. He underwent right 2nd toe amputation today. He has not had any seizures since his hospitalization here. He denies headache, fevers, chills, dizziness, lightheadedness, numbness, tingling. Objective - Vital Signs/Intake and Output Vital Signs (last 24 hours): Temp Pulse Resp BP Pulse Ox 97.8 F 71 17 119/74 96 11/20/18 10:05 11/20/18 10:05 11/20/18 10:05 11/20/18 10:05 11/20/18 10:05 Intake and Output: 11/20/18 11/20/18 06:59 18:59 Intake Total 60 505 Output Total 800 Balance -740 505 - Medications Medications: Current Medications Acetaminophen (Tylenol 325mg Tab) 650 mg PO Q6 PRN PRN Reason: Pain, Mild (1-3) Folic Acid (Folic Acid) 1 mg PO DAILY [facility] Last Admin: 11/20/18 10:44 Dose: 1 mg Heparin Sodium (Porcine) (Heparin) 5,000 units SC Q12 [facility] Last Admin: 11/19/18 22:10 Dose: Not Given Metoprolol Succinate (Toprol Xl) 50 mg PO DAILY [facility] Last Admin: 11/20/18 10:45 Dose: 50 mg Multivitamins/Minerals (Therapeutic-M Tab) 1 tab PO DAILY [facility] Last Admin: 11/20/18 10:45 Dose: 1 tab Oxycodone/Acetaminophen (Percocet 5/325 Mg Tab) 1 tab PO Q6H PRN PRN Reason: Pain, moderate (4-7) Stop: 11/23/18 08:51 Oxycodone/Acetaminophen (Percocet 5/325 Mg Tab) 2 tab PO Q6H PRN PRN Reason: Pain, severe (8-10) Stop: 11/23/18 08:51 Pantoprazole Sodium (Protonix Ec Tab) 40 mg PO DAILY [facility] Last Admin: 11/20/18 10:45 Dose: 40 mg Phenobarbital (Phenobarbital Tab) 32.4 mg PO BID [facility] Last Admin: 11/20/18 10:45 Dose: 32.4 mg Phenytoin Sodium (Dilantin) 200 mg PO BID [facility] Thiamine HCl (Vitamin B1 Tab) 100 mg PO DAILY [facility] Last Admin: 11/20/18 10:45 Dose: 100 mg - Labs Labs: 11/20/18 06:46 11/20/18 06:46 PT 11.8 SECONDS (9.7-12.2) 11/19/18 20:45 INR 1.1 11/19/18 20:45 APTT 33 SECONDS (21-34) 11/19/18 20:45 - Constitutional Appears: Well, No Acute Distress - Head Exam Head Exam: ATRAUMATIC, NORMOCEPHALIC - Eye Exam Eye Exam: EOMI, PERRL - ENT Exam ENT Exam: Mucous Membranes Moist - Respiratory Exam Respiratory Exam: Clear to Ausculation Bilateral, NORMAL BREATHING PATTERN - Cardiovascular Exam Cardiovascular Exam: REGULAR RHYTHM, +S1, +S2 - GI/Abdominal Exam GI & Abdominal Exam: Soft, Normal Bowel Sounds - Neurological Exam Neurological Exam: Alert, Awake, CN II-XII Intact, Oriented x3 Additional comments: Decreased strength of RLE LLE 5/5 Upper extremities 5/5 Finger to nose intact. - Psychiatric Exam Psychiatric exam: Normal Affect, Normal Mood - Skin Skin Exam: Dry, Intact, Warm Assessment and Plan - Assessment and Plan (Free Text) Assessment: 58 year old homeless male with history of alcohol abuse and seizure disorder who presents for witnessed seizure. Plan: Seizure disorder Repeat Dilantin level 22.7 Decrease to Dilantin 200mg BID. Repeat phenobarbital pending. Continue Phenobarbital 32.4mg PO BID Fall risk precautions Given history of epilepsy, patient to continue Dilantin and Phenobarbital as sudden cessation may result in status. Case discussed with Dr. Merlin Rose, PGY1 <Cong Boyer - Last Filed: 11/24/18 02:05> Objective - Vital Signs/Intake and Output Vital Signs (last 24 hours): Temp Pulse Resp BP Pulse Ox 98.1 F 76 20 117/78 100 11/22/18 07:00 11/22/18 07:00 11/22/18 07:00 11/22/18 07:00 02/02/19 07:00 - Labs Labs: 11/20/18 06:46 11/20/18 06:46 PT 11.8 SECONDS (9.7-12.2) 11/19/18 20:45 INR 1.1 11/19/18 20:45 APTT 33 SECONDS (21-34) 11/19/18 20:45 Attending/Attestation - Attestation I have personally seen and examined this patient.: Yes I have fully participated in the care of the patient.: Yes I have reviewed all pertinent clinical information, including history, physical exam and plan: Yes Notes (Text): I agree with the assessment and plan. Will manage underlying seizure disorder as outlined above.
[2018-11-20 17:28] VITALS: RESP 20
[2018-11-20] MEDS: Oxycodone/Acetaminophen 5/325 mg Tab PO PRN (20:30)
--- NOTE | 2018-11-21 06:22 | OP ---
PROCEDURE DATE: 11/20/2018 PREOPERATIVE DIAGNOSIS: Osteomyelitis of right foot second digit. POSTOPERATIVE DIAGNOSIS: Osteomyelitis of right foot second digit. PROCEDURE: Right foot partial second ray amputation. SURGEON: Layton Ballesteros DPM. LIGHTING ENGINEER: Tino Jensen, PGY-2. TYPE OF ANESTHESIA: IV sedation with local. ANESTHESIA ADMINISTERED BY: Adrian Mcgarry DO. INDICATION: The patient is a 58-year-old male with the above mentioned diagnosis. The patient has exhausted all conservative treatment at this time, and now requires surgical intervention. The patient signed the consent after careful explanation of risks, benefits, complications, and alternatives for surgical procedure. No guarantees were given nor implied. Consent was signed. NPO status was confirmed prior to taking the patient to the operating room. PREPARATION: The patient was brought into the operating room and placed on the operating room table in a supine position. Time-out was performed for identification of the correct patient and procedure. After induction of IV sedation, the patient received a total of 10 mL of 1:1 mixture of 0.25% Marcaine plain and 1% lidocaine plain in a local block fashion to the base of the right second digit. The right lower extremity was then prepped and draped in a normal sterile manner and the procedure was begun. No tourniquet was used during the entirety of the procedure. PROCEDURE 1: Attention was then turned to the base of the right second digit where a racquet-type incision was made using #15 blade. The incision was carried down using sharp dissection to the level of the first metatarsophalangeal joint where the digit was disarticulated at the metatarsophalangeal joint in its entirety. The digit was then passed off the operative field and sent to Pathology for pathological examination. All soft tissue was then resected using sharp dissection from the second metatarsal head thus exposing the metatarsal head and the incision site. Utilizing an operating bone saw, the metatarsal head was resected and excised from the field in its entirety. This bone specimen was also sent to Pathology for pathological examination. Any identifiable tendons were then resected from the surgical site. The site was flushed with copious amounts of normal sterile saline and was closed using 3-0 nylon suture. The surgical site was then dressed with Xeroform, 4 x 4 gauze, Kerlix, Coban, and a light Zack bandage, and the procedure was completed. POSTOPERATIVE CONDITION: The patient tolerated the procedure and the anesthesia well without any apparent complications or complaints. The patient was escorted from the operating room to the recovery room with vital signs stable and neurovascular structures intact. Podiatry will continue to follow the patient while he remains in-house. Tino Jensen DPM Layton Ballesteros DPM
[2018-11-21] MEDS: Metoprolol Succinate 50 mg XL Tab PO SCH (09:39)
[2018-11-21] MEDS: Oxycodone/Acetaminophen 5/325 mg Tab PO PRN (09:39)
[2018-11-21] MEDS: Pantoprazole 40 mg EC Tab PO SCH (09:40)
[2018-11-21] MEDS: Multivitamin With Minerals Tab PO SCH (09:40)
--- NOTE | 2018-11-21 11:59 | CP.PCM.PN ---
Subjective - Date & Time of Evaluation Date of Evaluation: 11/21/18 Time of Evaluation: 11:56 - Subjective Subjective: AFEBRILE. FEELS BETTER. POST OP. SEIZURE DIS. NO ACTIVE SEISURE.S Objective - Vital Signs/Intake and Output Vital Signs (last 24 hours): Temp Pulse Resp BP Pulse Ox 98.1 F 77 20 116/70 99 11/21/18 07:10 11/21/18 07:10 11/21/18 07:10 11/21/18 07:10 11/21/18 07:10 - Medications Medications: Current Medications Acetaminophen (Tylenol 325mg Tab) 650 mg PO Q6 PRN PRN Reason: Pain, Mild (1-3) Folic Acid (Folic Acid) 1 mg PO DAILY [facility] Last Admin: 11/21/18 09:39 Dose: 1 mg Heparin Sodium (Porcine) (Heparin) 5,000 units SC Q12 [facility] Last Admin: 11/21/18 09:39 Dose: 5,000 units Metoprolol Succinate (Toprol Xl) 50 mg PO DAILY [facility] Last Admin: 11/21/18 09:39 Dose: 50 mg Multivitamins/Minerals (Therapeutic-M Tab) 1 tab PO DAILY [facility] Last Admin: 11/21/18 09:40 Dose: 1 tab Oxycodone/Acetaminophen (Percocet 5/325 Mg Tab) 1 tab PO Q6H PRN PRN Reason: Pain, moderate (4-7) Stop: 11/23/18 08:51 Last Admin: 11/21/18 09:39 Dose: 1 tab Oxycodone/Acetaminophen (Percocet 5/325 Mg Tab) 2 tab PO Q6H PRN PRN Reason: Pain, severe (8-10) Stop: 11/23/18 08:51 Pantoprazole Sodium (Protonix Ec Tab) 40 mg PO DAILY [facility] Last Admin: 11/21/18 09:40 Dose: 40 mg Phenobarbital (Phenobarbital Tab) 32.4 mg PO BID [facility] Last Admin: 11/21/18 09:40 Dose: 32.4 mg Phenytoin Sodium (Dilantin) 200 mg PO BID [facility] Last Admin: 11/21/18 09:39 Dose: 200 mg Thiamine HCl (Vitamin B1 Tab) 100 mg PO DAILY [facility] Last Admin: 11/21/18 09:40 Dose: 100 mg - Labs Labs: 11/20/18 06:46 11/20/18 06:46 PT 11.8 SECONDS (9.7-12.2) 11/19/18 20:45 INR 1.1 11/19/18 20:45 APTT 33 SECONDS (21-34) 11/19/18 20:45 - Constitutional Appears: No Acute Distress, Chronically Ill - Eye Exam Eye Exam: Normal appearance, PERRL - ENT Exam ENT Exam: Mucous Membranes Moist - Respiratory Exam Respiratory Exam: Clear to Ausculation Bilateral, NORMAL BREATHING PATTERN - Cardiovascular Exam Cardiovascular Exam: REGULAR RHYTHM, +S1, +S2 - GI/Abdominal Exam GI & Abdominal Exam: Soft, Normal Bowel Sounds - Extremities Exam Extremities Exam: Full ROM, Normal Capillary Refill, Normal Inspection. absent: Joint Swelling, Pedal Edema - Back Exam Back Exam: NORMAL INSPECTION - Neurological Exam Neurological Exam: Alert, Awake, CN II-XII Intact, Normal Gait, Oriented x3 - Psychiatric Exam Psychiatric exam: Normal Affect, Normal Mood Assessment and Plan - Assessment and Plan (Free Text) Assessment: STABLE. Plan: MANAGEMENT PER DR. NUNEZ AND DR. HUGHES.
--- NOTE | 2018-11-21 16:27 | CP.PCM.PN ---
Subjective - Date & Time of Evaluation Date of Evaluation: 11/21/18 Time of Evaluation: 16:27 - Subjective Subjective: Neurology Follow-Up Note: Mr. Pina was evaluated this afternoon at bedside. He is POD #1 right 2nd toe amputation. He has not had any seizures since his hospitalization here. He denies h/a, dizziness, visual changes, chest pain, palpitations, sob, cough, abd pain, n/v/d, numbness, tingling. Objective - Vital Signs/Intake and Output Vital Signs (last 24 hours): Temp Pulse Resp BP Pulse Ox 98.1 F 77 20 116/70 99 11/21/18 07:10 11/21/18 07:10 11/21/18 07:10 11/21/18 07:10 11/21/18 07:10 Intake and Output: 11/21/18 11/21/18 06:59 18:59 Intake Total 600 Output Total 700 Balance -100 - Medications Medications: Current Medications Acetaminophen (Tylenol 325mg Tab) 650 mg PO Q6 PRN PRN Reason: Pain, Mild (1-3) Folic Acid (Folic Acid) 1 mg PO DAILY [facility] Last Admin: 11/21/18 09:39 Dose: 1 mg Heparin Sodium (Porcine) (Heparin) 5,000 units SC Q12 [facility] Last Admin: 11/21/18 09:39 Dose: 5,000 units Piperacillin Sod/Tazobactam (Sod 3.375 gm/ Sodium Chloride) 100 mls @ 200 mls/hr IVPB Q6H [facility]; Protocol Metoprolol Succinate (Toprol Xl) 50 mg PO DAILY [facility] Last Admin: 11/21/18 09:39 Dose: 50 mg Multivitamins/Minerals (Therapeutic-M Tab) 1 tab PO DAILY [facility] Last Admin: 11/21/18 09:40 Dose: 1 tab Oxycodone/Acetaminophen (Percocet 5/325 Mg Tab) 1 tab PO Q6H PRN PRN Reason: Pain, moderate (4-7) Stop: 11/23/18 08:51 Last Admin: 11/21/18 09:39 Dose: 1 tab Oxycodone/Acetaminophen (Percocet 5/325 Mg Tab) 2 tab PO Q6H PRN PRN Reason: Pain, severe (8-10) Stop: 11/23/18 08:51 Pantoprazole Sodium (Protonix Ec Tab) 40 mg PO DAILY [facility] Last Admin: 11/21/18 09:40 Dose: 40 mg Phenobarbital (Phenobarbital Tab) 32.4 mg PO BID [facility] Last Admin: 11/21/18 09:40 Dose: 32.4 mg Phenytoin Sodium (Dilantin) 200 mg PO BID [facility] Last Admin: 11/21/18 09:39 Dose: 200 mg Thiamine HCl (Vitamin B1 Tab) 100 mg PO DAILY [facility] Last Admin: 11/21/18 09:40 Dose: 100 mg - Labs Labs: 11/20/18 06:46 11/20/18 06:46 PT 11.8 SECONDS (9.7-12.2) 11/19/18 20:45 INR 1.1 11/19/18 20:45 APTT 33 SECONDS (21-34) 11/19/18 20:45 - Constitutional Appears: Well, No Acute Distress - Head Exam Head Exam: ATRAUMATIC, NORMAL INSPECTION, NORMOCEPHALIC - Eye Exam Eye Exam: EOMI, Normal appearance Pupil Exam: NORMAL ACCOMODATION, PERRL - ENT Exam ENT Exam: Mucous Membranes Moist - Neck Exam Neck Exam: Full ROM, Normal Inspection - Respiratory Exam Respiratory Exam: NORMAL BREATHING PATTERN - Extremities Exam Additional comments: POD #1 right 2nd toe amputation - Back Exam Back Exam: Full ROM - Neurological Exam Neurological Exam: Alert, Awake, CN II-XII Intact, Oriented x3 Neuro motor strength exam: Left Upper Extremity: 5, Right Upper Extremity: 5, Left Lower Extremity: 5, Right Lower Extremity: 3 Additional comments: Speech clear Weakness noted to RLE No sensory deficits noted No dysmetria noted No tremors - Psychiatric Exam Psychiatric exam: Normal Affect, Normal Mood - Skin Skin Exam: Dry, Intact Assessment and Plan (1) Seizure Assessment & Plan: -Repeat Dilantin level 22.7; continue Dilantin 200mg BID. -Repeat Phenobarb level still low; continue Phenobarbital 32.4mg PO BID -Recheck Phenobarb level as outpatient (while at [facility]) and have pt follow up with his neurologist or with Dr. Nicole in the office within 1 month. -Given history of epilepsy, patient to continue Dilantin and Phenobarbital as sudden cessation may result in status. Thank you for allowing us to participate in this pt's care. Reconsult prn. Case discussed with Dr. Boyer Status: Acute
[2018-11-21] MEDS: Piperacillin/Tazobact 3.375 GM in Sodium Chloride 100 ML IVPB SCH (17:47)
--- NOTE | 2018-11-21 19:41 | CP.PCM.PN ---
Subjective - Date & Time of Evaluation Date of Evaluation: 11/21/18 Time of Evaluation: 09:00 - Subjective Subjective: improving afebrile alert Objective - Vital Signs/Intake and Output Vital Signs (last 24 hours): Temp Pulse Resp BP Pulse Ox 98.4 F 80 20 114/72 99 11/21/18 15:00 11/21/18 15:00 11/21/18 15:00 11/21/18 15:00 11/21/18 15:00 Intake and Output: 11/21/18 11/22/18 18:59 06:59 Intake Total 600 Output Total 700 Balance -100 - Medications Medications: Current Medications Acetaminophen (Tylenol 325mg Tab) 650 mg PO Q6 PRN PRN Reason: Pain, Mild (1-3) Folic Acid (Folic Acid) 1 mg PO DAILY [facility] Last Admin: 11/21/18 09:39 Dose: 1 mg Heparin Sodium (Porcine) (Heparin) 5,000 units SC Q12 [facility] Last Admin: 11/21/18 09:39 Dose: 5,000 units Piperacillin Sod/Tazobactam (Sod 3.375 gm/ Sodium Chloride) 100 mls @ 200 mls/hr IVPB Q6H [facility]; Protocol Last Admin: 11/21/18 17:47 Dose: 200 mls/hr Metoprolol Succinate (Toprol Xl) 50 mg PO DAILY [facility] Last Admin: 11/21/18 09:39 Dose: 50 mg Multivitamins/Minerals (Therapeutic-M Tab) 1 tab PO DAILY [facility] Last Admin: 11/21/18 09:40 Dose: 1 tab Oxycodone/Acetaminophen (Percocet 5/325 Mg Tab) 1 tab PO Q6H PRN PRN Reason: Pain, moderate (4-7) Stop: 11/23/18 08:51 Last Admin: 11/21/18 09:39 Dose: 1 tab Oxycodone/Acetaminophen (Percocet 5/325 Mg Tab) 2 tab PO Q6H PRN PRN Reason: Pain, severe (8-10) Stop: 11/23/18 08:51 Pantoprazole Sodium (Protonix Ec Tab) 40 mg PO DAILY [facility] Last Admin: 11/21/18 09:40 Dose: 40 mg Phenobarbital (Phenobarbital Tab) 32.4 mg PO BID [facility] Last Admin: 11/21/18 17:48 Dose: 32.4 mg Phenytoin Sodium (Dilantin) 200 mg PO BID [facility] Last Admin: 11/21/18 17:48 Dose: 200 mg Thiamine HCl (Vitamin B1 Tab) 100 mg PO DAILY [facility] Last Admin: 11/21/18 09:40 Dose: 100 mg - Labs Labs: 11/20/18 06:46 11/20/18 06:46 PT 11.8 SECONDS (9.7-12.2) 11/19/18 20:45 INR 1.1 11/19/18 20:45 APTT 33 SECONDS (21-34) 11/19/18 20:45 - Constitutional Appears: Well - Head Exam Head Exam: ATRAUMATIC, NORMAL INSPECTION, NORMOCEPHALIC - Eye Exam Eye Exam: EOMI, Normal appearance, PERRL Pupil Exam: NORMAL ACCOMODATION, PERRL - ENT Exam ENT Exam: Mucous Membranes Moist, Normal Exam - Neck Exam Neck Exam: Full ROM, Normal Inspection. absent: Lymphadenopathy - Respiratory Exam Respiratory Exam: Clear to Ausculation Bilateral, NORMAL BREATHING PATTERN - Cardiovascular Exam Cardiovascular Exam: REGULAR RHYTHM, +S1, +S2. absent: Murmur - GI/Abdominal Exam GI & Abdominal Exam: Soft, Normal Bowel Sounds. absent: Tenderness - Rectal Exam Rectal Exam: NORMAL INSPECTION - Exam Exam: Circumcision, NORMAL INSPECTION External exam: NORMAL EXTERNAL EXAM Speculum exam: NORMAL SPECULUM EXAM Bimanual exam: NORMAL BIMANUAL EXAM - Extremities Exam Extremities Exam: Full ROM, Normal Capillary Refill, Normal Inspection. absent: Joint Swelling, Pedal Edema - Back Exam Back Exam: NORMAL INSPECTION - Neurological Exam Neurological Exam: Alert, Awake, CN II-XII Intact, Normal Gait, Oriented x3 - Psychiatric Exam Psychiatric exam: Normal Affect, Normal Mood - Skin Skin Exam: Dry, Intact, Normal Color Additional comments: wound healing Assessment and Plan (1) Alcoholic intoxication Status: Acute (2) Alcoholism /alcohol abuse Status: Acute - Assessment and Plan (Free Text) Assessment: d/c on IV rx follow up with dr Uri Fajardo
[2018-11-22] MEDS: Piperacillin/Tazobact 3.375 GM in Sodium Chloride 100 ML IVPB SCH ×3 (01:00→12:36)
[2018-11-22 07:49] VITALS: BP 117/78; PULSE 76; TEMP 98.1; O2SAT 100
[2018-11-22] MEDS: Metoprolol Succinate 50 mg XL Tab PO SCH (09:26)
[2018-11-22] MEDS: Multivitamin With Minerals Tab PO SCH (09:26)
[2018-11-22] MEDS: Oxycodone/Acetaminophen 5/325 mg Tab PO PRN (09:30)
[2018-11-22] MEDS: Pantoprazole 40 mg EC Tab PO SCH (09:33)
--- NOTE | 2018-11-22 12:09 | CP.PCM.PN ---
Subjective - Date & Time of Evaluation Date of Evaluation: 11/22/18 Time of Evaluation: 12:09 - Subjective Subjective: Podiatry Progress Note - Dr. Ballesteros 58 y/o male with PMHx of EtOH abuse and chronic leg pain seen at bedside this morning, 2 days s/p right foot 2nd digit amputation. Patient in NAD, AAOx3 at time of visit. Denies pain to the right foot. Denies any overnight events. Has no new pedal complaints. Denies F/C/N/V/CP/SOB Objective - Vital Signs/Intake and Output Vital Signs (last 24 hours): Temp Pulse Resp BP Pulse Ox 98.1 F 76 20 117/78 100 11/22/18 07:00 11/22/18 07:00 11/22/18 07:00 11/22/18 07:00 11/22/18 07:00 - Medications Medications: Current Medications Acetaminophen (Tylenol 325mg Tab) 650 mg PO Q6 PRN PRN Reason: Pain, Mild (1-3) Folic Acid (Folic Acid) 1 mg PO DAILY [facility] Last Admin: 11/22/18 09:26 Dose: 1 mg Heparin Sodium (Porcine) (Heparin) 5,000 units SC Q12 [facility] Last Admin: 11/22/18 09:27 Dose: 5,000 units Piperacillin Sod/Tazobactam (Sod 3.375 gm/ Sodium Chloride) 100 mls @ 200 mls/hr IVPB Q6H [facility]; Protocol Last Admin: 11/22/18 06:00 Dose: 200 mls/hr Metoprolol Succinate (Toprol Xl) 50 mg PO DAILY [facility] Last Admin: 11/22/18 09:26 Dose: 50 mg Multivitamins/Minerals (Therapeutic-M Tab) 1 tab PO DAILY [facility] Last Admin: 11/22/18 09:26 Dose: 1 tab Oxycodone/Acetaminophen (Percocet 5/325 Mg Tab) 1 tab PO Q6H PRN PRN Reason: Pain, moderate (4-7) Stop: 11/23/18 08:51 Last Admin: 11/22/18 09:30 Dose: 1 tab Oxycodone/Acetaminophen (Percocet 5/325 Mg Tab) 2 tab PO Q6H PRN PRN Reason: Pain, severe (8-10) Stop: 11/23/18 08:51 Last Admin: 11/22/18 01:05 Dose: 2 tab Pantoprazole Sodium (Protonix Ec Tab) 40 mg PO DAILY [facility] Last Admin: 11/22/18 09:33 Dose: 40 mg Phenobarbital (Phenobarbital Tab) 32.4 mg PO BID [facility] Last Admin: 11/22/18 09:27 Dose: 32.4 mg Phenytoin Sodium (Dilantin) 200 mg PO BID [facility] Last Admin: 11/22/18 09:30 Dose: 200 mg Thiamine HCl (Vitamin B1 Tab) 100 mg PO DAILY [facility] Last Admin: 11/22/18 09:26 Dose: 100 mg - Labs Labs: 11/20/18 06:46 11/20/18 06:46 PT 11.8 SECONDS (9.7-12.2) 11/19/18 20:45 INR 1.1 11/19/18 20:45 APTT 33 SECONDS (21-34) 11/19/18 20:45 - Constitutional Appears: Well, Non-toxic, No Acute Distress - Extremities Exam Additional comments: Right LE focused exam: Vasc: DP/PT pulses fully palpable 2/4 B/L. Skin temperature warm to warm from proximal to distal. CFT < 3 seconds to all digits. No edema noted to amputation site Neuro: Epicritic and protective sensation grossly intact B/L Derm: Amputation site noted to second digit to level of MPJ. Wound edges are well coapted with skin sutures intact and no evidence of dehiscence. No erythema, malodor, drainage or other clinical signs of infection noted Ortho: No tenderness to palpation of amputation site. No other gross deformities noted. ROM and MMT deferred due to postoperative status - Neurological Exam Neurological Exam: Alert, Awake, Oriented x3 - Psychiatric Exam Psychiatric exam: Normal Affect. absent: Normal Mood Assessment and Plan - Assessment and Plan (Free Text) Assessment: 58 y/o male who is 1 day s/p right foot 2nd digit amputation secondary to osteomyelitis Plan Patient seen and evaluated with Dr. Ballesteros Surgical site cleaned with saline and dressed with betadine, DSD, THOMAS Pt to receive 1 more week of IV abx s/p surgery Patient to be partial weight bearing to right heel with use of surgical shoe Continue IV abx per ID Will continue to follow patient while in house
== END 2018-11-22 14:48 | disposition home or self-care (01) ==
LOC: C.ER 17:49 → C.9E 20:03 → C.6T 22:05
PROVIDERS: ADMIT Internal Medicine; ATTEND Internal Medicine
PROC: 0Y6M0ZB Detachment at Right Foot, Partial 2nd Ray, Open Approach (ICD-10-PCS; principal; 2018-11-20 07:30)
DX: E11.69 Type 2 diabetes mellitus with other specified complication (principal); L03.115 Cellulitis of right lower limb; L03.116 Cellulitis of left lower limb; E11.52 Type 2 diabetes mellitus with diabetic peripheral angiopathy with gangrene; G40.909 Epilepsy, unspecified, not intractable, without status epilepticus; I10 Essential (primary) hypertension; Z59.0 Homelessness; Z99.3 Dependence on wheelchair; M86.9 Osteomyelitis, unspecified; M06.9 Rheumatoid arthritis, unspecified; F10.229 Alcohol dependence with intoxication, unspecified

== ENCOUNTER 2018-12-30 20:50 | Emergency (ER) | payer MEDICAID | END 2018-12-31 05:43 | disposition home or self-care (01) | LOC: C.ER 12-31 05:43 ==

== ENCOUNTER 2018-12-31 21:48 | Emergency (ER) | payer MEDICAID | END 2019-01-01 05:45 | disposition home or self-care (01) | LOC: C.ER 01-01 05:45 ==

== ENCOUNTER 2019-01-01 20:49 | Emergency (ER) | payer MEDICAID ==
[2019-01-01 20:49] VITALS: BMI 27.1
--- NOTE | 2019-01-01 21:09 | C.PDOC ---
History Of Present Illness The patient presents to the ED with acute alcohol intoxication. Patient is familiar to this ED and has had many prior visits with similar presentation. Patient admits to drinking today and is requesting a place to sleep for the night. He offers no complaints at this time. Time Seen by Provider: 01/01/19 21:06 History Per: Patient History/Exam Limitations: intoxication Onset/Duration Of Symptoms: Hrs Current Symptoms Are (Timing): Still Present Suicide/Self Injury Attempted (Context): None Modifying Factor(s): Alcohol Severity: None Pain Scale Rating Of: 0 Associated Symptoms: denies: Suicidal Thoughts, Suicidal Plan Involuntary Hold By: None Recent travel outside of the [place]: No Additional History Per: Patient Past Medical History Reviewed: Historical Data, Nursing Documentation, Vital Signs - Medical History PMH: Anxiety, Arthritis, Bronchitis, CAD, Depression, Diabetes (Pt. did not disclose to rewriter, not aware), Fractures, Gastritis, Gall Bladder Disease (s/p cholecystectomy), HTN, Post Traumatic Stress Disorder, Rheumatoid Arthritis, Seizures, Chronic Pain Denies: Chronic Kidney Disease Surgical History: Cholecystectomy - [facility] Procedures ALCOHOL DETOXIFICATION (07/04/15) APPLICATION OF SPLINT (03/20/13) CLOSURE SKIN & SUBCUTANEOUS NEC (08/14/13) DETACHMENT AT RIGHT FOOT, PARTIAL 2ND RAY, OPEN APPROACH (11/14/18) DETOXIFICATION SERVICES FOR SUBSTANCE ABUSE TREATMENT (03/22/16) ESOPHAGOGASTRODUODENOSCOPY [EGD] W/CLOSED BIOPSY (02/16/15) INSERTION OF ENDOTRACHEAL AIRWAY INTO TRACHEA, VIA OPENING (09/11/18) OTHER GROUP THERAPY (03/12/13) PHYSICAL THERAPY NEC (07/04/15) RESPIRATORY VENTILATION, 24-96 CONSECUTIVE HOURS (09/11/18) TETANUS TOXOID ADMINIST (01/19/14) Family History: States: No Known Family Hx - Social History Hx Tobacco Use: No Hx Alcohol Use: Yes Hx Substance Use: No - Immunization History Hx Tetanus Toxoid Vaccination: No Hx Influenza Vaccination: No Hx Pneumococcal Vaccination: No Review Of Systems Constitutional: Negative for: Fever, Chills Cardiovascular: Negative for: Chest Pain, Palpitations Respiratory: Negative for: Cough, Shortness of Breath Gastrointestinal: Negative for: Nausea, Vomiting, Abdominal Pain Skin: Negative for: Rash, Lesions, Jaundice, Bruising Psych: Positive for: Other (alcohol intoxication ). Negative for: Suicidal ideation Physical Exam - Physical Exam Appears: Non-toxic, No Acute Distress, Other (visibly intoxicated ) Skin: Warm, Dry Head: Normacephalic Oral Mucosa: Moist, Other (alcohol on breath ) Neck: Supple Chest: Symmetrical, No Deformity Respiratory: No Accessory Muscle Use Extremity: Normal ROM Neurological/Psych: Other (arousable to touch and verbal stimuli ) ED Course And Treatment O2 Sat by Pulse Oximetry: 96 (on RA) Pulse Ox Interpretation: Normal Reevaluation Time: 05:32 Reassessment Condition: Improved Disposition Counseled Patient/Family Regarding: Studies Performed, Diagnosis, Need For Followup - Disposition Referrals: [facility] at [facility] [Outside] Disposition: HOME/ ROUTINE Disposition Time: 21:07 Condition: FAIR Instructions: Alcohol Abuse and Alcoholism (DC) - Clinical Impression Clinical Impression: Alcohol intoxication, Alcohol abuse, daily use - Scribe Statement The provider has reviewed the documentation as recorded by the Scribe (Kari Fajardo) Provider Attestation: All medical record entries made by the Scribe were at my direction and personally dictated by me. I have reviewed the chart and agree that the record accurately reflects my personal performance of the history, physical exam, medical decision making, and the department course for this patient. I have also personally directed, reviewed, and agree with the discharge instructions and disposition.
[2019-01-02 05:32] VITALS: O2SAT 96
[2019-01-02 05:37] VITALS: BP 118/79; PULSE 91; RESP 18; TEMP 98.3
== END 2019-01-02 04:15 | disposition home or self-care (01) ==
LOC: C.ER 20:49
DX: F10.129 Alcohol abuse with intoxication, unspecified (principal); E11.9 Type 2 diabetes mellitus without complications; I25.10 Atherosclerotic heart disease of native coronary artery without angina pectoris

== ENCOUNTER 2019-01-02 20:37 | Emergency (ER) | payer MEDICAID ==
[2019-01-02 20:38] VITALS: BMI 27.1
--- NOTE | 2019-01-02 21:04 | C.PDOC ---
Time Seen by Provider: 01/02/19 21:03 Chief Complaint (Nursing): Lower Extremity Problem/Injury Past Medical History Vital Signs: Last Vital Signs Temp 97.6 F 01/02/19 20:58 Pulse 78 01/02/19 20:58 Resp 16 01/02/19 20:58 BP 117/76 01/02/19 20:58 Pulse Ox 96 01/02/19 20:58 - Medical History PMH: Anxiety, Arthritis, Bronchitis, CAD, Depression, Diabetes (Pt. 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), Fractures, Gastritis, Gall Bladder Disease (s/p cholecystectomy), HTN, Post Traumatic Stress Disorder, Rheumatoid Arthritis, Seizures, Chronic Pain Denies: Chronic Kidney Disease Surgical History: Cholecystectomy - [facility] Procedures ALCOHOL DETOXIFICATION (07/04/15) APPLICATION OF SPLINT (03/20/13) CLOSURE SKIN & SUBCUTANEOUS NEC (08/14/13) DETACHMENT AT RIGHT FOOT, PARTIAL 2ND RAY, OPEN APPROACH (11/14/18) DETOXIFICATION SERVICES FOR SUBSTANCE ABUSE TREATMENT (03/22/16) ESOPHAGOGASTRODUODENOSCOPY [EGD] W/CLOSED BIOPSY (02/16/15) INSERTION OF ENDOTRACHEAL AIRWAY INTO TRACHEA, VIA OPENING (09/11/18) OTHER GROUP THERAPY (03/12/13) PHYSICAL THERAPY NEC (07/04/15) RESPIRATORY VENTILATION, 24-96 CONSECUTIVE HOURS (09/11/18) TETANUS TOXOID ADMINIST (01/19/14) Family History: States: Unknown Family Hx - Social History Hx Tobacco Use: No Hx Alcohol Use: Yes Hx Substance Use: No - Immunization History Hx Tetanus Toxoid Vaccination: No Hx Influenza Vaccination: No Hx Pneumococcal Vaccination: No ED Course And Treatment O2 Sat by Pulse Oximetry: 96 Disposition Counseled Patient/Family Regarding: Studies Performed, Diagnosis, Need For Followup - Disposition Referrals: [facility] [Outside] Disposition: HOME/ ROUTINE Disposition Time: 21:03 Condition: FAIR Instructions: Alcohol Abuse and Alcoholism (DC) - Clinical Impression Clinical Impression: Alcohol intoxication, Chronic alcoholism
[2019-01-03 04:24] VITALS: BP 106/67; PULSE 88; RESP 18; TEMP 97.6; O2SAT 98
== END 2019-01-03 05:44 | disposition home or self-care (01) ==
LOC: C.ER 20:37
DX: F10.229 Alcohol dependence with intoxication, unspecified (principal); Y90.9 Presence of alcohol in blood, level not specified

== ENCOUNTER 2019-01-03 21:16 | Emergency (ER) | payer MEDICAID ==
[2019-01-03 21:17] VITALS: BMI 27.1
[2019-01-03 21:38] VITALS: O2SAT 100
--- NOTE | 2019-01-03 22:09 | C.PDOC ---
History Of Present Illness 58 year old male presents with acute ETOH intoxication, requesting a place to spend the night. Denies any complaints at this time. Chief Complaint (Nursing): Substance Abuse History Per: Patient History/Exam Limitations: no limitations Onset/Duration Of Symptoms: Hrs Current Symptoms Are (Timing): Still Present Suicide/Self Injury Attempted (Context): None Modifying Factor(s): Alcohol Involuntary Hold By: None Recent travel outside of the [place]: No Past Medical History Reviewed: Historical Data, Nursing Documentation, Vital Signs Vital Signs: Last Vital Signs Temp 97.6 F 01/03/19 21:32 Pulse 90 01/03/19 21:32 Resp 18 01/03/19 21:32 BP 141/85 01/03/19 21:32 Pulse Ox 100 01/03/19 21:32 - Medical History PMH: Anxiety, Arthritis, Bronchitis, CAD, Depression, Diabetes (Pt. did not disclose to singer songwriter, not aware), Fractures, Gastritis, Gall Bladder Disease (s/p cholecystectomy), HTN, Post Traumatic Stress Disorder, Rheumatoid Arthritis, Seizures, Chronic Pain Denies: Chronic Kidney Disease Surgical History: Cholecystectomy - [facility] Procedures ALCOHOL DETOXIFICATION (07/04/15) APPLICATION OF SPLINT (03/20/13) CLOSURE SKIN & SUBCUTANEOUS NEC (08/14/13) DETACHMENT AT RIGHT FOOT, PARTIAL 2ND RAY, OPEN APPROACH (11/14/18) DETOXIFICATION SERVICES FOR SUBSTANCE ABUSE TREATMENT (03/22/16) ESOPHAGOGASTRODUODENOSCOPY [EGD] W/CLOSED BIOPSY (02/16/15) INSERTION OF ENDOTRACHEAL AIRWAY INTO TRACHEA, VIA OPENING (09/11/18) OTHER GROUP THERAPY (03/12/13) PHYSICAL THERAPY NEC (07/04/15) RESPIRATORY VENTILATION, 24-96 CONSECUTIVE HOURS (09/11/18) TETANUS TOXOID ADMINIST (01/19/14) Family History: States: Unknown Family Hx - Social History Hx Tobacco Use: No Hx Alcohol Use: Yes Hx Substance Use: No - Immunization History Hx Tetanus Toxoid Vaccination: No Hx Influenza Vaccination: No Hx Pneumococcal Vaccination: No Review Of Systems Constitutional: Negative for: Fever, Chills Cardiovascular: Negative for: Chest Pain, Palpitations Respiratory: Negative for: Cough, Shortness of Breath Gastrointestinal: Negative for: Nausea, Vomiting Neurological: Negative for: Weakness, Numbness Physical Exam - Physical Exam Appears: Non-toxic, Other (ETOH on breath, no sign of injury) Skin: Normal Color, Warm, Dry Head: Atraumatic, Normacephalic Eye(s): bilateral: Normal Inspection Oral Mucosa: Moist Chest: Symmetrical, No Tenderness Cardiovascular: Rhythm Regular Respiratory: Normal Breath Sounds, No Rales, No Rhonchi, No Wheezing Gastrointestinal/Abdominal: Soft, No Tenderness Neurological/Psych: Oriented x3 ED Course And Treatment O2 Sat by Pulse Oximetry: 100 Disposition Counseled Patient/Family Regarding: Diagnosis - Disposition Referrals: [facility] [Outside] Disposition: HOME/ ROUTINE Disposition Time: 05:36 Condition: STABLE Instructions: Drug Abuse and Drug Addiction (DC) Forms: Voices (Albanian) - POA Present On Arrival: None - Clinical Impression Clinical Impression: Alcohol abuse - Scribe Statement The provider has reviewed the documentation as recorded by the Scribe Fabián Ramirez All medical record entries made by the Scribe were at my direction and personally dictated by me. I have reviewed the chart and agree that the record accurately reflects my personal performance of the history, physical exam, medical decision making, and the department course for this patient. I have also personally directed, reviewed, and agree with the discharge instructions and disposition.
[2019-01-04 03:29] VITALS: BP 138/81; PULSE 82; RESP 16; TEMP 98.2
== END 2019-01-04 05:40 | disposition home or self-care (01) ==
LOC: C.ER 21:16
DX: F10.129 Alcohol abuse with intoxication, unspecified (principal); E11.9 Type 2 diabetes mellitus without complications; I25.10 Atherosclerotic heart disease of native coronary artery without angina pectoris

== ENCOUNTER 2019-01-04 21:05 | Emergency (ER) | payer MEDICAID ==
[2019-01-04 21:06] VITALS: BMI 27.1
--- NOTE | 2019-01-04 21:38 | C.PDOC ---
Time Seen by Provider: 01/04/19 21:36 Chief Complaint (Nursing): Substance Abuse Past Medical History - Medical History PMH: Anxiety, Arthritis, Bronchitis, CAD, Depression, Diabetes (Pt. did not disclose to lyric writer, not aware), Fractures, Gastritis, Gall Bladder Disease (s/p cholecystectomy), HTN, Post Traumatic Stress Disorder, Rheumatoid Arthritis, Seizures, Chronic Pain Denies: Chronic Kidney Disease Surgical History: Cholecystectomy - [facility] Procedures ALCOHOL DETOXIFICATION (07/04/15) APPLICATION OF SPLINT (03/20/13) CLOSURE SKIN & SUBCUTANEOUS NEC (08/14/13) DETACHMENT AT RIGHT FOOT, PARTIAL 2ND RAY, OPEN APPROACH (11/14/18) DETOXIFICATION SERVICES FOR SUBSTANCE ABUSE TREATMENT (03/22/16) ESOPHAGOGASTRODUODENOSCOPY [EGD] W/CLOSED BIOPSY (02/16/15) INSERTION OF ENDOTRACHEAL AIRWAY INTO TRACHEA, VIA OPENING (09/11/18) OTHER GROUP THERAPY (03/12/13) PHYSICAL THERAPY NEC (07/04/15) RESPIRATORY VENTILATION, 24-96 CONSECUTIVE HOURS (09/11/18) TETANUS TOXOID ADMINIST (01/19/14) Family History: States: Unknown Family Hx - Social History Hx Tobacco Use: No Hx Alcohol Use: Yes Hx Substance Use: No - Immunization History Hx Tetanus Toxoid Vaccination: No Hx Influenza Vaccination: No Hx Pneumococcal Vaccination: No Disposition Counseled Patient/Family Regarding: Studies Performed, Diagnosis, Need For Followup - Disposition Disposition: HOME/ ROUTINE Disposition Time: 21:37 Condition: FAIR Instructions: Alcohol Abuse and Alcoholism (DC) - Clinical Impression Clinical Impression: Alcohol intoxication, Chronic alcoholism
--- NOTE | 2019-01-04 21:40 | C.PDOC ---
History Of Present Illness 58 year old male presents to the emergency department for alcohol intoxication. Patient complains of lower extremity pain. Patient is a known malingerer throughout the ED. Time Seen by Provider: 01/04/19 21:36 Chief Complaint (Nursing): Substance Abuse History Per: Patient History/Exam Limitations: no limitations Onset/Duration Of Symptoms: Days Current Symptoms Are (Timing): Still Present Suicide/Self Injury Attempted (Context): None Modifying Factor(s): Alcohol Severity: None Past Medical History Reviewed: Historical Data, Nursing Documentation, Vital Signs - Medical History PMH: Anxiety, Arthritis, Bronchitis, CAD, Depression, Diabetes (Pt. did not disclose to global technical writer, not aware), Fractures, Gastritis, Gall Bladder Disease (s/p cholecystectomy), HTN, Post Traumatic Stress Disorder, Rheumatoid Arthritis, Seizures, Chronic Pain Denies: Chronic Kidney Disease Surgical History: Cholecystectomy - [facility] Procedures ALCOHOL DETOXIFICATION (07/04/15) APPLICATION OF SPLINT (03/20/13) CLOSURE SKIN & SUBCUTANEOUS NEC (08/14/13) DETACHMENT AT RIGHT FOOT, PARTIAL 2ND RAY, OPEN APPROACH (11/14/18) DETOXIFICATION SERVICES FOR SUBSTANCE ABUSE TREATMENT (03/22/16) ESOPHAGOGASTRODUODENOSCOPY [EGD] W/CLOSED BIOPSY (02/16/15) INSERTION OF ENDOTRACHEAL AIRWAY INTO TRACHEA, VIA OPENING (09/11/18) OTHER GROUP THERAPY (03/12/13) PHYSICAL THERAPY NEC (07/04/15) RESPIRATORY VENTILATION, 24-96 CONSECUTIVE HOURS (09/11/18) TETANUS TOXOID ADMINIST (01/19/14) Family History: States: No Known Family Hx - Social History Hx Tobacco Use: No Hx Alcohol Use: Yes Hx Substance Use: No - Immunization History Hx Tetanus Toxoid Vaccination: No Hx Influenza Vaccination: No Hx Pneumococcal Vaccination: No Review Of Systems Constitutional: Negative for: Fever, Chills Cardiovascular: Negative for: Chest Pain Respiratory: Negative for: Cough, Shortness of Breath Gastrointestinal: Negative for: Nausea, Vomiting, Abdominal Pain, Diarrhea Musculoskeletal: Positive for: Leg Pain (b/l) Physical Exam - Physical Exam Appears: Non-toxic, No Acute Distress Skin: Warm, Dry Head: Normacephalic Eye(s): bilateral: Normal Inspection, PERRL, EOMI Nose: Normal, No Deformity Oral Mucosa: Moist Throat: No Erythema, No Exudate Neck: Supple Chest: Symmetrical, No Tenderness Cardiovascular: Rhythm Regular, No Murmur Respiratory: No Rales, No Rhonchi, No Wheezing Gastrointestinal/Abdominal: Soft, No Tenderness, No Guarding, No Rebound ED Course And Treatment O2 Sat by Pulse Oximetry: 95 Pulse Ox Interpretation: Normal Reevaluation Time: 03:19 Reassessment Condition: Improved Disposition Counseled Patient/Family Regarding: Studies Performed, Diagnosis - Disposition Referrals: [facility] at [facility] [Outside] Disposition: HOME/ ROUTINE Disposition Time: 01:00 Condition: FAIR Instructions: Alcohol Abuse and Alcoholism (DC) Forms: [facility] (German) - Clinical Impression Clinical Impression: Alcohol intoxication, Chronic alcoholism - Scribe Statement The provider has reviewed the documentation as recorded by the Scribe (Jewel Schaeffer) Provider Attestation: All medical record entries made by the Scribe were at my direction and personally dictated by me. I have reviewed the chart and agree that the record accurately reflects my personal performance of the history, physical exam, medical decision making, and the department course for this patient. I have also personally directed, reviewed, and agree with the discharge instructions and disposition.
[2019-01-05 03:43] VITALS: BP 116/73; PULSE 91; RESP 18; TEMP 98.3; O2SAT 96
== END 2019-01-05 03:43 | disposition home or self-care (01) ==
LOC: C.ER 21:05
DX: F10.229 Alcohol dependence with intoxication, unspecified (principal); Y90.9 Presence of alcohol in blood, level not specified

== ENCOUNTER 2019-01-05 22:00 | Emergency (ER) | payer MEDICAID ==
[2019-01-05 22:00] VITALS: BMI 27.1
[2019-01-05 22:16] VITALS: BP 147/96; PULSE 81; RESP 16; TEMP 98.3; O2SAT 97
--- NOTE | 2019-01-05 22:51 | C.PDOC ---
Time Seen by Provider: 01/05/19 22:49 Chief Complaint (Nursing): Substance Abuse Past Medical History Vital Signs: Last Vital Signs Temp 98.3 F 01/05/19 22:05 Pulse 81 01/05/19 22:05 Resp 16 01/05/19 22:05 BP 147/96 H 01/05/19 22:05 Pulse Ox 97 01/05/19 22:05 - Medical History PMH: Anxiety, Arthritis, Bronchitis, CAD, Depression, Diabetes (Pt. did not disclose to quality analyst/technical writer, not aware), Fractures, Gastritis, Gall Bladder Disease (s/p cholecystectomy), HTN, Post Traumatic Stress Disorder, Rheumatoid Arthritis, Seizures, Chronic Pain Denies: Chronic Kidney Disease Surgical History: Cholecystectomy - [facility] Procedures ALCOHOL DETOXIFICATION (07/04/15) APPLICATION OF SPLINT (03/20/13) CLOSURE SKIN & SUBCUTANEOUS NEC (08/14/13) DETACHMENT AT RIGHT FOOT, PARTIAL 2ND RAY, OPEN APPROACH (11/14/18) DETOXIFICATION SERVICES FOR SUBSTANCE ABUSE TREATMENT (03/22/16) ESOPHAGOGASTRODUODENOSCOPY [EGD] W/CLOSED BIOPSY (02/16/15) INSERTION OF ENDOTRACHEAL AIRWAY INTO TRACHEA, VIA OPENING (09/11/18) OTHER GROUP THERAPY (03/12/13) PHYSICAL THERAPY NEC (07/04/15) RESPIRATORY VENTILATION, 24-96 CONSECUTIVE HOURS (09/11/18) TETANUS TOXOID ADMINIST (01/19/14) Family History: States: Unknown Family Hx - Social History Hx Tobacco Use: No Hx Alcohol Use: Yes Hx Substance Use: No - Immunization History Hx Tetanus Toxoid Vaccination: No Hx Influenza Vaccination: No Hx Pneumococcal Vaccination: No ED Course And Treatment O2 Sat by Pulse Oximetry: 97 Medical Decision Making Medical Decision Making: typical alcohol abuse no acute issues malingering Disposition Doctor Will See Patient In The: Office Counseled Patient/Family Regarding: Studies Performed, Diagnosis - Disposition Disposition: HOME/ ROUTINE Disposition Time: 22:50 Condition: GOOD - Clinical Impression Clinical Impression: Alcoholism /alcohol abuse
== END 2019-01-06 | disposition home or self-care (01) ==
LOC: C.ER 22:00
DX: F10.20 Alcohol dependence, uncomplicated (principal); E11.9 Type 2 diabetes mellitus without complications; F32.9 Major depressive disorder, single episode, unspecified; I25.10 Atherosclerotic heart disease of native coronary artery without angina pectoris

== ENCOUNTER 2019-01-06 21:18 | Emergency (ER) | payer MEDICAID ==
[2019-01-06 21:18] VITALS: BMI 27.1
--- NOTE | 2019-01-06 21:51 | C.PDOC ---
History Of Present Illness 58 year old male presents to the ED requesting for a place to sleep and spend the night. Patient admits to drinking alcohol tonight, has multiple prior visits to the ED for same presentation. Patient denies SI/HI, hallucinations, injury, fall, trauma. Time Seen by Provider: 01/06/19 21:50 Chief Complaint (Nursing): Substance Abuse History Per: Patient History/Exam Limitations: intoxication Onset/Duration Of Symptoms: Hrs Current Symptoms Are (Timing): Still Present Suicide/Self Injury Attempted (Context): None Modifying Factor(s): Alcohol Associated Symptoms: denies: Depression, Suicidal Thoughts, Suicidal Plan Recent travel outside of the [place]: No Additional History Per: Patient Past Medical History Reviewed: Historical Data, Nursing Documentation, Vital Signs - Medical History PMH: Anxiety, Arthritis, Bronchitis, CAD, Depression, Diabetes (Pt. did not disclose to sheet writer, not aware), Fractures, Gastritis, Gall Bladder Disease (s/p cholecystectomy), HTN, Post Traumatic Stress Disorder, Rheumatoid Arthritis, Seizures, Chronic Pain Denies: Chronic Kidney Disease Surgical History: Cholecystectomy - [facility] Procedures ALCOHOL DETOXIFICATION (07/04/15) APPLICATION OF SPLINT (03/20/13) CLOSURE SKIN & SUBCUTANEOUS NEC (08/14/13) DETACHMENT AT RIGHT FOOT, PARTIAL 2ND RAY, OPEN APPROACH (11/14/18) DETOXIFICATION SERVICES FOR SUBSTANCE ABUSE TREATMENT (03/22/16) ESOPHAGOGASTRODUODENOSCOPY [EGD] W/CLOSED BIOPSY (02/16/15) INSERTION OF ENDOTRACHEAL AIRWAY INTO TRACHEA, VIA OPENING (09/11/18) OTHER GROUP THERAPY (03/12/13) PHYSICAL THERAPY NEC (07/04/15) RESPIRATORY VENTILATION, 24-96 CONSECUTIVE HOURS (09/11/18) TETANUS TOXOID ADMINIST (01/19/14) Family History: States: Unknown Family Hx - Social History Hx Tobacco Use: No Hx Alcohol Use: Yes Hx Substance Use: No - Immunization History Hx Tetanus Toxoid Vaccination: No Hx Influenza Vaccination: No Hx Pneumococcal Vaccination: No Review Of Systems Constitutional: Negative for: Fever, Chills Eyes: Negative for: Vision Change Cardiovascular: Negative for: Chest Pain Respiratory: Negative for: Shortness of Breath Gastrointestinal: Negative for: Nausea, Vomiting, Abdominal Pain Skin: Negative for: Rash Psych: Negative for: Depression, Suicidal ideation Physical Exam - Physical Exam Appears: Non-toxic, No Acute Distress Skin: Warm, Dry Head: Normacephalic Eye(s): bilateral: Normal Inspection Oral Mucosa: Moist Neck: Supple Chest: Symmetrical Cardiovascular: Rhythm Regular Respiratory: No Rales, No Rhonchi, No Wheezing Gastrointestinal/Abdominal: Soft, No Tenderness, No Guarding, No Rebound Extremity: Bilateral: Atraumatic, Normal Color And Temperature, Normal ROM Neurological/Psych: Oriented x3, Normal Speech, Normal Cognition Gait: With Assistance (wheelchair) ED Course And Treatment O2 Sat by Pulse Oximetry: 97 (On RA) Pulse Ox Interpretation: Normal Reevaluation Time: 05:35 Reassessment Condition: Improved Disposition Counseled Patient/Family Regarding: Studies Performed, Diagnosis, Need For Followup - Disposition Referrals: [facility] [Outside] Disposition: HOME/ ROUTINE Disposition Time: 21:51 Condition: FAIR Instructions: Alcohol Abuse and Alcoholism (DC) Forms: [facility] (Cit[place]) - Clinical Impression Clinical Impression: Chronic alcoholism, Alcohol intoxication - Scribe Statement The provider has reviewed the documentation as recorded by the Scribe Woo Brown All medical record entries made by the Scribe were at my direction and personally dictated by me. I have reviewed the chart and agree that the record accurately reflects my personal performance of the history, physical exam, medical decision making, and the department course for this patient. I have also personally directed, reviewed, and agree with the discharge instructions and disposition.
[2019-01-06 21:54] VITALS: TEMP 99.1; O2SAT 97
[2019-01-07 06:16] VITALS: RESP 20
[2019-01-07 06:27] VITALS: BP 134/88; PULSE 88
== END 2019-01-07 05:55 | disposition home or self-care (01) ==
LOC: C.ER 21:18
DX: F10.229 Alcohol dependence with intoxication, unspecified (principal); Y90.9 Presence of alcohol in blood, level not specified

== ENCOUNTER 2019-01-08 18:30 | Emergency (ER) | payer MEDICAID ==
[2019-01-08 18:31] VITALS: BMI 27.1
--- NOTE | 2019-01-08 19:29 | C.PDOC ---
History Of Present Illness 58 year old male presents to the ED c/o right foot pain. Patient has multiple previous visits to the ED for alcohol intoxication. Patient admits to drinking alcohol today. Patient denies SI/HI, hallucination, injury, fall, trauma. Time Seen by Provider: 01/08/19 19:07 Chief Complaint (Nursing): Lower Extremity Problem/Injury History Per: Patient History/Exam Limitations: intoxication Onset/Duration Of Symptoms: Hrs Current Symptoms Are (Timing): Still Present Recent travel outside of the [place]: No Additional History Per: Patient Past Medical History Reviewed: Historical Data, Nursing Documentation, Vital Signs Vital Signs: Last Vital Signs Temp 98.6 F 01/08/19 18:34 Pulse 105 H 01/08/19 18:34 Resp 20 01/08/19 18:34 BP 154/98 H 01/08/19 18:34 Pulse Ox 96 01/08/19 18:34 - Medical History PMH: Anxiety, Arthritis, Bronchitis, CAD, Depression, Diabetes (Pt. did not disclose to bond writer, not aware), Fractures, Gastritis, Gall Bladder Disease (s/p cholecystectomy), HTN, Post Traumatic Stress Disorder, Rheumatoid Arthritis, Seizures, Chronic Pain Denies: Chronic Kidney Disease Surgical History: Cholecystectomy - [facility] Procedures ALCOHOL DETOXIFICATION (07/04/15) APPLICATION OF SPLINT (03/20/13) CLOSURE SKIN & SUBCUTANEOUS NEC (08/14/13) DETACHMENT AT RIGHT FOOT, PARTIAL 2ND RAY, OPEN APPROACH (11/14/18) DETOXIFICATION SERVICES FOR SUBSTANCE ABUSE TREATMENT (03/22/16) ESOPHAGOGASTRODUODENOSCOPY [EGD] W/CLOSED BIOPSY (02/16/15) INSERTION OF ENDOTRACHEAL AIRWAY INTO TRACHEA, VIA OPENING (09/11/18) OTHER GROUP THERAPY (03/12/13) PHYSICAL THERAPY NEC (07/04/15) RESPIRATORY VENTILATION, 24-96 CONSECUTIVE HOURS (09/11/18) TETANUS TOXOID ADMINIST (01/19/14) Family History: States: Unknown Family Hx - Social History Hx Tobacco Use: No Hx Alcohol Use: Yes Hx Substance Use: No - Immunization History Hx Tetanus Toxoid Vaccination: No Hx Influenza Vaccination: No Hx Pneumococcal Vaccination: No Review Of Systems Constitutional: Negative for: Fever, Chills Cardiovascular: Negative for: Chest Pain Respiratory: Negative for: Shortness of Breath Gastrointestinal: Negative for: Nausea, Vomiting, Abdominal Pain Musculoskeletal: Positive for: Foot Pain Neurological: Negative for: Weakness, Numbness Psych: Negative for: Depression, Suicidal ideation Physical Exam - Physical Exam Appears: Non-toxic, No Acute Distress Skin: Normal Color, Warm, Dry Head: Atraumatic, Normacephalic Eye(s): bilateral: Normal Inspection Neck: Normal ROM, Supple Chest: Symmetrical Cardiovascular: Rhythm Regular Respiratory: Normal Breath Sounds, No Rales, No Rhonchi, No Wheezing Gastrointestinal/Abdominal: Soft, No Tenderness Extremity: Capillary Refill (< 2 seconds) Extremity: Right: Other (right first toe amputated, well healed, dry, no sigsn of infection), Bilateral: Atraumatic, Normal ROM Pulses: Left Dorsalis Pedis: Normal, Right Dorsalis Pedis: Normal Neurological/Psych: Oriented x3, Other (intoxicated) Gait: With Assistance (wheelchair) ED Course And Treatment O2 Sat by Pulse Oximetry: 96 (On RA) Pulse Ox Interpretation: Normal Reevaluation Time: 20:29 Reassessment Condition: Improved (CLEAR SPEECH AND THOUGHT REQUESTS DC HOME) Disposition Counseled Patient/Family Regarding: Diagnosis, Need For Followup - Disposition Referrals: [facility] [Outside] [facility] [Outside] [facility] [Other] Disposition: HOME/ ROUTINE Disposition Time: 20:28 Condition: GOOD Instructions: Alcohol Abuse and Alcoholism (DC), Chronic Pain (DC) Forms: [facility] (Pashto) - Clinical Impression Clinical Impression: Chronic alcoholism, Foot pain - Scribe Statement The provider has reviewed the documentation as recorded by the Scribe Woo Brown All medical record entries made by the Scribe were at my direction and personally dictated by me. I have reviewed the chart and agree that the record accurately reflects my personal performance of the history, physical exam, medical decision making, and the department course for this patient. I have also personally directed, reviewed, and agree with the discharge instructions and disposition.
[2019-01-08 20:37] VITALS: BP 149/89; PULSE 99; RESP 18; TEMP 98.7; O2SAT 97
== END 2019-01-08 20:35 | disposition home or self-care (01) ==
LOC: C.ER 18:30
DX: M79.671 Pain in right foot (principal); F10.229 Alcohol dependence with intoxication, unspecified; Y90.9 Presence of alcohol in blood, level not specified

== ENCOUNTER 2019-01-08 22:10 | Emergency (ER) | payer MEDICAID ==
--- NOTE | 2019-01-08 22:25 | C.PDOC ---
History Of Present Illness 58 year old male presents to the ED intoxicated c/o right foot pain. Patient has multiple prior visits to the ED for intoxication. Patient admits to drinking alcohol today. Patient denies SI/HI, hallucinations, other medical complaints at this time. Time Seen by Provider: 01/08/19 22:25 Chief Complaint (Nursing): Substance Abuse History Per: Patient History/Exam Limitations: intoxication Onset/Duration Of Symptoms: Hrs Current Symptoms Are (Timing): Still Present Suicide/Self Injury Attempted (Context): None Modifying Factor(s): Alcohol Associated Symptoms: denies: Depression, Suicidal Thoughts, Suicidal Plan Recent travel outside of the [place]: No Additional History Per: Patient Past Medical History Reviewed: Historical Data, Nursing Documentation, Vital Signs - Medical History PMH: Anxiety, Arthritis, Bronchitis, CAD, Depression, 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 writer, not aware), Fractures, Gastritis, Gall Bladder Disease (s/p cholecystectomy), HTN, Post Traumatic Stress Disorder, Rheumatoid Arthritis, Seizures, Chronic Pain Denies: Chronic Kidney Disease Surgical History: Cholecystectomy - [facility] Procedures ALCOHOL DETOXIFICATION (07/04/15) APPLICATION OF SPLINT (03/20/13) CLOSURE SKIN & SUBCUTANEOUS NEC (08/14/13) DETACHMENT AT RIGHT FOOT, PARTIAL 2ND RAY, OPEN APPROACH (11/14/18) DETOXIFICATION SERVICES FOR SUBSTANCE ABUSE TREATMENT (03/22/16) ESOPHAGOGASTRODUODENOSCOPY [EGD] W/CLOSED BIOPSY (02/16/15) INSERTION OF ENDOTRACHEAL AIRWAY INTO TRACHEA, VIA OPENING (09/11/18) OTHER GROUP THERAPY (03/12/13) PHYSICAL THERAPY NEC (07/04/15) RESPIRATORY VENTILATION, 24-96 CONSECUTIVE HOURS (09/11/18) TETANUS TOXOID ADMINIST (01/19/14) Family History: States: Unknown Family Hx - Social History Hx Tobacco Use: No Hx Alcohol Use: Yes Hx Substance Use: No - Immunization History Hx Tetanus Toxoid Vaccination: No Hx Influenza Vaccination: No Hx Pneumococcal Vaccination: No Review Of Systems Constitutional: Negative for: Fever, Chills Cardiovascular: Negative for: Chest Pain Respiratory: Negative for: Shortness of Breath Gastrointestinal: Negative for: Vomiting, Abdominal Pain Musculoskeletal: Positive for: Foot Pain Skin: Negative for: Rash Psych: Negative for: Depression, Suicidal ideation Physical Exam - Physical Exam Appears: Non-toxic, No Acute Distress, Other (intoxicated) Skin: Normal Color, Warm, Dry Head: Atraumatic, Normacephalic Eye(s): bilateral: Normal Inspection Neck: Normal ROM, Supple Chest: Symmetrical Cardiovascular: Rhythm Regular Respiratory: Normal Breath Sounds, No Rales, No Rhonchi, No Wheezing Gastrointestinal/Abdominal: Soft, No Tenderness Extremity: Capillary Refill (< 2 seconds) Extremity: Right: Other (right foot 1st toe amputated, clean , healed and dry area. No signs of infections, non tender), Bilateral: Atraumatic, Normal ROM Pulses: Left Dorsalis Pedis: Normal, Right Dorsalis Pedis: Normal Neurological/Psych: Oriented x3, Other (intoxicated) Gait: With Assistance (wheelchair) ED Course And Treatment O2 Sat by Pulse Oximetry: 98 (ON RA) Pulse Ox Interpretation: Normal Disposition - Disposition Referrals: Tino Clark MD [Staff Provider] - Disposition Time: 01:00 Condition: STABLE Forms: [facility] (Bulgarian) - Clinical Impression Clinical Impression: Alcohol intoxication, Chronic foot pain - Scribe Statement The provider has reviewed the documentation as recorded by the Scribe Woo Brown All medical record entries made by the Scribe were at my direction and personally dictated by me. I have reviewed the chart and agree that the record accurately reflects my personal performance of the history, physical exam, medical decision making, and the department course for this patient. I have also personally directed, reviewed, and agree with the discharge instructions and disposition. Physician Patient Turnover Patient Signed Over To: Nara Perez Handoff Comments: FU SOBRIETY DISPO
[2019-01-09 06:29] VITALS: BP 125/78; PULSE 101; RESP 16; TEMP 97.9; O2SAT 96
== END 2019-01-09 06:28 | disposition home or self-care (01) ==
LOC: C.ER 22:10
DX: G89.29 Other chronic pain (principal); M79.671 Pain in right foot; F10.129 Alcohol abuse with intoxication, unspecified; Y90.9 Presence of alcohol in blood, level not specified

== ENCOUNTER 2019-01-09 21:03 | Emergency (ER) | payer MEDICAID ==
[2019-01-09 21:03] VITALS: BMI 27.1
--- NOTE | 2019-01-09 21:33 | C.PDOC ---
History Of Present Illness 58 year old male presents to the emergency department via wheelchair. Patient is well-known throughout the ED and is currently looking for a place to stay the night. He offers no complaints at this time. Time Seen by Provider: 01/09/19 21:27 Chief Complaint (Nursing): Substance Abuse History Per: Patient History/Exam Limitations: no limitations Onset/Duration Of Symptoms: Hrs Current Symptoms Are (Timing): Still Present Suicide/Self Injury Attempted (Context): None Modifying Factor(s): Alcohol Severity: None Past Medical History Reviewed: Historical Data, Nursing Documentation, Vital Signs Vital Signs: Last Vital Signs Temp 98.0 F 01/09/19 21:20 Pulse 97 H 01/09/19 21:20 Resp 20 01/09/19 21:20 BP 142/83 01/09/19 21:20 Pulse Ox 99 01/09/19 21:20 - Medical History PMH: Anxiety, Arthritis, Bronchitis, CAD, Depression, Diabetes (Pt. did not disclose to securities underwriter, not aware), Fractures, Gastritis, Gall Bladder Disease (s/p cholecystectomy), HTN, Post Traumatic Stress Disorder, Rheumatoid Arthritis, Seizures, Chronic Pain Denies: Chronic Kidney Disease Surgical History: Cholecystectomy - [facility] Procedures ALCOHOL DETOXIFICATION (07/04/15) APPLICATION OF SPLINT (03/20/13) CLOSURE SKIN & SUBCUTANEOUS NEC (08/14/13) DETACHMENT AT RIGHT FOOT, PARTIAL 2ND RAY, OPEN APPROACH (11/14/18) DETOXIFICATION SERVICES FOR SUBSTANCE ABUSE TREATMENT (03/22/16) ESOPHAGOGASTRODUODENOSCOPY [EGD] W/CLOSED BIOPSY (02/16/15) INSERTION OF ENDOTRACHEAL AIRWAY INTO TRACHEA, VIA OPENING (09/11/18) OTHER GROUP THERAPY (03/12/13) PHYSICAL THERAPY NEC (07/04/15) RESPIRATORY VENTILATION, 24-96 CONSECUTIVE HOURS (09/11/18) TETANUS TOXOID ADMINIST (01/19/14) Family History: States: No Known Family Hx - Social History Hx Tobacco Use: No Hx Alcohol Use: Yes Hx Substance Use: No - Immunization History Hx Tetanus Toxoid Vaccination: No Hx Influenza Vaccination: No Hx Pneumococcal Vaccination: No Review Of Systems Except As Marked, All Systems Reviewed And Found Negative. Constitutional: Negative for: Fever, Chills Cardiovascular: Negative for: Chest Pain, Palpitations Respiratory: Negative for: Cough, Shortness of Breath Gastrointestinal: Negative for: Nausea, Vomiting, Abdominal Pain, Diarrhea Neurological: Positive for: Other (alcohol intoxication) Physical Exam - Physical Exam Appears: Non-toxic, No Acute Distress Skin: Normal Color, Warm Head: Atraumatic, Normacephalic Eye(s): bilateral: Normal Inspection, PERRL, EOMI Nose: Normal Oral Mucosa: Moist, Other (alcohol on breath) Neck: Normal, Supple Chest: Symmetrical, No Tenderness Cardiovascular: Rhythm Regular, No Murmur Respiratory: Normal Breath Sounds, No Rales, No Rhonchi, No Wheezing Extremity: Other (able to climb into wheelchair without difficulty) Neurological/Psych: Oriented x3, Normal Speech, Normal Cognition ED Course And Treatment O2 Sat by Pulse Oximetry: 99 (RA) Pulse Ox Interpretation: Normal Medical Decision Making Medical Decision Making: typical alcohol abuse, malingering no acute issues wheeled himself into ED pt ambulates regularly depise wheelchair Plan: Glucose POC Disposition Doctor Will See Patient In The: Office Counseled Patient/Family Regarding: Studies Performed, Diagnosis - Disposition Referrals: Alcoholics Anonymous [Outside] [facility] [Outside] [facility] [Outside] Disposition: HOME/ ROUTINE Disposition Time: 21:32 Condition: GOOD Additional Instructions: seek AA seek nightly fci placement Instructions: Alcohol Use - When Is Drinking a Problem?, Alcohol Abuse and Alcoholism (DC) Forms: [facility] ([place]ovan) - Clinical Impression Clinical Impression: Alcoholism /alcohol abuse - Scribe Statement The provider has reviewed the documentation as recorded by the Scribe (Jewel Schaeffer) Provider Attestation: All medical record entries made by the Scribe were at my direction and personally dictated by me. I have reviewed the chart and agree that the record accurately reflects my personal performance of the history, physical exam, medical decision making, and the department course for this patient. I have also personally directed, reviewed, and agree with the discharge instructions and disposition.
[2019-01-09 22:40] VITALS: BP 133/85; PULSE 92; RESP 16; TEMP 98.3
[2019-01-09 23:37] VITALS: O2SAT 99
== END 2019-01-09 22:40 | disposition home or self-care (01) ==
LOC: C.ER 21:03
DX: F10.229 Alcohol dependence with intoxication, unspecified (principal)